=== PATIENT | male | born 1945 | race Caucasian/White ===

== ENCOUNTER 2016-06-11 06:17 | Day surgery (SDC) | payer OTHER ==
[2016-06-11 07:52] LABS: MCH 35.2 pg (25.7-33.7); MCHC 33.8 g/dl (32.0-35.9); MEAN CELL VOLUME 104.1 fl (80-96); MEAN PLT VOLUME 8.7 fl (7.5-11.1); PLATELET COUNT 116 K/MM3 (134-434); RDW 16.1 % (11.9-15.9); WHITE BLOOD COUNT 7.5 K/mm3 (4.0-10.0)
[2016-06-11] MEDS ORDERED: BORTEZOMIB (VELCADE) 2.5 MG/ML SUB-Q INJECTION SQ ONE (08:00)
[2016-06-11] MEDS ORDERED: ZOLEDRONIC ACID 4 MG in SODIUM CHLORIDE 100 ML IVPB ONE (08:00)
[2016-06-11 09:34] LABS: METAMYELOCYTE 1 % (0-2); TEAR DROP CELLS 1+
[2016-06-11 11:27] VITALS: BP 134/73; PULSE 102; BMI 30.8
[2016-06-11 12:03] VITALS: TEMP 97.4
== END 2016-06-11 12:00 | disposition home or self-care (01) ==
LOC: JONCCHEMO 06:17 → J7W 08:58 → JONCCHEMO 12:00
PROVIDERS: ATTEND Internal Medicine Hematology & Oncology
DX: Z51.11 Encounter for antineoplastic chemotherapy (principal); C90.01 Multiple myeloma in remission
CPT/HCPCS: 36415; 85025; 96401; 96413; J3489

== ENCOUNTER 2016-06-25 07:01 | Day surgery (SDC) | payer OTHER ==
[2016-06-25] MEDS ORDERED: BORTEZOMIB (VELCADE) 2.5 MG/ML SUB-Q INJECTION SQ ONE (08:00)
[2016-06-25 08:45] LABS: WHITE BLOOD COUNT 6.1 K/mm3 (4.0-10.0)
[2016-06-25 08:46] LABS: MCH 34.8 pg (25.7-33.7); MCHC 33.7 g/dl (32.0-35.9); MEAN CELL VOLUME 103.3 fl (80-96); MEAN PLT VOLUME 8.7 fl (7.5-11.1); PLATELET COUNT 125 K/MM3 (134-434); RDW 16.1 % (11.9-15.9)
[2016-06-25 12:28] VITALS: BP 129/72; PULSE 84; TEMP 98
== END 2016-06-25 14:38 | disposition home or self-care (01) ==
LOC: JONCCHEMO 07:01 → J7W 09:12 → JONCCHEMO 14:38
PROVIDERS: ATTEND Internal Medicine Hematology & Oncology
DX: Z51.11 Encounter for antineoplastic chemotherapy (principal); C90.02 Multiple myeloma in relapse
CPT/HCPCS: 96401; J9041; 36415; 85025

== ENCOUNTER 2016-07-08 07:02 | Day surgery (SDC) | payer OTHER ==
[2016-07-08] MEDS ORDERED: ACETAMINOPHEN 325 MG TABLET (FP) PO ONE (08:00)
[2016-07-08] MEDS ORDERED: DIPHENHYDRAMINE 25 MG in SODIUM CHLORIDE 50 ML IVPB ONE (08:00)
[2016-07-08] MEDS ORDERED: SODIUM CHLORIDE 250 ML IV ONE ×2 (08:00→12:00)
[2016-07-08 08:25] LABS: MCH 34.8 pg (25.7-33.7); MCHC 33.8 g/dl (32.0-35.9); MEAN PLT VOLUME 8.8 fl (7.5-11.1); PLATELET COUNT 116 K/MM3 (134-434); RDW 16.2 % (11.9-15.9)
[2016-07-08] MEDS ORDERED: IMMUNE GLOB GAM CAPRYLATE IVPB ONE (08:30)
[2016-07-08] MEDS ORDERED: IMMUNE GLOBULIN IVPB ONE (08:30)
[2016-07-08 09:47] VITALS: TEMP 98.1
[2016-07-08 10:36] LABS: CALCIUM 8.5 mg/dL (8.5-10.1); CREATININE 1.2 mg/dL (0.7-1.3)
[2016-07-08 10:40] LABS: ALBUMIN 3.5 g/dl (3.4-5.0); BILIRUBIN,DIRECT 0.1 mg/dL (0.0-0.2); BILIRUBIN,TOTAL 0.5 mg/dL (0.2-1.0); TOT PROT 5.8 g/dl (6.4-8.2); URIC ACID 3.4 mg/dL (2.6-7.2)
[2016-07-08 12:15] LABS: MAGNESIUM 2.3 mg/dL (1.8-2.4)
[2016-07-08 12:19] LABS: METAMYELOCYTE 2 % (0-2)
[2016-07-08 12:20] LABS: POLYCHROMASIA 1+
[2016-07-08 12:38] LABS: C-REACTIVE PROTEIN 0.7 MG/DL (0.00-0.3)
[2016-07-08 15:38] VITALS: BP 107/71; PULSE 68
[2016-07-10 00:09] LABS: A/G RATIO 1.4 (0.7-1.7); ALBUMIN 3.3 g/dL (2.9-4.4); BETA-2-MICROGLOBULIN 2.5 mg/L (0.6-2.4); GLOBULIN, TOTAL 2.4 g/dL (2.2-3.9); IGG IMMUNOGLOBULIN 339 mg/dL (700-1600); TOTAL PROTEIN 5.7 g/dL (6.0-8.5)
[2016-07-10 10:13] LABS: FREE KAP CHN UR 15.5 mg/L (1.35-24.19); FREE LAMB CHN UR 1.81 mg/L (0.24-6.66); KAPPA LAMBDA RATIO URIN 8.56 (2.04-10.37)
== END 2016-07-08 15:00 | disposition home or self-care (01) ==
LOC: JONCCHEMO 07:02 → J7W 09:04 → JONCCHEMO 15:00
PROVIDERS: ATTEND Internal Medicine Hematology & Oncology
PROC: 3E033GC Introduction of Other Therapeutic Substance into Peripheral Vein, Percutaneous Approach (ICD-10-PCS; principal; 2016-07-08)
DX: C90.00 Multiple myeloma not having achieved remission (principal)
CPT/HCPCS: 96365; 96366; J1561; 36415; 80048; 80076; 82232; 82306; 82784; 83615; 83735; 83883; 84155; 84165; 84550; 85025; 85651; 86140; J1459

== ENCOUNTER 2016-07-09 06:58 | Day surgery (SDC) | payer OTHER ==
[2016-07-09] MEDS ORDERED: ACETAMINOPHEN 325 MG TABLET (FP) PO ONE ×2 (08:00→09:30)
[2016-07-09] MEDS ORDERED: DIPHENHYDRAMINE 25 MG in SODIUM CHLORIDE 50 ML IVPB ONE (08:00)
[2016-07-09] MEDS ORDERED: BORTEZOMIB (VELCADE) 2.5 MG/ML SUB-Q INJECTION SQ ONE (08:00)
[2016-07-09] MEDS ORDERED: SODIUM CHLORIDE 250 ML IV ONE ×2 (08:00→12:00)
[2016-07-09] MEDS ORDERED: IMMUNE GLOB GAM CAPRYLATE IVPB ONE ×2 (08:30→10:00)
[2016-07-09] MEDS ORDERED: IMMUNE GLOBULIN IVPB ONE ×2 (08:30→10:00)
[2016-07-09] MEDS ORDERED: [UNRECOGNIZED DRUG - OTHER] IVPB ONE (08:30)
[2016-07-09] MEDS: ZOLEDRONIC ACID 4 MG in SODIUM CHLORIDE 100 ML IVPB ONE ×2 (09:28→15:22)
[2016-07-09 12:39] VITALS: TEMP 97.4
[2016-07-09 15:24] VITALS: BP 132/77; PULSE 86
== END 2016-07-09 15:26 | disposition home or self-care (01) ==
LOC: JONCCHEMO 06:58 → J7W 09:03 → JONCCHEMO 15:26
PROVIDERS: ATTEND Internal Medicine Hematology & Oncology
PROC: 3E01305 Introduction of Other Antineoplastic into Subcutaneous Tissue, Percutaneous Approach (ICD-10-PCS; principal; 2016-07-09)
PROC: 3E033GC Introduction of Other Therapeutic Substance into Peripheral Vein, Percutaneous Approach (ICD-10-PCS; 2016-07-09)
DX: Z51.11 Encounter for antineoplastic chemotherapy (principal); C90.00 Multiple myeloma not having achieved remission
CPT/HCPCS: 96365; 96366; 96367; 96401; J1459; J1561; J3489; J9041

== ENCOUNTER 2016-07-23 06:53 | Day surgery (SDC) | payer OTHER ==
[2016-07-23] MEDS ORDERED: BORTEZOMIB (VELCADE) 2.5 MG/ML SUB-Q INJECTION SQ ONE (08:00)
[2016-07-23 08:54] LABS: BASOPHIL 0.5 % (0-2.0); EOSINOPHIL 0.2 % (0-4.5); MCH 34.8 pg (25.7-33.7); MCHC 34.4 g/dl (32.0-35.9); MEAN PLT VOLUME 8.8 fl (7.5-11.1); PLATELET COUNT 113 K/MM3 (134-434); RDW 15.7 % (11.9-15.9); WHITE BLOOD COUNT 9.5 K/mm3 (4.0-10.0)
[2016-07-23 09:23] VITALS: BP 145/89; PULSE 65; TEMP 98.4
== END 2016-07-23 09:39 | disposition home or self-care (01) ==
LOC: JONCCHEMO 06:53 → J7W 09:05 → JONCCHEMO 09:39
PROVIDERS: ATTEND Internal Medicine Hematology & Oncology
DX: Z51.11 Encounter for antineoplastic chemotherapy (principal); C90.00 Multiple myeloma not having achieved remission
CPT/HCPCS: 96401; J9041; 36415; 85025

== ENCOUNTER 2016-08-06 07:08 | Day surgery (SDC) | payer OTHER ==
[2016-08-06] MEDS ORDERED: BORTEZOMIB (VELCADE) 2.5 MG/ML SUB-Q INJECTION SQ ONE (08:00)
[2016-08-06] MEDS ORDERED: ZOLEDRONIC ACID 4 MG in SODIUM CHLORIDE 100 ML IVPB ONE (08:00)
[2016-08-06 08:15] LABS: BASOPHIL 0.7 % (0-2.0); EOSINOPHIL 0.1 % (0-4.5); MCH 34.6 pg (25.7-33.7); MCHC 33.9 g/dl (32.0-35.9); MEAN CELL VOLUME 101.9 fl (80-96); MEAN PLT VOLUME 9.4 fl (7.5-11.1); PLATELET COUNT 105 K/MM3 (134-434); RDW 15.7 % (11.9-15.9); WHITE BLOOD COUNT 4.9 K/mm3 (4.0-10.0)
[2016-08-06 09:03] VITALS: BP 122/78; PULSE 86; TEMP 97.9
[2016-08-06 10:50] LABS: CALCIUM 8.4 mg/dL (8.5-10.1); CREATININE 1.5 mg/dL (0.7-1.3); URIC ACID 2.8 mg/dL (2.6-7.2)
[2016-08-06 11:11] LABS: ALBUMIN 3.3 g/dl (3.4-5.0); BILIRUBIN,DIRECT 0.1 mg/dL (0.0-0.2); BILIRUBIN,TOTAL 0.4 mg/dL (0.2-1.0); TOT PROT 6.9 g/dl (6.4-8.2)
== END 2016-08-06 18:59 | disposition home or self-care (01) ==
LOC: JONCCHEMO 07:08 → J7W 08:56 → JONCCHEMO 18:59
PROVIDERS: ATTEND Internal Medicine Hematology & Oncology
DX: Z51.11 Encounter for antineoplastic chemotherapy (principal); C90.01 Multiple myeloma in remission
CPT/HCPCS: 96401; J9041; 36415; 80048; 80076; 84550; 85025

== ENCOUNTER 2016-08-20 07:30 | Day surgery (SDC) | payer OTHER ==
[2016-08-20] MEDS ORDERED: BORTEZOMIB (VELCADE) 2.5 MG/ML SUB-Q INJECTION SQ ONE (08:00)
[2016-08-20 08:27] LABS: BASOPHIL 0.3 % (0-2.0); EOSINOPHIL 0.4 % (0-4.5); MCH 34.8 pg (25.7-33.7); MEAN CELL VOLUME 102.4 fl (80-96); MEAN PLT VOLUME 9.1 fl (7.5-11.1); PLATELET COUNT 122 K/MM3 (134-434); RDW 16.2 % (11.9-15.9); WHITE BLOOD COUNT 6.7 K/mm3 (4.0-10.0)
[2016-08-20 09:08] VITALS: BP 123/77; PULSE 77; TEMP 98.1
== END 2016-08-20 09:40 | disposition home or self-care (01) ==
LOC: JONCCHEMO 07:30 → J7W 09:02 → JONCCHEMO 09:40
PROVIDERS: ATTEND Internal Medicine Hematology & Oncology
DX: Z51.11 Encounter for antineoplastic chemotherapy (principal); C90.01 Multiple myeloma in remission
CPT/HCPCS: 96401; J9041; 36415; 85025

== ENCOUNTER 2016-09-03 07:35 | Day surgery (SDC) | payer OTHER ==
[2016-09-03] MEDS ORDERED: BORTEZOMIB (VELCADE) 2.5 MG/ML SUB-Q INJECTION SQ ONE (08:00)
[2016-09-03 08:39] LABS: EOSINOPHIL 0.4 % (0-4.5); MCH 34.4 pg (25.7-33.7); MCHC 33.1 g/dl (32.0-35.9); MEAN CELL VOLUME 103.9 fl (80-96); MEAN PLT VOLUME 9.2 fl (7.5-11.1); NEUTROPHILS 88.9 % (42.8-82.8); PLATELET COUNT 123 K/MM3 (134-434); RDW 16.9 % (11.9-15.9); WHITE BLOOD COUNT 4.8 K/mm3 (4.0-10.0)
[2016-09-03 09:23] VITALS: BP 121/73; PULSE 60; TEMP 98.2
[2016-09-03 10:52] LABS: ALBUMIN 3.6 g/dl (3.4-5.0); BILIRUBIN,DIRECT 0.1 mg/dL (0.0-0.2); BILIRUBIN,TOTAL 0.5 mg/dL (0.2-1.0); MAGNESIUM 2.4 mg/dL (1.8-2.4); TOT PROT 6.5 g/dl (6.4-8.2)
[2016-09-05 06:06] LABS: FREE LAMB CHN UR 5.67 mg/L (0.24-6.66); KAPPA LAMBDA RATIO URIN 18.34 (2.04-10.37)
== END 2016-09-03 09:48 | disposition home or self-care (01) ==
LOC: JONCCHEMO 07:35 → J7W 09:18 → JONCCHEMO 09:48
PROVIDERS: ATTEND Internal Medicine Hematology & Oncology
DX: Z51.11 Encounter for antineoplastic chemotherapy (principal); C90.00 Multiple myeloma not having achieved remission; E85.8 Other amyloidosis
CPT/HCPCS: 36415; 80076; 82784; 83615; 83735; 83883; 85025; 96401; J9041

== ENCOUNTER 2016-09-24 07:21 | Day surgery (SDC) | payer OTHER ==
[2016-09-24 08:51] LABS: BASOPHIL 0.5 % (0-2.0); EOSINOPHIL 0.1 % (0-4.5); MCH 34.4 pg (25.7-33.7); MCHC 33.4 g/dl (32.0-35.9); MEAN CELL VOLUME 102.8 fl (80-96); MEAN PLT VOLUME 8.1 fl (7.5-11.1); NEUTROPHILS 87.6 % (42.8-82.8); PLATELET COUNT 145 K/MM3 (134-434); RDW 16.4 % (11.9-15.9); WHITE BLOOD COUNT 5.9 K/mm3 (4.0-10.0)
[2016-09-24 09:15] LABS: ALBUMIN 3.8 g/dl (3.4-5.0); BILIRUBIN,DIRECT 0.2 mg/dL (0.0-0.2); BILIRUBIN,TOTAL 0.8 mg/dL (0.2-1.0); CALCIUM 9.5 mg/dL (8.5-10.1); CREATININE 1.6 mg/dL (0.7-1.3); TOT PROT 6.9 g/dl (6.4-8.2)
[2016-09-24] MEDS ORDERED: BORTEZOMIB (VELCADE) 2.5 MG/ML SUB-Q INJECTION SQ ONE (10:00)
[2016-09-24 11:13] VITALS: BP 108/79; PULSE 87; TEMP 97.8
== END 2016-09-24 11:14 | disposition home or self-care (01) ==
LOC: JONCCHEMO 07:21 → J7W 10:06 → JONCCHEMO 11:14
PROVIDERS: ATTEND Internal Medicine Hematology & Oncology
DX: Z51.11 Encounter for antineoplastic chemotherapy (principal); C90.01 Multiple myeloma in remission
CPT/HCPCS: 36415; 80053; 80076; 85025; 96401; J9041

== ENCOUNTER 2016-10-04 12:14 | Emergency (ER) | payer OTHER ==
[2016-10-04 12:18] VITALS: BP 160/76; PULSE 55; TEMP 98.2; BMI 29.8
[2016-10-04] MEDS ORDERED: OXYCODONE/APAP 5/325MG COMBO TABLET PO ONE (13:31)
[2016-10-04] MEDS ORDERED: OXYCODONE/APAP 5/325MG COMBO TABLET ONE (13:35)
--- NOTE | 2016-10-04 13:36 | PDOC ---
History of Present Illness - General Chief Complaint: Eye Problem Stated Complaint: EYE PROBLEM Time Seen by Provider: 10/04/16 12:33 History Source: Patient Exam Limitations: No Limitations - History of Present Illness Initial Comments: 10/04/16 13:54 came for evaluation of severe left eye pain that was onset 2 days ago. States has become more red, more painful, and had some whitish discharge this morning. Denies fever, states vision has become more cloudy, and has concerns as that was the postoperative eye a few years ago status post glaucoma window for acute glaucoma treatment. Patient denies any recent trauma, denies any recent illness , but states pain is exquisite and OxyContin at home did not help resolved. 10/04/16 17:53 Timing/Duration: other (2 days) Severity: moderate Associated Symptoms: reports: denies symptoms Past History - Travel Traveled outside of the country in the last 30 days: No Close contact w/someone who was outside of country & ill: No - Past Medical History Allergies/Adverse Reactions: Allergies Allergy/AdvReac Type Severity Reaction Status Date / Time No Known Allergies Allergy Unverified 10/04/16 12:18 Home Medications: Ambulatory Orders Allopurinol 300 mg PO ASDIR 10/04/16 Aspirin [ASA -] 81 mg PO DAILY 10/04/16 Aspirin/Dipyridamole [Aggrenox -] 1 combo PO BID 10/04/16 Atorvastatin Ca [Lipitor] 40 mg PO HS 10/04/16 Bortezomib [Velcade] 0.1 mg IV ASDIR 10/04/16 Dexamethasone [Decadron -] 4 mg PO Q6H 10/04/16 Gabapentin 400 mg PO ASDIR 10/04/16 Oxycodone Sr [Oxycontin] 10 mg PO BID 10/04/16 Pantoprazole Sodium [Protonix -] 40 mg PO DAILY 10/04/16 Prednisone 10 mg PO ASDIR 10/04/16 Zoledronic Acid [Zometa -] 4 mg IVPB ASDIR 10/04/16 Zoledronic Acid [Zometa] 4 mg IVPB ONCE 10/04/16 Cancer: Yes (MULTIPLE MYELOMA) Hypercholesterolemia: Yes Other medical history: GLAUCOMA - Psycho/Social/Smoking Cessation Hx Anxiety: No Suicidal Ideation: No Smoking History: Never smoked Hx Alcohol Use: No Drug/Substance Use Hx: No Substance Use Type: None Hx Substance Use Treatment: No Review of Systems - Review of Systems Able to Perform ROS?: Yes Is the patient limited Luxembourgish proficient: Yes Constitutional: Yes: Symptoms Reported, See HPI, Malaise. No: Fever HEENTM: Yes: Symptoms Reported, See HPI, Eye Pain, Other (glaucoma surgery 2 years ago in left eye). No: Recent change in vision Respiratory: Yes: See HPI All Other Systems: Reviewed and Negative *Physical Exam - Vital Signs Last Vital Signs Temp Pulse Resp BP Pulse Ox 98.2 F 55 L 20 160/76 96 10/04/16 12:15 10/04/16 12:15 10/04/16 12:15 10/04/16 12:15 10/04/16 12:15 - Physical Exam General Appearance: Yes: Nourished, Appropriately Dressed, Apparent Distress, Moderate Distress HEENT: positive: Normal ENT Inspection, TMs Normal, Pharynx Normal, Other ( injected conjunctiva and lids borders, with whitish drainage. Has some cloudiness to his cornea.). negative: REGINALD, Rhinorrhea, Sinus Tenderness Neck: positive: Tender, Supple. 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 We will add tobramycin drops to cover possible conjunctivitis. Patient understands plan, will use his OxyContin for pain relief as needed at home, and will follow-up tomorrow 10/04/16 17:56 *DC/Admit/Observation/Transfer Diagnosis at time of Disposition: Acute bacterial conjunctivitis of left eye - Discharge Dispostion Disposition: HOME Condition at time of disposition: Stable Admit: No - Referrals Referrals: Avtar Melchor MD [Primary Care Provider] - - Patient Instructions Printed Discharge Instructions: DI for Red Eye Additional Instructions: Rest, avoid rubbing eyes Wash hands frequently as this is very contagious Wash hands, use eye drops as directed, wash hands after use Do not share eyedrops with other person to may become infected as this will infect them Avoid contact with others until redness and discharge is gone from eyes. Pred forte 1% 1 drop to affected eye 4 times a day Followup with ophthalmology tomorrow for thorough exam
[2016-10-04] MEDS ORDERED: ONDANSETRON *ODT* 4 MG TABLET ONE (13:41)
[2016-10-04] MEDS ORDERED: ONDANSETRON *ODT* 4 MG TABLET SL ONE (13:52)
[2016-10-04] MEDS ORDERED: KETOROLAC TROMETHAMINE 60 MG/2 ML VIAL IM ONE (13:52)
[2016-10-04] MEDS ORDERED: KETOROLAC TROMETHAMINE 60 MG/2 ML VIAL ONE (13:53)
[2016-10-04] MEDS ORDERED: prednisoLONE ACETATE 1% OPHTH SUSP 5 ML BOTTLE OS STA (14:14)
[2016-10-04] MEDS ORDERED: TOBRAMYCIN 0.3% OPHTH SOLN 5 ML BOTTLE OD ONE (14:16)
[2016-10-04] MEDS ORDERED: TOBRAMYCIN 0.3% OPHTH SOLN 5 ML BOTTLE ONE (14:23)
== END 2016-10-04 14:34 | disposition home or self-care (01) ==
LOC: JERFT 12:14
PROC: 3E0233Z Introduction of Anti-inflammatory into Muscle, Percutaneous Approach (ICD-10-PCS; principal; 2016-10-04)
DX: H10.32 Unspecified acute conjunctivitis, left eye (principal); B96.89 Other specified bacterial agents as the cause of diseases classified elsewhere
CPT/HCPCS: 96372; 99281-25

== ENCOUNTER 2016-10-07 07:07 | Day surgery (SDC) | payer OTHER ==
[2016-10-07 09:11] LABS: BASOPHIL 0.9 % (0-2.0); MCH 34.2 pg (25.7-33.7); MCHC 33.1 g/dl (32.0-35.9); MEAN CELL VOLUME 103.4 fl (80-96); MEAN PLT VOLUME 8.3 fl (7.5-11.1); NEUTROPHILS 80.6 % (42.8-82.8); PLATELET COUNT 133 K/MM3 (134-434); RDW 17.2 % (11.9-15.9); WHITE BLOOD COUNT 8.8 K/mm3 (4.0-10.0)
[2016-10-07 09:36] LABS: ALBUMIN 3.7 g/dl (3.4-5.0); ALK PHOS 72 U/L (45-117); ANION GAP 6 (8-16); BILIRUBIN,TOTAL 0.7 mg/dL (0.2-1.0); CO2 28 mmol/L (21-32); CREATININE 1.2 mg/dL (0.7-1.3); GLUCOSE,RANDOM 113 mg/dL (74-106); MAGNESIUM 2.3 mg/dL (1.8-2.4); SGOT/AST 14 U/L (15-37); SGPT/ALT 20 U/L (12-78); TOT PROT 6.4 g/dl (6.4-8.2)
[2016-10-07] MEDS ORDERED: DIPHENHYDRAMINE 25 MG in SODIUM CHLORIDE 50 ML IVPB ONE (10:00)
[2016-10-07] MEDS ORDERED: ACETAMINOPHEN 325 MG TABLET (FP) PO ONE (10:00)
[2016-10-07] MEDS ORDERED: SODIUM CHLORIDE 250 ML IV ONE ×2 (10:00→14:45)
[2016-10-07 10:18] VITALS: TEMP 98.1
[2016-10-07] MEDS ORDERED: IMMUNE GLOBULIN IVPB SCH (10:30)
[2016-10-07 15:09] VITALS: PULSE 69
[2016-10-07 15:12] VITALS: BP 111/51
== END 2016-10-07 15:18 | disposition home or self-care (01) ==
LOC: JONCCHEMO 07:07 → J7W 10:08 → JONCCHEMO 15:18
PROVIDERS: ATTEND Internal Medicine Hematology & Oncology
PROC: 3E033GC Introduction of Other Therapeutic Substance into Peripheral Vein, Percutaneous Approach (ICD-10-PCS; principal; 2016-10-07)
PROC: 3E033GC Introduction of Other Therapeutic Substance into Peripheral Vein, Percutaneous Approach (ICD-10-PCS; 2016-10-07)
PROC: 3E033GC Introduction of Other Therapeutic Substance into Peripheral Vein, Percutaneous Approach (ICD-10-PCS; 2016-10-07)
DX: C90.00 Multiple myeloma not having achieved remission (principal)
CPT/HCPCS: 96365; 96366; 96375; J1561; 36415; 80053; 83735; 85025; J1459

== ENCOUNTER 2016-10-08 07:42 | Day surgery (SDC) | payer OTHER ==
[2016-10-08] MEDS ORDERED: BORTEZOMIB (VELCADE) 2.5 MG/ML SUB-Q INJECTION SQ ONE (10:00)
[2016-10-08] MEDS ORDERED: DIPHENHYDRAMINE 25 MG in SODIUM CHLORIDE 50 ML IVPB ONE (10:00)
[2016-10-08] MEDS ORDERED: SODIUM CHLORIDE 250 ML IV ONE ×3 (10:00→16:00)
[2016-10-08] MEDS ORDERED: ACETAMINOPHEN 325 MG TABLET (FP) PO ONE (10:00)
[2016-10-08] MEDS ORDERED: IMMUNE GLOBULIN IVPB SCH (10:30)
[2016-10-08 13:42] VITALS: BP 127/68; PULSE 60; TEMP 98.1
== END 2016-10-08 14:11 | disposition home or self-care (01) ==
LOC: JONCCHEMO 07:42 → J7W 08:49 → JONCCHEMO 14:11
PROVIDERS: ATTEND Internal Medicine Hematology & Oncology
PROC: 3E01305 Introduction of Other Antineoplastic into Subcutaneous Tissue, Percutaneous Approach (ICD-10-PCS; principal; 2016-10-08)
PROC: 3E033GC Introduction of Other Therapeutic Substance into Peripheral Vein, Percutaneous Approach (ICD-10-PCS; 2016-10-08)
DX: Z51.11 Encounter for antineoplastic chemotherapy (principal); C90.00 Multiple myeloma not having achieved remission
CPT/HCPCS: 96365; 96366; 96375; 96401; J1561; J9041; J1459

== ENCOUNTER 2016-10-22 07:33 | Day surgery (SDC) | payer OTHER ==
[2016-10-22 08:40] LABS: BASOPHIL 0.4 % (0-2.0); EOSINOPHIL 0.7 % (0-4.5); MCH 34.2 pg (25.7-33.7); MEAN CELL VOLUME 100.7 fl (80-96); MEAN PLT VOLUME 9.8 fl (7.5-11.1); NEUTROPHILS 89.4 % (42.8-82.8); PLATELET COUNT 114 K/MM3 (134-434); WHITE BLOOD COUNT 6.9 K/mm3 (4.0-10.0)
[2016-10-22 09:04] LABS: ALBUMIN 3.3 g/dl (3.4-5.0); ANION GAP 9 (8-16); BILIRUBIN,TOTAL 0.5 mg/dL (0.2-1.0); CALCIUM 8.9 mg/dL (8.5-10.1); CO2 23 mmol/L (21-32); CREATININE 1.4 mg/dL (0.7-1.3); GLUCOSE,RANDOM 192 mg/dL (74-106); MAGNESIUM 2.2 mg/dL (1.8-2.4); SGOT/AST 24 U/L (15-37); SGPT/ALT 19 U/L (12-78); TOT PROT 7.6 g/dl (6.4-8.2)
[2016-10-22 09:07] LABS: ALK PHOS 68 U/L (45-117)
[2016-10-22 09:47] VITALS: BP 110/71; PULSE 52; TEMP 97.9
[2016-10-22] MEDS ORDERED: BORTEZOMIB (VELCADE) 2.5 MG/ML SUB-Q INJECTION SQ ONE (10:00)
== END 2016-10-22 09:58 | disposition home or self-care (01) ==
LOC: JONCCHEMO 07:33 → J7W 09:39 → JONCCHEMO 09:58
PROVIDERS: ATTEND Internal Medicine Hematology & Oncology
DX: Z51.11 Encounter for antineoplastic chemotherapy (principal); C90.00 Multiple myeloma not having achieved remission; I10 Essential (primary) hypertension; E78.00 Pure hypercholesterolemia, unspecified; H40.9 Unspecified glaucoma; G62.9 Polyneuropathy, unspecified; Z86.73 Personal history of transient ischemic attack (TIA), and cerebral infarction without residual deficits; M51.36 Other intervertebral disc degeneration, lumbar region
CPT/HCPCS: 36415; 80053; 83735; 85025; 96401; J9041

== ENCOUNTER 2016-11-05 07:47 | Day surgery (SDC) | payer OTHER ==
[2016-11-05] MEDS ORDERED: BORTEZOMIB (VELCADE) 2.5 MG/ML SUB-Q INJECTION SQ ONE (08:00)
[2016-11-05 08:32] LABS: BASOPHIL 0.6 % (0-2.0); MCH 33.7 pg (25.7-33.7); MCHC 33.6 g/dl (32.0-35.9); MEAN CELL VOLUME 100.4 fl (80-96); MEAN PLT VOLUME 8.9 fl (7.5-11.1); NEUTROPHILS 91.2 % (42.8-82.8); PLATELET COUNT 101 K/MM3 (134-434); RDW 16.6 % (11.9-15.9); WHITE BLOOD COUNT 8.3 K/mm3 (4.0-10.0)
[2016-11-05 09:02] LABS: ALBUMIN 3.3 g/dl (3.4-5.0); ALK PHOS 71 U/L (45-117); ANION GAP 9 (8-16); BILIRUBIN,DIRECT 0.1 mg/dL (0.0-0.2); BILIRUBIN,TOTAL 0.4 mg/dL (0.2-1.0); CALCIUM 9.1 mg/dL (8.5-10.1); CO2 24 mmol/L (21-32); CREATININE 1.2 mg/dL (0.7-1.3); GLUCOSE,RANDOM 175 mg/dL (74-106); MAGNESIUM 2.4 mg/dL (1.8-2.4); SGOT/AST 17 U/L (15-37); SGPT/ALT 19 U/L (12-78); TOT PROT 6.9 g/dl (6.4-8.2)
[2016-11-05 09:21] VITALS: TEMP 98.2
[2016-11-05 09:33] VITALS: BP 115/76; PULSE 52
== END 2016-11-05 09:42 | disposition home or self-care (01) ==
LOC: JONCCHEMO 07:47 → J7W 09:14 → JONCCHEMO 09:42
PROVIDERS: ATTEND Internal Medicine Hematology & Oncology
DX: Z51.11 Encounter for antineoplastic chemotherapy (principal); C90.00 Multiple myeloma not having achieved remission
CPT/HCPCS: 96401; J9041; 36415; 80053; 80076; 83735; 85025

== ENCOUNTER 2016-11-19 07:29 | Day surgery (SDC) | payer OTHER ==
[2016-11-19] MEDS ORDERED: BORTEZOMIB (VELCADE) 2.5 MG/ML SUB-Q INJECTION SQ ONE (08:00)
[2016-11-19 09:00] LABS: BASOPHIL 0.3 % (0-2.0); EOSINOPHIL 0.1 % (0-4.5); MCHC 33.1 g/dl (32.0-35.9); MEAN CELL VOLUME 102.7 fl (80-96); MEAN PLT VOLUME 8.7 fl (7.5-11.1); NEUTROPHILS 92.1 % (42.8-82.8); PLATELET COUNT 109 K/MM3 (134-434); RDW 16.6 % (11.9-15.9); WHITE BLOOD COUNT 9.1 K/mm3 (4.0-10.0)
[2016-11-19 09:25] LABS: ALBUMIN 3.4 g/dl (3.4-5.0); ANION GAP 6 (8-16); BILIRUBIN,DIRECT 0.2 mg/dL (0.0-0.2); BILIRUBIN,TOTAL 0.5 mg/dL (0.2-1.0); CALCIUM 9.2 mg/dL (8.5-10.1); CO2 28 mmol/L (21-32); CREATININE 1.2 mg/dL (0.7-1.3); GLUCOSE,RANDOM 175 mg/dL (74-106); MAGNESIUM 2.5 mg/dL (1.8-2.4); SGOT/AST 21 U/L (15-37); SGPT/ALT 30 U/L (12-78); TOT PROT 6.8 g/dl (6.4-8.2)
[2016-11-19 09:26] LABS: ALK PHOS 74 U/L (45-117)
[2016-11-19 14:23] VITALS: BP 127/74; PULSE 58; TEMP 98.5
== END 2016-11-19 10:30 | disposition home or self-care (01) ==
LOC: JONCCHEMO 07:29 → J7W 09:32 → JONCCHEMO 10:30
PROVIDERS: ATTEND Internal Medicine Hematology & Oncology
DX: Z51.11 Encounter for antineoplastic chemotherapy (principal); C90.00 Multiple myeloma not having achieved remission
CPT/HCPCS: 36415; 80053; 80076; 83735; 85025; 96401; J9041

== ENCOUNTER 2016-12-03 08:00 | Day surgery (SDC) | payer OTHER ==
[2016-12-03 08:41] LABS: MCH 34.8 pg (25.7-33.7); MCHC 34.1 g/dl (32.0-35.9); MEAN CELL VOLUME 102.2 fl (80-96); MEAN PLT VOLUME 8.9 fl (7.5-11.1); PLATELET COUNT 137 K/MM3 (134-434); RDW 17.3 % (11.9-15.9); WHITE BLOOD COUNT 8.4 K/mm3 (4.0-10.0)
[2016-12-03 09:08] LABS: ALBUMIN 3.5 g/dl (3.4-5.0); ANION GAP 10 (8-16); BILIRUBIN,DIRECT 0.2 mg/dL (0.0-0.2); BILIRUBIN,TOTAL 0.8 mg/dL (0.2-1.0); CALCIUM 9.5 mg/dL (8.5-10.1); CO2 25 mmol/L (21-32); CREATININE 1.2 mg/dL (0.7-1.3); GLUCOSE,RANDOM 176 mg/dL (74-106); MAGNESIUM 2.3 mg/dL (1.8-2.4); SGOT/AST 12 U/L (15-37); SGPT/ALT 24 U/L (12-78); TOT PROT 6.5 g/dl (6.4-8.2)
[2016-12-03 09:09] LABS: ALK PHOS 79 U/L (45-117)
[2016-12-03 09:36] VITALS: BP 115/68; PULSE 65; TEMP 97.7
[2016-12-03] MEDS ORDERED: BORTEZOMIB (VELCADE) 2.5 MG/ML SUB-Q INJECTION SQ ONE (10:00)
[2016-12-03 12:46] LABS: METAMYELOCYTE 2 % (0-2); MYELOCYTE 1 % (0-2)
== END 2016-12-03 10:30 | disposition home or self-care (01) ==
LOC: JONCCHEMO 08:00 → J7W 09:08 → JONCCHEMO 10:30
PROVIDERS: ATTEND Internal Medicine Hematology & Oncology
DX: Z51.11 Encounter for antineoplastic chemotherapy (principal); C90.02 Multiple myeloma in relapse; I10 Essential (primary) hypertension; E78.00 Pure hypercholesterolemia, unspecified; H40.9 Unspecified glaucoma; G62.9 Polyneuropathy, unspecified; Z86.73 Personal history of transient ischemic attack (TIA), and cerebral infarction without residual deficits; M51.36 Other intervertebral disc degeneration, lumbar region
CPT/HCPCS: 36415; 80053; 80076; 83735; 85025; 96401; J9041

== ENCOUNTER 2016-12-17 07:46 | Day surgery (SDC) | payer OTHER ==
[2016-12-17 08:33] LABS: BASOPHIL 0.6 % (0-2.0); MCH 34.5 pg (25.7-33.7); MCHC 33.3 g/dl (32.0-35.9); MEAN CELL VOLUME 103.7 fl (80-96); MEAN PLT VOLUME 8.9 fl (7.5-11.1); NEUTROPHILS 91.7 % (42.8-82.8); PLATELET COUNT 119 K/MM3 (134-434); RDW 17.8 % (11.9-15.9); WHITE BLOOD COUNT 9.8 K/mm3 (4.0-10.0)
[2016-12-17 09:05] LABS: ALBUMIN 3.6 g/dl (3.4-5.0); ALK PHOS 75 U/L (45-117); ANION GAP 4 (8-16); BILIRUBIN,DIRECT 0.2 mg/dL (0.0-0.2); BILIRUBIN,TOTAL 0.8 mg/dL (0.2-1.0); CALCIUM 8.9 mg/dL (8.5-10.1); CO2 26 mmol/L (21-32); CREATININE 1.1 mg/dL (0.7-1.3); GLUCOSE,RANDOM 181 mg/dL (74-106); MAGNESIUM 2.4 mg/dL (1.8-2.4); SGOT/AST 12 U/L (15-37); SGPT/ALT 22 U/L (12-78); TOT PROT 6.5 g/dl (6.4-8.2)
[2016-12-17 09:19] VITALS: TEMP 97.6
[2016-12-17 09:21] VITALS: BP 124/79; PULSE 61
[2016-12-17] MEDS ORDERED: BORTEZOMIB (VELCADE) 2.5 MG/ML SUB-Q INJECTION SQ ONE (10:00)
== END 2016-12-17 09:27 | disposition home or self-care (01) ==
LOC: JONCCHEMO 07:46 → J7W 09:02 → JONCCHEMO 09:27
PROVIDERS: ATTEND Internal Medicine Hematology & Oncology
DX: Z51.11 Encounter for antineoplastic chemotherapy (principal); C90.00 Multiple myeloma not having achieved remission
CPT/HCPCS: 36415; 80053; 80076; 83735; 85025; 96401; J9041

== ENCOUNTER 2016-12-30 07:34 | Day surgery (SDC) | payer OTHER ==
[2016-12-30] MEDS ORDERED: SODIUM CHLORIDE 250 ML IV ONE ×2 (08:00→12:00)
[2016-12-30] MEDS ORDERED: ACETAMINOPHEN 325 MG TABLET (FP) PO ONE (08:00)
[2016-12-30] MEDS ORDERED: DIPHENHYDRAMINE 25 MG in SODIUM CHLORIDE 50 ML IVPB ONE (08:00)
[2016-12-30] MEDS ORDERED: IMMUNE GLOBULIN IVPB ONE (08:30)
[2016-12-30] MEDS ORDERED: IMMUNE GLOB GAM CAPRYLATE IVPB ONE (08:30)
[2016-12-30 08:54] LABS: MCH 34.4 pg (25.7-33.7); MCHC 33.4 g/dl (32.0-35.9); MEAN CELL VOLUME 103.2 fl (80-96); MEAN PLT VOLUME 8.5 fl (7.5-11.1); PLATELET COUNT 122 K/MM3 (134-434); RDW 17.8 % (11.9-15.9); WHITE BLOOD COUNT 9.9 K/mm3 (4.0-10.0)
[2016-12-30 09:20] LABS: ALBUMIN 3.4 g/dl (3.4-5.0); ANION GAP 9 (8-16); BILIRUBIN,DIRECT 0.1 mg/dL (0.0-0.2); BILIRUBIN,TOTAL 0.7 mg/dL (0.2-1.0); CALCIUM 8.7 mg/dL (8.5-10.1); CO2 27 mmol/L (21-32); GLUCOSE,RANDOM 127 mg/dL (74-106); MAGNESIUM 2.5 mg/dL (1.8-2.4); SGOT/AST 16 U/L (15-37); SGPT/ALT 30 U/L (12-78); TOT PROT 6.1 g/dl (6.4-8.2)
[2016-12-30 09:21] LABS: ALK PHOS 81 U/L (45-117)
[2016-12-30 10:17] VITALS: TEMP 97.7
[2016-12-30 11:56] LABS: MYELOCYTE 1 % (0-2); TOTAL CELLS COUNTED 100
[2016-12-30 17:24] VITALS: BP 128/64; PULSE 59
== END 2016-12-30 14:40 | disposition home or self-care (01) ==
LOC: JONCCHEMO 07:34 → J7W 09:43 → JONCCHEMO 14:40
PROVIDERS: ATTEND Internal Medicine Hematology & Oncology
PROC: 3E033WK Introduction of Immunostimulator into Peripheral Vein, Percutaneous (ICD-10-PCS; principal; 2016-12-30)
PROC: 3E033GC Introduction of Other Therapeutic Substance into Peripheral Vein, Percutaneous Approach (ICD-10-PCS; 2016-12-30)
PROC: 3E0337Z Introduction of Electrolytic and Water Balance Substance into Peripheral Vein, Percutaneous Approach (ICD-10-PCS; 2016-12-30)
DX: C90.00 Multiple myeloma not having achieved remission (principal)
CPT/HCPCS: 36415; 80053; 80076; 83735; 85025; 96361; 96365; 96366; 96367; 96375; 96415; 96417; J1459; J1561

== ENCOUNTER 2016-12-31 07:25 | Day surgery (SDC) | payer OTHER ==
[2016-12-31] MEDS ORDERED: BORTEZOMIB (VELCADE) 2.5 MG/ML SUB-Q INJECTION SQ ONE (08:00)
[2016-12-31] MEDS ORDERED: SODIUM CHLORIDE 250 ML IV ONE ×2 (08:30→14:00)
[2016-12-31] MEDS ORDERED: DIPHENHYDRAMINE 25 MG in SODIUM CHLORIDE 50 ML IVPB ONE (08:30)
[2016-12-31] MEDS ORDERED: ACETAMINOPHEN 325 MG TABLET (FP) PO ONE (08:30)
[2016-12-31] MEDS ORDERED: IMMUNE GLOB GAM CAPRYLATE IVPB ONE (09:00)
[2016-12-31] MEDS ORDERED: IMMUNE GLOBULIN IVPB ONE (09:00)
[2016-12-31 12:40] VITALS: TEMP 98.1
[2016-12-31 18:09] VITALS: BP 128/74; PULSE 55
== END 2016-12-31 14:40 | disposition home or self-care (01) ==
LOC: JONCCHEMO 07:25 → J7W 08:35 → JONCCHEMO 14:40
PROVIDERS: ATTEND Internal Medicine Hematology & Oncology
PROC: 3E01305 Introduction of Other Antineoplastic into Subcutaneous Tissue, Percutaneous Approach (ICD-10-PCS; principal; 2016-12-31)
PROC: 3E033WK Introduction of Immunostimulator into Peripheral Vein, Percutaneous (ICD-10-PCS; 2016-12-31)
PROC: 3E0337Z Introduction of Electrolytic and Water Balance Substance into Peripheral Vein, Percutaneous Approach (ICD-10-PCS; 2016-12-31)
DX: Z51.11 Encounter for antineoplastic chemotherapy (principal); C90.00 Multiple myeloma not having achieved remission
CPT/HCPCS: 96361; 96365; 96366; 96375; 96401; 96415; 96417; J1459; J1561; J9041

== ENCOUNTER 2017-01-13 08:01 | Day surgery (SDC) | payer OTHER ==
[2017-01-13 09:15] LABS: BASOPHIL 0.7 % (0-2.0); MCH 34.2 pg (25.7-33.7); MCHC 33.1 g/dl (32.0-35.9); MEAN CELL VOLUME 103.2 fl (80-96); MEAN PLT VOLUME 9.2 fl (7.5-11.1); NEUTROPHILS 88.5 % (42.8-82.8); PLATELET COUNT 100 K/MM3 (134-434); RDW 17.3 % (11.9-15.9); WHITE BLOOD COUNT 6.7 K/mm3 (4.0-10.0)
[2017-01-13 10:14] VITALS: BP 122/72
[2017-01-13 10:30] LABS: ALBUMIN 3.1 g/dl (3.4-5.0); ANION GAP 11 (8-16); BILIRUBIN,DIRECT 0.2 mg/dL (0.0-0.2); CALCIUM 8.8 mg/dL (8.5-10.1); CO2 24 mmol/L (21-32); CREATININE 1.2 mg/dL (0.7-1.3); GLUCOSE,RANDOM 241 mg/dL (74-106); MAGNESIUM 2.1 mg/dL (1.8-2.4); SGOT/AST 21 U/L (15-37); SGPT/ALT 28 U/L (12-78)
[2017-01-13 10:31] LABS: ALK PHOS 80 U/L (45-117); BILIRUBIN,TOTAL 0.6 mg/dL (0.2-1.0); TOT PROT 7.2 g/dl (6.4-8.2)
[2017-01-13] MEDS ORDERED: BORTEZOMIB (VELCADE) 2.5 MG/ML SUB-Q INJECTION SQ ONE (11:00)
[2017-01-13 13:56] VITALS: PULSE 59; TEMP 97.7
== END 2017-01-13 11:15 | disposition home or self-care (01) ==
LOC: JONCCHEMO 08:01 → J7W 09:59 → JONCCHEMO 11:15
PROVIDERS: ATTEND Internal Medicine Hematology & Oncology
DX: Z51.11 Encounter for antineoplastic chemotherapy (principal); C90.00 Multiple myeloma not having achieved remission
CPT/HCPCS: 36415; 80053; 80076; 83735; 85025; 96401; J9041

== ENCOUNTER 2017-01-28 07:18 | Day surgery (SDC) | payer OTHER ==
[2017-01-28 08:39] LABS: BASOPHIL 0.6 % (0-2.0); EOSINOPHIL 0.1 % (0-4.5); MCH 34.6 pg (25.7-33.7); MCHC 33.4 g/dl (32.0-35.9); MEAN CELL VOLUME 103.5 fl (80-96); MEAN PLT VOLUME 8.4 fl (7.5-11.1); PLATELET COUNT 96 K/MM3 (134-434); RDW 17.4 % (11.9-15.9); WHITE BLOOD COUNT 6.7 K/mm3 (4.0-10.0)
[2017-01-28 09:04] LABS: ALBUMIN 3.2 g/dl (3.4-5.0); ALK PHOS 91 U/L (45-117); ANION GAP 8 (8-16); BILIRUBIN,DIRECT 0.1 mg/dL (0.0-0.2); BILIRUBIN,TOTAL 0.5 mg/dL (0.2-1.0); CALCIUM 8.6 mg/dL (8.5-10.1); CO2 26 mmol/L (21-32); CREATININE 1.2 mg/dL (0.7-1.3); GLUCOSE,RANDOM 221 mg/dL (74-106); MAGNESIUM 2.3 mg/dL (1.8-2.4); SGOT/AST 24 U/L (15-37); SGPT/ALT 42 U/L (12-78); TOT PROT 6.6 g/dl (6.4-8.2)
[2017-01-28] MEDS ORDERED: BORTEZOMIB (VELCADE) 2.5 MG/ML SUB-Q INJECTION SQ ONE (10:00)
[2017-01-28 18:20] VITALS: TEMP 98.3
[2017-01-28 18:22] VITALS: BP 132/84; PULSE 55
[2017-01-30 00:06] LABS: PARIETAL CELL AB SCREEN 12.7 Units (0.0-20.0)
== END 2017-01-28 09:35 | disposition home or self-care (01) ==
LOC: JONCCHEMO 07:18 → J7W 09:20 → JONCCHEMO 09:35
PROVIDERS: ATTEND Internal Medicine Hematology & Oncology
DX: Z51.11 Encounter for antineoplastic chemotherapy (principal); C90.00 Multiple myeloma not having achieved remission
CPT/HCPCS: 36415; 80053; 80076; 83516; 83735; 85025; 86340; 96401; J9041

== ENCOUNTER 2017-03-08 07:13 | Day surgery (SDC) | payer OTHER ==
[2017-03-08 09:00] LABS: MCH 34.2 pg (25.7-33.7); MCHC 32.7 g/dl (32.0-35.9); MEAN CELL VOLUME 104.6 fl (80-96); PLATELET COUNT 92 K/MM3 (134-434); RDW 17.4 % (11.9-15.9); WHITE BLOOD COUNT 8.7 K/mm3 (4.0-10.0)
[2017-03-08 09:20] LABS: ALBUMIN 3.4 g/dl (3.4-5.0); ALK PHOS 105 U/L (45-117); ANION GAP 10 (8-16); BILIRUBIN,DIRECT 0.2 mg/dL (0.0-0.2); BILIRUBIN,TOTAL 0.6 mg/dL (0.2-1.0); CALCIUM 8.1 mg/dL (8.5-10.1); CO2 25 mmol/L (21-32); CREATININE 1.3 mg/dL (0.7-1.3); MAGNESIUM 2.4 mg/dL (1.8-2.4); SGOT/AST 65 U/L (15-37); SGPT/ALT 108 U/L (12-78); TOT PROT 6.3 g/dl (6.4-8.2)
[2017-03-08 09:31] LABS: GLUCOSE,RANDOM 369 mg/dL (74-106)
[2017-03-08] MEDS ORDERED: BORTEZOMIB (VELCADE) 2.5 MG/ML SUB-Q INJECTION SQ ONE (10:00)
[2017-03-08 10:24] LABS: INR 0.83 (0.82-1.09); PROTHROMBIN TIME (PATIENT) 9.4 SEC (9.98-11.88)
[2017-03-08 11:55] LABS: METAMYELOCYTE 2 % (0-2)
[2017-03-08 11:56] LABS: MYELOCYTE 3 % (0-2); PLATELET COMMENTS NO CLUMPING NOTED; PLATELET ESTIMATE DECREASED
[2017-03-08] MEDS ORDERED: INSULIN (NOVOLOG) ASPART 100 UNITS/ML 10ML VIAL SQ ONE (13:00)
[2017-03-08 13:33] VITALS: BP 151/87; PULSE 70; TEMP 97.9
== END 2017-03-08 10:30 | disposition home or self-care (01) ==
LOC: JONCCHEMO 07:13 → J7W 09:37 → JONCCHEMO 10:30
PROVIDERS: ATTEND Internal Medicine Hematology & Oncology
DX: Z51.11 Encounter for antineoplastic chemotherapy (principal); C90.01 Multiple myeloma in remission
CPT/HCPCS: 36415; 80053; 80076; 83735; 85025; 85610; 85730; 96401; J9041

== ENCOUNTER 2017-03-22 14:04 | Inpatient (IN) | payer OTHER ==
[2017-03-22 14:21] VITALS: BMI 29.6
--- NOTE | 2017-03-22 14:22 | PDOC ---
History of Present Illness - General Chief Complaint: Shortness of Breath Stated Complaint: SOB Time Seen by Provider: 03/22/17 14:21 Past History - Past Medical History Allergies/Adverse Reactions: Allergies Allergy/AdvReac Type Severity Reaction Status Date / Time No Known Allergies Allergy Unverified 03/22/17 14:21 Home Medications: Ambulatory Orders Allopurinol 300 mg PO ASDIR 10/04/16 Aspirin [ASA -] 81 mg PO DAILY 10/04/16 Aspirin/Dipyridamole [Aggrenox -] 1 combo PO BID 10/04/16 Atorvastatin Ca [Lipitor] 40 mg PO HS 10/04/16 Bortezomib [Velcade] 0.1 mg IV ASDIR 10/04/16 Dexamethasone [Decadron -] 4 mg PO Q6H 10/04/16 Gabapentin 400 mg PO ASDIR 10/04/16 Oxycodone Sr [Oxycontin] 10 mg PO BID 10/04/16 Pantoprazole Sodium [Protonix -] 40 mg PO DAILY 10/04/16 Prednisone 10 mg PO ASDIR 10/04/16 Zoledronic Acid [Zometa -] 4 mg IVPB ASDIR 10/04/16 Dorzolamide HCl [Trusopt 2%] 1 drop OD DAILY 02/11/17 Travoprost [Travatan Z] 5 ml OP DAILY 02/11/17 Cancer: Yes (MULTIPLE MYELOMA) COPD: Yes (tia) HTN: Yes Hypercholesterolemia: Yes Other medical history: glaucoma - Suicide/Smoking/Psychosocial Hx Smoking History: Unknown if ever smoked Have you smoked in the past 12 months: No Information on smoking cessation initiated: No Hx Alcohol Use: No Drug/Substance Use Hx: No Substance Use Type: None Hx Substance Use Treatment: No *Physical Exam - Vital Signs Last Vital Signs Temp Pulse Resp BP Pulse Ox 98.7 F 59 L 18 114/83 95 03/22/17 14:09 03/22/17 14:09 03/22/17 14:09 03/22/17 14:09 03/22/17 14:09 *DC/Admit/Observation/Transfer - Referrals Referrals: Avtar Melchor MD [Primary Care Provider] - - Patient Instructions - Post Discharge Activity - Attestations Physician Attestion: 03/22/17 14:22 I, Dr. Nicolas Lares, attest that this document has been prepared under my direction and personally reviewed by me in its entirety. I further attest, that it accurately reflects all work, treatment, procedures and medical decision -making performed by me.
--- NOTE | 2017-03-22 14:59 | PDOC ---
Attending Attestation - Resident Resident Name: Jamaica Montano - ED Attending Attestation I have performed the following: I have examined & evaluated the patient, The case was reviewed & discussed with the resident, I agree w/resident's findings & plan, Exceptions are as noted - Medical Decision Making 03/22/17 14:59 I, Dr. Nicolas Lares, attest that this document has been prepared under my direction and personally reviewed by me in its entirety. I further attest, that it accurately reflects all work, treatment, procedures and medical decision -making performed by me. <Nicolas Lares - Last Filed: 03/22/17 14:59> - HPI HPI: 03/22/17 15:01 The patient is a 71 year old male, with a significant past medical history of multiple myeloma(on Velcade and Dex therapy), hypertension, hyperlipidemia, TIA and glaucoma, who presents to the emergency department BIB with shortness of breath for several days. Per EMS, patient was found to be tachycardic in the 180s at home, given 20 Cardizem IV push for new onset AFib. The patient reports he has been experiencing shortness of breath and a chest pressure for several days. He reports his SOB is exacerbated with exertion. He reports increased fatigue, back pain, and lower extremity edema(for which Dr. Gomez placed him on Lasix for. Patient reports his last Chemotherapy session was 5 days ago. The patient denies any fever, chills, cough, headache, or dizziness. He denies any abdominal pain, nausea, vomiting, diarrhea, constipation, or changes in urination. Allergies: NKDA Past Surgical History: No Social History: Former smoker. No ETOH or recreational drug use. PCP: Dr. Melchor Oncologist: Dr. Gomez - Physicial Exam PE: 03/22/17 15:01 GENERAL: Awake, alert, and fully oriented, in no acute distress HEAD: No signs of trauma EYES: PERRLA, EOMI, sclera anicteric, conjunctiva clear ENT: Auricles normal inspection, hearing grossly normal, nares patent, oropharynx clear without exudates. Moist mucosa NECK: Mild JVD. Normal ROM, supple, no lymphadenopathy, or masses LUNGS: Diffuse crackles. No wheezes. HEART: Tachycardic, irregularly irregular, normal S1 and S2, no murmurs, rubs or gallops ABDOMEN: Soft, nontender, normoactive bowel sounds. No guarding, no rebound. No masses EXTREMITIES: Normal range of motion, no edema. No clubbing or cyanosis. No cords, erythema, or tenderness NEUROLOGICAL: Cranial nerves II through XII grossly intact. Normal speech, normal gait SKIN: Warm, Dry, normal turgor, no rashes or lesions noted. - Medical Decision Making Documentation prepared by Gareth Perkins, acting as medical sonographer for Nicolas Lares DO. <Gareth Perkins - Last Filed: 03/22/17 15:02> Heart Score/ECG Review - ECG Intrepretation Comment:: 03/22/17 15:01 Vent Rate: 117 bpm IMPRESSION: Atrial fibrillation with rapid ventricular response. Minimal voltage criteria for LVH. may be normal variant. Abnormal QRS-T angle, consider promart T wave abnormality. <Gareth Perkins - Last Filed: 03/22/17 15:02>
[2017-03-22] MEDS ORDERED: dilTIAZem HCL 60 MG TABLET (FP) PO ONE (15:06)
[2017-03-22 15:17] LABS: BASOPHIL 0.9 % (0-2.0); MCH 35.2 pg (25.7-33.7); MCHC 34.2 g/dl (32.0-35.9); MEAN CELL VOLUME 102.8 fl (80-96); MEAN PLT VOLUME 10.3 fl (7.5-11.1); NEUTROPHILS 87.9 % (42.8-82.8); PLATELET COUNT 91 K/MM3 (134-434); RDW 16.4 % (11.9-15.9); WHITE BLOOD COUNT 8.5 K/mm3 (4.0-10.0)
[2017-03-22] MEDS ORDERED: dilTIAZem HCL 60 MG TABLET (FP) ONE (15:26)
[2017-03-22 15:48] LABS: SGOT/AST 69 U/L (15-37); SGPT/ALT 169 U/L (12-78)
[2017-03-22] MEDS ORDERED: dilTIAZem HCL 50 MG/10 ML - 10 ML VIAL IVPUSH ONE (15:56)
--- NOTE | 2017-03-22 15:59 | PDOC ---
History of Present Illness - General Chief Complaint: Shortness of Breath Stated Complaint: SOB Time Seen by Provider: 03/22/17 14:21 - History of Present Illness Initial Comments: 03/25/17 06:47 Patient is a 71 y.o. male with a PMH of Multiple Myeloma (s/p chemotherapy) HTN , DLD presents to the ED today c/o palpatations. Patient notes he has had increased dyspnea on exertion which is relieved by rest that he noticed around the time of his most recent (and final) chemotherapy treatment five days previous. Patient denies fevers, chills, abdominal pain, nausea/vomiting and diarrhea constipation. En route to the ED, patient was found to be in AFib and given 20 Cardizem IV NKDA Surgical: Denies Social: (-) nicotine (previous smoker, quit > 10 years previous), denies alcohol , denies recreational drugs PMD: Dr. Melchor Oncologist: Dr. Gomez Past History - Past Medical History Allergies/Adverse Reactions: Allergies Allergy/AdvReac Type Severity Reaction Status Date / Time No Known Allergies Allergy Unverified 03/22/17 14:21 Home Medications: Ambulatory Orders Allopurinol 300 mg PO ASDIR 10/04/16 Aspirin [ASA -] 81 mg PO DAILY 10/04/16 Aspirin/Dipyridamole [Aggrenox -] 1 combo PO BID 10/04/16 Atorvastatin Ca [Lipitor] 40 mg PO HS 10/04/16 Bortezomib [Velcade] 0.1 mg IV ASDIR 10/04/16 Dexamethasone [Decadron -] 4 mg PO Q6H 10/04/16 Gabapentin 400 mg PO ASDIR 10/04/16 Oxycodone Sr [Oxycontin] 10 mg PO BID 10/04/16 Pantoprazole Sodium [Protonix -] 40 mg PO DAILY 10/04/16 Prednisone 10 mg PO ASDIR 10/04/16 Zoledronic Acid [Zometa -] 4 mg IVPB ASDIR 10/04/16 Dorzolamide HCl [Trusopt 2%] 1 drop OD DAILY 02/11/17 Travoprost [Travatan Z] 5 ml OP DAILY 02/11/17 Furosemide [Lasix] 20 mg PO DAILY 03/22/17 Cancer: Yes (MULTIPLE MYELOMA) COPD: Yes (tia) HTN: Yes Hypercholesterolemia: Yes Other medical history: glaucoma - Suicide/Smoking/Psychosocial Hx Smoking History: Unknown if ever smoked Have you smoked in the past 12 months: No Information on smoking cessation initiated: No Hx Alcohol Use: No Drug/Substance Use Hx: No Substance Use Type: None Hx Substance Use Treatment: No Review of Systems - Review of Systems Constitutional: No: Chills, Fever Respiratory: Yes: SOB with Exertion Cardiac (ROS): Yes: Lightheadedness, Palpitations ABD/GI: No: Constipated, Diarrhea, Nausea, Vomiting *Physical Exam - Vital Signs Last Vital Signs Temp Pulse Resp BP Pulse Ox 98.7 F 124 H 18 114/83 98 03/22/17 14:09 03/22/17 15:00 03/22/17 14:09 03/22/17 14:09 03/22/17 15:00 - Physical Exam General Appearance: Yes: Nourished, Appropriately Dressed Neck: positive: Trachea midline, Supple Respiratory/Chest: positive: Lungs Clear Cardiovascular: positive: S1, S2 Gastrointestinal/Abdominal: positive: Normal Bowel Sounds, Soft Extremity: positive: Normal Capillary Refill, Normal Inspection Integumentary: positive: Normal Color, Dry, Warm Neurologic: positive: patient liaison II-XII NML intact, Fully Oriented, Alert ED Treatment Course - LABORATORY CBC & Chemistry Diagram: 03/25/17 05:35 03/25/17 05:35 - ADDITIONAL ORDERS Additional order review: 03/22/17 14:39 RBC 3.99 L MCV 102.8 H MCHC 34.2 RDW 16.4 H MPV 10.3 D Neutrophils % 87.9 H Lymphocytes % 5.4 L Monocytes % 5.8 D Eosinophils % 0.0 Basophils % 0.9 - Medications Given in the ED: ED Medications Discontinued Medications Generic Name Dose Route Start Last Admin Trade Name Freq PRN Reason Stop Dose Admin Diltiazem HCl 60 mg 03/22/17 15:06 03/22/17 15:29 Cardizem - PO 03/22/17 15:07 60 mg ONCE ONE Administration Medical Decision Making - Medical Decision Making 03/25/17 13:41 Patient is a 71 y.o. male who presents with new onset AFib with RVR. Patient given IV Cardizem en route to ED and PO + IV Cardizem in ED with intermittent resolution of RVR. Patient to be admitted to inpatient telemetry for further evaluation. *DC/Admit/Observation/Transfer Diagnosis at time of Disposition: Atrial fibrillation - Discharge Dispostion Condition at time of disposition: Good Admit: Yes - Referrals - Patient Instructions - Post Discharge Activity
--- NOTE | 2017-03-22 16:08 | EKG ---
Test Reason : Blood Pressure : / mmHG Vent. Rate : 117 BPM Atrial Rate : 227 BPM P-R Int : 000 ms QRS Dur : 102 ms QT Int : 330 ms P-R-T Axes : 000 -05 093 degrees QTc Int : 460 ms ATRIAL FIBRILLATION WITH RAPID VENTRICULAR RESPONSE MINIMAL VOLTAGE CRITERIA FOR LVH, MAY BE NORMAL VARIANT ABNORMAL QRS-T ANGLE, CONSIDER PRIMARY T WAVE ABNORMALITY ABNORMAL ECG NO PREVIOUS ECGS AVAILABLE Confirmed by LAMAR MARINELLI MD ([id number]) on 03/22/2017 4:07:53 PM Referred By: Confirmed By:LAMAR MARINELLI MD
[2017-03-22] MEDS ORDERED: dilTIAZem HCL 125 MG/25 ML - 25 ML VIAL ONE (16:15)
[2017-03-22 16:32] LABS: ALBUMIN 3.4 g/dl (3.4-5.0); ALK PHOS 138 U/L (45-117); ANION GAP 15 (8-16); BILIRUBIN,TOTAL 1.4 mg/dL (0.2-1.0); CO2 26 mmol/L (21-32); CREATININE 1.5 mg/dL (0.7-1.3); TOT PROT 6.3 g/dl (6.4-8.2); TROPONIN I 0.05 ng/ml (0.00-0.05)
[2017-03-22 18:53] LABS: GLUCOSE,RANDOM 426 mg/dL (74-106)
[2017-03-22] MEDS ORDERED: DEXAMETHASONE 4 MG TABLET (FP) PO SCH (19:30)
[2017-03-22] MEDS ORDERED: METOPROLOL SUCCINATE 50 MG TAB.SR.24H (FP) PO SCH (20:00)
[2017-03-22] MEDS: dilTIAZem HCL 50 MG/10 ML - 10 ML VIAL IVPUSH PRN (20:28)
[2017-03-22 22:34] LABS: TROPONIN I 0.05 ng/ml (0.00-0.05)
[2017-03-22] MEDS: ASPIRIN/DIPYRIDAMOLE 25 MG/200 MG CAPSULE (FP) PO SCH (22:52)
[2017-03-22] MEDS: LEVOFLOXACIN 500 MG IVPB 500 MG/100 ML BAG IVPB SCH (22:52)
[2017-03-22] MEDS: INSULIN SLIDING SCALE (NOVOLOG) 1 VIAL SQ SCH (22:53)
[2017-03-22] MEDS: LATANOPROST 0.005% OPHTH SOLN 2.5ML BOTTLE OS SCH (22:53)
[2017-03-22] MEDS: SODIUM CHLORIDE 0.45% 1,000 ML IV SCH (22:55)
--- NOTE | 2017-03-22 22:58 | CONSULT ---
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 Cardiovascular: Yes: HTN Heme/Onc: Yes: Other (mulitiple myeloma- s/p stem cell transplant) - Past Surgical History Additional Past Surgical History: glaucoma - Smoking History Smoking history: Unknown if ever smoked Home Medications - Allergies Allergies/Adverse Reactions: Allergies Allergy/AdvReac Type Severity Reaction Status Date / Time No Known Allergies Allergy Unverified 03/22/17 14:21 - Home Medications Home Medications: Ambulatory Orders Allopurinol 300 mg PO ASDIR 10/04/16 Aspirin [ASA -] 81 mg PO DAILY 10/04/16 Aspirin/Dipyridamole [Aggrenox -] 1 combo PO BID 10/04/16 Atorvastatin Ca [Lipitor] 40 mg PO HS 10/04/16 Bortezomib [Velcade] 0.1 mg IV ASDIR 10/04/16 Dexamethasone [Decadron -] 4 mg PO Q6H 10/04/16 Gabapentin 400 mg PO ASDIR 10/04/16 Oxycodone Sr [Oxycontin] 10 mg PO BID 10/04/16 Pantoprazole Sodium [Protonix -] 40 mg PO DAILY 10/04/16 Prednisone 10 mg PO ASDIR 10/04/16 Zoledronic Acid [Zometa -] 4 mg IVPB ASDIR 10/04/16 Dorzolamide HCl [Trusopt 2%] 1 drop OD DAILY 02/11/17 Travoprost [Travatan Z] 5 ml OP DAILY 02/11/17 Furosemide [Lasix] 20 mg PO DAILY 03/22/17 Physical Examination Vital Signs: Vital Signs Temperature 98 F 03/23/17 09:20 Pulse Rate 122 H 03/23/17 09:20 Respiratory Rate 20 03/23/17 09:20 Blood Pressure 120/58 03/23/17 09:20 O2 Sat by Pulse Oximetry (%) 96 03/23/17 09:00 Constitutional: Yes: No Distress, Calm Cardiovascular: Yes: Pulse Irregular. No: Tachycardia Respiratory: Yes: CTA Bilaterally Gastrointestinal: Yes: Normal Bowel Sounds, Soft, Abdomen, Obese. Psychiatric: Yes: Alert, Oriented Abnormal Lab Results 03/22/17 03/23/17 03/23/17 21:00 00:15 07:20 RBC 3.64 L MCV 101.5 H MCH 34.5 H RDW 16.6 H Plt Count 68 L D Neutrophils % 86.8 H Potassium Chloride BUN Random Glucose Hemoglobin A1c % Calcium Total Bilirubin AST ALT Creatine Kinase 313 H Total Protein Albumin TSH Urine Protein 1+ H Urine Glucose (UA) 3+ H Urine Ketones Trace H Urine Blood 1+ H 03/23/17 03/23/17 07:20 07:20 RBC MCV MCH RDW Plt Count Neutrophils % Potassium 2.9 L* Chloride 95 L BUN 35 H Random Glucose 168 H D Hemoglobin A1c % 8.8 H Calcium 7.4 L Total Bilirubin 1.4 H AST 39 H D ALT 119 H D Creatine Kinase Total Protein 5.3 L Albumin 2.8 L TSH 0.30 L Urine Protein Urine Glucose (UA) Urine Ketones Urine Blood Active Medications Diltiazem HCl (Cardizem Injection -) 10 mg IVPUSH Q4H PRN PRN Reason: TACHYCARDIA Last Admin: 03/23/17 00:47 Dose: 10 mg Enoxaparin Sodium (Lovenox -) 90 mg SQ BID [facility] Last Admin: 03/23/17 10:16 Dose: 90 mg Gabapentin (Neurontin -) 300 mg PO BID [facility] Last Admin: 03/23/17 10:14 Dose: 300 mg Levofloxacin (Levaquin 500 Mg Premixed Ivpb -) 500 mg in 100 mls @ 100 mls/hr IVPB DAILY [facility] Last Admin: 03/23/17 10:36 Dose: 100 mls/hr Potassium Chloride 10 meq/ (Sodium Chloride) 1,005 mls @ 80 mls/hr IV Q12H [facility] Last Admin: 03/23/17 18:11 Dose: 80 mls/hr Insulin Aspart (Novolog Vial Sliding Scale -) 1 vial SQ TIDAC [facility] PRN Reason: Protocol Last Admin: 03/23/17 18:08 Dose: 2 units Insulin Detemir (Levemir Vial) 8 units SQ BID [facility] Latanoprost (Xalatan 0.005% Eye Drops -) 1 drop OS HS [facility] Last Admin: 03/22/17 22:53 Dose: 1 drop Metoprolol Tartrate (Lopressor -) 50 mg PO TID [facility] Last Admin: 03/23/17 14:26 Dose: 50 mg Non-Formulary Med ( Dorzolamide 2% Opthalmic Solution) 1 each OD DAILY [facility] Oxycodone HCl (Oxycontin -) 10 mg PO BID PRN PRN Reason: PAIN Last Admin: 03/23/17 14:26 Dose: 10 mg Pantoprazole Sodium (Protonix -) 40 mg PO DAILY [facility] Last Admin: 03/23/17 10:16 Dose: 40 mg Polyethylene Glycol (Miralax (For Daily Use) -) 17 gm PO DAILY [facility] Last Admin: 03/23/17 10:17 Dose: 17 gm A/P 71 y/opatient with multiple myeloma, admitted with shortness of breath, afib On telemetry Also with glaucoma thrombocytopenia will check cultures/ CXR start levaquin for cough/SOB start miralax for constipation hold dexamethasone/velcade this week will follow
[2017-03-23 00:44] LABS: URINE APPEARANCE CLEAR; URINE BILIRUBIN NEGATIVE (NEGATIVE); URINE BLOOD 1+ (NEGATIVE); URINE COLOR YELLOW; URINE GLUCOSE (UA) 3+ (NEGATIVE); URINE KETONE TRACE (NEGATIVE); URINE NITRITE NEGATIVE (NEGATIVE)
[2017-03-23] MEDS: dilTIAZem HCL 50 MG/10 ML - 10 ML VIAL IVPUSH PRN (00:47)
[2017-03-23 00:51] LABS: URINE PROTEIN 1+ (NEGATIVE)
[2017-03-23 00:55] LABS: URINE MUCUS RARE; URINE RBC 5 /hpf (0-3); URINE WBC 1 /hpf (3-5)
[2017-03-23] MEDS ORDERED: INSULIN (NOVOLOG) ASPART 100 UNITS/ML 10ML VIAL ONE (06:18)
[2017-03-23] MEDS: INSULIN SLIDING SCALE (NOVOLOG) 1 VIAL SQ SCH ×3 (06:35→18:08)
--- NOTE | 2017-03-23 07:47 | PN ---
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 (short form) - Note 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: Patient seen and examined 71 year old s/p Stem cell transplant for multiple myeloma in April 2013. In complete remission and on maintenance velcade and decadron q 2 weeks. In office yesterday with chest pain, SOB, difficulty breathing. 911 called and patient found to be in rapid atrial fib with ventricular rate of 170-180. Given cardizem push and sent to ER for admission. PMH - Neuropathy on Gamma Globulin q 3 months Essential hypertension Glaucoma- multiple surgical procedures. Scheduled for additional left eye surgery, but delayed secondary to thrombocytopenia Chronic Back pain syndrome with compression Myeloma- s/p stem cell transplant Hyperglycemia Impression: Current Medications Generic Name Dose Route Start Last Admin Trade Name Freq PRN Reason Stop Dose Admin Diltiazem HCl 10 mg 03/22/17 19:35 03/23/17 00:47 Cardizem Injection - IVPUSH 10 mg Q4H PRN Administration TACHYCARDIA Dipyridamole/Aspirin 1 combo 03/22/17 22:00 03/22/17 22:52 Aggrenox - PO 1 combo BID JAMIE Administration Sodium Chloride 1,000 mls @ 100 mls/hr 03/22/17 19:45 03/22/17 22:55 1/2 Normal Saline IV 100 mls/hr ASDIR JAMIE Administration Levofloxacin 500 mg in 100 mls @ 100 mls/hr 03/22/17 20:45 03/22/17 22:52 Levaquin 500 Mg Premixed Ivpb - IVPB 100 mls/hr DAILY JAMIE Administration Insulin Aspart 1 vial 03/22/17 19:45 03/23/17 06:35 Novolog Vial Sliding Scale - SQ 2 units TIDAC JAMIE Administration Protocol Latanoprost 1 drop 03/22/17 22:00 03/22/17 22:53 Xalatan 0.005% Eye Drops - OS 1 drop HS JAMIE Administration Metoprolol Succinate 50 mg 03/22/17 20:00 03/22/17 22:52 Toprol Xl - PO 50 mg BID JAMIE Administration Non-Formulary Med ( 1 each 03/23/17 10:00 Dorzolamide 2% OD Opthalmic Solution) DAILY JAMIE Oxycodone HCl 10 mg 03/22/17 19:30 Oxycontin - PO BID PRN PAIN Pantoprazole Sodium 40 mg 03/23/17 10:00 Protonix - PO DAILY JAMIE Polyethylene Glycol 17 gm 03/23/17 10:00 Miralax (For Daily Use) - PO DAILY JAMIE ROS- chest pain on exertion, SOB, WALTERS, decrease vision left eye> right eye; no dysphagia, no nausea, emesis, no dysuria, hematuria, chronic back pain, LE eneuropathy NKDA Last Vital Signs Temp Pulse Resp BP Pulse Ox 98.0 F 106 H 20 109/66 96 03/23/17 06:00 03/23/17 06:00 03/23/17 06:00 03/23/17 06:00 03/22/17 21:00 HEENT: anisocoria, s/p cataract left eye Oropharynx: No thrush, No mucositis Neck: Supple Nodes: Without adenopathy Cor: atrial fib Lungs: Clear to P&A Abd: Soft, Normal bowel sounds, No organomegaly, distended ExtAnkle edema edema Skin: No rashes, Integument intact CBC, BMP 03/22/17 14:39 03/22/17 14:39 Impression New onset atrial fib Myeloma - s/p transplant - in remission on maintenance chemotherapy with velcade and decadron Neuropathy Hyperglycemia Essential Hypertension Glaucoma Thrombocytopenia Hypokalemia Plan Cardiology A/C Replete K+ Insulin prn Hold chemotherpay Delay glaucoma surgery- but this is imperative in an attempt to save left eye Plan: Cardiology
[2017-03-23] MEDS ORDERED: POTASSIUM CHLORIDE TABS 20 MEQ TABLET.ER (FP) PO ONE (08:06)
[2017-03-23 08:31] LABS: BASOPHIL 0.6 % (0-2.0); MCH 34.5 pg (25.7-33.7); MEAN CELL VOLUME 101.5 fl (80-96); MEAN PLT VOLUME 9.4 fl (7.5-11.1); NEUTROPHILS 86.8 % (42.8-82.8); PLATELET COUNT 68 K/MM3 (134-434); RDW 16.6 % (11.9-15.9); WHITE BLOOD COUNT 5.3 K/mm3 (4.0-10.0)
[2017-03-23 08:59] LABS: ALBUMIN 2.8 g/dl (3.4-5.0); ANION GAP 9 (8-16); CALCIUM 7.4 mg/dL (8.5-10.1); CO2 32 mmol/L (21-32); GLUCOSE,RANDOM 168 mg/dL (74-106); MAGNESIUM 2.4 mg/dL (1.8-2.4)
[2017-03-23 09:02] LABS: TROPONIN I 0.05 ng/ml (0.00-0.05)
[2017-03-23 09:11] LABS: ALK PHOS 103 U/L (45-117); BILIRUBIN,TOTAL 1.4 mg/dL (0.2-1.0); CREATININE 1.1 mg/dL (0.7-1.3); FREE T4 0.96 ng/dl (0.76-1.16); SGOT/AST 39 U/L (15-37); SGPT/ALT 119 U/L (12-78); TOT PROT 5.3 g/dl (6.4-8.2)
[2017-03-23] MEDS ORDERED: DORZOLAMIDE 2% HCL OPHTHALMIC SOLUTION 10 ML BOTTLE OD SCH (10:00)
[2017-03-23] MEDS ORDERED: ASPIRIN 81 MG CHEWABLE TABLETS PO SCH (10:00)
--- NOTE | 2017-03-23 10:12 | HP ---
Admitting History and Physical - Primary Care Physician PCP: Avtar Melchor - Admission Chief Complaint: chest pain , sob History of Present Illness: 71 yrs old male with H/O Multiple Myel[facility] [facility] [place] and [place]- found to be in rapid Afib-- received Cardizem IV push Currently in Afib- rate better controlled- pt examined by me in Telemetry Last chemo was 2 weeks ago per pt Denies chest pain ,fever, diarrhea, cough, SOB ,dizziness, palpitations, fever History Source: Patient Limitations to Obtaining History: No Limitations - Past Medical History [employer]: Yes: Peripheral Neuropathy Cardiovascular: Yes: HTN Heme/Onc: Yes: Other (mulitiple myeloma- s/p stem cell transplant) - Past Surgical History Additional Past Surgical History: glaucoma - Smoking History Smoking history: Unknown if ever smoked Have you smoked in the past 12 months: No - Alcohol/Substance Use Hx Alcohol Use: No Home Medications - Allergies Allergies/Adverse Reactions: Allergies Allergy/AdvReac Type Severity Reaction Status Date / Time No Known Allergies Allergy Unverified 03/22/17 14:21 - Home Medications Home Medications: Ambulatory Orders Allopurinol 300 mg PO ASDIR 10/04/16 Aspirin [ASA -] 81 mg PO DAILY 10/04/16 Aspirin/Dipyridamole [Aggrenox -] 1 combo PO BID 10/04/16 Atorvastatin Ca [Lipitor] 40 mg PO HS 10/04/16 Bortezomib [Velcade] 0.1 mg IV ASDIR 10/04/16 Dexamethasone [Decadron -] 4 mg PO Q6H 10/04/16 Gabapentin 400 mg PO ASDIR 10/04/16 Oxycodone Sr [Oxycontin] 10 mg PO BID 10/04/16 Pantoprazole Sodium [Protonix -] 40 mg PO DAILY 10/04/16 Prednisone 10 mg PO ASDIR 10/04/16 Zoledronic Acid [Zometa -] 4 mg IVPB ASDIR 10/04/16 Dorzolamide HCl [Trusopt 2%] 1 drop OD DAILY 02/11/17 Travoprost [Travatan Z] 5 ml OP DAILY 02/11/17 Furosemide [Lasix] 20 mg PO DAILY 03/22/17 Review of Systems - Review of Systems Constitutional: denies: Chills, Fever, Weakness Cardiovascular: denies: Chest Pain, Edema, Palpitations, Shortness of Breath Genitourinary: denies: Burning, Discharge, Dysuria, Flank Pain Physical Examination Vital Signs: Vital Signs Temperature 98 F 03/23/17 09:20 Pulse Rate 122 H 03/23/17 09:20 Respiratory Rate 20 03/23/17 09:20 Blood Pressure 120/58 03/23/17 09:20 O2 Sat by Pulse Oximetry (%) 96 03/23/17 09:00 Constitutional: Yes: No Distress, Calm Cardiovascular: Yes: Pulse Irregular. No: Tachycardia Respiratory: Yes: CTA Bilaterally Gastrointestinal: Yes: Normal Bowel Sounds, Soft, Abdomen, Obese. No: Distention, Tenderness Edema: No Psychiatric: Yes: Alert, Oriented Labs: CBC, BMP 03/23/17 07:20 03/23/17 07:20 Imaging - Results Chest X-ray: Image Reviewed (clear) EKG: Image Reviewed (Afib with RVR) Problem List - Problems (1) Rapid atrial fibrillation Assessment/Plan: Rate control by Lopressor Cardiology evaluated pt this morning- changed Toprol to Lopressor Cardizim IV pushes PRB for rate control TSH, Free T 4 noted replace potassium On Lovenox will need to start Coumadin check Echo Cardiac enzymes negative Code(s): I48.91 - UNSPECIFIED ATRIAL FIBRILLATION (2) Hypokalemia Assessment/Plan: replace potassium change iv fluids Code(s): E87.6 - HYPOKALEMIA (3) Multiple myeloma in remission Assessment/Plan: hold off chemo per Hematology Code(s): C90.01 - MULTIPLE MYELOMA IN REMISSION (4) Thrombocytopenia Assessment/Plan: monitor platelets since pt is on Lovenox Also on empiric antibiotics, R/O infectious etiology -- cultures pending Code(s): D69.6 - THROMBOCYTOPENIA, UNSPECIFIED (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
[2017-03-23] MEDS: GABAPENTIN 300 MG CAPSULE (FP) PO SCH ×3 (10:14→21:28)
[2017-03-23] MEDS ORDERED: KCL 10 MEQ IVPB 10 MEQ/100 ML INFUS.BAG IVPB SCH ×2 (10:15→10:30)
[2017-03-23] MEDS: ENOXAPARIN NA (PORCINE) 100 MG/1 ML DISP.SYRIN SQ SCH ×2 (10:16→21:32)
[2017-03-23] MEDS: ASPIRIN/DIPYRIDAMOLE 25 MG/200 MG CAPSULE (FP) PO SCH (10:16)
[2017-03-23] MEDS: PANTOPRAZOLE 40 MG TABLET (FP) PO SCH (10:16)
[2017-03-23] MEDS: POLYETHYLENE GLYCOL 3350 119 GM BTL PO SCH (10:17)
[2017-03-23] MEDS: LEVOFLOXACIN 500 MG IVPB 500 MG/100 ML BAG IVPB SCH (10:36)
[2017-03-23] MEDS: SODIUM CHLORIDE 0.45% 1,000 ML IV SCH (10:37)
[2017-03-23] MEDS: METOPROLOL TARTRATE 50 MG TABLET (FP) PO SCH ×3 (10:37→21:29)
[2017-03-23] MEDS ORDERED: POTASSIUM CHLORIDE 20 MEQ in SODIUM CHLORIDE 250 ML IVPB ONE (10:45)
[2017-03-23] MEDS ORDERED: POTASSIUM CHLORIDE 30 MEQ in SODIUM CHLORIDE 300 ML IVPB ONE (11:00)
[2017-03-23 11:46] LABS: INR 1.03 (0.82-1.09); PROTHROMBIN TIME (PATIENT) 11.6 SEC (9.98-11.88)
[2017-03-23 12:52] LABS: URINE LEUK ESTERASE Negative (NEGATIVE)
[2017-03-23] MEDS ORDERED: SODIUM CHLORIDE 0.45% 1,000 ML with POTASSIUM CHLORIDE 10 MEQ IVPB SCH (13:34)
[2017-03-23] MEDS ORDERED: METOPROLOL TARTRATE 50 MG TABLET (FP) PO SCH (14:00)
[2017-03-23] MEDS: oxyCODONE HCL 10 MG SUSTAINED ACTING TABLET PO PRN ×2 (14:26→21:29)
--- NOTE | 2017-03-23 14:36 | PN ---
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 (short form) - Note 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: Chief Complaint: Events noted, notes reviewed, denies any further chest pain, but reports dyspnea with physical exertion History of Present Illness: Seen and examined on telemetry. Full consult dictated - Current Medication List Current Medications Diltiazem HCl (Cardizem Injection -) 10 mg IVPUSH Q4H PRN PRN Reason: TACHYCARDIA Last Admin: 03/23/17 00:47 Dose: 10 mg Enoxaparin Sodium (Lovenox -) 90 mg SQ BID [facility] Last Admin: 03/23/17 10:16 Dose: 90 mg Gabapentin (Neurontin -) 300 mg PO BID [facility] Last Admin: 03/23/17 10:14 Dose: 300 mg Levofloxacin (Levaquin 500 Mg Premixed Ivpb -) 500 mg in 100 mls @ 100 mls/hr IVPB DAILY [facility] Last Admin: 03/23/17 10:36 Dose: 100 mls/hr Potassium Chloride 10 meq/ (Sodium Chloride) 1,005 mls @ 80 mls/hr IV Q12H [facility] Insulin Aspart (Novolog Vial Sliding Scale -) 1 vial SQ TIDAC [facility] PRN Reason: Protocol Last Admin: 03/23/17 12:17 Dose: 6 units Insulin Detemir (Levemir Vial) 8 units SQ BID [facility] Latanoprost (Xalatan 0.005% Eye Drops -) 1 drop OS HS [facility] Last Admin: 03/22/17 22:53 Dose: 1 drop Metoprolol Tartrate (Lopressor -) 50 mg PO TID [facility] Last Admin: 03/23/17 10:37 Dose: 50 mg Non-Formulary Med ( Dorzolamide 2% Opthalmic Solution) 1 each OD DAILY [facility] Oxycodone HCl (Oxycontin -) 10 mg PO BID PRN PRN Reason: PAIN Pantoprazole Sodium (Protonix -) 40 mg PO DAILY [facility] Last Admin: 03/23/17 10:16 Dose: 40 mg Polyethylene Glycol (Miralax (For Daily Use) -) 17 gm PO DAILY [facility] Last Admin: 03/23/17 10:17 Dose: 17 gm - Review of Systems Cardiovascular: As noted above Respiratory: As noted above Gastrointestinal: denies: Nausea, Vomiting, Diarrhea, Constipation or Abdominal Pain Musculoskeletal: No symptoms reported Neurological: No symptoms reported - Objective Vital Signs: Last Vital Signs Temp Pulse Resp BP Pulse Ox 98 F 122 H 20 120/58 95 03/23/17 09:20 03/23/17 09:20 03/23/17 09:20 03/23/17 09:20 03/23/17 09:00 Intake & Output 03/20/17 03/21/17 03/22/17 03/23/17 23:59 23:59 23:59 23:59 Intake Total 100 1520 Output Total 200 Balance -100 1520 Weight 200 lb 9.93 oz Neck: Supple Negative JVD Cardiovascular: S1 S2 Irregularly Irregular Respiratory: Clear to A&P Bilaterally Gastrointestinal: Soft Benign Normal Bowel Sounds Ext: Negative Edema Labs: CBC, BMP 03/23/17 07:20 03/23/17 07:20 Troponin, BNP 03/22/17 03/22/17 03/23/17 14:39 21:00 07:20 Troponin I 0.05 0.05 0.05 B-Natriuretic Peptide 2894.68 H Hepatic Panel Total Bilirubin 1.4 mg/dL (0.2-1.0) H 03/23/17 07:20 AST 39 U/L (15-37) H D 03/23/17 07:20 ALT 119 U/L (12-78) H D 03/23/17 07:20 Alkaline Phosphatase 103 U/L (45-117) D 03/23/17 07:20 Albumin 2.8 g/dl (3.4-5.0) L 03/23/17 07:20 INR, PTT INR 1.03 (0.82-1.09) 03/23/17 11:13 Assessment/Plan ASSESSMENT: 1. Chest pain syndrome and progressive exertional dyspnea referable to 2. Coronary artery disease angina pectoris and 3. Diastolic LV dysfunction with class 0-I NYHA classification LV failure exacerbated by 4. New onset paroxysmal atrial fibrillation with periods of rapid ventricular response [id number] score of 3, currently on Lovenox therapy 5. Hypertension 6. Hyperglycemia 7. Hypercholesterolemia 8. Anemia 9. Thrombocytopenia 10. Chronic kidney disease 11. Hypokalemia 12. History of multiple myeloma post stem cell transplant currently receiving chemotherapy 13. History of peripheral neuropathy PLAN: 1. Continue anticoagulation with Lovenox with caution considering the above- noted thrombocytopenia and long-term anticoagulation is recommended with NOAC's unless it is absolutely contraindicated 2. Lopressor initiated in substitution for Toprol-XL to assist with rate control 3. Recommend the addition of ACEI or ARBS hemodynamics permitting and not contraindicated 4. Echocardiography for evaluation of left ventricular size and function and valvular function 5. Correction of hypokalemia Tank Munoz MD
[2017-03-23] MEDS: SODIUM CHLORIDE 0.45% 1,000 ML with POTASSIUM CHLORIDE 10 MEQ IV SCH (18:11)
--- NOTE | 2017-03-23 19:13 | CONS ---
DATE OF CONSULTATION: 03/23/2017 REQUESTING PHYSICIAN: Emma Brand MD; Kristal Cannon MD CHIEF COMPLAINT: Evaluation of chest discomfort, exertional dyspnea, and new-onset atrial fibrillation. HISTORY OF PRESENT ILLNESS: A 71-year-old, obese male with known history of hypertensive cardiovascular disease; hypercholesterolemia; multiple myeloma, post autologous stem cell transplant; degenerative lumbosacral disk disease with chronic low back pain syndrome; peripheral neuropathy, who was evaluated in his oncologist's office, Dr. Alen Gomez. At which point, he had reported chest discomfort and progressive exertional dyspnea. Upon evaluation, patient was noted to have evidence of tachycardia. Electrocardiogram subsequently revealed atrial fibrillation with rapid ventricular response. Patient has been reporting chest discomfort which is described as heaviness noted at rest and with physical activity, and, in addition, progressive exertional dyspnea. Patient denied any orthopnea or paroxysmal nocturnal dyspnea. Patient denied any peripheral edema. Patient denied any palpitations, dizziness, lightheadedness, or syncope. Patient reported progressive fatigue and tiredness. As noted above, patient was noted to be in atrial fibrillation with rapid ventricular response requiring IV Cardizem therapy administration intermittently. PAST MEDICAL HISTORY: Hypertensive cardiovascular disease; hypercholesterolemia; multiple myeloma post stem cell transplant, currently receiving chemotherapy; degenerative lumbosacral disk disease with chronic low back syndrome; and peripheral neuropathy. SOCIAL HISTORY: Remote history of tobacco abuse. FAMILY HISTORY: No family history of coronary artery disease. ALLERGIES: None reported. MEDICAL THERAPY: Currently includes Cardizem injection IV 10 mg every 4 hours as needed, Lovenox 90 mg twice a day, Neurontin 300 mg twice a day, Levaquin 500 mg once a day, potassium chloride supplementation, insulin coverage, Xalatan eye drops as prescribed, Toprol-XL 50 mg twice a day, Dorzolamide ophthalmic solution, OxyContin 10 mg twice a day as needed, Protonix 40 mg once a day, MiraLAX 17 g once a day. REVIEW OF SYSTEMS: Head and Neck: Denies headache, photophobia, blurring of vision. Respiratory: No cough or sputum production. Cardiovascular: As noted above. Gastrointestinal: No nausea, vomiting, diarrhea, abdominal discomfort. Genitourinary: No symptoms reported. Musculoskeletal: Degenerative lumbosacral disk disease with chronic low back pain syndrome and peripheral neuropathy. PHYSICAL EXAMINATION: Vital Signs: Blood pressure 120/58 mmHg. Pulse rate is 122 beats per minute, irregular. Temperature 98 degrees Fahrenheit. Head and Neck: Pupils equal and reactive to light and accommodation. Extraocular muscles are intact. Anicteric sclerae. Negative JVD. No bruit appreciated. Chest: Clear to auscultation and percussion. Cardiovascular: S1 and S2 irregularly irregular. No murmurs appreciated. Abdomen: Soft, benign. Normoactive bowel sounds. Extremities: Negative edema. Intact distal pulses. No calf tenderness. Electrocardiogram reveals atrial fibrillation with nonspecific T-wave abnormality. CBC revealed a white cell count of 5.3, hemoglobin 12.5, platelet count 68. Basic metabolic profile with a sodium 136, potassium 2.9, BUN of 35, creatinine 1.1, glucose 168. B-type natriuretic peptide was 2894. Troponin-I levels were noted. AST 39, ALT 119. ASSESSMENT: 1. Chest pain syndrome and progressive exertional dyspnea referable to number 2. 2. Coronary artery disease, angina pectoris. 3. Diastolic left ventricular dysfunction with class 0-1 [place] [employer] classification left ventricular failure exacerbated by number 4. 4. New-onset paroxysmal atrial fibrillation with periods of rapid ventricular response. CHADS-VASc score of 3. Currently on Lovenox therapy. 5. Hypertensive cardiovascular disease. 6. Hyperglycemia. 7. Hypercholesterolemia. 8. Anemia. 9. Thrombocytopenia. 10. History of multiple myeloma post stem cell transplant, currently receiving chemotherapy. 11. History of degenerative lumbosacral disk disease with chronic low back pain syndrome. 12. History of peripheral neuropathy. 13. Chronic kidney disease. 14. Hypokalemia. RECOMMENDATION: 1. Continuation of anticoagulation therapy with Lovenox with caution considering the above-noted thrombocytopenia, and long-term anticoagulation is recommended with new oral anticoagulant therapy unless it is absolutely contraindicated. 2. Lopressor initiated in substitution for Toprol-XL to assist with rate control. 3. Recommend the addition of TRAY inhibitor or angiotensin receptor blockers with caution, hemodynamic permitting and they are not contraindicated. 4. Echocardiography for evaluation of left ventricular size and function and valvular function. Further recommendation will depend upon response to above therapy adjustments and results of above echocardiography. Thank you for the kind referral. JV MCGOVERN M.D. [id number]
[2017-03-23] MEDS ORDERED: PT OWN MED DRAWER 7, Y5N ONE (21:25)
[2017-03-23] MEDS: LATANOPROST 0.005% OPHTH SOLN 2.5ML BOTTLE OS SCH (21:30)
[2017-03-23] MEDS: INSULIN DETEMIR 100 UNITS/ML MDV SQ SCH (21:31)
[2017-03-24] MEDS: oxyCODONE HCL 10 MG SUSTAINED ACTING TABLET PO PRN ×2 (06:14→19:39)
[2017-03-24] MEDS: METOPROLOL TARTRATE 50 MG TABLET (FP) PO SCH ×3 (06:14→21:05)
[2017-03-24] MEDS: INSULIN SLIDING SCALE (NOVOLOG) 1 VIAL SQ SCH ×3 (06:15→17:19)
[2017-03-24 07:27] LABS: BASOPHIL 0.3 % (0-2.0); EOSINOPHIL 0.4 % (0-4.5); MCH 34.5 pg (25.7-33.7); MCHC 33.8 g/dl (32.0-35.9); MEAN CELL VOLUME 101.9 fl (80-96); MEAN PLT VOLUME 9.1 fl (7.5-11.1); NEUTROPHILS 85.1 % (42.8-82.8); PLATELET COUNT 58 K/MM3 (134-434); RDW 16.8 % (11.9-15.9); WHITE BLOOD COUNT 4.2 K/mm3 (4.0-10.0)
[2017-03-24 07:45] LABS: ALBUMIN 2.6 g/dl (3.4-5.0); ANION GAP 7 (8-16); CALCIUM 7.4 mg/dL (8.5-10.1); CO2 29 mmol/L (21-32); GLUCOSE,RANDOM 117 mg/dL (74-106)
[2017-03-24 07:49] LABS: ALK PHOS 97 U/L (45-117); BILIRUBIN,TOTAL 1.5 mg/dL (0.2-1.0); CREATININE 0.9 mg/dL (0.7-1.3); SGOT/AST 42 U/L (15-37); SGPT/ALT 99 U/L (12-78)
[2017-03-24] MEDS: SODIUM CHLORIDE 0.45% 1,000 ML with POTASSIUM CHLORIDE 10 MEQ IV SCH ×2 (08:02→08:10)
[2017-03-24] MEDS: ENOXAPARIN NA (PORCINE) 100 MG/1 ML DISP.SYRIN SQ SCH ×2 (10:00→21:05)
[2017-03-24] MEDS: LEVOFLOXACIN 500 MG IVPB 500 MG/100 ML BAG IVPB SCH (10:00)
[2017-03-24] MEDS: GABAPENTIN 300 MG CAPSULE (FP) PO SCH ×2 (10:01→21:05)
[2017-03-24] MEDS: INSULIN DETEMIR 100 UNITS/ML MDV SQ SCH ×2 (10:01→21:11)
[2017-03-24] MEDS: POLYETHYLENE GLYCOL 3350 119 GM BTL PO SCH (10:01)
[2017-03-24] MEDS: PANTOPRAZOLE 40 MG TABLET (FP) PO SCH (10:02)
--- NOTE | 2017-03-24 10:31 | PN ---
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, Physician History of Present Illness: Remains in rapid afib with palpitations, denies chest pain, dyspnea, near syncope. - Current Medication List Current Medications: Active Medications Diltiazem HCl (Cardizem Injection -) 10 mg IVPUSH Q4H PRN PRN Reason: TACHYCARDIA Last Admin: 03/23/17 00:47 Dose: 10 mg Enoxaparin Sodium (Lovenox -) 90 mg SQ BID [facility] Last Admin: 03/24/17 10:00 Dose: 90 mg Gabapentin (Neurontin -) 300 mg PO BID [facility] Last Admin: 03/24/17 10:01 Dose: 300 mg Levofloxacin (Levaquin 500 Mg Premixed Ivpb -) 500 mg in 100 mls @ 100 mls/hr IVPB DAILY [facility] Last Admin: 03/24/17 10:00 Dose: 100 mls/hr Potassium Chloride 10 meq/ (Sodium Chloride) 1,005 mls @ 80 mls/hr IV Q12H [facility] Last Admin: 03/24/17 08:10 Dose: Not Given Insulin Aspart (Novolog Vial Sliding Scale -) 1 vial SQ TIDAC [facility] PRN Reason: Protocol Last Admin: 03/24/17 06:15 Dose: Not Given Insulin Detemir (Levemir Vial) 8 units SQ BID [facility] Last Admin: 03/24/17 10:01 Dose: 8 units Latanoprost (Xalatan 0.005% Eye Drops -) 1 drop OS HS [facility] Last Admin: 03/23/17 21:30 Dose: 1 drop Metoprolol Tartrate (Lopressor -) 50 mg PO TID [facility] Last Admin: 03/24/17 06:14 Dose: 50 mg Non-Formulary Med ( Dorzolamide 2% Opthalmic Solution) 1 each OD DAILY [facility] Oxycodone HCl (Oxycontin -) 10 mg PO BID PRN PRN Reason: PAIN Last Admin: 03/24/17 06:14 Dose: 10 mg Pantoprazole Sodium (Protonix -) 40 mg PO DAILY [facility] Last Admin: 03/24/17 10:02 Dose: 40 mg Polyethylene Glycol (Miralax (For Daily Use) -) 17 gm PO DAILY [facility] Last Admin: 03/24/17 10:01 Dose: 17 gm - Objective Vital Signs: Vital Signs Temperature 98 F 03/24/17 08:18 Pulse Rate 99 H 03/24/17 08:18 Respiratory Rate 20 03/24/17 08:38 Blood Pressure 90/50 03/24/17 08:18 O2 Sat by Pulse Oximetry (%) 95 03/24/17 08:38 Constitutional: Yes: No Distress, Calm Neck: Yes: Supple Cardiovascular: Yes: Tachycardia, Pulse Irregular Respiratory: Yes: Regular, Diminished, On Nasal O2 Gastrointestinal: Yes: Normal Bowel Sounds, Soft, Abdomen, Obese Edema: No Labs: CBC, BMP 03/24/17 05:48 03/24/17 05:48 INR, PTT INR 1.03 (0.82-1.09) 03/23/17 11:13 - ....Imaging Ultrasound: Report Reviewed (Diffuse fatty infiltration of liver) Problem List - Problems (1) Diastolic dysfunction Code(s): I51.9 - HEART DISEASE, UNSPECIFIED (2) Hypokalemia Code(s): E87.6 - HYPOKALEMIA (3) Multiple myeloma in remission Code(s): C90.01 - MULTIPLE MYELOMA IN REMISSION (4) Rapid atrial fibrillation Code(s): I48.91 - UNSPECIFIED ATRIAL FIBRILLATION (5) Thrombocytopenia Code(s): D69.6 - THROMBOCYTOPENIA, UNSPECIFIED Assessment/Plan 1. Chest pain syndrome and progressive exertional dyspnea referable to 2. Coronary artery disease angina pectoris and 3. Diastolic LV dysfunction with class 0-I NYHA classification LV failure exacerbated by 4. New onset paroxysmal atrial fibrillation with periods of rapid ventricular response [id number] score of 3, currently on Lovenox therapy 5. Hypertension 6. Hyperglycemia 7. Hypercholesterolemia 8. Anemia 9. Thrombocytopenia 10. Hypokalemia 11. History of multiple myeloma post stem cell transplant currently receiving chemotherapy 12. History of peripheral neuropathy PLAN: 1. Continue anticoagulation with Lovenox with caution considering the above- noted thrombocytopenia and long-term anticoagulation is recommended with NOAC's unless it is absolutely contraindicated 2. Increased Lopressor 50 tid with IV Cardizem as needed for rate control 3. Recommend the addition of ACEI or ARBS hemodynamics permitting and not contraindicated 4. F/u Echocardiography for evaluation of left ventricular size and function and valvular function 5. Correction of hypokalemia 6. D/c abx and PPI
--- NOTE | 2017-03-24 10:34 | PN ---
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 (short form) - Note 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: Patient seen and examined chart reviewed Consults noted Labs reviewed Denies cough, no longer has chest pain, no palpitations. O/E: Oropharynx: No thrush, No mucositis Neck: Supple Nodes: Without adenopathy Cor: atrial fib Lungs: Clear to P&A Abd: Soft, Normal bowel sounds, No organomegaly, distended ExtAnkle edema edema Skin: No rashes, Integument intact Last Vital Signs Temp Pulse Resp BP Pulse Ox 98 F 99 H 20 90/50 95 03/24/17 08:18 03/24/17 08:18 03/24/17 08:38 03/24/17 08:18 03/24/17 08:38 CBC, BMP 03/24/17 05:48 03/24/17 05:48 Current Medications Generic Name Dose Route Start Last Admin Trade Name Freq PRN Reason Stop Dose Admin Diltiazem HCl 10 mg 03/22/17 19:35 03/23/17 00:47 Cardizem Injection - IVPUSH 10 mg Q4H PRN Administration TACHYCARDIA Enoxaparin Sodium 90 mg 03/23/17 10:00 03/24/17 10:00 Lovenox - SQ 90 mg BID [facility] Administration Gabapentin 300 mg 03/23/17 08:15 03/24/17 10:01 Neurontin - PO 300 mg BID [facility] Administration Levofloxacin 500 mg in 100 mls @ 100 mls/hr 03/22/17 20:45 03/24/17 10:00 Levaquin 500 Mg Premixed Ivpb - IVPB 100 mls/hr DAILY [facility] Administration Potassium Chloride 10 meq/ 1,005 mls @ 80 mls/hr 03/23/17 13:45 03/24/17 08: 10 Sodium Chloride IV Not Given Q12H [facility] Insulin Aspart 1 vial 03/22/17 19:45 03/24/17 06:15 Novolog Vial Sliding Scale - SQ Not Given [facility] Protocol Insulin Detemir 8 units 03/23/17 22:00 03/24/17 10:01 Levemir Vial SQ 8 units BID [facility] Administration Latanoprost 1 drop 03/22/17 22:00 03/23/17 21:30 Xalatan 0.005% Eye Drops - OS 1 drop HS [facility] Administration Metoprolol Tartrate 50 mg 03/23/17 10:30 03/24/17 06:14 Lopressor - PO 50 mg TID [facility] Administration Non-Formulary Med ( 1 each 03/23/17 10:00 Dorzolamide 2% OD Opthalmic Solution) DAILY [facility] Oxycodone HCl 10 mg 03/22/17 19:30 03/24/17 06:14 Oxycontin - PO 10 mg BID PRN Administration PAIN Pantoprazole Sodium 40 mg 03/23/17 10:00 03/24/17 10:02 Protonix - PO 40 mg DAILY [facility] Administration Polyethylene Glycol 17 gm 03/23/17 10:00 03/24/17 10:01 Miralax (For Daily Use) - PO 17 gm DAILY [facility] Administration Assessment/Plan: New Onset A fib: On AC with lovenox bid appreciate cards input Thrombocytopenia ?etiology ( could be meds/fatty liver/chemo) Today's platelet are 58K Repeat CBC in the pm prior to next dose of lovenox repeat routine thrombocytopenia labs repeat myeloma markers stop levaquin ( CXR negative, cough resolved, no fevers) hold PPI if stable, may consider to change to NOACs MM: s/p SCT in 04/2013 on miantainence veldex last dose on 03/08 for myeloma markers HypoK: replete d/w KASSANDRA
[2017-03-24] MEDS: dilTIAZem HCL 50 MG/10 ML - 10 ML VIAL IVPUSH PRN (11:28)
[2017-03-24] MEDS ORDERED: POTASSIUM CHLORIDE 20 MEQ in SODIUM CHLORIDE 250 ML IVPB ONE (11:45)
[2017-03-24] MEDS ORDERED: KCL 10 MEQ IVPB 10 MEQ/100 ML INFUS.BAG IVPB SCH (11:45)
--- NOTE | 2017-03-24 17:32 | PN ---
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 (short form) - Note 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: pt seen/ examined. chart reviewed comfortable no complains at bedside. all f/u noted hr better now Vital Signs Temp 98 F 03/24/17 08:18 Pulse 140 H 03/24/17 13:33 Resp 20 03/24/17 13:33 BP 113/59 03/24/17 13:33 Pulse Ox 95 03/24/17 08:38 Intake & Output 03/23/17 03/24/17 03/24/17 23:59 11:59 23:59 Intake Total 1660 1455 400 Output Total 200 Balance 1660 1255 400 Intake: IV 380 960 1/2 Normal Saline 1,000 300 ml @ 100 mls/hr IV ASDIR [facility] Rx#:[id number] 1/2 Normal Saline 1,000 80 960 ml @ 80 mls/hr IVPB Q12H [facility] with KCl - 10 Meq Rx# :[id number] IVPB 300 Oral 980 495 400 Output: Urine 200 Void 200 Other: Voiding Method Toilet Urinal # Unmeasured Voids Void 2 2 Bowel Movement No No # Bowel Movements 1 Active Medications Diltiazem HCl (Cardizem Injection -) 10 mg IVPUSH Q4H PRN PRN Reason: TACHYCARDIA Last Admin: 03/24/17 11:28 Dose: 10 mg Enoxaparin Sodium (Lovenox -) 90 mg SQ BID [facility] Last Admin: 03/24/17 10:00 Dose: 90 mg Gabapentin (Neurontin -) 300 mg PO BID [facility] Last Admin: 03/24/17 10:01 Dose: 300 mg Potassium Chloride 10 meq/ (Sodium Chloride) 1,005 mls @ 80 mls/hr IV Q12H [facility] Last Admin: 03/24/17 08:10 Dose: Not Given Insulin Aspart (Novolog Vial Sliding Scale -) 1 vial SQ TIDAC [facility] PRN Reason: Protocol Last Admin: 03/24/17 17:19 Dose: Not Given Insulin Detemir (Levemir Vial) 8 units SQ BID [facility] Last Admin: 03/24/17 10:01 Dose: 8 units Latanoprost (Xalatan 0.005% Eye Drops -) 1 drop OS HS [facility] Last Admin: 03/23/17 21:30 Dose: 1 drop Metoprolol Tartrate (Lopressor -) 50 mg PO TID [facility] Last Admin: 03/24/17 13:32 Dose: 50 mg Non-Formulary Med ( Dorzolamide 2% Opthalmic Solution) 1 each OD DAILY [facility] Oxycodone HCl (Oxycontin -) 10 mg PO BID PRN PRN Reason: PAIN Last Admin: 03/24/17 06:14 Dose: 10 mg Pantoprazole Sodium (Protonix -) 40 mg PO DAILY [facility] Last Admin: 03/24/17 10:02 Dose: 40 mg Polyethylene Glycol (Miralax (For Daily Use) -) 17 gm PO DAILY [facility] Last Admin: 03/24/17 10:01 Dose: 17 gm CBC, BMP 03/24/17 05:48 03/24/17 05:48 INR, PTT INR 1.03 (0.82-1.09) 03/23/17 11:13 Physical Examination Constitutional: Yes: No Distress, Calm/ comfortable Cardiovascular: Yes: Pulse Irregular. still tachy - Respiratory: Yes: CTA Bilaterally Gastrointestinal: Yes: Normal Bowel Sounds, Soft, Abdomen, Obese. No: Distention, Tenderness Edema: No Psychiatric: Yes: Alert, Oriented Imaging - Results Chest X-ray: Image Reviewed (clear) EKG: Image Reviewed (Afib with RVR) A/p clinically better continue present care on lovenox metoprolol increased monitor bgm monitor platlets will follow pt also requests to give nystatin -- says some throat irritation . Problem List - Problems (1) Elevated LFTs Code(s): R79.89 - OTHER SPECIFIED ABNORMAL FINDINGS OF BLOOD CHEMISTRY (2) Multiple myeloma in remission Code(s): C90.01 - MULTIPLE MYELOMA IN REMISSION (3) Rapid atrial fibrillation Code(s): I48.91 - UNSPECIFIED ATRIAL FIBRILLATION (4) Thrombocytopenia Code(s): D69.6 - THROMBOCYTOPENIA, UNSPECIFIED
[2017-03-24 17:54] LABS: BASOPHIL 0.5 % (0-2.0); EOSINOPHIL 0.4 % (0-4.5); MCH 35.5 pg (25.7-33.7); MCHC 34.5 g/dl (32.0-35.9); MEAN PLT VOLUME 8.5 fl (7.5-11.1); NEUTROPHILS 89.1 % (42.8-82.8); PLATELET COUNT 55 K/MM3 (134-434); RDW 16.4 % (11.9-15.9); WHITE BLOOD COUNT 4.5 K/mm3 (4.0-10.0)
[2017-03-24] MEDS: NYSTATIN 500,000 UNITS/5 ML SUSPENSION PO SCH (18:54)
[2017-03-24] MEDS ORDERED: PT OWN MED DRAWER 7, Y5N ONE ×2 (21:00→21:52)
[2017-03-24] MEDS: LATANOPROST 0.005% OPHTH SOLN 2.5ML BOTTLE OS SCH (21:06)
[2017-03-25] MEDS: NYSTATIN 500,000 UNITS/5 ML SUSPENSION PO SCH ×4 (00:42→17:23)
[2017-03-25] MEDS: SODIUM CHLORIDE 0.45% 1,000 ML with POTASSIUM CHLORIDE 10 MEQ IV SCH ×2 (05:20→14:39)
[2017-03-25] MEDS: METOPROLOL TARTRATE 50 MG TABLET (FP) PO SCH ×4 (05:21→21:29)
[2017-03-25] MEDS: INSULIN SLIDING SCALE (NOVOLOG) 1 VIAL SQ SCH ×3 (06:01→17:24)
[2017-03-25 07:42] LABS: MCH 34.8 pg (25.7-33.7); MEAN CELL VOLUME 102.2 fl (80-96); MEAN PLT VOLUME 8.3 fl (7.5-11.1); PLATELET COUNT 50 K/MM3 (134-434); RDW 16.5 % (11.9-15.9); WHITE BLOOD COUNT 3.9 K/mm3 (4.0-10.0)
[2017-03-25 08:21] LABS: ALBUMIN 2.2 g/dl (3.4-5.0); ALK PHOS 86 U/L (45-117); ANION GAP 10 (8-16); BILIRUBIN,TOTAL 1.4 mg/dL (0.2-1.0); CALCIUM 7.2 mg/dL (8.5-10.1); CO2 26 mmol/L (21-32); CREATININE 0.9 mg/dL (0.7-1.3); GLUCOSE,RANDOM 89 mg/dL (74-106); SGOT/AST 32 U/L (15-37); SGPT/ALT 77 U/L (12-78); THYROID STIMULATING HORMONE 0.75 uIU/ml (0.358-3.74); TOT PROT 4.6 g/dl (6.4-8.2)
--- NOTE | 2017-03-25 09:06 | PN ---
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 (short form) - Note 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: patient seen and examined. Feels better. Eating well. Still remains tachycardic. Denies chest pain Denies shortness of breath Patient reports throat is much better with nystatin Afebrile Vital Signs Temp 98.5 F 03/25/17 06:46 Pulse 121 H 03/25/17 06:46 Resp 20 03/25/17 06:46 BP 105/71 03/25/17 06:46 Pulse Ox 93 L 03/24/17 20:39 Intake & Output 03/24/17 03/24/17 03/25/17 11:59 23:59 11:59 Intake Total 1455 1650 560 Output Total 200 100 100 Balance 1255 1550 460 Intake: IV 960 400 1/2 Normal Saline 1,000 960 400 ml @ 80 mls/hr IVPB Q12H JAMIE with KCl - 10 Meq Rx# :[id number] IVPB 350 560 Oral 495 900 Output: Urine 200 100 100 Void 200 100 100 Other: Voiding Method Urinal Urinal # Unmeasured Voids Void 2 Bowel Movement No No CBC, BMP 03/25/17 05:35 03/25/17 05:35 Active Medications Diltiazem HCl (Cardizem Injection -) 10 mg IVPUSH Q4H PRN PRN Reason: TACHYCARDIA Last Admin: 03/24/17 11:28 Dose: 10 mg Enoxaparin Sodium (Lovenox -) 90 mg SQ BID [facility] Last Admin: 03/24/17 21:05 Dose: 90 mg Gabapentin (Neurontin -) 300 mg PO BID [facility] Last Admin: 03/24/17 21:05 Dose: 300 mg Insulin Aspart (Novolog Vial Sliding Scale -) 1 vial SQ TIDAC [facility] PRN Reason: Protocol Last Admin: 03/25/17 06:01 Dose: Not Given Insulin Detemir (Levemir Vial) 8 units SQ BID [facility] Last Admin: 03/24/17 21:11 Dose: 8 units Latanoprost (Xalatan 0.005% Eye Drops -) 1 drop OS HS [facility] Last Admin: 03/24/17 21:06 Dose: 1 drop Metoprolol Tartrate (Lopressor -) 50 mg PO TID [facility] Last Admin: 03/25/17 05:21 Dose: 50 mg Non-Formulary Med ( Dorzolamide 2% Opthalmic Solution) 1 each OD DAILY [facility] Nystatin (Nystatin Oral Suspension -) 500,000 units PO Q6HPO [facility] Last Admin: 03/25/17 05:21 Dose: 500,000 units Oxycodone HCl (Oxycontin -) 10 mg PO BID PRN PRN Reason: PAIN Last Admin: 03/24/17 19:39 Dose: 10 mg Pantoprazole Sodium (Protonix -) 40 mg PO DAILY [facility] Last Admin: 03/24/17 10:02 Dose: 40 mg Polyethylene Glycol (Miralax (For Daily Use) -) 17 gm PO DAILY [facility] Last Admin: 03/24/17 10:01 Dose: 17 gm Potassium Chloride (K-Dur -) 40 meq PO ONCE ONE Stop: 03/25/17 09:05 Physical Examination Constitutional: Yes: No Distress, Calm/ comfortable. throat--- no thrush Cardiovascular: Yes: Pulse Irregular. Respiratory: Yes: clear to auscultation Gastrointestinal: Yes: Normal Bowel Sounds, Soft, Abdomen, Obese. No: Distention, Tenderness Edema: No Psychiatric: Yes: Alert, Oriented. Imaging - Results Chest X-ray: Image Reviewed (clear) EKG: Image Reviewed (Afib with RVR) A/p clinically better/stable. continue present care on lovenox long-term anticoagulation/Coumadin ?. Cardiology to follow. monitor bgm- monitor platlets. discontinue fluids. Supplement potassium. Daily out of bed to chair. Monitor on telemetry. will follow . Problem List - Problems (1) Elevated LFTs Code(s): R79.89 - OTHER SPECIFIED ABNORMAL FINDINGS OF BLOOD CHEMISTRY (2) Multiple myeloma in remission Code(s): C90.01 - MULTIPLE MYELOMA IN REMISSION (3) Rapid atrial fibrillation Code(s): I48.91 - UNSPECIFIED ATRIAL FIBRILLATION (4) Thrombocytopenia Code(s): D69.6 - THROMBOCYTOPENIA, UNSPECIFIED
[2017-03-25] MEDS: INSULIN DETEMIR 100 UNITS/ML MDV SQ SCH ×2 (09:24→21:29)
[2017-03-25] MEDS: dilTIAZem HCL 50 MG/10 ML - 10 ML VIAL IVPUSH PRN ×2 (09:25→12:14)
[2017-03-25] MEDS: oxyCODONE HCL 10 MG SUSTAINED ACTING TABLET PO PRN ×2 (09:27→19:21)
[2017-03-25] MEDS: ENOXAPARIN NA (PORCINE) 100 MG/1 ML DISP.SYRIN SQ SCH ×2 (09:28→21:28)
[2017-03-25] MEDS: GABAPENTIN 300 MG CAPSULE (FP) PO SCH ×2 (09:28→21:29)
[2017-03-25] MEDS ORDERED: POTASSIUM CHLORIDE TABS 20 MEQ TABLET.ER (FP) PO ONE (09:30)
--- NOTE | 2017-03-25 10:40 | PN ---
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, Physician History of Present Illness: Remains in rapid afib with palpitations, denies chest pain, dyspnea, near syncope. - Current Medication List Current Medications: Active Medications Diltiazem HCl (Cardizem Injection -) 10 mg IVPUSH Q4H PRN PRN Reason: TACHYCARDIA Last Admin: 03/25/17 09:25 Dose: 10 mg Enoxaparin Sodium (Lovenox -) 90 mg SQ BID [facility] Last Admin: 03/25/17 09:28 Dose: 90 mg Gabapentin (Neurontin -) 300 mg PO BID [facility] Last Admin: 03/25/17 09:28 Dose: 300 mg Insulin Aspart (Novolog Vial Sliding Scale -) 1 vial SQ TIDAC [facility] PRN Reason: Protocol Last Admin: 03/25/17 06:01 Dose: Not Given Insulin Detemir (Levemir Vial) 8 units SQ BID [facility] Last Admin: 03/25/17 09:24 Dose: 8 units Latanoprost (Xalatan 0.005% Eye Drops -) 1 drop OS HS [facility] Last Admin: 03/24/17 21:06 Dose: 1 drop Metoprolol Tartrate (Lopressor -) 50 mg PO TID [facility] Last Admin: 03/25/17 05:21 Dose: 50 mg Non-Formulary Med ( Dorzolamide 2% Opthalmic Solution) 1 each OD DAILY [facility] Nystatin (Nystatin Oral Suspension -) 500,000 units PO Q6HPO [facility] Last Admin: 03/25/17 05:21 Dose: 500,000 units Oxycodone HCl (Oxycontin -) 10 mg PO BID PRN PRN Reason: PAIN Last Admin: 03/25/17 09:27 Dose: 10 mg Pantoprazole Sodium (Protonix -) 40 mg PO DAILY [facility] Last Admin: 03/24/17 10:02 Dose: 40 mg Polyethylene Glycol (Miralax (For Daily Use) -) 17 gm PO DAILY [facility] Last Admin: 03/24/17 10:01 Dose: 17 gm - Objective Vital Signs: Vital Signs Temperature 98.5 F 03/25/17 06:46 Pulse Rate 121 H 03/25/17 06:46 Respiratory Rate 20 03/25/17 06:46 Blood Pressure 105/71 03/25/17 06:46 O2 Sat by Pulse Oximetry (%) 93 L 03/24/17 20:39 Constitutional: Yes: No Distress, Calm Neck: Yes: Supple Cardiovascular: Yes: Tachycardia, Pulse Irregular Respiratory: Yes: Regular, Diminished Gastrointestinal: Yes: Normal Bowel Sounds, Soft, Abdomen, Obese Edema: No Labs: CBC, BMP 03/25/17 05:35 03/25/17 05:35 INR, PTT INR 1.03 (0.82-1.09) 03/23/17 11:13 Problem List - Problems (1) Diastolic dysfunction Code(s): I51.9 - HEART DISEASE, UNSPECIFIED (2) Hypokalemia Code(s): E87.6 - HYPOKALEMIA (3) Multiple myeloma in remission Code(s): C90.01 - MULTIPLE MYELOMA IN REMISSION (4) Rapid atrial fibrillation Code(s): I48.91 - UNSPECIFIED ATRIAL FIBRILLATION (5) Thrombocytopenia Code(s): D69.6 - THROMBOCYTOPENIA, UNSPECIFIED Assessment/Plan 1. Chest pain syndrome and progressive exertional dyspnea referable to 2. Coronary artery disease angina pectoris and 3. Diastolic LV dysfunction with class 0-I NYHA classification LV failure exacerbated by 4. New onset paroxysmal atrial fibrillation with periods of rapid ventricular response [id number] score of 3, currently on Lovenox therapy 5. Hypertension 6. Hyperglycemia 7. Hypercholesterolemia 8. Anemia 9. Thrombocytopenia 10. Hypokalemia 11. History of multiple myeloma post stem cell transplant currently receiving chemotherapy 12. History of peripheral neuropathy PLAN: 1. Continue anticoagulation with Lovenox with caution considering the above- noted thrombocytopenia and long-term anticoagulation is recommended with NOAC's unless it is absolutely contraindicated 2. Continue Lopressor 50 tid and add Cardizem 30 q6 with IV Cardizem as needed for rate control 3. Recommend the addition of ACEI or ARBS hemodynamics permitting and not contraindicated 4. F/u Echocardiography for evaluation of left ventricular size and function and valvular function 5. Correction of hypokalemia
[2017-03-25 11:14] LABS: MYELOCYTE 2 % (0-2); PLATELET ESTIMATE DECREASED; TOTAL CELLS COUNTED 100
[2017-03-25] MEDS: dilTIAZem HCL 30 MG TABLET (FP) PO SCH ×4 (12:54→21:29)
[2017-03-25] MEDS: POLYETHYLENE GLYCOL 3350 119 GM BTL PO SCH (13:55)
[2017-03-25] MEDS ORDERED: dilTIAZem HCL 30 MG TABLET (FP) PO SCH (14:00)
[2017-03-25] MEDS ORDERED: INSULIN (NOVOLOG) ASPART 100 UNITS/ML 10ML VIAL ONE (17:26)
[2017-03-25] MEDS: DORZOLAMIDE 2% OS SCH (21:30)
[2017-03-25] MEDS: OPTHALMIC OS SCH (21:30)
[2017-03-25] MEDS: BRIMONIDINE OS SCH (21:34)
[2017-03-25] MEDS: TIMOLOL OS SCH (21:34)
[2017-03-25] MEDS: LATANOPROST 0.005% OPHTH SOLN 2.5ML BOTTLE OS SCH (21:34)
[2017-03-25] MEDS ORDERED: PT OWN MED DRAWER 7, Y5N ONE (21:41)
--- NOTE | 2017-03-25 22:20 | PN ---
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 (short form) - Note 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: Patient seen and examined Denies any complaints Last Vital Signs Temp Pulse Resp BP Pulse Ox 98.6 F 92 H 20 106/65 95 03/25/17 21:00 03/25/17 21:00 03/25/17 21:00 03/25/17 21:00 03/25/17 21:00 Cor: RSR, No murmurs, No gallops Lungs: Clear to P&A Abd: Soft, Normal bowel sounds, No organomegaly Ext:No significant edema Skin: No rashes, Integument intact Abnormal Lab Results 03/25/17 03/25/17 05:35 05:35 WBC 3.9 L RBC 3.16 L Hgb 11.0 L Hct 32.3 L MCV 102.2 H MCH 34.8 H RDW 16.5 H Plt Count 50 L Neutrophils % (Manual) 86.0 H Lymphocytes % (Manual) 1.0 L D Potassium 3.3 L Calcium 7.2 L Total Bilirubin 1.4 H Total Protein 4.6 L Albumin 2.2 L Serum Folate 20 H Home Medication List Medication Instructions Recorded Confirmed Type Allopurinol 300 mg PO ASDIR 10/04/16 03/22/17 History Aspirin [ASA -] 81 mg PO DAILY 10/04/16 03/22/17 History Aspirin/Dipyridamole [Aggrenox -] 1 combo PO BID 10/04/16 03/22/17 History Atorvastatin Ca [Lipitor] 40 mg PO HS 10/04/16 03/22/17 History Bortezomib [Velcade] 0.1 mg IV ASDIR 10/04/16 03/22/17 History Dexamethasone [Decadron -] 4 mg PO Q6H 10/04/16 03/22/17 History Gabapentin 400 mg PO ASDIR 10/04/16 03/22/17 History Oxycodone Sr [Oxycontin] 10 mg PO BID 10/04/16 03/22/17 History Pantoprazole Sodium [Protonix -] 40 mg PO DAILY 10/04/16 03/22/17 History Prednisone 10 mg PO ASDIR 10/04/16 03/22/17 History Zoledronic Acid [Zometa -] 4 mg IVPB ASDIR 10/04/16 03/22/17 History Dorzolamide HCl [Trusopt 2%] 1 drop OD DAILY 02/11/17 03/22/17 History Travoprost [Travatan Z] 5 ml OP DAILY 02/11/17 03/22/17 History Furosemide [Lasix] 20 mg PO DAILY 03/22/17 03/22/17 History Active Medications Generic Name Dose Route Start Last Admin Trade Name Freq PRN Reason Stop Dose Admin Diltiazem HCl 10 mg 03/22/17 19:35 03/25/17 12:14 Cardizem Injection - IVPUSH 10 mg Q4H PRN Administration TACHYCARDIA Diltiazem HCl 30 mg 03/25/17 14:00 03/25/17 21:29 Cardizem - PO 30 mg QID JAMIE Administration Enoxaparin Sodium 90 mg 03/23/17 10:00 03/25/17 21:28 Lovenox - SQ 90 mg BID JAMIE Administration Gabapentin 300 mg 03/23/17 08:15 03/25/17 21:29 Neurontin - PO 300 mg BID [facility]AMIE Administration Insulin Aspart 1 vial 03/22/17 19:45 03/25/17 17:24 Novolog Vial Sliding Scale - SQ 2 units TIDAC JAMIE Administration Protocol Insulin Detemir 8 units 03/23/17 22:00 03/25/17 21:29 Levemir Vial SQ 8 units BID [facility]IE Administration Latanoprost 1 drop 03/22/17 22:00 03/25/17 21:34 Xalatan 0.005% Eye Drops - OS 1 drop HS [facility]AMIE Administration Metoprolol Tartrate 50 mg 03/23/17 10:30 03/25/17 21:29 Lopressor - PO 50 mg TID [facility]IE Administration (Dorzolamide 2% 1 each 03/25/17 22:00 03/25/17 21:30 Opthalmic Solution) OS 1 each Non-Formulary Med BID [facility]IE Administration Ptt's Own Medication 1 each 03/25/17 22:00 03/25/17 21:34 (Combigan) OS 1 each BID [facility] Administration Non-Formulary Medication 1 each 03/25/17 22:00 03/25/17 21:34 Patient's Own Med OU 1 each BID [facility] Administration Nystatin 500,000 units 03/24/17 18:00 03/25/17 17:23 Nystatin Oral Suspension - PO 500,000 units Q6HPO [facility]AMIE Administration Oxycodone HCl 10 mg 03/25/17 20:03 Roxicodone - PO BID PRN SEVERE PAIN Pantoprazole Sodium 40 mg 03/23/17 10:00 03/24/17 10:02 Protonix - PO 40 mg DAILY JAMIE Administration Polyethylene Glycol 17 gm 03/23/17 10:00 03/25/17 13:55 Miralax (For Daily Use) - PO 17 gm DAILY [facility]AMIE Administration A/P New Onset A fib: On AC with lovenox bid Thrombocytopenia ?etiology ( could be meds/fatty liver/chemo/> viral) Today's platelet are 50K repeat myeloma markers MM: s/p SCT in 04/2013 on miantainence veldex last dose on 03/08 for myeloma markers discussed with patients family
[2017-03-26] MEDS: NYSTATIN 500,000 UNITS/5 ML SUSPENSION PO SCH ×5 (00:52→23:33)
[2017-03-26] MEDS: METOPROLOL TARTRATE 50 MG TABLET (FP) PO SCH ×2 (05:32→20:59)
[2017-03-26] MEDS: INSULIN SLIDING SCALE (NOVOLOG) 1 VIAL SQ SCH ×3 (06:21→17:28)
[2017-03-26] MEDS: dilTIAZem HCL 30 MG TABLET (FP) PO SCH (09:02)
[2017-03-26] MEDS: GABAPENTIN 300 MG CAPSULE (FP) PO SCH ×2 (09:03→20:59)
[2017-03-26] MEDS: INSULIN DETEMIR 100 UNITS/ML MDV SQ SCH ×2 (09:03→20:59)
[2017-03-26] MEDS: POLYETHYLENE GLYCOL 3350 119 GM BTL PO SCH (09:05)
[2017-03-26] MEDS: OPTHALMIC OS SCH ×2 (09:06→21:00)
[2017-03-26] MEDS: DORZOLAMIDE 2% OS SCH ×2 (09:06→21:00)
[2017-03-26] MEDS: TIMOLOL OS SCH ×2 (09:08→21:00)
[2017-03-26] MEDS: BRIMONIDINE OS SCH ×2 (09:08→21:00)
--- NOTE | 2017-03-26 10:02 | PN ---
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, Physician History of Present Illness: Converted to SR with rate-control, denies chest pain, dyspnea, near syncope or palpitations. - Current Medication List Current Medications: Active Medications Diltiazem HCl (Cardizem Injection -) 10 mg IVPUSH Q4H PRN PRN Reason: TACHYCARDIA Last Admin: 03/25/17 12:14 Dose: 10 mg Diltiazem HCl (Cardizem -) 30 mg PO QID [facility] Last Admin: 03/26/17 09:02 Dose: 30 mg Enoxaparin Sodium (Lovenox -) 90 mg SQ BID [facility] Last Admin: 03/25/17 21:28 Dose: 90 mg Gabapentin (Neurontin -) 300 mg PO BID [facility] Last Admin: 03/26/17 09:03 Dose: 300 mg Insulin Aspart (Novolog Vial Sliding Scale -) 1 vial SQ TIDAC [facility] PRN Reason: Protocol Last Admin: 03/26/17 06:21 Dose: Not Given Insulin Detemir (Levemir Vial) 8 units SQ BID [facility] Last Admin: 03/26/17 09:03 Dose: 8 units Latanoprost (Xalatan 0.005% Eye Drops -) 1 drop OS HS [facility] Last Admin: 03/25/17 21:34 Dose: 1 drop Metoprolol Tartrate (Lopressor -) 50 mg PO TID [facility] Last Admin: 03/26/17 05:32 Dose: 50 mg (Dorzolamide 2% Opthalmic Solution) Non-Formulary Med 1 each OS BID [facility] Last Admin: 03/26/17 09:06 Dose: 1 each Ptt's Own Medication ((Combigan)) 1 each OS BID [facility] Last Admin: 03/26/17 09:08 Dose: 1 each Non-Formulary Medication (Patient's Own Med) 1 each OU BID [facility] Last Admin: 03/26/17 09:08 Dose: 1 each Nystatin (Nystatin Oral Suspension -) 500,000 units PO Q6HPO [facility] Last Admin: 03/26/17 05:32 Dose: 500,000 units Oxycodone HCl (Roxicodone -) 10 mg PO BID PRN PRN Reason: SEVERE PAIN Pantoprazole Sodium (Protonix -) 40 mg PO DAILY [facility] Last Admin: 03/24/17 10:02 Dose: 40 mg Polyethylene Glycol (Miralax (For Daily Use) -) 17 gm PO DAILY [facility] Last Admin: 03/26/17 09:05 Dose: Not Given - Objective Vital Signs: Vital Signs Temperature 98.8 F 03/26/17 06:45 Pulse Rate 84 03/26/17 06:45 Respiratory Rate 20 03/26/17 06:45 Blood Pressure 100/63 03/26/17 06:45 O2 Sat by Pulse Oximetry (%) 95 03/25/17 21:00 Constitutional: Yes: No Distress, Calm Neck: Yes: Supple Cardiovascular: Yes: Regular Rate and Rhythm Respiratory: Yes: Regular, Diminished, On Nasal O2 Gastrointestinal: Yes: Normal Bowel Sounds, Soft, Abdomen, Obese Edema: No Labs: CBC, BMP 03/25/17 05:35 03/25/17 05:35 INR, PTT INR 1.03 (0.82-1.09) 03/23/17 11:13 - ....Imaging EKG: Report Reviewed (Tele: PAF->SR) Problem List - Problems (1) Diastolic dysfunction Code(s): I51.9 - HEART DISEASE, UNSPECIFIED (2) Hypokalemia Code(s): E87.6 - HYPOKALEMIA (3) Multiple myeloma in remission Code(s): C90.01 - MULTIPLE MYELOMA IN REMISSION (4) Rapid atrial fibrillation Code(s): I48.91 - UNSPECIFIED ATRIAL FIBRILLATION (5) Thrombocytopenia Code(s): D69.6 - THROMBOCYTOPENIA, UNSPECIFIED Assessment/Plan 1. Chest pain syndrome and progressive exertional dyspnea referable to 2. Coronary artery disease angina pectoris and 3. Diastolic LV dysfunction with class 0-I NYHA classification LV failure exacerbated by 4. Paroxysmal atrial fibrillation with periods of rapid ventricular response now in sinus rhythm [id number] score of 3, currently on Lovenox therapy 5. Hypertension 6. Hyperglycemia 7. Hypercholesterolemia 8. Anemia 9. Thrombocytopenia may be referable meds/fatty liver/chemo/> viral 10. Hypokalemia 11. History of multiple myeloma post stem cell transplant currently receiving chemotherapy 12. History of peripheral neuropathy PLAN: 1. Change Lovenox to Eliquis 5 bid with caution considering the above-noted thrombocytopenia 2. Decrease Lopressor 50 bid and change Cardizem CD 120 qd with IV Cardizem as needed for rate control 3. Recommend the addition of ACEI or ARBS hemodynamics permitting and not contraindicated 4. F/u Echocardiography for evaluation of left ventricular size and function and valvular function 5. Correction of hypokalemia 6. Encourage ambulation
[2017-03-26] MEDS: ENOXAPARIN NA (PORCINE) 100 MG/1 ML DISP.SYRIN SQ SCH (10:28)
[2017-03-26] MEDS ORDERED: APIXABAN 5 MG TABLET PO SCH ×2 (10:42→22:00)
[2017-03-26] MEDS: oxyCODONE HCL 5 MG TABLET PO PRN ×2 (11:21→20:53)
[2017-03-26] MEDS: APIXABAN 5 MG TABLET PO SCH ×2 (11:22→20:59)
[2017-03-26 11:36] LABS: BASOPHIL 0.3 % (0-2.0); MCH 34.5 pg (25.7-33.7); MCHC 33.3 g/dl (32.0-35.9); MEAN CELL VOLUME 103.6 fl (80-96); MEAN PLT VOLUME 9.6 fl (7.5-11.1); PLATELET COUNT 63 K/MM3 (134-434); RDW 16.8 % (11.9-15.9); WHITE BLOOD COUNT 4.9 K/mm3 (4.0-10.0)
[2017-03-26 12:00] LABS: ALBUMIN 2.5 g/dl (3.4-5.0); ALK PHOS 103 U/L (45-117); ANION GAP 8 (8-16); BILIRUBIN,TOTAL 1.3 mg/dL (0.2-1.0); CALCIUM 7.4 mg/dL (8.5-10.1); CO2 27 mmol/L (21-32); CREATININE 0.8 mg/dL (0.7-1.3); GLUCOSE,RANDOM 116 mg/dL (74-106); SGOT/AST 53 U/L (15-37); SGPT/ALT 88 U/L (12-78); TOT PROT 5.2 g/dl (6.4-8.2)
--- NOTE | 2017-03-26 16:32 | EKG ---
Test Reason : Blood Pressure : / mmHG Vent. Rate : 079 BPM Atrial Rate : 079 BPM P-R Int : 152 ms QRS Dur : 098 ms QT Int : 374 ms P-R-T Axes : 038 -05 046 degrees QTc Int : 428 ms NORMAL SINUS RHYTHM NORMAL ECG WHEN COMPARED WITH ECG OF 22-MAR-2017 14:24, SINUS RHYTHM HAS REPLACED ATRIAL FIBRILLATION NONSPECIFIC T WAVE ABNORMALITY HAS REPLACED INVERTED T WAVES IN LATERAL LEADS Confirmed by MD ANABEL, SEAN ([id number]) on 03/26/2017 4:32:05 PM Referred By: CLINT DAVID Confirmed By:SEAN LITTLE MD
--- NOTE | 2017-03-26 16:58 | PN ---
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 (short form) - Note 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: Pt seen/ examined all f/u noted no complains. at bedside. pt reports walks with cane - due to right knee pain. Vital Signs Temp 98.3 F 03/26/17 14:29 Pulse 86 03/26/17 14:29 Resp 20 03/26/17 14:29 BP 94/60 03/26/17 14:29 Pulse Ox 95 03/26/17 10:00 Intake & Output 03/25/17 03/26/17 03/26/17 23:59 11:59 23:59 Intake Total 1645 120 Output Total 750 200 Balance 895 120 -200 Intake: IVPB 320 Oral 1325 120 Output: Urine 750 200 Void 750 200 Other: Voiding Method Urinal Urinal # Unmeasured Voids Void 1 Bowel Movement Yes Yes # Bowel Movements 1 Active Medications Apixaban (Eliquis -) 5 mg PO BID [facility] Last Admin: 03/26/17 11:22 Dose: 5 mg Diltiazem HCl (Cardizem Injection -) 10 mg IVPUSH Q4H PRN PRN Reason: TACHYCARDIA Last Admin: 03/25/17 12:14 Dose: 10 mg Diltiazem HCl (Cardizem Cd -) 120 mg PO DAILY [facility] Last Admin: 03/26/17 11:22 Dose: 120 mg Gabapentin (Neurontin -) 300 mg PO BID [facility] Last Admin: 03/26/17 09:03 Dose: 300 mg Insulin Aspart (Novolog Vial Sliding Scale -) 1 vial SQ TIDAC [facility] PRN Reason: Protocol Last Admin: 03/26/17 11:48 Dose: Not Given Insulin Detemir (Levemir Vial) 8 units SQ BID [facility] Last Admin: 03/26/17 09:03 Dose: 8 units Latanoprost (Xalatan 0.005% Eye Drops -) 1 drop OS HS [facility] Last Admin: 03/25/17 21:34 Dose: 1 drop Metoprolol Tartrate (Lopressor -) 50 mg PO BID [facility] (Dorzolamide 2% Opthalmic Solution) Non-Formulary Med 1 each OS BID [facility] Last Admin: 03/26/17 09:06 Dose: 1 each Ptt's Own Medication ((Combigan)) 1 each OS BID [facility] Last Admin: 03/26/17 09:08 Dose: 1 each Non-Formulary Medication (Patient's Own Med) 1 each OU BID [facility] Last Admin: 03/26/17 09:08 Dose: 1 each Nystatin (Nystatin Oral Suspension -) 500,000 units PO Q6HPO [facility] Last Admin: 03/26/17 13:23 Dose: 500,000 units Oxycodone HCl (Roxicodone -) 10 mg PO BID PRN PRN Reason: SEVERE PAIN Last Admin: 03/26/17 11:21 Dose: 10 mg Pantoprazole Sodium (Protonix -) 40 mg PO DAILY [facility] Last Admin: 03/24/17 10:02 Dose: 40 mg Polyethylene Glycol (Miralax (For Daily Use) -) 17 gm PO DAILY [facility] Last Admin: 03/26/17 09:05 Dose: Not Given CBC, BMP 03/26/17 11:00 03/26/17 11:00 echo-- noted. Physical Examination Constitutional: Yes: No Distress, Calm/ comfortable. throat--- no thrush Cardiovascular: Yes: s1, s2 RRR Respiratory: Yes: clear to auscultation. Gastrointestinal: Yes: Normal Bowel Sounds, Soft, Abdomen, Obese. No: Distention, Tenderness Edema: No Psychiatric: Yes: Alert, Oriented. Imaging - Results Chest X-ray: Image Reviewed (clear) EKG: Image Reviewed (Afib with RVR) A/p clinically better/stable. continue present care started on Eliquis. monitor platlets. physical therapy. Daily out of bed to chair. discharge planning. fall precautions discussed with pt/ - Problem List - Problems (1) Elevated LFTs Code(s): R79.89 - OTHER SPECIFIED ABNORMAL FINDINGS OF BLOOD CHEMISTRY (2) Multiple myeloma in remission Code(s): C90.01 - MULTIPLE MYELOMA IN REMISSION (3) Rapid atrial fibrillation Code(s): I48.91 - UNSPECIFIED ATRIAL FIBRILLATION (4) Thrombocytopenia Code(s): D69.6 - THROMBOCYTOPENIA, UNSPECIFIED
[2017-03-26] MEDS: LATANOPROST 0.005% OPHTH SOLN 2.5ML BOTTLE OS SCH (21:00)
--- NOTE | 2017-03-26 21:35 | PN ---
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 (short form) - Note 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: Patient seen and examined Denies any complaints AFVSS Cor: RSR, No murmurs, No gallops Lungs: Clear to P&A Abd: Soft, Normal bowel sounds, No organomegaly Ext:No significant edema Labs/meds reviewed A/P New Onset A fib: on eliquis Thrombocytopenia ?etiology ( could be meds/fatty liver/chemo/> viral) Today's platelet are improving--24250 MM: s/p SCT in 04/2013 on miantainence veldex last dose on 03/08 for myeloma markers discussed with patients family needs close f/u as outpatient
[2017-03-27 00:07] LABS: A/G RATIO 1.1 (0.7-1.7); ALBUMIN 2.3 g/dL (2.9-4.4); ALPHA-1-GLOBULIN 0.2 g/dL (0.0-0.4); BETA GLOBULIN 0.7 g/dL (0.7-1.3); GAMMA GLOBULIN 0.3 g/dL (0.4-1.8); GLOBULIN, TOTAL 2.2 g/dL (2.2-3.9); M-SPIKE Not Observed g/dL (Not Observed); TOTAL PROTEIN 4.5 g/dL (6.0-8.5)
[2017-03-27] MEDS: NYSTATIN 500,000 UNITS/5 ML SUSPENSION PO SCH ×3 (05:52→17:10)
[2017-03-27] MEDS: INSULIN SLIDING SCALE (NOVOLOG) 1 VIAL SQ SCH ×3 (06:06→17:14)
[2017-03-27 07:33] LABS: MCH 35.3 pg (25.7-33.7); MCHC 34.6 g/dl (32.0-35.9); MEAN PLT VOLUME 8.5 fl (7.5-11.1); PLATELET COUNT 53 K/MM3 (134-434); RDW 16.5 % (11.9-15.9)
[2017-03-27 08:16] LABS: ALBUMIN 2.3 g/dl (3.4-5.0); ANION GAP 8 (8-16); BILIRUBIN,TOTAL 1.3 mg/dL (0.2-1.0); CALCIUM 7.6 mg/dL (8.5-10.1); CO2 27 mmol/L (21-32); CREATININE 0.8 mg/dL (0.7-1.3); GLUCOSE,RANDOM 102 mg/dL (74-106); SGOT/AST 47 U/L (15-37); TOT PROT 4.9 g/dl (6.4-8.2)
[2017-03-27 08:21] LABS: ALK PHOS 95 U/L (45-117); SGPT/ALT 84 U/L (12-78)
[2017-03-27] MEDS: APIXABAN 5 MG TABLET PO SCH ×2 (09:35→21:22)
[2017-03-27] MEDS: INSULIN DETEMIR 100 UNITS/ML MDV SQ SCH ×2 (09:35→21:23)
[2017-03-27] MEDS: BRIMONIDINE OS SCH ×2 (09:35→21:23)
[2017-03-27] MEDS: GABAPENTIN 300 MG CAPSULE (FP) PO SCH ×2 (09:35→21:22)
[2017-03-27] MEDS: METOPROLOL TARTRATE 50 MG TABLET (FP) PO SCH ×2 (09:35→21:22)
[2017-03-27] MEDS: TIMOLOL OS SCH ×2 (09:35→21:23)
--- NOTE | 2017-03-27 09:35 | PN ---
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, Physician History of Present Illness: Remains in NSR, denies chest pain, dyspnea, near syncope or palpitations. - Current Medication List Current Medications: Active Medications Apixaban (Eliquis -) 5 mg PO BID [facility] Last Admin: 03/26/17 20:59 Dose: 5 mg Diltiazem HCl (Cardizem Injection -) 10 mg IVPUSH Q4H PRN PRN Reason: TACHYCARDIA Last Admin: 03/25/17 12:14 Dose: 10 mg Diltiazem HCl (Cardizem Cd -) 120 mg PO DAILY [facility] Last Admin: 03/26/17 11:22 Dose: 120 mg Gabapentin (Neurontin -) 300 mg PO BID [facility] Last Admin: 03/26/17 20:59 Dose: 300 mg Insulin Aspart (Novolog Vial Sliding Scale -) 1 vial SQ TIDAC [facility] PRN Reason: Protocol Last Admin: 03/27/17 06:06 Dose: Not Given Insulin Detemir (Levemir Vial) 8 units SQ BID [facility] Last Admin: 03/26/17 20:59 Dose: 8 units Latanoprost (Xalatan 0.005% Eye Drops -) 1 drop OS HS [facility] Last Admin: 03/26/17 21:00 Dose: 1 drop Metoprolol Tartrate (Lopressor -) 50 mg PO BID [facility] Last Admin: 03/26/17 20:59 Dose: 50 mg (Dorzolamide 2% Opthalmic Solution) Non-Formulary Med 1 each OS BID [facility] Last Admin: 03/26/17 21:00 Dose: 1 each Ptt's Own Medication ((Combigan)) 1 each OS BID [facility] Last Admin: 03/26/17 21:00 Dose: 1 each Non-Formulary Medication (Patient's Own Med) 1 each OU BID [facility] Last Admin: 03/26/17 20:59 Dose: 1 each Nystatin (Nystatin Oral Suspension -) 500,000 units PO Q6HPO [facility] Last Admin: 03/27/17 05:52 Dose: 500,000 units Oxycodone HCl (Roxicodone -) 10 mg PO BID PRN PRN Reason: SEVERE PAIN Last Admin: 03/26/17 20:53 Dose: 10 mg Pantoprazole Sodium (Protonix -) 40 mg PO DAILY [facility] Last Admin: 03/24/17 10:02 Dose: 40 mg Polyethylene Glycol (Miralax (For Daily Use) -) 17 gm PO DAILY [facility] Last Admin: 03/26/17 09:05 Dose: Not Given - Objective Vital Signs: Vital Signs Temperature 98.2 F 03/27/17 06:17 Pulse Rate 83 03/27/17 06:17 Respiratory Rate 18 03/27/17 08:42 Blood Pressure 103/60 03/27/17 06:17 O2 Sat by Pulse Oximetry (%) 93 L 03/27/17 08:42 Constitutional: Yes: No Distress, Calm Neck: Yes: Supple Cardiovascular: Yes: Regular Rate and Rhythm Respiratory: Yes: Regular, CTA Bilaterally, On Nasal O2 Gastrointestinal: Yes: Normal Bowel Sounds, Soft Edema: No Labs: CBC, BMP 03/27/17 06:00 03/27/17 06:00 INR, PTT INR 1.03 (0.82-1.09) 03/23/17 11:13 - ....Imaging EKG: Report Reviewed (NSR@79) Problem List - Problems (1) Diastolic dysfunction Code(s): I51.9 - HEART DISEASE, UNSPECIFIED (2) Hypokalemia Code(s): E87.6 - HYPOKALEMIA (3) Multiple myeloma in remission Code(s): C90.01 - MULTIPLE MYELOMA IN REMISSION (4) Rapid atrial fibrillation Code(s): I48.91 - UNSPECIFIED ATRIAL FIBRILLATION (5) Thrombocytopenia Code(s): D69.6 - THROMBOCYTOPENIA, UNSPECIFIED Assessment/Plan Echo: 03/27/2017 Normal biventricular size and fxn, normal biatrial sizes, no sig valve abnl 1. Chest pain syndrome and progressive exertional dyspnea referable to 2. Coronary artery disease angina pectoris and 3. Diastolic LV dysfunction with class 0-I NYHA classification LV failure exacerbated by 4. Paroxysmal atrial fibrillation with periods of rapid ventricular response now in sinus rhythm [id number] score of 3, currently on Lovenox therapy 5. Hypertension 6. Hyperglycemia 7. Hypercholesterolemia 8. Anemia 9. Thrombocytopenia may be referable meds/fatty liver/chemo/> viral 10. History of multiple myeloma post stem cell transplant currently receiving chemotherapy 11. History of peripheral neuropathy PLAN: 1. Continue Eliquis 5 bid with caution considering the above-noted thrombocytopenia 2. Continue Lopressor 50 bid and Cardizem CD 120 qd with IV Cardizem as needed for rate control 3. Recommend the addition of ACEI or ARBS hemodynamics permitting and not contraindicated 4. Encourage ambulation, d/c planning with f/u in office [phone]
[2017-03-27] MEDS: OPTHALMIC OS SCH ×2 (09:36→21:28)
[2017-03-27] MEDS: DORZOLAMIDE 2% OS SCH ×2 (09:36→21:28)
[2017-03-27] MEDS: POLYETHYLENE GLYCOL 3350 119 GM BTL PO SCH (09:41)
--- NOTE | 2017-03-27 10:50 | CON.NEURO ---
Consult - History of Present Illness History of Present Illness: 71 Year old male history of multiple myeloma (s/0 stem cell transplant), htn , Neuropathy . He admitted to hospital for New onset atrial fibrillation and has been started on eliquis. Patient has no focal neurological symptoms. He was told that there was a cholestrol particulate caused him to have loss of vision. For that he was on aggrenox. He is seeing Dr Monaco . He saw Dr Monaco one month and advised to continue aggrenox. 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: Peripheral Neuropathy Cardio/Vascular: Yes: HTN - Alcohol/Substance Use Hx Alcohol Use: No - Smoking History Smoking history: Unknown if ever smoked Have you smoked in the past 12 months: No Home Medications - Allergies Allergies/Adverse Reactions: Allergies Allergy/AdvReac Type Severity Reaction Status Date / Time No Known Allergies Allergy Unverified 03/22/17 14:21 - Home Medications Home Medications: Ambulatory Orders Allopurinol 300 mg PO ASDIR 10/04/16 Aspirin [ASA -] 81 mg PO DAILY 10/04/16 Aspirin/Dipyridamole [Aggrenox -] 1 combo PO BID 10/04/16 Atorvastatin Ca [Lipitor] 40 mg PO HS 10/04/16 Bortezomib [Velcade] 0.1 mg IV ASDIR 10/04/16 Dexamethasone [Decadron -] 4 mg PO Q6H 10/04/16 Gabapentin 400 mg PO ASDIR 10/04/16 Oxycodone Sr [Oxycontin] 10 mg PO BID 10/04/16 Pantoprazole Sodium [Protonix -] 40 mg PO DAILY 10/04/16 Prednisone 10 mg PO ASDIR 10/04/16 Zoledronic Acid [Zometa -] 4 mg IVPB ASDIR 10/04/16 Dorzolamide HCl [Trusopt 2%] 1 drop OD DAILY 02/11/17 Travoprost [Travatan Z] 5 ml OP DAILY 02/11/17 Furosemide [Lasix] 20 mg PO DAILY 03/22/17 Physical Exam-Neuro Vital Signs: Vital Signs Temperature 98.2 F 03/27/17 06:17 Pulse Rate 83 03/27/17 06:17 Respiratory Rate 18 03/27/17 08:42 Blood Pressure 103/60 03/27/17 06:17 O2 Sat by Pulse Oximetry (%) 93 L 03/27/17 08:42 Labs: CBC, BMP 03/27/17 06:00 03/27/17 06:00 INR, PTT INR 1.03 (0.82-1.09) 03/23/17 11:13 Assessment/Plan CC history of amouris fugax 11 year ago 71 Year old male history of multiple myeloma (s/0 stem cell transplant), htn , Neuropathy . He admitted to hospital for New onset atrial fibrillation and has been started on eliquis. Patient has no focal neurological symptoms. He was told that there was a cholestrol particulate caused him to have loss of vision. For that he was on aggrenox. He is seeing Dr Monaco . He saw Dr Monaco one month and advised to continue aggrenox. Medical History as above SH,FH,ROS reviewed in chart NKDA Home Medication Allopurinol 300 mg PO ASDIR 10/04/16 Aspirin [ASA -] 81 mg PO DAILY 10/04/16 Aspirin/Dipyridamole [Aggrenox -] 1 combo PO BID 10/04/16 Atorvastatin Ca [Lipitor] 40 mg PO HS 10/04/16 Bortezomib [Velcade] 0.1 mg IV ASDIR 10/04/16 Dexamethasone [Decadron -] 4 mg PO Q6H 10/04/16 Gabapentin 400 mg PO ASDIR 10/04/16 Oxycodone Sr [Oxycontin] 10 mg PO BID 10/04/16 Pantoprazole Sodium [Protonix -] 40 mg PO DAILY 10/04/16 Prednisone 10 mg PO ASDIR 10/04/16 Zoledronic Acid [Zometa -] 4 mg IVPB ASDIR 10/04/16 Dorzolamide HCl [Trusopt 2%] 1 drop OD DAILY 02/11/17 Travoprost [Travatan Z] 5 ml OP DAILY 02/11/17 Furosemide [Lasix] 20 mg PO DAILY 03/22/17 Neurological Examination Alert oriented x 3 , speech is normal EOMI, no face asymmetry there is bilateral foot drop, more so on left side, otherwise strength is normal sensation is normal reflex are generalized diminished A/P 1. Peripheral neuropahty ( chronic problem) stable and continue gabapentin 2. 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 He was explained high risk of bleed with dual therapy( anticoagulation and antiplatelet ) He need to follow up with Dr Monaco regarding starting baby aspirin , would hold for now. Also spoke to Dr JAMES sweeney this. Thanking yanna Wesley MD
--- NOTE | 2017-03-27 11:58 | PN ---
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 (short form) - Note 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: Pt seen/ examined. feels weak today dry cough. neurology consult noted/ appreciated. denies cp. no sob. Vital Signs Temp 98.2 F 03/27/17 06:17 Pulse 83 03/27/17 06:17 Resp 18 03/27/17 08:42 BP 103/60 03/27/17 06:17 Pulse Ox 93 L 03/27/17 08:42 Intake & Output 03/26/17 03/26/17 03/27/17 11:59 23:59 11:59 Intake Total 120 20 640 Output Total 200 Balance 120 -180 640 Intake: IV 10 rfa 10 Oral 120 10 640 Output: Urine 200 Void 200 Other: Voiding Method Urinal Urinal Urinal # Unmeasured Voids Void 1 1 Bowel Movement Yes Yes # Bowel Movements 1 Active Medications Apixaban (Eliquis -) 5 mg PO BID [facility] Last Admin: 03/27/17 09:35 Dose: 5 mg Diltiazem HCl (Cardizem Injection -) 10 mg IVPUSH Q4H PRN PRN Reason: TACHYCARDIA Last Admin: 03/25/17 12:14 Dose: 10 mg Diltiazem HCl (Cardizem Cd -) 120 mg PO DAILY [facility] Last Admin: 03/27/17 09:35 Dose: 120 mg Gabapentin (Neurontin -) 300 mg PO BID [facility] Last Admin: 03/27/17 09:35 Dose: 300 mg Insulin Aspart (Novolog Vial Sliding Scale -) 1 vial SQ TIDAC [facility] PRN Reason: Protocol Last Admin: 03/27/17 06:06 Dose: Not Given Insulin Detemir (Levemir Vial) 8 units SQ BID [facility] Last Admin: 03/27/17 09:35 Dose: 8 units Latanoprost (Xalatan 0.005% Eye Drops -) 1 drop OS HS [facility] Last Admin: 03/26/17 21:00 Dose: 1 drop Metoprolol Tartrate (Lopressor -) 50 mg PO BID [facility] Last Admin: 03/27/17 09:35 Dose: 50 mg (Dorzolamide 2% Opthalmic Solution) Non-Formulary Med 1 each OS BID [facility] Last Admin: 03/27/17 09:36 Dose: 1 each Ptt's Own Medication ((Combigan)) 1 each OS BID [facility] Last Admin: 03/27/17 09:35 Dose: 1 each Non-Formulary Medication (Patient's Own Med) 1 each OU BID [facility] Last Admin: 03/27/17 09:40 Dose: 1 each Nystatin (Nystatin Oral Suspension -) 500,000 units PO Q6HPO [facility] Last Admin: 03/27/17 05:52 Dose: 500,000 units Oxycodone HCl (Roxicodone -) 10 mg PO BID PRN PRN Reason: SEVERE PAIN Last Admin: 03/26/17 20:53 Dose: 10 mg Pantoprazole Sodium (Protonix -) 40 mg PO DAILY JAMIE Last Admin: 03/24/17 10:02 Dose: 40 mg Polyethylene Glycol (Miralax (For Daily Use) -) 17 gm PO DAILY [facility] Last Admin: 03/27/17 09:41 Dose: Not Given CBC, BMP 03/27/17 06:00 03/27/17 06:00 Physical Examination Constitutional: Yes: No Distress, comfortable. Cardiovascular: Yes: s1, s2 RRR. Respiratory: Yes: clear to auscultation. Gastrointestinal: Yes: Normal Bowel Sounds, Soft, Abdomen, Obese. No: Distention, Tenderness Edema: No Psychiatric: Yes: Alert, Oriented. Imaging - Results Chest X-ray: Image Reviewed (clear) EKG: Image Reviewed (Afib with RVR) A/p clinically stable weak today bp on low side monitor today continue present care monitor platlets. physical therapy. Daily out of bed to chair. discharge planning.-- likely tomorrow dont want top go home due to weakness and weather . will follow. Problem List - Problems (1) Elevated LFTs Code(s): R79.89 - OTHER SPECIFIED ABNORMAL FINDINGS OF BLOOD CHEMISTRY (2) Multiple myeloma in remission Code(s): C90.01 - MULTIPLE MYELOMA IN REMISSION (3) Rapid atrial fibrillation Code(s): I48.91 - UNSPECIFIED ATRIAL FIBRILLATION (4) Thrombocytopenia Code(s): D69.6 - THROMBOCYTOPENIA, UNSPECIFIED
[2017-03-27] MEDS: oxyCODONE HCL 5 MG TABLET PO PRN (21:22)
[2017-03-27] MEDS: LATANOPROST 0.005% OPHTH SOLN 2.5ML BOTTLE OS SCH (21:28)
--- NOTE | 2017-03-27 22:10 | PN ---
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 (short form) - Note 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: Patient seen and examined Denies any complaints Last Vital Signs Temp Pulse Resp BP Pulse Ox 98.1 F 85 18 109/67 93 L 03/27/17 18:00 03/27/17 18:00 03/27/17 18:00 03/27/17 18:00 03/27/17 08:42 Cor: RSR, No murmurs, No gallops Lungs: Clear to P&A Abd: Soft, Normal bowel sounds, No organomegaly Ext:No significant edema Labs/meds reviewed A/P New Onset A fib: on eliquis Thrombocytopenia ?etiology ( could be meds/fatty liver/chemo/> viral) Today's platelet [id number] will need close f/u in the offoce MM: s/p SCT in 04/2013 on miantainence veldex last dose on 03/08 for myeloma markers close f/u as outpatient
[2017-03-28] MEDS: NYSTATIN 500,000 UNITS/5 ML SUSPENSION PO SCH ×4 (01:30→17:01)
[2017-03-28 07:21] LABS: MCH 35.3 pg (25.7-33.7); MCHC 34.7 g/dl (32.0-35.9); MEAN CELL VOLUME 101.7 fl (80-96); MEAN PLT VOLUME 7.6 fl (7.5-11.1); PLATELET COUNT 47 K/MM3 (134-434); RDW 16.5 % (11.9-15.9); WHITE BLOOD COUNT 3.6 K/mm3 (4.0-10.0)
[2017-03-28 07:52] LABS: ALBUMIN 2.1 g/dl (3.4-5.0); ANION GAP 8 (8-16); CO2 26 mmol/L (21-32); GLUCOSE,RANDOM 84 mg/dL (74-106)
[2017-03-28 07:57] LABS: ALK PHOS 98 U/L (45-117); BILIRUBIN,TOTAL 1.3 mg/dL (0.2-1.0); CALCIUM 7.2 mg/dL (8.5-10.1); CREATININE 0.8 mg/dL (0.7-1.3); SGOT/AST 46 U/L (15-37); SGPT/ALT 81 U/L (12-78); TOT PROT 4.7 g/dl (6.4-8.2)
[2017-03-28] MEDS: INSULIN SLIDING SCALE (NOVOLOG) 1 VIAL SQ SCH ×3 (08:18→16:45)
[2017-03-28] MEDS: INSULIN DETEMIR 100 UNITS/ML MDV SQ SCH ×2 (09:06→21:12)
[2017-03-28] MEDS: APIXABAN 5 MG TABLET PO SCH ×2 (09:06→21:07)
[2017-03-28] MEDS: METOPROLOL TARTRATE 50 MG TABLET (FP) PO SCH ×2 (09:06→21:07)
[2017-03-28] MEDS: POLYETHYLENE GLYCOL 3350 119 GM BTL PO SCH (09:06)
[2017-03-28] MEDS: TIMOLOL OS SCH ×2 (09:06→21:08)
[2017-03-28] MEDS: BRIMONIDINE OS SCH ×2 (09:06→21:08)
[2017-03-28] MEDS: GABAPENTIN 300 MG CAPSULE (FP) PO SCH ×2 (09:06→21:07)
[2017-03-28] MEDS: OPTHALMIC OS SCH ×2 (09:07→21:08)
[2017-03-28] MEDS: DORZOLAMIDE 2% OS SCH ×2 (09:07→21:08)
[2017-03-28 09:34] LABS: TOTAL CELLS COUNTED 100
[2017-03-28 09:35] LABS: MYELOCYTE 2 % (0-2); PLATELET ESTIMATE DECREASED
--- NOTE | 2017-03-28 11:05 | PN ---
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 (short form) - Note 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: 71 Year old male history of multiple myeloma (s/0 stem cell transplant), htn , Neuropathy . He admitted to hospital for New onset atrial fibrillation and has been started on eliquis. Patient has no focal neurological symptoms. He was told that there was a cholestrol particulate caused him to have loss of vision. For that he was on aggrenox. He is seeing Dr Monaco . He saw Dr Monaco one month and advised to continue aggrenox. Neurological Examination Alert oriented x 3 , speech is normal EOMI, no face asymmetry there is bilateral foot drop, more so on left side, otherwise strength is normal sensation is normal reflex are generalized diminished (EXAM UNCHANGED ) A/P 1. Peripheral neuropahty ( chronic problem) stable and continue gabapentin 2. History of Stroke/tia on aggrenox , Given he has been diagnosed with Atrial Fibrillation he is on Eliquis, and now his platelet is 50s. Suggest to Hold Antiplatelet or Aggrenox for now. As Risk of bleed would be high with Dual Therapy. He need to follow up with Dr Monaco regarding starting baby aspirin , would hold for now. Thanking yanna Wesley MD
--- NOTE | 2017-03-28 12:33 | DS ---
Physical Examination Vital Signs: Vital Signs Temperature 98.5 F 03/28/17 06:00 Pulse Rate 84 03/28/17 06:00 Respiratory Rate 20 03/28/17 06:00 Blood Pressure 113/61 03/28/17 06:00 O2 Sat by Pulse Oximetry (%) 94 L 03/27/17 21:00 Labs: CBC, BMP 03/28/17 06:00 03/28/17 06:00 Discharge Summary Reason For Visit: ATRIAL FIB WITH RAPID VENTRICULAR RESPONSE Current Active Problems Atrial fibrillation (Acute) Diastolic dysfunction (Acute) Elevated LFTs (Acute) Hypokalemia (Acute) Multiple myeloma in remission (Acute) Rapid atrial fibrillation (Acute) Steroid-induced diabetes (Acute) Thrombocytopenia (Acute) Condition: Good - Instructions Referrals: Avtar Melchor MD [Primary Care Provider] - - Home Medications Comprehensive Discharge Medication List: Ambulatory Orders Allopurinol 300 mg PO ASDIR 10/04/16 Atorvastatin Ca [Lipitor] 40 mg PO HS 10/04/16 Bortezomib [Velcade -] 0.1 mg IV ASDIR 10/04/16 Dexamethasone [Decadron -] 4 mg PO Q6H 10/04/16 Gabapentin 400 mg PO ASDIR 10/04/16 Oxycodone Sr [Oxycontin] 10 mg PO BID 10/04/16 Pantoprazole Sodium [Protonix -] 40 mg PO DAILY 10/04/16 Zoledronic Acid [Zometa -] 4 mg IVPB ASDIR 10/04/16 Dorzolamide HCl [Trusopt 2% -] 1 drop OD DAILY 02/11/17 Travoprost [Travatan Z] 5 ml OP DAILY 02/11/17 Furosemide [Lasix] 20 mg PO DAILY 03/22/17 Apixaban [Eliquis -] 5 mg PO BID 30 Days #60 tablet 03/27/17 Diltiazem Cd [Cardizem Cd -] 120 mg PO DAILY #30 cap.cd.24h 03/27/17 Insulin (Levemir) [Levemir Vial] 8 units SQ BID ml 03/27/17 Metoprolol Tartrate [Lopressor -] 50 mg PO BID #90 tablet 03/27/17 Oxycodone HCl [Roxicodone -] 10 mg PO BID PRN #30 tablet MDD 2 03/27/17 Patient's Own Medication [Patient's Own Med (Nf) -] 1 each OS BID med 03/27/17 Patient's Own Medication [Patient's Own Med (Nf) -] 1 each OU BID med 03/27/17 Polyethylene Glycol 3350 [Miralax 119 gm Btl -] 17 gm PO DAILY bottle 03/27/17
--- NOTE | 2017-03-28 12:45 | PN ---
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 (short form) - Note 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: Pt seen/ examined. feels well. no complains Vital Signs Temp 98.5 F 03/28/17 06:00 Pulse 84 03/28/17 06:00 Resp 20 03/28/17 06:00 BP 113/61 03/28/17 06:00 Pulse Ox 94 L 03/27/17 21:00 Intake & Output 03/27/17 03/28/17 03/28/17 23:59 11:59 23:59 Intake Total 490 350 Output Total 400 250 Balance 90 100 Intake: Oral 490 350 Output: Urine 400 250 Void 400 250 Other: Voiding Method Urinal Urinal Bowel Movement No # Bowel Movements 1 Active Medications Apixaban (Eliquis -) 5 mg PO BID [facility] Last Admin: 03/28/17 09:06 Dose: 5 mg Diltiazem HCl (Cardizem Injection -) 10 mg IVPUSH Q4H PRN PRN Reason: TACHYCARDIA Last Admin: 03/25/17 12:14 Dose: 10 mg Diltiazem HCl (Cardizem Cd -) 120 mg PO DAILY [facility] Last Admin: 03/28/17 09:06 Dose: 120 mg Gabapentin (Neurontin -) 300 mg PO BID [facility] Last Admin: 03/28/17 09:06 Dose: 300 mg Insulin Aspart (Novolog Vial Sliding Scale -) 1 vial SQ TIDAC [facility] PRN Reason: Protocol Last Admin: 03/28/17 11:35 Dose: Not Given Insulin Detemir (Levemir Vial) 8 units SQ BID [facility] Last Admin: 03/28/17 09:06 Dose: 8 units Latanoprost (Xalatan 0.005% Eye Drops -) 1 drop OS HS [facility] Last Admin: 03/27/17 21:28 Dose: 1 drop Metoprolol Tartrate (Lopressor -) 50 mg PO BID [facility] Last Admin: 03/28/17 09:06 Dose: 50 mg (Dorzolamide 2% Opthalmic Solution) Non-Formulary Med 1 each OS BID [facility] Last Admin: 03/28/17 09:07 Dose: 1 each Ptt's Own Medication ((Combigan)) 1 each OS BID [facility] Last Admin: 03/28/17 09:06 Dose: 1 each Non-Formulary Medication (Patient's Own Med) 1 each OU BID [facility] Last Admin: 03/28/17 09:07 Dose: 1 each Nystatin (Nystatin Oral Suspension -) 500,000 units PO Q6HPO [facility] Last Admin: 03/28/17 11:33 Dose: 500,000 units Oxycodone HCl (Roxicodone -) 10 mg PO BID PRN PRN Reason: SEVERE PAIN Last Admin: 03/27/17 21:22 Dose: 10 mg Pantoprazole Sodium (Protonix -) 40 mg PO DAILY [facility] Last Admin: 03/24/17 10:02 Dose: 40 mg Polyethylene Glycol (Miralax (For Daily Use) -) 17 gm PO DAILY [facility] Last Admin: 03/28/17 09:06 Dose: Not Given Potassium Chloride (Potassium Chloride Oral Liquid) 40 meq PO ONCE ONE Stop: 03/28/17 12:28 CBC, BMP 03/28/17 06:00 03/28/17 06:00 Physical Examination Constitutional: Yes: No Distress, comfortable. Cardiovascular: Yes: s1, s2 RRR. Respiratory: Yes: clear to auscultation. Gastrointestinal: Yes: Normal Bowel Sounds, Soft, Abdomen, Obese. No: Distention, Tenderness Edema: No Psychiatric: Yes: Alert, Oriented. Imaging - Results Chest X-ray: Image Reviewed (clear) EKG: Image Reviewed (Afib with RVR) A/p clinically stable continue present care monitor platlets. physical therapy. Daily out of bed to chair. discharge planning.-- likely tomorrow. discussed with Dr. Sim-- she will see him today and she would like to transfuse platlets today discussed with pt/ who at bedside as well as nursing staff. will follow. Problem List - Problems (1) Elevated LFTs Code(s): R79.89 - OTHER SPECIFIED ABNORMAL FINDINGS OF BLOOD CHEMISTRY (2) Multiple myeloma in remission Code(s): C90.01 - MULTIPLE MYELOMA IN REMISSION (3) Rapid atrial fibrillation Code(s): I48.91 - UNSPECIFIED ATRIAL FIBRILLATION (4) Thrombocytopenia Code(s): D69.6 - THROMBOCYTOPENIA, UNSPECIFIED
[2017-03-28] MEDS ORDERED: POTASSIUM CHLORIDE ORAL LIQUID 20 MEQ/15 ML PO ONE (13:00)
[2017-03-28] MEDS: oxyCODONE HCL 5 MG TABLET PO PRN (13:58)
--- NOTE | 2017-03-28 18:22 | PN ---
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 (short form) - Note 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: Patient seen and examined Denies any complaints Last Vital Signs Temp Pulse Resp BP Pulse Ox 98.2 F 88 18 93/63 97 03/28/17 14:18 03/28/17 14:18 03/28/17 14:18 03/28/17 14:18 03/28/17 10:00 Cor: RSR, No murmurs, No gallops Lungs: Clear to P&A Abd: Soft, Normal bowel sounds, No organomegaly Ext:No significant edema Lab Results WBC 3.6 K/mm3 (4.0-10.0) L 03/28/17 06:00 RBC 2.72 M/mm3 (4.00-5.60) L 03/28/17 06:00 Hgb 9.6 GM/dL (11.7-16.9) L 03/28/17 06:00 Hct 27.7 % (35.4-49) L 03/28/17 06:00 MCV 101.7 fl (80-96) H 03/28/17 06:00 MCHC 34.7 g/dl (32.0-35.9) 03/28/17 06:00 RDW 16.5 % (11.9-15.9) H 03/28/17 06:00 Plt Count 47 K/MM3 (134-434) L 03/28/17 06:00 Sodium 138 mmol/L (136-145) 03/28/17 06:00 Potassium 3.2 mmol/L (3.5-5.1) L 03/28/17 06:00 Chloride 104 mmol/L (98-107) 03/28/17 06:00 Carbon Dioxide 26 mmol/L (21-32) 03/28/17 06:00 Anion Gap 8 (8-16) 03/28/17 06:00 BUN 12 mg/dL (7-18) 03/28/17 06:00 Creatinine 0.8 mg/dL (0.7-1.3) 03/28/17 06:00 Random Glucose 84 mg/dL (74-106) 03/28/17 06:00 Calcium 7.2 mg/dL (8.5-10.1) L 03/28/17 06:00 INR 1.03 (0.82-1.09) 03/23/17 11:13 Home Medication List Medication Instructions Recorded Confirmed Type Allopurinol 300 mg PO ASDIR 10/04/16 03/22/17 History Atorvastatin Ca [Lipitor] 40 mg PO HS 10/04/16 03/22/17 History Bortezomib [Velcade -] 0.1 mg IV ASDIR 10/04/16 03/22/17 History Gabapentin 400 mg PO ASDIR 10/04/16 03/22/17 History Oxycodone Sr [Oxycontin] 10 mg PO BID 10/04/16 03/22/17 History Pantoprazole Sodium [Protonix -] 40 mg PO DAILY 10/04/16 03/22/17 History Zoledronic Acid [Zometa -] 4 mg IVPB ASDIR 10/04/16 03/22/17 History Dorzolamide HCl [Trusopt 2% -] 1 drop OD DAILY 02/11/17 03/22/17 History Travoprost [Travatan Z] 5 ml OP DAILY 02/11/17 03/22/17 History Furosemide [Lasix] 20 mg PO DAILY 03/22/17 03/22/17 History Active Medications Generic Name Dose Route Start Last Admin Trade Name Freq PRN Reason Stop Dose Admin Apixaban 5 mg 03/26/17 11:00 03/28/17 09:06 Eliquis - PO 5 mg BID JAMIE Administration Diltiazem HCl 10 mg 03/22/17 19:35 03/25/17 12:14 Cardizem Injection - IVPUSH 10 mg Q4H PRN Administration TACHYCARDIA Diltiazem HCl 120 mg 03/26/17 10:15 03/28/17 09:06 Cardizem Cd - PO 120 mg DAILY JAMIE Administration Gabapentin 300 mg 03/23/17 08:15 03/28/17 09:06 Neurontin - PO 300 mg BID JAMIE Administration Insulin Aspart 1 vial 03/22/17 19:45 03/28/17 16:45 Novolog Vial Sliding Scale - SQ Not Given TIDAC [facility] Protocol Insulin Detemir 8 units 03/23/17 22:00 03/28/17 09:06 Levemir Vial SQ 8 units BID JAMIE Administration Latanoprost 1 drop 03/22/17 22:00 03/27/17 21:28 Xalatan 0.005% Eye Drops - OS 1 drop HS JAMIE Administration Metoprolol Tartrate 50 mg 03/26/17 22:00 03/28/17 09:06 Lopressor - PO 50 mg BID JAMIE Administration (Dorzolamide 2% 1 each 03/25/17 22:00 03/28/17 09:07 Opthalmic Solution) OS 1 each Non-Formulary Med BID JAMIE Administration Ptt's Own Medication 1 each 03/25/17 22:00 03/28/17 09:06 (Combigan) OS 1 each BID JAMIE Administration Non-Formulary Medication 1 each 03/25/17 22:00 03/28/17 09:07 Patient's Own Med OU 1 each BID JAMIE Administration Nystatin 500,000 units 03/24/17 18:00 03/28/17 17:01 Nystatin Oral Suspension - PO 500,000 units Q6HPO JAMIE Administration Oxycodone HCl 10 mg 03/25/17 20:03 03/28/17 13:58 Roxicodone - PO 10 mg BID PRN Administration SEVERE PAIN Pantoprazole Sodium 40 mg 03/23/17 10:00 03/24/17 10:02 Protonix - PO 40 mg DAILY JAMIE Administration Polyethylene Glycol 17 gm 03/23/17 10:00 03/28/17 09:06 Miralax (For Daily Use) - PO Not Given DAILY JAMIE A/P New Onset A fib: on eliquis Thrombocytopenia ?etiology ( could be meds? velcade/fatty liver/chemo/> viral) Today's platelet [id number] will need close f/u in the offoce as patient is on a/c guido MM: s/p SCT in 04/2013 on miantainence dick-dex last dose on 03/08 SIFE is negative close f/u as outpatient
[2017-03-28] MEDS ORDERED: oxyCODONE HCL 5 MG TABLET PO PRN (20:36)
[2017-03-28] MEDS: LATANOPROST 0.005% OPHTH SOLN 2.5ML BOTTLE OS SCH (21:13)
[2017-03-29] MEDS: NYSTATIN 500,000 UNITS/5 ML SUSPENSION PO SCH ×4 (01:05→17:37)
[2017-03-29] MEDS: INSULIN SLIDING SCALE (NOVOLOG) 1 VIAL SQ SCH ×3 (06:36→16:16)
[2017-03-29] MEDS: APIXABAN 5 MG TABLET PO SCH (09:14)
[2017-03-29] MEDS: METOPROLOL TARTRATE 50 MG TABLET (FP) PO SCH (09:14)
[2017-03-29] MEDS: GABAPENTIN 300 MG CAPSULE (FP) PO SCH (09:14)
[2017-03-29] MEDS: INSULIN DETEMIR 100 UNITS/ML MDV SQ SCH (09:15)
[2017-03-29] MEDS: POLYETHYLENE GLYCOL 3350 119 GM BTL PO SCH (09:16)
[2017-03-29] MEDS: DORZOLAMIDE 2% OS SCH (09:17)
[2017-03-29] MEDS: OPTHALMIC OS SCH (09:17)
[2017-03-29] MEDS: BRIMONIDINE OS SCH (09:18)
[2017-03-29] MEDS: TIMOLOL OS SCH (09:18)
--- NOTE | 2017-03-29 09:37 | PN ---
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 (short form) - Note 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: Pt seen/ examined. feels well. no complains. oncology f/u noted-- not transfused platlets yesterday. Vital Signs Temp 98.5 F 03/29/17 06:00 Pulse 89 03/29/17 06:00 Resp 18 03/29/17 09:00 BP 106/64 03/29/17 06:00 Pulse Ox 93 L 03/29/17 09:00 Intake & Output 03/28/17 03/28/17 03/29/17 11:59 23:59 11:59 Intake Total 350 700 Output Total 250 100 Balance 100 700 -100 Intake: Oral 350 700 Output: Urine 250 100 Void 250 100 Other: Voiding Method Urinal Urinal Urinal # Unmeasured Voids Void 1 Bowel Movement No Active Medications Apixaban (Eliquis -) 5 mg PO BID [facility] Last Admin: 03/29/17 09:14 Dose: 5 mg Diltiazem HCl (Cardizem Injection -) 10 mg IVPUSH Q4H PRN PRN Reason: TACHYCARDIA Last Admin: 03/25/17 12:14 Dose: 10 mg Diltiazem HCl (Cardizem Cd -) 120 mg PO DAILY [facility] Last Admin: 03/29/17 09:14 Dose: 120 mg Gabapentin (Neurontin -) 300 mg PO BID [facility] Last Admin: 03/29/17 09:14 Dose: 300 mg Insulin Aspart (Novolog Vial Sliding Scale -) 1 vial SQ TIDAC [facility] PRN Reason: Protocol Last Admin: 03/29/17 06:36 Dose: Not Given Insulin Detemir (Levemir Vial) 8 units SQ BID [facility] Last Admin: 03/29/17 09:15 Dose: 8 units Latanoprost (Xalatan 0.005% Eye Drops -) 1 drop OS HS [facility] Last Admin: 03/28/17 21:13 Dose: 1 drop Metoprolol Tartrate (Lopressor -) 50 mg PO BID [facility] Last Admin: 03/29/17 09:14 Dose: 50 mg (Dorzolamide 2% Opthalmic Solution) Non-Formulary Med 1 each OS BID [facility] Last Admin: 03/29/17 09:17 Dose: 1 each Ptt's Own Medication ((Combigan)) 1 each OS BID [facility] Last Admin: 03/29/17 09:18 Dose: 1 each Non-Formulary Medication (Patient's Own Med) 1 each OU BID [facility] Last Admin: 03/29/17 09:23 Dose: 1 each Nystatin (Nystatin Oral Suspension -) 500,000 units PO Q6HPO [facility] Last Admin: 03/29/17 06:36 Dose: 500,000 units Oxycodone HCl (Roxicodone -) 10 mg PO BID PRN PRN Reason: PAIN Last Admin: 03/28/17 21:07 Dose: 10 mg Pantoprazole Sodium (Protonix -) 40 mg PO DAILY [facility] Last Admin: 03/24/17 10:02 Dose: 40 mg Polyethylene Glycol (Miralax (For Daily Use) -) 17 gm PO DAILY [facility] Last Admin: 03/29/17 09:16 Dose: Not Given Physical Examination Constitutional: Yes: No Distress, comfortable. Cardiovascular: Yes: s1, s2 RRR. Respiratory: Yes: clear to auscultation. Gastrointestinal: Yes: Normal Bowel Sounds, Soft, Abdomen, Obese. No: Distention, Tenderness Edema: No Psychiatric: Yes: Alert, Oriented x 3. Imaging - Results Chest X-ray: Image Reviewed (clear) EKG: Image Reviewed (Afib with RVR) A/p clinically stable continue present care monitor platlets. physical therapy. Daily out of bed to chair. discharge planning.-- likely today. check labs today before discharge pt will also requirs pre- authorization for Eliquis . cardiology to follow discussed with telehealth case manager also. will discuss with Dr. Sim-- Problem List - Problems (1) Elevated LFTs Code(s): R79.89 - OTHER SPECIFIED ABNORMAL FINDINGS OF BLOOD CHEMISTRY (2) Multiple myeloma in remission Code(s): C90.01 - MULTIPLE MYELOMA IN REMISSION (3) Rapid atrial fibrillation Code(s): I48.91 - UNSPECIFIED ATRIAL FIBRILLATION (4) Thrombocytopenia Code(s): D69.6 - THROMBOCYTOPENIA, UNSPECIFIED
--- NOTE | 2017-03-29 10:49 | PN ---
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, Physician History of Present Illness: Remains in NSR, denies chest pain, dyspnea, near syncope or palpitations. - Current Medication List Current Medications: Active Medications Apixaban (Eliquis -) 5 mg PO BID ON LICENSE OF [facility] Last Admin: 03/29/17 09:14 Dose: 5 mg Diltiazem HCl (Cardizem Injection -) 10 mg IVPUSH Q4H PRN PRN Reason: TACHYCARDIA Last Admin: 03/25/17 12:14 Dose: 10 mg Diltiazem HCl (Cardizem Cd -) 120 mg PO DAILY ON LICENSE OF [facility] Last Admin: 03/29/17 09:14 Dose: 120 mg Gabapentin (Neurontin -) 300 mg PO BID ON LICENSE OF [facility] Last Admin: 03/29/17 09:14 Dose: 300 mg Insulin Aspart (Novolog Vial Sliding Scale -) 1 vial SQ TIDAC ON LICENSE OF [facility] PRN Reason: Protocol Last Admin: 03/29/17 06:36 Dose: Not Given Insulin Detemir (Levemir Vial) 8 units SQ BID ON LICENSE OF [facility] Last Admin: 03/29/17 09:15 Dose: 8 units Latanoprost (Xalatan 0.005% Eye Drops -) 1 drop OS HS ON LICENSE OF [facility] Last Admin: 03/28/17 21:13 Dose: 1 drop Metoprolol Tartrate (Lopressor -) 50 mg PO BID ON LICENSE OF [facility] Last Admin: 03/29/17 09:14 Dose: 50 mg (Dorzolamide 2% Opthalmic Solution) Non-Formulary Med 1 each OS BID ON LICENSE OF [facility] Last Admin: 03/29/17 09:17 Dose: 1 each Ptt's Own Medication ((Combigan)) 1 each OS BID ON LICENSE OF [facility] Last Admin: 03/29/17 09:18 Dose: 1 each Non-Formulary Medication (Patient's Own Med) 1 each OU BID ON LICENSE OF [facility] Last Admin: 03/29/17 09:23 Dose: 1 each Nystatin (Nystatin Oral Suspension -) 500,000 units PO Q6HPO ON LICENSE OF [facility] Last Admin: 03/29/17 06:36 Dose: 500,000 units Oxycodone HCl (Roxicodone -) 10 mg PO BID PRN PRN Reason: PAIN Last Admin: 03/28/17 21:07 Dose: 10 mg Pantoprazole Sodium (Protonix -) 40 mg PO DAILY ON LICENSE OF [facility] Last Admin: 03/24/17 10:02 Dose: 40 mg Polyethylene Glycol (Miralax (For Daily Use) -) 17 gm PO DAILY JAMIE Last Admin: 03/29/17 09:16 Dose: Not Given - Objective Vital Signs: Vital Signs Temperature 98.5 F 03/29/17 06:00 Pulse Rate 89 03/29/17 06:00 Respiratory Rate 18 03/29/17 09:00 Blood Pressure 106/64 03/29/17 06:00 O2 Sat by Pulse Oximetry (%) 93 L 03/29/17 09:00 Constitutional: Yes: No Distress, Calm Neck: Yes: Supple Cardiovascular: Yes: Regular Rate and Rhythm Respiratory: Yes: Regular, CTA Bilaterally, On Nasal O2 Gastrointestinal: Yes: Normal Bowel Sounds, Soft, Abdomen, Obese Edema: No Labs: CBC, BMP 03/28/17 06:00 03/28/17 06:00 INR, PTT INR 1.03 (0.82-1.09) 03/23/17 11:13 - ....Imaging EKG: Report Reviewed (Tele: NSR) Problem List - Problems (1) Diastolic dysfunction Code(s): I51.9 - HEART DISEASE, UNSPECIFIED (2) Hypokalemia Code(s): E87.6 - HYPOKALEMIA (3) Multiple myeloma in remission Code(s): C90.01 - MULTIPLE MYELOMA IN REMISSION (4) Rapid atrial fibrillation Code(s): I48.91 - UNSPECIFIED ATRIAL FIBRILLATION (5) Thrombocytopenia Code(s): D69.6 - THROMBOCYTOPENIA, UNSPECIFIED Assessment/Plan Echo: 03/27/2017 Normal biventricular size and fxn, normal biatrial sizes, no sig valve abnl 1. Chest pain syndrome and progressive exertional dyspnea referable to 2. Coronary artery disease angina pectoris and 3. Diastolic LV dysfunction with class 0-I NYHA classification LV failure exacerbated by 4. Paroxysmal atrial fibrillation with periods of rapid ventricular response now in sinus rhythm [id number] score of 3, currently on Eliquis 5. Hypertension 6. Hyperglycemia 7. Hypercholesterolemia 8. Anemia 9. Thrombocytopenia may be referable meds/fatty liver/chemo/> viral 10. History of multiple myeloma post stem cell transplant currently receiving chemotherapy 11. History of peripheral neuropathy PLAN: 1. Continue Eliquis 5 bid with caution considering the above-noted thrombocytopenia 2. Continue Lopressor 50 bid and Cardizem CD 120 qd with IV Cardizem as needed for rate control 3. Recommend the addition of ACEI or ARBS hemodynamics permitting, potassium repleted 4. Encourage ambulation, d/c planning with f/u in office [phone]
[2017-03-29 11:00] LABS: MCH 34.5 pg (25.7-33.7); MCHC 33.6 g/dl (32.0-35.9); MEAN CELL VOLUME 102.8 fl (80-96); MEAN PLT VOLUME 9.3 fl (7.5-11.1); PLATELET COUNT 59 K/MM3 (134-434); RDW 16.7 % (11.9-15.9); WHITE BLOOD COUNT 4.4 K/mm3 (4.0-10.0)
[2017-03-29 11:24] LABS: ALBUMIN 2.3 g/dl (3.4-5.0); CALCIUM 7.2 mg/dL (8.5-10.1)
[2017-03-29 11:31] LABS: ALK PHOS 112 U/L (45-117); ANION GAP 8 (8-16); BILIRUBIN,TOTAL 1.3 mg/dL (0.2-1.0); CO2 24 mmol/L (21-32); CREATININE 0.9 mg/dL (0.7-1.3); GLUCOSE,RANDOM 121 mg/dL (74-106); SGOT/AST 44 U/L (15-37); SGPT/ALT 74 U/L (12-78); TOT PROT 5.1 g/dl (6.4-8.2)
--- NOTE | 2017-03-29 13:06 | PN ---
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 (short form) - Note 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: Patient seen and examined has exertional dyspnea Last Vital Signs Temp Pulse Resp BP Pulse Ox 97.8 F 100 H 19 102/55 93 L 03/29/17 10:00 03/29/17 10:00 03/29/17 10:00 03/29/17 10:00 03/29/17 09:00 Cor: RSR, No murmurs, No gallops Lungs: Clear to P&A Abd: Soft, Normal bowel sounds, No organomegaly Ext:No significant edema Abnormal Lab Results 03/29/17 03/29/17 10:26 10:26 RBC 2.92 L Hgb 10.1 L Hct 30.0 L MCV 102.8 H MCH 34.5 H RDW 16.7 H Plt Count 59 L D Random Glucose 121 H D Calcium 7.2 L Total Bilirubin 1.3 H AST 44 H Total Protein 5.1 L Albumin 2.3 L Home Medication List Medication Instructions Recorded Confirmed Type Allopurinol 300 mg PO ASDIR 10/04/16 03/22/17 History Atorvastatin Ca [Lipitor] 40 mg PO HS 10/04/16 03/22/17 History Bortezomib [Velcade -] 0.1 mg IV ASDIR 10/04/16 03/22/17 History Gabapentin 400 mg PO ASDIR 10/04/16 03/22/17 History Oxycodone Sr [Oxycontin] 10 mg PO BID 10/04/16 03/22/17 History Pantoprazole Sodium [Protonix -] 40 mg PO DAILY 10/04/16 03/22/17 History Zoledronic Acid [Zometa -] 4 mg IVPB ASDIR 10/04/16 03/22/17 History Dorzolamide HCl [Trusopt 2% -] 1 drop OD DAILY 02/11/17 03/22/17 History Travoprost [Travatan Z] 5 ml OP DAILY 02/11/17 03/22/17 History Furosemide [Lasix] 20 mg PO DAILY 03/22/17 03/22/17 History Active Medications Generic Name Dose Route Start Last Admin Trade Name Freq PRN Reason Stop Dose Admin Apixaban 5 mg 03/26/17 11:00 03/29/17 09:14 Eliquis - PO 5 mg BID JAMIE Administration Diltiazem HCl 10 mg 03/22/17 19:35 03/25/17 12:14 Cardizem Injection - IVPUSH 10 mg Q4H PRN Administration TACHYCARDIA Diltiazem HCl 120 mg 03/26/17 10:15 03/29/17 09:14 Cardizem Cd - PO 120 mg DAILY JAMIE Administration Gabapentin 300 mg 03/23/17 08:15 03/29/17 09:14 Neurontin - PO 300 mg BID JAMIE Administration Insulin Aspart 1 vial 03/22/17 19:45 03/29/17 11:32 Novolog Vial Sliding Scale - SQ Not Given TIDAC [facility] Protocol Insulin Detemir 8 units 03/23/17 22:00 03/29/17 09:15 Levemir Vial SQ 8 units BID JAMIE Administration Latanoprost 1 drop 03/22/17 22:00 03/28/17 21:13 Xalatan 0.005% Eye Drops - OS 1 drop HS JAMIE Administration Metoprolol Tartrate 50 mg 03/26/17 22:00 03/29/17 09:14 Lopressor - PO 50 mg BID JAMIE Administration (Dorzolamide 2% 1 each 03/25/17 22:00 03/29/17 09:17 Opthalmic Solution) OS 1 each Non-Formulary Med BID JAMIE Administration Ptt's Own Medication 1 each 03/25/17 22:00 03/29/17 09:18 (Apoorvaigan) OS 1 each BID JAMIE Administration Non-Formulary Medication 1 each 03/25/17 22:00 03/29/17 09:23 Patient's Own Med OU 1 each BID JAMIE Administration Nystatin 500,000 units 03/24/17 18:00 03/29/17 11:35 Nystatin Oral Suspension - PO 500,000 units Q6HPO JAMIE Administration Oxycodone HCl 10 mg 03/28/17 20:36 03/28/17 21:07 Roxicodone - PO 10 mg BID PRN Administration PAIN Pantoprazole Sodium 40 mg 03/23/17 10:00 03/24/17 10:02 Protonix - PO 40 mg DAILY JAMIE Administration Polyethylene Glycol 17 gm 03/23/17 10:00 03/29/17 09:16 Miralax (For Daily Use) - PO Not Given DAILY JAMIE A/P New Onset A fib: on eliquis/cardizem Thrombocytopenia etiology ( could be meds? velcade/fatty liver/> viral) Today's platelet [id number] will need close f/u in the office as patient is on a/c aswell---appointment given on Wed for 1:45 pm MM: s/p SCT in 04/2013 on miantainence dick-dex last dose on 03/08 SIFE is negative Exertional dyspnea--check home O2 eval check pulmonary consult CXR on admission was clear close f/u as outpatient d/c planning
[2017-03-29 13:56] LABS: ANISOCYTOSIS 0; BAND % 3.4 %; BASOPHIL %. 4.6 % (0-2.0); BURR CELLS 0; CABBOT RINGS 0; HELMET CELLS 0; HOWELL-JOLLY BODIES 0; HYPOCHROMIA 0; MACROCYTOSIS 0; METAMYELOCYTE 1 % (0-2); MICROCYTOSIS 0; MYELOCYTE 2 % (0-2); OVALOCYTE 0; POIKILOCYTOSIS 0; POLYCHROMASIA 0; REACTIVE LYMPHOCYTES 1 % (0-80); SCHISTOCYTES 0; SPHEROCYTE 0; STOMATOCYTE 0; TARGET CELLS 0; TEAR DROP CELLS 0; TOXIC GRANULATION 0
[2017-03-29 14:26] LABS: PLATELET ESTIMATE DECREASED
[2017-03-29 14:34] VITALS: BP 108/68; TEMP 98.8
--- NOTE | 2017-03-29 15:15 | PN ---
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 (short form) - Note 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: PULMONARY CONSULTATION DICTATED 03/29/17 IMP DYSPNEA DIASTOLIC HF ASHD AFIB MM ? COPD R/O ILD THROMBOCYTOPENIA R/O OSAS PLAN PFTS OUTPATIENT CHEST CT OUTPATIENT AC CARDIAC MEDS PER CARDIOLOGY SLEEP STUDIES OUTPATIENT DR SERRANO Problem List - Problems (1) Dyspnea Code(s): R06.00 - DYSPNEA, UNSPECIFIED (2) Atrial fibrillation Code(s): I48.91 - UNSPECIFIED ATRIAL FIBRILLATION (3) Diastolic dysfunction Code(s): I51.9 - HEART DISEASE, UNSPECIFIED (4) Multiple myeloma in remission Code(s): C90.01 - MULTIPLE MYELOMA IN REMISSION (5) Rapid atrial fibrillation Code(s): I48.91 - UNSPECIFIED ATRIAL FIBRILLATION (7) Thrombocytopenia Code(s): D69.6 - THROMBOCYTOPENIA, UNSPECIFIED
[2017-03-29 16:01] VITALS: PULSE 89
--- NOTE | 2017-03-29 16:21 | DS ---
Physical Examination Vital Signs: Vital Signs Temperature 98.8 F 03/29/17 14:33 Pulse Rate 89 03/29/17 16:00 Respiratory Rate 18 03/29/17 14:33 Blood Pressure 108/68 03/29/17 14:33 O2 Sat by Pulse Oximetry (%) 94 L 03/29/17 16:00 Findings/Remarks: see today's progress note Labs: CBC, BMP 03/29/17 10:26 03/29/17 10:26 Discharge Summary Reason For Visit: ATRIAL FIB WITH RAPID VENTRICULAR RESPONSE Current Active Problems Atrial fibrillation (Acute) Diastolic dysfunction (Acute) Dyspnea (Acute) Elevated LFTs (Acute) Hypokalemia (Acute) Multiple myeloma in remission (Acute) Rapid atrial fibrillation (Acute) Steroid-induced diabetes (Acute) Thrombocytopenia (Acute) Hospital Course: 71 yrs old male with H/O Multiple Myeloma sent from Dr Gomez- Oncology- office for chest pain and SOB- found to be in rapid Afib patient monitor on telemetry Treated appropriately for A. fib Echocardiogram also done and cardiology followed Started on Eliquis. The patient followed by cardiology Oncology also followed for low platelets. patient also seen by pulmonary today--Cleared for discharge Now stable for discharge. patient at home walks with walker--- due to arthritis of the knees Discussed with patient in detail. Patient's medication Eliquis also needs preauthorization--- I discussed with fast food services manager Dr. arnold today--- he will take care and provide samples. 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 Start on metformin. patient counseled about diabetes. Patient to follow with his PMD in 1 week. Also followed with oncologist in 1 week as well as applications administrator. medications prescribed as needed. fall precautions also discussed in detail with patient Condition: Good - Instructions Referrals: Avtar Melchor MD [Primary Care Provider] - Chiquis Riggs MD [Staff Physician] - Matthew Tellez MD [Staff Physician] - Disposition: HOME - Home Medications Comprehensive Discharge Medication List: Ambulatory Orders Allopurinol 300 mg PO ASDIR 10/04/16 Atorvastatin Ca [Lipitor] 40 mg PO HS 10/04/16 Bortezomib [Velcade -] 0.1 mg IV ASDIR 10/04/16 Gabapentin 400 mg PO ASDIR 10/04/16 Oxycodone Sr [Oxycontin] 10 mg PO BID 10/04/16 Pantoprazole Sodium [Protonix -] 40 mg PO DAILY 10/04/16 Zoledronic Acid [Zometa -] 4 mg IVPB ASDIR 10/04/16 Dorzolamide HCl [Trusopt 2% -] 1 drop OD DAILY 02/11/17 Travoprost [Travatan Z] 5 ml OP DAILY 02/11/17 Furosemide [Lasix] 20 mg PO DAILY 03/22/17 Apixaban [Eliquis -] 5 mg PO BID 30 Days #60 tablet 03/27/17 Diltiazem Cd [Cardizem Cd -] 120 mg PO DAILY #30 cap.cd.24h 03/27/17 Metoprolol Tartrate [Lopressor -] 50 mg PO BID #90 tablet 03/27/17 Patient's Own Medication [Patient's Own Med (Nf) -] 1 each OS BID med 03/27/17 Patient's Own Medication [Patient's Own Med (Nf) -] 1 each OU BID med 03/27/17 Polyethylene Glycol 3350 [Miralax 119 gm Btl -] 17 gm PO DAILY bottle 03/27/17 Metformin HCl [Glucophage -] 500 mg PO DAILY #30 tablet 03/28/17
--- NOTE | 2017-03-29 17:43 | CONS ---
DATE OF CONSULTATION: 03/29/2017 REFERRING PHYSICIAN: Dr. Sim HISTORY: The patient is a 71-year-old white male with past medical history of hypertensive cardiovascular disease, hypercholesterolemia, multiple myeloma on steroids, post autologous stem cell transplant, degenerative lumbar sacral disk disease, chronic low back pain, peripheral neuropathy as well as steroid-induced diabetes admitted to [facility] on March 23 secondary to chest discomfort and progressive exertional dyspnea and lower extremity edema. On admission of note is the patient to be in rapid atrial fibrillation. He was admitted to the telemetry unit for the above. He was started on anticoagulation with IV Cardizem with good clinical response. He was evaluated by Cardiology for the above. The patient underwent an echocardiogram, which revealed no definitive evidence of left ventricle systolic dysfunction. The patient has a history of smoking. He quit many years ago. He denies any history of occupational exposure to chemicals or fumes. The patient states for the past 6 months he has had progressive increasing shortness of breath and dyspnea on exertion when walking inclines above level ground, which he attributes to being in poor condition. He denies any chest pain, nausea, vomiting, or diaphoresis. He does have an occasional cough, which is nonproductive. He denies hemoptysis. He states he has been exposed to fumes at the [employer] on December 28 and has been followed at [place]. He states he had done a couple of years ago, which were within normal. He denies any history of DVT or PE. There is no history of recent travel. PAST MEDICAL HISTORY: Again, includes hypertensive cardiovascular disease, atrial fibrillation, multiple myeloma status post autologous stem cell transplant, steroid-induced diabetes, hyperlipidemia, degenerative lumbar sacral disk disease, chronic low back pain, peripheral neuropathy. REVIEW OF SYSTEMS: Positive for orthopnea. Positive for dyspnea on exertion. No chest pain. No palpitations. No nausea, no vomiting, no abdominal pain. Positive lower extremity edema. MEDICATIONS: Include Eliquis, Neurontin, Lopressor, Cardizem, MiraLAX, NovoLog, Levemir, Roxicodone, nystatin, Xalatan, Protonix. PHYSICAL EXAMINATION: General: The patient is an obese male wide awake, alert in no acute distress. Vital Signs: He is currently afebrile. Blood pressure 108/68, respiratory rate 18, O2 saturation 93% on room air. HEENT: Normocephalic and atraumatic. Neck: Supple. Heart: Irregularly irregular with normal S1, S2. Chest: Bilateral crackles 1/3 up. Abdomen: Soft. Bowel sounds positive. Extremities: No cyanosis or edema. LABORATORIES: WBC 4.4, hemoglobin 10.1, hematocrit 30, platelet count 59,000, INR 1.03, BUN 13, creatinine 0.9. Chest x-ray shows no infiltrates and no effusions. IMPRESSION: 1. Dyspnea most likely secondary to arteriosclerotic heart disease. 2. Diastolic left ventricular dysfunction. 3. Underlying interstitial lung disease. 4. Underlying chronic obstructive pulmonary disease. 5. History of tobacco use. 6. Hypertension. 7. Hyperglycemia. 8. Thrombocytopenia. 9. Myeloma. PLAN: Continue inhaled bronchodilators p.r.n. PFTs as an outpatient. CT scan of the chest. Continue current medications as per Cardiology. PAM SERRANO M.D. [id number]
== END 2017-03-29 19:57 | disposition home or self-care (01) | DRG 309 ==
LOC: JER 14:04 → JERBED 16:34 → J4S 18:40 → OBSVTOIN 03-23 18:10
PROVIDERS: ADMIT Internal Medicine; ATTEND Internal Medicine
DX: I48.0 Paroxysmal atrial fibrillation (principal); C90.01 Multiple myeloma in remission; I13.0 Hypertensive heart and chronic kidney disease with heart failure and stage 1 through stage 4 chronic kidney disease, or unspecified chronic kidney disease; I50.30 Unspecified diastolic (congestive) heart failure; I25.10 Atherosclerotic heart disease of native coronary artery without angina pectoris; E09.40 Drug or chemical induced diabetes mellitus with neurological complications with diabetic neuropathy, unspecified; N18.9 Chronic kidney disease, unspecified; R79.89 Other specified abnormal findings of blood chemistry; E78.5 Hyperlipidemia, unspecified; R00.0 Tachycardia, unspecified; R00.2 Palpitations; J44.9 Chronic obstructive pulmonary disease, unspecified; H40.89 Other specified glaucoma; G62.89 Other specified polyneuropathies; D64.9 Anemia, unspecified; T38.0X5A Adverse effect of glucocorticoids and synthetic analogues, initial encounter; E87.6 Hypokalemia; D69.6 Thrombocytopenia, unspecified; Z87.891 Personal history of nicotine dependence; Z86.73 Personal history of transient ischemic attack (TIA), and cerebral infarction without residual deficits
CPT/HCPCS: 36415; 71010-TC; 76705-TC; 80053; 81003; 81015; 82550; 82553; 82607; 82746; 82784; 83036; 83735; 83880; 83883; 84155; 84165; 84439; 84443; 84484; 85025; 85027; 85610; 86022; 86334; 87040; 87086; 93005; 93010; 93306-TC; 94761; 97116-GP; 97161-GP; 99284-25; G0378

== ENCOUNTER 2017-04-08 11:01 | Inpatient (IN) | payer OTHER ==
--- NOTE | 2017-04-08 12:42 | EKG ---
Test Reason : Blood Pressure : / mmHG Vent. Rate : 103 BPM Atrial Rate : 103 BPM P-R Int : 154 ms QRS Dur : 092 ms QT Int : 332 ms P-R-T Axes : 038 000 024 degrees QTc Int : 434 ms SINUS TACHYCARDIA OTHERWISE NORMAL ECG WHEN COMPARED WITH ECG OF 26-MAR-2017 11:45, NO SIGNIFICANT CHANGE WAS FOUND Confirmed by EFRAIN SHAVER MD ([id number]) on 04/08/2017 12:42:33 PM Referred By: Confirmed By:EFRAIN SHAVER MD
[2017-04-08 13:31] LABS: BASO % 0.8 % (0-2.0); EOS % 1.6 % (0-4.5); HEMATOCRIT 30.3 % (35.4-49); HEMOGLOBIN 9.9 GM/dL (11.7-16.9); LYMPH % 13.5 % (8-40); MCH 33.4 pg (25.7-33.7); MCHC 32.7 g/dl (32.0-35.9); MEAN CELL VOLUME 102.1 fl (80-96); MEAN PLT VOLUME 9.2 fl (7.5-11.1); MONO % 17.1 % (3.8-10.2); NEUTROPHILS # 3.4 % (42.8-82.8); PLATELET COUNT 105 K/MM3 (134-434); RBC 2.97 M/mm3 (4.00-5.60); RDW 17.4 % (11.9-15.9)
[2017-04-08 13:36] LABS: INR 1.73 (0.82-1.09); PROTHROMBIN TIME (PATIENT) 19.6 SEC (9.98-11.88)
[2017-04-08 13:38] LABS: ACTIVATED PTT 31.3 SECONDS (26.9-34.4)
[2017-04-08 13:44] LABS: ALBUMIN 2.4 g/dl (3.4-5.0); ANION GAP 10 (8-16); BILIRUBIN,TOTAL 1.3 mg/dL (0.2-1.0); BLOOD UREA NITROGEN 14 mg/dL (7-18); CALCIUM 7.8 mg/dL (8.5-10.1); CHLORIDE 106 mmol/L (98-107); CO2 22 mmol/L (21-32); GLUCOSE,RANDOM 113 mg/dL (74-106); SGPT/ALT 36 U/L (12-78); SODIUM 138 mmol/L (136-145)
[2017-04-08 13:46] LABS: ALK PHOS 78 U/L (45-117); N-TERMINAL BNP 161.18 pg/ml (5-125)
[2017-04-08 13:48] LABS: SGOT/AST 73 U/L (15-37)
[2017-04-08 13:50] LABS: POTASSIUM 5.4 mmol/L (3.5-5.1)
--- NOTE | 2017-04-08 15:28 | PDOC ---
History of Present Illness - General Chief Complaint: Shortness of Breath Stated Complaint: SOB Time Seen by Provider: 04/08/17 11:28 - History of Present Illness Initial Comments: 04/08/17 15:22 "The patient is a 71 year old male, with a significant past medical history of afib (on coumadin), diabetes, multiple myeloma, HTN, DL who presents to ER with worsening SOB. The patient has also complaints of progressively worsening generalized weakness. This has been progressing over the past week. Denies CP. Patient notes being weak and being physically exhausted while taking off his clothes. He denies any recent fevers, chills, headache or dizziness. He denies any recent nausea, vomit, diarrhea or constipation. He denies any recent chest pain. He denies any recent dysuria, frequency, urgency or hematuria. Denies new leg swelling, no recent travel. Pt was sent in by Dr. Gomez out of concern that pt may be anemic. Allergies: NKA Past surgical history: None reported. Social History: Fromer smoker (40 years ago). Denies EtOH use and recreational drug use. Primary Care Physician: " Past History - Past Medical History Allergies/Adverse Reactions: Allergies Allergy/AdvReac Type Severity Reaction Status Date / Time No Known Allergies Allergy Verified 04/08/17 11:08 Home Medications: Ambulatory Orders Atorvastatin Ca [Lipitor] 40 mg PO HS 10/04/16 Gabapentin 400 mg PO BID 10/04/16 Oxycodone Sr [Oxycontin] 10 mg PO Q6H PRN 10/04/16 Apixaban [Eliquis -] 5 mg PO BID 30 Days #60 tablet 03/27/17 Diltiazem Cd [Cardizem Cd -] 120 mg PO DAILY #30 cap.cd.24h 03/27/17 Metoprolol Tartrate [Lopressor -] 50 mg PO BID #90 tablet 03/27/17 Metformin HCl [Glucophage -] 500 mg PO DAILY #30 tablet 03/28/17 Cancer: Yes (MULTIPLE MYELOMA) CVA: Yes (tia) COPD: Yes (tia) HTN: Yes Hypercholesterolemia: Yes - Immunization History Immunization Up to Date: Yes - Suicide/Smoking/Psychosocial Hx Smoking History: Unknown if ever smoked Have you smoked in the past 12 months: No If you are a former smoker, when did you quit?: 40yrs Information on smoking cessation initiated: No Hx Alcohol Use: No Drug/Substance Use Hx: No Substance Use Type: None Hx Substance Use Treatment: No Review of Systems - Review of Systems Comments:: 04/08/17 15:24 "GENERAL/CONSTITUTIONAL: No fever or chills. +weakness. HEAD, EYES, EARS, NOSE AND THROAT: No change in vision. No ear pain or discharge. No sore throat. CARDIOVASCULAR: No chest pain +shortness of breath. RESPIRATORY: No cough, wheezing, or hemoptysis. GASTROINTESTINAL: No nausea, vomiting, diarrhea or constipation. GENITOURINARY: No dysuria, frequency, or change in urination. MUSCULOSKELETAL: No joint or muscle swelling or pain. No neck or back pain. SKIN: No rash NEUROLOGIC: No headache, vertigo, loss of consciousness, or change in strength/ sensation. ENDOCRINE: No increased thirst. No abnormal weight change. HEMATOLOGIC/LYMPHATIC: No anemia, easy bleeding, or history of blood clots. ALLERGIC/IMMUNOLOGIC: No hives or skin allergy. " *Physical Exam - Vital Signs Last Vital Signs Temp Pulse Resp BP Pulse Ox 98.2 F 106 H 20 114/77 95 04/08/17 14:00 04/08/17 14:00 04/08/17 14:00 04/08/17 14:00 04/08/17 14:00 - Physical Exam Comments: 04/08/17 15:24 "GENERAL: Awake, alert, and fully oriented, in no acute distress HEAD: No signs of trauma EYES: PERRLA, EOMI, sclera anicteric, conjunctiva clear ENT: Auricles normal inspection, hearing grossly normal, nares patent, oropharynx clear without exudates. Moist mucosa NECK: Nontender, no stepoffs, Normal ROM, supple, no lymphadenopathy, JVD, or masses LUNGS: Breath sounds equal, clear to auscultation bilaterally. No wheezes, and no crackles HEART: Regular rate and rhythm, normal S1 and S2, no murmurs, rubs or gallops ABDOMEN: Soft, nontender, normoactive bowel sounds. No guarding, no rebound. No masses RECTAL: brown stool, no melena or hematochezia EXTREMITIES: Normal range of motion, no edema. No clubbing or cyanosis. No cords, erythema, or tenderness NEUROLOGICAL: Cranial nerves II through XII intact. 5/5 strength and sensation in all extremities, Normal speech, normal gait SKIN: Warm, Dry, normal turgor, no rashes or lesions noted. " Heart Score/ECG Review - ECG Impressions Comment:: 04/08/17 15:27 Sinus tachycardia, no LEE/STDs, no TWIs, axis wnl, intervals wnl, rate 103 ED Treatment Course - LABORATORY CBC & Chemistry Diagram: 04/10/17 06:30 04/10/17 06:30 - ADDITIONAL ORDERS Additional order review: Laboratory Results 04/08/17 04/08/17 04/08/17 14:16 13:10 13:10 PT with INR INR PTT (Actin FS) Sodium Potassium Chloride Carbon Dioxide Anion Gap BUN Creatinine Creat Clearance w eGFR Random Glucose Lactic Acid 2.0 Calcium Total Bilirubin AST ALT Alkaline Phosphatase Creatine Kinase Troponin I B-Natriuretic Peptide Total Protein Albumin Stool Occult Blood Negative Blood Type O POSITIVE Antibody Screen Negative 04/08/17 04/08/17 13:10 13:10 PT with INR 19.60 H INR 1.73 H D PTT (Actin FS) 31.3 D Sodium 138 Potassium 5.4 H D Chloride 106 Carbon Dioxide 22 Anion Gap 10 BUN 14 Creatinine 1.0 Creat Clearance w eGFR > 60 Random Glucose 113 H Lactic Acid Calcium 7.8 L Total Bilirubin 1.3 H AST 73 H D ALT 36 D Alkaline Phosphatase 78 D Creatine Kinase 182 Troponin I 0.09 H D B-Natriuretic Peptide 161.18 H Total Protein 6.0 L Albumin 2.4 L Stool Occult Blood Blood Type Antibody Screen 04/08/17 13:10 RBC 2.97 L MCV 102.1 H MCHC 32.7 RDW 17.4 H MPV 9.2 Neutrophils % 67.0 D Lymphocytes % 13.5 D Monocytes % 17.1 H D Eosinophils % 1.6 Basophils % 0.8 - RADIOLOGY Radiology Studies Ordered: Category Date Time Status CHEST CT WITH CONTRAST [CT] Stat CT Scan 04/08/17 14:28 Ordered CHEST PA & LAT [RAD] Stat Radiology 04/08/17 11:55 Completed Medical Decision Making - Medical Decision Making 04/08/17 15:29 71 M with worsening SOB x 1 week. Vitals notable for O2 sat 93, tachycardia, borderline hypotension. Possible new heart failure. Also concerning for acute PE. Pt may also have symptomatic anemia, but this would not explain pt's new hypoxia. Pt with normal lung exam. Nonischemic EKG. - Labs, trop, BNP - CTA chest - Admit tele 04/08/17 15:54 CBC,CMP WBC 5.0 K/mm3 (4.0-10.0) 04/08/17 13:10 RBC 2.97 M/mm3 (4.00-5.60) L 04/08/17 13:10 Hgb 9.9 GM/dL (11.7-16.9) L 04/08/17 13:10 Hct 30.3 % (35.4-49) L 04/08/17 13:10 MCV 102.1 fl (80-96) H 04/08/17 13:10 MCH 33.4 pg (25.7-33.7) 04/08/17 13:10 MCHC 32.7 g/dl (32.0-35.9) 04/08/17 13:10 RDW 17.4 % (11.9-15.9) H 04/08/17 13:10 Plt Count 105 K/MM3 (134-434) L D 04/08/17 13:10 MPV 9.2 fl (7.5-11.1) 04/08/17 13:10 Band Neut # 3.4 % (42.8-82.8) L 04/08/17 13:10 Neutrophils % 67.0 % (42.8-82.8) D 04/08/17 13:10 Lymphocytes % 13.5 % (8-40) D 04/08/17 13:10 Monocytes % 17.1 % (3.8-10.2) H D 04/08/17 13:10 Eosinophils % 1.6 % (0-4.5) 04/08/17 13:10 Basophils % 0.8 % (0-2.0) 04/08/17 13:10 Sodium 138 mmol/L (136-145) 04/08/17 13:10 Potassium 5.4 mmol/L (3.5-5.1) H D 04/08/17 13:10 Chloride 106 mmol/L (98-107) 04/08/17 13:10 Carbon Dioxide 22 mmol/L (21-32) 04/08/17 13:10 Anion Gap 10 (8-16) 04/08/17 13:10 BUN 14 mg/dL (7-18) 04/08/17 13:10 Creatinine 1.0 mg/dL (0.7-1.3) 04/08/17 13:10 Creat Clearance w eGFR > 60 (>60) 04/08/17 13:10 Random Glucose 113 mg/dL (74-106) H 04/08/17 13:10 Lactic Acid 2.0 mmol/L (0.4-2.0) 04/08/17 13:10 Calcium 7.8 mg/dL (8.5-10.1) L 04/08/17 13:10 Total Bilirubin 1.3 mg/dL (0.2-1.0) H 04/08/17 13:10 AST 73 U/L (15-37) H D 04/08/17 13:10 ALT 36 U/L (12-78) D 04/08/17 13:10 Alkaline Phosphatase 78 U/L (45-117) D 04/08/17 13:10 Creatine Kinase 182 IU/L (39-308) 04/08/17 13:10 Troponin I 0.09 ng/ml (0.00-0.05) H D 04/08/17 13:10 B-Natriuretic Peptide 161.18 pg/ml (5-125) H 04/08/17 13:10 Total Protein 6.0 g/dl (6.4-8.2) L 04/08/17 13:10 Albumin 2.4 g/dl (3.4-5.0) L 04/08/17 13:10 Trop mildly positive. CXR clear. CT chest pending to r/o PE. Will admit pt to hospital for trending of troponins, as well as potential treatment for PE. Spoke with Dr. Cannon, who has accepted pt for admission to [facility]. 04/08/17 16:20 Pt unable to get IV contrast due to history of multiple myeloma. Recommend V/Q scan as inpatient. Will empirically anticoagulate with lovenox at this time. (Pt on coumadin but with subtherapeutic INR) Case discussed in detail with admitting physician including history, physical exam and ancillary studies. Admitting physician has assumed care for the patient and will follow all pending diagnostics and complete the evaluation and treatment. *DC/Admit/Observation/Transfer Diagnosis at time of Disposition: SOB (shortness of breath) - Discharge Dispostion Admit: Yes - Referrals - Patient Instructions - Post Discharge Activity - Attestations Physician Attestion: 04/08/17 16:02 I, Dr. Aakash Jones MD, attest that this document has been prepared under my direction and personally reviewed by me in its entirety. I further attest, that it accurately reflects all work, treatment, procedures and medical decision -making performed by me.
[2017-04-08] MEDS ORDERED: ENOXAPARIN NA (PORCINE) 100 MG/1 ML DISP.SYRIN SQ ONE ×2 (16:21→17:37)
[2017-04-08 16:29] LABS: LYMPHOCYTE # 0.7 % (8-40)
[2017-04-08 18:57] LABS: URINE APPEARANCE SLCLOUDY; URINE BILIRUBIN NEGATIVE (NEGATIVE); URINE BLOOD NEGATIVE (NEGATIVE); URINE COLOR AMBER; URINE GLUCOSE (UA) 1+ (NEGATIVE); URINE KETONE 1+ (NEGATIVE); URINE LEUK ESTERASE NEGATIVE (NEGATIVE); URINE NITRITE NEGATIVE (NEGATIVE); URINE UROBILINOGEN 4.0 E.U/dl mg/dL (0.2-1.0)
[2017-04-08 19:05] LABS: URINE PROTEIN 1+ (NEGATIVE)
[2017-04-08 19:08] LABS: EPI CELLS RARE /HPF (FEW)
[2017-04-08] MEDS ORDERED: oxyCODONE HCL 10 MG SUSTAINED ACTING TABLET PO PRN (19:08)
[2017-04-08 19:09] LABS: GRANULAR CASTS 1 /lpf; URINE BACTERIA RARE /hpf (NONE SEEN); URINE HYALINE CAST 12 /lpf; URINE MUCUS MANY
--- NOTE | 2017-04-08 19:18 | HP ---
Admitting History and Physical - Primary Care Physician PCP: Kristal Cannon - Admission History of Present Illness: "The patient is a 71 year old male, with a significant past medical history of afib (on coumadin), diabetes, multiple myeloma, HTN, DL and osteoarthritis of knees who presents to ER with worsening SOB. The patient has also complaints of progressively worsening generalized weakness. This has been progressing over the past week. Denies CP. Patient notes being weak and being physically exhausted while taking off his clothes. He denies any recent fevers, chills, headache or dizziness. He denies any recent nausea, vomit, diarrhea or constipation. He denies any recent chest pain. He denies any recent dysuria, frequency, urgency or hematuria. Denies new leg swelling, no recent travel. Pt was sent in by Dr. Gomez out of concern that pt may be anemic. Patient well known to me from recent hospitalization Discussed with emergency room physician--- workup also reviewed and discussed In the emergency room Emergency room doctor concerned about PE Patient seen by me in the emergency room at bedside Patient reports gradual weakness Denies any blood in the stools Feels weak and tired Getting more short of breath Denies chest pain. Denies fever or chills. 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 Cardiovascular: Yes: HTN Heme/Onc: Yes: Anemia, Other (mulitiple myeloma- s/p stem cell transplant) Musculoskeletal: Yes: Osteoarthritis - Smoking History Smoking history: Unknown if ever smoked Have you smoked in the past 12 months: No If you are a former smoker, when did you quit?: 40yrs - Alcohol/Substance Use Hx Alcohol Use: No Home Medications - Allergies Allergies/Adverse Reactions: Allergies Allergy/AdvReac Type Severity Reaction Status Date / Time No Known Allergies Allergy Verified 04/08/17 11:08 - Home Medications Home Medications: Ambulatory Orders Atorvastatin Ca [Lipitor] 40 mg PO HS 10/04/16 Gabapentin 400 mg PO BID 10/04/16 Oxycodone Sr [Oxycontin] 10 mg PO Q6H PRN 10/04/16 Apixaban [Eliquis -] 5 mg PO BID 30 Days #60 tablet 03/27/17 Diltiazem Cd [Cardizem Cd -] 120 mg PO DAILY #30 cap.cd.24h 03/27/17 Metoprolol Tartrate [Lopressor -] 50 mg PO BID #90 tablet 03/27/17 Metformin HCl [Glucophage -] 500 mg PO DAILY #30 tablet 03/28/17 Review of Systems Findings/Remarks: see [facility] Physical Examination Vital Signs: Vital Signs Temperature 98.0 F 04/08/17 17:52 Pulse Rate 96 H 04/08/17 17:52 Respiratory Rate 20 04/08/17 17:52 Blood Pressure 95/56 04/08/17 17:52 O2 Sat by Pulse Oximetry (%) 96 04/08/17 17:52 Constitutional: Yes: No Distress, Anxious Eyes: Yes: Conjunctiva Clear Neck: Yes: Supple Cardiovascular: Yes: Regular Rate and Rhythm Respiratory: Yes: CTA Bilaterally Gastrointestinal: Yes: Soft Edema: No Neurological: Yes: Alert Labs: CBC, BMP 04/08/17 13:10 04/08/17 13:10 Imaging - Results Chest X-ray: Report Reviewed EKG: Report Reviewed Problem List - Problems (1) Anemia Code(s): D64.9 - ANEMIA, UNSPECIFIED Qualifiers: Bone marrow failure anemia type: pancytopenia, antineoplastic chemotherapy- induced (2) SOB (shortness of breath) Code(s): R06.02 - SHORTNESS OF BREATH (3) Atrial fibrillation Code(s): I48.91 - UNSPECIFIED ATRIAL FIBRILLATION Qualifiers: Atrial fibrillation type: paroxysmal Qualified Code(s): I48.0 - Paroxysmal atrial fibrillation (4) Multiple myeloma in remission Code(s): C90.01 - MULTIPLE MYELOMA IN REMISSION Assessment/Plan admit to telemetry Cardiology and pulmonary evaluation as well as oncology to follow Follow-up lites Follow-up CBC last admission and workup noted--- including echo--which was essentially okay Monitor blood sugar I doubt pulmonary embolism--pulmonary to follow Will check ultrasound of lower extremities-- Continue other medications. Will follow Discussed in detail with patient and patient's .
[2017-04-08] MEDS: GABAPENTIN 400 MG CAPSULE (FP) PO SCH (22:34)
[2017-04-08] MEDS: ATORVASTATIN CA 40 MG TABLET (FP) PO SCH (22:34)
[2017-04-08] MEDS: DOCUSATE SODIUM 100 MG CAPSULE (FP) PO SCH (22:34)
[2017-04-08] MEDS: APIXABAN 5 MG TABLET PO SCH (22:34)
[2017-04-08] MEDS: METOPROLOL TARTRATE 50 MG TABLET (FP) PO SCH (22:35)
[2017-04-08 23:12] VITALS: BMI 28.9
[2017-04-09] MEDS: INSULIN SLIDING SCALE (NOVOLOG) 1 VIAL SQ SCH ×3 (06:20→17:47)
[2017-04-09] MEDS: metFORMIN HCL 500 MG TABLET (FP) PO SCH (06:26)
[2017-04-09 07:53] LABS: HEMATOCRIT 24.8 % (35.4-49); HEMOGLOBIN 8.2 GM/dL (11.7-16.9); MCH 33.7 pg (25.7-33.7); MEAN CELL VOLUME 102.2 fl (80-96); MEAN PLT VOLUME 9.2 fl (7.5-11.1); PLATELET COUNT 82 K/MM3 (134-434); RBC 2.43 M/mm3 (4.00-5.60); RDW 17.1 % (11.9-15.9); WHITE BLOOD COUNT 3.7 K/mm3 (4.0-10.0)
[2017-04-09 08:34] LABS: CHLORIDE 108 mmol/L (98-107); POTASSIUM 3.4 mmol/L (3.5-5.1); SODIUM 142 mmol/L (136-145)
[2017-04-09 08:45] LABS: ALBUMIN 2.1 g/dl (3.4-5.0); ALK PHOS 68 U/L (45-117); ANION GAP 10 (8-16); BLOOD UREA NITROGEN 13 mg/dL (7-18); CALCIUM 7.2 mg/dL (8.5-10.1); CHOLESTEROL 107 mg/dL (50-200); CO2 24 mmol/L (21-32); CREATININE 0.8 mg/dL (0.7-1.3); GLUCOSE,RANDOM 87 mg/dL (74-106); HDL CHOLESTEROL 28 mg/dL (40-60); LDL CHOLESTEROL (ONLY SJRH) 63 mg/dL (5-100); SGOT/AST 23 U/L (15-37); SGPT/ALT 27 U/L (12-78); TOT PROT 4.7 g/dl (6.4-8.2); TRIGLYCERIDES 143 mg/dL (35-160)
--- NOTE | 2017-04-09 09:38 | CON.CARD ---
Consult Consult Specialty:: Cardiology Referred by:: Kristal Cannon MD Reason for Consultation:: Dyspnea - History of Present Illness Chief Complaint: Dyspnea History of Present Illness: "The patient is a 71 year old male, with a significant past medical history of paroxysmal afib (on coumadin), diabetes, multiple myeloma, HTN, ASHD, diastolic dysfunction, hyperlipidemia, anemia, thrombocytopenia, MM s/p SCT on chemo who presents to ER with worsening SOB, generalized weakness and decreased exercise capacity over the past week. He denies chest pain, near or true syncope, orthopnea, PND or LE edema. Allergies: NKA Past surgical history: None reported. Social History: Fromer smoker (40 years ago). Denies EtOH use and recreational drug use. 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 Cardio/Vascular: Yes: HTN - Alcohol/Substance Use Hx Alcohol Use: No - Smoking History Smoking history: Unknown if ever smoked Have you smoked in the past 12 months: No If you are a former smoker, when did you quit?: 40yrs Home Medications - Allergies Allergies/Adverse Reactions: Allergies Allergy/AdvReac Type Severity Reaction Status Date / Time No Known Allergies Allergy Verified 04/08/17 11:08 - Home Medications Home Medications: Ambulatory Orders Atorvastatin Ca [Lipitor] 40 mg PO HS 10/04/16 Gabapentin 400 mg PO BID 10/04/16 Oxycodone Sr [Oxycontin] 10 mg PO Q6H PRN 10/04/16 Apixaban [Eliquis -] 5 mg PO BID 30 Days #60 tablet 03/27/17 Diltiazem Cd [Cardizem Cd -] 120 mg PO DAILY #30 cap.cd.24h 03/27/17 Metoprolol Tartrate [Lopressor -] 50 mg PO BID #90 tablet 03/27/17 Metformin HCl [Glucophage -] 500 mg PO DAILY #30 tablet 03/28/17 Review of Systems - Review of Systems Constitutional: reports: Lethargy, Weakness Respiratory: reports: SOB Vital Signs: Vital Signs Temperature 98.4 F 04/09/17 05:18 Pulse Rate 86 04/09/17 05:18 Respiratory Rate 20 04/09/17 05:18 Blood Pressure 97/57 04/09/17 05:18 O2 Sat by Pulse Oximetry (%) 96 04/08/17 22:20 Constitutional: Yes: No Distress, Calm Neck: Yes: Supple Respiratory: Yes: Regular, CTA Bilaterally, On Nasal O2 Gastrointestinal: Yes: Normal Bowel Sounds, Soft, Abdomen, Obese Cardiovascular: Yes: Regular Rate and Rhythm JVD: No Carotid Bruit: No Heart Sounds: Yes: S1, S2 Murmur: Yes: Systolic Murmur, Grade 1 Edema: No - Other Data Labs, Other Data: CBC, BMP 04/09/17 05:05 04/09/17 05:05 INR, PTT INR 1.73 (0.82-1.09) H D 04/08/17 13:10 Troponin, BNP 04/08/17 04/09/17 13:10 05:05 Troponin I 0.09 H D 0.06 H D B-Natriuretic Peptide 161.18 H Troponin, BNP 04/08/17 04/09/17 13:10 05:05 Troponin I 0.09 H D 0.06 H D B-Natriuretic Peptide 161.[address] H [address] @ 103 Ejection Fraction %: LVEF > or = 40 % Imaging - Results Chest X-ray: Report Reviewed (NAD) Problem List - Problems (1) SOB (shortness of breath) Code(s): R06.02 - SHORTNESS OF BREATH (2) Atrial fibrillation Code(s): I48.91 - UNSPECIFIED ATRIAL FIBRILLATION Qualifiers: Atrial fibrillation type: paroxysmal Qualified Code(s): I48.0 - Paroxysmal atrial fibrillation (3) Diastolic dysfunction Code(s): I51.9 - HEART DISEASE, UNSPECIFIED (4) Hypokalemia Code(s): E87.6 - HYPOKALEMIA (5) Multiple myeloma in remission Code(s): C90.01 - MULTIPLE MYELOMA IN REMISSION (6) Thrombocytopenia Code(s): D69.6 - THROMBOCYTOPENIA, UNSPECIFIED (7) Anemia Code(s): D64.9 - ANEMIA, UNSPECIFIED Qualifiers: Bone marrow failure anemia type: pancytopenia, antineoplastic chemotherapy- induced Assessment/Plan Echo: 03/27/2017 Normal biventricular size and fxn, normal biatrial sizes, no sig valve abnl 1. Progressive exertional dyspnea and fatigue referable to 2. Symptomatic anemia 3. Possible recurrence of paroxysmal atrial fibrillation with periods of rapid ventricular response now in sinus rhythm [id number] score of 3, currently on Eliquis 4. Coronary artery disease angina pectoris 5. LV diastolic dysfunction, euvolemic 6. Hypertension 7. Type 2 DM 8. Hypercholesterolemia 9. Thrombocytopenia may be referable meds/fatty liver/chemo/> viral 10. History of multiple myeloma post stem cell transplant currently receiving chemotherapy 11. History of peripheral neuropathy 12. Hypokalemia PLAN: 1. Continue Eliquis 5 bid with caution considering the above-noted thrombocytopenia 2. D/c Lopressor 50 bid (possible med side-effects) and resume Cardizem CD 120 qd as tolerated and Lipitor 40 qd, financial risk manager to assess PAF recurrence 3. Recommend the addition of ACEI or ARBS hemodynamics permitting, potassium repleted 4. PT, encourage ambulation 5. Thank you for consultative opportunity
--- NOTE | 2017-04-09 09:44 | PN ---
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 (short form) - Note 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: patient seen and examined this am complaints of sob on exertion as per patient this is a chronic issue for him also complaints of poor appetite Vital Signs Temp 98.4 F 04/09/17 05:18 Pulse 86 04/09/17 05:18 Resp 20 04/09/17 05:18 BP 97/57 04/09/17 05:18 Pulse Ox 96 04/08/17 22:20 Intake & Output 04/08/17 04/08/17 04/09/17 11:59 23:59 11:59 Intake Total 180 120 Output Total 200 Balance 180 -80 Weight 200 lb 196 lb Intake: Oral 180 120 Output: Urine 200 Void 200 Other: Voiding Method Urinal Urinal Urinal Height 5 ft 9 in 5 ft 9 in Body Mass Index (BMI) 29.5 28.9 Weight Measurement Method Standing Scale Weight Measurement Method Est/Stated by Patient Active Medications Acetaminophen (Tylenol -) 650 mg PO Q6H PRN PRN Reason: FEVER OR PAIN Apixaban (Eliquis -) 5 mg PO BID [facility] Last Admin: 04/08/17 22:34 Dose: 5 mg Atorvastatin Calcium (Lipitor -) 40 mg PO [facility] Last Admin: 04/08/17 22:34 Dose: 40 mg Diltiazem HCl (Cardizem Cd -) 120 mg PO DAILY [facility] Docusate Sodium (Colace -) 100 mg PO BID [facility] Last Admin: 04/08/17 22:34 Dose: 100 mg Gabapentin (Neurontin -) 400 mg PO BID [facility] Last Admin: 04/08/17 22:34 Dose: 400 mg Insulin Aspart (Novolog Vial Sliding Scale -) 1 vial SQ TIDAC [facility] PRN Reason: Protocol Last Admin: 04/09/17 06:20 Dose: Not Given Metformin HCl (Glucophage -) 500 mg PO DAILY@0700 [facility] Last Admin: 04/09/17 06:26 Dose: 500 mg Metoprolol Tartrate (Lopressor -) 50 mg PO BID [facility] Last Admin: 04/08/17 22:35 Dose: 50 mg Oxycodone HCl (Oxycontin -) 10 mg PO Q6H PRN PRN Reason: PAIN Pantoprazole Sodium (Protonix -) 20 mg PO DAILY [facility] Polyethylene Glycol (Miralax (For Daily Use) -) 17 gm PO DAILY [facility] Abnormal Lab Results 04/08/17 04/08/17 04/08/17 12:03 13:10 13:10 WBC RBC 2.97 L Hgb 9.9 L Hct 30.3 L MCV 102.1 H RDW 17.4 H Plt Count 105 L D Band Neut # 3.4 L Lymph # (Auto) 0.[address] [place] # (Auto) 0.9 L Absolute Neuts (auto) Absolute Lymphs (auto) Absolute Monos (auto) Absolute Basos (auto) Monocytes % 17.1 H D PT with INR INR Potassium 5.4 H D Chloride Random Glucose 113 H Hemoglobin A1c % Calcium 7.8 L Total Bilirubin 1.3 H AST 73 H D Troponin I 0.09 H D B-Natriuretic Peptide 161.18 H Total Protein 6.0 L Albumin 2.4 L HDL Cholesterol Urine Protein 1+ H Urine Glucose (UA) 1+ H Urine Ketones 1+ H 04/08/17 04/09/17 04/09/17 13:10 05:05 05:05 WBC 3.7 L RBC 2.43 L Hgb 8.2 L D Hct 24.8 L D MCV 102.2 H RDW 17.1 H Plt Count 82 L D Band Neut # Lymph # (Auto) [place] # (Auto) Absolute Neuts (auto) 2.3 L Absolute Lymphs (auto) 0.7 L Absolute Monos (auto) 0.7 L Absolute Basos (auto) 0.0 L Monocytes % PT with INR 19.60 H INR 1.73 H D Potassium 3.4 L D Chloride 108 H Random Glucose Hemoglobin A1c % Calcium 7.2 L Total Bilirubin AST Troponin I 0.06 H D B-Natriuretic Peptide Total Protein 4.7 L D Albumin 2.1 L HDL Cholesterol 28 L Urine Protein Urine Glucose (UA) Urine Ketones 04/09/17 05:05 WBC RBC Hgb Hct MCV RDW Plt Count Band Neut # Lymph # (Auto) [place] # (Auto) Absolute Neuts (auto) Absolute Lymphs (auto) Absolute Monos (auto) Absolute Basos (auto) Monocytes % PT with INR INR Potassium Chloride Random Glucose Hemoglobin A1c % 8.4 H D Calcium Total Bilirubin AST Troponin I B-Natriuretic Peptide Total Protein Albumin HDL Cholesterol Urine Protein Urine Glucose (UA) Urine Ketones N- alert, oriented [id number] lungs- clear, diminished ABD- Soft, obese, nt LE- no edema A/P Shortness of breath anemia- symptomatic Multiple myeloma AFIB- SR now CAD DIASTOLIC dysfunction elevated troponin thrombocytopenia - cardiac eval noted -pulmonary evaluation noted -continue eliquis with caution -physical therapy - consider transfusion- one unit PRBC ordered , lasix post transfusion -hematology evaluation pending
[2017-04-09] MEDS: GABAPENTIN 400 MG CAPSULE (FP) PO SCH ×2 (10:01→21:43)
[2017-04-09] MEDS: DOCUSATE SODIUM 100 MG CAPSULE (FP) PO SCH ×2 (10:01→21:42)
[2017-04-09] MEDS: PANTOPRAZOLE 20 MG TABLET (FP) PO SCH (10:02)
[2017-04-09] MEDS: APIXABAN 5 MG TABLET PO SCH ×2 (10:02→21:43)
[2017-04-09] MEDS: METOPROLOL TARTRATE 50 MG TABLET (FP) PO SCH (10:03)
[2017-04-09] MEDS: POLYETHYLENE GLYCOL 3350 119 GM BTL PO SCH (10:05)
[2017-04-09] MEDS ORDERED: POTASSIUM CHLORIDE TABS 20 MEQ TABLET.ER (FP) PO ONE (10:39)
[2017-04-09 10:45] LABS: ANISOCYTOSIS 0; MACROCYTOSIS 0; PLATELET ESTIMATE DECREASED; TEAR DROP CELLS 1+
--- NOTE | 2017-04-09 12:29 | PN ---
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 (short form) - Note 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: PULMONARY CONSULTATION DICTATED 04/09/17 IMP DYSPNEA SYMPTOMATIC ANEMIA LV DIASTOLIC DYSFUNCTION ASHD PAF MM ANEMIA/THROMBOCYOPENIA HTN NIIDM PERIPHERAL NEUROPATHY PLAN O2 CONSIDER TRANSFUSION ELIQUIS MONITOR H+H TRAY/ARB RATE CONTROL DR SERRANO Problem List - Problems (1) Anemia Code(s): D64.9 - ANEMIA, UNSPECIFIED Qualifiers: Bone marrow failure anemia type: pancytopenia, antineoplastic chemotherapy- induced (2) SOB (shortness of breath) Code(s): R06.02 - SHORTNESS OF BREATH (3) Diastolic dysfunction Code(s): I51.9 - HEART DISEASE, UNSPECIFIED (4) Dyspnea Code(s): R06.00 - DYSPNEA, UNSPECIFIED (6) Thrombocytopenia Code(s): D69.6 - THROMBOCYTOPENIA, UNSPECIFIED (7) Atrial fibrillation Code(s): I48.91 - UNSPECIFIED ATRIAL FIBRILLATION Qualifiers: Atrial fibrillation type: paroxysmal Qualified Code(s): I48.0 - Paroxysmal atrial fibrillation
[2017-04-09] MEDS ORDERED: FUROSEMIDE 40 MG/4 ML INJECTABLE VIAL IVPUSH ONE ×2 (13:38→19:45)
--- NOTE | 2017-04-09 14:22 | CONSULT ---
Consult Consult Specialty:: Oncology Referred by:: Dr. Cannon Reason for Consultation:: Myeloma. Anemia. SOB - History of Present Illness Chief Complaint: SOB ,dyspnea History of Present Illness: Myeloma - s/p stem cell transplant in 2013 - In good clinical remission on maintenance of velcade and decadron. Recently hospitilized for rapid atrial fib, treated medically. Recently over past 3 weeks -- fall in hct from 39% to 24%. 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 Cardio/Vascular: Yes: HTN Heme/Onc: Yes: Other (Myeloma-- s/p stem cell transplant in 2013) Musculoskeletal: Yes: Chronic low back pain Additional Medical History: glaucoma with decreased vision and need for surgeryleft eye - Alcohol/Substance Use Hx Alcohol Use: No - Smoking History Smoking history: Former smoker Have you smoked in the past 12 months: No If you are a former smoker, when did you quit?: 40yrs - Social History Usual Living Arrangement: With Spouse Home Medications - Allergies Allergies/Adverse Reactions: Allergies Allergy/AdvReac Type Severity Reaction Status Date / Time No Known Allergies Allergy Verified 04/08/17 11:08 - Home Medications Home Medications: Ambulatory Orders Atorvastatin Ca [Lipitor] 40 mg PO HS 10/04/16 Gabapentin 400 mg PO BID 10/04/16 Oxycodone Sr [Oxycontin] 10 mg PO Q6H PRN 10/04/16 Apixaban [Eliquis -] 5 mg PO BID 30 Days #60 tablet 03/27/17 Diltiazem Cd [Cardizem Cd -] 120 mg PO DAILY #30 cap.cd.24h 03/27/17 Metoprolol Tartrate [Lopressor -] 50 mg PO BID #90 tablet 03/27/17 Metformin HCl [Glucophage -] 500 mg PO DAILY #30 tablet 03/28/17 Review of Systems - Review of Systems Constitutional: reports: Malaise, Weakness. denies: Fever, Night Sweats Eyes: reports: Other (glaucoma with decrease vision both eyes and need for surgery in left eye) HENT: denies: Epistaxis, Throat Pain Neck: denies: Swollen Glands Cardiovascular: reports: Shortness of Breath. denies: Chest Pain Respiratory: reports: Exercise Intolerance, SOB, SOB on Exertion Gastrointestinal: denies: Abdominal Pain, Bloating, Constipation, Diarrhea Genitourinary: denies: Dysuria, Hematuria Musculoskeletal: reports: Back Pain Neurological: reports: Numbness, Other (LE neuropathy) Hematology/Lymphatic: denies: Excessive Bleeding, Swollen Glands Psychiatric: reports: No Symptoms Pain Intensity: 7 (back) Physical Exam Vital Signs: Vital Signs Temperature 98.2 F 04/09/17 08:15 Pulse Rate 114 H 04/09/17 12:00 Respiratory Rate 22 04/09/17 12:00 Blood Pressure 120/74 04/09/17 12:00 O2 Sat by Pulse Oximetry (%) 96 04/09/17 09:00 Constitutional: Yes: Mild Distress Eyes: Yes: Other (glaucoma left eye > right eye -- need for surgery l eye) HENT: No: Nasal Congestion, Thrush, Tonsillar Exudate Neck: No: Lymphadenopathy, Tenderness, Thyromegaly Cardiovascular: Yes: Regular Rate and Rhythm, Murmur Respiratory: Yes: CTA Bilaterally Gastrointestinal: Yes: Normal Bowel Sounds, Soft. No: Hepatomegaly, Splenomegaly, Tenderness Musculoskeletal: Yes: Back Pain Extremities: No: Cold, Cyanosis Edema: No Peripheral Pulses WNL: No Integumentary: No: Bruising, Jaundice Neurological: Yes: Other (peripheral neuropathy) ...Motor Strength: LLE, RLE Psychiatric: Yes: WNL Labs: CBC, BMP 04/09/17 05:05 04/09/17 05:05 Problem List - Problems (1) Anemia Assessment/Plan: Patient has had fall in Hb/Hct from (39%---->32%----> 29%---24% over past 3 weeks. He has not had chemotherapy for > 3 weeks. It is not clear that he has chemotherapy induced anemia The fall in Hb/Hct over past 3 weeks raises concern for possible GI bleeding or hemolysis. Will need GI assessment and will screen for hemolysis. , Code(s): D64.9 - ANEMIA, UNSPECIFIED Qualifiers: Bone marrow failure anemia type: pancytopenia, antineoplastic chemotherapy- induced (2) Atrial fibrillation Assessment/Plan: Previous rapid A.F. - now in RSR. Code(s): I48.91 - UNSPECIFIED ATRIAL FIBRILLATION Qualifiers: Atrial fibrillation type: paroxysmal Qualified Code(s): I48.0 - Paroxysmal atrial fibrillation (3) SOB (shortness of breath) Assessment/Plan: Currently with significant anemia - Hct -24% However, patient symptomatic even when Hct was adequate. For cardiac and pulmonary follow up. Code(s): R06.02 - SHORTNESS OF BREATH (4) Acute bacterial conjunctivitis of left eye Assessment/Plan: Patient closely followed by opthomology. Had increased pressure and was scheduled for surgery which was cancelled because of thrombocytopenia. If the patient is to have a prolonged hospital stay, Dr. Bryant is one of his opthomologists. Code(s): H10.32 - UNSPECIFIED ACUTE CONJUNCTIVITIS, LEFT EYE (5) Hypokalemia Code(s): E87.6 - HYPOKALEMIA (6) Multiple myeloma in remission Assessment/Plan: Patient had stem cell transplant in 2013. He has had a clinical remission. Recent light chains and proteins suggest that patient continues in remission. In view of cytopenias, chemotherapy has been held now for > 3 weeks. Code(s): C90.01 - MULTIPLE MYELOMA IN REMISSION (7) Thrombocytopenia Assessment/Plan: Unclear etiology. Part is drug(chemotherapy related) as it has been a chronic problem. Acute fall is unexplained however. If persistent, may require marrow in future. Code(s): D69.6 - THROMBOCYTOPENIA, UNSPECIFIED
--- NOTE | 2017-04-09 15:33 | CON.GI ---
Consult Consult Specialty:: GI Reason for Consultation:: Anemia - History of Present Illness History of Present Illness: Covering Dr. Fuller Chart reviewed. Events notes. A 71 yom with myeloma in remission, with decrease in Hgb from 11 to 8 g/dl over the last 3 weeks (11 g/dl on 03/25/12; 8 g/dl today). Macrocytic, normochromic anemia and thrombocytopenia. Last dose of chemotherapy >3 weeks ago, per hematology consult. On Eliquis for a. fib with rvr. Hemocult negative stools as tested 2 days ago. No melena, hematochezia, hematemesis, jaundice reported by the patient, or hospital records. History of occasional dyspepsia and GERD-like symptoms, that respond well to OTC PPI. No history of gastrointestinal bleeding , or chronic gastrointestinal issues. Never had EGD, or colonoscopy. 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: Peripheral Neuropathy Cardio/Vascular: Yes: HTN Heme/Onc: Yes: Anemia, Other (myeloma) Musculoskeletal: Yes: Chronic low back pain Additional Medical History: glaucoma with decreased vision and need for surgeryleft eye - Alcohol/Substance Use Hx Alcohol Use: No - Smoking History Smoking history: Former smoker Have you smoked in the past 12 months: No If you are a former smoker, when did you quit?: 40yrs - Social History Usual Living Arrangement: With Spouse Home Medications - Allergies Allergies/Adverse Reactions: Allergies Allergy/AdvReac Type Severity Reaction Status Date / Time No Known Allergies Allergy Verified 04/08/17 11:08 - Home Medications Home Medications: Ambulatory Orders Atorvastatin Ca [Lipitor] 40 mg PO HS 10/04/16 Gabapentin 400 mg PO BID 10/04/16 Oxycodone Sr [Oxycontin] 10 mg PO Q6H PRN 10/04/16 Apixaban [Eliquis -] 5 mg PO BID 30 Days #60 tablet 03/27/17 Diltiazem Cd [Cardizem Cd -] 120 mg PO DAILY #30 cap.cd.24h 03/27/17 Metoprolol Tartrate [Lopressor -] 50 mg PO BID #90 tablet 03/27/17 Metformin HCl [Glucophage -] 500 mg PO DAILY #30 tablet 03/28/17 Family Disease History - Family Disease History Family History: Unremarkable (non-contributory) Review of Systems Findings/Remarks: please refer to H&P, HPI Physical Exam-GI Vital Signs: Vital Signs Temperature 99.3 F 04/09/17 14:00 Pulse Rate 107 H 04/09/17 14:00 Respiratory Rate 20 04/09/17 14:00 Blood Pressure 96/59 04/09/17 14:00 O2 Sat by Pulse Oximetry (%) 96 04/09/17 09:00 Constitutional: Yes: Well Nourished, No Distress, Calm, Obese, Pallor Eyes: Yes: Conjunctiva Clear HENT: Yes: Atraumatic, Other (dry mucous [place]) Neck: Yes: Supple Cardiovascular: Yes: Pulse Irregular Respiratory: Yes: Regular, On Nasal O2 Gastrointestinal Inspection: No: Distention ...Auscultate: Yes: Normoactive Bowel Sounds ...Palpate: Yes: Soft. No: Firm/Rigid, Guarding, Tenderness, Tenderness, Epigastium, Tenderness, Rebound ...Rectal Exam: Yes: Other (recent hemoccult negative) Neurological: Yes: Alert, Oriented Psychiatric: Yes: Alert Labs: CBC, BMP 04/09/17 05:05 04/09/17 05:05 INR, PTT INR 1.73 (0.82-1.09) H D 04/08/17 13:10 Abnormal Lab Results 04/08/17 04/08/17 04/08/17 12:03 13:10 13:10 WBC RBC Hgb Hct MCV RDW Plt Count Lymph # (Auto) 0.7 L [place] # (Auto) 0.9 L Absolute Neuts (auto) Absolute Lymphs (auto) Absolute Monos (auto) Absolute Basos (auto) Monocytes % (Manual) Potassium Chloride Hemoglobin A1c % Calcium Troponin I Total Protein Albumin HDL Cholesterol Urine Protein 1+ H Urine Glucose (UA) 1+ H Urine Ketones 1+ H Crossmatch See Detail 04/08/17 04/09/17 04/09/17 15:46 05:05 05:05 WBC 3.7 L RBC 2.43 L Hgb 8.2 L D Hct 24.8 L D MCV 102.2 H RDW 17.1 H Plt Count 82 L D Lymph # (Auto) [place] # (Auto) Absolute Neuts (auto) 2.3 L Absolute Lymphs (auto) 0.7 L Absolute Monos (auto) 0.7 L Absolute Basos (auto) 0.0 L Monocytes % (Manual) 17 H* D Potassium 3.4 L D Chloride 108 H Hemoglobin A1c % Calcium 7.2 L Troponin I 0.06 H D Total Protein 4.7 L D Albumin 2.1 L HDL Cholesterol 28 L Urine Protein Urine Glucose (UA) Urine Ketones Crossmatch See Detail 04/09/17 05:05 WBC RBC Hgb Hct MCV RDW Plt Count Lymph # (Auto) [place] # (Auto) Absolute Neuts (auto) Absolute Lymphs (auto) Absolute Monos (auto) Absolute Basos (auto) Monocytes % (Manual) Potassium Chloride Hemoglobin A1c % 8.4 H D Calcium Troponin I Total Protein Albumin HDL Cholesterol Urine Protein Urine Glucose (UA) Urine Ketones Crossmatch Problem List - Problems (1) Anemia Code(s): D64.9 - ANEMIA, UNSPECIFIED Qualifiers: Bone marrow failure anemia type: pancytopenia, antineoplastic chemotherapy- induced (2) SOB (shortness of breath) Code(s): R06.02 - SHORTNESS OF BREATH (3) Atrial fibrillation Code(s): I48.91 - UNSPECIFIED ATRIAL FIBRILLATION Qualifiers: Atrial fibrillation type: paroxysmal Qualified Code(s): I48.0 - Paroxysmal atrial fibrillation (4) Multiple myeloma in remission Code(s): C90.01 - MULTIPLE MYELOMA IN REMISSION Assessment/Plan Covering for Dr. Fuller 71 yom with myeloma in remission, with decrease in Hgb from 11 to 8 g/dl over the last 3 weeks (11 g/dl on 03/25/12; 8 g/dl today). Macrocytic, normochromic anemia and thrombocytopenia. Last dose of chemotherapy > 3 weeks ago, per hematology consult. On Eliquis for a. fib with rvr. Hemocult negative stools as tested 2 days ago. No melena, hematochezia, hematemesis, jaundice reported by the patient, or hospital records. History of occasional dyspepsia and GERD-like symptoms, that respond well to OTC PPI. No history of gastrointestinal bleeding , or chronic gastrointestinal issues. Never had EGD, or colonoscopy. No overt signs of GI blood loss LDH, haptoglobin and retic count as per hematology Close monitoring for melena, CBC daily EGD and colonocopy was discussed with the patient and he agrees to proceed. Need to be off Eliquis for 48 hrs prior to exams. We will follow the patient over the weekend.
--- NOTE | 2017-04-09 16:25 | PN ---
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 (short form) - Note 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: patient seen and examined with ADULT PROBATION OFFICER Megan this morning. case was discussed. I did review the documentation. I agree with physical exam I also discussed case with Dr. Gomez. GI consultation requested. Transfuse today. We will follow Vital Signs Period Temp Pulse Resp BP Sys/Max Pulse Ox Last 24 Hr 98.0 F-99.3 F 78-114 18-22 89-134/52-74 96-96 Active Medications Acetaminophen (Tylenol -) 650 mg PO Q6H PRN PRN Reason: FEVER OR PAIN Apixaban (Eliquis -) 5 mg PO BID [facility] Last Admin: 04/09/17 10:02 Dose: 5 mg Atorvastatin Calcium (Lipitor -) 40 mg PO HS [facility] Last Admin: 04/08/17 22:34 Dose: 40 mg Diltiazem HCl (Cardizem Cd -) 120 mg PO DAILY [facility] Last Admin: 04/09/17 11:55 Dose: 120 mg Docusate Sodium (Colace -) 100 mg PO BID [facility] Last Admin: 04/09/17 10:01 Dose: 100 mg Gabapentin (Neurontin -) 400 mg PO BID [facility] Last Admin: 04/09/17 10:01 Dose: 400 mg Insulin Aspart (Novolog Vial Sliding Scale -) 1 vial SQ TIDAC [facility] PRN Reason: Protocol Last Admin: 04/09/17 12:16 Dose: Not Given Metformin HCl (Glucophage -) 500 mg PO DAILY@0700 [facility] Last Admin: 04/09/17 06:26 Dose: 500 mg Nystatin (Nystatin Oral Suspension -) 500,000 units PO Q6HPO [facility] Oxycodone HCl (Oxycontin -) 10 mg PO Q6H PRN PRN Reason: PAIN Pantoprazole Sodium (Protonix -) 20 mg PO DAILY [facility] Last Admin: 04/09/17 10:02 Dose: 20 mg Polyethylene Glycol (Miralax (For Daily Use) -) 17 gm PO DAILY [facility] Last Admin: 04/09/17 10:05 Dose: Not Given CBC, BMP 04/09/17 05:05 04/09/17 05:05 PHYSICAL EXAM alert, oriented cvs-[id number] lungs- clear, diminished ABD- Soft, obese, nt LE- no edema A/P Shortness of breath anemia- symptomatic Multiple myeloma AFIB- SR now CAD DIASTOLIC dysfunction elevated troponin--likely stress related Cardiology on the case. thrombocytopenia - Problem List - Problems (1) Anemia Code(s): D64.9 - ANEMIA, UNSPECIFIED Qualifiers: Bone marrow failure anemia type: pancytopenia, antineoplastic chemotherapy- induced (2) SOB (shortness of breath) Code(s): R06.02 - SHORTNESS OF BREATH (3) Atrial fibrillation Code(s): I48.91 - UNSPECIFIED ATRIAL FIBRILLATION Qualifiers: Atrial fibrillation type: paroxysmal Qualified Code(s): I48.0 - Paroxysmal atrial fibrillation (4) Multiple myeloma in remission Code(s): C90.01 - MULTIPLE MYELOMA IN REMISSION
[2017-04-09] MEDS: NYSTATIN 500,000 UNITS/5 ML SUSPENSION PO SCH ×2 (17:41→23:46)
--- NOTE | 2017-04-09 18:54 | PN ---
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 (short form) - Note 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: Cardiology clearance prior to holding Eliquis and schedueling EGD and colonoscopy Problem List - Problems (1) Anemia Code(s): D64.9 - ANEMIA, UNSPECIFIED Qualifiers: Bone marrow failure anemia type: pancytopenia, antineoplastic chemotherapy- induced (2) SOB (shortness of breath) Code(s): R06.02 - SHORTNESS OF BREATH (3) Atrial fibrillation Code(s): I48.91 - UNSPECIFIED ATRIAL FIBRILLATION Qualifiers: Atrial fibrillation type: paroxysmal Qualified Code(s): I48.0 - Paroxysmal atrial fibrillation (4) Multiple myeloma in remission Code(s): C90.01 - MULTIPLE MYELOMA IN REMISSION
--- NOTE | 2017-04-09 20:00 | CONS ---
DATE OF CONSULTATION: 04/09/2017 PULMONARY CONSULTATION REFERRING PHYSICIAN: Kristal Cannon MD HISTORY OF PRESENT ILLNESS: The patient is a 71-year-old white male known to me from previous hospitalization. He has a past medical history of hypertensive cardiovascular disease, diastolic dysfunction, hypercholesterolemia, multiple myeloma on steroids, status post autologous stem cell transplants, status post chemotherapy, degenerative lumbosacral disk disease, chronic back pain, peripheral neuropathy, steroid-induced diabetes and a history of tobacco use more than 40 years ago. He was recently hospitalized at [facility] secondary to shortness of breath. He was readmitted on April 08, 2017 with a complaint of increasing shortness of breath, generalized weakness and decreased exercise capacity over the past week. The patient denies complaints of chest pain, nausea, vomiting or diaphoresis. He denies chronic cough or hemoptysis. He presented to the emergency room with the above. On admission, he was noted to be anemic. He was seen by for cardiologic consultation. The patient states that he walks a few steps and becomes markedly dyspneic. He denies orthopnea or PND. He denies hemoptysis. As stated above, he has a history of tobacco use greater than 40 years ago. He states that he was exposed to fumes secondary to the fall of the [employer] and attributes his multiple myeloma to inhalation of the fumes. He has no history of recent travel. There is no history of DVT or PE in the past. PAST MEDICAL HISTORY: Again, this includes multiple myeloma status autologous stem cell transplants, status post chemotherapy, paroxysmal atrial fibrillation maintained on anticoagulation, steroid-induced diabetes, hypertension, ASHD, diastolic dysfunction, hyperlipidemia, anemia, thrombocytopenia. REVIEW OF SYSTEMS: No orthopnea, PND, chest pain or palpitations. Positive for dyspnea on exertion and weakness. No fevers or chills. No weight loss or night sweats. SOCIAL HISTORY: History of smoking tobacco more than 40 years ago. 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 He had exposure to fumes following the fall of the [employer]. CURRENT MEDICATIONS: Eliquis 5 mg b.i.d., Neurontin, Glucophage, Cardizem CD, Colace, MiraLAX, Lipitor, OxyContin and Protonix. PHYSICAL EXAMINATION: General: The patient is an obese male, awake and alert, in no acute distress. Vital Signs: He is afebrile. Blood pressure is 120/74, respiratory rate 22, O2 saturation is 95% on 2 liters of oxygen. HEENT: Head is normocephalic, atraumatic. Neck: Supple. Heart: Irregular. S1, S2. Chest: Bibasilar crackles. Abdomen: Soft. Bowel sounds are positive. Extremities: No cyanosis or edema. LABORATORY: WBC is 3.7, hemoglobin 8.2, hematocrit 24.8, platelet count of 82,000. INR is 1.73. Potassium is 3.4, BUN 13, creatinine 0.8. A duplex of the lower extremities shows no evidence of a DVT. There is a cystic lesion in the popliteal fossa on the left that looks like a Morrison cyst. A chest x-ray shows no infiltrates or effusions. IMPRESSION: 1. Dyspnea, most likely secondary to symptomatic anemia. 2. Left ventricular diastolic dysfunction. 3. Arterial sclerotic heart disease. 4. Paroxysmal atrial fibrillation. 5. Multiple myeloma. 6. Anemia/thrombocytopenia. 7. Steroid-induced diabetes. 8. Peripheral neuropathy. PLAN: 1. Instead of transfusion, suggest supplemental O2. 2. Diuretics as per Cardiology. 3. Continue TRAY and ARBs. 4. Rate control as per Cardiology. 5. Continue anticoagulation. PAM SERRANO M.D. CRISTIAN/[id number]
[2017-04-09 21:32] LABS: BASO % 1.3 % (0-2.0); EOS % 1.9 % (0-4.5); HEMATOCRIT 29.7 % (35.4-49); HEMOGLOBIN 9.8 GM/dL (11.7-16.9); LYMPH % 19.6 % (8-40); MCH 32.9 pg (25.7-33.7); MEAN CELL VOLUME 99.6 fl (80-96); MEAN PLT VOLUME 9.1 fl (7.5-11.1); MONO % 16.9 % (3.8-10.2); NEUT % 60.3 % (42.8-82.8); PLATELET COUNT 99 K/MM3 (134-434); RBC 2.98 M/mm3 (4.00-5.60); RDW 18.7 % (11.9-15.9)
[2017-04-09] MEDS: ATORVASTATIN CA 40 MG TABLET (FP) PO SCH (21:43)
[2017-04-10] MEDS ORDERED: APIXABAN 5 MG TABLET PO SCH (06:00)
[2017-04-10] MEDS: INSULIN SLIDING SCALE (NOVOLOG) 1 VIAL SQ SCH ×3 (06:18→17:02)
[2017-04-10] MEDS: metFORMIN HCL 500 MG TABLET (FP) PO SCH (06:19)
[2017-04-10] MEDS: NYSTATIN 500,000 UNITS/5 ML SUSPENSION PO SCH ×4 (06:19→23:24)
[2017-04-10 08:08] LABS: HEMATOCRIT 29.8 % (35.4-49); HEMOGLOBIN 9.9 GM/dL (11.7-16.9); MCH 32.8 pg (25.7-33.7); MCHC 33.2 g/dl (32.0-35.9); MEAN CELL VOLUME 98.8 fl (80-96); MEAN PLT VOLUME 9.3 fl (7.5-11.1); PLATELET COUNT 91 K/MM3 (134-434); RBC 3.01 M/mm3 (4.00-5.60); RETICULOCYTES 3.33 % (0.5-1.5); WHITE BLOOD COUNT 4.4 K/mm3 (4.0-10.0)
[2017-04-10 08:31] LABS: ALBUMIN 2.3 g/dl (3.4-5.0); ANION GAP 11 (8-16); BLOOD UREA NITROGEN 13 mg/dL (7-18); CALCIUM 7.1 mg/dL (8.5-10.1); CHLORIDE 108 mmol/L (98-107); CO2 23 mmol/L (21-32); GLUCOSE,RANDOM 92 mg/dL (74-106); POTASSIUM 3.4 mmol/L (3.5-5.1); SODIUM 142 mmol/L (136-145)
[2017-04-10 08:36] LABS: ALK PHOS 72 U/L (45-117); BILIRUBIN,TOTAL 0.9 mg/dL (0.2-1.0); CREATININE 0.8 mg/dL (0.7-1.3); LDH 399 U/L (87-241); SGOT/AST 22 U/L (15-37); SGPT/ALT 26 U/L (12-78); TOT PROT 4.9 g/dl (6.4-8.2); URIC ACID 5.8 mg/dL (2.6-7.2)
--- NOTE | 2017-04-10 09:56 | PN ---
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, Physician History of Present Illness: pulmonary alert,nad,-cp,-sob at rest, +roldan - Current Medication List Current Medications: Active Medications Acetaminophen (Tylenol -) 650 mg PO Q6H PRN PRN Reason: FEVER OR PAIN Apixaban (Eliquis -) 5 mg PO BID [facility] Last Admin: 04/09/17 21:43 Dose: 5 mg Atorvastatin Calcium (Lipitor -) 40 mg PO HS [facility] Last Admin: 04/09/17 21:43 Dose: 40 mg Diltiazem HCl (Cardizem Cd -) 120 mg PO DAILY [facility] Last Admin: 04/09/17 11:55 Dose: 120 mg Docusate Sodium (Colace -) 100 mg PO BID [facility] Last Admin: 04/09/17 21:42 Dose: Not Given Gabapentin (Neurontin -) 400 mg PO BID [facility] Last Admin: 04/09/17 21:43 Dose: 400 mg Insulin Aspart (Novolog Vial Sliding Scale -) 1 vial SQ TIDAC [facility] PRN Reason: Protocol Last Admin: 04/10/17 06:18 Dose: Not Given Metformin HCl (Glucophage -) 500 mg PO DAILY@0700 [facility] Last Admin: 04/10/17 06:19 Dose: 500 mg Nystatin (Nystatin Oral Suspension -) 500,000 units PO Q6HPO [facility] Last Admin: 04/10/17 06:19 Dose: 500,000 units Oxycodone HCl (Oxycontin -) 10 mg PO Q6H PRN PRN Reason: PAIN Pantoprazole Sodium (Protonix -) 20 mg PO DAILY [facility] Last Admin: 04/09/17 10:02 Dose: 20 mg Polyethylene Glycol (Miralax (For Daily Use) -) 17 gm PO DAILY [facility] Last Admin: 04/09/17 10:05 Dose: Not Given - Objective Vital Signs: Vital Signs Temperature 99.0 F 04/10/17 02:24 Pulse Rate 98 H 04/10/17 06:57 Respiratory Rate 20 04/10/17 06:57 Blood Pressure 100/61 04/10/17 06:57 O2 Sat by Pulse Oximetry (%) 95 04/09/17 20:35 Constitutional: Yes: Well Nourished, Calm Eyes: Yes: WNL HENT: Yes: WNL Neck: Yes: WNL Cardiovascular: Yes: Pulse Irregular, S1, S2 Respiratory: Yes: Diminished Gastrointestinal: Yes: Normal Bowel Sounds, Soft Extremities: Yes: WNL Edema: No Labs: CBC, BMP 04/10/17 06:30 04/10/17 06:30 INR, PTT INR 1.73 (0.82-1.09) H D 04/08/17 13:10 Problem List - Problems (1) Anemia Code(s): D64.9 - ANEMIA, UNSPECIFIED Qualifiers: Bone marrow failure anemia type: pancytopenia, antineoplastic chemotherapy- induced (2) SOB (shortness of breath) Code(s): R06.02 - SHORTNESS OF BREATH (3) Diastolic dysfunction Code(s): I51.9 - HEART DISEASE, UNSPECIFIED (4) Dyspnea Code(s): R06.00 - DYSPNEA, UNSPECIFIED (6) Thrombocytopenia Code(s): D69.6 - THROMBOCYTOPENIA, UNSPECIFIED (7) Atrial fibrillation Code(s): I48.91 - UNSPECIFIED ATRIAL FIBRILLATION Qualifiers: Atrial fibrillation type: paroxysmal Qualified Code(s): I48.0 - Paroxysmal atrial fibrillation Assessment/Plan IMP DYSPNEA SYMPTOMATIC ANEMIA LV DIASTOLIC DYSFUNCTION ASHD PAF MM ANEMIA/THROMBOCYOPENIA HTN NIIDM PERIPHERAL NEUROPATHY PLAN O2 TRANSFUSION NEEDED ELIQUIS MONITOR H+H TRAY/ARB RATE CONTROL GI W/U DR SERRANO Problem List - Problems (1) Anemia Code(s): D64.9 - ANEMIA, UNSPECIFIED Qualifiers: Bone marrow failure anemia type: pancytopenia, antineoplastic chemotherapy- induced (2) SOB (shortness of breath) Code(s): R06.02 - SHORTNESS OF BREATH (3) Diastolic dysfunction Code(s): I51.9 - HEART DISEASE, UNSPECIFIED (4) Dyspnea Code(s): R06.00 - DYSPNEA, UNSPECIFIED (6) Thrombocytopenia Code(s): D69.6 - THROMBOCYTOPENIA, UNSPECIFIED (7) Atrial fibrillation Code(s): I48.91 - UNSPECIFIED ATRIAL FIBRILLATION Qualifiers: Atrial fibrillation type: paroxysmal Qualified Code(s): I48.0 - Paroxysmal atrial fibrillation
[2017-04-10] MEDS: DOCUSATE SODIUM 100 MG CAPSULE (FP) PO SCH ×2 (11:01→22:04)
[2017-04-10] MEDS: APIXABAN 5 MG TABLET PO SCH ×2 (11:01→22:05)
[2017-04-10] MEDS: PANTOPRAZOLE 20 MG TABLET (FP) PO SCH (11:02)
[2017-04-10] MEDS: GABAPENTIN 400 MG CAPSULE (FP) PO SCH ×2 (11:02→22:06)
[2017-04-10] MEDS: POLYETHYLENE GLYCOL 3350 119 GM BTL PO SCH (11:02)
--- NOTE | 2017-04-10 11:31 | PN ---
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, Physician History of Present Illness: Reports anorexia, dysphagia for solid foods. - Current Medication List Current Medications: Active Medications Acetaminophen (Tylenol -) 650 mg PO Q6H PRN PRN Reason: FEVER OR PAIN Apixaban (Eliquis -) 5 mg PO BID [facility] Last Admin: 04/10/17 11:01 Dose: 5 mg Atorvastatin Calcium (Lipitor -) 40 mg PO HS [facility] Last Admin: 04/09/17 21:43 Dose: 40 mg Diltiazem HCl (Cardizem Cd -) 120 mg PO DAILY [facility] Last Admin: 04/10/17 11:01 Dose: 120 mg Docusate Sodium (Colace -) 100 mg PO BID [facility] Last Admin: 04/10/17 11:01 Dose: 100 mg Gabapentin (Neurontin -) 400 mg PO BID [facility] Last Admin: 04/10/17 11:02 Dose: 400 mg Insulin Aspart (Novolog Vial Sliding Scale -) 1 vial SQ TIDAC [facility] PRN Reason: Protocol Last Admin: 04/10/17 11:06 Dose: Not Given Metformin HCl (Glucophage -) 500 mg PO DAILY@0700 [facility] Last Admin: 04/10/17 06:19 Dose: 500 mg Nystatin (Nystatin Oral Suspension -) 500,000 units PO Q6HPO [facility] Last Admin: 04/10/17 11:06 Dose: 500,000 units Oxycodone HCl (Oxycontin -) 10 mg PO Q6H PRN PRN Reason: PAIN Pantoprazole Sodium (Protonix -) 20 mg PO DAILY [facility] Last Admin: 04/10/17 11:02 Dose: 20 mg Polyethylene Glycol (Miralax (For Daily Use) -) 17 gm PO DAILY [facility] Last Admin: 04/10/17 11:02 Dose: Not Given - Objective Vital Signs: Vital Signs Temperature 99.0 F 04/10/17 02:24 Pulse Rate 98 H 04/10/17 06:57 Respiratory Rate 20 04/10/17 06:57 Blood Pressure 100/61 04/10/17 06:57 O2 Sat by Pulse Oximetry (%) 95 04/09/17 20:35 Constitutional: Yes: No Distress, Calm Neck: Yes: Supple Cardiovascular: Yes: Regular Rate and Rhythm Respiratory: Yes: Regular, Diminished Gastrointestinal: Yes: Soft, Hypoactive Bowel Sounds Edema: No Labs: CBC, BMP 04/10/17 06:30 04/10/17 06:30 INR, PTT INR 1.73 (0.82-1.09) H D 04/08/17 13:10 - ....Imaging EKG: Report Reviewed (Tele: ST, no recurrence of PAF) Problem List - Problems (1) SOB (shortness of breath) Code(s): R06.02 - SHORTNESS OF BREATH (2) Atrial fibrillation Code(s): I48.91 - UNSPECIFIED ATRIAL FIBRILLATION Qualifiers: Atrial fibrillation type: paroxysmal Qualified Code(s): I48.0 - Paroxysmal atrial fibrillation (3) Diastolic dysfunction Code(s): I51.9 - HEART DISEASE, UNSPECIFIED (4) Hypokalemia Code(s): E87.6 - HYPOKALEMIA (5) Multiple myeloma in remission Code(s): C90.01 - MULTIPLE MYELOMA IN REMISSION (6) Thrombocytopenia Code(s): D69.6 - THROMBOCYTOPENIA, UNSPECIFIED (7) Anemia Code(s): D64.9 - ANEMIA, UNSPECIFIED Qualifiers: Bone marrow failure anemia type: pancytopenia, antineoplastic chemotherapy- induced (8) Dysphagia Code(s): R13.10 - DYSPHAGIA, UNSPECIFIED Qualifiers: Dysphagia type: other dysphagia Qualified Code(s): R13.19 - Other dysphagia Assessment/Plan Echo: 03/27/2017 Normal biventricular size and fxn, normal biatrial sizes, no sig valve abnl 1. Progressive exertional dyspnea and fatigue referable to 2. Symptomatic anemia post transfusion 3. Possible recurrence of paroxysmal atrial fibrillation with periods of rapid ventricular response now in sinus rhythm [id number] score of 3, currently on Eliquis 4. Coronary artery disease angina pectoris 5. LV diastolic dysfunction, euvolemic 6. Hypertension 7. Type 2 DM 8. Hypercholesterolemia 9. Thrombocytopenia may be referable meds/fatty liver/chemo/> viral 10. History of multiple myeloma post stem cell transplant currently receiving chemotherapy 11. History of peripheral neuropathy 12. Hypokalemia 13. Dysphagia, anorexia PLAN: 1. Continue Eliquis 5 bid with caution considering the above-noted thrombocytopenia 2. Continue Cardizem CD 120 qd as tolerated and Lipitor 40 qd, roll handler to assess PAF recurrence 3. Recommend the addition of ACEI or ARBS hemodynamics permitting, potassium repleted 4. May undergo EGD/colonscopy from CV standpoint, would hold Eliquis 24 hours prior to planned low-bleeding risk procedures 5. PT, encourage ambulation
[2017-04-10] MEDS ORDERED: POTASSIUM CHLORIDE TABS 20 MEQ TABLET.ER (FP) PO ONE (12:00)
[2017-04-10 13:14] LABS: PLATELET ESTIMATE DECREASED
--- NOTE | 2017-04-10 13:25 | PN ---
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 (short form) - Note 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: Seen in follow up. Reports some abdominal discomfort, otherwise no new complaints Meds reviewed. Current Medications Generic Name Dose Route Start Last Admin Trade Name Freq PRN Reason Stop Dose Admin Acetaminophen 650 mg 04/08/17 19:09 Tylenol - PO Q6H PRN FEVER OR PAIN Apixaban 5 mg 04/08/17 20:00 04/10/17 11:01 Eliquis - PO 5 mg BID JAMIE Administration Atorvastatin Calcium 40 mg 04/08/17 22:00 04/09/17 21:43 Lipitor - PO 40 mg HS JAMIE Administration Diltiazem HCl 120 mg 04/09/17 10:00 04/10/17 11:01 Cardizem Cd - PO 120 mg DAILY JAMIE Administration Docusate Sodium 100 mg 04/08/17 22:00 04/10/17 11:01 Colace - PO 100 mg BID JAMIE Administration Gabapentin 400 mg 04/08/17 22:00 04/10/17 11:02 Neurontin - PO 400 mg BID JAMIE Administration Insulin Aspart 1 vial 04/09/17 07:00 04/10/17 11:06 Novolog Vial Sliding Scale - SQ Not Given TIDAC [facility] Protocol Metformin HCl 500 mg 04/09/17 07:00 04/10/17 06:19 Glucophage - PO 500 mg DAILY@0700 JAMIE Administration Nystatin 500,000 units 04/09/17 18:00 04/10/17 11:06 Nystatin Oral Suspension - PO 500,000 units Q6HPO JAMIE Administration Oxycodone HCl 10 mg 04/08/17 19:08 Oxycontin - PO Q6H PRN PAIN Pantoprazole Sodium 20 mg 04/09/17 10:00 04/10/17 11:02 Protonix - PO 20 mg DAILY JAMIE Administration Polyethylene Glycol 17 gm 04/09/17 10:00 04/10/17 11:02 Miralax (For Daily Use) - PO Not Given DAILY JAMIE On exam: Last Vital Signs Temp Pulse Resp BP Pulse Ox 99.0 F 98 H 20 100/61 95 04/10/17 02:24 04/10/17 06:57 04/10/17 06:57 04/10/17 06:57 04/09/17 20:35 General: Looks well, supine in bed. CVS: s1, S2, no gallop or murmur. Extremities: No pallor, no icterus. Chest: Breathing comfortably, clear. Abdomen: Not distended, non-tender, normal bowel sounds. Neuro: Alert, oriented, non-focal. CBC, BMP 04/10/17 06:30 04/10/17 06:30 Assessment. Multiple myeloma, thought to be in remission, presently on maintenance Velvcade/ DEX (last administered > 2 weeks ago),here with dyspnea, and concern about new unexplained anemia. Anemia macrocytic, also noted to be mildly thrombocytopenic , with relative monocytosis. Endoscopy pending - low index of suspicion for GI hemorrhage (hemeoccult negative 04/08) Will require bone marrow biopsy after weekend. Supportive care in interim.
--- NOTE | 2017-04-10 15:20 | PN ---
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 (short form) - Note 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: lying in bed . family at bed side remains sob. denies pain c/c- difficulty swallowing egd / colonoscopy planned eliquis to be held 2 days before procedure. Vital Signs Temp 98.6 F 04/10/17 10:00 Pulse 102 H 04/10/17 10:00 Resp 20 04/10/17 10:00 BP 101/65 04/10/17 10:00 Pulse Ox 96 04/10/17 10:00 Intake & Output 04/09/17 04/10/17 04/10/17 23:59 11:59 23:59 Intake Total 410 60 Output Total 575 Balance -165 60 Intake: IV 10 saline lock 10 Oral 60 50 Packed Cells 350 Output: Urine 575 Void 575 Other: Voiding Method Urinal Urinal Urinal # Unmeasured Voids Void 2 1 Bowel Movement Yes Yes # Bowel Movements 1 2 Active Medications Acetaminophen (Tylenol -) 650 mg PO Q6H PRN PRN Reason: FEVER OR PAIN Apixaban (Eliquis -) 5 mg PO BID [facility] Last Admin: 04/10/17 11:01 Dose: 5 mg Atorvastatin Calcium (Lipitor -) 40 mg PO HS [facility] Last Admin: 04/09/17 21:43 Dose: 40 mg Diltiazem HCl (Cardizem Cd -) 120 mg PO DAILY [facility] Last Admin: 04/10/17 11:01 Dose: 120 mg Docusate Sodium (Colace -) 100 mg PO BID [facility] Last Admin: 04/10/17 11:01 Dose: 100 mg Gabapentin (Neurontin -) 400 mg PO BID [facility] Last Admin: 04/10/17 11:02 Dose: 400 mg Insulin Aspart (Novolog Vial Sliding Scale -) 1 vial SQ TIDAC [facility] PRN Reason: Protocol Last Admin: 04/10/17 11:06 Dose: Not Given Nystatin (Nystatin Oral Suspension -) 500,000 units PO Q6HPO [facility] Last Admin: 04/10/17 11:06 Dose: 500,000 units Oxycodone HCl (Oxycontin -) 10 mg PO Q6H PRN PRN Reason: PAIN Pantoprazole Sodium (Protonix -) 20 mg PO DAILY [facility] Last Admin: 04/10/17 11:02 Dose: 20 mg Polyethylene Glycol (Miralax (For Daily Use) -) 17 gm PO DAILY [facility] Last Admin: 04/10/17 11:02 Dose: Not Given Potassium Chloride (Potassium Chloride Oral Liquid) 40 meq PO ONCE ONE Stop: 04/10/17 15:20 CBC, BMP 04/10/17 06:30 04/10/17 06:30 Microbiology 04/08/17 13:10 Blood Culture - Preliminary Blood - Peripheral Venous NO GROWTH OBTAINED AFTER 48 HOURS, INCUBATION TO CONTINUE FOR 3 DAYS. 04/08/17 13:10 Blood Culture - Preliminary Blood - Peripheral Venous NO GROWTH OBTAINED AFTER 48 HOURS, INCUBATION TO CONTINUE FOR 3 DAYS. PHYSICAL EXAM alert, oriented cvs-s1s2 lungs- clear, diminished at bases ABD- Soft, obese, nt LE- no edema A/P Shortness of breath anemia- symptomatic Multiple myeloma AFIB- SR now CAD DIASTOLIC dysfunction elevated troponin--likely stress related Cardiology on the case. anemia work up in progress doubt gi bleed -- guiac -ve sob - likely due to chemo. continue present care will follow discussed with family. - Problem List - Problems (1) Anemia Code(s): D64.9 - ANEMIA, UNSPECIFIED Qualifiers: Bone marrow failure anemia type: pancytopenia, antineoplastic chemotherapy- induced (2) SOB (shortness of breath) Code(s): R06.02 - SHORTNESS OF BREATH (3) Atrial fibrillation Code(s): I48.91 - UNSPECIFIED ATRIAL FIBRILLATION Qualifiers: Atrial fibrillation type: paroxysmal Qualified Code(s): I48.0 - Paroxysmal atrial fibrillation (4) Multiple myeloma in remission Code(s): C90.01 - MULTIPLE MYELOMA IN REMISSION
[2017-04-10] MEDS ORDERED: POTASSIUM CHLORIDE ORAL LIQUID 20 MEQ/15 ML PO ONE (16:00)
[2017-04-10] MEDS: ATORVASTATIN CA 40 MG TABLET (FP) PO SCH (22:06)
[2017-04-11] MEDS: NYSTATIN 500,000 UNITS/5 ML SUSPENSION PO SCH ×3 (06:25→17:50)
[2017-04-11] MEDS: INSULIN SLIDING SCALE (NOVOLOG) 1 VIAL SQ SCH ×3 (06:25→16:38)
[2017-04-11 07:57] LABS: BASO % 2.2 % (0-2.0); EOS % 1.7 % (0-4.5); HEMATOCRIT 29.7 % (35.4-49); HEMOGLOBIN 9.6 GM/dL (11.7-16.9); LYMPH % 17.7 % (8-40); MCH 32.4 pg (25.7-33.7); MCHC 32.5 g/dl (32.0-35.9); MEAN CELL VOLUME 99.7 fl (80-96); MEAN PLT VOLUME 8.8 fl (7.5-11.1); NEUT % 61.4 % (42.8-82.8); PLATELET COUNT 101 K/MM3 (134-434); RBC 2.98 M/mm3 (4.00-5.60); RDW 19.1 % (11.9-15.9); RETICULOCYTES 3.07 % (0.5-1.5); WHITE BLOOD COUNT 4.6 K/mm3 (4.0-10.0)
[2017-04-11 08:39] LABS: ANION GAP 12 (8-16); BLOOD UREA NITROGEN 11 mg/dL (7-18); CALCIUM 7.5 mg/dL (8.5-10.1); CHLORIDE 108 mmol/L (98-107); CO2 22 mmol/L (21-32); GLUCOSE,RANDOM 113 mg/dL (74-106); POTASSIUM 3.3 mmol/L (3.5-5.1); SODIUM 142 mmol/L (136-145)
[2017-04-11 08:42] LABS: CREATININE 0.8 mg/dL (0.7-1.3)
--- NOTE | 2017-04-11 09:37 | PN ---
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, Physician History of Present Illness: pulmonary alert,no distress,-cp,-sob - Current Medication List Current Medications: Active Medications Acetaminophen (Tylenol -) 650 mg PO Q6H PRN PRN Reason: FEVER OR PAIN Apixaban (Eliquis -) 5 mg PO BID [facility] Last Admin: 04/10/17 22:05 Dose: 5 mg Atorvastatin Calcium (Lipitor -) 40 mg PO HS [facility] Last Admin: 04/10/17 22:06 Dose: 40 mg Diltiazem HCl (Cardizem Cd -) 120 mg PO DAILY [facility] Last Admin: 04/10/17 11:01 Dose: 120 mg Docusate Sodium (Colace -) 100 mg PO BID [facility] Last Admin: 04/10/17 22:04 Dose: Not Given Gabapentin (Neurontin -) 400 mg PO BID [facility] Last Admin: 04/10/17 22:06 Dose: 400 mg Insulin Aspart (Novolog Vial Sliding Scale -) 1 vial SQ TIDAC [facility] PRN Reason: Protocol Last Admin: 04/11/17 06:25 Dose: Not Given Nystatin (Nystatin Oral Suspension -) 500,000 units PO Q6HPO [facility] Last Admin: 04/11/17 06:25 Dose: 500,000 units Oxycodone HCl (Oxycontin -) 10 mg PO Q6H PRN PRN Reason: PAIN Pantoprazole Sodium (Protonix -) 20 mg PO DAILY [facility] Last Admin: 04/10/17 11:02 Dose: 20 mg Polyethylene Glycol (Miralax (For Daily Use) -) 17 gm PO DAILY [facility] Last Admin: 04/10/17 11:02 Dose: Not Given - Objective Vital Signs: Vital Signs Temperature 99.2 F 04/11/17 06:00 Pulse Rate 100 H 04/11/17 06:00 Respiratory Rate 18 04/11/17 06:00 Blood Pressure 102/62 04/11/17 06:00 O2 Sat by Pulse Oximetry (%) 95 04/10/17 21:00 Constitutional: Yes: Well Nourished, Calm Eyes: Yes: WNL HENT: Yes: WNL Neck: Yes: WNL Cardiovascular: Yes: Pulse Irregular, S1, S2 Respiratory: Yes: CTA Bilaterally Gastrointestinal: Yes: Normal Bowel Sounds, Soft Extremities: Yes: WNL Edema: No Labs: CBC, BMP 04/11/17 06:38 04/11/17 06:38 INR, PTT INR 1.73 (0.82-1.09) H D 04/08/17 13:10 Problem List - Problems (1) Anemia Code(s): D64.9 - ANEMIA, UNSPECIFIED Qualifiers: Bone marrow failure anemia type: pancytopenia, antineoplastic chemotherapy- induced (2) SOB (shortness of breath) Code(s): R06.02 - SHORTNESS OF BREATH (3) Diastolic dysfunction Code(s): I51.9 - HEART DISEASE, UNSPECIFIED (4) Dyspnea Code(s): R06.00 - DYSPNEA, UNSPECIFIED (6) Thrombocytopenia Code(s): D69.6 - THROMBOCYTOPENIA, UNSPECIFIED (7) Atrial fibrillation Code(s): I48.91 - UNSPECIFIED ATRIAL FIBRILLATION Qualifiers: Atrial fibrillation type: paroxysmal Qualified Code(s): I48.0 - Paroxysmal atrial fibrillation Assessment/Plan IMP DYSPNEA IMPROVED SYMPTOMATIC ANEMIA LV DIASTOLIC DYSFUNCTION ASHD PAF MM ANEMIA/THROMBOCYOPENIA HTN NIIDM PERIPHERAL NEUROPATHY PLAN O2 TRANSFUSION NEEDED ELIQUIS MONITOR H+H TRAY/ARB RATE CONTROL GI W/U IN PROGRESS DR SERRANO Problem List - Problems (1) Anemia Code(s): D64.9 - ANEMIA, UNSPECIFIED Qualifiers: Bone marrow failure anemia type: pancytopenia, antineoplastic chemotherapy- induced (2) SOB (shortness of breath) Code(s): R06.02 - SHORTNESS OF BREATH (3) Diastolic dysfunction Code(s): I51.9 - HEART DISEASE, UNSPECIFIED (4) Dyspnea Code(s): R06.00 - DYSPNEA, UNSPECIFIED (6) Thrombocytopenia Code(s): D69.6 - THROMBOCYTOPENIA, UNSPECIFIED (7) Atrial fibrillation Code(s): I48.91 - UNSPECIFIED ATRIAL FIBRILLATION Qualifiers: Atrial fibrillation type: paroxysmal Qualified Code(s): I48.0 - Paroxysmal atrial fibrillation
[2017-04-11] MEDS: POLYETHYLENE GLYCOL 3350 119 GM BTL PO SCH (09:39)
[2017-04-11] MEDS: DOCUSATE SODIUM 100 MG CAPSULE (FP) PO SCH ×2 (09:39→21:50)
[2017-04-11] MEDS: APIXABAN 5 MG TABLET PO SCH (09:39)
[2017-04-11] MEDS: PANTOPRAZOLE 20 MG TABLET (FP) PO SCH (09:39)
[2017-04-11] MEDS: GABAPENTIN 400 MG CAPSULE (FP) PO SCH ×2 (09:39→21:51)
--- NOTE | 2017-04-11 11:18 | PN ---
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, Physician History of Present Illness: Lying in bed, still weak. - Current Medication List Current Medications: Active Medications Acetaminophen (Tylenol -) 650 mg PO Q6H PRN PRN Reason: FEVER OR PAIN Apixaban (Eliquis -) 5 mg PO BID [facility] Last Admin: 04/11/17 09:39 Dose: Not Given Atorvastatin Calcium (Lipitor -) 40 mg PO HS [facility] Last Admin: 04/10/17 22:06 Dose: 40 mg Diltiazem HCl (Cardizem Cd -) 120 mg PO DAILY [facility] Last Admin: 04/11/17 09:39 Dose: 120 mg Docusate Sodium (Colace -) 100 mg PO BID [facility] Last Admin: 04/11/17 09:39 Dose: 100 mg Gabapentin (Neurontin -) 400 mg PO BID [facility] Last Admin: 04/11/17 09:39 Dose: 400 mg Insulin Aspart (Novolog Vial Sliding Scale -) 1 vial SQ TIDAC [facility] PRN Reason: Protocol Last Admin: 04/11/17 06:25 Dose: Not Given Nystatin (Nystatin Oral Suspension -) 500,000 units PO Q6HPO [facility] Last Admin: 04/11/17 06:25 Dose: 500,000 units Oxycodone HCl (Oxycontin -) 10 mg PO Q6H PRN PRN Reason: PAIN Pantoprazole Sodium (Protonix -) 20 mg PO DAILY [facility] Last Admin: 04/11/17 09:39 Dose: 20 mg Polyethylene Glycol (Miralax (For Daily Use) -) 17 gm PO DAILY [facility] Last Admin: 04/11/17 09:39 Dose: Not Given - Objective Vital Signs: Vital Signs Temperature 99.2 F 04/11/17 06:00 Pulse Rate 100 H 04/11/17 06:00 Respiratory Rate 18 04/11/17 06:00 Blood Pressure 102/62 04/11/17 06:00 O2 Sat by Pulse Oximetry (%) 95 04/10/17 21:00 Constitutional: Yes: No Distress, Calm Neck: Yes: Supple Cardiovascular: Yes: Regular Rate and Rhythm Respiratory: Yes: Regular, Diminished, On Nasal O2 Gastrointestinal: Yes: Normal Bowel Sounds, Soft, Abdomen, Obese Edema: No Labs: CBC, BMP 04/11/17 06:38 04/11/17 06:38 INR, PTT INR 1.73 (0.82-1.09) H D 04/08/17 13:10 - ....Imaging EKG: Report Reviewed (Tele: No PAF) Problem List - Problems (1) SOB (shortness of breath) Code(s): R06.02 - SHORTNESS OF BREATH (2) Atrial fibrillation Code(s): I48.91 - UNSPECIFIED ATRIAL FIBRILLATION Qualifiers: Atrial fibrillation type: paroxysmal Qualified Code(s): I48.0 - Paroxysmal atrial fibrillation (3) Diastolic dysfunction Code(s): I51.9 - HEART DISEASE, UNSPECIFIED (4) Hypokalemia Code(s): E87.6 - HYPOKALEMIA (5) Multiple myeloma in remission Code(s): C90.01 - MULTIPLE MYELOMA IN REMISSION (6) Thrombocytopenia Code(s): D69.6 - THROMBOCYTOPENIA, UNSPECIFIED (7) Anemia Code(s): D64.9 - ANEMIA, UNSPECIFIED Qualifiers: Bone marrow failure anemia type: pancytopenia, antineoplastic chemotherapy- induced (8) Dysphagia Code(s): R13.10 - DYSPHAGIA, UNSPECIFIED Qualifiers: Dysphagia type: other dysphagia Qualified Code(s): R13.19 - Other dysphagia Assessment/Plan Echo: 03/27/2017 Normal biventricular size and fxn, normal biatrial sizes, no sig valve abnl 1. Progressive exertional dyspnea and fatigue referable to 2. Symptomatic anemia post transfusion 3. Possible recurrence of paroxysmal atrial fibrillation with periods of rapid ventricular response now in sinus rhythm [id number] score of 3, currently on Eliquis 4. Coronary artery disease angina pectoris 5. LV diastolic dysfunction, euvolemic 6. Hypertension 7. Type 2 DM 8. Hypercholesterolemia 9. Thrombocytopenia may be referable meds/fatty liver/chemo/> viral 10. History of multiple myeloma post stem cell transplant currently receiving chemotherapy 11. History of peripheral neuropathy 12. Hypokalemia 13. Dysphagia, anorexia PLAN: 1. Continue Eliquis 5 bid with caution considering the above-noted thrombocytopenia 2. Continue Cardizem CD 120 qd as tolerated and Lipitor 40 qd, principal security architect to assess PAF recurrence 3. Recommend the addition of ACEI or ARBS hemodynamics permitting, potassium repleted 4. May undergo EGD/colonscopy from CV standpoint, holding Eliquis prior to planned procedure, resume once post-procedure hemostasis achieved 5. PT, encourage ambulation, bone marrow biopsy in future
--- NOTE | 2017-04-11 12:53 | PN ---
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 (short form) - Note 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: Seen in follow up. Reports abdominal discomfort yesterday improved, otherwise no new complaints. Still complaining of difficult eating food - dry mouth, No problem with fluids. Still reports getting winded when ambulating. Meds reviewed. Current Medications Generic Name Dose Route Start Last Admin Trade Name Freq PRN Reason Stop Dose Admin Acetaminophen 650 mg 04/08/17 19:09 Tylenol - PO Q6H PRN FEVER OR PAIN Apixaban 5 mg 04/08/17 20:00 04/11/17 09:39 Eliquis - PO Not Given BID JAMIE Atorvastatin Calcium 40 mg 04/08/17 22:00 04/10/17 22:06 Lipitor - PO 40 mg HS JAMIE Administration Diltiazem HCl 120 mg 04/09/17 10:00 04/11/17 09:39 Cardizem Cd - PO 120 mg DAILY JAMIE Administration Docusate Sodium 100 mg 04/08/17 22:00 04/11/17 09:39 Colace - PO 100 mg BID JAMIE Administration Gabapentin 400 mg 04/08/17 22:00 04/11/17 09:39 Neurontin - PO 400 mg BID JAMIE Administration Insulin Aspart 1 vial 04/09/17 07:00 04/11/17 12:27 Novolog Vial Sliding Scale - SQ Not Given TIDAC [facility] Protocol Nystatin 500,000 units 04/09/17 18:00 04/11/17 06:25 Nystatin Oral Suspension - PO 500,000 units Q6HPO JAMIE Administration Oxycodone HCl 10 mg 04/08/17 19:08 Oxycontin - PO Q6H PRN PAIN Pantoprazole Sodium 20 mg 04/09/17 10:00 04/11/17 09:39 Protonix - PO 20 mg DAILY JAMIE Administration Polyethylene Glycol 17 gm 04/09/17 10:00 04/11/17 09:39 Miralax (For Daily Use) - PO Not Given DAILY JAMIE On exam: Last Vital Signs Temp Pulse Resp BP Pulse Ox 98.7 F 98 H 18 97/57 96 04/11/17 11:51 04/11/17 11:51 04/11/17 11:51 04/11/17 11:51 04/11/17 09:00 General: Looks well, supine in bed. CVS: s1, S2, no gallop or murmur. Extremities: No pallor, no icterus. Chest: Breathing comfortably, clear. Abdomen: Not distended, non-tender, normal bowel sounds. Neuro: Alert, oriented, non-focal. CBC, BMP 04/11/17 06:38 04/11/17 06:38 Assessment. Multiple myeloma, thought to be in remission, presently on maintenance Velvcade/ DEX (last administered > 2 weeks ago),here with dyspnea, and concern about new unexplained anemia. Anemia macrocytic, also noted to be mildly thrombocytopenic , with relative monocytosis. Endoscopy pending - low index of suspicion for GI hemorrhage (hemeoccult negative 04/08) Hb stable sinve transfusion 2 days ago. Unclear why he is still experiencing dyspnea with moderate exertion - low index of suspicion that this is attributable to his mild anemia. Cardiav/pulmonary etiology. Will require bone marrow biopsy after weekend. Supportive care/ observation in interim.
--- NOTE | 2017-04-11 13:10 | PN ---
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, Physician History of Present Illness: comfortable denies cp. no sob today c/c- difficulty swallowing eliquis held as egd/ colonoscopy planned for [facility] oncology f//u also noted- bm biopsy being considered denies pain - Current Medication List Current Medications: Active Medications Acetaminophen (Tylenol -) 650 mg PO Q6H PRN PRN Reason: FEVER OR PAIN Apixaban (Eliquis -) 5 mg PO BID [facility] Last Admin: 04/11/17 09:39 Dose: Not Given Atorvastatin Calcium (Lipitor -) 40 mg PO HS [facility] Last Admin: 04/10/17 22:06 Dose: 40 mg Diltiazem HCl (Cardizem Cd -) 120 mg PO DAILY [facility] Last Admin: 04/11/17 09:39 Dose: 120 mg Docusate Sodium (Colace -) 100 mg PO BID [facility] Last Admin: 04/11/17 09:39 Dose: 100 mg Gabapentin (Neurontin -) 400 mg PO BID [facility] Last Admin: 04/11/17 09:39 Dose: 400 mg Insulin Aspart (Novolog Vial Sliding Scale -) 1 vial SQ TIDAC [facility] PRN Reason: Protocol Last Admin: 04/11/17 12:27 Dose: Not Given Nystatin (Nystatin Oral Suspension -) 500,000 units PO Q6HPO [facility] Last Admin: 04/11/17 12:59 Dose: 500,000 units Oxycodone HCl (Oxycontin -) 10 mg PO Q6H PRN PRN Reason: PAIN Pantoprazole Sodium (Protonix -) 20 mg PO DAILY [facility] Last Admin: 04/11/17 09:39 Dose: 20 mg Polyethylene Glycol (Miralax (For Daily Use) -) 17 gm PO DAILY [facility] Last Admin: 04/11/17 09:39 Dose: Not Given - Objective Vital Signs: Vital Signs Temperature 98.7 F 04/11/17 11:51 Pulse Rate 98 H 04/11/17 11:51 Respiratory Rate 18 04/11/17 11:51 Blood Pressure 97/57 04/11/17 11:51 O2 Sat by Pulse Oximetry (%) 96 04/11/17 09:00 Constitutional: Yes: No Distress, Calm Eyes: Yes: Conjunctiva Clear HENT: Yes: Other (throat - clear - no thrush) Neck: Yes: Supple Cardiovascular: Yes: Pulse Irregular. No: Regular Rate and Rhythm Respiratory: Yes: Diminished (at bases) Gastrointestinal: Yes: Normal Bowel Sounds, Soft Edema: No Neurological: Yes: Alert Psychiatric: Yes: Alert Labs: CBC, BMP 04/11/17 06:38 04/11/17 06:38 INR, PTT INR 1.73 (0.82-1.09) H D 04/08/17 13:10 Problem List - Problems (1) Anemia Code(s): D64.9 - ANEMIA, UNSPECIFIED Qualifiers: Bone marrow failure anemia type: pancytopenia, antineoplastic chemotherapy- induced (2) SOB (shortness of breath) Code(s): R06.02 - SHORTNESS OF BREATH (3) Atrial fibrillation Code(s): I48.91 - UNSPECIFIED ATRIAL FIBRILLATION Qualifiers: Atrial fibrillation type: paroxysmal Qualified Code(s): I48.0 - Paroxysmal atrial fibrillation (4) Multiple myeloma in remission Code(s): C90.01 - MULTIPLE MYELOMA IN REMISSION Assessment/Plan overall stable work up for anemia/ dysphagia in progress RN reports he has good breakfast though. Continue present care d/c tele if ok with cardiology. will follow
--- NOTE | 2017-04-11 15:38 | PN ---
GI 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 Subjective: GI FOR DR ZAFAR GOODRICH: NO GI C/O NO DARK STOOLS NO RECTAL BLEEDING SOME DRY MOUTH AND THROAT NO N/V/F/C/S NO DIARRHEA - Objective Vital Signs: Vital Signs Temperature 98.6 F 04/11/17 14:15 Pulse Rate 101 H 04/11/17 14:15 Respiratory Rate 18 04/11/17 14:15 Blood Pressure 110/68 04/11/17 14:15 O2 Sat by Pulse Oximetry (%) 96 04/11/17 09:00 Constitutional: Well Nourished, No Distress, Calm, Pallor Gastrointestinal Inspection: Yes: WNL Labs: CBC, BMP 04/11/17 06:38 04/11/17 06:38 INR, PTT INR 1.73 (0.82-1.09) H D 04/08/17 13:10 Assessment/Plan 71M WITH HX OF CARDIAC DISEASE/MM FOUND TO HAVE A NEW MACROCYTIC ANEMIA AND GUAIAC NEG STOOL AND NO GI C/O AT THIS TIME AGREE WITH HEME EVAL. AND BM BX NO EVIDENCE OF IRON DEF. PT WITH UNEXPLAINED DYSPNEA AND NO EVIDENCE OF ANY ACTIVE GI BLEEDING ON TELEMETRY, WILL DEFER A GI W/U AT THIS TIME TO A ROUTINE OUTPATIENT SETTING MD SHEA
[2017-04-11] MEDS: ATORVASTATIN CA 40 MG TABLET (FP) PO SCH (21:50)
[2017-04-12] MEDS: INSULIN SLIDING SCALE (NOVOLOG) 1 VIAL SQ SCH ×3 (06:50→17:22)
[2017-04-12] MEDS: NYSTATIN 500,000 UNITS/5 ML SUSPENSION PO SCH ×4 (06:51→17:22)
--- NOTE | 2017-04-12 09:55 | PN ---
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, Physician History of Present Illness: pulmonary alert,no distress,-cp,+roldan - Current Medication List Current Medications: Active Medications Acetaminophen (Tylenol -) 650 mg PO Q6H PRN PRN Reason: FEVER OR PAIN Apixaban (Eliquis -) 5 mg PO BID [facility] [place] Last Admin: 04/11/17 09:39 Dose: Not Given Atorvastatin Calcium (Lipitor -) 40 mg PO HS [facility] [place] Last Admin: 04/11/17 21:50 Dose: 40 mg Diltiazem HCl (Cardizem Cd -) 120 mg PO DAILY [facility] [place] Last Admin: 04/11/17 09:39 Dose: 120 mg Docusate Sodium (Colace -) 100 mg PO BID [facility] [place] Last Admin: 04/11/17 21:50 Dose: 100 mg Gabapentin (Neurontin -) 400 mg PO BID [facility] [place] Last Admin: 04/11/17 21:51 Dose: 400 mg Insulin Aspart (Novolog Vial Sliding Scale -) 1 vial SQ TIDAC [facility] [place] PRN Reason: Protocol Last Admin: 04/12/17 06:50 Dose: Not Given Nystatin (Nystatin Oral Suspension -) 500,000 units PO Q6HPO [facility] [place] Last Admin: 04/12/17 06:51 Dose: 500,000 units Pantoprazole Sodium (Protonix -) 20 mg PO DAILY [facility] [place] Last Admin: 04/11/17 09:39 Dose: 20 mg Polyethylene Glycol (Miralax (For Daily Use) -) 17 gm PO DAILY [facility] [place] Last Admin: 04/11/17 09:39 Dose: Not Given - Objective Vital Signs: Vital Signs Temperature 99.1 F 04/12/17 05:00 Pulse Rate 111 H 04/12/17 05:00 Respiratory Rate 18 04/12/17 05:00 Blood Pressure 95/59 04/12/17 05:00 O2 Sat by Pulse Oximetry (%) 96 04/11/17 21:00 Constitutional: Yes: Well Nourished, Calm Eyes: Yes: WNL HENT: Yes: WNL Neck: Yes: WNL Cardiovascular: Yes: Regular Rate and Rhythm, S1, S2 Respiratory: Yes: Rales (bilateral crackles 1/3 up) Gastrointestinal: Yes: Normal Bowel Sounds, Soft Extremities: Yes: WNL Edema: No Labs: I Problem List - Problems (1) Anemia Code(s): D64.9 - ANEMIA, UNSPECIFIED Qualifiers: Bone marrow failure anemia type: pancytopenia, antineoplastic chemotherapy- induced (2) SOB (shortness of breath) Code(s): R06.02 - SHORTNESS OF BREATH (3) Diastolic dysfunction Code(s): I51.9 - HEART DISEASE, UNSPECIFIED (4) Dyspnea Code(s): R06.00 - DYSPNEA, UNSPECIFIED (6) Thrombocytopenia Code(s): D69.6 - THROMBOCYTOPENIA, UNSPECIFIED (7) Atrial fibrillation Code(s): I48.91 - UNSPECIFIED ATRIAL FIBRILLATION Qualifiers: Atrial fibrillation type: paroxysmal Qualified Code(s): I48.0 - Paroxysmal atrial fibrillation Assessment/Plan IMP DYSPNEA IMPROVED SYMPTOMATIC ANEMIA LV DIASTOLIC DYSFUNCTION ASHD PAF MM ANEMIA/THROMBOCYOPENIA HTN NIIDM PERIPHERAL NEUROPATHY PLAN O2 TRANSFUSION NEEDED ELIQUIS MONITOR H+H RATE CONTROL GI W/U IN PROGRESS,ENDOSCOPY AM DR SERRANO Problem List - Problems (1) Anemia Code(s): D64.9 - ANEMIA, UNSPECIFIED Qualifiers: Bone marrow failure anemia type: pancytopenia, antineoplastic chemotherapy- induced (2) SOB (shortness of breath) Code(s): R06.02 - SHORTNESS OF BREATH (3) Diastolic dysfunction Code(s): I51.9 - HEART DISEASE, UNSPECIFIED (4) Dyspnea Code(s): R06.00 - DYSPNEA, UNSPECIFIED (6) Thrombocytopenia Code(s): D69.6 - THROMBOCYTOPENIA, UNSPECIFIED (7) Atrial fibrillation Code(s): I48.91 - UNSPECIFIED ATRIAL FIBRILLATION Qualifiers: Atrial fibrillation type: paroxysmal Qualified Code(s): I48.0 - Paroxysmal atrial fibrillation
[2017-04-12] MEDS: GABAPENTIN 400 MG CAPSULE (FP) PO SCH ×2 (10:06→21:42)
[2017-04-12] MEDS: PANTOPRAZOLE 20 MG TABLET (FP) PO SCH (10:06)
[2017-04-12] MEDS: DOCUSATE SODIUM 100 MG CAPSULE (FP) PO SCH ×2 (10:06→21:42)
[2017-04-12] MEDS: POLYETHYLENE GLYCOL 3350 119 GM BTL PO SCH (10:06)
--- NOTE | 2017-04-12 12:26 | PN ---
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 (short form) - Note 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: comfortable still complains of difficulty swallowing gi f/u noted -- egd/ colonoscopy cancelled remains roldan + denies pain Vital Signs Temp 97.9 F 04/12/17 09:00 Pulse 118 H 04/12/17 09:00 Resp 20 04/12/17 09:00 BP 90/50 04/12/17 09:00 Pulse Ox 96 04/12/17 09:00 Intake & Output 04/11/17 04/12/17 04/12/17 23:59 11:59 23:59 Intake Total 440 340 Output Total 300 200 Balance 140 140 Intake: IV 10 saline lock 10 Oral 430 340 Output: Urine 300 200 Void 300 200 Other: Voiding Method Urinal Urinal # Unmeasured Voids Void 1 Active Medications Acetaminophen (Tylenol -) 650 mg PO Q6H PRN PRN Reason: FEVER OR PAIN Apixaban (Eliquis -) 5 mg PO BID [facility] Last Admin: 04/11/17 09:39 Dose: Not Given Atorvastatin Calcium (Lipitor -) 40 mg PO HS [facility] Last Admin: 04/11/17 21:50 Dose: 40 mg Diltiazem HCl (Cardizem Cd -) 120 mg PO DAILY [facility] Last Admin: 04/12/17 10:06 Dose: 120 mg Docusate Sodium (Colace -) 100 mg PO BID [facility] Last Admin: 04/12/17 10:06 Dose: Not Given Gabapentin (Neurontin -) 400 mg PO BID [facility] Last Admin: 04/12/17 10:06 Dose: 400 mg Insulin Aspart (Novolog Vial Sliding Scale -) 1 vial SQ TIDAC [facility] PRN Reason: Protocol Last Admin: 04/12/17 11:46 Dose: Not Given Nystatin (Nystatin Oral Suspension -) 500,000 units PO Q6HPO [facility] Last Admin: 04/12/17 11:48 Dose: 500,000 units Pantoprazole Sodium (Protonix -) 20 mg PO DAILY [facility] Last Admin: 04/12/17 10:06 Dose: 20 mg Polyethylene Glycol (Miralax (For Daily Use) -) 17 gm PO DAILY [facility] Last Admin: 04/12/17 10:06 Dose: Not Given CBC, BMP 04/11/17 06:38 04/11/17 06:38 Microbiology 04/09/17 21:15 Blood Culture - Preliminary Blood - Peripheral Venous NO GROWTH OBTAINED AFTER 48 HOURS, INCUBATION TO CONTINUE FOR 3 DAYS. 04/09/17 21:15 Blood Culture - Preliminary Blood - Peripheral Venous NO GROWTH OBTAINED AFTER 48 HOURS, INCUBATION TO CONTINUE FOR 3 DAYS. 04/08/17 13:10 Blood Culture - Preliminary Blood - Peripheral Venous NO GROWTH OBTAINED AFTER 72 HOURS, INCUBATION TO CONTINUE FOR 2 DAYS. 04/08/17 13:10 Blood Culture - Preliminary Blood - Peripheral Venous NO GROWTH OBTAINED AFTER 72 HOURS, INCUBATION TO CONTINUE FOR 2 DAYS. PHYSICAL EXAM alert, oriented. comfortable [id number] lungs- diminished at bases ABD- Soft, obese, nt LE- no edema A/P Shortness of breath anemia- symptomatic Multiple myeloma AFIB- SR now CAD DIASTOLIC dysfunction elevated troponin--likely stress related Cardiology on the case. anemia work up in progress doubt gi bleed -- guiac -ve sob - likely due to chemo. agree with cancelling colonoscopy egd ? pt has dysphagia will discuss with gi if egd - not planned - will consider upper gi series will follow discussed with family also as well as nursing staff f/u cxr hematology to follow restart on eliquis if no procedure planned . will follow. - Problem List - Problems (1) Anemia Code(s): D64.9 - ANEMIA, UNSPECIFIED Qualifiers: Bone marrow failure anemia type: pancytopenia, antineoplastic chemotherapy- induced (2) SOB (shortness of breath) Code(s): R06.02 - SHORTNESS OF BREATH (3) Atrial fibrillation Code(s): I48.91 - UNSPECIFIED ATRIAL FIBRILLATION Qualifiers: Atrial fibrillation type: paroxysmal Qualified Code(s): I48.0 - Paroxysmal atrial fibrillation (4) Multiple myeloma in remission Code(s): C90.01 - MULTIPLE MYELOMA IN REMISSION
--- NOTE | 2017-04-12 13:15 | PN ---
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, Physician History of Present Illness: Lying in bed, still weak. - Current Medication List Current Medications: Active Medications Acetaminophen (Tylenol -) 650 mg PO Q6H PRN PRN Reason: FEVER OR PAIN Apixaban (Eliquis -) 5 mg PO BID [facility] Last Admin: 04/11/17 09:39 Dose: Not Given Atorvastatin Calcium (Lipitor -) 40 mg PO HS [facility] Last Admin: 04/11/17 21:50 Dose: 40 mg Diltiazem HCl (Cardizem Cd -) 120 mg PO DAILY [facility] Last Admin: 04/12/17 10:06 Dose: 120 mg Docusate Sodium (Colace -) 100 mg PO BID [facility] Last Admin: 04/12/17 10:06 Dose: Not Given Gabapentin (Neurontin -) 400 mg PO BID [facility] Last Admin: 04/12/17 10:06 Dose: 400 mg Insulin Aspart (Novolog Vial Sliding Scale -) 1 vial SQ TIDAC [facility] PRN Reason: Protocol Last Admin: 04/12/17 11:46 Dose: Not Given Nystatin (Nystatin Oral Suspension -) 500,000 units PO Q6HPO [facility] Last Admin: 04/12/17 11:48 Dose: 500,000 units Pantoprazole Sodium (Protonix -) 20 mg PO DAILY [facility] Last Admin: 04/12/17 10:06 Dose: 20 mg Polyethylene Glycol (Miralax (For Daily Use) -) 17 gm PO DAILY [facility] Last Admin: 04/12/17 10:06 Dose: Not Given - Objective Vital Signs: Vital Signs Temperature 97.9 F 04/12/17 09:00 Pulse Rate 118 H 04/12/17 09:00 Respiratory Rate 20 04/12/17 09:00 Blood Pressure 90/50 04/12/17 09:00 O2 Sat by Pulse Oximetry (%) 96 04/12/17 09:00 Constitutional: Yes: No Distress, Calm Neck: Yes: Supple Cardiovascular: Yes: Regular Rate and Rhythm, Tachycardia Respiratory: Yes: Regular, Diminished, On Nasal O2 Gastrointestinal: Yes: Normal Bowel Sounds, Soft, Abdomen, Obese Edema: Yes Edema: LLE: Trace, RLE: Trace Labs: CBC, BMP 04/11/17 06:38 04/11/17 06:38 INR, PTT INR 1.73 (0.82-1.09) H D 04/08/17 13:10 - ....Imaging Cat Scan: Pending EKG: Report Reviewed (Tele: ST 120s) Problem List - Problems (1) SOB (shortness of breath) Code(s): R06.02 - SHORTNESS OF BREATH (2) Atrial fibrillation Code(s): I48.91 - UNSPECIFIED ATRIAL FIBRILLATION Qualifiers: Atrial fibrillation type: paroxysmal Qualified Code(s): I48.0 - Paroxysmal atrial fibrillation (3) Diastolic dysfunction Code(s): I51.9 - HEART DISEASE, UNSPECIFIED (4) Hypokalemia Code(s): E87.6 - HYPOKALEMIA (5) Multiple myeloma in remission Code(s): C90.01 - MULTIPLE MYELOMA IN REMISSION (6) Thrombocytopenia Code(s): D69.6 - THROMBOCYTOPENIA, UNSPECIFIED (7) Anemia Code(s): D64.9 - ANEMIA, UNSPECIFIED Qualifiers: Bone marrow failure anemia type: pancytopenia, antineoplastic chemotherapy- induced (8) Dysphagia Code(s): R13.10 - DYSPHAGIA, UNSPECIFIED Qualifiers: Dysphagia type: other dysphagia Qualified Code(s): R13.19 - Other dysphagia Assessment/Plan Echo: 03/27/2017 Normal biventricular size and fxn, normal biatrial sizes, no sig valve abnl 1. Progressive exertional dyspnea and fatigue referable to 2. Symptomatic anemia post transfusion 3. Possible recurrence of paroxysmal atrial fibrillation with periods of rapid ventricular response now in sinus rhythm [id number] score of 3, currently off Eliquis pre-procedure 4. Coronary artery disease angina pectoris 5. LV diastolic dysfunction, euvolemic 6. Hypertension 7. Type 2 DM 8. Hypercholesterolemia 9. Thrombocytopenia may be referable meds/fatty liver/chemo/> viral 10. History of multiple myeloma post stem cell transplant currently receiving chemotherapy 11. History of peripheral neuropathy 12. Hypokalemia 13. Dysphagia, anorexia PLAN: 1. He was on Eliquis 5 bid with caution considering the above-noted thrombocytopenia 2. Increase Cardizem CD 180 qd as tolerated and Lipitor 40 qd, perl software engineer to assess PAF recurrence 3. Recommend the addition of ACEI or ARBS hemodynamics permitting, potassium repleted 4. May undergo EGD/colonscopy from CV standpoint, holding Eliquis prior to planned procedure, resume once post-procedure hemostasis achieved 5. PT, encourage ambulation, bone marrow biopsy in future, f/u chest CT
--- NOTE | 2017-04-12 14:13 | PN ---
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 (short form) - Note 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: Patient seen and examined appears week at bedside O/E: Constitutional: in NAD Eyes: Yes: Other (glaucoma left eye > right eye -- need for surgery l eye) HENT: No: Nasal Congestion, Thrush, Tonsillar Exudate Neck: No: Lymphadenopathy, Tenderness, Thyromegaly Cardiovascular: Yes: Regular Rate and Rhythm, Murmur Respiratory: Yes: CTA Bilaterally Gastrointestinal: Yes: Normal Bowel Sounds, Soft. No: Hepatomegaly, Splenomegaly, Tenderness Musculoskeletal: Yes: Back Pain Extremities: No: Cold, Cyanosis Edema: No Peripheral Pulses WNL: No Integumentary: No: Bruising, Jaundice Neurological: Yes: Other (peripheral neuropathy) ...Motor Strength: LLE, RLE Psychiatric: Yes: WNL Last Vital Signs Temp Pulse Resp BP Pulse Ox 97.9 F 118 H 20 90/50 96 04/12/17 09:00 04/12/17 09:00 04/12/17 09:00 04/12/17 09:00 04/12/17 09:00 CBC, BMP 04/11/17 06:38 04/11/17 06:38 Current Medications Generic Name Dose Route Start Last Admin Trade Name Freq PRN Reason Stop Dose Admin Acetaminophen 650 mg 04/08/17 19:09 Tylenol - PO Q6H PRN FEVER OR PAIN Apixaban 5 mg 04/08/17 20:00 04/11/17 09:39 Eliquis - PO Not Given BID [facility] Atorvastatin Calcium 40 mg 04/08/17 22:00 04/11/17 21:50 Lipitor - PO 40 mg HS [facility] Administration Diltiazem HCl 180 mg 04/12/17 13:19 Cardizem Cd - PO DAILY [facility] Docusate Sodium 100 mg 04/08/17 22:00 04/12/17 10:06 Colace - PO Not Given BID [facility] Gabapentin 400 mg 04/08/17 22:00 04/12/17 10:06 Neurontin - PO 400 mg BID [facility] Administration Insulin Aspart 1 vial 04/09/17 07:00 04/12/17 11:46 Novolog Vial Sliding Scale - SQ Not Given TIDAC [facility] Protocol Nystatin 500,000 units 04/09/17 18:00 04/12/17 11:48 Nystatin Oral Suspension - PO 500,000 units Q6HPO [facility] Administration Pantoprazole Sodium 20 mg 04/09/17 10:00 04/12/17 10:06 Protonix - PO 20 mg DAILY [facility] Administration Polyethylene Glycol 17 gm 04/09/17 10:00 04/12/17 10:06 Miralax (For Daily Use) - PO Not Given DAILY [facility] Anemia stool occult negative Noted GI note spoke to RN, EGD for tomorrow, who spoke to GI colonoscopy as an OP. Afib Cardiology consult noted rate control , meds adjusted. off of eliquis for procedure SOB ?etiology MM is in Remission ( last myeloma labs from office ) Patient had stem cell transplant in 2013. He has had a clinical remission. In view of cytopenias, chemotherapy has been held now for > 3 weeks. Thrombocytopenia Unclear etiology. Part is drug(chemotherapy related) as it has been a chronic problem. Platelets stable at this time. ?delayed marrow recovery Overall, his cytopenias would need work up, a non-emergent BMB to be planned, and in the interim will need to r/o any dysplastic changes in the peripheral blood, tomorrow will send FISH for MDS and a peripheral blood flow. fuad RN /
--- NOTE | 2017-04-12 21:39 | HOSP ---
Physical Examination Vital Signs: Vital Signs Temperature 99.4 F 04/12/17 18:00 Pulse Rate 109 H 04/12/17 18:00 Respiratory Rate 18 04/12/17 20:15 Blood Pressure 93/57 04/12/17 18:00 O2 Sat by Pulse Oximetry (%) 96 04/12/17 20:15 Labs: CBC, BMP 04/11/17 06:38 04/11/17 06:38 Hospitalist Encounter Assessment: Received TC K 3.3 yesterday am, was not given any potassium since 04/10. Will give 40mg now, then repeat BMP in am.
[2017-04-12] MEDS: ATORVASTATIN CA 40 MG TABLET (FP) PO SCH (21:42)
[2017-04-12] MEDS ORDERED: POTASSIUM CHLORIDE TABS 20 MEQ TABLET.ER (FP) PO ONE (21:45)
[2017-04-12 23:40] LABS: URINE APPEARANCE SLCLOUDY; URINE BILIRUBIN NEGATIVE (NEGATIVE); URINE BLOOD NEGATIVE (NEGATIVE); URINE COLOR AMBER; URINE GLUCOSE (UA) 1+ (NEGATIVE); URINE KETONE TRACE (NEGATIVE); URINE LEUK ESTERASE NEGATIVE (NEGATIVE); URINE NITRITE NEGATIVE (NEGATIVE)
[2017-04-12 23:41] LABS: URINE PROTEIN 1+ (NEGATIVE)
[2017-04-12 23:44] LABS: EPI CELLS RARE /HPF (FEW); GRANULAR CASTS 1 /lpf; URINE HYALINE CAST 1 /lpf; URINE MUCUS FEW
[2017-04-13] MEDS: NYSTATIN 500,000 UNITS/5 ML SUSPENSION PO SCH ×5 (06:05→23:57)
[2017-04-13] MEDS: INSULIN SLIDING SCALE (NOVOLOG) 1 VIAL SQ SCH ×3 (06:06→17:23)
[2017-04-13 07:49] LABS: HEMATOCRIT 30.4 % (35.4-49); HEMOGLOBIN 10.1 GM/dL (11.7-16.9); MCH 33.6 pg (25.7-33.7); MCHC 33.3 g/dl (32.0-35.9); MEAN CELL VOLUME 100.7 fl (80-96); MEAN PLT VOLUME 9.3 fl (7.5-11.1); PLATELET COUNT 133 K/MM3 (134-434); RBC 3.02 M/mm3 (4.00-5.60); RDW 18.5 % (11.9-15.9); WHITE BLOOD COUNT 4.1 K/mm3 (4.0-10.0)
[2017-04-13 07:51] LABS: ANION GAP 9 (8-16); BLOOD UREA NITROGEN 10 mg/dL (7-18); CALCIUM 7.6 mg/dL (8.5-10.1); CHLORIDE 109 mmol/L (98-107); CO2 25 mmol/L (21-32); CREATININE 0.9 mg/dL (0.7-1.3); GLUCOSE,RANDOM 114 mg/dL (74-106); POTASSIUM 3.5 mmol/L (3.5-5.1); SODIUM 143 mmol/L (136-145)
--- NOTE | 2017-04-13 08:11 | PN ---
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 (short form) - Note 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: Chief Complaint: Events noted, notes reviewed, denies any chest pain reports dyspnea wit mild to moderate exertion although severity has decreased History of Present Illness: Seen and examined on telemetry. Events noted, notes reviewed, denies any chest pain reports dyspnea wit mild to moderate exertion although severity has decreased Echocardiography dated 03/26/17 revealed normal LV size and function - Current Medication List Current Medications Acetaminophen (Tylenol -) 650 mg PO Q6H PRN PRN Reason: FEVER OR PAIN Apixaban (Eliquis -) 5 mg PO BID [facility] Last Admin: 04/11/17 09:39 Dose: Not Given Atorvastatin Calcium (Lipitor -) 40 mg PO HS [facility] Last Admin: 04/12/17 21:42 Dose: 40 mg Diltiazem HCl (Cardizem Cd -) 180 mg PO DAILY [facility] Docusate Sodium (Colace -) 100 mg PO BID [facility] Last Admin: 04/12/17 21:42 Dose: 100 mg Gabapentin (Neurontin -) 400 mg PO BID [facility] Last Admin: 04/12/17 21:42 Dose: 400 mg Insulin Aspart (Novolog Vial Sliding Scale -) 1 vial SQ TIDAC [facility] PRN Reason: Protocol Last Admin: 04/13/17 06:06 Dose: Not Given Nystatin (Nystatin Oral Suspension -) 500,000 units PO Q6HPO [facility] Last Admin: 04/13/17 06:05 Dose: Not Given Pantoprazole Sodium (Protonix -) 20 mg PO DAILY [facility] Last Admin: 04/12/17 10:06 Dose: 20 mg Polyethylene Glycol (Miralax (For Daily Use) -) 17 gm PO DAILY [facility] Last Admin: 04/12/17 10:06 Dose: Not Given Review of Systems Constitutional: Denies: Chills or Fever Cardiovascular: As noted above Respiratory: denies: Cough or Sputum Gastrointestinal: Denies: Nausea, Vomiting, Diarrhea, Constipation but reporting Abdominal Pain Genitourinary: No Symptoms Reported Neurology: No seizures or syncope - Objective Vital Signs: Last Vital Signs Temp Pulse Resp BP Pulse Ox 98.5 F 99 H 18 97/62 96 04/13/17 05:19 04/13/17 06:41 04/13/17 06:41 04/13/17 06:41 04/12/17 20:15 Intake & Output 12/04/11/17 04/12/17 04/13/17 23:59 23:59 23:59 23:59 Intake Total 310 740 450 Output Total 300 200 Balance 310 440 250 Constitutional: No Distress, Calm Neck: Supple Negative JVD No bruit Cardiovascular: S1 S2 Regular Rate Rhythm Respiratory: Diminished Breath Sounds at the Bases Gastrointestinal: Soft Benign Normal Bowel Sounds Ext: No Edema Labs: CBC, BMP 04/13/17 06:40 04/13/17 06:40 Assessment/Plan ASSESSMENT: 1. Progressive exertional dyspnea (resolving) and fatigue referable to 2. Symptomatic anemia post transfusion 3. Paroxysmal atrial fibrillation with periods of rapid ventricular response currently in sinus rhythm [id number] score of 3, currently off Eliquis pre- procedure, for EGD 4. Coronary artery disease angina pectoris 5. LV diastolic dysfunction with chronic class 0-I NYHA classification LV failure, compensated/euvolemic 6. Hypertension 7. DM 8. Hypercholesterolemia 9. Thrombocytopenia 10. History of multiple myeloma post stem cell transplant currently receiving chemotherapy 11. History of peripheral neuropathy 12. Dysphagia, etiology to be determined PLAN: 1. Continue to hold Eliquis pending completion of evaluation/procedure 2. Recommend changing Cardizem CD to Lopressor 25 mg twice daily 3. Continue Lipitor 4. Recommend the addition of ACEI or ARBS hemodynamics permitting unless it is absolutely contraindicated 5. There are no absolute contraindications in proceeding with planned GI procedure considering that there is no evidence of ACS and/or de-compensated CHF and/or malignant ventricular arrhythmia, resume post-procedure, provided hemostasis is achieved Tank Munoz M.D.
[2017-04-13] MEDS ORDERED: LIDOCAINE HCL 2% (20ML MULTI-DOSE VIAL) NR ONE (09:13)
[2017-04-13] MEDS ORDERED: PROPOFOL 20 ML ONE (09:14)
--- NOTE | 2017-04-13 09:42 | PROC ---
Endoscopy Procedure Endoscopy procedure completed. Please see scanned procedure report. Mild gastritis in the antrum and the body, otherwise normal EGD. Biopsies taken from proximal small bowel and the stomach. Resume previous diet, medications Follow biopsy results
[2017-04-13] MEDS: METOPROLOL TARTRATE 25 MG TABLET (FP) PO SCH ×2 (09:50→21:57)
[2017-04-13] MEDS: POLYETHYLENE GLYCOL 3350 119 GM BTL PO SCH (09:50)
[2017-04-13] MEDS: DOCUSATE SODIUM 100 MG CAPSULE (FP) PO SCH ×2 (09:50→21:56)
[2017-04-13] MEDS: PANTOPRAZOLE 20 MG TABLET (FP) PO SCH (09:50)
[2017-04-13] MEDS: GABAPENTIN 400 MG CAPSULE (FP) PO SCH ×2 (09:50→21:56)
--- NOTE | 2017-04-13 10:53 | PN ---
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, Physician History of Present Illness: pulmonary alert,nad,s/p egd tolerated procedure well w/o complications,+ mild gastritis - Current Medication List Current Medications: Active Medications Acetaminophen (Tylenol -) 650 mg PO Q6H PRN PRN Reason: FEVER OR PAIN Apixaban (Eliquis -) 5 mg PO BID [facility] Last Admin: 04/11/17 09:39 Dose: Not Given Atorvastatin Calcium (Lipitor -) 40 mg PO HS [facility] Last Admin: 04/12/17 21:42 Dose: 40 mg Docusate Sodium (Colace -) 100 mg PO BID [facility] Last Admin: 04/13/17 09:50 Dose: Not Given Gabapentin (Neurontin -) 400 mg PO BID [facility] Last Admin: 04/13/17 09:50 Dose: Not Given Insulin Aspart (Novolog Vial Sliding Scale -) 1 vial SQ TIDAC [facility] PRN Reason: Protocol Last Admin: 04/13/17 06:06 Dose: Not Given Metoprolol Tartrate (Lopressor -) 25 mg PO BID [facility] Last Admin: 04/13/17 09:50 Dose: Not Given Nystatin (Nystatin Oral Suspension -) 500,000 units PO Q6HPO [facility] Last Admin: 04/13/17 06:05 Dose: Not Given Pantoprazole Sodium (Protonix -) 20 mg PO DAILY [facility] Last Admin: 04/13/17 09:50 Dose: Not Given Polyethylene Glycol (Miralax (For Daily Use) -) 17 gm PO DAILY [facility] Last Admin: 04/13/17 09:50 Dose: Not Given - Objective Vital Signs: Vital Signs Temperature 97.5 F L 04/13/17 09:37 Pulse Rate 104 H 04/13/17 10:18 Respiratory Rate 18 04/13/17 10:18 Blood Pressure 109/72 04/13/17 10:18 O2 Sat by Pulse Oximetry (%) 98 04/13/17 10:18 Constitutional: Yes: Well Nourished, Calm Eyes: Yes: WNL HENT: Yes: WNL Neck: Yes: WNL Cardiovascular: Yes: Regular Rate and Rhythm, S1, S2 Respiratory: Yes: CTA Bilaterally Extremities: Yes: WNL Edema: No Labs: CBC, BMP 04/13/17 06:40 04/13/17 06:40 INR, PTT INR 1.73 (0.82-1.09) H D 04/08/17 13:10 Problem List - Problems (1) Anemia Code(s): D64.9 - ANEMIA, UNSPECIFIED Qualifiers: Bone marrow failure anemia type: pancytopenia, antineoplastic chemotherapy- induced (2) SOB (shortness of breath) Code(s): R06.02 - SHORTNESS OF BREATH (3) Diastolic dysfunction Code(s): I51.9 - HEART DISEASE, UNSPECIFIED (4) Dyspnea Code(s): R06.00 - DYSPNEA, UNSPECIFIED (6) Thrombocytopenia Code(s): D69.6 - THROMBOCYTOPENIA, UNSPECIFIED (7) Atrial fibrillation Code(s): I48.91 - UNSPECIFIED ATRIAL FIBRILLATION Qualifiers: Atrial fibrillation type: paroxysmal Qualified Code(s): I48.0 - Paroxysmal atrial fibrillation Assessment/Plan IMP DYSPNEA IMPROVED SYMPTOMATIC ANEMIA LV DIASTOLIC DYSFUNCTION ASHD PAF MM ANEMIA/THROMBOCYOPENIA HTN NIIDM PERIPHERAL NEUROPATHY PLAN O2 TRANSFUSION NEEDED 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 H+H RATE CONTROL CHEST CT DR SERRANO Problem List - Problems (1) Anemia Code(s): D64.9 - ANEMIA, UNSPECIFIED Qualifiers: Bone marrow failure anemia type: pancytopenia, antineoplastic chemotherapy- induced (2) SOB (shortness of breath) Code(s): R06.02 - SHORTNESS OF BREATH (3) Diastolic dysfunction Code(s): I51.9 - HEART DISEASE, UNSPECIFIED (4) Dyspnea Code(s): R06.00 - DYSPNEA, UNSPECIFIED (6) Thrombocytopenia Code(s): D69.6 - THROMBOCYTOPENIA, UNSPECIFIED (7) Atrial fibrillation Code(s): I48.91 - UNSPECIFIED ATRIAL FIBRILLATION Qualifiers: Atrial fibrillation type: paroxysmal Qualified Code(s): I48.0 - Paroxysmal atrial fibrillation
--- NOTE | 2017-04-13 11:07 | PN ---
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 (short form) - Note 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: status post EGD today Findings noted--- mild gastritis--otherwise okay Patient going for CT scan of the chest Patient continued to feel weak Saturating well but still feels short of breath No distress Vital Signs Temp 97.5 F L 04/13/17 09:37 Pulse 104 H 04/13/17 10:18 Resp 18 04/13/17 10:18 BP 109/72 04/13/17 10:18 Pulse Ox 98 04/13/17 10:18 Intake & Output 04/12/17 04/12/17 04/13/17 11:59 23:59 11:59 Intake Total 340 110 100 Output Total 200 Balance 140 110 100 Intake: IV 10 100 saline lock 10 Oral 340 100 Output: Urine 200 Void 200 Other: Voiding Method Urinal Urinal Urinal # Unmeasured Voids Void 1 1 Active Medications Acetaminophen (Tylenol -) 650 mg PO Q6H PRN PRN Reason: FEVER OR PAIN Apixaban (Eliquis -) 5 mg PO BID [facility] Last Admin: 04/11/17 09:39 Dose: Not Given Atorvastatin Calcium (Lipitor -) 40 mg PO HS [facility] Last Admin: 04/12/17 21:42 Dose: 40 mg Docusate Sodium (Colace -) 100 mg PO BID [facility] Last Admin: 04/13/17 09:50 Dose: Not Given Gabapentin (Neurontin -) 400 mg PO BID [facility] Last Admin: 04/13/17 09:50 Dose: Not Given Insulin Aspart (Novolog Vial Sliding Scale -) 1 vial SQ TIDAC [facility] PRN Reason: Protocol Last Admin: 04/13/17 06:06 Dose: Not Given Metoprolol Tartrate (Lopressor -) 25 mg PO BID [facility] Last Admin: 04/13/17 09:50 Dose: Not Given Nystatin (Nystatin Oral Suspension -) 500,000 units PO Q6HPO [facility] Last Admin: 04/13/17 06:05 Dose: Not Given Pantoprazole Sodium (Protonix -) 20 mg PO DAILY [facility] Last Admin: 04/13/17 09:50 Dose: Not Given Polyethylene Glycol (Miralax (For Daily Use) -) 17 gm PO DAILY [facility] Last Admin: 04/13/17 09:50 Dose: Not Given CBC, BMP 04/13/17 06:40 04/13/17 06:40 PHYSICAL EXAM alert, oriented. comfortable cvs-s1s2 lungs- diminished at bases ABD- Soft, obese, nt LE- no edema A/P Shortness of breath anemia- symptomatic Multiple myeloma AFIB- SR now CAD DIASTOLIC dysfunction CT chest EGD--- mild gastritis Continue present care and restart her eliquis Discussed with pulmonary also May need rehabilitation. Discussed with nursing staff also Will follow Problem List - Problems (1) Anemia Code(s): D64.9 - ANEMIA, UNSPECIFIED Qualifiers: Bone marrow failure anemia type: pancytopenia, antineoplastic chemotherapy- induced (2) SOB (shortness of breath) Code(s): R06.02 - SHORTNESS OF BREATH (3) Atrial fibrillation Code(s): I48.91 - UNSPECIFIED ATRIAL FIBRILLATION Qualifiers: Atrial fibrillation type: paroxysmal Qualified Code(s): I48.0 - Paroxysmal atrial fibrillation (4) Multiple myeloma in remission Code(s): C90.01 - MULTIPLE MYELOMA IN REMISSION
[2017-04-13 11:57] LABS: ANISOCYTOSIS 2+; MACROCYTOSIS 1+; PLATELET ESTIMATE DECREASED; TEAR DROP CELLS 1+
--- NOTE | 2017-04-13 15:55 | PN ---
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 (short form) - Note 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: Last Vital Signs Temp Pulse Resp BP Pulse Ox 98.4 F 108 H 18 96/66 98 04/13/17 14:25 04/13/17 14:25 04/13/17 14:25 04/13/17 14:25 04/13/17 10:18 CBC, BMP 04/13/17 06:40 04/13/17 06:40 Current Medications Generic Name Dose Route Start Last Admin Trade Name Freq PRN Reason Stop Dose Admin Acetaminophen 650 mg 04/08/17 19:09 Tylenol - PO Q6H PRN FEVER OR PAIN Apixaban 5 mg 04/08/17 20:00 04/11/17 09:39 Eliquis - PO Not Given BID [facility] Atorvastatin Calcium 40 mg 04/08/17 22:00 04/12/17 21:42 Lipitor - PO 40 mg HS JAMIE Administration Docusate Sodium 100 mg 04/08/17 22:00 04/13/17 09:50 Colace - PO Not Given BID [facility] Gabapentin 400 mg 04/08/17 22:00 04/13/17 09:50 Neurontin - PO Not Given BID [facility] Insulin Aspart 1 vial 04/09/17 07:00 04/13/17 12:23 Novolog Vial Sliding Scale - SQ Not Given TIDAC [facility] Protocol Metoprolol Tartrate 25 mg 04/13/17 10:00 04/13/17 09:50 Lopressor - PO Not Given BID [facility] Nystatin 500,000 units 04/09/17 18:00 04/13/17 12:00 Nystatin Oral Suspension - PO Not Given Q6HPO [facility] Pantoprazole Sodium 20 mg 04/09/17 10:00 04/13/17 09:50 Protonix - PO Not Given DAILY [facility] Polyethylene Glycol 17 gm 04/09/17 10:00 04/13/17 09:50 Miralax (For Daily Use) - PO Not Given DAILY [facility] ct chest: acute pna id consult Anemia stool occult negative Noted GI note spoke to RN, EGD for tomorrow, who spoke to GI colonoscopy as an OP. Afib Cardiology consult noted rate control , meds adjusted. off of eliquis for procedure SOB ?etiology MM is in Remission ( last myeloma labs from office ) Patient had stem cell transplant in 2013. He has had a clinical remission. In view of cytopenias, chemotherapy has been held now for > 3 weeks. Thrombocytopenia Unclear etiology. Part is drug(chemotherapy related) as it has been a chronic problem. Platelets stable at this time. ?delayed marrow recovery Overall, his cytopenias would need work up, a non-emergent BMB to be planned, and in the interim will need to r/o any dysplastic changes in the peripheral blood
[2017-04-13] MEDS ORDERED: VANCOMYCIN 1,000 MG VIAL (RESTRICTED TO ID ONLY) IVPB ONE (17:01)
[2017-04-13] MEDS ORDERED: PIPERACILLIN/TAZOB 3.375 GM/50 ML PRE-DOCKED IVPB SCH (17:15)
[2017-04-13] MEDS ORDERED: PT OWN MED DRAWER 7, Y5N ONE (17:26)
[2017-04-13] MEDS ORDERED: VANCOMYCIN 1,250 MG in DEXTROSE 5%-WATER - 250 ML IVPB ONE (17:30)
[2017-04-13] MEDS: PIPERACILLIN/TAZOB 3.375 GM 3.375 GM in DEXTROSE 5%-WATER - 100 ML IVPB SCH ×2 (17:46→21:10)
[2017-04-13] MEDS ORDERED: ONDANSETRON 4 MG/2 ML VIAL IVPUSH PRN (18:12)
[2017-04-13] MEDS: ATORVASTATIN CA 40 MG TABLET (FP) PO SCH (21:56)
[2017-04-13] MEDS: APIXABAN 5 MG TABLET PO SCH (22:07)
--- NOTE | 2017-04-13 22:07 | HOSP ---
Subjective - Review of Symptoms Events since last encounter: Hospitalist Encounter Notified by the primary nurse, for a patient of Dr. Kristal Cannon who needs to have an Eliquis order resumed Patient is s/p EGD today. Reviewed Dr. Kristal Cannon's note. Order placed for Eliquis to be restarted tonight. Physical Examination Vital Signs: Vital Signs Temperature 98.6 F 04/13/17 18:00 Pulse Rate 103 H 04/13/17 18:00 Respiratory Rate 19 04/13/17 18:00 Blood Pressure 92/61 04/13/17 18:00 O2 Sat by Pulse Oximetry (%) 98 04/13/17 10:18 Labs: CBC, BMP 04/13/17 06:40 04/13/17 06:40
[2017-04-14] MEDS ORDERED: PIPERACILLIN/TAZOB 3.375 GM 3.375 GM in DEXTROSE 5%-WATER - 50 ML IVPB SCH (02:30)
[2017-04-14] MEDS: INSULIN SLIDING SCALE (NOVOLOG) 1 VIAL SQ SCH ×3 (06:22→17:46)
[2017-04-14] MEDS: NYSTATIN 500,000 UNITS/5 ML SUSPENSION PO SCH ×3 (06:22→18:35)
--- NOTE | 2017-04-14 09:01 | PN ---
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, Physician Chief Complaint: ID Full note dictated Asked to see for new LLL infiltrate. Dyspneic but no fever couph sputum chills History of Stem cell transplant [id number] Gomez - Current Medication List Current Medications: Active Medications Acetaminophen (Tylenol -) 650 mg PO Q6H PRN PRN Reason: FEVER OR PAIN Apixaban (Eliquis -) 5 mg PO BID [facility] Last Admin: 04/13/17 22:07 Dose: 5 mg Atorvastatin Calcium (Lipitor -) 40 mg PO HS [facility] Last Admin: 04/13/17 21:56 Dose: 40 mg Docusate Sodium (Colace -) 100 mg PO BID [facility] Last Admin: 04/13/17 21:56 Dose: 100 mg Gabapentin (Neurontin -) 400 mg PO BID [facility] Last Admin: 04/13/17 21:56 Dose: 400 mg Piperacillin Sod/Tazobactam (Sod 3.375 gm/ Dextrose) 50 mls @ 200 mls/hr IVPB Q6H-IV [facility] Last Admin: 04/14/17 03:02 Dose: 200 mls/hr Insulin Aspart (Novolog Vial Sliding Scale -) 1 vial SQ TIDAC [facility] PRN Reason: Protocol Last Admin: 04/14/17 06:22 Dose: Not Given Metoprolol Tartrate (Lopressor -) 25 mg PO BID [facility] Last Admin: 04/13/17 21:57 Dose: 25 mg Nystatin (Nystatin Oral Suspension -) 500,000 units PO Q6HPO [facility] Last Admin: 04/14/17 06:22 Dose: 500,000 units Ondansetron HCl (Zofran Injection) 4 mg IVPUSH Q6H PRN PRN Reason: NAUSEA AND/OR VOMITING Last Admin: 04/13/17 19:19 Dose: 4 mg Pantoprazole Sodium (Protonix -) 20 mg PO DAILY [facility] Last Admin: 04/13/17 09:50 Dose: Not Given Polyethylene Glycol (Miralax (For Daily Use) -) 17 gm PO DAILY [facility] Last Admin: 04/13/17 09:50 Dose: Not Given - Objective Vital Signs: Vital Signs Temperature 98.1 F 04/14/17 02:00 Pulse Rate 89 04/14/17 02:00 Respiratory Rate 18 04/14/17 02:00 Blood Pressure 90/58 04/14/17 02:00 O2 Sat by Pulse Oximetry (%) 98 04/13/17 21:00 Constitutional: Yes: Mild Distress Cardiovascular: Yes: Regular Rate and Rhythm, S1, S2. No: Murmur Respiratory: Yes: WNL, Regular, CTA Bilaterally, Other (Bibasilar rales) Gastrointestinal: Yes: Soft. 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 (2) Dysphagia Code(s): R13.10 - DYSPHAGIA, UNSPECIFIED Qualifiers: Dysphagia type: other dysphagia Qualified Code(s): R13.19 - Other dysphagia (3) Atrial fibrillation Code(s): I48.91 - UNSPECIFIED ATRIAL FIBRILLATION Qualifiers: Atrial fibrillation type: paroxysmal Qualified Code(s): I48.0 - Paroxysmal atrial fibrillation (4) Pneumonia Code(s): J18.9 - PNEUMONIA, UNSPECIFIED ORGANISM Assessment/Plan Microbiology 04/08/17 13:10 Blood - Peripheral Venous Blood Culture - Final NO GROWTH AFTER 5 DAYS INCUBATION 04/08/17 13:10 Blood - Peripheral Venous Blood Culture - Final NO GROWTH AFTER 5 DAYS INCUBATION 04/09/17 21:15 Blood - Peripheral Venous Blood Culture - Preliminary NO GROWTH OBTAINED AFTER 96 HOURS, INCUBATION TO CONTINUE FOR 1 DAYS. 04/09/17 21:15 Blood - Peripheral Venous Blood Culture - Preliminary NO GROWTH OBTAINED AFTER 96 HOURS, INCUBATION TO CONTINUE FOR 1 DAYS. Laboratory Tests 04/10/17 04/12/17 04/13/17 06:30 23:00 06:40 WBC 4.1 Hgb 10.1 L Hct 30.4 L Plt Count 133 L D Neutrophils % (Manual) 61.5 D Lymphocytes % (Manual) 9.4 D BUN Creatinine Total Bilirubin 0.9 AST 22 Alkaline Phosphatase 72 Urine WBC (Auto) 2 Urine RBC (Auto) 1 04/13/17 06:40 WBC Hgb Hct Plt Count Neutrophils % (Manual) Lymphocytes % (Manual) BUN 10 Creatinine 0.9 Total Bilirubin AST Alkaline Phosphatase Urine WBC (Auto) Urine RBC (Auto) Assessment Stem cell transplant patient history of Multple myeloma 2014 Complains of dysphagia Raiseing the question of aspiration ( in hospital) Certainly not acutely ill Plan Cultures Strep pneumo Ag Continue Zosyn as ordered
--- NOTE | 2017-04-14 09:34 | CONS ---
DATE OF CONSULTATION: DATE OF DICTATION: 04/14/2017 HISTORY OF PRESENT ILLNESS: This is a 71-year-old male with a past history of atrial fibrillation, diabetes, and stem cell transplant for multiple myeloma in 2013, whom I am asked to see for shortness of breath and new acute infiltrate seen on a CT scan of the chest. He was initially admitted with worsening generalized weakness in the absence of any fever, chills, or headaches. He underwent a stem cell transplant in 2013 at [facility] and since that time has been followed by Dr. Gomez who apparently had admitted him because of concerns about anemia. The patient has been complaining of dysphagia while in the hospital. He has been seen by Dr. Winslow for this complaint, and performed an endoscopy yesterday. No complications arose, mild gastritis and a gastric antrum and gastric body were seen with multiple biopsies taken. The esophagus appeared normal. A CT scan of the chest was also ordered yesterday, which was read as showing some atelectasis in the right lower lobe, perhaps chronic, but a patchy infiltrate in the left lower lobe suspicious for pneumonia. The patient has no fevers, chills, or sputum production. He has no history of recent travel. He lives at home with his , has no pets, no unusual hobbies. PAST MEDICAL HISTORY: As noted above. MEDICATIONS AT HOME: Atorvastatin, gabapentin, oxycodone, Eliquis for atrial fibrillation, diltiazem, metoprolol, metformin. ALLERGIES: None known. SOCIAL HISTORY: A former smoker, he gave this up many years ago. No history of alcohol abuse. FAMILY HISTORY: Reviewed and noncontributory. REVIEW OF SYSTEMS: Respiratory: Shortness of breath. No cough, hemoptysis, or sputum production. Cardiac: No chest pain, palpitations. History of atrial fibrillation. Gastrointestinal: Positive dysphagia. No abdominal pain, diarrhea, or vomiting. Genitourinary: No dysuria, hematuria, or urinary frequency. PHYSICAL EXAMINATION: General: He is an alert male in perhaps mild respiratory distress. Vital signs: The temperature was 98, pulse 89, blood pressure 90/58, respirations 18, O2 saturation 98%. Neck: Supple. Lungs: With bibasilar rales. Heart: S1, S2, irregular rhythm, without audible murmur. Abdomen: Soft, nontender, without hepatosplenomegaly. Extremities: Without clubbing, cyanosis, or edema. The white count 4.1, hemoglobin 10.1, platelets 133. BUN 13, creatinine 0.8. Liver enzymes within normal limits. Urinalysis with 2 WBCs, 1 RBC. Two sets of blood cultures pending. Urine culture pending. ASSESSMENT: A 71-year-old male with multiple comorbidities including diabetes, status post stem cell transplant for multiple myeloma 2013, who presents now with a chief complaint of generalized weakness and shortness of breath, also complaint of dysphagia, and the possibility of an aspiration pneumonia is considered as well as a hospital-associated pneumonitis. He has been empirically placed on Zosyn, which I will continue. He does not look toxic at the current time. Hematology is following him from the standpoint of his anemia and stem-cell transplant history, and he is being seen by Cardiology for his history of atrial fibrillation and left ventricular diastolic dysfunction. NATANAEL MIKE M.D. [id number]
--- NOTE | 2017-04-14 11:13 | PN ---
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, Physician History of Present Illness: pulmonary alert,c/o roldan,difficultly holding food down. chest ct bibasilar infiltrates - Current Medication List Current Medications: Active Medications Acetaminophen (Tylenol -) 650 mg PO Q6H PRN PRN Reason: FEVER OR PAIN Apixaban (Eliquis -) [address] [facility] Last Admin: 04/13/17 22:07 Dose: 5 mg Atorvastatin Calcium (Lipitor -) [address] [facility] Last Admin: 04/13/17 21:56 Dose: 40 mg Docusate Sodium (Colace -) [address] [facility] Last Admin: 04/13/17 21:56 Dose: 100 mg Gabapentin (Neurontin -) [address] [facility] Last Admin: 04/13/17 21:56 Dose: 400 mg Piperacillin Sod/Tazobactam (Sod 4.5 gm/ Dextrose) 100 mls @ 200 mls/hr IVPB Q8H-IV [facility] PRN Reason: Protocol Insulin Aspart (Novolog Vial Sliding Scale -) [address] [facility] PRN Reason: Protocol Last Admin: 04/14/17 06:22 Dose: Not Given Metoprolol Tartrate (Lopressor -) [address] [facility] Last Admin: 04/13/17 21:57 Dose: 25 mg Nystatin (Nystatin Oral Suspension -) 500,[address] [facility] Last Admin: 04/14/17 06:22 Dose: 500,000 units Ondansetron HCl (Zofran Injection) 4 mg IVPUSH Q6H PRN PRN Reason: NAUSEA AND/OR VOMITING Last Admin: 04/13/17 19:19 Dose: 4 mg Pantoprazole Sodium (Protonix -) [address] [facility] Last Admin: 04/13/17 09:50 Dose: Not Given Polyethylene Glycol (Miralax (For Daily Use) -) [address] [facility] Last Admin: 04/13/17 09:50 Dose: Not Given - Objective Vital Signs: Vital Signs Temperature 98.1 F 04/14/17 02:00 Pulse Rate 89 04/14/17 02:00 Respiratory Rate 18 04/14/17 02:00 Blood Pressure 90/58 04/14/17 02:00 O2 Sat by Pulse Oximetry (%) 98 04/13/17 21:00 Constitutional: Yes: Well Nourished, Calm Eyes: Yes: WNL HENT: Yes: WNL Neck: Yes: WNL Cardiovascular: Yes: Pulse Irregular, S1, S2 Respiratory: Yes: Rales (few bibasilar crackles) Gastrointestinal: Yes: Normal Bowel Sounds, Soft Extremities: Yes: WNL Edema: No Labs: CBC, BMP 04/13/17 06:40 04/13/17 06:40 INR, PTT INR 1.73 (0.82-1.09) H D 04/08/17 13:10 Problem List - Problems (1) Anemia Code(s): D64.9 - ANEMIA, UNSPECIFIED Qualifiers: Bone marrow failure anemia type: pancytopenia, antineoplastic chemotherapy- induced (2) SOB (shortness of breath) Code(s): R06.02 - SHORTNESS OF BREATH (3) Diastolic dysfunction Code(s): I51.9 - HEART DISEASE, UNSPECIFIED (4) Dyspnea Code(s): R06.00 - DYSPNEA, UNSPECIFIED (6) Thrombocytopenia Code(s): D69.6 - THROMBOCYTOPENIA, UNSPECIFIED (7) Atrial fibrillation Code(s): I48.91 - UNSPECIFIED ATRIAL FIBRILLATION Qualifiers: Atrial fibrillation type: paroxysmal Qualified Code(s): I48.0 - Paroxysmal atrial fibrillation Assessment/Plan IMP DYSPNEA IMPROVING PNEUMONIA SYMPTOMATIC ANEMIA LV DIASTOLIC DYSFUNCTION ASHD PAF MM ANEMIA/THROMBOCYOPENIA HTN NIIDM PERIPHERAL NEUROPATHY PLAN O2 TRANSFUSION NEEDED 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 MONITOR H+H RATE CONTROL ANTIBIOTICS PER SILVANA SERRANO Problem List - Problems (1) Anemia Code(s): D64.9 - ANEMIA, UNSPECIFIED Qualifiers: Bone marrow failure anemia type: pancytopenia, antineoplastic chemotherapy- induced (2) SOB (shortness of breath) Code(s): R06.02 - SHORTNESS OF BREATH (3) Diastolic dysfunction Code(s): I51.9 - HEART DISEASE, UNSPECIFIED (4) Dyspnea Code(s): R06.00 - DYSPNEA, UNSPECIFIED (6) Thrombocytopenia Code(s): D69.6 - THROMBOCYTOPENIA, UNSPECIFIED (7) Atrial fibrillation Code(s): I48.91 - UNSPECIFIED ATRIAL FIBRILLATION Qualifiers: Atrial fibrillation type: paroxysmal Qualified Code(s): I48.0 - Paroxysmal atrial fibrillation
--- NOTE | 2017-04-14 11:21 | PN ---
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 (short form) - Note 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: pt seen/ examined denies cp. breathing ok still complains of difficulty swallowing Vital Signs Temp 98.1 F 04/14/17 02:00 Pulse 89 04/14/17 02:00 Resp 18 04/14/17 02:00 BP 90/58 04/14/17 02:00 Pulse Ox 98 04/13/17 21:00 Intake & Output 04/13/17 04/13/17 04/14/17 11:59 23:59 11:59 Intake Total 100 530 300 Balance 100 530 300 Intake: IV 100 20 saline lock 20 IVPB 450 100 Oral 60 200 Other: Voiding Method Urinal Urinal Urinal # Unmeasured Voids Void 1 Bowel Movement No Yes Active Medications Acetaminophen (Tylenol -) 650 mg PO Q6H PRN PRN Reason: FEVER OR PAIN Apixaban (Eliquis -) 5 mg PO BID [facility] Last Admin: 04/13/17 22:07 Dose: 5 mg Atorvastatin Calcium (Lipitor -) 40 mg PO HS [facility] Last Admin: 04/13/17 21:56 Dose: 40 mg Docusate Sodium (Colace -) 100 mg PO BID [facility] Last Admin: 04/13/17 21:56 Dose: 100 mg Gabapentin (Neurontin -) 400 mg PO BID [facility] Last Admin: 04/13/17 21:56 Dose: 400 mg Piperacillin Sod/Tazobactam (Sod 4.5 gm/ Dextrose) 100 mls @ 200 mls/hr IVPB Q8H-IV [facility] PRN Reason: Protocol Insulin Aspart (Novolog Vial Sliding Scale -) 1 vial SQ TIDAC [facility] PRN Reason: Protocol Last Admin: 04/14/17 06:22 Dose: Not Given Metoprolol Tartrate (Lopressor -) 25 mg PO BID [facility] Last Admin: 04/13/17 21:57 Dose: 25 mg Nystatin (Nystatin Oral Suspension -) 500,000 units PO Q6HPO [facility] Last Admin: 04/14/17 06:22 Dose: 500,000 units Ondansetron HCl (Zofran Injection) 4 mg IVPUSH Q6H PRN PRN Reason: NAUSEA AND/OR VOMITING Last Admin: 04/13/17 19:19 Dose: 4 mg Pantoprazole Sodium (Protonix -) 20 mg PO DAILY [facility] Last Admin: 04/13/17 09:50 Dose: Not Given Polyethylene Glycol (Miralax (For Daily Use) -) 17 gm PO DAILY [facility] Last Admin: 04/13/17 09:50 Dose: Not Given CBC, BMP 04/13/17 06:40 04/13/17 06:40 ct chest - noted- acute left side pneumonia PHYSICAL EXAM alert, oriented. comfortable cvs-s1s2 lungs- diminished at bases ABD- Soft, obese, nt LE- no edema A/P Shortness of breath hospital acquired pneumonia anemia- Multiple myeloma AFIB- SR now CAD DIASTOLIC dysfunction continue abx s/p egd discussed with Dr. Lee also gi to follow will follow Problem List - Problems (1) Anemia Code(s): D64.9 - ANEMIA, UNSPECIFIED Qualifiers: Bone marrow failure anemia type: pancytopenia, antineoplastic chemotherapy- induced (2) SOB (shortness of breath) Code(s): R06.02 - SHORTNESS OF BREATH (3) Atrial fibrillation Code(s): I48.91 - UNSPECIFIED ATRIAL FIBRILLATION Qualifiers: Atrial fibrillation type: paroxysmal Qualified Code(s): I48.0 - Paroxysmal atrial fibrillation (4) Multiple myeloma in remission Code(s): C90.01 - MULTIPLE MYELOMA IN REMISSION
[2017-04-14] MEDS ORDERED: PT OWN MED DRAWER 7, Y5N ONE (11:34)
[2017-04-14] MEDS: APIXABAN 5 MG TABLET PO SCH ×2 (11:39→21:13)
[2017-04-14] MEDS: GABAPENTIN 400 MG CAPSULE (FP) PO SCH ×2 (11:39→21:12)
[2017-04-14] MEDS: DOCUSATE SODIUM 100 MG CAPSULE (FP) PO SCH ×2 (11:39→21:13)
[2017-04-14] MEDS: PANTOPRAZOLE 20 MG TABLET (FP) PO SCH (11:39)
[2017-04-14] MEDS: POLYETHYLENE GLYCOL 3350 119 GM BTL PO SCH (11:39)
[2017-04-14] MEDS: METOPROLOL TARTRATE 25 MG TABLET (FP) PO SCH ×2 (11:39→21:06)
--- NOTE | 2017-04-14 11:43 | PN ---
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, Physician History of Present Illness: Covering Dr. Fuller s/p EGD - gastritis. normal esophagus and small bowel C/o oropharyngeal dysphagia, dry mouth and throat - Current Medication List Current Medications: Active Medications Acetaminophen (Tylenol -) 650 mg PO Q6H PRN PRN Reason: FEVER OR PAIN Apixaban (Eliquis -) 5 mg PO BID [facility] Last Admin: 04/13/17 22:07 Dose: 5 mg Atorvastatin Calcium (Lipitor -) 40 mg PO HS [facility] Last Admin: 04/13/17 21:56 Dose: 40 mg Docusate Sodium (Colace -) 100 mg PO BID [facility] Last Admin: 04/13/17 21:56 Dose: 100 mg Gabapentin (Neurontin -) 400 mg PO BID [facility] Last Admin: 04/13/17 21:56 Dose: 400 mg Piperacillin Sod/Tazobactam (Sod 4.5 gm/ Dextrose) 100 mls @ 200 mls/hr IVPB Q8H-IV [facility] PRN Reason: Protocol Insulin Aspart (Novolog Vial Sliding Scale -) 1 vial SQ TIDAC [facility] PRN Reason: Protocol Last Admin: 04/14/17 06:22 Dose: Not Given Metoprolol Tartrate (Lopressor -) 25 mg PO BID [facility] Last Admin: 04/13/17 21:57 Dose: 25 mg Nystatin (Nystatin Oral Suspension -) 500,000 units PO Q6HPO [facility] Last Admin: 04/14/17 06:22 Dose: 500,000 units Ondansetron HCl (Zofran Injection) 4 mg IVPUSH Q6H PRN PRN Reason: NAUSEA AND/OR VOMITING Last Admin: 04/13/17 19:19 Dose: 4 mg Pantoprazole Sodium (Protonix -) 20 mg PO DAILY [facility] Last Admin: 04/13/17 09:50 Dose: Not Given Polyethylene Glycol (Miralax (For Daily Use) -) 17 gm PO DAILY [facility] Last Admin: 04/13/17 09:50 Dose: Not Given - Objective Vital Signs: Vital Signs Temperature 98.1 F 04/14/17 02:00 Pulse Rate 89 04/14/17 02:00 Respiratory Rate 18 04/14/17 02:00 Blood Pressure 90/58 04/14/17 02:00 O2 Sat by Pulse Oximetry (%) 98 04/13/17 21:00 Constitutional: Yes: No Distress, Calm HENT: Yes: Other (dry) Gastrointestinal: Yes: Normal Bowel Sounds, Soft. No: Melena, Rectal Bleeding, Tenderness, Tenderness, Epigastrium, Tenderness, Rebound, Vomiting Neurological: Yes: Alert, Oriented Labs: CBC, BMP 04/13/17 06:40 04/13/17 06:40 INR, PTT INR 1.73 (0.82-1.09) H D 04/08/17 13:10 Abnormal Lab Results 04/13/17 06:40 Monocytes % (Manual) 20 H* Myelocytes % (Man) 3 H D Problem List - Problems (1) Anemia Code(s): D64.9 - ANEMIA, UNSPECIFIED Qualifiers: Bone marrow failure anemia type: pancytopenia, antineoplastic chemotherapy- induced (2) SOB (shortness of breath) Code(s): R06.02 - SHORTNESS OF BREATH (3) Atrial fibrillation Code(s): I48.91 - UNSPECIFIED ATRIAL FIBRILLATION Qualifiers: Atrial fibrillation type: paroxysmal Qualified Code(s): I48.0 - Paroxysmal atrial fibrillation (4) Multiple myeloma in remission Code(s): C90.01 - MULTIPLE MYELOMA IN REMISSION (5) Dysphagia Code(s): R13.10 - DYSPHAGIA, UNSPECIFIED Assessment/Plan Anemia Gastritis oropharyngeal dysphagia dry mucous membranes Await pathology report soft diet, adequate fluid intake with meals speech and swallow evaluation (Katy Chanel)
[2017-04-14] MEDS: PIPERACILLIN/TAZOB 4.5 GM 4.5 GM in DEXTROSE 5%-WATER - 100 ML IVPB SCH ×2 (11:44→18:36)
--- NOTE | 2017-04-14 12:00 | PATH ---
Surgical Pathology Report Patient Name: CHANTELL CULP [facility]. Rec. #: [id number] /Age/Gender: 1945 (Age: 71) / M Account: [id number] Location: [facility] MED/SURG Taken: 04/13/2017 Received: 04/13/2017 Reported: 04/14/2017 Physicians: Kristal Cannon M.D. Specimen(s) Received A: BX DUODENUM B: BX ANTRUM Clinical History Preoperative diagnosis: Anemia Postoperative diagnosis: Gastritis Final Diagnosis A. DUODENUM, SECOND PORTION, BIOPSY: DUODENAL MUCOSA WITHOUT SIGNIFICANT PATHOLOGIC FINDINGS. B. STOMACH, ANTRUM, BIOPSY: GASTRIC ANTRAL MUCOSA WITH MINIMAL CHRONIC INFLAMMATION. IMMUNOHISTOCHEMICAL STAIN FOR H. PYLORI IS NEGATIVE. Electronically Signed Holly Ortega M.D. Addendum Reported: 04/22/2017 Addendum Diagnosis Part B, Special stain for Congo red performed and interpreted at [place], [place] ([id number]) is negative for amyloid. Test was performed at the request of Dr. Grajeda. Holly Orteag M.D. Gross Description A. Received in formalin, labeled "biopsy second portion of duodenum" are 2 contreras, irregular portions of soft tissue measuring 0.3 and 0.7 cm. in greatest dimension. The specimens are submitted in toto in one cassette. B. Received in formalin, labeled "biopsy antrum" are 2 contreras, irregular portions of soft tissue measuring 0.3 and 0.4 cm. in greatest dimension. The specimens are submitted in toto in one cassette. 04/13/201704/13/2017
--- NOTE | 2017-04-14 13:10 | EKG ---
Test Reason : Blood Pressure : / mmHG Vent. Rate : 104 BPM Atrial Rate : 104 BPM P-R Int : 148 ms QRS Dur : 092 ms QT Int : 340 ms P-R-T Axes : 039 -06 020 degrees QTc Int : 447 ms SINUS TACHYCARDIA INFERIOR INFARCT , AGE UNDETERMINED ABNORMAL ECG WHEN COMPARED WITH ECG OF 08-APR-2017 11:55, NO SIGNIFICANT CHANGE WAS FOUND Confirmed by JUAN AGUIAR MD ([id number]) on 04/14/2017 1:10:25 PM Referred By: Rosa M GRISSOM Confirmed By:JUAN AGUIAR MD
[2017-04-14] MEDS: ATORVASTATIN CA 40 MG TABLET (FP) PO SCH (21:13)
[2017-04-15] MEDS: PIPERACILLIN/TAZOB 4.5 GM 4.5 GM in DEXTROSE 5%-WATER - 100 ML IVPB SCH ×3 (03:15→18:54)
[2017-04-15] MEDS: INSULIN SLIDING SCALE (NOVOLOG) 1 VIAL SQ SCH ×3 (06:05→18:08)
[2017-04-15] MEDS: NYSTATIN 500,000 UNITS/5 ML SUSPENSION PO SCH ×5 (06:08→23:13)
[2017-04-15 07:21] LABS: BASO % 0.4 % (0-2.0); EOS % 1.7 % (0-4.5); HEMATOCRIT 31.1 % (35.4-49); MCH 32.6 pg (25.7-33.7); MCHC 32.3 g/dl (32.0-35.9); NEUT % 64.9 % (42.8-82.8); PLATELET COUNT 136 K/MM3 (134-434); RBC 3.08 M/mm3 (4.00-5.60); RDW 19.2 % (11.9-15.9); WHITE BLOOD COUNT 4.8 K/mm3 (4.0-10.0)
[2017-04-15 07:25] LABS: ALBUMIN 2.1 g/dl (3.4-5.0); ANION GAP 9 (8-16); BILIRUBIN,TOTAL 0.7 mg/dL (0.2-1.0); BLOOD UREA NITROGEN 10 mg/dL (7-18); CALCIUM 7.5 mg/dL (8.5-10.1); CHLORIDE 108 mmol/L (98-107); CO2 26 mmol/L (21-32); CREATININE 1.1 mg/dL (0.7-1.3); GLUCOSE,RANDOM 109 mg/dL (74-106); POTASSIUM 3.3 mmol/L (3.5-5.1); SGOT/AST 34 U/L (15-37); SGPT/ALT 30 U/L (12-78); SODIUM 143 mmol/L (136-145); TOT PROT 4.7 g/dl (6.4-8.2)
[2017-04-15 07:26] LABS: ALK PHOS 91 U/L (45-117)
[2017-04-15] MEDS: DOCUSATE SODIUM 100 MG CAPSULE (FP) PO SCH ×2 (10:26→21:29)
[2017-04-15] MEDS: METOPROLOL TARTRATE 25 MG TABLET (FP) PO SCH ×2 (10:26→21:27)
[2017-04-15] MEDS: POLYETHYLENE GLYCOL 3350 119 GM BTL PO SCH (10:26)
[2017-04-15] MEDS: APIXABAN 5 MG TABLET PO SCH ×2 (10:26→21:28)
[2017-04-15] MEDS: GABAPENTIN 400 MG CAPSULE (FP) PO SCH ×2 (10:26→21:27)
[2017-04-15] MEDS: PANTOPRAZOLE 20 MG TABLET (FP) PO SCH (10:26)
--- NOTE | 2017-04-15 11:00 | PN ---
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 (short form) - Note 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: overall condition same. mils sob -ve cp + difficulty swallowing Vital Signs Temp 97.5 F L 04/15/17 05:43 Pulse 110 H 04/15/17 05:43 Resp 18 04/15/17 05:43 BP 99/61 04/15/17 05:43 Pulse Ox 94 L 04/14/17 21:00 Intake & Output 04/14/17 04/14/17 04/15/17 11:59 23:59 11:59 Intake Total 300 740 200 Balance 300 740 200 Intake: IVPB 100 300 100 Oral 200 440 100 Other: Voiding Method Toilet Toilet # Unmeasured Voids Void 1 Bowel Movement Yes Active Medications Acetaminophen (Tylenol -) 650 mg PO Q6H PRN PRN Reason: FEVER OR PAIN Apixaban (Eliquis -) 5 mg PO BID [facility] Last Admin: 04/15/17 10:26 Dose: 5 mg Atorvastatin Calcium (Lipitor -) 40 mg PO HS [facility] Last Admin: 04/14/17 21:13 Dose: 40 mg Docusate Sodium (Colace -) 100 mg PO BID [facility] Last Admin: 04/15/17 10:26 Dose: Not Given Gabapentin (Neurontin -) 400 mg PO BID [facility] Last Admin: 04/15/17 10:26 Dose: 400 mg Piperacillin Sod/Tazobactam (Sod 4.5 gm/ Dextrose) 100 mls @ 200 mls/hr IVPB Q8H-IV JAMIE PRN Reason: Protocol Last Admin: 04/15/17 10:26 Dose: 200 mls/hr Insulin Aspart (Novolog Vial Sliding Scale -) 1 vial SQ TIDAC [facility] PRN Reason: Protocol Last Admin: 04/15/17 06:05 Dose: Not Given Metoprolol Tartrate (Lopressor -) 25 mg PO BID [facility] Last Admin: 04/15/17 10:26 Dose: 25 mg Nystatin (Nystatin Oral Suspension -) 500,000 units PO Q6HPO [facility] Last Admin: 04/15/17 06:08 Dose: 500,000 units Ondansetron HCl (Zofran Injection) 4 mg IVPUSH Q6H PRN PRN Reason: NAUSEA AND/OR VOMITING Last Admin: 04/13/17 19:19 Dose: 4 mg Pantoprazole Sodium (Protonix -) 20 mg PO DAILY [facility] Last Admin: 04/15/17 10:26 Dose: 20 mg Polyethylene Glycol (Miralax (For Daily Use) -) 17 gm PO DAILY JAMIE Last Admin: 04/15/17 10:26 Dose: Not Given CBC, BMP 04/15/17 05:05 04/15/17 05:05 PHYSICAL EXAM alert, oriented. anxious no distress comfortable cvs-s1s2 lungs- diminished at bases ABD- Soft, obese, nt LE- no edema A/P Shortness of breath hospital acquired pneumonia anemia- Multiple myeloma AFIB- SR now CAD DIASTOLIC dysfunction continue abx s/p egd orophyrangeal dysphagia swallowing eval discussed with nursing staff will follow Problem List - Problems (1) Anemia Code(s): D64.9 - ANEMIA, UNSPECIFIED Qualifiers: Bone marrow failure anemia type: pancytopenia, antineoplastic chemotherapy- induced (2) SOB (shortness of breath) Code(s): R06.02 - SHORTNESS OF BREATH (3) Atrial fibrillation Code(s): I48.91 - UNSPECIFIED ATRIAL FIBRILLATION Qualifiers: Atrial fibrillation type: paroxysmal Qualified Code(s): I48.0 - Paroxysmal atrial fibrillation (4) Multiple myeloma in remission Code(s): C90.01 - MULTIPLE MYELOMA IN REMISSION
--- NOTE | 2017-04-15 11:38 | CONSULT ---
Admitting History and Physical - Primary Care Physician PCP: Kristal Cannon - Admission History of Present Illness: Per EMR: The patient is a 71 year old male, with a significant past medical history of paroxysmal afib (on coumadin), diabetes, multiple myeloma, HTN, ASHD, diastolic dysfunction, hyperlipidemia, anemia, thrombocytopenia, MM s/p SCT on chemo who presents to ER with worsening SOB, generalized weakness and decreased exercise capacity over the past week. s/p EGD - gastritis. normal esophagus and small bowel C/o oropharyngeal dysphagia, dry mouth and throat Selected Entries 04/13/17 04/13/17 04/14/17 12:54 20:09 02:00 Breakfast NPO Lunch 50% Supper 75% Temperature 98.1 F 04/14/17 04/14/17 04/14/17 10:00 12:08 14:00 Breakfast 75% Lunch Supper Temperature 98.1 F 98.2 F 04/14/17 04/14/17 04/14/17 17:00 19:57 21:00 Breakfast Lunch Supper 0 Temperature 98.0 F 98.6 F 04/14/17 04/15/17 04/15/17 22:00 02:00 05:43 Breakfast Lunch Supper Temperature 98.6 F 97.2 F L 97.5 F L Laboratory Tests 04/15/17 05:05 WBC 4.8 Pt c/o food and liquid coming back up/coughing. He reports that this started a month ago. 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 CONSULTANT: Yes: Peripheral Neuropathy Cardiovascular: Yes: HTN Heme/Onc: Yes: Anemia, Other (mulitiple myeloma- s/p stem cell transplant) Musculoskeletal: Yes: Osteoarthritis - Smoking History Smoking history: Unknown if ever smoked Have you smoked in the past 12 months: No If you are a former smoker, when did you quit?: 40yrs - Alcohol/Substance Use Hx Alcohol Use: No History - Admission Reason For Visit: SOB - Diagnostics X-ray: Report Reviewed - General Mental Status: Alert and Oriented, Awake and Alert, Able to Follow Commands Attention: Intact Ability to Follow Directions: Excellent Head/Neck Control: WFL - Hearing Hearing: Normal Speech Evaluation - Communication Primary Language: PAK[place]ANI Communication: Yes: Within Normal Limits - Speech Production Able to Make Needs Known: Yes: WNL Intelligibility: Yes: WNL - Speech Characteristics Voice Loudness: Normal Voice Pitch: Yes: Normal Voice Phonatory-based Quality: Yes: Normal Speech Pattern: Normal Speech Clarity: < 100% Nasal Resonance: Normal Articulation: Yes: Precise - Language/Auditory Comprehension Follows: Yes: 2 Stage Simple Commands - Language/Verbal Expression Able to Respond to Simple Queries: Yes: WNL Able to Communicate Wants and Needs: Yes: WNL Functional Communication Status: Yes: WNL - Swallow Evaluation/Bedside Assessment Current Nutritional Intake: Regular, Thin Liquids, Other (glucerna) Dentition: Yes: Adequate Facial Symmetry at Rest: Symmetrical Lingual Movement: Normal, Symmetric Velopharyngeal Movement: Normal Laryngeal Movement: Reduced Excursion, Labored,delay initiation Bolus Size: Small Labial Seal: WFL Chewing: WFL Oral Prep Time: WFL A-P Transit: WFL Pocketing: None Timing of Swallow: Delayed Coughing/Throat Clear: Yes (Pt c/o food and liquid coming back up/coughing ) Recommendations - Speech Evaluation, Impression/Plan Impression: r/o impaired laryngeal swallow function, impaired laryngeal excursion/relaxation of UES, esophageal? aspiration? Recommendations: MBS w Esophagus
--- NOTE | 2017-04-15 12:06 | PN ---
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 (short form) - Note 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: ID Continues on Zosyn Subjectively better Selected Entries 04/15/17 10:00 Temperature 98 F Pulse Rate 100 H Respiratory 18 Rate Blood Pressure 94/60 Lung Rales at bases Cor S1 S2 RR Abd Soft Ext No edema Microbiology 04/09/17 21:15 Blood - Peripheral Venous Blood Culture - Final NO GROWTH AFTER 5 DAYS INCUBATION 04/09/17 21:15 Blood - Peripheral Venous Blood Culture - Final NO GROWTH AFTER 5 DAYS INCUBATION 04/08/17 13:10 Blood - Peripheral Venous Blood Culture - Final NO GROWTH AFTER 5 DAYS INCUBATION 04/08/17 13:10 Blood - Peripheral Venous Blood Culture - Final NO GROWTH AFTER 5 DAYS INCUBATION 04/13/17 18:00 Blood - Peripheral Venous Blood Culture - Preliminary NO GROWTH OBTAINED AFTER 24 HOURS, INCUBATION TO CONTINUE FOR 4 DAYS. 04/13/17 18:00 Blood - Peripheral Venous Blood Culture - Preliminary NO GROWTH OBTAINED AFTER 24 HOURS, INCUBATION TO CONTINUE FOR 4 DAYS. 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
--- NOTE | 2017-04-15 12:23 | PN ---
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, Physician History of Present Illness: pulmonary alert,sitting up in bed,nad.pt c/o difficulty holding food down - Current Medication List Current Medications: Active Medications Acetaminophen (Tylenol -) 650 mg PO Q6H PRN PRN Reason: FEVER OR PAIN Apixaban (Eliquis -) 5 mg PO BID [facility] Last Admin: 04/15/17 10:26 Dose: 5 mg Atorvastatin Calcium (Lipitor -) 40 mg PO HS [facility] Last Admin: 04/14/17 21:13 Dose: 40 mg Docusate Sodium (Colace -) 100 mg PO BID [facility] Last Admin: 04/15/17 10:26 Dose: Not Given Gabapentin (Neurontin -) 400 mg PO BID [facility] Last Admin: 04/15/17 10:26 Dose: 400 mg Piperacillin Sod/Tazobactam (Sod 4.5 gm/ Dextrose) 100 mls @ 200 mls/hr IVPB Q8H-IV JAMIE PRN Reason: Protocol Last Admin: 04/15/17 10:26 Dose: 200 mls/hr Insulin Aspart (Novolog Vial Sliding Scale -) 1 vial SQ TIDAC JAMIE PRN Reason: Protocol Last Admin: 04/15/17 06:05 Dose: Not Given Metoprolol Tartrate (Lopressor -) 25 mg PO BID [facility] Last Admin: 04/15/17 10:26 Dose: 25 mg Nystatin (Nystatin Oral Suspension -) 500,000 units PO Q6HPO [facility] Last Admin: 04/15/17 06:08 Dose: 500,000 units Ondansetron HCl (Zofran Injection) 4 mg IVPUSH Q6H PRN PRN Reason: NAUSEA AND/OR VOMITING Last Admin: 04/13/17 19:19 Dose: 4 mg Pantoprazole Sodium (Protonix -) 20 mg PO DAILY [facility] Last Admin: 04/15/17 10:26 Dose: 20 mg Polyethylene Glycol (Miralax (For Daily Use) -) 17 gm PO DAILY [facility] Last Admin: 04/15/17 10:26 Dose: Not Given - Objective Vital Signs: Vital Signs Temperature 98 F 04/15/17 10:00 Pulse Rate 100 H 04/15/17 10:00 Respiratory Rate 18 04/15/17 10:00 Blood Pressure 94/60 04/15/17 10:00 O2 Sat by Pulse Oximetry (%) 94 L 04/15/17 09:00 Constitutional: Yes: Well Nourished, Calm Eyes: Yes: WNL HENT: Yes: WNL Neck: Yes: WNL Cardiovascular: Yes: Pulse Irregular, S1, S2 Respiratory: Yes: Rales (helen crackles) Gastrointestinal: Yes: Normal Bowel Sounds, Soft Extremities: Yes: WNL Edema: Yes Labs: CBC, BMP 04/15/17 05:05 04/15/17 05:05 INR, PTT INR 1.73 (0.82-1.09) H D 04/08/17 13:10 Problem List - Problems (1) Anemia Code(s): D64.9 - ANEMIA, UNSPECIFIED Qualifiers: Bone marrow failure anemia type: pancytopenia, antineoplastic chemotherapy- induced (2) SOB (shortness of breath) Code(s): R06.02 - SHORTNESS OF BREATH (3) Diastolic dysfunction Code(s): I51.9 - HEART DISEASE, UNSPECIFIED (4) Dyspnea Code(s): R06.00 - DYSPNEA, UNSPECIFIED (6) Thrombocytopenia Code(s): D69.6 - THROMBOCYTOPENIA, UNSPECIFIED (7) Atrial fibrillation Code(s): I48.91 - UNSPECIFIED ATRIAL FIBRILLATION Qualifiers: Atrial fibrillation type: paroxysmal Qualified Code(s): I48.0 - Paroxysmal atrial fibrillation Assessment/Plan IMP DYSPNEA IMPROVING PNEUMONIA SYMPTOMATIC ANEMIA LV DIASTOLIC DYSFUNCTION ASHD PAF MM ANEMIA/THROMBOCYOPENIA HTN NIIDM PERIPHERAL NEUROPATHY PLAN O2 TRANSFUSION NEEDED KEYSHAWN SARAVIA MONITOR H+H RATE CONTROL ANTIBIOTICS PER SILVANA SERRANO Problem List - Problems (1) Anemia Code(s): D64.9 - ANEMIA, UNSPECIFIED Qualifiers: Bone marrow failure anemia type: pancytopenia, antineoplastic chemotherapy- induced (2) SOB (shortness of breath) Code(s): R06.02 - SHORTNESS OF BREATH (3) Diastolic dysfunction Code(s): I51.9 - HEART DISEASE, UNSPECIFIED (4) Dyspnea Code(s): R06.00 - DYSPNEA, UNSPECIFIED (6) Thrombocytopenia Code(s): D69.6 - THROMBOCYTOPENIA, UNSPECIFIED (7) Atrial fibrillation Code(s): I48.91 - UNSPECIFIED ATRIAL FIBRILLATION Qualifiers: Atrial fibrillation type: paroxysmal Qualified Code(s): I48.0 - Paroxysmal atrial fibrillation
[2017-04-15] MEDS ORDERED: PT OWN MED DRAWER 7, Y5N ONE ×2 (12:24→21:06)
[2017-04-15] MEDS ORDERED: POTASSIUM CHLORIDE TABS 20 MEQ TABLET.ER (FP) PO ONE (12:45)
--- NOTE | 2017-04-15 18:05 | PN ---
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 (short form) - Note 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: Patient seen and examined All consults are noted. Labs reviewed, improving numbers. O/E: Constitutional: in NAD HENT: No: Nasal Congestion, Thrush, Tonsillar Exudate Neck: No: Lymphadenopathy, Tenderness, Thyromegaly Cardiovascular: Yes: Regular Rate and Rhythm, Murmur Respiratory: Yes: CTA Bilaterally Gastrointestinal: Yes: Normal Bowel Sounds, Soft. No: Hepatomegaly, Splenomegaly, Tenderness Musculoskeletal: Yes: Back Pain Extremities: No: Cold, Cyanosis Edema: No Peripheral Pulses WNL: No Last Vital Signs Temp Pulse Resp BP Pulse Ox 98 F 100 H 18 94/60 94 L 04/15/17 10:00 04/15/17 10:00 04/15/17 10:00 04/15/17 10:00 04/15/17 09:00 CBC, BMP 04/15/17 05:05 04/15/17 05:05 Current Medications Generic Name Dose Route Start Last Admin Trade Name Freq PRN Reason Stop Dose Admin Acetaminophen 650 mg 04/08/17 19:09 Tylenol - PO Q6H PRN FEVER OR PAIN Apixaban 5 mg 04/08/17 20:00 04/15/17 10:26 Eliquis - PO 5 mg BID JAMIE Administration Atorvastatin Calcium 40 mg 04/08/17 22:00 04/14/17 21:13 Lipitor - PO 40 mg HS JAMIE Administration Docusate Sodium 100 mg 04/08/17 22:00 04/15/17 10:26 Colace - PO Not Given BID JAMIE Gabapentin 400 mg 04/08/17 22:00 04/15/17 10:26 Neurontin - PO 400 mg BID JAMIE Administration Piperacillin Sod/Tazobactam 100 mls @ 200 mls/hr 04/14/17 10:00 04/15/17 10: 26 Sod 4.5 gm/ Dextrose IVPB 200 mls/hr Q8H-IV JAMIE Administration Protocol Insulin Aspart 1 vial 04/09/17 07:00 04/15/17 12:23 Novolog Vial Sliding Scale - SQ Not Given TIDAC JAMIE Protocol Metoclopramide HCl 10 mg 04/16/17 10:00 Reglan Injection - IVPUSH Q8H-IV JAMIE Metoprolol Tartrate 25 mg 04/13/17 10:00 04/15/17 10:26 Lopressor - PO 25 mg BID JAMIE Administration Nystatin 500,000 units 04/09/17 18:00 04/15/17 12:21 Nystatin Oral Suspension - PO 500,000 units Q6HPO JAMIE Administration Ondansetron HCl 8 mg 04/15/17 18:15 Zofran Injection IVPB BID JAMIE Pantoprazole Sodium 20 mg 04/09/17 10:00 04/15/17 10:26 Protonix - PO 20 mg DAILY JAMIE Administration Polyethylene Glycol 17 gm 04/09/17 10:00 04/15/17 10:26 Miralax (For Daily Use) - PO Not Given DAILY JAMIE Inability to eat / gagging /heaving: GI eval noted Speech Pathology eval noted inability to complete MBSS will f/u on EGD biopsy ??viral eg CMV ( post auto SCT) for now, I have ordered reglan IV pre meal and also zofran q12h standing. encouraged him to eat HpoK Already repleted Anemia improving Afib On eliquis PNA: On zosyn appreciate ID MM is in Remission ( last myeloma labs from office ) Patient had stem cell transplant in 2013. He has had a clinical remission. chemotherapy has been held now for > 3 weeks. Thrombocytopenia most likely from chemo effect, now completely recovered
[2017-04-15] MEDS: ONDANSETRON 4 MG/2 ML VIAL IVPB SCH (18:38)
[2017-04-15] MEDS ORDERED: POTASSIUM CHLORIDE ORAL LIQUID 20 MEQ/15 ML PO ONE (18:44)
[2017-04-15] MEDS: ATORVASTATIN CA 40 MG TABLET (FP) PO SCH (21:28)
[2017-04-16] MEDS: PIPERACILLIN/TAZOB 4.5 GM 4.5 GM in DEXTROSE 5%-WATER - 100 ML IVPB SCH ×3 (02:02→17:59)
[2017-04-16] MEDS: NYSTATIN 500,000 UNITS/5 ML SUSPENSION PO SCH ×3 (06:15→18:01)
[2017-04-16] MEDS: INSULIN SLIDING SCALE (NOVOLOG) 1 VIAL SQ SCH ×3 (06:15→18:01)
[2017-04-16] MEDS ORDERED: METOCLOPRAMIDE HCL INJECTION 10 MG/2 ML VIAL IVPUSH SCH (10:00)
--- NOTE | 2017-04-16 11:37 | PN ---
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 (short form) - Note 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: Patient seen and examined All consults are noted. Labs reviewed, improving numbers. O/E: Constitutional: in NAD HENT: No: Nasal Congestion, Thrush, Tonsillar Exudate Neck: No: Lymphadenopathy, Tenderness, Thyromegaly Cardiovascular: Yes: Regular Rate and Rhythm, Murmur Respiratory: Yes: CTA Bilaterally Gastrointestinal: Yes: Normal Bowel Sounds, Soft. No: Hepatomegaly, Splenomegaly, Tenderness Musculoskeletal: Yes: Back Pain Extremities: No: Cold, Cyanosis Edema: No Peripheral Pulses WNL: No Last Vital Signs Temp Pulse Resp BP Pulse Ox 98.1 F 102 H 20 90/62 98 04/16/17 06:00 04/16/17 06:00 04/16/17 06:00 04/16/17 06:00 04/15/17 21:00 CBC, BMP 04/15/17 05:05 04/15/17 05:05 Current Medications Generic Name Dose Route Start Last Admin Trade Name Freq PRN Reason Stop Dose Admin Acetaminophen 650 mg 04/08/17 19:09 Tylenol - PO Q6H PRN FEVER OR PAIN Apixaban 5 mg 04/08/17 20:00 04/15/17 21:28 Eliquis - PO 5 mg BID JAMIE Administration Atorvastatin Calcium 40 mg 04/08/17 22:00 04/15/17 21:28 Lipitor - PO 40 mg HS JAMIE Administration Docusate Sodium 100 mg 04/08/17 22:00 04/15/17 21:29 Colace - PO Not Given BID JAMIE Gabapentin 400 mg 04/08/17 22:00 04/15/17 21:27 Neurontin - PO 400 mg BID JAMIE Administration Piperacillin Sod/Tazobactam 100 mls @ 200 mls/hr 04/14/17 10:00 04/16/17 02: 02 Sod 4.5 gm/ Dextrose IVPB 200 mls/hr Q8H-IV JAMIE Administration Protocol Insulin Aspart 1 vial 04/09/17 07:00 04/16/17 06:15 Novolog Vial Sliding Scale - SQ Not Given TIDAC [facility] Protocol Metoprolol Tartrate 25 mg 04/13/17 10:00 04/15/17 21:27 Lopressor - PO Not Given BID JAMIE Nystatin 500,000 units 04/09/17 18:00 12/29/17 06:15 Nystatin Oral Suspension - PO Not Given Q6HPO JAMIE Ondansetron HCl 8 mg 04/15/17 18:15 04/15/17 18:38 Zofran Injection IVPB 8 mg BID JAMIE Administration Pantoprazole Sodium 20 mg 04/09/17 10:00 04/15/17 10:26 Protonix - PO 20 mg DAILY JAMIE Administration Polyethylene Glycol 17 gm 04/09/17 10:00 04/15/17 10:26 Miralax (For Daily Use) - PO Not Given DAILY JAMIE Inability to eat / gagging /heaving: able to eat a tad little today zofran IV q12h standing, will change to oral once he has much more pO intake to r/o any other etiology and complete w/u will order CTa/p PNA: On zosyn appreciate ID his SOB did improve MM is in Remission ( last myeloma labs from office ) Patient had stem cell transplant in 2013. He has had a clinical remission. chemotherapy has been held now for > 3 weeks. anemia/Thrombocytopenia much better, platelets normalized likely delayed recovery of marrow Participated in PT today d/w Staff d/w Son labs for am
[2017-04-16] MEDS: DOCUSATE SODIUM 100 MG CAPSULE (FP) PO SCH ×2 (12:12→23:27)
[2017-04-16] MEDS: APIXABAN 5 MG TABLET PO SCH ×2 (12:13→23:27)
[2017-04-16] MEDS: ONDANSETRON 4 MG/2 ML VIAL IVPB SCH ×2 (12:13→23:28)
[2017-04-16] MEDS: PANTOPRAZOLE 20 MG TABLET (FP) PO SCH (12:19)
[2017-04-16] MEDS: METOPROLOL TARTRATE 25 MG TABLET (FP) PO SCH ×2 (12:19→23:28)
[2017-04-16] MEDS: GABAPENTIN 400 MG CAPSULE (FP) PO SCH ×2 (12:20→23:28)
[2017-04-16] MEDS: POLYETHYLENE GLYCOL 3350 119 GM BTL PO SCH (12:20)
--- NOTE | 2017-04-16 13:14 | PN ---
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
--- NOTE | 2017-04-16 13:49 | PN ---
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, Physician History of Present Illness: Covering for Dr. Fuller c/o intermittent gaging and vomiting, which is unrelated to any specific food groups, or consistencies. C/o dry mouth. Path - mild gastritis - Current Medication List Current Medications: Active Medications Acetaminophen (Tylenol -) 650 mg PO Q6H PRN PRN Reason: FEVER OR PAIN Apixaban (Eliquis -) 5 mg PO BID [facility] Last Admin: 04/16/17 12:13 Dose: 5 mg Atorvastatin Calcium (Lipitor -) 40 mg PO HS [facility] Last Admin: 04/15/17 21:28 Dose: 40 mg Docusate Sodium (Colace -) 100 mg PO BID [facility] Last Admin: 04/16/17 12:12 Dose: Not Given Gabapentin (Neurontin -) 400 mg PO BID [facility] Last Admin: 04/16/17 12:20 Dose: 400 mg Piperacillin Sod/Tazobactam (Sod 4.5 gm/ Dextrose) 100 mls @ 200 mls/hr IVPB Q8H-IV JAMIE PRN Reason: Protocol Last Admin: 04/16/17 12:21 Dose: 200 mls/hr Insulin Aspart (Novolog Vial Sliding Scale -) 1 vial SQ TIDAC JAMIE PRN Reason: Protocol Last Admin: 04/16/17 12:25 Dose: Not Given Metoprolol Tartrate (Lopressor -) 25 mg PO BID [facility] Last Admin: 04/16/17 12:19 Dose: 25 mg Nystatin (Nystatin Oral Suspension -) 500,000 units PO Q6HPO [facility] Last Admin: 04/16/17 12:27 Dose: Not Given Ondansetron HCl (Zofran Injection) 8 mg IVPB BID [facility] Last Admin: 04/16/17 12:13 Dose: 8 mg Pantoprazole Sodium (Protonix -) 20 mg PO DAILY [facility] Last Admin: 04/16/17 12:19 Dose: 20 mg Polyethylene Glycol (Miralax (For Daily Use) -) 17 gm PO DAILY [facility] Last Admin: 04/16/17 12:20 Dose: Not Given - Objective Vital Signs: Vital Signs Temperature 98.1 F 04/16/17 06:00 Pulse Rate 102 H 04/16/17 06:00 Respiratory Rate 20 04/16/17 06:00 Blood Pressure 90/62 04/16/17 06:00 O2 Sat by Pulse Oximetry (%) 98 04/15/17 21:00 Constitutional: Yes: No Distress, Calm Eyes: Yes: Conjunctiva Clear HENT: Yes: Atraumatic Neck: Yes: Supple Cardiovascular: Yes: Regular Rate and Rhythm Respiratory: Yes: Regular Gastrointestinal: Yes: Soft. No: Tenderness Neurological: Yes: Alert, Oriented Labs: CBC, BMP 04/15/17 05:05 04/15/17 05:05 INR, PTT INR 1.73 (0.82-1.09) H D 04/08/17 13:10 Laboratory Results - last 24 hr 04/15/17 04/15/17 04/16/17 18:07 21:25 06:14 POC Glucometer 109 179 112 04/16/17 11:53 POC Glucometer 129 - ....Imaging Other: Report Reviewed (speech and swallow noted) Problem List - Problems (1) Anemia Code(s): D64.9 - ANEMIA, UNSPECIFIED Qualifiers: Bone marrow failure anemia type: pancytopenia, antineoplastic chemotherapy- induced (2) SOB (shortness of breath) Code(s): R06.02 - SHORTNESS OF BREATH (3) Atrial fibrillation Code(s): I48.91 - UNSPECIFIED ATRIAL FIBRILLATION Qualifiers: Atrial fibrillation type: paroxysmal Qualified Code(s): I48.0 - Paroxysmal atrial fibrillation (4) Multiple myeloma in remission Code(s): C90.01 - MULTIPLE MYELOMA IN REMISSION (5) Dysphagia Code(s): R13.10 - DYSPHAGIA, UNSPECIFIED Assessment/Plan Unclear etiology of intermittent gaging and vomiting. No gross, or microscopic findings on EGD to explain this. Remote possibility of esophageal dysmotility exists and can be evaluated with esophageal manometry on OP bases. This was discussed with the patient. Dry mouth, oropharynx, can contribute to the above symptoms. Path results reviewed. Mild gastritis. Soft diet, adequate fluid intake with meals. Antiemetics PRN Esophageal motility studies as OP
--- NOTE | 2017-04-16 14:54 | PN ---
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, Physician Chief Complaint: ID Looks very comfortable no couph Chiquita - Current Medication List Current Medications: Active Medications Acetaminophen (Tylenol -) 650 mg PO Q6H PRN PRN Reason: FEVER OR PAIN Apixaban (Eliquis -) 5 mg PO BID [facility] Last Admin: 04/16/17 12:13 Dose: 5 mg Atorvastatin Calcium (Lipitor -) 40 mg PO HS [facility] Last Admin: 04/15/17 21:28 Dose: 40 mg Docusate Sodium (Colace -) 100 mg PO BID [facility] Last Admin: 04/16/17 12:12 Dose: Not Given Gabapentin (Neurontin -) 400 mg PO BID [facility] Last Admin: 04/16/17 12:20 Dose: 400 mg Piperacillin Sod/Tazobactam (Sod 4.5 gm/ Dextrose) 100 mls @ 200 mls/hr IVPB Q8H-IV [facility] PRN Reason: Protocol Last Admin: 04/16/17 12:21 Dose: 200 mls/hr Insulin Aspart (Novolog Vial Sliding Scale -) 1 vial SQ TIDAC [facility] PRN Reason: Protocol Last Admin: 04/16/17 12:25 Dose: Not Given Metoprolol Tartrate (Lopressor -) 25 mg PO BID [facility] Last Admin: 04/16/17 12:19 Dose: 25 mg Nystatin (Nystatin Oral Suspension -) 500,000 units PO Q6HPO [facility] Last Admin: 04/16/17 12:27 Dose: Not Given Ondansetron HCl (Zofran Injection) 8 mg IVPB BID [facility] Last Admin: 04/16/17 12:13 Dose: 8 mg Pantoprazole Sodium (Protonix -) 20 mg PO DAILY [facility] Last Admin: 04/16/17 12:19 Dose: 20 mg Polyethylene Glycol (Miralax (For Daily Use) -) 17 gm PO DAILY [facility] Last Admin: 04/16/17 12:20 Dose: Not Given - Objective Vital Signs: Vital Signs Temperature 97.6 F 04/16/17 14:00 Pulse Rate 87 04/16/17 14:00 Respiratory Rate 20 04/16/17 14:00 Blood Pressure 94/62 04/16/17 14:00 O2 Sat by Pulse Oximetry (%) 98 04/15/17 21:00 Constitutional: Yes: Well Nourished, No Distress Neck: Yes: WNL, Supple Cardiovascular: Yes: S1, S2 Respiratory: Yes: WNL, Regular, CTA Bilaterally, Rales Gastrointestinal: Yes: WNL, Normal Bowel Sounds. 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 (2) Dysphagia Code(s): R13.10 - DYSPHAGIA, UNSPECIFIED Qualifiers: Dysphagia type: other dysphagia Qualified Code(s): R13.19 - Other dysphagia (3) Atrial fibrillation Code(s): I48.91 - UNSPECIFIED ATRIAL FIBRILLATION Qualifiers: Atrial fibrillation type: paroxysmal Qualified Code(s): I48.0 - Paroxysmal atrial fibrillation (4) Pneumonia Code(s): J18.9 - PNEUMONIA, UNSPECIFIED ORGANISM Assessment/Plan Microbiology 04/11/17 23:00 Urine - Urine Clean Catch Urine Culture - Final Enterococcus Faecalis 04/09/17 21:15 Blood - Peripheral Venous Blood Culture - Final NO GROWTH AFTER 5 DAYS INCUBATION 04/09/17 21:15 Blood - Peripheral Venous Blood Culture - Final NO GROWTH AFTER 5 DAYS INCUBATION 04/08/17 13:10 Blood - Peripheral Venous Blood Culture - Final NO GROWTH AFTER 5 DAYS INCUBATION 04/08/17 13:10 Blood - Peripheral Venous Blood Culture - Final NO GROWTH AFTER 5 DAYS INCUBATION 04/13/17 18:00 Blood - Peripheral Venous Blood Culture - Preliminary NO GROWTH OBTAINED AFTER 48 HOURS, INCUBATION TO CONTINUE FOR 3 DAYS. 04/13/17 18:00 Blood - Peripheral Venous Blood Culture - Preliminary NO GROWTH OBTAINED AFTER 48 HOURS, INCUBATION TO CONTINUE FOR 3 DAYS. Laboratory Tests 04/15/17 04/15/17 05:05 05:05 WBC 4.8 Hgb 10.0 L Hct 31.1 L Plt Count 136 BUN 10 Creatinine 1.1 D Assessment Treatment for " acute pneumonia" but currently not acutely ill Stem cell transplant in past Plan Consider switch to po antibiotic in next 24 hours Jacki Lassiter MD
[2017-04-16] MEDS ORDERED: PT OWN MED DRAWER 7, Y5N ONE (17:36)
--- NOTE | 2017-04-16 17:49 | PN ---
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 (short form) - Note 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: looks better today ate little better all f/u noted ct abd/ pelvis ordered by Dr. Jc afebrile Vital Signs Temp 97.6 F 04/16/17 14:00 Pulse 87 04/16/17 14:00 Resp 20 04/16/17 14:00 BP 94/62 04/16/17 14:00 Pulse Ox 98 04/15/17 21:00 Intake & Output 04/15/17 04/16/17 04/16/17 23:59 11:59 23:59 Intake Total 100 Balance 100 Intake: IVPB 100 Other: Voiding Method Toilet Urinal # Unmeasured Voids Void 2 1 Bowel Movement Yes No Yes: 2 Active Medications Acetaminophen (Tylenol -) 650 mg PO Q6H PRN PRN Reason: FEVER OR PAIN Apixaban (Eliquis -) 5 mg PO BID [facility] Last Admin: 04/16/17 12:13 Dose: 5 mg Atorvastatin Calcium (Lipitor -) 40 mg PO HS [facility] Last Admin: 04/15/17 21:28 Dose: 40 mg Docusate Sodium (Colace -) 100 mg PO BID [facility] Last Admin: 04/16/17 12:12 Dose: Not Given Gabapentin (Neurontin -) 400 mg PO BID [facility] Last Admin: 04/16/17 12:20 Dose: 400 mg Piperacillin Sod/Tazobactam (Sod 4.5 gm/ Dextrose) 100 mls @ 200 mls/hr IVPB Q8H-IV [facility] PRN Reason: Protocol Last Admin: 04/16/17 12:21 Dose: 200 mls/hr Insulin Aspart (Novolog Vial Sliding Scale -) 1 vial SQ TIDAC [facility] PRN Reason: Protocol Last Admin: 04/16/17 12:25 Dose: Not Given Metoprolol Tartrate (Lopressor -) 25 mg PO BID [facility] Last Admin: 04/16/17 12:19 Dose: 25 mg Nystatin (Nystatin Oral Suspension -) 500,000 units PO Q6HPO [facility] Last Admin: 04/16/17 12:27 Dose: Not Given Ondansetron HCl (Zofran Injection) 8 mg IVPB BID [facility] Last Admin: 04/16/17 12:13 Dose: 8 mg Pantoprazole Sodium (Protonix -) 20 mg PO DAILY [facility] Last Admin: 04/16/17 12:19 Dose: 20 mg Polyethylene Glycol (Miralax (For Daily Use) -) 17 gm PO DAILY [facility] Last Admin: 04/16/17 12:20 Dose: Not Given CBC, BMP 04/15/17 05:05 04/15/17 05:05 PHYSICAL EXAM alert, oriented. better no distress comfortable cvs-s1s2 lungs- diminished at bases ABD- Soft, obese, nt LE- no edema A/P Shortness of breath hospital acquired pneumonia anemia- Multiple myeloma AFIB- SR now CAD DIASTOLIC dysfunction continue abx-- may switch to po in am s/p egd orophyrangeal dysphagia swallowing eval- noted discussed with nursing staff ct scan f/u labs discharge planning. Problem List - Problems (1) Anemia Code(s): D64.9 - ANEMIA, UNSPECIFIED Qualifiers: Bone marrow failure anemia type: pancytopenia, antineoplastic chemotherapy- induced (2) SOB (shortness of breath) Code(s): R06.02 - SHORTNESS OF BREATH (3) Atrial fibrillation Code(s): I48.91 - UNSPECIFIED ATRIAL FIBRILLATION Qualifiers: Atrial fibrillation type: paroxysmal Qualified Code(s): I48.0 - Paroxysmal atrial fibrillation (4) Multiple myeloma in remission Code(s): C90.01 - MULTIPLE MYELOMA IN REMISSION
[2017-04-16] MEDS: ATORVASTATIN CA 40 MG TABLET (FP) PO SCH (23:28)
[2017-04-17] MEDS: PIPERACILLIN/TAZOB 4.5 GM 4.5 GM in DEXTROSE 5%-WATER - 100 ML IVPB SCH ×3 (01:13→17:07)
[2017-04-17] MEDS: NYSTATIN 500,000 UNITS/5 ML SUSPENSION PO SCH ×5 (01:13→23:08)
[2017-04-17] MEDS: INSULIN SLIDING SCALE (NOVOLOG) 1 VIAL SQ SCH ×3 (06:20→16:38)
[2017-04-17 07:56] LABS: HEMATOCRIT 30.6 % (35.4-49); HEMOGLOBIN 9.8 GM/dL (11.7-16.9); MCH 32.5 pg (25.7-33.7); MCHC 32.2 g/dl (32.0-35.9); MEAN PLT VOLUME 8.6 fl (7.5-11.1); PLATELET COUNT 150 K/MM3 (134-434); RBC 3.02 M/mm3 (4.00-5.60); RDW 18.9 % (11.9-15.9); WHITE BLOOD COUNT 4.3 K/mm3 (4.0-10.0)
[2017-04-17 08:13] LABS: ALBUMIN 2.1 g/dl (3.4-5.0); ANION GAP 11 (8-16); BLOOD UREA NITROGEN 9 mg/dL (7-18); CALCIUM 7.8 mg/dL (8.5-10.1); CHLORIDE 108 mmol/L (98-107); CO2 26 mmol/L (21-32); GLUCOSE,RANDOM 90 mg/dL (74-106); POTASSIUM 3.6 mmol/L (3.5-5.1); SGOT/AST 26 U/L (15-37); SGPT/ALT 24 U/L (12-78); SODIUM 145 mmol/L (136-145)
[2017-04-17 08:15] LABS: ALK PHOS 89 U/L (45-117); BILIRUBIN,TOTAL 0.7 mg/dL (0.2-1.0); TOT PROT 4.8 g/dl (6.4-8.2)
[2017-04-17] MEDS ORDERED: INSULIN (NOVOLOG) ASPART 100 UNITS/ML 10ML VIAL ONE (09:02)
[2017-04-17] MEDS ORDERED: PT OWN MED DRAWER 7, Y5N ONE ×2 (09:03→20:27)
[2017-04-17] MEDS: GABAPENTIN 400 MG CAPSULE (FP) PO SCH ×2 (09:05→21:26)
[2017-04-17] MEDS: PANTOPRAZOLE 20 MG TABLET (FP) PO SCH (09:05)
[2017-04-17] MEDS: APIXABAN 5 MG TABLET PO SCH ×2 (09:05→21:26)
[2017-04-17] MEDS: POLYETHYLENE GLYCOL 3350 119 GM BTL PO SCH (09:06)
[2017-04-17] MEDS: DOCUSATE SODIUM 100 MG CAPSULE (FP) PO SCH ×2 (09:06→21:26)
[2017-04-17] MEDS: METOPROLOL TARTRATE 25 MG TABLET (FP) PO SCH ×2 (09:06→21:24)
--- NOTE | 2017-04-17 09:52 | PN ---
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 (short form) - Note 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: PULMONARY VSS/AFEBRILE AWAKE/ALERT CHART REVIEWED APPEARS STABLE LABS/MEDS/NOTES/IMAGES REVIEWED MBS NOTED NO ASPIRATION IMP PNEUMONIA/UTI MM S/P STEM CELL TRANSPLANT ANEMIA LV DIASTOLIC DYSFUNCTION ASHD PAF ON ELIQUIS HTN NIIDM PERIPHERAL NEUROPATHY PLAN ANTIBIOTICS PER ID TO BE CHANGED TO ORAL ROUTE Bonnie OJEDA MD
[2017-04-17] MEDS: ONDANSETRON 4 MG/2 ML VIAL IVPB SCH ×2 (11:26→21:27)
--- NOTE | 2017-04-17 12:41 | PN ---
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 (short form) - Note 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: Patient seen and examined Ate breakfast O/E: Constitutional: in NAD HENT: No: Nasal Congestion, Thrush, Tonsillar Exudate Neck: No: Lymphadenopathy, Tenderness, Thyromegaly Cardiovascular: Yes: Regular Rate and Rhythm, Murmur Respiratory: Yes: CTA Bilaterally Gastrointestinal: Yes: Normal Bowel Sounds, Soft. No: Hepatomegaly, Splenomegaly, Tenderness Musculoskeletal: Yes: Back Pain Extremities: No: Cold, Cyanosis Edema: No Peripheral Pulses WNL: No Last Vital Signs Temp Pulse Resp BP Pulse Ox 97.9 F 99 H 20 97/56 95 04/17/17 09:00 04/17/17 09:00 04/17/17 09:00 04/17/17 09:00 04/17/17 09:00 CBC, BMP 04/17/17 06:00 04/17/17 06:00 Current Medications Generic Name Dose Route Start Last Admin Trade Name Freq PRN Reason Stop Dose Admin Acetaminophen 650 mg 04/08/17 19:09 Tylenol - PO Q6H PRN FEVER OR PAIN Apixaban 5 mg 04/08/17 20:00 04/17/17 09:05 Eliquis - PO 5 mg BID [facility] Administration Atorvastatin Calcium 40 mg 04/08/17 22:00 04/16/17 23:28 Lipitor - PO 40 mg HS [facility] Administration Docusate Sodium 100 mg 04/08/17 22:00 04/17/17 09:06 Colace - PO Not Given BID [facility] Gabapentin 400 mg 04/08/17 22:00 04/17/17 09:05 Neurontin - PO 400 mg BID [facility] Administration Piperacillin Sod/Tazobactam 100 mls @ 200 mls/hr 04/14/17 10:00 04/17/17 09: 05 Sod 4.5 gm/ Dextrose IVPB 200 mls/hr Q8H-IV [facility] Administration Protocol Insulin Aspart 1 vial 04/09/17 07:00 04/17/17 11:10 Novolog Vial Sliding Scale - SQ Not Given TIDAC [facility] Protocol Metoprolol Tartrate 25 mg 04/13/17 10:00 04/17/17 09:06 Lopressor - PO Not Given BID [facility] Nystatin 500,000 units 04/09/17 18:00 04/17/17 11:25 Nystatin Oral Suspension - PO Not Given Q6HPO [facility] Ondansetron HCl 8 mg 04/15/17 18:15 04/17/17 11:26 Zofran Injection IVPB 8 mg BID [facility] Administration Pantoprazole Sodium 20 mg 04/09/17 10:00 04/17/17 09:05 Protonix - PO 20 mg DAILY [facility] Administration Polyethylene Glycol 17 gm 04/09/17 10:00 04/17/17 09:06 Miralax (For Daily Use) - PO Not Given DAILY [facility] Inability to eat / gagging /heaving: extensive w/u GI/EGD/MBSS/CT a/p was done , no etiology found GI note reviewed, OP Esophageal manometry CT a/p benign zofran 8mg PO q12H ( likely may benefit in the OP too) PNA: on PO abx from today MM is in Remission ( last myeloma labs from office ) Patient had stem cell transplant in 2013. He has had a clinical remission. chemotherapy has been held now for > 3 weeks. anemia/Thrombocytopenia much better, platelets normalized likely delayed recovery of marrow Dispo. Home with services noted. f/u in office.
--- NOTE | 2017-04-17 13:10 | PN ---
GI 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 Subjective: GI NOte: Dr. Winslow's coverage is appreciated. Michael's proximal dysphagia persists. He has no problems with liquids. MBS and EGD findings are noted. He does note problems with mastication and describes sicca syndrome. This may be playing a role. He also reports having a headache - Objective Vital Signs: Vital Signs Temperature 97.9 F 04/17/17 09:00 Pulse Rate 99 H 04/17/17 09:00 Respiratory Rate 20 04/17/17 09:00 Blood Pressure 97/56 04/17/17 09:00 O2 Sat by Pulse Oximetry (%) 95 04/17/17 09:00 CBC,CMP WBC 4.3 K/mm3 (4.0-10.0) 04/17/17 06:00 RBC 3.02 M/mm3 (4.00-5.60) L 04/17/17 06:00 Hgb 9.8 GM/dL (11.7-16.9) L 04/17/17 06:00 Hct 30.6 % (35.4-49) L 04/17/17 06:00 MCV 101.0 fl (80-96) H 04/17/17 06:00 MCH 32.5 pg (25.7-33.7) 04/17/17 06:00 MCHC 32.2 g/dl (32.0-35.9) 04/17/17 06:00 RDW 18.9 % (11.9-15.9) H 04/17/17 06:00 Plt Count 150 K/MM3 (134-434) 04/17/17 06:00 MPV 8.6 fl (7.5-11.1) 04/17/17 06:00 Band Neut # 3.4 % (42.8-82.8) L 04/08/17 13:10 Lymph # (Auto) 0.7 % (8-40) L 04/08/17 13:10 [place] # (Auto) 0.9 % (3.8-10.2) L 04/08/17 13:10 Eos # (Auto) 0.1 % (0-4.5) 04/08/17 13:10 Absolute Neuts (auto) 2.3 # (42.8-82.8) L 04/09/17 05:05 Absolute Lymphs (auto) 0.7 (8-40) L 04/09/17 05:05 Absolute Monos (auto) 0.7 # (3.8-10.2) L 04/09/17 05:05 Absolute Eos (auto) 0.1 # (0-4.5) 04/09/17 05:05 Absolute Basos (auto) 0.0 # (0.1-1) L 04/09/17 05:05 Total Counted 100 04/10/17 06:30 Neutrophils % No Result Required. 04/17/17 06:00 Neutrophils % (Manual) 61.5 % (42.8-82.8) D 04/13/17 06:40 Band Neutrophils % 1.0 % 04/13/17 06:40 Lymphocytes % No Result Required. 04/17/17 06:00 Lymphocytes % (Manual) 9.4 % (8-40) D 04/13/17 06:40 Monocytes % 14.0 % (3.8-10.2) H 04/15/17 05:05 Monocytes % (Manual) 20 % (3.8-10.2) H* 04/13/17 06:40 Eosinophils % 1.7 % (0-4.5) 04/15/17 05:05 Eosinophils % (Manual) 0.0 % (0-4.5) D 04/13/17 06:40 Basophils % 0.4 % (0-2.0) 04/15/17 05:05 Basophils % (Manual) 0.0 % (0-2.0) 04/13/17 06:40 Myelocytes % (Man) 3 % (0-2) H D 04/13/17 06:40 Metamyelocytes 2 % (0-2) 04/13/17 06:40 Hypochromia 0 04/09/17 05:05 Platelet Estimate Decreased 04/13/17 06:40 Polychromasia 1+ 04/09/17 05:05 Poikilocytosis 2+ 04/09/17 05:05 Anisocytosis 2+ 04/13/17 06:40 Microcytosis 1+ 04/13/17 06:40 Macrocytosis 1+ 04/13/17 06:40 Tear Drop Cells 1+ 04/13/17 06:40 Fragmented RBCs 1+ 04/13/17 06:40 Retic Count 3.07 % (0.5-1.5) H 04/11/17 06:38 Haptoglobin 255 mg/dL (34-200) H 04/10/17 06:30 Sodium 145 mmol/L (136-145) 04/17/17 06:00 Potassium 3.6 mmol/L (3.5-5.1) 04/17/17 06:00 Chloride 108 mmol/L (98-107) H 04/17/17 06:00 Carbon Dioxide 26 mmol/L (21-32) 04/17/17 06:00 Anion Gap 11 (8-16) 04/17/17 06:00 BUN 9 mg/dL (7-18) 04/17/17 06:00 Creatinine 1.0 mg/dL (0.7-1.3) 04/17/17 06:00 Creat Clearance w eGFR > 60 (>60) 04/17/17 06:00 POC Glucometer 148 UNITS (80-120) 04/17/17 11:08 Random Glucose 90 mg/dL (74-106) 04/17/17 06:00 Hemoglobin A1c % 8.4 % (4.8-6.0) H D 04/09/17 05:05 Lactic Acid 2.0 mmol/L (0.4-2.0) 04/08/17 13:10 Uric Acid 5.8 mg/dL (2.6-7.2) D 04/10/17 06:30 Calcium 7.8 mg/dL (8.5-10.1) L 04/17/17 06:00 Total Bilirubin 0.7 mg/dL (0.2-1.0) 04/17/17 06:00 AST 26 U/L (15-37) D 04/17/17 06:00 ALT 24 U/L (12-78) 04/17/17 06:00 Alkaline Phosphatase 89 U/L (45-117) 04/17/17 06:00 LD Total 399 U/L (87-241) H D 04/10/17 06:30 Creatine Kinase 70 IU/L (39-308) 04/09/17 05:05 Troponin I 0.06 ng/ml (0.00-0.05) H D 04/09/17 05:05 B-Natriuretic Peptide 161.18 pg/ml (5-125) H 04/08/17 13:10 Total Protein 4.8 g/dl (6.4-8.2) L 04/17/17 06:00 Albumin 2.1 g/dl (3.4-5.0) L 04/17/17 06:00 Triglycerides 143 mg/dL (35-160) 04/09/17 05:05 Cholesterol 107 mg/dL (50-200) 04/09/17 05:05 Total LDL Cholesterol 63 mg/dL (5-100) 04/09/17 05:05 HDL Cholesterol 28 mg/dL (40-60) L 04/09/17 05:05 Current Medications Generic Name Dose Route Start Last Admin Trade Name Freq PRN Reason Stop Dose Admin Acetaminophen 650 mg 04/08/17 19:09 Tylenol - PO Q6H PRN FEVER OR PAIN Apixaban 5 mg 04/08/17 20:00 04/17/17 09:05 Eliquis - PO 5 mg BID [facility] Administration Atorvastatin Calcium 40 mg 04/08/17 22:00 04/16/17 23:28 Lipitor - PO 40 mg HS [facility] Administration Docusate Sodium 100 mg 04/08/17 22:00 04/17/17 09:06 Colace - PO Not Given BID [facility] Gabapentin 400 mg 04/08/17 22:00 04/17/17 09:05 Neurontin - PO 400 mg BID [facility] Administration Piperacillin Sod/Tazobactam 100 mls @ 200 mls/hr 04/14/17 10:00 04/17/17 09: 05 Sod 4.5 gm/ Dextrose IVPB 200 mls/hr Q8H-IV [facility] Administration Protocol Insulin Aspart 1 vial 04/09/17 07:00 04/17/17 11:10 Novolog Vial Sliding Scale - SQ Not Given TIDAC [facility] Protocol Metoprolol Tartrate 25 mg 04/13/17 10:00 04/17/17 09:06 Lopressor - PO Not Given BID [facility] Nystatin 500,000 units 04/09/17 18:00 04/17/17 11:25 Nystatin Oral Suspension - PO Not Given Q6HPO [facility] Ondansetron HCl 8 mg 04/15/17 18:15 04/17/17 11:26 Zofran Injection IVPB 8 mg BID [facility] Administration Pantoprazole Sodium 20 mg 04/09/17 10:00 04/17/17 09:05 Protonix - PO 20 mg DAILY [facility] Administration Polyethylene Glycol 17 gm 04/09/17 10:00 04/17/17 09:06 Miralax (For Daily Use) - PO Not Given DAILY [facility] Constitutional: No Distress ...Auscultate: Yes: Normoactive Bowel Sounds ...Palpate: Yes: Soft, Other (nontender) Labs: CBC, BMP 04/17/17 06:00 04/17/17 06:00 INR, PTT INR 1.73 (0.82-1.09) H D 04/08/17 13:10 Assessment/Plan CT of the head and neck Esophagram ENT consult Colonoscopy as outpatient Problem List - Problems (1) Dysphagia Assessment/Plan: The etiology is not clear and he senses aspiration which was not evident on the MBS. I will therefore order a brain and neck CT to look for a neurological or local process. I have also advised Dr Cannon to obtain a ENT consultation. Will get a distal esophagram as well to exclude achalasia Code(s): R13.10 - DYSPHAGIA, UNSPECIFIED Qualifiers: Dysphagia type: other dysphagia Qualified Code(s): R13.19 - Other dysphagia (2) Anemia Assessment/Plan: I discussed the case with Dr. Jc who informs me that Michael's myeloma is in remission and that his chemotherapy was being held to allow his bone marrow to recover. The MM does not readily account for such a rapid Hb drop so I have advised Michael followup as an outpatient to arrange a colonoscopy. Code(s): D64.9 - ANEMIA, UNSPECIFIED Qualifiers: Bone marrow failure anemia type: pancytopenia, antineoplastic chemotherapy- induced
--- NOTE | 2017-04-17 13:14 | PN ---
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 (short form) - Note 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: pt seen/ examined c/c - still difficulty swallowing swallowing to liquids is ok Vital Signs Temp 97.9 F 04/17/17 09:00 Pulse 99 H 04/17/17 09:00 Resp 20 04/17/17 09:00 BP 97/56 04/17/17 09:00 Pulse Ox 95 04/17/17 09:00 Intake & Output 04/16/17 04/17/17 04/17/17 23:59 11:59 23:59 Intake Total 50 200 Balance 50 200 Intake: IVPB 200 Oral 50 Other: Voiding Method Urinal Urinal Bowel Movement Yes: 2 Active Medications Acetaminophen (Tylenol -) 650 mg PO Q6H PRN PRN Reason: FEVER OR PAIN Apixaban (Eliquis -) 5 mg PO BID [facility] Last Admin: 04/17/17 09:05 Dose: 5 mg Atorvastatin Calcium (Lipitor -) 40 mg PO HS [facility] Last Admin: 04/16/17 23:28 Dose: 40 mg Docusate Sodium (Colace -) 100 mg PO BID [facility] Last Admin: 04/17/17 09:06 Dose: Not Given Gabapentin (Neurontin -) 400 mg PO BID [facility] Last Admin: 04/17/17 09:05 Dose: 400 mg Piperacillin Sod/Tazobactam (Sod 4.5 gm/ Dextrose) 100 mls @ 200 mls/hr IVPB Q8H-IV [facility] PRN Reason: Protocol Last Admin: 04/17/17 09:05 Dose: 200 mls/hr Insulin Aspart (Novolog Vial Sliding Scale -) 1 vial SQ TIDAC [facility] PRN Reason: Protocol Last Admin: 04/17/17 11:10 Dose: Not Given Metoprolol Tartrate (Lopressor -) 25 mg PO BID [facility] Last Admin: 04/17/17 09:06 Dose: Not Given Nystatin (Nystatin Oral Suspension -) 500,000 units PO Q6HPO [facility] Last Admin: 04/17/17 11:25 Dose: Not Given Ondansetron HCl (Zofran Injection) 8 mg IVPB BID [facility] Last Admin: 04/17/17 11:26 Dose: 8 mg Pantoprazole Sodium (Protonix -) 20 mg PO DAILY [facility] Last Admin: 04/17/17 09:05 Dose: 20 mg Polyethylene Glycol (Miralax (For Daily Use) -) 17 gm PO DAILY [facility] Last Admin: 04/17/17 09:06 Dose: Not Given CBC, BMP 04/17/17 06:00 04/17/17 06:00 abd - ct scan- noted PHYSICAL EXAM alert, oriented. no distress comfortable cvs-s1s2 lungs- diminished at bases ABD- Soft, obese, nt LE- no edema A/P dysphagia-- orophyrangeal s/p egd discussed with Dr. Fuller today as well as Dr. Grajeda will consult ent ct neck otherwise stable await above before discharge will follow. Problem List - Problems (1) Anemia Code(s): D64.9 - ANEMIA, UNSPECIFIED Qualifiers: Qualified Code(s): D61.810 - Antineoplastic chemotherapy induced pancytopenia ; T45.1X5A - Adverse effect of antineoplastic and immunosuppressive drugs, initial encounter; T45.1X5A - Adverse effect of antineoplastic and immunosuppressive drugs, initial encounter (2) SOB (shortness of breath) Code(s): R06.02 - SHORTNESS OF BREATH (3) Atrial fibrillation Code(s): I48.91 - UNSPECIFIED ATRIAL FIBRILLATION Qualifiers: Qualified Code(s): I48.0 - Paroxysmal atrial fibrillation (4) Multiple myeloma in remission Code(s): C90.01 - MULTIPLE MYELOMA IN REMISSION
[2017-04-17 15:00] LABS: PLATELET ESTIMATE ADEQUATE
[2017-04-17 15:01] LABS: ANISOCYTOSIS 1+; MACROCYTOSIS 1+; SMUDGE CELLS FEW; TEAR DROP CELLS 1+
[2017-04-17] MEDS: ATORVASTATIN CA 40 MG TABLET (FP) PO SCH (21:26)
[2017-04-18] MEDS ORDERED: PT OWN MED DRAWER 7, Y5N ONE ×2 (01:35→22:58)
[2017-04-18] MEDS: PIPERACILLIN/TAZOB 4.5 GM 4.5 GM in DEXTROSE 5%-WATER - 100 ML IVPB SCH ×3 (01:53→17:11)
[2017-04-18] MEDS: NYSTATIN 500,000 UNITS/5 ML SUSPENSION PO SCH ×4 (05:19→23:08)
[2017-04-18] MEDS: INSULIN SLIDING SCALE (NOVOLOG) 1 VIAL SQ SCH ×3 (06:30→16:33)
[2017-04-18] MEDS: PANTOPRAZOLE 20 MG TABLET (FP) PO SCH (09:14)
[2017-04-18] MEDS: ONDANSETRON 4 MG/2 ML VIAL IVPB SCH (09:14)
[2017-04-18] MEDS: DOCUSATE SODIUM 100 MG CAPSULE (FP) PO SCH ×2 (09:14→23:08)
[2017-04-18] MEDS: APIXABAN 5 MG TABLET PO SCH ×2 (09:14→23:07)
[2017-04-18] MEDS: GABAPENTIN 400 MG CAPSULE (FP) PO SCH ×2 (09:14→23:07)
[2017-04-18] MEDS: METOPROLOL TARTRATE 25 MG TABLET (FP) PO SCH ×2 (09:14→23:07)
[2017-04-18] MEDS: POLYETHYLENE GLYCOL 3350 119 GM BTL PO SCH (09:15)
--- NOTE | 2017-04-18 10:10 | PN ---
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 (short form) - Note 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: Chief Complaint: Events noted, notes reviewed, denies any chest pain but continues to report dyspnea with mild to moderate exertion although severity has decreased, complaining of nausea History of Present Illness: Seen and examined. Events noted, notes reviewed, denies any chest pain but continues to report dyspnea with mild to moderate exertion although severity has decreased, complaining of nausea Echocardiography dated 03/26/17 revealed normal LV size and function - Current Medication List Current Medications Acetaminophen (Tylenol -) 650 mg PO Q6H PRN PRN Reason: FEVER OR PAIN Apixaban (Eliquis -) 5 mg PO BID [facility] Last Admin: 04/18/17 09:14 Dose: 5 mg Atorvastatin Calcium (Lipitor -) 40 mg PO HS [facility] Last Admin: 04/17/17 21:26 Dose: 40 mg Docusate Sodium (Colace -) 100 mg PO BID [facility] Last Admin: 04/18/17 09:14 Dose: Not Given Gabapentin (Neurontin -) 400 mg PO BID [facility] Last Admin: 04/18/17 09:14 Dose: 400 mg Piperacillin Sod/Tazobactam (Sod 4.5 gm/ Dextrose) 100 mls @ 200 mls/hr IVPB Q8H-IV [facility] PRN Reason: Protocol Last Admin: 04/18/17 09:14 Dose: 200 mls/hr Insulin Aspart (Novolog Vial Sliding Scale -) 1 vial SQ TIDAC [facility] PRN Reason: Protocol Last Admin: 04/18/17 06:30 Dose: Not Given Metoprolol Tartrate (Lopressor -) 25 mg PO BID [facility] Last Admin: 04/18/17 09:14 Dose: Not Given Nystatin (Nystatin Oral Suspension -) 500,000 units PO Q6HPO [facility] Last Admin: 04/18/17 05:19 Dose: Not Given Ondansetron HCl (Zofran Injection) 8 mg IVPB BID [facility] Last Admin: 04/18/17 09:14 Dose: 8 mg Pantoprazole Sodium (Protonix -) 20 mg PO DAILY [facility] Last Admin: 04/18/17 09:14 Dose: 20 mg Polyethylene Glycol (Miralax (For Daily Use) -) 17 gm PO DAILY [facility] Last Admin: 04/18/17 09:15 Dose: Not Given Review of Systems Constitutional: Denies: Chills or Fever Cardiovascular: As noted above Respiratory: denies: Cough or Sputum Gastrointestinal: Denies: Vomiting, Diarrhea, Constipation or Abdominal Pain but reports Nausea Genitourinary: No Symptoms Reported Neurology: No seizures or syncope - Objective Vital Signs: Last Vital Signs Temp Pulse Resp BP Pulse Ox 99.1 F 107 H 20 92/60 97 04/18/17 05:57 04/18/17 05:57 04/18/17 05:57 04/18/17 05:57 04/17/17 21:22 Intake & Output 04/15/17 04/16/17 04/17/17 04/18/17 23:59 23:59 23:59 23:59 Intake Total 976 122 4978 150 Balance 333 045 8439 150 Constitutional: No Distress, Calm Neck: Supple Negative JVD No bruit Cardiovascular: S1 S2 Regular Rate Rhythm Respiratory: Diminished Breath Sounds at the Bases Gastrointestinal: Soft Benign Normal Bowel Sounds Ext: No Edema Labs: CBC, BMP 04/17/17 06:00 04/17/17 06:00 Assessment/Plan ASSESSMENT: 1. Progressive exertional dyspnea (resolving) and fatigue referable to 2. Symptomatic anemia post transfusion 3. Paroxysmal atrial fibrillation with periods of rapid ventricular response currently in sinus rhythm [id number] score of 3, on A/C with NOAC's/Eliquis 4. Coronary artery disease angina pectoris 5. LV diastolic dysfunction with chronic class 0-I NYHA classification LV failure, compensated/euvolemic 6. Hypertension 7. DM 8. Hypercholesterolemia 9. Thrombocytopenia, resolved 10. History of multiple myeloma post stem cell transplant 11. History of peripheral neuropathy 12. Dysphagia, etiology to be determined evaluation in progress PLAN: 1. Continue Eliquis with caution and close monitoring of CBC 2. Continue Lopressor hemodynamics permitting 3. Continue Lipitor 4. Recommend the addition of ACEI or ARBS hemodynamics permitting unless it is absolutely contraindicated 5. Dysphagia evaluation as planned Tank Munoz M.D.
--- NOTE | 2017-04-18 11:11 | PN ---
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 (short form) - Note 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: PULMONARY VSS/AFEBRILE AWAKE/ALERT CHART REVIEWED APPEARS STABLE NONPRODUCTIVE COUGH PALE/ANICTERIC DIMINISHED B/L BREATH SOUNDS S1S2 OBESE NO EDEMA LABS/MEDS/NOTES/IMAGES REVIEWED MBS NOTED NO ASPIRATION IMP PNEUMONIA/UTI MM S/P STEM CELL TRANSPLANT ANEMIA DYSPHAGIA LV DIASTOLIC DYSFUNCTION ASHD PAF ON ELIQUIS HTN NIIDM PERIPHERAL NEUROPATHY PLAN ANTIBIOTICS PER ID TO BE CHANGED TO ORAL ROUTE GI WORKUP FOR DYSPHAGIA UNDERWAY Bonnie OJEDA MD
--- NOTE | 2017-04-18 12:44 | CON.ENT ---
Consult Consult Specialty:: ENT Referred by:: Dr Cannon Reason for Consultation:: Dysphagia - History of Present Illness Chief Complaint: Trouble swallowing History of Present Illness: 71 yo male with 1 month hx of trouble swallowing, nausea, feels food wont go down and doesn' t want to eat. He denies any throat pain, hoarseness, globus sensation, throat mucus or clearing. 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: Peripheral Neuropathy Cardio/Vascular: Yes: HTN Musculoskeletal: Yes: Osteoarthritis Additional Medical History: glaucoma with decreased vision and need for surgeryleft eye - Alcohol/Substance Use Hx Alcohol Use: No - Smoking History Smoking history: Unknown if ever smoked Have you smoked in the past 12 months: No If you are a former smoker, when did you quit?: 40yrs - Social History Usual Living Arrangement: With Spouse Home Medications - Allergies Allergies/Adverse Reactions: Allergies Allergy/AdvReac Type Severity Reaction Status Date / Time No Known Allergies Allergy Verified 04/08/17 11:08 - Home Medications Home Medications: Ambulatory Orders Atorvastatin Ca [Lipitor] 40 mg PO HS 10/04/16 Gabapentin 400 mg PO BID 10/04/16 Oxycodone Sr [Oxycontin] 10 mg PO Q6H PRN 10/04/16 Apixaban [Eliquis -] 5 mg PO BID 30 Days #60 tablet 03/27/17 Diltiazem Cd [Cardizem Cd -] 120 mg PO DAILY #30 cap.cd.24h 03/27/17 Metoprolol Tartrate [Lopressor -] 50 mg PO BID #90 tablet 03/27/17 Metformin HCl [Glucophage -] 500 mg PO DAILY #30 tablet 03/28/17 Review of Systems - Review of Systems Constitutional: reports: Loss of Appetite HENT: reports: Difficult Swallowing Gastrointestinal: reports: Nausea Physical Exam-ENT Vital Signs: Vital Signs Temperature 98.6 F 04/18/17 09:00 Pulse Rate 106 H 04/18/17 09:00 Respiratory Rate 20 04/18/17 09:00 Blood Pressure 101/58 04/18/17 09:00 O2 Sat by Pulse Oximetry (%) 95 04/18/17 09:00 Constitutional: Yes: No Distress Head: Yes: WNL Face: Yes: Normal Salivary Glands Eyes: Yes: WNL Nose: Yes: WNL Nasal Passage: Yes: Other (dry, crusted due to nasal O2) Oral/Pharynx: Yes: Other (dry mucosa) Ear Canal: Yes: WNL Tympanic Membrane: Yes: WNL Neck: Yes: WNL, Supple Neurological: Yes: Cran Nerves II-XII Intact Imaging - Results Cat Scan: Report Reviewed, Image Reviewed Problem List - Problems (1) Dysphagia Assessment/Plan: PT with 1 month hx of dyshpagia and nausea- no pathology noted on fiberoptic laryngoscopy. Pt also with normal swallowing study. Code(s): R13.10 - DYSPHAGIA, UNSPECIFIED Qualifiers: Dysphagia type: other dysphagia Qualified Code(s): R13.19 - Other dysphagia Procedure Note Procedure: Fiberoptic Laryngoscopy- after obtaiting informed consent, topical anestetic/ decongestant was sprayed. Scope was passed thru the left nostril. No evidence of sinusitis. Nasopharynx clear. Normal oropharynx, hypopharnx and larynx. No lesions, edema or erythema noted. Normal VC mobility.
--- NOTE | 2017-04-18 13:54 | DS ---
Physical Examination Vital Signs: Vital Signs Temperature 99.7 F H 04/18/17 13:33 Pulse Rate 111 H 04/18/17 13:33 Respiratory Rate 20 04/18/17 13:33 Blood Pressure 111/59 04/18/17 13:33 O2 Sat by Pulse Oximetry (%) 95 04/18/17 09:00 Findings/Remarks: looks ok still complains of difficulty swallowing all work up -ve ct neck - pending report ent consult noted / appreciated--exam ok Constitutional: Yes: No Distress, Calm Eyes: Yes: Conjunctiva Clear HENT: Yes: Other (thrat - clear) Neck: Yes: Supple Respiratory: Yes: CTA Bilaterally Gastrointestinal: Yes: Normal Bowel Sounds, Soft Edema: No Neurological: Yes: Alert Labs: CBC, BMP 04/17/17 06:00 04/17/17 06:00 Discharge Summary Reason For Visit: SOB Current Active Problems Anemia (Acute) Dysphagia (Acute) Dysphagia (Acute) Limbal stem cell transplant failure (Acute) Pneumonia (Acute) SOB (shortness of breath) (Acute) Hospital Course: "The patient is a 71 year old male, with a significant past medical history of afib (on coumadin), diabetes, multiple myeloma, HTN, DL and osteoarthritis of knees who presents to ER with worsening SOB. The patient has also complaints of progressively worsening generalized weakness. This has been progressing over the past week. Denies CP. Patient notes being weak and being physically exhausted while taking off his clothes. He denies any recent fevers, chills, headache or dizziness. He denies any recent nausea, vomit, diarrhea or constipation. He denies any recent chest pain. He denies any recent dysuria, frequency, urgency or hematuria. Denies new leg swelling, no recent travel. Pt was sent in by Dr. Gomez out of concern that pt may be anemic. pt admitted to hospital pt not actively bleeding pt seen by gi egd done for dysphagia- mild gastritis swallowing eval also done- ok seen by ent - exam ok ct head -ve ct neck - pending pt also treated for pneumonia with abx pt followed by hematology/ i/d , gi as well as cardiology ct abd was also done found to have myeloma in remission pt cleared for discharge by all discussed with pt / in detail agree with plan but requests ambulette to go home due to arthritis knees - has steps will ask telephonic nurse case manager to follow pt also need to follow with his pmd/ specialists as advised gi advised to have colonoscopy as out pt if arrangements are made - then he will be discharge today - otherwise tomorrow d/c time 35 min in examining/ documenting and coordating care. Condition: Stable - Instructions Referrals: Avtar Melchor MD [Primary Care Provider] - Disposition: VNS/HOME HEALTH CARE - Home Medications Comprehensive Discharge Medication List: Ambulatory Orders Atorvastatin Ca [Lipitor] 40 mg PO HS 10/04/16 Gabapentin 400 mg PO BID 10/04/16 Oxycodone Sr [Oxycontin] 10 mg PO Q6H PRN 10/04/16 Apixaban [Eliquis -] 5 mg PO BID 30 Days #60 tablet 03/27/17 Diltiazem Cd [Cardizem Cd -] 120 mg PO DAILY #30 cap.cd.24h 03/27/17 Metoprolol Tartrate [Lopressor -] 50 mg PO BID #90 tablet 03/27/17 Metformin HCl [Glucophage -] 500 mg PO DAILY #30 tablet 03/28/17 Acetaminophen [Tylenol .Regular Strength -] 650 mg PO Q6H PRN tablet 04/18/17 Amoxicillin/Potassium Clav [Augmentin 875-125 Tablet] 1 each PO BID #10 tablet MDD 2 04/18/17 Docusate Sodium [Colace -] 100 mg PO BID capsule 04/18/17 Pantoprazole Sodium [Protonix -] 20 mg PO DAILY tablet.ec 04/18/17 Polyethylene Glycol 3350 [Miralax 119 gm Btl -] 17 gm PO DAILY bottle 04/18/17
--- NOTE | 2017-04-18 14:06 | PN ---
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 (short form) - Note 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: discussed with Dr. Fuller will give trial of reglan will hold discharge today discussed with nursing staff/ pt / Problem List - Problems (1) Anemia Code(s): D64.9 - ANEMIA, UNSPECIFIED Qualifiers: Bone marrow failure anemia type: pancytopenia, antineoplastic chemotherapy- induced (2) SOB (shortness of breath) Code(s): R06.02 - SHORTNESS OF BREATH (3) Atrial fibrillation Code(s): I48.91 - UNSPECIFIED ATRIAL FIBRILLATION Qualifiers: Atrial fibrillation type: paroxysmal Qualified Code(s): I48.0 - Paroxysmal atrial fibrillation (4) Multiple myeloma in remission Code(s): C90.01 - MULTIPLE MYELOMA IN REMISSION
--- NOTE | 2017-04-18 14:41 | PN ---
GI 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 Subjective: GI NOte: Today the nausea and dysphagia are keeping Michael form eating. ENT evaluation discussed with Dr Wells. NO findings. No brain tumor on CT. Await neck CT reading. Had procedure to grind down molars for capping earlier this year as he could not have tooth extractions. He was swallowing well following that procedure and does not feel it is related to current problems. - Objective Vital Signs: Vital Signs Temperature 99.7 F H 04/18/17 13:33 Pulse Rate 111 H 04/18/17 13:33 Respiratory Rate 20 04/18/17 13:33 Blood Pressure 111/59 04/18/17 13:33 O2 Sat by Pulse Oximetry (%) 95 04/18/17 09:00 Constitutional: Anxious ...Auscultate: Yes: Normoactive Bowel Sounds ...Palpate: Yes: Soft, Other (nontender) Labs: CBC, BMP 04/17/17 06:00 04/17/17 06:00 INR, PTT INR 1.73 (0.82-1.09) H D 04/08/17 13:10 Assessment/Plan Trial of Reglan - discussed with Dr Cannon Colonoscopy as outpatient Problem List - Problems (1) Dysphagia Assessment/Plan: The etiology is not clear. Await distal esophagram as well to exclude achalasia. Will start empiric trial of Reglan Code(s): R13.10 - DYSPHAGIA, UNSPECIFIED Qualifiers: Dysphagia type: other dysphagia Qualified Code(s): R13.19 - Other dysphagia (2) Anemia Code(s): D64.9 - ANEMIA, UNSPECIFIED Qualifiers: Bone marrow failure anemia type: pancytopenia, antineoplastic chemotherapy- induced
[2017-04-18] MEDS ORDERED: METOCLOPRAMIDE HCL INJECTION 10 MG/2 ML VIAL IVPUSH SCH (14:45)
[2017-04-18] MEDS: METOCLOPRAMIDE HCL INJECTION 10 MG/2 ML VIAL IVPUSH SCH (15:14)
[2017-04-18] MEDS: ACETAMINOPHEN 325 MG TABLET (FP) PO PRN (17:11)
[2017-04-18] MEDS ORDERED: VANCOMYCIN 1,000 MG in DEXTROSE 5%-WATER - 250 ML IVPB ONE (18:45)
[2017-04-18] MEDS ORDERED: VANCOMYCIN 1,250 MG in DEXTROSE 5%-WATER - 250 ML IVPB ONE (21:30)
[2017-04-18] MEDS ORDERED: SODIUM CHLORIDE 1,000 ML IV SCH (21:45)
[2017-04-18 22:18] LABS: URINE APPEARANCE CLEAR; URINE BILIRUBIN NEGATIVE (NEGATIVE); URINE BLOOD NEGATIVE (NEGATIVE); URINE COLOR YELLOW; URINE GLUCOSE (UA) NEGATIVE (NEGATIVE); URINE KETONE TRACE (NEGATIVE); URINE LEUK ESTERASE NEGATIVE (NEGATIVE); URINE NITRITE NEGATIVE (NEGATIVE); URINE UROBILINOGEN NEGATIVE mg/dL (0.2-1.0)
[2017-04-18 22:29] LABS: URINE PROTEIN 1+ (NEGATIVE)
[2017-04-18 22:31] LABS: EPI CELLS RARE /HPF (FEW); URINE BACTERIA RARE /hpf (NONE SEEN); URINE MUCUS RARE
[2017-04-18] MEDS: ATORVASTATIN CA 40 MG TABLET (FP) PO SCH (23:07)
[2017-04-19] MEDS: METOCLOPRAMIDE HCL INJECTION 10 MG/2 ML VIAL IVPUSH SCH ×5 (00:19→20:28)
[2017-04-19] MEDS: ONDANSETRON 4 MG/2 ML VIAL IVPB SCH ×3 (01:02→22:28)
[2017-04-19] MEDS: CEFEPIME 2 GM/100 ML BAG PRE-DOCKED IVPB SCH ×4 (02:08→20:07)
[2017-04-19] MEDS: NYSTATIN 500,000 UNITS/5 ML SUSPENSION PO SCH ×4 (05:12→23:22)
[2017-04-19] MEDS: ACETAMINOPHEN 325 MG TABLET (FP) PO PRN ×2 (05:15→20:27)
[2017-04-19] MEDS: INSULIN SLIDING SCALE (NOVOLOG) 1 VIAL SQ SCH ×3 (06:27→16:31)
[2017-04-19] MEDS: VANCOMYCIN 1,000 MG in DEXTROSE 5%-WATER - 250 ML IVPB SCH ×2 (09:10→20:47)
[2017-04-19] MEDS ORDERED: PT OWN MED DRAWER 7, Y5N ONE (09:16)
[2017-04-19] MEDS: APIXABAN 5 MG TABLET PO SCH ×2 (09:24→22:27)
[2017-04-19] MEDS: DOCUSATE SODIUM 100 MG CAPSULE (FP) PO SCH ×2 (09:28→22:07)
[2017-04-19] MEDS: GABAPENTIN 400 MG CAPSULE (FP) PO SCH ×2 (09:29→22:27)
[2017-04-19] MEDS: METOPROLOL TARTRATE 25 MG TABLET (FP) PO SCH ×2 (09:29→22:32)
[2017-04-19] MEDS: PANTOPRAZOLE 20 MG TABLET (FP) PO SCH (09:29)
[2017-04-19] MEDS: POLYETHYLENE GLYCOL 3350 119 GM BTL PO SCH (09:29)
--- NOTE | 2017-04-19 10:37 | PN ---
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 (short form) - Note 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: PULMONARY VSS/AFEBRILE AWAKE/ALERT CHART REVIEWED APPEARS STABLE NONPRODUCTIVE COUGH PALE/ANICTERIC DIMINISHED B/L BREATH SOUNDS S1S2 OBESE NO EDEMA LABS/MEDS/NOTES/IMAGES/MICRO REVIEWED MBS NOTED NO ASPIRATION IMP PNEUMONIA/UTI MM S/P STEM CELL TRANSPLANT ANEMIA DYSPHAGIA LV DIASTOLIC DYSFUNCTION ASHD PAF ON ELIQUIS HTN NIIDM PERIPHERAL NEUROPATHY PLAN ANTIBIOTICS PER ID TO BE CHANGED TO ORAL ROUTE GI WORKUP FOR DYSPHAGIA UNDERWAY/TRIAL OF REGLAN KAIDEN OJEDA MD
[2017-04-19] MEDS ORDERED: INSULIN (NOVOLOG) ASPART 100 UNITS/ML 10ML VIAL ONE (11:03)
--- NOTE | 2017-04-19 11:10 | PN ---
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, Physician History of Present Illness: Awake and alert Offers no complaints Episode of fever and hypotension last night Cultures obtained, Vancomycin/ cefepime started - Current Medication List Current Medications: Active Medications Acetaminophen (Tylenol -) 650 mg PO Q6H PRN PRN Reason: FEVER OR PAIN Last Admin: 04/19/17 05:15 Dose: 650 mg Apixaban (Eliquis -) 5 mg PO BID [facility] Last Admin: 04/19/17 09:24 Dose: 5 mg Atorvastatin Calcium (Lipitor -) 40 mg PO HS [facility] Last Admin: 04/18/17 23:07 Dose: 40 mg Cefepime HCl (Maxipime 2gm Ivpb (Pre-Docked)) 2 gm IVPB Q8H-IV [facility] Last Admin: 04/19/17 09:29 Dose: 2 gm Docusate Sodium (Colace -) 100 mg PO BID [facility] Last Admin: 04/19/17 09:28 Dose: Not Given Gabapentin (Neurontin -) 400 mg PO BID [facility] Last Admin: 04/19/17 09:29 Dose: 400 mg Vancomycin HCl 1,000 mg/ (Dextrose) 250 mls @ 166.667 mls/hr IVPB Q12H [facility] Sodium Chloride (Normal Saline -) 1,000 mls @ 100 mls/hr IV ASDIR [facility] Last Admin: 04/18/17 23:01 Dose: 100 mls/hr Insulin Aspart (Novolog Vial Sliding Scale -) 1 vial SQ TIDAC [facility] PRN Reason: Protocol Last Admin: 04/19/17 06:27 Dose: Not Given Metoclopramide HCl (Reglan Injection -) 10 mg IVPUSH Q6H-IV [facility] Last Admin: 04/19/17 08:50 Dose: 10 mg Metoprolol Tartrate (Lopressor -) 25 mg PO BID [facility] Last Admin: 04/19/17 09:29 Dose: Not Given Nystatin (Nystatin Oral Suspension -) 500,000 units PO Q6HPO [facility] Last Admin: 04/19/17 05:12 Dose: Not Given Ondansetron HCl (Zofran Injection) 8 mg IVPB BID [facility] Last Admin: 04/19/17 09:30 Dose: 8 mg Pantoprazole Sodium (Protonix -) 20 mg PO DAILY [facility] Last Admin: 04/19/17 09:29 Dose: 20 mg Polyethylene Glycol (Miralax (For Daily Use) -) 17 gm PO DAILY [facility] Last Admin: 04/19/17 09:29 Dose: Not Given - Objective Vital Signs: Vital Signs Temperature 98.3 F 04/19/17 06:52 Pulse Rate 117 H 04/19/17 05:00 Respiratory Rate 20 04/19/17 05:00 Blood Pressure 107/62 04/19/17 05:00 O2 Sat by Pulse Oximetry (%) 95 04/18/17 21:00 Constitutional: Yes: No Distress, Obese Cardiovascular: Yes: Regular Rate and Rhythm, S1, S2 Respiratory: Yes: Diminished Gastrointestinal: Yes: Normal Bowel Sounds, Soft. No: Tenderness Edema: No Labs: CBC, BMP 04/17/17 06:00 04/17/17 06:00 INR, PTT INR 1.73 (0.82-1.09) H D 04/08/17 13:10 Assessment/Plan LLL pneumonia Myeloma s/p stem cell transplant 2013 Diabetes mellitus Await cultures Continue Vancomycin/ cefepime
--- NOTE | 2017-04-19 12:07 | PN ---
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 (short form) - Note 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: Pt seen/ examined. events noted low grade temp last night- restarted on abx by i/d on i/v fluids bp noted - always run on lower side pt seen today comfortable no distress at bedside c/c-dry cough reports eating better Vital Signs Temp 98.3 F 04/19/17 06:52 Pulse 117 H 04/19/17 05:00 Resp 20 04/19/17 05:00 BP 107/62 04/19/17 05:00 Pulse Ox 95 04/18/17 21:00 Intake & Output 04/18/17 04/19/17 04/19/17 23:59 11:59 23:59 Intake Total 1050 500 Balance 1050 500 Intake: IV 200 500 Normal Saline - 1,000 ml 200 500 @ 100 mls/hr IV ASDIR [facility] Rx#:[id number] IVPB 550 Oral 300 Other: Voiding Method Urinal Urinal # Unmeasured Voids Void 2 2 Bowel Movement Yes Yes: 1 # Bowel Movements 1 Active Medications Acetaminophen (Tylenol -) 650 mg PO Q6H PRN PRN Reason: FEVER OR PAIN Last Admin: 04/19/17 05:15 Dose: 650 mg Apixaban (Eliquis -) 5 mg PO BID [facility] Last Admin: 04/19/17 09:24 Dose: 5 mg Atorvastatin Calcium (Lipitor -) 40 mg PO HS [facility] Last Admin: 04/18/17 23:07 Dose: 40 mg Cefepime HCl (Maxipime 2gm Ivpb (Pre-Docked)) 2 gm IVPB Q8H-IV [facility] Last Admin: 04/19/17 09:29 Dose: 2 gm Docusate Sodium (Colace -) 100 mg PO BID [facility] Last Admin: 04/19/17 09:28 Dose: Not Given Gabapentin (Neurontin -) 400 mg PO BID [facility] Last Admin: 04/19/17 09:29 Dose: 400 mg Vancomycin HCl 1,000 mg/ (Dextrose) 250 mls @ 166.667 mls/hr IVPB Q12H [facility] Sodium Chloride (Normal Saline -) 1,000 mls @ 100 mls/hr IV ASDIR [facility] Last Admin: 04/18/17 23:01 Dose: 100 mls/hr Insulin Aspart (Novolog Vial Sliding Scale -) 1 vial SQ TIDAC [facility] PRN Reason: Protocol Last Admin: 04/19/17 06:27 Dose: Not Given Metoclopramide HCl (Reglan Injection -) 10 mg IVPUSH Q6H-IV [facility] Last Admin: 04/19/17 08:50 Dose: 10 mg Metoprolol Tartrate (Lopressor -) 25 mg PO BID [facility] Last Admin: 04/19/17 09:29 Dose: Not Given Nystatin (Nystatin Oral Suspension -) 500,000 units PO Q6HPO [facility] Last Admin: 04/19/17 05:12 Dose: Not Given Ondansetron HCl (Zofran Injection) 8 mg IVPB BID [facility] Last Admin: 04/19/17 09:30 Dose: 8 mg Pantoprazole Sodium (Protonix -) 20 mg PO DAILY [facility] Last Admin: 04/19/17 09:29 Dose: 20 mg Polyethylene Glycol (Miralax (For Daily Use) -) 17 gm PO DAILY [facility] Last Admin: 04/19/17 09:29 Dose: Not Given CBC, BMP 04/19/17 12:40 04/19/17 12:40 Microbiology 04/19/17 00:40 Influenza Types A,B Antigen (RAVINDRA) - Final Nasopharyngeal Swab - Final 04/13/17 18:00 Blood Culture - Final Blood - Peripheral Venous NO GROWTH AFTER 5 DAYS INCUBATION 04/13/17 18:00 Blood Culture - Final Blood - Peripheral Venous NO GROWTH AFTER 5 DAYS INCUBATION PHYSICAL EXAM awake/ comfortable no distress comfortable cvs-s1s2 lungs- diminished at bases ABD- Soft, obese, nt LE- no edema neuro- alert/ awake A/P dysphagia-- orophyrangeal- better with reglan fever continue abx per i/d cultures pending ct neck - pending report supplement k will follow discussed with pt/ Problem List - Problems (1) Anemia Code(s): D64.9 - ANEMIA, UNSPECIFIED Qualifiers: Bone marrow failure anemia type: pancytopenia, antineoplastic chemotherapy- induced (2) SOB (shortness of breath) Code(s): R06.02 - SHORTNESS OF BREATH (3) Atrial fibrillation Code(s): I48.91 - UNSPECIFIED ATRIAL FIBRILLATION Qualifiers: Atrial fibrillation type: paroxysmal Qualified Code(s): I48.0 - Paroxysmal atrial fibrillation (4) Multiple myeloma in remission Code(s): C90.01 - MULTIPLE MYELOMA IN REMISSION
--- NOTE | 2017-04-19 12:20 | PN ---
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 (short form) - Note 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: Patient seen and examined was called yesterday for a noted temp spike. re-started abx and requested ID f/u Today, his main complain was the cough non-productive no other focal sx noted O/E: Constitutional: in NAD HENT: No: Nasal Congestion, Thrush, Tonsillar Exudate Neck: No: Lymphadenopathy, Tenderness, Thyromegaly Cardiovascular: Yes: Regular Rate and Rhythm, Murmur Respiratory: Yes: some LLL rales Gastrointestinal: Yes: Normal Bowel Sounds, Soft. No: Hepatomegaly, Splenomegaly, Tenderness Musculoskeletal: Yes: Back Pain Extremities: No: Cold, Cyanosis Edema: No Peripheral Pulses WNL: No Last Vital Signs Temp Pulse Resp BP Pulse Ox 98.3 F 117 H 20 107/62 95 04/19/17 06:52 04/19/17 05:00 04/19/17 05:00 04/19/17 05:00 04/18/17 21:00 CBC, BMP 04/17/17 06:00 04/17/17 06:00 Current Medications Generic Name Dose Route Start Last Admin Trade Name Freq PRN Reason Stop Dose Admin Acetaminophen 650 mg 04/08/17 19:09 04/19/17 05:15 Tylenol - PO 650 mg Q6H PRN Administration FEVER OR PAIN Apixaban 5 mg 04/08/17 20:00 04/19/17 09:24 Eliquis - PO 5 mg BID [facility]AMIE Administration Atorvastatin Calcium 40 mg 04/08/17 22:00 04/18/17 23:07 Lipitor - PO 40 mg HS [facility]IE Administration Cefepime HCl 2 gm 04/18/17 21:30 04/19/17 09:29 Maxipime 2gm Ivpb (Pre-Docked) IVPB 2 gm Q8H-IV [facility] Administration Docusate Sodium 100 mg 04/08/17 22:00 04/19/17 09:28 Colace - PO Not Given BID [facility] Gabapentin 400 mg 04/08/17 22:00 04/19/17 09:29 Neurontin - PO 400 mg BID [facility] Administration Vancomycin HCl 1,000 mg/ 250 mls @ 166.667 mls/hr 04/19/17 09:00 Dextrose IVPB Q12H [facility] Sodium Chloride 1,000 mls @ 100 mls/hr 04/18/17 21:45 04/18/17 23:01 Normal Saline - IV 100 mls/hr ASDIR [facility] Administration Insulin Aspart 1 vial 04/09/17 07:00 04/19/17 06:27 Novolog Vial Sliding Scale - SQ Not Given TIDAC [facility] Protocol Metoclopramide HCl 10 mg 04/18/17 14:57 04/19/17 08:50 Reglan Injection - IVPUSH 10 mg Q6H-IV [facility] Administration Metoprolol Tartrate 25 mg 04/13/17 10:00 04/19/17 09:29 Lopressor - PO Not Given BID [facility] Nystatin 500,000 units 04/09/17 18:00 04/19/17 05:12 Nystatin Oral Suspension - PO Not Given Q6HPO [facility] Ondansetron HCl 8 mg 04/15/17 18:15 04/19/17 09:30 Zofran Injection IVPB 8 mg BID [facility] Administration Pantoprazole Sodium 20 mg 04/09/17 10:00 04/19/17 09:29 Protonix - PO 20 mg DAILY [facility] Administration Polyethylene Glycol 17 gm 04/09/17 10:00 04/19/17 09:29 Miralax (For Daily Use) - PO Not Given DAILY [facility] New fever:likely PNA ?aspiration ?source re-cultured/seen by ID on vac.cefepime now bolus of IVFnow, HR still up. Inability to eat / gagging /heaving: extensive w/u GI/EGD/MBSS/CT a/p was done , seen by ENT, no etiology found GI note reviewed, OP Esophageal manometry CT a/p benign , CTH negative zofran 8mg PO q12H on reglan MM is in Remission ( last myeloma labs from office ) In CR f/u CBC, platelets recovered will follow. d/w KASSANDRA
--- NOTE | 2017-04-19 12:50 | PN ---
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 (short form) - Note 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: Chief Complaint: Events noted, notes reviewed, denies any chest pain but continues to report dyspnea with mild to moderate exertion, complaining of cough non productive of sputum History of Present Illness: Seen and examined. Events noted, notes reviewed, denies any chest pain but continues to report dyspnea with mild to moderate exertion, complaining of cough non productive of sputum Fever with evidence of pneumonia, antibiotics resumed Echocardiography dated 03/26/17 revealed normal LV size and function - Current Medication List Current Medications Acetaminophen (Tylenol -) 650 mg PO Q6H PRN PRN Reason: FEVER OR PAIN Last Admin: 04/19/17 05:15 Dose: 650 mg Apixaban (Eliquis -) 5 mg PO BID [facility] Last Admin: 04/19/17 09:24 Dose: 5 mg Atorvastatin Calcium (Lipitor -) 40 mg PO HS [facility] Last Admin: 04/18/17 23:07 Dose: 40 mg Cefepime HCl (Maxipime 2gm Ivpb (Pre-Docked)) 2 gm IVPB Q8H-IV [facility] Last Admin: 04/19/17 09:29 Dose: 2 gm Docusate Sodium (Colace -) 100 mg PO BID [facility] Last Admin: 04/19/17 09:28 Dose: Not Given Gabapentin (Neurontin -) 400 mg PO BID [facility] Last Admin: 04/19/17 09:29 Dose: 400 mg Vancomycin HCl 1,000 mg/ (Dextrose) 250 mls @ 166.667 mls/hr IVPB Q12H [facility] Sodium Chloride (Normal Saline -) 1,000 mls @ 100 mls/hr IV ASDIR [facility] Last Admin: 04/18/17 23:01 Dose: 100 mls/hr Insulin Aspart (Novolog Vial Sliding Scale -) 1 vial SQ TIDAC [facility] PRN Reason: Protocol Last Admin: 04/19/17 06:27 Dose: Not Given Metoclopramide HCl (Reglan Injection -) 10 mg IVPUSH Q6H-IV [facility] Last Admin: 04/19/17 08:50 Dose: 10 mg Metoprolol Tartrate (Lopressor -) 25 mg PO BID [facility] Last Admin: 04/19/17 09:29 Dose: Not Given Nystatin (Nystatin Oral Suspension -) 500,000 units PO Q6HPO [facility] Last Admin: 04/19/17 05:12 Dose: Not Given Ondansetron HCl (Zofran Injection) 8 mg IVPB BID [facility] Last Admin: 04/19/17 09:30 Dose: 8 mg Pantoprazole Sodium (Protonix -) 20 mg PO DAILY [facility] Last Admin: 04/19/17 09:29 Dose: 20 mg Polyethylene Glycol (Miralax (For Daily Use) -) 17 gm PO DAILY [facility] Last Admin: 04/19/17 09:29 Dose: Not Given Review of Systems Constitutional: Denies: Chills or Fever Cardiovascular: As noted above Respiratory: denies: Cough or Sputum Gastrointestinal: Denies: Vomiting, Diarrhea, Constipation or Abdominal Pain but reports Nausea Genitourinary: No Symptoms Reported Neurology: No seizures or syncope - Objective Vital Signs: Last Vital Signs Temp Pulse Resp BP Pulse Ox 98.3 F 117 H 20 107/62 95 04/19/17 06:52 04/19/17 05:00 04/19/17 05:00 04/19/17 05:00 04/18/17 21:00 Intake & Output 04/16/17 04/17/17 04/18/17 04/19/17 23:59 23:59 23:59 23:59 Intake Total 150 1050 1200 500 Balance 150 1050 1200 500 Constitutional: No Distress, Calm Neck: Supple Negative JVD No bruit Cardiovascular: S1 S2 Regular Rate Rhythm Respiratory: Diminished Breath Sounds at the Bases Gastrointestinal: Soft Benign Normal Bowel Sounds Ext: No Edema Labs: CBC, BMP 04/17/17 06:00 04/17/17 06:00 Assessment/Plan ASSESSMENT: 1. Progressive exertional dyspnea (resolving) and fatigue referable to 2. Symptomatic anemia post transfusion 3. Paroxysmal atrial fibrillation with periods of rapid ventricular response currently in sinus rhythm [id number] score of 3, on A/C with NOAC's/Eliquis 4. Coronary artery disease angina pectoris 5. LV diastolic dysfunction with chronic class 0-I NYHA classification LV failure, compensated/euvolemic 6. Hypertension 7. DM 8. Hypercholesterolemia 9. Thrombocytopenia, resolved 10. History of multiple myeloma post stem cell transplant 11. History of peripheral neuropathy 12. Dysphagia, etiology to be determined evaluation in progress 13. Recurrent fever, pneumonia PLAN: 1. Continue Eliquis with caution and close monitoring of CBC 2. Continue Lopressor hemodynamics permitting 3. Continue Lipitor 4. Recommend the addition of ACEI or ARBS hemodynamics permitting unless it is absolutely contraindicated, hemodynamics permitting 5. Antibiotics as per the ID/primary team 6. Dysphagia evaluation as planned Tank Munoz M.D.
[2017-04-19 12:58] LABS: BASO % 0.2 % (0-2.0); EOS % 1.1 % (0-4.5); HEMATOCRIT 32.5 % (35.4-49); HEMOGLOBIN 10.5 GM/dL (11.7-16.9); LYMPH % 18.9 % (8-40); MCH 32.6 pg (25.7-33.7); MCHC 32.4 g/dl (32.0-35.9); MEAN CELL VOLUME 100.8 fl (80-96); MEAN PLT VOLUME 7.4 fl (7.5-11.1); MONO % 16.1 % (3.8-10.2); NEUT % 63.7 % (42.8-82.8); PLATELET COUNT 170 K/MM3 (134-434); RBC 3.23 M/mm3 (4.00-5.60); RDW 18.4 % (11.9-15.9); WHITE BLOOD COUNT 4.1 K/mm3 (4.0-10.0)
[2017-04-19 13:22] LABS: ALBUMIN 2.4 g/dl (3.4-5.0); ALK PHOS 80 U/L (45-117); ANION GAP 10 (8-16); BILIRUBIN,TOTAL 0.4 mg/dL (0.2-1.0); BLOOD UREA NITROGEN 7 mg/dL (7-18); CALCIUM 7.5 mg/dL (8.5-10.1); CHLORIDE 107 mmol/L (98-107); CO2 25 mmol/L (21-32); GLUCOSE,RANDOM 123 mg/dL (74-106); POTASSIUM 3.1 mmol/L (3.5-5.1); SGOT/AST 57 U/L (15-37); SGPT/ALT 32 U/L (12-78); SODIUM 142 mmol/L (136-145); TOT PROT 5.2 g/dl (6.4-8.2)
[2017-04-19] MEDS: SODIUM CHLORIDE 0.9%/KCL 20 MEQ/1,000 ML INFUS.BAG IV SCH (14:30)
[2017-04-19] MEDS ORDERED: POTASSIUM CHLORIDE ORAL LIQUID 20 MEQ/15 ML PO ONE (14:30)
--- NOTE | 2017-04-19 20:47 | PN ---
GI 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 Subjective: GI NOte: Still having swallowing difficulties. No response to Reglan. - Objective Vital Signs: Vital Signs Temperature 98.8 F 04/19/17 18:00 Pulse Rate 111 H 04/19/17 18:00 Respiratory Rate 20 04/19/17 18:00 Blood Pressure 119/68 04/19/17 18:00 O2 Sat by Pulse Oximetry (%) 96 04/19/17 09:00 Constitutional: Calm ...Auscultate: Yes: Normoactive Bowel Sounds ...Palpate: Yes: Soft, Other (nontender) Labs: CBC, BMP 04/19/17 12:40 04/19/17 12:40 INR, PTT INR 1.73 (0.82-1.09) H D 04/08/17 13:10 Problem List - Problems (1) Dysphagia Assessment/Plan: The etiology is not clear. For distal esophagram as well to exclude achalasia. Continue empiric trial of Reglan Code(s): R13.10 - DYSPHAGIA, UNSPECIFIED Qualifiers: Dysphagia type: other dysphagia Qualified Code(s): R13.19 - Other dysphagia (2) Anemia Code(s): D64.9 - ANEMIA, UNSPECIFIED Qualifiers: Bone marrow failure anemia type: pancytopenia, antineoplastic chemotherapy- induced
[2017-04-19] MEDS: ATORVASTATIN CA 40 MG TABLET (FP) PO SCH (22:27)
[2017-04-20] MEDS ORDERED: PT OWN MED DRAWER 7, Y5N ONE ×4 (01:42→21:17)
[2017-04-20] MEDS: METOCLOPRAMIDE HCL INJECTION 10 MG/2 ML VIAL IVPUSH SCH ×4 (02:04→21:48)
[2017-04-20] MEDS: CEFEPIME 2 GM/100 ML BAG PRE-DOCKED IVPB SCH (02:07)
[2017-04-20] MEDS: NYSTATIN 500,000 UNITS/5 ML SUSPENSION PO SCH ×4 (06:00→23:41)
[2017-04-20] MEDS: SODIUM CHLORIDE 0.9%/KCL 20 MEQ/1,000 ML INFUS.BAG IV SCH (06:02)
[2017-04-20] MEDS: INSULIN SLIDING SCALE (NOVOLOG) 1 VIAL SQ SCH ×3 (06:10→19:07)
[2017-04-20 07:05] LABS: HEMATOCRIT 29.4 % (35.4-49); HEMOGLOBIN 9.4 GM/dL (11.7-16.9); MCH 32.3 pg (25.7-33.7); MCHC 31.8 g/dl (32.0-35.9); MEAN CELL VOLUME 101.4 fl (80-96); MEAN PLT VOLUME 8.1 fl (7.5-11.1); PLATELET COUNT 134 K/MM3 (134-434); RDW 18.7 % (11.9-15.9); WHITE BLOOD COUNT 2.4 K/mm3 (4.0-10.0)
[2017-04-20 07:38] LABS: ALBUMIN 1.9 g/dl (3.4-5.0); ANION GAP 6 (8-16); BILIRUBIN,TOTAL 0.5 mg/dL (0.2-1.0); BLOOD UREA NITROGEN 6 mg/dL (7-18); CHLORIDE 115 mmol/L (98-107); CO2 26 mmol/L (21-32); CREATININE 0.9 mg/dL (0.7-1.3); GLUCOSE,RANDOM 87 mg/dL (74-106); POTASSIUM 3.3 mmol/L (3.5-5.1); SGOT/AST 43 U/L (15-37); SGPT/ALT 26 U/L (12-78); SODIUM 147 mmol/L (136-145); TOT PROT 4.5 g/dl (6.4-8.2)
[2017-04-20 07:39] LABS: ALK PHOS 69 U/L (45-117)
[2017-04-20 08:51] LABS: CALCIUM 6.9 mg/dL (8.5-10.1)
[2017-04-20 09:19] LABS: ANISOCYTOSIS 2+; MACROCYTOSIS 1+; PLATELET ESTIMATE DECREASED; TEAR DROP CELLS 1+
--- NOTE | 2017-04-20 09:32 | PN ---
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, Physician Chief Complaint: Not in distress this am back from Radiology after GI series History of Present Illness: Patient was seen and examined. Awake and alert. Chart was reviewed Denies chest pain, SOB or palpitations - Current Medication List Current Medications: Active Medications Acetaminophen (Tylenol -) 650 mg PO Q6H PRN PRN Reason: FEVER OR PAIN Last Admin: 04/19/17 20:27 Dose: 650 mg Apixaban (Eliquis -) 5 mg PO BID [facility] Last Admin: 04/19/17 22:27 Dose: 5 mg Atorvastatin Calcium (Lipitor -) 40 mg PO HS [facility] Last Admin: 04/19/17 22:27 Dose: 40 mg Docusate Sodium (Colace -) 100 mg PO BID [facility] Last Admin: 04/19/17 22:07 Dose: Not Given Gabapentin (Neurontin -) 400 mg PO BID [facility] Last Admin: 04/19/17 22:27 Dose: 400 mg Vancomycin HCl 1,000 mg/ (Dextrose) 250 mls @ 166.667 mls/hr IVPB Q12H [facility] Last Admin: 04/19/17 20:47 Dose: 166.667 mls/hr Potassium Chloride/Sodium Chloride (Ns+20 Meq Kcl -) 20 meq in 1,000 mls @ 100 mls/hr IV ASDIR [facility] Last Admin: 04/20/17 06:02 Dose: 100 mls/hr Cefepime HCl 2 gm/ Dextrose 100 mls @ 200 mls/hr IVPB Q8H-IV [facility] Insulin Aspart (Novolog Vial Sliding Scale -) 1 vial SQ TIDAC [facility] PRN Reason: Protocol Last Admin: 04/20/17 06:10 Dose: Not Given Metoclopramide HCl (Reglan Injection -) 10 mg IVPUSH Q6H-IV [facility] Last Admin: 04/20/17 02:04 Dose: 10 mg Metoprolol Tartrate (Lopressor -) 12.5 mg PO BID [facility] Last Admin: 04/19/17 22:32 Dose: 12.5 mg Nystatin (Nystatin Oral Suspension -) 500,000 units PO Q6HPO [facility] Last Admin: 04/20/17 06:00 Dose: Not Given Ondansetron HCl (Zofran Injection) 8 mg IVPB BID [facility] Last Admin: 04/19/17 22:28 Dose: 8 mg Pantoprazole Sodium (Protonix -) 20 mg PO DAILY [facility] Last Admin: 04/19/17 09:29 Dose: 20 mg Polyethylene Glycol (Miralax (For Daily Use) -) 17 gm PO DAILY [facility] Last Admin: 04/19/17 09:29 Dose: Not Given - Objective Vital Signs: Vital Signs Temperature 98.5 F 04/20/17 06:00 Pulse Rate 91 H 04/20/17 06:00 Respiratory Rate 20 04/20/17 06:00 Blood Pressure 105/64 04/20/17 06:00 O2 Sat by Pulse Oximetry (%) 95 04/19/17 21:00 Eyes: Yes: PERRL HENT: Yes: Atraumatic Neck: Yes: Supple Cardiovascular: Yes: Regular Rate and Rhythm, S1, S2 Respiratory: Yes: Diminished Gastrointestinal: Yes: Normal Bowel Sounds, Soft. No: Tenderness Edema: No Additional Findings/Remarks: Review of Systems Constitutional: Denies: Chills or Fever Cardiovascular: Denies: chest pain, shortness of breath, palpitation Respiratory: denies: Cough or Sputum Gastrointestinal: Denies: Vomiting, Diarrhea, Constipation or Abdominal Pain but reports Nausea Genitourinary: No Symptoms Reported Neurology: No seizures or syncope Labs: CBC, BMP 04/20/17 05:35 04/20/17 05:35 Problem List - Problems (1) CAD (coronary artery disease) Code(s): I25.10 - ATHSCL HEART DISEASE OF [place] CORONARY ARTERY W/O ANG PCTRS Qualifiers: Coronary Disease-Associated Artery/Lesion type: [place] artery [place] vs. transplanted heart: [place] heart Associated angina: without angina Qualified Code(s): I25.10 - Atherosclerotic heart disease of [place] coronary artery without angina pectoris (2) HTN (hypertension) Code(s): I10 - ESSENTIAL (PRIMARY) HYPERTENSION Qualifiers: Hypertension type: essential hypertension Qualified Code(s): I10 - Essential (primary) hypertension (3) Hypercholesterolemia Code(s): E78.00 - PURE HYPERCHOLESTEROLEMIA, UNSPECIFIED (4) Diabetes mellitus Code(s): E11.9 - TYPE 2 DIABETES MELLITUS WITHOUT COMPLICATIONS Qualifiers: Diabetes mellitus type: type 2 (5) Anemia Code(s): D64.9 - ANEMIA, UNSPECIFIED Qualifiers: Bone marrow failure anemia type: pancytopenia, antineoplastic chemotherapy- induced (6) Dysphagia Code(s): R13.10 - DYSPHAGIA, UNSPECIFIED Qualifiers: Dysphagia type: other dysphagia Qualified Code(s): R13.19 - Other dysphagia (7) SOB (shortness of breath) Code(s): R06.02 - SHORTNESS OF BREATH (8) Atrial fibrillation Code(s): I48.91 - UNSPECIFIED ATRIAL FIBRILLATION Qualifiers: Atrial fibrillation type: paroxysmal Qualified Code(s): I48.0 - Paroxysmal atrial fibrillation (9) Diastolic dysfunction Code(s): I51.9 - HEART DISEASE, UNSPECIFIED (10) Multiple myeloma in remission Code(s): C90.01 - MULTIPLE MYELOMA IN REMISSION (11) Thrombocytopenia Code(s): D69.6 - THROMBOCYTOPENIA, UNSPECIFIED Assessment/Plan 1. Progressive dyspnea on exertion and fatigue 2. Symptomatic anemia post transfusion 3. Paroxysmal atrial fibrillation with periods of rapid ventricular response currently in sinus rhythm [id number] score of 3 - on A/C with NOAC (Eliquis) 4. Coronary artery disease, angina pectoris 5. LV diastolic dysfunction with chronic class 0-I NYHA classification LV failure, compensated/euvolemic 6. Hypertension 7. DM 8. Hypercholesterolemia 9. Thrombocytopenia, resolved 10. History of multiple myeloma post stem cell transplant 11. History of peripheral neuropathy 12. Dysphagia, etiology to be determined evaluation in progress 13. Recurrent fever - pneumonia PLAN: 1. Continue Eliquis with caution and close monitoring of CBC 2. Continue Lopressor as tolerated 3. Continue Lipitor 4. Recommend addition of ACEI or ARB as hemodynamics permit unless it is absolutely contraindicated 5. Antibiotics as per the ID 6. Dysphagia evaluation including GI series this am Further plans are to follow Dmitri Ngo MD
--- NOTE | 2017-04-20 09:49 | PN ---
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 (short form) - Note 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: pt seen/ examined not eating today vomiting got call from radiologist-- incoomplete study- eosophagram vomitted and also aspirated in radiology pt also having diarrhea since yesterday not eating . Vital Signs Temp 98.5 F 04/20/17 06:00 Pulse 91 H 04/20/17 06:00 Resp 20 04/20/17 06:00 BP 105/64 04/20/17 06:00 Pulse Ox 95 04/19/17 21:00 Intake & Output 04/19/17 04/19/17 04/20/17 11:59 23:59 11:59 Intake Total 500 1720 900 Output Total 200 800 Balance 500 1520 100 Intake: IV 500 1000 800 NS+20 MEQ KCL - 20 meq In 400 800 1,000 ml @ 100 mls/hr IV ASDIR [facility] Rx#: [id number] Normal Saline - 1,000 ml 500 @ 100 mls/hr IV ASDIR JAMIE Rx#:[id number] saline lock 600 IVPB 720 100 Output: Urine 200 800 Void 200 800 Other: Voiding Method Urinal Toilet # Unmeasured Voids Void 2 1 Bowel Movement Yes: 1 Yes No # Bowel Movements 3 Active Medications Acetaminophen (Tylenol -) 650 mg PO Q6H PRN PRN Reason: FEVER OR PAIN Last Admin: 04/19/17 20:27 Dose: 650 mg Apixaban (Eliquis -) 5 mg PO BID [facility] Last Admin: 04/19/17 22:27 Dose: 5 mg Atorvastatin Calcium (Lipitor -) 40 mg PO [facility] Last Admin: 04/19/17 22:27 Dose: 40 mg Docusate Sodium (Colace -) 100 mg PO BID [facility] Last Admin: 04/19/17 22:07 Dose: Not Given Gabapentin (Neurontin -) 400 mg PO BID [facility] Last Admin: 04/19/17 22:27 Dose: 400 mg Vancomycin HCl 1,000 mg/ (Dextrose) 250 mls @ 166.667 mls/hr IVPB Q12H [facility] Last Admin: 04/19/17 20:47 Dose: 166.667 mls/hr Cefepime HCl 2 gm/ Dextrose 100 mls @ 200 mls/hr IVPB Q8H-IV [facility] Potassium Chloride (Potassium Chloride 10 Meq Premix Ivpb -) 10 meq in 100 mls @ 100 mls/hr IVPB Q60M [facility] Stop: 04/20/17 12:44 Potassium Chloride/Dextrose/Sod Cl (D5-1/2ns+20 Meq Kcl -) 20 meq in 1,000 mls @ 100 mls/hr IV ASDIR [facility] Insulin Aspart (Novolog Vial Sliding Scale -) 1 vial SQ TIDAC [facility] PRN Reason: Protocol Last Admin: 04/20/17 06:10 Dose: Not Given Metoclopramide HCl (Reglan Injection -) 10 mg IVPUSH Q6H-IV [facility] Last Admin: 04/20/17 02:04 Dose: 10 mg Metoprolol Tartrate (Lopressor -) 12.5 mg PO BID [facility] Last Admin: 04/19/17 22:32 Dose: 12.5 mg Metronidazole (Flagyl -) 500 mg PO TID [facility] Nystatin (Nystatin Oral Suspension -) 500,000 units PO Q6HPO [facility] Last Admin: 04/20/17 06:00 Dose: Not Given Ondansetron HCl (Zofran Injection) 8 mg IVPB BID [facility] Last Admin: 04/19/17 22:28 Dose: 8 mg Pantoprazole Sodium (Protonix -) 20 mg PO DAILY [facility] Last Admin: 04/19/17 09:29 Dose: 20 mg Polyethylene Glycol (Miralax (For Daily Use) -) 17 gm PO DAILY [facility] Last Admin: 04/19/17 09:29 Dose: Not Given CBC, BMP 04/20/17 05:35 04/20/17 05:35 PHYSICAL EXAM awake/looks weak but not in distress cvs-s1s2 lungs- diminished at bases ABD- Soft, obese, nt LE- no edema neuro- alert/ awake A/P dysphagia-- orophyrangeal- all workup negative Including EGD/ CT chest and head as well as swelling evaluation GI to follow Discussed with the radiologist aspiration pneumonia continue abx per i/d cultures pending supplement k will follow continue hydration Start him empirically on Flagyl--- as patient having diarrhea and low-grade temperature Stool for C. difficile Discussed with nursing staff ID to follow Problem List - Problems (1) Anemia Code(s): D64.9 - ANEMIA, UNSPECIFIED Qualifiers: Bone marrow failure anemia type: pancytopenia, antineoplastic chemotherapy- induced (2) SOB (shortness of breath) Code(s): R06.02 - SHORTNESS OF BREATH (3) Atrial fibrillation Code(s): I48.91 - UNSPECIFIED ATRIAL FIBRILLATION Qualifiers: Atrial fibrillation type: paroxysmal Qualified Code(s): I48.0 - Paroxysmal atrial fibrillation (4) Multiple myeloma in remission Code(s): C90.01 - MULTIPLE MYELOMA IN REMISSION
[2017-04-20] MEDS: VANCOMYCIN 1,000 MG in DEXTROSE 5%-WATER - 250 ML IVPB SCH ×2 (10:02→21:58)
[2017-04-20] MEDS: DOCUSATE SODIUM 100 MG CAPSULE (FP) PO SCH ×2 (10:02→21:58)
[2017-04-20] MEDS: POLYETHYLENE GLYCOL 3350 119 GM BTL PO SCH (10:03)
[2017-04-20] MEDS: METOPROLOL TARTRATE 25 MG TABLET (FP) PO SCH ×2 (10:03→21:50)
[2017-04-20] MEDS: CEFEPIME 2 GM in DEXTROSE 5%-WATER - 100 ML IVPB SCH ×2 (10:03→19:07)
[2017-04-20] MEDS: PANTOPRAZOLE 20 MG TABLET (FP) PO SCH (10:03)
[2017-04-20] MEDS: GABAPENTIN 400 MG CAPSULE (FP) PO SCH ×2 (10:03→21:50)
[2017-04-20] MEDS: ONDANSETRON 4 MG/2 ML VIAL IVPB SCH ×2 (10:04→23:39)
[2017-04-20] MEDS: APIXABAN 5 MG TABLET PO SCH ×2 (10:11→21:49)
[2017-04-20] MEDS ORDERED: POTASSIUM CHLORIDE 30 MEQ in SODIUM CHLORIDE 300 ML IVPB ONE (11:00)
[2017-04-20] MEDS: D5-1/2NS+20 MEQ KCL - 20 MEQ/1,000 ML INFUS.BAG IV SCH (12:13)
[2017-04-20] MEDS: KCL 10 MEQ IVPB 10 MEQ/100 ML INFUS.BAG IVPB SCH (12:16)
--- NOTE | 2017-04-20 12:37 | PN ---
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 (short form) - Note 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: Apparently having diarrhea and vomiting. Breathing is non-labored. No CP or SOB. Intake & Output 04/17/17 04/18/17 04/19/17 04/20/17 23:59 23:59 23:59 23:59 Intake Total 1050 1200 2220 900 Output Total 200 800 Balance 1050 1200 2020 100 Last Vital Signs Temp Pulse Resp BP Pulse Ox 98.5 F 91 H 20 105/64 95 04/20/17 06:00 04/20/17 06:00 04/20/17 06:00 04/20/17 06:00 04/19/17 21:00 Active Medications Acetaminophen (Tylenol -) 650 mg PO Q6H PRN PRN Reason: FEVER OR PAIN Last Admin: 04/19/17 20:27 Dose: 650 mg Apixaban (Eliquis -) 5 mg PO BID [facility] Last Admin: 04/20/17 10:11 Dose: 5 mg Atorvastatin Calcium (Lipitor -) 40 mg PO HS [facility] Last Admin: 04/19/17 22:27 Dose: 40 mg Docusate Sodium (Colace -) 100 mg PO BID [facility] Last Admin: 04/20/17 10:02 Dose: Not Given Gabapentin (Neurontin -) 400 mg PO BID [facility] Last Admin: 04/20/17 10:03 Dose: 400 mg Vancomycin HCl 1,000 mg/ (Dextrose) 250 mls @ 166.667 mls/hr IVPB Q12H [facility] Last Admin: 04/20/17 10:02 Dose: 166.667 mls/hr Cefepime HCl 2 gm/ Dextrose 100 mls @ 200 mls/hr IVPB Q8H-IV [facility] Last Admin: 04/20/17 10:03 Dose: 200 mls/hr Potassium Chloride/Dextrose/Sod Cl (D5-1/2ns+20 Meq Kcl -) 20 meq in 1,000 mls @ 100 mls/hr IV ASDIR [facility] Last Admin: 04/20/17 12:13 Dose: 100 mls/hr Potassium Chloride 30 meq/ (Sodium Chloride) 315 mls @ 105 mls/hr IVPB ONCE ONE Stop: 04/20/17 13:59 Last Admin: 04/20/17 12:13 Dose: 105 mls/hr Insulin Aspart (Novolog Vial Sliding Scale -) 1 vial SQ TIDAC [facility] PRN Reason: Protocol Last Admin: 04/20/17 12:13 Dose: Not Given Metoclopramide HCl (Reglan Injection -) 10 mg IVPUSH Q6H-IV [facility] Last Admin: 04/20/17 10:02 Dose: 10 mg Metoprolol Tartrate (Lopressor -) 12.5 mg PO BID [facility] Last Admin: 04/20/17 10:03 Dose: 12.5 mg Metronidazole (Flagyl -) 500 mg PO TID [facility] Nystatin (Nystatin Oral Suspension -) 500,000 units PO Q6HPO [facility] Last Admin: 04/20/17 12:19 Dose: Not Given Ondansetron HCl (Zofran Injection) 8 mg IVPB BID [facility] Last Admin: 04/20/17 10:04 Dose: 8 mg Pantoprazole Sodium (Protonix -) 20 mg PO DAILY [facility] Last Admin: 04/20/17 10:03 Dose: 20 mg Polyethylene Glycol (Miralax (For Daily Use) -) 17 gm PO DAILY [facility] Last Admin: 04/20/17 10:03 Dose: Not Given Constitutional: Yes: NAD Eyes: Yes: WNL HENT: Yes: WNL Neck: Yes: WNL Cardiovascular: Yes: Pulse Irregular, S1, S2 Respiratory: Yes: Bibasilar Rales/rhonchi Gastrointestinal: Yes: Normal Bowel Sounds, Soft Extremities: Yes: WNL Edema: Yes Labs: Laboratory Results - last 24 hr 04/19/17 04/19/17 04/19/17 12:40 12:40 16:58 WBC 4.1 RBC 3.23 L Hgb 10.5 L Hct 32.5 L MCV 100.8 H MCH 32.6 MCHC 32.4 RDW 18.4 H Plt Count 170 MPV 7.4 L D Neutrophils % 63.7 Neutrophils % (Manual) Band Neutrophils % Lymphocytes % 18.9 Lymphocytes % (Manual) Monocytes % 16.1 H Monocytes % (Manual) Eosinophils % 1.1 Eosinophils % (Manual) Basophils % 0.2 Basophils % (Manual) Myelocytes % (Man) Metamyelocytes Platelet Estimate Polychromasia Anisocytosis Microcytosis Macrocytosis Tear Drop Cells Sodium 142 Potassium 3.1 L Chloride 107 Carbon Dioxide 25 Anion Gap 10 BUN 7 D Creatinine 1.0 Creat Clearance w eGFR > 60 POC Glucometer 106 Random Glucose 123 H D Calcium 7.5 L Total Bilirubin 0.4 D AST 57 H D ALT 32 D Alkaline Phosphatase 80 Total Protein 5.2 L Albumin 2.4 L 04/20/17 04/20/17 04/20/17 05:35 05:35 06:04 WBC 2.4 L D RBC 2.90 L Hgb 9.4 L D Hct 29.4 L MCV 101.4 H MCH 32.3 MCHC 31.8 L RDW 18.7 H Plt Count 134 D MPV 8.1 Neutrophils % No Result Required. Neutrophils % (Manual) 54.7 Band Neutrophils % 1.0 Lymphocytes % No Result Required. Lymphocytes % (Manual) 17.5 D Monocytes % Monocytes % (Manual) 16 H* D Eosinophils % Eosinophils % (Manual) 1.1 Basophils % Basophils % (Manual) 1.0 D Myelocytes % (Man) 1 D Metamyelocytes 1 Platelet Estimate Decreased Polychromasia 1+ Anisocytosis 2+ Microcytosis 1+ Macrocytosis 1+ Tear Drop Cells 1+ Sodium 147 H Potassium 3.3 L Chloride 115 H Carbon Dioxide 26 Anion Gap 6 L BUN 6 L Creatinine 0.9 Creat Clearance w eGFR > 60 POC Glucometer 88 Random Glucose 87 D Calcium 6.9 L* Total Bilirubin 0.5 D AST 43 H D ALT 26 Alkaline Phosphatase 69 Total Protein 4.5 L Albumin 1.9 L D Problem List - Problems (1) Anemia Code(s): D64.9 - ANEMIA, UNSPECIFIED Qualifiers: Bone marrow failure anemia type: pancytopenia, antineoplastic chemotherapy- induced (2) SOB (shortness of breath) Code(s): R06.02 - SHORTNESS OF BREATH (3) Diastolic dysfunction Code(s): I51.9 - HEART DISEASE, UNSPECIFIED (4) Dyspnea Code(s): R06.00 - DYSPNEA, UNSPECIFIED (6) Thrombocytopenia Code(s): D69.6 - THROMBOCYTOPENIA, UNSPECIFIED (7) Atrial fibrillation Code(s): I48.91 - UNSPECIFIED ATRIAL FIBRILLATION Qualifiers: Atrial fibrillation type: paroxysmal Qualified Code(s): I48.0 - Paroxysmal atrial fibrillation Assessment/Plan IMP DYSPNEA IMPROVING PNEUMONIA SYMPTOMATIC ANEMIA LV DIASTOLIC DYSFUNCTION ASHD PAF MM ANEMIA/THROMBOCYOPENIA HTN NIIDM PERIPHERAL NEUROPATHY PLAN O2 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
--- NOTE | 2017-04-20 15:55 | PN ---
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, Physician History of Present Illness: appears lethargic. Complains of generalized weakness Episode of fever late yesterday Cultures prelim no growth, remains on Vancomycin/ cefepime - Current Medication List Current Medications: Active Medications Acetaminophen (Tylenol -) 650 mg PO Q6H PRN PRN Reason: FEVER OR PAIN Last Admin: 04/19/17 20:27 Dose: 650 mg Apixaban (Eliquis -) 5 mg PO BID [facility] Last Admin: 04/20/17 10:11 Dose: 5 mg Atorvastatin Calcium (Lipitor -) 40 mg PO HS [facility] Last Admin: 04/19/17 22:27 Dose: 40 mg Docusate Sodium (Colace -) 100 mg PO BID [facility] Last Admin: 04/20/17 10:02 Dose: Not Given Gabapentin (Neurontin -) 400 mg PO BID [facility] Last Admin: 04/20/17 10:03 Dose: 400 mg Vancomycin HCl 1,000 mg/ (Dextrose) 250 mls @ 166.667 mls/hr IVPB Q12H [facility] Last Admin: 04/20/17 10:02 Dose: 166.667 mls/hr Cefepime HCl 2 gm/ Dextrose 100 mls @ 200 mls/hr IVPB Q8H-IV [facility] Last Admin: 04/20/17 10:03 Dose: 200 mls/hr Potassium Chloride/Dextrose/Sod Cl (D5-1/2ns+20 Meq Kcl -) 20 meq in 1,000 mls @ 100 mls/hr IV ASDIR [facility] Last Admin: 04/20/17 12:13 Dose: 100 mls/hr Insulin Aspart (Novolog Vial Sliding Scale -) 1 vial SQ TIDAC [facility] PRN Reason: Protocol Last Admin: 04/20/17 12:13 Dose: Not Given Metoclopramide HCl (Reglan Injection -) 10 mg IVPUSH Q6H-IV [facility] Last Admin: 04/20/17 10:02 Dose: 10 mg Metoprolol Tartrate (Lopressor -) 12.5 mg PO BID [facility] Last Admin: 04/20/17 10:03 Dose: 12.5 mg Metronidazole (Flagyl -) 500 mg PO TID [facility] Nystatin (Nystatin Oral Suspension -) 500,000 units PO Q6HPO [facility] Last Admin: 04/20/17 12:19 Dose: Not Given Ondansetron HCl (Zofran Injection) 8 mg IVPB BID [facility] Last Admin: 04/20/17 10:04 Dose: 8 mg Pantoprazole Sodium (Protonix -) 20 mg PO DAILY [facility] Last Admin: 04/20/17 10:03 Dose: 20 mg Polyethylene Glycol (Miralax (For Daily Use) -) 17 gm PO DAILY [facility] Last Admin: 04/20/17 10:03 Dose: Not Given - Objective Vital Signs: Vital Signs Temperature 98.8 F 04/20/17 15:01 Pulse Rate 90 04/20/17 15:01 Respiratory Rate 20 04/20/17 15:01 Blood Pressure 93/55 04/20/17 15:01 O2 Sat by Pulse Oximetry (%) 95 04/19/17 21:00 Constitutional: Yes: No Distress Cardiovascular: Yes: Regular Rate and Rhythm, S1, S2 Respiratory: Yes: Rhonchi Gastrointestinal: Yes: Normal Bowel Sounds, Soft. No: Tenderness Edema: Yes Labs: CBC, BMP 04/20/17 05:35 04/20/17 05:35 INR, PTT INR 1.73 (0.82-1.09) H D 04/08/17 13:10 Assessment/Plan LLL pneumonia Myeloma s/p stem cell transplant 2013 Diabetes mellitus Await cultures Continue Vancomycin/ cefepime
[2017-04-20] MEDS: metroNIDAZOLE 250 MG TABLET PO SCH ×2 (16:48→21:49)
[2017-04-20] MEDS: ATORVASTATIN CA 40 MG TABLET (FP) PO SCH (21:49)
[2017-04-21] MEDS ORDERED: PT OWN MED DRAWER 7, Y5N ONE ×3 (01:59→18:49)
[2017-04-21] MEDS: CEFEPIME 2 GM in DEXTROSE 5%-WATER - 100 ML IVPB SCH ×3 (02:02→19:02)
[2017-04-21] MEDS: METOCLOPRAMIDE HCL INJECTION 10 MG/2 ML VIAL IVPUSH SCH ×4 (02:29→21:45)
[2017-04-21] MEDS: metroNIDAZOLE 250 MG TABLET PO SCH ×4 (06:34→22:02)
[2017-04-21] MEDS: D5-1/2NS+20 MEQ KCL - 20 MEQ/1,000 ML INFUS.BAG IV SCH ×3 (06:34→22:01)
[2017-04-21] MEDS: NYSTATIN 500,000 UNITS/5 ML SUSPENSION PO SCH ×5 (06:37→23:30)
[2017-04-21] MEDS: INSULIN SLIDING SCALE (NOVOLOG) 1 VIAL SQ SCH ×3 (06:38→19:10)
[2017-04-21 08:06] LABS: BASO % 0.8 % (0-2.0); EOS % 2.3 % (0-4.5); HEMATOCRIT 30.8 % (35.4-49); HEMOGLOBIN 9.9 GM/dL (11.7-16.9); LYMPH % 26.7 % (8-40); MCH 32.4 pg (25.7-33.7); MCHC 32.1 g/dl (32.0-35.9); MEAN PLT VOLUME 8.2 fl (7.5-11.1); MONO % 18.4 % (3.8-10.2); NEUT % 51.8 % (42.8-82.8); PLATELET COUNT 135 K/MM3 (134-434); RBC 3.05 M/mm3 (4.00-5.60); RDW 18.6 % (11.9-15.9); WHITE BLOOD COUNT 2.7 K/mm3 (4.0-10.0)
--- NOTE | 2017-04-21 08:14 | PN ---
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 (short form) - Note 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: Pt seen/ examined. comfortable unable to eat still having diarrhea no distress afebrile denies pain. Vital Signs Temp 98.5 F 04/21/17 06:15 Pulse 87 04/21/17 06:15 Resp 20 04/21/17 06:15 BP 91/58 04/21/17 06:15 Pulse Ox 95 04/20/17 21:00 Intake & Output 04/20/17 04/20/17 04/21/17 11:59 23:59 11:59 Intake Total 900 410 Output Total 800 Balance 100 410 Intake: IV 800 NS+20 MEQ KCL - 20 meq In 800 1,000 ml @ 100 mls/hr IV ASDIR [facility]AMIE Rx#: [id number] IVPB 100 270 Oral 140 Output: Urine 800 Void 800 Other: Voiding Method Toilet Toilet Toilet # Unmeasured Voids Void 2 Bowel Movement No Yes Active Medications Acetaminophen (Tylenol -) 650 mg PO Q6H PRN PRN Reason: FEVER OR PAIN Apixaban (Eliquis -) 5 mg PO BID [facility] Atorvastatin Calcium (Lipitor -) 40 mg PO HS [facility] Docusate Sodium (Colace -) 100 mg PO BID [facility] Gabapentin (Neurontin -) 400 mg PO BID [facility] Vancomycin HCl 1,000 mg/ (Dextrose) 250 mls @ 166.667 mls/hr IVPB Q12H [facility] Last Admin: 04/20/17 21:58 Dose: 166.667 mls/hr Cefepime HCl 2 gm/ Dextrose 100 mls @ 200 mls/hr IVPB Q8H-IV [facility] Last Admin: 04/21/17 02:02 Dose: 200 mls/hr Potassium Chloride/Dextrose/Sod Cl (D5-1/2ns+20 Meq Kcl -) 20 meq in 1,000 mls @ 100 mls/hr IV ASDIR [facility] Last Admin: 04/21/17 06:34 Dose: 100 mls/hr Insulin Aspart (Novolog Vial Sliding Scale -) 1 vial SQ TIDAC [facility] PRN Reason: Protocol Metoclopramide HCl (Reglan Injection -) 10 mg IVPUSH Q6H-IV [facility] Last Admin: 04/21/17 02:29 Dose: 10 mg Metoprolol Tartrate (Lopressor -) 12.5 mg PO BID [facility] Last Admin: 04/20/17 21:50 Dose: 12.5 mg Metronidazole (Flagyl -) 500 mg PO TID [facility] Last Admin: 04/21/17 06:34 Dose: 500 mg Nystatin (Nystatin Oral Suspension -) 500,000 units PO Q6HPO [facility] Ondansetron HCl (Zofran Injection) 8 mg IVPB BID [facility] Last Admin: 04/20/17 23:39 Dose: 8 mg Pantoprazole Sodium (Protonix -) 20 mg PO DAILY [facility] Polyethylene Glycol (Miralax (For Daily Use) -) 17 gm PO DAILY [facility] Today Labs - pending. Microbiology 04/18/17 18:50 Blood Culture - Preliminary Blood - Arterial NO GROWTH OBTAINED AFTER 48 HOURS, INCUBATION TO CONTINUE FOR 3 DAYS. 04/18/17 18:45 Blood Culture - Preliminary Blood - Arterial NO GROWTH OBTAINED AFTER 48 HOURS, INCUBATION TO CONTINUE FOR 3 DAYS. 04/18/17 21:53 Urine Culture - Final Urine - Urine Clean Catch NO GROWTH OBTAINED PHYSICAL EXAM awake/comfortable cvs-s1s2 lungs- diminished at bases ABD- Soft, obese, nt LE- no edema neuro- alert/ awake A/P dysphagia-- orophyrangeal- all work up negative so far. Including EGD/ CT chest and head as well as swelling evaluation GI to follow motility studies ? aspiration pneumonia continue abx per i/d cultures pending f/u labs c diff pending will follow continue hydration Discussed with nursing staff will follow Problem List - Problems (1) Anemia Code(s): D64.9 - ANEMIA, UNSPECIFIED Qualifiers: Bone marrow failure anemia type: pancytopenia, antineoplastic chemotherapy- induced (2) SOB (shortness of breath) Code(s): R06.02 - SHORTNESS OF BREATH (3) Atrial fibrillation Code(s): I48.91 - UNSPECIFIED ATRIAL FIBRILLATION Qualifiers: Atrial fibrillation type: paroxysmal Qualified Code(s): I48.0 - Paroxysmal atrial fibrillation (4) Multiple myeloma in remission Code(s): C90.01 - MULTIPLE MYELOMA IN REMISSION
[2017-04-21 08:22] LABS: ALBUMIN 1.9 g/dl (3.4-5.0); ANION GAP 8 (8-16); BILIRUBIN,TOTAL 0.5 mg/dL (0.2-1.0); BLOOD UREA NITROGEN 5 mg/dL (7-18); CHLORIDE 115 mmol/L (98-107); CO2 23 mmol/L (21-32); GLUCOSE,RANDOM 106 mg/dL (74-106); MAGNESIUM 1.9 mg/dL (1.8-2.4); POTASSIUM 3.2 mmol/L (3.5-5.1); SGOT/AST 48 U/L (15-37); SGPT/ALT 28 U/L (12-78); SODIUM 146 mmol/L (136-145); TOT PROT 4.6 g/dl (6.4-8.2)
[2017-04-21 08:23] LABS: ALK PHOS 63 U/L (45-117)
[2017-04-21] MEDS: DOCUSATE SODIUM 100 MG CAPSULE (FP) PO SCH ×2 (10:34→22:02)
[2017-04-21] MEDS: POLYETHYLENE GLYCOL 3350 119 GM BTL PO SCH (10:35)
[2017-04-21] MEDS: ONDANSETRON 4 MG/2 ML VIAL IVPB SCH ×2 (10:36→22:55)
[2017-04-21] MEDS: METOPROLOL TARTRATE 25 MG TABLET (FP) PO SCH ×2 (10:44→22:02)
[2017-04-21] MEDS: GABAPENTIN 400 MG CAPSULE (FP) PO SCH ×2 (10:44→22:02)
[2017-04-21] MEDS: PANTOPRAZOLE 20 MG TABLET (FP) PO SCH (10:45)
[2017-04-21] MEDS: VANCOMYCIN 1,000 MG in DEXTROSE 5%-WATER - 250 ML IVPB SCH ×2 (11:37→11:49)
--- NOTE | 2017-04-21 12:46 | PN ---
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, Physician History of Present Illness: More awake. Complains of inability to swallow Complains of generalized weakness Temps down Afebrile Leukopenic Cultures prelim no growth, remains on Vancomycin/ cefepime Less diarrhea C diff (-) - Current Medication List Current Medications: Active Medications Acetaminophen (Tylenol -) 650 mg PO Q6H PRN PRN Reason: FEVER OR PAIN Apixaban (Eliquis -) 5 mg PO BID [facility] Atorvastatin Calcium (Lipitor -) 40 mg PO HS [facility] Docusate Sodium (Colace -) 100 mg PO BID [facility] Last Admin: 04/21/17 10:34 Dose: Not Given Gabapentin (Neurontin -) 400 mg PO BID [facility] Last Admin: 04/21/17 10:44 Dose: Not Given Vancomycin HCl 1,000 mg/ (Dextrose) 250 mls @ 166.667 mls/hr IVPB Q12H [facility] Last Admin: 04/21/17 11:49 Dose: Not Given Cefepime HCl 2 gm/ Dextrose 100 mls @ 200 mls/hr IVPB Q8H-IV [facility] Last Admin: 04/21/17 10:35 Dose: 200 mls/hr Potassium Chloride/Dextrose/Sod Cl (D5-1/2ns+20 Meq Kcl -) 20 meq in 1,000 mls @ 100 mls/hr IV ASDIR [facility] Last Admin: 04/21/17 11:37 Dose: Not Given Insulin Aspart (Novolog Vial Sliding Scale -) 1 vial SQ TIDAC [facility] PRN Reason: Protocol Metoclopramide HCl (Reglan Injection -) 10 mg IVPUSH Q6H-IV [facility] Last Admin: 04/21/17 10:35 Dose: Not Given Metoprolol Tartrate (Lopressor -) 12.5 mg PO BID [facility] Last Admin: 04/21/17 10:44 Dose: Not Given Metronidazole (Flagyl -) 500 mg PO TID [facility] Last Admin: 04/21/17 06:34 Dose: 500 mg Nystatin (Nystatin Oral Suspension -) 500,000 units PO Q6HPO [facility] Ondansetron HCl (Zofran Injection) 8 mg IVPB BID [facility] Last Admin: 04/21/17 10:36 Dose: 8 mg Pantoprazole Sodium (Protonix -) 20 mg PO DAILY [facility] Last Admin: 04/21/17 10:45 Dose: Not Given Polyethylene Glycol (Miralax (For Daily Use) -) 17 gm PO DAILY [facility] Last Admin: 04/21/17 10:35 Dose: Not Given - Objective Vital Signs: Vital Signs Temperature 98 F 04/21/17 11:02 Pulse Rate 90 04/21/17 11:02 Respiratory Rate 18 04/21/17 11:02 Blood Pressure 99/60 04/21/17 11:02 O2 Sat by Pulse Oximetry (%) 95 04/20/17 21:00 Constitutional: Yes: No Distress Eyes: Yes: Conjunctiva Clear HENT: Yes: Other (tongue coated) Cardiovascular: Yes: Regular Rate and Rhythm, S1, S2 Respiratory: Yes: Diminished Gastrointestinal: Yes: Normal Bowel Sounds, Soft Edema: No Labs: CBC, BMP 04/21/17 06:30 04/21/17 06:30 INR, PTT INR 1.73 (0.82-1.09) H D 04/08/17 13:10 Assessment/Plan LLL pneumonia Myeloma s/p stem cell transplant 2014 Leukopenia ? Vancomycin Diabetes mellitus cultures no growth Continue cefepime D/C Vancomycin
[2017-04-21] MEDS: APIXABAN 5 MG TABLET PO SCH ×2 (12:51→22:02)
--- NOTE | 2017-04-21 13:48 | PN ---
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 (short form) - Note 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: PULMONARY VSS/AFEBRILE AWAKE/ALERT ASPIRATION OF BARIUM TO LEFT MAIN STEM CHART REVIEWED NONPRODUCTIVE COUGH PALE/ANICTERIC DIMINISHED B/L BREATH SOUNDS S1S2 OBESE NO EDEMA LABS/MEDS/NOTES/IMAGES/MICRO REVIEWED IMP PNEUMONIA/UTI/ASPIRATION MM S/P STEM CELL TRANSPLANT ANEMIA DYSPHAGIA LV DIASTOLIC DYSFUNCTION ASHD PAF ON ELIQUIS HTN NIIDM PERIPHERAL NEUROPATHY PLAN WOULD SUGGEST NPO FOR NOW IV FLUIDS/GLYCEMIC CONTROL/O2 SUPPLEMENTATION HAVE REQUESTED JOVANI MITCHELL TO RE-TRELL OJEDA MD
--- NOTE | 2017-04-21 15:37 | PN ---
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, Physician History of Present Illness: Continued dysphagia despite standing IV Reglan and Zofran and loose stools, c diff negative. - Current Medication List Current Medications: Active Medications Acetaminophen (Tylenol -) 650 mg PO Q6H PRN PRN Reason: FEVER OR PAIN Apixaban (Eliquis -) 5 mg PO BID [facility] Last Admin: 04/21/17 12:51 Dose: Not Given Atorvastatin Calcium (Lipitor -) 40 mg PO HS [facility] Docusate Sodium (Colace -) 100 mg PO BID [facility] Last Admin: 04/21/17 10:34 Dose: Not Given Gabapentin (Neurontin -) 400 mg PO BID [facility] Last Admin: 04/21/17 10:44 Dose: Not Given Cefepime HCl 2 gm/ Dextrose 100 mls @ 200 mls/hr IVPB Q8H-IV [facility] Last Admin: 04/21/17 10:35 Dose: 200 mls/hr Potassium Chloride/Dextrose/Sod Cl (D5-1/2ns+20 Meq Kcl -) 20 meq in 1,000 mls @ 100 mls/hr IV ASDIR [facility] Last Admin: 04/21/17 11:37 Dose: Not Given Insulin Aspart (Novolog Vial Sliding Scale -) 1 vial SQ TIDAC [facility] PRN Reason: Protocol Last Admin: 04/21/17 13:33 Dose: Not Given Metoclopramide HCl (Reglan Injection -) 10 mg IVPUSH Q6H-IV [facility] Last Admin: 04/21/17 15:26 Dose: 10 mg Metoprolol Tartrate (Lopressor -) 12.5 mg PO BID [facility] Last Admin: 04/21/17 10:44 Dose: Not Given Metronidazole (Flagyl -) 500 mg PO TID [facility] Last Admin: 04/21/17 15:33 Dose: Not Given Nystatin (Nystatin Oral Suspension -) 500,000 units PO Q6HPO [facility] Last Admin: 04/21/17 15:32 Dose: Not Given Ondansetron HCl (Zofran Injection) 8 mg IVPB BID [facility] Last Admin: 04/21/17 10:36 Dose: 8 mg Pantoprazole Sodium (Protonix -) 20 mg PO DAILY [facility] Last Admin: 04/21/17 10:45 Dose: Not Given Polyethylene Glycol (Miralax (For Daily Use) -) 17 gm PO DAILY [facility] Last Admin: 04/21/17 10:35 Dose: Not Given - Objective Vital Signs: Vital Signs Temperature 98.3 F 04/21/17 15:26 Pulse Rate 95 H 04/21/17 15:26 Respiratory Rate 18 04/21/17 15:26 Blood Pressure 95/55 04/21/17 15:26 O2 Sat by Pulse Oximetry (%) 95 04/20/17 21:00 Constitutional: Yes: No Distress, Calm Neck: Yes: Supple Cardiovascular: Yes: Regular Rate and Rhythm Respiratory: Yes: Regular, Diminished Gastrointestinal: Yes: Soft, Hypoactive Bowel Sounds Edema: No Labs: CBC, BMP 04/21/17 06:30 04/21/17 06:30 INR, PTT INR 1.73 (0.82-1.09) H D 04/08/17 13:10 Problem List - Problems (1) SOB (shortness of breath) Code(s): R06.02 - SHORTNESS OF BREATH (2) Atrial fibrillation Code(s): I48.91 - UNSPECIFIED ATRIAL FIBRILLATION Qualifiers: Atrial fibrillation type: paroxysmal Qualified Code(s): I48.0 - Paroxysmal atrial fibrillation (3) Diastolic dysfunction Code(s): I51.9 - HEART DISEASE, UNSPECIFIED (4) Hypokalemia Code(s): E87.6 - HYPOKALEMIA (5) Multiple myeloma in remission Code(s): C90.01 - MULTIPLE MYELOMA IN REMISSION (6) Thrombocytopenia Code(s): D69.6 - THROMBOCYTOPENIA, UNSPECIFIED (7) Anemia Code(s): D64.9 - ANEMIA, UNSPECIFIED Qualifiers: Bone marrow failure anemia type: pancytopenia, antineoplastic chemotherapy- induced (8) Dysphagia Code(s): R13.10 - DYSPHAGIA, UNSPECIFIED Qualifiers: Dysphagia type: other dysphagia Qualified Code(s): R13.19 - Other dysphagia Assessment/Plan 1. Progressive dyspnea on exertion and fatigue 2. Symptomatic anemia post transfusion 3. Paroxysmal atrial fibrillation with periods of rapid ventricular response currently in sinus rhythm [id number] score of 3 - on A/C with NOAC (Eliquis) 4. Coronary artery disease, angina pectoris 5. LV diastolic dysfunction with chronic class 0-I NYHA classification LV failure, compensated/euvolemic 6. Hypertension 7. DM 8. Hypercholesterolemia 9. Thrombocytopenia, resolved 10. History of multiple myeloma post stem cell transplant 11. History of peripheral neuropathy 12. Dysphagia with delayed esophageal emptying 13. Recurrent fever - LLL asp pneumonia PLAN: 1. Continued dysphagia and NPO despite standing IV Reglan and Zofran, consider IV erythromycin as prokinetic agent 2. Antibiotics as per the ID, replete K 3. OP Esophageal manometry
--- NOTE | 2017-04-21 16:14 | PN ---
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, SUCTION ROLLER - Note 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: 71 year old male, with a significant past medical history of paroxysmal afib ( on coumadin), diabetes, multiple myeloma, HTN, ASHD, diastolic dysfunction, hyperlipidemia, anemia, thrombocytopenia with worsening SOB, generalized weakness. Pt seen at bedside for follow up to swallow eval and MBS on . Pt is currently unable to swallow. Possible PNA? Pt given trials of ice chips via spoon with assistance revealed good acceptance , adequate bolus control and transfer. Pharyngeal swallow appears timely with positive s/s of aspiration. Coughing increased respiration and wet voicing after the swallow. Pt refused all other po trials. Recommendations: Continue NPO status at this time. Consider ENT consultation to rule out laryngeal abnormalities. Consider alternate method for providing medication and hydration. Results given verbally to clinic specialist Pat and to pcp via chart. SUCTION ROLLER will follow up to attempt po trials.
--- NOTE | 2017-04-21 17:04 | PN ---
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 (short form) - Note 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: Patient seen and examined chart reviewed. continues to have sx. Esophagogram reviewed O/E: Constitutional: in NAD HENT: No: Nasal Congestion, Neck: No: Lymphadenopathy, Tenderness, Thyromegaly Cardiovascular: Yes: Regular Rate and Rhythm, Murmur Respiratory: Yes: some LLL rales Gastrointestinal: Yes: Normal Bowel Sounds, Soft. No: Hepatomegaly, Splenomegaly, Tenderness Musculoskeletal: Yes: Back Pain Extremities: No: Cold, Cyanosis Edema: No Peripheral Pulses WNL: No Last Vital Signs Temp Pulse Resp BP Pulse Ox 98.3 F 95 H 18 95/55 95 04/21/17 15:26 04/21/17 15:26 04/21/17 15:26 04/21/17 15:26 04/20/17 21:00 CBC, BMP 04/21/17 06:30 04/21/17 06:30 Current Medications Generic Name Dose Route Start Last Admin Trade Name Freq PRN Reason Stop Dose Admin Acetaminophen 650 mg 04/21/17 07:47 Tylenol - PO Q6H PRN FEVER OR PAIN Apixaban 5 mg 04/21/17 10:00 04/21/17 12:51 Eliquis - PO Not Given BID [facility] Atorvastatin Calcium 40 mg 04/21/17 22:00 Lipitor - PO HS [facility] Docusate Sodium 100 mg 04/21/17 10:00 04/21/17 10:34 Colace - PO Not Given BID [facility] Gabapentin 400 mg 04/21/17 10:00 04/21/17 10:44 Neurontin - PO Not Given BID [facility] Cefepime HCl 2 gm/ Dextrose 100 mls @ 200 mls/hr 04/20/17 10:00 04/21/17 10: 35 IVPB 200 mls/hr Q8H-IV [facility] Administration Potassium Chloride/Dextrose/Sod Cl 20 meq in 1,000 mls @ 100 mls/hr 04/20/17 10:00 04/21/17 11:37 D5-1/2ns+20 Meq Kcl - IV Not Given ASDIR [facility] Insulin Aspart 1 vial 04/21/17 11:00 04/21/17 13:33 Novolog Vial Sliding Scale - SQ Not Given TIDAC [facility] Protocol Metoclopramide HCl 10 mg 04/18/17 14:57 04/21/17 15:26 Reglan Injection - IVPUSH 10 mg Q6H-IV [facility] Administration Metoprolol Tartrate 12.5 mg 04/19/17 13:31 04/21/17 10:44 Lopressor - PO Not Given BID [facility] Metronidazole 500 mg 04/20/17 14:00 04/21/17 15:33 Flagyl - PO Not Given TID [facility] Nystatin 500,000 units 04/21/17 12:00 04/21/17 15:32 Nystatin Oral Suspension - PO Not Given Q6HPO [facility] Ondansetron HCl 8 mg 04/15/17 18:15 04/21/17 10:36 Zofran Injection IVPB 8 mg BID [facility] Administration Pantoprazole Sodium 20 mg 04/21/17 10:00 04/21/17 10:45 Protonix - PO Not Given DAILY [facility] Polyethylene Glycol 17 gm 04/21/17 10:00 04/21/17 10:35 Miralax (For Daily Use) - PO Not Given DAILY [facility] abx per ID likely aspiration GI f/u, cardiology note reviewed ?IV erythro MM is in Remission ( last myeloma labs from office ) In CR f/u CBC, platelets recovered will follow. d/w KASSANDRA
[2017-04-21] MEDS: ATORVASTATIN CA 40 MG TABLET (FP) PO SCH (22:02)
[2017-04-22] MEDS ORDERED: PT OWN MED DRAWER 7, Y5N ONE ×4 (01:53→17:39)
[2017-04-22] MEDS: CEFEPIME 2 GM in DEXTROSE 5%-WATER - 100 ML IVPB SCH ×3 (01:56→17:40)
[2017-04-22] MEDS: METOCLOPRAMIDE HCL INJECTION 10 MG/2 ML VIAL IVPUSH SCH ×3 (02:03→22:35)
[2017-04-22] MEDS: metroNIDAZOLE 250 MG TABLET PO SCH (06:05)
[2017-04-22] MEDS: NYSTATIN 500,000 UNITS/5 ML SUSPENSION PO SCH (06:05)
[2017-04-22] MEDS: INSULIN SLIDING SCALE (NOVOLOG) 1 VIAL SQ SCH ×3 (06:33→16:53)
[2017-04-22 08:00] LABS: HEMATOCRIT 35.3 % (35.4-49); HEMOGLOBIN 11.1 GM/dL (11.7-16.9); MCH 32.1 pg (25.7-33.7); MCHC 31.3 g/dl (32.0-35.9); MEAN CELL VOLUME 102.6 fl (80-96); MEAN PLT VOLUME 8.5 fl (7.5-11.1); PLATELET COUNT 171 K/MM3 (134-434); RBC 3.44 M/mm3 (4.00-5.60); RDW 18.8 % (11.9-15.9); WHITE BLOOD COUNT 6.2 K/mm3 (4.0-10.0)
[2017-04-22 09:02] LABS: ALBUMIN 2.4 g/dl (3.4-5.0); ANION GAP 15 (8-16); BLOOD UREA NITROGEN 6 mg/dL (7-18); CALCIUM 7.5 mg/dL (8.5-10.1); CHLORIDE 113 mmol/L (98-107); CO2 17 mmol/L (21-32); CREATININE 1.2 mg/dL (0.7-1.3); GLUCOSE,RANDOM 115 mg/dL (74-106); MAGNESIUM 1.9 mg/dL (1.8-2.4); POTASSIUM 3.1 mmol/L (3.5-5.1); SGOT/AST 58 U/L (15-37); SGPT/ALT 35 U/L (12-78); SODIUM 145 mmol/L (136-145)
[2017-04-22 09:04] LABS: ALK PHOS 77 U/L (45-117); BILIRUBIN,TOTAL 0.5 mg/dL (0.2-1.0); TOT PROT 5.7 g/dl (6.4-8.2)
--- NOTE | 2017-04-22 09:52 | PN ---
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, Physician History of Present Illness: Still with complaints of inability to swallow + cough noted Breathing non-labored Temps down Afebrile WBC improved off vancomycin Cultures no growth, remains on cefepime Less diarrhea C diff (-) - Current Medication List Current Medications: Active Medications Acetaminophen (Tylenol -) 650 mg PO Q6H PRN PRN Reason: FEVER OR PAIN Apixaban (Eliquis -) 5 mg PO BID [facility] Last Admin: 04/21/17 22:02 Dose: Not Given Atorvastatin Calcium (Lipitor -) 40 mg PO HS [facility] Last Admin: 04/21/17 22:02 Dose: Not Given Docusate Sodium (Colace -) 100 mg PO BID [facility] Last Admin: 04/21/17 22:02 Dose: Not Given Gabapentin (Neurontin -) 400 mg PO BID [facility] Last Admin: 04/21/17 22:02 Dose: Not Given Cefepime HCl 2 gm/ Dextrose 100 mls @ 200 mls/hr IVPB Q8H-IV [facility] Last Admin: 04/22/17 01:56 Dose: 200 mls/hr Potassium Chloride/Dextrose/Sod Cl (D5-1/2ns+20 Meq Kcl -) 20 meq in 1,000 mls @ 100 mls/hr IV ASDIR [facility] Last Admin: 04/21/17 22:01 Dose: 100 mls/hr Insulin Aspart (Novolog Vial Sliding Scale -) 1 vial SQ TIDAC [facility] PRN Reason: Protocol Last Admin: 04/22/17 06:33 Dose: Not Given Metoclopramide HCl (Reglan Injection -) 10 mg IVPUSH Q6H-IV [facility] Last Admin: 04/22/17 02:03 Dose: 10 mg Metoprolol Tartrate (Lopressor -) 12.5 mg PO BID [facility] Last Admin: 04/21/17 22:02 Dose: Not Given Metronidazole (Flagyl -) 500 mg PO TID [facility] Last Admin: 04/22/17 06:05 Dose: Not Given Nystatin (Nystatin Oral Suspension -) 500,000 units PO Q6HPO [facility] Last Admin: 04/22/17 06:05 Dose: Not Given Ondansetron HCl (Zofran Injection) 8 mg IVPB BID [facility] Last Admin: 04/21/17 22:55 Dose: 8 mg Pantoprazole Sodium (Protonix -) 20 mg PO DAILY [facility] Last Admin: 04/21/17 10:45 Dose: Not Given Polyethylene Glycol (Miralax (For Daily Use) -) 17 gm PO DAILY [facility] Last Admin: 04/21/17 10:35 Dose: Not Given - Objective Vital Signs: Vital Signs Temperature 98.7 F 04/22/17 05:00 Pulse Rate 101 H 04/22/17 05:00 Respiratory Rate 22 04/22/17 05:00 Blood Pressure 105/66 04/22/17 05:00 O2 Sat by Pulse Oximetry (%) 96 04/21/17 21:00 Constitutional: Yes: No Distress Cardiovascular: Yes: Regular Rate and Rhythm, S1, S2 Respiratory: Yes: Rhonchi, Other (+ wheeze L upper lung field) Gastrointestinal: Yes: Normal Bowel Sounds, Soft. No: Tenderness Edema: Yes Edema: LLE: 1+, RLE: 1+ Labs: CBC, BMP 04/22/17 06:00 04/22/17 06:00 INR, PTT INR 1.73 (0.82-1.09) H D 04/08/17 13:10 Assessment/Plan LLL pneumonia Myeloma s/p stem cell transplant 201 Leukopenia ? Vancomycin WBC improved off vancomycin Diabetes mellitus cultures no growth Continue cefepime
[2017-04-22] MEDS ORDERED: LOPERAMIDE HCL 2 MG CAPSULE PO ONE ×2 (11:18→15:00)
--- NOTE | 2017-04-22 11:27 | PN ---
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 (short form) - Note 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: pt seen/ examined. comfortable all f/u noted not eating denies pain - dont want to eat- swallowing eval/ f/u noted + diarrhea c diff -ve denies abd pain off vanco on cefepine and flagyl Vital Signs Temp 98 F 04/22/17 10:41 Pulse 100 H 04/22/17 10:41 Resp 18 04/22/17 10:41 BP 126/43 04/22/17 10:41 Pulse Ox 97 04/22/17 10:06 Intake & Output 04/21/17 04/21/17 04/22/17 11:59 23:59 11:59 Intake Total 410 1200 Balance 410 1200 Intake: IV 1100 D5-1/2NS+20 MEQ KCL - 20 1100 meq In 1,000 ml @ 100 mls /hr IV ASDIR [facility] Rx#: [id number] IVPB 270 100 Oral 140 Other: Voiding Method Toilet Toilet # Unmeasured Voids Void 3 Bowel Movement Yes Yes: 7 # Bowel Movements 4 7 Active Medications Acetaminophen (Tylenol -) 650 mg PO Q6H PRN PRN Reason: FEVER OR PAIN Apixaban (Eliquis -) 5 mg PO BID [facility] Last Admin: 04/21/17 22:02 Dose: Not Given Atorvastatin Calcium (Lipitor -) 40 mg PO HS [facility] Last Admin: 04/21/17 22:02 Dose: Not Given Gabapentin (Neurontin -) 400 mg PO BID [facility] Last Admin: 04/21/17 22:02 Dose: Not Given Cefepime HCl 2 gm/ Dextrose 100 mls @ 200 mls/hr IVPB Q8H-IV [facility] Last Admin: 04/22/17 10:40 Dose: 200 mls/hr Potassium Chloride/Dextrose/Sod Cl (D5-1/2ns+20 Meq Kcl -) 20 meq in 1,000 mls @ 100 mls/hr IV ASDIR [facility] Last Admin: 04/21/17 22:01 Dose: 100 mls/hr Erythromycin Lactobionate 500 (mg/ Sodium Chloride) 150 mls @ 150 mls/hr IVPB Q6H-IV [facility] Insulin Aspart (Novolog Vial Sliding Scale -) 1 vial SQ TIDAC [facility] PRN Reason: Protocol Last Admin: 04/22/17 06:33 Dose: Not Given Loperamide HCl (Imodium -) 4 mg PO ONCE ONE Stop: 04/22/17 11:19 Metoprolol Tartrate (Lopressor -) 12.5 mg PO BID [facility] Last Admin: 04/21/17 22:02 Dose: Not Given Pantoprazole Sodium (Protonix -) 20 mg PO DAILY [facility] Last Admin: 04/21/17 10:45 Dose: Not Given CBC, BMP 04/22/17 06:00 04/22/17 06:00 PHYSICAL EXAM awake/comfortable cvs-s1s2 lungs- diminished at bases ABD- Soft, obese, nt. bs + LE- no edema neuro- alert/ awake. A/P dysphagia-- orophyrangeal- all work up negative so far. Including EGD/ CT chest and head as well as swelling evaluation GI to follow motility studies ? aspiration pneumonia continue abx per i/d cultures -ve so far c diff -ve d/c falgyl d/c laxatives immodium x 1 dose today continue hydration for now may need peg if unable to eat d/c reglan- no improvement trial of reglan will follow Discussed with nursing staff as well as Dr. Velazquez today Problem List - Problems (1) Anemia Code(s): D64.9 - ANEMIA, UNSPECIFIED Qualifiers: Bone marrow failure anemia type: pancytopenia, antineoplastic chemotherapy- induced (2) SOB (shortness of breath) Code(s): R06.02 - SHORTNESS OF BREATH (3) Atrial fibrillation Code(s): I48.91 - UNSPECIFIED ATRIAL FIBRILLATION Qualifiers: Atrial fibrillation type: paroxysmal Qualified Code(s): I48.0 - Paroxysmal atrial fibrillation (4) Multiple myeloma in remission Code(s): C90.01 - MULTIPLE MYELOMA IN REMISSION
[2017-04-22] MEDS ORDERED: KCL 10 MEQ IVPB 10 MEQ/100 ML INFUS.BAG IVPB SCH (11:30)
[2017-04-22] MEDS ORDERED: POTASSIUM CHLORIDE 30 MEQ in SODIUM CHLORIDE 300 ML IVPB ONE (11:45)
--- NOTE | 2017-04-22 12:18 | PN ---
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 (short form) - Note 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: PULMONARY VSS/AFEBRILE AWAKE/ALERT ASPIRATION OF BARIUM TO LEFT MAIN STEM CHART REVIEWED NONPRODUCTIVE COUGH WAS REFUSING MEDS/DIET ABLE TO DRINK WATER WITHOUT COUGHING OR SIGNS OF ASPIRATION PALE/ANICTERIC DIMINISHED B/L BREATH SOUNDS S1S2 OBESE NO EDEMA LABS/MEDS/NOTES/IMAGES/MICRO REVIEWED IMP PNEUMONIA/UTI/ASPIRATION MM S/P STEM CELL TRANSPLANT ANEMIA DYSPHAGIA LV DIASTOLIC DYSFUNCTION ASHD PAF ON ELIQUIS HTN NIIDM PERIPHERAL NEUROPATHY PLAN IV FLUIDS/GLYCEMIC CONTROL/O2 SUPPLEMENTATION WOULD ENCOURAGE COMPLIANCE WITH MEDS CONSIDER CHOPPED DIET WITH THICKENED LIQUIDS Bonnie OJEDA MD
--- NOTE | 2017-04-22 13:11 | PN ---
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, Physician History of Present Illness: Await oral challenge now on IV erythromycin, undergoing PT. - Current Medication List Current Medications: Active Medications Acetaminophen (Tylenol -) 650 mg PO Q6H PRN PRN Reason: FEVER OR PAIN Apixaban (Eliquis -) 5 mg PO BID [facility] Last Admin: 04/21/17 22:02 Dose: Not Given Atorvastatin Calcium (Lipitor -) 40 mg PO HS [facility] Last Admin: 04/21/17 22:02 Dose: Not Given Gabapentin (Neurontin -) 400 mg PO BID [facility] Last Admin: 04/21/17 22:02 Dose: Not Given Cefepime HCl 2 gm/ Dextrose 100 mls @ 200 mls/hr IVPB Q8H-IV [facility] Last Admin: 04/22/17 10:40 Dose: 200 mls/hr Potassium Chloride/Dextrose/Sod Cl (D5-1/2ns+20 Meq Kcl -) 20 meq in 1,000 mls @ 100 mls/hr IV ASDIR [facility] Last Admin: 04/21/17 22:01 Dose: 100 mls/hr Erythromycin Lactobionate 500 (mg/ Sodium Chloride) 150 mls @ 150 mls/hr IVPB Q6H-IV [facility] Potassium Chloride 30 meq/ (Sodium Chloride) 315 mls @ 88.333 mls/hr IVPB ONCE ONE Stop: 04/22/17 15:18 Insulin Aspart (Novolog Vial Sliding Scale -) 1 vial SQ TIDAC [facility] PRN Reason: Protocol Last Admin: 04/22/17 06:33 Dose: Not Given Metoprolol Tartrate (Lopressor -) 12.5 mg PO BID [facility] Last Admin: 04/21/17 22:02 Dose: Not Given Pantoprazole Sodium (Protonix -) 20 mg PO DAILY [facility] Last Admin: 04/21/17 10:45 Dose: Not Given - Objective Vital Signs: Vital Signs Temperature 98 F 04/22/17 10:41 Pulse Rate 100 H 04/22/17 10:41 Respiratory Rate 18 04/22/17 10:41 Blood Pressure 126/43 04/22/17 10:41 O2 Sat by Pulse Oximetry (%) 97 04/22/17 10:06 Constitutional: Yes: No Distress, Calm Neck: Yes: Supple Cardiovascular: Yes: Regular Rate and Rhythm Respiratory: Yes: Regular, Diminished Gastrointestinal: Yes: Normal Bowel Sounds, Soft, Abdomen, Obese Edema: No Labs: CBC, BMP 04/22/17 06:00 04/22/17 06:00 INR, PTT INR 1.73 (0.82-1.09) H D 04/08/17 13:10 Problem List - Problems (1) SOB (shortness of breath) Code(s): R06.02 - SHORTNESS OF BREATH (2) Atrial fibrillation Code(s): I48.91 - UNSPECIFIED ATRIAL FIBRILLATION Qualifiers: Atrial fibrillation type: paroxysmal Qualified Code(s): I48.0 - Paroxysmal atrial fibrillation (3) Diastolic dysfunction Code(s): I51.9 - HEART DISEASE, UNSPECIFIED (4) Hypokalemia Code(s): E87.6 - HYPOKALEMIA (5) Multiple myeloma in remission Code(s): C90.01 - MULTIPLE MYELOMA IN REMISSION (6) Anemia Code(s): D64.9 - ANEMIA, UNSPECIFIED Qualifiers: Bone marrow failure anemia type: pancytopenia, antineoplastic chemotherapy- induced (7) Dysphagia Code(s): R13.10 - DYSPHAGIA, UNSPECIFIED Qualifiers: Dysphagia type: other dysphagia Qualified Code(s): R13.19 - Other dysphagia Assessment/Plan 1. Progressive dyspnea on exertion and fatigue 2. Symptomatic anemia post transfusion 3. Paroxysmal atrial fibrillation with periods of rapid ventricular response currently in sinus rhythm [id number] score of 3 - on A/C with NOAC (Eliquis) 4. Coronary artery disease, angina pectoris 5. LV diastolic dysfunction with chronic class 0-I NYHA classification LV failure, compensated/euvolemic 6. Hypertension 7. DM 8. Hypercholesterolemia 9. Thrombocytopenia, resolved 10. History of multiple myeloma post stem cell transplant 11. History of peripheral neuropathy 12. Dysphagia with delayed esophageal emptying 13. Recurrent fever - LLL asp pneumonia PLAN: 1. Placed on IV erythromycin as prokinetic agent, oral challenge with water and ice chips with diet advancement as tolerated 2. Antibiotics as per the ID, replete K 3. OP Esophageal manometry
[2017-04-22] MEDS: D5-1/2NS+20 MEQ KCL - 20 MEQ/1,000 ML INFUS.BAG IV SCH (13:57)
[2017-04-22] MEDS: GABAPENTIN 400 MG CAPSULE (FP) PO SCH ×2 (14:15→22:16)
[2017-04-22] MEDS: PANTOPRAZOLE 20 MG TABLET (FP) PO SCH (14:15)
[2017-04-22] MEDS: METOPROLOL TARTRATE 25 MG TABLET (FP) PO SCH ×2 (14:15→22:15)
[2017-04-22] MEDS: ERYTHROMYCIN IVPB SCH ×3 (14:16→15:54)
[2017-04-22] MEDS: SODIUM CHLORIDE IVPB SCH ×3 (14:16→15:54)
[2017-04-22] MEDS: APIXABAN 5 MG TABLET PO SCH ×2 (14:16→22:15)
[2017-04-22] MEDS: ONDANSETRON 4 MG/2 ML VIAL IVPB SCH (14:27)
[2017-04-22] MEDS: POLYETHYLENE GLYCOL 3350 119 GM BTL PO SCH (14:28)
[2017-04-22] MEDS: DOCUSATE SODIUM 100 MG CAPSULE (FP) PO SCH (14:29)
[2017-04-22] MEDS ORDERED: CASPOFUNGIN ACETATE 70 MG in SODIUM CHLORIDE 250 ML IVPB ONE (19:00)
[2017-04-22] MEDS ORDERED: METOCLOPRAMIDE HCL INJECTION 10 MG/2 ML VIAL IVPUSH SCH (20:00)
[2017-04-22] MEDS: ATORVASTATIN CA 40 MG TABLET (FP) PO SCH (22:15)
--- NOTE | 2017-04-22 23:27 | PN ---
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 (short form) - Note 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: Patient seen and examined Lethargic Nursing staff reports cough Tmax 99.7, VSS thrush+ Cor: RSR, No murmurs, No gallops Lungs: decreased at bases Abd: Soft, Normal bowel sounds, No organomegaly Ext:edema Abnormal Lab Results 04/22/17 04/22/17 06:00 06:00 RBC 3.44 L Hgb 11.1 L D Hct 35.3 L MCV 102.6 H MCHC 31.3 L RDW 18.8 H Potassium 3.1 L Chloride 113 H Carbon Dioxide 17 L D BUN 6 L Random Glucose 115 H Calcium 7.5 L AST 58 H D Total Protein 5.7 L D Albumin 2.4 L D Home Medication List Medication Instructions Recorded Confirmed Type Atorvastatin Ca [Lipitor] 40 mg PO HS 10/04/16 04/08/17 History Gabapentin 400 mg PO BID 10/04/16 04/08/17 History Oxycodone Sr [Oxycontin] 10 mg PO Q6H PRN 10/04/16 04/08/17 History Active Medications Generic Name Dose Route Start Last Admin Trade Name Freq PRN Reason Stop Dose Admin Acetaminophen 650 mg 04/21/17 07:47 Tylenol - PO Q6H PRN FEVER OR PAIN Apixaban 5 mg 04/21/17 10:00 04/22/17 22:15 Eliquis - PO Not Given BID [facility] Atorvastatin Calcium 40 mg 04/21/17 22:00 04/22/17 22:15 Lipitor - PO Not Given HS [facility] Gabapentin 400 mg 04/21/17 10:00 04/22/17 22:16 Neurontin - PO Not Given BID [facility] Cefepime HCl 2 gm/ Dextrose 100 mls @ 200 mls/hr 04/20/17 10:00 04/23/17 02: 07 IVPB 200 mls/hr Q8H-IV [facility] Administration Potassium Chloride/Dextrose/Sod Cl 20 meq in 1,000 mls @ 100 mls/hr 04/20/17 10:00 04/23/17 00:31 D5-1/2ns+20 Meq Kcl - IV 100 mls/hr ASDIR [facility] Administration Insulin Aspart 1 vial 04/21/17 11:00 04/23/17 06:28 Novolog Vial Sliding Scale - SQ Not Given TIDAC [facility] Protocol Metoclopramide HCl 10 mg 04/22/17 22:00 04/22/17 22:35 Reglan Injection - IVPUSH 10 mg QID [facility] Administration Metoprolol Tartrate 12.5 mg 04/19/17 13:31 04/22/17 22:15 Lopressor - PO Not Given BID [facility] Pantoprazole Sodium 20 mg 04/21/17 10:00 04/22/17 14:15 Protonix - PO Not Given DAILY [facility] A/P 71 y/o patient with myeloma, on maintenance dick/dex, now with low grade fevers, aspiration , / lethargy NPO On cefepime will add caspofungin for thrush neuro consult will discuss with teams involved
[2017-04-23] MEDS: D5-1/2NS+20 MEQ KCL - 20 MEQ/1,000 ML INFUS.BAG IV SCH ×4 (00:31→22:32)
[2017-04-23] MEDS ORDERED: WATER IVPB SCH (02:00)
[2017-04-23] MEDS ORDERED: ACYCLOVIR IVPB SCH (02:00)
[2017-04-23] MEDS ORDERED: DEXTROSE 5% IVPB SCH (02:00)
[2017-04-23] MEDS ORDERED: PT OWN MED DRAWER 7, Y5N ONE ×3 (02:05→21:04)
[2017-04-23] MEDS: CEFEPIME 2 GM in DEXTROSE 5%-WATER - 100 ML IVPB SCH ×2 (02:07→10:06)
[2017-04-23] MEDS: INSULIN SLIDING SCALE (NOVOLOG) 1 VIAL SQ SCH ×3 (06:28→18:39)
[2017-04-23 07:48] LABS: BASO % 0.9 % (0-2.0); EOS % 1.1 % (0-4.5); HEMATOCRIT 30.2 % (35.4-49); HEMOGLOBIN 9.8 GM/dL (11.7-16.9); LYMPH % 21.3 % (8-40); MCH 32.5 pg (25.7-33.7); MCHC 32.7 g/dl (32.0-35.9); MEAN CELL VOLUME 99.4 fl (80-96); MEAN PLT VOLUME 8.1 fl (7.5-11.1); MONO % 15.6 % (3.8-10.2); NEUT % 61.1 % (42.8-82.8); PLATELET COUNT 124 K/MM3 (134-434); RBC 3.03 M/mm3 (4.00-5.60); RDW 18.6 % (11.9-15.9); WHITE BLOOD COUNT 3.5 K/mm3 (4.0-10.0)
[2017-04-23 08:15] LABS: ALBUMIN 2.1 g/dl (3.4-5.0); ANION GAP 13 (8-16); BLOOD UREA NITROGEN 5 mg/dL (7-18); CALCIUM 7.4 mg/dL (8.5-10.1); CHLORIDE 116 mmol/L (98-107); CO2 17 mmol/L (21-32); GLUCOSE,RANDOM 117 mg/dL (74-106); MAGNESIUM 1.9 mg/dL (1.8-2.4); SODIUM 146 mmol/L (136-145)
[2017-04-23 08:20] LABS: ALK PHOS 64 U/L (45-117); BILIRUBIN,TOTAL 0.5 mg/dL (0.2-1.0); CREATININE 0.9 mg/dL (0.7-1.3); SGOT/AST 45 U/L (15-37); SGPT/ALT 27 U/L (12-78)
[2017-04-23 08:45] LABS: POTASSIUM 2.9 mmol/L (3.5-5.1)
[2017-04-23] MEDS: METOPROLOL TARTRATE 25 MG TABLET (FP) PO SCH ×2 (09:59→22:33)
[2017-04-23] MEDS: GABAPENTIN 400 MG CAPSULE (FP) PO SCH ×2 (09:59→22:34)
[2017-04-23] MEDS: PANTOPRAZOLE 20 MG TABLET (FP) PO SCH (09:59)
[2017-04-23] MEDS: APIXABAN 5 MG TABLET PO SCH ×2 (10:01→22:33)
[2017-04-23] MEDS: METOCLOPRAMIDE HCL INJECTION 10 MG/2 ML VIAL IVPUSH SCH ×4 (10:02→22:34)
--- NOTE | 2017-04-23 10:07 | PN ---
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 (short form) - Note 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: patient seen and examined overall condition same Not eating--- afraid to eat Denies pain on further questioning also tells me--- feels depressed Vital Signs Temp 98.2 F 04/23/17 05:00 Pulse 100 H 04/23/17 05:00 Resp 18 04/23/17 05:00 BP 110/68 04/23/17 05:00 Pulse Ox 94 L 04/22/17 21:00 Intake & Output 04/22/17 04/22/17 04/23/17 11:59 23:59 11:59 Intake Total 1200 950 Balance 1200 950 Intake: IV 1100 600 D5-1/2NS+20 MEQ KCL - 20 1100 600 meq In 1,000 ml @ 100 mls /hr IV ASDIR [facility] Rx#: [id number] IVPB 100 350 Other: Voiding Method Toilet Urinal Bowel Movement Yes: 7 Yes No # Bowel Movements 7 Active Medications Acetaminophen (Tylenol -) 650 mg PO Q6H PRN PRN Reason: FEVER OR PAIN Apixaban (Eliquis -) 5 mg PO BID [facility] Last Admin: 04/22/17 22:15 Dose: Not Given Atorvastatin Calcium (Lipitor -) 40 mg PO HS [facility] Last Admin: 04/22/17 22:15 Dose: Not Given Gabapentin (Neurontin -) 400 mg PO BID [facility] Last Admin: 04/22/17 22:16 Dose: Not Given Cefepime HCl 2 gm/ Dextrose 100 mls @ 200 mls/hr IVPB Q8H-IV [facility] Last Admin: 04/23/17 02:07 Dose: 200 mls/hr Potassium Chloride/Dextrose/Sod Cl (D5-1/2ns+20 Meq Kcl -) 20 meq in 1,000 mls @ 100 mls/hr IV ASDIR [facility] Last Admin: 04/23/17 00:31 Dose: 100 mls/hr Insulin Aspart (Novolog Vial Sliding Scale -) 1 vial SQ TIDAC [facility] PRN Reason: Protocol Last Admin: 04/23/17 06:28 Dose: Not Given Metoclopramide HCl (Reglan Injection -) 10 mg IVPUSH QID [facility] Last Admin: 04/22/17 22:35 Dose: 10 mg Metoprolol Tartrate (Lopressor -) 12.5 mg PO BID [facility] Last Admin: 04/22/17 22:15 Dose: Not Given Mirtazapine (Remeron -) 15 mg PO HS [facility] Pantoprazole Sodium (Protonix -) 20 mg PO DAILY [facility] Last Admin: 04/22/17 14:15 Dose: Not Given CBC, BMP 04/23/17 06:00 04/23/17 06:00 PHYSICAL EXAM awake/comfortable cvs-s1s2 lungs- diminished at bases ABD- Soft, obese, nt. bs + LE- no edema neuro- alert/ awake. A/P dysphagia-- orophyrangeal- all work up negative so far. Including EGD/ CT chest and head as well as swelling evaluation GI to follow motility studies ? aspiration pneumonia continue abx per i/d cultures -ve so far c diff -ve diarrhea improved continue hydration for now may need peg if unable to eat Will request GI to follow--for possible PEG Will follow discussed with nursing staff also Fix electrolytes Problem List - Problems (1) Anemia Code(s): D64.9 - ANEMIA, UNSPECIFIED Qualifiers: Bone marrow failure anemia type: pancytopenia, antineoplastic chemotherapy- induced (2) SOB (shortness of breath) Code(s): R06.02 - SHORTNESS OF BREATH (3) Atrial fibrillation Code(s): I48.91 - UNSPECIFIED ATRIAL FIBRILLATION Qualifiers: Atrial fibrillation type: paroxysmal Qualified Code(s): I48.0 - Paroxysmal atrial fibrillation (4) Multiple myeloma in remission Code(s): C90.01 - MULTIPLE MYELOMA IN REMISSION
[2017-04-23] MEDS ORDERED: KCL 10 MEQ IVPB 10 MEQ/100 ML INFUS.BAG IVPB SCH (10:15)
--- NOTE | 2017-04-23 10:42 | PN ---
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, Physician History of Present Illness: Tolerated oral challenge with water and meds post IV erythromycin trial, resting comfortably. - Current Medication List Current Medications: Active Medications Acetaminophen (Tylenol -) 650 mg PO Q6H PRN PRN Reason: FEVER OR PAIN Apixaban (Eliquis -) 5 mg PO BID [facility] Last Admin: 04/23/17 10:01 Dose: 5 mg Atorvastatin Calcium (Lipitor -) 40 mg PO HS [facility] Last Admin: 04/22/17 22:15 Dose: Not Given Gabapentin (Neurontin -) 400 mg PO BID [facility] Last Admin: 04/23/17 09:59 Dose: 400 mg Cefepime HCl 2 gm/ Dextrose 100 mls @ 200 mls/hr IVPB Q8H-IV [facility] Last Admin: 04/23/17 10:06 Dose: 200 mls/hr Potassium Chloride/Dextrose/Sod Cl (D5-1/2ns+20 Meq Kcl -) 20 meq in 1,000 mls @ 100 mls/hr IV ASDIR [facility] Last Admin: 04/23/17 10:07 Dose: Not Given Potassium Chloride 30 meq/ (Sodium Chloride) 315 mls @ 105 mls/hr IVPB ONCE ONE Stop: 04/23/17 13:44 Insulin Aspart (Novolog Vial Sliding Scale -) 1 vial SQ TIDAC [facility] PRN Reason: Protocol Last Admin: 04/23/17 06:28 Dose: Not Given Metoclopramide HCl (Reglan Injection -) 10 mg IVPUSH QID [facility] Last Admin: 04/23/17 10:02 Dose: 10 mg Metoprolol Tartrate (Lopressor -) 12.5 mg PO BID [facility] Last Admin: 04/23/17 09:59 Dose: 12.5 mg Mirtazapine (Remeron -) 15 mg PO [facility] Pantoprazole Sodium (Protonix -) 20 mg PO DAILY [facility] Last Admin: 04/23/17 09:59 Dose: 20 mg - Objective Vital Signs: Vital Signs Temperature 98.2 F 04/23/17 05:00 Pulse Rate 100 H 04/23/17 05:00 Respiratory Rate 18 04/23/17 05:00 Blood Pressure 110/68 04/23/17 05:00 O2 Sat by Pulse Oximetry (%) 94 L 04/22/17 21:00 Constitutional: Yes: No Distress, Calm Neck: Yes: Supple Cardiovascular: Yes: Regular Rate and Rhythm Respiratory: Yes: Regular, Diminished Gastrointestinal: Yes: Soft, Hypoactive Bowel Sounds Labs: CBC, BMP 04/23/17 06:00 04/23/17 06:00 INR, PTT INR 1.73 (0.82-1.09) H D 04/08/17 13:10 Problem List - Problems (1) SOB (shortness of breath) Code(s): R06.02 - SHORTNESS OF BREATH (2) Atrial fibrillation Code(s): I48.91 - UNSPECIFIED ATRIAL FIBRILLATION Qualifiers: Atrial fibrillation type: paroxysmal Qualified Code(s): I48.0 - Paroxysmal atrial fibrillation (3) Diastolic dysfunction Code(s): I51.9 - HEART DISEASE, UNSPECIFIED (4) Hypokalemia Code(s): E87.6 - HYPOKALEMIA (5) Multiple myeloma in remission Code(s): C90.01 - MULTIPLE MYELOMA IN REMISSION (6) Anemia Code(s): D64.9 - ANEMIA, UNSPECIFIED Qualifiers: Bone marrow failure anemia type: pancytopenia, antineoplastic chemotherapy- induced (7) Dysphagia Code(s): R13.10 - DYSPHAGIA, UNSPECIFIED Qualifiers: Dysphagia type: other dysphagia Qualified Code(s): R13.19 - Other dysphagia Assessment/Plan 1. Progressive dyspnea on exertion and fatigue 2. Symptomatic anemia post transfusion 3. Paroxysmal atrial fibrillation with periods of rapid ventricular response currently in sinus rhythm [id number] score of 3 - on A/C with NOAC (Eliquis) 4. Coronary artery disease, angina pectoris 5. LV diastolic dysfunction with chronic class 0-I NYHA classification LV failure, compensated/euvolemic 6. Hypertension 7. DM 8. Hypercholesterolemia 9. Thrombocytopenia, resolved 10. History of multiple myeloma post stem cell transplant 11. History of peripheral neuropathy 12. Dysphagia with delayed esophageal emptying 13. Recurrent fever - LLL asp pneumonia PLAN: 1. Previously on IV erythromycin as prokinetic agent and tolerated oral challenge with water and meds with diet advancement as tolerated, now on standing Reglan 2. Antibiotics as per the ID, replete K 3. Continue Eliquis 5 bid, Lopressor 12.5 bid, Lipitor 40 qhs 4. OP Esophageal manometry
--- NOTE | 2017-04-23 10:43 | PN ---
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, Physician History of Present Illness: Breathing non-labored. No cough noted No c/o chest pain/ dyspnea Low grade temp Swallowing better Leukopenic, thrombocytopenic Cultures no growth - Current Medication List Current Medications: Active Medications Acetaminophen (Tylenol -) 650 mg PO Q6H PRN PRN Reason: FEVER OR PAIN Apixaban (Eliquis -) 5 mg PO BID [facility] Last Admin: 04/23/17 10:01 Dose: 5 mg Atorvastatin Calcium (Lipitor -) 40 mg PO HS [facility] Last Admin: 04/22/17 22:15 Dose: Not Given Gabapentin (Neurontin -) 400 mg PO BID [facility] Last Admin: 04/23/17 09:59 Dose: 400 mg Cefepime HCl 2 gm/ Dextrose 100 mls @ 200 mls/hr IVPB Q8H-IV [facility] Last Admin: 04/23/17 10:06 Dose: 200 mls/hr Potassium Chloride/Dextrose/Sod Cl (D5-1/2ns+20 Meq Kcl -) 20 meq in 1,000 mls @ 100 mls/hr IV ASDIR [facility] Last Admin: 04/23/17 10:07 Dose: Not Given Potassium Chloride 30 meq/ (Sodium Chloride) 315 mls @ 105 mls/hr IVPB ONCE ONE Stop: 04/23/17 13:44 Insulin Aspart (Novolog Vial Sliding Scale -) 1 vial SQ TIDAC [facility] PRN Reason: Protocol Last Admin: 04/23/17 06:28 Dose: Not Given Metoclopramide HCl (Reglan Injection -) 10 mg IVPUSH QID [facility] Last Admin: 04/23/17 10:02 Dose: 10 mg Metoprolol Tartrate (Lopressor -) 12.5 mg PO BID [facility] Last Admin: 04/23/17 09:59 Dose: 12.5 mg Mirtazapine (Remeron -) 15 mg PO [facility] Pantoprazole Sodium (Protonix -) 20 mg PO DAILY [facility] Last Admin: 04/23/17 09:59 Dose: 20 mg - Objective Vital Signs: Vital Signs Temperature 98.2 F 04/23/17 05:00 Pulse Rate 100 H 04/23/17 05:00 Respiratory Rate 18 04/23/17 05:00 Blood Pressure 110/68 04/23/17 05:00 O2 Sat by Pulse Oximetry (%) 94 L 04/22/17 21:00 Constitutional: Yes: No Distress Cardiovascular: Yes: Regular Rate and Rhythm, S1, S2 Respiratory: Yes: Other (+ crepitations at bases bilaterally) Gastrointestinal: Yes: Normal Bowel Sounds, Soft. No: Tenderness Labs: CBC, BMP 04/23/17 06:00 04/23/17 06:00 INR, PTT INR 1.73 (0.82-1.09) H D 04/08/17 13:10 Assessment/Plan LLL pneumonia Myeloma s/p stem cell transplant 201 Leukopenia/ Thrombocytopenia Diabetes mellitus Day #6 cefepime Substitute po Augmentin x 3d
[2017-04-23] MEDS ORDERED: POTASSIUM CHLORIDE 30 MEQ in SODIUM CHLORIDE 300 ML IVPB ONE (10:45)
--- NOTE | 2017-04-23 13:09 | PN ---
GI 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 Subjective: GI NOte: Afraid to eat as he is choking and/or regurgitating anything he ingests. The esophagram reveals no obstruction but esophageal dysmotility is noted Aspiration of barium however is also noted. I will ask Katy Chanel to reconsult. I discussed the potential need for a PEG to provide enteral nutrition safely. I informed him of the risks and shortcomings of the procedure. He wishes to consider it further before consenting - Objective Vital Signs: Vital Signs Temperature 98.2 F 04/23/17 05:00 Pulse Rate 100 H 04/23/17 05:00 Respiratory Rate 18 04/23/17 05:00 Blood Pressure 110/68 04/23/17 05:00 O2 Sat by Pulse Oximetry (%) 94 L 04/22/17 21:00 Laboratory Tests 04/23/17 06:00 Albumin 2.1 L Constitutional: Other (appears depressed) ...Auscultate: Yes: Normoactive Bowel Sounds ...Palpate: Yes: Soft, Other (nontender) Labs: CBC, BMP 04/23/17 06:00 04/23/17 06:00 INR, PTT INR 1.73 (0.82-1.09) H D 04/08/17 13:10 Problem List - Problems (1) Dysphagia Assessment/Plan: The esophagram reveals esophageal motility but no obstruction or achalasia dilatation. Aspiration was noted. Will reconsult Katy Chanel to see whether there are maneuvers that can get Michael eating again. Michael has been offered PEG as an option if not. Can alternatively feed with soft NG tube in the interim if he permits. Code(s): R13.10 - DYSPHAGIA, UNSPECIFIED Qualifiers: Dysphagia type: other dysphagia Qualified Code(s): R13.19 - Other dysphagia (2) Anemia Code(s): D64.9 - ANEMIA, UNSPECIFIED Qualifiers: Bone marrow failure anemia type: pancytopenia, antineoplastic chemotherapy- induced
--- NOTE | 2017-04-23 15:22 | PN ---
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, Physician Chief Complaint: PULMOARY ALERT,NAD,WEAK. History of Present Illness: PULMONARY - Current Medication List Current Medications: Active Medications Acetaminophen (Tylenol -) 650 mg PO Q6H PRN PRN Reason: FEVER OR PAIN Amoxicillin/Clavulanate Potassium (Augmentin - 875mg Tablet) 1 tab PO BID@0800, 1730 [facility] Apixaban (Eliquis -) 5 mg PO BID [facility] Last Admin: 04/23/17 10:01 Dose: 5 mg Atorvastatin Calcium (Lipitor -) 40 mg PO HS [facility] Last Admin: 04/22/17 22:15 Dose: Not Given Gabapentin (Neurontin -) 400 mg PO BID [facility] Last Admin: 04/23/17 09:59 Dose: 400 mg Potassium Chloride/Dextrose/Sod Cl (D5-1/2ns+20 Meq Kcl -) 20 meq in 1,000 mls @ 100 mls/hr IV ASDIR [facility] Last Admin: 04/23/17 12:23 Dose: 100 mls/hr Insulin Aspart (Novolog Vial Sliding Scale -) 1 vial SQ TIDAC [facility] PRN Reason: Protocol Last Admin: 04/23/17 12:27 Dose: Not Given Metoclopramide HCl (Reglan Injection -) 10 mg IVPUSH QID [facility] Last Admin: 04/23/17 10:02 Dose: 10 mg Metoprolol Tartrate (Lopressor -) 12.5 mg PO BID [facility] Last Admin: 04/23/17 09:59 Dose: 12.5 mg Mirtazapine (Remeron -) 15 mg PO [facility] Pantoprazole Sodium (Protonix -) 20 mg PO DAILY [facility] Last Admin: 04/23/17 09:59 Dose: 20 mg - Objective Vital Signs: Vital Signs Temperature 98.2 F 04/23/17 05:00 Pulse Rate 100 H 04/23/17 05:00 Respiratory Rate 18 04/23/17 05:00 Blood Pressure 110/68 04/23/17 05:00 O2 Sat by Pulse Oximetry (%) 94 L 04/22/17 21:00 Constitutional: Yes: No Distress, Calm, Obese Eyes: Yes: WNL HENT: Yes: WNL Neck: Yes: WNL Cardiovascular: Yes: Regular Rate and Rhythm, S1, S2 Respiratory: Yes: Diminished, Rales (FEW BIBASILAR CRACKLES) Gastrointestinal: Yes: Normal Bowel Sounds, Soft Extremities: Yes: WNL Edema: No Labs: CBC, BMP 04/23/17 06:00 04/23/17 06:00 INR, PTT INR 1.73 (0.82-1.09) H D 04/08/17 13:10 Problem List - Problems (1) Anemia Code(s): D64.9 - ANEMIA, UNSPECIFIED Qualifiers: Bone marrow failure anemia type: pancytopenia, antineoplastic chemotherapy- induced (2) SOB (shortness of breath) Code(s): R06.02 - SHORTNESS OF BREATH (3) Diastolic dysfunction Code(s): I51.9 - HEART DISEASE, UNSPECIFIED (4) Dyspnea Code(s): R06.00 - DYSPNEA, UNSPECIFIED (6) Thrombocytopenia Code(s): D69.6 - THROMBOCYTOPENIA, UNSPECIFIED (7) Atrial fibrillation Code(s): I48.91 - UNSPECIFIED ATRIAL FIBRILLATION Qualifiers: Atrial fibrillation type: paroxysmal Qualified Code(s): I48.0 - Paroxysmal atrial fibrillation Assessment/Plan IMP DYSPNEA IMPROVING PNEUMONIA SYMPTOMATIC ANEMIA LV DIASTOLIC DYSFUNCTION ASHD PAF MM ANEMIA/THROMBOCYOPENIA HTN NIIDM PERIPHERAL NEUROPATHY PLAN O2 TRANSFUSION NEEDED KEYSHAWN ALDANAPRESSOR MONITOR H+H RATE CONTROL ANTIBIOTICS PER SILVANA SERRANO Problem List - Problems (1) Anemia Code(s): D64.9 - ANEMIA, UNSPECIFIED Qualifiers: Bone marrow failure anemia type: pancytopenia, antineoplastic chemotherapy- induced (2) SOB (shortness of breath) Code(s): R06.02 - SHORTNESS OF BREATH (3) Diastolic dysfunction Code(s): I51.9 - HEART DISEASE, UNSPECIFIED (4) Dyspnea Code(s): R06.00 - DYSPNEA, UNSPECIFIED (6) Thrombocytopenia Code(s): D69.6 - THROMBOCYTOPENIA, UNSPECIFIED (7) Atrial fibrillation Code(s): I48.91 - UNSPECIFIED ATRIAL FIBRILLATION Qualifiers: Atrial fibrillation type: paroxysmal Qualified Code(s): I48.0 - Paroxysmal atrial fibrillation
--- NOTE | 2017-04-23 16:03 | PN ---
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, REAM CUTTER - Note 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: 71 year old male seen at bedside for follow up to swallow eval (04/21/17). Pt intake remains very poor per chart review and charge accounts audit clerk report. Pt given po trials of puree via spoon with full assistance revealed poor acceptance, adequate bolus control and transport. Pharyngeal swallow appears timely. Positive s/s of aspiration (coughing, increased respirations and wet voice) with second bolus trial. Pt refused all other solid and liquid trials. REAM CUTTER counseled pt that continued poor nutrition may result in alternative intervention (PEG). Pt understood and maintained refusal of dysphagia evaluation. Pt presents with severe noreen-pharyngeal dysphagia for solids and liquids at this time. Recommendations: continue NPO status at this time. Consider alternative methods of providing nutrition, hydration and medications. Results given to charge accounts audit clerk Monica and to pcp via chart.
[2017-04-23 16:27] LABS: ANION GAP 8 (8-16); BLOOD UREA NITROGEN 5 mg/dL (7-18); CALCIUM 7.3 mg/dL (8.5-10.1); CHLORIDE 117 mmol/L (98-107); CO2 21 mmol/L (21-32); CREATININE 0.9 mg/dL (0.7-1.3); GLUCOSE,RANDOM 131 mg/dL (74-106); POTASSIUM 3.2 mmol/L (3.5-5.1); SODIUM 146 mmol/L (136-145)
--- NOTE | 2017-04-23 17:41 | CON.PSY ---
Psychiatry Consult Chief Complaint: 71 year old male with extensivehistory of medical conditions including Multiple Myeloma. Patient seen for Depression. [place] on REmeron 15mg po hs. Symptoms: reports: Anhedonia, Appetite Disturbance - Previous Psychiatric Treatment Outpatient: None Inpatient: None - Previous Substance Abuse Treatment Outpatient: None Inpatient: None - Current Medications Current Medications: Active Medications Acetaminophen (Tylenol -) 650 mg PO Q6H PRN PRN Reason: FEVER OR PAIN Amoxicillin/Clavulanate Potassium (Augmentin - 875mg Tablet) 1 tab PO BID@0800, 1730 [facility] Apixaban (Eliquis -) 5 mg PO BID [facility] Last Admin: 04/23/17 10:01 Dose: 5 mg Atorvastatin Calcium (Lipitor -) 40 mg PO HS [facility] Last Admin: 04/22/17 22:15 Dose: Not Given Gabapentin (Neurontin -) 400 mg PO BID [facility] Last Admin: 04/23/17 09:59 Dose: 400 mg Potassium Chloride/Dextrose/Sod Cl (D5-1/2ns+20 Meq Kcl -) 20 meq in 1,000 mls @ 100 mls/hr IV ASDIR [facility] Last Admin: 04/23/17 12:23 Dose: 100 mls/hr Insulin Aspart (Novolog Vial Sliding Scale -) 1 vial SQ TIDAC [facility] PRN Reason: Protocol Last Admin: 04/23/17 12:27 Dose: Not Given Metoclopramide HCl (Reglan Injection -) 10 mg IVPUSH QID [facility] Last Admin: 04/23/17 15:52 Dose: Not Given Metoprolol Tartrate (Lopressor -) 12.5 mg PO BID [facility] Last Admin: 04/23/17 09:59 Dose: 12.5 mg Mirtazapine (Remeron -) 15 mg PO [facility] Pantoprazole Sodium (Protonix -) 20 mg PO DAILY [facility] Last Admin: 04/23/17 09:59 Dose: 20 mg - Allergies Allergies: Allergies Allergy/AdvReac Type Severity Reaction Status Date / Time No Known Allergies Allergy Verified 04/08/17 11:08 - Current Living Status Usual Living Arrangement: With Spouse - Current Mental Status Evaluation Appearance: Disheveled Attitude: Cooperative - Affect Affect: Constrictive Appropriateness: Appropriate to Content - Mood Mood: Anxious - Speech/Language Expressive: Coherent - Psychomotor Activity Psychomotor Activity: Slowed - Thought Process Thought Process: Intact - Thought Content Hallucinations: Absent Delusions: Absent - Self Perception Self Perception: No Impairment - Cognition Attention: Alert Orientation: Time Memory, Immediate Recall: Intact Memory, Short Term: 2/3 Memory, Remote with Promptin/3 - Concentration Serial Sevens Intact: No Simple Calculations Intact: No - Abstraction Proverb Interpretation: Intact Judgement: Intact - Insight Insight: Intact - Impulse Control Impulse Control: Good Control - Suicidal Ideation Suicidal Ideation: No - Homicidal Ideation Homicidal Ideation: No Assessment/Plan 1) Continue with REmeron 15mg po hs. 2) May add Marinol to increase appetite.
--- NOTE | 2017-04-23 18:30 | CONSULT ---
Consult - text type - Consultation Consultation Note: NEUROLOGY CONSULTATION is greatly appreciated: Events reviewed. Patient examined. Full report to follow. 71 yo man well known to me with peripheral neuropathy and MUGUS leading to Dx of Multiple Myeloma, now in remission, off Chemo. Admitted 3 weks ago with SOB and generalized weakness associated with dysphagia. EXAM: Dysarthric. Bilateral ptosis. Tongue weak in all directions. Decreased gag Ankle dorsiflexion 4-/5 Areflexic Decreased vibration to the knees. 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 Now ptosis, bulbar weakness suggesting possible Myasthenia gravis. SUGGEST: MRI of brain (C-) Antiacetylcholine receptor antibodies. B12, TSH, CK Will follow with you. Thank you very much, Shahriar Monaco MD
[2017-04-23] MEDS: AMOX TR/POT CLAV 875MG/125MG TABLETS (FP) PO SCH (18:39)
[2017-04-23] MEDS: ATORVASTATIN CA 40 MG TABLET (FP) PO SCH (22:33)
[2017-04-23] MEDS: MIRTAZAPINE 15 MG TABLET (FP) PO SCH (22:34)
--- NOTE | 2017-04-24 01:51 | PN ---
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 (short form) - Note 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: Patient seen and examined Lethargic Nursing staff reports cough AFVSS thrush+ Cor: RSR, No murmurs, No gallops Lungs: decreased at bases Abd: Soft, Normal bowel sounds, No organomegaly Ext:edema Abnormal Lab Results 04/23/17 04/23/17 04/23/17 06:00 06:00 15:15 WBC 3.5 L D RBC 3.03 L Hgb 9.8 L D Hct 30.2 L MCV 99.4 H RDW 18.6 H Plt Count 124 L D Monocytes % 15.6 H Sodium 146 H 146 H Potassium 2.9 L* 3.2 L Chloride 116 H 117 H Carbon Dioxide 17 L BUN 5 L 5 L Random Glucose 117 H 131 H Calcium 7.4 L 7.3 L AST 45 H D Total Protein 5.0 L Albumin 2.1 L Home Medication List Medication Instructions Recorded Confirmed Type Atorvastatin Ca [Lipitor] 40 mg PO HS 10/04/16 04/08/17 History Gabapentin 400 mg PO BID 10/04/16 04/08/17 History Oxycodone Sr [Oxycontin] 10 mg PO Q6H PRN 10/04/16 04/08/17 History Active Medications Generic Name Dose Route Start Last Admin Trade Name Freq PRN Reason Stop Dose Admin Acetaminophen 650 mg 04/21/17 07:47 Tylenol - PO Q6H PRN FEVER OR PAIN Amoxicillin/Clavulanate Potassium 1 tab 04/23/17 17:30 04/23/17 18:39 Augmentin - 875mg Tablet PO 1 tab BID@0800,1730 [facility] Administration Apixaban 5 mg 04/21/17 10:00 04/23/17 22:33 Eliquis - PO Not Given BID [facility] Atorvastatin Calcium 40 mg 04/21/17 22:00 04/23/17 22:33 Lipitor - PO Not Given HS [facility] Gabapentin 400 mg 04/21/17 10:00 04/23/17 22:34 Neurontin - PO Not Given BID [facility] Potassium Chloride/Dextrose/Sod Cl 20 meq in 1,000 mls @ 100 mls/hr 04/20/17 10:00 04/23/17 22:32 D5-1/2ns+20 Meq Kcl - IV 100 mls/hr ASDIR [facility] Administration Insulin Aspart 1 vial 04/21/17 11:00 04/24/17 06:01 Novolog Vial Sliding Scale - SQ Not Given TIDAC [facility] Protocol Metoclopramide HCl 10 mg 04/22/17 22:00 04/23/17 22:34 Reglan Injection - IVPUSH 10 mg QID [facility] Administration Metoprolol Tartrate 12.5 mg 04/19/17 13:31 04/23/17 22:33 Lopressor - PO Not Given BID [facility] Mirtazapine 15 mg 04/23/17 22:00 04/23/17 22:34 Remeron - PO 15 mg HS [facility] Administration Pantoprazole Sodium 20 mg 04/21/17 10:00 04/23/17 09:59 Protonix - PO 20 mg DAILY [facility] Administration A/P 71 y/o patient with myeloma, on maintenance dick/dex, now with low grade fevers, aspiration , / lethargy myeloma protein stdies show remission switched to PO antibiotics discussed with ID--will add nystatin for thrush neuro consult appreciated -- 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
[2017-04-24] MEDS: INSULIN SLIDING SCALE (NOVOLOG) 1 VIAL SQ SCH ×3 (06:01→16:44)
[2017-04-24 08:01] LABS: BASO % 0.9 % (0-2.0); EOS % 1.4 % (0-4.5); HEMATOCRIT 29.7 % (35.4-49); HEMOGLOBIN 9.7 GM/dL (11.7-16.9); LYMPH % 22.5 % (8-40); MCH 32.4 pg (25.7-33.7); MCHC 32.6 g/dl (32.0-35.9); MEAN CELL VOLUME 99.3 fl (80-96); MEAN PLT VOLUME 8.2 fl (7.5-11.1); MONO % 15.7 % (3.8-10.2); NEUT % 59.5 % (42.8-82.8); PLATELET COUNT 104 K/MM3 (134-434); RDW 18.9 % (11.9-15.9); WHITE BLOOD COUNT 3.5 K/mm3 (4.0-10.0)
[2017-04-24 08:52] LABS: ALBUMIN 1.9 g/dl (3.4-5.0); ANION GAP 9 (8-16); BILIRUBIN,TOTAL 0.4 mg/dL (0.2-1.0); BLOOD UREA NITROGEN 4 mg/dL (7-18); CHLORIDE 119 mmol/L (98-107); CO2 19 mmol/L (21-32); CREATININE 0.8 mg/dL (0.7-1.3); GLUCOSE,RANDOM 114 mg/dL (74-106); SGOT/AST 48 U/L (15-37); SGPT/ALT 28 U/L (12-78); SODIUM 147 mmol/L (136-145); TOT PROT 4.5 g/dl (6.4-8.2)
[2017-04-24 08:53] LABS: ALK PHOS 62 U/L (45-117)
[2017-04-24 09:24] LABS: CALCIUM 6.9 mg/dL (8.5-10.1); POTASSIUM 2.9 mmol/L (3.5-5.1)
[2017-04-24] MEDS ORDERED: PT OWN MED DRAWER 7, Y5N ONE ×2 (12:03→23:04)
[2017-04-24] MEDS: GABAPENTIN 400 MG CAPSULE (FP) PO SCH ×2 (12:28→23:07)
[2017-04-24] MEDS: AMOX TR/POT CLAV 875MG/125MG TABLETS (FP) PO SCH ×2 (12:28→17:07)
[2017-04-24] MEDS: METOPROLOL TARTRATE 25 MG TABLET (FP) PO SCH ×2 (12:28→23:07)
[2017-04-24] MEDS: PANTOPRAZOLE 20 MG TABLET (FP) PO SCH (12:28)
[2017-04-24] MEDS: METOCLOPRAMIDE HCL INJECTION 10 MG/2 ML VIAL IVPUSH SCH ×4 (12:28→23:07)
[2017-04-24] MEDS: APIXABAN 5 MG TABLET PO SCH ×2 (12:28→23:06)
[2017-04-24] MEDS ORDERED: SODIUM CHLORIDE IVPB ONE (12:30)
[2017-04-24] MEDS ORDERED: POTASSIUM CHLORIDE IVPB ONE (12:30)
[2017-04-24] MEDS ORDERED: LOPERAMIDE HCL 2 MG CAPSULE PO ONE (13:04)
--- NOTE | 2017-04-24 13:11 | PN ---
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 (short form) - Note 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: Pt seen/ examined All f/u noted. Neuro/ psych consult appreciated. pt sitting in chair looks weak no distress afebrile denies cp/sob/ abd pain, +ve diarrhea skin raw in back. Vital Signs Temp 98.5 F 04/24/17 05:00 Pulse 98 H 04/24/17 05:00 Resp 20 04/24/17 05:00 BP 137/74 04/24/17 05:00 Pulse Ox 97 04/23/17 21:00 Intake & Output 04/23/17 04/24/17 04/24/17 23:59 11:59 23:59 Intake Total 0 1200 Balance 0 1200 Intake: IV 1200 D5-1/2NS+20 MEQ KCL - 20 1200 meq In 1,000 ml @ 100 mls /hr IV ASDIR [facility] Rx#: [id number] Oral 0 Other: Voiding Method Urinal Incontinent # Unmeasured Voids Void 2 3 Bowel Movement Yes Yes: 3 # Bowel Movements 3 Active Medications Acetaminophen (Tylenol -) 650 mg PO Q6H PRN PRN Reason: FEVER OR PAIN Amoxicillin/Clavulanate Potassium (Augmentin - 875mg Tablet) 1 tab PO BID@0800, 1730 [facility] Last Admin: 04/24/17 12:28 Dose: Not Given Apixaban (Eliquis -) 5 mg PO BID [facility] Last Admin: 04/24/17 12:28 Dose: Not Given Atorvastatin Calcium (Lipitor -) 40 mg PO HS [facility] Last Admin: 04/23/17 22:33 Dose: Not Given Gabapentin (Neurontin -) 400 mg PO BID [facility] Last Admin: 04/24/17 12:28 Dose: Not Given Potassium Chloride/Dextrose/Sod Cl (D5-1/2ns+20 Meq Kcl -) 20 meq in 1,000 mls @ 100 mls/hr IV ASDIR [facility] Last Admin: 04/23/17 22:32 Dose: 100 mls/hr Potassium Chloride 50 meq/ (Sodium Chloride) 525 mls @ 100 mls/hr IVPB ONCE ONE Stop: 04/24/17 17:44 Insulin Aspart (Novolog Vial Sliding Scale -) 1 vial SQ TIDAC [facility] PRN Reason: Protocol Last Admin: 04/24/17 06:01 Dose: Not Given Loperamide HCl (Imodium -) 4 mg PO ONCE ONE Stop: 04/24/17 13:05 Metoclopramide HCl (Reglan Injection -) 10 mg IVPUSH QID [facility] Last Admin: 04/24/17 12:28 Dose: Not Given Metoprolol Tartrate (Lopressor -) 12.5 mg PO BID [facility] Last Admin: 04/24/17 12:28 Dose: Not Given Mirtazapine (Remeron -) 15 mg PO HS [facility] Last Admin: 04/23/17 22:34 Dose: 15 mg Pantoprazole Sodium (Protonix -) 20 mg PO DAILY [facility] Last Admin: 04/24/17 12:28 Dose: Not Given CBC, BMP 04/24/17 06:20 04/24/17 06:20 PHYSICAL EXAM awake/comfortable but weak Thrush + cvs-s1s2 irregular lungs- diminished at bases ABD- Soft, obese, nt. bs + LE- no edema neuro- alert/ awake. A/P dysphagia-- aspiration pneumonia multiple myloma- in remission parosysmal Afib diarrhea Inflammatory Neuropathy M. Gravis ? Electrolyte Imbalance Depression Anemia Thrush Continue present care skin care- discussed with nursing staff c diff -ve immodium x 1 dose today gi to follow-- will need peg will order mri brain- not ordered f/u labs will follow discussed with nursing staff. had discussed with Dr. Sim also yesterday Problem List - Problems (1) Anemia Code(s): D64.9 - ANEMIA, UNSPECIFIED Qualifiers: Bone marrow failure anemia type: pancytopenia, antineoplastic chemotherapy- induced (2) SOB (shortness of breath) Code(s): R06.02 - SHORTNESS OF BREATH (3) Atrial fibrillation Code(s): I48.91 - UNSPECIFIED ATRIAL FIBRILLATION Qualifiers: Atrial fibrillation type: paroxysmal Qualified Code(s): I48.0 - Paroxysmal atrial fibrillation (4) Multiple myeloma in remission Code(s): C90.01 - MULTIPLE MYELOMA IN REMISSION
--- NOTE | 2017-04-24 13:22 | EKG ---
Test Reason : Blood Pressure : / mmHG Vent. Rate : 113 BPM Atrial Rate : 113 BPM P-R Int : 136 ms QRS Dur : 092 ms QT Int : 348 ms P-R-T Axes : 028 -07 047 degrees QTc Int : 477 ms SINUS TACHYCARDIA OTHERWISE NORMAL ECG WHEN COMPARED WITH ECG OF 14-APR-2017 09:19, NO SIGNIFICANT CHANGE WAS FOUND Confirmed by VENKAT ARANDA MD ([id number]) on 04/24/2017 1:22:04 PM Referred By: Rosa M GRISSOM Confirmed By:VENKAT ARANDA MD
[2017-04-24] MEDS: D5-1/2NS+20 MEQ KCL - 20 MEQ/1,000 ML INFUS.BAG IV SCH ×2 (13:29→23:05)
--- NOTE | 2017-04-24 13:53 | PN ---
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, Physician Chief Complaint: PULMONARY ALERT,NAD,WEAK. History of Present Illness: PULMONARY AWAKE,WEAK,-SOB, - Current Medication List Current Medications: Active Medications Acetaminophen (Tylenol -) 650 mg PO Q6H PRN PRN Reason: FEVER OR PAIN Amoxicillin/Clavulanate Potassium (Augmentin - 875mg Tablet) 1 tab PO BID@0800, 1730 [facility] Last Admin: 04/24/17 12:28 Dose: Not Given Apixaban (Eliquis -) 5 mg PO BID [facility] Last Admin: 04/24/17 12:28 Dose: Not Given Atorvastatin Calcium (Lipitor -) 40 mg PO HS [facility] Last Admin: 04/23/17 22:33 Dose: Not Given Gabapentin (Neurontin -) 400 mg PO BID [facility] Last Admin: 04/24/17 12:28 Dose: Not Given Potassium Chloride/Dextrose/Sod Cl (D5-1/2ns+20 Meq Kcl -) 20 meq in 1,000 mls @ 100 mls/hr IV ASDIR [facility] Last Admin: 04/24/17 13:29 Dose: 100 mls/hr Potassium Chloride 50 meq/ (Sodium Chloride) 525 mls @ 100 mls/hr IVPB ONCE ONE Stop: 04/24/17 17:44 Insulin Aspart (Novolog Vial Sliding Scale -) 1 vial SQ TIDAC [facility] PRN Reason: Protocol Last Admin: 04/24/17 06:01 Dose: Not Given Loperamide HCl (Imodium -) 4 mg PO ONCE ONE Stop: 04/24/17 13:05 Metoclopramide HCl (Reglan Injection -) 10 mg IVPUSH QID [facility] Last Admin: 04/24/17 12:28 Dose: Not Given Metoprolol Tartrate (Lopressor -) 12.5 mg PO BID [facility] Last Admin: 04/24/17 12:28 Dose: Not Given Mirtazapine (Remeron -) 15 mg PO HS [facility] Last Admin: 04/23/17 22:34 Dose: 15 mg Pantoprazole Sodium (Protonix -) 20 mg PO DAILY [facility] Last Admin: 04/24/17 12:28 Dose: Not Given - Objective Vital Signs: Vital Signs Temperature 98.5 F 04/24/17 05:00 Pulse Rate 98 H 04/24/17 05:00 Respiratory Rate 20 04/24/17 05:00 Blood Pressure 137/74 04/24/17 05:00 O2 Sat by Pulse Oximetry (%) 97 04/23/17 21:00 Constitutional: Yes: Well Nourished, Calm Eyes: Yes: WNL HENT: Yes: WNL Neck: Yes: WNL Cardiovascular: Yes: Pulse Irregular, S1, S2 Respiratory: Yes: Diminished Gastrointestinal: Yes: Normal Bowel Sounds, Soft Extremities: Yes: WNL Edema: Yes Labs: CBC, BMP 04/24/17 06:20 04/24/17 06:20 INR, PTT INR 1.73 (0.82-1.09) H D 04/08/17 13:10 Problem List - Problems (1) Anemia Code(s): D64.9 - ANEMIA, UNSPECIFIED Qualifiers: Bone marrow failure anemia type: pancytopenia, antineoplastic chemotherapy- induced (2) SOB (shortness of breath) Code(s): R06.02 - SHORTNESS OF BREATH (3) Diastolic dysfunction Code(s): I51.9 - HEART DISEASE, UNSPECIFIED (4) Dyspnea Code(s): R06.00 - DYSPNEA, UNSPECIFIED (6) Thrombocytopenia Code(s): D69.6 - THROMBOCYTOPENIA, UNSPECIFIED (7) Atrial fibrillation Code(s): I48.91 - UNSPECIFIED ATRIAL FIBRILLATION Qualifiers: Atrial fibrillation type: paroxysmal Qualified Code(s): I48.0 - Paroxysmal atrial fibrillation Assessment/Plan IMP DYSPNEA IMPROVING S/P SYMPTOMATIC ANEMIA LV DIASTOLIC DYSFUNCTION ASHD PAF MM ANEMIA/THROMBOCYOPENIA HTN NIIDM PERIPHERAL NEUROPATHY WEAKNESS ? MYASTHENIA PLAN O2 TRANSFUSION NEEDED ELIQUIS MONITOR H+H RATE CONTROL ANTIBIOTICS PER ID REPLETE K NEURO W/U DR SERRANO Problem List - Problems (1) Anemia Code(s): D64.9 - ANEMIA, UNSPECIFIED Qualifiers: Bone marrow failure anemia type: pancytopenia, antineoplastic chemotherapy- induced (2) SOB (shortness of breath) Code(s): R06.02 - SHORTNESS OF BREATH (3) Diastolic dysfunction Code(s): I51.9 - HEART DISEASE, UNSPECIFIED (4) Dyspnea Code(s): R06.00 - DYSPNEA, UNSPECIFIED (6) Thrombocytopenia Code(s): D69.6 - THROMBOCYTOPENIA, UNSPECIFIED (7) Atrial fibrillation Code(s): I48.91 - UNSPECIFIED ATRIAL FIBRILLATION Qualifiers: Atrial fibrillation type: paroxysmal Qualified Code(s): I48.0 - Paroxysmal atrial fibrillation
[2017-04-24] MEDS: KCL 10 MEQ IVPB 10 MEQ/100 ML INFUS.BAG IVPB SCH (14:20)
--- NOTE | 2017-04-24 15:47 | PN ---
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, Physician Chief Complaint: Periods of tachycardia History of Present Illness: Patient was seen and examined. Arousable. Chart was reviewed Generalized weakness Not able to swallow - not able to give medication - Current Medication List Current Medications: Active Medications Acetaminophen (Tylenol -) 650 mg PO Q6H PRN PRN Reason: FEVER OR PAIN Amoxicillin/Clavulanate Potassium (Augmentin - 875mg Tablet) 1 tab PO BID@0800, 1730 [facility] Last Admin: 04/24/17 12:28 Dose: Not Given Apixaban (Eliquis -) 5 mg PO BID [facility] Last Admin: 04/24/17 12:28 Dose: Not Given Atorvastatin Calcium (Lipitor -) 40 mg PO HS [facility] Last Admin: 04/23/17 22:33 Dose: Not Given Gabapentin (Neurontin -) 400 mg PO BID [facility] Last Admin: 04/24/17 12:28 Dose: Not Given Potassium Chloride/Dextrose/Sod Cl (D5-1/2ns+20 Meq Kcl -) 20 meq in 1,000 mls @ 100 mls/hr IV ASDIR [facility] Last Admin: 04/24/17 13:29 Dose: 100 mls/hr Potassium Chloride 50 meq/ (Sodium Chloride) 525 mls @ 100 mls/hr IVPB ONCE ONE Stop: 04/24/17 17:44 Last Admin: 04/24/17 14:12 Dose: 100 mls/hr Insulin Aspart (Novolog Vial Sliding Scale -) 1 vial SQ TIDAC [facility] PRN Reason: Protocol Last Admin: 04/24/17 14:19 Dose: Not Given Metoclopramide HCl (Reglan Injection -) 10 mg IVPUSH QID [facility] Last Admin: 04/24/17 12:28 Dose: Not Given Metoprolol Tartrate (Lopressor -) 12.5 mg PO BID [facility] Last Admin: 04/24/17 12:28 Dose: Not Given Mirtazapine (Remeron -) 15 mg PO HS [facility] Last Admin: 04/23/17 22:34 Dose: 15 mg Pantoprazole Sodium (Protonix -) 20 mg PO DAILY [facility] Last Admin: 04/24/17 12:28 Dose: Not Given - Objective Vital Signs: Vital Signs Temperature 97.4 F L 04/24/17 15:03 Pulse Rate 111 H 04/24/17 15:03 Respiratory Rate 20 04/24/17 15:03 Blood Pressure 112/80 04/24/17 15:03 O2 Sat by Pulse Oximetry (%) 97 04/23/17 21:00 Neck: Yes: Supple Cardiovascular: Yes: Regular Rate and Rhythm, Tachycardia, S1, S2 Respiratory: Yes: Diminished Gastrointestinal: Yes: Normal Bowel Sounds, Soft. No: Tenderness Edema: No Labs: CBC, BMP 04/24/17 06:20 04/24/17 06:20 Problem List - Problems (1) CAD (coronary artery disease) Code(s): I25.10 - ATHSCL HEART DISEASE OF [place] CORONARY ARTERY W/O ANG PCTRS Qualifiers: Coronary Disease-Associated Artery/Lesion type: [place] artery [place] vs. transplanted heart: [place] heart Associated angina: without angina Qualified Code(s): I25.10 - Atherosclerotic heart disease of [place] coronary artery without angina pectoris (2) HTN (hypertension) Code(s): I10 - ESSENTIAL (PRIMARY) HYPERTENSION Qualifiers: Hypertension type: essential hypertension Qualified Code(s): I10 - Essential (primary) hypertension (3) Hypercholesterolemia Code(s): E78.00 - PURE HYPERCHOLESTEROLEMIA, UNSPECIFIED (4) Diabetes mellitus Code(s): E11.9 - TYPE 2 DIABETES MELLITUS WITHOUT COMPLICATIONS Qualifiers: Diabetes mellitus type: type 2 (5) Anemia Code(s): D64.9 - ANEMIA, UNSPECIFIED Qualifiers: Bone marrow failure anemia type: pancytopenia, antineoplastic chemotherapy- induced (6) Dysphagia Code(s): R13.10 - DYSPHAGIA, UNSPECIFIED Qualifiers: Dysphagia type: other dysphagia Qualified Code(s): R13.19 - Other dysphagia (7) SOB (shortness of breath) Code(s): R06.02 - SHORTNESS OF BREATH (8) Atrial fibrillation Code(s): I48.91 - UNSPECIFIED ATRIAL FIBRILLATION Qualifiers: Atrial fibrillation type: paroxysmal Qualified Code(s): I48.0 - Paroxysmal atrial fibrillation (9) Diastolic dysfunction Code(s): I51.9 - HEART DISEASE, UNSPECIFIED (10) Multiple myeloma in remission Code(s): C90.01 - MULTIPLE MYELOMA IN REMISSION (11) Thrombocytopenia Code(s): D69.6 - THROMBOCYTOPENIA, UNSPECIFIED Assessment/Plan 1. Progressive dyspnea on exertion and fatigue 2. Symptomatic anemia post transfusion 3. Paroxysmal atrial fibrillation with periods of rapid ventricular response currently in sinus rhythm [id number] score of 3 - on A/C with NOAC (Eliquis) 4. Coronary artery disease, angina pectoris 5. LV diastolic dysfunction with chronic class 0-I NYHA classification LV failure, compensated/euvolemic 6. Hypertension 7. DM 8. Hypercholesterolemia 9. Thrombocytopenia, resolved 10. History of multiple myeloma post stem cell transplant 11. History of peripheral neuropathy 12. Dysphagia, etiology to be determined evaluation in progress 13. Aspiration pneumonia PLAN: 1. Medication needs to be continued including Eliquis, Metoprolol and Lipitor 2. Antibiotics as per the ID 3. Further evaluation and plans to follow regarding PO intake Further plans are to follow Dmitri Ngo MD
--- NOTE | 2017-04-24 16:08 | PN ---
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 (short form) - Note 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: Patient seen and examined chart reviewed. feels about the same. O/E: Constitutional: in NAD HENT: No: Nasal Congestion, Neck: No: Lymphadenopathy, Tenderness, Thyromegaly Cardiovascular: Yes: Regular Rate and Rhythm, Murmur Respiratory: Yes: some LLL rales Gastrointestinal: Yes: Normal Bowel Sounds, Soft. No: Hepatomegaly, Splenomegaly, Tenderness Musculoskeletal: Yes: Back Pain Extremities: No: Cold, Cyanosis Edema: No Peripheral Pulses WNL: No Last Vital Signs Temp Pulse Resp BP Pulse Ox 97.4 F L 111 H 20 112/80 97 04/24/17 15:03 04/24/17 15:03 04/24/17 15:03 04/24/17 15:03 04/23/17 21:00 CBC, BMP 04/24/17 06:20 04/24/17 06:20 Current Medications Generic Name Dose Route Start Last Admin Trade Name Freq PRN Reason Stop Dose Admin Acetaminophen 650 mg 04/21/17 07:47 Tylenol - PO Q6H PRN FEVER OR PAIN Amoxicillin/Clavulanate Potassium 1 tab 04/23/17 17:30 04/24/17 12:28 Augmentin - 875mg Tablet PO Not Given BID@0800,1730 JAMIE Apixaban 5 mg 04/21/17 10:00 04/24/17 12:28 Eliquis - PO Not Given BID JAMIE Atorvastatin Calcium 40 mg 04/21/17 22:00 04/23/17 22:33 Lipitor - PO Not Given HS JAMIE Gabapentin 400 mg 04/21/17 10:00 04/24/17 12:28 Neurontin - PO Not Given BID JAMIE Potassium Chloride/Dextrose/Sod Cl 20 meq in 1,000 mls @ 100 mls/hr 04/20/17 10:00 04/24/17 13:29 D5-1/2ns+20 Meq Kcl - IV 100 mls/hr ASDIR JAMIE Administration Potassium Chloride 50 meq/ 525 mls @ 100 mls/hr 04/24/17 12:30 04/24/17 14:12 Sodium Chloride IVPB 04/24/17 17:44 100 mls/hr ONCE ONE Administration Insulin Aspart 1 vial 04/21/17 11:00 04/24/17 14:19 Novolog Vial Sliding Scale - SQ Not Given TIDAC [facility] Protocol Metoclopramide HCl 10 mg 04/22/17 22:00 04/24/17 12:28 Reglan Injection - IVPUSH Not Given QID [facility] Metoprolol Tartrate 12.5 mg 04/19/17 13:31 04/24/17 12:28 Lopressor - PO Not Given BID [facility] Mirtazapine 15 mg 04/23/17 22:00 04/23/17 22:34 Remeron - PO 15 mg HS [facility] Administration Pantoprazole Sodium 20 mg 04/21/17 10:00 04/24/17 12:28 Protonix - PO Not Given DAILY [facility] 71 y/o patient with myeloma, on maintenance dick/dex, now with low grade fevers, aspiration , / lethargy,NPO. myeloma protein studies show remission. switched to PO antibiotics on nystatin neuro consult much appreciated await w.u TachYcardia: cards f/u CBC noted: platelets with down trend. likely in the setting of acute illness, will continue to monitor. for caogs severe hypoK/HyperNa/HyperCl: on d5 1/2NS w/KCL. will continue to monitor for now, renal consult will likely be nl once if/when Pareneteral nutrition is ensured awaiting PE decision
[2017-04-24 18:32] LABS: ANION GAP 10 (8-16); BLOOD UREA NITROGEN 4 mg/dL (7-18); CALCIUM 7.3 mg/dL (8.5-10.1); CHLORIDE 117 mmol/L (98-107); CO2 21 mmol/L (21-32); CREATININE 0.7 mg/dL (0.7-1.3); GLUCOSE,RANDOM 101 mg/dL (74-106); POTASSIUM 3.2 mmol/L (3.5-5.1); SODIUM 148 mmol/L (136-145)
[2017-04-24] MEDS: ATORVASTATIN CA 40 MG TABLET (FP) PO SCH (23:06)
[2017-04-24] MEDS: MIRTAZAPINE 15 MG TABLET (FP) PO SCH (23:07)
[2017-04-24] MEDS: ZINC OXIDE 20% TOPICAL OINTMENT 30 GM TUBE TP SCH (23:07)
[2017-04-25] MEDS: INSULIN SLIDING SCALE (NOVOLOG) 1 VIAL SQ SCH ×3 (06:47→19:00)
[2017-04-25] MEDS ORDERED: INSULIN (NOVOLOG) ASPART 100 UNITS/ML 10ML VIAL ONE ×2 (07:14→18:13)
[2017-04-25 08:09] LABS: HEMATOCRIT 31.8 % (35.4-49); HEMOGLOBIN 10.4 GM/dL (11.7-16.9); MCH 32.3 pg (25.7-33.7); MCHC 32.6 g/dl (32.0-35.9); MEAN CELL VOLUME 99.3 fl (80-96); MEAN PLT VOLUME 8.9 fl (7.5-11.1); PLATELET COUNT 113 K/MM3 (134-434); RBC 3.21 M/mm3 (4.00-5.60); WHITE BLOOD COUNT 4.1 K/mm3 (4.0-10.0)
[2017-04-25 08:21] LABS: INR 1.21 (0.82-1.09); PROTHROMBIN TIME (PATIENT) 13.7 SEC (9.98-11.88)
[2017-04-25 08:40] LABS: ANION GAP 9 (8-16); BILIRUBIN,TOTAL 0.4 mg/dL (0.2-1.0); BLOOD UREA NITROGEN 3 mg/dL (7-18); CHLORIDE 120 mmol/L (98-107); CO2 20 mmol/L (21-32); CREATININE 0.8 mg/dL (0.7-1.3); GLUCOSE,RANDOM 128 mg/dL (74-106); POTASSIUM 3.2 mmol/L (3.5-5.1); SGOT/AST 67 U/L (15-37); SGPT/ALT 34 U/L (12-78); SODIUM 149 mmol/L (136-145); TOT PROT 4.7 g/dl (6.4-8.2)
[2017-04-25 08:41] LABS: ALK PHOS 71 U/L (45-117)
[2017-04-25] MEDS: AMOX TR/POT CLAV 875MG/125MG TABLETS (FP) PO SCH ×2 (09:02→18:57)
[2017-04-25 09:10] LABS: CALCIUM 6.8 mg/dL (8.5-10.1)
--- NOTE | 2017-04-25 10:21 | PN ---
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, Physician History of Present Illness: pt awake and comfortable looks weak denies pain. afebrile +ve diarrhea-- watery / not foul smelling Nurse reports not taking meds-- spits out. not eating npo - Current Medication List Current Medications: Active Medications Acetaminophen (Tylenol -) 650 mg PO Q6H PRN PRN Reason: FEVER OR PAIN Amoxicillin/Clavulanate Potassium (Augmentin - 875mg Tablet) 1 tab PO BID@0800, 1730 [facility] Last Admin: 04/25/17 09:02 Dose: Not Given Apixaban (Eliquis -) 5 mg PO BID [facility] Last Admin: 04/24/17 23:06 Dose: Not Given Atorvastatin Calcium (Lipitor -) 40 mg PO [facility] Last Admin: 04/24/17 23:06 Dose: Not Given Gabapentin (Neurontin -) 400 mg PO BID [facility] Last Admin: 04/24/17 23:07 Dose: Not Given Potassium Chloride/Dextrose/Sod Cl (D5-1/2ns+20 Meq Kcl -) 20 meq in 1,000 mls @ 100 mls/hr IV ASDIR [facility] Last Admin: 04/24/17 23:05 Dose: 100 mls/hr Insulin Aspart (Novolog Vial Sliding Scale -) 1 vial SQ TIDAC [facility] PRN Reason: Protocol Last Admin: 04/25/17 06:47 Dose: Not Given Metoclopramide HCl (Reglan Injection -) 10 mg IVPUSH QID [facility] Last Admin: 04/24/17 23:07 Dose: Not Given Metoprolol Tartrate (Lopressor -) 12.5 mg PO BID [facility] Last Admin: 04/24/17 23:07 Dose: Not Given Mirtazapine (Remeron -) 15 mg PO HS [facility] Last Admin: 04/24/17 23:07 Dose: Not Given Multi-Ingredient Ointment (Zinc Oxide) 1 applic TP DAILY [facility] Last Admin: 04/24/17 23:07 Dose: 1 applic Nystatin (Nystop Powder -) 1 applic TP DAILY [facility] Pantoprazole Sodium (Protonix -) 20 mg PO DAILY [facility] Last Admin: 04/24/17 12:28 Dose: Not Given - Objective Vital Signs: Vital Signs Temperature 99.4 F 04/25/17 05:46 Pulse Rate 110 H 04/25/17 05:46 Respiratory Rate 18 04/25/17 05:46 Blood Pressure 119/79 04/25/17 05:46 O2 Sat by Pulse Oximetry (%) 94 L 04/24/17 21:00 Constitutional: Yes: No Distress, Other (weak) Eyes: Yes: Conjunctiva Clear Neck: Yes: Supple Cardiovascular: Yes: Pulse Irregular Respiratory: Yes: CTA Bilaterally Gastrointestinal: Yes: Normal Bowel Sounds, Soft Edema: No Neurological: Yes: Alert Labs: CBC, BMP 04/25/17 06:30 04/25/17 06:30 INR, PTT INR 1.21 (0.82-1.09) H D 04/25/17 06:30 Problem List - Problems (1) Anemia Code(s): D64.9 - ANEMIA, UNSPECIFIED Qualifiers: Bone marrow failure anemia type: pancytopenia, antineoplastic chemotherapy- induced (2) SOB (shortness of breath) Code(s): R06.02 - SHORTNESS OF BREATH (3) Atrial fibrillation Code(s): I48.91 - UNSPECIFIED ATRIAL FIBRILLATION Qualifiers: Atrial fibrillation type: paroxysmal Qualified Code(s): I48.0 - Paroxysmal atrial fibrillation (4) Multiple myeloma in remission Code(s): C90.01 - MULTIPLE MYELOMA IN REMISSION Assessment/Plan pt not taking meds will insert ngt - feeding and meds per ngt continue fluids gi to follow peg to be considered pt not agreeing for peg/ ngt -- discussed in detail says he will talk to his in person who is on her way here and will decide after that will follow discussed with nursing staff also. will follow will discuss with also
--- NOTE | 2017-04-25 10:24 | PN ---
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, Physician Chief Complaint: Generalized weakness Unable to swallow PO meds History of Present Illness: Patient was seen and examined. Chart was reviewed Generalized weakness Sinus tachycardia - Current Medication List Current Medications: Active Medications Acetaminophen (Tylenol -) 650 mg PO Q6H PRN PRN Reason: FEVER OR PAIN Amoxicillin/Clavulanate Potassium (Augmentin - 875mg Tablet) 1 tab PO BID@0800, 1730 [facility] Last Admin: 04/25/17 09:02 Dose: Not Given Apixaban (Eliquis -) 5 mg PO BID [facility] Last Admin: 04/24/17 23:06 Dose: Not Given Atorvastatin Calcium (Lipitor -) 40 mg PO HS [facility] Last Admin: 04/24/17 23:06 Dose: Not Given Gabapentin (Neurontin -) 400 mg PO BID [facility] Last Admin: 04/24/17 23:07 Dose: Not Given Potassium Chloride/Dextrose/Sod Cl (D5-1/2ns+20 Meq Kcl -) 20 meq in 1,000 mls @ 100 mls/hr IV ASDIR [facility] Last Admin: 04/24/17 23:05 Dose: 100 mls/hr Insulin Aspart (Novolog Vial Sliding Scale -) 1 vial SQ TIDAC [facility] PRN Reason: Protocol Last Admin: 04/25/17 06:47 Dose: Not Given Metoclopramide HCl (Reglan Injection -) 10 mg IVPUSH QID [facility] Last Admin: 04/24/17 23:07 Dose: Not Given Metoprolol Tartrate (Lopressor -) 12.5 mg PO BID [facility] Last Admin: 04/24/17 23:07 Dose: Not Given Mirtazapine (Remeron -) 15 mg PO [facility] Last Admin: 04/24/17 23:07 Dose: Not Given Multi-Ingredient Ointment (Zinc Oxide) 1 applic TP DAILY [facility] Last Admin: 04/24/17 23:07 Dose: 1 applic Nystatin (Nystop Powder -) 1 applic TP DAILY [facility] Pantoprazole Sodium (Protonix -) 20 mg PO DAILY [facility] Last Admin: 04/24/17 12:28 Dose: Not Given - Objective Vital Signs: Vital Signs Temperature 99.4 F 04/25/17 05:46 Pulse Rate 110 H 04/25/17 05:46 Respiratory Rate 18 04/25/17 05:46 Blood Pressure 119/79 04/25/17 05:46 O2 Sat by Pulse Oximetry (%) 94 L 04/24/17 21:00 Neck: Yes: Supple Cardiovascular: Yes: Regular Rate and Rhythm, Tachycardia, S1, S2 Respiratory: Yes: Diminished Gastrointestinal: Yes: Normal Bowel Sounds, Soft. No: Tenderness Edema: No Labs: CBC, BMP 04/25/17 06:30 04/25/17 06:30 INR, PTT INR 1.21 (0.82-1.09) H D 04/25/17 06:30 Problem List - Problems (1) CAD (coronary artery disease) Code(s): I25.10 - ATHSCL HEART DISEASE OF [place] CORONARY ARTERY W/O ANG PCTRS Qualifiers: Coronary Disease-Associated Artery/Lesion type: [place] artery [place] vs. transplanted heart: [place] heart Associated angina: without angina Qualified Code(s): I25.10 - Atherosclerotic heart disease of [place] coronary artery without angina pectoris (2) HTN (hypertension) Code(s): I10 - ESSENTIAL (PRIMARY) HYPERTENSION Qualifiers: Hypertension type: essential hypertension Qualified Code(s): I10 - Essential (primary) hypertension (3) Hypercholesterolemia Code(s): E78.00 - PURE HYPERCHOLESTEROLEMIA, UNSPECIFIED (4) Diabetes mellitus Code(s): E11.9 - TYPE 2 DIABETES MELLITUS WITHOUT COMPLICATIONS Qualifiers: Diabetes mellitus type: type 2 (5) Anemia Code(s): D64.9 - ANEMIA, UNSPECIFIED Qualifiers: Bone marrow failure anemia type: pancytopenia, antineoplastic chemotherapy- induced (6) Dysphagia Code(s): R13.10 - DYSPHAGIA, UNSPECIFIED Qualifiers: Dysphagia type: other dysphagia Qualified Code(s): R13.19 - Other dysphagia (7) SOB (shortness of breath) Code(s): R06.02 - SHORTNESS OF BREATH (8) Atrial fibrillation Code(s): I48.91 - UNSPECIFIED ATRIAL FIBRILLATION Qualifiers: Atrial fibrillation type: paroxysmal Qualified Code(s): I48.0 - Paroxysmal atrial fibrillation (9) Diastolic dysfunction Code(s): I51.9 - HEART DISEASE, UNSPECIFIED (10) Multiple myeloma in remission Code(s): C90.01 - MULTIPLE MYELOMA IN REMISSION (11) Thrombocytopenia Code(s): D69.6 - THROMBOCYTOPENIA, UNSPECIFIED Assessment/Plan 1. Progressive dyspnea on exertion and fatigue 2. Symptomatic anemia post transfusion 3. Paroxysmal atrial fibrillation with periods of rapid ventricular response currently in sinus rhythm [id number] score of 3 - on A/C with NOAC (Eliquis) 4. Coronary artery disease, angina pectoris 5. LV diastolic dysfunction with chronic class 0-I NYHA classification LV failure, compensated/euvolemic 6. Hypertension 7. DM 8. Hypercholesterolemia 9. Thrombocytopenia, resolved 10. History of multiple myeloma post stem cell transplant 11. History of peripheral neuropathy 12. Dysphagia, etiology to be determined evaluation in progress 13. Aspiration pneumonia PLAN: 1. Medication needs to be continued including Eliquis, Metoprolol and Lipitor 2. Antibiotics as per the ID 3. NGT or PEG to be considered 4. GI input to follow Further plans are to follow Dmitri Ngo MD
[2017-04-25] MEDS: D5-1/2NS+20 MEQ KCL - 20 MEQ/1,000 ML INFUS.BAG IV SCH ×2 (10:34→21:15)
--- NOTE | 2017-04-25 11:10 | CONSULT ---
Consult Consult Specialty:: Nephrology ( [facility]/ [facility]) Referred by:: Dr. Cannon Reason for Consultation:: Many thanks for this consult. This ia a 71 y/o male, with a significant past medical history of Paroxysmal Atrial fibrillation ,DM2, Multiple myeloma ( in remission), HTN, osteoarthritis of knees who presented to the ER on 04/08/17 with worsening SOB. The patient has also complaints of progressively worsening generalized weakness. This has been progressing weak prior to this. No chest pains. No denies any recent fevers, chills, headache or dizziness. The patient was profoundly anemic. Also noted was the patient's inability to swallow. GI, Neurology w/u in progress. The etiology of the dysphagia remains obscure. The patient had swallowing evaluations. Lately he is having diarrhea. He is also reporting "heart parra". - History of Present Illness Chief Complaint: Now his main complaint is weakness, and inability to swallow. 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 Medical History [employer]: Yes: Peripheral Neuropathy Cardio/Vascular: Yes: HTN Heme/Onc: Yes: Cancer (Multiple myeloma), Current Chemotherapy Psych: Yes: Depression Musculoskeletal: Yes: Osteoarthritis Additional Medical History: glaucoma with decreased vision and need for surgeryleft eye - Alcohol/Substance Use Hx Alcohol Use: No - Smoking History Smoking history: Unknown if ever smoked Have you smoked in the past 12 months: No If you are a former smoker, when did you quit?: 40yrs - Social History Usual Living Arrangement: With Spouse Home Medications - Allergies Allergies/Adverse Reactions: Allergies Allergy/AdvReac Type Severity Reaction Status Date / Time No Known Allergies Allergy Verified 04/08/17 11:08 - Home Medications Home Medications: Ambulatory Orders Atorvastatin Ca [Lipitor] 40 mg PO HS 10/04/16 Gabapentin 400 mg PO BID 10/04/16 Oxycodone Sr [Oxycontin] 10 mg PO Q6H PRN 10/04/16 Apixaban [Eliquis -] 5 mg PO BID 30 Days #60 tablet 03/27/17 Diltiazem Cd [Cardizem Cd -] 120 mg PO DAILY #30 cap.cd.24h 03/27/17 Metoprolol Tartrate [Lopressor -] 50 mg PO BID #90 tablet 03/27/17 Metformin HCl [Glucophage -] 500 mg PO DAILY #30 tablet 03/28/17 Acetaminophen [Tylenol .Regular Strength -] 650 mg PO Q6H PRN tablet 04/18/17 Amoxicillin/Potassium Clav [Augmentin 875-125 Tablet] 1 each PO BID #10 tablet MDD 2 04/18/17 Docusate Sodium [Colace -] 100 mg PO BID capsule 04/18/17 Pantoprazole Sodium [Protonix -] 20 mg PO DAILY tablet.ec 04/18/17 Polyethylene Glycol 3350 [Miralax 119 gm Btl -] 17 gm PO DAILY bottle 04/18/17 Review of Systems - Review of Systems Constitutional: reports: Loss of Appetite, Weakness HENT: reports: Difficult Swallowing Neck: reports: Pain on Movement Gastrointestinal: reports: Diarrhea Musculoskeletal: reports: Back Pain Neurological: reports: Dizziness, Numbness Psychiatric: reports: Depression Physical Exam Vital Signs: Vital Signs Temperature 99.4 F 04/25/17 05:46 Pulse Rate 110 H 04/25/17 05:46 Respiratory Rate 18 04/25/17 05:46 Blood Pressure 119/79 04/25/17 05:46 O2 Sat by Pulse Oximetry (%) 94 L 04/24/17 21:00 Constitutional: Yes: Anxious, Pallor HENT: Yes: Atraumatic, Normocephalic Neck: Yes: Trachea Midline Cardiovascular: Yes: Pulse Irregular, S1, S2 Respiratory: Yes: CTA Bilaterally, Diminished Gastrointestinal: Yes: Normal Bowel Sounds, Soft. No: Distention, Palpable Mass , Tenderness Renal/: No: Bladder Distention, CVA Tenderness - Left, CVA Tenderness - Right , Hematuria Musculoskeletal: Yes: Back Pain Extremities: No: Calf Tenderness Neurological: Yes: Alert, Oriented Psychiatric: Yes: Alert, Oriented Labs: CBC, BMP 04/25/17 06:30 04/25/17 06:30 Problem List - Problems (1) Acute hypernatremia Code(s): E87.0 - HYPEROSMOLALITY AND HYPERNATREMIA (2) Anemia Code(s): D64.9 - ANEMIA, UNSPECIFIED Qualifiers: Bone marrow failure anemia type: pancytopenia, antineoplastic chemotherapy- induced (3) CAD (coronary artery disease) Code(s): I25.10 - ATHSCL HEART DISEASE OF [place] CORONARY ARTERY W/O ANG PCTRS Qualifiers: Coronary Disease-Associated Artery/Lesion type: [place] artery [place] vs. transplanted heart: [place] heart Associated angina: without angina Qualified Code(s): I25.10 - Atherosclerotic heart disease of [place] coronary artery without angina pectoris (4) Diabetes mellitus Code(s): E11.9 - TYPE 2 DIABETES MELLITUS WITHOUT COMPLICATIONS Qualifiers: Diabetes mellitus type: type 2 (5) Dysphagia Code(s): R13.10 - DYSPHAGIA, UNSPECIFIED Qualifiers: Dysphagia type: other dysphagia Qualified Code(s): R13.19 - Other dysphagia (6) HTN (hypertension) Code(s): I10 - ESSENTIAL (PRIMARY) HYPERTENSION Qualifiers: Hypertension type: essential hypertension Qualified Code(s): I10 - Essential (primary) hypertension (7) Atrial fibrillation Code(s): I48.91 - UNSPECIFIED ATRIAL FIBRILLATION Qualifiers: Atrial fibrillation type: paroxysmal Qualified Code(s): I48.0 - Paroxysmal atrial fibrillation (8) Hypokalemia Code(s): E87.6 - HYPOKALEMIA (9) Multiple myeloma in remission Code(s): C90.01 - MULTIPLE MYELOMA IN REMISSION Assessment/Plan The patient is a 71 year old male, with a significant past medical history of: * Multiple myeloma in remission * Type 2 Diabetes mellitus * Severe anemia * Hypertension * Paroxysmal Atrial fibrillation. The patient has severe dysphagea, and the etiology of the same remains unclear. The patient is not taking anything by mouth, neither food nor medications. He has acute diarrhea now. Unlikely to be osmotic. C. diff negative. ? Secretory diarrhea. Noted GI on board. The Acute Hypernatremia could be attributable to free water loss from diarrhea. The Hypokalemia also may be explained on the same basis. Suggest: Need to elucidate the etiology of the dysphagea. In the interim ?NG tube/ ? PEG. IV fluids as ordered with KCl supplements. Will check Serum Mg levels. Will monitor Renal functions with you. Thanks again. Will follow with you. Brooklyn Grey MD
[2017-04-25 11:33] LABS: ANISOCYTOSIS 2+; MACROCYTOSIS 0; OVALOCYTE 1+; PLATELET ESTIMATE DECREASED; TEAR DROP CELLS 1+
--- NOTE | 2017-04-25 12:38 | PN ---
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, Physician History of Present Illness: Covering for Dr. Fuller, who will resume care on Wednesday. No events. Not in distress. Dyspahgia to solids and liquids. - Current Medication List Current Medications: Active Medications Acetaminophen (Tylenol -) 650 mg PO Q6H PRN PRN Reason: FEVER OR PAIN Amoxicillin/Clavulanate Potassium (Augmentin - 875mg Tablet) 1 tab PO BID@0800, 1730 [facility] Last Admin: 04/25/17 09:02 Dose: Not Given Apixaban (Eliquis -) 5 mg PO BID [facility] Last Admin: 04/24/17 23:06 Dose: Not Given Atorvastatin Calcium (Lipitor -) 40 mg PO HS [facility] Last Admin: 04/24/17 23:06 Dose: Not Given Gabapentin (Neurontin -) 400 mg PO BID [facility] Last Admin: 04/24/17 23:07 Dose: Not Given Potassium Chloride/Dextrose/Sod Cl (D5-1/2ns+20 Meq Kcl -) 20 meq in 1,000 mls @ 100 mls/hr IV ASDIR [facility] Last Admin: 04/25/17 10:34 Dose: 100 mls/hr Insulin Aspart (Novolog Vial Sliding Scale -) 1 vial SQ TIDAC [facility] PRN Reason: Protocol Last Admin: 04/25/17 06:47 Dose: Not Given Metoclopramide HCl (Reglan Injection -) 10 mg IVPUSH QID [facility] Last Admin: 04/24/17 23:07 Dose: Not Given Metoprolol Tartrate (Lopressor -) 12.5 mg PO BID [facility] Last Admin: 04/24/17 23:07 Dose: Not Given Mirtazapine (Remeron -) 15 mg PO HS [facility] Last Admin: 04/24/17 23:07 Dose: Not Given Multi-Ingredient Ointment (Zinc Oxide) 1 applic TP DAILY [facility] Last Admin: 04/24/17 23:07 Dose: 1 applic Nystatin (Nystop Powder -) 1 applic TP DAILY [facility] Pantoprazole Sodium (Protonix -) 20 mg PO DAILY [facility] Last Admin: 04/24/17 12:28 Dose: Not Given - Objective Vital Signs: Vital Signs Temperature 98.2 F 04/25/17 10:45 Pulse Rate 102 H 04/25/17 10:45 Respiratory Rate 18 04/25/17 10:45 Blood Pressure 112/72 04/25/17 10:45 O2 Sat by Pulse Oximetry (%) 94 L 04/24/17 21:00 Constitutional: Yes: No Distress, Calm Eyes: Yes: Conjunctiva Clear Gastrointestinal: Yes: Normal Bowel Sounds, Soft. No: Tenderness Neurological: Yes: Alert, Oriented Labs: CBC, BMP 04/25/17 06:30 04/25/17 06:30 INR, PTT INR 1.21 (0.82-1.09) H D 04/25/17 06:30 Abnormal Lab Results 04/24/17 04/25/17 04/25/17 17:45 06:30 06:30 RBC 3.21 L Hgb 10.4 L Hct 31.8 L MCV 99.3 H RDW 19.0 H Plt Count 113 L PT with INR 13.70 H INR 1.21 H D Sodium 148 H Potassium 3.2 L Chloride 117 H Carbon Dioxide BUN 4 L Random Glucose Calcium 7.3 L AST Total Protein Albumin 04/25/17 06:30 RBC Hgb Hct MCV RDW Plt Count PT with INR INR Sodium 149 H Potassium 3.2 L Chloride 120 H Carbon Dioxide 20 L BUN 3 L D Random Glucose 128 H D Calcium 6.8 L* AST 67 H D Total Protein 4.7 L Albumin 2.0 L Problem List - Problems (1) Anemia Code(s): D64.9 - ANEMIA, UNSPECIFIED Qualifiers: Bone marrow failure anemia type: pancytopenia, antineoplastic chemotherapy- induced (2) SOB (shortness of breath) Code(s): R06.02 - SHORTNESS OF BREATH (3) Atrial fibrillation Code(s): I48.91 - UNSPECIFIED ATRIAL FIBRILLATION Qualifiers: Atrial fibrillation type: paroxysmal Qualified Code(s): I48.0 - Paroxysmal atrial fibrillation (4) Multiple myeloma in remission Code(s): C90.01 - MULTIPLE MYELOMA IN REMISSION (5) Dysphagia Code(s): R13.10 - DYSPHAGIA, UNSPECIFIED Assessment/Plan Inadequate PO intake and not improving x 2 weeks. Discussed PEG placement with PCP this am. The patient agreed to PEG, his and son at bedside. Off anticoagulation (unable to take medications orally). Plan PEG next week. NGT was inserted for nutrition, hydration and medications. CXR prior to using NGT. Hold A/C.
--- NOTE | 2017-04-25 14:16 | PN ---
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, Physician History of Present Illness: PULMONARY ALERT,NGT INSERTED SECONDARY TO DYSPHAGIA - Current Medication List Current Medications: Active Medications Acetaminophen (Tylenol -) 650 mg PO Q6H PRN PRN Reason: FEVER OR PAIN Amoxicillin/Clavulanate Potassium (Augmentin - 875mg Tablet) 1 tab PO BID@0800, 1730 [facility] Last Admin: 04/25/17 09:02 Dose: Not Given Apixaban (Eliquis -) 5 mg PO BID [facility] Last Admin: 04/24/17 23:06 Dose: Not Given Atorvastatin Calcium (Lipitor -) 40 mg PO HS [facility] Last Admin: 04/24/17 23:06 Dose: Not Given Gabapentin (Neurontin -) 400 mg PO BID [facility] Last Admin: 04/24/17 23:07 Dose: Not Given Potassium Chloride/Dextrose/Sod Cl (D5-1/2ns+20 Meq Kcl -) 20 meq in 1,000 mls @ 100 mls/hr IV ASDIR [facility] Last Admin: 04/25/17 10:34 Dose: 100 mls/hr Insulin Aspart (Novolog Vial Sliding Scale -) 1 vial SQ TIDAC [facility] PRN Reason: Protocol Last Admin: 04/25/17 06:47 Dose: Not Given Metoclopramide HCl (Reglan Injection -) 10 mg IVPUSH QID [facility] Last Admin: 04/24/17 23:07 Dose: Not Given Metoprolol Tartrate (Lopressor -) 12.5 mg PO BID [facility] Last Admin: 04/24/17 23:07 Dose: Not Given Mirtazapine (Remeron -) 15 mg PO [facility] Last Admin: 04/24/17 23:07 Dose: Not Given Multi-Ingredient Ointment (Zinc Oxide) 1 applic TP DAILY [facility] Last Admin: 04/24/17 23:07 Dose: 1 applic Nystatin (Nystop Powder -) 1 applic TP DAILY [facility] Pantoprazole Sodium (Protonix -) 20 mg PO DAILY [facility] Last Admin: 04/24/17 12:28 Dose: Not Given - Objective Vital Signs: Vital Signs Temperature 98.2 F 04/25/17 10:45 Pulse Rate 102 H 04/25/17 10:45 Respiratory Rate 18 04/25/17 10:45 Blood Pressure 112/72 04/25/17 10:45 O2 Sat by Pulse Oximetry (%) 94 L 04/24/17 21:00 Constitutional: Yes: Well Nourished, Calm Eyes: Yes: WNL HENT: Yes: WNL Neck: Yes: WNL Cardiovascular: Yes: Pulse Irregular, S1, S2 Respiratory: Yes: Diminished Gastrointestinal: Yes: Normal Bowel Sounds, Soft Extremities: Yes: WNL Edema: No Labs: CBC, BMP 04/25/17 06:30 04/25/17 06:30 INR, PTT INR 1.21 (0.82-1.09) H D 04/25/17 06:30 Problem List - Problems (1) Anemia Code(s): D64.9 - ANEMIA, UNSPECIFIED Qualifiers: Bone marrow failure anemia type: pancytopenia, antineoplastic chemotherapy- induced (2) SOB (shortness of breath) Code(s): R06.02 - SHORTNESS OF BREATH (3) Diastolic dysfunction Code(s): I51.9 - HEART DISEASE, UNSPECIFIED (4) Dyspnea Code(s): R06.00 - DYSPNEA, UNSPECIFIED (6) Thrombocytopenia Code(s): D69.6 - THROMBOCYTOPENIA, UNSPECIFIED (7) Atrial fibrillation Code(s): I48.91 - UNSPECIFIED ATRIAL FIBRILLATION Qualifiers: Atrial fibrillation type: paroxysmal Qualified Code(s): I48.0 - Paroxysmal atrial fibrillation Assessment/Plan IMP DYSPNEA IMPROVING S/P SYMPTOMATIC ANEMIA LV DIASTOLIC DYSFUNCTION ASHD PAF MM ANEMIA/THROMBOCYOPENIA HTN NIIDM PERIPHERAL NEUROPATHY WEAKNESS ? MYASTHENIA DYSPHAGIA PLAN O2 TRANSFUSION NEEDED ELIQUIS MONITOR H+H RATE CONTROL ANTIBIOTICS PER ID REPLETE K NEURO W/U PEG DR SERRANO Problem List - Problems (1) Anemia Code(s): D64.9 - ANEMIA, UNSPECIFIED Qualifiers: Bone marrow failure anemia type: pancytopenia, antineoplastic chemotherapy- induced (2) SOB (shortness of breath) Code(s): R06.02 - SHORTNESS OF BREATH (3) Diastolic dysfunction Code(s): I51.9 - HEART DISEASE, UNSPECIFIED (4) Dyspnea Code(s): R06.00 - DYSPNEA, UNSPECIFIED (6) Thrombocytopenia Code(s): D69.6 - THROMBOCYTOPENIA, UNSPECIFIED (7) Atrial fibrillation Code(s): I48.91 - UNSPECIFIED ATRIAL FIBRILLATION Qualifiers: Atrial fibrillation type: paroxysmal Qualified Code(s): I48.0 - Paroxysmal atrial fibrillation
--- NOTE | 2017-04-25 14:43 | PN ---
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 (short form) - Note 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: NGT position confirmed with CXR. May Use NGT as intended for hydration, medications, nutrition. Increase PPI to bid Continue to hold A/c for possible PEG tomorrow Problem List - Problems (1) Anemia Code(s): D64.9 - ANEMIA, UNSPECIFIED Qualifiers: Bone marrow failure anemia type: pancytopenia, antineoplastic chemotherapy- induced (2) SOB (shortness of breath) Code(s): R06.02 - SHORTNESS OF BREATH (3) Atrial fibrillation Code(s): I48.91 - UNSPECIFIED ATRIAL FIBRILLATION Qualifiers: Atrial fibrillation type: paroxysmal Qualified Code(s): I48.0 - Paroxysmal atrial fibrillation (4) Multiple myeloma in remission Code(s): C90.01 - MULTIPLE MYELOMA IN REMISSION (5) Dysphagia Code(s): R13.10 - DYSPHAGIA, UNSPECIFIED
[2017-04-25] MEDS ORDERED: LOPERAMIDE HCL 1 MG/5 ML UNIT DOSE CUP NGT PRN (14:45)
--- NOTE | 2017-04-25 14:49 | PN ---
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 (short form) - Note 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: Nutrition consultation requested Imodium via NGT 2 gms BID PRN diarrhea Problem List - Problems (1) Anemia Code(s): D64.9 - ANEMIA, UNSPECIFIED Qualifiers: Bone marrow failure anemia type: pancytopenia, antineoplastic chemotherapy- induced (2) SOB (shortness of breath) Code(s): R06.02 - SHORTNESS OF BREATH (3) Atrial fibrillation Code(s): I48.91 - UNSPECIFIED ATRIAL FIBRILLATION Qualifiers: Atrial fibrillation type: paroxysmal Qualified Code(s): I48.0 - Paroxysmal atrial fibrillation (4) Multiple myeloma in remission Code(s): C90.01 - MULTIPLE MYELOMA IN REMISSION (5) Dysphagia Code(s): R13.10 - DYSPHAGIA, UNSPECIFIED
[2017-04-25] MEDS: APIXABAN 5 MG TABLET PO SCH (15:10)
[2017-04-25] MEDS: METOCLOPRAMIDE HCL INJECTION 10 MG/2 ML VIAL IVPUSH SCH ×4 (15:11→22:49)
[2017-04-25] MEDS: GABAPENTIN 400 MG CAPSULE (FP) PO SCH ×2 (15:11→22:45)
[2017-04-25] MEDS: METOPROLOL TARTRATE 25 MG TABLET (FP) PO SCH ×2 (15:11→22:45)
[2017-04-25] MEDS: PANTOPRAZOLE 20 MG TABLET (FP) PO SCH (15:20)
[2017-04-25] MEDS ORDERED: PANTOPRAZOLE SOD 40 MG SUSPENSION PACKET NGT ONE (18:30)
[2017-04-25] MEDS: ZINC OXIDE 20% TOPICAL OINTMENT 30 GM TUBE TP SCH (18:56)
[2017-04-25] MEDS: NYSTATIN POWDER 100,000 UNITS/GM - 15 GM TOPICAL POWDER TP SCH (22:45)
[2017-04-25] MEDS: ATORVASTATIN CA 40 MG TABLET (FP) PO SCH (22:45)
[2017-04-25] MEDS: MIRTAZAPINE 15 MG TABLET (FP) PO SCH (22:45)
[2017-04-25] MEDS: PANTOPRAZOLE SOD 40 MG SUSPENSION PACKET NGT SCH (22:49)
[2017-04-26] MEDS: INSULIN SLIDING SCALE (NOVOLOG) 1 VIAL SQ SCH ×3 (06:13→17:21)
[2017-04-26] MEDS: D5-1/2NS+20 MEQ KCL - 20 MEQ/1,000 ML INFUS.BAG IV SCH (07:49)
[2017-04-26 08:42] LABS: INR 1.17 (0.82-1.09); PROTHROMBIN TIME (PATIENT) 13.2 SEC (9.98-11.88)
[2017-04-26] MEDS: AMOX TR/POT CLAV 875MG/125MG TABLETS (FP) PO SCH (09:08)
[2017-04-26] MEDS: METOPROLOL TARTRATE 25 MG TABLET (FP) PO SCH ×2 (09:10→21:53)
[2017-04-26 09:17] LABS: ACTIVATED PTT 16.6 SECONDS (26.9-34.4)
[2017-04-26 09:21] LABS: ALBUMIN 1.9 g/dl (3.4-5.0); ANION GAP 11 (8-16); BILIRUBIN,TOTAL 0.4 mg/dL (0.2-1.0); BLOOD UREA NITROGEN 3 mg/dL (7-18); CHLORIDE 119 mmol/L (98-107); CO2 18 mmol/L (21-32); CREATININE 0.6 mg/dL (0.7-1.3); GLUCOSE,RANDOM 121 mg/dL (74-106); MAGNESIUM 1.8 mg/dL (1.8-2.4); POTASSIUM 3.2 mmol/L (3.5-5.1); SGOT/AST 69 U/L (15-37); SGPT/ALT 35 U/L (12-78); SODIUM 148 mmol/L (136-145); TOT PROT 4.6 g/dl (6.4-8.2); URIC ACID 3.2 mg/dL (2.6-7.2)
[2017-04-26] MEDS: GABAPENTIN 400 MG CAPSULE (FP) PO SCH ×2 (09:21→21:53)
--- NOTE | 2017-04-26 09:22 | PN ---
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 (short form) - Note 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: events noted scheduled for peg today-- pt again changed his mind not to get feeding tube I spoke to him/his on phone After prolong discussion- with both of them - pt agrees no complains comfortable ngt was placed last night. Vital Signs Temp 97.9 F 04/26/17 06:10 Pulse 77 04/26/17 06:10 Resp 18 04/26/17 06:10 BP 143/77 04/26/17 06:10 Pulse Ox 96 04/25/17 21:00 Intake & Output 04/25/17 04/25/17 04/26/17 11:59 23:59 11:59 Intake Total 700 1200 1100 Balance 700 1200 1100 Intake: IV 700 1200 1100 D5-1/2NS+20 MEQ KCL - 20 700 1200 1100 meq In 1,000 ml @ 100 mls /hr IV ASDIR [facility] Rx#: [id number] Other: Voiding Method Incontinent Incontinent Diaper Bowel Movement Yes: 2 Yes: 1 Yes # Bowel Movements 4 1 Active Medications Acetaminophen (Tylenol -) 650 mg PO Q6H PRN PRN Reason: FEVER OR PAIN Amoxicillin/Clavulanate Potassium (Augmentin - 875mg Tablet) 1 tab PO BID@0800, 1730 [facility] Last Admin: 04/26/17 09:08 Dose: Not Given Apixaban (Eliquis -) 5 mg PO BID [facility] Last Admin: 04/25/17 15:10 Dose: Not Given Atorvastatin Calcium (Lipitor -) 40 mg PO HS [facility] Last Admin: 04/25/17 22:45 Dose: Not Given Gabapentin (Neurontin -) 400 mg PO BID [facility] Last Admin: 04/25/17 22:45 Dose: Not Given Potassium Chloride/Dextrose/Sod Cl (D5-1/2ns+20 Meq Kcl -) 20 meq in 1,000 mls @ 100 mls/hr IV ASDIR [facility] Last Admin: 04/25/17 21:15 Dose: 100 mls/hr Insulin Aspart (Novolog Vial Sliding Scale -) 1 vial SQ TIDAC [facility] PRN Reason: Protocol Last Admin: 04/26/17 06:13 Dose: Not Given Loperamide HCl (Imodium Liquid -) 2 mg NGT BID PRN PRN Reason: DIARRHEA Metoclopramide HCl (Reglan Injection -) 10 mg IVPUSH QID [facility] Last Admin: 04/25/17 22:49 Dose: 10 mg Metoprolol Tartrate (Lopressor -) 12.5 mg PO BID [facility] Last Admin: 04/25/17 22:45 Dose: Not Given Mirtazapine (Remeron -) 15 mg PO HS [facility] Last Admin: 04/25/17 22:45 Dose: Not Given Multi-Ingredient Ointment (Zinc Oxide) 1 applic TP DAILY [facility] Last Admin: 04/25/17 18:56 Dose: 1 applic Nystatin (Nystop Powder -) 1 applic TP DAILY [facility] Last Admin: 04/25/17 22:45 Dose: 1 applic Pantoprazole Sodium (Protonix Packets For Oral Suspension -) 40 mg NGT BID [facility] Last Admin: 04/25/17 22:49 Dose: 40 mg todays- labs - pending. Physical Exam. awake/ comfortable. no distress. ngt + lungs- Diminished at bases cvs- s1, s2 rrr abd - soft/ non tender ext- no edema neuro- ao x3 ASSESSMENT/PLAN: GI Bleed pneumonia Acute renal failure- better--back to baseline hypernatremia--- poor appetite depression Plan feeding tube today ngt to be taken out after peg start working discussed with Dr. Fuller also discussed with nursing staff also. will follow. Problem List - Problems (1) Anemia Code(s): D64.9 - ANEMIA, UNSPECIFIED Qualifiers: Bone marrow failure anemia type: pancytopenia, antineoplastic chemotherapy- induced (2) SOB (shortness of breath) Code(s): R06.02 - SHORTNESS OF BREATH (3) Atrial fibrillation Code(s): I48.91 - UNSPECIFIED ATRIAL FIBRILLATION Qualifiers: Atrial fibrillation type: paroxysmal Qualified Code(s): I48.0 - Paroxysmal atrial fibrillation (4) Multiple myeloma in remission Code(s): C90.01 - MULTIPLE MYELOMA IN REMISSION
[2017-04-26 09:26] LABS: ALK PHOS 71 U/L (45-117)
[2017-04-26 09:40] LABS: CALCIUM 6.7 mg/dL (8.5-10.1); PHOSPHOROUS 0.7 mg/dL (2.5-4.9)
[2017-04-26] MEDS ORDERED: PROPOFOL 20 ML ONE (09:42)
[2017-04-26] MEDS ORDERED: ceFAZolin SODIUM 1 GM VIAL ONE (09:51)
[2017-04-26] MEDS ORDERED: CEFAZOLIN 1 GM/D5W 1 GM/50 ML BAG IVPB STA (09:57)
[2017-04-26] MEDS ORDERED: CEFAZOLIN 1 GM PUSH 1 GM/10 ML DISP.SYRIN IVPUSH STA (10:01)
[2017-04-26] MEDS ORDERED: ceFAZolin SODIUM 1 GM VIAL IVPB ONE (10:05)
--- NOTE | 2017-04-26 10:25 | PN ---
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 (short form) - Note 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: GI Procedure Note: Please see scanned EGD-PEG report. Will start feedings. Avoid Eliquis and other anticoagulation for 5 days. Problem List - Problems (1) Dysphagia Code(s): R13.10 - DYSPHAGIA, UNSPECIFIED Qualifiers: Dysphagia type: other dysphagia Qualified Code(s): R13.19 - Other dysphagia (2) Anemia Code(s): D64.9 - ANEMIA, UNSPECIFIED Qualifiers: Bone marrow failure anemia type: pancytopenia, antineoplastic chemotherapy- induced
[2017-04-26] MEDS ORDERED: POTASSIUM PHOSPHATE 30 MM in DEXTROSE 5%-WATER - 500 ML IVPB ONE (11:19)
[2017-04-26] MEDS: PANTOPRAZOLE SOD 40 MG SUSPENSION PACKET NGT SCH ×2 (11:29→21:54)
[2017-04-26] MEDS: METOCLOPRAMIDE HCL INJECTION 10 MG/2 ML VIAL IVPUSH SCH ×4 (11:45→21:54)
--- NOTE | 2017-04-26 12:01 | PN ---
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 (short form) - Note 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: PULMONARY s/p PEG placement. Denies shortness of breath or chest pain. No cough or wheezing. Last Vital Signs Temp Pulse Resp BP Pulse Ox 97.7 F 101 H 18 128/84 98 04/26/17 11:00 04/26/17 11:00 04/26/17 11:00 04/26/17 11:00 04/26/17 11:00 Gen: NAD at rest Heart: RRR Lung: decreased breath sounds at the bases Abd: soft, nontender, +PEG Ext: no edema CBC, BMP 04/26/17 07:00 04/26/17 09:00 Active Medications Acetaminophen (Tylenol -) 650 mg PO Q6H PRN PRN Reason: FEVER OR PAIN Amoxicillin/Clavulanate Potassium (Augmentin - 875mg Tablet) 1 tab PO BID@0800, 1730 [facility] Last Admin: 04/26/17 09:08 Dose: Not Given Apixaban (Eliquis -) 5 mg PO BID [facility] Last Admin: 04/25/17 15:10 Dose: Not Given Atorvastatin Calcium (Lipitor -) 40 mg PO HS [facility] Last Admin: 04/25/17 22:45 Dose: Not Given Bacitracin (Bacitracin -) 1 applic TP BID [facility] Gabapentin (Neurontin -) 400 mg PO BID [facility] Last Admin: 04/25/17 22:45 Dose: Not Given Potassium Chloride/Dextrose/Sod Cl (D5-1/2ns+20 Meq Kcl -) 20 meq in 1,000 mls @ 100 mls/hr IV ASDIR [facility] Last Admin: 04/26/17 07:49 Dose: 100 mls/hr Cefazolin Sodium (Ancef -) 1 gm in 10 mls @ 120 mls/hr IVPUSH Q8H-IV JAMIE Potassium Phosphate 30 mm/ (Dextrose) 510 mls @ 63.75 mls/hr IVPB ONCE ONE Stop: 04/26/17 19:18 Insulin Aspart (Novolog Vial Sliding Scale -) 1 vial SQ TIDAC [facility] PRN Reason: Protocol Last Admin: 04/26/17 06:13 Dose: Not Given Loperamide HCl (Imodium Liquid -) 2 mg NGT BID PRN PRN Reason: DIARRHEA Metoclopramide HCl (Reglan Injection -) 10 mg IVPUSH QID [facility] Last Admin: 04/26/17 11:45 Dose: 10 mg Metoprolol Tartrate (Lopressor -) 12.5 mg PO BID [facility] Last Admin: 04/25/17 22:45 Dose: Not Given Mirtazapine (Remeron -) 15 mg PO HS [facility] Last Admin: 04/25/17 22:45 Dose: Not Given Multi-Ingredient Ointment (Zinc Oxide) 1 applic TP DAILY [facility] Last Admin: 04/25/17 18:56 Dose: 1 applic Nystatin (Nystop Powder -) 1 applic TP DAILY [facility] Last Admin: 04/25/17 22:45 Dose: 1 applic Pantoprazole Sodium (Protonix Packets For Oral Suspension -) 40 mg NGT BID [facility] Last Admin: 04/26/17 11:29 Dose: 40 mg A/P Dysphagia s/p PEG placement Aspiration Pneumonia CAD LV Diastolic Dysfunction Paroxysmal Atrial Fibrillation Multiple Myeloma HTN DM Anemia - complete antibiotics - enteral feeds - aspiration precautions - rate controlled - resume anticoagulation - monitor H/H
--- NOTE | 2017-04-26 12:59 | PN ---
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, Physician History of Present Illness: Posr PEG placement for continued dysphagia for liquids and solids. - Current Medication List Current Medications: Active Medications Acetaminophen (Tylenol -) 650 mg PO Q6H PRN PRN Reason: FEVER OR PAIN Amoxicillin/Clavulanate Potassium (Augmentin - 875mg Tablet) 1 tab PO BID@0800, 1730 [facility] Last Admin: 04/26/17 09:08 Dose: Not Given Apixaban (Eliquis -) 5 mg PO BID [facility] Last Admin: 04/25/17 15:10 Dose: Not Given Atorvastatin Calcium (Lipitor -) 40 mg PO HS [facility] Last Admin: 04/25/17 22:45 Dose: Not Given Bacitracin (Bacitracin -) 1 applic TP BID [facility] Gabapentin (Neurontin -) 400 mg PO BID [facility] Last Admin: 04/26/17 09:21 Dose: Not Given Potassium Chloride/Dextrose/Sod Cl (D5-1/2ns+20 Meq Kcl -) 20 meq in 1,000 mls @ 100 mls/hr IV ASDIR [facility] Last Admin: 04/26/17 07:49 Dose: 100 mls/hr Cefazolin Sodium (Ancef -) 1 gm in 10 mls @ 120 mls/hr IVPUSH Q8H-IV JAMIE Potassium Phosphate 30 mm/ (Dextrose) 510 mls @ 63.75 mls/hr IVPB ONCE ONE Stop: 04/26/17 19:18 Insulin Aspart (Novolog Vial Sliding Scale -) 1 vial SQ TIDAC [facility] PRN Reason: Protocol Last Admin: 04/26/17 12:15 Dose: Not Given Loperamide HCl (Imodium Liquid -) 2 mg NGT BID PRN PRN Reason: DIARRHEA Metoclopramide HCl (Reglan Injection -) 10 mg IVPUSH QID [facility] Last Admin: 04/26/17 11:45 Dose: 10 mg Metoprolol Tartrate (Lopressor -) 12.5 mg PO BID [facility] Last Admin: 04/25/17 22:45 Dose: Not Given Mirtazapine (Remeron -) 15 mg PO [facility] Last Admin: 04/25/17 22:45 Dose: Not Given Multi-Ingredient Ointment (Zinc Oxide) 1 applic TP DAILY [facility] Last Admin: 04/25/17 18:56 Dose: 1 applic Nystatin (Nystop Powder -) 1 applic TP DAILY [facility] Last Admin: 04/25/17 22:45 Dose: 1 applic Pantoprazole Sodium (Protonix Packets For Oral Suspension -) 40 mg NGT BID [facility] Last Admin: 04/26/17 11:29 Dose: 40 mg - Objective Vital Signs: Vital Signs Temperature 97.7 F 04/26/17 11:00 Pulse Rate 101 H 04/26/17 11:00 Respiratory Rate 18 04/26/17 11:00 Blood Pressure 128/84 04/26/17 11:00 O2 Sat by Pulse Oximetry (%) 98 04/26/17 11:00 Constitutional: Yes: No Distress, Calm Neck: Yes: Supple Cardiovascular: Yes: Regular Rate and Rhythm Respiratory: Yes: Regular, Diminished Gastrointestinal: Yes: Soft, Hypoactive Bowel Sounds, Other (PEG tube in place) Edema: No Labs: CBC, BMP 04/26/17 07:00 04/26/17 09:00 INR, PTT INR 1.17 (0.82-1.09) H 04/26/17 07:00 Problem List - Problems (1) SOB (shortness of breath) Code(s): R06.02 - SHORTNESS OF BREATH (2) Atrial fibrillation Code(s): I48.91 - UNSPECIFIED ATRIAL FIBRILLATION Qualifiers: Atrial fibrillation type: paroxysmal Qualified Code(s): I48.0 - Paroxysmal atrial fibrillation (3) Diastolic dysfunction Code(s): I51.9 - HEART DISEASE, UNSPECIFIED (4) Hypokalemia Code(s): E87.6 - HYPOKALEMIA (5) Multiple myeloma in remission Code(s): C90.01 - MULTIPLE MYELOMA IN REMISSION (6) Anemia Code(s): D64.9 - ANEMIA, UNSPECIFIED Qualifiers: Bone marrow failure anemia type: pancytopenia, antineoplastic chemotherapy- induced (7) Dysphagia Code(s): R13.10 - DYSPHAGIA, UNSPECIFIED Qualifiers: Dysphagia type: other dysphagia Qualified Code(s): R13.19 - Other dysphagia (8) Status post insertion of percutaneous endoscopic gastrostomy (PEG) tube Code(s): Z93.1 - GASTROSTOMY STATUS (9) Dysphagia Code(s): R13.10 - DYSPHAGIA, UNSPECIFIED Qualifiers: Dysphagia type: esophageal phase Qualified Code(s): R13.10 - Dysphagia, unspecified Assessment/Plan 1. Dysphagia s/p PEG placement 2. Symptomatic anemia post transfusion 3. Paroxysmal atrial fibrillation with periods of rapid ventricular response currently in sinus rhythm [id number] score of 3 - off A/C with NOAC (Eliquis) 4. Coronary artery disease, angina pectoris 5. LV diastolic dysfunction with chronic class 0-I NYHA classification LV failure, compensated/euvolemic 6. Hypertension 7. DM 8. Hypercholesterolemia 9. Thrombocytopenia, resolved 10. History of multiple myeloma post stem cell transplant 11. History of peripheral neuropathy 12. Dysphagia with delayed esophageal emptying 13. Recurrent fever - LLL asp pneumonia PLAN: 1. Complete antibiotic course as per ID, replete K 2. Resume Eliquis 5 bid 5 days post PEG per GI, resume Lopressor 12.5 bid, Lipitor 40 qhs, enteral feeds with free water flushes 3. Aspiration precautions, Protonix bid
[2017-04-26] MEDS ORDERED: POTASSIUM CHLORIDE ORAL LIQUID 20 MEQ/15 ML PEG ONE ×2 (13:45→16:30)
--- NOTE | 2017-04-26 14:15 | PN ---
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, MINE MANAGER - Note 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: Medical events noted. MBS- swallow normal but with gagging/vomiting. UGI-vomited/aspirated. PEG inserted as pt was unable to keep food/liquid down without vomiting. Duodenitis/Esophagitis. Etiology of vomiting? Attempt to desensitize with small amount of PO trials? To discuss with GI.
[2017-04-26 14:20] LABS: BASO % 0.6 % (0-2.0); EOS % 0.7 % (0-4.5); HEMOGLOBIN 10.5 GM/dL (11.7-16.9); LYMPH % 14.1 % (8-40); MCH 31.8 pg (25.7-33.7); MCHC 31.9 g/dl (32.0-35.9); MEAN CELL VOLUME 99.7 fl (80-96); MONO % 11.4 % (3.8-10.2); NEUT % 73.2 % (42.8-82.8); PLATELET COUNT 107 K/MM3 (134-434); RBC 3.31 M/mm3 (4.00-5.60); RDW 19.5 % (11.9-15.9); WHITE BLOOD COUNT 6.1 K/mm3 (4.0-10.0)
[2017-04-26] MEDS: ZINC OXIDE 20% TOPICAL OINTMENT 30 GM TUBE TP SCH (15:25)
[2017-04-26] MEDS: NYSTATIN POWDER 100,000 UNITS/GM - 15 GM TOPICAL POWDER TP SCH (15:25)
[2017-04-26] MEDS ORDERED: LORazepam 2 MG/ML SDV VIAL IVPUSH PRN (15:59)
--- NOTE | 2017-04-26 16:41 | PN ---
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 (short form) - Note 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: Renal follow up for Hypernatremia/Hypokalemia Pt seen and examined at the bedside awake and alert no acute complaints will start using G-tube today no sob, chest pain, abd pain Vital Signs Temperature 98.3 F 04/26/17 14:38 Pulse Rate 118 H 04/26/17 14:38 Respiratory Rate 20 04/26/17 14:38 Blood Pressure 116/63 04/26/17 14:38 O2 Sat by Pulse Oximetry (%) 98 04/26/17 11:00 Intake & Output 04/23/17 04/24/17 04/25/17 04/26/17 23:59 23:59 23:59 23:59 Intake Total 950 1400 1900 1400 Balance 950 1400 1900 1400 NAD RRR soft Obese, NT/ND No Le edema CBC, BMP 04/26/17 13:40 04/26/17 09:00 Current Medications Acetaminophen (Tylenol -) 650 mg PO Q6H PRN PRN Reason: FEVER OR PAIN Amoxicillin/Clavulanate Potassium (Augmentin - 875mg Tablet) 1 tab PO BID@0800, 1730 [facility] Last Admin: 04/26/17 09:08 Dose: Not Given Apixaban (Eliquis -) 5 mg PO BID [facility] Last Admin: 04/25/17 15:10 Dose: Not Given Atorvastatin Calcium (Lipitor -) 40 mg PO HS [facility] Last Admin: 04/25/17 22:45 Dose: Not Given Bacitracin (Bacitracin -) 1 applic TP BID [facility] Gabapentin (Neurontin -) 400 mg PO BID [facility] Last Admin: 04/26/17 09:21 Dose: Not Given Potassium Chloride/Dextrose/Sod Cl (D5-1/2ns+20 Meq Kcl -) 20 meq in 1,000 mls @ 100 mls/hr IV ASDIR [facility] Last Admin: 04/26/17 07:49 Dose: 100 mls/hr Cefazolin Sodium (Ancef -) 1 gm in 10 mls @ 120 mls/hr IVPUSH Q8H-IV JAMIE Potassium Phosphate 30 mm/ (Dextrose) 510 mls @ 63.75 mls/hr IVPB ONCE ONE Stop: 04/26/17 19:18 Last Admin: 04/26/17 15:08 Dose: 63.75 mls/hr Insulin Aspart (Novolog Vial Sliding Scale -) 1 vial SQ TIDAC JAMIE PRN Reason: Protocol Last Admin: 04/26/17 12:15 Dose: Not Given Loperamide HCl (Imodium Liquid -) 2 mg NGT BID PRN PRN Reason: DIARRHEA Lorazepam (Ativan Injection -) 2 mg IVPUSH Q6H PRN Metoclopramide HCl (Reglan Injection -) 10 mg IVPUSH QID [facility] Last Admin: 04/26/17 14:45 Dose: 10 mg Metoprolol Tartrate (Lopressor -) 12.5 mg PO BID [facility] Last Admin: 04/26/17 09:10 Dose: Not Given Mirtazapine (Remeron -) 15 mg PO HS [facility] Last Admin: 04/25/17 22:45 Dose: Not Given Multi-Ingredient Ointment (Zinc Oxide) 1 applic TP DAILY [facility] Last Admin: 04/25/17 18:56 Dose: 1 applic Nystatin (Nystop Powder -) 1 applic TP DAILY [facility] Last Admin: 04/25/17 22:45 Dose: 1 applic Pantoprazole Sodium (Protonix Packets For Oral Suspension -) 40 mg NGT BID [facility] Last Admin: 04/26/17 11:29 Dose: 40 mg 71 year old gentleman with PMhx of Atrial fibrillation ,DM2, Multiple myeloma ( in remission), HTN, osteoarthritis of knees who presented to the ER on with worsening SOB and found to have hypernatremia, hypokalemia and hypophosphatemia. #Hypernatremia Free water via G-tube as tolerated trend Na daily continue hypotonic saline #Hypokalemia getting KCL with IVF to get K-phos IV as well Mg at goal trend daily #Hypophosphatemia give K-phos 30mmol x 1 Check Repat labs this evening tube feeds to start today check Vit D levels Thank you Jem Quezada DO
[2017-04-26] MEDS: ACETAMINOPHEN 325 MG TABLET (FP) PO PRN (17:51)
[2017-04-26] MEDS: CEFAZOLIN 1 GM PUSH 1 GM/10 ML DISP.SYRIN IVPUSH SCH (17:52)
[2017-04-26] MEDS ORDERED: PT OWN MED DRAWER 7, Y5N ONE ×2 (18:53→21:47)
[2017-04-26 19:04] LABS: POTASSIUM 3.7 mmol/L (3.5-5.1)
[2017-04-26 19:13] LABS: PHOSPHOROUS 0.8 mg/dL (2.5-4.9)
[2017-04-26] MEDS: ATORVASTATIN CA 40 MG TABLET (FP) PO SCH (21:53)
[2017-04-26] MEDS: MIRTAZAPINE 15 MG TABLET (FP) PO SCH (21:53)
[2017-04-26] MEDS: BACITRACIN 15 GM TUBE TOPICAL OINTMENT TP SCH (22:00)
[2017-04-26] MEDS ORDERED: POTASSIUM PHOSPHATE 45 MM in SODIUM CHLORIDE 500 ML IVPB ONE (23:15)
--- NOTE | 2017-04-26 23:36 | PN ---
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 (short form) - Note 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: Patient seen and examined clinically improved Last Vital Signs Temp Pulse Resp BP Pulse Ox 98.4 F 107 H 20 100/62 98 04/26/17 21:50 04/26/17 21:50 04/26/17 21:50 04/26/17 21:50 04/26/17 21:00 Cor: RSR, No murmurs, No gallops Lungs: decreased at bases Abd: Soft, Normal bowel sounds, No organomegaly Ext:edema Abnormal Lab Results 04/26/17 04/26/17 04/26/17 07:00 09:00 13:40 RBC 3.31 L Hgb 10.5 L Hct 33.0 L MCV 99.7 H MCHC 31.9 L RDW 19.5 H Plt Count 107 L Monocytes % 11.4 H PT with INR 13.20 H INR 1.17 H PTT (Actin FS) 16.6 L D Sodium 148 H Potassium 3.2 L Chloride 119 H Carbon Dioxide 18 L BUN 3 L Creatinine 0.6 L D Random Glucose 121 H Calcium 6.7 L* Phosphorus 0.7 L* AST 69 H Total Protein 4.6 L Albumin 1.9 L 04/26/17 17:30 RBC Hgb Hct MCV MCHC RDW Plt Count Monocytes % PT with INR INR PTT (Actin FS) Sodium Potassium Chloride Carbon Dioxide BUN Creatinine Random Glucose Calcium Phosphorus 0.8 L* AST Total Protein Albumin Home Medication List Medication Instructions Recorded Confirmed Type Atorvastatin Ca [Lipitor] 40 mg PO HS 10/04/16 04/08/17 History Gabapentin 400 mg PO BID 10/04/16 04/08/17 History Oxycodone Sr [Oxycontin] 10 mg PO Q6H PRN 10/04/16 04/08/17 History Active Medications Generic Name Dose Route Start Last Admin Trade Name Freq PRN Reason Stop Dose Admin Acetaminophen 650 mg 04/21/17 07:47 04/26/17 17:51 Tylenol - PO 650 mg Q6H PRN Administration FEVER OR PAIN Apixaban 5 mg 04/21/17 10:00 04/25/17 15:10 Eliquis - PO Not Given BID JAMIE Atorvastatin Calcium 40 mg 04/21/17 22:00 04/26/17 21:53 Lipitor - PO 40 mg HS JAMIE Administration Bacitracin 1 applic 04/26/17 22:00 Bacitracin - TP BID JAMIE Gabapentin 400 mg 04/21/17 10:00 04/26/17 21:53 Neurontin - PO 400 mg BID JAMIE Administration Potassium Chloride/Dextrose/Sod Cl 20 meq in 1,000 mls @ 100 mls/hr 04/20/17 10:00 04/26/17 07:49 D5-1/2ns+20 Meq Kcl - IV 100 mls/hr ASDIR JAMIE Administration Cefazolin Sodium 1 gm in 10 mls @ 120 mls/hr 04/26/17 18:00 04/26/17 17:52 Ancef - IVPUSH 120 mls/hr Q8H-IV JAMIE Administration Potassium Phosphate 45 mm/ 515 mls @ 64.375 mls/hr 04/26/17 23:15 Sodium Chloride IVPB 04/27/17 07:14 ONCE ONE Insulin Aspart 1 vial 04/21/17 11:00 04/26/17 17:21 Novolog Vial Sliding Scale - SQ Not Given TIDAC [facility] Protocol Loperamide HCl 2 mg 04/25/17 14:45 Imodium Liquid - NGT BID PRN DIARRHEA Lorazepam 2 mg 04/26/17 15:59 Ativan Injection - IVPUSH Q6H PRN Metoclopramide HCl 10 mg 04/22/17 22:00 04/26/17 21:54 Reglan Injection - IVPUSH 10 mg QID JAMIE Administration Metoprolol Tartrate 12.5 mg 04/19/17 13:31 04/26/17 21:53 Lopressor - PO 12.5 mg BID JAMIE Administration Mirtazapine 15 mg 04/23/17 22:00 04/26/17 21:53 Remeron - PO 15 mg HS JAMIE Administration Multi-Ingredient Ointment 1 applic 04/24/17 22:00 04/26/17 15:25 Zinc Oxide TP 1 applic DAILY JAMIE Administration Nystatin 1 applic 04/25/17 22:00 04/26/17 15:25 Nystop Powder - TP 1 applic DAILY JAMIE Administration Pantoprazole Sodium 40 mg 04/25/17 22:00 04/26/17 21:54 Protonix Packets For Oral Suspension - NGT 40 mg BID JAMIE Administration A/P 71 y/o patient with myeloma, on maintenance dick/dex, now with low grade fevers, aspiration myeloma protein stdies show remission neuro consult appreciated -- 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
[2017-04-27] MEDS: CEFAZOLIN 1 GM PUSH 1 GM/10 ML DISP.SYRIN IVPUSH SCH ×3 (01:39→18:10)
[2017-04-27] MEDS: INSULIN SLIDING SCALE (NOVOLOG) 1 VIAL SQ SCH ×3 (06:17→18:14)
[2017-04-27] MEDS ORDERED: MAG HYDROX/AL HYDROX/SIMETH 355 ML ORAL.SUSP PO PRN (07:41)
[2017-04-27 08:09] LABS: ANION GAP 12 (8-16); BLOOD UREA NITROGEN 3 mg/dL (7-18); CHLORIDE 117 mmol/L (98-107); CO2 20 mmol/L (21-32); CREATININE 0.7 mg/dL (0.7-1.3); GLUCOSE,RANDOM 91 mg/dL (74-106); MAGNESIUM 1.7 mg/dL (1.8-2.4); PHOSPHOROUS 3.4 mg/dL (2.5-4.9); POTASSIUM 3.9 mmol/L (3.5-5.1); SODIUM 149 mmol/L (136-145)
--- NOTE | 2017-04-27 08:22 | PN ---
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 (short form) - Note 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: patient seen and examined today Status post PEG yesterday NG tube taken out Nursing staff told me--- that patient refusing to start on feeding Patient denies any pain Comfortable Vital Signs Temp 98.1 F 04/27/17 06:05 Pulse 95 H 04/27/17 06:05 Resp 20 04/27/17 06:05 BP 110/68 04/27/17 06:05 Pulse Ox 98 04/26/17 21:00 Intake & Output 04/26/17 04/26/17 04/27/17 11:59 23:59 11:59 Intake Total 1400 1500 600 Balance 1400 1500 600 Intake: IV 1400 900 D5-1/2NS+20 MEQ KCL - 20 1100 900 meq In 1,000 ml @ 100 mls /hr IV ASDIR [facility] Rx#: [id number] IVPB 500 Tube Feeding 60 360 Tube Irrigant 40 240 Other: Voiding Method Incontinent Incontinent Incontinent # Unmeasured Voids Void 1 Bowel Movement Yes Yes: 2 Yes # Bowel Movements 1 2 1 Active Medications Acetaminophen (Tylenol -) 650 mg PO Q6H PRN PRN Reason: FEVER OR PAIN Last Admin: 04/26/17 17:51 Dose: 650 mg Al Hydroxide/Mg Hydroxide (Mylanta Suspension -) 30 ml PO Q6HPO PRN PRN Reason: INDIGESTION Apixaban (Eliquis -) 5 mg PO BID [facility] Last Admin: 04/25/17 15:10 Dose: Not Given Atorvastatin Calcium (Lipitor -) 40 mg PO [facility] Last Admin: 04/26/17 21:53 Dose: 40 mg Bacitracin (Bacitracin -) 1 applic TP BID [facility] Last Admin: 04/26/17 22:00 Dose: Not Given Gabapentin (Neurontin -) 400 mg PO BID [facility] Last Admin: 04/26/17 21:53 Dose: 400 mg Potassium Chloride/Dextrose/Sod Cl (D5-1/2ns+20 Meq Kcl -) 20 meq in 1,000 mls @ 100 mls/hr IV ASDIR [facility] Last Admin: 04/26/17 07:49 Dose: 100 mls/hr Cefazolin Sodium (Ancef -) 1 gm in 10 mls @ 120 mls/hr IVPUSH Q8H-IV [facility] Last Admin: 04/27/17 01:39 Dose: 120 mls/hr Insulin Aspart (Novolog Vial Sliding Scale -) 1 vial SQ TIDAC JAMIE PRN Reason: Protocol Last Admin: 04/27/17 06:17 Dose: Not Given Loperamide HCl (Imodium Liquid -) 2 mg NGT BID PRN PRN Reason: DIARRHEA Lorazepam (Ativan Injection -) 2 mg IVPUSH Q6H PRN Magnesium Sulfate (Magnesium Sulfate) 2 gm IVPB ONCE ONE Stop: 04/27/17 08:15 Metoclopramide HCl (Reglan Injection -) 10 mg IVPUSH QID [facility] Last Admin: 04/26/17 21:54 Dose: 10 mg Metoprolol Tartrate (Lopressor -) 12.5 mg PO BID [facility] Last Admin: 04/26/17 21:53 Dose: 12.5 mg Mirtazapine (Remeron -) 15 mg PO HS [facility] Last Admin: 04/26/17 21:53 Dose: 15 mg Multi-Ingredient Ointment (Zinc Oxide) 1 applic TP DAILY [facility] Last Admin: 04/26/17 15:25 Dose: 1 applic Nystatin (Nystop Powder -) 1 applic TP DAILY [facility] Last Admin: 04/26/17 15:25 Dose: 1 applic Pantoprazole Sodium (Protonix Packets For Oral Suspension -) 40 mg NGT BID [facility] Last Admin: 04/26/17 21:54 Dose: 40 mg CBC, BMP 04/26/17 13:40 04/27/17 06:00 Physical Exam. awake/ comfortable. no distress. lungs- Diminished at bases cvs- s1, s2 rrr abd - soft/ non tender Status post PEG ext- no edema neuro- ao x3 ASSESSMENT/PLAN: GI Bleed pneumonia Acute renal failure- better--back to baseline hypernatremia--- poor appetite depression status post PEG Inflammatory neuropathy Plan feeding tube Place yesterday discussed with patient in detail after prolonged discussion--- Willing to start feeding Discussed with nursing staff also Continue other medications Will follow Problem List - Problems (1) Anemia Code(s): D64.9 - ANEMIA, UNSPECIFIED Qualifiers: Bone marrow failure anemia type: pancytopenia, antineoplastic chemotherapy- induced (2) SOB (shortness of breath) Code(s): R06.02 - SHORTNESS OF BREATH (3) Atrial fibrillation Code(s): I48.91 - UNSPECIFIED ATRIAL FIBRILLATION Qualifiers: Atrial fibrillation type: paroxysmal Qualified Code(s): I48.0 - Paroxysmal atrial fibrillation (4) Multiple myeloma in remission Code(s): C90.01 - MULTIPLE MYELOMA IN REMISSION
[2017-04-27] MEDS ORDERED: MAG HYDROX/AL HYDROX/SIMETH 30 ML UNIT-DOSE CUP PO PRN (09:46)
[2017-04-27] MEDS: METOPROLOL TARTRATE 25 MG TABLET (FP) PO SCH ×2 (09:59→23:36)
[2017-04-27] MEDS: PANTOPRAZOLE SOD 40 MG SUSPENSION PACKET NGT SCH ×2 (09:59→23:39)
[2017-04-27] MEDS: GABAPENTIN 400 MG CAPSULE (FP) PO SCH (09:59)
[2017-04-27] MEDS: METOCLOPRAMIDE HCL INJECTION 10 MG/2 ML VIAL IVPUSH SCH ×3 (09:59→18:13)
[2017-04-27] MEDS: MAGNESIUM 1GM/D5W 100ML - 100 ML IVPB IVPB SCH ×2 (10:16→15:16)
[2017-04-27] MEDS: ZINC OXIDE 20% TOPICAL OINTMENT 30 GM TUBE TP SCH (10:18)
[2017-04-27] MEDS: D5-1/2NS+20 MEQ KCL - 20 MEQ/1,000 ML INFUS.BAG IV SCH ×2 (10:18→18:10)
[2017-04-27] MEDS: NYSTATIN POWDER 100,000 UNITS/GM - 15 GM TOPICAL POWDER TP SCH (10:18)
[2017-04-27] MEDS: BACITRACIN 15 GM TUBE TOPICAL OINTMENT TP SCH ×2 (10:19→23:36)
--- NOTE | 2017-04-27 11:54 | PN ---
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, Physician Chief Complaint: S/P PEG More awake today and feels better History of Present Illness: Patient was seen and examined. Chart was reviewed Generalized weakness - Current Medication List Current Medications: Active Medications Acetaminophen (Tylenol -) 650 mg PO Q6H PRN PRN Reason: FEVER OR PAIN Last Admin: 04/26/17 17:51 Dose: 650 mg Al Hydroxide/Mg Hydroxide (Mylanta Oral Suspension -) 30 ml PO Q6HPO PRN PRN Reason: INDIGESTION Last Admin: 04/27/17 09:59 Dose: 30 ml Apixaban (Eliquis -) 5 mg PO BID [facility] Last Admin: 04/25/17 15:10 Dose: Not Given Atorvastatin Calcium (Lipitor -) 40 mg PO [facility] Last Admin: 04/26/17 21:53 Dose: 40 mg Bacitracin (Bacitracin -) 1 applic TP BID [facility] Last Admin: 04/27/17 10:19 Dose: 1 applic Gabapentin (Neurontin Oral Liquid -) 400 mg PO BID [facility] Potassium Chloride/Dextrose/Sod Cl (D5-1/2ns+20 Meq Kcl -) 20 meq in 1,000 mls @ 100 mls/hr IV ASDIR [facility] Last Admin: 04/27/17 10:18 Dose: Not Given Cefazolin Sodium (Ancef -) 1 gm in 10 mls @ 120 mls/hr IVPUSH Q8H-IV [facility] Last Admin: 04/27/17 10:17 Dose: 120 mls/hr Insulin Aspart (Novolog Vial Sliding Scale -) 1 vial SQ TIDAC [facility] PRN Reason: Protocol Last Admin: 04/27/17 06:17 Dose: Not Given Loperamide HCl (Imodium Liquid -) 2 mg NGT BID PRN PRN Reason: DIARRHEA Lorazepam (Ativan Injection -) 2 mg IVPUSH Q6H PRN Metoclopramide HCl (Reglan Injection -) 10 mg IVPUSH QID [facility] Last Admin: 04/27/17 09:59 Dose: 10 mg Metoprolol Tartrate (Lopressor -) 12.5 mg PO BID [facility] Last Admin: 04/27/17 09:59 Dose: 12.5 mg Mirtazapine (Remeron -) 15 mg PO [facility] Last Admin: 04/26/17 21:53 Dose: 15 mg Multi-Ingredient Ointment (Zinc Oxide) 1 applic TP DAILY [facility] Last Admin: 04/27/17 10:18 Dose: 1 applic Nystatin (Nystop Powder -) 1 applic TP DAILY [facility] Last Admin: 04/27/17 10:18 Dose: 1 applic Pantoprazole Sodium (Protonix Packets For Oral Suspension -) 40 mg NGT BID [facility] Last Admin: 04/27/17 09:59 Dose: 40 mg - Objective Vital Signs: Vital Signs Temperature 98 F 04/27/17 10:19 Pulse Rate 99 H 04/27/17 10:19 Respiratory Rate 18 04/27/17 10:19 Blood Pressure 102/63 04/27/17 10:19 O2 Sat by Pulse Oximetry (%) 98 04/26/17 21:00 Eyes: Yes: PERRL HENT: Yes: Atraumatic Neck: Yes: Supple Cardiovascular: Yes: Regular Rate and Rhythm, S1, S2 Respiratory: Yes: Diminished Gastrointestinal: Yes: Normal Bowel Sounds, Soft, Other (PEG). No: Tenderness Edema: No Labs: CBC, BMP 04/26/17 13:40 04/27/17 06:00 INR, PTT INR 1.17 (0.82-1.09) H 04/26/17 07:00 Problem List - Problems (1) CAD (coronary artery disease) Code(s): I25.10 - ATHSCL HEART DISEASE OF [place] CORONARY ARTERY W/O ANG PCTRS Qualifiers: Coronary Disease-Associated Artery/Lesion type: [place] artery [place] vs. transplanted heart: [place] heart Associated angina: without angina Qualified Code(s): I25.10 - Atherosclerotic heart disease of [place] coronary artery without angina pectoris (2) HTN (hypertension) Code(s): I10 - ESSENTIAL (PRIMARY) HYPERTENSION Qualifiers: Hypertension type: essential hypertension Qualified Code(s): I10 - Essential (primary) hypertension (3) Hypercholesterolemia Code(s): E78.00 - PURE HYPERCHOLESTEROLEMIA, UNSPECIFIED (4) Diabetes mellitus Code(s): E11.9 - TYPE 2 DIABETES MELLITUS WITHOUT COMPLICATIONS Qualifiers: Diabetes mellitus type: type 2 (5) Anemia Code(s): D64.9 - ANEMIA, UNSPECIFIED Qualifiers: Bone marrow failure anemia type: pancytopenia, antineoplastic chemotherapy- induced (6) Dysphagia Code(s): R13.10 - DYSPHAGIA, UNSPECIFIED Qualifiers: Dysphagia type: other dysphagia Qualified Code(s): R13.19 - Other dysphagia (7) SOB (shortness of breath) Code(s): R06.02 - SHORTNESS OF BREATH (8) Atrial fibrillation Code(s): I48.91 - UNSPECIFIED ATRIAL FIBRILLATION Qualifiers: Atrial fibrillation type: paroxysmal Qualified Code(s): I48.0 - Paroxysmal atrial fibrillation (9) Diastolic dysfunction Code(s): I51.9 - HEART DISEASE, UNSPECIFIED (10) Multiple myeloma in remission Code(s): C90.01 - MULTIPLE MYELOMA IN REMISSION (11) Thrombocytopenia Code(s): D69.6 - THROMBOCYTOPENIA, UNSPECIFIED Assessment/Plan 1. Progressive dyspnea on exertion and fatigue 2. Symptomatic anemia post transfusion 3. Paroxysmal atrial fibrillation with periods of rapid ventricular response currently in sinus rhythm [id number] score of 3 - on A/C with NOAC (Eliquis) 4. Coronary artery disease, angina pectoris 5. LV diastolic dysfunction with chronic class 0-I NYHA classification LV failure, compensated/euvolemic 6. Hypertension 7. DM 8. Hypercholesterolemia 9. Thrombocytopenia, resolved 10. History of multiple myeloma post stem cell transplant 11. History of peripheral neuropathy 12. Dysphagia 13. Aspiration pneumonia PLAN 1. Continue Eliquis, Metoprolol and Lipitor as tolerated via PEG 2. Antibiotics as per the ID 3. GI input to follow. Further plans are to follow Dmitri Ngo MD
--- NOTE | 2017-04-27 12:48 | PN ---
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 Tolerating feedings. Pt still coughing, spitting up secretions every 1/2 hour, per nursing, every 5 min per pt. Pt denies any pain c/w esoph spasm. Case discussed at length with Dr. Fuller. Etiology of vomiting unclear. Gastritis/Duodenitis on EGD. On protonix. No stricture identified. As discussed with GI, pt may benefit from Manometry, r/o early achalasia? r/o Scleroderma? Benefit from LES dilatation? Selected Entries 04/27/17 04/27/17 04/27/17 02:00 06:05 10:08 Breakfast NPO Temperature 98.5 F 98.1 F 04/27/17 10:19 Breakfast Temperature 98 F Laboratory Tests 04/25/17 06:30 WBC 4.1 Pt will benefit from PEG feedings in meantime. Maintain HOB elevation.
--- NOTE | 2017-04-27 14:38 | PN ---
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 (short form) - Note 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: Renal follow up for Hypernatremia/Hypokalemia Pt seen and examined at the bedside awake and alert no acute complaints tolerated G-tube feeds Vital Signs Temperature 98 F 04/27/17 10:19 Pulse Rate 99 H 04/27/17 10:19 Respiratory Rate 18 04/27/17 10:19 Blood Pressure 102/63 04/27/17 10:19 O2 Sat by Pulse Oximetry (%) 98 04/26/17 21:00 Intake & Output 04/24/17 04/25/17 04/26/17 04/27/17 23:59 23:59 23:59 23:59 Intake Total 1400 1900 2900 600 Balance 1400 1900 2900 600 NAD RRR soft Obese, NT/ND No Le edema CBC, BMP 04/26/17 13:40 04/27/17 06:00 Current Medications Acetaminophen (Tylenol -) 650 mg PO Q6H PRN PRN Reason: FEVER OR PAIN Last Admin: 04/26/17 17:51 Dose: 650 mg Al Hydroxide/Mg Hydroxide (Mylanta Oral Suspension -) 30 ml PO Q6HPO PRN PRN Reason: INDIGESTION Last Admin: 04/27/17 09:59 Dose: 30 ml Apixaban (Eliquis -) 5 mg PO BID [facility] Last Admin: 04/25/17 15:10 Dose: Not Given Atorvastatin Calcium (Lipitor -) 40 mg PO HS [facility] Last Admin: 04/26/17 21:53 Dose: 40 mg Bacitracin (Bacitracin -) 1 applic TP BID JAMIE Last Admin: 04/27/17 10:19 Dose: 1 applic Gabapentin (Neurontin Oral Liquid -) 400 mg PO BID [facility] Potassium Chloride/Dextrose/Sod Cl (D5-1/2ns+20 Meq Kcl -) 20 meq in 1,000 mls @ 100 mls/hr IV ASDIR JAMIE Last Admin: 04/27/17 10:18 Dose: Not Given Cefazolin Sodium (Ancef -) 1 gm in 10 mls @ 120 mls/hr IVPUSH Q8H-IV JAMIE Last Admin: 04/27/17 10:17 Dose: 120 mls/hr Insulin Aspart (Novolog Vial Sliding Scale -) 1 vial SQ TIDAC JAMIE PRN Reason: Protocol Last Admin: 01/09/18 14:17 Dose: Not Given Loperamide HCl (Imodium Liquid -) 2 mg NGT BID PRN PRN Reason: DIARRHEA Lorazepam (Ativan Injection -) 2 mg IVPUSH Q6H PRN Metoclopramide HCl (Reglan Injection -) 10 mg IVPUSH QID [facility] Last Admin: 04/27/17 09:59 Dose: 10 mg Metoprolol Tartrate (Lopressor -) 12.5 mg PO BID [facility] Last Admin: 04/27/17 09:59 Dose: 12.5 mg Mirtazapine (Remeron -) 15 mg PO HS [facility] Last Admin: 04/26/17 21:53 Dose: 15 mg Multi-Ingredient Ointment (Zinc Oxide) 1 applic TP DAILY [facility] Last Admin: 04/27/17 10:18 Dose: 1 applic Nystatin (Nystop Powder -) 1 applic TP DAILY [facility] Last Admin: 04/27/17 10:18 Dose: 1 applic Pantoprazole Sodium (Protonix Packets For Oral Suspension -) 40 mg NGT BID [facility] Last Admin: 04/27/17 09:59 Dose: 40 mg 71 year old gentleman with PMhx of Atrial fibrillation ,DM2, Multiple myeloma ( in remission), HTN, osteoarthritis of knees who presented to the ER on with worsening SOB and found to have hypernatremia, hypokalemia and hypophosphatemia. #Hypernatremia water deficit persists continue tube fees, incrased free water #Hypokalemia/Hypomagnsemia continue tube feeds trend daily will correct hypomagnsemia with IV Mag Sulfate #Hypophosphatemia improved s/p additional IV K-phos last night start Neutra Phos TID for now Thank you Jem Quezada DO
--- NOTE | 2017-04-27 16:04 | PN ---
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 (short form) - Note 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: Patient seen and examined chart reviewed. s/p PEG O/E: Constitutional: in NAD HENT: No: Nasal Congestion, Neck: No: Lymphadenopathy, Tenderness, Thyromegaly Cardiovascular: Yes: Regular Rate and Rhythm, Murmur Respiratory: Yes: some LLL rales Gastrointestinal: Yes: Normal Bowel Sounds, Soft. No: Hepatomegaly, Splenomegaly, Tenderness Musculoskeletal: Yes: Back Pain Extremities: No: Cold, Cyanosis Edema: No Peripheral Pulses WNL: No Last Vital Signs Temp Pulse Resp BP Pulse Ox 99 F 104 H 20 103/67 98 04/27/17 14:58 04/27/17 14:58 04/27/17 14:58 04/27/17 14:58 04/26/17 21:00 CBC, BMP 04/26/17 13:40 04/27/17 06:00 Current Medications Generic Name Dose Route Start Last Admin Trade Name Freq PRN Reason Stop Dose Admin Acetaminophen 650 mg 04/21/17 07:47 04/26/17 17:51 Tylenol - PO 650 mg Q6H PRN Administration FEVER OR PAIN Al Hydroxide/Mg Hydroxide 30 ml 04/27/17 09:46 04/27/17 09:59 Mylanta Oral Suspension - PO 30 ml Q6HPO PRN Administration INDIGESTION Apixaban 5 mg 04/21/17 10:00 04/25/17 15:10 Eliquis - PO Not Given BID JAMIE Atorvastatin Calcium 40 mg 04/21/17 22:00 04/26/17 21:53 Lipitor - PO 40 mg HS JAMIE Administration Bacitracin 1 applic 04/26/17 22:00 04/27/17 10:19 Bacitracin - TP 1 applic BID JAMIE Administration Gabapentin 400 mg 04/27/17 11:27 Neurontin Oral Liquid - PO BID JAMIE Potassium Chloride/Dextrose/Sod Cl 20 meq in 1,000 mls @ 100 mls/hr 04/20/17 10:00 04/27/17 10:18 D5-1/2ns+20 Meq Kcl - IV Not Given ASDIR JAMIE Cefazolin Sodium 1 gm in 10 mls @ 120 mls/hr 04/26/17 18:00 04/27/17 10:17 Ancef - IVPUSH 120 mls/hr Q8H-IV JAMIE Administration Insulin Aspart 1 vial 04/21/17 11:00 04/27/17 14:17 Novolog Vial Sliding Scale - SQ Not Given TIDAC [facility] Protocol Loperamide HCl 2 mg 04/25/17 14:45 Imodium Liquid - NGT BID PRN DIARRHEA Lorazepam 2 mg 04/26/17 15:59 Ativan Injection - IVPUSH Q6H PRN Metoclopramide HCl 10 mg 04/22/17 22:00 04/27/17 15:16 Reglan Injection - IVPUSH Not Given QID JAMIE Metoprolol Tartrate 12.5 mg 04/19/17 13:31 04/27/17 09:59 Lopressor - PO 12.5 mg BID JAMIE Administration Mirtazapine 15 mg 04/23/17 22:00 04/26/17 21:53 Remeron - PO 15 mg HS JAMIE Administration Multi-Ingredient Ointment 1 applic 04/24/17 22:00 04/27/17 10:18 Zinc Oxide TP 1 applic DAILY JAMIE Administration Nystatin 1 applic 04/25/17 22:00 04/27/17 10:18 Nystop Powder - TP 1 applic DAILY JAMIE Administration Pantoprazole Sodium 40 mg 04/25/17 22:00 04/27/17 09:59 Protonix Packets For Oral Suspension - NGT 40 mg BID JAMIE Administration 71 y/o patient with myeloma, on maintenance dick/dex, now with low grade fevers, aspiration myeloma protein stdies show remission neuro consult appreciated -- 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
[2017-04-27] MEDS ORDERED: PT OWN MED DRAWER 7, Y5N ONE ×2 (18:09→22:26)
--- NOTE | 2017-04-27 20:11 | PN ---
GI 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 Subjective: GI NOte: PEG site discomfort is minimal for Michael. I informed him of the possibility that his vomiting may reflect a distal esophageal stricture and that his may be amenable tor endoscopic dilation. I explained that significant risk for esophageal perforation associated with dilation. He wants to think about it further. He does feel a bit better since the feedings have begun. Will increase the rate and stop IV fluids. - Objective Vital Signs: Vital Signs Temperature 99.2 F 04/27/17 17:46 Pulse Rate 112 H 04/27/17 17:46 Respiratory Rate 18 04/27/17 17:46 Blood Pressure 115/71 04/27/17 17:46 O2 Sat by Pulse Oximetry (%) 98 04/26/17 21:00 Laboratory Tests 04/26/17 04/27/17 13:40 06:00 WBC 6.1 D Hgb 10.5 L Hct 33.0 L Plt Count 107 L BUN 3 L Creatinine 0.7 Constitutional: Calm Gastrointestinal Inspection: Yes: Other (PEG site is clean. It was cleansed with Betadine and dressing was changed.) ...Auscultate: Yes: Normoactive Bowel Sounds ...Palpate: Yes: Soft, Other (nontender) Labs: CBC, BMP 04/26/17 13:40 04/27/17 06:00 INR, PTT INR 1.17 (0.82-1.09) H 04/26/17 07:00 Problem List - Problems (1) Dysphagia Assessment/Plan: I await Michael's decision as to whether or not to schedule for EGD and dilation. I did discuss the case with Katy Chanel yesterday. Glassblower's recommendations are appreciated. Code(s): R13.10 - DYSPHAGIA, UNSPECIFIED Qualifiers: Dysphagia type: other dysphagia Qualified Code(s): R13.19 - Other dysphagia (2) Anemia Code(s): D64.9 - ANEMIA, UNSPECIFIED Qualifiers: Bone marrow failure anemia type: pancytopenia, antineoplastic chemotherapy- induced
[2017-04-27] MEDS: ATORVASTATIN CA 40 MG TABLET (FP) PO SCH (23:36)
[2017-04-27] MEDS: GABAPENTIN 250 MG/5 ML ORAL SOLUTION, 470 ML BOTTLE PO SCH (23:38)
[2017-04-27] MEDS: MIRTAZAPINE 15 MG TABLET (FP) PO SCH (23:40)
[2017-04-28] MEDS ORDERED: PT OWN MED DRAWER 7, Y5N ONE ×2 (02:03→20:42)
[2017-04-28] MEDS: CEFAZOLIN 1 GM PUSH 1 GM/10 ML DISP.SYRIN IVPUSH SCH ×3 (02:51→18:15)
[2017-04-28] MEDS ORDERED: INSULIN (NOVOLOG) ASPART 100 UNITS/ML 10ML VIAL ONE (06:09)
[2017-04-28] MEDS: INSULIN SLIDING SCALE (NOVOLOG) 1 VIAL SQ SCH ×3 (06:24→17:39)
[2017-04-28 08:06] LABS: BASO % 1.1 % (0-2.0); EOS % 1.2 % (0-4.5); HEMATOCRIT 29.6 % (35.4-49); HEMOGLOBIN 9.4 GM/dL (11.7-16.9); LYMPH % 18.4 % (8-40); MCH 32.1 pg (25.7-33.7); MCHC 31.9 g/dl (32.0-35.9); MEAN CELL VOLUME 100.7 fl (80-96); MEAN PLT VOLUME 9.2 fl (7.5-11.1); MONO % 13.4 % (3.8-10.2); NEUT % 65.9 % (42.8-82.8); PLATELET COUNT 87 K/MM3 (134-434); RBC 2.94 M/mm3 (4.00-5.60); RDW 19.4 % (11.9-15.9); WHITE BLOOD COUNT 4.8 K/mm3 (4.0-10.0)
[2017-04-28 09:13] LABS: CHLORIDE 116 mmol/L (98-107); POTASSIUM 3.6 mmol/L (3.5-5.1); SODIUM 146 mmol/L (136-145)
--- NOTE | 2017-04-28 09:15 | PN ---
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 (short form) - Note 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: patient seen and examined tolerating feeding Feels better No complaints Vital Signs Temp 98.3 F 04/28/17 08:44 Pulse 106 H 04/28/17 08:44 Resp 20 04/28/17 08:44 BP 111/67 04/28/17 08:44 Pulse Ox 94 L 04/27/17 22:26 Intake & Output 04/27/17 04/27/17 04/28/17 11:59 23:59 11:59 Intake Total 600 200 170 Balance 600 200 170 Intake: IV 20 SL 20 Tube Feeding 360 200 150 Tube Irrigant 240 Other: Voiding Method Incontinent Incontinent # Unmeasured Voids Void 2 Bowel Movement Yes Yes # Bowel Movements 1 1 Active Medications Acetaminophen (Tylenol -) 650 mg PO Q6H PRN PRN Reason: FEVER OR PAIN Last Admin: 04/26/17 17:51 Dose: 650 mg Apixaban (Eliquis -) 5 mg PO BID [facility] Last Admin: 04/25/17 15:10 Dose: Not Given Atorvastatin Calcium (Lipitor -) 40 mg PO [facility] Last Admin: 04/27/17 23:36 Dose: 40 mg Bacitracin (Bacitracin -) 1 applic TP BID [facility] Last Admin: 04/27/17 23:36 Dose: 1 applic Gabapentin (Neurontin Oral Liquid -) 400 mg PO BID [facility] Last Admin: 04/27/17 23:38 Dose: 400 mg Cefazolin Sodium (Ancef -) 1 gm in 10 mls @ 120 mls/hr IVPUSH Q8H-IV [facility] Last Admin: 04/28/17 02:51 Dose: 120 mls/hr Insulin Aspart (Novolog Vial Sliding Scale -) 1 vial SQ TIDAC [facility] PRN Reason: Protocol Last Admin: 04/28/17 06:24 Dose: Not Given Loperamide HCl (Imodium Liquid -) 2 mg NGT BID PRN PRN Reason: DIARRHEA Lorazepam (Ativan Injection -) 2 mg IVPUSH Q6H PRN Metoprolol Tartrate (Lopressor -) 12.5 mg PO BID [facility] Last Admin: 04/27/17 23:36 Dose: 12.5 mg Mirtazapine (Remeron -) 15 mg PO [facility] Last Admin: 04/27/17 23:40 Dose: 15 mg Multi-Ingredient Ointment (Zinc Oxide) 1 applic TP DAILY [facility] Last Admin: 04/27/17 10:18 Dose: 1 applic Nystatin (Nystop Powder -) 1 applic TP DAILY [facility] Last Admin: 04/27/17 10:18 Dose: 1 applic Pantoprazole Sodium (Protonix Packets For Oral Suspension -) 40 mg NGT BID [facility] Last Admin: 04/27/17 23:39 Dose: 40 mg CBC, BMP 04/28/17 06:00 CMP-Pending. physical exam awake and comfortable Lungs--diminished at bases cvs- s1, s2 rrr abd - soft/ non tender Status post PEG ext- no edema neuro- ao x3 ASSESSMENT/PLAN: GI Bleed pneumonia Acute renal failure- better--back to baseline hypernatremia--- poor appetite depression status post PEG Inflammatory neuropathy Plan s/p --feeding tube overall looks better Continue present care GA follow-up noted--esophageal dilatation recommended--- patient thinking about it Follow-up labs and electrolytes Will follow daily out of bed to chair Physical therapy Problem List - Problems (1) Anemia Code(s): D64.9 - ANEMIA, UNSPECIFIED Qualifiers: Bone marrow failure anemia type: pancytopenia, antineoplastic chemotherapy- induced (2) SOB (shortness of breath) Code(s): R06.02 - SHORTNESS OF BREATH (3) Atrial fibrillation Code(s): I48.91 - UNSPECIFIED ATRIAL FIBRILLATION Qualifiers: Atrial fibrillation type: paroxysmal Qualified Code(s): I48.0 - Paroxysmal atrial fibrillation (4) Multiple myeloma in remission Code(s): C90.01 - MULTIPLE MYELOMA IN REMISSION
[2017-04-28 09:32] LABS: ALBUMIN 1.7 g/dl (3.4-5.0); ALK PHOS 90 U/L (45-117); ANION GAP 8 (8-16); BILIRUBIN,TOTAL 0.5 mg/dL (0.2-1.0); BLOOD UREA NITROGEN 7 mg/dL (7-18); CO2 22 mmol/L (21-32); CREATININE 0.6 mg/dL (0.7-1.3); GLUCOSE,RANDOM 111 mg/dL (74-106); SGOT/AST 30 U/L (15-37); SGPT/ALT 21 U/L (12-78); TOT PROT 4.4 g/dl (6.4-8.2)
[2017-04-28] MEDS: GABAPENTIN 250 MG/5 ML ORAL SOLUTION, 470 ML BOTTLE PO SCH ×2 (10:07→22:00)
[2017-04-28] MEDS: PANTOPRAZOLE SOD 40 MG SUSPENSION PACKET NGT SCH ×2 (10:08→21:56)
[2017-04-28] MEDS: METOPROLOL TARTRATE 25 MG TABLET (FP) PO SCH ×2 (10:08→22:00)
[2017-04-28] MEDS: ZINC OXIDE 20% TOPICAL OINTMENT 30 GM TUBE TP SCH (10:09)
[2017-04-28] MEDS: BACITRACIN 15 GM TUBE TOPICAL OINTMENT TP SCH ×2 (10:10→22:01)
[2017-04-28] MEDS: NYSTATIN POWDER 100,000 UNITS/GM - 15 GM TOPICAL POWDER TP SCH (10:10)
[2017-04-28 10:13] LABS: CALCIUM 6.9 mg/dL (8.5-10.1)
--- NOTE | 2017-04-28 11:40 | PN ---
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 (short form) - Note 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: GI NOte: Michael's nurse reports that he refuses to have the EGD and possible dilation that I proposed. Continue PEG feedings. Problem List - Problems (1) Dysphagia Code(s): R13.10 - DYSPHAGIA, UNSPECIFIED Qualifiers: Dysphagia type: other dysphagia Qualified Code(s): R13.19 - Other dysphagia (2) Anemia Code(s): D64.9 - ANEMIA, UNSPECIFIED Qualifiers: Bone marrow failure anemia type: pancytopenia, antineoplastic chemotherapy- induced
[2017-04-28 12:19] LABS: MAGNESIUM 2.3 mg/dL (1.8-2.4); PHOSPHOROUS 1.3 mg/dL (2.5-4.9)
--- NOTE | 2017-04-28 13:14 | PN ---
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 Pt is no longer expectorating secretions. Pt refusing dilatation. Continue PEG feedings for now. Consider trial of Swallowing tx at [place], with single sips occas for desensitization with possible increase in po tolerance with time, with goal to wean from PEG.
--- NOTE | 2017-04-28 14:13 | PN ---
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 (short form) - Note 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: PULMONARY VSS/AFEBRILE REFUSED EGD CHART REVIEWED NONPRODUCTIVE COUGH PALE/ANICTERIC DIMINISHED B/L BREATH SOUNDS S1S2 OBESE/PEG NO EDEMA LABS/MEDS/NOTES/IMAGES/MICRO REVIEWED IMP PNEUMONIA/UTI/ASPIRATION MM S/P STEM CELL TRANSPLANT ANEMIA PEG LV DIASTOLIC DYSFUNCTION ASHD PAF ON ELIQUIS HTN NIIDM PERIPHERAL NEUROPATHY PLAN IV FLUIDS/GLYCEMIC CONTROL/O2 SUPPLEMENTATION WOULD ENCOURAGE COMPLIANCE WITH MEDS ENTERAL FEEDS Bonnie OJEDA MD
--- NOTE | 2017-04-28 15:40 | PN ---
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 (short form) - Note 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: Renal follow up for Hypernatremia/Hypokalemia Pt seen and examined at the bedside awake and alert no acute complaints Vital Signs Temperature 98.1 F 04/28/17 13:52 Pulse Rate 102 H 04/28/17 13:52 Respiratory Rate 20 04/28/17 13:52 Blood Pressure 115/70 04/28/17 13:52 O2 Sat by Pulse Oximetry (%) 94 L 04/27/17 22:26 Intake & Output 04/25/17 04/26/17 04/27/17 04/28/17 23:59 23:59 23:59 23:59 Intake Total 1900 2900 800 170 Balance 1900 2900 800 170 NAD RRR soft Obese, NT/ND No Le edema CBC, BMP 04/28/17 06:00 04/28/17 06:00 Current Medications Acetaminophen (Tylenol -) 650 mg PO Q6H PRN PRN Reason: FEVER OR PAIN Last Admin: 04/26/17 17:51 Dose: 650 mg Apixaban (Eliquis -) 5 mg PO BID [facility] Last Admin: 04/25/17 15:10 Dose: Not Given Atorvastatin Calcium (Lipitor -) 40 mg PO HS [facility] Last Admin: 04/27/17 23:36 Dose: 40 mg Bacitracin (Bacitracin -) 1 applic TP BID [facility] Last Admin: 04/28/17 10:10 Dose: 1 applic Gabapentin (Neurontin Oral Liquid -) 400 mg PO BID [facility] Last Admin: 04/28/17 10:07 Dose: 400 mg Cefazolin Sodium (Ancef -) 1 gm in 10 mls @ 120 mls/hr IVPUSH Q8H-IV [facility] Last Admin: 04/28/17 10:07 Dose: 120 mls/hr Potassium Phosphate 30 mm/ (Dextrose) 260 mls @ 62.5 mls/hr IVPB ONCE ONE Stop: 04/28/17 19:46 Insulin Aspart (Novolog Vial Sliding Scale -) 1 vial SQ TIDAC JAMIE PRN Reason: Protocol Last Admin: 04/28/17 11:23 Dose: Not Given Loperamide HCl (Imodium Liquid -) 2 mg NGT BID PRN PRN Reason: DIARRHEA Lorazepam (Ativan Injection -) 2 mg IVPUSH Q6H PRN Metoprolol Tartrate (Lopressor -) 12.5 mg PO BID [facility] Last Admin: 04/28/17 10:08 Dose: 12.5 mg Mirtazapine (Remeron -) 15 mg PO HS [facility] Last Admin: 04/27/17 23:40 Dose: 15 mg Multi-Ingredient Ointment (Zinc Oxide) 1 applic TP DAILY [facility] Last Admin: 04/28/17 10:09 Dose: 1 applic Nystatin (Nystop Powder -) 1 applic TP DAILY [facility] Last Admin: 04/28/17 10:10 Dose: 1 applic Pantoprazole Sodium (Protonix Packets For Oral Suspension -) 40 mg NGT BID [facility] Last Admin: 04/28/17 10:08 Dose: 40 mg Potassium Phos/Sodium Phos (Phos-Nak Packet -) 1 packet GT TID [facility] 71 year old gentleman with PMhx of Atrial fibrillation ,DM2, Multiple myeloma ( in remission), HTN, osteoarthritis of knees who presented to the ER on with worsening SOB and found to have hypernatremia, hypokalemia and hypophosphatemia. #Hypernatremia continue free water via GT #Hypophosphatemia additional K-Phos IV today start Neutra Phos TID for now will need to check Vit D levels trend Daily Thank you Jem Quezada DO
--- NOTE | 2017-04-28 15:51 | PN ---
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, Physician History of Present Illness: Tolerating enteral feeds post PEG placement for continued dysphagia for liquids and solids. He declines EGD and potential dilatation of suspected esophageal stricture. - Current Medication List Current Medications: Active Medications Acetaminophen (Tylenol -) 650 mg PO Q6H PRN PRN Reason: FEVER OR PAIN Last Admin: 04/26/17 17:51 Dose: 650 mg Apixaban (Eliquis -) 5 mg PO BID [facility] Last Admin: 04/25/17 15:10 Dose: Not Given Atorvastatin Calcium (Lipitor -) 40 mg PO HS [facility] Last Admin: 04/27/17 23:36 Dose: 40 mg Bacitracin (Bacitracin -) 1 applic TP BID [facility] Last Admin: 04/28/17 10:10 Dose: 1 applic Gabapentin (Neurontin Oral Liquid -) 400 mg PO BID [facility] Last Admin: 04/28/17 10:07 Dose: 400 mg Cefazolin Sodium (Ancef -) 1 gm in 10 mls @ 120 mls/hr IVPUSH Q8H-IV [facility] Last Admin: 04/28/17 10:07 Dose: 120 mls/hr Potassium Phosphate 30 mm/ (Dextrose) 260 mls @ 62.5 mls/hr IVPB ONCE ONE Stop: 04/28/17 19:46 Insulin Aspart (Novolog Vial Sliding Scale -) 1 vial SQ TIDAC [facility] PRN Reason: Protocol Last Admin: 04/28/17 11:23 Dose: Not Given Loperamide HCl (Imodium Liquid -) 2 mg NGT BID PRN PRN Reason: DIARRHEA Lorazepam (Ativan Injection -) 2 mg IVPUSH Q6H PRN Metoprolol Tartrate (Lopressor -) 12.5 mg PO BID [facility] Last Admin: 04/28/17 10:08 Dose: 12.5 mg Mirtazapine (Remeron -) 15 mg PO HS [facility] Last Admin: 04/27/17 23:40 Dose: 15 mg Multi-Ingredient Ointment (Zinc Oxide) 1 applic TP DAILY [facility] Last Admin: 04/28/17 10:09 Dose: 1 applic Nystatin (Nystop Powder -) 1 applic TP DAILY [facility] Last Admin: 04/28/17 10:10 Dose: 1 applic Pantoprazole Sodium (Protonix Packets For Oral Suspension -) 40 mg NGT BID [facility] Last Admin: 04/28/17 10:08 Dose: 40 mg Potassium Phos/Sodium Phos (Phos-Nak Packet -) 1 packet GT TID JAMIE - Objective Vital Signs: Vital Signs Temperature 98.1 F 04/28/17 13:52 Pulse Rate 102 H 04/28/17 13:52 Respiratory Rate 20 04/28/17 13:52 Blood Pressure 115/70 04/28/17 13:52 O2 Sat by Pulse Oximetry (%) 94 L 04/27/17 22:26 Constitutional: Yes: No Distress, Calm Neck: Yes: Supple Cardiovascular: Yes: Regular Rate and Rhythm Respiratory: Yes: Regular, Diminished Gastrointestinal: Yes: Normal Bowel Sounds, Soft, Abdomen, Obese Edema: No Labs: CBC, BMP 04/28/17 06:00 04/28/17 06:00 INR, PTT INR 1.17 (0.82-1.09) H 04/26/17 07:00 Problem List - Problems (1) SOB (shortness of breath) Code(s): R06.02 - SHORTNESS OF BREATH (2) Atrial fibrillation Code(s): I48.91 - UNSPECIFIED ATRIAL FIBRILLATION Qualifiers: Atrial fibrillation type: paroxysmal Qualified Code(s): I48.0 - Paroxysmal atrial fibrillation (3) Diastolic dysfunction Code(s): I51.9 - HEART DISEASE, UNSPECIFIED (4) Multiple myeloma in remission Code(s): C90.01 - MULTIPLE MYELOMA IN REMISSION (5) Anemia Code(s): D64.9 - ANEMIA, UNSPECIFIED Qualifiers: Bone marrow failure anemia type: pancytopenia, antineoplastic chemotherapy- induced (6) Dysphagia Code(s): R13.10 - DYSPHAGIA, UNSPECIFIED Qualifiers: Dysphagia type: other dysphagia Qualified Code(s): R13.19 - Other dysphagia (7) Status post insertion of percutaneous endoscopic gastrostomy (PEG) tube Code(s): Z93.1 - GASTROSTOMY STATUS (8) Dysphagia Code(s): R13.10 - DYSPHAGIA, UNSPECIFIED Qualifiers: Dysphagia type: esophageal phase Qualified Code(s): R13.10 - Dysphagia, unspecified Assessment/Plan 1. Dysphagia s/p PEG placement 2. Symptomatic anemia post transfusion 3. Paroxysmal atrial fibrillation with periods of rapid ventricular response currently in sinus rhythm [id number] score of 3 - off A/C with NOAC (Eliquis) 4. Coronary artery disease, angina pectoris 5. LV diastolic dysfunction with chronic class 0-I NYHA classification LV failure, compensated/euvolemic 6. Hypertension 7. DM 8. Hypercholesterolemia 9. Thrombocytopenia, resolved 10. History of multiple myeloma post stem cell transplant 11. History of peripheral neuropathy 12. Dysphagia with delayed esophageal emptying 13. Recurrent fever - LLL asp pneumonia PLAN: 1. Complete antibiotic course as per ID, replete K 2. Continue Eliquis 5 bid, Lopressor 12.5 bid, Lipitor 40 qhs, enteral feeds with free water flushes 3. Aspiration precautions, Protonix 40 bid, complete abx course
[2017-04-28] MEDS ORDERED: POTASSIUM PHOSPHATE 30 MM in DEXTROSE 5%-WATER - 250 ML IVPB ONE (16:00)
[2017-04-28] MEDS: NAPH,MB-DB/K PH,MBDB POWDER PACKET GT SCH ×2 (17:50→21:56)
[2017-04-28] MEDS: ACETAMINOPHEN 325 MG TABLET (FP) PO PRN (21:58)
[2017-04-28] MEDS: MIRTAZAPINE 15 MG TABLET (FP) PO SCH (21:59)
[2017-04-28] MEDS: ATORVASTATIN CA 40 MG TABLET (FP) PO SCH (21:59)
[2017-04-29] MEDS ORDERED: PT OWN MED DRAWER 7, Y5N ONE ×2 (02:01→21:00)
[2017-04-29] MEDS: CEFAZOLIN 1 GM PUSH 1 GM/10 ML DISP.SYRIN IVPUSH SCH ×3 (02:28→17:20)
[2017-04-29] MEDS: NAPH,MB-DB/K PH,MBDB POWDER PACKET GT SCH ×3 (05:57→22:21)
[2017-04-29] MEDS: INSULIN SLIDING SCALE (NOVOLOG) 1 VIAL SQ SCH ×3 (06:03→17:20)
--- NOTE | 2017-04-29 09:16 | PN ---
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 (short form) - Note 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: awake and comfortable Mood is better and denies any complaints Patient reports he is willing to undergo esophageal dilatation-- Denies chest pain or shortness breath tolerating feeding Denies any abdominal pain Vital Signs Temp 97.3 F L 04/29/17 05:58 Pulse 81 04/29/17 09:01 Resp 18 04/29/17 05:58 BP 103/63 04/29/17 05:58 Pulse Ox 97 04/29/17 09:01 Intake & Output 04/28/17 04/28/17 04/29/17 11:59 23:59 11:59 Intake Total 170 1515 Balance 170 1515 Intake: IV 20 SL 20 IVPB 250 Tube Feeding 150 715 Tube Irrigant 550 Other: Voiding Method Incontinent Incontinent # Unmeasured Voids Void 1 Bowel Movement Yes # Bowel Movements 2 Active Medications Acetaminophen (Tylenol -) 650 mg PO Q6H PRN PRN Reason: FEVER OR PAIN Last Admin: 04/28/17 21:58 Dose: 650 mg Apixaban (Eliquis -) 5 mg PO BID [facility] Last Admin: 04/25/17 15:10 Dose: Not Given Atorvastatin Calcium (Lipitor -) 40 mg PO [facility] Last Admin: 04/28/17 21:59 Dose: 40 mg Bacitracin (Bacitracin -) 1 applic TP BID [facility] Last Admin: 04/28/17 22:01 Dose: 1 applic Gabapentin (Neurontin Oral Liquid -) 400 mg PO BID [facility] Last Admin: 04/28/17 22:00 Dose: 400 mg Cefazolin Sodium (Ancef -) 1 gm in 10 mls @ 120 mls/hr IVPUSH Q8H-IV [facility] Last Admin: 04/29/17 02:28 Dose: 120 mls/hr Insulin Aspart (Novolog Vial Sliding Scale -) 1 vial SQ TIDAC [facility] PRN Reason: Protocol Last Admin: 04/29/17 06:03 Dose: Not Given Loperamide HCl (Imodium Liquid -) 2 mg NGT BID PRN PRN Reason: DIARRHEA Lorazepam (Ativan Injection -) 2 mg IVPUSH Q6H PRN Metoprolol Tartrate (Lopressor -) 12.5 mg PO BID [facility] Last Admin: 04/28/17 22:00 Dose: 12.5 mg Mirtazapine (Remeron -) 15 mg PO [facility] Last Admin: 04/28/17 21:59 Dose: 15 mg Multi-Ingredient Ointment (Zinc Oxide) 1 applic TP DAILY [facility] Last Admin: 04/28/17 10:09 Dose: 1 applic Nystatin (Nystop Powder -) 1 applic TP DAILY [facility] Last Admin: 04/28/17 10:10 Dose: 1 applic Pantoprazole Sodium (Protonix Packets For Oral Suspension -) 40 mg NGT BID [facility] Last Admin: 04/28/17 21:56 Dose: 40 mg Potassium Phos/Sodium Phos (Phos-Nak Packet -) 1 packet GT TID [facility] Last Admin: 04/29/17 05:57 Dose: 1 packet CBC, BMP 04/28/17 06:00 04/28/17 06:00 physical exam awake and comfortable Lungs--diminished at bases cvs- s1, s2 rrr abd - soft/ non tender Status post PEG ext- no edema neuro- ao x3 ASSESSMENT/PLAN: GI Bleed pneumonia Acute renal failure- better--back to baseline hypernatremia--- poor appetite depression status post PEG Inflammatory neuropathy Plan s/p --feeding tube overall looks better And stable Continue present care GI follow-up noted--esophageal dilatation recommended--- patient consents Will follow daily out of bed to chair Physical therapy GI to follow Problem List - Problems (1) Anemia Code(s): D64.9 - ANEMIA, UNSPECIFIED Qualifiers: Bone marrow failure anemia type: pancytopenia, antineoplastic chemotherapy- induced (2) SOB (shortness of breath) Code(s): R06.02 - SHORTNESS OF BREATH (3) Atrial fibrillation Code(s): I48.91 - UNSPECIFIED ATRIAL FIBRILLATION Qualifiers: Atrial fibrillation type: paroxysmal Qualified Code(s): I48.0 - Paroxysmal atrial fibrillation (4) Multiple myeloma in remission Code(s): C90.01 - MULTIPLE MYELOMA IN REMISSION
[2017-04-29] MEDS: BACITRACIN 15 GM TUBE TOPICAL OINTMENT TP SCH ×2 (10:32→22:19)
[2017-04-29] MEDS: PANTOPRAZOLE SOD 40 MG SUSPENSION PACKET NGT SCH ×2 (10:33→22:20)
[2017-04-29] MEDS: METOPROLOL TARTRATE 25 MG TABLET (FP) PO SCH ×2 (10:33→22:19)
[2017-04-29 10:42] LABS: ANION GAP 6 (8-16); BLOOD UREA NITROGEN 13 mg/dL (7-18); CHLORIDE 112 mmol/L (98-107); CO2 24 mmol/L (21-32); CREATININE 0.5 mg/dL (0.7-1.3); GLUCOSE,RANDOM 128 mg/dL (74-106); MAGNESIUM 2.2 mg/dL (1.8-2.4); PHOSPHOROUS 1.5 mg/dL (2.5-4.9); POTASSIUM 4.1 mmol/L (3.5-5.1); SODIUM 142 mmol/L (136-145)
[2017-04-29] MEDS: NYSTATIN POWDER 100,000 UNITS/GM - 15 GM TOPICAL POWDER TP SCH (10:43)
[2017-04-29] MEDS: ZINC OXIDE 20% TOPICAL OINTMENT 30 GM TUBE TP SCH (10:44)
[2017-04-29 10:45] LABS: CALCIUM 6.5 mg/dL (8.5-10.1)
[2017-04-29] MEDS: GABAPENTIN 250 MG/5 ML ORAL SOLUTION, 470 ML BOTTLE PO SCH ×2 (10:53→22:21)
--- NOTE | 2017-04-29 11:36 | PN ---
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, Physician History of Present Illness: Tolerating enteral feeds post PEG placement for continued dysphagia for liquids and solids. He now agrees to EGD and potential dilatation of suspected esophageal stricture. - Current Medication List Current Medications: Active Medications Acetaminophen (Tylenol -) 650 mg PO Q6H PRN PRN Reason: FEVER OR PAIN Last Admin: 04/28/17 21:58 Dose: 650 mg Apixaban (Eliquis -) 5 mg PO BID [facility] Last Admin: 04/25/17 15:10 Dose: Not Given Atorvastatin Calcium (Lipitor -) 40 mg PO HS [facility] Last Admin: 04/28/17 21:59 Dose: 40 mg Bacitracin (Bacitracin -) 1 applic TP BID [facility] Last Admin: 04/29/17 10:32 Dose: 1 applic Gabapentin (Neurontin Oral Liquid -) 400 mg PO BID [facility] Last Admin: 04/29/17 10:53 Dose: 400 mg Cefazolin Sodium (Ancef -) 1 gm in 10 mls @ 120 mls/hr IVPUSH Q8H-IV [facility] Last Admin: 04/29/17 10:53 Dose: 120 mls/hr Magnesium Sulfate/Dextrose (Magnesium 1gm/D5w -) 1 gm in 100 mls @ 100 mls/hr IVPB Q1H [facility] Stop: 04/29/17 13:44 Insulin Aspart (Novolog Vial Sliding Scale -) 1 vial SQ TIDAC [facility] PRN Reason: Protocol Last Admin: 04/29/17 06:03 Dose: Not Given Loperamide HCl (Imodium Liquid -) 2 mg NGT BID PRN PRN Reason: DIARRHEA Lorazepam (Ativan Injection -) 2 mg IVPUSH Q6H PRN Metoprolol Tartrate (Lopressor -) 12.5 mg PO BID [facility] Last Admin: 04/29/17 10:33 Dose: 12.5 mg Mirtazapine (Remeron -) 15 mg PO HS [facility] Last Admin: 04/28/17 21:59 Dose: 15 mg Multi-Ingredient Ointment (Zinc Oxide) 1 applic TP DAILY [facility] Last Admin: 04/29/17 10:44 Dose: 1 applic Nystatin (Nystop Powder -) 1 applic TP DAILY [facility] Last Admin: 04/29/17 10:43 Dose: 1 applic Pantoprazole Sodium (Protonix Packets For Oral Suspension -) 40 mg NGT BID [facility] Last Admin: 04/29/17 10:33 Dose: 40 mg Potassium Phos/Sodium Phos (Phos-Nak Packet -) 1 packet GT TID [facility] Last Admin: 04/29/17 05:57 Dose: 1 packet - Objective Vital Signs: Vital Signs Temperature 97.3 F L 04/29/17 05:58 Pulse Rate 81 04/29/17 09:01 Respiratory Rate 18 04/29/17 05:58 Blood Pressure 103/63 04/29/17 05:58 O2 Sat by Pulse Oximetry (%) 97 04/29/17 09:01 Constitutional: Yes: No Distress, Calm Neck: Yes: Supple Cardiovascular: Yes: Regular Rate and Rhythm Respiratory: Yes: Regular, Diminished Gastrointestinal: Yes: Normal Bowel Sounds, Soft, Abdomen, Obese Edema: No Labs: CBC, BMP 04/28/17 06:00 04/29/17 10:00 INR, PTT INR 1.17 (0.82-1.09) H 04/26/17 07:00 Problem List - Problems (1) SOB (shortness of breath) Code(s): R06.02 - SHORTNESS OF BREATH (2) Atrial fibrillation Code(s): I48.91 - UNSPECIFIED ATRIAL FIBRILLATION Qualifiers: Atrial fibrillation type: paroxysmal Qualified Code(s): I48.0 - Paroxysmal atrial fibrillation (3) Diastolic dysfunction Code(s): I51.9 - HEART DISEASE, UNSPECIFIED (4) Multiple myeloma in remission Code(s): C90.01 - MULTIPLE MYELOMA IN REMISSION (5) Anemia Code(s): D64.9 - ANEMIA, UNSPECIFIED Qualifiers: Bone marrow failure anemia type: pancytopenia, antineoplastic chemotherapy- induced (6) Dysphagia Code(s): R13.10 - DYSPHAGIA, UNSPECIFIED Qualifiers: Dysphagia type: other dysphagia Qualified Code(s): R13.19 - Other dysphagia (7) Status post insertion of percutaneous endoscopic gastrostomy (PEG) tube Code(s): Z93.1 - GASTROSTOMY STATUS (8) Dysphagia Code(s): R13.10 - DYSPHAGIA, UNSPECIFIED Qualifiers: Dysphagia type: esophageal phase Qualified Code(s): R13.10 - Dysphagia, unspecified Assessment/Plan 1. Dysphagia s/p PEG placement 2. Symptomatic anemia post transfusion 3. Paroxysmal atrial fibrillation with periods of rapid ventricular response currently in sinus rhythm [id number] score of 3 - off A/C with NOAC (Eliquis) 4. Coronary artery disease, angina pectoris 5. LV diastolic dysfunction with chronic class 0-I NYHA classification LV failure, compensated/euvolemic 6. Hypertension 7. DM 8. Hypercholesterolemia 9. Thrombocytopenia, resolved 10. History of multiple myeloma post stem cell transplant 11. History of peripheral neuropathy 12. Dysphagia with delayed esophageal emptying 13. Recurrent fever - LLL asp pneumonia PLAN: 1. Complete antibiotic course as per ID 2. Lopressor 12.5 bid, Lipitor 40 qhs, enteral feeds with free water flushes 3. Aspiration precautions, Protonix 40 bid 4. Patient agrees to EGD and possible distal esophageal dilatation, Eliquis held for 2 days prior and to resume once post-procedure hemostasis achieved
[2017-04-29] MEDS: MAGNESIUM 1GM/D5W - 1 GM/100 ML IVPB IVPB SCH ×2 (12:20→13:39)
--- NOTE | 2017-04-29 12:20 | PN ---
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 (short form) - Note Progress Note: GI NOte: Nursing reports that Michael has signed an informed consent for EGD and possible dilation. Will proceed with procedure tomorrow. Problem List - Problems (1) Dysphagia Code(s): R13.10 - DYSPHAGIA, UNSPECIFIED Qualifiers: Dysphagia type: other dysphagia Qualified Code(s): R13.19 - Other dysphagia (2) Anemia Code(s): D64.9 - ANEMIA, UNSPECIFIED Qualifiers: Bone marrow failure anemia type: pancytopenia, antineoplastic chemotherapy- induced
--- NOTE | 2017-04-29 13:50 | PN ---
Progress Note (short form) - Note Progress Note: Patient seen and examined chart reviewed. improving agreed for esophageal dilatation. O/E: Constitutional: in NAD HENT: No: Nasal Congestion, Neck: No: Lymphadenopathy, Tenderness, Thyromegaly Cardiovascular: Yes: Regular Rate and Rhythm, Murmur Respiratory: Yes: some LLL rales Gastrointestinal: Yes: Normal Bowel Sounds, Soft. No: Hepatomegaly, Splenomegaly, Tenderness Musculoskeletal: Yes: Back Pain Extremities: No: Cold, Cyanosis Edema: No Peripheral Pulses WNL: No INR, PTT INR 1.17 (0.82-1.09) H 04/26/17 07:00 Last Vital Signs Temp Pulse Resp BP Pulse Ox 97.3 F L 81 18 103/63 97 04/29/17 05:58 04/29/17 09:01 04/29/17 05:58 04/29/17 05:58 04/29/17 09:01 CBC, BMP 04/28/17 06:00 04/29/17 10:00 Current Medications Generic Name Dose Route Start Last Admin Trade Name Freq PRN Reason Stop Dose Admin Acetaminophen 650 mg 04/21/17 07:47 04/28/17 21:58 Tylenol - PO 650 mg Q6H PRN Administration FEVER OR PAIN Atorvastatin Calcium 40 mg 04/21/17 22:00 04/28/17 21:59 Lipitor - PO 40 mg HS JAMIE Administration Bacitracin 1 applic 04/26/17 22:00 04/29/17 10:32 Bacitracin - TP 1 applic BID JAMIE Administration Gabapentin 400 mg 04/27/17 11:27 04/29/17 10:53 Neurontin Oral Liquid - PO 400 mg BID JAMIE Administration Cefazolin Sodium 1 gm in 10 mls @ 120 mls/hr 04/26/17 18:00 04/29/17 10:53 Ancef - IVPUSH 120 mls/hr Q8H-IV JAMIE Administration Insulin Aspart 1 vial 04/21/17 11:00 04/29/17 11:43 Novolog Vial Sliding Scale - SQ Not Given TIDAC JAMIE Protocol Loperamide HCl 2 mg 04/25/17 14:45 Imodium Liquid - NGT BID PRN DIARRHEA Lorazepam 2 mg 04/26/17 15:59 Ativan Injection - IVPUSH Q6H PRN Metoprolol Tartrate 12.5 mg 04/19/17 13:31 04/29/17 10:33 Lopressor - PO 12.5 mg BID JAMIE Administration Mirtazapine 15 mg 04/23/17 22:00 04/28/17 21:59 Remeron - PO 15 mg HS JAMIE Administration Multi-Ingredient Ointment 1 applic 04/24/17 22:00 04/29/17 10:44 Zinc Oxide TP 1 applic DAILY [facility]IE Administration Nystatin 1 applic 04/25/17 22:00 04/29/17 10:43 Nystop Powder - TP 1 applic DAILY [facility] Administration Pantoprazole Sodium 40 mg 04/25/17 22:00 04/29/17 10:33 Protonix Packets For Oral Suspension - NGT 40 mg BID [facility]IE Administration Potassium Phos/Sodium Phos 1 packet 04/28/17 15:45 04/29/17 13:39 Phos-Nak Packet - GT 1 packet TID JAMIE Administration Assessment/Plan: MM in remission on maintenance dick/dex. (last chemo in 02/2017) Aspiration PNA CIDP? Bulbar palsy Inability to tolerated PO , leading to PEG Afib on Eliquis Extensive w/u for inability PO : CTH,CTNeck, extensive GI w/u, MBSS, ENT consult , Neuro consult s/p PEG placement Pt had intermittent thrombocytopenia, which completely recovered but now again noted, ?etiology Anemia: stable around 10s
--- NOTE | 2017-04-29 16:14 | PN ---
Progress Note (short form) - Note Progress Note: Renal follow up for Hypernatremia/Hypokalemia Pt seen and examined at the bedside no acute complaints on tube feeds Vital Signs Temperature 97.7 F 04/29/17 14:33 Pulse Rate 96 H 04/29/17 14:33 Respiratory Rate 20 04/29/17 14:33 Blood Pressure 115/62 04/29/17 14:33 O2 Sat by Pulse Oximetry (%) 97 04/29/17 09:01 Intake & Output 04/26/17 04/27/17 04/28/17 04/29/17 23:59 23:59 23:59 23:59 Intake Total 2900 817 041 1364 Balance 2900 029 687 6157 NAD RRR soft Obese, NT/ND No Le edema CBC, BMP 04/28/17 06:00 04/29/17 10:00 Current Medications Acetaminophen (Tylenol -) 650 mg PO Q6H PRN PRN Reason: FEVER OR PAIN Last Admin: 04/28/17 21:58 Dose: 650 mg Atorvastatin Calcium (Lipitor -) 40 mg PO HS [facility] Last Admin: 04/28/17 21:59 Dose: 40 mg Bacitracin (Bacitracin -) 1 applic TP BID [facility] Last Admin: 04/29/17 10:32 Dose: 1 applic Gabapentin (Neurontin Oral Liquid -) 400 mg PO BID [facility] Last Admin: 04/29/17 10:53 Dose: 400 mg Cefazolin Sodium (Ancef -) 1 gm in 10 mls @ 120 mls/hr IVPUSH Q8H-IV [facility] Last Admin: 04/29/17 10:53 Dose: 120 mls/hr Insulin Aspart (Novolog Vial Sliding Scale -) 1 vial SQ TIDAC [facility] PRN Reason: Protocol Last Admin: 04/29/17 11:43 Dose: Not Given Loperamide HCl (Imodium Liquid -) 2 mg NGT BID PRN PRN Reason: DIARRHEA Metoprolol Tartrate (Lopressor -) 12.5 mg PO BID [facility] Last Admin: 04/29/17 10:33 Dose: 12.5 mg Mirtazapine (Remeron -) 15 mg PO HS [facility] Last Admin: 04/28/17 21:59 Dose: 15 mg Multi-Ingredient Ointment (Zinc Oxide) 1 applic TP DAILY [facility] Last Admin: 04/29/17 10:44 Dose: 1 applic Nystatin (Nystop Powder -) 1 applic TP DAILY [facility] Last Admin: 04/29/17 10:43 Dose: 1 applic Pantoprazole Sodium (Protonix Packets For Oral Suspension -) 40 mg NGT BID [facility] Last Admin: 04/29/17 10:33 Dose: 40 mg Potassium Phos/Sodium Phos (Phos-Nak Packet -) 1 packet GT TID [facility] Last Admin: 04/29/17 13:39 Dose: 1 packet 71 year old gentleman with PMhx of Atrial fibrillation ,DM2, Multiple myeloma ( in remission), HTN, osteoarthritis of knees who presented to the ER on with worsening SOB and found to have hypernatremia, hypokalemia and hypophosphatemia. #Hypernatremia improved with free water via G-tube continue for now trend Na daily #Hypophosphatemia improved s/p K-phos continue Neutraphos via G-tube trend phos daily #Hypomagnesemia Give Mg sulfate 2g IV pt on PPI that can cause hypomagnesemia Thank you Jem Quezada DO
[2017-04-29] MEDS ORDERED: INSULIN (NOVOLOG) ASPART 100 UNITS/ML 10ML VIAL ONE (18:49)
[2017-04-29] MEDS: MIRTAZAPINE 15 MG TABLET (FP) PO SCH (22:20)
[2017-04-29] MEDS: ATORVASTATIN CA 40 MG TABLET (FP) PO SCH (22:21)
[2017-04-30] MEDS: CEFAZOLIN 1 GM PUSH 1 GM/10 ML DISP.SYRIN IVPUSH SCH ×3 (02:10→18:51)
[2017-04-30] MEDS: NAPH,MB-DB/K PH,MBDB POWDER PACKET GT SCH ×3 (05:27→22:40)
[2017-04-30] MEDS: INSULIN SLIDING SCALE (NOVOLOG) 1 VIAL SQ SCH ×3 (06:29→18:51)
[2017-04-30 08:26] LABS: HEMATOCRIT 30.9 % (35.4-49); HEMOGLOBIN 9.9 GM/dL (11.7-16.9); MCH 32.4 pg (25.7-33.7); MCHC 31.9 g/dl (32.0-35.9); MEAN CELL VOLUME 101.5 fl (80-96); MEAN PLT VOLUME 9.8 fl (7.5-11.1); PLATELET COUNT 89 K/MM3 (134-434); RBC 3.04 M/mm3 (4.00-5.60); RDW 19.1 % (11.9-15.9); WHITE BLOOD COUNT 5.7 K/mm3 (4.0-10.0)
[2017-04-30 08:31] LABS: ALBUMIN 1.7 g/dl (3.4-5.0); ANION GAP 9 (8-16); BLOOD UREA NITROGEN 11 mg/dL (7-18); CHLORIDE 109 mmol/L (98-107); CO2 22 mmol/L (21-32); GLUCOSE,RANDOM 81 mg/dL (74-106); PHOSPHOROUS 1.8 mg/dL (2.5-4.9); POTASSIUM 4.1 mmol/L (3.5-5.1); SGPT/ALT 21 U/L (12-78); SODIUM 140 mmol/L (136-145)
[2017-04-30 08:43] LABS: ALK PHOS 106 U/L (45-117); BILIRUBIN,TOTAL 0.7 mg/dL (0.2-1.0); CREATININE 0.4 mg/dL (0.7-1.3); MAGNESIUM 2.3 mg/dL (1.8-2.4); SGOT/AST 54 U/L (15-37); TOT PROT 4.7 g/dl (6.4-8.2)
--- NOTE | 2017-04-30 09:47 | PN ---
Progress Note (short form) - Note Progress Note: comfortable no complains feels ok scheduled for egd/ dilatation today pt in agreement Vital Signs Temp 98.3 F 04/30/17 06:00 Pulse 79 04/30/17 06:00 Resp 20 04/30/17 06:00 BP 104/62 04/30/17 06:00 Pulse Ox 97 04/29/17 21:00 Intake & Output 04/29/17 04/29/17 04/30/17 11:59 23:59 11:59 Intake Total 1515 1510 525 Balance 1515 1510 525 Intake: IVPB 250 250 Oral 0 Tube Feeding 715 780 325 Tube Irrigant 550 480 200 Other: Voiding Method Incontinent Incontinent Diaper # Unmeasured Voids Void 3 2 Bowel Movement Yes No # Bowel Movements 3 Active Medications Acetaminophen (Tylenol -) 650 mg PO Q6H PRN PRN Reason: FEVER OR PAIN Last Admin: 04/28/17 21:58 Dose: 650 mg Atorvastatin Calcium (Lipitor -) 40 mg PO [facility] Last Admin: 04/29/17 22:21 Dose: 40 mg Bacitracin (Bacitracin -) 1 applic TP BID [facility] Last Admin: 04/29/17 22:19 Dose: 1 applic Gabapentin (Neurontin Oral Liquid -) 400 mg PO BID [facility] Last Admin: 04/29/17 22:21 Dose: 400 mg Cefazolin Sodium (Ancef -) 1 gm in 10 mls @ 120 mls/hr IVPUSH Q8H-IV [facility] Last Admin: 04/30/17 02:10 Dose: 120 mls/hr Insulin Aspart (Novolog Vial Sliding Scale -) 1 vial SQ TIDAC [facility] PRN Reason: Protocol Last Admin: 04/30/17 06:29 Dose: Not Given Loperamide HCl (Imodium Liquid -) 2 mg NGT BID PRN PRN Reason: DIARRHEA Metoprolol Tartrate (Lopressor -) 12.5 mg PO BID [facility] Last Admin: 04/29/17 22:19 Dose: 12.5 mg Mirtazapine (Remeron -) 15 mg PO HS [facility] Last Admin: 04/29/17 22:20 Dose: 15 mg Multi-Ingredient Ointment (Zinc Oxide) 1 applic TP DAILY [facility] Last Admin: 04/29/17 10:44 Dose: 1 applic Nystatin (Nystop Powder -) 1 applic TP DAILY [facility] Last Admin: 04/29/17 10:43 Dose: 1 applic Pantoprazole Sodium (Protonix Packets For Oral Suspension -) 40 mg NGT BID [facility] Last Admin: 04/29/17 22:20 Dose: 40 mg Potassium Phos/Sodium Phos (Phos-Nak Packet -) 1 packet GT TID [facility] Last Admin: 04/30/17 05:27 Dose: Not Given CBC, BMP 04/30/17 06:35 04/30/17 06:35 physical exam awake and comfortable Lungs--diminished at bases cvs- s1, s2 rrr abd - soft/ non tender Status post PEG ext- no edema neuro- ao x3 ASSESSMENT/PLAN: GI Bleed pneumonia Acute renal failure- better--back to baseline hypernatremia--- poor appetite depression status post PEG Inflammatory neuropathy Plan s/p --feeding tube tolerating feed GI follow-up noted--esophageal dilatation scheduled for today Will follow daily out of bed to chair Physical therapy Problem List - Problems (1) Anemia Code(s): D64.9 - ANEMIA, UNSPECIFIED Qualifiers: Bone marrow failure anemia type: pancytopenia, antineoplastic chemotherapy- induced (2) SOB (shortness of breath) Code(s): R06.02 - SHORTNESS OF BREATH (3) Atrial fibrillation Code(s): I48.91 - UNSPECIFIED ATRIAL FIBRILLATION Qualifiers: Atrial fibrillation type: paroxysmal Qualified Code(s): I48.0 - Paroxysmal atrial fibrillation (4) Multiple myeloma in remission Code(s): C90.01 - MULTIPLE MYELOMA IN REMISSION
[2017-04-30 10:26] LABS: ANISOCYTOSIS 1+; MACROCYTOSIS 1+; PLATELET ESTIMATE DECREASED; TEAR DROP CELLS 1+
[2017-04-30] MEDS ORDERED: PROPOFOL 20 ML ONE ×2 (10:49)
[2017-04-30] MEDS ORDERED: LIDOCAINE HCL 2% (20ML MULTI-DOSE VIAL) NR ONE (10:49)
[2017-04-30] MEDS ORDERED: ESMOLOL HCL 100,000 MCG/10 ML VIAL ONE (11:30)
--- NOTE | 2017-04-30 12:17 | PN ---
Progress Note (short form) - Note Progress Note: GI Procedure NOte: Pleae see scanned EGD report. A Schatzki ring was found which was disrupted with biopsies and dilation to 20mm with a balloon. A duodenal polyp was also sampled. Will try clear liquids. Problem List - Problems (1) Dysphagia Code(s): R13.10 - DYSPHAGIA, UNSPECIFIED Qualifiers: Dysphagia type: other dysphagia Qualified Code(s): R13.19 - Other dysphagia (2) Anemia Code(s): D64.9 - ANEMIA, UNSPECIFIED Qualifiers: Bone marrow failure anemia type: pancytopenia, antineoplastic chemotherapy- induced
--- NOTE | 2017-04-30 12:25 | PN ---
Progress Note, Physician History of Present Illness: s/p EGD showing Schatzki ring which was dilated and planned for trial of clear liquid diet. - Current Medication List Current Medications: Active Medications Acetaminophen (Tylenol -) 650 mg PO Q6H PRN PRN Reason: FEVER OR PAIN Last Admin: 04/28/17 21:58 Dose: 650 mg Atorvastatin Calcium (Lipitor -) 40 mg PO HS [facility] Last Admin: 04/29/17 22:21 Dose: 40 mg Bacitracin (Bacitracin -) 1 applic TP BID [facility] Last Admin: 04/29/17 22:19 Dose: 1 applic Gabapentin (Neurontin Oral Liquid -) 400 mg PO BID [facility] Last Admin: 04/29/17 22:21 Dose: 400 mg Cefazolin Sodium (Ancef -) 1 gm in 10 mls @ 120 mls/hr IVPUSH Q8H-IV [facility] Last Admin: 04/30/17 02:10 Dose: 120 mls/hr Potassium Phosphate 15 mm/ (Dextrose) 255 mls @ 63.75 mls/hr IVPB ONCE ONE PRN Reason: 15 MM/4 HR Stop: 04/30/17 16:59 Insulin Aspart (Novolog Vial Sliding Scale -) 1 vial SQ TIDAC [facility] PRN Reason: Protocol Last Admin: 04/30/17 06:29 Dose: Not Given Loperamide HCl (Imodium Liquid -) 2 mg NGT BID PRN PRN Reason: DIARRHEA Metoprolol Tartrate (Lopressor -) 12.5 mg PO BID [facility] Last Admin: 04/29/17 22:19 Dose: 12.5 mg Mirtazapine (Remeron -) 15 mg PO [facility] Last Admin: 04/29/17 22:20 Dose: 15 mg Multi-Ingredient Ointment (Zinc Oxide) 1 applic TP DAILY [facility] Last Admin: 04/29/17 10:44 Dose: 1 applic Nystatin (Nystop Powder -) 1 applic TP DAILY [facility] Last Admin: 04/29/17 10:43 Dose: 1 applic Pantoprazole Sodium (Protonix Packets For Oral Suspension -) 40 mg NGT BID [facility] Last Admin: 04/29/17 22:20 Dose: 40 mg Potassium Phos/Sodium Phos (Phos-Nak Packet -) 1 packet GT TID [facility] Last Admin: 04/30/17 05:27 Dose: Not Given - Objective Vital Signs: Vital Signs Temperature 98.7 F 04/30/17 11:54 Pulse Rate 118 H 04/30/17 12:10 Respiratory Rate 20 04/30/17 12:10 Blood Pressure 110/70 04/30/17 12:10 O2 Sat by Pulse Oximetry (%) 95 04/30/17 12:10 Constitutional: Yes: No Distress, Calm Neck: Yes: Supple Cardiovascular: Yes: Regular Rate and Rhythm Respiratory: Yes: Regular, Diminished Gastrointestinal: Yes: Soft, Hypoactive Bowel Sounds Edema: No Labs: CBC, BMP 04/30/17 06:35 04/30/17 06:35 INR, PTT INR 1.17 (0.82-1.09) H 04/26/17 07:00 Problem List - Problems (1) SOB (shortness of breath) Code(s): R06.02 - SHORTNESS OF BREATH (2) Atrial fibrillation Code(s): I48.91 - UNSPECIFIED ATRIAL FIBRILLATION Qualifiers: Atrial fibrillation type: paroxysmal Qualified Code(s): I48.0 - Paroxysmal atrial fibrillation (3) Diastolic dysfunction Code(s): I51.9 - HEART DISEASE, UNSPECIFIED (4) Multiple myeloma in remission Code(s): C90.01 - MULTIPLE MYELOMA IN REMISSION (5) Anemia Code(s): D64.9 - ANEMIA, UNSPECIFIED Qualifiers: Bone marrow failure anemia type: pancytopenia, antineoplastic chemotherapy- induced (6) Dysphagia Code(s): R13.10 - DYSPHAGIA, UNSPECIFIED Qualifiers: Dysphagia type: other dysphagia Qualified Code(s): R13.19 - Other dysphagia (7) Status post insertion of percutaneous endoscopic gastrostomy (PEG) tube Code(s): Z93.1 - GASTROSTOMY STATUS (8) Dysphagia Code(s): R13.10 - DYSPHAGIA, UNSPECIFIED Qualifiers: Dysphagia type: esophageal phase Qualified Code(s): R13.10 - Dysphagia, unspecified (9) Schatzki's ring of distal esophagus Code(s): K22.2 - ESOPHAGEAL OBSTRUCTION Assessment/Plan 1. Dysphagia s/p PEG placement and Schatzki ring dilatation 2. Symptomatic anemia post transfusion 3. Paroxysmal atrial fibrillation with periods of rapid ventricular response currently in sinus rhythm [id number] score of 3 - off A/C with NOAC (Eliquis) 4. Coronary artery disease, angina pectoris 5. LV diastolic dysfunction with chronic class 0-I NYHA classification LV failure, compensated/euvolemic 6. Hypertension 7. DM 8. Hypercholesterolemia 9. Thrombocytopenia, resolved 10. History of multiple myeloma post stem cell transplant 11. History of peripheral neuropathy 12. Dysphagia referable to Schatzki ring post dilatation 13. Recurrent fever - LLL asp pneumonia PLAN: 1. Complete antibiotic course as per ID 2. Lopressor 12.5 bid, Lipitor 40 qhs, enteral feeds with free water flushes 3. Aspiration precautions, Protonix 40 bid 4. Clear liquid diet with advancement as tolerated, resume Eliquis once post- procedure hemostasis achieved, f/u pathology
[2017-04-30] MEDS ORDERED: PT OWN MED DRAWER 7, Y5N ONE ×2 (12:44→21:44)
[2017-04-30] MEDS ORDERED: POTASSIUM PHOSPHATE 15 MM in DEXTROSE 5%-WATER - 250 ML IVPB ONE (13:00)
--- NOTE | 2017-04-30 13:06 | PN ---
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 A duodenal polyp was also sampled.Trial of clear liquids ordered. Sleepy. Expectorating a little phlegm/blood. Nursing will hold PO trials until stable. Suggest starting slowly, maybe just a few sips to see if it stays down. Maintain HOB elevated.
[2017-04-30] MEDS: BACITRACIN 15 GM TUBE TOPICAL OINTMENT TP SCH ×2 (14:40→22:38)
--- NOTE | 2017-04-30 14:40 | PN ---
Progress Note (short form) - Note Progress Note: Patient seen and examined S/P endoscopy with disruption of Schatzki ring and esophageal dilatation Last Vital Signs Temp Pulse Resp BP Pulse Ox 100.5 F H 120 H 18 110/82 93 L 04/30/17 13:20 04/30/17 13:20 04/30/17 13:20 04/30/17 13:20 04/30/17 13:07 HEENT: anisocoria; left eye with decrease in vision and ptosis Oropharynx: , mildly coated tongue, No mucositis Neck: Supple Nodes: Without adenopathy Cor: RSR, No murmurs, No gallops Lungs: poor inspiratory effort Abd: Soft, Normal bowel sounds, No organomegaly Ext:No significant edema Skin: No rashes, Integument intact CBC, BMP 04/30/17 06:35 04/30/17 06:35 Current Medications Generic Name Dose Route Start Last Admin Trade Name Freq PRN Reason Stop Dose Admin Acetaminophen 650 mg 04/21/17 07:47 04/28/17 21:58 Tylenol - PO 650 mg Q6H PRN Administration FEVER OR PAIN Atorvastatin Calcium 40 mg 04/21/17 22:00 04/29/17 22:21 Lipitor - PO 40 mg HS JAMIE Administration Bacitracin 1 applic 04/26/17 22:00 04/29/17 22:19 Bacitracin - TP 1 applic BID JAMIE Administration Gabapentin 400 mg 04/27/17 11:27 04/29/17 22:21 Neurontin Oral Liquid - PO 400 mg BID JAMIE Administration Cefazolin Sodium 1 gm in 10 mls @ 120 mls/hr 04/26/17 18:00 04/30/17 02:10 Ancef - IVPUSH 120 mls/hr Q8H-IV JAMIE Administration Potassium Phosphate 15 mm/ 255 mls @ 63.75 mls/hr 04/30/17 13:00 Dextrose IVPB 04/30/17 16:59 ONCE ONE 15 MM/4 HR Insulin Aspart 1 vial 04/21/17 11:00 04/30/17 06:29 Novolog Vial Sliding Scale - SQ Not Given TIDAC JAMIE Protocol Loperamide HCl 2 mg 04/25/17 14:45 Imodium Liquid - NGT BID PRN DIARRHEA Metoprolol Tartrate 12.5 mg 04/19/17 13:31 04/29/17 22:19 Lopressor - PO 12.5 mg BID JAMIE Administration Mirtazapine 15 mg 04/23/17 22:00 04/29/17 22:20 Remeron - PO 15 mg HS JAMIE Administration Multi-Ingredient Ointment 1 applic 04/24/17 22:00 04/29/17 10:44 Zinc Oxide TP 1 applic DAILY JAMIE Administration Nystatin 1 applic 04/25/17 22:00 04/29/17 10:43 Nystop Powder - TP 1 applic DAILY JAMIE Administration Pantoprazole Sodium 40 mg 04/25/17 22:00 04/29/17 22:20 Protonix Packets For Oral Suspension - NGT 40 mg BID JAMIE Administration Potassium Phos/Sodium Phos 1 packet 04/28/17 15:45 04/30/17 05:27 Phos-Nak Packet - GT Not Given TID JAMIE Impression: Multiple myeloma in remission Failure to thrive Inability to swallow and aspiration --Schatzki ring disruption and esophageal dilatation Aspiration Febrile--on Ancef Thrombocytopenia --?? sepsis/ ?? other Decreased vision left eye- when stable-- surgery Plan: Monitor CBC ?? need to adjust antibiotics Trial of liquids per GI Blood cultures. Problem List - Problems (1) Anemia Code(s): D64.9 - ANEMIA, UNSPECIFIED Qualifiers: Bone marrow failure anemia type: pancytopenia, antineoplastic chemotherapy- induced (2) Atrial fibrillation Code(s): I48.91 - UNSPECIFIED ATRIAL FIBRILLATION Qualifiers: Atrial fibrillation type: paroxysmal Qualified Code(s): I48.0 - Paroxysmal atrial fibrillation (3) SOB (shortness of breath) Code(s): R06.02 - SHORTNESS OF BREATH (4) Acute bacterial conjunctivitis of left eye Code(s): H10.32 - UNSPECIFIED ACUTE CONJUNCTIVITIS, LEFT EYE (5) Hypokalemia Code(s): E87.6 - HYPOKALEMIA (6) Multiple myeloma in remission Code(s): C90.01 - MULTIPLE MYELOMA IN REMISSION (7) Thrombocytopenia Code(s): D69.6 - THROMBOCYTOPENIA, UNSPECIFIED
[2017-04-30] MEDS: METOPROLOL TARTRATE 25 MG TABLET (FP) PO SCH ×2 (14:44→22:39)
[2017-04-30] MEDS: PANTOPRAZOLE SOD 40 MG SUSPENSION PACKET NGT SCH ×2 (14:45→22:40)
[2017-04-30] MEDS: ZINC OXIDE 20% TOPICAL OINTMENT 30 GM TUBE TP SCH (14:45)
[2017-04-30] MEDS: NYSTATIN POWDER 100,000 UNITS/GM - 15 GM TOPICAL POWDER TP SCH (14:45)
[2017-04-30] MEDS: GABAPENTIN 250 MG/5 ML ORAL SOLUTION, 470 ML BOTTLE PO SCH ×2 (14:46→22:40)
[2017-04-30] MEDS: ATORVASTATIN CA 40 MG TABLET (FP) PO SCH (22:38)
[2017-04-30] MEDS: MIRTAZAPINE 15 MG TABLET (FP) PO SCH (22:41)
[2017-05-01] MEDS: CEFAZOLIN 1 GM PUSH 1 GM/10 ML DISP.SYRIN IVPUSH SCH ×3 (02:16→17:59)
[2017-05-01] MEDS: INSULIN SLIDING SCALE (NOVOLOG) 1 VIAL SQ SCH ×3 (06:02→17:43)
[2017-05-01] MEDS: NAPH,MB-DB/K PH,MBDB POWDER PACKET GT SCH ×3 (06:16→23:52)
[2017-05-01] MEDS: METOPROLOL TARTRATE 25 MG TABLET (FP) PO SCH ×2 (10:28→23:52)
[2017-05-01] MEDS: PANTOPRAZOLE SOD 40 MG SUSPENSION PACKET NGT SCH ×2 (10:28→23:51)
[2017-05-01] MEDS: GABAPENTIN 250 MG/5 ML ORAL SOLUTION, 470 ML BOTTLE PO SCH ×2 (10:29→23:54)
[2017-05-01] MEDS: NYSTATIN POWDER 100,000 UNITS/GM - 15 GM TOPICAL POWDER TP SCH (10:31)
[2017-05-01] MEDS: ZINC OXIDE 20% TOPICAL OINTMENT 30 GM TUBE TP SCH (10:31)
[2017-05-01] MEDS: BACITRACIN 15 GM TUBE TOPICAL OINTMENT TP SCH ×2 (10:31→23:52)
[2017-05-01 10:51] LABS: ANION GAP 8 (8-16); BLOOD UREA NITROGEN 12 mg/dL (7-18); CALCIUM 7.2 mg/dL (8.5-10.1); CHLORIDE 107 mmol/L (98-107); CO2 24 mmol/L (21-32); CREATININE 0.5 mg/dL (0.7-1.3); GLUCOSE,RANDOM 108 mg/dL (74-106); PHOSPHOROUS 2.2 mg/dL (2.5-4.9); SODIUM 139 mmol/L (136-145)
--- NOTE | 2017-05-01 12:26 | PN ---
Progress Note (short form) - Note Progress Note: Chief Complaint: Events noted, notes reviewed, denies any chest pain or dyspnea History of Present Illness: Seen and examined. Events noted, notes reviewed, denies any chest pain or dyspnea Echocardiography dated 03/26/17 revealed normal LV size and function - Current Medication List Current Medications Acetaminophen (Tylenol -) 650 mg PO Q6H PRN PRN Reason: FEVER OR PAIN Last Admin: 04/28/17 21:58 Dose: 650 mg Atorvastatin Calcium (Lipitor -) 40 mg PO HS [facility] Last Admin: 04/30/17 22:38 Dose: 40 mg Bacitracin (Bacitracin -) 1 applic TP BID [facility] Last Admin: 05/01/17 10:31 Dose: 1 applic Gabapentin (Neurontin Oral Liquid -) 400 mg PO BID [facility] Last Admin: 05/01/17 10:29 Dose: 400 mg Cefazolin Sodium (Ancef -) 1 gm in 10 mls @ 120 mls/hr IVPUSH Q8H-IV [facility] Last Admin: 05/01/17 10:28 Dose: 120 mls/hr Insulin Aspart (Novolog Vial Sliding Scale -) 1 vial SQ TIDAC [facility] PRN Reason: Protocol Last Admin: 05/01/17 06:02 Dose: Not Given Loperamide HCl (Imodium Liquid -) 2 mg NGT BID PRN PRN Reason: DIARRHEA Metoprolol Tartrate (Lopressor -) 12.5 mg PO BID [facility] Last Admin: 05/01/17 10:28 Dose: 12.5 mg Mirtazapine (Remeron -) 15 mg PO [facility] Last Admin: 04/30/17 22:41 Dose: 15 mg Multi-Ingredient Ointment (Zinc Oxide) 1 applic TP DAILY [facility] Last Admin: 05/01/17 10:31 Dose: 1 applic Nystatin (Nystop Powder -) 1 applic TP DAILY [facility] Last Admin: 05/01/17 10:31 Dose: 1 applic Pantoprazole Sodium (Protonix Packets For Oral Suspension -) 40 mg NGT BID [facility] Last Admin: 05/01/17 10:28 Dose: 40 mg Potassium Phos/Sodium Phos (Phos-Nak Packet -) 1 packet GT TID [facility] Last Admin: 05/01/17 06:16 Dose: 1 packet - Objective Vital Signs: Last Vital Signs Temp Pulse Resp BP Pulse Ox 98.5 F 105 H 18 110/68 93 L 05/01/17 10:00 05/01/17 10:00 05/01/17 10:00 05/01/17 10:00 04/30/17 21:00 Intake & Output 04/28/17 04/29/17 04/30/17 05/01/17 23:59 23:59 23:59 23:59 Intake Total 170 3025 1725 880 Balance 170 3025 1725 880 Constitutional: No Distress, Calm Neck: Supple Negative JVD No bruit Cardiovascular: S1 S2 Regular Rate Rhythm Respiratory: Diminished Breath Sounds at the Bases Gastrointestinal: Soft Benign Normal Bowel Sounds Ext: No Edema Labs: CBC, BMP 04/30/17 06:35 05/01/17 09:50 Assessment/Plan ASSESSMENT: 1. Dysphagia post PEG placement and Schatzki's ring dilatation 2. Symptomatic anemia post transfusion 3. Paroxysmal atrial fibrillation with periods of rapid ventricular response currently in sinus rhythm [id number] score of 3, currently off of A/C NOAC's/ Eliquis 4. Coronary artery disease angina pectoris 5. LV diastolic dysfunction with chronic class 0-I NYHA classification LV failure, compensated/euvolemic 6. Hypertension 7. DM 8. Hypercholesterolemia 9. Thrombocytopenia 10. History of multiple myeloma post stem cell transplant 11. History of peripheral neuropathy PLAN: 1. Resume Eliquis once hemostasis is achieved 2. Continue Lopressor hemodynamics permitting 3. Continue Lipitor 4. Recommend the addition of ACEI or ARBS hemodynamics permitting unless it is absolutely contraindicated, hemodynamics permitting 5. Antibiotics as per the ID/primary team Tank Munoz M.D.
--- NOTE | 2017-05-01 12:34 | PN ---
Progress Note (short form) - Note Progress Note: Renal follow up for Hypernatremia/Hypokalemia Pt seen and examined at the bedside awake and alert EGD showed a Schatzki ring that was dilated pt is tolerated liquids no N/V, cough making urine getting feeds via G-tube Vital Signs Temperature 98.5 F 05/01/17 10:00 Pulse Rate 105 H 05/01/17 10:00 Respiratory Rate 18 05/01/17 10:00 Blood Pressure 110/68 05/01/17 10:00 O2 Sat by Pulse Oximetry (%) 93 L 04/30/17 21:00 Intake & Output 04/28/17 04/29/17 04/30/17 05/01/17 23:59 23:59 23:59 23:59 Intake Total 170 3025 1725 880 Balance 170 3025 1725 880 NAD RRR soft Obese, NT/ND No Le edema CBC, BMP 04/30/17 06:35 05/01/17 09:50 Current Medications Acetaminophen (Tylenol -) 650 mg PO Q6H PRN PRN Reason: FEVER OR PAIN Last Admin: 04/28/17 21:58 Dose: 650 mg Atorvastatin Calcium (Lipitor -) 40 mg PO [facility] Last Admin: 04/30/17 22:38 Dose: 40 mg Bacitracin (Bacitracin -) 1 applic TP BID [facility] Last Admin: 05/01/17 10:31 Dose: 1 applic Gabapentin (Neurontin Oral Liquid -) 400 mg PO BID [facility] Last Admin: 05/01/17 10:29 Dose: 400 mg Cefazolin Sodium (Ancef -) 1 gm in 10 mls @ 120 mls/hr IVPUSH Q8H-IV [facility] Last Admin: 05/01/17 10:28 Dose: 120 mls/hr Insulin Aspart (Novolog Vial Sliding Scale -) 1 vial SQ TIDAC [facility] PRN Reason: Protocol Last Admin: 05/01/17 06:02 Dose: Not Given Loperamide HCl (Imodium Liquid -) 2 mg NGT BID PRN PRN Reason: DIARRHEA Metoprolol Tartrate (Lopressor -) 12.5 mg PO BID [facility] Last Admin: 05/01/17 10:28 Dose: 12.5 mg Mirtazapine (Remeron -) 15 mg PO [facility] Last Admin: 04/30/17 22:41 Dose: 15 mg Multi-Ingredient Ointment (Zinc Oxide) 1 applic TP DAILY [facility] Last Admin: 05/01/17 10:31 Dose: 1 applic Nystatin (Nystop Powder -) 1 applic TP DAILY [facility] Last Admin: 05/01/17 10:31 Dose: 1 applic Pantoprazole Sodium (Protonix Packets For Oral Suspension -) 40 mg NGT BID [facility] Last Admin: 05/01/17 10:28 Dose: 40 mg Potassium Phos/Sodium Phos (Phos-Nak Packet -) 1 packet GT TID [facility] Last Admin: 05/01/17 06:16 Dose: 1 packet 71 year old gentleman with PMhx of Atrial fibrillation ,DM2, Multiple myeloma ( in remission), HTN, osteoarthritis of knees who presented to the ER on with worsening SOB and found to have hypernatremia, hypokalemia and hypophosphatemia. #Electrolyte abnormalities (Hypernatremia, Hypokalemia, Hypophosphatemia) overall improved continue Neutraphos as phos still low continue tube feeds check electrolytes daily #Dysphagia s/p EGD with dilation of Schatzi ring tolerating fluids GI following Thank you Jem Quezada DO
--- NOTE | 2017-05-01 13:49 | PN ---
Progress Note (short form) - Note Progress Note: Pt seen/ examined comfortable all f/u noted afebrile denies pain. looks better tolerating feeding Vital Signs Temp 98.5 F 05/01/17 10:00 Pulse 105 H 05/01/17 10:00 Resp 18 05/01/17 10:00 BP 110/68 05/01/17 10:00 Pulse Ox 93 L 04/30/17 21:00 Intake & Output 04/30/17 05/01/17 05/01/17 23:59 11:59 23:59 Intake Total 880 Balance 880 Intake: Tube Feeding 600 Tube Irrigant 280 Other: Voiding Method Diaper Incontinent # Unmeasured Voids Void 3 3 Bowel Movement Yes No # Bowel Movements 3 Active Medications Acetaminophen (Tylenol -) 650 mg PO Q6H PRN PRN Reason: FEVER OR PAIN Last Admin: 04/28/17 21:58 Dose: 650 mg Atorvastatin Calcium (Lipitor -) 40 mg PO [facility] Last Admin: 04/30/17 22:38 Dose: 40 mg Bacitracin (Bacitracin -) 1 applic TP BID [facility] Last Admin: 05/01/17 10:31 Dose: 1 applic Gabapentin (Neurontin Oral Liquid -) 400 mg PO BID [facility] Last Admin: 05/01/17 10:29 Dose: 400 mg Cefazolin Sodium (Ancef -) 1 gm in 10 mls @ 120 mls/hr IVPUSH Q8H-IV [facility] Last Admin: 05/01/17 10:28 Dose: 120 mls/hr Insulin Aspart (Novolog Vial Sliding Scale -) 1 vial SQ TIDAC [facility] PRN Reason: Protocol Last Admin: 05/01/17 12:50 Dose: 2 units Loperamide HCl (Imodium Liquid -) 2 mg NGT BID PRN PRN Reason: DIARRHEA Metoprolol Tartrate (Lopressor -) 12.5 mg PO BID [facility] Last Admin: 05/01/17 10:28 Dose: 12.5 mg Mirtazapine (Remeron -) 15 mg PO [facility] Last Admin: 04/30/17 22:41 Dose: 15 mg Multi-Ingredient Ointment (Zinc Oxide) 1 applic TP DAILY [facility] Last Admin: 05/01/17 10:31 Dose: 1 applic Nystatin (Nystop Powder -) 1 applic TP DAILY [facility] Last Admin: 05/01/17 10:31 Dose: 1 applic Pantoprazole Sodium (Protonix Packets For Oral Suspension -) 40 mg NGT BID [facility] Last Admin: 05/01/17 10:28 Dose: 40 mg Potassium Phos/Sodium Phos (Phos-Nak Packet -) 1 packet GT TID [facility] Last Admin: 05/01/17 06:16 Dose: 1 packet CBC, BMP 04/30/17 06:35 05/01/17 09:50 physical exam awake and comfortable Lungs--diminished at bases cvs- s1, s2 rrr abd - soft/ non tender Status post PEG ext- no edema neuro- ao x3 ASSESSMENT/PLAN: GI Bleed pneumonia Acute renal failure- better--back to baseline hypernatremia--- poor appetite depression status post PEG Inflammatory neuropathy Plan s/p --feeding tube tolerating feed GI follow-up noted--s/p esophageal dilatation trial of liquid diet Will follow daily out of bed to chair Physical therapy d/c abx ? will discuss with GI Problem List - Problems (1) Anemia Code(s): D64.9 - ANEMIA, UNSPECIFIED Qualifiers: Bone marrow failure anemia type: pancytopenia, antineoplastic chemotherapy- induced (2) SOB (shortness of breath) Code(s): R06.02 - SHORTNESS OF BREATH (3) Atrial fibrillation Code(s): I48.91 - UNSPECIFIED ATRIAL FIBRILLATION Qualifiers: Atrial fibrillation type: paroxysmal Qualified Code(s): I48.0 - Paroxysmal atrial fibrillation (4) Multiple myeloma in remission Code(s): C90.01 - MULTIPLE MYELOMA IN REMISSION
[2017-05-01 14:42] LABS: URINE CREATININE 48.9 mg/dL (20-370)
[2017-05-01] MEDS ORDERED: PT OWN MED DRAWER 7, Y5N ONE (20:58)
[2017-05-01] MEDS: APIXABAN 5 MG TABLET PO SCH (23:51)
[2017-05-01] MEDS: MIRTAZAPINE 15 MG TABLET (FP) PO SCH (23:51)
[2017-05-01] MEDS: ATORVASTATIN CA 40 MG TABLET (FP) PO SCH (23:51)
[2017-05-02] MEDS ORDERED: PT OWN MED DRAWER 7, Y5N ONE ×2 (01:48→20:54)
[2017-05-02] MEDS: CEFAZOLIN 1 GM PUSH 1 GM/10 ML DISP.SYRIN IVPUSH SCH ×2 (02:56→10:44)
[2017-05-02] MEDS: NAPH,MB-DB/K PH,MBDB POWDER PACKET GT SCH ×3 (05:44→22:15)
[2017-05-02] MEDS: ACETAMINOPHEN 325 MG TABLET (FP) PO PRN (05:44)
[2017-05-02] MEDS: INSULIN SLIDING SCALE (NOVOLOG) 1 VIAL SQ SCH ×3 (06:01→17:54)
[2017-05-02 08:26] LABS: ANION GAP 9 (8-16); BLOOD UREA NITROGEN 10 mg/dL (7-18); CHLORIDE 107 mmol/L (98-107); CO2 25 mmol/L (21-32); CREATININE 0.6 mg/dL (0.7-1.3); GLUCOSE,RANDOM 120 mg/dL (74-106); MAGNESIUM 1.8 mg/dL (1.8-2.4); PHOSPHOROUS 2.8 mg/dL (2.5-4.9); POTASSIUM 4.1 mmol/L (3.5-5.1); SODIUM 141 mmol/L (136-145)
[2017-05-02] MEDS: PANTOPRAZOLE SOD 40 MG SUSPENSION PACKET NGT SCH ×2 (10:43→22:13)
[2017-05-02] MEDS: METOPROLOL TARTRATE 25 MG TABLET (FP) PO SCH ×2 (10:43→22:14)
[2017-05-02] MEDS: APIXABAN 5 MG TABLET PO SCH ×2 (10:44→22:13)
[2017-05-02] MEDS: GABAPENTIN 250 MG/5 ML ORAL SOLUTION, 470 ML BOTTLE PO SCH ×2 (10:44→22:15)
[2017-05-02] MEDS: ZINC OXIDE 20% TOPICAL OINTMENT 30 GM TUBE TP SCH (10:46)
[2017-05-02] MEDS: NYSTATIN POWDER 100,000 UNITS/GM - 15 GM TOPICAL POWDER TP SCH (10:46)
[2017-05-02] MEDS: BACITRACIN 15 GM TUBE TOPICAL OINTMENT TP SCH ×2 (10:46→22:14)
--- NOTE | 2017-05-02 11:47 | PN ---
Progress Note (short form) - Note Progress Note: pt seen/ examined comfortable family at bedside-- / daughter. denies pain. low grade temp last night taking orally liquids - without any difficulty. Vital Signs Temp 98.4 F 05/02/17 07:08 Pulse 112 H 05/02/17 05:43 Resp 20 05/02/17 05:43 BP 116/75 05/02/17 05:43 Pulse Ox 95 05/01/17 21:00 Intake & Output 05/01/17 05/01/17 05/02/17 11:59 23:59 11:59 Intake Total 108 164 7518 Output Total 600 Balance 880 -70 1200 Intake: IVPB 10 Tube Feeding 600 520 720 Tube Irrigant 280 480 Output: Urine 600 Void 600 Other: Voiding Method Incontinent Incontinent Incontinent # Unmeasured Voids Void 3 2 Bowel Movement No Yes # Bowel Movements 2 Active Medications Acetaminophen (Tylenol -) 650 mg PO Q6H PRN PRN Reason: FEVER OR PAIN Last Admin: 05/02/17 05:44 Dose: 650 mg Apixaban (Eliquis -) 5 mg PO BID [facility] Last Admin: 05/02/17 10:44 Dose: 5 mg Atorvastatin Calcium (Lipitor -) 40 mg PO HS [facility] Last Admin: 05/01/17 23:51 Dose: 40 mg Bacitracin (Bacitracin -) 1 applic TP BID [facility] Last Admin: 05/02/17 10:46 Dose: 1 applic Gabapentin (Neurontin Oral Liquid -) 400 mg PO BID [facility] Last Admin: 05/02/17 10:44 Dose: 400 mg Cefazolin Sodium (Ancef -) 1 gm in 10 mls @ 120 mls/hr IVPUSH Q8H-IV [facility] Last Admin: 05/02/17 10:44 Dose: 120 mls/hr Insulin Aspart (Novolog Vial Sliding Scale -) 1 vial SQ TIDAC [facility] PRN Reason: Protocol Last Admin: 05/02/17 06:01 Dose: Not Given Loperamide HCl (Imodium Liquid -) 2 mg NGT BID PRN PRN Reason: DIARRHEA Last Admin: 05/02/17 10:43 Dose: 2 mg Metoprolol Tartrate (Lopressor -) 12.5 mg PO BID [facility] Last Admin: 05/02/17 10:43 Dose: 12.5 mg Mirtazapine (Remeron -) 15 mg PO HS [facility] Last Admin: 05/01/17 23:51 Dose: 15 mg Multi-Ingredient Ointment (Zinc Oxide) 1 applic TP DAILY [facility] Last Admin: 05/02/17 10:46 Dose: 1 applic Nystatin (Nystop Powder -) 1 applic TP DAILY [facility] Last Admin: 05/02/17 10:46 Dose: 1 applic Pantoprazole Sodium (Protonix Packets For Oral Suspension -) 40 mg NGT BID [facility] Last Admin: 05/02/17 10:43 Dose: 40 mg Potassium Phos/Sodium Phos (Phos-Nak Packet -) 1 packet GT TID [facility] Last Admin: 05/02/17 05:44 Dose: 1 packet CBC, BMP 04/30/17 06:35 05/02/17 06:00 Physical exam awake and comfortable Lungs--clear cvs- s1, s2 rrr abd - soft/ non tender Status post PEG ext- no edema neuro- ao x3 ASSESSMENT/PLAN: GI Bleed pneumonia Acute renal failure- better--back to baseline hypernatremia--- poor appetite depression status post PEG Inflammatory neuropathy Plan s/p --feeding tube tolerating feed GI follow-up noted--s/p esophageal dilatation trial of liquid diet- tolerating advance diet -gi to follow daily out of bed to chair Physical therapy d/c abx f/u labs tomorrow. discharge planning -- str- discussed with pt/ / -- in agreement. Problem List - Problems (1) Anemia Code(s): D64.9 - ANEMIA, UNSPECIFIED Qualifiers: Bone marrow failure anemia type: pancytopenia, antineoplastic chemotherapy- induced (2) SOB (shortness of breath) Code(s): R06.02 - SHORTNESS OF BREATH (3) Atrial fibrillation Code(s): I48.91 - UNSPECIFIED ATRIAL FIBRILLATION Qualifiers: Atrial fibrillation type: paroxysmal Qualified Code(s): I48.0 - Paroxysmal atrial fibrillation (4) Multiple myeloma in remission Code(s): C90.01 - MULTIPLE MYELOMA IN REMISSION
--- NOTE | 2017-05-02 13:19 | PN ---
Progress Note (short form) - Note Progress Note: Chief Complaint: Events noted, notes reviewed, denies any chest pain or dyspnea History of Present Illness: Seen and examined. Events noted, notes reviewed, denies any chest pain or dyspnea Echocardiography dated 03/26/17 revealed normal LV size and function - Current Medication List Current Medications Acetaminophen (Tylenol -) 650 mg PO Q6H PRN PRN Reason: FEVER OR PAIN Last Admin: 05/02/17 05:44 Dose: 650 mg Apixaban (Eliquis -) 5 mg PO BID [facility] Last Admin: 05/02/17 10:44 Dose: 5 mg Atorvastatin Calcium (Lipitor -) 40 mg PO HS [facility] Last Admin: 05/01/17 23:51 Dose: 40 mg Bacitracin (Bacitracin -) 1 applic TP BID [facility] Last Admin: 05/02/17 10:46 Dose: 1 applic Gabapentin (Neurontin Oral Liquid -) 400 mg PO BID [facility] Last Admin: 05/02/17 10:44 Dose: 400 mg Insulin Aspart (Novolog Vial Sliding Scale -) 1 vial SQ TIDAC [facility] PRN Reason: Protocol Last Admin: 05/02/17 12:13 Dose: Not Given Loperamide HCl (Imodium Liquid -) 2 mg NGT BID PRN PRN Reason: DIARRHEA Last Admin: 05/02/17 10:43 Dose: 2 mg Metoprolol Tartrate (Lopressor -) 12.5 mg PO BID [facility] Last Admin: 05/02/17 10:43 Dose: 12.5 mg Mirtazapine (Remeron -) 15 mg PO [facility] Last Admin: 05/01/17 23:51 Dose: 15 mg Multi-Ingredient Ointment (Zinc Oxide) 1 applic TP DAILY [facility] Last Admin: 05/02/17 10:46 Dose: 1 applic Nystatin (Nystop Powder -) 1 applic TP DAILY [facility] Last Admin: 05/02/17 10:46 Dose: 1 applic Pantoprazole Sodium (Protonix Packets For Oral Suspension -) 40 mg NGT BID [facility] Last Admin: 05/02/17 10:43 Dose: 40 mg Potassium Phos/Sodium Phos (Phos-Nak Packet -) 1 packet GT TID [facility] Last Admin: 05/02/17 05:44 Dose: 1 packet - Objective Vital Signs: Last Vital Signs Temp Pulse Resp BP Pulse Ox 98.4 F 112 H 20 116/75 95 05/02/17 07:08 05/02/17 05:43 05/02/17 05:43 05/02/17 05:43 05/01/17 21:00 Intake & Output 04/29/17 04/30/17 05/01/17 05/02/17 23:59 23:59 23:59 23:59 Intake Total 3025 1725 1410 1200 Output Total 600 Balance 3025 7797 674 3853 Constitutional: No Distress, Calm Neck: Supple Negative JVD No bruit Cardiovascular: S1 S2 Regular Rate Rhythm Respiratory: Diminished Breath Sounds at the Bases Gastrointestinal: Soft Benign Normal Bowel Sounds Ext: No Edema Labs: CBC, BMP 04/30/17 06:35 05/02/17 06:00 Assessment/Plan ASSESSMENT: 1. Dysphagia post PEG placement and Schatzki's ring dilatation 2. Symptomatic anemia post transfusion 3. Paroxysmal atrial fibrillation with periods of rapid ventricular response currently in sinus rhythm [id number] score of 3, on A/C therapy with NOAC's/ Eliquis 4. Coronary artery disease angina pectoris 5. LV diastolic dysfunction with chronic class 0-I NYHA classification LV failure, compensated/euvolemic 6. Hypertension 7. DM 8. Hypercholesterolemia 9. Thrombocytopenia 10. History of multiple myeloma post stem cell transplant 11. History of peripheral neuropathy PLAN: 1. Continue Eliquis with caution and close monitoring of CBC maintaining Hg equal or > 8.0 2. Continue Lopressor hemodynamics permitting 3. Continue Lipitor 4. Recommend the addition of ACEI or ARBS hemodynamics permitting unless it is absolutely contraindicated 5. Initiate PT Tank Munoz M.D.
[2017-05-02] MEDS: MIRTAZAPINE 15 MG TABLET (FP) PO SCH (22:13)
[2017-05-02] MEDS: ATORVASTATIN CA 40 MG TABLET (FP) PO SCH (22:13)
[2017-05-03] MEDS: NAPH,MB-DB/K PH,MBDB POWDER PACKET GT SCH ×3 (06:59→22:00)
[2017-05-03] MEDS: INSULIN SLIDING SCALE (NOVOLOG) 1 VIAL SQ SCH ×3 (06:59→16:25)
[2017-05-03 08:05] LABS: HEMATOCRIT 30.6 % (35.4-49); HEMOGLOBIN 9.9 GM/dL (11.7-16.9); MCH 32.7 pg (25.7-33.7); MCHC 32.3 g/dl (32.0-35.9); MEAN CELL VOLUME 101.3 fl (80-96); MEAN PLT VOLUME 9.8 fl (7.5-11.1); PLATELET COUNT 103 K/MM3 (134-434); RBC 3.02 M/mm3 (4.00-5.60); RDW 19.1 % (11.9-15.9)
[2017-05-03 08:23] LABS: CHLORIDE 105 mmol/L (98-107); POTASSIUM 3.8 mmol/L (3.5-5.1); SODIUM 141 mmol/L (136-145)
[2017-05-03 08:30] LABS: ALBUMIN 1.8 g/dl (3.4-5.0); ALK PHOS 145 U/L (45-117); ANION GAP 11 (8-16); BILIRUBIN,TOTAL 0.5 mg/dL (0.2-1.0); BLOOD UREA NITROGEN 9 mg/dL (7-18); CALCIUM 7.6 mg/dL (8.5-10.1); CO2 25 mmol/L (21-32); CREATININE 0.6 mg/dL (0.7-1.3); GLUCOSE,RANDOM 91 mg/dL (74-106); SGOT/AST 68 U/L (15-37); SGPT/ALT 29 U/L (12-78); TOT PROT 5.1 g/dl (6.4-8.2)
[2017-05-03] MEDS: BACITRACIN 15 GM TUBE TOPICAL OINTMENT TP SCH ×2 (09:34→21:57)
[2017-05-03] MEDS: NYSTATIN POWDER 100,000 UNITS/GM - 15 GM TOPICAL POWDER TP SCH (09:37)
--- NOTE | 2017-05-03 09:40 | PN ---
Progress Note, Physician History of Present Illness: Reports dysphagia on full liquids. - Current Medication List Current Medications: Active Medications Acetaminophen (Tylenol -) 650 mg PO Q6H PRN PRN Reason: FEVER OR PAIN Last Admin: 05/02/17 05:44 Dose: 650 mg Apixaban (Eliquis -) 5 mg PO BID [facility] Last Admin: 05/02/17 22:13 Dose: 5 mg Atorvastatin Calcium (Lipitor -) 40 mg PO HS [facility] Last Admin: 05/02/17 22:13 Dose: 40 mg Bacitracin (Bacitracin -) 1 applic TP BID [facility] Last Admin: 05/02/17 22:14 Dose: 1 applic Gabapentin (Neurontin Oral Liquid -) 400 mg PO BID [facility] Last Admin: 05/02/17 22:15 Dose: 400 mg Insulin Aspart (Novolog Vial Sliding Scale -) 1 vial SQ TIDAC [facility] PRN Reason: Protocol Last Admin: 05/03/17 06:59 Dose: Not Given Loperamide HCl (Imodium Liquid -) 2 mg NGT BID PRN PRN Reason: DIARRHEA Last Admin: 05/02/17 10:43 Dose: 2 mg Metoprolol Tartrate (Lopressor -) 12.5 mg PO BID [facility] Last Admin: 05/02/17 22:14 Dose: 12.5 mg Mirtazapine (Remeron -) 15 mg PO [facility] Last Admin: 05/02/17 22:13 Dose: 15 mg Multi-Ingredient Ointment (Zinc Oxide) 1 applic TP DAILY [facility] Last Admin: 05/02/17 10:46 Dose: 1 applic Nystatin (Nystop Powder -) 1 applic TP DAILY [facility] Last Admin: 05/02/17 10:46 Dose: 1 applic Pantoprazole Sodium (Protonix Packets For Oral Suspension -) 40 mg NGT BID [facility] Last Admin: 05/02/17 22:13 Dose: 40 mg Potassium Phos/Sodium Phos (Phos-Nak Packet -) 1 packet GT TID [facility] Last Admin: 05/03/17 06:59 Dose: 1 packet - Objective Vital Signs: Vital Signs Temperature 98 F 05/03/17 06:00 Pulse Rate 115 H 05/03/17 06:00 Respiratory Rate 20 05/03/17 06:00 Blood Pressure 119/71 05/03/17 06:00 O2 Sat by Pulse Oximetry (%) 96 05/02/17 21:00 Constitutional: Yes: No Distress, Calm Neck: Yes: Supple Cardiovascular: Yes: Regular Rate and Rhythm Respiratory: Yes: Regular, Diminished Gastrointestinal: Yes: Soft, Hypoactive Bowel Sounds Edema: No Labs: CBC, BMP 05/03/17 06:00 05/03/17 06:00 INR, PTT INR 1.17 (0.82-1.09) H 04/26/17 07:00 Problem List - Problems (1) SOB (shortness of breath) Code(s): R06.02 - SHORTNESS OF BREATH (2) Atrial fibrillation Code(s): I48.91 - UNSPECIFIED ATRIAL FIBRILLATION Qualifiers: Atrial fibrillation type: paroxysmal Qualified Code(s): I48.0 - Paroxysmal atrial fibrillation (3) Diastolic dysfunction Code(s): I51.9 - HEART DISEASE, UNSPECIFIED (4) Multiple myeloma in remission Code(s): C90.01 - MULTIPLE MYELOMA IN REMISSION (5) Anemia Code(s): D64.9 - ANEMIA, UNSPECIFIED Qualifiers: Bone marrow failure anemia type: pancytopenia, antineoplastic chemotherapy- induced (6) Status post insertion of percutaneous endoscopic gastrostomy (PEG) tube Code(s): Z93.1 - GASTROSTOMY STATUS (7) Dysphagia Code(s): R13.10 - DYSPHAGIA, UNSPECIFIED Qualifiers: Dysphagia type: esophageal phase Qualified Code(s): R13.10 - Dysphagia, unspecified (8) Schatzki's ring of distal esophagus Code(s): K22.2 - ESOPHAGEAL OBSTRUCTION Assessment/Plan 1. Dysphagia s/p PEG placement and Schatzki ring dilatation 2. Symptomatic anemia post transfusion 3. Paroxysmal atrial fibrillation with periods of rapid ventricular response currently in sinus rhythm [id number] score of 3 - off A/C with NOAC (Eliquis) 4. Coronary artery disease, angina pectoris 5. LV diastolic dysfunction with chronic class 0-I NYHA classification LV failure, compensated/euvolemic 6. Hypertension 7. DM 8. Hypercholesterolemia 9. Thrombocytopenia, resolved 10. History of multiple myeloma post stem cell transplant 11. History of peripheral neuropathy 12. Dysphagia referable to Schatzki ring post dilatation 13. Recurrent fever - LLL asp pneumonia PLAN: 1. Completed antibiotic course as per ID 2. Lopressor 12.5 bid, Lipitor 40 qhs, enteral feeds with free water flushes 3. Aspiration precautions, Protonix 40 bid 4. Full liquid diet with advancement as tolerated, resumed Eliquis 5 bid, f/u pathology
[2017-05-03] MEDS: GABAPENTIN 250 MG/5 ML ORAL SOLUTION, 470 ML BOTTLE PO SCH ×2 (10:12→22:02)
[2017-05-03] MEDS: PANTOPRAZOLE SOD 40 MG SUSPENSION PACKET NGT SCH ×2 (10:12→21:58)
[2017-05-03] MEDS: METOPROLOL TARTRATE 25 MG TABLET (FP) PO SCH ×2 (10:15→21:58)
[2017-05-03] MEDS: ZINC OXIDE 20% TOPICAL OINTMENT 30 GM TUBE TP SCH (10:15)
--- NOTE | 2017-05-03 10:31 | PN ---
Progress Note (short form) - Note Progress Note: pt devolved difficulty swallowing today. was swallowing liquids ok yesterday n other issues denies pain. Vital Signs Temp 98 F 05/03/17 06:00 pulse 115 H 05/03/17 06:00 Resp 20 05/03/17 06:00 BP 119/71 05/03/17 06:00 Pulse Ox 96 05/02/17 21:00 Intake & Output 05/02/17 05/02/17 05/03/17 11:59 23:59 11:59 Intake Total 1200 1600 300 Balance 1200 1600 300 Intake: Oral 300 Tube Feeding 720 720 Tube Irrigant 480 880 Other: Voiding Method Incontinent Urinal Incontinent # Unmeasured Voids Void 1 3 Bowel Movement Yes Yes # Bowel Movements 2 2 Active Medications Acetaminophen (Tylenol -) 650 mg PO Q6H PRN PRN Reason: FEVER OR PAIN Last Admin: 05/02/17 05:44 Dose: 650 mg Apixaban (Eliquis -) 5 mg PO BID [facility] Last Admin: 05/02/17 22:13 Dose: 5 mg Atorvastatin Calcium (Lipitor -) 40 mg PO [facility] Last Admin: 05/02/17 22:13 Dose: 40 mg Bacitracin (Bacitracin -) 1 applic TP BID [facility] Last Admin: 05/03/17 09:34 Dose: 1 applic Gabapentin (Neurontin Oral Liquid -) 400 mg PO BID [facility] Last Admin: 05/02/17 22:15 Dose: 400 mg Insulin Aspart (Novolog Vial Sliding Scale -) 1 vial SQ TIDAC [facility] PRN Reason: Protocol Last Admin: 05/03/17 06:59 Dose: Not Given Loperamide HCl (Imodium Liquid -) 2 mg NGT BID PRN PRN Reason: DIARRHEA Last Admin: 05/02/17 10:43 Dose: 2 mg Metoprolol Tartrate (Lopressor -) 12.5 mg PO BID [facility] Last Admin: 05/02/17 22:14 Dose: 12.5 mg Mirtazapine (Remeron -) 15 mg PO [facility] Last Admin: 05/02/17 22:13 Dose: 15 mg Multi-Ingredient Ointment (Zinc Oxide) 1 applic TP DAILY [facility] Last Admin: 05/02/17 10:46 Dose: 1 applic Nystatin (Nystop Powder -) 1 applic TP DAILY [facility] Last Admin: 05/03/17 09:37 Dose: 1 applic Pantoprazole Sodium (Protonix Packets For Oral Suspension -) 40 mg NGT BID [facility] Last Admin: 05/02/17 22:13 Dose: 40 mg Potassium Phos/Sodium Phos (Phos-Nak Packet -) 1 packet GT TID [facility] Last Admin: 05/03/17 06:59 Dose: 1 packet CBC, BMP 05/03/17 06:00 05/03/17 06:00 Physical exam awake and comfortable. Lungs--clear cvs- s1, s2 rrr abd - soft/ non tender Status post PEG ext- no edema neuro- ao x3 ASSESSMENT/PLAN: Dysphagia GI Bleed pneumonia Acute renal failure- better--back to baseline hypernatremia--- poor appetite depression status post PEG Inflammatory neuropathy Discussed with Dr. Gomez will not discharge today. will discuss with Dr. Fuller . Problem List - Problems (1) Anemia Code(s): D64.9 - ANEMIA, UNSPECIFIED Qualifiers: Bone marrow failure anemia type: pancytopenia, antineoplastic chemotherapy- induced (2) SOB (shortness of breath) Code(s): R06.02 - SHORTNESS OF BREATH (3) Atrial fibrillation Code(s): I48.91 - UNSPECIFIED ATRIAL FIBRILLATION Qualifiers: Atrial fibrillation type: paroxysmal Qualified Code(s): I48.0 - Paroxysmal atrial fibrillation (4) Multiple myeloma in remission Code(s): C90.01 - MULTIPLE MYELOMA IN REMISSION
[2017-05-03 10:47] LABS: ANISOCYTOSIS 1+; MACROCYTOSIS 0; PLATELET ESTIMATE DECREASED
--- NOTE | 2017-05-03 11:04 | PN ---
Progress Note (short form) - Note Progress Note: Patient seen and examined . Seen with GI- Dr. Fuller. Had farina and had emesis . Unable to tolerate this A.M. Coughing --? aspirating . Last Vital Signs Temp Pulse Resp BP Pulse Ox 98 F 115 H 20 119/71 96 05/03/17 06:00 05/03/17 06:00 05/03/17 06:00 05/03/17 06:00 05/02/17 21:00 Last Vital Signs HEENT- anisocoria, decreased vision bilateral , erythema eyes Coated tongue Cor: RSR, No murmurs, No gallops Lungs: poor inspiratory effort ; diminished breath sounds Abd: Soft, Normal bowel sounds, No organomegaly; feeding tube Ext:No significant edema Skin: No rashes, Integument intact CBC, BMP 05/03/17 06:00 05/03/17 06:00 Current Medications Generic Name Dose Route Start Last Admin Trade Name Freq PRN Reason Stop Dose Admin Acetaminophen 650 mg 04/21/17 07:47 05/02/17 05:44 Tylenol - PO 650 mg Q6H PRN Administration FEVER OR PAIN Apixaban 5 mg 05/01/17 22:00 05/02/17 22:13 Eliquis - PO 5 mg BID JAMIE Administration Atorvastatin Calcium 40 mg 04/21/17 22:00 05/02/17 22:13 Lipitor - PO 40 mg HS JAMIE Administration Bacitracin 1 applic 04/26/17 22:00 05/03/17 09:34 Bacitracin - TP 1 applic BID [facility] Administration Gabapentin 400 mg 04/27/17 11:27 05/02/17 22:15 Neurontin Oral Liquid - PO 400 mg BID [facility] Administration Insulin Aspart 1 vial 04/21/17 11:00 05/03/17 06:59 Novolog Vial Sliding Scale - SQ Not Given TIDAC [facility] Protocol Loperamide HCl 2 mg 04/25/17 14:45 05/02/17 10:43 Imodium Liquid - NGT 2 mg BID PRN Administration DIARRHEA Metoprolol Tartrate 12.5 mg 04/19/17 13:31 05/02/17 22:14 Lopressor - PO 12.5 mg BID JAMIE Administration Mirtazapine 15 mg 04/23/17 22:00 05/02/17 22:13 Remeron - PO 15 mg HS [facility] Administration Multi-Ingredient Ointment 1 applic 04/24/17 22:00 05/02/17 10:46 Zinc Oxide TP 1 applic DAILY [facility] Administration Nystatin 1 applic 04/25/17 22:00 05/03/17 09:37 Nystop Powder - TP 1 applic DAILY [facility] Administration Pantoprazole Sodium 40 mg 04/25/17 22:00 05/02/17 22:13 Protonix Packets For Oral Suspension - NGT 40 mg BID [facility] Administration Potassium Phos/Sodium Phos 1 packet 04/28/17 15:45 05/03/17 06:59 Phos-Nak Packet - GT 1 packet TID [facility]IE Administration Impression: Myeloma- not in remission Dysphagia S/P Schatzki ring disruption and esophageal dilatation Anemia Thrombocytopenia S/P PEG Coated tongue --?? thrush Neuropathy Glaucoma Plan: Per GI - barium swallow clear liquids mycelex monitor labs, cbc Problem List - Problems (1) Anemia Code(s): D64.9 - ANEMIA, UNSPECIFIED Qualifiers: Bone marrow failure anemia type: pancytopenia, antineoplastic chemotherapy- induced (2) Atrial fibrillation Code(s): I48.91 - UNSPECIFIED ATRIAL FIBRILLATION Qualifiers: Atrial fibrillation type: paroxysmal Qualified Code(s): I48.0 - Paroxysmal atrial fibrillation (3) SOB (shortness of breath) Code(s): R06.02 - SHORTNESS OF BREATH (4) Acute bacterial conjunctivitis of left eye Code(s): H10.32 - UNSPECIFIED ACUTE CONJUNCTIVITIS, LEFT EYE (5) Hypokalemia Code(s): E87.6 - HYPOKALEMIA (6) Multiple myeloma in remission Code(s): C90.01 - MULTIPLE MYELOMA IN REMISSION (7) Thrombocytopenia Code(s): D69.6 - THROMBOCYTOPENIA, UNSPECIFIED
--- NOTE | 2017-05-03 11:06 | PN ---
GI Progress Note Subjective: GI Note: Was tolerating clear liquids but this morning developed choking after trying farina. He describes trouble at the level of the pharynx/upper esophagus. Esophageal biopsies are still pending. The etiology for his swallowing difficulties remains unclear. His difficulties do predate this hospitalization. - Objective Vital Signs: Vital Signs Temperature 98 F 05/03/17 06:00 Pulse Rate 115 H 05/03/17 06:00 Respiratory Rate 20 05/03/17 06:00 Blood Pressure 119/71 05/03/17 06:00 O2 Sat by Pulse Oximetry (%) 96 05/02/17 21:00 Constitutional: Calm ...Auscultate: Yes: Normoactive Bowel Sounds ...Palpate: Yes: Soft, Other (nontender) Labs: CBC, BMP 05/03/17 06:00 05/03/17 06:00 INR, PTT INR 1.17 (0.82-1.09) H 04/26/17 07:00 Problem List - Problems (1) Dysphagia Assessment/Plan: Michael's dysphagia etiology remains a mystery as he has not responded to dilation. Await biopsies to exclude eosinophilic esophagitis however this is generally a disease of younger men. I have ordered an esophagram hoping that after the dilation that he may be able to do a more complete study to exclude achalasia vs persistent Schatzki ring or stricture or hypertensive LES vs esophageal dysmotility. Discussed the case with Dr Gomez. Code(s): R13.10 - DYSPHAGIA, UNSPECIFIED Qualifiers: Qualified Code(s): R13.19 - Other dysphagia (2) Anemia Code(s): D64.9 - ANEMIA, UNSPECIFIED Qualifiers: Qualified Code(s): D61.810 - Antineoplastic chemotherapy induced pancytopenia ; T45.1X5A - Adverse effect of antineoplastic and immunosuppressive drugs, initial encounter; T45.1X5A - Adverse effect of antineoplastic and immunosuppressive drugs, initial encounter
[2017-05-03] MEDS: APIXABAN 5 MG TABLET PO SCH ×2 (11:15→21:58)
--- NOTE | 2017-05-03 12:28 | PN ---
Progress Note (short form) - Note Progress Note: Noted that he had a choking episode while trying to eat farina this AM. Denies shortness of breath or chest pain. Some dry cough but no wheezing reported after the event. Intake & Output 04/30/17 05/01/17 05/02/17 05/03/17 23:59 23:59 23:59 23:59 Intake Total 1725 1410 2800 300 Output Total 600 Balance 2127 750 9591 300 Last Vital Signs Temp Pulse Resp BP Pulse Ox 98 F 115 H 20 119/71 96 05/03/17 06:00 05/03/17 06:00 05/03/17 06:00 05/03/17 06:00 05/02/17 21:00 Active Medications Acetaminophen (Tylenol -) 650 mg PO Q6H PRN PRN Reason: FEVER OR PAIN Last Admin: 05/02/17 05:44 Dose: 650 mg Apixaban (Eliquis -) 5 mg PO BID [facility] Last Admin: 05/02/17 22:13 Dose: 5 mg Atorvastatin Calcium (Lipitor -) 40 mg PO HS [facility] Last Admin: 05/02/17 22:13 Dose: 40 mg Bacitracin (Bacitracin -) 1 applic TP BID [facility] Last Admin: 05/03/17 09:34 Dose: 1 applic Clotrimazole (Mycelex Mary's -) 10 mg PO 5XD [facility] Stop: 05/09/17 23:59 Gabapentin (Neurontin Oral Liquid -) 400 mg PO BID [facility] Last Admin: 05/02/17 22:15 Dose: 400 mg Insulin Aspart (Novolog Vial Sliding Scale -) 1 vial SQ TIDAC [facility] PRN Reason: Protocol Last Admin: 05/03/17 11:42 Dose: Not Given Loperamide HCl (Imodium Liquid -) 2 mg NGT BID PRN PRN Reason: DIARRHEA Last Admin: 05/02/17 10:43 Dose: 2 mg Metoprolol Tartrate (Lopressor -) 12.5 mg PO BID [facility] Last Admin: 05/02/17 22:14 Dose: 12.5 mg Mirtazapine (Remeron -) 15 mg PO HS [facility] Last Admin: 05/02/17 22:13 Dose: 15 mg Multi-Ingredient Ointment (Zinc Oxide) 1 applic TP DAILY [facility] Last Admin: 05/02/17 10:46 Dose: 1 applic Nystatin (Nystop Powder -) 1 applic TP DAILY [facility] Last Admin: 05/03/17 09:37 Dose: 1 applic Pantoprazole Sodium (Protonix Packets For Oral Suspension -) 40 mg NGT BID [facility] Last Admin: 05/02/17 22:13 Dose: 40 mg Potassium Phos/Sodium Phos (Phos-Nak Packet -) 1 packet GT TID [facility] Last Admin: 05/03/17 06:59 Dose: 1 packet Gen: NAD at rest Heart: RRR Lung: decreased breath sounds at the bases Abd: soft, nontender, (+) BS Ext: no edema Laboratory Results - last 24 hr 05/02/17 05/02/17 05/03/17 12:11 16:55 06:00 WBC 7.0 RBC 3.02 L Hgb 9.9 L Hct 30.6 L MCV 101.3 H MCH 32.7 MCHC 32.3 RDW 19.1 H Plt Count 103 L MPV 9.8 Neutrophils % No Result Required. Neutrophils % (Manual) 64.7 Band Neutrophils % 4.0 Lymphocytes % No Result Required. Lymphocytes % (Manual) 14.1 D Monocytes % (Manual) 8 Eosinophils % (Manual) 2.0 D Basophils % (Manual) 0.0 Myelocytes % (Man) 1 D Metamyelocytes 0 D Hypochromia 0 Platelet Estimate Decreased Polychromasia 0 Poikilocytosis 1+ Anisocytosis 1+ Microcytosis 1+ Macrocytosis 0 Sodium Potassium Chloride Carbon Dioxide Anion Gap BUN Creatinine Creat Clearance w eGFR POC Glucometer 150 133 Random Glucose Calcium Total Bilirubin AST ALT Alkaline Phosphatase Total Protein Albumin 05/03/17 05/03/17 05/03/17 06:00 06:58 11:40 WBC RBC Hgb Hct MCV MCH MCHC RDW Plt Count MPV Neutrophils % Neutrophils % (Manual) Band Neutrophils % Lymphocytes % Lymphocytes % (Manual) Monocytes % (Manual) Eosinophils % (Manual) Basophils % (Manual) Myelocytes % (Man) Metamyelocytes Hypochromia Platelet Estimate Polychromasia Poikilocytosis Anisocytosis Microcytosis Macrocytosis Sodium 141 Potassium 3.8 Chloride 105 Carbon Dioxide 25 Anion Gap 11 BUN 9 Creatinine 0.6 L Creat Clearance w eGFR > 60 POC Glucometer 114 137 Random Glucose 91 D Calcium 7.6 L Total Bilirubin 0.5 D AST 68 H D ALT 29 D Alkaline Phosphatase 145 H D Total Protein 5.1 L Albumin 1.8 L A/P Dysphagia Aspiration Pneumonia CAD LV Diastolic Dysfunction Paroxysmal Atrial Fibrillation Multiple Myeloma HTN DM Anemia - Noted esophagram ordered - Complete antibiotics - Aspiration precautions - rate controlled - Eliquis - monitor H/H Dr Patterson
[2017-05-03] MEDS: CLOTRIMAZOLE 10 MG TROCHE (FP) PO SCH ×3 (14:09→23:54)
--- NOTE | 2017-05-03 15:13 | PATH ---
Surgical Pathology Report Patient Name: CHANTELL CULP [facility]. Rec. #: [id number] /Age/Gender: 1945 (Age: 71) / M Account: [id number] Location: [facility] MED/SURG Taken: 04/30/2017 Received: 04/30/2017 Reported: 05/03/2017 Physicians: Eloy Mckeon M.D. Specimen(s) Received A: BX SECOND PORTION DUODENUM B: POLYP DUODENUM C: BX ANTRUM D: BX SCHATZKIS RING E: BX MID ESOPHAGUS Clinical History Preoperative diagnosis: Dysphagia Postoperative diagnosis: Schatzki's ring, duodenal polyps, hiatal hernia, esophageal stricture Final Diagnosis A. DUODENUM, SECOND PORTION, BIOPSY: DUODENAL MUCOSA WITHOUT SIGNIFICANT PATHOLOGIC FINDINGS. B. DUODENUM, POLYP, BIOPSY: MATURE FIBROADIPOSE TISSUE AND OVERLYING SMALL BOWEL MUCOSA SUGGESTIVE OF SUBMUCOSAL LIPOMA. C. STOMACH, ANTRUM, BIOPSY: GASTRIC ANTRAL MUCOSA WITH MILD CHRONIC GASTRITIS. IMMUNOHISTOCHEMICAL STAIN FOR H. PYLORI IS NEGATIVE. D. ESOPHAGUS, SCHATZI'S RING, BIOPSY: ESOPHAGEAL SQUAMOUS MUCOSA WITH CHANGES OF MILD TO MODERATE REFLUX ESOPHAGITIS. MUSCULARIS PROPRIA PRESENT. NO COLUMNAR COMPONENT, INTESTINAL METAPLASIA OR DYSPLASIA IDENTIFIED. E. MID ESOPHAGUS, BIOPSY: SQUAMOUS MUCOSA WITH VASCULAR CONGESTION AND CHANGES OF MILD REFLUX TYPE ESOPHAGITIS. NO EVIDENCE OF EOSINOPHILIC ESOPHAGITIS IDENTIFIED. MUSCULARIS PROPIA PRESENT. Comment: Findings discussed with Dr. Fuller. Electronically Signed Holly Ortega M.D. Gross Description A. Received in formalin, labeled "biopsy second portion of duodenum" are 3 contreras, irregular portions of soft tissue ranging from 0.2-0.3 cm. in greatest dimension. The specimens are submitted in toto in one cassette. B. Received in formalin, labeled "biopsy duodenal polyp" are 2 contreras, irregular portions of soft tissue measuring 0.3 and 0.5 cm. in greatest dimension. The specimens are submitted in toto in one cassette. C. Received in formalin, labeled "biopsy antrum" are 2 contreras, irregular portions of soft tissue measuring 0.2 and 0.9 cm. in greatest dimension. The specimens are submitted in toto in one cassette. D. Received in formalin, labeled "biopsy Schatzki's ring" are 6 contreras, irregular portions of soft tissue ranging from 0.3-0.7 cm. in greatest dimension. The specimens are submitted in toto in one cassette. E. Received in formalin, labeled "biopsy midesophagus" are 2 contreras, irregular portions of soft tissue averaging 0.3 cm. in greatest dimension. The specimens are submitted in toto in one cassette. 04/30/2017 [facility]04/30/2017
--- NOTE | 2017-05-03 15:36 | PN ---
Progress Note, [facility] [employer] - Note Progress Note: Medical events noted.Still with dysphagia/etiology unlear. Regurgitated [place]. Tolerates Liquids by mouth at times. PEG feedings onhold? HOB at 30% sleeping. Selected Entries 05/01/17 05/01/17 05/02/17 10:49 14:58 00:04 Breakfast NPO Lunch NPO Temperature 99 F 05/02/17 05/02/17 05/02/17 05:43 07:08 09:15 Breakfast Lunch Temperature 100.9 F H 98.4 F 98.4 F 05/02/17 05/02/17 05/02/17 09:49 14:54 18:44 Breakfast 0 Lunch 0 Temperature 98.7 F 98.8 F 05/02/17 05/03/17 05/03/17 22:11 02:00 06:00 Breakfast Lunch Temperature 98.3 F 98.6 F 98 F 05/03/17 05/03/17 05/03/17 09:55 10:00 15:06 Breakfast 0 Lunch 25% Temperature 98 F 98.1 F Coated mouth, r/o thrush? Trial of Mycelex Nocturnal PEG feedings to supplement PO? Elevate HOB after meals x 1 hour. OOB for meals. Small amounts throughout the day. Alternate puree with sips of liquid.
[2017-05-03] MEDS ORDERED: PT OWN MED DRAWER 7, Y5N ONE (21:50)
[2017-05-03] MEDS: ATORVASTATIN CA 40 MG TABLET (FP) PO SCH (21:58)
[2017-05-03] MEDS: MIRTAZAPINE 15 MG TABLET (FP) PO SCH (21:59)
[2017-05-04] MEDS: CLOTRIMAZOLE 10 MG TROCHE (FP) PO SCH ×5 (06:19→21:44)
[2017-05-04] MEDS: NAPH,MB-DB/K PH,MBDB POWDER PACKET GT SCH ×3 (06:20→21:46)
[2017-05-04] MEDS: INSULIN SLIDING SCALE (NOVOLOG) 1 VIAL SQ SCH ×3 (06:20→16:23)
[2017-05-04 07:54] LABS: HEMATOCRIT 30.9 % (35.4-49); MCH 32.5 pg (25.7-33.7); MCHC 32.3 g/dl (32.0-35.9); MEAN CELL VOLUME 100.9 fl (80-96); MEAN PLT VOLUME 9.4 fl (7.5-11.1); PLATELET COUNT 115 K/MM3 (134-434); RBC 3.07 M/mm3 (4.00-5.60); WHITE BLOOD COUNT 7.3 K/mm3 (4.0-10.0)
[2017-05-04 08:03] LABS: ALBUMIN 1.9 g/dl (3.4-5.0); ANION GAP 8 (8-16); BLOOD UREA NITROGEN 10 mg/dL (7-18); CALCIUM 7.5 mg/dL (8.5-10.1); CHLORIDE 108 mmol/L (98-107); CO2 26 mmol/L (21-32); CREATININE 0.5 mg/dL (0.7-1.3); GLUCOSE,RANDOM 95 mg/dL (74-106); MAGNESIUM 1.9 mg/dL (1.8-2.4); SGOT/AST 63 U/L (15-37); SGPT/ALT 32 U/L (12-78); SODIUM 142 mmol/L (136-145)
[2017-05-04 08:04] LABS: ALK PHOS 139 U/L (45-117); BILIRUBIN,TOTAL 0.6 mg/dL (0.2-1.0); TOT PROT 5.1 g/dl (6.4-8.2)
--- NOTE | 2017-05-04 08:43 | PN ---
Progress Note (short form) - Note Progress Note: comfortable gi f/u noted/ appreciated for eosophagogram today feeding on hold denies pain Vital Signs Temp 98.8 F 05/04/17 05:57 Pulse 113 H 05/04/17 05:57 Resp 20 05/04/17 05:57 BP 102/61 05/04/17 05:57 Pulse Ox 94 L 05/03/17 21:00 Intake & Output 05/03/17 05/03/17 05/04/17 11:59 23:59 11:59 Intake Total 300 Output Total 200 200 Balance 300 -200 -200 Intake: Oral 300 Output: Urine 200 200 Void 200 200 Other: Voiding Method Incontinent Incontinent # Unmeasured Voids Void 3 1 Bowel Movement Yes Yes: 1 No # Bowel Movements 2 Active Medications Acetaminophen (Tylenol -) 650 mg PO Q6H PRN PRN Reason: FEVER OR PAIN Last Admin: 05/02/17 05:44 Dose: 650 mg Apixaban (Eliquis -) 5 mg PO BID [facility] Last Admin: 05/03/17 21:58 Dose: 5 mg Atorvastatin Calcium (Lipitor -) 40 mg PO [facility] Last Admin: 05/03/17 21:58 Dose: 40 mg Bacitracin (Bacitracin -) 1 applic TP BID [facility] Last Admin: 05/03/17 21:57 Dose: 1 applic Clotrimazole (Mycelex Mary's -) 10 mg PO 5XD [facility] Stop: 05/09/17 23:59 Last Admin: 05/04/17 06:19 Dose: 10 mg Gabapentin (Neurontin Oral Liquid -) 400 mg PO BID [facility] Last Admin: 05/03/17 22:02 Dose: 400 mg Insulin Aspart (Novolog Vial Sliding Scale -) 1 vial SQ TIDAC [facility] PRN Reason: Protocol Last Admin: 05/04/17 06:20 Dose: Not Given Loperamide HCl (Imodium Liquid -) 2 mg NGT BID PRN PRN Reason: DIARRHEA Last Admin: 05/02/17 10:43 Dose: 2 mg Metoprolol Tartrate (Lopressor -) 12.5 mg PO BID [facility] Last Admin: 05/03/17 21:58 Dose: 12.5 mg Mirtazapine (Remeron -) 15 mg PO [facility] Last Admin: 05/03/17 21:59 Dose: 15 mg Multi-Ingredient Ointment (Zinc Oxide) 1 applic TP DAILY [facility] Last Admin: 05/03/17 10:15 Dose: 1 applic Nystatin (Nystop Powder -) 1 applic TP DAILY [facility] Last Admin: 05/03/17 09:37 Dose: 1 applic Pantoprazole Sodium (Protonix Packets For Oral Suspension -) 40 mg NGT BID [facility] Last Admin: 05/03/17 21:58 Dose: 40 mg Potassium Phos/Sodium Phos (Phos-Nak Packet -) 1 packet GT TID [facility] Last Admin: 05/04/17 06:20 Dose: Not Given CBC, BMP 05/04/17 06:00 Physical exam awake and comfortable. Lungs--clear cvs- s1, s2 rrr abd - soft/ non tender Status post PEG ext- no edema neuro- ao x3 ASSESSMENT/PLAN: Dysphagia GI Bleed pneumonia Acute renal failure- better--back to baseline hypernatremia--- poor appetite depression status post PEG Inflammatory neuropathy plan as above continue present care restart feeding if ok with gi will follow discussed with nursing staff also. Problem List - Problems (1) Anemia Code(s): D64.9 - ANEMIA, UNSPECIFIED Qualifiers: Bone marrow failure anemia type: pancytopenia, antineoplastic chemotherapy- induced (2) SOB (shortness of breath) Code(s): R06.02 - SHORTNESS OF BREATH (3) Atrial fibrillation Code(s): I48.91 - UNSPECIFIED ATRIAL FIBRILLATION Qualifiers: Atrial fibrillation type: paroxysmal Qualified Code(s): I48.0 - Paroxysmal atrial fibrillation (4) Multiple myeloma in remission Code(s): C90.01 - MULTIPLE MYELOMA IN REMISSION
--- NOTE | 2017-05-04 09:56 | PN ---
Progress Note (short form) - Note Progress Note: Chief Complaint: Events noted, notes reviewed, denies any chest pain or dyspnea History of Present Illness: Seen and examined. Events noted, notes reviewed, denies any chest pain or dyspnea Echocardiography dated 03/26/17 revealed normal LV size and function - Current Medication List Current Medications Acetaminophen (Tylenol -) 650 mg PO Q6H PRN PRN Reason: FEVER OR PAIN Last Admin: 05/02/17 05:44 Dose: 650 mg Apixaban (Eliquis -) 5 mg PO BID [facility] Last Admin: 05/03/17 21:58 Dose: 5 mg Atorvastatin Calcium (Lipitor -) 40 mg PO HS [facility] Last Admin: 05/03/17 21:58 Dose: 40 mg Bacitracin (Bacitracin -) 1 applic TP BID [facility] Last Admin: 05/03/17 21:57 Dose: 1 applic Clotrimazole (Mycelex Mary's -) 10 mg PO 5XD [facility] Stop: 05/09/17 23:59 Last Admin: 05/04/17 06:19 Dose: 10 mg Gabapentin (Neurontin Oral Liquid -) 400 mg PO BID [facility] Last Admin: 05/03/17 22:02 Dose: 400 mg Insulin Aspart (Novolog Vial Sliding Scale -) 1 vial SQ TIDAC [facility] PRN Reason: Protocol Last Admin: 05/04/17 06:20 Dose: Not Given Loperamide HCl (Imodium Liquid -) 2 mg NGT BID PRN PRN Reason: DIARRHEA Last Admin: 05/02/17 10:43 Dose: 2 mg Metoprolol Tartrate (Lopressor -) 12.5 mg PO BID [facility] Last Admin: 05/03/17 21:58 Dose: 12.5 mg Mirtazapine (Remeron -) 15 mg PO HS [facility] Last Admin: 05/03/17 21:59 Dose: 15 mg Multi-Ingredient Ointment (Zinc Oxide) 1 applic TP DAILY [facility] Last Admin: 05/03/17 10:15 Dose: 1 applic Nystatin (Nystop Powder -) 1 applic TP DAILY [facility] Last Admin: 05/03/17 09:37 Dose: 1 applic Pantoprazole Sodium (Protonix Packets For Oral Suspension -) 40 mg NGT BID [facility] Last Admin: 05/03/17 21:58 Dose: 40 mg Potassium Phos/Sodium Phos (Phos-Nak Packet -) 1 packet GT TID [facility] Last Admin: 05/04/17 06:20 Dose: Not Given - Objective Vital Signs: Last Vital Signs Temp Pulse Resp BP Pulse Ox 98.8 F 113 H 20 102/61 94 L 05/04/17 05:57 05/04/17 05:57 05/04/17 05:57 05/04/17 05:57 05/03/17 21:00 Intake & Output 05/01/17 05/02/17 05/03/17 05/04/17 23:59 23:59 23:59 23:59 Intake Total 1410 2800 300 Output Total 600 200 200 Balance 810 2800 100 -200 Constitutional: No Distress, Calm Neck: Supple Negative JVD No bruit Cardiovascular: S1 S2 Regular Rate Rhythm Respiratory: Diminished Breath Sounds at the Bases Gastrointestinal: Soft Benign Normal Bowel Sounds Ext: No Edema Labs: CBC, BMP 05/04/17 06:00 05/04/17 06:00 Hepatic Panel Total Bilirubin 0.6 mg/dL (0.2-1.0) 05/04/17 06:00 AST 63 U/L (15-37) H 05/04/17 06:00 ALT 32 U/L (12-78) 05/04/17 06:00 Alkaline Phosphatase 139 U/L (45-117) H 05/04/17 06:00 Albumin 1.9 g/dl (3.4-5.0) L 05/04/17 06:00 INR, PTT INR 1.17 (0.82-1.09) H 04/26/17 07:00 Assessment/Plan ASSESSMENT: 1. Dysphagia post PEG placement and Schatzki's ring dilatation 2. Symptomatic anemia post transfusion 3. Paroxysmal atrial fibrillation with periods of rapid ventricular response currently in sinus rhythm [id number] score of 3, on A/C therapy with NOAC's/ Eliquis 4. Coronary artery disease angina pectoris 5. LV diastolic dysfunction with chronic class 0-I NYHA classification LV failure, compensated/euvolemic 6. Hypertension 7. DM 8. Hypercholesterolemia 9. Thrombocytopenia 10. History of multiple myeloma post stem cell transplant 11. History of peripheral neuropathy PLAN: 1. Continue Eliquis with caution and close monitoring of CBC maintaining Hg equal or > 8.0 2. Continue Lopressor hemodynamics permitting 3. Continue Lipitor 4. Recommend the addition of ACEI or ARBS hemodynamics permitting unless it is absolutely contraindicated 5. Initiate PT Tank Munoz M.D.
[2017-05-04] MEDS ORDERED: PT OWN MED DRAWER 7, Y5N ONE (10:54)
[2017-05-04 11:30] LABS: PLATELET ESTIMATE DECREASED; TEAR DROP CELLS 1+
[2017-05-04] MEDS: PANTOPRAZOLE SOD 40 MG SUSPENSION PACKET NGT SCH ×2 (11:30→21:46)
[2017-05-04] MEDS: NYSTATIN POWDER 100,000 UNITS/GM - 15 GM TOPICAL POWDER TP SCH (11:32)
[2017-05-04] MEDS: BACITRACIN 15 GM TUBE TOPICAL OINTMENT TP SCH (11:32)
[2017-05-04] MEDS: ZINC OXIDE 20% TOPICAL OINTMENT 30 GM TUBE TP SCH (11:33)
[2017-05-04] MEDS: METOPROLOL TARTRATE 25 MG TABLET (FP) PO SCH ×2 (11:33→21:44)
[2017-05-04] MEDS: APIXABAN 5 MG TABLET PO SCH ×2 (11:34→21:44)
[2017-05-04] MEDS: GABAPENTIN 250 MG/5 ML ORAL SOLUTION, 470 ML BOTTLE PO SCH ×2 (11:34→21:45)
--- NOTE | 2017-05-04 15:18 | PN ---
Progress Note, [employer] - Note Progress Note: UGI noted. Tolerating small amounts of PO, mainly liquids eg soup and 1 tsp of pudding. Reports not liking the food and requesting a grilled cheese sandwich. Pt is not accepting sufficient nutrition by mouth. PEG feedings are on hold. Selected Entries 05/03/17 05/03/17 05/04/17 15:06 18:00 14:52 Lunch 25% 25% Supper 25% Suggest: Trial grilled cheese sandwich, 1 bite, followed by a sip of soup or a drink, and waiting to observe tolerance. Continue slowly, as tolerated. OOB for meals and 1-2 hours after meals. If PO continues to be limited, may benefit from nocturnal PEG feedings. Follow up by GI.
--- NOTE | 2017-05-04 16:19 | PN ---
Progress Note (short form) - Note Progress Note: PULMONARY VSS/AFEBRILE UPPER GI IMAGING REVIEWED CHART REVIEWED NONPRODUCTIVE COUGH PALE/ANICTERIC DIMINISHED B/L BREATH SOUNDS S1S2 OBESE/PEG NO EDEMA LABS/MEDS/NOTES/IMAGES/MICRO REVIEWED IMP PNEUMONIA/UTI/ASPIRATION MM S/P STEM CELL TRANSPLANT ANEMIA PEG LV DIASTOLIC DYSFUNCTION ASHD PAF ON ELIQUIS HTN NIIDM PERIPHERAL NEUROPATHY PLAN ENTERAL FEEDS VIA PEG UNTIL ADEQUATE CALORIC ORAL INTAKE CAN BE ACHIEVED Bonnie OJEDA MD
--- NOTE | 2017-05-04 18:29 | PN ---
Progress Note (short form) - Note Progress Note: NEUROLOGY FOLLOW-UP: Events reviewed, MRI reviewed. Patient examined. Patient believes his last IVIg may have been 4 or more months ago. Anti-acetylcholine receptor antibody studies still pending MRI of the brain unremarkable with mild atrophy and scattered microvascular changes. Now s/p PEG due to persistent dysphagia. EXAM: Mod dysarthria. Left Ptosis. Full EOM's Mild facial diplegia. Tongue weak in all directions. Decreased gag. Finger extensors and intrinsic hand muscle 4-/5. Ankle Dorsiflexion 4-/ 5 Areflexic Decreased vibration in the feet to mid-calf. 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 Rachel is displaying progressive weakness in the hands and feet since my last exam. SUGGEST: Await or resend Myasthenia studies. Update EMG/NCS Check when IVIg last administered and, if > 3 mos, administer IVIg now (70 gm/day x 2 days). Thank you very much, Shahriar Monaco MD
--- NOTE | 2017-05-04 19:39 | PN ---
Progress Note (short form) - Note Progress Note: GI NOte: Esophagram reveals no achalasia or fixed obstruction but there is distal esophageal spasm. Biopsies do not reveal eosinophilic esophagitis or malignancy. The barium tablet did pass. Izzy, his nurse informs me that he expressed desire for a grilled cheese sandwich today. I will resume G tube feeding tonight and try a soft diet in AM. Problem List - Problems (1) Dysphagia Code(s): R13.10 - DYSPHAGIA, UNSPECIFIED Qualifiers: Dysphagia type: other dysphagia Qualified Code(s): R13.19 - Other dysphagia (2) Anemia Code(s): D64.9 - ANEMIA, UNSPECIFIED Qualifiers: Bone marrow failure anemia type: pancytopenia, antineoplastic chemotherapy- induced
[2017-05-04] MEDS: MIRTAZAPINE 15 MG TABLET (FP) PO SCH (21:44)
[2017-05-04] MEDS: ATORVASTATIN CA 40 MG TABLET (FP) PO SCH (21:44)
[2017-05-05] MEDS: NAPH,MB-DB/K PH,MBDB POWDER PACKET GT SCH ×3 (06:38→22:15)
[2017-05-05] MEDS: INSULIN SLIDING SCALE (NOVOLOG) 1 VIAL SQ SCH ×3 (06:38→17:51)
[2017-05-05] MEDS: CLOTRIMAZOLE 10 MG TROCHE (FP) PO SCH ×5 (06:39→22:13)
--- NOTE | 2017-05-05 09:34 | PN ---
Progress Note (short form) - Note Progress Note: pt able to ate little today feeding held per staff due to diarrhea denies pain. Vital Signs Temp 98.3 F 05/05/17 05:45 Pulse 105 H 05/05/17 05:45 Resp 20 05/05/17 05:45 BP 104/66 05/05/17 05:45 Pulse Ox 96 05/04/17 21:00 Intake & Output 05/04/17 05/04/17 05/05/17 11:59 23:59 11:59 Intake Total 150 1650 Output Total 200 1200 Balance -200 150 450 Intake: Oral 150 900 Tube Feeding 500 Tube Irrigant 250 Output: Urine 200 1200 Void 200 1200 Other: Voiding Method Incontinent Incontinent # Unmeasured Voids Void 1 2 Bowel Movement No Yes Yes: loose # Bowel Movements 1 Active Medications Acetaminophen (Tylenol -) 650 mg PO Q6H PRN PRN Reason: FEVER OR PAIN Last Admin: 05/02/17 05:44 Dose: 650 mg Apixaban (Eliquis -) 5 mg PO BID [facility] Last Admin: 05/04/17 21:44 Dose: 5 mg Atorvastatin Calcium (Lipitor -) 40 mg PO [facility] Last Admin: 05/04/17 21:44 Dose: 40 mg Bacitracin (Bacitracin -) 1 applic TP BID [facility] Last Admin: 05/05/17 00:00 Dose: 1 applic Clotrimazole (Mycelex Mary's -) 10 mg PO 5XD [facility] Stop: 05/09/17 23:59 Last Admin: 05/05/17 06:39 Dose: 10 mg Gabapentin (Neurontin Oral Liquid -) 400 mg PO BID [facility] Last Admin: 05/04/17 21:45 Dose: 400 mg Insulin Aspart (Novolog Vial Sliding Scale -) 1 vial SQ TIDAC [facility] PRN Reason: Protocol Last Admin: 05/05/17 06:38 Dose: Not Given Loperamide HCl (Imodium Liquid -) 2 mg NGT BID PRN PRN Reason: DIARRHEA Last Admin: 05/02/17 10:43 Dose: 2 mg Metoprolol Tartrate (Lopressor -) 12.5 mg PO BID [facility] Last Admin: 05/04/17 21:44 Dose: 12.5 mg Mirtazapine (Remeron -) 15 mg PO [facility] Last Admin: 05/04/17 21:44 Dose: 15 mg Multi-Ingredient Ointment (Zinc Oxide) 1 applic TP DAILY [facility] Last Admin: 05/04/17 11:33 Dose: 1 applic Nystatin (Nystop Powder -) 1 applic TP DAILY [facility] Last Admin: 05/04/17 11:32 Dose: 1 applic Pantoprazole Sodium (Protonix Packets For Oral Suspension -) 40 mg NGT BID [facility] Last Admin: 05/04/17 21:46 Dose: 40 mg Potassium Phos/Sodium Phos (Phos-Nak Packet -) 1 packet GT TID [facility] Last Admin: 05/05/17 06:38 Dose: 1 packet CBC, BMP 05/04/17 06:00 05/04/17 06:00 Physical exam awake and comfortable. Lungs--clear cvs- s1, s2 rrr abd - soft/ non tender. bs + Status post PEG ext- no edema neuro- ao x3 ASSESSMENT/PLAN: Dysphagia GI Bleed pneumonia Acute renal failure- better--back to baseline hypernatremia--- poor appetite depression status post PEG Inflammatory neuropathy discussed need feeding restart at lower dose gi to follow neurology f/u noted will ask hematology to address issues will follow discussed with nursing staff also. Problem List - Problems (1) Anemia Code(s): D64.9 - ANEMIA, UNSPECIFIED Qualifiers: Bone marrow failure anemia type: pancytopenia, antineoplastic chemotherapy- induced (2) SOB (shortness of breath) Code(s): R06.02 - SHORTNESS OF BREATH (3) Atrial fibrillation Code(s): I48.91 - UNSPECIFIED ATRIAL FIBRILLATION Qualifiers: Atrial fibrillation type: paroxysmal Qualified Code(s): I48.0 - Paroxysmal atrial fibrillation (4) Multiple myeloma in remission Code(s): C90.01 - MULTIPLE MYELOMA IN REMISSION
[2017-05-05] MEDS ORDERED: PT OWN MED DRAWER 7, Y5N ONE ×3 (09:50→17:52)
[2017-05-05] MEDS: METOPROLOL TARTRATE 25 MG TABLET (FP) PO SCH ×2 (09:51→22:14)
[2017-05-05] MEDS: PANTOPRAZOLE SOD 40 MG SUSPENSION PACKET NGT SCH ×2 (09:52→22:15)
[2017-05-05] MEDS: GABAPENTIN 250 MG/5 ML ORAL SOLUTION, 470 ML BOTTLE PO SCH ×2 (09:56→22:14)
[2017-05-05] MEDS: APIXABAN 5 MG TABLET PO SCH ×2 (09:57→22:17)
[2017-05-05] MEDS: NYSTATIN POWDER 100,000 UNITS/GM - 15 GM TOPICAL POWDER TP SCH (10:08)
--- NOTE | 2017-05-05 10:36 | PN ---
Progress Note (short form) - Note Progress Note: Seen and examined ate some breakfast. wanted to go home. Events/consult notes noted O/E General: Lying flat in NAD Cor: RSR, No murmurs, No gallops Lungs: poor inspiratory effort ; diminished breath sounds Abd: Soft, Normal bowel sounds, No organomegaly; feeding tube Ext:No significant edema Skin: No rashes, Integument intact Last Vital Signs Temp Pulse Resp BP Pulse Ox 98.3 F 105 H 20 104/66 96 05/05/17 05:45 05/05/17 05:45 05/05/17 05:45 05/05/17 05:45 05/04/17 21:00 CBC, BMP 05/04/17 06:00 05/04/17 06:00 Current Medications Generic Name Dose Route Start Last Admin Trade Name Freq PRN Reason Stop Dose Admin Acetaminophen 650 mg 04/21/17 07:47 05/02/17 05:44 Tylenol - PO 650 mg Q6H PRN Administration FEVER OR PAIN Apixaban 5 mg 05/01/17 22:00 05/05/17 09:57 Eliquis - PO 5 mg BID JAMIE Administration Atorvastatin Calcium 40 mg 04/21/17 22:00 05/04/17 21:44 Lipitor - PO 40 mg HS JAMIE Administration Bacitracin 1 applic 04/26/17 22:00 05/05/17 00:00 Bacitracin - TP 1 applic BID JAMIE Administration Clotrimazole 10 mg 05/03/17 14:00 05/05/17 09:57 Mycelex Mary's - PO 05/09/17 23:59 10 mg 5XD JAMIE Administration Gabapentin 400 mg 04/27/17 11:27 05/05/17 09:56 Neurontin Oral Liquid - PO 400 mg BID JAMIE Administration Insulin Aspart 1 vial 04/21/17 11:00 05/05/17 06:38 Novolog Vial Sliding Scale - SQ Not Given TIDAC [facility] Protocol Loperamide HCl 2 mg 04/25/17 14:45 05/02/17 10:43 Imodium Liquid - NGT 2 mg BID PRN Administration DIARRHEA Metoprolol Tartrate 12.5 mg 04/19/17 13:31 05/05/17 09:51 Lopressor - PO 12.5 mg BID JAMIE Administration Mirtazapine 15 mg 04/23/17 22:00 05/04/17 21:44 Remeron - PO 15 mg HS JAMIE Administration Multi-Ingredient Ointment 1 applic 04/24/17 22:00 05/04/17 11:33 Zinc Oxide TP 1 applic DAILY JAMIE Administration Nystatin 1 applic 04/25/17 22:00 05/05/17 10:08 Nystop Powder - TP 1 applic DAILY JAMIE Administration Pantoprazole Sodium 40 mg 04/25/17 22:00 05/05/17 09:52 Protonix Packets For Oral Suspension - NGT 40 mg BID JAMIE Administration Potassium Phos/Sodium Phos 1 packet 04/28/17 15:45 05/05/17 06:38 Phos-Nak Packet - GT 1 packet TID JAMIE Administration Impression: Myeloma- not in remission Dysphagia S/P Schatzki ring disruption and esophageal dilatation Anemia Thrombocytopenia S/P PEG Neuropathy Glaucoma Plan: GI f/u noted Neuro f/u noted CBC improving, will continue to monitor ordered IVIG 70g/day x2 days ( last dose was 12/2016 ). Pt agreed . D1 today
--- NOTE | 2017-05-05 10:59 | PN ---
GI Progress Note Subjective: GI Note: Today Michael was able to eat farina. I explained that he has an esophageal A ring that can cause transient delays. A rings contain all 3 components of the esophageal wall and therefore do not respond to biopsies and dilations. I told him that he must chew well, select only soft, well moistened foods and to follow all swallows with liquids. I will switch to a chopped diet. I have told him that if he can prove that he can eat adequate amounts to sustain himself in the future that we can then consider removing the G tube. His albumin is down to 1.5. He is having diarrhea. Will screen for C diff. No barium was seen in the stool raising the possibility of paradoxical diarrhea. - Objective Vital Signs: Vital Signs Temperature 98.3 F 05/05/17 05:45 Pulse Rate 105 H 05/05/17 05:45 Respiratory Rate 20 05/05/17 05:45 Blood Pressure 104/66 05/05/17 05:45 O2 Sat by Pulse Oximetry (%) 96 05/04/17 21:00 Laboratory Tests 05/04/17 05/04/17 06:00 06:00 Hgb 10.0 L Albumin 1.9 L Constitutional: Calm ...Auscultate: Yes: Hypoactive Bowel Sounds ...Palpate: Yes: Soft, Other (nontender) Labs: CBC, BMP 05/04/17 06:00 05/04/17 06:00 INR, PTT INR 1.17 (0.82-1.09) H 04/26/17 07:00 Assessment/Plan Stool for WBCs, C diff and culture FUA to exclude barium impaction causing paradoxical diarrhea Problem List - Problems (1) Dysphagia Code(s): R13.10 - DYSPHAGIA, UNSPECIFIED Qualifiers: Dysphagia type: other dysphagia Qualified Code(s): R13.19 - Other dysphagia (2) Anemia Code(s): D64.9 - ANEMIA, UNSPECIFIED Qualifiers: Bone marrow failure anemia type: pancytopenia, antineoplastic chemotherapy- induced (3) Diarrhea Assessment/Plan: Will screen for infectious diarrhea but given h/o poor intake need to consider paradoxical diarrhea. Will get FUA to look for retained barium Code(s): R19.7 - DIARRHEA, UNSPECIFIED
--- NOTE | 2017-05-05 12:24 | PN ---
Progress Note, Physician History of Present Illness: Tried on chopped diet, tolerated cream of wheat, reports diarrhea, stool studies sent out. Afebrile. - Current Medication List Current Medications: Active Medications Acetaminophen (Tylenol -) 650 mg PO Q6H PRN PRN Reason: FEVER OR PAIN Last Admin: 05/02/17 05:44 Dose: 650 mg Apixaban (Eliquis -) 5 mg PO BID [facility] Last Admin: 05/05/17 09:57 Dose: 5 mg Atorvastatin Calcium (Lipitor -) 40 mg PO HS [facility] Last Admin: 05/04/17 21:44 Dose: 40 mg Bacitracin (Bacitracin -) 1 applic TP BID [facility] Last Admin: 05/05/17 00:00 Dose: 1 applic Clotrimazole (Mycelex Mary's -) 10 mg PO 5XD [facility] Stop: 05/09/17 23:59 Last Admin: 05/05/17 09:57 Dose: 10 mg Gabapentin (Neurontin Oral Liquid -) 400 mg PO BID [facility] Last Admin: 05/05/17 09:56 Dose: 400 mg Insulin Aspart (Novolog Vial Sliding Scale -) 1 vial SQ TIDAC [facility] PRN Reason: Protocol Last Admin: 05/05/17 06:38 Dose: Not Given Loperamide HCl (Imodium Liquid -) 2 mg NGT BID PRN PRN Reason: DIARRHEA Last Admin: 05/02/17 10:43 Dose: 2 mg Metoprolol Tartrate (Lopressor -) 12.5 mg PO BID [facility] Last Admin: 05/05/17 09:51 Dose: 12.5 mg Mirtazapine (Remeron -) 15 mg PO HS [facility] Last Admin: 05/04/17 21:44 Dose: 15 mg Multi-Ingredient Ointment (Zinc Oxide) 1 applic TP DAILY [facility] Last Admin: 05/04/17 11:33 Dose: 1 applic Nystatin (Nystop Powder -) 1 applic TP DAILY [facility] Last Admin: 05/05/17 10:08 Dose: 1 applic Pantoprazole Sodium (Protonix Packets For Oral Suspension -) 40 mg NGT BID [facility] Last Admin: 05/05/17 09:52 Dose: 40 mg Potassium Phos/Sodium Phos (Phos-Nak Packet -) 1 packet GT TID [facility] Last Admin: 05/05/17 06:38 Dose: 1 packet - Objective Vital Signs: Vital Signs Temperature 98.3 F 05/05/17 05:45 Pulse Rate 105 H 05/05/17 05:45 Respiratory Rate 20 05/05/17 05:45 Blood Pressure 104/66 05/05/17 05:45 O2 Sat by Pulse Oximetry (%) 96 05/04/17 21:00 Constitutional: Yes: No Distress, Calm Neck: Yes: Supple Cardiovascular: Yes: Regular Rate and Rhythm Respiratory: Yes: Regular, Diminished, On Nasal O2 Gastrointestinal: Yes: Normal Bowel Sounds, Soft Edema: No Labs: CBC, BMP 05/04/17 06:00 05/04/17 06:00 INR, PTT INR 1.17 (0.82-1.09) H 04/26/17 07:00 Problem List - Problems (1) Atrial fibrillation Code(s): I48.91 - UNSPECIFIED ATRIAL FIBRILLATION Qualifiers: Atrial fibrillation type: paroxysmal Qualified Code(s): I48.0 - Paroxysmal atrial fibrillation (2) Diastolic dysfunction Code(s): I51.9 - HEART DISEASE, UNSPECIFIED (3) Multiple myeloma in remission Code(s): C90.01 - MULTIPLE MYELOMA IN REMISSION (4) Anemia Code(s): D64.9 - ANEMIA, UNSPECIFIED Qualifiers: Bone marrow failure anemia type: pancytopenia, antineoplastic chemotherapy- induced (5) Status post insertion of percutaneous endoscopic gastrostomy (PEG) tube Code(s): Z93.1 - GASTROSTOMY STATUS (6) Dysphagia Code(s): R13.10 - DYSPHAGIA, UNSPECIFIED Qualifiers: Dysphagia type: esophageal phase Qualified Code(s): R13.10 - Dysphagia, unspecified (7) Schatzki's ring of distal esophagus Code(s): K22.2 - ESOPHAGEAL OBSTRUCTION Assessment/Plan Echocardiography dated 03/26/17 revealed normal LV size and function 1. Dysphagia post PEG placement and Schatzki's ring dilatation 2. Symptomatic anemia post transfusion 3. Paroxysmal atrial fibrillation with periods of rapid ventricular response currently in sinus rhythm [id number] score of 3, on A/C therapy with NOAC's/ Eliquis 4. Coronary artery disease angina pectoris 5. LV diastolic dysfunction with chronic class 0-I NYHA classification LV failure, compensated/euvolemic 6. Hypertension 7. DM 8. Hypercholesterolemia 9. Thrombocytopenia 10. History of multiple myeloma post stem cell transplant 11. History of peripheral neuropathy 12. Diarrhea r/o c. diff PLAN: 1. Continue Eliquis 5 bid with caution and close monitoring of CBC maintaining Hg equal or > 8.0 2. Continue Lopressor 12.5 bid hemodynamics permitting 3. Continue Lipitor 40 qhs 4. Start Diovan 40 qd hemodynamics permitting 5. Initiate PT, chopped diet, f/u stool studies
[2017-05-05] MEDS: BACITRACIN 15 GM TUBE TOPICAL OINTMENT TP SCH ×3 (12:53→23:46)
[2017-05-05] MEDS: ZINC OXIDE 20% TOPICAL OINTMENT 30 GM TUBE TP SCH (12:53)
--- NOTE | 2017-05-05 12:57 | PN ---
Progress Note (short form) - Note Progress Note: PULMONARY VSS/AFEBRILE UPPER GI IMAGING NOTED/GI NOTE REVIEWED LYING FLAT NOT SOB NONPRODUCTIVE COUGH CONTINUES PALE/ANICTERIC DIMINISHED B/L BREATH SOUNDS S1S2 OBESE/PEG NO EDEMA LABS/MEDS/NOTES/IMAGES/MICRO REVIEWED IMP PNEUMONIA/UTI/ASPIRATION RESOLVED MM S/P STEM CELL TRANSPLANT ANEMIA PEG LV DIASTOLIC DYSFUNCTION ASHD PAF ON ELIQUIS HTN NIIDM PERIPHERAL NEUROPATHY PLAN PULMONARY STATUS IS STABLE PLEASE CALL TOLU OJEDA MD
--- NOTE | 2017-05-05 13:24 | PN ---
Progress Note, [employer] - Note Progress Note: Selected Entries 05/04/17 05/04/17 05/04/17 02:00 05:57 09:00 Lunch Temperature 98.9 F 98.8 F 97.9 F 05/04/17 05/04/17 05/04/17 14:52 18:21 22:00 Lunch 25% Temperature 97.7 F 97.9 F 98.8 F 05/05/17 05:45 Lunch Temperature 98.3 F Laboratory Tests 05/04/17 06:00 WBC 7.3 Appreciate GI input. He is recommending chopped, moist foods. Pt tolerated hot cereal without regurgitation. Still with limited PO intake. Hopefully this will improve. Suggest: Dys Chopped, thin liquid, PO supplements Consider nocturnal PEG feeding to supplement. HOB elevated
[2017-05-05 14:14] LABS: ACETYLCHOL RECEP BIND < 0.03 nmol/L (0.00-0.24)
[2017-05-05] MEDS ORDERED: IMMUNE GLOBULIN (IgG) 10 GM VIAL IVPB SCH (16:00)
[2017-05-05] MEDS ORDERED: IMMUNE GLOB GAM CAPRYLATE IVPB SCH (16:30)
[2017-05-05] MEDS ORDERED: IMMUNE GLOBULIN IVPB SCH (16:30)
[2017-05-05] MEDS ORDERED: ACETAMINOPHEN 325 MG TABLET (FP) PO ONE (20:15)
[2017-05-05] MEDS ORDERED: diphenhydrAMINE HCL 25 MG CAPSULE (FP) PO ONE (21:30)
[2017-05-05] MEDS: ATORVASTATIN CA 40 MG TABLET (FP) PO SCH (22:15)
[2017-05-05] MEDS: MIRTAZAPINE 15 MG TABLET (FP) PO SCH (22:16)
[2017-05-05] MEDS: IMMUNE GLOBULIN IVPB SCH (23:00)
[2017-05-05] MEDS: IMMUNE GLOB GAM CAPRYLATE IVPB SCH (23:00)
[2017-05-06] MEDS: NAPH,MB-DB/K PH,MBDB POWDER PACKET GT SCH ×3 (06:19→22:18)
[2017-05-06] MEDS: CLOTRIMAZOLE 10 MG TROCHE (FP) PO SCH ×5 (06:20→22:18)
[2017-05-06] MEDS: INSULIN SLIDING SCALE (NOVOLOG) 1 VIAL SQ SCH ×3 (06:23→17:21)
--- NOTE | 2017-05-06 09:27 | PN ---
Progress Note (short form) - Note Progress Note: pt seen/ examined mood better eating better . tolerating feeding on lower dose no diarrhea has solid bm denies pain. Vital Signs Temp 98.6 F 05/06/17 06:23 Pulse 105 H 05/06/17 06:23 Resp 20 05/06/17 06:23 BP 103/73 05/06/17 06:23 Pulse Ox 96 05/05/17 20:39 Intake & Output 05/05/17 05/05/17 05/06/17 11:59 23:59 11:59 Intake Total 1650 1360 Output Total 1200 200 350 Balance 450 -200 1010 Intake: IVPB 700 Oral 900 Tube Feeding 500 360 Tube Irrigant 250 300 Output: Urine 1200 200 350 Void 1200 200 350 Other: Voiding Method Incontinent Incontinent Incontinent # Unmeasured Voids Void 2 Bowel Movement Yes: loose Yes # Bowel Movements 1 Active Medications Acetaminophen (Tylenol -) 650 mg PO Q6H PRN PRN Reason: FEVER OR PAIN Last Admin: 05/02/17 05:44 Dose: 650 mg Apixaban (Eliquis -) 5 mg PO BID [facility] Last Admin: 05/05/17 22:17 Dose: 5 mg Atorvastatin Calcium (Lipitor -) 40 mg PO HS [facility] Last Admin: 05/05/17 22:15 Dose: 40 mg Bacitracin (Bacitracin -) 1 applic TP BID [facility] Last Admin: 05/05/17 23:46 Dose: Not Given Clotrimazole (Mycelex Mary's -) 10 mg PO 5XD [facility] Stop: 05/09/17 23:59 Last Admin: 05/06/17 06:20 Dose: Not Given Gabapentin (Neurontin Oral Liquid -) 400 mg PO BID [facility] Last Admin: 05/05/17 22:14 Dose: 400 mg Immune Globulin/ Immune (Globulin) 700 mls @ 100 mls/hr IVPB Q24H [facility] Stop: 05/07/17 01:59 Last Admin: 05/05/17 23:00 Dose: 100 mls/hr Insulin Aspart (Novolog Vial Sliding Scale -) 1 vial SQ TIDAC JAMIE PRN Reason: Protocol Last Admin: 05/06/17 06:23 Dose: Not Given Loperamide HCl (Imodium Liquid -) 2 mg NGT BID PRN PRN Reason: DIARRHEA Last Admin: 05/02/17 10:43 Dose: 2 mg Metoprolol Tartrate (Lopressor -) 12.5 mg PO BID [facility] Last Admin: 05/05/17 22:14 Dose: 12.5 mg Mirtazapine (Remeron -) 15 mg PO HS [facility] Last Admin: 05/05/17 22:16 Dose: Not Given Multi-Ingredient Ointment (Zinc Oxide) 1 applic TP DAILY [facility] Last Admin: 05/05/17 12:53 Dose: 1 applic Nystatin (Nystop Powder -) 1 applic TP DAILY [facility] Last Admin: 05/05/17 10:08 Dose: 1 applic Pantoprazole Sodium (Protonix Packets For Oral Suspension -) 40 mg NGT BID [facility] Last Admin: 05/05/17 22:15 Dose: 40 mg Potassium Phos/Sodium Phos (Phos-Nak Packet -) 1 packet GT TID [facility] Last Admin: 05/06/17 06:19 Dose: 1 packet CBC, BMP 05/04/17 06:00 05/04/17 06:00 Physical exam awake and comfortable. Lungs--clear cvs- s1, s2 rrr abd - soft/ non tender. bs + Status post PEG ext- no edema neuro- ao x3 ASSESSMENT/PLAN: Dysphagia GI Bleed pneumonia Acute renal failure- better--back to baseline hypernatremia--- poor appetite depression status post PEG Inflammatory neuropathy better. continue present care. advance diet as tolerated day #2 of ivig discussed with Dr. Jc also today discussed with nursing staff also. Problem List - Problems (1) Anemia Code(s): D64.9 - ANEMIA, UNSPECIFIED Qualifiers: Bone marrow failure anemia type: pancytopenia, antineoplastic chemotherapy- induced (2) SOB (shortness of breath) Code(s): R06.02 - SHORTNESS OF BREATH (3) Atrial fibrillation Code(s): I48.91 - UNSPECIFIED ATRIAL FIBRILLATION Qualifiers: Atrial fibrillation type: paroxysmal Qualified Code(s): I48.0 - Paroxysmal atrial fibrillation (4) Multiple myeloma in remission Code(s): C90.01 - MULTIPLE MYELOMA IN REMISSION
--- NOTE | 2017-05-06 10:06 | PN ---
Progress Note (short form) - Note Progress Note: enies shortness of breath or chest pain. Some dry cough. No acute events overnight. Intake & Output 05/03/17 05/04/17 05/05/17 05/06/17 23:59 23:59 23:59 23:59 Intake Total 908 770 3231 1360 Output Total 273 588 7372 350 Balance 100 -50 250 1010 Last Vital Signs Temp Pulse Resp BP Pulse Ox 98.6 F 105 H 20 103/73 96 05/06/17 06:23 05/06/17 06:23 05/06/17 06:23 05/06/17 06:23 05/05/17 20:39 Active Medications Acetaminophen (Tylenol -) 650 mg PO Q6H PRN PRN Reason: FEVER OR PAIN Last Admin: 05/02/17 05:44 Dose: 650 mg Apixaban (Eliquis -) 5 mg PO BID [facility] Last Admin: 05/05/17 22:17 Dose: 5 mg Atorvastatin Calcium (Lipitor -) 40 mg PO HS [facility] Last Admin: 05/05/17 22:15 Dose: 40 mg Bacitracin (Bacitracin -) 1 applic TP BID [facility] Last Admin: 05/05/17 23:46 Dose: Not Given Clotrimazole (Mycelex Mary's -) 10 mg PO 5XD [facility] Stop: 05/09/17 23:59 Last Admin: 05/06/17 06:20 Dose: Not Given Gabapentin (Neurontin Oral Liquid -) 400 mg PO BID [facility] Last Admin: 05/05/17 22:14 Dose: 400 mg Immune Globulin/ Immune (Globulin) 700 mls @ 100 mls/hr IVPB Q24H [facility] Stop: 05/07/17 01:59 Last Admin: 05/05/17 23:00 Dose: 100 mls/hr Insulin Aspart (Novolog Vial Sliding Scale -) 1 vial SQ TIDAC [facility] PRN Reason: Protocol Last Admin: 05/06/17 06:23 Dose: Not Given Loperamide HCl (Imodium Liquid -) 2 mg NGT BID PRN PRN Reason: DIARRHEA Last Admin: 05/02/17 10:43 Dose: 2 mg Metoprolol Tartrate (Lopressor -) 12.5 mg PO BID [facility] Last Admin: 05/05/17 22:14 Dose: 12.5 mg Mirtazapine (Remeron -) 15 mg PO HS [facility] Last Admin: 05/05/17 22:16 Dose: Not Given Multi-Ingredient Ointment (Zinc Oxide) 1 applic TP DAILY [facility] Last Admin: 05/05/17 12:53 Dose: 1 applic Nystatin (Nystop Powder -) 1 applic TP DAILY [facility] Last Admin: 05/05/17 10:08 Dose: 1 applic Pantoprazole Sodium (Protonix Packets For Oral Suspension -) 40 mg NGT BID [facility] Last Admin: 05/05/17 22:15 Dose: 40 mg Potassium Phos/Sodium Phos (Phos-Nak Packet -) 1 packet GT TID [facility] Last Admin: 05/06/17 06:19 Dose: 1 packet Gen: NAD at rest Heart: RRR Lung: decreased breath sounds at the bases Abd: soft, nontender, (+) BS Ext: no edema Laboratory Results - last 24 hr 04/24/17 05/05/17 05/05/17 06:20 11:51 16:25 POC Glucometer 143 127 Acetylchol Rcpt Bind Ab < 0.03 05/05/17 05/06/17 22:08 06:21 POC Glucometer 115 114 Acetylchol Rcpt Bind Ab A/P Dysphagia Aspiration Pneumonia CAD LV Diastolic Dysfunction Paroxysmal Atrial Fibrillation Multiple Myeloma HTN DM Anemia - Noted IVIG being given x 2 days - Completed antibiotics - Aspiration precautions - rate controlled - Eliquis - monitor H/H - D/C planning Dr Patterson
--- NOTE | 2017-05-06 10:40 | PN ---
Progress Note, Physician History of Present Illness: Tolerating chopped diet, non-productive cough. Afebrile, diarrhea improved. - Current Medication List Current Medications: Active Medications Acetaminophen (Tylenol -) 650 mg PO Q6H PRN PRN Reason: FEVER OR PAIN Last Admin: 05/02/17 05:44 Dose: 650 mg Apixaban (Eliquis -) 5 mg PO BID [facility] Last Admin: 05/05/17 22:17 Dose: 5 mg Atorvastatin Calcium (Lipitor -) 40 mg PO HS [facility] Last Admin: 05/05/17 22:15 Dose: 40 mg Bacitracin (Bacitracin -) 1 applic TP BID [facility] Last Admin: 05/05/17 23:46 Dose: Not Given Clotrimazole (Mycelex Mary's -) 10 mg PO 5XD [facility] Stop: 05/09/17 23:59 Last Admin: 05/06/17 06:20 Dose: Not Given Gabapentin (Neurontin Oral Liquid -) 400 mg PO BID [facility] Last Admin: 05/05/17 22:14 Dose: 400 mg Immune Globulin/ Immune (Globulin) 700 mls @ 100 mls/hr IVPB Q24H [facility] Stop: 05/07/17 01:59 Last Admin: 05/05/17 23:00 Dose: 100 mls/hr Insulin Aspart (Novolog Vial Sliding Scale -) 1 vial SQ TIDAC [facility] PRN Reason: Protocol Last Admin: 05/06/17 06:23 Dose: Not Given Loperamide HCl (Imodium Liquid -) 2 mg NGT BID PRN PRN Reason: DIARRHEA Last Admin: 05/02/17 10:43 Dose: 2 mg Metoprolol Tartrate (Lopressor -) 12.5 mg PO BID [facility] Last Admin: 05/05/17 22:14 Dose: 12.5 mg Mirtazapine (Remeron -) 15 mg PO HS [facility] Last Admin: 05/05/17 22:16 Dose: Not Given Multi-Ingredient Ointment (Zinc Oxide) 1 applic TP DAILY [facility] Last Admin: 05/05/17 12:53 Dose: 1 applic Nystatin (Nystop Powder -) 1 applic TP DAILY [facility] Last Admin: 05/05/17 10:08 Dose: 1 applic Pantoprazole Sodium (Protonix Packets For Oral Suspension -) 40 mg NGT BID [facility] Last Admin: 05/05/17 22:15 Dose: 40 mg Potassium Phos/Sodium Phos (Phos-Nak Packet -) 1 packet GT TID JAMIE Last Admin: 05/06/17 06:19 Dose: 1 packet - Objective Vital Signs: Vital Signs Temperature 98.6 F 05/06/17 06:23 Pulse Rate 105 H 05/06/17 06:23 Respiratory Rate 20 05/06/17 06:23 Blood Pressure 103/73 05/06/17 06:23 O2 Sat by Pulse Oximetry (%) 96 05/05/17 20:39 Constitutional: Yes: No Distress, Calm Neck: Yes: Supple Cardiovascular: Yes: Regular Rate and Rhythm Respiratory: Yes: Regular, Diminished, On Nasal O2 Gastrointestinal: Yes: Normal Bowel Sounds, Soft, Other (Peg in place) Edema: No Labs: CBC, BMP 05/04/17 06:00 05/04/17 06:00 INR, PTT INR 1.17 (0.82-1.09) H 04/26/17 07:00 Problem List - Problems (1) Atrial fibrillation Code(s): I48.91 - UNSPECIFIED ATRIAL FIBRILLATION Qualifiers: Atrial fibrillation type: paroxysmal Qualified Code(s): I48.0 - Paroxysmal atrial fibrillation (2) Diastolic dysfunction Code(s): I51.9 - HEART DISEASE, UNSPECIFIED (3) Anemia Code(s): D64.9 - ANEMIA, UNSPECIFIED Qualifiers: Bone marrow failure anemia type: pancytopenia, antineoplastic chemotherapy- induced (4) Status post insertion of percutaneous endoscopic gastrostomy (PEG) tube Code(s): Z93.1 - GASTROSTOMY STATUS (5) Dysphagia Code(s): R13.10 - DYSPHAGIA, UNSPECIFIED Qualifiers: Dysphagia type: esophageal phase Qualified Code(s): R13.10 - Dysphagia, unspecified (6) Schatzki's ring of distal esophagus Code(s): K22.2 - ESOPHAGEAL OBSTRUCTION (7) Multiple myeloma Code(s): C90.00 - MULTIPLE MYELOMA NOT HAVING ACHIEVED REMISSION Qualifiers: Multiple myeloma remission status: not in remission Qualified Code(s): C90.00 - Multiple myeloma not having achieved remission Assessment/Plan Echocardiography dated 03/26/17 revealed normal LV size and function 1. Dysphagia post PEG placement and Schatzki's ring dilatation 2. Symptomatic anemia post transfusion 3. Paroxysmal atrial fibrillation with periods of rapid ventricular response currently in sinus rhythm [id number] score of 3, on A/C therapy with NOAC's/ Eliquis 4. Coronary artery disease angina pectoris 5. LV diastolic dysfunction with chronic class 0-I NYHA classification LV failure, compensated/euvolemic 6. Hypertension 7. DM 8. Hypercholesterolemia 9. Thrombocytopenia 10. 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 History of peripheral neuropathy 12. Diarrhea r/o c. diff PLAN: 1. Continue Eliquis 5 bid with caution and close monitoring of CBC maintaining Hg equal or > 8.0 2. Continue Lopressor 12.5 bid hemodynamics permitting 3. Continue Lipitor 40 qhs 4. Start Diovan 40 qd hemodynamics permitting, placed on IVIG for 2 days per heme-onc 5. Initiate PT, chopped diet, f/u stool studies
[2017-05-06] MEDS ORDERED: PT OWN MED DRAWER 7, Y5N ONE (11:32)
[2017-05-06] MEDS: METOPROLOL TARTRATE 25 MG TABLET (FP) PO SCH ×2 (12:13→22:17)
[2017-05-06] MEDS: PANTOPRAZOLE SOD 40 MG SUSPENSION PACKET NGT SCH ×2 (12:14→22:18)
[2017-05-06] MEDS: APIXABAN 5 MG TABLET PO SCH ×2 (12:14→22:16)
[2017-05-06] MEDS: GABAPENTIN 250 MG/5 ML ORAL SOLUTION, 470 ML BOTTLE PO SCH ×2 (12:15→22:18)
[2017-05-06] MEDS: NYSTATIN POWDER 100,000 UNITS/GM - 15 GM TOPICAL POWDER TP SCH (12:17)
[2017-05-06] MEDS: BACITRACIN 15 GM TUBE TOPICAL OINTMENT TP SCH ×2 (12:18→22:16)
[2017-05-06] MEDS: ZINC OXIDE 20% TOPICAL OINTMENT 30 GM TUBE TP SCH (12:18)
--- NOTE | 2017-05-06 14:42 | PN ---
Progress Note, STERILIZATION SPECIALIST - Note Progress Note: Selected Entries 05/05/17 05/05/17 05/06/17 15:08 19:46 00:15 Breakfast 25% Lunch 25% Supper 25% Temperature 99 F 05/06/17 05/06/17 06:23 12:28 Breakfast Lunch Supper Temperature 98.6 F 98 F Laboratory Tests 05/04/17 06:00 WBC 7.3 Pt receiving gt feedings and chopped moist foods/ thin liquids. Not eating a lot by mouth but tolerating it. RD f/u at [place] regarding coordination of PO and GT feedings.
--- NOTE | 2017-05-06 15:15 | PN ---
Progress Note, Physician Chief Complaint: ID Called as a repeat C diff shows antigen positive toxin negative - Current Medication List Current Medications: Active Medications Acetaminophen (Tylenol -) 650 mg PO Q6H PRN PRN Reason: FEVER OR PAIN Last Admin: 05/02/17 05:44 Dose: 650 mg Apixaban (Eliquis -) 5 mg PO BID [facility] Last Admin: 05/06/17 12:14 Dose: 5 mg Atorvastatin Calcium (Lipitor -) 40 mg PO HS [facility] Last Admin: 05/05/17 22:15 Dose: 40 mg Bacitracin (Bacitracin -) 1 applic TP BID [facility] Last Admin: 05/06/17 12:18 Dose: Not Given Clotrimazole (Mycelex Mary's -) 10 mg PO 5XD [facility] Stop: 05/09/17 23:59 Last Admin: 05/06/17 12:16 Dose: Not Given Gabapentin (Neurontin Oral Liquid -) 400 mg PO BID [facility] Last Admin: 05/06/17 12:15 Dose: 400 mg Immune Globulin/ Immune (Globulin) 700 mls @ 100 mls/hr IVPB Q24H [facility] Stop: 05/07/17 01:59 Last Admin: 05/05/17 23:00 Dose: 100 mls/hr Insulin Aspart (Novolog Vial Sliding Scale -) 1 vial SQ TIDAC [facility] PRN Reason: Protocol Last Admin: 05/06/17 12:15 Dose: Not Given Loperamide HCl (Imodium Liquid -) 2 mg NGT BID PRN PRN Reason: DIARRHEA Last Admin: 05/02/17 10:43 Dose: 2 mg Metoprolol Tartrate (Lopressor -) 12.5 mg PO BID [facility] Last Admin: 05/06/17 12:13 Dose: 12.5 mg Mirtazapine (Remeron -) 15 mg PO HS [facility] Last Admin: 05/05/17 22:16 Dose: Not Given Multi-Ingredient Ointment (Zinc Oxide) 1 applic TP DAILY [facility] Last Admin: 05/06/17 12:18 Dose: Not Given Nystatin (Nystop Powder -) 1 applic TP DAILY [facility] Last Admin: 05/06/17 12:17 Dose: 1 applic Pantoprazole Sodium (Protonix Packets For Oral Suspension -) 40 mg NGT BID [facility] Last Admin: 05/06/17 12:14 Dose: 40 mg Potassium Phos/Sodium Phos (Phos-Nak Packet -) 1 packet GT TID JAMIE Last Admin: 05/06/17 06:19 Dose: 1 packet - Objective Vital Signs: Vital Signs Temperature 98 F 05/06/17 12:28 Pulse Rate 115 H 05/06/17 12:28 Respiratory Rate 18 05/06/17 12:28 Blood Pressure 109/72 05/06/17 12:28 O2 Sat by Pulse Oximetry (%) 94 L 05/06/17 10:59 Constitutional: Yes: Well Nourished, No Distress Gastrointestinal: Yes: WNL, Normal Bowel Sounds, Soft, Distention. 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 - CORNEAL TRANSPLANT FAILURE (2) Dysphagia Code(s): R13.10 - DYSPHAGIA, UNSPECIFIED Qualifiers: Dysphagia type: other dysphagia Qualified Code(s): R13.19 - Other dysphagia (3) Atrial fibrillation Code(s): I48.91 - UNSPECIFIED ATRIAL FIBRILLATION Qualifiers: Atrial fibrillation type: paroxysmal Qualified Code(s): I48.0 - Paroxysmal atrial fibrillation (4) Pneumonia Code(s): J18.9 - PNEUMONIA, UNSPECIFIED ORGANISM Qualifiers: Pneumonia type: due to unspecified organism Assessment/Plan Laboratory Tests 05/04/17 05/04/17 06:00 06:00 WBC 7.3 RBC 3.07 L Hct 30.9 L Plt Count 115 L BUN 10 Creatinine 0.5 L Microbiology 05/05/17 09:33 Stool Clostridium difficile Antigen (RAVINDRA) - Final 05/05/17 09:33 Stool Clostridium difficile Toxin Assay - Final 05/01/17 09:20 Stool Gram Stain - Final Assessment Colonization with C difficile Doubt diarrhea secondary to this Plan Isolate for C diff No treatment for C diff ? Cholestyramine tessa Lassiter MD
[2017-05-06] MEDS ORDERED: DEXAMETHASONE SOD PHOSPHATE 20 MG/5 ML VIAL IVPB ONE ×2 (20:15→21:30)
[2017-05-06] MEDS ORDERED: ACETAMINOPHEN 650 MG/20.3 ML ORAL SOLUTION (CUPS) PO ONE (20:15)
[2017-05-06] MEDS ORDERED: DEXAMETHASONE SOD PHOSPHATE 10 MG/1 ML VIAL IVPB ONE (22:15)
[2017-05-06] MEDS ORDERED: DEXAMETHASONE SOD PHOSPHATE 4 MG/1 ML VIAL IVPB ONE (22:15)
[2017-05-06] MEDS: ATORVASTATIN CA 40 MG TABLET (FP) PO SCH (22:17)
[2017-05-06] MEDS: MIRTAZAPINE 15 MG TABLET (FP) PO SCH (22:19)
[2017-05-06] MEDS: IMMUNE GLOB GAM CAPRYLATE IVPB SCH (22:30)
[2017-05-06] MEDS: IMMUNE GLOBULIN IVPB SCH (22:30)
[2017-05-07] MEDS: INSULIN SLIDING SCALE (NOVOLOG) 1 VIAL SQ SCH ×3 (06:09→18:29)
[2017-05-07] MEDS: NAPH,MB-DB/K PH,MBDB POWDER PACKET GT SCH ×3 (06:09→22:09)
[2017-05-07] MEDS: CLOTRIMAZOLE 10 MG TROCHE (FP) PO SCH ×5 (06:09→22:10)
--- NOTE | 2017-05-07 09:21 | PN ---
Progress Note (short form) - Note Progress Note: patient awake and comfortable tolerating diet Nursing staff reports having diarrhea today Patient denies pain Vital Signs Temp 98.7 F 05/07/17 04:12 Pulse 91 H 05/07/17 04:12 Resp 20 05/07/17 04:12 BP 93/62 05/07/17 04:12 Pulse Ox 94 L 05/06/17 20:34 Intake & Output 05/06/17 05/06/17 05/07/17 11:59 23:59 11:59 Intake Total 1360 1750 Output Total 350 600 Balance 1010 1150 Intake: IV 700 SL 700 IVPB 700 100 Tube Feeding 360 600 Tube Irrigant 300 350 Output: Urine 350 600 Void 350 600 Other: Voiding Method Incontinent Incontinent # Unmeasured Voids Void 2 2 Bowel Movement Yes Yes # Bowel Movements 1 Active Medications Acetaminophen (Tylenol -) 650 mg PO Q6H PRN PRN Reason: FEVER OR PAIN Last Admin: 05/02/17 05:44 Dose: 650 mg Apixaban (Eliquis -) 5 mg PO BID [facility] Last Admin: 05/06/17 22:16 Dose: 5 mg Atorvastatin Calcium (Lipitor -) 40 mg PO [facility] Last Admin: 05/06/17 22:17 Dose: 40 mg Bacitracin (Bacitracin -) 1 applic TP BID [facility] Last Admin: 05/06/17 22:16 Dose: Not Given Clotrimazole (Mycelex Mary's -) 10 mg PO 5XD [facility] Stop: 05/09/17 23:59 Last Admin: 05/07/17 06:09 Dose: 10 mg Gabapentin (Neurontin Oral Liquid -) 400 mg PO BID [facility] Last Admin: 05/06/17 22:18 Dose: 400 mg Insulin Aspart (Novolog Vial Sliding Scale -) 1 vial SQ TIDAC [facility] PRN Reason: Protocol Last Admin: 05/07/17 06:09 Dose: 4 units Loperamide HCl (Imodium Liquid -) 2 mg NGT BID PRN PRN Reason: DIARRHEA Last Admin: 05/02/17 10:43 Dose: 2 mg Metoprolol Tartrate (Lopressor -) 12.5 mg PO BID [facility] Last Admin: 05/06/17 22:17 Dose: 12.5 mg Mirtazapine (Remeron -) 15 mg PO [facility] Last Admin: 05/06/17 22:19 Dose: Not Given Multi-Ingredient Ointment (Zinc Oxide) 1 applic TP DAILY [facility] Last Admin: 05/06/17 12:18 Dose: Not Given Nystatin (Nystop Powder -) 1 applic TP DAILY [facility] Last Admin: 05/06/17 12:17 Dose: 1 applic Pantoprazole Sodium (Protonix Packets For Oral Suspension -) 40 mg NGT BID [facility] Last Admin: 05/06/17 22:18 Dose: 40 mg Potassium Phos/Sodium Phos (Phos-Nak Packet -) 1 packet GT TID [facility] Last Admin: 05/07/17 06:09 Dose: 1 packet CBC, BMP 05/04/17 06:00 05/04/17 06:00 Microbiology 05/05/17 09:33 Clostridium difficile Antigen (RAVINDRA) - Final Stool Clostridium difficile Toxin Assay - Final Physical exam awake and comfortable. Lungs--clear cvs- s1, s2 rrr abd - soft/ non tender. bs + Status post PEG ext- no edema neuro- ao x3 ASSESSMENT/PLAN: Clinically stable Positive C. difficile antigen ID consult noted Abdomen is soft Diarrhea--due to feeding? GI to follow Follow-up labs today--ordered and will follow Discussed with nursing staff Problem List - Problems (1) Anemia Code(s): D64.9 - ANEMIA, UNSPECIFIED Qualifiers: Bone marrow failure anemia type: pancytopenia, antineoplastic chemotherapy- induced (2) SOB (shortness of breath) Code(s): R06.02 - SHORTNESS OF BREATH (3) Atrial fibrillation Code(s): I48.91 - UNSPECIFIED ATRIAL FIBRILLATION Qualifiers: Atrial fibrillation type: paroxysmal Qualified Code(s): I48.0 - Paroxysmal atrial fibrillation (4) Multiple myeloma in remission Code(s): C90.01 - MULTIPLE MYELOMA IN REMISSION
[2017-05-07 10:47] LABS: HEMATOCRIT 26.2 % (35.4-49); HEMOGLOBIN 8.3 GM/dL (11.7-16.9); MCH 32.7 pg (25.7-33.7); MCHC 31.8 g/dl (32.0-35.9); MEAN CELL VOLUME 102.7 fl (80-96); MEAN PLT VOLUME 9.4 fl (7.5-11.1); PLATELET COUNT 119 K/MM3 (134-434); RBC 2.55 M/mm3 (4.00-5.60); RDW 18.7 % (11.9-15.9); WHITE BLOOD COUNT 3.1 K/mm3 (4.0-10.0)
[2017-05-07 10:57] LABS: ALBUMIN 1.7 g/dl (3.4-5.0); ANION GAP 8 (8-16); BILIRUBIN,TOTAL 0.2 mg/dL (0.2-1.0); BLOOD UREA NITROGEN 17 mg/dL (7-18); CALCIUM 7.5 mg/dL (8.5-10.1); CHLORIDE 109 mmol/L (98-107); CO2 23 mmol/L (21-32); CREATININE 0.7 mg/dL (0.7-1.3); GLUCOSE,RANDOM 241 mg/dL (74-106); SGPT/ALT 53 U/L (12-78); SODIUM 140 mmol/L (136-145); TOT PROT 7.8 g/dl (6.4-8.2)
[2017-05-07 10:58] LABS: ALK PHOS 126 U/L (45-117)
[2017-05-07 11:00] LABS: POTASSIUM 4.6 mmol/L (3.5-5.1); SGOT/AST 134 U/L (15-37)
[2017-05-07] MEDS: METOPROLOL TARTRATE 25 MG TABLET (FP) PO SCH ×2 (11:00→22:22)
[2017-05-07] MEDS: APIXABAN 5 MG TABLET PO SCH ×2 (11:00→22:10)
[2017-05-07] MEDS: PANTOPRAZOLE SOD 40 MG SUSPENSION PACKET NGT SCH ×2 (11:00→22:09)
[2017-05-07] MEDS: GABAPENTIN 250 MG/5 ML ORAL SOLUTION, 470 ML BOTTLE PO SCH ×2 (11:00→22:13)
[2017-05-07] MEDS: ZINC OXIDE 20% TOPICAL OINTMENT 30 GM TUBE TP SCH (11:00)
[2017-05-07] MEDS: BACITRACIN 15 GM TUBE TOPICAL OINTMENT TP SCH ×2 (11:00→22:11)
[2017-05-07] MEDS ORDERED: PT OWN MED DRAWER 7, Y5N ONE ×3 (11:14→21:44)
--- NOTE | 2017-05-07 11:47 | PN ---
Progress Note (short form) - Note Progress Note: PULMONARY VSS/AFEBRILE LYING FLAT NOT SOB NONPRODUCTIVE COUGH CONTINUES PALE/ANICTERIC DIMINISHED B/L BREATH SOUNDS S1S2 OBESE/PEG NO EDEMA LABS/MEDS/NOTES/IMAGES/MICRO REVIEWED IMP C. DIFF ANTIGEN POSITIVE PNEUMONIA/UTI/ASPIRATION RESOLVED MM S/P STEM CELL TRANSPLANT ANEMIA PEG LV DIASTOLIC DYSFUNCTION ASHD PAF ON ELIQUIS HTN NIIDM PERIPHERAL NEUROPATHY PLAN PULMONARY STATUS IS STABLE PLEASE CALL TOLU OJEDA MD
--- NOTE | 2017-05-07 11:59 | PN ---
Progress Note, Physician History of Present Illness: Tolerating chopped diet, non-productive cough. Afebrile, diarrhea improved. - Current Medication List Current Medications: Active Medications Acetaminophen (Tylenol -) 650 mg PO Q6H PRN PRN Reason: FEVER OR PAIN Last Admin: 05/02/17 05:44 Dose: 650 mg Apixaban (Eliquis -) 5 mg PO BID [facility] Last Admin: 05/06/17 22:16 Dose: 5 mg Atorvastatin Calcium (Lipitor -) 40 mg PO HS [facility] Last Admin: 05/06/17 22:17 Dose: 40 mg Bacitracin (Bacitracin -) 1 applic TP BID [facility] Last Admin: 05/06/17 22:16 Dose: Not Given Clotrimazole (Mycelex Mary's -) 10 mg PO 5XD [facility] Stop: 05/09/17 23:59 Last Admin: 05/07/17 06:09 Dose: 10 mg Gabapentin (Neurontin Oral Liquid -) 400 mg PO BID [facility] Last Admin: 05/06/17 22:18 Dose: 400 mg Insulin Aspart (Novolog Vial Sliding Scale -) 1 vial SQ TIDAC [facility] PRN Reason: Protocol Last Admin: 05/07/17 06:09 Dose: 4 units Loperamide HCl (Imodium Liquid -) 2 mg NGT BID PRN PRN Reason: DIARRHEA Last Admin: 05/02/17 10:43 Dose: 2 mg Metoprolol Tartrate (Lopressor -) 12.5 mg PO BID [facility] Last Admin: 05/06/17 22:17 Dose: 12.5 mg Mirtazapine (Remeron -) 15 mg PO HS [facility] Last Admin: 05/06/17 22:19 Dose: Not Given Multi-Ingredient Ointment (Zinc Oxide) 1 applic TP DAILY [facility] Last Admin: 05/06/17 12:18 Dose: Not Given Nystatin (Nystop Powder -) 1 applic TP DAILY [facility] Last Admin: 05/06/17 12:17 Dose: 1 applic Pantoprazole Sodium (Protonix Packets For Oral Suspension -) 40 mg NGT BID [facility] Last Admin: 05/06/17 22:18 Dose: 40 mg Potassium Phos/Sodium Phos (Phos-Nak Packet -) 1 packet GT TID [facility] Last Admin: 05/07/17 06:09 Dose: 1 packet - Objective Vital Signs: Vital Signs Temperature 98.1 F 05/07/17 08:00 Pulse Rate 98 H 05/07/17 08:00 Respiratory Rate 18 05/07/17 08:00 Blood Pressure 113/58 05/07/17 08:00 O2 Sat by Pulse Oximetry (%) 94 L 05/07/17 09:00 Constitutional: Yes: No Distress, Calm Neck: Yes: Supple Cardiovascular: Yes: Regular Rate and Rhythm Respiratory: Yes: Regular, Diminished, On Nasal O2 Gastrointestinal: Yes: Normal Bowel Sounds, Soft, Other (PEG tube in place) Edema: No Labs: CBC, BMP 05/07/17 10:25 05/07/17 10:25 INR, PTT INR 1.17 (0.82-1.09) H 04/26/17 07:00 Problem List - Problems (1) Atrial fibrillation Code(s): I48.91 - UNSPECIFIED ATRIAL FIBRILLATION Qualifiers: Atrial fibrillation type: paroxysmal Qualified Code(s): I48.0 - Paroxysmal atrial fibrillation (2) Diastolic dysfunction Code(s): I51.9 - HEART DISEASE, UNSPECIFIED (3) Anemia Code(s): D64.9 - ANEMIA, UNSPECIFIED Qualifiers: Bone marrow failure anemia type: pancytopenia, antineoplastic chemotherapy- induced (4) Status post insertion of percutaneous endoscopic gastrostomy (PEG) tube Code(s): Z93.1 - GASTROSTOMY STATUS (5) Dysphagia Code(s): R13.10 - DYSPHAGIA, UNSPECIFIED Qualifiers: Dysphagia type: esophageal phase Qualified Code(s): R13.10 - Dysphagia, unspecified (6) Schatzki's ring of distal esophagus Code(s): K22.2 - ESOPHAGEAL OBSTRUCTION (7) Multiple myeloma Code(s): C90.00 - MULTIPLE MYELOMA NOT HAVING ACHIEVED REMISSION Qualifiers: Multiple myeloma remission status: not in remission Qualified Code(s): C90.00 - Multiple myeloma not having achieved remission Assessment/Plan Echocardiography dated 03/26/17 revealed normal LV size and function 1. Dysphagia post PEG placement and Schatzki's ring dilatation 2. Symptomatic anemia post transfusion 3. Paroxysmal atrial fibrillation with periods of rapid ventricular response currently in sinus rhythm [id number] score of 3, on A/C therapy with NOAC's/ Eliquis 4. Coronary artery disease angina pectoris 5. LV diastolic dysfunction with chronic class 0-I NYHA classification LV failure, compensated/euvolemic 6. Hypertension 7. DM 8. Hypercholesterolemia 9. Thrombocytopenia 10. 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 History of peripheral neuropathy 12. Diarrhea with + c. diff Ag PLAN: 1. Continue Eliquis 5 bid with caution and close monitoring of CBC maintaining Hg equal or > 8.0 2. Continue Lopressor 12.5 bid hemodynamics permitting 3. Continue Lipitor 40 qhs 4. Start Diovan 40 qd hemodynamics permitting, post 2 days IVIG per heme-onc 5. Initiate PT->SNF, chopped diet
[2017-05-07] MEDS: NYSTATIN POWDER 100,000 UNITS/GM - 15 GM TOPICAL POWDER TP SCH (12:26)
[2017-05-07 12:49] LABS: ANISOCYTOSIS 1+; MACROCYTOSIS 1+; PLATELET ESTIMATE DECREASED
--- NOTE | 2017-05-07 15:10 | PN ---
Progress Note, ADMITTING CLERK - Note Progress Note: Selected Entries 05/06/17 05/06/17 05/06/17 00:15 06:23 12:28 Breakfast Temperature 99 F 98.6 F 98 F 05/06/17 05/06/17 05/06/17 15:58 19:12 22:00 Breakfast Temperature 99.6 F 99.3 F 100 F H 05/07/17 05/07/17 05/07/17 02:00 04:12 08:00 Breakfast Temperature 99 F 98.7 F 98.1 F 05/07/17 11:17 Breakfast 50% Temperature Laboratory Tests 05/07/17 10:25 WBC 3.1 L D Tolerated soup and yogurt. Receiving PEG feedings. PO intake is increasing slowly. No longer vomiting. Case reviewed with GI, for possible appetite stimulant?
--- NOTE | 2017-05-07 16:30 | PN ---
GI Progress Note Subjective: GI NOte: No longer vomiting but not eating vigorously. When questioned he responds that he is not depressed and that he will eat if he got " good food". His will bring in some favorites. - Objective Vital Signs: Vital Signs Temperature 98.2 F 05/07/17 15:40 Pulse Rate 60 05/07/17 15:40 Respiratory Rate 20 05/07/17 15:40 Blood Pressure 99/60 05/07/17 15:40 O2 Sat by Pulse Oximetry (%) 94 L 05/07/17 09:00 Constitutional: No Distress ...Auscultate: Yes: Normoactive Bowel Sounds ...Palpate: Yes: Soft, Other (nontender) Labs: CBC, BMP 05/07/17 10:25 05/07/17 10:25 INR, PTT INR 1.17 (0.82-1.09) H 04/26/17 07:00 Problem List - Problems (1) Dysphagia Assessment/Plan: Kristian is able to swallow if he eats carefully. Encouraged to try more. Does not want antidepressant or marinol. Not eating enough to consider curtailing GT feedings. Code(s): R13.10 - DYSPHAGIA, UNSPECIFIED Qualifiers: Dysphagia type: other dysphagia Qualified Code(s): R13.19 - Other dysphagia (2) Anemia Code(s): D64.9 - ANEMIA, UNSPECIFIED Qualifiers: Bone marrow failure anemia type: pancytopenia, antineoplastic chemotherapy- induced (3) Diarrhea Code(s): R19.7 - DIARRHEA, UNSPECIFIED
--- NOTE | 2017-05-07 18:34 | PN ---
Progress Note (short form) - Note Progress Note: NEUROLOGY FOLLOW-UP: Events reviewed, Patient examined . Discussed with and son at the bedside. Now s/p IVIg 70 gm yesterday and today. Patient and family note improvement in speech and swallowing. Pt is tolerating pureed PO without difficulty today. Exam: Hand strength and ankle dorsiflexion are moderately improved (4/5 on the left, 4+/5 on the right). 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 Improving now after IVIg. PlaN: For in patient rehab. Neuro F/u as out patient. Follow progress after IVIg. Will need regular treatment (140 gm) every three months if not more frequently depending on the length of his clinical response. Thank you very much, Shahriar Monaco MD
[2017-05-07] MEDS: ATORVASTATIN CA 40 MG TABLET (FP) PO SCH (22:10)
--- NOTE | 2017-05-07 22:10 | PN ---
Progress Note (short form) - Note Progress Note: Patient seen and examined clinically improved Last Vital Signs Temp Pulse Resp BP Pulse Ox 97.5 F L 82 18 109/66 96 05/08/17 05:37 05/08/17 05:37 05/08/17 05:37 05/08/17 05:37 05/07/17 21:00 Cor: RSR, No murmurs, No gallops Lungs: decreased at bases Abd: Soft, Normal bowel sounds, No organomegaly Ext:edema Abnormal Lab Results 05/07/17 05/07/17 05/07/17 10:25 10:25 10:25 WBC 3.1 L D RBC 2.55 L Hgb 8.3 L D Hct 26.2 L D MCV 102.7 H MCHC 31.8 L RDW 18.7 H Plt Count 119 L Monocytes % (Manual) 3 L ESR 115 H Chloride 109 H Random Glucose 241 H D Calcium 7.5 L AST 134 H D Alkaline Phosphatase 126 H Albumin 1.7 L 05/08/17 06:10 WBC RBC 2.53 L Hgb 8.3 L Hct 25.8 L MCV 101.9 H MCHC RDW 18.5 H Plt Count 103 L Monocytes % (Manual) ESR Chloride Random Glucose Calcium AST Alkaline Phosphatase Albumin Active Medications Generic Name Dose Route Start Last Admin Trade Name Freq PRN Reason Stop Dose Admin Acetaminophen 650 mg 04/21/17 07:47 05/02/17 05:44 Tylenol - PO 650 mg Q6H PRN Administration FEVER OR PAIN Apixaban 5 mg 05/01/17 22:00 05/07/17 22:10 Eliquis - PO 5 mg BID JAMIE Administration Atorvastatin Calcium 40 mg 04/21/17 22:00 05/07/17 22:10 Lipitor - PO 40 mg HS JAMIE Administration Bacitracin 1 applic 04/26/17 22:00 05/07/17 22:11 Bacitracin - TP Not Given BID JAMIE Clotrimazole 10 mg 05/03/17 14:00 05/08/17 06:46 Mycelex Mary's - PO 05/09/17 23:59 10 mg 5XD JAMIE Administration Gabapentin 400 mg 04/27/17 11:27 05/07/17 22:13 Neurontin Oral Liquid - PO 400 mg BID JAMIE Administration Insulin Aspart 1 vial 04/21/17 11:00 05/08/17 06:46 Novolog Vial Sliding Scale - SQ 4 units TIDAC JAMIE Administration Protocol Loperamide HCl 2 mg 04/25/17 14:45 05/02/17 10:43 Imodium Liquid - NGT 2 mg BID PRN Administration DIARRHEA Metoprolol Tartrate 12.5 mg 04/19/17 13:31 05/07/17 22:22 Lopressor - PO 12.5 mg BID JAMIE Administration Mirtazapine 15 mg 04/23/17 22:00 05/07/17 22:11 Remeron - PO 15 mg HS [facility]IE Administration Multi-Ingredient Ointment 1 applic 04/24/17 22:00 05/07/17 11:00 Zinc Oxide TP 1 applic DAILY [facility] Administration Nystatin 1 applic 04/25/17 22:00 05/07/17 12:26 Nystop Powder - TP Not Given DAILY [facility] Pantoprazole Sodium 40 mg 04/25/17 22:00 05/07/17 22:09 Protonix Packets For Oral Suspension - NGT 40 mg BID [facility] Administration Potassium Phos/Sodium Phos 1 packet 04/28/17 15:45 05/08/17 06:46 Phos-Nak Packet - GT 1 packet TID J[facility] Administration A/P 71 y/o patient with myeloma, on maintenance dick/dex, now with low grade fevers, aspiration myeloma protein stdies show remission neuro consult appreciated -- 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 s/p IVIG. To get IVIG Q 3months or more frequently depending on clinical status
[2017-05-07] MEDS: MIRTAZAPINE 15 MG TABLET (FP) PO SCH (22:11)
[2017-05-08] MEDS: NAPH,MB-DB/K PH,MBDB POWDER PACKET GT SCH ×3 (06:46→22:30)
[2017-05-08] MEDS: INSULIN SLIDING SCALE (NOVOLOG) 1 VIAL SQ SCH ×3 (06:46→17:06)
[2017-05-08] MEDS: CLOTRIMAZOLE 10 MG TROCHE (FP) PO SCH ×5 (06:46→22:28)
[2017-05-08 07:29] LABS: BASO % 0.4 % (0-2.0); HEMATOCRIT 25.8 % (35.4-49); HEMOGLOBIN 8.3 GM/dL (11.7-16.9); LYMPH % 10.2 % (8-40); MCH 32.7 pg (25.7-33.7); MCHC 32.1 g/dl (32.0-35.9); MEAN CELL VOLUME 101.9 fl (80-96); MEAN PLT VOLUME 9.2 fl (7.5-11.1); MONO % 9.6 % (3.8-10.2); NEUT % 79.8 % (42.8-82.8); PLATELET COUNT 103 K/MM3 (134-434); RBC 2.53 M/mm3 (4.00-5.60); RDW 18.5 % (11.9-15.9); WHITE BLOOD COUNT 5.9 K/mm3 (4.0-10.0)
[2017-05-08 08:28] LABS: CALCIUM 7.3 mg/dL (8.5-10.1); CHLORIDE 111 mmol/L (98-107); SODIUM 143 mmol/L (136-145)
[2017-05-08 08:34] LABS: ALBUMIN 1.8 g/dl (3.4-5.0); ALK PHOS 109 U/L (45-117); ANION GAP 6 (8-16); BILIRUBIN,TOTAL 0.2 mg/dL (0.2-1.0); BLOOD UREA NITROGEN 17 mg/dL (7-18); CO2 26 mmol/L (21-32); CREATININE 0.7 mg/dL (0.7-1.3); GLUCOSE,RANDOM 199 mg/dL (74-106); SGOT/AST 69 U/L (15-37); SGPT/ALT 45 U/L (12-78); TOT PROT 6.9 g/dl (6.4-8.2)
--- NOTE | 2017-05-08 10:26 | PN ---
Progress Note (short form) - Note Progress Note: comfortable feels better afebrile tolerating diet better having soft stools but no diarrhea pe nursing staff Vital Signs Temp 97.5 F L 05/08/17 05:37 Pulse 82 05/08/17 05:37 Resp 18 05/08/17 05:37 BP 109/66 05/08/17 05:37 Pulse Ox 96 05/07/17 21:00 Intake & Output 05/07/17 05/07/17 05/08/17 11:59 23:59 11:59 Intake Total 1870 150 Output Total 600 Balance 1270 150 Intake: IV 700 SL 700 IVPB 100 Oral 120 150 Tube Feeding 600 Tube Irrigant 350 Output: Urine 600 Void 600 Other: Voiding Method Diaper Diaper Incontinent # Unmeasured Voids Void 2 3 Bowel Movement Yes: 1 Yes: 1 Yes: 1 # Bowel Movements 1 Active Medications Acetaminophen (Tylenol -) 650 mg PO Q6H PRN PRN Reason: FEVER OR PAIN Last Admin: 05/02/17 05:44 Dose: 650 mg Apixaban (Eliquis -) 5 mg PO BID [facility] Last Admin: 05/07/17 22:10 Dose: 5 mg Atorvastatin Calcium (Lipitor -) 40 mg PO [facility] Last Admin: 05/07/17 22:10 Dose: 40 mg Bacitracin (Bacitracin -) 1 applic TP BID [facility] Last Admin: 05/07/17 22:11 Dose: Not Given Clotrimazole (Mycelex Mary's -) 10 mg PO 5XD [facility] Stop: 05/09/17 23:59 Last Admin: 05/08/17 06:46 Dose: 10 mg Gabapentin (Neurontin Oral Liquid -) 400 mg PO BID [facility] Last Admin: 05/07/17 22:13 Dose: 400 mg Insulin Aspart (Novolog Vial Sliding Scale -) 1 vial SQ TIDAC [facility] PRN Reason: Protocol Last Admin: 05/08/17 06:46 Dose: 4 units Loperamide HCl (Imodium Liquid -) 2 mg NGT BID PRN PRN Reason: DIARRHEA Last Admin: 05/02/17 10:43 Dose: 2 mg Metoprolol Tartrate (Lopressor -) 12.5 mg PO BID [facility] Last Admin: 05/07/17 22:22 Dose: 12.5 mg Mirtazapine (Remeron -) 15 mg PO [facility] Last Admin: 05/07/17 22:11 Dose: 15 mg Multi-Ingredient Ointment (Zinc Oxide) 1 applic TP DAILY [facility] Last Admin: 05/07/17 11:00 Dose: 1 applic Nystatin (Nystop Powder -) 1 applic TP DAILY [facility] Last Admin: 05/07/17 12:26 Dose: Not Given Pantoprazole Sodium (Protonix Packets For Oral Suspension -) 40 mg NGT BID [facility] Last Admin: 05/07/17 22:09 Dose: 40 mg Potassium Phos/Sodium Phos (Phos-Nak Packet -) 1 packet GT TID [facility] Last Admin: 05/08/17 06:46 Dose: 1 packet CBC, BMP 05/08/17 06:10 05/08/17 06:10 Physical exam awake and comfortable. Lungs--clear cvs- s1, s2 rrr abd - soft/ non tender. bs + Status post PEG ext- no edema neuro- ao x3 ASSESSMENT/PLAN: Clinically stable better off abx advance diet as tolerated daily oob - chair monitor today f/u cbc transfuse prn d/c planning Problem List - Problems (1) Anemia Code(s): D64.9 - ANEMIA, UNSPECIFIED Qualifiers: Bone marrow failure anemia type: pancytopenia, antineoplastic chemotherapy- induced (2) SOB (shortness of breath) Code(s): R06.02 - SHORTNESS OF BREATH (3) Atrial fibrillation Code(s): I48.91 - UNSPECIFIED ATRIAL FIBRILLATION Qualifiers: Atrial fibrillation type: paroxysmal Qualified Code(s): I48.0 - Paroxysmal atrial fibrillation (4) Multiple myeloma in remission Code(s): C90.01 - MULTIPLE MYELOMA IN REMISSION
--- NOTE | 2017-05-08 11:39 | PN ---
Progress Note (short form) - Note Progress Note: Denies shortness of breath or chest pain. Some dry cough. No acute events overnight. Intake & Output 05/05/17 05/06/17 05/07/17 05/08/17 23:59 23:59 23:59 23:59 Intake Total 1650 1360 2020 Output Total 1400 350 600 Balance 250 1010 1420 Last Vital Signs Temp Pulse Resp BP Pulse Ox 97.5 F L 82 18 109/66 96 05/08/17 05:37 05/08/17 05:37 05/08/17 05:37 05/08/17 05:37 05/07/17 21:00 Active Medications Acetaminophen (Tylenol -) 650 mg PO Q6H PRN PRN Reason: FEVER OR PAIN Last Admin: 05/02/17 05:44 Dose: 650 mg Apixaban (Eliquis -) 5 mg PO BID [facility] Last Admin: 05/07/17 22:10 Dose: 5 mg Atorvastatin Calcium (Lipitor -) 40 mg PO HS [facility] Last Admin: 05/07/17 22:10 Dose: 40 mg Bacitracin (Bacitracin -) 1 applic TP BID [facility] Last Admin: 05/07/17 22:11 Dose: Not Given Clotrimazole (Mycelex Mary's -) 10 mg PO 5XD [facility] Stop: 05/09/17 23:59 Last Admin: 05/08/17 06:46 Dose: 10 mg Gabapentin (Neurontin Oral Liquid -) 400 mg PO BID [facility] Last Admin: 05/07/17 22:13 Dose: 400 mg Insulin Aspart (Novolog Vial Sliding Scale -) 1 vial SQ TIDAC [facility] PRN Reason: Protocol Last Admin: 05/08/17 06:46 Dose: 4 units Loperamide HCl (Imodium Liquid -) 2 mg NGT BID PRN PRN Reason: DIARRHEA Last Admin: 05/02/17 10:43 Dose: 2 mg Metoprolol Tartrate (Lopressor -) 12.5 mg PO BID [facility] Last Admin: 05/07/17 22:22 Dose: 12.5 mg Mirtazapine (Remeron -) 15 mg PO HS [facility] Last Admin: 05/07/17 22:11 Dose: 15 mg Multi-Ingredient Ointment (Zinc Oxide) 1 applic TP DAILY [facility] Last Admin: 05/07/17 11:00 Dose: 1 applic Nystatin (Nystop Powder -) 1 applic TP DAILY [facility] Last Admin: 05/07/17 12:26 Dose: Not Given Pantoprazole Sodium (Protonix Packets For Oral Suspension -) 40 mg NGT BID [facility] Last Admin: 05/07/17 22:09 Dose: 40 mg Potassium Phos/Sodium Phos (Phos-Nak Packet -) 1 packet GT TID [facility] Last Admin: 05/08/17 06:46 Dose: 1 packet Gen: NAD at rest Heart: RRR Lung: decreased breath sounds at the bases Abd: soft, nontender, (+) BS Ext: no edema Laboratory Results - last 24 hr 05/07/17 05/07/17 05/07/17 10:25 10:25 12:22 WBC RBC Hgb Hct MCV MCH MCHC RDW Plt Count MPV Neutrophils % Neutrophils % (Manual) 80.8 Band Neutrophils % 1.0 Lymphocytes % Lymphocytes % (Manual) 11.1 Monocytes % Monocytes % (Manual) 3 L Eosinophils % Eosinophils % (Manual) 0.0 D Basophils % Basophils % (Manual) 0.0 Myelocytes % (Man) 1 Metamyelocytes 1 D Hypochromia 0 Platelet Estimate Decreased Polychromasia 0 Poikilocytosis 2+ Anisocytosis 1+ Microcytosis 0 Macrocytosis 1+ ESR 115 H Sodium Potassium Chloride Carbon Dioxide Anion Gap BUN Creatinine Creat Clearance w eGFR POC Glucometer 213 Random Glucose Calcium Total Bilirubin AST ALT Alkaline Phosphatase Total Protein Albumin 05/07/17 05/08/17 05/08/17 18:27 06:10 06:10 WBC 5.9 D RBC 2.53 L Hgb 8.3 L Hct 25.8 L MCV 101.9 H MCH 32.7 MCHC 32.1 RDW 18.5 H Plt Count 103 L MPV 9.2 Neutrophils % 79.8 D Neutrophils % (Manual) Band Neutrophils % Lymphocytes % 10.2 D Lymphocytes % (Manual) Monocytes % 9.6 Monocytes % (Manual) Eosinophils % 0.0 D Eosinophils % (Manual) Basophils % 0.4 Basophils % (Manual) Myelocytes % (Man) Metamyelocytes Hypochromia Platelet Estimate Polychromasia Poikilocytosis Anisocytosis Microcytosis Macrocytosis ESR Sodium 143 Potassium 4.0 Chloride 111 H Carbon Dioxide 26 Anion Gap 6 L BUN 17 Creatinine 0.7 Creat Clearance w eGFR > 60 POC Glucometer 223 Random Glucose 199 H Calcium 7.3 L Total Bilirubin 0.2 AST 69 H D ALT 45 Alkaline Phosphatase 109 Total Protein 6.9 Albumin 1.8 L 05/08/17 06:31 WBC RBC Hgb Hct MCV MCH MCHC RDW Plt Count MPV Neutrophils % Neutrophils % (Manual) Band Neutrophils % Lymphocytes % Lymphocytes % (Manual) Monocytes % Monocytes % (Manual) Eosinophils % Eosinophils % (Manual) Basophils % Basophils % (Manual) Myelocytes % (Man) Metamyelocytes Hypochromia Platelet Estimate Polychromasia Poikilocytosis Anisocytosis Microcytosis Macrocytosis ESR Sodium Potassium Chloride Carbon Dioxide Anion Gap BUN Creatinine Creat Clearance w eGFR POC Glucometer 222 Random Glucose Calcium Total Bilirubin AST ALT Alkaline Phosphatase Total Protein Albumin A/P Dysphagia Aspiration Pneumonia CAD LV Diastolic Dysfunction Paroxysmal Atrial Fibrillation Multiple Myeloma HTN DM Anemia - Completed antibiotics - Aspiration precautions - rate controlled - Eliquis - monitor H/H - D/C planning Dr Patterson
[2017-05-08] MEDS ORDERED: PT OWN MED DRAWER 7, Y5N ONE (11:45)
[2017-05-08] MEDS: METOPROLOL TARTRATE 25 MG TABLET (FP) PO SCH ×2 (11:50→22:28)
[2017-05-08] MEDS: APIXABAN 5 MG TABLET PO SCH ×2 (11:50→22:29)
[2017-05-08] MEDS: BACITRACIN 15 GM TUBE TOPICAL OINTMENT TP SCH ×2 (11:51→22:29)
[2017-05-08] MEDS: GABAPENTIN 250 MG/5 ML ORAL SOLUTION, 470 ML BOTTLE PO SCH ×2 (11:51→22:28)
[2017-05-08] MEDS: PANTOPRAZOLE SOD 40 MG SUSPENSION PACKET NGT SCH ×2 (11:52→22:29)
[2017-05-08] MEDS: NYSTATIN POWDER 100,000 UNITS/GM - 15 GM TOPICAL POWDER TP SCH (11:52)
[2017-05-08] MEDS: ZINC OXIDE 20% TOPICAL OINTMENT 30 GM TUBE TP SCH (11:53)
--- NOTE | 2017-05-08 13:47 | PN ---
Progress Note (short form) - Note Progress Note: Patient seen and examined clinically improved Last Vital Signs Temp Pulse Resp BP Pulse Ox 98 F 90 18 109/66 96 05/08/17 12:16 05/08/17 12:16 05/08/17 12:16 05/08/17 12:16 05/07/17 21:00 Cor: RSR, No murmurs, No gallops Lungs: decreased at bases Abd: Soft, Normal bowel sounds, No organomegaly Ext:no edema Abnormal Lab Results 05/08/17 05/08/17 06:10 06:10 RBC 2.53 L Hgb 8.3 L Hct 25.8 L MCV 101.9 H RDW 18.5 H Plt Count 103 L Chloride 111 H Anion Gap 6 L Random Glucose 199 H Calcium 7.3 L AST 69 H D Albumin 1.8 L Active Medications Generic Name Dose Route Start Last Admin Trade Name Freq PRN Reason Stop Dose Admin Acetaminophen 650 mg 04/21/17 07:47 05/02/17 05:44 Tylenol - PO 650 mg Q6H PRN Administration FEVER OR PAIN Apixaban 5 mg 05/01/17 22:00 05/08/17 11:50 Eliquis - PO 5 mg BID [facility] Administration Atorvastatin Calcium 40 mg 04/21/17 22:00 05/07/17 22:10 Lipitor - PO 40 mg HS [facility] Administration Bacitracin 1 applic 04/26/17 22:00 05/08/17 11:51 Bacitracin - TP Not Given BID [facility] Clotrimazole 10 mg 05/03/17 14:00 05/08/17 13:32 Mycelex Mary's - PO 05/09/17 23:59 Not Given 5XD [facility] Gabapentin 400 mg 04/27/17 11:27 05/08/17 11:51 Neurontin Oral Liquid - PO Not Given BID [facility] Insulin Aspart 1 vial 04/21/17 11:00 05/08/17 06:46 Novolog Vial Sliding Scale - SQ 4 units TIDAC [facility] Administration Protocol Loperamide HCl 2 mg 04/25/17 14:45 05/02/17 10:43 Imodium Liquid - NGT 2 mg BID PRN Administration DIARRHEA Metoprolol Tartrate 12.5 mg 04/19/17 13:31 05/08/17 11:50 Lopressor - PO 12.5 mg BID [facility] Administration Mirtazapine 15 mg 04/23/17 22:00 05/07/17 22:11 Remeron - PO 15 mg HS [facility] Administration Multi-Ingredient Ointment 1 applic 04/24/17 22:00 05/08/17 11:53 Zinc Oxide TP 1 applic DAILY [facility] Administration Nystatin 1 applic 04/25/17 22:00 05/08/17 11:52 Nystop Powder - TP 1 applic DAILY [facility] Administration Pantoprazole Sodium 40 mg 04/25/17 22:00 05/08/17 11:52 Protonix Packets For Oral Suspension - NGT 40 mg BID [facility] Administration Potassium Phos/Sodium Phos 1 packet 04/28/17 15:45 05/08/17 06:46 Phos-Nak Packet - GT 1 packet TID [facility] Administration A/P 71 y/o patient with myeloma, on maintenance dick/dex, now with low grade fevers, aspiration myeloma protein stdies show remission neuro consult appreciated -- 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 s/p IVIG. To get IVIG Q 3months or more frequently depending on clinical status monitor cbc. possible transfusion prior to discharge
--- NOTE | 2017-05-08 20:54 | PN ---
Progress Note, Physician History of Present Illness: Tolerating chopped diet, non-productive cough. Afebrile, swallowing improving. - Current Medication List Current Medications: Active Medications Acetaminophen (Tylenol -) 650 mg PO Q6H PRN PRN Reason: FEVER OR PAIN Last Admin: 05/02/17 05:44 Dose: 650 mg Apixaban (Eliquis -) 5 mg PO BID [facility] Last Admin: 05/08/17 11:50 Dose: 5 mg Atorvastatin Calcium (Lipitor -) 40 mg PO HS [facility] Last Admin: 05/07/17 22:10 Dose: 40 mg Bacitracin (Bacitracin -) 1 applic TP BID [facility] Last Admin: 05/08/17 11:51 Dose: Not Given Clotrimazole (Mycelex Mary's -) 10 mg PO 5XD [facility] Stop: 05/09/17 23:59 Last Admin: 05/08/17 18:14 Dose: 10 mg Gabapentin (Neurontin Oral Liquid -) 400 mg PO BID [facility] Last Admin: 05/08/17 11:51 Dose: Not Given Insulin Aspart (Novolog Vial Sliding Scale -) 1 vial SQ TIDAC [facility] PRN Reason: Protocol Last Admin: 05/08/17 17:06 Dose: Not Given Loperamide HCl (Imodium Liquid -) 2 mg NGT BID PRN PRN Reason: DIARRHEA Last Admin: 05/02/17 10:43 Dose: 2 mg Metoprolol Tartrate (Lopressor -) 12.5 mg PO BID [facility] Last Admin: 05/08/17 11:50 Dose: 12.5 mg Mirtazapine (Remeron -) 15 mg PO HS [facility] Last Admin: 05/07/17 22:11 Dose: 15 mg Multi-Ingredient Ointment (Zinc Oxide) 1 applic TP DAILY [facility] Last Admin: 05/08/17 11:53 Dose: 1 applic Nystatin (Nystop Powder -) 1 applic TP DAILY [facility] Last Admin: 05/08/17 11:52 Dose: 1 applic Pantoprazole Sodium (Protonix Packets For Oral Suspension -) 40 mg NGT BID [facility] Last Admin: 05/08/17 11:52 Dose: 40 mg Potassium Phos/Sodium Phos (Phos-Nak Packet -) 1 packet GT TID [facility] Last Admin: 05/08/17 14:24 Dose: 1 packet - Objective Vital Signs: Vital Signs Temperature 98.8 F 05/08/17 18:00 Pulse Rate 91 H 05/08/17 18:00 Respiratory Rate 18 05/08/17 18:00 Blood Pressure 118/61 05/08/17 18:00 O2 Sat by Pulse Oximetry (%) 96 05/07/17 21:00 Constitutional: Yes: No Distress, Calm Neck: Yes: Supple Cardiovascular: Yes: Regular Rate and Rhythm Respiratory: Yes: Regular, Diminished Gastrointestinal: Yes: Normal Bowel Sounds, Soft, Other (PEG in place) Edema: No Labs: CBC, BMP 05/08/17 06:10 05/08/17 06:10 INR, PTT INR 1.17 (0.82-1.09) H 04/26/17 07:00 Problem List - Problems (1) Atrial fibrillation Code(s): I48.91 - UNSPECIFIED ATRIAL FIBRILLATION Qualifiers: Atrial fibrillation type: paroxysmal Qualified Code(s): I48.0 - Paroxysmal atrial fibrillation (2) Diastolic dysfunction Code(s): I51.9 - HEART DISEASE, UNSPECIFIED (3) Anemia Code(s): D64.9 - ANEMIA, UNSPECIFIED Qualifiers: Bone marrow failure anemia type: pancytopenia, antineoplastic chemotherapy- induced (4) Status post insertion of percutaneous endoscopic gastrostomy (PEG) tube Code(s): Z93.1 - GASTROSTOMY STATUS (5) Dysphagia Code(s): R13.10 - DYSPHAGIA, UNSPECIFIED Qualifiers: Dysphagia type: esophageal phase Qualified Code(s): R13.10 - Dysphagia, unspecified (6) Schatzki's ring of distal esophagus Code(s): K22.2 - ESOPHAGEAL OBSTRUCTION (7) Multiple myeloma Code(s): C90.00 - MULTIPLE MYELOMA NOT HAVING ACHIEVED REMISSION Qualifiers: Multiple myeloma remission status: not in remission Qualified Code(s): C90.00 - Multiple myeloma not having achieved remission (8) CIDP (chronic inflammatory demyelinating polyneuropathy) Code(s): G61.81 - CHRONIC INFLAMMATORY DEMYELINATING POLYNEURITIS Assessment/Plan Echocardiography dated 03/26/17 revealed normal LV size and function 1. 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 Symptomatic anemia post transfusion 3. Paroxysmal atrial fibrillation with periods of rapid ventricular response currently in sinus rhythm [id number] score of 3, on A/C therapy with NOAC's/ Eliquis 4. Coronary artery disease angina pectoris 5. LV diastolic dysfunction with chronic class 0-I NYHA classification LV failure, compensated/euvolemic 6. Hypertension 7. DM 8. Hypercholesterolemia 9. Thrombocytopenia 10. 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 History of peripheral neuropathy 12. Diarrhea with + c. diff Ag PLAN: 1. Continue Eliquis 5 bid with caution and close monitoring of CBC maintaining Hg equal or > 8.0 2. Continue Lopressor 12.5 bid hemodynamics permitting 3. Continue Lipitor 40 qhs 4. Start Diovan 40 qd hemodynamics permitting, post 2 days IVIG for CIDP, plan for q3 month as needed for flare 5. Initiate PT->SNF, chopped diet
[2017-05-08] MEDS: ATORVASTATIN CA 40 MG TABLET (FP) PO SCH (22:28)
[2017-05-08] MEDS: MIRTAZAPINE 15 MG TABLET (FP) PO SCH (22:29)
[2017-05-08] MEDS: ACETAMINOPHEN 325 MG TABLET (FP) PO PRN (23:28)
[2017-05-09] MEDS: CLOTRIMAZOLE 10 MG TROCHE (FP) PO SCH ×5 (06:42→22:49)
[2017-05-09] MEDS: INSULIN SLIDING SCALE (NOVOLOG) 1 VIAL SQ SCH ×3 (06:43→18:51)
[2017-05-09] MEDS: NAPH,MB-DB/K PH,MBDB POWDER PACKET GT SCH ×3 (06:43→22:49)
[2017-05-09 07:13] LABS: ALBUMIN 1.9 g/dl (3.4-5.0); ANION GAP 7 (8-16); BLOOD UREA NITROGEN 18 mg/dL (7-18); CALCIUM 7.2 mg/dL (8.5-10.1); CHLORIDE 112 mmol/L (98-107); CO2 27 mmol/L (21-32); CREATININE 0.6 mg/dL (0.7-1.3); GLUCOSE,RANDOM 90 mg/dL (74-106); POTASSIUM 3.6 mmol/L (3.5-5.1); SGOT/AST 184 U/L (15-37); SGPT/ALT 93 U/L (12-78); SODIUM 146 mmol/L (136-145)
[2017-05-09 07:15] LABS: ALK PHOS 123 U/L (45-117); BILIRUBIN,TOTAL 0.4 mg/dL (0.2-1.0); TOT PROT 6.7 g/dl (6.4-8.2)
[2017-05-09 07:32] LABS: HEMATOCRIT 26.2 % (35.4-49); HEMOGLOBIN 8.3 GM/dL (11.7-16.9); MCH 32.7 pg (25.7-33.7); MCHC 31.7 g/dl (32.0-35.9); MEAN CELL VOLUME 102.9 fl (80-96); MEAN PLT VOLUME 8.5 fl (7.5-11.1); PLATELET COUNT 98 K/MM3 (134-434); RBC 2.55 M/mm3 (4.00-5.60); WHITE BLOOD COUNT 4.7 K/mm3 (4.0-10.0)
--- NOTE | 2017-05-09 11:17 | PN ---
Progress Note (short form) - Note Progress Note: Denies shortness of breath or chest pain. Appears clinically better. Some dry cough. No acute events overnight. Intake & Output 05/06/17 05/07/17 05/08/17 05/09/17 23:59 23:59 23:59 23:59 Intake Total 1360 2020 0 600 Output Total 350 600 200 500 Balance 1010 1420 -200 100 Last Vital Signs Temp Pulse Resp BP Pulse Ox 98.6 F 102 H 20 99/73 94 L 05/09/17 09:32 05/09/17 09:32 05/09/17 09:32 05/09/17 09:32 05/08/17 20:49 Active Medications Acetaminophen (Tylenol -) 650 mg PO Q6H PRN PRN Reason: FEVER OR PAIN Last Admin: 05/08/17 23:28 Dose: 650 mg Apixaban (Eliquis -) 5 mg PO BID [facility] Last Admin: 05/08/17 22:29 Dose: 5 mg Atorvastatin Calcium (Lipitor -) 40 mg PO [facility] Last Admin: 05/08/17 22:28 Dose: 40 mg Bacitracin (Bacitracin -) 1 applic TP BID [facility] Last Admin: 05/08/17 22:29 Dose: Not Given Clotrimazole (Mycelex Mary's -) 10 mg PO 5XD [facility] Stop: 05/09/17 23:59 Last Admin: 05/09/17 06:42 Dose: Not Given Gabapentin (Neurontin Oral Liquid -) 400 mg PO BID [facility] Last Admin: 05/08/17 22:28 Dose: 400 mg Insulin Aspart (Novolog Vial Sliding Scale -) 1 vial SQ TIDAC [facility] PRN Reason: Protocol Last Admin: 05/09/17 06:43 Dose: Not Given Loperamide HCl (Imodium Liquid -) 2 mg NGT BID PRN PRN Reason: DIARRHEA Last Admin: 05/02/17 10:43 Dose: 2 mg Metoprolol Tartrate (Lopressor -) 12.5 mg PO BID [facility] Last Admin: 05/08/17 22:28 Dose: 12.5 mg Mirtazapine (Remeron -) 15 mg PO HS [facility] Last Admin: 05/08/17 22:29 Dose: 15 mg Multi-Ingredient Ointment (Zinc Oxide) 1 applic TP DAILY [facility] Last Admin: 05/08/17 11:53 Dose: 1 applic Nystatin (Nystop Powder -) 1 applic TP DAILY [facility] Last Admin: 05/08/17 11:52 Dose: 1 applic Pantoprazole Sodium (Protonix Packets For Oral Suspension -) 40 mg NGT BID [facility] Last Admin: 05/08/17 22:29 Dose: 40 mg Potassium Phos/Sodium Phos (Phos-Nak Packet -) 1 packet GT TID [facility] Last Admin: 05/09/17 06:43 Dose: 1 packet Valsartan (Diovan -) 40 mg PO DAILY [facility] Gen: NAD at rest Heart: RRR Lung: decreased breath sounds at the bases Abd: soft, nontender, (+) BS Ext: no edema Laboratory Results - last 24 hr 05/08/17 05/08/17 05/09/17 14:27 17:01 05:30 WBC 4.7 RBC 2.55 L Hgb 8.3 L Hct 26.2 L MCV 102.9 H MCH 32.7 MCHC 31.7 L RDW 19.0 H Plt Count 98 L MPV 8.5 Neutrophils % No Result Required. Lymphocytes % No Result Required. Sodium Potassium Chloride Carbon Dioxide Anion Gap BUN Creatinine Creat Clearance w eGFR POC Glucometer 151 106 Random Glucose Calcium Total Bilirubin AST ALT Alkaline Phosphatase Total Protein Albumin 05/09/17 05/09/17 05:30 06:42 WBC RBC Hgb Hct MCV MCH MCHC RDW Plt Count MPV Neutrophils % Lymphocytes % Sodium 146 H Potassium 3.6 Chloride 112 H Carbon Dioxide 27 Anion Gap 7 L BUN 18 Creatinine 0.6 L Creat Clearance w eGFR > 60 POC Glucometer 109 Random Glucose 90 D Calcium 7.2 L Total Bilirubin 0.4 D AST 184 H D ALT 93 H D Alkaline Phosphatase 123 H Total Protein 6.7 Albumin 1.9 L A/P Dysphagia Aspiration Pneumonia CAD LV Diastolic Dysfunction Paroxysmal Atrial Fibrillation Multiple Myeloma HTN DM Anemia - Completed antibiotics - Aspiration precautions - rate controlled - Eliquis - monitor H/H - D/C planning Dr Patterson
[2017-05-09 12:05] LABS: PLATELET ESTIMATE DECREASED
[2017-05-09] MEDS ORDERED: PT OWN MED DRAWER 7, Y5N ONE (12:20)
[2017-05-09] MEDS: VALSARTAN 40 MG TABLET (FP) PO SCH (12:49)
[2017-05-09] MEDS: METOPROLOL TARTRATE 25 MG TABLET (FP) PO SCH ×2 (12:49→22:48)
[2017-05-09] MEDS: PANTOPRAZOLE SOD 40 MG SUSPENSION PACKET NGT SCH ×2 (12:50→22:49)
[2017-05-09] MEDS: APIXABAN 5 MG TABLET PO SCH ×2 (12:51→22:47)
[2017-05-09] MEDS: GABAPENTIN 250 MG/5 ML ORAL SOLUTION, 470 ML BOTTLE PO SCH ×2 (12:55→22:48)
[2017-05-09] MEDS: BACITRACIN 15 GM TUBE TOPICAL OINTMENT TP SCH ×2 (12:55→22:47)
[2017-05-09] MEDS: NYSTATIN POWDER 100,000 UNITS/GM - 15 GM TOPICAL POWDER TP SCH (13:01)
[2017-05-09] MEDS: ZINC OXIDE 20% TOPICAL OINTMENT 30 GM TUBE TP SCH (13:01)
--- NOTE | 2017-05-09 13:12 | PN ---
Progress Note (short form) - Note Progress Note: awake/ comfortable feels good staff reports ate almost all of his food yesterday and today wants solid food - not chopped staff also reports ate burger without any difficulty no diarrhea afevrile denies pain. Vital Signs Temp 98.6 F 05/09/17 09:32 Pulse 102 H 05/09/17 09:32 Resp 20 05/09/17 09:32 BP 99/73 05/09/17 09:32 Pulse Ox 94 L 05/08/17 20:49 Intake & Output 05/08/17 05/09/17 05/09/17 23:59 11:59 23:59 Intake Total 0 600 Output Total 200 500 Balance -200 100 Intake: IV 0 SL 0 Tube Feeding 400 Tube Irrigant 200 Output: Urine 200 500 Void 200 500 Other: Voiding Method Urinal Urinal # Unmeasured Voids Void 1 2 Bowel Movement Yes: dark, soft Yes: 1 # Bowel Movements 1 Active Medications Acetaminophen (Tylenol -) 650 mg PO Q6H PRN PRN Reason: FEVER OR PAIN Last Admin: 05/08/17 23:28 Dose: 650 mg Apixaban (Eliquis -) 5 mg PO BID [facility] Last Admin: 05/09/17 12:51 Dose: 5 mg Atorvastatin Calcium (Lipitor -) 40 mg PO HS [facility] Last Admin: 05/08/17 22:28 Dose: 40 mg Bacitracin (Bacitracin -) 1 applic TP BID [facility] Last Admin: 05/09/17 12:55 Dose: Not Given Clotrimazole (Mycelex Mary's -) 10 mg PO 5XD [facility] Stop: 05/09/17 23:59 Last Admin: 05/09/17 12:51 Dose: 10 mg Gabapentin (Neurontin Oral Liquid -) 400 mg PO BID [facility] Last Admin: 05/09/17 12:55 Dose: 400 mg Insulin Aspart (Novolog Vial Sliding Scale -) 1 vial SQ TIDAC [facility] PRN Reason: Protocol Last Admin: 05/09/17 12:46 Dose: Not Given Loperamide HCl (Imodium Liquid -) 2 mg NGT BID PRN PRN Reason: DIARRHEA Last Admin: 05/02/17 10:43 Dose: 2 mg Metoprolol Tartrate (Lopressor -) 12.5 mg PO BID [facility] Last Admin: 05/09/17 12:49 Dose: Not Given Mirtazapine (Remeron -) 15 mg PO HS [facility] Last Admin: 05/08/17 22:29 Dose: 15 mg Multi-Ingredient Ointment (Zinc Oxide) 1 applic TP DAILY [facility] Last Admin: 05/09/17 13:01 Dose: 1 applic Nystatin (Nystop Powder -) 1 applic TP DAILY [facility] Last Admin: 05/09/17 13:01 Dose: 1 applic Pantoprazole Sodium (Protonix Packets For Oral Suspension -) 40 mg NGT BID [facility] Last Admin: 05/09/17 12:50 Dose: 40 mg Potassium Phos/Sodium Phos (Phos-Nak Packet -) 1 packet GT TID [facility] Last Admin: 05/09/17 06:43 Dose: 1 packet Valsartan (Diovan -) 40 mg PO DAILY [facility] Last Admin: 05/09/17 12:49 Dose: Not Given CBC, BMP 05/09/17 05:30 05/09/17 05:30 Physical exam awake and comfortable. Lungs--clear cvs- s1, s2 rrr abd - soft/ non tender. bs + Status post PEG ext- no edema neuro- ao x3 ASSESSMENT/PLAN: Clinically stable Much better off abx advance diet as tolerated-- will give regular dist-- advised to eat slowly and chew properly will hold off feedings then observe today daily oob - chair f/u cbc transfuse prn d/c planning - anticipate d/c tomorrow Problem List - Problems (1) Anemia Code(s): D64.9 - ANEMIA, UNSPECIFIED Qualifiers: Bone marrow failure anemia type: pancytopenia, antineoplastic chemotherapy- induced (2) SOB (shortness of breath) Code(s): R06.02 - SHORTNESS OF BREATH (3) Atrial fibrillation Code(s): I48.91 - UNSPECIFIED ATRIAL FIBRILLATION Qualifiers: Atrial fibrillation type: paroxysmal Qualified Code(s): I48.0 - Paroxysmal atrial fibrillation (4) Multiple myeloma in remission Code(s): C90.01 - MULTIPLE MYELOMA IN REMISSION
--- NOTE | 2017-05-09 16:11 | PN ---
Progress Note (short form) - Note Progress Note: Patient seen and examined Feels well. Denies any complaints Last Vital Signs Temp Pulse Resp BP Pulse Ox 98.7 F 108 H 20 103/61 94 L 05/09/17 14:40 05/09/17 14:40 05/09/17 14:40 05/09/17 14:40 05/08/17 20:49 Cor: RSR, No murmurs, No gallops Lungs: decreased at bases Abd: Soft, Normal bowel sounds, No organomegaly Ext:no edema Abnormal Lab Results 05/09/17 05/09/17 05:30 05:30 RBC 2.55 L Hgb 8.3 L Hct 26.2 L MCV 102.9 H MCHC 31.7 L RDW 19.0 H Plt Count 98 L Sodium 146 H Chloride 112 H Anion Gap 7 L Creatinine 0.6 L Calcium 7.2 L AST 184 H D ALT 93 H D Alkaline Phosphatase 123 H Albumin 1.9 L Active Medications Acetaminophen (Tylenol -) 650 mg PO Q6H PRN PRN Reason: FEVER OR PAIN Last Admin: 05/08/17 23:28 Dose: 650 mg Apixaban (Eliquis -) 5 mg PO BID [facility] Last Admin: 05/09/17 12:51 Dose: 5 mg Bacitracin (Bacitracin -) 1 applic TP BID [facility] Last Admin: 05/09/17 12:55 Dose: Not Given Clotrimazole (Mycelex Mary's -) 10 mg PO 5XD [facility] Stop: 05/09/17 23:59 Last Admin: 05/09/17 16:09 Dose: Not Given Gabapentin (Neurontin Oral Liquid -) 400 mg PO BID [facility] Last Admin: 05/09/17 12:55 Dose: 400 mg Insulin Aspart (Novolog Vial Sliding Scale -) 1 vial SQ TIDAC [facility] PRN Reason: Protocol Last Admin: 05/09/17 12:46 Dose: Not Given Loperamide HCl (Imodium Liquid -) 2 mg NGT BID PRN PRN Reason: DIARRHEA Last Admin: 05/02/17 10:43 Dose: 2 mg Metoprolol Tartrate (Lopressor -) 12.5 mg PO BID [facility] Last Admin: 05/09/17 12:49 Dose: Not Given Mirtazapine (Remeron -) 15 mg PO HS [facility] Last Admin: 05/08/17 22:29 Dose: 15 mg Multi-Ingredient Ointment (Zinc Oxide) 1 applic TP DAILY [facility] Last Admin: 05/09/17 13:01 Dose: 1 applic Nystatin (Nystop Powder -) 1 applic TP DAILY [facility] Last Admin: 05/09/17 13:01 Dose: 1 applic Pantoprazole Sodium (Protonix Packets For Oral Suspension -) 40 mg NGT BID [facility] Last Admin: 05/09/17 12:50 Dose: 40 mg Potassium Phos/Sodium Phos (Phos-Nak Packet -) 1 packet GT TID [facility] Last Admin: 05/09/17 06:43 Dose: 1 packet Valsartan (Diovan -) 40 mg PO DAILY [facility] Last Admin: 05/09/17 12:49 Dose: Not Given A/P 71 y/o patient with myeloma, on maintenance dick/dex, now with low grade fevers, aspiration myeloma protein studies show remission neuro consult appreciated -- 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 s/p IVIG. To get IVIG Q 3months or more frequently depending on clinical status abnormal LFTs d/c atorvastatin will request gi f/u will get u/s mild thrombocytopenia--check ciltures/ r/o occult infection monitor cbc. MAy need PRBCs
--- NOTE | 2017-05-09 17:42 | PN ---
Progress Note, Physician History of Present Illness: Tolerating chopped diet, non-productive cough. Afebrile, swallowing improving. - Current Medication List Current Medications: Active Medications Acetaminophen (Tylenol -) 650 mg PO Q6H PRN PRN Reason: FEVER OR PAIN Last Admin: 05/08/17 23:28 Dose: 650 mg Apixaban (Eliquis -) 5 mg PO BID [facility] Last Admin: 05/09/17 12:51 Dose: 5 mg Bacitracin (Bacitracin -) 1 applic TP BID [facility] Last Admin: 05/09/17 12:55 Dose: Not Given Clotrimazole (Mycelex Mary's -) 10 mg PO 5XD [facility] Stop: 05/09/17 23:59 Last Admin: 05/09/17 16:09 Dose: Not Given Gabapentin (Neurontin Oral Liquid -) 400 mg PO BID [facility] Last Admin: 05/09/17 12:55 Dose: 400 mg Insulin Aspart (Novolog Vial Sliding Scale -) 1 vial SQ TIDAC [facility] PRN Reason: Protocol Last Admin: 05/09/17 12:46 Dose: Not Given Loperamide HCl (Imodium Liquid -) 2 mg NGT BID PRN PRN Reason: DIARRHEA Last Admin: 05/02/17 10:43 Dose: 2 mg Metoprolol Tartrate (Lopressor -) 12.5 mg PO BID [facility] Last Admin: 05/09/17 12:49 Dose: Not Given Mirtazapine (Remeron -) 15 mg PO HS [facility] Last Admin: 05/08/17 22:29 Dose: 15 mg Multi-Ingredient Ointment (Zinc Oxide) 1 applic TP DAILY [facility] Last Admin: 05/09/17 13:01 Dose: 1 applic Nystatin (Nystop Powder -) 1 applic TP DAILY [facility] Last Admin: 05/09/17 13:01 Dose: 1 applic Pantoprazole Sodium (Protonix Packets For Oral Suspension -) 40 mg NGT BID [facility] Last Admin: 05/09/17 12:50 Dose: 40 mg Potassium Phos/Sodium Phos (Phos-Nak Packet -) 1 packet GT TID [facility] Last Admin: 05/09/17 17:13 Dose: Not Given Valsartan (Diovan -) 40 mg PO DAILY [facility] Last Admin: 05/09/17 12:49 Dose: Not Given - Objective Vital Signs: Vital Signs Temperature 98.7 F 05/09/17 14:40 Pulse Rate 108 H 05/09/17 14:40 Respiratory Rate 20 05/09/17 14:40 Blood Pressure 103/61 05/09/17 14:40 O2 Sat by Pulse Oximetry (%) 94 L 05/08/17 20:49 Constitutional: Yes: No Distress, Calm Neck: Yes: Supple Cardiovascular: Yes: Regular Rate and Rhythm Respiratory: Yes: Regular, CTA Bilaterally Gastrointestinal: Yes: Normal Bowel Sounds, Soft Edema: No Labs: CBC, BMP 05/09/17 05:30 05/09/17 05:30 INR, PTT INR 1.17 (0.82-1.09) H 04/26/17 07:00 Problem List - Problems (1) Atrial fibrillation Code(s): I48.91 - UNSPECIFIED ATRIAL FIBRILLATION Qualifiers: Atrial fibrillation type: paroxysmal Qualified Code(s): I48.0 - Paroxysmal atrial fibrillation (2) Diastolic dysfunction Code(s): I51.9 - HEART DISEASE, UNSPECIFIED (3) Anemia Code(s): D64.9 - ANEMIA, UNSPECIFIED Qualifiers: Bone marrow failure anemia type: pancytopenia, antineoplastic chemotherapy- induced (4) Status post insertion of percutaneous endoscopic gastrostomy (PEG) tube Code(s): Z93.1 - GASTROSTOMY STATUS (5) Dysphagia Code(s): R13.10 - DYSPHAGIA, UNSPECIFIED Qualifiers: Dysphagia type: esophageal phase Qualified Code(s): R13.10 - Dysphagia, unspecified (6) Schatzki's ring of distal esophagus Code(s): K22.2 - ESOPHAGEAL OBSTRUCTION (7) Multiple myeloma Code(s): C90.00 - MULTIPLE MYELOMA NOT HAVING ACHIEVED REMISSION Qualifiers: Multiple myeloma remission status: not in remission Qualified Code(s): C90.00 - Multiple myeloma not having achieved remission (8) CIDP (chronic inflammatory demyelinating polyneuropathy) Code(s): G61.81 - CHRONIC INFLAMMATORY DEMYELINATING POLYNEURITIS Assessment/Plan Echocardiography dated 03/26/17 revealed normal LV size and function 1. 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 Symptomatic anemia post transfusion 3. Paroxysmal atrial fibrillation with periods of rapid ventricular response currently in sinus rhythm [id number] score of 3, on A/C therapy with NOAC's/ Eliquis 4. Coronary artery disease angina pectoris 5. LV diastolic dysfunction with chronic class 0-I NYHA classification LV failure, compensated/euvolemic 6. Hypertension 7. DM 8. Hypercholesterolemia 9. Thrombocytopenia 10. 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 History of peripheral neuropathy 12. Diarrhea with + c. diff Ag PLAN: 1. Continue Eliquis 5 bid with caution and close monitoring of CBC maintaining Hg equal or > 8.0 2. Continue Lopressor 12.5 bid hemodynamics permitting 3. D/aleksandr Lipitor 40 qhs 4. Continue Diovan 40 qd hemodynamics permitting, post 2 days IVIG for CIDP, plan for q3 month as needed for flare 5. Initiate PT->SNF, chopped diet
[2017-05-09] MEDS: MIRTAZAPINE 15 MG TABLET (FP) PO SCH (22:47)
[2017-05-09] MEDS: ACETAMINOPHEN 325 MG TABLET (FP) PO PRN (22:50)
[2017-05-10] MEDS: NAPH,MB-DB/K PH,MBDB POWDER PACKET GT SCH ×3 (05:18→21:21)
[2017-05-10] MEDS: INSULIN SLIDING SCALE (NOVOLOG) 1 VIAL SQ SCH ×3 (06:20→17:07)
[2017-05-10 07:05] LABS: BASO % 0.8 % (0-2.0); EOS % 1.5 % (0-4.5); HEMATOCRIT 29.6 % (35.4-49); HEMOGLOBIN 9.4 GM/dL (11.7-16.9); LYMPH % 19.7 % (8-40); MCH 32.7 pg (25.7-33.7); MCHC 31.8 g/dl (32.0-35.9); MEAN CELL VOLUME 102.9 fl (80-96); MEAN PLT VOLUME 9.2 fl (7.5-11.1); MONO % 12.1 % (3.8-10.2); NEUT % 65.9 % (42.8-82.8); PLATELET COUNT 101 K/MM3 (134-434); RBC 2.88 M/mm3 (4.00-5.60); RDW 19.2 % (11.9-15.9); WHITE BLOOD COUNT 3.9 K/mm3 (4.0-10.0)
[2017-05-10 07:43] LABS: CHLORIDE 111 mmol/L (98-107); POTASSIUM 3.7 mmol/L (3.5-5.1); SODIUM 143 mmol/L (136-145)
[2017-05-10 07:50] LABS: ALBUMIN 2.2 g/dl (3.4-5.0); ALK PHOS 117 U/L (45-117); ANION GAP 8 (8-16); BILIRUBIN,TOTAL 0.4 mg/dL (0.2-1.0); BLOOD UREA NITROGEN 15 mg/dL (7-18); CALCIUM 7.6 mg/dL (8.5-10.1); CO2 24 mmol/L (21-32); CREATININE 0.6 mg/dL (0.7-1.3); GLUCOSE,RANDOM 105 mg/dL (74-106); SGOT/AST 218 U/L (15-37); SGPT/ALT 129 U/L (12-78); TOT PROT 6.7 g/dl (6.4-8.2)
--- NOTE | 2017-05-10 09:20 | PN ---
Progress Note (short form) - Note Progress Note: patient seen and examined comfortable Eating much better G-tube feedings held--- as he is eating much better No diarrhea Denies abdominal pain Hematology follow-up noted Ultrasound of the liver ordered due to elevated LFTs Lipitor also discontinued Also concerning for occult infection due to thrombocytopenia--- repeat cultures sent Off antibiotics Afebrile Vital Signs Temp 97.3 F L 05/10/17 05:40 Pulse 90 05/10/17 05:40 Resp 20 05/10/17 05:40 BP 119/75 05/10/17 05:40 Pulse Ox 97 05/09/17 21:00 Intake & Output 05/09/17 05/09/17 05/10/17 11:59 23:59 11:59 Intake Total 600 120 200 Output Total 500 500 Balance 100 120 -300 Intake: Oral 120 Tube Feeding 400 Tube Irrigant 200 200 Output: Urine 500 500 Void 500 500 Other: Voiding Method Urinal Urinal Urinal # Unmeasured Voids Void 2 Bowel Movement Yes: 1 Yes # Bowel Movements 1 Active Medications Acetaminophen (Tylenol -) 650 mg PO Q6H PRN PRN Reason: FEVER OR PAIN Last Admin: 05/09/17 22:50 Dose: 650 mg Apixaban (Eliquis -) 5 mg PO BID [facility] Last Admin: 05/09/17 22:47 Dose: 5 mg Bacitracin (Bacitracin -) 1 applic TP BID [facility] Last Admin: 05/09/17 22:47 Dose: Not Given Gabapentin (Neurontin Oral Liquid -) 400 mg PO BID [facility] Last Admin: 05/09/17 22:48 Dose: 400 mg Insulin Aspart (Novolog Vial Sliding Scale -) 1 vial SQ TIDAC [facility] PRN Reason: Protocol Last Admin: 05/10/17 06:20 Dose: Not Given Loperamide HCl (Imodium Liquid -) 2 mg NGT BID PRN PRN Reason: DIARRHEA Last Admin: 05/02/17 10:43 Dose: 2 mg Metoprolol Tartrate (Lopressor -) 12.5 mg PO BID [facility] Last Admin: 05/09/17 22:48 Dose: 12.5 mg Mirtazapine (Remeron -) 15 mg PO HS [facility] Last Admin: 05/09/17 22:47 Dose: 15 mg Multi-Ingredient Ointment (Zinc Oxide) 1 applic TP DAILY [facility] Last Admin: 05/09/17 13:01 Dose: 1 applic Nystatin (Nystop Powder -) 1 applic TP DAILY [facility] Last Admin: 05/09/17 13:01 Dose: 1 applic Pantoprazole Sodium (Protonix Packets For Oral Suspension -) 40 mg NGT BID [facility] Last Admin: 05/09/17 22:49 Dose: 40 mg Potassium Phos/Sodium Phos (Phos-Nak Packet -) 1 packet GT TID [facility] Last Admin: 05/10/17 05:18 Dose: 1 packet Valsartan (Diovan -) 40 mg PO DAILY [facility] Last Admin: 05/09/17 12:49 Dose: Not Given CBC,CMP WBC 3.9 K/mm3 (4.0-10.0) L 05/10/17 06:08 Corrected WBC (auto) Cancelled 04/26/17 07:00 RBC 2.88 M/mm3 (4.00-5.60) L 05/10/17 06:08 Hgb 9.4 GM/dL (11.7-16.9) L D 05/10/17 06:08 Hct 29.6 % (35.4-49) L 05/10/17 06:08 MCV 102.9 fl (80-96) H 05/10/17 06:08 MCH 32.7 pg (25.7-33.7) 05/10/17 06:08 MCHC 31.8 g/dl (32.0-35.9) L 05/10/17 06:08 RDW 19.2 % (11.9-15.9) H 05/10/17 06:08 Plt Count 101 K/MM3 (134-434) L 05/10/17 06:08 MPV 9.2 fl (7.5-11.1) 05/10/17 06:08 Band Neut # 3.4 % (42.8-82.8) L 04/08/17 13:10 Lymph # (Auto) 0.7 % (8-40) L 04/08/17 13:10 [place] # (Auto) 0.9 % (3.8-10.2) L 04/08/17 13:10 Eos # (Auto) 0.1 % (0-4.5) 04/08/17 13:10 Absolute Neuts (auto) 2.3 # (42.8-82.8) L 04/09/17 05:05 Absolute Lymphs (auto) 0.7 (8-40) L 04/09/17 05:05 Absolute Monos (auto) 0.7 # (3.8-10.2) L 04/09/17 05:05 Absolute Eos (auto) 0.1 # (0-4.5) 04/09/17 05:05 Absolute Basos (auto) 0.0 # (0.1-1) L 04/09/17 05:05 Total Counted 100 04/10/17 06:30 Neutrophils % 65.9 % (42.8-82.8) 05/10/17 06:08 Neutrophils % (Manual) 73.4 % (42.8-82.8) 05/09/17 05:30 Band Neutrophils % 1.1 % 05/09/17 05:30 Lymphocytes % 19.7 % (8-40) D 05/10/17 06:08 Lymphocytes % (Manual) 13.8 % (8-40) D 05/09/17 05:30 Monocytes % 12.1 % (3.8-10.2) H 05/10/17 06:08 Monocytes % (Manual) 9 % (3.8-10.2) D 05/09/17 05:30 Eosinophils % 1.5 % (0-4.5) D 05/10/17 06:08 Eosinophils % (Manual) 0.0 % (0-4.5) 05/09/17 05:30 Basophils % 0.8 % (0-2.0) 05/10/17 06:08 Basophils % (Manual) 0.0 % (0-2.0) 05/09/17 05:30 Myelocytes % (Man) 1 % (0-2) 05/09/17 05:30 Nucleated RBC % Cancelled 04/26/17 07:00 Metamyelocytes 2 % (0-2) D 05/09/17 05:30 Smudge Cells Few 04/17/17 06:00 Hypochromia 0 05/07/17 10:25 Platelet Estimate Decreased 05/09/17 05:30 Platelet Comment No clotting detected 04/17/17 06:00 Polychromasia 0 05/07/17 10:25 Poikilocytosis 2+ 05/07/17 10:25 Anisocytosis 1+ 05/07/17 10:25 Microcytosis 0 05/07/17 10:25 Macrocytosis 1+ 05/07/17 10:25 Tear Drop Cells 1+ 05/04/17 06:00 Ovalocytes 1+ 04/25/17 06:30 [place] Pool Cells 1+ 04/17/17 06:00 Fragmented RBCs 1+ 04/17/17 06:00 ESR 115 mm/hr (0-20) H 05/07/17 10:25 Retic Count 3.07 % (0.5-1.5) H 04/11/17 06:38 Haptoglobin 255 mg/dL (34-200) H 04/10/17 06:30 Sodium 143 mmol/L (136-145) 05/10/17 06:08 Potassium 3.7 mmol/L (3.5-5.1) 05/10/17 06:08 Chloride 111 mmol/L (98-107) H 05/10/17 06:08 Carbon Dioxide 24 mmol/L (21-32) 05/10/17 06:08 Anion Gap 8 (8-16) 05/10/17 06:08 BUN 15 mg/dL (7-18) 05/10/17 06:08 Creatinine 0.6 mg/dL (0.7-1.3) L 05/10/17 06:08 Creat Clearance w eGFR > 60 (>60) 05/10/17 06:08 POC Glucometer 97 UNITS (80-120) 05/10/17 05:51 Random Glucose 105 mg/dL (74-106) 05/10/17 06:08 Hemoglobin A1c % 8.4 % (4.8-6.0) H D 04/09/17 05:05 Lactic Acid 2.0 mmol/L (0.4-2.0) 04/08/17 13:10 Uric Acid 3.2 mg/dL (2.6-7.2) D 04/26/17 09:00 Calcium 7.6 mg/dL (8.5-10.1) L 05/10/17 06:08 Phosphorus 2.8 mg/dL (2.5-4.9) D 05/02/17 06:00 Magnesium 1.9 mg/dL (1.8-2.4) 05/04/17 06:00 Total Bilirubin 0.4 mg/dL (0.2-1.0) 05/10/17 06:08 AST 218 U/L (15-37) H 05/10/17 06:08 ALT 129 U/L (12-78) H D 05/10/17 06:08 Alkaline Phosphatase 117 U/L (45-117) 05/10/17 06:08 LD Total 399 U/L (87-241) H D 04/10/17 06:30 Creatine Kinase 70 IU/L (39-308) 04/09/17 05:05 Troponin I 0.06 ng/ml (0.00-0.05) H D 04/09/17 05:05 B-Natriuretic Peptide 161.18 pg/ml (5-125) H 04/08/17 13:10 Total Protein 6.7 g/dl (6.4-8.2) 05/10/17 06:08 Albumin 2.2 g/dl (3.4-5.0) L 05/10/17 06:08 Triglycerides 143 mg/dL (35-160) 04/09/17 05:05 Cholesterol 107 mg/dL (50-200) 04/09/17 05:05 Total LDL Cholesterol 63 mg/dL (5-100) 04/09/17 05:05 HDL Cholesterol 28 mg/dL (40-60) L 04/09/17 05:05 PTH Intact 28 pg/mL (15-65) 04/26/17 13:40 Physical exam awake and comfortable. Lungs--clear cvs- s1, s2 rrr abd - soft/ non tender. bs + Status post PEG ext- no edema neuro- ao x3 ASSESSMENT/PLAN: Clinically stable Much better off abx follow-up cultures Follow-up ultrasound Follow-up labs Will discuss with hematology Discharge planning--- has to postpone till tomorrow--- due to above issues Problem List - Problems (1) Anemia Code(s): D64.9 - ANEMIA, UNSPECIFIED Qualifiers: Bone marrow failure anemia type: pancytopenia, antineoplastic chemotherapy- induced (2) SOB (shortness of breath) Code(s): R06.02 - SHORTNESS OF BREATH (3) Atrial fibrillation Code(s): I48.91 - UNSPECIFIED ATRIAL FIBRILLATION Qualifiers: Atrial fibrillation type: paroxysmal Qualified Code(s): I48.0 - Paroxysmal atrial fibrillation (4) Multiple myeloma in remission Code(s): C90.01 - MULTIPLE MYELOMA IN REMISSION
[2017-05-10] MEDS ORDERED: PT OWN MED DRAWER 7, Y5N ONE ×3 (10:03→20:14)
[2017-05-10] MEDS: METOPROLOL TARTRATE 25 MG TABLET (FP) PO SCH ×2 (12:20→21:20)
[2017-05-10] MEDS: PANTOPRAZOLE SOD 40 MG SUSPENSION PACKET NGT SCH ×2 (12:20→23:10)
[2017-05-10] MEDS: VALSARTAN 40 MG TABLET (FP) PO SCH (12:20)
[2017-05-10] MEDS: APIXABAN 5 MG TABLET PO SCH ×2 (12:21→21:21)
[2017-05-10] MEDS: NYSTATIN POWDER 100,000 UNITS/GM - 15 GM TOPICAL POWDER TP SCH (12:23)
[2017-05-10] MEDS: BACITRACIN 15 GM TUBE TOPICAL OINTMENT TP SCH ×2 (12:24→21:21)
[2017-05-10] MEDS: ZINC OXIDE 20% TOPICAL OINTMENT 30 GM TUBE TP SCH (12:24)
[2017-05-10] MEDS: GABAPENTIN 250 MG/5 ML ORAL SOLUTION, 470 ML BOTTLE PO SCH ×2 (12:37→21:20)
--- NOTE | 2017-05-10 12:41 | PN ---
Progress Note, Physician History of Present Illness: Tolerating chopped diet, non-productive cough. Afebrile, swallowing improving. - Current Medication List Current Medications: Active Medications Acetaminophen (Tylenol -) 650 mg PO Q6H PRN PRN Reason: FEVER OR PAIN Last Admin: 05/09/17 22:50 Dose: 650 mg Apixaban (Eliquis -) 5 mg PO BID [facility] Last Admin: 05/10/17 12:21 Dose: 5 mg Bacitracin (Bacitracin -) 1 applic TP BID [facility] Last Admin: 05/10/17 12:24 Dose: 1 applic Gabapentin (Neurontin Oral Liquid -) 400 mg PO BID [facility] Last Admin: 05/10/17 12:37 Dose: 400 mg Insulin Aspart (Novolog Vial Sliding Scale -) 1 vial SQ TIDAC [facility] PRN Reason: Protocol Last Admin: 05/10/17 12:24 Dose: Not Given Loperamide HCl (Imodium Liquid -) 2 mg NGT BID PRN PRN Reason: DIARRHEA Last Admin: 05/02/17 10:43 Dose: 2 mg Metoprolol Tartrate (Lopressor -) 12.5 mg PO BID [facility] Last Admin: 05/10/17 12:20 Dose: 12.5 mg Mirtazapine (Remeron -) 15 mg PO HS [facility] Last Admin: 05/09/17 22:47 Dose: 15 mg Multi-Ingredient Ointment (Zinc Oxide) 1 applic TP DAILY [facility] Last Admin: 05/10/17 12:24 Dose: 1 applic Nystatin (Nystop Powder -) 1 applic TP DAILY [facility] Last Admin: 05/10/17 12:23 Dose: 1 applic Pantoprazole Sodium (Protonix Packets For Oral Suspension -) 40 mg NGT BID [facility] Last Admin: 05/10/17 12:20 Dose: 40 mg Potassium Phos/Sodium Phos (Phos-Nak Packet -) 1 packet GT TID [facility] Last Admin: 05/10/17 05:18 Dose: 1 packet Valsartan (Diovan -) 40 mg PO DAILY [facility] Last Admin: 05/10/17 12:20 Dose: 40 mg - Objective Vital Signs: Vital Signs Temperature 97.5 F L 05/10/17 10:00 Pulse Rate 99 H 05/10/17 10:00 Respiratory Rate 20 05/10/17 10:00 Blood Pressure 120/66 05/10/17 10:00 O2 Sat by Pulse Oximetry (%) 97 05/09/17 21:00 Constitutional: Yes: No Distress, Calm Neck: Yes: Supple Cardiovascular: Yes: Regular Rate and Rhythm Respiratory: Yes: Regular, Diminished Gastrointestinal: Yes: Normal Bowel Sounds, Soft Edema: No Labs: CBC, BMP 05/10/17 06:08 05/10/17 06:08 INR, PTT INR 1.17 (0.82-1.09) H 04/26/17 07:00 Problem List - Problems (1) Atrial fibrillation Code(s): I48.91 - UNSPECIFIED ATRIAL FIBRILLATION Qualifiers: Atrial fibrillation type: paroxysmal Qualified Code(s): I48.0 - Paroxysmal atrial fibrillation (2) Diastolic dysfunction Code(s): I51.9 - HEART DISEASE, UNSPECIFIED (3) Anemia Code(s): D64.9 - ANEMIA, UNSPECIFIED Qualifiers: Bone marrow failure anemia type: pancytopenia, antineoplastic chemotherapy- induced (4) Status post insertion of percutaneous endoscopic gastrostomy (PEG) tube Code(s): Z93.1 - GASTROSTOMY STATUS (5) Dysphagia Code(s): R13.10 - DYSPHAGIA, UNSPECIFIED Qualifiers: Dysphagia type: esophageal phase Qualified Code(s): R13.10 - Dysphagia, unspecified (6) Schatzki's ring of distal esophagus Code(s): K22.2 - ESOPHAGEAL OBSTRUCTION (7) Multiple myeloma Code(s): C90.00 - MULTIPLE MYELOMA NOT HAVING ACHIEVED REMISSION Qualifiers: Multiple myeloma remission status: not in remission Qualified Code(s): C90.00 - Multiple myeloma not having achieved remission (8) CIDP (chronic inflammatory demyelinating polyneuropathy) Code(s): G61.81 - CHRONIC INFLAMMATORY DEMYELINATING POLYNEURITIS Assessment/Plan Echocardiography dated 03/26/17 revealed normal LV size and function 1. 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 Symptomatic anemia post transfusion 3. Paroxysmal atrial fibrillation with periods of rapid ventricular response currently in sinus rhythm [id number] score of 3, on A/C therapy with NOAC's/ Eliquis 4. Coronary artery disease angina pectoris 5. LV diastolic dysfunction with chronic class 0-I NYHA classification LV failure, compensated/euvolemic 6. Hypertension 7. DM 8. Hypercholesterolemia 9. Thrombocytopenia 10. 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 History of peripheral neuropathy 12. Diarrhea with + c. diff Ag PLAN: 1. Continue Eliquis 5 bid with caution and close monitoring of CBC maintaining Hg equal or > 8.0 2. Continue Lopressor 12.5 bid hemodynamics permitting 3. D/aleksandr Lipitor 40 qhs 4. Continue Diovan 40 qd hemodynamics permitting, post 2 days IVIG for CIDP, plan for q3 month as needed for flare 5. Initiate PT->SNF, chopped diet
--- NOTE | 2017-05-10 15:44 | PN ---
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 He is tolerating all without regurgitation. PEG feedings on hold, and staff flushing PEG to keep functioning. Appetite is limited. Suggest f/u by RD at [place] and calorie count. Encourage PO supplements.
--- NOTE | 2017-05-10 20:11 | PN ---
Progress Note (short form) - Note Progress Note: Patient seen and examined Feels well. Denies any complaints Last Vital Signs Temp Pulse Resp BP Pulse Ox 98.7 F 108 H 20 103/61 94 L 05/09/17 14:40 05/09/17 14:40 05/09/17 14:40 05/09/17 14:40 05/08/17 20:49 Cor: RSR, No murmurs, No gallops Lungs: decreased at bases Abd: Soft, Normal bowel sounds, No organomegaly Ext:no edema Abnormal Lab Results 05/09/17 05/09/17 05:30 05:30 RBC 2.55 L Hgb 8.3 L Hct 26.2 L MCV 102.9 H MCHC 31.7 L RDW 19.0 H Plt Count 98 L Sodium 146 H Chloride 112 H Anion Gap 7 L Creatinine 0.6 L Calcium 7.2 L AST 184 H D ALT 93 H D Alkaline Phosphatase 123 H Albumin 1.9 L Active Medications Acetaminophen (Tylenol -) 650 mg PO Q6H PRN PRN Reason: FEVER OR PAIN Last Admin: 05/08/17 23:28 Dose: 650 mg Apixaban (Eliquis -) 5 mg PO BID [facility] Last Admin: 05/09/17 12:51 Dose: 5 mg Bacitracin (Bacitracin -) 1 applic TP BID [facility] Last Admin: 05/09/17 12:55 Dose: Not Given Clotrimazole (Mycelex Mary's -) 10 mg PO 5XD [facility] Stop: 05/09/17 23:59 Last Admin: 05/09/17 16:09 Dose: Not Given Gabapentin (Neurontin Oral Liquid -) 400 mg PO BID [facility] Last Admin: 05/09/17 12:55 Dose: 400 mg Insulin Aspart (Novolog Vial Sliding Scale -) 1 vial SQ TIDAC [facility] PRN Reason: Protocol Last Admin: 05/09/17 12:46 Dose: Not Given Loperamide HCl (Imodium Liquid -) 2 mg NGT BID PRN PRN Reason: DIARRHEA Last Admin: 05/02/17 10:43 Dose: 2 mg Metoprolol Tartrate (Lopressor -) 12.5 mg PO BID [facility] Last Admin: 05/09/17 12:49 Dose: Not Given Mirtazapine (Remeron -) 15 mg PO HS [facility] Last Admin: 05/08/17 22:29 Dose: 15 mg Multi-Ingredient Ointment (Zinc Oxide) 1 applic TP DAILY [facility] Last Admin: 05/09/17 13:01 Dose: 1 applic Nystatin (Nystop Powder -) 1 applic TP DAILY [facility] Last Admin: 05/09/17 13:01 Dose: 1 applic Pantoprazole Sodium (Protonix Packets For Oral Suspension -) 40 mg NGT BID [facility] Last Admin: 05/09/17 12:50 Dose: 40 mg Potassium Phos/Sodium Phos (Phos-Nak Packet -) 1 packet GT TID [facility] Last Admin: 05/09/17 06:43 Dose: 1 packet Valsartan (Diovan -) 40 mg PO DAILY [facility] Last Admin: 05/09/17 12:49 Dose: Not Given A/P 71 y/o patient with myeloma, on maintenance dick/dex, now with low grade fevers, aspiration myeloma protein studies show remission neuro consult appreciated -- 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 s/p IVIG. To get IVIG Q 3months or more frequently depending on clinical status abnormal LFTs d/c atorvastatin u/s -- fatty liver needs f/u monitoring closely mild thrombocytopenia--blood cx neg.
[2017-05-10] MEDS: MIRTAZAPINE 15 MG TABLET (FP) PO SCH (21:21)
[2017-05-11] MEDS: NAPH,MB-DB/K PH,MBDB POWDER PACKET GT SCH ×3 (06:22→21:47)
[2017-05-11] MEDS: INSULIN SLIDING SCALE (NOVOLOG) 1 VIAL SQ SCH ×3 (06:22→17:05)
--- NOTE | 2017-05-11 09:10 | DS ---
Physical Examination Vital Signs: Vital Signs Temperature 98 F 05/11/17 06:00 Pulse Rate 101 H 05/11/17 06:00 Respiratory Rate 20 05/11/17 06:00 Blood Pressure 95/63 05/11/17 06:00 O2 Sat by Pulse Oximetry (%) 94 L 05/10/17 21:00 Findings/Remarks: feels well no complaints Alert and awake tolerating diet No diarrhea Afebrile Constitutional: Yes: No Distress Eyes: Yes: Conjunctiva Clear Neck: Yes: Supple Cardiovascular: Yes: Regular Rate and Rhythm Respiratory: Yes: CTA Bilaterally Gastrointestinal: Yes: Soft, Other (G-tube in place) Edema: No Neurological: Yes: Alert Psychiatric: Yes: Alert Labs: CBC, BMP 05/10/17 06:08 05/10/17 06:08 Discharge Summary Reason For Visit: SOB Current Active Problems Acute hypernatremia (Acute) Anemia (Acute) CAD (coronary artery disease) (Acute) CIDP (chronic inflammatory demyelinating polyneuropathy) (Acute) Diabetes mellitus (Acute) Diarrhea (Acute) Dysphagia (Acute) Dysphagia (Acute) HTN (hypertension) (Acute) Hypercholesterolemia (Acute) Limbal stem cell transplant failure (Acute) Multiple myeloma (Acute) Pneumonia (Acute) SOB (shortness of breath) (Acute) Schatzki's ring of distal esophagus (Acute) Status post insertion of percutaneous endoscopic gastrostomy (PEG) tube (Acute) Hospital Course: "The patient is a 71 year old male, with a significant past medical history of afib (on coumadin), diabetes, multiple myeloma, HTN, DL and osteoarthritis of knees who presents to ER with worsening SOB. The patient has also complaints of progressively worsening generalized weakness. This has been progressing over the past week. Denies CP. Patient notes being weak and being physically exhausted while taking off his clothes. He denies any recent fevers, chills, headache or dizziness. He denies any recent nausea, vomit, diarrhea or constipation. He denies any recent chest pain. He denies any recent dysuria, frequency, urgency or hematuria. Denies new leg swelling, no recent travel. Pt was sent in by Dr. Gomez out of concern that pt may be anemic. pt admitted to hospital pt not actively bleeding pt seen by gi egd done for dysphagia- mild gastritis swallowing eval also done- ok seen by ent - exam ok ct head -ve ct neck -no acute pathology pt also treated for pneumonia with abx pt followed by hematology/ i/d , gi as well as cardiology ct abd was also done found to have myeloma in remission patient's hospital course complicated by--difficulty swallowing Underwent EGD also as well as dilation for the stricture Not much improvement patient seen by a neurologist--suggested inflammatory neuropathy also contributing Given course of immunoglobulin Patient significantly improved after that Now stable for discharge Recently slight elevation of LFTs--- patient has no abdominal pain Ultrasound abdomen--- done yesterday--- no acute issues Will monitor in the fci Stable for discharge Medications reconciled Discharge time-40 minutes in documenting examination as well as coordinating care Discussed with nursing staff as well as caseworker protective services Condition: Improved - Instructions Referrals: Avtar Melchor MD [Primary Care Provider] - Disposition: [facility] - Home Medications Comprehensive Discharge Medication List: Ambulatory Orders Atorvastatin Ca [Lipitor] 40 mg PO HS 10/04/16 Gabapentin 400 mg PO BID 10/04/16 Oxycodone Sr [Oxycontin] 10 mg PO Q6H PRN 10/04/16 Apixaban [Eliquis -] 5 mg PO BID 30 Days #60 tablet 03/27/17 Diltiazem Cd [Cardizem Cd -] 120 mg PO DAILY #30 cap.cd.24h 03/27/17 Metformin HCl [Glucophage -] 500 mg PO DAILY #30 tablet 03/28/17 Acetaminophen [Tylenol .Regular Strength -] 650 mg PO Q6H PRN tablet 04/18/17 Amoxicillin/Potassium Clav [Augmentin 875-125 Tablet] 1 each PO BID #10 tablet MDD 2 04/18/17 Docusate Sodium [Colace -] 100 mg PO BID capsule 04/18/17 Pantoprazole Sodium [Protonix -] 20 mg PO DAILY tablet.ec 04/18/17 Polyethylene Glycol 3350 [Miralax 119 gm Btl -] 17 gm PO DAILY bottle 04/18/17 Apixaban [Eliquis -] 5 mg PO BID tablet 05/03/17 Bacitracin - [Bacitracin Topical Ointment -] 1 applic TP BID tube 05/03/17 Insulin Sliding Scale [Novolog Vial Sliding Scale -] 1 vial SQ TIDAC units Metoprolol Tartrate [Lopressor -] 25 mg PO BID #60 tablet 05/03/17 Mirtazapine [Remeron -] 15 mg PO HS tablet 05/03/17 Naph,Mb-Db/K pH,Mbdb [PHOS-NaK PACKET -] 1 packet GT TID pow 05/03/17 Nystatin Powder [Nystop Powder -] 1 applic TP DAILY applic 05/03/17 Pantoprazole Suspension [Protonix Packets For Oral Suspension -] 40 mg NGT BID packet 05/03/17 Zinc Oxide 1 applic TP DAILY tube 05/03/17 Clotrimazole [Mycelex -] 10 mg PO 5XD #1 maxim 05/11/17 Valsartan [Diovan] 40 mg PO DAILY tablet 05/11/17 ivig q 3 months
[2017-05-11] MEDS: ZINC OXIDE 20% TOPICAL OINTMENT 30 GM TUBE TP SCH (09:41)
[2017-05-11] MEDS: METOPROLOL TARTRATE 25 MG TABLET (FP) PO SCH ×2 (09:42→21:46)
[2017-05-11] MEDS: APIXABAN 5 MG TABLET PO SCH ×2 (09:42→21:46)
[2017-05-11] MEDS: VALSARTAN 40 MG TABLET (FP) PO SCH (09:43)
[2017-05-11] MEDS: BACITRACIN 15 GM TUBE TOPICAL OINTMENT TP SCH ×2 (09:43→21:47)
[2017-05-11] MEDS: PANTOPRAZOLE SOD 40 MG SUSPENSION PACKET NGT SCH ×2 (09:43→23:01)
[2017-05-11] MEDS: NYSTATIN POWDER 100,000 UNITS/GM - 15 GM TOPICAL POWDER TP SCH (09:46)
[2017-05-11] MEDS: GABAPENTIN 250 MG/5 ML ORAL SOLUTION, 470 ML BOTTLE PO SCH ×2 (10:30→21:46)
[2017-05-11 10:58] LABS: BASO % 1.3 % (0-2.0); EOS % 1.4 % (0-4.5); HEMATOCRIT 31.2 % (35.4-49); HEMOGLOBIN 9.9 GM/dL (11.7-16.9); LYMPH % 18.5 % (8-40); MCH 32.5 pg (25.7-33.7); MCHC 31.8 g/dl (32.0-35.9); MEAN PLT VOLUME 8.7 fl (7.5-11.1); MONO % 11.8 % (3.8-10.2); PLATELET COUNT 103 K/MM3 (134-434); RBC 3.05 M/mm3 (4.00-5.60); RDW 18.7 % (11.9-15.9); WHITE BLOOD COUNT 5.1 K/mm3 (4.0-10.0)
--- NOTE | 2017-05-11 11:04 | PN ---
Progress Note (short form) - Note Progress Note: PULMONARY Agustina shortness of breath, cough or wheezing. No abdominal pain or diarrhea. Last Vital Signs Temp Pulse Resp BP Pulse Ox 98 F 107 H 20 95/63 96 05/11/17 09:00 05/11/17 09:00 05/11/17 09:00 05/11/17 09:00 05/11/17 09:00 Gen: NAD at rest Heart: RRR Lung: decreased breath sounds at the bases Abd: soft, nontender, + PEG Ext: no edema Active Medications Acetaminophen (Tylenol -) 650 mg PO Q6H PRN PRN Reason: FEVER OR PAIN Last Admin: 05/09/17 22:50 Dose: 650 mg Apixaban (Eliquis -) 5 mg PO BID [facility] Last Admin: 05/11/17 09:42 Dose: 5 mg Bacitracin (Bacitracin -) 1 applic TP BID [facility] Last Admin: 05/11/17 09:43 Dose: 1 applic Gabapentin (Neurontin Oral Liquid -) 400 mg PO BID [facility] Last Admin: 05/10/17 21:20 Dose: 400 mg Insulin Aspart (Novolog Vial Sliding Scale -) 1 vial SQ TIDAC [facility] PRN Reason: Protocol Last Admin: 05/11/17 06:22 Dose: Not Given Loperamide HCl (Imodium Liquid -) 2 mg NGT BID PRN PRN Reason: DIARRHEA Last Admin: 05/02/17 10:43 Dose: 2 mg Metoprolol Tartrate (Lopressor -) 12.5 mg PO BID [facility] Last Admin: 05/11/17 09:42 Dose: 12.5 mg Mirtazapine (Remeron -) 15 mg PO HS [facility] Last Admin: 05/10/17 21:21 Dose: 15 mg Multi-Ingredient Ointment (Zinc Oxide) 1 applic TP DAILY [facility] Last Admin: 05/11/17 09:41 Dose: 1 applic Nystatin (Nystop Powder -) 1 applic TP DAILY [facility] Last Admin: 05/11/17 09:46 Dose: 1 applic Pantoprazole Sodium (Protonix Packets For Oral Suspension -) 40 mg NGT BID [facility] Last Admin: 05/11/17 09:43 Dose: 40 mg Potassium Phos/Sodium Phos (Phos-Nak Packet -) 1 packet GT TID [facility] Last Admin: 05/11/17 06:22 Dose: 1 packet Valsartan (Diovan -) 40 mg PO DAILY [facility] Last Admin: 05/11/17 09:43 Dose: 40 mg A/P CIDP Dysphagia s/p PEG placement Paroxysmal Atrial Fibrillation CAD LV Diastolic Dysfunction HTN DM Hypercholesterolemia - PO as tolerated - aspiration precautions - rate controlled - continue anticoagulation - d/c planning to SNF
[2017-05-11 11:13] LABS: ALBUMIN 2.2 g/dl (3.4-5.0); ANION GAP 9 (8-16); BLOOD UREA NITROGEN 15 mg/dL (7-18); CHLORIDE 107 mmol/L (98-107); CO2 24 mmol/L (21-32); GLUCOSE,RANDOM 127 mg/dL (74-106); POTASSIUM 3.6 mmol/L (3.5-5.1); SODIUM 140 mmol/L (136-145)
[2017-05-11 11:16] LABS: ALK PHOS 113 U/L (45-117); BILIRUBIN,TOTAL 0.5 mg/dL (0.2-1.0); CREATININE 0.7 mg/dL (0.7-1.3); SGOT/AST 164 U/L (15-37); SGPT/ALT 128 U/L (12-78); TOT PROT 6.8 g/dl (6.4-8.2)
--- NOTE | 2017-05-11 11:45 | PN ---
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 Progress Note: Selected Entries 05/08/17 05/08/17 05/08/17 09:56 14:46 18:00 Breakfast 75% Lunch 75% Supper 75% 05/09/17 05/09/17 05/09/17 09:48 14:40 18:00 Breakfast 50% Lunch 75% Supper 25% 05/10/17 13:23 Breakfast Lunch 25% Supper Selected Entries 05/10/17 05/10/17 05/10/17 05:40 10:00 13:23 Breakfast Temperature 97.3 F L 97.5 F L 97 F L 05/10/17 05/10/17 05/11/17 18:05 22:00 02:00 Breakfast Temperature 97.8 F 98 F 97.6 F 05/11/17 05/11/17 05/11/17 06:00 09:00 09:37 Breakfast 50% Temperature 98 F 98 F Laboratory Tests 05/11/17 10:40 WBC 5.1 D Now on reg diet, (chopped per RD notes?) thin liquids, meds by mouth. He is tolerating all without regurgitation. PEG feedings on hold, and staff flushing PEG to keep functioning. Appetite is improving. Suggest f/u by RD at [place] and calorie count. PO as tolerated aspiration precautions Encourage PO supplements.
--- NOTE | 2017-05-11 12:48 | PN ---
Progress Note, Physician Chief Complaint: Able to swallow solid food History of Present Illness: Patient was seen and examined. Chart was reviewed Not in distress. Awake and alert. Denies chest pain, SOB or palpitations - Current Medication List Current Medications: Active Medications Acetaminophen (Tylenol -) 650 mg PO Q6H PRN PRN Reason: FEVER OR PAIN Last Admin: 05/09/17 22:50 Dose: 650 mg Apixaban (Eliquis -) 5 mg PO BID [facility] Last Admin: 05/11/17 09:42 Dose: 5 mg Bacitracin (Bacitracin -) 1 applic TP BID [facility] Last Admin: 05/11/17 09:43 Dose: 1 applic Gabapentin (Neurontin Oral Liquid -) 400 mg PO BID [facility] Last Admin: 05/11/17 10:30 Dose: 400 mg Insulin Aspart (Novolog Vial Sliding Scale -) 1 vial SQ TIDAC [facility] PRN Reason: Protocol Last Admin: 05/11/17 11:16 Dose: Not Given Loperamide HCl (Imodium Liquid -) 2 mg NGT BID PRN PRN Reason: DIARRHEA Last Admin: 05/02/17 10:43 Dose: 2 mg Metoprolol Tartrate (Lopressor -) 12.5 mg PO BID [facility] Last Admin: 05/11/17 09:42 Dose: 12.5 mg Mirtazapine (Remeron -) 15 mg PO HS [facility] Last Admin: 05/10/17 21:21 Dose: 15 mg Multi-Ingredient Ointment (Zinc Oxide) 1 applic TP DAILY [facility] Last Admin: 05/11/17 09:41 Dose: 1 applic Nystatin (Nystop Powder -) 1 applic TP DAILY [facility] Last Admin: 05/11/17 09:46 Dose: 1 applic Pantoprazole Sodium (Protonix Packets For Oral Suspension -) 40 mg NGT BID [facility] Last Admin: 05/11/17 09:43 Dose: 40 mg Potassium Phos/Sodium Phos (Phos-Nak Packet -) 1 packet GT TID [facility] Last Admin: 05/11/17 06:22 Dose: 1 packet Valsartan (Diovan -) 40 mg PO DAILY [facility] Last Admin: 05/11/17 09:43 Dose: 40 mg - Objective Vital Signs: Vital Signs Temperature 98 F 05/11/17 09:00 Pulse Rate 107 H 05/11/17 09:00 Respiratory Rate 20 05/11/17 09:00 Blood Pressure 95/63 05/11/17 09:00 O2 Sat by Pulse Oximetry (%) 96 05/11/17 09:00 Eyes: Yes: PERRL HENT: Yes: Atraumatic Neck: Yes: Supple Cardiovascular: Yes: Regular Rate and Rhythm, S1, S2 Respiratory: Yes: CTA Bilaterally Gastrointestinal: Yes: Normal Bowel Sounds, Soft. No: Tenderness Edema: No Labs: CBC, BMP 05/11/17 10:40 05/11/17 10:40 Problem List - Problems (1) CAD (coronary artery disease) Code(s): I25.10 - ATHSCL HEART DISEASE OF [place] CORONARY ARTERY W/O ANG PCTRS Qualifiers: Coronary Disease-Associated Artery/Lesion type: [place] artery [place] vs. transplanted heart: [place] heart Associated angina: without angina Qualified Code(s): I25.10 - Atherosclerotic heart disease of [place] coronary artery without angina pectoris (2) HTN (hypertension) Code(s): I10 - ESSENTIAL (PRIMARY) HYPERTENSION Qualifiers: Hypertension type: essential hypertension Qualified Code(s): I10 - Essential (primary) hypertension (3) Hypercholesterolemia Code(s): E78.00 - PURE HYPERCHOLESTEROLEMIA, UNSPECIFIED (4) Diabetes mellitus Code(s): E11.9 - TYPE 2 DIABETES MELLITUS WITHOUT COMPLICATIONS Qualifiers: Diabetes mellitus type: type 2 (5) Anemia Code(s): D64.9 - ANEMIA, UNSPECIFIED Qualifiers: Bone marrow failure anemia type: pancytopenia, antineoplastic chemotherapy- induced (6) Dysphagia Code(s): R13.10 - DYSPHAGIA, UNSPECIFIED Qualifiers: Dysphagia type: other dysphagia Qualified Code(s): R13.19 - Other dysphagia (7) SOB (shortness of breath) Code(s): R06.02 - SHORTNESS OF BREATH (8) Atrial fibrillation Code(s): I48.91 - UNSPECIFIED ATRIAL FIBRILLATION Qualifiers: Atrial fibrillation type: paroxysmal Qualified Code(s): I48.0 - Paroxysmal atrial fibrillation (9) Diastolic dysfunction Code(s): I51.9 - HEART DISEASE, UNSPECIFIED (10) Multiple myeloma in remission Code(s): C90.01 - MULTIPLE MYELOMA IN REMISSION (11) Thrombocytopenia Code(s): D69.6 - THROMBOCYTOPENIA, UNSPECIFIED Assessment/Plan 1. 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 Symptomatic anemia post transfusion 3. Paroxysmal atrial fibrillation with periods of rapid ventricular response currently in sinus rhythm [id number] score of 3, on A/C therapy with NOAC ( Eliquis) 4. Coronary artery disease angina pectoris 5. LV diastolic dysfunction with chronic class 0-I NYHA classification LV failure, compensated/euvolemic 6. Hypertension 7. DM 8. Hypercholesterolemia 9. Thrombocytopenia 10. History of multiple myeloma post stem cell transplant 11. History of peripheral neuropathy 12. Diarrhea with (+) c. diff antigen PLAN: 1. Continue Eliquis 5 bid with caution and close monitoring of CBC maintaining Hgb equal or > 8.0 2. Continue Lopressor 12.5 bid - hemodynamics permitting 3. Continue Diovan 40 qd hemodynamics permitting 4. Present therapy for multiple myeloma 5. Eventual SNF placement Further plans are to follow Dmitri Ngo MD
[2017-05-11] MEDS ORDERED: SODIUM CHLORIDE 250 ML IV ONE (14:45)
[2017-05-11] MEDS ORDERED: SODIUM CHLORIDE 1,000 ML IV ONE (15:45)
--- NOTE | 2017-05-11 17:24 | PN ---
Progress Note (short form) - Note Progress Note: Patient seen and examined Tolerating p.o. Frustrated about LOS Hypotensive today Abnormalities of LFT's - mildly improved today Last Vital Signs Temp Pulse Resp BP Pulse Ox 98.5 F 93 H 16 90/66 96 05/11/17 14:09 05/11/17 16:18 05/11/17 16:18 05/11/17 16:18 05/11/17 09:00 HEENT: anisocoria, mild conjunctival erythema Oropharynx: No thrush, No mucositis Neck: Supple Nodes: Without adenopathy Cor: RSR, No murmurs, No gallops Lungs: diminished breath sounds bilaterally Abd: Soft, Normal bowel sounds, No organomegaly, PEG site clean Ext:No significant edema Skin: No rashes, Integument intact CBC, BMP 05/11/17 10:40 05/11/17 10:40 Abnormal Lab Results 05/11/17 05/11/17 10:40 10:40 RBC 3.05 L Hgb 9.9 L Hct 31.2 L MCV 102.0 H MCHC 31.8 L RDW 18.7 H Plt Count 103 L Monocytes % 11.8 H Random Glucose 127 H D Calcium 8.0 L AST 164 H D ALT 128 H Albumin 2.2 L Impression: Myeloma in remission CIDP Glaucoma S/P feeding tube Abnormal LFT's Hyptension Plan: Monitor BP and LFT's Problem List - Problems (1) Anemia Code(s): D64.9 - ANEMIA, UNSPECIFIED Qualifiers: Bone marrow failure anemia type: pancytopenia, antineoplastic chemotherapy- induced (2) Atrial fibrillation Code(s): I48.91 - UNSPECIFIED ATRIAL FIBRILLATION Qualifiers: Atrial fibrillation type: paroxysmal Qualified Code(s): I48.0 - Paroxysmal atrial fibrillation (3) SOB (shortness of breath) Code(s): R06.02 - SHORTNESS OF BREATH (4) Acute bacterial conjunctivitis of left eye Code(s): H10.32 - UNSPECIFIED ACUTE CONJUNCTIVITIS, LEFT EYE (5) Hypokalemia Code(s): E87.6 - HYPOKALEMIA (6) Multiple myeloma in remission Code(s): C90.01 - MULTIPLE MYELOMA IN REMISSION (7) Thrombocytopenia Code(s): D69.6 - THROMBOCYTOPENIA, UNSPECIFIED
[2017-05-11] MEDS ORDERED: PT OWN MED DRAWER 7, Y5N ONE (21:04)
[2017-05-11] MEDS: MIRTAZAPINE 15 MG TABLET (FP) PO SCH (21:47)
[2017-05-12] MEDS: INSULIN SLIDING SCALE (NOVOLOG) 1 VIAL SQ SCH ×2 (06:32→11:19)
[2017-05-12] MEDS: NAPH,MB-DB/K PH,MBDB POWDER PACKET GT SCH (06:32)
[2017-05-12] MEDS ORDERED: PT OWN MED DRAWER 7, Y5N ONE (09:37)
[2017-05-12] MEDS: NYSTATIN POWDER 100,000 UNITS/GM - 15 GM TOPICAL POWDER TP SCH (09:40)
[2017-05-12] MEDS: METOPROLOL TARTRATE 25 MG TABLET (FP) PO SCH (09:40)
[2017-05-12] MEDS: APIXABAN 5 MG TABLET PO SCH (09:40)
[2017-05-12] MEDS: GABAPENTIN 250 MG/5 ML ORAL SOLUTION, 470 ML BOTTLE PO SCH (09:40)
[2017-05-12] MEDS: VALSARTAN 40 MG TABLET (FP) PO SCH (09:40)
[2017-05-12] MEDS: PANTOPRAZOLE SOD 40 MG SUSPENSION PACKET NGT SCH (09:40)
[2017-05-12] MEDS: BACITRACIN 15 GM TUBE TOPICAL OINTMENT TP SCH (09:41)
[2017-05-12] MEDS: ZINC OXIDE 20% TOPICAL OINTMENT 30 GM TUBE TP SCH (09:41)
--- NOTE | 2017-05-12 10:03 | PN ---
Progress Note, Physician History of Present Illness: comfortable d/c held yesterday due to bp issues pt feels fine . no complains wants to go to rehab eating well. no diarrhea denies abd pain. lfts trending down. - Current Medication List Current Medications: Active Medications Acetaminophen (Tylenol -) 650 mg PO Q6H PRN PRN Reason: FEVER OR PAIN Last Admin: 05/09/17 22:50 Dose: 650 mg Apixaban (Eliquis -) 5 mg PO BID [facility] Last Admin: 05/12/17 09:40 Dose: 5 mg Bacitracin (Bacitracin -) 1 applic TP BID [facility] Last Admin: 05/12/17 09:41 Dose: 1 applic Gabapentin (Neurontin Oral Liquid -) 400 mg PO BID [facility] Last Admin: 05/12/17 09:40 Dose: 400 mg Insulin Aspart (Novolog Vial Sliding Scale -) 1 vial SQ TIDAC [facility] PRN Reason: Protocol Last Admin: 05/12/17 06:32 Dose: Not Given Loperamide HCl (Imodium Liquid -) 2 mg NGT BID PRN PRN Reason: DIARRHEA Last Admin: 05/02/17 10:43 Dose: 2 mg Metoprolol Tartrate (Lopressor -) 12.5 mg PO BID [facility] Last Admin: 05/12/17 09:40 Dose: Not Given Mirtazapine (Remeron -) 15 mg PO HS [facility] Last Admin: 05/11/17 21:47 Dose: 15 mg Multi-Ingredient Ointment (Zinc Oxide) 1 applic TP DAILY [facility] Last Admin: 05/12/17 09:41 Dose: 1 applic Nystatin (Nystop Powder -) 1 applic TP DAILY [facility] Last Admin: 05/12/17 09:40 Dose: 1 applic Pantoprazole Sodium (Protonix Packets For Oral Suspension -) 40 mg NGT BID [facility] Last Admin: 05/12/17 09:40 Dose: 40 mg Potassium Phos/Sodium Phos (Phos-Nak Packet -) 1 packet GT TID [facility] Last Admin: 05/12/17 06:32 Dose: 1 packet Valsartan (Diovan -) 40 mg PO DAILY [facility] Last Admin: 05/12/17 09:40 Dose: 40 mg - Objective Vital Signs: Vital Signs Temperature 97.8 F 05/12/17 06:00 Pulse Rate 91 H 05/12/17 06:00 Respiratory Rate 20 05/12/17 06:00 Blood Pressure 104/69 05/12/17 06:00 O2 Sat by Pulse Oximetry (%) 96 05/11/17 21:00 Constitutional: Yes: No Distress, Calm Neck: Yes: Supple Cardiovascular: Yes: Regular Rate and Rhythm Respiratory: Yes: CTA Bilaterally Gastrointestinal: Yes: Soft Edema: No Labs: CBC, BMP 05/11/17 10:40 05/11/17 10:40 INR, PTT INR 1.17 (0.82-1.09) H 04/26/17 07:00 Problem List - Problems (1) Anemia Code(s): D64.9 - ANEMIA, UNSPECIFIED Qualifiers: Bone marrow failure anemia type: pancytopenia, antineoplastic chemotherapy- induced (2) SOB (shortness of breath) Code(s): R06.02 - SHORTNESS OF BREATH (3) Atrial fibrillation Code(s): I48.91 - UNSPECIFIED ATRIAL FIBRILLATION Qualifiers: Atrial fibrillation type: paroxysmal Qualified Code(s): I48.0 - Paroxysmal atrial fibrillation (4) Multiple myeloma in remission Code(s): C90.01 - MULTIPLE MYELOMA IN REMISSION Assessment/Plan stable will d/c today hold bp meds if bp less than 100. contact precautions discussed with nursing staff also today as well as Mani Izquierdo See d/c summary as of 05/11/17.
[2017-05-12 10:37] VITALS: BP 103/65; PULSE 100; TEMP 97.4
== END 2017-05-12 13:34 | DRG 193 ==
LOC: JER 11:01 → JERBED 16:02 → OBSVTOIN 19:10 → J4W 22:02 → J7W 04-15 14:14
PROVIDERS: ADMIT Internal Medicine; ATTEND Internal Medicine
PROC: 30233H1 Transfusion of Nonautologous Whole Blood into Peripheral Vein, Percutaneous Approach (ICD-10-PCS; 2017-04-09)
PROC: 0DD88ZX Extraction of Small Intestine, Via Natural or Artificial Opening Endoscopic, Diagnostic (ICD-10-PCS; 2017-04-13)
PROC: 0DD68ZX Extraction of Stomach, Via Natural or Artificial Opening Endoscopic, Diagnostic (ICD-10-PCS; principal; 2017-04-13 09:30)
PROC: 0CJS8ZZ Inspection of Larynx, Via Natural or Artificial Opening Endoscopic (ICD-10-PCS; 2017-04-18)
PROC: 0DH63UZ Insertion of Feeding Device into Stomach, Percutaneous Approach (ICD-10-PCS; 2017-04-26)
PROC: 0D758ZZ Dilation of Esophagus, Via Natural or Artificial Opening Endoscopic (ICD-10-PCS; 2017-04-30)
DX: J18.9 Pneumonia, unspecified organism (principal); D61.810 Antineoplastic chemotherapy induced pancytopenia; C90.01 Multiple myeloma in remission; N39.0 Urinary tract infection, site not specified; E87.0 Hyperosmolality and hypernatremia; Z43.1 Encounter for attention to gastrostomy; Z94.84 Stem cells transplant status; N17.9 Acute kidney failure, unspecified; K22.2 Esophageal obstruction; I48.0 Paroxysmal atrial fibrillation; Z79.01 Long term (current) use of anticoagulants; E11.9 Type 2 diabetes mellitus without complications; I10 Essential (primary) hypertension; E78.5 Hyperlipidemia, unspecified; Z87.891 Personal history of nicotine dependence; Z79.84 Long term (current) use of oral hypoglycemic drugs; T45.1X5S Adverse effect of antineoplastic and immunosuppressive drugs, sequela; I25.10 Atherosclerotic heart disease of native coronary artery without angina pectoris; G62.9 Polyneuropathy, unspecified; E87.6 Hypokalemia; I25.119 Atherosclerotic heart disease of native coronary artery with unspecified angina pectoris; D53.9 Nutritional anemia, unspecified; R63.0 Anorexia; Z68.28 Body mass index [BMI] 28.0-28.9, adult; K29.70 Gastritis, unspecified, without bleeding; D69.59 Other secondary thrombocytopenia; B95.3 Streptococcus pneumoniae as the cause of diseases classified elsewhere; R13.12 Dysphagia, oropharyngeal phase; B95.2 Enterococcus as the cause of diseases classified elsewhere; R19.7 Diarrhea, unspecified; B37.9 Candidiasis, unspecified; E83.39 Other disorders of phosphorus metabolism; K76.0 Fatty (change of) liver, not elsewhere classified; K44.9 Diaphragmatic hernia without obstruction or gangrene; D17.5 Benign lipomatous neoplasm of intra-abdominal organs; K21.0 Gastro-esophageal reflux disease with esophagitis; K29.80 Duodenitis without bleeding; D72.829 Elevated white blood cell count, unspecified
CPT/HCPCS: 36415; 36430; 36511; 70450-TC; 70490-TC; 70551-TC; 71010-TC; 71020-TC; 71045-TC; 71250-TC; 74019-TC; 74178-TC; 74220-TC; 74230-TC; 74240-TC; 76705-TC; 80048; 80053; 80061; 81003; 81015; 82272; 82550; 82570; 82962; 83010; 83036; 83519; 83605; 83615; 83721; 83735; 83880; 83970; 84100; 84132; 84156; 84484; 84550; 85025; 85027; 85044; 85610; 85651; 85730; 86850; 86900; 86901; 86922; 87040; 87045; 87046; 87086; 87186; 87205; 87324; 87449; 87804; 87899; 88305-TC; 92611-GN; 93005; 93010; 93970-TC; 97116-GP; 97161-GP; 99285-25; G0378; G0480; J1100; J1561; P9038; P9058

== ENCOUNTER 2017-06-24 12:28 | Inpatient (IN) | payer OTHER ==
--- NOTE | 2017-06-24 13:49 | PDOC ---
History of Present Illness - General Chief Complaint: Vomiting/Diarrhea Stated Complaint: EVALUATION Time Seen by Provider: 06/24/17 13:25 History Source: Patient Exam Limitations: No Limitations - History of Present Illness Initial Comments: 06/24/17 15:04 71 y/o M [facility] resident with PMH afib (on coumadin), DM, MM - in remission, HTN, osteoarthritis of knees, recent admission [facility] for dysphagia- end of Apr 2017 (found to have esophageal ring, possible inflamm neuropathy. Had PEG tube placement), who presents with nausea and diarrhea over the past five weeks, since hospital d/c. As per patient, while he was at [facility], he started having difficulty with PO intake. Though pt had PEG tube placed, he still has attempted PO intake and has had multiple episodes of NBNB emesis, and 3-4 loose BM's intermittently each week. Pt also endorses mild tenderness in RLQ that is constant. He denies MCDOWELL, fever, chills, SOB, or changes in urinary function. PMH: as above PsxH: PEG tube placement meds: as in chart allergies: NKDA FH: non-contributory SH: denies cigarette, alcohol or recreational drug use Past History - Past Medical History Allergies/Adverse Reactions: Allergies Allergy/AdvReac Type Severity Reaction Status Date / Time No Known Allergies Allergy Verified 04/08/17 11:08 Home Medications: Ambulatory Orders Gabapentin 300 mg PO BID 10/04/16 Acetaminophen [Tylenol .Regular Strength -] 650 mg PO Q6H PRN tablet 04/18/17 Apixaban [Eliquis -] 5 mg PO BID tablet 05/03/17 Metoprolol Tartrate [Lopressor -] 25 mg PO BID #60 tablet 05/03/17 Mirtazapine [Remeron -] 15 mg PO HS tablet 05/03/17 Naph,Mb-Db/K pH,Mbdb [PHOS-NaK PACKET -] 1 packet GT TID pow 05/03/17 Nystatin Powder [Nystop Powder -] 1 applic TP DAILY applic 05/03/17 Zinc Oxide 1 applic TP DAILY tube 05/03/17 Valsartan [Diovan] 40 mg PO DAILY tablet 05/11/17 Insulin Sliding Scale [Novolog Vial Sliding Scale -] 1 vial SQ ASDIR 06/24/17 Latanoprost 0.005% Eye Drops [Xalatan 0.005% Eye Drops -] 1 drop HS 06/24/17 Omeprazole 40 mg PO BID 06/24/17 Saliva Stimulant Comb. No.3 [Biotene Moisturizing Mouth] 44.3 ml MM DAILY Vancomycin HCl 125 mg PO QID 06/24/17 Cancer: Yes (MULTIPLE MYELOMA) CVA: Yes (tia) COPD: Yes (tia) Diabetes: Yes HTN: Yes Hypercholesterolemia: Yes - Immunization History Immunization Up to Date: Yes - Suicide/Smoking/Psychosocial Hx Smoking History: Unknown if ever smoked Have you smoked in the past 12 months: No If you are a former smoker, when did you quit?: 40yrs Information on smoking cessation initiated: No Hx Alcohol Use: No Drug/Substance Use Hx: No Substance Use Type: None Hx Substance Use Treatment: No Review of Systems - Review of Systems Able to Perform ROS?: Yes Is the patient limited Divehi proficient: No ABD/GI: Yes: Diarrhea, Nausea, Poor Appetite, Poor Fluid Intake, Vomiting All Other Systems: Reviewed and Negative *Physical Exam - Vital Signs Last Vital Signs Temp Pulse Resp BP Pulse Ox 97.8 F 98 H 18 108/75 95 06/24/17 12:46 06/24/17 12:46 06/24/17 12:46 06/24/17 12:46 06/24/17 12:46 - Physical Exam General Appearance: Yes: Other (Pale) HEENT: positive: EOMI, REGINALD Neck: positive: Supple Respiratory/Chest: positive: Lungs Clear, Normal Breath Sounds Cardiovascular: positive: Regular Rhythm, Regular Rate, S1, S2 Vascular Pulses: Dorsalis-Pedis (R): 2+, Doralis-Pedis (L): 2+ Gastrointestinal/Abdominal: positive: Normal Bowel Sounds, Soft, Tenderness ( RLQ TTP), Other (PEG site intact, no discharge ) Integumentary: positive: Pale Neurologic: positive: design analyst II-XII NML intact ED Treatment Course - LABORATORY CBC & Chemistry Diagram: 06/24/17 15:33 06/24/17 15:37 Medical Decision Making - Medical Decision Making 06/24/17 16:19 71 y/o M [place] resident with PMH afib (on coumadin), DM, MM - in remission, HTN, osteoarthritis of knees, recent admission [facility] for dysphagia- end of Apr 2017 (found to have esophageal ring, possible inflamm neuropathy. Had PEG tube placement), who presents with nausea and diarrhea over the past five weeks, since hospital d/c. Current differentials include gastroenteritis, C diff infection, r/o appendicitis as pt with significant RLQ pain. Will get general labs - cbc, cmp. INR level as pt on coumadin, c.diff toxin and ag, CT w/IV contrast to r/o appendicitis. 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 Andrade *DC/Admit/Observation/Transfer Diagnosis at time of Disposition: Dysphagia, Nausea & vomiting, Colon wall thickening, CIDP (chronic inflammatory demyelinating polyneuropathy) - Discharge Dispostion Condition at time of disposition: Guarded Admit: Yes - Referrals Referrals: Kisha Fuller MD [Staff Physician] - Kristal Cannon MD [Primary Care Provider] - - Patient Instructions Printed Discharge Instructions: DI for Nausea -- Adult Additional Instructions: Please call the doctor chiropractic and schedule and appointment for further eval of colonic thickening found on your CT - Post Discharge Activity
[2017-06-24 16:16] LABS: BASO % 0.6 % (0-2.0); EOS % 2.3 % (0-4.5); HEMATOCRIT 36.7 % (35.4-49); HEMOGLOBIN 12.3 GM/dL (11.7-16.9); LYMPH % 18.2 % (8-40); MCH 34.9 pg (25.7-33.7); MCHC 33.6 g/dl (32.0-35.9); MEAN CELL VOLUME 103.8 fl (80-96); MONO % 10.2 % (3.8-10.2); NEUT % 68.7 % (42.8-82.8); PLATELET COUNT 167 K/MM3 (134-434); RBC 3.54 M/mm3 (4.00-5.60); WHITE BLOOD COUNT 5.9 K/mm3 (4.0-10.0)
[2017-06-24 16:29] LABS: INR 1.21 (0.82-1.09); PROTHROMBIN TIME (PATIENT) 13.7 SEC (9.98-11.88)
[2017-06-24 18:12] LABS: ALBUMIN 2.9 g/dl (3.4-5.0); ANION GAP 11 (8-16); BLOOD UREA NITROGEN 17 mg/dL (7-18); CALCIUM 8.6 mg/dL (8.5-10.1); CHLORIDE 106 mmol/L (98-107); CO2 26 mmol/L (21-32); CREATININE 0.7 mg/dL (0.7-1.3); GLUCOSE,RANDOM 111 mg/dL (74-106); POTASSIUM 3.9 mmol/L (3.5-5.1); SGOT/AST 31 U/L (15-37); SODIUM 143 mmol/L (136-145)
[2017-06-24 18:14] LABS: ALK PHOS 78 U/L (45-117); BILIRUBIN,TOTAL 0.7 mg/dL (0.2-1.0); SGPT/ALT 34 U/L (12-78); TOT PROT 6.3 g/dl (6.4-8.2)
--- NOTE | 2017-06-24 19:07 | PDOC ---
Attending Attestation - HPI HPI: 06/27/17 11:19 The patient is a 71 year old male with a significant PMH of AFib (on Coumadin), multiple myeloma in remission, diabetes, HTN and recent PEG tube placement 2/2 dysphagia from an esophageal ring who presents to the emergency department from [facility] with a 5 week history of vomiting and diarrhea s/p PEG tube placement. The patient reports getting his PEG tube placed about 5 weeks ago and since then has attempted to intermittently eat orally, but has vomited every time he tries. He also notes about 3-4 episodes of diarrhea daily. Pt also reports intermittent RLQ pain for 4 days. As per [facility] staff, the patient was sent over for evaluation of decreased tolerance to food. Denies CP, SOB, fevers, chills, headache, focal weakness/numbness. Allergies: NKA PCP: Dr. Kristal Cannon - Physicial Exam PE: 06/27/17 11:19 GENERAL: Awake, alert, and fully oriented, in no acute distress HEAD: No signs of trauma EYES: PERRLA, EOMI, sclera anicteric, conjunctiva clear ENT: Auricles normal inspection, hearing grossly normal, nares patent, oropharynx clear without exudates. Moist mucosa NECK: Normal ROM, supple, no lymphadenopathy, JVD, or masses LUNGS: Breath sounds equal, clear to auscultation bilaterally. No wheezes, and no crackles HEART: Regular rate and rhythm, normal S1 and S2, no murmurs, rubs or gallops ABDOMEN: Soft, +RLQ ttp. No distention, rebound/guarding. 20F PEG tube in place in LUQ with no surrounding erythema or tenderness. : No diarrhea in diaper EXTREMITIES: Normal range of motion, no edema. No clubbing or cyanosis. No cords, erythema, or tenderness BACK: No midline spinal tenderness in cervical/thoracic/lumbar region NEUROLOGICAL: Normal speech, cranial nerves intact, negative pronator drift, 5/ 5 strength in all 4 extremities, normal sensation to light touch in all 4 extremities, normal cerebellar exam, normal reflexes and tone SKIN: Warm, Dry, normal turgor, no rashes or lesions noted. <Vahid Faria - Last Filed: 06/27/17 11:19> - Resident Resident Name: Samantha Carranza - ED Attending Attestation I have performed the following: I have examined & evaluated the patient, The case was reviewed & discussed with the resident, I agree w/resident's findings & plan, Exceptions are as noted - Medical Decision Making 06/24/17 19:01 71yo M w MMP including MM in remission, PEG tube 2/2 dysphagia p/w vomiting, diarrhea, and RLQ pain. Pt sent in by NH since he has been vomiting when he attempts to eat PO (although he is not supposed to) but also for diarrhea. VItals wnl, exam with RLQ ttp. Unclear etiology of diarrhea, but possible colitis. Given RLQ ttp, will obtain CTAP to r/o appy. Pt likely should not be taking anything PO, reiterated this with patient. 06/24/17 17:00 Pt signed out to evening attending for further mgmt and dispo. Labs and CTAP pending. <Dudley Roman - Last Filed: 06/29/17 08:18>
--- NOTE | 2017-06-24 20:32 | PDOC ---
*Physical Exam - Vital Signs Last Vital Signs Temp Pulse Resp BP Pulse Ox 98.1 F 75 16 102/64 96 06/24/17 18:10 06/24/17 18:10 06/24/17 18:10 06/24/17 18:10 06/24/17 18:10 - Physical Exam Comments: 06/24/17 20:24 Gen: aaox3, nad heart: +s1s2 reg lungs: cta b/l abd: soft, mild RLQ ttp, no rebound or guarding, peg in place without surrounding erythema or drainage ext: no c/c/e ED Treatment Course - LABORATORY CBC & Chemistry Diagram: 06/24/17 15:33 06/24/17 15:37 - ADDITIONAL ORDERS Additional order review: Laboratory Results 06/24/17 06/24/17 06/24/17 15:37 15:33 15:33 PT with INR 13.70 H INR 1.21 H Sodium 143 Cancelled Potassium 3.9 Cancelled Chloride 106 Cancelled Carbon Dioxide 26 Cancelled Anion Gap 11 Cancelled BUN 17 Cancelled Creatinine 0.7 Cancelled Creat Clearance w eGFR > 60 Cancelled Random Glucose 111 H Cancelled Calcium 8.6 Cancelled Total Bilirubin 0.7 D Cancelled AST 31 D Cancelled ALT 34 D Cancelled Alkaline Phosphatase 78 D Cancelled Total Protein 6.3 L Cancelled Albumin 2.9 L D Cancelled 06/24/17 15:33 RBC 3.54 L MCV 103.8 H MCHC 33.6 RDW 17.0 H MPV 9.0 Neutrophils % 68.7 Lymphocytes % 18.2 Monocytes % 10.2 Eosinophils % 2.3 Basophils % 0.6 Medical Decision Making - Medical Decision Making 06/24/17 20:25 pt signed out pending labs and ct 06/24/17 20:25 re-eval: ct shows concentric thickening in transverse colon concerning for poss neoplasm. labs reviewed. pt states he tries to eat from above even though they have told him not to eat PO and just to use the peg. States he has vomiting and nausea after trying to eat from above. pt denies abd pain at this time. no nausea at this time. discussed that the patient should not eat from above and use the peg. Also discussed that the patient needs to see GI - dr. fuller and schedule a colonoscopy for further eval of thickening in transverse colon. Pt verbalizes understanding of all instructions. Pt states he wants to go back to the rehab facility. answered all questions. 06/24/17 20:[address] Cannon - who recommends admission to [facility] and they will take over tomorrow for IVIG therapy for CIDP and consult to Dr. Fuller. 06/24/17 21:07 pt updated on plan to stay for IVIG therapy case discussed with Dr. Villalba who accepts pt to service for obs. *DC/Admit/Observation/Transfer Diagnosis at time of Disposition: Dysphagia, Nausea & vomiting, Colon wall thickening, CIDP (chronic inflammatory demyelinating polyneuropathy) - Discharge Dispostion Condition at time of disposition: Stable Admit: Yes - Referrals Referrals: Kristal Cannon MD [Primary Care Provider] - Kisha Fuller MD [Staff Physician] - - Patient Instructions Printed Discharge Instructions: DI for Nausea -- Adult Additional Instructions: Please call the [facility] and schedule and appointment for further eval of colonic thickening found on your CT - Post Discharge Activity
[2017-06-24] MEDS ORDERED: SODIUM CHLORIDE 0.9% 1000 ML INFUS.BAG IV ONE (20:35)
[2017-06-25 00:25] VITALS: BMI 24.7
--- NOTE | 2017-06-25 01:08 | HP ---
Admitting History and Physical - Primary Care Physician PCP: Kristal Cannon - Admission Chief Complaint: vomiting and diarrhea History of Present Illness: This is a 71 y/o man from [facility] Who presents to the ED with vomiting and diarrhea x 5 weeks. Patient was admitted for Dysphagia 04/2017, found to have an esophageal ring possible inflammatory neuropathy- s/p PEG Tube Placement. Patient reports every time he tries to eat he has episodes of vomiting. Patient reports having R- sided abdominal pain, diarrhea- which he attributes to the tube feedings. Patient denies fever, chills, cough, dizziness, SOB, CP, constipation, dysuria. Oncology: Dr Gomez History Source: Patient Limitations to Obtaining History: No Limitations - Past Medical History [employer]: Yes: Peripheral Neuropathy Cardiovascular: Yes: AFIB (on Eliquis), HTN Heme/Onc: Yes: Cancer (Multiple myeloma (WTC exposure)), Current Chemotherapy ( 12 weeks ago) Psych: Yes: Depression Musculoskeletal: Yes: Osteoarthritis Endocrine: Yes: Diabetes Mellitus - Past Surgical History Additional Past Surgical History: PEG placement - Advance Directives Advance Directives: Yes: DNR - Smoking History Smoking history: Former smoker Have you smoked in the past 12 months: No If you are a former smoker, when did you quit?: 40yrs - Alcohol/Substance Use Hx Alcohol Use: No History of Substance Use: reports: None - Social History Usual Living Arrangement: Yes: Shelter ADL: Support Services History of Recent Travel: No Home Medications - Allergies Allergies/Adverse Reactions: Allergies Allergy/AdvReac Type Severity Reaction Status Date / Time No Known Allergies Allergy Verified 04/08/17 11:08 - Home Medications Home Medications: Ambulatory Orders Gabapentin 300 mg PO BID 10/04/16 Acetaminophen [Tylenol .Regular Strength -] 650 mg PO Q6H PRN tablet 04/18/17 Apixaban [Eliquis -] 5 mg PO BID tablet 05/03/17 Mirtazapine [Remeron -] 15 mg PO HS tablet 05/03/17 Naph,Mb-Db/K pH,Mbdb [PHOS-NaK PACKET -] 1 packet GT TID pow 05/03/17 Nystatin Powder [Nystop Powder -] 1 applic TP DAILY applic 05/03/17 Zinc Oxide 1 applic TP DAILY tube 05/03/17 Valsartan [Diovan] 40 mg PO DAILY tablet 05/11/17 Insulin Sliding Scale [Novolog Vial Sliding Scale -] 1 vial SQ ASDIR 06/24/17 Latanoprost 0.005% Eye Drops [Xalatan 0.005% Eye Drops -] 1 drop OS HS 06/24/17 Omeprazole 40 mg PO BID 06/24/17 Saliva Stimulant Comb. No.3 [Biotene Moisturizing Mouth] 44.3 ml MM DAILY Vancomycin HCl 125 mg PO QID 06/24/17 Metoprolol Tartrate [Lopressor -] 12.5 mg PO BID 06/25/17 Review of Systems - Review of Systems Constitutional: reports: Loss of Appetite Eyes: reports: No Symptoms HENT: reports: No Symptoms Neck: reports: No Symptoms Cardiovascular: reports: No Symptoms Respiratory: reports: No Symptoms Gastrointestinal: reports: Diarrhea, Nausea, Vomiting Genitourinary: reports: No Symptoms Breasts: reports: No Symptoms Reported Musculoskeletal: reports: No Symptoms Integumentary: reports: No Symptoms Neurological: reports: No Symptoms Endocrine: reports: No Symptoms Hematology/Lymphatic: reports: No Symptoms Psychiatric: reports: No Symptoms Physical Examination Vital Signs: Vital Signs Temperature 97.9 F 06/24/17 23:54 Pulse Rate 100 H 06/24/17 23:54 Respiratory Rate 20 06/24/17 23:54 Blood Pressure 104/70 06/24/17 23:54 O2 Sat by Pulse Oximetry (%) 95 06/24/17 23:45 Constitutional: Yes: No Distress, Calm Eyes: Yes: WNL, Conjunctiva Clear, EOM Intact, PERRL HENT: Yes: WNL, Atraumatic, Normocephalic Neck: Yes: WNL, Supple, Trachea Midline Cardiovascular: Yes: Pulse Irregular, Murmur, S1, S2 Respiratory: Yes: WNL, Regular, CTA Bilaterally Gastrointestinal: Yes: Hypoactive Bowel Sounds, Tenderness (RMQ, RLQ), Other ( PEG) ...Rectal Exam: Yes: Deferred Renal/: Yes: WNL Breast(s): Yes: WNL Musculoskeletal: Yes: WNL Extremities: Yes: WNL Edema: No Peripheral Pulses WNL: Yes Integumentary: Yes: WNL Neurological: Yes: WNL, Alert, Oriented, Cran Nerves II-XII Intact ...Motor Strength: WNL Psychiatric: Yes: WNL, Alert, Oriented Labs: CBC, BMP 06/24/17 15:33 06/24/17 15:37 Laboratory Results - last 24 hr 06/24/17 06/24/17 06/24/17 15:33 15:33 15:33 WBC 5.9 RBC 3.54 L Hgb 12.3 D Hct 36.7 D MCV 103.8 H MCH 34.9 H MCHC 33.6 RDW 17.0 H Plt Count 167 D MPV 9.0 Neutrophils % 68.7 Lymphocytes % 18.2 Monocytes % 10.2 Eosinophils % 2.3 Basophils % 0.6 PT with INR 13.70 H INR 1.21 H Sodium Cancelled Potassium Cancelled Chloride Cancelled Carbon Dioxide Cancelled Anion Gap Cancelled BUN Cancelled Creatinine Cancelled Creat Clearance w eGFR Cancelled Random Glucose Cancelled Calcium Cancelled Total Bilirubin Cancelled AST Cancelled ALT Cancelled Alkaline Phosphatase Cancelled Total Protein Cancelled Albumin Cancelled 06/24/17 15:37 WBC RBC Hgb Hct MCV MCH MCHC RDW Plt Count MPV Neutrophils % Lymphocytes % Monocytes % Eosinophils % Basophils % PT with INR INR Sodium 143 Potassium 3.9 Chloride 106 Carbon Dioxide 26 Anion Gap 11 BUN 17 Creatinine 0.7 Creat Clearance w eGFR > 60 Random Glucose 111 H Calcium 8.6 Total Bilirubin 0.7 D AST 31 D ALT 34 D Alkaline Phosphatase 78 D Total Protein 6.3 L Albumin 2.9 L D Intake & Output 06/22/17 06/23/17 06/24/17 06/25/17 23:59 23:59 23:59 23:59 Output Total 700 Balance -700 Weight 76.204 kg Current Medications Generic Name Dose Route Start Last Admin Trade Name Freq PRN Reason Stop Dose Admin Apixaban 5 mg 06/25/17 10:00 Eliquis - PO BID JAMIE Gabapentin 300 mg 06/25/17 10:00 Neurontin - PEG BID JAMIE Dextrose/Sodium Chloride 1,000 mls @ 42 mls/hr 06/25/17 01:15 D5-1/2ns - IV ASDIR JAMIE Latanoprost 1 drop 06/25/17 22:00 Xalatan 0.005% Eye Drops - OS HS JAMIE Metoprolol Tartrate 12.5 mg 06/25/17 10:00 Lopressor - PEG BID JAMIE Mirtazapine 15 mg 06/25/17 22:00 Remeron - PEG HS JAMIE Valsartan 40 mg 06/25/17 10:00 Diovan - PEG DAILY JAMIE Imaging - Results Chest X-ray: Image Reviewed Cat Scan: Report Reviewed, Image Reviewed EKG: Pending Problem List - Problems (1) Nausea & vomiting Code(s): R11.2 - NAUSEA WITH VOMITING, UNSPECIFIED (2) Diarrhea Code(s): R19.7 - DIARRHEA, UNSPECIFIED (3) Colon wall thickening Code(s): K63.9 - DISEASE OF INTESTINE, UNSPECIFIED (4) CIDP (chronic inflammatory demyelinating polyneuropathy) Code(s): G61.81 - CHRONIC INFLAMMATORY DEMYELINATING POLYNEURITIS (5) Atrial fibrillation Code(s): I48.91 - UNSPECIFIED ATRIAL FIBRILLATION Qualifiers: Atrial fibrillation type: paroxysmal Qualified Code(s): I48.0 - Paroxysmal atrial fibrillation (6) CAD (coronary artery disease) Code(s): I25.10 - ATHSCL HEART DISEASE OF [place] CORONARY ARTERY W/O ANG PCTRS Qualifiers: Coronary Disease-Associated Artery/Lesion type: [place] artery [place] vs. transplanted heart: [place] heart Associated angina: without angina Qualified Code(s): I25.10 - Atherosclerotic heart disease of [place] coronary artery without angina pectoris (7) Diabetes mellitus Code(s): E11.9 - TYPE 2 DIABETES MELLITUS WITHOUT COMPLICATIONS Qualifiers: Diabetes mellitus type: type 2 (8) HTN (hypertension) Code(s): I10 - ESSENTIAL (PRIMARY) HYPERTENSION Qualifiers: Hypertension type: essential hypertension Qualified Code(s): I10 - Essential (primary) hypertension (9) Hypercholesterolemia Code(s): E78.00 - PURE HYPERCHOLESTEROLEMIA, UNSPECIFIED (10) Multiple myeloma in remission Code(s): C90.01 - MULTIPLE MYELOMA IN REMISSION (11) Schatzki's ring of distal esophagus Code(s): K22.2 - ESOPHAGEAL OBSTRUCTION (12) Status post insertion of percutaneous endoscopic gastrostomy (PEG) tube Code(s): Z93.1 - GASTROSTOMY STATUS (13) DVT prophylaxis Code(s): [id number] - Assessment/Plan This is a 71 y/o man with a PMHx of: Afib(on Eliquis), DM, Multiple Myeloma ( last chemo 12 weeks ago,in remission), HTN, OA. Placed in Observation for Intractable Vomiting, Diarrhea, Dysphagia Plan: 1. Intractable vomiting- NPO, continue IVF, monitor lytes. 2. Abdominal Pain- CTAP-no evidence of bowel obstruction or diverticulitis, well positioned percutaneous gastrostomy. Focal eccentric wall thickening in the proximal transverse colon is concerning for neoplasia. Please correlate with colonoscopy. Hepatic steatosis, enlarged prostate, numerous lucencies within the pelvic bones, possibly lesions of multiple myeloma continue IVF, Appreciate GI consult, monitor CBC, BMP 3. Diarrhea- possibly infectious, will order C-diff, stool culture, replete lytes prn, continue IVF 4. Dysphagia- Swallow eval, NPO 5. Afib- stable, EKG- afib, [id number] 3, continue Eliquis, FU with Cardiology in outpatient as needed 6. HTN- stable, continue home meds with parameters, monitor renal function 7. Diabetes Mellitus- stable, BGMs, will hold meds 2/2 NPO status, will have day team reassess in am 8. Multiple Myeloma- s/p Chemo (12 weeks ago) in remission, FU with Oncology outpatient as needed 9. FEN- D51/2nS@42ml/hr, Replete lytes prn, NPO 10. DVT ppx- SCDs, Continue Eliquis Code Status: DNR Dispo: Observation Visit type - Emergency Visit Emergency Visit: Yes ED Registration Date: 06/24/17 Care time: The patient presented to the Emergency Department on the above date and was hospitalized for further evaluation of their emergent condition. - New Patient This patient is new to me today: Yes Date on this admission: 06/25/17 - Critical Care Critical Care patient: No Hospitalist Screening - Colonoscopy Questionnaire Colonoscopy Questionnaire: Colonoscopy Questionnaire - Patient: 50 - 75 years old and never had a screening colonoscopy: No History of colon or rectal polyps, or CA: No History of IBD, Crohn's disease or UC: No History of abdominal radiation therapy as a child: No - Relative: 1 with colon or rectal CA, or polyps at age 60 or younger: No Colon or rectal CA diagnosed at age 45 or younger: No Multiple relatives with colon or rectal CA: No - Outcome: Screening Result: Negative Screen
[2017-06-25] MEDS ORDERED: PT OWN MED DRAWER 7, Y5N ONE ×3 (09:57→17:51)
--- NOTE | 2017-06-25 09:59 | PN ---
Progress Note, Physician History of Present Illness: Pt well known to me send from [facility] yesterday due to persistent diarrhea/ weakness/ not eating. Chart reviewed sitting in bed. no distress. - Current Medication List Current Medications: Active Medications Apixaban (Eliquis -) 5 mg PO BID JAMIE Gabapentin (Neurontin -) 300 mg PEG BID JAMIE Dextrose/Sodium Chloride (D5-1/2ns -) 1,000 mls @ 42 mls/hr IV ASDIR JAMIE Latanoprost (Xalatan 0.005% Eye Drops -) 1 drop OS HS JAMIE Metoprolol Tartrate (Lopressor -) 12.5 mg PEG BID JAMIE Mirtazapine (Remeron -) 15 mg PEG HS JAMIE Valsartan (Diovan -) 40 mg PEG DAILY JAMIE Vancomycin HCl (Vancomycin Oral Solution) 125 mg PEG Q6HPO JAMIE - Objective Vital Signs: Vital Signs Temperature 98.4 F 06/25/17 05:09 Pulse Rate 95 H 06/25/17 05:09 Respiratory Rate 20 06/25/17 05:09 Blood Pressure 95/64 06/25/17 05:09 O2 Sat by Pulse Oximetry (%) 95 06/24/17 23:45 Constitutional: Yes: No Distress Eyes: Yes: Conjunctiva Clear Neck: Yes: Supple Cardiovascular: Yes: Regular Rate and Rhythm Respiratory: Yes: CTA Bilaterally Gastrointestinal: Yes: Soft, Other (s/p g tube) Edema: No Neurological: Yes: Alert Psychiatric: Yes: Alert Labs: CBC, BMP 06/24/17 15:33 06/24/17 15:37 INR, PTT INR 1.21 (0.82-1.09) H 06/24/17 15:33 Problem List - Problems (1) C. difficile diarrhea Code(s): A04.72 - ENTEROCOLITIS D/T CLOSTRIDIUM DIFFICILE, NOT SPCF RECUR (2) CIDP (chronic inflammatory demyelinating polyneuropathy) Code(s): G61.81 - CHRONIC INFLAMMATORY DEMYELINATING POLYNEURITIS (3) Colon wall thickening Code(s): K63.9 - DISEASE OF INTESTINE, UNSPECIFIED (4) Dysphagia Code(s): R13.10 - DYSPHAGIA, UNSPECIFIED Qualifiers: (5) Atrial fibrillation Code(s): I48.91 - UNSPECIFIED ATRIAL FIBRILLATION Qualifiers: Atrial fibrillation type: paroxysmal Qualified Code(s): I48.0 - Paroxysmal atrial fibrillation (6) CAD (coronary artery disease) Code(s): I25.10 - ATHSCL HEART DISEASE OF [place] CORONARY ARTERY W/O ANG PCTRS Qualifiers: Coronary Disease-Associated Artery/Lesion type: [place] artery [place] vs. transplanted heart: [place] heart Associated angina: without angina Qualified Code(s): I25.10 - Atherosclerotic heart disease of [place] coronary artery without angina pectoris (7) Diabetes mellitus Code(s): E11.9 - TYPE 2 DIABETES MELLITUS WITHOUT COMPLICATIONS Qualifiers: Diabetes mellitus type: type 2 (8) Diarrhea Code(s): R19.7 - DIARRHEA, UNSPECIFIED (9) Multiple myeloma Code(s): C90.00 - MULTIPLE MYELOMA NOT HAVING ACHIEVED REMISSION Qualifiers: Multiple myeloma remission status: not in remission Qualified Code(s): C90.00 - Multiple myeloma not having achieved remission (10) Status post insertion of percutaneous endoscopic gastrostomy (PEG) tube Code(s): Z93.1 - GASTROSTOMY STATUS (11) Thrombocytopenia Code(s): D69.6 - THROMBOCYTOPENIA, UNSPECIFIED Assessment/Plan Fluids Meds reviewed po vanco. i/d /gi , neurology and oncology consults will follow Had discussed with pts yesterday.
[2017-06-25] MEDS: APIXABAN 5 MG TABLET PO SCH ×2 (10:04→22:00)
[2017-06-25] MEDS: VALSARTAN 40 MG TABLET (FP) PEG SCH (10:04)
[2017-06-25] MEDS: METOPROLOL TARTRATE 25 MG TABLET (FP) PEG SCH ×2 (10:05→21:58)
[2017-06-25] MEDS: GABAPENTIN 300 MG CAPSULE (FP) PEG SCH ×2 (10:05→21:59)
--- NOTE | 2017-06-25 11:08 | CON.GI ---
Consult Consult Specialty:: GI: Dr. Eagle covering for Dr. Fuller Referred by:: Dr. Cornell Cannon Reason for Consultation:: Diarrhea - History of Present Illness Chief Complaint: Diarrhea History of Present Illness: 71 M admitted from [facility] for evaluation of diarrhea. Patient states that he has been having loose BM's for 6 weeks and did have diarrhea since admitted. He denies rectal bleeding. He thinks that he may have been given antibiotics recently (? amoxicillin) while at [facility] recently and has had some right sided abdominal pain. A CT scan was performed without PO contrast that reveals a collapsed non distended colon and the radiologist described thickening of the wall of the proximal transverse colon. He was seen by Dr. Winslow in 04/04 for anemia. Guaiac study was negative 04/08/17. He performed EGD 04/03/17 that was unrevealing and biopsies of the antrum and duodenum were unrevealing. Of note CT scan of the abdomen and pelvis with PO and IV contrast revealed fatty liver, left lower lobe infiltrate, scattered colon diverticula but did not reveal the transverse colon wall thickening described on current study. Guaiac study from 04/21/17 was positive. He has been evaluated by Dr. Fuller 05/06 recently for dysphagia. He performed EGD x 2. The first EGD 04/26/17 he dilated a schatzki's ring and when dysphagia persisted, the 2nd EGD insluded PEG placement 05/03/17. A S/S note from 06/04/17 reflects that Mr. Rachel had persistent retching when attempting trial of PO. Becca Chanel questioned oropharyngeal candidiasis and her note alludes to Mr. Rachel being diagnosed with C. Diff at that time as well. There are no stool studies in [employer] to confirm this so this was likely sent to an outside lab from [facility]. Of note C. diff toxin and antigen were negative , C. Diff antigen positive toxin negative on 05/05/17 (seen by ID and did not think Rx necessary at that time) and C. Diff antigen positive / toxin geative on admission currently 06/24/17. Reviewing the discharge summary of that admission he was discharged on Augmentin the end of 05/06. Stool described as watery and copious. He has never had a colonoscopy. His brother of colon cancer at age 65. 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 Cardio/Vascular: Yes: AFIB (on Eliquis), HTN Heme/Onc: Yes: Other (Multiple Myeloma in remission from heme notes 05/06) Psych: Yes: Depression Musculoskeletal: Yes: Osteoarthritis Endocrine: Yes: Diabetes Mellitus Additional Medical History: glaucoma with decreased vision and need for surgeryleft eye - Past Surgical History Additional Surgical History: PEG 05/03/17 - Alcohol/Substance Use Hx Alcohol Use: No History of Substance Use: reports: None - Smoking History Smoking history: Former smoker Have you smoked in the past 12 months: No If you are a former smoker, when did you quit?: 40yrs - Social History Usual Living Arrangement: Alf (Currently residing in [facility]) ADL: Support Services Place of : [facility] History of Recent Travel: No Home Medications - Allergies Allergies/Adverse Reactions: Allergies Allergy/AdvReac Type Severity Reaction Status Date / Time No Known Allergies Allergy Verified 04/08/17 11:08 - Home Medications Home Medications: Ambulatory Orders Gabapentin 300 mg PO BID 10/04/16 Acetaminophen [Tylenol .Regular Strength -] 650 mg PO Q6H PRN tablet 04/18/17 Apixaban [Eliquis -] 5 mg PO BID tablet 05/03/17 Mirtazapine [Remeron -] 15 mg PO HS tablet 05/03/17 Naph,Mb-Db/K pH,Mbdb [PHOS-NaK PACKET -] 1 packet GT TID pow 05/03/17 Nystatin Powder [Nystop Powder -] 1 applic TP DAILY applic 05/03/17 Zinc Oxide 1 applic TP DAILY tube 05/03/17 Valsartan [Diovan] 40 mg PO DAILY tablet 05/11/17 Insulin Sliding Scale [Novolog Vial Sliding Scale -] 1 vial SQ ASDIR 06/24/17 Latanoprost 0.005% Eye Drops [Xalatan 0.005% Eye Drops -] 1 drop OS HS 06/24/17 Omeprazole 40 mg PO BID 06/24/17 Saliva Stimulant Comb. No.3 [Biotene Moisturizing Mouth] 44.3 ml MM DAILY Vancomycin HCl 125 mg PO QID 06/24/17 Metoprolol Tartrate [Lopressor -] 12.5 mg PO BID 06/25/17 Family Disease History - Family Disease History Family Disease History: Other: Father (: 68: lung Ca), Mother (: 60's: "bone cancer"), Brother (1, : 65: colon cancer), Son (1, healthy), Daughter (1 with SLE) Review of Systems - Review of Systems Constitutional: denies: Chills Cardiovascular: denies: Chest Pain, Palpitations Gastrointestinal: reports: Abdominal Pain, Diarrhea, Dysphagia, Vomiting (when he tries PO intake). denies: Bloating, Constipation, Melena, Rectal Bleeding Physical Exam-GI Vital Signs: Vital Signs Temperature 98.1 F 06/25/17 11:00 Pulse Rate 124 H 06/25/17 11:00 Respiratory Rate 20 06/25/17 11:00 Blood Pressure 99/63 06/25/17 11:00 O2 Sat by Pulse Oximetry (%) 94% on RA 06/24/17 11:00 Constitutional: Yes: Calm Eyes: No: Sclera Icterus Cardiovascular: Yes: Tachycardia (regular rhythm) Respiratory: Yes: CTA Bilaterally Gastrointestinal Inspection: Yes: Other (PEG in place in upper abdomen. site C/ D/I. No erythema, fluctuance, tenderness). No: Distention ...Auscultate: Yes: Normoactive Bowel Sounds ...Palpate: Yes: Soft, Tenderness (Mild TTP right abdomen). No: Guarding, Tenderness, Rebound ...Percussion: No: Tympanitic ...Rectal Exam: Yes: Other (light brown liquid stool guaiac positive) Edema: No (No LE edema) Neurological: Yes: Alert, Oriented Labs: CBC, BMP 06/24/17 15:33 06/24/17 15:37 INR, PTT INR 1.21 (0.82-1.09) H 06/24/17 15:33 Microbiology 06/24/17 18:16 Stool Clostridium difficile Antigen (RAVINDRA) - positive 06/24/17 18:16 Stool Clostridium difficile Toxin Assay - negative Imaging - Results Cat Scan: Report Reviewed, Image Reviewed Problem List - Problems (1) Diarrhea Assessment/Plan: Given C. Diff antigen being positive along with diarrheal symptomatology, agree with Rx with PO navco 125mg PO Q6 hrs for now and ordered C. Diff gene toxin gloria. Proximal transverse colon wall thickening was described however there was no PO contrast utilized limiting evaluation of the colon. This was not seen on previous contrast CT scan in 04/04. Ordered stool culture / O&P Resume feeds through PEG if not further vomiting Monitor lytes IV hydration When acute issues are resolved, will need follow-up colonoscopy given family history of colon cancer and recent CT scan findings. Mr. Rachel tells me that he was already advised to follow-up with Dr. Fuller. Code(s): R19.7 - DIARRHEA, UNSPECIFIED Qualifiers: Diarrhea type: unspecified type Qualified Code(s): R19.7 - Diarrhea, unspecified
[2017-06-25] MEDS: VANCOMYCIN 250 MG/5 ML ORAL SOLUTION PEG SCH ×2 (12:12→17:57)
--- NOTE | 2017-06-25 12:34 | CONSULT ---
Consult Consult Specialty:: Oncology-hematology Referred by:: Dr. Cannon Reason for Consultation:: History of multiple myeloma - s/p transplant and maintenance therapy. - History of Present Illness Chief Complaint: Presents with 4-5 weeks of diarrhea with 4-5 stools per day, mainly liquid.m. C. diff antigen positive, toxin- negative. 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 Cardio/Vascular: Yes: AFIB (on Eliquis), HTN Gastrointestinal: Yes: Other (dysphagia; dilatation of Schatzki ring ; PEG ) Heme/Onc: Yes: Cancer (Multiple myeloma, s/p transplant) Psych: Yes: Depression Musculoskeletal: Yes: Chronic low back pain, Osteoarthritis Endocrine: Yes: Diabetes Mellitus Additional Medical History: glaucoma with decreased vision and need for surgeryleft eye - Past Surgical History Additional Surgical History: PEG 05/03/17 - Alcohol/Substance Use Hx Alcohol Use: No History of Substance Use: reports: None - Smoking History Smoking history: Former smoker Have you smoked in the past 12 months: No If you are a former smoker, when did you quit?: 40yrs - Social History Usual Living Arrangement: [facility] (Currently residing in [facility]) ADL: Support Services History of Recent Travel: No Home Medications - Allergies Allergies/Adverse Reactions: Allergies Allergy/AdvReac Type Severity Reaction Status Date / Time No Known Allergies Allergy Verified 04/08/17 11:08 - Home Medications Home Medications: Ambulatory Orders Gabapentin 300 mg PO BID 10/04/16 Acetaminophen [Tylenol .Regular Strength -] 650 mg PO Q6H PRN tablet 04/18/17 Apixaban [Eliquis -] 5 mg PO BID tablet 05/03/17 Mirtazapine [Remeron -] 15 mg PO HS tablet 05/03/17 Naph,Mb-Db/K pH,Mbdb [PHOS-NaK PACKET -] 1 packet GT TID pow 05/03/17 Nystatin Powder [Nystop Powder -] 1 applic TP DAILY applic 05/03/17 Zinc Oxide 1 applic TP DAILY tube 05/03/17 Valsartan [Diovan] 40 mg PO DAILY tablet 05/11/17 Insulin Sliding Scale [Novolog Vial Sliding Scale -] 1 vial SQ ASDIR 06/24/17 Latanoprost 0.005% Eye Drops [Xalatan 0.005% Eye Drops -] 1 drop OS HS 06/24/17 Omeprazole 40 mg PO BID 06/24/17 Saliva Stimulant Comb. No.3 [Biotene Moisturizing Mouth] 44.3 ml MM DAILY Vancomycin HCl 125 mg PO QID 06/24/17 Metoprolol Tartrate [Lopressor -] 12.5 mg PO BID 06/25/17 Family Disease History - Family Disease History Family Disease History: Other: Father (: 68: lung Ca), Mother (: 60's: "bone cancer"), Brother (1, : 65: colon cancer), Son (1, healthy), Daughter (1 with SLE) Review of Systems - Review of Systems Constitutional: reports: Unintentional Wgt. Loss, Weakness Eyes: reports: Other (glaucoma ; decrease vision left > right eye) HENT: reports: Difficult Swallowing, Other (PEG insertion; Prior dilitation of Schatzki ring) Neck: denies: Stiffness, Swollen Glands, Tenderness Cardiovascular: denies: Chest Pain, Palpitations, Shortness of Breath Respiratory: denies: Cough, Orthopnea, PND, Wheezing Gastrointestinal: reports: Abdominal Pain, Diarrhea, Dysphagia, Nausea, Vomiting. denies: Indigestion, Melena, Vomiting Blood Genitourinary: denies: Dysuria, Flank Pain, Frequency Musculoskeletal: reports: Back Pain Integumentary: denies: Bruising, Eczema, Erythema Neurological: reports: Numbness, Pre-Existing Deficit, Unsteady Gait, Weakness, Other (difficulty with ambulation) Hematology/Lymphatic: denies: Easily Bruised, Excessive Bleeding, Swollen Glands Psychiatric: reports: No Symptoms Pain Intensity: 5 (upon ambulation) Physical Exam Vital Signs: Vital Signs Temperature 98.4 F 06/25/17 05:09 Pulse Rate 95 H 06/25/17 05:09 Respiratory Rate 20 06/25/17 05:09 Blood Pressure 95/64 06/25/17 05:09 O2 Sat by Pulse Oximetry (%) 95 06/24/17 23:45 Constitutional: Yes: Mild Distress Eyes: Yes: Other (Bilateral decrease vision , erythema anisocoria) Neck: Yes: Supple. No: Lymphadenopathy, Thyromegaly Cardiovascular: Yes: Pulse Irregular Respiratory: Yes: CTA Bilaterally Gastrointestinal: Yes: Normal Bowel Sounds, Soft, Other (mild RLQ tenderness). No: Distention, Hepatomegaly, Pulsatile Mass, Vomiting Renal/: No: CVA Tenderness - Left, CVA Tenderness - Right Musculoskeletal: Yes: Back Pain, Joint Stiffness, Muscle Pain, Muscle Weakness Extremities: No: Calf Tenderness, Cold, Cyanosis, Erythema Edema: No Neurological: Yes: Alert Psychiatric: Yes: WNL Labs: CBC, BMP 06/24/17 15:33 06/24/17 15:37 Imaging - Results Chest X-ray: Report Reviewed Cat Scan: Report Reviewed Problem List - Problems (1) C. difficile diarrhea Assessment/Plan: Antigen positive ; toxin -negative- under therapy per GI. Code(s): A04.72 - ENTEROCOLITIS D/T CLOSTRIDIUM DIFFICILE, NOT SPCF RECUR (2) CIDP (chronic inflammatory demyelinating polyneuropathy) Assessment/Plan: Followed by Dr. Monaco. Received in past gamma globulin q 3 months. Code(s): G61.81 - CHRONIC INFLAMMATORY DEMYELINATING POLYNEURITIS (3) Colon wall thickening Assessment/Plan: No distension of colon on Ct scanning. Not previously noted on prior CT. Has heme positive stool and positve family history of colon ca. Will need colonoscopy in future. Code(s): K63.9 - DISEASE OF INTESTINE, UNSPECIFIED (4) DVT prophylaxis Assessment/Plan: Bedridden , history of malignancy, THROMBOGENIC RISK. On eliquis for a.f. Has heme positive stool so need to monitor Hct and stool guaics. Code(s): MOT6093 - (5) Dysphagia Assessment/Plan: Not tolerating , p.o. . ON tube feedings. Code(s): R13.10 - DYSPHAGIA, UNSPECIFIED Qualifiers: (6) Multiple myeloma in remission Assessment/Plan: S/P TRANSPLANT AND WAS ON MAINTENANCE THERAPY WITH VELCADE AND DECADRON. THIS HAS BEEN HELD SINCE HOSPITILIZATION FOR INABILITY TO AMBULTE, DYSPHAGIA REQUIRING PEG, and NH discharge. To continue to hold on maintenance therapy. Code(s): C90.01 - MULTIPLE MYELOMA IN REMISSION (7) Anemia Assessment/Plan: Chronic disease. Check Fe++ studies. Code(s): D64.9 - ANEMIA, UNSPECIFIED Qualifiers: Qualified Code(s): D61.810 - Antineoplastic chemotherapy induced pancytopenia ; T45.1X5A - Adverse effect of antineoplastic and immunosuppressive drugs, initial encounter; T45.1X5A - Adverse effect of antineoplastic and immunosuppressive drugs, initial encounter
--- NOTE | 2017-06-25 12:40 | CON.CARD ---
Consult Consult Specialty:: Cardiology Referred by:: Kristal Cannon MD Reason for Consultation:: Diarrhea - History of Present Illness Chief Complaint: Diarrhea History of Present Illness: 71 M admitted from [facility] for evaluation of nonbloody, watery diarrhea and abd pain for several weeks, previous abx exposure, nausea and emesis, CT scan was performed without PO contrast that reveals a collapsed non distended colon and the radiologist described thickening of the wall of the proximal transverse colon, c. diff antigen positive. He denies fevers, chills, chest pain, dyspnea, near or true syncope, palpitations, orthopnea, PND or LE edema. 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 Cardio/Vascular: Yes: AFIB (on Eliquis), HTN Gastrointestinal: Yes: Other (dysphagia; dilatation of Schatzki ring ; PEG ) Psych: Yes: Depression Musculoskeletal: Yes: Chronic low back pain, Osteoarthritis Endocrine: Yes: Diabetes Mellitus Additional Medical History: glaucoma with decreased vision and need for surgeryleft eye - Past Surgical History Additional Surgical History: PEG 05/03/17 - Alcohol/Substance Use Hx Alcohol Use: No History of Substance Use: reports: None - Smoking History Smoking history: Former smoker Have you smoked in the past 12 months: No If you are a former smoker, when did you quit?: 40yrs - Social History Usual Living Arrangement: [facility] (Currently residing in [facility]) ADL: Support Services History of Recent Travel: No Home Medications - Allergies Allergies/Adverse Reactions: Allergies Allergy/AdvReac Type Severity Reaction Status Date / Time No Known Allergies Allergy Verified 04/08/17 11:08 - Home Medications Home Medications: Ambulatory Orders Gabapentin 300 mg PO BID 10/04/16 Acetaminophen [Tylenol .Regular Strength -] 650 mg PO Q6H PRN tablet 04/18/17 Apixaban [Eliquis -] 5 mg PO BID tablet 05/03/17 Mirtazapine [Remeron -] 15 mg PO HS tablet 05/03/17 Naph,Mb-Db/K pH,Mbdb [PHOS-NaK PACKET -] 1 packet GT TID pow 05/03/17 Nystatin Powder [Nystop Powder -] 1 applic TP DAILY applic 05/03/17 Zinc Oxide 1 applic TP DAILY tube 05/03/17 Valsartan [Diovan] 40 mg PO DAILY tablet 05/11/17 Insulin Sliding Scale [Novolog Vial Sliding Scale -] 1 vial SQ ASDIR 06/24/17 Latanoprost 0.005% Eye Drops [Xalatan 0.005% Eye Drops -] 1 drop OS HS 06/24/17 Omeprazole 40 mg PO BID 06/24/17 Saliva Stimulant Comb. No.3 [Biotene Moisturizing Mouth] 44.3 ml MM DAILY Vancomycin HCl 125 mg PO QID 06/24/17 Metoprolol Tartrate [Lopressor -] 12.5 mg PO BID 06/25/17 Family Disease History - Family Disease History Family Disease History: Other: Father (: 68: lung Ca), Mother (: 60's: "bone cancer"), Brother (1, : 65: colon cancer), Son (1, healthy), Daughter (1 with SLE) Review of Systems - Review of Systems Gastrointestinal: reports: Diarrhea Vital Signs: Vital Signs Temperature 98.4 F 06/25/17 05:09 Pulse Rate 95 H 06/25/17 05:09 Respiratory Rate 20 06/25/17 05:09 Blood Pressure 95/64 06/25/17 05:09 O2 Sat by Pulse Oximetry (%) 95 06/24/17 23:45 Constitutional: Yes: No Distress, Calm Neck: Yes: Supple Respiratory: Yes: Regular Gastrointestinal: Yes: Soft, Hypoactive Bowel Sounds, Vomiting Cardiovascular: Yes: Regular Rate and Rhythm Heart Sounds: Yes: S1, S2 Murmur: Yes: Systolic Murmur, Grade 1 Edema: No - Other Data Labs, Other Data: CBC, BMP 06/24/17 15:33 06/24/17 15:37 INR, PTT INR 1.21 (0.82-1.09) H 06/24/17 15:33 04/24/17 sinus tachycardia Ejection Fraction %: LVEF > or = 40 % Imaging - Results Chest X-ray: Report Reviewed (NAD) Cat Scan: Report Reviewed (Transverse colonic thickening r/o neoplasia) Problem List - Problems (1) C. difficile diarrhea Code(s): A04.72 - ENTEROCOLITIS D/T CLOSTRIDIUM DIFFICILE, NOT SPCF RECUR (2) CIDP (chronic inflammatory demyelinating polyneuropathy) Code(s): G61.81 - CHRONIC INFLAMMATORY DEMYELINATING POLYNEURITIS (3) Colon wall thickening Code(s): K63.9 - DISEASE OF INTESTINE, UNSPECIFIED (4) Dysphagia Code(s): R13.10 - DYSPHAGIA, UNSPECIFIED Qualifiers: Dysphagia type: oropharyngeal phase Qualified Code(s): R13.12 - Dysphagia, oropharyngeal phase (5) Nausea & vomiting Code(s): R11.2 - NAUSEA WITH VOMITING, UNSPECIFIED Qualifiers: Vomiting type: unspecified (6) Anemia Code(s): D64.9 - ANEMIA, UNSPECIFIED Qualifiers: Bone marrow failure anemia type: pancytopenia, antineoplastic chemotherapy- induced (7) Atrial fibrillation Code(s): I48.91 - UNSPECIFIED ATRIAL FIBRILLATION Qualifiers: Atrial fibrillation type: paroxysmal Qualified Code(s): I48.0 - Paroxysmal atrial fibrillation (8) CAD (coronary artery disease) Code(s): I25.10 - ATHSCL HEART DISEASE OF [place] CORONARY ARTERY W/O ANG PCTRS Qualifiers: Coronary Disease-Associated Artery/Lesion type: [place] artery [place] vs. transplanted heart: kaw heart Associated angina: without angina Qualified Code(s): I25.10 - Atherosclerotic heart disease of [place] coronary artery without angina pectoris (9) Diabetes mellitus Code(s): E11.9 - TYPE 2 DIABETES MELLITUS WITHOUT COMPLICATIONS Qualifiers: Diabetes mellitus type: type 2 (10) Diastolic dysfunction Code(s): I51.9 - HEART DISEASE, UNSPECIFIED (11) HTN (hypertension) Code(s): I10 - ESSENTIAL (PRIMARY) HYPERTENSION Qualifiers: Hypertension type: essential hypertension Qualified Code(s): I10 - Essential (primary) hypertension (12) Hypercholesterolemia Code(s): E78.00 - PURE HYPERCHOLESTEROLEMIA, UNSPECIFIED (13) Multiple myeloma in remission Code(s): C90.01 - MULTIPLE MYELOMA IN REMISSION (14) Status post insertion of percutaneous endoscopic gastrostomy (PEG) tube Code(s): Z93.1 - GASTROSTOMY STATUS Assessment/Plan 1. Diarrhea with + c. diff antigen 2. Dysphagia post PEG placement and Schatzki's ring dilatation - CIDP with bulbar involvement related to myeloma paraprotein 3. Symptomatic anemia post transfusion 4. Paroxysmal atrial fibrillation with periods of rapid ventricular response currently in sinus rhythm [id number] score of 3, on A/C therapy with NOAC ( Eliquis) 5. Coronary artery disease angina pectoris 6. LV diastolic dysfunction with chronic class 0-I NYHA classification LV failure, compensated/euvolemic 7. Hypertension 8. DM 9. Hypercholesterolemia 10. Thrombocytopenia 11. History of multiple myeloma post stem cell transplant 12. History of peripheral neuropathy PLAN: 1. Continue course of oral Vancomycin, f/u stool studies, eventual colonoscopy once clinically stable 2. Continue Eliquis 5 bid with caution and close monitoring of CBC maintaining Hgb equal or > 8.0 3. Continue Lopressor 12.5 bid - hemodynamics permitting 4. Continue Diovan 40 qd hemodynamics permitting 5. Enteral feeds, IVF, monitor electrolytes, thank you for consultative opportunity
--- NOTE | 2017-06-25 14:04 | EKG ---
Test Reason : Blood Pressure : / mmHG Vent. Rate : 115 BPM Atrial Rate : 115 BPM P-R Int : 150 ms QRS Dur : 090 ms QT Int : 344 ms P-R-T Axes : 048 002 042 degrees QTc Int : 475 ms SINUS TACHYCARDIA WITH PREMATURE ATRIAL COMPLEXES WITH ABERRANT CONDUCTION CANNOT RULE OUT INFERIOR INFARCT , AGE UNDETERMINED ABNORMAL ECG WHEN COMPARED WITH ECG OF 24-JUN-2017 15:33, NO SIGNIFICANT CHANGE WAS FOUND Confirmed by JUAN AGUIAR MD ([id number]) on 06/25/2017 2:04:19 PM Referred By: Confirmed By:JUAN AGUIAR MD
--- NOTE | 2017-06-25 14:05 | EKG ---
Test Reason : Blood Pressure : / mmHG Vent. Rate : 097 BPM Atrial Rate : 097 BPM P-R Int : 138 ms QRS Dur : 092 ms QT Int : 378 ms P-R-T Axes : 045 014 051 degrees QTc Int : 480 ms SINUS RHYTHM WITH PREMATURE ATRIAL COMPLEXES PROLONGED QT ABNORMAL ECG WHEN COMPARED WITH ECG OF 24-APR-2017 12:29, PREMATURE ATRIAL COMPLEXES ARE NOW PRESENT Confirmed by STEFANIA BILLS, JUAN ([id number]) on 06/25/2017 2:04:36 PM Referred By: Confirmed By:JUAN AGUIAR MD
--- NOTE | 2017-06-25 14:24 | PN ---
Progress Note (short form) - Note Progress Note: ID Full note dictated Selected Entries 06/25/17 08:15 Temperature 97.4 F L Pulse Rate 95 H Respiratory 18 Rate Blood Pressure 101/70 Laboratory Tests 06/24/17 06/24/17 15:33 15:37 WBC 5.9 Hgb 12.3 D Plt Count 167 D BUN 17 Creatinine 0.7 Creat Clearance w eGFR > 60 Assessment C diff Ag pos toxin neg. Plan Agree with GI should be treted for recurent C diff infection with long treatment oral vancomycin tapering after first 14 days Sravani BILLS
--- NOTE | 2017-06-25 17:53 | CONSULT ---
Consult - text type - Consultation Consultation Note: NEUROLOGY CONSULTATION is greatly appreciated: This 71 yo RH man 1ith H/O HTN, DM, GERD, and AFib-on apixaban, metoprolol, valsartan, insulin, omeprazole, gabapentin and vancomycin is well known to me over many years with CIDP leading to the diagnosis of Paraproteinemia and Multiple Myeloma. In "remission" after bone marrow transplantation but still requires IVIg for CIDP. In Mar-Apr had prolonged hospitalization for weakness and dysphagia. Had dilatation of Esophageal ring and ultimately PEG placement. However, after IVIg treatment his dysphagia, dysarthria and weakness improved. In [facility] he has been walking with a walker. After D/C from [facility] he had no difficulty eating any and all solid foods brought in by his family until about 2 -3 weeks ago when the food began to "get caught" high in his chest and he had to gag to get it out. No PO x 2 weeks. Beginning in the second week at [facility], he developed diarrhea with multiple soft or liquid stools which has persisted. Over the last 2 weeks he has had recurrence of numbness in both hands and slurred speech. This week his walking began to deteriorate. MCV= 103.8 MIO: Thinner. Neck supple. S/P PEG. In Diaper. NEURO: Awake, alert, Dysarthric speech CN II-XII: Slightly reduced tongue JAE's. Gag OK Motor: Intrinsic hand muscles 4/5. Ankle DF 4/5 on R 4-/5 on left. Areflexic in legs. No FTN dystaxia Vibration reduced to the ankles. IMP: 1. Exacerbation of CIDP with dysarthria and increased weakness and Paresthesiae (2 1/2 months after IVIg). 2. Diarrhea due to PEG feeding. R/O C. diff. 3. Dysphagia probably mechanical in nature with high esophageal stenosis. SUGGEST: Check B12 Give IVIg 50 gm/ day x 3 days Hold/ change PEG feeds repeat Upper GI endoscopy. Mobilize OO bed to chair and ambulate daily with PT and walker. Thank you very much, Shahriar Monaco MD
--- NOTE | 2017-06-25 19:24 | CONS ---
DATE OF CONSULTATION: DATE OF DICTATION: 06/25/2017 INFECTIOUS DISEASE CONSULTATION HISTORY OF PRESENT ILLNESS: This is a 71-year-old male from a long-term admitted with chief complaint of diarrhea with loose bowel movements for approximately 6 weeks. He had no blood in the stool and noted only mild abdominal discomfort without fever or chills. According to the notes, he may have been given an antibiotic recently while at [facility]. A CAT scan was performed with p.o. contrast that revealed a collapsed, nondistended colon, and the radiologist described thickening of the wall of the proximal transverse colon. Guaiac studies were negative at that time as was an EGD performed March 24, 2017. A contrast CT study of the abdomen did not show thickening of the transverse colon. He has apparently had positive C. difficile toxin, negative antigen positive results in April. This was repeated again now with essentially the same results. He was apparently discharged on Augmentin on May 06 from the hospital. The stools are described as frequent and watery. PAST MEDICAL HISTORY: Includes multiple myeloma in remission, atrial fibrillation, peripheral neuropathy, osteoarthritis, diabetes mellitus. SOCIAL HISTORY: Former smoker gave this up many years ago. Resident of a long-term, [facility]. No alcohol use. FAMILY HISTORY: Noncontributory. MEDICATIONS: Include gabapentin, Eliquis, Remeron, Diovan, omeprazole, metoprolol. ALLERGIES: None known. REVIEW OF SYSTEMS: All systems reviewed and noncontributory. PHYSICAL EXAMINATION: Vital Signs: The temperature was 97.4, pulse 95, blood pressure 100/70, respirations 18. Neck: Supple without adenopathy. Lungs: Clear to P and A. Heart: S1, S2. Regular rhythm without audible murmur. Abdomen: Soft. Mild right-sided tenderness. No guarding or rebound. Extremities: No clubbing, cyanosis, or edema. LABORATORY DATA: The white count 5.9, hemoglobin 12.3, platelets 167. INR 1.21. BUN 17, creatinine 0.7. ASSESSMENT/RECOMMENDATIONS: A 71-year-old male status post recent hospitalization and treatment with oral antibiotics presents now with recurrent non-watery, copious diarrhea with a positive Clostridium difficile antigen positive. Though the possibility of colonization of the colon with Clostridium difficile is considered in view of his recurrent diarrhea, I would agree with Dr. Davis of gastroenterology that the patient should be treated for Clostridium difficile infection perhaps with a longer tapering course of treatment after the initial 2 weeks. He should be treated now with 125 mg q.i.d. of oral vancomycin, maintained on contact isolation, and stools sent for C. difficile nucleic acid probe. Patient has been seen by Dr. Gomez of hematology for his history of multiple myeloma status post stem cell transplant with maintenance therapy. NATANAEL MIKE M.D. [id number]
[2017-06-25] MEDS: MIRTAZAPINE 15 MG TABLET (FP) PEG SCH (21:58)
[2017-06-25] MEDS: DEXTROSE 5%-0.45% SALINE 1,000 ML IV SCH (22:00)
[2017-06-25] MEDS: LATANOPROST 0.005% OPHTH SOLN 2.5ML BOTTLE OS SCH (22:00)
[2017-06-26] MEDS: VANCOMYCIN 250 MG/5 ML ORAL SOLUTION PEG SCH ×4 (00:04→17:42)
[2017-06-26] MEDS: DEXTROSE 5%-0.45% SALINE 1,000 ML IV SCH (02:00)
[2017-06-26 08:40] LABS: BASO % 0.9 % (0-2.0); EOS % 2.9 % (0-4.5); HEMATOCRIT 32.3 % (35.4-49); LYMPH % 21.8 % (8-40); MCH 35.4 pg (25.7-33.7); MEAN CELL VOLUME 104.2 fl (80-96); MEAN PLT VOLUME 8.8 fl (7.5-11.1); MONO % 11.8 % (3.8-10.2); NEUT % 62.6 % (42.8-82.8); PLATELET COUNT 149 K/MM3 (134-434); RDW 17.1 % (11.9-15.9); WHITE BLOOD COUNT 4.6 K/mm3 (4.0-10.0)
[2017-06-26 08:50] LABS: ALBUMIN 2.6 g/dl (3.4-5.0); ALK PHOS 66 U/L (45-117); BILIRUBIN,TOTAL 0.6 mg/dL (0.2-1.0); SGOT/AST 31 U/L (15-37); SGPT/ALT 25 U/L (12-78); TOT PROT 5.8 g/dl (6.4-8.2)
[2017-06-26] MEDS ORDERED: IMMUNE GLOBULIN IVPB SCH (10:00)
[2017-06-26] MEDS ORDERED: IMMUNE GLOBULIN (IgG) 10 GM VIAL IVPB SCH (10:00)
[2017-06-26] MEDS: VALSARTAN 40 MG TABLET (FP) PEG SCH (11:15)
[2017-06-26] MEDS: METOPROLOL TARTRATE 25 MG TABLET (FP) PEG SCH ×2 (11:15→21:59)
[2017-06-26] MEDS: GABAPENTIN 300 MG CAPSULE (FP) PEG SCH ×2 (11:16→21:59)
[2017-06-26] MEDS: APIXABAN 5 MG TABLET PO SCH ×2 (11:17→21:58)
[2017-06-26] MEDS: IMMUNE GLOB,GAM CAPRYLATE(IGG) 40 GM, IMMUNE GLOBULIN (IgG) 10 GM IVPB SCH (11:25)
--- NOTE | 2017-06-26 11:46 | PN ---
Progress Note, Physician Chief Complaint: Events noted Complains of diarrhea - improving History of Present Illness: Patient was seen and examined. Awake and alert. Chart was reviewed Denies chest pain, SOB or palpitations - Current Medication List Current Medications: Active Medications Apixaban (Eliquis -) 5 mg PO BID [facility] Last Admin: 06/26/17 11:17 Dose: 5 mg Gabapentin (Neurontin -) 300 mg PEG BID [facility] Last Admin: 06/26/17 11:16 Dose: 300 mg Dextrose/Sodium Chloride (D5-1/2ns -) 1,000 mls @ 42 mls/hr IV ASDIR [facility] Last Admin: 06/26/17 02:00 Dose: 42 mls/hr Immune Globulin/ Immune (Globulin) 500 mls @ 100 mls/hr IVPB DAILY [facility] Stop: 06/28/17 14:59 Last Admin: 06/26/17 11:25 Dose: 100 mls/hr Latanoprost (Xalatan 0.005% Eye Drops -) 1 drop OS HS [facility] Last Admin: 06/25/17 22:00 Dose: 1 drop Metoprolol Tartrate (Lopressor -) 12.5 mg PEG BID [facility] Last Admin: 06/26/17 11:15 Dose: Not Given Mirtazapine (Remeron -) 15 mg PEG HS [facility] Last Admin: 06/25/17 21:58 Dose: 15 mg Valsartan (Diovan -) 40 mg PEG DAILY [facility] Last Admin: 06/26/17 11:15 Dose: Not Given Vancomycin HCl (Vancomycin Oral Solution) 125 mg PEG Q6HPO [facility] Last Admin: 06/26/17 11:28 Dose: 125 mg - Objective Vital Signs: Vital Signs Temperature 97.5 F L 06/26/17 06:21 Pulse Rate 96 H 06/26/17 06:21 Respiratory Rate 20 06/26/17 06:21 Blood Pressure 97/58 06/26/17 06:21 O2 Sat by Pulse Oximetry (%) 98 06/25/17 22:00 Eyes: Yes: PERRL HENT: Yes: Atraumatic Neck: Yes: Supple Cardiovascular: Yes: Regular Rate and Rhythm, S1, S2 Respiratory: Yes: CTA Bilaterally Gastrointestinal: Yes: Normal Bowel Sounds, Soft. No: Tenderness Edema: No Labs: CBC, BMP 06/26/17 06:00 INR, PTT INR 1.21 (0.82-1.09) H 06/24/17 15:33 Problem List - Problems (1) C. difficile diarrhea Code(s): A04.72 - ENTEROCOLITIS D/T CLOSTRIDIUM DIFFICILE, NOT SPCF RECUR (2) CIDP (chronic inflammatory demyelinating polyneuropathy) Code(s): G61.81 - CHRONIC INFLAMMATORY DEMYELINATING POLYNEURITIS (3) Dysphagia Code(s): R13.10 - DYSPHAGIA, UNSPECIFIED Qualifiers: Dysphagia type: oropharyngeal phase Qualified Code(s): R13.12 - Dysphagia, oropharyngeal phase (4) Anemia Code(s): D64.9 - ANEMIA, UNSPECIFIED Qualifiers: Bone marrow failure anemia type: pancytopenia, antineoplastic chemotherapy- induced (5) Atrial fibrillation Code(s): I48.91 - UNSPECIFIED ATRIAL FIBRILLATION Qualifiers: Atrial fibrillation type: paroxysmal Qualified Code(s): I48.0 - Paroxysmal atrial fibrillation (6) CAD (coronary artery disease) Code(s): I25.10 - ATHSCL HEART DISEASE OF [place] CORONARY ARTERY W/O ANG PCTRS Qualifiers: Coronary Disease-Associated Artery/Lesion type: [place] artery [place] vs. transplanted heart: [place] heart Associated angina: without angina Qualified Code(s): I25.10 - Atherosclerotic heart disease of [place] coronary artery without angina pectoris (7) Diabetes mellitus Code(s): E11.9 - TYPE 2 DIABETES MELLITUS WITHOUT COMPLICATIONS Qualifiers: Diabetes mellitus type: type 2 (8) Diastolic dysfunction Code(s): I51.9 - HEART DISEASE, UNSPECIFIED (9) HTN (hypertension) Code(s): I10 - ESSENTIAL (PRIMARY) HYPERTENSION Qualifiers: Hypertension type: essential hypertension Qualified Code(s): I10 - Essential (primary) hypertension (10) Hypercholesterolemia Code(s): E78.00 - PURE HYPERCHOLESTEROLEMIA, UNSPECIFIED (11) Multiple myeloma Code(s): C90.00 - MULTIPLE MYELOMA NOT HAVING ACHIEVED REMISSION Qualifiers: Multiple myeloma remission status: not in remission Qualified Code(s): C90.00 - Multiple myeloma not having achieved remission (12) Schatzki's ring of distal esophagus Code(s): K22.2 - ESOPHAGEAL OBSTRUCTION (13) Status post insertion of percutaneous endoscopic gastrostomy (PEG) tube Code(s): Z93.1 - GASTROSTOMY STATUS Assessment/Plan 1. Diarrhea with positive C. Diff antigen 2. Dysphagia post PEG placement and Schatzki's ring dilatation - CIDP with bulbar involvement related to myeloma paraprotein 3. Symptomatic anemia post transfusion 4. Paroxysmal atrial fibrillation with periods of rapid ventricular response currently in sinus rhythm [id number] score of 3, on A/C therapy with NOAC ( Eliquis) 5. Coronary artery disease angina pectoris 6. LV diastolic dysfunction with chronic class 0-I NYHA classification LV failure, compensated/euvolemic 7. Hypertension 8. DM 9. Hypercholesterolemia 10. Thrombocytopenia 11. History of multiple myeloma post stem cell transplant 12. History of peripheral neuropathy PLAN: 1. Continue course of antibiotics - eventual colonoscopy once clinically stable 2. Continue Eliquis 5 bid with caution and close monitoring of CBC maintaining Hgb equal or > 8.0 3. Continue Lopressor 12.5 BID - hemodynamics permitting 4. Continue Diovan 40 QD hemodynamics permitting Further plans are to follow Dmitri Ngo MD
--- NOTE | 2017-06-26 11:52 | PN ---
Progress Note, Physician Chief Complaint: diarrhea better receiving ivIG no complaints - Current Medication List Current Medications: Active Medications Apixaban (Eliquis -) 5 mg PO BID [facility] Last Admin: 06/26/17 11:17 Dose: 5 mg Gabapentin (Neurontin -) 300 mg PEG BID [facility] Last Admin: 06/26/17 11:16 Dose: 300 mg Dextrose/Sodium Chloride (D5-1/2ns -) 1,000 mls @ 42 mls/hr IV ASDIR [facility] Last Admin: 06/26/17 02:00 Dose: 42 mls/hr Immune Globulin/ Immune (Globulin) 500 mls @ 100 mls/hr IVPB DAILY [facility] Stop: 06/28/17 14:59 Last Admin: 06/26/17 11:25 Dose: 100 mls/hr Latanoprost (Xalatan 0.005% Eye Drops -) 1 drop OS HS [facility] Last Admin: 06/25/17 22:00 Dose: 1 drop Metoprolol Tartrate (Lopressor -) 12.5 mg PEG BID [facility] Last Admin: 06/26/17 11:15 Dose: Not Given Mirtazapine (Remeron -) 15 mg PEG HS [facility] Last Admin: 06/25/17 21:58 Dose: 15 mg Valsartan (Diovan -) 40 mg PEG DAILY [facility] Last Admin: 06/26/17 11:15 Dose: Not Given Vancomycin HCl (Vancomycin Oral Solution) 125 mg PEG Q6HPO [facility] Last Admin: 06/26/17 11:28 Dose: 125 mg - Objective Vital Signs: Vital Signs Temperature 97.5 F L 06/26/17 06:21 Pulse Rate 96 H 06/26/17 06:21 Respiratory Rate 20 06/26/17 06:21 Blood Pressure 97/58 06/26/17 06:21 O2 Sat by Pulse Oximetry (%) 98 06/25/17 22:00 Constitutional: Yes: No Distress Cardiovascular: Yes: Pulse Irregular Respiratory: Yes: CTA Bilaterally Gastrointestinal: Yes: Normal Bowel Sounds, Soft, Other (GT). No: Tenderness Edema: No Labs: CBC, BMP 06/26/17 06:00 INR, PTT INR 1.21 (0.82-1.09) H 06/24/17 15:33 Problem List - Problems (1) C. difficile diarrhea Assessment/Plan: GT Vanco Cdiff antigen positive Code(s): A04.72 - ENTEROCOLITIS D/T CLOSTRIDIUM DIFFICILE, NOT SPCF RECUR (2) CIDP (chronic inflammatory demyelinating polyneuropathy) Assessment/Plan: on iv IG Neuro eval appreciated Code(s): G61.81 - CHRONIC INFLAMMATORY DEMYELINATING POLYNEURITIS (3) Diarrhea Assessment/Plan: Positive Cdiff Code(s): R19.7 - DIARRHEA, UNSPECIFIED Qualifiers: Diarrhea type: unspecified type Qualified Code(s): R19.7 - Diarrhea, unspecified (4) Anemia Assessment/Plan: h/o MM in remission Velcade on hold per Oncology Code(s): D64.9 - ANEMIA, UNSPECIFIED Qualifiers: Bone marrow failure anemia type: pancytopenia, antineoplastic chemotherapy- induced (5) Atrial fibrillation Assessment/Plan: on Eliquis rate controlled Code(s): I48.91 - UNSPECIFIED ATRIAL FIBRILLATION Qualifiers: Atrial fibrillation type: paroxysmal Qualified Code(s): I48.0 - Paroxysmal atrial fibrillation
--- NOTE | 2017-06-26 12:49 | PN ---
Progress Note (short form) - Note Progress Note: Progress Note: Patient seen and examined doing ok bulbar speech AFVSS Vital Signs Period Temp Pulse Resp BP Sys/Max Pulse Ox Last 24 Hr 97.4 F-98.0 F 96-100 18-20 73-97/45-58 98 HEENT: SAY, EOM Intact Cor: RSR, No murmurs, No gallops Lungs: Clear to P&A.scattered rhonchi Abd: Soft, Normal bowel sounds, No organomegaly Skin: No rashes, Integument intact Labs: reviewed CBC, BMP 06/26/17 06:00 Active Medications Generic Name Dose Route Start Last Admin Trade Name Freq PRN Reason Stop Dose Admin Apixaban 5 mg 06/25/17 10:00 06/26/17 11:17 Eliquis - PO 5 mg BID JAMIE Administration Gabapentin 300 mg 06/25/17 10:00 06/26/17 11:16 Neurontin - PEG 300 mg BID J[facility]IE Administration Dextrose/Sodium Chloride 1,000 mls @ 42 mls/hr 06/25/17 01:15 06/26/17 02:00 D5-1/2ns - IV 42 mls/hr ASDIR JAMIE Administration Immune Globulin/ Immune 500 mls @ 100 mls/hr 06/26/17 10:00 06/26/17 11:25 Globulin IVPB 06/28/17 14:59 100 mls/hr DAILY [facility]IE Administration Insulin Aspart 0 units 06/26/17 16:30 Novolog Vial SQ ACHS JAMIE Protocol Latanoprost 1 drop 06/25/17 22:00 06/25/17 22:00 Xalatan 0.005% Eye Drops - OS 1 drop HS [facility]IE Administration Metoprolol Tartrate 12.5 mg 06/25/17 10:00 06/26/17 11:15 Lopressor - PEG Not Given BID J[facility] Mirtazapine 15 mg 06/25/17 22:00 06/25/17 21:58 Remeron - PEG 15 mg HS [facility]IE Administration Vancomycin HCl 125 mg 06/25/17 12:00 06/26/17 11:28 Vancomycin Oral Solution PEG 125 mg Q6HPO J[facility]IE Administration A/P- Problems (1) C. difficile diarrhea Assessment/Plan: Antigen positive ; toxin -negative- under therapy per GI. Code(s): A04.72 - ENTEROCOLITIS D/T CLOSTRIDIUM DIFFICILE, NOT SPCF RECUR (2) CIDP (chronic inflammatory demyelinating polyneuropathy) Assessment/Plan: Followed by Dr. Monaco. Received in past gamma globulin q 3 months. Started on IVIG todaya dn tomorrow Code(s): G61.81 - CHRONIC INFLAMMATORY DEMYELINATING POLYNEURITIS (3) Colon wall thickening Assessment/Plan: No distension of colon on Ct scanning. Not previously noted on prior CT. Has heme positive stool and positve family history of colon ca. Will need colonoscopy in future. Code(s): K63.9 - DISEASE OF INTESTINE, UNSPECIFIED (4) DVT prophylaxis Assessment/Plan: Bedridden , history of malignancy, THROMBOGENIC RISK. On eliquis for a.f. Has heme positive stool so need to monitor Hct and stool guaics. Code(s): [id number] - (5) Dysphagia Assessment/Plan: Not tolerating , p.o. . ON tube feedings. Code(s): R13.10 - DYSPHAGIA, UNSPECIFIED Qualifiers: (6) Multiple myeloma in remission Assessment/Plan: S/P TRANSPLANT AND WAS ON MAINTENANCE THERAPY WITH VELCADE AND DECADRON. THIS HAS BEEN HELD SINCE HOSPITILIZATION FOR INABILITY TO AMBULTE, DYSPHAGIA REQUIRING PEG, and NH discharge. To continue to hold on maintenance therapy. Code(s): C90.01 - MULTIPLE MYELOMA IN REMISSION (7) Anemia Assessment/Plan: Chronic disease. Check Fe++ studies. Code(s): D64.9 - ANEMIA, UNSPECIFIED Qualifiers: Qualified Code(s): D61.810 - Antineoplastic chemotherapy induced pancytopenia ; T45.1X5A - Adverse effect of antineoplastic and immunosuppressive drugs, initial encounter; T45.1X5A - Adverse effect of antineoplastic and immunosuppressive drugs, initial encounter
[2017-06-26 13:44] LABS: ANION GAP 16 (8-16); BLOOD UREA NITROGEN 14 mg/dl (7-18); CALCIUM 8.7 mg/dl (8.4-10.2); CHLORIDE 111 mmol/L (98-107); CO2 19 mmol/L (22-28); CREATININE 0.8 mg/dl (0.6-1.3); GLUCOSE,RANDOM 84 mg/dl (74-106); POTASSIUM 3.8 mmol/L (3.5-5.1); SODIUM 146 mmol/L (136-145)
[2017-06-26 13:45] LABS: MAGNESIUM 2.3 mg/dL (1.8-2.4); PHOSPHOROUS 4.7 mg/dl (2.5-4.6)
[2017-06-26] MEDS: INSULIN SLIDING SCALE (NOVOLOG) 1 VIAL SQ SCH ×2 (17:40→21:57)
--- NOTE | 2017-06-26 17:53 | PN ---
Progress Note (short form) - Note Progress Note: NEUROLOGY FOLLOW-UP: Events reviewed and discussed with family at bedside. S/P 50 gm of IVIg today. Tolerated well. Has not tried PO, but, diarrhea has completely resolved off PEG feedings. EXAM: Dysarthria is improved. Intrinsic finger strength now normal. Ankle dorsiflexion improved, now 4+/5 on the right and 4/5 on the left. IMP: C.I.D.P. improving on IVIg. Diarrhea, resolved at this time. Etiology of dysphagia remains to be determined. SUGGEST: Complete IVIg 50 gm Sun and Mon Hold PEG feeds for now then try different feed Could try PO swallow after IVIg but suspect UGI endoscopy will be necessary. Thank you very much, Shahriar Monaco MD
[2017-06-26] MEDS: LATANOPROST 0.005% OPHTH SOLN 2.5ML BOTTLE OS SCH (21:58)
[2017-06-26] MEDS: MIRTAZAPINE 15 MG TABLET (FP) PEG SCH (21:59)
[2017-06-27] MEDS: INSULIN SLIDING SCALE (NOVOLOG) 1 VIAL SQ SCH ×4 (06:31→21:56)
[2017-06-27] MEDS: VANCOMYCIN 250 MG/5 ML ORAL SOLUTION PEG SCH ×4 (06:32→18:19)
[2017-06-27] MEDS: DEXTROSE 5%-0.45% SALINE 1,000 ML IV SCH (06:34)
[2017-06-27 06:36] LABS: IGA IMMUNOGLOBULIN 91 mg/dL (61-437); IGG IMMUNOGLOBULIN 800 mg/dL (700-1600); IGM IMMUNOGLOBULIN 23 mg/dL (15-143)
[2017-06-27] MEDS: APIXABAN 5 MG TABLET PO SCH ×2 (11:04→21:55)
[2017-06-27] MEDS: GABAPENTIN 300 MG CAPSULE (FP) PEG SCH ×2 (11:05→21:56)
[2017-06-27] MEDS: METOPROLOL TARTRATE 25 MG TABLET (FP) PEG SCH ×2 (11:05→22:00)
[2017-06-27] MEDS: IMMUNE GLOB,GAM CAPRYLATE(IGG) 40 GM, IMMUNE GLOBULIN (IgG) 10 GM IVPB SCH (11:56)
--- NOTE | 2017-06-27 12:05 | PN ---
Progress Note, Physician Chief Complaint: no complaints no diarrhea so far - Current Medication List Current Medications: Active Medications Apixaban (Eliquis -) 5 mg PO BID [facility] Last Admin: 06/27/17 11:04 Dose: 5 mg Gabapentin (Neurontin -) 300 mg PEG BID [facility] Last Admin: 06/27/17 11:05 Dose: 300 mg Dextrose/Sodium Chloride (D5-1/2ns -) 1,000 mls @ 42 mls/hr IV ASDIR [facility] Last Admin: 06/27/17 06:34 Dose: 42 mls/hr Immune Globulin/ Immune (Globulin) 500 mls @ 100 mls/hr IVPB DAILY [facility] Stop: 06/28/17 14:59 Last Admin: 06/27/17 11:56 Dose: 100 mls/hr Insulin Aspart (Novolog Vial Sliding Scale -) 1 vial SQ ACHS [facility] PRN Reason: Protocol Last Admin: 06/27/17 11:14 Dose: Not Given Latanoprost (Xalatan 0.005% Eye Drops -) 1 drop OS HS [facility] Last Admin: 06/26/17 21:58 Dose: 1 drop Metoprolol Tartrate (Lopressor -) 12.5 mg PEG BID [facility] Last Admin: 06/27/17 11:05 Dose: 12.5 mg Mirtazapine (Remeron -) 15 mg PEG HS [facility] Last Admin: 06/26/17 21:59 Dose: 15 mg Vancomycin HCl (Vancomycin Oral Solution) 125 mg PEG Q6HPO [facility] Last Admin: 06/27/17 06:32 Dose: 125 mg - Objective Vital Signs: Vital Signs Temperature 98.4 F 06/27/17 06:42 Pulse Rate 99 H 06/27/17 06:42 Respiratory Rate 20 06/27/17 06:42 Blood Pressure 102/64 06/27/17 06:42 O2 Sat by Pulse Oximetry (%) 98 06/26/17 22:00 Constitutional: Yes: No Distress Cardiovascular: Yes: Regular Rate and Rhythm Respiratory: Yes: CTA Bilaterally Gastrointestinal: Yes: Normal Bowel Sounds, Soft, Abdomen, Obese, Other (GT). No: Tenderness Edema: No Labs: CBC, BMP 06/26/17 06:00 06/26/17 06:00 INR, PTT INR 1.21 (0.82-1.09) H 06/24/17 15:33 Problem List - Problems (1) C. difficile diarrhea Assessment/Plan: GT Vanco Cdiff antigen positive Code(s): A04.72 - ENTEROCOLITIS D/T CLOSTRIDIUM DIFFICILE, NOT SPCF RECUR (2) CIDP (chronic inflammatory demyelinating polyneuropathy) Assessment/Plan: on iv IG--DAY 2 Neuro eval appreciated swallow eval and MBS tomorrow -- trial of PO if possible Code(s): G61.81 - CHRONIC INFLAMMATORY DEMYELINATING POLYNEURITIS (3) Diarrhea Assessment/Plan: Positive Cdiff Code(s): R19.7 - DIARRHEA, UNSPECIFIED Qualifiers: Diarrhea type: unspecified type Qualified Code(s): R19.7 - Diarrhea, unspecified (4) Anemia Assessment/Plan: h/o MM in remission Velcade on hold per Oncology Code(s): D64.9 - ANEMIA, UNSPECIFIED Qualifiers: Bone marrow failure anemia type: pancytopenia, antineoplastic chemotherapy- induced (5) Atrial fibrillation Assessment/Plan: on Eliquis rate controlled Code(s): I48.91 - UNSPECIFIED ATRIAL FIBRILLATION Qualifiers: Atrial fibrillation type: paroxysmal Qualified Code(s): I48.0 - Paroxysmal atrial fibrillation
[2017-06-27 14:08] LABS: SERUM IRON SATURATION 32 % (15-55); TOTAL IRON BINDING CAPACITY 231 ug/dL (250-450); UIBC 157 ug/dL (111-343)
[2017-06-27] MEDS ORDERED: PT OWN MED DRAWER 7, Y5N ONE (18:03)
--- NOTE | 2017-06-27 20:58 | PN ---
Progress Note, Physician Chief Complaint: Not in distress History of Present Illness: Patient was seen and examined. Awake and alert. Chart was reviewed Denies chest pain, SOB or palpitations - Current Medication List Current Medications: Active Medications Apixaban (Eliquis -) 5 mg PO BID [facility] Last Admin: 06/27/17 11:04 Dose: 5 mg Gabapentin (Neurontin -) 300 mg PEG BID [facility] Last Admin: 06/27/17 11:05 Dose: 300 mg Immune Globulin/ Immune (Globulin) 500 mls @ 100 mls/hr IVPB DAILY [facility] Stop: 06/28/17 14:59 Last Admin: 06/27/17 11:56 Dose: 100 mls/hr Insulin Aspart (Novolog Vial Sliding Scale -) 1 vial SQ ACHS [facility] PRN Reason: Protocol Last Admin: 06/27/17 18:06 Dose: Not Given Latanoprost (Xalatan 0.005% Eye Drops -) 1 drop OS HS [facility] Last Admin: 06/26/17 21:58 Dose: 1 drop Metoprolol Tartrate (Lopressor -) 12.5 mg PEG BID [facility] Last Admin: 06/27/17 11:05 Dose: 12.5 mg Mirtazapine (Remeron -) 15 mg PEG HS [facility] Last Admin: 06/26/17 21:59 Dose: 15 mg Vancomycin HCl (Vancomycin Oral Solution) 125 mg PEG Q6HPO [facility] Last Admin: 06/27/17 18:19 Dose: 125 mg - Objective Vital Signs: Vital Signs Temperature 97.7 F 06/27/17 16:30 Pulse Rate 83 06/27/17 16:30 Respiratory Rate 20 06/27/17 16:30 Blood Pressure 96/58 06/27/17 16:30 O2 Sat by Pulse Oximetry (%) 98 06/26/17 22:00 Constitutional: Yes: No Distress Eyes: Yes: PERRL HENT: Yes: Atraumatic Neck: Yes: Supple Cardiovascular: Yes: Regular Rate and Rhythm, S1, S2 Respiratory: Yes: CTA Bilaterally Gastrointestinal: Yes: Normal Bowel Sounds, Soft. No: Tenderness Edema: No Problem List - Problems (1) C. difficile diarrhea Code(s): A04.72 - ENTEROCOLITIS D/T CLOSTRIDIUM DIFFICILE, NOT SPCF RECUR (2) CIDP (chronic inflammatory demyelinating polyneuropathy) Code(s): G61.81 - CHRONIC INFLAMMATORY DEMYELINATING POLYNEURITIS (3) Dysphagia Code(s): R13.10 - DYSPHAGIA, UNSPECIFIED Qualifiers: Dysphagia type: oropharyngeal phase Qualified Code(s): R13.12 - Dysphagia, oropharyngeal phase (4) Anemia Code(s): D64.9 - ANEMIA, UNSPECIFIED Qualifiers: Bone marrow failure anemia type: pancytopenia, antineoplastic chemotherapy- induced (5) Atrial fibrillation Code(s): I48.91 - UNSPECIFIED ATRIAL FIBRILLATION Qualifiers: Atrial fibrillation type: paroxysmal Qualified Code(s): I48.0 - Paroxysmal atrial fibrillation (6) CAD (coronary artery disease) Code(s): I25.10 - ATHSCL HEART DISEASE OF [place] CORONARY ARTERY W/O ANG PCTRS Qualifiers: Coronary Disease-Associated Artery/Lesion type: [place] artery [place] vs. 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: without intermediate use Diabetes mellitus complication status: without complication Qualified Code(s): E11.9 - Type 2 diabetes mellitus without complications (8) Diastolic dysfunction Code(s): I51.9 - HEART DISEASE, UNSPECIFIED (9) HTN (hypertension) Code(s): I10 - ESSENTIAL (PRIMARY) HYPERTENSION Qualifiers: Hypertension type: essential hypertension Qualified Code(s): I10 - Essential (primary) hypertension (10) Hypercholesterolemia Code(s): E78.00 - PURE HYPERCHOLESTEROLEMIA, UNSPECIFIED (11) Multiple myeloma Code(s): C90.00 - MULTIPLE MYELOMA NOT HAVING ACHIEVED REMISSION Qualifiers: Multiple myeloma remission status: not in remission Qualified Code(s): C90.00 - Multiple myeloma not having achieved remission (12) Schatzki's ring of distal esophagus Code(s): K22.2 - ESOPHAGEAL OBSTRUCTION (13) Status post insertion of percutaneous endoscopic gastrostomy (PEG) tube Code(s): Z93.1 - GASTROSTOMY STATUS Assessment/Plan 1. Diarrhea with positive C. Diff antigen 2. Dysphagia post PEG placement and Schatzki's ring dilatation - CIDP with bulbar involvement related to myeloma paraprotein 3. Symptomatic anemia post transfusion 4. Paroxysmal atrial fibrillation with periods of rapid ventricular response currently in sinus rhythm [id number] score of 3, on A/C therapy with NOAC ( Eliquis) 5. Coronary artery disease angina pectoris 6. LV diastolic dysfunction with chronic class 0-I NYHA classification LV failure, compensated/euvolemic 7. Hypertension 8. DM 9. Hypercholesterolemia 10. Thrombocytopenia 11. History of multiple myeloma post stem cell transplant 12. History of peripheral neuropathy PLAN: 1. Continue course of antibiotics - eventual colonoscopy once clinically stable 2. Continue Eliquis 5 bid with caution and close monitoring of CBC maintaining Hgb equal or > 8.0 3. Continue Lopressor and Diovan as tolerated Further plans are to follow Dmitri Ngo MD
[2017-06-27] MEDS: LATANOPROST 0.005% OPHTH SOLN 2.5ML BOTTLE OS SCH (21:55)
[2017-06-27] MEDS: MIRTAZAPINE 15 MG TABLET (FP) PEG SCH (21:56)
[2017-06-28] MEDS: VANCOMYCIN 250 MG/5 ML ORAL SOLUTION PEG SCH ×4 (05:50→18:06)
[2017-06-28] MEDS ORDERED: PT OWN MED DRAWER 7, Y5N ONE ×2 (06:28→10:18)
[2017-06-28] MEDS: INSULIN SLIDING SCALE (NOVOLOG) 1 VIAL SQ SCH ×4 (07:01→21:02)
--- NOTE | 2017-06-28 10:02 | PN ---
Progress Note, Physician History of Present Illness: Patient seen and examined. Chart reviewed. Events noted. All consults noted and appreciated. On IVIG. Patient reports diarrhea improved. Still not eating. - Current Medication List Current Medications: Active Medications Apixaban (Eliquis -) 5 mg PO BID [facility] Last Admin: 06/27/17 21:55 Dose: 5 mg Gabapentin (Neurontin -) 300 mg PEG BID [facility] Last Admin: 06/27/17 21:56 Dose: 300 mg Immune Globulin/ Immune (Globulin) 500 mls @ 100 mls/hr IVPB DAILY [facility] Stop: 06/28/17 14:59 Last Admin: 06/27/17 11:56 Dose: 100 mls/hr Insulin Aspart (Novolog Vial Sliding Scale -) 1 vial SQ ACHS [facility] PRN Reason: Protocol Last Admin: 06/28/17 07:01 Dose: Not Given Latanoprost (Xalatan 0.005% Eye Drops -) 1 drop OS HS [facility] Last Admin: 06/27/17 21:55 Dose: 1 drop Metoprolol Tartrate (Lopressor -) 12.5 mg PEG BID [facility] Last Admin: 06/27/17 22:00 Dose: Not Given Mirtazapine (Remeron -) 15 mg PEG HS [facility] Last Admin: 06/27/17 21:56 Dose: 15 mg Vancomycin HCl (Vancomycin Oral Solution) 125 mg PEG Q6HPO [facility] Last Admin: 06/28/17 05:50 Dose: 125 mg - Objective Vital Signs: Vital Signs Temperature 97.6 F 06/28/17 06:59 Pulse Rate 94 H 06/28/17 06:59 Respiratory Rate 24 06/28/17 06:59 Blood Pressure 96/68 06/28/17 06:59 O2 Sat by Pulse Oximetry (%) 98 06/26/17 22:00 Constitutional: Yes: No Distress, Calm Neck: Yes: Supple Cardiovascular: Yes: Regular Rate and Rhythm Respiratory: Yes: CTA Bilaterally Gastrointestinal: Yes: Soft, Other (status post G-tube) Edema: No Neurological: Yes: Alert Psychiatric: Yes: Alert Labs: CBC, BMP 06/26/17 06:00 06/26/17 06:00 INR, PTT INR 1.21 (0.82-1.09) H 06/24/17 15:33 Problem List - Problems (1) C. difficile diarrhea Code(s): A04.72 - ENTEROCOLITIS D/T CLOSTRIDIUM DIFFICILE, NOT SPCF RECUR (2) CIDP (chronic inflammatory demyelinating polyneuropathy) Code(s): G61.81 - CHRONIC INFLAMMATORY DEMYELINATING POLYNEURITIS (3) Colon wall thickening Code(s): K63.9 - DISEASE OF INTESTINE, UNSPECIFIED (4) Dysphagia Code(s): R13.10 - DYSPHAGIA, UNSPECIFIED Qualifiers: Dysphagia type: oropharyngeal phase Qualified Code(s): R13.12 - Dysphagia, oropharyngeal phase (5) Atrial fibrillation Code(s): I48.91 - UNSPECIFIED ATRIAL FIBRILLATION Qualifiers: Atrial fibrillation type: paroxysmal Qualified Code(s): I48.0 - Paroxysmal atrial fibrillation (6) CAD (coronary artery disease) Code(s): I25.10 - ATHSCL HEART DISEASE OF [place] CORONARY ARTERY W/O ANG PCTRS Qualifiers: Coronary Disease-Associated Artery/Lesion type: [place] artery [place] vs. transplanted heart: [place] heart Associated angina: without angina Qualified Code(s): I25.10 - Atherosclerotic heart disease of [place] coronary artery without angina pectoris (7) Diabetes mellitus Code(s): E11.9 - TYPE 2 DIABETES MELLITUS WITHOUT COMPLICATIONS Qualifiers: Diabetes mellitus type: type 2 Diabetes mellitus alf insulin use: without terminal worker use Diabetes mellitus complication status: without complication Qualified Code(s): E11.9 - Type 2 diabetes mellitus without complications (8) Diarrhea Code(s): R19.7 - DIARRHEA, UNSPECIFIED (9) Multiple myeloma Code(s): C90.00 - MULTIPLE MYELOMA NOT HAVING ACHIEVED REMISSION Qualifiers: Multiple myeloma remission status: not in remission Qualified Code(s): C90.00 - Multiple myeloma not having achieved remission (10) Status post insertion of percutaneous endoscopic gastrostomy (PEG) tube Code(s): Z93.1 - GASTROSTOMY STATUS (11) Thrombocytopenia Code(s): D69.6 - THROMBOCYTOPENIA, UNSPECIFIED Assessment/Plan discussed with patient. Continue present care IVIG Swallowing evaluation Continue vancomycin for C. difficile C. difficile precautions in place Colonoscopy to be done--- when diarrhea resolves. Monitor lites. Will follow. I discussed with the nursing staff also.
[2017-06-28] MEDS: METOPROLOL TARTRATE 25 MG TABLET (FP) PEG SCH ×2 (10:30→21:00)
[2017-06-28] MEDS: GABAPENTIN 300 MG CAPSULE (FP) PEG SCH ×2 (10:31→21:00)
[2017-06-28] MEDS: APIXABAN 5 MG TABLET PO SCH ×2 (10:31→20:59)
[2017-06-28] MEDS: IMMUNE GLOB,GAM CAPRYLATE(IGG) 40 GM, IMMUNE GLOBULIN (IgG) 10 GM IVPB SCH (11:42)
--- NOTE | 2017-06-28 11:47 | CONSULT ---
Admitting History and Physical - Primary Care Physician PCP: Kristal Cannon - Admission History of Present Illness: Pt well known to me from recent admission with symtoms of responsive gagging/ heaving following PO intake. Pt was scoped twice by GI,during last EGD, Schatzki ring was found and disrupted with biopsies and dilation to 20mm with a balloon. PEG was inserted due to inability to accept sufficient food/liquid without heaving. Cynthia/pharyngeal dysphagia was not identified. Per Neurology, "after IVIg treatment his dysphagia, dysarthria and weakness improved." Pt was able to eat fairly well at [facility], until a few weeks ago when heaving resumed. He was sent back to me for an out pt MBS on 06/04/17. Oral/pharyngeal/esophageal swallow was WNL, although, study was limited with pt beginning to cough then heave, after second trial sip of Barium. Upon my evaluation of the oral cavity on that day, there was a thick white coating on pt 's tongue and buccal cavity patches c/w candidiasis. Pt was treated for Jenifer at [facility]. He has not attempted PO trials since. He has had diarrhea ddx relayted to PEG feedings, C Diff. W/u in progress. He has not vomited in the past but HEAVES immediately after po intake. 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 Cardiovascular: Yes: AFIB (on Eliquis), HTN Gastrointestinal: Yes: Other (dysphagia; dilatation of Schatzki ring ; PEG ) Heme/Onc: Yes: Cancer (Multiple myeloma, s/p transplant) Psych: Yes: Depression Musculoskeletal: Yes: Chronic low back pain, Osteoarthritis Endocrine: Yes: Diabetes Mellitus - Past Surgical History Additional Past Surgical History: PEG placement - Advance Directives Advance Directives: Yes: DNR - Smoking History Smoking history: Former smoker Have you smoked in the past 12 months: No If you are a former smoker, when did you quit?: 40yrs - Alcohol/Substance Use Hx Alcohol Use: No History of Substance Use: reports: None - Social History ADL: Support Services History of Recent Travel: No History - Admission Reason For Visit: CHRONIC INFLAMATORY DEMYELINATING POLYNEUROPATHY - General Mental Status: Alert and Oriented, Awake and Alert, Able to Follow Commands Attention: Intact - Hearing Hearing: Normal Speech Evaluation - Communication Primary Language: CHINESE Communication: Yes: Within Normal Limits Oral Expression Ability: Yes: No Impairment - Speech Characteristics Articulation: Yes: Precise - Swallow Evaluation/Bedside Assessment Current Nutritional Intake: NPO Oral Secretions: Yes: WFL Dentition: Yes: Adequate Facial Symmetry at Rest: Symmetrical Facial Symmetry on Retraction: Symmetrical Sensation: Normal Against Resistance Opening: Normal Against Resistance Closing: Normal Pucker Lips: Normal Smile: Normal Lingual Movement: Normal, Symmetric Lingual Speed of Movement: Normal Lingual Movement Strgth Against Opposition: Normal Lingual Movement Characteristics: Normal Velopharyngeal Movement: Normal Laryngeal Elevation: WFL Laryngeal Movement: Able to Palpate Labial Seal: WFL Oral Prep Time: WFL A-P Transit: WFL Timing of Swallow: WFL Coughing/Throat Clear: Yes (cough/heave with 1 sip of water, seated in upright) Recommendations - Speech Evaluation, Impression/Plan Impression: Upon assessment, still immediate cough/heave following sip of water. . No history of true vomiting but heaving. Strongly doubt motor, structural,mechanical etiology. Tongue somewhat coated- mouth care needed/ unlikely recurrent jenifer? Per Neurology, "after IVIg treatment his dysphagia , dysarthria and weakness improved," during last admission, with pt eating well for a while until symptoms returned. With CIDP, I wonder if possible impaired sensory function could result in heaving? Will pt again benefit from IVIg tx? - Dysphagia Impressions/Plan Dysphagia Impressions: Ongoing Evaluation *Silent aspiration: cannot be R/O at bedside Recommendations: Modified Barium Swallow (Ordered but not indicated at this time ), Other (mouth care/r/o jenifer esophageal motility study as out pt.) - Recommendations Diet Consistency: Other (continue PEG feedings. Periodic trial of sip of liquid/ bite of puree.)
--- NOTE | 2017-06-28 11:54 | PN ---
GI Progress Note Subjective: Mr. Rachel states that diarrhea improved in terms of consistency and frequency Abdominal pain improved - Objective Vital Signs: Vital Signs Temperature 97.6 F 06/28/17 06:59 Pulse Rate 94 H 06/28/17 06:59 Respiratory Rate 24 06/28/17 06:59 Blood Pressure 96/68 06/28/17 06:59 O2 Sat by Pulse Oximetry (%) 98 06/26/17 22:00 Constitutional: Calm Eyes: No: Sclera Icterus Cardiovascular: Yes: Regular Rate and Rhythm Respiratory: Yes: CTA Bilaterally Gastrointestinal Inspection: No: Distention ...Auscultate: Yes: Normoactive Bowel Sounds ...Palpate: No: Tenderness ...Percussion: No: Tympanitic Edema: No (No LE edema) Neurological: Yes: Alert, Oriented Labs: CBC, BMP 06/26/17 06:00 06/26/17 06:00 INR, PTT INR 1.21 (0.82-1.09) H 06/24/17 15:33 Problem List - Problems (1) Diarrhea Assessment/Plan: Being treated for presumed C. Diff On PO Vanco 125mg PO q 6 hrs Colonoscopy for follow-up after treatment of C. Diff when diarrhea improved for f/u of CT scan finding and guaiac positive stool Code(s): R19.7 - DIARRHEA, UNSPECIFIED Qualifiers: Diarrhea type: unspecified type Qualified Code(s): R19.7 - Diarrhea, unspecified
--- NOTE | 2017-06-28 12:42 | PN ---
Progress Note, Physician History of Present Illness: Abd pain and diarrhea improving on therapy. Receiving IVIG, but dysphagia persists, weakness improved. - Current Medication List Current Medications: Active Medications Apixaban (Eliquis -) 5 mg PO BID [facility] Last Admin: 06/28/17 10:31 Dose: 5 mg Gabapentin (Neurontin -) 300 mg PEG BID [facility] Last Admin: 06/28/17 10:31 Dose: 300 mg Immune Globulin/ Immune (Globulin) 500 mls @ 100 mls/hr IVPB DAILY [facility] Stop: 06/28/17 14:59 Last Admin: 06/28/17 11:42 Dose: 100 mls/hr Insulin Aspart (Novolog Vial Sliding Scale -) 1 vial SQ ACHS [facility] PRN Reason: Protocol Last Admin: 06/28/17 12:24 Dose: Not Given Latanoprost (Xalatan 0.005% Eye Drops -) 1 drop OS HS [facility] Last Admin: 06/27/17 21:55 Dose: 1 drop Metoprolol Tartrate (Lopressor -) 12.5 mg PEG BID [facility] Last Admin: 06/28/17 10:30 Dose: Not Given Mirtazapine (Remeron -) 15 mg PEG HS [facility] Last Admin: 06/27/17 21:56 Dose: 15 mg Vancomycin HCl (Vancomycin Oral Solution) 125 mg PEG Q6HPO [facility] Last Admin: 06/28/17 12:21 Dose: 125 mg - Objective Vital Signs: Vital Signs Temperature 97.6 F 06/28/17 06:59 Pulse Rate 94 H 06/28/17 06:59 Respiratory Rate 24 06/28/17 06:59 Blood Pressure 96/68 06/28/17 06:59 O2 Sat by Pulse Oximetry (%) 98 06/26/17 22:00 Constitutional: Yes: No Distress, Calm Neck: Yes: Supple Cardiovascular: Yes: Regular Rate and Rhythm Respiratory: Yes: Regular, Diminished Gastrointestinal: Yes: Normal Bowel Sounds, Soft, Abdomen, Obese Edema: No Labs: CBC, BMP 06/26/17 06:00 06/26/17 06:00 INR, PTT INR 1.21 (0.82-1.09) H 06/24/17 15:33 Problem List - Problems (1) C. difficile diarrhea Code(s): A04.72 - ENTEROCOLITIS D/T CLOSTRIDIUM DIFFICILE, NOT SPCF RECUR (2) CIDP (chronic inflammatory demyelinating polyneuropathy) Code(s): G61.81 - CHRONIC INFLAMMATORY DEMYELINATING POLYNEURITIS (3) Colon wall thickening Code(s): K63.9 - DISEASE OF INTESTINE, UNSPECIFIED (4) Dysphagia Code(s): R13.10 - DYSPHAGIA, UNSPECIFIED Qualifiers: Dysphagia type: oropharyngeal phase Qualified Code(s): R13.12 - Dysphagia, oropharyngeal phase (5) Nausea & vomiting Code(s): R11.2 - NAUSEA WITH VOMITING, UNSPECIFIED Qualifiers: Vomiting type: unspecified (6) Anemia Code(s): D64.9 - ANEMIA, UNSPECIFIED Qualifiers: Bone marrow failure anemia type: pancytopenia, antineoplastic chemotherapy- induced (7) Atrial fibrillation Code(s): I48.91 - UNSPECIFIED ATRIAL FIBRILLATION Qualifiers: Atrial fibrillation type: paroxysmal Qualified Code(s): I48.0 - Paroxysmal atrial fibrillation (8) CAD (coronary artery disease) Code(s): I25.10 - ATHSCL HEART DISEASE OF [place] CORONARY ARTERY W/O ANG PCTRS Qualifiers: Coronary Disease-Associated Artery/Lesion type: [place] artery [place] vs. transplanted heart: [place] heart Associated angina: without angina Qualified Code(s): I25.10 - Atherosclerotic heart disease of [place] coronary artery without angina pectoris (9) Diabetes mellitus Code(s): E11.9 - TYPE 2 DIABETES MELLITUS WITHOUT COMPLICATIONS Qualifiers: Diabetes mellitus type: type 2 Diabetes mellitus assisted insulin use: without terminal computer operator use Diabetes mellitus complication status: without complication Qualified Code(s): E11.9 - Type 2 diabetes mellitus without complications (10) Diastolic dysfunction Code(s): I51.9 - HEART DISEASE, UNSPECIFIED (11) HTN (hypertension) Code(s): I10 - ESSENTIAL (PRIMARY) HYPERTENSION Qualifiers: Hypertension type: essential hypertension Qualified Code(s): I10 - Essential (primary) hypertension (12) Hypercholesterolemia Code(s): E78.00 - PURE HYPERCHOLESTEROLEMIA, UNSPECIFIED (13) Multiple myeloma in remission Code(s): C90.01 - MULTIPLE MYELOMA IN REMISSION (14) Status post insertion of percutaneous endoscopic gastrostomy (PEG) tube Code(s): Z93.1 - GASTROSTOMY STATUS Assessment/Plan 1. Diarrhea with positive C. Diff antigen 2. Dysphagia post PEG placement and Schatzki's ring dilatation - CIDP with bulbar involvement related to myeloma paraprotein 3. Symptomatic anemia post transfusion 4. Paroxysmal atrial fibrillation with periods of rapid ventricular response currently in sinus rhythm [id number] score of 3, on A/C therapy with NOAC ( Eliquis) 5. Coronary artery disease angina pectoris 6. LV diastolic dysfunction with chronic class 0-I NYHA classification LV failure, compensated/euvolemic 7. Hypertension 8. DM 9. Hypercholesterolemia 10. Thrombocytopenia 11. History of multiple myeloma post stem cell transplant 12. History of peripheral neuropathy PLAN: 1. Continue course of oral vanco - eventual colonoscopy once clinically stable 2. Continue Eliquis 5 bid with caution and close monitoring of CBC maintaining Hgb equal or > 8.0 3. Continue Lopressor 12.5 bid as tolerated 4. Complete IVIG course
[2017-06-28] MEDS: LATANOPROST 0.005% OPHTH SOLN 2.5ML BOTTLE OS SCH (20:59)
[2017-06-28] MEDS: MIRTAZAPINE 15 MG TABLET (FP) PEG SCH (21:00)
--- NOTE | 2017-06-28 22:52 | PN ---
Progress Note (short form) - Note Progress Note: patient seen and examined c/o dysphagia Last Vital Signs Temp Pulse Resp BP Pulse Ox 99.1 F 94 H 20 106/48 97 06/28/17 17:11 06/28/17 17:11 06/28/17 21:00 06/28/17 17:11 06/28/17 21:00 Cor: RSR, No murmurs, No gallops Lungs: Clear to P&A Abd: Soft, Normal bowel sounds, No organomegaly Ext:No significant edema labs/meds reviewed a/p myeloma--in remission. maintenance velcade on hold C.I.D.P.on maintenance IVIg. Diarrhea, -- c.diff ag+, on PO vanco dysphagia--to discuss with gi team
[2017-06-29] MEDS: VANCOMYCIN 250 MG/5 ML ORAL SOLUTION PEG SCH ×3 (06:44→14:25)
[2017-06-29] MEDS: INSULIN SLIDING SCALE (NOVOLOG) 1 VIAL SQ SCH ×2 (06:46→14:03)
[2017-06-29] MEDS: APIXABAN 5 MG TABLET PO SCH (10:15)
[2017-06-29] MEDS: METOPROLOL TARTRATE 25 MG TABLET (FP) PEG SCH (10:15)
[2017-06-29] MEDS: GABAPENTIN 300 MG CAPSULE (FP) PEG SCH (10:15)
--- NOTE | 2017-06-29 10:30 | PN ---
Progress Note, Physician Chief Complaint: see dc summary - Current Medication List Current Medications: Active Medications Apixaban (Eliquis -) 5 mg PO BID [facility] Last Admin: 06/29/17 10:15 Dose: 5 mg Gabapentin (Neurontin -) 300 mg PEG BID [facility] Last Admin: 06/29/17 10:15 Dose: 300 mg Insulin Aspart (Novolog Vial Sliding Scale -) 1 vial SQ ACHS [facility] PRN Reason: Protocol Last Admin: 06/29/17 06:46 Dose: Not Given Latanoprost (Xalatan 0.005% Eye Drops -) 1 drop OS HS [facility] Last Admin: 06/28/17 20:59 Dose: 1 drop Metoprolol Tartrate (Lopressor -) 12.5 mg PEG BID [facility] Last Admin: 06/29/17 10:15 Dose: 12.5 mg Mirtazapine (Remeron -) 15 mg PEG HS [facility] Last Admin: 06/28/17 21:00 Dose: 15 mg Vancomycin HCl (Vancomycin Oral Solution) 125 mg PEG Q6HPO [facility] Last Admin: 06/29/17 06:44 Dose: 125 mg - Objective Vital Signs: Vital Signs Temperature 98.5 F 06/29/17 06:59 Pulse Rate 96 H 06/29/17 06:59 Respiratory Rate 20 06/29/17 06:59 Blood Pressure 107/60 06/29/17 06:59 O2 Sat by Pulse Oximetry (%) 97 06/28/17 21:00 Labs: CBC, BMP 06/26/17 06:00 06/26/17 06:00 INR, PTT INR 1.21 (0.82-1.09) H 06/24/17 15:33 Problem List - Problems (1) C. difficile diarrhea Code(s): A04.72 - ENTEROCOLITIS D/T CLOSTRIDIUM DIFFICILE, NOT SPCF RECUR (2) CIDP (chronic inflammatory demyelinating polyneuropathy) Code(s): G61.81 - CHRONIC INFLAMMATORY DEMYELINATING POLYNEURITIS (3) Diarrhea Code(s): R19.7 - DIARRHEA, UNSPECIFIED Qualifiers: Diarrhea type: unspecified type Qualified Code(s): R19.7 - Diarrhea, unspecified (4) Anemia Code(s): D64.9 - ANEMIA, UNSPECIFIED Qualifiers: Bone marrow failure anemia type: pancytopenia, antineoplastic chemotherapy- induced (5) Atrial fibrillation Code(s): I48.91 - UNSPECIFIED ATRIAL FIBRILLATION Qualifiers: Atrial fibrillation type: paroxysmal Qualified Code(s): I48.0 - Paroxysmal atrial fibrillation
--- NOTE | 2017-06-29 11:41 | DS ---
Physical Examination Vital Signs: Vital Signs Temperature 98.5 F 06/29/17 06:59 Pulse Rate 96 H 06/29/17 06:59 Respiratory Rate 20 06/29/17 06:59 Blood Pressure 107/60 06/29/17 06:59 O2 Sat by Pulse Oximetry (%) 97 06/28/17 21:00 Constitutional: Yes: No Distress, Calm Cardiovascular: Yes: Regular Rate and Rhythm Respiratory: Yes: CTA Bilaterally Gastrointestinal: Yes: Normal Bowel Sounds, Soft, Other (GT). No: Tenderness Edema: No Labs: CBC, BMP 06/26/17 06:00 06/26/17 06:00 Discharge Summary Reason For Visit: CHRONIC INFLAMATORY DEMYELINATING POLYNEUROPATHY Current Active Problems C. difficile diarrhea (Acute) CIDP (chronic inflammatory demyelinating polyneuropathy) (Acute) Colon wall thickening (Acute) DVT prophylaxis (Acute) Diarrhea (Acute) Dysphagia (Acute) Nausea & vomiting (Acute) Hospital Course: Admission Note - Primary Care Physician PCP: Kristal Cannon - Admission Chief Complaint: vomiting and diarrhea History of Present Illness: This is a 71 y/o man from [facility]. Who presents to the ED with vomiting and diarrhea x 5 weeks. Patient was admitted for Dysphagia 04/2017, found to have an esophageal ring possible inflammatory neuropathy- s/p PEG Tube Placement. Patient reports every time he tries to eat he has episodes of vomiting. Patient reports having R- sided abdominal pain, diarrhea- which he attributes to the tube feedings. Patient denies fever, chills, cough, dizziness, SOB, CP, constipation, dysuria. Oncology: Dr Gomez Hospitalization Course seen by Neurology, GI and Geotechnician Found to have acute exacerbation of CIDP-- received 3 doses of iv IG positive for cdiff-- on GT Vanco Diarrhea improving Not able to swallow PO -- on GT feeds -- assessed by swallow therapist -- not recommending barium swallow at this time since he had this recently Multiple Myeloma-- Valcade on hold Continue with meds Will need swallow evaluation and follow up at the [facility] . He will also need outpt followup with GI after course of GT Vanco Maintain GT feeds Condition: Improved - Instructions Diet, Activity, Other Instructions: Please call the restorer paper and prints and schedule and appointment for further eval of colonic thickening found on your CT Referrals: Kisha Fuller MD [Staff Physician] - Kristal Cannon MD [Primary Care Provider] - Disposition[facility] - Home Medications Comprehensive Discharge Medication List: Ambulatory Orders Gabapentin 300 mg PEG BID 10/04/16 Apixaban [Eliquis -] 5 mg PO BID tablet 05/03/17 Mirtazapine [Remeron -] 15 mg PO HS tablet 05/03/17 Naph,Mb-Db/K pH,Mbdb [PHOS-NaK PACKET -] 1 packet GT TID pow 05/03/17 Nystatin Powder [Nystop Powder -] 1 applic TP DAILY applic 05/03/17 Zinc Oxide 1 applic TP DAILY tube 05/03/17 Valsartan [Diovan] 40 mg PO DAILY tablet 05/11/17 Insulin Sliding Scale [Novolog Vial Sliding Scale -] 1 vial SQ ASDIR 06/24/17 Latanoprost 0.005% Eye Drops [Xalatan 0.005% Eye Drops -] 1 drop OS HS 06/24/17 Omeprazole 40 mg PEG BID 06/24/17 Saliva Stimulant Comb. No.3 [Biotene Moisturizing Mouth] 44.3 ml MM DAILY Vancomycin HCl 125 mg PEG QID 06/24/17 Metoprolol Tartrate [Lopressor -] 12.5 mg PO BID 06/25/17 Acetaminophen [Tylenol .Regular Strength -] 650 mg PEG Q6H PRN 06/28/17
--- NOTE | 2017-06-29 12:05 | PN ---
Progress Note (short form) - Note Progress Note: Seen and examined Not much change in the condition. Last Vital Signs Temp Pulse Resp BP Pulse Ox 97.7 F 96 H 20 102/68 97 06/29/17 10:00 06/29/17 10:00 06/29/17 10:00 06/29/17 10:00 06/29/17 09:00 CBC, BMP 06/26/17 06:00 06/26/17 06:00 Current Medications Generic Name Dose Route Start Last Admin Trade Name Faustino PRN Reason Stop Dose Admin Apixaban 5 mg 06/25/17 10:00 06/29/17 10:15 Eliquis - PO 5 mg BID JAMIE Administration Gabapentin 300 mg 06/25/17 10:00 06/29/17 10:15 Neurontin - PEG 300 mg BID JAMIE Administration Insulin Aspart 1 vial 06/26/17 16:30 06/29/17 06:46 Novolog Vial Sliding Scale - SQ Not Given ACHS JAMIE Protocol Latanoprost 1 drop 06/25/17 22:00 06/28/17 20:59 Xalatan 0.005% Eye Drops - OS 1 drop HS JAMIE Administration Metoprolol Tartrate 12.5 mg 06/25/17 10:00 06/29/17 10:15 Lopressor - PEG 12.5 mg BID JAMIE Administration Mirtazapine 15 mg 06/25/17 22:00 06/28/17 21:00 Remeron - PEG 15 mg HS JAMIE Administration Vancomycin HCl 125 mg 06/25/17 12:00 06/29/17 06:44 Vancomycin Oral Solution PEG 125 mg Q6HPO JAMIE Administration Cor: RSR, No murmurs, No gallops Lungs: Clear to P&A Abd: Soft, Normal bowel sounds, No organomegaly Ext:No significant edema labs/meds reviewed a/p myeloma--in remission. maintenance velcade on hold C.I.D.P. s/p IVIg. Diarrhea, -- c.diff ag+, on PO vanco dysphagia--had threeEGD in the recent past, to fu with GI for consideration of esophageal manometry as prior recs, PMD aware.
--- NOTE | 2017-06-29 13:59 | PN ---
Progress Note, ACCESS SPECIALIST - Note Progress Note: Suggest intermittent trial of sip of water, to assess tolerance. Heaving may improve intermittently, as it did previously. Case discussed with Dr. Fuller. Pt may benefit from consult with GI motility expert at [facility], Dr. Aliza Dwyer.
[2017-06-29 14:55] VITALS: BP 112/78; PULSE 87; TEMP 98.2
== END 2017-06-29 15:42 | DRG 372 ==
LOC: JER 12:28 → JERBED 21:08 → J8W 23:43 → OBSVTOIN 06-26 18:00
PROVIDERS: ADMIT Internal Medicine; ATTEND Internal Medicine
PROC: 3E0G76Z Introduction of Nutritional Substance into Upper GI, Via Natural or Artificial Opening (ICD-10-PCS; principal; 2017-06-26)
PROC: 30233S1 Transfusion of Nonautologous Globulin into Peripheral Vein, Percutaneous Approach (ICD-10-PCS; 2017-06-26)
DX: A04.72 Enterocolitis due to Clostridium difficile, not specified as recurrent (principal); G61.81 Chronic inflammatory demyelinating polyneuritis; C90.01 Multiple myeloma in remission; Z94.84 Stem cells transplant status; Z79.01 Long term (current) use of anticoagulants; I10 Essential (primary) hypertension; M17.0 Bilateral primary osteoarthritis of knee; Z93.1 Gastrostomy status; Z79.4 Long term (current) use of insulin; R13.10 Dysphagia, unspecified; Z92.21 Personal history of antineoplastic chemotherapy; K63.9 Disease of intestine, unspecified; I48.0 Paroxysmal atrial fibrillation; I25.10 Atherosclerotic heart disease of native coronary artery without angina pectoris; K22.2 Esophageal obstruction; E78.00 Pure hypercholesterolemia, unspecified; R19.7 Diarrhea, unspecified; D69.6 Thrombocytopenia, unspecified; E11.42 Type 2 diabetes mellitus with diabetic polyneuropathy; K21.9 Gastro-esophageal reflux disease without esophagitis; D63.8 Anemia in other chronic diseases classified elsewhere; R47.1 Dysarthria and anarthria
CPT/HCPCS: 36415; 71045-TC-FY; 74177-TC; 80048; 80053; 82272; 82607; 82728; 82746; 82784; 82962; 83540; 83550; 83735; 84100; 84155; 84165; 85025; 85610; 85651; 86334; 87045; 87046; 87177; 87186; 87209; 87324; 87449; 87493; 93005; 93010; 99285-25; C1887; G0378; J1561; J7030

== ENCOUNTER 2017-09-01 07:48 | Day surgery (SDC) | payer OTHER ==
[2017-09-01] MEDS ORDERED: DIPHENHYDRAMINE 25 MG in SODIUM CHLORIDE 50 ML IVPB ONE (08:00)
[2017-09-01] MEDS ORDERED: ACETAMINOPHEN 325 MG TABLET (FP) PO ONE (08:00)
[2017-09-01] MEDS ORDERED: SODIUM CHLORIDE 250 ML IV ONE ×2 (08:00→13:00)
[2017-09-01] MEDS ORDERED: IMMUNE GLOBULIN IVPB ONE (08:30)
[2017-09-01] MEDS ORDERED: IMMUNE GLOB GAM CAPRYLATE IVPB ONE (08:30)
[2017-09-01 10:25] LABS: BASO % 0.6 % (0-2.0); EOS % 1.3 % (0-4.5); HEMATOCRIT 29.9 % (35.4-49); HEMOGLOBIN 9.9 GM/dL (11.7-16.9); LYMPH % 21.9 % (8-40); MCH 33.6 pg (25.7-33.7); MCHC 32.9 g/dl (32.0-35.9); MONO % 10.6 % (3.8-10.2); NEUT % 65.6 % (42.8-82.8); PLATELET COUNT 125 K/MM3 (134-434); RBC 2.93 M/mm3 (4.00-5.60); RDW 16.7 % (11.9-15.9); WHITE BLOOD COUNT 4.9 K/mm3 (4.0-10.0)
[2017-09-01 10:51] LABS: ALBUMIN 3.1 g/dl (3.4-5.0); ALK PHOS 88 U/L (45-117); ANION GAP 10 (8-16); BILIRUBIN,TOTAL 0.4 mg/dL (0.2-1.0); BLOOD UREA NITROGEN 12 mg/dL (7-18); CALCIUM 8.3 mg/dL (8.5-10.1); CHLORIDE 111 mmol/L (98-107); CO2 21 mmol/L (21-32); CREATININE 1.2 mg/dL (0.7-1.3); GLUCOSE,RANDOM 132 mg/dL (74-106); POTASSIUM 3.5 mmol/L (3.5-5.1); SGOT/AST 26 U/L (15-37); SGPT/ALT 23 U/L (12-78); SODIUM 142 mmol/L (136-145); TOT PROT 6.4 g/dl (6.4-8.2)
[2017-09-01 11:07] LABS: ALBUMIN 3.1 g/dl (3.4-5.0); BILIRUBIN,DIRECT < 0.2 mg/dL (0.0-0.2); BILIRUBIN,TOTAL 0.4 mg/dL (0.2-1.0); MAGNESIUM 1.9 mg/dL (1.8-2.4); SGOT/AST 26 U/L (15-37); SGPT/ALT 22 U/L (12-78)
[2017-09-01 11:10] LABS: ALK PHOS 91 U/L (45-117); TOT PROT 6.4 g/dl (6.4-8.2)
[2017-09-01 11:51] VITALS: TEMP 98.1
[2017-09-01 15:41] VITALS: BP 117/72; PULSE 76
[2017-09-02 08:07] LABS: IGA IMMUNOGLOBULIN 91 mg/dL (61-437); IGG IMMUNOGLOBULIN 955 mg/dL (700-1600); IGM IMMUNOGLOBULIN 41 mg/dL (15-143)
[2017-09-03 08:06] LABS: KAPPA LAMBDA RATIO URIN 24.9 (2.04-10.37)
== END 2017-09-01 15:30 | disposition home or self-care (01) ==
LOC: JONCCHEMO 07:48 → J7W 10:38 → JONCCHEMO 15:30
PROVIDERS: ATTEND Internal Medicine Hematology & Oncology
PROC: 3E033GC Introduction of Other Therapeutic Substance into Peripheral Vein, Percutaneous Approach (ICD-10-PCS; principal; 2017-09-01)
PROC: 3E033GC Introduction of Other Therapeutic Substance into Peripheral Vein, Percutaneous Approach (ICD-10-PCS; 2017-09-01)
DX: C90.00 Multiple myeloma not having achieved remission (principal)
CPT/HCPCS: 96361; 96365; 96366; 96375; J1561; 36415; 80053; 80076; 82784; 83735; 83883; 85025; 85651; 96415; 96417

== ENCOUNTER 2017-09-02 07:35 | Day surgery (SDC) | payer OTHER ==
[2017-09-02] MEDS ORDERED: DIPHENHYDRAMINE 25 MG in SODIUM CHLORIDE 50 ML IVPB ONE (08:00)
[2017-09-02] MEDS ORDERED: SODIUM CHLORIDE 250 ML IV ONE ×2 (08:00→13:00)
[2017-09-02] MEDS ORDERED: ACETAMINOPHEN 325 MG TABLET (FP) PO ONE (08:00)
[2017-09-02] MEDS ORDERED: IMMUNE GLOB GAM CAPRYLATE IVPB ONE (08:30)
[2017-09-02] MEDS ORDERED: IMMUNE GLOBULIN IVPB ONE (08:30)
[2017-09-02] MEDS: BORTEZOMIB (VELCADE) 2.5 MG/ML SUB-Q INJECTION SQ ONE ×2 (09:57→10:27)
[2017-09-02 10:10] VITALS: TEMP 97.8
[2017-09-02] MEDS ORDERED: GRANISETRON HCL 1 MG TABLET PO ONE (11:00)
[2017-09-02 15:22] VITALS: BP 90/48; PULSE 66
== END 2017-09-02 14:20 | disposition home or self-care (01) ==
LOC: JONCCHEMO 07:35 → J7W 09:50 → JONCCHEMO 14:20
PROVIDERS: ATTEND Internal Medicine Hematology & Oncology
PROC: 3E033GC Introduction of Other Therapeutic Substance into Peripheral Vein, Percutaneous Approach (ICD-10-PCS; principal; 2017-09-02)
PROC: 3E033GC Introduction of Other Therapeutic Substance into Peripheral Vein, Percutaneous Approach (ICD-10-PCS; 2017-09-02)
PROC: 3E01305 Introduction of Other Antineoplastic into Subcutaneous Tissue, Percutaneous Approach (ICD-10-PCS; 2017-09-02)
DX: Z51.11 Encounter for antineoplastic chemotherapy (principal); C90.00 Multiple myeloma not having achieved remission
CPT/HCPCS: 96361; 96365; 96366; 96375; 96401; J1561; 96415; 96417; J9041

== ENCOUNTER 2017-09-15 07:36 | Day surgery (SDC) | payer OTHER ==
[2017-09-15] MEDS ORDERED: BORTEZOMIB (VELCADE) 2.5 MG/ML SUB-Q INJECTION SQ ONE (08:00)
[2017-09-15 09:03] LABS: BASO % 0.2 % (0-2.0); EOS % 0.2 % (0-4.5); HEMATOCRIT 23.8 % (35.4-49); HEMOGLOBIN 7.8 GM/dL (11.7-16.9); LYMPH % 6.3 % (8-40); MCH 32.9 pg (25.7-33.7); MCHC 32.9 g/dl (32.0-35.9); MEAN CELL VOLUME 99.8 fl (80-96); MEAN PLT VOLUME 9.1 fl (7.5-11.1); MONO % 3.1 % (3.8-10.2); NEUT % 90.2 % (42.8-82.8); PLATELET COUNT 98 K/MM3 (134-434); RBC 2.39 M/mm3 (4.00-5.60); RDW 16.9 % (11.9-15.9); WHITE BLOOD COUNT 8.9 K/mm3 (4.0-10.0)
[2017-09-15 09:35] LABS: CHLORIDE 110 mmol/L (98-107); SODIUM 142 mmol/L (136-145)
[2017-09-15 09:42] LABS: ALBUMIN 3.4 g/dl (3.4-5.0); ALK PHOS 110 U/L (45-117); ANION GAP 9 (8-16); BILIRUBIN,DIRECT < 0.2 mg/dL (0.0-0.2); BILIRUBIN,TOTAL 0.3 mg/dL (0.2-1.0); BLOOD UREA NITROGEN 19 mg/dL (7-18); CO2 23 mmol/L (21-32); CREATININE 1.2 mg/dL (0.7-1.3); GLUCOSE,RANDOM 144 mg/dL (74-106); MAGNESIUM 2.1 mg/dL (1.8-2.4); SGOT/AST 55 U/L (15-37); SGPT/ALT 78 U/L (12-78); TOT PROT 7.2 g/dl (6.4-8.2)
[2017-09-15 10:48] VITALS: BP 133/74; PULSE 75; TEMP 97.5
== END 2017-09-15 10:40 | disposition home or self-care (01) ==
LOC: JONCCHEMO 07:36 → J7W 10:20 → JONCCHEMO 10:40
PROVIDERS: ATTEND Internal Medicine Hematology & Oncology
DX: Z51.11 Encounter for antineoplastic chemotherapy (principal); C90.00 Multiple myeloma not having achieved remission
CPT/HCPCS: 36415; 80053; 80076; 83735; 85025; 96401; J9041

== ENCOUNTER 2017-09-17 07:34 | Day surgery (SDC) | payer OTHER ==
[2017-09-17 09:50] LABS: HEMATOCRIT 21.5 % (35.4-49); HEMOGLOBIN 7.2 GM/dL (11.7-16.9); MCHC 33.3 g/dl (32.0-35.9); MEAN CELL VOLUME 99.2 fl (80-96); MEAN PLT VOLUME 9.2 fl (7.5-11.1); PLATELET COUNT 75 K/MM3 (134-434); RBC 2.17 M/mm3 (4.00-5.60); RDW 17.2 % (11.9-15.9); WHITE BLOOD COUNT 6.1 K/mm3 (4.0-10.0)
[2017-09-17] MEDS ORDERED: FUROSEMIDE 40 MG/4 ML INJECTABLE VIAL IVPUSH ONE ×2 (11:00→14:15)
[2017-09-17 11:05] LABS: ALBUMIN 3.1 g/dl (3.4-5.0); ALK PHOS 76 U/L (45-117); ANION GAP 9 (8-16); BILIRUBIN,TOTAL 0.4 mg/dL (0.2-1.0); BLOOD UREA NITROGEN 18 mg/dL (7-18); CALCIUM 7.9 mg/dL (8.5-10.1); CHLORIDE 111 mmol/L (98-107); CO2 25 mmol/L (21-32); CREATININE 1.2 mg/dL (0.7-1.3); GLUCOSE,RANDOM 99 mg/dL (74-106); POTASSIUM 3.5 mmol/L (3.5-5.1); SGOT/AST 18 U/L (15-37); SGPT/ALT 49 U/L (12-78); SODIUM 145 mmol/L (136-145); TOT PROT 6.4 g/dl (6.4-8.2)
[2017-09-17 18:14] VITALS: BP 106/80; PULSE 81; TEMP 98.1
--- NOTE | 2017-09-17 18:42 | HP ---
Satellite [facility] - Chief Complaint Chief Complaint: PAtient here for elective blood transfusion. Denies fever/ chills/cough/SOB/abdominal pain/nausea/vomiting/diarrhea. No urinary symptoms - Past Medical History Allergies/Adverse Reactions: Allergies Allergy/AdvReac Type Severity Reaction Status Date / Time No Known Allergies Allergy Verified 04/08/17 11:08 CLINIC MGR: Yes: Peripheral Neuropathy Cardiovascular: Yes: AFIB (on Eliquis), HTN Gastrointestinal: Yes: Other (dysphagia; dilatation of Schatzki ring ; PEG ) Heme/Onc: Yes: Cancer (Multiple myeloma, s/p transplant) Musculoskeletal: Yes: Chronic low back pain, Osteoarthritis Endocrine: Yes: Diabetes Mellitus Additional Medical History: glaucoma with decreased vision and need for surgeryleft eye - Current Medications Current Medications: Home Medications Medication Instructions Recorded Gabapentin 300 mg PEG BID 10/04/16 Apixaban [Eliquis -] 5 mg PO BID tablet 05/03/17 Mirtazapine [Remeron -] 15 mg PO HS tablet 05/03/17 Naph,Mb-Db/K pH,Mbdb [PHOS-NaK 1 packet GT TID pow 05/03/17 PACKET -] Nystatin Powder [Nystop Powder -] 1 applic TP DAILY applic 05/03/17 Zinc Oxide 1 applic TP DAILY tube 05/03/17 Valsartan [Diovan] 40 mg PO DAILY tablet 05/11/17 Insulin Sliding Scale [Novolog 1 vial SQ ASDIR 06/24/17 Vial Sliding Scale -] Latanoprost 0.005% Eye Drops 1 drop OS HS 06/24/17 [Xalatan 0.005% Eye Drops -] Omeprazole 40 mg PEG BID 06/24/17 Saliva Stimulant Comb. No.3 44.3 ml MM DAILY 06/24/17 [Biotene Moisturizing Mouth] Metoprolol Tartrate [Lopressor -] 12.5 mg PO BID 06/25/17 Acetaminophen [Tylenol .Regular 650 mg PEG Q6H PRN 06/28/17 Strength -] Vancomycin Oral Solution 125 mg PEG Q6HPO #100 ml 06/29/17 Satellite Physical Exam - Physical Examination Vital Signs: Vital Signs Period Temp Pulse Resp BP Sys/Max Pulse Ox Last 24 Hr 97.5 F-98.1 F 76-81 20-20 106-121/62-80 General Appearance: Well Nourished, Alert & Oriented x3 Lung: Clear to auscultation, Normal air movement Heart: Regular rate & rhythm, Normal S1, Normal S2 Abdomen: Soft, No tenderness Extremities: No edema Neurological: Intact Satellite Impression/Plan - Impression/Plan Impression: 71 y/o patient with myeloma. For elective blood transfusion. Hgb 7.2. Platelets [id number]
== END 2017-09-17 18:38 | disposition home or self-care (01) ==
LOC: JONCBLOOD 07:34 → J7W 08:39 → JONCBLOOD 18:38
PROVIDERS: ATTEND Internal Medicine Hematology & Oncology
PROC: 30233N1 Transfusion of Nonautologous Red Blood Cells into Peripheral Vein, Percutaneous Approach (ICD-10-PCS; principal; 2017-09-17)
DX: C90.00 Multiple myeloma not having achieved remission (principal); I48.91 Unspecified atrial fibrillation; E11.9 Type 2 diabetes mellitus without complications; I10 Essential (primary) hypertension; Z79.01 Long term (current) use of anticoagulants; Z79.4 Long term (current) use of insulin
CPT/HCPCS: 36415; 36430; 80053; 85027; 86850; 86900; 86901; 86922; P9038; P9058

== ENCOUNTER 2017-09-29 07:21 | Day surgery (SDC) | payer OTHER ==
[2017-09-29] MEDS ORDERED: BORTEZOMIB (VELCADE) 2.5 MG/ML SUB-Q INJECTION SQ ONE (09:00)
[2017-09-29 09:06] LABS: BASO % 0.4 % (0-2.0); EOS % 0.1 % (0-4.5); HEMATOCRIT 27.3 % (35.4-49); HEMOGLOBIN 8.8 GM/dL (11.7-16.9); LYMPH % 7.9 % (8-40); MCH 30.8 pg (25.7-33.7); MCHC 32.3 g/dl (32.0-35.9); MEAN CELL VOLUME 95.3 fl (80-96); MEAN PLT VOLUME 8.9 fl (7.5-11.1); MONO % 0.8 % (3.8-10.2); NEUT % 90.8 % (42.8-82.8); PLATELET COUNT 132 K/MM3 (134-434); RBC 2.86 M/mm3 (4.00-5.60); RDW 17.9 % (11.9-15.9); WHITE BLOOD COUNT 6.8 K/mm3 (4.0-10.0)
[2017-09-29 09:28] LABS: ALBUMIN 3.2 g/dl (3.4-5.0); ANION GAP 13 (8-16); BLOOD UREA NITROGEN 17 mg/dL (7-18); CALCIUM 8.2 mg/dL (8.5-10.1); CHLORIDE 109 mmol/L (98-107); CO2 21 mmol/L (21-32); GLUCOSE,RANDOM 209 mg/dL (74-106); MAGNESIUM 2.2 mg/dL (1.8-2.4); POTASSIUM 4.3 mmol/L (3.5-5.1); SGPT/ALT 35 U/L (12-78); SODIUM 143 mmol/L (136-145)
[2017-09-29 09:31] LABS: ALK PHOS 71 U/L (45-117); BILIRUBIN,DIRECT 0.2 mg/dL (0.0-0.2); BILIRUBIN,TOTAL 0.6 mg/dL (0.2-1.0); CREATININE 1.5 mg/dL (0.7-1.3); SGOT/AST 16 U/L (15-37); TOT PROT 6.6 g/dl (6.4-8.2)
[2017-09-29 10:39] VITALS: BP 109/69; PULSE 69; TEMP 98
== END 2017-09-29 10:40 | disposition home or self-care (01) ==
LOC: JONCCHEMO 07:21 → J7W 10:24 → JONCCHEMO 10:40
PROVIDERS: ATTEND Internal Medicine Hematology & Oncology
DX: Z51.11 Encounter for antineoplastic chemotherapy (principal); C90.00 Multiple myeloma not having achieved remission; I48.91 Unspecified atrial fibrillation; E11.9 Type 2 diabetes mellitus without complications; I10 Essential (primary) hypertension; Z79.01 Long term (current) use of anticoagulants; Z79.4 Long term (current) use of insulin
CPT/HCPCS: 36415; 80048; 80076; 83735; 85025; 96401; J9041

== ENCOUNTER 2017-10-13 07:35 | Day surgery (SDC) | payer OTHER ==
[2017-10-13 09:44] LABS: BASO % 0.1 % (0-2.0); HEMATOCRIT 24.1 % (35.4-49); HEMOGLOBIN 7.5 GM/dL (11.7-16.9); LYMPH % 6.2 % (8-40); MCHC 31.2 g/dl (32.0-35.9); MEAN PLT VOLUME 8.7 fl (7.5-11.1); MONO % 0.8 % (3.8-10.2); NEUT % 92.9 % (42.8-82.8); PLATELET COUNT 99 K/MM3 (134-434); RBC 2.59 M/mm3 (4.00-5.60); RDW 17.9 % (11.9-15.9); WHITE BLOOD COUNT 5.7 K/mm3 (4.0-10.0)
[2017-10-13] MEDS ORDERED: BORTEZOMIB (VELCADE) 2.5 MG/ML SUB-Q INJECTION SQ ONE (10:00)
[2017-10-13 10:11] LABS: ALBUMIN 3.4 g/dl (3.4-5.0); ANION GAP 9 (8-16); BILIRUBIN,TOTAL 0.4 mg/dL (0.2-1.0); BLOOD UREA NITROGEN 18 mg/dL (7-18); CALCIUM 8.4 mg/dL (8.5-10.1); CHLORIDE 109 mmol/L (98-107); CO2 25 mmol/L (21-32); CREATININE 1.3 mg/dL (0.7-1.3); GLUCOSE,RANDOM 241 mg/dL (74-106); POTASSIUM 4.6 mmol/L (3.5-5.1); SGOT/AST 22 U/L (15-37); SGPT/ALT 68 U/L (12-78); SODIUM 143 mmol/L (136-145); TOT PROT 6.7 g/dl (6.4-8.2)
[2017-10-13 10:12] LABS: ALK PHOS 96 U/L (45-117)
[2017-10-13 12:09] LABS: ANISOCYTOSIS 1+; MACROCYTOSIS 0; PLATELET ESTIMATE DECREASED
[2017-10-13 14:34] VITALS: BP 127/76; PULSE 95; TEMP 98
== END 2017-10-13 10:35 | disposition home or self-care (01) ==
LOC: JONCCHEMO 07:35 → J7W 09:49 → JONCCHEMO 10:35
PROVIDERS: ATTEND Internal Medicine Hematology & Oncology
DX: Z51.11 Encounter for antineoplastic chemotherapy (principal); C90.00 Multiple myeloma not having achieved remission
CPT/HCPCS: 36415; 80053; 83735; 85025; 86708; 96401; J9041

== ENCOUNTER 2017-10-14 07:31 | Day surgery (SDC) | payer OTHER ==
[2017-10-14] MEDS ORDERED: FUROSEMIDE 40 MG/4 ML INJECTABLE VIAL IVPUSH SCH (09:15)
[2017-10-14] MEDS ORDERED: FUROSEMIDE 40 MG TABLET (FP) PO SCH (09:30)
[2017-10-14] MEDS ORDERED: POTASSIUM CHLORIDE TABS 20 MEQ TABLET.ER (FP) PO SCH (09:30)
[2017-10-14 09:33] LABS: HEMATOCRIT 21.5 % (35.4-49); MCH 28.9 pg (25.7-33.7); MCHC 31.5 g/dl (32.0-35.9); MEAN CELL VOLUME 91.8 fl (80-96); MEAN PLT VOLUME 8.8 fl (7.5-11.1); PLATELET COUNT 86 K/MM3 (134-434); RBC 2.34 M/mm3 (4.00-5.60); RDW 17.9 % (11.9-15.9); WHITE BLOOD COUNT 8.7 K/mm3 (4.0-10.0)
[2017-10-14 09:54] LABS: HEMOGLOBIN 6.8 GM/dL (11.7-16.9)
[2017-10-14 10:00] LABS: ALBUMIN 3.1 g/dl (3.4-5.0); ALK PHOS 79 U/L (45-117); ANION GAP 8 (8-16); BILIRUBIN,TOTAL 0.4 mg/dL (0.2-1.0); BLOOD UREA NITROGEN 24 mg/dL (7-18); CALCIUM 8.1 mg/dL (8.5-10.1); CHLORIDE 111 mmol/L (98-107); CO2 25 mmol/L (21-32); CREATININE 1.3 mg/dL (0.7-1.3); GLUCOSE,RANDOM 102 mg/dL (74-106); POTASSIUM 3.7 mmol/L (3.5-5.1); SGOT/AST 16 U/L (15-37); SGPT/ALT 51 U/L (12-78); SODIUM 144 mmol/L (136-145); TOT PROT 5.9 g/dl (6.4-8.2)
[2017-10-14 21:15] LABS: HEMATOCRIT 28.9 % (35.4-49); HEMOGLOBIN 9.4 GM/dL (11.7-16.9); MCH 29.1 pg (25.7-33.7); MCHC 32.6 g/dl (32.0-35.9); MEAN CELL VOLUME 89.2 fl (80-96); MEAN PLT VOLUME 8.3 fl (7.5-11.1); PLATELET COUNT 85 K/MM3 (134-434); RBC 3.24 M/mm3 (4.00-5.60); RDW 18.2 % (11.9-15.9); WHITE BLOOD COUNT 9.3 K/mm3 (4.0-10.0)
[2017-10-14 21:47] VITALS: BP 116/70; PULSE 70; TEMP 89.3
--- NOTE | 2017-10-14 22:34 | HP ---
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: Yes: Peripheral Neuropathy Cardiovascular: Yes: AFIB (on Eliquis), HTN Gastrointestinal: Yes: Other (dysphagia; dilatation of Schatzki ring ; PEG ) Heme/Onc: Yes: Cancer (Multiple myeloma, s/p transplant) Musculoskeletal: Yes: Chronic low back pain, Osteoarthritis Endocrine: Yes: Diabetes Mellitus Additional Medical History: glaucoma with decreased vision and need for surgeryleft eye - Current Medications Current Medications: Home Medications Medication Instructions Recorded Gabapentin 300 mg PEG BID 10/04/16 Apixaban [Eliquis -] 5 mg PO BID tablet 05/03/17 Mirtazapine [Remeron -] 15 mg PO HS tablet 05/03/17 Naph,Mb-Db/K pH,Mbdb [PHOS-NaK 1 packet GT TID pow 05/03/17 PACKET -] Nystatin Powder [Nystop Powder -] 1 applic TP DAILY applic 05/03/17 Zinc Oxide 1 applic TP DAILY tube 05/03/17 Valsartan [Diovan] 40 mg PO DAILY tablet 05/11/17 Insulin Sliding Scale [Novolog 1 vial SQ ASDIR 06/24/17 Vial Sliding Scale -] Latanoprost 0.005% Eye Drops 1 drop OS HS 06/24/17 [Xalatan 0.005% Eye Drops -] Omeprazole 40 mg PEG BID 06/24/17 Saliva Stimulant Comb. No.3 44.3 ml MM DAILY 06/24/17 [Biotene Moisturizing Mouth] Metoprolol Tartrate [Lopressor -] 12.5 mg PO BID 06/25/17 Acetaminophen [Tylenol .Regular 650 mg PEG Q6H PRN 06/28/17 Strength -] Vancomycin Oral Solution 125 mg PEG Q6HPO #100 ml 06/29/17 Satellite Physical Exam - Physical Examination Vital Signs: Vital Signs Period Temp Pulse Resp BP Sys/Max Pulse Ox Last 24 Hr 89.3 F-98.8 F 70-86 16-20 107-125/67-78 General Appearance: Alert & Oriented x3 Heart: Regular rate & rhythm, Normal S1, Normal S2 Abdomen: No tenderness Neurological: Alert, Oriented Satellite Impression/Plan - Impression/Plan Impression: for PRBCs. assess post tramsfisonCBC prior to DC. f/u in office
== END 2017-10-14 21:50 | disposition home or self-care (01) ==
LOC: JONCBLOOD 07:31 → J7W 08:53 → JONCBLOOD 21:50
PROVIDERS: ATTEND Internal Medicine Hematology & Oncology
PROC: 30233N1 Transfusion of Nonautologous Red Blood Cells into Peripheral Vein, Percutaneous Approach (ICD-10-PCS; principal; 2017-10-14)
DX: C90.00 Multiple myeloma not having achieved remission (principal)
CPT/HCPCS: 36415; 36430; 80053; 85027; 86850; 86900; 86901; 86922; P9038; P9058

== ENCOUNTER 2017-10-21 07:41 | Day surgery (SDC) | payer OTHER ==
[2017-10-21 09:43] LABS: BASO % 0.2 % (0-2.0); HEMATOCRIT 30.2 % (35.4-49); HEMOGLOBIN 9.8 GM/dL (11.7-16.9); MCH 29.1 pg (25.7-33.7); MCHC 32.3 g/dl (32.0-35.9); MEAN CELL VOLUME 90.2 fl (80-96); MEAN PLT VOLUME 9.7 fl (7.5-11.1); MONO % 1.5 % (3.8-10.2); NEUT % 90.3 % (42.8-82.8); PLATELET COUNT 69 K/MM3 (134-434); RBC 3.35 M/mm3 (4.00-5.60); RDW 17.9 % (11.9-15.9); WHITE BLOOD COUNT 6.9 K/mm3 (4.0-10.0)
[2017-10-21] MEDS ORDERED: oxyCODONE HCL 5 MG TABLET PO PRN (09:51)
[2017-10-21] MEDS ORDERED: CYANOCOBALAMIN (VITAMIN B-12) 1000 MCG/1 ML VIAL IM ONE (10:00)
[2017-10-21 10:09] LABS: ALBUMIN 3.3 g/dl (3.4-5.0); ALK PHOS 91 U/L (45-117); ANION GAP 10 (8-16); BILIRUBIN,DIRECT 0.2 mg/dL (0.0-0.2); BILIRUBIN,TOTAL 0.6 mg/dL (0.2-1.0); BLOOD UREA NITROGEN 22 mg/dL (7-18); CALCIUM 8.5 mg/dL (8.5-10.1); CHLORIDE 108 mmol/L (98-107); CO2 25 mmol/L (21-32); CREATININE 1.2 mg/dL (0.7-1.3); GLUCOSE,RANDOM 204 mg/dL (74-106); MAGNESIUM 2.3 mg/dL (1.8-2.4); POTASSIUM 4.2 mmol/L (3.5-5.1); SGOT/AST 18 U/L (15-37); SGPT/ALT 58 U/L (12-78); SODIUM 143 mmol/L (136-145); TOT PROT 6.3 g/dl (6.4-8.2); TOT PROT 6.4 g/dl (6.4-8.2)
[2017-10-21 11:22] VITALS: BMI 28.6
[2017-10-21] MEDS ORDERED: CYANOCOBALAMIN 1,000 MCG TABLET (FP) PO SCH (12:00)
[2017-10-21] MEDS ORDERED: ALLOPURINOL 300 MG TABLET (FP) PO SCH (12:00)
[2017-10-21] MEDS ORDERED: PANTOPRAZOLE 40 MG TABLET (FP) PO SCH (12:00)
[2017-10-21] MEDS: SUPREP BOWEL PREP KIT PO SCH ×2 (12:56→21:46)
[2017-10-21] MEDS: GABAPENTIN 400 MG CAPSULE (FP) PO SCH ×2 (13:48→21:46)
[2017-10-21] MEDS ORDERED: FUROSEMIDE 40 MG/4 ML INJECTABLE VIAL IVPUSH SCH (14:45)
--- NOTE | 2017-10-21 14:50 | CON.GI ---
Consult Consult Specialty:: Gastroenterology Reason for Consultation:: anemia; previous dysphagia - History of Present Illness Chief Complaint: unspecified anemia History of Present Illness: Mr. Rachel is a 72 y/o male, who is here for EGD and colonoscopy to determine the cause of unidentified anemia. Patient states that he has not noticed any blood in his stool and denies any rectal bleeding. He notes his last bowel movement was two days ago and it was normal, but that his bowel scheudle is sometimes irregular due to oxycodone use. He has had a history of dysphagia which required mutiple EGD's, in 04/04 and 05/06 which showed dilation of Schatzki ring in addition to PEG tube. He was given IVIG infusions which helped to resolve his dysphagia. He states his appetite is now back to normal and has no difficulty swallowing and does not need to use the PEG tube. He has never had a colonoscopy, though his brother from colorectal cancer. He denies any nausea, vomiting, diarrhea. Patient has started bowel prep in anticipation for colonoscopy. 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: Yes: Peripheral Neuropathy Cardio/Vascular: Yes: AFIB (on Eliquis), HTN, Hyperlipdemia Gastrointestinal: Yes: Diverticulosis, GERD, Other (dysphagia; dilatation of Schatzki ring ; PEG ) Heme/Onc: Yes: Anemia, B12 Deficiency, Bleeding Disorder (thrombocytopenia) Psych: Yes: Depression Musculoskeletal: Yes: Chronic low back pain, Osteoarthritis Rheumatology: Yes: Gout Endocrine: Yes: Diabetes Mellitus Additional Medical History: glaucoma with decreased vision and need for surgeryleft eye - Past Surgical History Past Surgical History: Yes: Arthrosocopy (Left knee and right shoudler ) - Alcohol/Substance Use Hx Alcohol Use: No (former drinker- last drink 1982) History of Substance Use: reports: None - Smoking History Smoking history: Former smoker Have you smoked in the past 12 months: No If you are a former smoker, when did you quit?: quit in 1946 - Social History Usual Living Arrangement: Snf (Currently residing in [facility]) ADL: Support Services 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 History of Recent Travel: No <Bridget Moses - Last Filed: 10/21/17 14:36> - Past Medical History NET SOFTWARE DEVELOPER: Yes: TIA Heme/Onc: Yes: Anemia (Multiple myeloma in remission), Thrombocytopenia Musculoskeletal: Yes: Chronic low back pain (lumbar degenerative disc disease) <Kisha Fuller - Last Filed: 10/21/17 21:35> Home Medications <Bridget Moses - Last Filed: 10/21/17 14:36> <Kisha Fuller - Last Filed: 10/21/17 21:35> - Allergies Allergies/Adverse Reactions: Allergies Allergy/AdvReac Type Severity Reaction Status Date / Time No Known Allergies Allergy Verified 04/08/17 11:08 - Home Medications Home Medications: Ambulatory Orders Gabapentin 300 mg PEG BID 10/04/16 Apixaban [Eliquis -] 5 mg PO BID tablet 05/03/17 Insulin Sliding Scale [Novolog Vial Sliding Scale -] 1 vial SQ ASDIR 06/24/17 Allopurinol 300 mg PO DAILY 10/21/17 Aspirin/Dipyridamole [Aggrenox -] 1 combo PO DAILY 10/21/17 Atorvastatin Ca [Lipitor] 40 mg PO HS 10/21/17 Bortezomib [Velcade] 3.5 mg IVPUSH ASDIR 10/21/17 Cyanocobalamin (Vitamin B-12) [Vitamin B12] 2,500 mcg PO DAILY 10/21/17 Dexamethasone 4 mg PO WEEKLY 10/21/17 Ivig 1 gm IV ASDIR 10/21/17 Oxycodone HCl [Oxycontin] 10 mg PO DAILY 10/21/17 Pantoprazole Sodium [Protonix] 40 mg PO DAILY 10/21/17 Family Disease History - Family Disease History Family Disease History: Other: Father (: 68: lung Ca), Mother (: 60's: leukemia ), Brother (1, : 65: colon cancer) <Bridget Moses - Last Filed: 10/21/17 14:36> Review of Systems - Review of Systems Constitutional: reports: No Symptoms Cardiovascular: denies: Chest Pain, Shortness of Breath Respiratory: denies: Cough Gastrointestinal: denies: Abdominal Pain, Diarrhea, Rectal Bleeding, Vomiting Neurological: reports: Numbness Hematology/Lymphatic: reports: Easily Bruised <Bridget Moses - Last Filed: 10/21/17 14:36> Physical Exam-GI Vital Signs: Vital Signs Temperature 97.6 F 10/21/17 14:28 Pulse Rate 88 10/21/17 14:28 Respiratory Rate 20 10/21/17 14:28 Blood Pressure 146/78 10/21/17 14:28 O2 Sat by Pulse Oximetry (%) 96 10/21/17 13:22 Constitutional: Yes: Well Nourished Eyes: No: Sclera Icterus Cardiovascular: Yes: Regular Rate and Rhythm. No: Murmur Respiratory: Yes: CTA Bilaterally Gastrointestinal Inspection: Yes: Other (midline NG tube; echymoses present) ...Auscultate: Yes: Normoactive Bowel Sounds ...Palpate: Yes: Soft. No: Tenderness ...Rectal Exam: Yes: Guaiac Negative, Other (2+ prostate; no external lesions noted; guaiac negative stool; no palpable hemorrhoids) Edema: No Psychiatric: Yes: Alert Labs: CBC, BMP 10/21/17 09:14 10/21/17 09:14 <Bridget Moses - Last Filed: 10/21/17 14:36> Vital Signs: Vital Signs Temperature 97.4 F L 10/21/17 17:00 Pulse Rate 72 10/21/17 17:00 Respiratory Rate 20 10/21/17 17:00 Blood Pressure 121/61 10/21/17 17:00 O2 Sat by Pulse Oximetry (%) 96 10/21/17 13:22 CBC,CMP WBC 6.9 K/mm3 (4.0-10.0) 10/21/17 09:14 RBC 3.35 M/mm3 (4.00-5.60) L 10/21/17 09:14 Hgb 9.8 GM/dL (11.7-16.9) L 10/21/17 09:14 Hct 30.2 % (35.4-49) L 10/21/17 09:14 MCV 90.2 fl (80-96) 10/21/17 09:14 MCH 29.1 pg (25.7-33.7) 10/21/17 09:14 MCHC 32.3 g/dl (32.0-35.9) 10/21/17 09:14 RDW 17.9 % (11.9-15.9) H 10/21/17 09:14 Plt Count 69 K/MM3 (134-434) L 10/21/17 09:14 MPV 9.7 fl (7.5-11.1) D 10/21/17 09:14 Absolute Neuts (auto) 6.2 # 10/21/17 09:14 Neutrophils % 90.3 % (42.8-82.8) H 10/21/17 09:14 Lymphocytes % 8.0 % (8-40) D 10/21/17 09:14 Monocytes % 1.5 % (3.8-10.2) L D 10/21/17 09:14 Eosinophils % 0.0 % (0-4.5) 10/21/17 09:14 Basophils % 0.2 % (0-2.0) 10/21/17 09:14 Nucleated RBC % 0 % (0-0) 10/21/17 09:14 Sodium 143 mmol/L (136-145) 10/21/17 09:14 Potassium 4.2 mmol/L (3.5-5.1) 10/21/17 09:14 Chloride 108 mmol/L (98-107) H 10/21/17 09:14 Carbon Dioxide 25 mmol/L (21-32) 10/21/17 09:14 Anion Gap 10 (8-16) 10/21/17 09:14 BUN 22 mg/dL (7-18) H 10/21/17 09:14 Creatinine 1.2 mg/dL (0.7-1.3) 10/21/17 09:14 Creat Clearance w eGFR 59.51 (>60) 10/21/17 09:14 Random Glucose 204 mg/dL (74-106) H D 10/21/17 09:14 Calcium 8.5 mg/dL (8.5-10.1) 10/21/17 09:14 Magnesium 2.3 mg/dL (1.8-2.4) 10/21/17 09:14 Total Bilirubin 0.6 mg/dL (0.2-1.0) 10/21/17 09:14 Direct Bilirubin 0.2 mg/dL (0.0-0.2) 10/21/17 09:14 AST 18 U/L (15-37) 10/21/17 09:14 ALT 58 U/L (12-78) 10/21/17 09:14 Alkaline Phosphatase 91 U/L (45-117) D 10/21/17 09:14 Total Protein 6.3 g/dl (6.4-8.2) L 10/21/17 09:14 Albumin 3.3 g/dl (3.4-5.0) L 10/21/17 09:14 Vitamin B12 330 pg/ml (180-914) D 10/21/17 09:14 Current Medications Generic Name Dose Route Start Last Admin Trade Name Faustino PRN Reason Stop Dose Admin Allopurinol 300 mg 10/21/17 12:00 10/21/17 12:07 Zyloprim - PO 300 mg DAILY JAMIE Administration Atorvastatin Calcium 40 mg 10/21/17 22:00 Lipitor - PO HS JAMIE Cyanocobalamin 1,000 mcg 10/21/17 12:00 10/21/17 12:08 Vitamin B12 - PO Not Given DAILY JAMIE Furosemide 20 mg 10/21/17 14:45 10/21/17 15:42 Lasix Injection - IVPUSH 10/21/17 23:59 20 mg ONCE JAMIE Administration Gabapentin 400 mg 10/21/17 14:00 10/21/17 13:48 Neurontin - PO 400 mg TID JAMIE Administration Suprep Bowel Prep 1 each 10/21/17 13:00 10/21/17 12:56 Kit PO 1 each 1300,2200 JAMIE Administration Oxycodone HCl 10 mg 10/21/17 09:51 Roxicodone - PO Q4H PRN -PAIN Pantoprazole Sodium 40 mg 10/21/17 12:00 10/21/17 12:08 Protonix - PO 40 mg DAILY JAMIE Administration Labs: CBC, BMP 10/21/17 09:14 10/21/17 09:14 <Kisha Fuller - Last Filed: 10/21/17 21:35> Problem List - Problems (1) Anemia Assessment/Plan: Given Mr. Rachel's ongoing anemia, colorectal cancer in first degree relative, and previous guaiac positive stool, Dr. Fuller advised Mr. Rachel to undergo colonoscopy to exclude any polyps or malignancies -Mr Rachel's dysphagia has since resolved since receiving the IVIG infusions, possible removal of Mr. Rachel's PEG tube might take place. -Mr Rachel has started his first bowel prep and will undergo the second at 10pm tonight in anticipation for tomorrow's colonoscopy, which Dr. Fuller will speak about the risks associated with both the EGD and colonoscopy. Code(s): D64.9 - ANEMIA, UNSPECIFIED Qualifiers: Anemia type: unspecified type Qualified Code(s): D64.9 - Anemia, unspecified <Bridget Moses - Last Filed: 10/21/17 14:36> - Problems (1) Family history of colon cancer Code(s): Z80.0 - FAMILY HISTORY OF MALIGNANT NEOPLASM OF DIGESTIVE ORGANS (2) Anemia Code(s): D64.9 - ANEMIA, UNSPECIFIED Qualifiers: Anemia type: unspecified type Qualified Code(s): D64.9 - Anemia, unspecified (3) Dysphagia Assessment/Plan: resolved with IVIG and dilated Schatzki ring Code(s): R13.10 - DYSPHAGIA, UNSPECIFIED Qualifiers: Dysphagia type: other dysphagia Qualified Code(s): R13.19 - Other dysphagia (4) Status post insertion of percutaneous endoscopic gastrostomy (PEG) tube Assessment/Plan: Intend to remove tomorrow as dysphagia has resolved Code(s): Z93.1 - GASTROSTOMY STATUS <Kisha Fuller - Last Filed: 10/21/17 21:35> Assessment/Plan Mr rachel will be undergoing both an EGD and colonoscopy to evaluate possible causes for his unspecified anemia. -Dr. Fuller will discuss the risks of both procedure with patient prior -patient will remain on clear liquid diet; and will take the second round of bowel prep at 10 pm tonight. <Bridget Moses - Last Filed: 10/21/17 14:36> ATTENDING PHYSICIAN STATEMENT I saw and evaluated the patient. I reviewed the resident's note and discussed the case with the resident. I agree with the resident's findings and plan as documented. SUBJECTIVE: 72M receiving PRBCs and monodonor platelets to prepare him to undergo a colonoscopy and extraction of his PEG tube. Informed consents were obtained in the office after informing Michael of the potential for such risks as perforation and hemorrhage. EGD deferred as he had them in 04/04 and 05/06. OBJECTIVE: Alert and oriented Lungs: clear Cor: RR, nl S1, S2 Abd: hyperactive ( undergoing bowel prep) nontender ASSESSMENT AND PLAN: Michael has received PRBCs and platelets in preparation for tomorrow's colonoscopy and PEG removal which are scheduled on an ambulatory basis. <Kisha Fuller - Last Filed: 10/21/17 21:35>
[2017-10-21 21:41] LABS: BASO % 0.8 % (0-2.0); HEMOGLOBIN 9.4 GM/dL (11.7-16.9); LYMPH % 10.5 % (8-40); MCH 29.3 pg (25.7-33.7); MCHC 32.6 g/dl (32.0-35.9); MEAN PLT VOLUME 8.4 fl (7.5-11.1); MONO % 5.5 % (3.8-10.2); NEUT % 83.2 % (42.8-82.8); PLATELET COUNT 129 K/MM3 (134-434); RBC 3.22 M/mm3 (4.00-5.60); RDW 16.8 % (11.9-15.9); WHITE BLOOD COUNT 8.1 K/mm3 (4.0-10.0)
[2017-10-21] MEDS ORDERED: ATORVASTATIN CA 40 MG TABLET (FP) PO SCH (22:00)
[2017-10-22] MEDS: GABAPENTIN 400 MG CAPSULE (FP) PO SCH (05:42)
[2017-10-22 06:33] VITALS: BP 114/71; PULSE 55; TEMP 97.7
--- NOTE | 2017-10-22 06:45 | HP ---
Satellite [facility] - Chief Complaint Chief Complaint: Here for elective blood and platelet transfusion prior to colonoscopy tomorrow. 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: TIA Cardiovascular: Yes: AFIB (on Eliquis), HTN, Hyperlipdemia Gastrointestinal: Yes: Diverticulosis, GERD, Other (dysphagia; dilatation of Schatzki ring ; PEG ) Heme/Onc: Yes: Anemia (Multiple myeloma in remission), Thrombocytopenia Musculoskeletal: Yes: Chronic low back pain (lumbar degenerative disc disease) Rheumatology: Yes: Gout Endocrine: Yes: Diabetes Mellitus Additional Medical History: glaucoma with decreased vision and need for surgeryleft eye - Current Medications Current Medications: Home Medications Medication Instructions Recorded Gabapentin 300 mg PEG BID 10/04/16 Apixaban [Eliquis -] 5 mg PO BID tablet 05/03/17 Insulin Sliding Scale [Novolog 1 vial SQ ASDIR 06/24/17 Vial Sliding Scale -] Allopurinol 300 mg PO DAILY 10/21/17 Aspirin/Dipyridamole [Aggrenox -] 1 combo PO DAILY 10/21/17 Atorvastatin Ca [Lipitor] 40 mg PO HS 10/21/17 Bortezomib [Velcade] 3.5 mg IVPUSH ASDIR 10/21/17 Cyanocobalamin (Vitamin B-12) 2,500 mcg PO DAILY 10/21/17 [Vitamin B12] Dexamethasone 4 mg PO WEEKLY 10/21/17 Ivig 1 gm IV ASDIR 10/21/17 Oxycodone HCl [Oxycontin] 10 mg PO DAILY 10/21/17 Pantoprazole Sodium [Protonix] 40 mg PO DAILY 10/21/17 Satellite Physical Exam - Physical Examination Vital Signs: Vital Signs Period Temp Pulse Resp BP Sys/Max Pulse Ox Last 24 Hr 97.3 F-97.9 F 65-100 18-20 114-149/61-92 96-98 General Appearance: No Distress Lung: Clear to auscultation Heart: Regular rate & rhythm, Normal S1, Normal S2 Abdomen: Soft, No tenderness Extremities: No edema Neurological: Intact Satellite Impression/Plan - Impression/Plan Impression: 72 y/o patient with myeloma, for elective transfusion, PRBCs and platelets. for colonoscopy in am
[2017-10-22 07:52] LABS: BASO % 0.5 % (0-2.0); HEMATOCRIT 28.3 % (35.4-49); HEMOGLOBIN 9.4 GM/dL (11.7-16.9); LYMPH % 14.2 % (8-40); MCH 29.9 pg (25.7-33.7); MCHC 33.4 g/dl (32.0-35.9); MEAN CELL VOLUME 89.3 fl (80-96); MEAN PLT VOLUME 8.7 fl (7.5-11.1); MONO % 6.9 % (3.8-10.2); NEUT % 78.4 % (42.8-82.8); PLATELET COUNT 118 K/MM3 (134-434); RBC 3.16 M/mm3 (4.00-5.60); RDW 16.9 % (11.9-15.9); WHITE BLOOD COUNT 7.9 K/mm3 (4.0-10.0)
[2017-10-22 08:16] LABS: INR 0.96 (0.82-1.09); PROTHROMBIN TIME (PATIENT) 10.9 SEC (9.7-13.0)
[2017-10-22 08:25] LABS: CHLORIDE 107 mmol/L (98-107); POTASSIUM 3.7 mmol/L (3.5-5.1); SODIUM 146 mmol/L (136-145)
[2017-10-22 08:31] LABS: ANION GAP 11 (8-16); BLOOD UREA NITROGEN 21 mg/dL (7-18); CALCIUM 8.4 mg/dL (8.5-10.1); CO2 28 mmol/L (21-32); GLUCOSE,RANDOM 118 mg/dL (74-106)
[2017-10-23 08:09] LABS: SERUM IRON SATURATION 12 % (15-55); TOTAL IRON BINDING CAPACITY 414 ug/dL (250-450); UIBC 365 ug/dL (111-343)
== END 2017-10-22 10:19 | disposition home or self-care (01) ==
LOC: JONCBLOOD 07:41 → J7W 08:47 → JONCBLOOD 10-22 10:19
PROVIDERS: ATTEND Internal Medicine Hematology & Oncology
PROC: 30233N1 Transfusion of Nonautologous Red Blood Cells into Peripheral Vein, Percutaneous Approach (ICD-10-PCS; principal; 2017-10-21)
DX: D64.9 Anemia, unspecified (principal)
CPT/HCPCS: 36415; 36430; 36511; 80048; 80053; 80076; 82607; 83516; 83540; 83550; 83735; 83921; 85025; 85610; 86340; 86922; P9034; P9038; P9058

== ENCOUNTER 2017-10-22 10:15 | Day surgery (SDC) | payer OTHER ==
[2017-10-21 13:51] VITALS: BMI 28.0
[~2017-10-22 10:15] MED LIST: SUPREP BOWEL PREP PO SCH
[2017-10-22] MEDS ORDERED: LIDOCAINE HCL/PF 2% SDV 5ML VIAL ONE (10:36)
[2017-10-22] MEDS ORDERED: PROPOFOL 20 ML ONE ×2 (10:36)
[2017-10-22] MEDS ORDERED: ePHEDrine SULFATE 50 MG/1 ML AMPULE ONE (10:36)
[2017-10-22 12:05] VITALS: TEMP 98.3
[2017-10-22 13:14] VITALS: BP 131/68; PULSE 60
--- NOTE | 2017-10-26 15:47 | PATH ---
Surgical Pathology Report Patient Name: CHANTELL CULP [facility]. Rec. #: [id number] /Age/Gender: 1945 (Age: 72) / M Account: [id number] Location: ASU-ENDOSCOPY Taken: 10/22/2017 Received: 10/22/2017 Reported: 10/26/2017 Physicians: Kisha Fuller M.D. Specimen(s) Received A: RECTAL POLYP B: BX TRANSVERSE COLON NEOPLASM Clinical History Screening Postop diagnosis: Colon polyps, colon cancer, diverticulosis Final Diagnosis A. RECTUM, POLYP, POLYPECTOMY: HYPERPLASTIC POLYP. B. TRANSVERSE COLON, NEOPLASM, BIOPSY: SUPERFICIAL FRAGMENTS OF ADENOCARCINOMA, WELL DIFFERENTIATED. (SEE NOTE) Note: Microsatellite Instability (MSI) testing by immunohistochemistry is being performed and the results will be reported separately in an addendum. Case discussed with Dr. Fuller on 10/26/17 . Electronically Signed By Lore Recinos M.D. Holly Ortega M.D. Gross Description A. Received in formalin, labeled "polyp from rectum" is a contreras, irregular portion of soft tissue measuring 0.3 cm. in greatest dimension. The specimen is submitted in toto in one cassette. B. Received in formalin, labeled "biopsy transverse colon neoplasm" are 6 contreras, irregular portions of soft tissue ranging from 0.2-0.6 cm. in greatest dimension. The specimens are submitted in toto in one cassette. /10/22/201710/22/2017
== END 2017-10-22 13:10 | disposition home or self-care (01) ==
LOC: JASU-ENDO 10:15
PROVIDERS: ATTEND Internal Medicine Gastroenterology
PROC: 0DBL8ZX Excision of Transverse Colon, Via Natural or Artificial Opening Endoscopic, Diagnostic (ICD-10-PCS; 2017-10-22)
PROC: 3E0H8GC Introduction of Other Therapeutic Substance into Lower GI, Via Natural or Artificial Opening Endoscopic (ICD-10-PCS; 2017-10-22)
PROC: 0DBP8ZX Excision of Rectum, Via Natural or Artificial Opening Endoscopic, Diagnostic (ICD-10-PCS; principal; 2017-10-22 10:00)
DX: Z12.11 Encounter for screening for malignant neoplasm of colon (principal); C18.4 Malignant neoplasm of transverse colon; Z80.0 Family history of malignant neoplasm of digestive organs; K62.1 Rectal polyp; K64.8 Other hemorrhoids; D12.5 Benign neoplasm of sigmoid colon; K57.30 Diverticulosis of large intestine without perforation or abscess without bleeding; E11.9 Type 2 diabetes mellitus without complications
CPT/HCPCS: 82962; 88305-TC

== ENCOUNTER 2017-11-03 07:46 | Day surgery (SDC) | payer OTHER ==
[2017-11-03] MEDS ORDERED: SODIUM CHLORIDE 250 ML IV ONE ×2 (08:00→13:00)
[2017-11-03] MEDS ORDERED: DIPHENHYDRAMINE 25 MG in SODIUM CHLORIDE 50 ML IVPB ONE (08:00)
[2017-11-03] MEDS ORDERED: ACETAMINOPHEN 325 MG TABLET (FP) PO ONE (08:00)
[2017-11-03] MEDS ORDERED: IMMUNE GLOBULIN IVPB ONE (08:30)
[2017-11-03] MEDS ORDERED: IMMUNE GLOB GAM CAPRYLATE IVPB ONE (08:30)
[2017-11-03 09:24] LABS: BASO % 0.6 % (0-2.0); HEMATOCRIT 33.9 % (35.4-49); LYMPH % 7.6 % (8-40); MCH 29.8 pg (25.7-33.7); MCHC 32.6 g/dl (32.0-35.9); MEAN CELL VOLUME 91.6 fl (80-96); MEAN PLT VOLUME 8.9 fl (7.5-11.1); MONO % 1.4 % (3.8-10.2); NEUT % 90.4 % (42.8-82.8); PLATELET COUNT 96 K/MM3 (134-434); RDW 18.5 % (11.9-15.9); WHITE BLOOD COUNT 5.7 K/mm3 (4.0-10.0)
[2017-11-03 09:45] LABS: ALBUMIN 3.4 g/dl (3.4-5.0); ANION GAP 10 (8-16); BILIRUBIN,TOTAL 0.5 mg/dL (0.2-1.0); BLOOD UREA NITROGEN 20 mg/dL (7-18); CALCIUM 8.4 mg/dL (8.5-10.1); CHLORIDE 106 mmol/L (98-107); CO2 26 mmol/L (21-32); CREATININE 1.3 mg/dL (0.7-1.3); POTASSIUM 4.4 mmol/L (3.5-5.1); SGOT/AST 44 U/L (15-37); SGPT/ALT 84 U/L (12-78); SODIUM 142 mmol/L (136-145); TOT PROT 6.4 g/dl (6.4-8.2)
[2017-11-03 09:46] LABS: ALK PHOS 114 U/L (45-117)
[2017-11-03 09:50] LABS: GLUCOSE,RANDOM 307 mg/dL (74-106)
[2017-11-03 09:53] LABS: ALBUMIN 3.4 g/dl (3.4-5.0); BILIRUBIN,DIRECT 0.2 mg/dL (0.0-0.2); BILIRUBIN,TOTAL 0.5 mg/dL (0.2-1.0); MAGNESIUM 2.2 mg/dL (1.8-2.4); TOT PROT 6.4 g/dl (6.4-8.2)
[2017-11-03] MEDS ORDERED: CYANOCOBALAMIN (VITAMIN B-12) 1000 MCG/1 ML VIAL IM ONE (10:00)
[2017-11-03] MEDS ORDERED: INSULIN (NOVOLOG) ASPART 100 UNITS/ML 10ML VIAL ONE (10:03)
[2017-11-03] MEDS ORDERED: INSULIN (NOVOLOG) ASPART 100 UNITS/ML 10ML VIAL SQ ONE (10:30)
[2017-11-03 11:50] LABS: ANISOCYTOSIS 2+; MACROCYTOSIS 0; PLATELET ESTIMATE DECREASED
[2017-11-03] MEDS ORDERED: INSULIN SLIDING SCALE (NOVOLOG) 1 VIAL SQ ONE (14:00)
[2017-11-03 16:58] VITALS: TEMP 97.7
[2017-11-03 17:03] VITALS: BP 128/80; PULSE 74
[2017-11-04 08:53] LABS: IGA IMMUNOGLOBULIN 72 mg/dL (61-437); IGG IMMUNOGLOBULIN 551 mg/dL (700-1600); IGM IMMUNOGLOBULIN 56 mg/dL (15-143)
== END 2017-11-03 14:25 | disposition home or self-care (01) ==
LOC: JONCCHEMO 07:46 → J7W 09:57 → JONCCHEMO 14:25
PROVIDERS: ATTEND Internal Medicine Hematology & Oncology
PROC: 3E033GC Introduction of Other Therapeutic Substance into Peripheral Vein, Percutaneous Approach (ICD-10-PCS; principal; 2017-11-03)
DX: D80.1 Nonfamilial hypogammaglobulinemia (principal); C90.00 Multiple myeloma not having achieved remission; C18.9 Malignant neoplasm of colon, unspecified; D69.6 Thrombocytopenia, unspecified
CPT/HCPCS: 96365; 96366; 96372; J1561; 36415; 80053; 80076; 82607; 82784; 83735; 85025; 85730

== ENCOUNTER 2017-11-04 08:32 | Day surgery (SDC) | payer OTHER ==
[~2017-11-04 08:32] MED LIST changes: +ACETAMINOPHEN 325 MG TABLET (FP) PO ONE; +DIPHENHYDRAMINE 25 MG in SODIUM CHLORIDE 50 ML IVPB ONE; +SODIUM CHLORIDE 250 ML IV ONE; -SUPREP BOWEL PREP PO SCH; +[UNRECOGNIZED DRUG - OTHER] IVPB ONE
[2017-11-04 09:22] VITALS: TEMP 97.7
[2017-11-04] MEDS ORDERED: SODIUM CHLORIDE 250 ML IV ONE (13:00)
[2017-11-04 13:48] VITALS: BP 120/70; PULSE 62
== END 2017-11-04 12:15 | disposition home or self-care (01) ==
LOC: JONCNONCHE 08:32 → J7W 08:33 → JONCNONCHE 12:15
PROVIDERS: ATTEND Internal Medicine Hematology & Oncology
PROC: 3E033GC Introduction of Other Therapeutic Substance into Peripheral Vein, Percutaneous Approach (ICD-10-PCS; principal; 2017-11-04)
PROC: 3E033GC Introduction of Other Therapeutic Substance into Peripheral Vein, Percutaneous Approach (ICD-10-PCS; 2017-11-04)
DX: D80.1 Nonfamilial hypogammaglobulinemia (principal); C90.00 Multiple myeloma not having achieved remission; C18.9 Malignant neoplasm of colon, unspecified; D69.6 Thrombocytopenia, unspecified
CPT/HCPCS: 96361; 96365; 96366; J1561; 96360

== ENCOUNTER 2017-12-05 08:01 | Inpatient (IN) | payer OTHER ==
--- NOTE | 2017-12-02 14:45 | HP ---
DATE OF ADMISSION: 12/06/2017 DATE OF DICTATION: 11/16/2017 REASON FOR ADMISSION: Colon cancer. BRIEF HISTORY: This is a 72-year-old gentleman whose history dates back to April of 2017, when he presented to the hospital with dysphagia and regurgitation of food. He was diagnosed with inflammatory neuropathy with bulbar palsy. He underwent an upper GI that demonstrated Schatzkis ring, and he underwent 3 upper endoscopies with dilatation and ultimately a PEG insertion. As the swelling problems resolved, he had his PEG removed (approximately 2 weeks ago). Patient was admitted to [facility] with C. difficile in June of 2017 that was managed with vancomycin without incident. Patient has a history of colon cancer in the family (brother had) and has undergone a recent colonoscopy by Dr. Fuller. The colonoscopy demonstrated two findings, one in the rectum, which is a polyp of hyperplastic nature, and the second was a mass in the transverse colon, and this consisted of an adenocarcinoma. The lesion was tattooed on the rectal side by Dr. Fuller at the time of colonoscopy. He has also undergone a recent CT scan in October 2017. The colonoscopy demonstrated an apple core lesion in the proximal transverse colon without evidence of obstruction. He has no evidence of metastatic disease to the liver or ascites. The CT was performed at [facility]. PAST MEDICAL HISTORY: Significant for multiple myeloma as mentioned above, insulin-dependent diabetes, steroid myopathy, hypertension, hyperlipidemia, gout, proximal atrial fibrillation, thrombocytopenia, fatty liver. PAST SURGICAL HISTORY: Bilateral cataracts, left knee arthroscopy, and PEG placement. SOCIAL HISTORY: Patient does not drink at this point. He is a recovering alcoholic since 1982. He denies tobacco use, as well. MEDICATIONS: Velcade, allopurinol, Lipitor, dexamethasone 4 mg weekly, Aggrenox 25 mg daily, gabapentin, oxycodone, Protonix, vitamins, and Eliquis. (Patient is stopping Eliquis and switching to Aggrenox due to patients insurance issues.) ALLERGIES: None. PHYSICAL EXAMINATION: Abdomen: Soft, nontender, nondistended. He has a PEG site removal that is healing nicely without evidence of infection. He has a small chronically incarcerated umbilical hernia. He has an upper midline diastasis. The remainder of the abdominal examination is unremarkable. Rectal: Examination deferred. IMPRESSION/PLAN: Colon cancer: This is a 72-year-old gentleman with biopsy-proven adenocarcinoma of the transverse colon. Based on the colonoscopy, it appears to be in mid colon. However, based on the CT, it appears to be in the proximal colon. In any event, the lesion is tattooed on the distal side. Patient requires a laparoscopic colectomy, at the time of laparoscopy, if this truly is closer to the right side, he can undergo an extended right miguel. However, if it is truly in the middle, the patient will require a transverse colectomy with either a colocolostomy or an ileocolostomy pending the actual location of the tumor. The patient has multiple medical comorbidities which need to be addressed prior to surgery. He currently receives chemotherapy for his multiple myeloma on an every other week basis and prior to this surgery, patient will need to stop his chemotherapy for a minimum of 2-3 weeks to allow a decreased risk of anastomotic leak at the time of surgery. Even stopping chemotherapy, the patients anastomotic risk is higher than the baseline due to his medical comorbidities. He has a history of thrombocytopenia and therefore, will follow up with his oncologist to determine his platelet count and whether or not he needs management for his platelets. Patient has a history of stroke in the past and therefore is currently anticoagulated. The anticoagulation will need to be held appropriately to allow safe surgery. Prior to surgery, due to the high surgical risk of this gentleman, he will undergo TEDS and SCDs as well as heparin or Lovenox prior to surgery. These 2 drugs can cause thrombocytopenia which is worsened, but the patient is at high risk, and therefore I think this would benefit him long-term. Patient should undergo a clear medical evaluation prior to any surgical intervention, as well. The patients physicians are all at [facility], and I would be happy to do the surgery at [facility]. At this point, the patient is scheduled at [facility]. However, his secondary insurance is [employer], [facility] does not participate, and the patient states very clearly that he does not want any [id number] expenses, and therefore if [facility] does not cover the [facility] portion, he will ultimately choose going elsewhere where his insurance is fully covered. The indications, alternatives, and risks of the surgery have been extensively discussed with his family and his . He understands and wants to proceed. DANIEL FLORES M.D. [id number] cc: Avtar Melchor MD, and Kisha Fuller MD
[2017-12-05] MEDS: oxyCODONE HCL 5 MG TABLET PO PRN ×2 (10:47→23:12)
[2017-12-05] MEDS: ALLOPURINOL 300 MG TABLET (FP) PO SCH (10:48)
[2017-12-05] MEDS: GABAPENTIN 400 MG CAPSULE (FP) PO SCH ×2 (10:48→21:30)
[2017-12-05] MEDS: METOPROLOL TARTRATE 25 MG TABLET (FP) PO SCH ×2 (10:48→21:30)
[2017-12-05] MEDS ORDERED: PEG 3350/NA SULF BICARB CL/KCL 4000 ML SOLN.RECON PO ONE (11:00)
[2017-12-05] MEDS ORDERED: ERTAPENEM SODIUM 1 GM in SODIUM CHLORIDE 50 ML IVPB ONE (11:00)
[2017-12-05] MEDS: TIMOLOL 0.5% OPHTHALMIC SOL 5 ML BOTTLE OS SCH ×2 (11:53→21:30)
[2017-12-05] MEDS: BRIMONIDINE TARTRATE 0.2% OPHTHALMIC 5 ML BOTTLE OS SCH ×2 (11:54→21:30)
[2017-12-05] MEDS: LACTATED RINGERS SOLUTION 1,000 ML IV SCH ×2 (11:54→21:31)
[2017-12-06] MEDS: LACTATED RINGERS SOLUTION 1,000 ML IV SCH ×2 (05:23→13:30)
[2017-12-06] MEDS ORDERED: ERTAPENEM SODIUM 1 GM in SODIUM CHLORIDE 50 ML IVPB ONE (07:00)
[2017-12-06] MEDS ORDERED: PT OWN MED DRAWER 7, Y5N ONE ×2 (09:09→21:40)
[2017-12-06] MEDS: BRIMONIDINE TARTRATE 0.2% OPHTHALMIC 5 ML BOTTLE OS SCH ×2 (09:15→22:46)
[2017-12-06] MEDS: METOPROLOL TARTRATE 25 MG TABLET (FP) PO SCH ×2 (09:15→21:42)
[2017-12-06] MEDS: GABAPENTIN 400 MG CAPSULE (FP) PO SCH ×2 (09:18→21:42)
[2017-12-06] MEDS: ALLOPURINOL 300 MG TABLET (FP) PO SCH (09:19)
[2017-12-06] MEDS: TIMOLOL 0.5% OPHTHALMIC SOL 5 ML BOTTLE OS SCH ×2 (09:19→22:46)
[2017-12-06] MEDS ORDERED: ETOMIDATE 20 MG/10 ML AMPUL IVPUSH ONE (09:43)
[2017-12-06] MEDS ORDERED: ROCURONIUM BROMIDE 50 MG/5 ML VIAL ONE ×3 (09:43→12:03)
[2017-12-06] MEDS ORDERED: MIDAZOLAM HCL 2 MG/2 ML SINGLE DOSE VIAL ONE (09:43)
[2017-12-06] MEDS ORDERED: fentaNYL CITRATE 250 MCG/5 ML VIAL ONE (09:43)
[2017-12-06] MEDS ORDERED: PROPOFOL 20 ML ONE (09:43)
[2017-12-06] MEDS ORDERED: ERTAPENEM SODIUM 1 GM/50 ML PRE-DOCKED IVPB ONE (10:28)
[2017-12-06] MEDS ORDERED: DEXAMETHASONE SOD PHOSPHATE 4 MG/1 ML VIAL ONE (10:35)
[2017-12-06] MEDS ORDERED: NEOSTIGMINE METHYLSULFATE 0.5 MG/ML - 10 ML MDV ONE (13:03)
[2017-12-06] MEDS ORDERED: GLYCOPYRROLATE 0.2 MG/1 ML VIAL ONE (13:03)
[2017-12-06] MEDS ORDERED: KETOROLAC TROMETHAMINE 30 MG/1 ML VIAL ONE (13:20)
--- NOTE | 2017-12-06 13:22 | OP ---
Operative Note - Note: Operative Date: 12/06/17 Pre-Operative Diagnosis: colon cancer Operation: laparoscopic extended right miguel-colectomy Findings: tumor located at proximal transverse colon, no signs of mets, significant adhesions Post-Operative Diagnosis: Same as Pre-op Surgeon: Monty Ribeiro Associate Product Manager: Talib Alicia Anesthesiologist/INSPECTOR SCREEN PRINTING: Jake Meredith Anesthesia: General Specimens Removed: extended right miguel-colectomy Estimated Blood Loss (mls): 50
[2017-12-06] MEDS ORDERED: oxyCODONE HCL 5 MG TABLET PO PRN (13:24)
[2017-12-06] MEDS ORDERED: ACETAMINOPHEN 325 MG TABLET (FP) PO PRN (13:24)
[2017-12-06] MEDS ORDERED: ONDANSETRON 4 MG/2 ML VIAL IVPUSH PRN (13:24)
[2017-12-06] MEDS ORDERED: HYDROmorphone *PCA* 10MG/50ML DISP.SYRIN PCA SCH (13:45)
--- NOTE | 2017-12-06 20:01 | OP ---
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 PROCEDURE: Laparoscopic extended right hemicolectomy with extensive lysis of adhesions, repair of incarcerated umbilical hernia. SURGEON: Monty Ribeiro MD WET PROCESS MILLER HEAD ASSISTANT: Talib Alicia DO ANESTHESIA: General by Jake Meredith MD ESTIMATED BLOOD LOSS: Minimal. SPECIMEN: Colon. INDICATIONS FOR PROCEDURE: This is a 72-year-old gentleman biopsy proven of a near-obstructing colon cancer. It was noted to be in the proximal transverse colon. The area was tattooed at the time of colonoscopy on the rectal side. Patient identified and appropriately positioned on the operating room table. After placement of general anesthesia, the abdomen prepped and draped in usual sterile fashion with ChloraPrep. A supraumbilical incision was made deep through the subcutaneous tissue. The fascia was divided. The peritoneum incised under direct vision. A Veress needle followed by a 10-mm port placed. The remaining ports all placed under direct vision (5 mm). Upon placement of a camera, there was a large amount of intraabdominal fat and it appeared the patient had some weird anatomic adhesions as well. The omentum was plastered to the right gutter. The stomach was also plastered to the anterior abdominal wall along with the transverse omentum. This was to be expected given the previous PEG placement. The plastered omentum in the right gutter and right pelvis was divided with the US Surgical LigaSure device. This freed the omentum, and due to the large amount of intraabdominal fat, it was difficult to navigate the abdomen. The mesentery was noted to be very thickened with fat. In any event, because of all this fat, a different approach was taken; the gastrocolic was with the LigaSure device. The transverse colon now freed and moved inferiorly. At this point, the transverse colon was examined for the tattooed area. The tattooed area was barely visualized. What was noted was the area of puckering on the outside of the colon and in palpating of the transverse colon, there was a large firm mass at the level of the area of puckering. Once this was identified, there was a very faint area of bluing noted in the transverse colon approximately 2 inches away. The transverse colon now lifted inferiorly and the mesentery identified to the transverse colon. The right branch of the middle colic identified and divided with the cautery. In this particular case, given the location of this tumor, the left branch had to be sacrificed as well, leaving the marginal artery of [place] intact. Next, the colon was then mobilized off the hepatic flexure with the cautery, and now going from mediolateral, the ileocolic pedicle identified. The peritoneal fat was incised, and the pedicle itself was taken with LigaSure device. Four wells were placed prior to complete division. The colon was now off the retroperitoneum with blunt dissection. This was taken toward the hepatic flexure. The 2 windows were subsequently connected. The right colon was now mobilized off the right gutter with the cautery again. Now , the ileum was plastered to the right gutter, where the omentum had previously been plastered. It did not appear this patient had any previous surgery, but he was noted to have a very redundant sigmoid colon and possibly could have had diverticulitis that caused the inflammatory changes in the right pelvic and gutter region. These adhesions were taken down sharply and the ileum mobilized. At this point, the umbilical port site was then lengthened. Due to the large tumor and large amount of fat, the incision had to be lengthened significantly to allow removal of the tumor and colon. A wound protector placed. The area was subsequently draped off. The right colon brought out through the wound protector as well as the ileum and now, the transverse colon was mobilized out as well. The proximal line of resection was chosen approximately 6-7 inches from the ileocecal valve, and the distal line of resection was chosen approximately 2-3 inches from the actual tumor. More was not removed because of the blood supply that was to the remaining transverse colon. The ileum was anastomosed to the remainder of the transverse colon in a functional side- side fashion with a HIRAL-80 3.8-mm stapler. The enterotomy closed with a TA-60 3.5-mm stapler, and the transverse staple line oversewn with interrupted 3-0 silk Lembert sutures. The anastomosis was returned to the abdominal cavity. Palpation of the lumen was easily 2 fingerbreadths. The operative field now irrigated and the irrigant retrieved. The ports were removed under direct vision. Port sites were hemostatic. At this point, the surgeon and first aid teacher changed gloves and gowns as well as the scrub. The abdomen was now irrigated with approximately 5 L of warm saline. The operative field noted to be hemostatic. The irrigant retrieved and noted to be clear. The midline fascia reapproximated with a running number 1 PDS suture. The subcutaneous space and tissue were irrigated and then packed with Iodoform packing, followed by 4 x 4 gauze. The wound was left open. The trocar wounds were then closed with lucian. The umbilical hernia was then reapproximated and closed within the primary closure of the midline. The suturing around the umbilical hernia was done in a 5-mm x 5-mm depth fashion to close the defect. At the conclusion of this case, sponge and instrument counts were correct. ATTESTATION: A brief operative note handwritten on the preprinted form and [facility] will be queried prior to giving any narcotics. Eloy HUFF [id number] cc: MD Kisha Miles MD MTDD
[2017-12-07] MEDS: LACTATED RINGERS SOLUTION 1,000 ML IV SCH ×2 (01:45→13:30)
[2017-12-07 07:27] LABS: HEMATOCRIT 24.6 % (35.4-49); HEMOGLOBIN 8.3 GM/dL (11.7-16.9); MCH 31.1 pg (25.7-33.7); MCHC 33.8 g/dl (32.0-35.9); MEAN CELL VOLUME 92.2 fl (80-96); MEAN PLT VOLUME 7.8 fl (7.5-11.1); PLATELET COUNT 103 K/MM3 (134-434); RBC 2.67 M/mm3 (4.00-5.60); RDW 20.1 % (11.9-15.9); WHITE BLOOD COUNT 6.8 K/mm3 (4.0-10.0)
[2017-12-07] MEDS ORDERED: ERTAPENEM SODIUM 1 GM in SODIUM CHLORIDE 50 ML IVPB ONE (08:00)
[2017-12-07 08:11] LABS: ANION GAP 8 (8-16); BLOOD UREA NITROGEN 12 mg/dL (7-18); CALCIUM 7.9 mg/dL (8.5-10.1); CHLORIDE 107 mmol/L (98-107); CO2 29 mmol/L (21-32); GLUCOSE,RANDOM 133 mg/dL (74-106); MAGNESIUM 1.7 mg/dL (1.8-2.4); PHOSPHOROUS 3.8 mg/dL (2.5-4.9); POTASSIUM 4.1 mmol/L (3.5-5.1); SODIUM 144 mmol/L (136-145)
--- NOTE | 2017-12-07 09:42 | PN ---
Progress Note (short form) - Note Progress Note: Anesthesia postop note 72 y/o M s/p GA for Laparoscopic hemicolectomy, dilaudid procurement analyst for postop pain management. POD#1, vss, aaox3, pain well controlled, no complaints. Continue procurement analyst for now. No anesthesia complications.
[2017-12-07] MEDS: ALLOPURINOL 300 MG TABLET (FP) PO SCH (10:07)
[2017-12-07] MEDS: PANTOPRAZOLE SODIUM 40 MG VIAL IVPUSH SCH (10:07)
[2017-12-07] MEDS: METOPROLOL TARTRATE 25 MG TABLET (FP) PO SCH ×2 (10:07→22:05)
[2017-12-07] MEDS: ENOXAPARIN NA (PORCINE) 40 MG/0.4 ML DISP.SYRIN SQ SCH (10:07)
[2017-12-07] MEDS: GABAPENTIN 400 MG CAPSULE (FP) PO SCH ×2 (10:07→22:05)
[2017-12-07] MEDS: TIMOLOL 0.5% OPHTHALMIC SOL 5 ML BOTTLE OS SCH ×3 (10:08→22:06)
[2017-12-07] MEDS: BRIMONIDINE TARTRATE 0.2% OPHTHALMIC 5 ML BOTTLE OS SCH ×3 (10:08→22:06)
[2017-12-07] MEDS ORDERED: MAGNESIUM SULF 50% (8.12 MEQ/2 ML-1 GM VIAL) IVPB ONE ×2 (11:53→15:00)
--- NOTE | 2017-12-07 11:55 | PN ---
Progress Note (short form) - Note Progress Note: surgery pt seen and examined. feels well. not oob yet afebrile abd- soft, mild distension, incisions clean, urine clear, 2500 Laboratory Tests 12/07/17 12/07/17 06:00 06:00 WBC 6.8 Hgb 8.3 L Plt Count 103 L Magnesium 1.7 L D A/P 1) Pod#1-cont npo, cont ivf, remove gonzáles 2) prophylaxis- lovenox, protonix, finish invanz 3) pain- stop publicity director. morphine and oxycodone 4) colon ca- follow path 5) thrombocytopenia- chronic and stable 6) hypomagnesemia- will replace 7) neuropathy- on home meds
[2017-12-07] MEDS ORDERED: MAGNESIUM SULFATE IN WATER 2 GM/50 ML IVPB IVPB ONE (13:00)
[2017-12-07] MEDS: oxyCODONE HCL 5 MG TABLET PO PRN (17:41)
--- NOTE | 2017-12-07 18:47 | CONSULT ---
Consult Consult Specialty:: Oncology Referred by:: Dr. Alicia Reason for Consultation:: Colon ca-s/p surgery. History of myeloma s/p transplant on maintenance chemotherpay. 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: Peripheral Neuropathy Cardio/Vascular: Yes: AFIB, HTN Gastrointestinal: Yes: Other (newly diagnosed colon ca) Psych: Yes: Depression Musculoskeletal: Yes: Chronic low back pain, Osteoarthritis Endocrine: Yes: Diabetes Mellitus Additional Medical History: glaucoma with decreased vision and need for surgeryleft eye - Alcohol/Substance Use Hx Alcohol Use: No History of Substance Use: reports: None - Smoking History Smoking history: Former smoker Have you smoked in the past 12 months: No If you are a former smoker, when did you quit?: 1975 - Social History Usual Living Arrangement: With Spouse (Currently residing in [facility]) ADL: Independent History of Recent Travel: No Home Medications - Allergies Allergies/Adverse Reactions: Allergies Allergy/AdvReac Type Severity Reaction Status Date / Time No Known Allergies Allergy Verified 04/08/17 11:08 - Home Medications Home Medications: Ambulatory Orders Gabapentin 300 mg PEG BID 10/04/16 Apixaban [Eliquis -] 5 mg PO BID tablet 05/03/17 Insulin Sliding Scale [Novolog Vial Sliding Scale -] 1 vial SQ ASDIR 06/24/17 Allopurinol 300 mg PO DAILY 10/21/17 Aspirin/Dipyridamole [Aggrenox -] 1 combo PO DAILY 10/21/17 Atorvastatin Ca [Lipitor] 40 mg PO HS 10/21/17 Bortezomib [Velcade -] 3.5 mg IVPUSH ASDIR 10/21/17 Cyanocobalamin (Vitamin B-12) [Vitamin B12] 2,500 mcg PO DAILY 10/21/17 Dexamethasone 4 mg PO WEEKLY 10/21/17 Ivig 1 gm IV ASDIR 10/21/17 Oxycodone HCl [Oxycontin] 10 mg PO DAILY 10/21/17 Pantoprazole Sodium [Protonix] 40 mg PO DAILY 10/21/17 Family Disease History - Family Disease History Family Disease History: Other: Father (: 68: lung Ca), Mother (: 60's: leukemia ), Brother (1, : 65: colon cancer), Son (1, healthy), Daughter (1 with SLE) Review of Systems - Review of Systems Constitutional: denies: Lethargy, Loss of Appetite, Night Sweats, Unintentional Wgt. Loss, Weakness Eyes: reports: Blurred Vision, Other (glaucoma -- decreased vision) HENT: denies: Difficult Swallowing, Epistaxis, Hearing Loss, Ringing in Ears Neck: denies: Stiffness, Swollen Glands, Tenderness Cardiovascular: reports: Shortness of Breath. denies: Chest Pain, Edema Respiratory: reports: SOB on Exertion. denies: Exercise Intolerance, PND Gastrointestinal: reports: Rectal Bleeding. denies: Abdominal Pain, Constipation, Diarrhea, Dysphagia Genitourinary: denies: Dysuria, Flank Pain, Frequency Musculoskeletal: reports: Back Pain Integumentary: denies: Eczema, Erythema Neurological: reports: Pre-Existing Deficit, Other (peripheral neuropathy) Hematology/Lymphatic: denies: Easily Bruised, Excessive Bleeding, Swollen Glands Psychiatric: reports: No Symptoms Physical Exam Vital Signs: Vital Signs Temperature 99.0 F 12/07/17 13:10 Pulse Rate 82 12/07/17 08:00 Respiratory Rate 20 12/07/17 08:00 Blood Pressure 98/62 12/07/17 13:10 O2 Sat by Pulse Oximetry (%) 100 12/07/17 08:00 Constitutional: Yes: Mild Distress Eyes: Yes: Other (erythema-conjunctivae). No: Cataracts, Ptosis, Sclera Icterus HENT: Yes: Normocephalic. No: Epistaxis, Thrush, Tonsillar Exudate Neck: Yes: Supple. No: Lymphadenopathy Cardiovascular: Yes: Regular Rate and Rhythm, Murmur Respiratory: Yes: Regular Gastrointestinal: Yes: Other (s/p surgery ; lucian in place) ...Rectal Exam: No: Other Renal/: No: CVA Tenderness - Right Extremities: No: Cyanosis, Deformity Wound/Incision: Yes: Lucian Intact Neurological: Yes: WNL, Alert, Oriented, Pre-Existing Deficit ...Motor Strength: WNL Psychiatric: Yes: WNL Labs: CBC, BMP 12/07/17 06:00 12/07/17 06:00 Problem List - Problems (1) CIDP (chronic inflammatory demyelinating polyneuropathy) Code(s): G61.81 - CHRONIC INFLAMMATORY DEMYELINATING POLYNEURITIS (2) DVT prophylaxis Code(s): [id number] - (3) Hypercholesterolemia Code(s): E78.00 - PURE HYPERCHOLESTEROLEMIA, UNSPECIFIED (4) Multiple myeloma Assessment/Plan: MM in remission S/P transplant on maintenance velcade decadron. To hold chemotherapy as discussed - minimal 3 weeks Code(s): C90.00 - MULTIPLE MYELOMA NOT HAVING ACHIEVED REMISSION Qualifiers: Multiple myeloma remission status: in remission Qualified Code(s): C90.01 - Multiple myeloma in remission (5) Thrombocytopenia Assessment/Plan: Platelets pre-op 91K Secondary to ongoing chemotherapy. Code(s): D69.6 - THROMBOCYTOPENIA, UNSPECIFIED Assessment/Plan Patient with history of myeloma in remission s/p transplant and therapy. Developed Fe++ deficiency and found to have adenoca of colon o colonoscopy. Underwent laparoscopic hemicolectomy. Path pending. Then management.
[2017-12-07] MEDS: CYANOCOBALAMIN (VITAMIN B-12) 1000 MCG/1 ML VIAL IM SCH (19:01)
[2017-12-08 01:13] VITALS: BMI 29.0
[2017-12-08] MEDS: LACTATED RINGERS SOLUTION 1,000 ML IV SCH ×2 (02:30→10:47)
[2017-12-08 08:34] LABS: BASO % 0.5 % (0-2.0); EOS % 0.5 % (0-4.5); HEMATOCRIT 23.1 % (35.4-49); HEMOGLOBIN 7.8 GM/dL (11.7-16.9); LYMPH % 17.1 % (8-40); MCH 31.1 pg (25.7-33.7); MCHC 33.6 g/dl (32.0-35.9); MEAN CELL VOLUME 92.4 fl (80-96); MEAN PLT VOLUME 7.8 fl (7.5-11.1); MONO % 10.8 % (3.8-10.2); NEUT % 71.1 % (42.8-82.8); PLATELET COUNT 97 K/MM3 (134-434); RDW 20.6 % (11.9-15.9)
[2017-12-08 08:52] LABS: ANION GAP 9 MMOL/L (8-16); BLOOD UREA NITROGEN 9 mg/dL (7-18); CALCIUM 7.9 mg/dL (8.5-10.1); CHLORIDE 108 mmol/L (98-107); CO2 28 mmol/L (21-32); CREATININE 0.8 mg/dL (0.7-1.3); GLUCOSE,RANDOM 100 mg/dL (74-106); MAGNESIUM 2.2 mg/dL (1.8-2.4); PHOSPHOROUS 2.3 mg/dL (2.5-4.9); POTASSIUM 3.6 mmol/L (3.5-5.1); SODIUM 145 mmol/L (136-145)
[2017-12-08] MEDS: morphine SULFATE 4 MG/ML VIAL IVPB PRN ×3 (09:04→20:14)
--- NOTE | 2017-12-08 09:06 | PN ---
Progress Note (short form) - Note Progress Note: ANESTHESIOLOGY POST-OP CHECK 72M s/p laparoscopic hemicolectomy under general anesthesia, POD #2. No acute complaints. Pain 6/10 and tolerable, denies N/V Vital Signs Temperature 99.9 F H 12/08/17 08:58 Pulse Rate 98 H 12/08/17 08:58 Respiratory Rate 20 12/08/17 08:58 Blood Pressure 125/55 12/08/17 08:58 O2 Sat by Pulse Oximetry (%) 100 12/07/17 08:00 Active Medications Acetaminophen (Tylenol -) 650 mg PO Q4H PRN PRN Reason: FEVER Allopurinol (Zyloprim -) 300 mg PO DAILY [facility] Last Admin: 12/07/17 10:07 Dose: 300 mg Brimonidine Tartrate (Alphagan 0.2% -) 1 drop OS BID [facility] Last Admin: 12/07/17 22:06 Dose: 1 drp Cyanocobalamin (Vitamin B12 Injection -) 1,000 mcg IM Q3D [facility] Last Admin: 12/07/17 19:01 Dose: 1,000 mcg Enoxaparin Sodium (Lovenox -) 40 mg SQ DAILY [facility] Last Admin: 12/07/17 10:07 Dose: 40 mg Gabapentin (Neurontin -) 400 mg PO BID [facility] Last Admin: 12/07/17 22:05 Dose: 400 mg Lactated Ringer's (Lactated Ringers Solution) 1,000 mls @ 100 mls/hr IV ASDIR [facility] Last Admin: 12/08/17 02:30 Dose: 100 mls/hr Metoprolol Tartrate (Lopressor -) 25 mg PO BID [facility] Last Admin: 12/07/17 22:05 Dose: 25 mg Morphine Sulfate (Morphine Sulfate) 4 mg IVPB Q3H PRN PRN Reason: PAIN LEVEL 7 - 10 Last Admin: 12/08/17 09:04 Dose: 4 mg Ondansetron HCl (Zofran Injection) 4 mg IVPUSH Q6H PRN PRN Reason: NAUSEA Oxycodone HCl (Roxicodone -) 10 mg PO Q4H PRN PRN Reason: PAIN SCALE 4-6 Last Admin: 12/07/17 17:41 Dose: 10 mg Pantoprazole Sodium (Protonix Iv) 40 mg IVPUSH DAILY [facility] Last Admin: 12/07/17 10:07 Dose: 40 mg Timolol Maleate (Timoptic 0.5%) 1 drop OS BID JAMIE Last Admin: 12/07/17 22:06 Dose: 1 drop Gen: Awake, alert No apparent anesthesia complications. Pain well controlled. 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 Continue management as per primary team.
[2017-12-08] MEDS ORDERED: PT OWN MED DRAWER 7, Y5N ONE ×2 (10:30→21:37)
[2017-12-08] MEDS: METOPROLOL TARTRATE 25 MG TABLET (FP) PO SCH ×2 (10:39→21:43)
[2017-12-08] MEDS: ENOXAPARIN NA (PORCINE) 40 MG/0.4 ML DISP.SYRIN SQ SCH (10:39)
[2017-12-08] MEDS: ALLOPURINOL 300 MG TABLET (FP) PO SCH (10:39)
[2017-12-08] MEDS: TIMOLOL 0.5% OPHTHALMIC SOL 5 ML BOTTLE OS SCH ×2 (10:39→21:43)
[2017-12-08] MEDS: GABAPENTIN 400 MG CAPSULE (FP) PO SCH ×2 (10:39→21:43)
[2017-12-08] MEDS: BRIMONIDINE TARTRATE 0.2% OPHTHALMIC 5 ML BOTTLE OS SCH ×2 (10:39→21:44)
[2017-12-08] MEDS: PANTOPRAZOLE SODIUM 40 MG VIAL IVPUSH SCH (10:40)
[2017-12-08 11:08] LABS: ANISOCYTOSIS 2+; MACROCYTOSIS 1+; TEAR DROP CELLS 1+
[2017-12-08 11:10] LABS: PLATELET ESTIMATE SLT DECREASE
[2017-12-08] MEDS ORDERED: POTASSIUM PHOSPHATE 27 MM in DEXTROSE 5%-WATER - 250 ML IVPB ONE (11:30)
[2017-12-08] MEDS ORDERED: POTASSIUM PHOSPHATE 27 MM in DEXTROSE 5%-WATER - 500 ML IVPB ONE (11:30)
--- NOTE | 2017-12-08 13:15 | PN ---
Progress Note (short form) - Note Progress Note: surgery pt seen and examined. still feels well. oob with PT, voiding afebrile abd- soft, mild distension, incisions clean, minimal right sided tenderness Laboratory Tests 12/08/17 12/08/17 08:15 08:15 WBC 5.0 Phosphorus 2.3 L D A/P 1) Pod#2-cont npo, cont ivf, 2) prophylaxis- lovenox, protonix, 3) pain- morphine and oxycodone 4) colon ca- follow path 5) thrombocytopenia- chronic and stable, per hematology. no need to stop lovenox or protonix. 6) hypomagnesemia- resolved 7) neuropathy- on home meds 8) hypophosphatemia- will replace 9) afib- can resume full anticoagulation tomorrow if blood work stable
--- NOTE | 2017-12-08 18:12 | PN ---
Progress Note (short form) - Note Progress Note: Patient seen and examined Low grade temp Complains of abdominal pains Last Vital Signs Temp Pulse Resp BP Pulse Ox 100.9 F H 90 20 133/73 100 12/08/17 15:33 12/08/17 15:33 12/08/17 08:58 12/08/17 15:33 12/07/17 08:00 HEENT: glaucoma , diminished vision bilateral Oropharynx: No thrush, No mucositis Cor: RSR, No murmurs, Lungs: crackles left base Abd: Soft, diminished bowel sounds Ext:No significant edema Skin: No rashes, Integument intact CBC, BMP 12/08/17 08:15 12/08/17 08:15 Current Medications Generic Name Dose Route Start Last Admin Trade Name Freq PRN Reason Stop Dose Admin Acetaminophen 650 mg 12/06/17 13:24 Tylenol - PO Q4H PRN FEVER Allopurinol 300 mg 12/07/17 10:00 12/08/17 10:39 Zyloprim - PO 300 mg DAILY JAMIE Administration Brimonidine Tartrate 1 drop 12/06/17 22:00 12/08/17 10:39 Alphagan 0.2% - OS 1 drp BID JAMIE Administration Cyanocobalamin 1,000 mcg 12/07/17 18:00 12/07/17 19:01 Vitamin B12 Injection - IM 1,000 mcg Q3D JAMIE Administration Enoxaparin Sodium 40 mg 12/07/17 10:00 12/08/17 10:39 Lovenox - SQ 40 mg DAILY JAMIE Administration Gabapentin 400 mg 12/06/17 22:00 12/08/17 10:39 Neurontin - PO 400 mg BID JAMIE Administration Lactated Ringer's 1,000 mls @ 100 mls/hr 12/06/17 13:49 12/08/17 10:47 Lactated Ringers Solution IV 100 mls/hr ASDIR JAMIE Administration Metoprolol Tartrate 25 mg 12/06/17 22:00 12/08/17 10:39 Lopressor - PO 25 mg BID JAMIE Administration Morphine Sulfate 4 mg 12/06/17 13:24 12/08/17 14:17 Morphine Sulfate IVPB 4 mg Q3H PRN Administration PAIN LEVEL 7 - 10 Ondansetron HCl 4 mg 12/06/17 13:24 Zofran Injection IVPUSH Q6H PRN NAUSEA Oxycodone HCl 10 mg 12/07/17 15:52 12/07/17 17:41 Roxicodone - PO 10 mg Q4H PRN Administration PAIN SCALE 4-6 Pantoprazole Sodium 40 mg 12/07/17 10:00 12/08/17 10:40 Protonix Iv IVPUSH 40 mg DAILY JAMIE Administration Timolol Maleate 1 drop 12/06/17 22:00 12/08/17 10:39 Timoptic 0.5% OS 1 drop BID JAMIE Administration Impression: Colon ca- s/p laparoscopic resection - path pending Low grade fever- likely atelectasis no therapy as yet - encouraged for incentive spirometry Anemia- being monitored - if further decline - transfusion Thrombocytopenia - chronic - stable Hx of myeloma - s/p transplant - in remission Plan : monitor fever curve Await bowel recovery Path. Transfuse prn fall in Hb/Hct Problem List - Problems (1) CIDP (chronic inflammatory demyelinating polyneuropathy) Code(s): G61.81 - CHRONIC INFLAMMATORY DEMYELINATING POLYNEURITIS (2) DVT prophylaxis Code(s): [id number] - (3) Hypercholesterolemia Code(s): E78.00 - PURE HYPERCHOLESTEROLEMIA, UNSPECIFIED (4) Multiple myeloma Code(s): C90.00 - MULTIPLE MYELOMA NOT HAVING ACHIEVED REMISSION Qualifiers: Multiple myeloma remission status: in remission Qualified Code(s): C90.01 - Multiple myeloma in remission (5) Thrombocytopenia Code(s): D69.6 - THROMBOCYTOPENIA, UNSPECIFIED
[2017-12-09] MEDS: morphine SULFATE 4 MG/ML VIAL IVPB PRN ×2 (04:07→09:00)
[2017-12-09] MEDS: LACTATED RINGERS SOLUTION 1,000 ML IV SCH ×3 (05:39→17:15)
[2017-12-09 08:01] LABS: BASO % 0.6 % (0-2.0); EOS % 0.8 % (0-4.5); HEMATOCRIT 24.5 % (35.4-49); LYMPH % 16.8 % (8-40); MCH 30.6 pg (25.7-33.7); MCHC 32.8 g/dl (32.0-35.9); MEAN CELL VOLUME 93.3 fl (80-96); MEAN PLT VOLUME 7.7 fl (7.5-11.1); NEUT % 69.8 % (42.8-82.8); PLATELET COUNT 93 K/MM3 (134-434); RBC 2.62 M/mm3 (4.00-5.60); RDW 19.8 % (11.9-15.9); WHITE BLOOD COUNT 4.8 K/mm3 (4.0-10.0)
[2017-12-09] MEDS ORDERED: PT OWN MED DRAWER 7, Y5N ONE ×2 (08:52→21:13)
[2017-12-09] MEDS: ENOXAPARIN NA (PORCINE) 40 MG/0.4 ML DISP.SYRIN SQ SCH (09:00)
[2017-12-09] MEDS: BRIMONIDINE TARTRATE 0.2% OPHTHALMIC 5 ML BOTTLE OS SCH ×2 (09:00→21:18)
[2017-12-09] MEDS: ALLOPURINOL 300 MG TABLET (FP) PO SCH (09:00)
[2017-12-09] MEDS: TIMOLOL 0.5% OPHTHALMIC SOL 5 ML BOTTLE OS SCH ×2 (09:01→21:18)
[2017-12-09] MEDS: GABAPENTIN 400 MG CAPSULE (FP) PO SCH ×2 (09:01→21:18)
[2017-12-09] MEDS: METOPROLOL TARTRATE 25 MG TABLET (FP) PO SCH ×2 (09:01→21:17)
[2017-12-09] MEDS: PANTOPRAZOLE SODIUM 40 MG VIAL IVPUSH SCH (09:01)
[2017-12-09 09:53] LABS: ANION GAP 9 MMOL/L (8-16); BLOOD UREA NITROGEN 8 mg/dL (7-18); CALCIUM 7.9 mg/dL (8.5-10.1); CHLORIDE 110 mmol/L (98-107); CO2 27 mmol/L (21-32); CREATININE 0.8 mg/dL (0.7-1.3); GLUCOSE,RANDOM 101 mg/dL (74-106); PHOSPHOROUS 3.6 mg/dL (2.5-4.9); POTASSIUM 4.5 mmol/L (3.5-5.1); SODIUM 146 mmol/L (136-145)
[2017-12-09 11:03] LABS: ANISOCYTOSIS 1+; MACROCYTOSIS 1+; PLATELET ESTIMATE SLT DECREASE
[2017-12-09] MEDS: oxyCODONE HCL 5 MG TABLET PO PRN ×2 (14:25→21:22)
--- NOTE | 2017-12-09 14:50 | PN ---
Progress Note (short form) - Note Progress Note: surgery pt seen and examined. still feels well. did not get out of bed. now low grade fever. abd- soft, still mild distension, incisions clean would some irritation from dermabond ? allergy, mild right sided tenderness Laboratory Tests 12/09/17 07:28 WBC 4.8 Hgb 8.0 L A/P 1) Pod#3-cont npo, cont ivf, 2) prophylaxis- protonix, 3) pain- morphine and oxycodone 4) colon ca- follow path 5) thrombocytopenia- chronic and stable, per hematology. 6) hypomagnesemia- resolved 7) neuropathy- on home meds 8) hypophosphatemia- resolved 9) afib- will resume full anticoagulation 10) low grade fever- likely atelectasis. pt is not participating in his care by not ambulating tid as I have advised.
[2017-12-09] MEDS: APIXABAN 5 MG TABLET PO SCH (21:17)
[2017-12-10] MEDS: oxyCODONE HCL 5 MG TABLET PO PRN ×2 (06:41→13:14)
[2017-12-10] MEDS: LACTATED RINGERS SOLUTION 1,000 ML IV SCH (06:41)
[2017-12-10 08:31] LABS: BASO % 0.6 % (0-2.0); EOS % 1.1 % (0-4.5); HEMATOCRIT 24.2 % (35.4-49); LYMPH % 14.8 % (8-40); MCH 31.1 pg (25.7-33.7); MCHC 33.3 g/dl (32.0-35.9); MEAN CELL VOLUME 93.5 fl (80-96); MONO % 8.9 % (3.8-10.2); NEUT % 74.6 % (42.8-82.8); PLATELET COUNT 109 K/MM3 (134-434); RBC 2.59 M/mm3 (4.00-5.60); RDW 19.7 % (11.9-15.9); WHITE BLOOD COUNT 6.1 K/mm3 (4.0-10.0)
--- NOTE | 2017-12-10 08:38 | PN ---
Progress Note (short form) - Note Progress Note: Patient stable and haslittle pain on Po pain medication.NETWORK INTERN was DC yesterday.no any anesthesia related problem.Patient Dc from the anesthesia care.
[2017-12-10 09:02] LABS: ANION GAP 8 MMOL/L (8-16); BLOOD UREA NITROGEN 10 mg/dL (7-18); CALCIUM 7.8 mg/dL (8.5-10.1); CHLORIDE 104 mmol/L (98-107); CO2 27 mmol/L (21-32); CREATININE 0.8 mg/dL (0.7-1.3); GLUCOSE,RANDOM 83 mg/dL (74-106); MAGNESIUM 1.9 mg/dL (1.8-2.4); PHOSPHOROUS 3.2 mg/dL (2.5-4.9); SODIUM 139 mmol/L (136-145)
[2017-12-10] MEDS ORDERED: PT OWN MED DRAWER 7, Y5N ONE ×2 (10:07→21:03)
[2017-12-10] MEDS: GABAPENTIN 400 MG CAPSULE (FP) PO SCH ×2 (10:09→21:19)
[2017-12-10] MEDS: TIMOLOL 0.5% OPHTHALMIC SOL 5 ML BOTTLE OS SCH ×2 (10:09→21:20)
[2017-12-10] MEDS: PANTOPRAZOLE SODIUM 40 MG VIAL IVPUSH SCH (10:09)
[2017-12-10] MEDS: METOPROLOL TARTRATE 25 MG TABLET (FP) PO SCH ×2 (10:09→21:20)
[2017-12-10] MEDS: ALLOPURINOL 300 MG TABLET (FP) PO SCH (10:09)
[2017-12-10] MEDS: APIXABAN 5 MG TABLET PO SCH ×2 (10:10→21:20)
[2017-12-10] MEDS: BRIMONIDINE TARTRATE 0.2% OPHTHALMIC 5 ML BOTTLE OS SCH ×2 (10:10→21:21)
[2017-12-10 10:55] LABS: ANISOCYTOSIS 1+; MACROCYTOSIS 1+; PLATELET ESTIMATE DECREASED; TEAR DROP CELLS 1+
--- NOTE | 2017-12-10 14:20 | PN ---
Progress Note (short form) - Note Progress Note: surgery pt seen and examined. still feels well. passing gas afebrile abd- soft, less distension, incisions clean allergic rash around staple sites. mild right sided tenderness Laboratory Tests Laboratory Tests 12/10/17 07:30 WBC 6.1 Hgb 8.0 L Plt Count 109 L A/P 1) Pod#4- full liquids, stop ivf, 2) prophylaxis- protonix, oob, spirometer 3) pain- morphine and oxycodone 4) colon ca- follow path 5) thrombocytopenia- improving 6) hypomagnesemia- resolved 7) neuropathy- on home meds 8) hypophosphatemia- resolved 9) afib-on full anticoagulation 10) low grade fever- likely atelectasis. improving 11) contact dermatitis- either from lucian or glue. if i remove them now will dehisce the skin. will apply benadryl cream. will apply vaseline to soften glue for removal. would like to keep lucian to wed
--- NOTE | 2017-12-10 16:34 | PATH ---
Surgical Pathology Report Patient Name: CHANTELL CULP [facility]. Rec. #: [id number] /Age/Gender: 1945 (Age: 72) / M Account: [id number] Location: [address] [place] [address]/[facility] Taken: 12/06/2017 Received: 12/07/2017 Reported: 12/10/2017 Physicians: Monty Ribeiro Specimen(s) Received RIGHT HEMICOLECTOMY Clinical History Colon cancer Final Diagnosis COLON, RIGHT, HEMICOLECTOMY: INVASIVE ADENOCARCINOMA, MODERATELY DIFFERENTIATED. Tumor measures 4.3 x 3.1 cm (gross measurement). TUMOR LOCATED AT right colon. Tumor invades into subserosal fat. No lymphovascular OR PERINEURAL invasion identified. Surgical margins are negative (PROXIMAl, DISTAL, RADIAL). APPENDIX WITH FIBROUS OBLITERATION. CECUM AND Terminal ileum without significant pathologic findings SEVENTEEN Benign lymph nodes (0/17). Pathologic stage: pT3 pN0. SEE Invasive summary below. Comments Colorectal Carcinoma :Surgical Pathology Cancer Case Summary (Based on AJCC TNM 8 th edition) Procedure _X_ Right hemicolectomy Tumor Site _X__ Right (ascending) colon Tumor Size Greatest dimension (centimeters): 4.3 x 3.1 cm Macroscopic Tumor Perforation _X_ Not identified Histologic Type _X_ Adenocarcinoma Histologic Grade _X_ G2: Moderately differentiated Tumor Extension _X__ Tumor invades through the muscularis propria into pericolorectal tissue Margins _X__ All margins are uninvolved by invasive carcinoma, high-grade dysplasia, intramucosal adenocarcinoma, and adenoma Margins examined: Proximal, distal, radial Treatment Effect _X__ No known presurgical therapy Lymphovascular Invasion _X__ Not identified Perineural Invasion _X__ Not identified Tumor Deposits _X_ Not identified Regional Lymph Nodes Lymph Node Examination Number of Lymph Nodes Involved: __0__ Number of Lymph Nodes Examined: _17___ Pathologic Stage Classification (pTNM, AJCC 8th Edition) Primary Tumor (pT) _X__ pT3: Tumor invades through the muscularis propria into pericolorectal tissues Regional Lymph Nodes (pN) _X_ pN0: No regional lymph node metastasis Electronically Signed Holly Ortega M.D. Gross Description Received in formalin labeled "right hemicolectomy," is a 14 cm in length portion of terminal ileum with an attached 18 cm in length portion of cecum and right colon. The specimen displays 2 open mucosal margins and abundant attached pericolonic adipose tissue. There is a 4.5 cm in length unremarkable vermiform appendix attached at the cecum. The serosa is contreras-islas and smooth. The mucosa displays a 4.3 x 3.1 cm contreras-pink, sessile polypoid mass. The mass is 2.8 cm from the distal mucosal margin of resection. The mass is 3 cm from the mesenteric margin of resection. The mass invades through the muscularis and possibly into the pericolonic adipose tissue. The remaining mucosa is contreras with normal folds. Sectioning of the pericolonic adipose tissue reveals multiple possible lymph nodes ranging from 0.1-0.6 cm in greatest dimension. [place] Straightener Stamper sections are submitted in 18 cassettes as follows: 1-terminal ileum margin of resection; 2-distal mucosal margin of resection; 3-shave of mesenteric margin of resection; 4-appendix; 5-8-mass; 9-mucosa distal to mass; 10-uninvolved proximal right colon and cecum; 11-ileum; 12-one bisected possible lymph node; 74-64-ddomlmxl whole possible lymph nodes each.Additional sections are submitted as follows: 19-20-one bisected possible lymph node each; 05-61-zwszevoa possible lymph nodes each; 09-72-ftebdkvgjn pericolonic adipose tissue. 12/07/2017 [facility]12/07/2017
[2017-12-10] MEDS: CYANOCOBALAMIN (VITAMIN B-12) 1000 MCG/1 ML VIAL IM SCH (16:59)
[2017-12-10] MEDS: morphine SULFATE 4 MG/ML VIAL IVPB PRN (21:17)
--- NOTE | 2017-12-10 23:54 | PN ---
Progress Note (short form) - Note Progress Note: Patient seen and examined s/p colon resection AFVSS Cor: RSR, No murmurs, No gallops Lungs: Clear to P&A Abd: Soft, Normal bowel sounds, healing incisions Ext:2+ edema Meds reviewed A/P 72 y/o patient with myeloma, recentlly diagnosed Colon cancer --- s/p laparoscopic hemicolectomy Anemia/thrombocytopenia stable MMR proficient stage II T3, N0, moderately differentiated, stage II, invasive adenocarcinoma, NO LVI/PNI, negative margins CEA level 5.6 preop. Unlikely to benefit from adjuvant chemotherapy but will discuss pros/cons once he recovers post op. and follows with Dr. Gomez
[2017-12-11] MEDS: morphine SULFATE 4 MG/ML VIAL IVPB PRN ×4 (01:27→13:47)
[2017-12-11 08:14] LABS: BASO % 0.6 % (0-2.0); EOS % 1.4 % (0-4.5); HEMATOCRIT 25.7 % (35.4-49); HEMOGLOBIN 8.5 GM/dL (11.7-16.9); LYMPH % 17.5 % (8-40); MCH 30.9 pg (25.7-33.7); MCHC 33.2 g/dl (32.0-35.9); MEAN CELL VOLUME 93.1 fl (80-96); MEAN PLT VOLUME 7.9 fl (7.5-11.1); MONO % 9.2 % (3.8-10.2); NEUT % 71.3 % (42.8-82.8); PLATELET COUNT 122 K/MM3 (134-434); RBC 2.76 M/mm3 (4.00-5.60); RDW 19.9 % (11.9-15.9); WHITE BLOOD COUNT 5.7 K/mm3 (4.0-10.0)
[2017-12-11] MEDS ORDERED: PT OWN MED DRAWER 7, Y5N ONE ×2 (08:43→14:59)
[2017-12-11] MEDS: ALLOPURINOL 300 MG TABLET (FP) PO SCH (09:12)
[2017-12-11] MEDS: METOPROLOL TARTRATE 25 MG TABLET (FP) PO SCH (09:12)
[2017-12-11] MEDS: GABAPENTIN 400 MG CAPSULE (FP) PO SCH (09:13)
[2017-12-11] MEDS: APIXABAN 5 MG TABLET PO SCH (09:13)
[2017-12-11] MEDS: PANTOPRAZOLE SODIUM 40 MG VIAL IVPUSH SCH (09:13)
[2017-12-11] MEDS: BRIMONIDINE TARTRATE 0.2% OPHTHALMIC 5 ML BOTTLE OS SCH (09:14)
[2017-12-11] MEDS: TIMOLOL 0.5% OPHTHALMIC SOL 5 ML BOTTLE OS SCH (09:14)
[2017-12-11 12:40] LABS: ANISOCYTOSIS 1+; MACROCYTOSIS 0; PLATELET ESTIMATE DECREASED
[2017-12-11 14:44] VITALS: BP 114/66; PULSE 97; TEMP 100
--- NOTE | 2017-12-11 15:23 | DS ---
DATE OF ADMISSION: DATE OF DISCHARGE: 12/11/2017 ADMITTING DIAGNOSIS: Colon cancer. DISCHARGE DIAGNOSIS: Colon cancer. BRIEF HISTORY: This is a 72-year-old male who was admitted to [facility] on December 05 for surgical management of colon cancer. He underwent IV hydration and bowel preparation. On December 06, he underwent a laparoscopic right extended hemicolectomy; please reference Dr. Monty Ribeiro's operative report for further details. His pathology came back, confirming cancer and it was node-negative. He is being discharged home today, December 11, tolerating liquid diet. He is passing gas, he is voiding, he is ambulating. At the time of his discharge, his abdomen is soft and nontender. He has a slight rash to either his lucian or his Dermabond. He is treating that with a Benadryl cream and he is applying Vaseline to the lucian to help dissolve the glue. He will follow with me on Wednesday to be evaluated for staple removal, as earlier staple removal would risk skin dehiscence. He will resume his usual home medications of eyedrops; blood thinner, Eliquis; Neurontin; allopurinol; metoprolol; vitamin B12. He is okay to shower. He will not lift anything more than 20 pounds. He will likely require 4 weeks off from work. He will need oncology followup with Dr. Gomez, but likely does not require further chemotherapy. DO SAYRA JAFFE/[id number]
== END 2017-12-11 15:12 | disposition home or self-care (01) | DRG 330 ==
LOC: J7W 08:01 → EDSTATUS 12-06 10:00 → J6S 12-06 17:55
PROVIDERS: ADMIT Surgery; ATTEND Surgery
PROC: 0DNU4ZZ Release Omentum, Percutaneous Endoscopic Approach (ICD-10-PCS; 2017-12-06)
PROC: 0WQF4ZZ Repair Abdominal Wall, Percutaneous Endoscopic Approach (ICD-10-PCS; 2017-12-06)
PROC: 30233R1 Transfusion of Nonautologous Platelets into Peripheral Vein, Percutaneous Approach (ICD-10-PCS; 2017-12-06)
PROC: 0DTF4ZZ Resection of Right Large Intestine, Percutaneous Endoscopic Approach (ICD-10-PCS; principal; 2017-12-06 10:00)
DX: C18.9 Malignant neoplasm of colon, unspecified (principal); C90.01 Multiple myeloma in remission; G61.81 Chronic inflammatory demyelinating polyneuritis; J98.11 Atelectasis; K42.0 Umbilical hernia with obstruction, without gangrene; K42.9 Umbilical hernia without obstruction or gangrene; D69.6 Thrombocytopenia, unspecified; L24.9 Irritant contact dermatitis, unspecified cause; I48.91 Unspecified atrial fibrillation; I10 Essential (primary) hypertension; F32.9 Major depressive disorder, single episode, unspecified; M54.5 Low back pain; M19.90 Unspecified osteoarthritis, unspecified site; E11.42 Type 2 diabetes mellitus with diabetic polyneuropathy; H40.9 Unspecified glaucoma; E78.00 Pure hypercholesterolemia, unspecified; E61.1 Iron deficiency; E83.42 Hypomagnesemia; E83.39 Other disorders of phosphorus metabolism; K66.0 Peritoneal adhesions (postprocedural) (postinfection); D64.9 Anemia, unspecified; R50.9 Fever, unspecified; Z87.891 Personal history of nicotine dependence
CPT/HCPCS: 36415; 36430; 80048; 83735; 84100; 85025; 85027; 86850; 86900; 86901; 86922; 88309-TC; 94760; 97116-GP; 97161-GP; P9034

== ENCOUNTER 2018-01-03 07:35 | Day surgery (SDC) | payer OTHER ==
[2018-01-03] MEDS ORDERED: DIPHENHYDRAMINE 25 MG in SODIUM CHLORIDE 50 ML IVPB ONE (08:00)
[2018-01-03] MEDS ORDERED: ACETAMINOPHEN 325 MG TABLET (FP) PO ONE (08:00)
[2018-01-03] MEDS ORDERED: SODIUM CHLORIDE 250 ML IV ONE ×2 (08:00→12:00)
[2018-01-03] MEDS ORDERED: IMMUNE GLOB GAM CAPRYLATE IVPB ONE (08:30)
--- NOTE | 2018-01-03 10:01 | EKG ---
Test Reason : Blood Pressure : / mmHG Vent. Rate : 073 BPM Atrial Rate : 073 BPM P-R Int : 156 ms QRS Dur : 092 ms QT Int : 402 ms P-R-T Axes : 029 -11 026 degrees QTc Int : 442 ms SINUS RHYTHM WITH PREMATURE ATRIAL COMPLEXES OTHERWISE NORMAL ECG WHEN COMPARED WITH ECG OF 25-JUN-2017 11:26, VENT. RATE HAS DECREASED BY 42 BPM Confirmed by LAMAR MARINELLI MD ([id number]) on 01/03/2018 10:01:01 AM Referred By: Confirmed By:LAMAR MARINELLI MD
[2018-01-03 10:50] LABS: BASO % 1.1 % (0-2.0); HEMATOCRIT 35.1 % (35.4-49); LYMPH % 19.2 % (8-40); MCH 30.7 pg (25.7-33.7); MCHC 31.3 g/dl (32.0-35.9); MEAN CELL VOLUME 98.2 fl (80-96); MEAN PLT VOLUME 8.4 fl (7.5-11.1); MONO % 9.4 % (3.8-10.2); NEUT % 69.3 % (42.8-82.8); PLATELET COUNT 189 K/MM3 (134-434); RBC 3.57 M/mm3 (4.00-5.60); RDW 20.4 % (11.9-15.9); WHITE BLOOD COUNT 6.9 K/mm3 (4.0-10.0)
[2018-01-03] MEDS ORDERED: SODIUM CHLORIDE 1,000 ML IV SCH (11:15)
[2018-01-03 11:20] LABS: CHLORIDE 109 mmol/L (98-107); POTASSIUM 3.8 mmol/L (3.5-5.1); SODIUM 145 mmol/L (136-145)
[2018-01-03 11:28] LABS: GLUCOSE,RANDOM 129 mg/dL (74-106)
[2018-01-03 11:29] LABS: ALBUMIN 3.5 g/dl (3.4-5.0); ALK PHOS 85 U/L (45-117); ANION GAP 15 MMOL/L (8-16); BLOOD UREA NITROGEN 16 mg/dL (7-18); CALCIUM 8.8 mg/dL (8.5-10.1); CO2 21 mmol/L (21-32); CREATININE 1.7 mg/dL (0.55-1.3); SGOT/AST 29 U/L (15-37); SGPT/ALT 20 U/L (13-61); TOT PROT 6.5 g/dl (6.4-8.2)
[2018-01-03 11:45] LABS: URIC ACID 5.3 mg/dL (2.6-7.2)
[2018-01-03 15:52] LABS: ALBUMIN 3.5 g/dl (3.4-5.0); BILIRUBIN,DIRECT 0.3 mg/dL (0.0-0.2); MAGNESIUM 1.9 mg/dL (1.8-2.4); TOT PROT 6.6 g/dl (6.4-8.2)
[2018-01-03 18:45] VITALS: TEMP 98.2
[2018-01-03 18:50] VITALS: BP 64/62; PULSE 66
[2018-01-04 08:07] LABS: IGA IMMUNOGLOBULIN 128 mg/dL (61-437); IGG IMMUNOGLOBULIN 594 mg/dL (700-1600)
[2018-01-04 14:17] LABS: IGM IMMUNOGLOBULIN 41 mg/dL (15-143)
[2018-01-05 08:07] LABS: KAPPA LAMBDA RATIO URIN 54.23 (2.04-10.37)
[2018-01-05 16:35] LABS: TOTAL PROTEIN, URINE 109.7 mg/dL (Not Estab.)
== END 2018-01-03 18:45 | disposition home or self-care (01) ==
LOC: JONCCHEMO 07:35 → J7W 09:35 → JONCCHEMO 18:45
PROVIDERS: ATTEND Internal Medicine Hematology & Oncology
PROC: 3E033GC Introduction of Other Therapeutic Substance into Peripheral Vein, Percutaneous Approach (ICD-10-PCS; principal; 2018-01-03)
PROC: 3E033GC Introduction of Other Therapeutic Substance into Peripheral Vein, Percutaneous Approach (ICD-10-PCS; 2018-01-03)
DX: D80.1 Nonfamilial hypogammaglobulinemia (principal); C90.00 Multiple myeloma not having achieved remission; C18.9 Malignant neoplasm of colon, unspecified; D69.6 Thrombocytopenia, unspecified
CPT/HCPCS: 36415; 80053; 80076; 82378; 82728; 82784; 82962; 83540; 83615; 83735; 83883; 84155; 84156; 84157; 84165; 84439; 84443; 84550; 85025; 85651; 93005; 93010; 96361; 96365; 96366; 96415; 96417; J1561; J7030

== ENCOUNTER 2018-01-04 07:34 | Day surgery (SDC) | payer OTHER ==
[2018-01-04] MEDS ORDERED: SODIUM CHLORIDE 250 ML IV ONE ×2 (09:00→12:31)
[2018-01-04] MEDS ORDERED: DIPHENHYDRAMINE 25 MG in SODIUM CHLORIDE 50 ML IVPB ONE (09:00)
[2018-01-04] MEDS ORDERED: ACETAMINOPHEN 325 MG TABLET (FP) PO ONE (09:00)
[2018-01-04] MEDS ORDERED: IMMUNE GLOB GAM CAPRYLATE IVPB ONE (09:30)
--- NOTE | 2018-01-04 13:10 | HP ---
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 Neuropathy Cardiovascular: Yes: AFIB, HTN Gastrointestinal: Yes: Other (newly diagnosed colon ca) Heme/Onc: Yes: Cancer Psych: Yes: Depression Musculoskeletal: Yes: Chronic low back pain, Osteoarthritis Endocrine: Yes: Diabetes Mellitus - Smoking History Smoking history: Former smoker Have you smoked in the past 12 months: No If you are a former smoker, when did you quit?: 1975 - Alcohol/Substance Use Hx Alcohol Use: No History of Substance Use: reports: None - Social History ADL: Independent History of Recent Travel: No Home Medications - Allergies Allergies/Adverse Reactions: Allergies Allergy/AdvReac Type Severity Reaction Status Date / Time No Known Allergies Allergy Verified 04/08/17 11:08 - Home Medications Home Medications: Ambulatory Orders Gabapentin 300 mg PEG BID 10/04/16 Apixaban [Eliquis -] 5 mg PO BID tablet 05/03/17 Insulin Sliding Scale [Novolog Vial Sliding Scale -] 1 vial SQ ASDIR 06/24/17 Allopurinol 300 mg PO DAILY 10/21/17 Aspirin/Dipyridamole [Aggrenox -] 1 combo PO DAILY 10/21/17 Atorvastatin Ca [Lipitor] 40 mg PO HS 10/21/17 Bortezomib [Velcade -] 3.5 mg IVPUSH ASDIR 10/21/17 Cyanocobalamin (Vitamin B-12) [Vitamin B12] 2,500 mcg PO DAILY 10/21/17 Dexamethasone 4 mg PO WEEKLY 10/21/17 Ivig 1 gm IV ASDIR 10/21/17 Oxycodone HCl [Oxycontin] 10 mg PO DAILY 10/21/17 Pantoprazole Sodium [Protonix] 40 mg PO DAILY 10/21/17 Family Disease History - Family Disease History Family Disease History: Other: Father (: 68: lung Ca), Mother (: 60's: leukemia ), Brother (1, : 65: colon cancer), Son (1, healthy), Daughter (1 with SLE) Review of Systems - Review of Systems Constitutional: denies: Fever, Loss of Appetite Eyes: reports: Blurred Vision, Eye Pain, Recent Change in Vision. denies: Blind Spots HENT: denies: Difficult Swallowing, Epistaxis Neck: denies: Stiffness Cardiovascular: denies: Chest Pain Respiratory: reports: SOB, SOB on Exertion Gastrointestinal: denies: Abdominal Pain Genitourinary: denies: Burning, Dysuria, Flank Pain Musculoskeletal: reports: Muscle Weakness. denies: Back Pain, Extremity Pain Neurological: reports: Weakness, Other (neuropathy) Endocrine: denies: Unexplained Weight Loss Hematology/Lymphatic: denies: Easily Bruised, Excessive Bleeding, Swollen Glands Psychiatric: reports: No Symptoms Physical Examination Constitutional: Yes: Mild Distress Eyes: Yes: Other (anisocoria) HENT: No: Hoarseness, Tonsillar Exudate Neck: No: Tenderness, Thyromegaly Cardiovascular: Yes: Regular Rate and Rhythm, Murmur Respiratory: Yes: Regular, CTA Bilaterally Gastrointestinal: Yes: Normal Bowel Sounds ...Motor Strength: WNL Psychiatric: Yes: WNL Problem List - Problems (1) Colon cancer Code(s): C18.9 - MALIGNANT NEOPLASM OF COLON, UNSPECIFIED (2) CIDP (chronic inflammatory demyelinating polyneuropathy) Assessment/Plan: Receiving gamma globulin day-2. Code(s): G61.81 - CHRONIC INFLAMMATORY DEMYELINATING POLYNEURITIS
[2018-01-04 16:19] VITALS: TEMP 97.6
[2018-01-04 16:23] VITALS: BP 99/63; PULSE 86
== END 2018-01-04 16:24 | disposition home or self-care (01) ==
LOC: JONCCHEMO 07:34 → J7W 08:29 → JONCCHEMO 16:24
PROVIDERS: ATTEND Internal Medicine Hematology & Oncology
PROC: 3E033GC Introduction of Other Therapeutic Substance into Peripheral Vein, Percutaneous Approach (ICD-10-PCS; principal; 2018-01-04)
PROC: 3E033GC Introduction of Other Therapeutic Substance into Peripheral Vein, Percutaneous Approach (ICD-10-PCS; 2018-01-04)
DX: D80.1 Nonfamilial hypogammaglobulinemia (principal); C90.00 Multiple myeloma not having achieved remission; C18.9 Malignant neoplasm of colon, unspecified; D69.6 Thrombocytopenia, unspecified
CPT/HCPCS: 96361; 96365; 96366; 96375; 96415; 96417; J1561

== ENCOUNTER 2018-01-17 07:27 | Day surgery (SDC) | payer OTHER ==
[2018-01-17 09:33] LABS: EOS % 1.1 % (0-4.5); HEMATOCRIT 37.2 % (35.4-49); HEMOGLOBIN 11.8 GM/dL (11.7-16.9); LYMPH % 31.2 % (8-40); MCH 30.5 pg (25.7-33.7); MCHC 31.6 g/dl (32.0-35.9); MEAN CELL VOLUME 96.5 fl (80-96); MEAN PLT VOLUME 8.5 fl (7.5-11.1); MONO % 10.6 % (3.8-10.2); NEUT % 56.1 % (42.8-82.8); PLATELET COUNT 137 K/MM3 (134-434); RBC 3.86 M/mm3 (4.00-5.60); RDW 19.5 % (11.9-15.9)
[2018-01-17 09:56] LABS: ALBUMIN 3.5 g/dl (3.4-5.0); BILIRUBIN,DIRECT 0.2 mg/dL (0.0-0.2); BILIRUBIN,TOTAL 0.6 mg/dL (0.2-1); TOT PROT 7.9 g/dl (6.4-8.2)
[2018-01-17 09:59] LABS: ALBUMIN 3.5 g/dl (3.4-5.0); ALK PHOS 78 U/L (45-117); ANION GAP 12 MMOL/L (8-16); BILIRUBIN,TOTAL 0.6 mg/dL (0.2-1); BLOOD UREA NITROGEN 11 mg/dL (7-18); CHLORIDE 104 mmol/L (98-107); CO2 24 mmol/L (21-32); CREATININE 1.6 mg/dL (0.55-1.3); GLUCOSE,RANDOM 124 mg/dL (74-106); POTASSIUM 3.4 mmol/L (3.5-5.1); SGOT/AST 38 U/L (15-37); SGPT/ALT 29 U/L (13-61); SODIUM 139 mmol/L (136-145); TOT PROT 7.8 g/dl (6.4-8.2)
[2018-01-17] MEDS ORDERED: BORTEZOMIB (VELCADE) 2.5 MG/ML SUB-Q INJECTION SQ ONE (10:00)
[2018-01-17] MEDS: SODIUM CHLORIDE 500 ML IV SCH ×2 (10:21→13:18)
[2018-01-17 12:04] VITALS: TEMP 97.5
[2018-01-17 13:18] VITALS: BP 104/64; PULSE 56
== END 2018-01-17 12:35 | disposition home or self-care (01) ==
LOC: JONCCHEMO 07:27 → J7W 10:00 → JONCCHEMO 12:35
PROVIDERS: ATTEND Internal Medicine Hematology & Oncology
DX: Z51.11 Encounter for antineoplastic chemotherapy (principal); D80.1 Nonfamilial hypogammaglobulinemia; C90.00 Multiple myeloma not having achieved remission; C18.9 Malignant neoplasm of colon, unspecified; D69.6 Thrombocytopenia, unspecified
CPT/HCPCS: 36415; 80053; 80076; 83036; 83735; 84439; 84443; 85025; 96360; 96361; 96401; J9041

== ENCOUNTER 2018-01-31 07:31 | Day surgery (SDC) | payer OTHER ==
[2018-01-31] MEDS ORDERED: BORTEZOMIB (VELCADE) 2.5 MG/ML SUB-Q INJECTION SQ ONE (09:00)
[2018-01-31 09:18] LABS: BASO % 0.6 % (0-2.0); EOS % 1.9 % (0-4.5); HEMATOCRIT 31.4 % (35.4-49); HEMOGLOBIN 10.2 GM/dL (11.7-16.9); LYMPH % 7.5 % (8-40); MCH 31.6 pg (25.7-33.7); MCHC 32.5 g/dl (32.0-35.9); MEAN CELL VOLUME 97.1 fl (80-96); MEAN PLT VOLUME 9.2 fl (7.5-11.1); MONO % 4.2 % (3.8-10.2); NEUT % 85.8 % (42.8-82.8); PLATELET COUNT 97 K/MM3 (134-434); RBC 3.24 M/mm3 (4.00-5.60); RDW 17.9 % (11.9-15.9); WHITE BLOOD COUNT 7.5 K/mm3 (4.0-10.0)
[2018-01-31 10:28] LABS: ALBUMIN 3.1 g/dl (3.4-5.0); ALK PHOS 85 U/L (45-117); ANION GAP 9 MMOL/L (8-16); BILIRUBIN,TOTAL 0.3 mg/dL (0.2-1); BLOOD UREA NITROGEN 18 mg/dL (7-18); CALCIUM 8.8 mg/dL (8.5-10.1); CHLORIDE 110 mmol/L (98-107); CO2 24 mmol/L (21-32); CREATININE 1.3 mg/dL (0.55-1.3); GLUCOSE,RANDOM 122 mg/dL (74-106); POTASSIUM 4.2 mmol/L (3.5-5.1); SGOT/AST 35 U/L (15-37); SGPT/ALT 25 U/L (13-61); SODIUM 143 mmol/L (136-145); TOT PROT 6.7 g/dl (6.4-8.2)
[2018-01-31 10:58] LABS: ALBUMIN 3.1 g/dl (3.4-5.0); BILIRUBIN,DIRECT 0.1 mg/dL (0.0-0.2); BILIRUBIN,TOTAL 0.3 mg/dL (0.2-1); MAGNESIUM 1.9 mg/dL (1.8-2.4); TOT PROT 6.6 g/dl (6.4-8.2)
[2018-01-31 12:08] VITALS: BP 135/56; PULSE 66; TEMP 98
== END 2018-01-31 10:45 | disposition home or self-care (01) ==
LOC: JONCCHEMO 07:31 → J7W 09:42 → JONCCHEMO 10:45
PROVIDERS: ATTEND Internal Medicine Hematology & Oncology
DX: Z51.11 Encounter for antineoplastic chemotherapy (principal); D80.1 Nonfamilial hypogammaglobulinemia; C90.00 Multiple myeloma not having achieved remission; C18.9 Malignant neoplasm of colon, unspecified; D69.6 Thrombocytopenia, unspecified
CPT/HCPCS: 36415; 80053; 80076; 83735; 85025; 96401; J9041

== ENCOUNTER 2018-02-14 07:28 | Day surgery (SDC) | payer OTHER ==
[2018-02-14] MEDS ORDERED: BORTEZOMIB (VELCADE) 2.5 MG/ML SUB-Q INJECTION SQ ONE (08:00)
[2018-02-14 09:34] LABS: BASO % 0.2 % (0-2.0); EOS % 1.1 % (0-4.5); LYMPH % 5.7 % (8-40); MCH 30.7 pg (25.7-33.7); MCHC 31.1 g/dl (32.0-35.9); MEAN CELL VOLUME 98.7 fl (80-96); MEAN PLT VOLUME 9.8 fl (7.5-11.1); MONO % 2.7 % (3.8-10.2); NEUT % 90.3 % (42.8-82.8); PLATELET COUNT 91 K/MM3 (134-434); RBC 2.94 M/mm3 (4.00-5.60); RDW 18.4 % (11.9-15.9); WHITE BLOOD COUNT 7.6 K/mm3 (4.0-10.0)
[2018-02-14 10:58] LABS: ALBUMIN 3.1 g/dl (3.4-5.0); ALK PHOS 117 U/L (45-117); ANION GAP 6 MMOL/L (8-16); BILIRUBIN,DIRECT 0.2 mg/dL (0.0-0.2); BILIRUBIN,TOTAL 0.4 mg/dL (0.2-1); BLOOD UREA NITROGEN 17 mg/dL (7-18); CALCIUM 8.4 mg/dL (8.5-10.1); CHLORIDE 111 mmol/L (98-107); CO2 25 mmol/L (21-32); CREATININE 1.1 mg/dL (0.55-1.3); GLUCOSE,RANDOM 158 mg/dL (74-106); MAGNESIUM 2.3 mg/dL (1.8-2.4); POTASSIUM 4.5 mmol/L (3.5-5.1); SGOT/AST 75 U/L (15-37); SGPT/ALT 64 U/L (13-61); SODIUM 142 mmol/L (136-145); TOT PROT 6.1 g/dl (6.4-8.2)
[2018-02-14 11:07] VITALS: BP 134/53; PULSE 71; TEMP 97.5
== END 2018-02-14 11:14 | disposition home or self-care (01) ==
LOC: JONCCHEMO 07:28 → J7W 10:13 → JONCCHEMO 11:14
PROVIDERS: ATTEND Internal Medicine Hematology & Oncology
PROC: 3E00X05 Introduction of Other Antineoplastic into Skin and Mucous Membranes, External Approach (ICD-10-PCS; principal; 2018-02-14)
DX: Z51.11 Encounter for antineoplastic chemotherapy (principal); C90.01 Multiple myeloma in remission; I10 Essential (primary) hypertension; E78.00 Pure hypercholesterolemia, unspecified; G62.9 Polyneuropathy, unspecified; Z86.73 Personal history of transient ischemic attack (TIA), and cerebral infarction without residual deficits
CPT/HCPCS: 36415; 80053; 80076; 83735; 85025; 96401; J9041

== ENCOUNTER 2018-02-28 07:29 | Day surgery (SDC) | payer OTHER ==
[2018-02-28] MEDS ORDERED: SODIUM CHLORIDE 250 ML IV ONE ×2 (08:00→13:00)
[2018-02-28] MEDS ORDERED: DIPHENHYDRAMINE 25 MG in SODIUM CHLORIDE 50 ML IVPB ONE (08:00)
[2018-02-28] MEDS ORDERED: BORTEZOMIB (VELCADE) 2.5 MG/ML SUB-Q INJECTION SQ ONE (08:00)
[2018-02-28] MEDS ORDERED: ACETAMINOPHEN 325 MG TABLET (FP) PO ONE (08:00)
[2018-02-28] MEDS ORDERED: [UNRECOGNIZED DRUG - OTHER] IVPB ONE (08:30)
[2018-02-28] MEDS ORDERED: IMMUNE GLOBULIN IVPB ONE (08:30)
[2018-02-28 09:10] VITALS: TEMP 97.6
[2018-02-28 10:07] LABS: BASO % 0.2 % (0-2.0); EOS % 0.3 % (0-4.5); LYMPH % 6.4 % (8-40); MCH 31.5 pg (25.7-33.7); MCHC 32.4 g/dl (32.0-35.9); MEAN CELL VOLUME 97.3 fl (80-96); MEAN PLT VOLUME 9.8 fl (7.5-11.1); NEUT % 90.1 % (42.8-82.8); PLATELET COUNT 122 K/MM3 (134-434); RBC 3.18 M/mm3 (4.00-5.60); RDW 18.3 % (11.9-15.9); WHITE BLOOD COUNT 8.4 K/mm3 (4.0-10.0)
[2018-02-28 10:29] LABS: INR 0.82 (0.83-1.09); PROTHROMBIN TIME (PATIENT) 9.6 SEC (9.7-13.0)
[2018-02-28 10:30] LABS: ALBUMIN 3.6 g/dl (3.4-5.0); ALK PHOS 109 U/L (45-117); ANION GAP 9 MMOL/L (8-16); BILIRUBIN,DIRECT 0.1 mg/dL (0.0-0.2); BILIRUBIN,TOTAL 0.5 mg/dL (0.2-1); BLOOD UREA NITROGEN 24 mg/dL (7-18); CALCIUM 8.2 mg/dL (8.5-10.1); CHLORIDE 108 mmol/L (98-107); CO2 23 mmol/L (21-32); CREATININE 1.1 mg/dL (0.55-1.3); GLUCOSE,RANDOM 184 mg/dL (74-106); MAGNESIUM 2.3 mg/dL (1.8-2.4); POTASSIUM 4.7 mmol/L (3.5-5.1); SGOT/AST 28 U/L (15-37); SGPT/ALT 41 U/L (13-61); SODIUM 140 mmol/L (136-145); TOT PROT 6.7 g/dl (6.4-8.2)
[2018-02-28 10:31] LABS: ACTIVATED PTT 25.8 SECONDS (25.2-36.5)
[2018-02-28 12:52] LABS: ANISOCYTOSIS 2+; MACROCYTOSIS 0; OVALOCYTE 2+; PLATELET ESTIMATE DECREASED; TEAR DROP CELLS 2+
[2018-02-28 15:27] VITALS: BP 101/56; PULSE 81
== END 2018-02-28 14:25 | disposition home or self-care (01) ==
LOC: JONCCHEMO 07:29 → J7W 09:47 → JONCCHEMO 14:25
PROVIDERS: ATTEND Internal Medicine Hematology & Oncology
PROC: 3E01305 Introduction of Other Antineoplastic into Subcutaneous Tissue, Percutaneous Approach (ICD-10-PCS; principal; 2018-02-28)
PROC: 3E033GC Introduction of Other Therapeutic Substance into Peripheral Vein, Percutaneous Approach (ICD-10-PCS; 2018-02-28)
PROC: 3E033GC Introduction of Other Therapeutic Substance into Peripheral Vein, Percutaneous Approach (ICD-10-PCS; 2018-02-28)
DX: Z51.11 Encounter for antineoplastic chemotherapy (principal); C90.00 Multiple myeloma not having achieved remission; C18.9 Malignant neoplasm of colon, unspecified; D80.1 Nonfamilial hypogammaglobulinemia
CPT/HCPCS: 36415; 80053; 80076; 83735; 85025; 85240; 85246; 85247; 85610; 85730; 96361; 96365; 96366; 96375; 96401; 96415; 96417; J1561; J9041

== ENCOUNTER 2018-03-01 07:36 | Day surgery (SDC) | payer OTHER ==
[2018-03-01] MEDS ORDERED: SODIUM CHLORIDE 250 ML IV ONE (09:00)
[2018-03-01] MEDS ORDERED: ACETAMINOPHEN 325 MG TABLET (FP) PO ONE (09:00)
[2018-03-01] MEDS ORDERED: DIPHENHYDRAMINE 25 MG in SODIUM CHLORIDE 50 ML IVPB ONE (09:00)
[2018-03-01] MEDS ORDERED: IMMUNE GLOBULIN IVPB ONE (09:30)
[2018-03-01] MEDS ORDERED: [UNRECOGNIZED DRUG - OTHER] IVPB ONE (09:30)
[2018-03-01 11:06] VITALS: TEMP 97.4
[2018-03-01] MEDS: SODIUM CHLORIDE 250 ML IV ONE ×2 (12:55→14:22)
[2018-03-01 15:03] VITALS: BP 111/71; PULSE 69
== END 2018-03-01 13:40 | disposition home or self-care (01) ==
LOC: JONCCHEMO 07:36 → J7W 08:46 → JONCCHEMO 13:40
PROVIDERS: ATTEND Internal Medicine Hematology & Oncology
PROC: 3E033GC Introduction of Other Therapeutic Substance into Peripheral Vein, Percutaneous Approach (ICD-10-PCS; principal; 2018-03-01)
PROC: 3E033GC Introduction of Other Therapeutic Substance into Peripheral Vein, Percutaneous Approach (ICD-10-PCS; 2018-03-01)
DX: C90.00 Multiple myeloma not having achieved remission (principal); D80.1 Nonfamilial hypogammaglobulinemia; C18.9 Malignant neoplasm of colon, unspecified
CPT/HCPCS: 96361; 96365; 96366; 96375; 96415; 96417; J1561

== ENCOUNTER 2018-03-14 07:27 | Day surgery (SDC) | payer OTHER ==
[2018-03-14] MEDS ORDERED: BORTEZOMIB (VELCADE) 2.5 MG/ML SUB-Q INJECTION SQ ONE (10:00)
[2018-03-14 10:07] LABS: BASO % 0.5 % (0-2.0); EOS % 0.2 % (0-4.5); HEMATOCRIT 30.2 % (35.4-49); HEMOGLOBIN 9.4 GM/dL (11.7-16.9); LYMPH % 8.8 % (8-40); MCH 29.7 pg (25.7-33.7); MCHC 31.1 g/dl (32.0-35.9); MEAN CELL VOLUME 95.7 fl (80-96); MEAN PLT VOLUME 8.3 fl (7.5-11.1); MONO % 2.2 % (3.8-10.2); NEUT % 88.3 % (42.8-82.8); PLATELET COUNT 83 K/MM3 (134-434); RBC 3.16 M/mm3 (4.00-5.60); WHITE BLOOD COUNT 7.4 K/mm3 (4.0-10.0)
[2018-03-14 10:55] LABS: ALBUMIN 3.2 g/dl (3.4-5.0); ALK PHOS 99 U/L (45-117); ANION GAP 12 MMOL/L (8-16); BILIRUBIN,DIRECT 0.1 mg/dL (0.0-0.2); BILIRUBIN,TOTAL 0.5 mg/dL (0.2-1); BLOOD UREA NITROGEN 19 mg/dL (7-18); CALCIUM 8.3 mg/dL (8.5-10.1); CHLORIDE 105 mmol/L (98-107); CO2 21 mmol/L (21-32); CREATININE 1.3 mg/dL (0.55-1.3); GLUCOSE,RANDOM 188 mg/dL (74-106); POTASSIUM 4.7 mmol/L (3.5-5.1); SGOT/AST 30 U/L (15-37); SGPT/ALT 46 U/L (13-61); SODIUM 137 mmol/L (136-145); TOT PROT 7.3 g/dl (6.4-8.2); URIC ACID 3.4 mg/dL (2.6-7.2)
[2018-03-14 17:21] VITALS: BP 111/60; PULSE 82; TEMP 98.5
[2018-03-15 06:06] LABS: IGA IMMUNOGLOBULIN 50 mg/dL (61-437); IGG IMMUNOGLOBULIN 1492 mg/dL (700-1600); IGM IMMUNOGLOBULIN 30 mg/dL (15-143)
== END 2018-03-14 11:10 | disposition home or self-care (01) ==
LOC: JONCCHEMO 07:27 → J7W 09:53 → JONCCHEMO 11:10
PROVIDERS: ATTEND Internal Medicine Hematology & Oncology
DX: Z51.11 Encounter for antineoplastic chemotherapy (principal); C90.00 Multiple myeloma not having achieved remission; C18.9 Malignant neoplasm of colon, unspecified; D80.1 Nonfamilial hypogammaglobulinemia
CPT/HCPCS: 36415; 80053; 80076; 82784; 83735; 84550; 85025; 96401; J9041

== ENCOUNTER 2018-03-28 07:25 | Day surgery (SDC) | payer OTHER ==
[2018-03-28 09:18] LABS: BASO % 0.3 % (0-2.0); EOS % 0.2 % (0-4.5); HEMATOCRIT 29.1 % (35.4-49); HEMOGLOBIN 9.7 GM/dL (11.7-16.9); LYMPH % 8.3 % (8-40); MCHC 33.4 g/dl (32.0-35.9); MEAN CELL VOLUME 95.7 fl (80-96); MEAN PLT VOLUME 8.6 fl (7.5-11.1); MONO % 1.7 % (3.8-10.2); NEUT % 89.5 % (42.8-82.8); PLATELET COUNT 94 K/MM3 (134-434); RBC 3.04 M/mm3 (4.00-5.60); WHITE BLOOD COUNT 7.5 K/mm3 (4.0-10.0)
[2018-03-28 09:49] LABS: ALBUMIN 3.2 g/dl (3.4-5.0); ALK PHOS 118 U/L (45-117); ANION GAP 9 MMOL/L (8-16); BILIRUBIN,TOTAL 0.6 mg/dL (0.2-1); BLOOD UREA NITROGEN 19 mg/dL (7-18); CALCIUM 8.2 mg/dL (8.5-10.1); CHLORIDE 108 mmol/L (98-107); CO2 22 mmol/L (21-32); CREATININE 1.3 mg/dL (0.55-1.3); GLUCOSE,RANDOM 219 mg/dL (74-106); POTASSIUM 4.8 mmol/L (3.5-5.1); SGOT/AST 62 U/L (15-37); SGPT/ALT 52 U/L (13-61); SODIUM 140 mmol/L (136-145); TOT PROT 6.8 g/dl (6.4-8.2)
[2018-03-28 09:55] LABS: ALBUMIN 3.1 g/dl (3.4-5.0); BILIRUBIN,DIRECT 0.2 mg/dL (0.0-0.2); BILIRUBIN,TOTAL 0.6 mg/dL (0.2-1); MAGNESIUM 2.1 mg/dL (1.8-2.4); TOT PROT 6.8 g/dl (6.4-8.2)
[2018-03-28] MEDS ORDERED: BORTEZOMIB (VELCADE) 2.5 MG/ML SUB-Q INJECTION SQ ONE (10:00)
[2018-03-28 16:03] VITALS: BP 103/60; PULSE 84; TEMP 98.3
== END 2018-03-28 10:35 | disposition home or self-care (01) ==
LOC: JONCCHEMO 07:25 → J7W 09:19 → JONCCHEMO 10:35
PROVIDERS: ATTEND Internal Medicine Hematology & Oncology
DX: Z51.11 Encounter for antineoplastic chemotherapy (principal); C90.00 Multiple myeloma not having achieved remission; C18.9 Malignant neoplasm of colon, unspecified; D80.1 Nonfamilial hypogammaglobulinemia
CPT/HCPCS: 36415; 80053; 80076; 83735; 85025; 96401; J9041

== ENCOUNTER 2018-04-04 07:01 | Day surgery (SDC) | payer OTHER ==
[2018-04-04] MEDS ORDERED: BORTEZOMIB (VELCADE) 2.5 MG/ML SUB-Q INJECTION SQ ONE (10:00)
[2018-04-04 10:46] LABS: BASO % 0.7 % (0-2.0); EOS % 0.6 % (0-4.5); HEMATOCRIT 30.6 % (35.4-49); HEMOGLOBIN 10.1 GM/dL (11.7-16.9); LYMPH % 7.6 % (8-40); MCH 31.9 pg (25.7-33.7); MCHC 32.9 g/dl (32.0-35.9); MEAN CELL VOLUME 96.9 fl (80-96); MEAN PLT VOLUME 9.9 fl (7.5-11.1); MONO % 0.9 % (3.8-10.2); NEUT % 90.2 % (42.8-82.8); PLATELET COUNT 98 K/MM3 (134-434); RBC 3.15 M/mm3 (4.00-5.60); RDW 19.3 % (11.9-15.9); WHITE BLOOD COUNT 6.9 K/mm3 (4.0-10.0)
[2018-04-04 11:11] LABS: ALBUMIN 3.2 g/dl (3.4-5.0); BILIRUBIN,DIRECT 0.1 mg/dL (0.0-0.2); BILIRUBIN,TOTAL 0.5 mg/dL (0.2-1); MAGNESIUM 2.1 mg/dL (1.8-2.4); TOT PROT 6.6 g/dl (6.4-8.2); URIC ACID 3.7 mg/dL (2.6-7.2)
[2018-04-04 11:12] LABS: ALBUMIN 3.3 g/dl (3.4-5.0); ALK PHOS 109 U/L (45-117); ANION GAP 10 MMOL/L (8-16); BILIRUBIN,TOTAL 0.6 mg/dL (0.2-1); BLOOD UREA NITROGEN 23 mg/dL (7-18); CALCIUM 8.4 mg/dL (8.5-10.1); CHLORIDE 107 mmol/L (98-107); CO2 21 mmol/L (21-32); CREATININE 1.5 mg/dL (0.55-1.3); POTASSIUM 5.2 mmol/L (3.5-5.1); SGOT/AST 43 U/L (15-37); SGPT/ALT 48 U/L (13-61); SODIUM 138 mmol/L (136-145); TOT PROT 6.7 g/dl (6.4-8.2)
[2018-04-04 11:14] LABS: GLUCOSE,RANDOM 308 mg/dL (74-106)
[2018-04-04] MEDS ORDERED: INSULIN (NOVOLOG) ASPART 100 UNITS/ML 10ML VIAL SQ ONE (11:35)
[2018-04-04 12:39] LABS: ANISOCYTOSIS 1+; MACROCYTOSIS 1+; PLATELET ESTIMATE DECREASED; TEAR DROP CELLS 1+
[2018-04-04 13:40] VITALS: BP 126/71; PULSE 88; TEMP 97.4
== END 2018-04-04 12:10 | disposition home or self-care (01) ==
LOC: JONCCHEMO 07:01 → J7W 10:48 → JONCCHEMO 12:10
PROVIDERS: ATTEND Internal Medicine Hematology & Oncology
PROC: 3E013GC Introduction of Other Therapeutic Substance into Subcutaneous Tissue, Percutaneous Approach (ICD-10-PCS; principal; 2018-04-04)
PROC: 3E013VG Introduction of Insulin into Subcutaneous Tissue, Percutaneous Approach (ICD-10-PCS; 2018-04-04)
DX: C90.01 Multiple myeloma in remission (principal); I10 Essential (primary) hypertension; E78.00 Pure hypercholesterolemia, unspecified
CPT/HCPCS: 36415; 80053; 80076; 83615; 83735; 84550; 85025; 96372; 96401; J9041

== ENCOUNTER 2018-04-25 06:16 | Day surgery (SDC) | payer OTHER ==
[2018-04-25] MEDS ORDERED: BORTEZOMIB (VELCADE) 2.5 MG/ML SUB-Q INJECTION SQ ONE (08:00)
[2018-04-25] MEDS ORDERED: SODIUM CHLORIDE 250 ML IV ONE ×2 (08:30→12:00)
[2018-04-25] MEDS ORDERED: DIPHENHYDRAMINE 25 MG in SODIUM CHLORIDE 50 ML IVPB ONE (08:30)
[2018-04-25] MEDS ORDERED: ACETAMINOPHEN 325 MG TABLET (FP) PO ONE (08:30)
[2018-04-25] MEDS ORDERED: [UNRECOGNIZED DRUG - OTHER] IVPB ONE (09:00)
[2018-04-25] MEDS ORDERED: IMMUNE GLOBULIN IVPB ONE (09:00)
[2018-04-25 09:28] LABS: BASO % 0.2 % (0-2.0); EOS % 0.1 % (0-4.5); HEMATOCRIT 28.8 % (35.4-49); HEMOGLOBIN 9.5 GM/dL (11.7-16.9); LYMPH % 6.4 % (8-40); MCH 31.9 pg (25.7-33.7); MCHC 32.9 g/dl (32.0-35.9); MEAN PLT VOLUME 8.4 fl (7.5-11.1); MONO % 0.6 % (3.8-10.2); NEUT % 92.7 % (42.8-82.8); PLATELET COUNT 118 K/MM3 (134-434); RBC 2.97 M/mm3 (4.00-5.60); RDW 19.2 % (11.9-15.9); WHITE BLOOD COUNT 8.5 K/mm3 (4.0-10.0)
[2018-04-25 09:47] LABS: ALBUMIN 3.4 g/dl (3.4-5.0); ALK PHOS 113 U/L (45-117); ANION GAP 10 MMOL/L (8-16); BILIRUBIN,DIRECT 0.2 mg/dL (0.0-0.2); BILIRUBIN,TOTAL 0.7 mg/dL (0.2-1); BLOOD UREA NITROGEN 27 mg/dL (7-18); CALCIUM 8.8 mg/dL (8.5-10.1); CHLORIDE 106 mmol/L (98-107); CO2 24 mmol/L (21-32); CREATININE 1.5 mg/dL (0.55-1.3); GLUCOSE,RANDOM 263 mg/dL (74-106); MAGNESIUM 2.2 mg/dL (1.8-2.4); POTASSIUM 4.8 mmol/L (3.5-5.1); SGOT/AST 50 U/L (15-37); SGPT/ALT 60 U/L (13-61); SODIUM 139 mmol/L (136-145); TOT PROT 6.6 g/dl (6.4-8.2); URIC ACID 4.9 mg/dL (2.6-7.2)
[2018-04-25 10:01] LABS: LDH 361 U/L (87-246)
[2018-04-25] MEDS ORDERED: Insulin (LOG) Aspart 100 UNITS/ML VIAL SQ ONE (11:50)
[2018-04-25 12:19] LABS: ANISOCYTOSIS 0; MACROCYTOSIS 0; OVALOCYTE 1+; PLATELET ESTIMATE DECREASED; TEAR DROP CELLS 1+
[2018-04-25 16:49] VITALS: BP 128/77; PULSE 87; TEMP 97.9
[2018-04-26 15:25] LABS: BETA-2-MICROGLOBULIN 2.6 mg/L (0.6-2.4)
== END 2018-04-25 16:00 | disposition home or self-care (01) ==
LOC: JONCCHEMO 06:16 → J7W 10:33 → JONCCHEMO 16:00
PROVIDERS: ATTEND Internal Medicine Hematology & Oncology
PROC: 3E033GC Introduction of Other Therapeutic Substance into Peripheral Vein, Percutaneous Approach (ICD-10-PCS; principal; 2018-04-25)
PROC: 3E033GC Introduction of Other Therapeutic Substance into Peripheral Vein, Percutaneous Approach (ICD-10-PCS; 2018-04-25)
DX: D80.1 Nonfamilial hypogammaglobulinemia (principal); C90.00 Multiple myeloma not having achieved remission; C18.9 Malignant neoplasm of colon, unspecified
CPT/HCPCS: 36415; 80048; 80076; 82232; 82784; 83615; 83735; 84550; 85025; 96365; 96366; 96367; 96375; 96415; 96417; J1561; J9041

== ENCOUNTER 2018-04-26 05:42 | Day surgery (SDC) | payer OTHER ==
[2018-04-26] MEDS ORDERED: ACETAMINOPHEN 325 MG TABLET (FP) PO ONE (08:00)
[2018-04-26] MEDS ORDERED: DIPHENHYDRAMINE 25 MG in SODIUM CHLORIDE 50 ML IVPB ONE (08:00)
[2018-04-26] MEDS ORDERED: SODIUM CHLORIDE 250 ML IV ONE (08:00)
[2018-04-26] MEDS ORDERED: IMMUNE GLOBULIN IVPB ONE (08:30)
[2018-04-26] MEDS ORDERED: [UNRECOGNIZED DRUG - OTHER] IVPB ONE (08:30)
[2018-04-26 15:39] VITALS: BP 127/72; PULSE 83; TEMP 97.9
== END 2018-04-26 14:30 | disposition home or self-care (01) ==
LOC: JONCCHEMO 05:42 → J7W 09:12 → JONCCHEMO 14:30
PROVIDERS: ATTEND Internal Medicine Hematology & Oncology
PROC: 3E033GC Introduction of Other Therapeutic Substance into Peripheral Vein, Percutaneous Approach (ICD-10-PCS; principal; 2018-04-26)
DX: D80.1 Nonfamilial hypogammaglobulinemia (principal); C90.00 Multiple myeloma not having achieved remission; C18.9 Malignant neoplasm of colon, unspecified
CPT/HCPCS: 96365; 96366; 96375; 96415; 96417; J1561

== ENCOUNTER 2018-05-02 06:55 | Day surgery (SDC) | payer OTHER ==
[2018-05-02] MEDS ORDERED: BORTEZOMIB (VELCADE) 2.5 MG/ML SUB-Q INJECTION SQ ONE (08:00)
[2018-05-02 08:53] LABS: BASO % 0.7 % (0-2.0); EOS % 0.6 % (0-4.5); HEMATOCRIT 26.7 % (35.4-49); HEMOGLOBIN 8.8 GM/dL (11.7-16.9); LYMPH % 16.8 % (8-40); MCH 31.8 pg (25.7-33.7); MCHC 32.9 g/dl (32.0-35.9); MEAN CELL VOLUME 96.8 fl (80-96); MEAN PLT VOLUME 9.2 fl (7.5-11.1); MONO % 12.7 % (3.8-10.2); NEUT % 69.2 % (42.8-82.8); PLATELET COUNT 96 K/MM3 (134-434); RBC 2.76 M/mm3 (4.00-5.60); RDW 18.9 % (11.9-15.9)
[2018-05-02 09:33] LABS: ALBUMIN 2.9 g/dl (3.4-5.0); ALK PHOS 85 U/L (45-117); ANION GAP 8 MMOL/L (8-16); BILIRUBIN,DIRECT 0.1 mg/dL (0.0-0.2); BILIRUBIN,TOTAL 0.4 mg/dL (0.2-1); BLOOD UREA NITROGEN 21 mg/dL (7-18); CALCIUM 8.4 mg/dL (8.5-10.1); CHLORIDE 110 mmol/L (98-107); CO2 24 mmol/L (21-32); CREATININE 1.3 mg/dL (0.55-1.3); GLUCOSE,RANDOM 123 mg/dL (74-106); LDH 270 U/L (87-246); POTASSIUM 4.3 mmol/L (3.5-5.1); SGOT/AST 29 U/L (15-37); SGPT/ALT 36 U/L (13-61); SODIUM 142 mmol/L (136-145); TOT PROT 7.2 g/dl (6.4-8.2); URIC ACID 4.1 mg/dL (2.6-7.2)
[2018-05-02 11:46] VITALS: BP 93/59; PULSE 86; TEMP 97.9
== END 2018-05-02 10:30 | disposition home or self-care (01) ==
LOC: JONCCHEMO 06:55 → J7W 09:18 → JONCCHEMO 10:30
PROVIDERS: ATTEND Internal Medicine Hematology & Oncology
DX: Z51.11 Encounter for antineoplastic chemotherapy (principal); C18.9 Malignant neoplasm of colon, unspecified; C90.00 Multiple myeloma not having achieved remission; D80.1 Nonfamilial hypogammaglobulinemia
CPT/HCPCS: 36415; 80048; 80076; 83615; 83735; 84550; 85025; 96401; J9041

== ENCOUNTER 2018-05-23 06:34 | Day surgery (SDC) | payer OTHER | END 2018-05-23 11:30 | disposition home or self-care (01) | LOC: JONCCHEMO 06:34 → J7W 09:21 → JONCCHEMO 11:30 ==

== ENCOUNTER 2018-05-30 07:04 | Day surgery (SDC) | payer OTHER ==
[2018-05-30] MEDS ORDERED: BORTEZOMIB (VELCADE) 2.5 MG/ML SUB-Q INJECTION SQ ONE (10:00)
[2018-05-30 10:16] LABS: BASO % 0.5 % (0-2.0); EOS % 0.1 % (0-4.5); HEMATOCRIT 28.2 % (35.4-49); LYMPH % 5.3 % (8-40); MCH 30.7 pg (25.7-33.7); MCHC 31.9 g/dl (32.0-35.9); MEAN CELL VOLUME 96.2 fl (80-96); MEAN PLT VOLUME 9.1 fl (7.5-11.1); MONO % 0.9 % (3.8-10.2); NEUT % 93.2 % (42.8-82.8); PLATELET COUNT 97 K/MM3 (134-434); RBC 2.93 M/mm3 (4.00-5.60); RDW 18.8 % (11.9-15.9); WHITE BLOOD COUNT 8.5 K/mm3 (4.0-10.0)
[2018-05-30 10:36] LABS: INR 1.22 (0.83-1.09); PROTHROMBIN TIME (PATIENT) 14.4 SEC (9.7-13.0)
[2018-05-30 10:39] LABS: ACTIVATED PTT 28.7 SECONDS (25.2-36.5)
[2018-05-30 10:46] LABS: ALBUMIN 3.3 g/dl (3.4-5.0); ALK PHOS 96 U/L (45-117); ANION GAP 9 MMOL/L (8-16); BILIRUBIN,TOTAL 0.6 mg/dL (0.2-1); BLOOD UREA NITROGEN 18 mg/dL (7-18); CALCIUM 8.7 mg/dL (8.5-10.1); CHLORIDE 108 mmol/L (98-107); CO2 21 mmol/L (21-32); CREATININE 1.4 mg/dL (0.55-1.3); POTASSIUM 4.4 mmol/L (3.5-5.1); SGOT/AST 30 U/L (15-37); SGPT/ALT 49 U/L (13-61); SODIUM 139 mmol/L (136-145); TOT PROT 6.4 g/dl (6.4-8.2)
[2018-05-30 10:54] LABS: ALBUMIN 3.3 g/dl (3.4-5.0); BILIRUBIN,DIRECT 0.2 mg/dL (0.0-0.2); BILIRUBIN,TOTAL 0.6 mg/dL (0.2-1); MAGNESIUM 2.2 mg/dL (1.8-2.4); TOT PROT 6.5 g/dl (6.4-8.2); URIC ACID 4.1 mg/dL (2.6-7.2)
[2018-05-30 11:40] LABS: GLUCOSE,RANDOM 328 mg/dL (74-106)
[2018-05-30 13:09] LABS: ANISOCYTOSIS 1+; MACROCYTOSIS 0; PLATELET ESTIMATE DECREASED; TEAR DROP CELLS 1+
[2018-05-30 16:23] VITALS: BP 107/63; PULSE 100; TEMP 97.5
[2018-05-31 19:13] LABS: FREE KAPPA,SERUM 5.9 mg/L (3.3-19.4)
== END 2018-05-30 11:30 | disposition home or self-care (01) ==
LOC: JONCCHEMO 07:04 → J7W 09:56 → JONCCHEMO 11:30
PROVIDERS: ATTEND Internal Medicine Hematology & Oncology
DX: Z51.11 Encounter for antineoplastic chemotherapy (principal); C18.9 Malignant neoplasm of colon, unspecified; C90.00 Multiple myeloma not having achieved remission; D80.1 Nonfamilial hypogammaglobulinemia
CPT/HCPCS: 36415; 80053; 80076; 82784; 83615; 83735; 83883; 84550; 85025; 85610; 85651; 85730; 96401; J9041

== ENCOUNTER 2018-06-21 07:27 | Day surgery (SDC) | payer OTHER ==
[~2018-06-21 07:27] MED LIST changes: -ACETAMINOPHEN 325 MG TABLET (FP) PO ONE; +BORTEZOMIB (VELCADE) 2.5 MG/ML SUB-Q INJECTION SQ ONE; -DIPHENHYDRAMINE 25 MG in SODIUM CHLORIDE 50 ML IVPB ONE; -SODIUM CHLORIDE 250 ML IV ONE; -[UNRECOGNIZED DRUG - OTHER] IVPB ONE
[2018-06-21 09:02] LABS: BASO % 0.5 % (0-2.0); HEMATOCRIT 27.3 % (35.4-49); HEMOGLOBIN 8.5 GM/dL (11.7-16.9); LYMPH % 8.7 % (8-40); MCH 28.8 pg (25.7-33.7); MCHC 31.3 g/dl (32.0-35.9); MEAN PLT VOLUME 9.2 fl (7.5-11.1); MONO % 7.9 % (3.8-10.2); NEUT % 82.9 % (42.8-82.8); PLATELET COUNT 131 K/MM3 (134-434); RBC 2.97 M/mm3 (4.00-5.60); RDW 18.2 % (11.9-15.9); WHITE BLOOD COUNT 10.9 K/mm3 (4.0-10.0)
[2018-06-21 09:41] LABS: ALBUMIN 3.2 g/dl (3.4-5.0); ALK PHOS 105 U/L (45-117); ANION GAP 11 MMOL/L (8-16); BILIRUBIN,TOTAL 0.8 mg/dL (0.2-1); BLOOD UREA NITROGEN 24 mg/dL (7-18); CALCIUM 8.8 mg/dL (8.5-10.1); CHLORIDE 106 mmol/L (98-107); CO2 25 mmol/L (21-32); CREATININE 1.5 mg/dL (0.55-1.3); GLUCOSE,RANDOM 273 mg/dL (74-106); POTASSIUM 4.9 mmol/L (3.5-5.1); SGOT/AST 40 U/L (15-37); SGPT/ALT 56 U/L (13-61); SODIUM 141 mmol/L (136-145); TOT PROT 6.3 g/dl (6.4-8.2)
[2018-06-21 09:43] LABS: ALBUMIN 3.3 g/dl (3.4-5.0); BILIRUBIN,DIRECT 0.2 mg/dL (0.0-0.2); BILIRUBIN,TOTAL 0.5 mg/dL (0.2-1); MAGNESIUM 2.2 mg/dL (1.8-2.4); TOT PROT 6.3 g/dl (6.4-8.2)
[2018-06-21 11:42] LABS: ANISOCYTOSIS 1+; MACROCYTOSIS 1+; OVALOCYTE 1+; PLATELET ESTIMATE DECREASED; TEAR DROP CELLS 1+
[2018-06-21 15:36] VITALS: BP 123/73; PULSE 79; TEMP 98.2
== END 2018-06-21 11:10 | disposition home or self-care (01) ==
LOC: JONCCHEMO 07:27 → J7W 10:29 → JONCCHEMO 11:10
PROVIDERS: ATTEND Internal Medicine Hematology & Oncology
DX: Z51.11 Encounter for antineoplastic chemotherapy (principal); C18.9 Malignant neoplasm of colon, unspecified; C90.00 Multiple myeloma not having achieved remission; D80.1 Nonfamilial hypogammaglobulinemia
CPT/HCPCS: 36415; 80053; 80076; 83735; 85025; 96401; J9041

== ENCOUNTER 2018-06-22 08:00 | Day surgery (SDC) | payer OTHER ==
[2018-06-21 15:57] VITALS: BMI 32.5
[2018-06-22 08:18] LABS: BASO % 0.9 % (0-2.0); EOS % 0.4 % (0-4.5); HEMATOCRIT 27.5 % (35.4-49); HEMOGLOBIN 8.5 GM/dL (11.7-16.9); LYMPH % 16.1 % (8-40); MCH 28.7 pg (25.7-33.7); MCHC 30.9 g/dl (32.0-35.9); MEAN CELL VOLUME 92.9 fl (80-96); MONO % 10.5 % (3.8-10.2); NEUT % 72.1 % (42.8-82.8); PLATELET COUNT 114 K/MM3 (134-434); RBC 2.96 M/mm3 (4.00-5.60); RDW 18.3 % (11.9-15.9); WHITE BLOOD COUNT 7.9 K/mm3 (4.0-10.0)
[2018-06-22 08:39] LABS: INR 0.95 (0.83-1.09); PROTHROMBIN TIME (PATIENT) 11.2 SEC (9.7-13.0)
[2018-06-22 11:18] LABS: ANISOCYTOSIS 1+; MACROCYTOSIS 1+; OVALOCYTE 1+; PLATELET ESTIMATE DECREASED; TEAR DROP CELLS 1+
[2018-06-22 13:18] VITALS: TEMP 98.2
[2018-06-22 15:10] VITALS: BP 121/69; PULSE 82
--- NOTE | 2018-06-23 16:40 | PATH ---
Surgical Pathology Report Patient Name: CHANTELL CULP [facility]. Rec. #: [id number] /Age/Gender: 1945 (Age: 72) / M Account: [id number] Location: RADIOLOGY INTER Taken: 06/22/2018 Received: 06/22/2018 Reported: 06/23/2018 Physicians: Alen Gomez M.D. Specimen(s) Received LIVER TISSUE Clinical History 72-year-old male with history of multiple myeloma and colon cancer now with right hepatic lobe mass Final Diagnosis LIVER TISSUE, ULTRASOUND GUIDED CORE BIOPSY: ADENOCARCINOMA, MODERATELY DIFFERENTIATED, CONSISTENT WITH METASTASIS FROM KNOWN COLON PRIMARY. SEE COMMENT. Comment: Immunohistochemical stains performed and interpreted at [facility] show the tumor is positive for AE1/3 and CK20; while negative for CK7. Prior material from the colon ([id number]) reviewed and appear morphologically similar. Overall histomorphology and immunophenotype is consistent with metastasis from patient's known colon primary. Findings discussed with Dr. Gomez. Electronically Signed Holly Ortega M.D. Gross Description Received in formalin labeled "liver tissue," are 4 contreras-yellow, cylindrical portions of soft tissue ranging from 0.4-1.3 cm in length and averaging 0.1 cm in diameter. The specimens are submitted in toto in one cassette. 06/22/201806/22/2018
== END 2018-06-22 15:10 | disposition home or self-care (01) ==
LOC: JRADIR 08:00
PROVIDERS: ATTEND Internal Medicine Hematology & Oncology
PROC: 0FB03ZX Excision of Liver, Percutaneous Approach, Diagnostic (ICD-10-PCS; principal; 2018-06-22)
DX: C78.7 Secondary malignant neoplasm of liver and intrahepatic bile duct (principal); C18.9 Malignant neoplasm of colon, unspecified; C90.00 Multiple myeloma not having achieved remission
CPT/HCPCS: 36415; 76942-TC; 85025; 85610; 87899; 88305-TC; 88341-TC; 88342-TC

== ENCOUNTER 2018-06-27 06:19 | Day surgery (SDC) | payer OTHER ==
[2018-06-27] MEDS ORDERED: DIPHENHYDRAMINE 25 MG in SODIUM CHLORIDE 50 ML IVPB ONE (08:00)
[2018-06-27] MEDS ORDERED: SODIUM CHLORIDE 250 ML IV ONE ×2 (08:00→14:00)
[2018-06-27] MEDS ORDERED: ACETAMINOPHEN 325 MG TABLET (FP) PO ONE (08:00)
[2018-06-27] MEDS ORDERED: IMMUNE GLOB GAM CAPRYLATE IVPB ONE (08:30)
[2018-06-27 08:52] LABS: BASO % 0.2 % (0-2.0); HEMATOCRIT 29.1 % (35.4-49); HEMOGLOBIN 9.2 GM/dL (11.7-16.9); LYMPH % 7.7 % (8-40); MCH 29.4 pg (25.7-33.7); MCHC 31.7 g/dl (32.0-35.9); MEAN CELL VOLUME 92.7 fl (80-96); MEAN PLT VOLUME 9.3 fl (7.5-11.1); MONO % 0.9 % (3.8-10.2); NEUT % 91.2 % (42.8-82.8); PLATELET COUNT 80 K/MM3 (134-434); RBC 3.14 M/mm3 (4.00-5.60); RDW 18.4 % (11.9-15.9); WHITE BLOOD COUNT 6.3 K/mm3 (4.0-10.0)
[2018-06-27] MEDS ORDERED: BORTEZOMIB (VELCADE) 2.5 MG/ML SUB-Q INJECTION SQ ONE (09:00)
[2018-06-27 09:30] LABS: ALBUMIN 3.2 g/dl (3.4-5.0); BILIRUBIN,DIRECT 0.3 mg/dL (0.0-0.2); BILIRUBIN,TOTAL 0.8 mg/dL (0.2-1); TOT PROT 6.3 g/dl (6.4-8.2); URIC ACID 4.5 mg/dL (2.6-7.2)
[2018-06-27 09:32] LABS: ALBUMIN 3.2 g/dl (3.4-5.0); ALK PHOS 114 U/L (45-117); ANION GAP 12 MMOL/L (8-16); BILIRUBIN,TOTAL 0.7 mg/dL (0.2-1); BLOOD UREA NITROGEN 17 mg/dL (7-18); CALCIUM 8.6 mg/dL (8.5-10.1); CHLORIDE 106 mmol/L (98-107); CO2 21 mmol/L (21-32); CREATININE 1.7 mg/dL (0.55-1.3); POTASSIUM 4.9 mmol/L (3.5-5.1); SGOT/AST 45 U/L (15-37); SGPT/ALT 62 U/L (13-61); SODIUM 139 mmol/L (136-145); TOT PROT 6.3 g/dl (6.4-8.2)
[2018-06-27 09:36] LABS: GLUCOSE,RANDOM 417 mg/dL (74-106)
[2018-06-27 10:08] LABS: ANISOCYTOSIS 0; MACROCYTOSIS 0; PLATELET ESTIMATE DECREASED; TARGET CELLS 1+; TEAR DROP CELLS 1+
[2018-06-27] MEDS ORDERED: INSULIN (NOVOLOG) ASPART 100 UNITS/ML 10ML VIAL SQ ONE (10:30)
[2018-06-27] MEDS ORDERED: INSULIN SLIDING SCALE (NOVOLOG) 1 VIAL SQ ONE (13:30)
[2018-06-27 16:38] VITALS: TEMP 97.9
[2018-06-27 16:39] VITALS: BP 127/65; PULSE 87
== END 2018-06-27 14:50 | disposition home or self-care (01) ==
LOC: JONCCHEMO 06:19 → J7W 10:06 → JONCCHEMO 14:50
PROVIDERS: ATTEND Internal Medicine Hematology & Oncology
PROC: 3E033GC Introduction of Other Therapeutic Substance into Peripheral Vein, Percutaneous Approach (ICD-10-PCS; principal; 2018-06-27)
DX: C18.9 Malignant neoplasm of colon, unspecified (principal); C90.00 Multiple myeloma not having achieved remission; D80.1 Nonfamilial hypogammaglobulinemia
CPT/HCPCS: 36415; 80053; 80076; 82962; 83615; 83735; 84550; 85025; 96365; 96366; 96415; 96417; J1561

== ENCOUNTER 2018-07-04 07:09 | Day surgery (SDC) | payer OTHER ==
[2018-07-04 08:51] LABS: BASO % 0.6 % (0-2.0); EOS % 0.2 % (0-4.5); HEMATOCRIT 30.5 % (35.4-49); HEMOGLOBIN 9.7 GM/dL (11.7-16.9); LYMPH % 9.4 % (8-40); MCH 29.2 pg (25.7-33.7); MEAN CELL VOLUME 91.2 fl (80-96); MEAN PLT VOLUME 9.2 fl (7.5-11.1); MONO % 1.8 % (3.8-10.2); PLATELET COUNT 114 K/MM3 (134-434); RBC 3.34 M/mm3 (4.00-5.60); RDW 18.1 % (11.9-15.9); WHITE BLOOD COUNT 7.3 K/mm3 (4.0-10.0)
[2018-07-04 09:22] LABS: ALBUMIN 3.3 g/dl (3.4-5.0); ALK PHOS 113 U/L (45-117); ANION GAP 10 MMOL/L (8-16); BILIRUBIN,DIRECT 0.3 mg/dL (0.0-0.2); BILIRUBIN,TOTAL 0.6 mg/dL (0.2-1); BLOOD UREA NITROGEN 18 mg/dL (7-18); CALCIUM 8.9 mg/dL (8.5-10.1); CHLORIDE 106 mmol/L (98-107); CO2 23 mmol/L (21-32); CREATININE 1.5 mg/dL (0.55-1.3); GLUCOSE,RANDOM 258 mg/dL (74-106); MAGNESIUM 1.9 mg/dL (1.8-2.4); POTASSIUM 4.6 mmol/L (3.5-5.1); SGOT/AST 57 U/L (15-37); SGPT/ALT 63 U/L (13-61); SODIUM 138 mmol/L (136-145); TOT PROT 7.3 g/dl (6.4-8.2)
[2018-07-04] MEDS ORDERED: BORTEZOMIB (VELCADE) 2.5 MG/ML SUB-Q INJECTION SQ ONE (10:00)
[2018-07-04] MEDS ORDERED: ACETAMINOPHEN 325 MG TABLET (FP) PO ONE (10:00)
[2018-07-04] MEDS ORDERED: IMMUNE GLOB,GAM CAPRYLATE(IGG) 60 GM/600 ML VIA IVPB ONE (10:00)
[2018-07-04] MEDS ORDERED: DIPHENHYDRAMINE 25 MG in SODIUM CHLORIDE 50 ML IVPB ONE (10:00)
[2018-07-04] MEDS ORDERED: IMMUNE GLOB GAM CAPRYLATE IVPB ONE (10:30)
[2018-07-04] MEDS ORDERED: INSULIN (NOVOLOG) ASPART 100 UNITS/ML 10ML VIAL ONE (10:32)
[2018-07-04] MEDS ORDERED: INSULIN (NOVOLOG) ASPART 100 UNITS/ML 10ML VIAL SQ ONE ×2 (10:45→14:15)
[2018-07-04 14:31] VITALS: BP 120/54; PULSE 76; TEMP 97.6
== END 2018-07-04 15:43 | disposition home or self-care (01) ==
LOC: JONCCHEMO 07:09 → J7W 09:27 → JONCCHEMO 15:43
PROVIDERS: ATTEND Internal Medicine Hematology & Oncology
PROC: 3E01305 Introduction of Other Antineoplastic into Subcutaneous Tissue, Percutaneous Approach (ICD-10-PCS; principal; 2018-07-04)
PROC: 3E033GC Introduction of Other Therapeutic Substance into Peripheral Vein, Percutaneous Approach (ICD-10-PCS; 2018-07-04)
DX: Z51.11 Encounter for antineoplastic chemotherapy (principal); C90.01 Multiple myeloma in remission
CPT/HCPCS: 36415; 80053; 80076; 82962; 83735; 85025; 96365; 96366; 96401; 96415; 96417; J1561; J9041

== ENCOUNTER 2018-07-18 07:16 | Day surgery (SDC) | payer OTHER ==
[2018-07-18 09:06] LABS: BASO % 0.3 % (0-2.0); EOS % 0.1 % (0-4.5); HEMATOCRIT 30.5 % (35.4-49); HEMOGLOBIN 9.2 GM/dL (11.7-16.9); LYMPH % 9.1 % (8-40); MCH 27.3 pg (25.7-33.7); MCHC 30.2 g/dl (32.0-35.9); MEAN CELL VOLUME 90.6 fl (80-96); MEAN PLT VOLUME 8.8 fl (7.5-11.1); MONO % 0.9 % (3.8-10.2); NEUT % 89.6 % (42.8-82.8); PLATELET COUNT 133 K/MM3 (134-434); RBC 3.37 M/mm3 (4.00-5.60); RDW 18.6 % (11.9-15.9); WHITE BLOOD COUNT 6.6 K/mm3 (4.0-10.0)
[2018-07-18 09:38] LABS: ALBUMIN 3.1 g/dl (3.4-5.0); BILIRUBIN,DIRECT 0.3 mg/dL (0.0-0.2); BILIRUBIN,TOTAL 0.8 mg/dL (0.2-1); TOT PROT 7.2 g/dl (6.4-8.2); URIC ACID 3.3 mg/dL (2.6-7.2)
[2018-07-18 09:44] LABS: ALK PHOS 113 U/L (45-117); ANION GAP 12 MMOL/L (8-16); BILIRUBIN,TOTAL 0.8 mg/dL (0.2-1); BLOOD UREA NITROGEN 18 mg/dL (7-18); CALCIUM 8.9 mg/dL (8.5-10.1); CHLORIDE 104 mmol/L (98-107); CO2 21 mmol/L (21-32); CREATININE 1.6 mg/dL (0.55-1.3); SGOT/AST 69 U/L (15-37); SGPT/ALT 79 U/L (13-61); SODIUM 137 mmol/L (136-145); TOT PROT 7.2 g/dl (6.4-8.2)
[2018-07-18] MEDS ORDERED: BORTEZOMIB (VELCADE) 2.5 MG/ML SUB-Q INJECTION SQ ONE (10:00)
[2018-07-18 10:10] LABS: GLUCOSE,RANDOM 396 mg/dL (74-106)
[2018-07-18 10:39] VITALS: BP 102/53; PULSE 89; TEMP 98
== END 2018-07-18 10:05 | disposition home or self-care (01) ==
LOC: JONCCHEMO 07:16 → J7W 09:42 → JONCCHEMO 10:05
PROVIDERS: ATTEND Internal Medicine Hematology & Oncology
DX: Z51.11 Encounter for antineoplastic chemotherapy (principal); C90.01 Multiple myeloma in remission
CPT/HCPCS: 36415; 80053; 80076; 83615; 83735; 84550; 85025; 96401; J9041

== ENCOUNTER 2018-08-01 07:06 | Day surgery (SDC) | payer OTHER ==
[2018-08-01] MEDS ORDERED: BORTEZOMIB (VELCADE) 2.5 MG/ML SUB-Q INJECTION SQ ONE (09:00)
[2018-08-01 10:04] LABS: HEMATOCRIT 28.5 % (35.4-49); HEMOGLOBIN 8.8 GM/dL (11.7-16.9); MCH 27.2 pg (25.7-33.7); MCHC 30.7 g/dl (32.0-35.9); MEAN CELL VOLUME 88.5 fl (80-96); PLATELET COUNT 121 K/MM3 (134-434); RBC 3.23 M/mm3 (4.00-5.60); RDW 19.1 % (11.9-15.9); WHITE BLOOD COUNT 8.1 K/mm3 (4.0-10.0)
[2018-08-01 10:07] LABS: ANION GAP 9 MMOL/L (8-16); BLOOD UREA NITROGEN 13 mg/dL (7-18); CALCIUM 8.6 mg/dL (8.5-10.1); CHLORIDE 108 mmol/L (98-107); CO2 24 mmol/L (21-32); CREATININE 1.4 mg/dL (0.55-1.3); GLUCOSE,RANDOM 204 mg/dL (74-106); LDH 376 U/L (87-246); MAGNESIUM 1.8 mg/dL (1.8-2.4); POTASSIUM 4.7 mmol/L (3.5-5.1); SODIUM 141 mmol/L (136-145); URIC ACID 4.3 mg/dL (2.6-7.2)
[2018-08-01] MEDS ORDERED: INSULIN (NOVOLOG) ASPART 100 UNITS/ML 10ML VIAL SQ ONE (11:00)
[2018-08-01 14:00] VITALS: BP 108/75; PULSE 83; TEMP 98.2
[2018-08-02 04:10] LABS: CARCINOEMBRYONIC ANTIGEN 601.6 ng/mL (0.0-4.7)
[2018-08-02 16:13] LABS: BETA-2-MICROGLOBULIN 2.7 mg/L (0.6-2.4)
== END 2018-08-01 10:45 | disposition home or self-care (01) ==
LOC: JONCCHEMO 07:06 → J7W 09:27 → JONCCHEMO 10:45
PROVIDERS: ATTEND Internal Medicine Hematology & Oncology
DX: Z51.11 Encounter for antineoplastic chemotherapy (principal); C90.00 Multiple myeloma not having achieved remission; C78.5 Secondary malignant neoplasm of large intestine and rectum
CPT/HCPCS: 36415; 80048; 82232; 82378; 82784; 83615; 83735; 84550; 85027; 96401; J9041

== ENCOUNTER 2018-08-15 07:11 | Day surgery (SDC) | payer OTHER ==
[2018-08-15 08:55] LABS: BASO % 0.7 % (0-2.0); EOS % 0.1 % (0-4.5); HEMATOCRIT 29.1 % (35.4-49); HEMOGLOBIN 8.9 GM/dL (11.7-16.9); LYMPH % 8.1 % (8-40); MCH 27.1 pg (25.7-33.7); MCHC 30.6 g/dl (32.0-35.9); MEAN CELL VOLUME 88.4 fl (80-96); NEUT % 90.1 % (42.8-82.8); PLATELET COUNT 122 K/MM3 (134-434); RBC 3.29 M/mm3 (4.00-5.60); RDW 19.6 % (11.9-15.9); WHITE BLOOD COUNT 6.7 K/mm3 (4.0-10.0)
[2018-08-15] MEDS ORDERED: BORTEZOMIB (VELCADE) 2.5 MG/ML SUB-Q INJECTION SQ ONE (09:00)
[2018-08-15 09:23] LABS: ALBUMIN 3.2 g/dl (3.4-5.0); ALK PHOS 112 U/L (45-117); ANION GAP 13 MMOL/L (8-16); BILIRUBIN,DIRECT 0.4 mg/dL (0.0-0.2); BILIRUBIN,TOTAL 1.1 mg/dL (0.2-1); BLOOD UREA NITROGEN 17 mg/dL (7-18); CHLORIDE 99 mmol/L (98-107); CO2 24 mmol/L (21-32); CREATININE 1.7 mg/dL (0.55-1.3); LDH 384 U/L (87-246); MAGNESIUM 1.7 mg/dL (1.8-2.4); POTASSIUM 4.5 mmol/L (3.5-5.1); SGOT/AST 56 U/L (15-37); SGPT/ALT 62 U/L (13-61); SODIUM 136 mmol/L (136-145); TOT PROT 6.6 g/dl (6.4-8.2); URIC ACID 4.4 mg/dL (2.6-7.2)
[2018-08-15 09:51] LABS: GLUCOSE,RANDOM 401 mg/dL (74-106)
[2018-08-15] MEDS ORDERED: INSULIN SLIDING SCALE (NOVOLOG) 1 VIAL SQ ONE (10:30)
[2018-08-15 11:13] LABS: INR 1.03 (0.83-1.09); PROTHROMBIN TIME (PATIENT) 12.2 SEC (9.7-13.0)
[2018-08-15 11:16] LABS: ACTIVATED PTT 29.5 SECONDS (25.2-36.5)
[2018-08-15 11:44] LABS: OVALOCYTE 1+; PLATELET ESTIMATE DECREASED; TEAR DROP CELLS 1+
[2018-08-15 15:21] VITALS: BP 121/60; PULSE 84; TEMP 98.5
== END 2018-08-15 11:00 | disposition home or self-care (01) ==
LOC: JONCCHEMO 07:11 → J7W 10:06 → JONCCHEMO 11:00
PROVIDERS: ATTEND Internal Medicine Hematology & Oncology
DX: Z51.11 Encounter for antineoplastic chemotherapy (principal); C90.00 Multiple myeloma not having achieved remission; C78.5 Secondary malignant neoplasm of large intestine and rectum
CPT/HCPCS: 36415; 80048; 80076; 82962; 83615; 83735; 84550; 85025; 85384; 85610; 85730; 96401; J9041

== ENCOUNTER 2018-08-29 07:13 | Day surgery (SDC) | payer OTHER ==
[2018-08-29 08:55] LABS: BASO % 0.3 % (0-2.0); EOS % 0.3 % (0-4.5); HEMATOCRIT 28.5 % (35.4-49); HEMOGLOBIN 8.7 GM/dL (11.7-16.9); LYMPH % 3.6 % (8-40); MCH 26.9 pg (25.7-33.7); MCHC 30.5 g/dl (32.0-35.9); MEAN CELL VOLUME 88.2 fl (80-96); MEAN PLT VOLUME 8.2 fl (7.5-11.1); NEUT % 92.8 % (42.8-82.8); PLATELET COUNT 96 K/MM3 (134-434); RBC 3.23 M/mm3 (4.00-5.60); RDW 19.1 % (11.9-15.9); WHITE BLOOD COUNT 7.4 K/mm3 (4.0-10.0)
[2018-08-29 09:48] LABS: ALBUMIN 2.9 g/dl (3.4-5.0); BILIRUBIN,TOTAL 0.9 mg/dL (0.2-1); CALCIUM 8.4 mg/dL (8.5-10.1); CREATININE 1.2 mg/dL (0.55-1.3); POTASSIUM 4.1 mmol/L (3.5-5.1); TOT PROT 5.6 g/dl (6.4-8.2)
[2018-08-29] MEDS ORDERED: ACETAMINOPHEN 325 MG TABLET (FP) PO ONE (10:00)
[2018-08-29] MEDS ORDERED: DIPHENHYDRAMINE 25 MG in SODIUM CHLORIDE 50 ML IVPB ONE (10:00)
[2018-08-29] MEDS ORDERED: INSULIN (NOVOLOG) ASPART 100 UNITS/ML 10ML VIAL SQ ONE (10:10)
[2018-08-29] MEDS ORDERED: IMMUN GLOB G(IGG)/PRO/IGA 0-50 600 ML, IMMUN GLOB G(IGG)/PRO/IGA 0-50 100 ML IVPB ONE (10:30)
[2018-08-29 10:40] LABS: URIC ACID 3.3 mg/dL (2.6-7.2)
[2018-08-29 12:44] LABS: ANISOCYTOSIS 0; MACROCYTOSIS 0; PLATELET ESTIMATE DECREASED; TEAR DROP CELLS 2+
[2018-08-29 16:35] VITALS: TEMP 97.7
[2018-08-29 16:37] VITALS: BP 125/69; PULSE 72
[2018-08-30 04:10] LABS: CARCINOEMBRYONIC ANTIGEN 175.9 ng/mL (0.0-4.7)
== END 2018-08-29 13:45 | disposition home or self-care (01) ==
LOC: JONCCHEMO 07:13 → J7W 09:38 → JONCCHEMO 13:45
PROVIDERS: ATTEND Internal Medicine Hematology & Oncology
PROC: 3E033GC Introduction of Other Therapeutic Substance into Peripheral Vein, Percutaneous Approach (ICD-10-PCS; principal; 2018-08-29)
DX: D80.1 Nonfamilial hypogammaglobulinemia (principal); C90.00 Multiple myeloma not having achieved remission; C78.5 Secondary malignant neoplasm of large intestine and rectum; C78.7 Secondary malignant neoplasm of liver and intrahepatic bile duct; E11.9 Type 2 diabetes mellitus without complications; I10 Essential (primary) hypertension
CPT/HCPCS: 36415; 80053; 82378; 82784; 83615; 83735; 83883; 84155; 84165; 84550; 85025; 86334; 96365; 96366; 96375; 96415; 96417; J1459

== ENCOUNTER 2018-08-30 07:15 | Day surgery (SDC) | payer OTHER ==
[2018-08-30] MEDS ORDERED: DIPHENHYDRAMINE 25 MG in SODIUM CHLORIDE 50 ML IVPB ONE (10:00)
[2018-08-30] MEDS ORDERED: ACETAMINOPHEN 325 MG TABLET (FP) PO ONE (10:00)
[2018-08-30] MEDS ORDERED: IMMUN GLOB G(IGG)/PRO/IGA 0-50 600 ML, IMMUN GLOB G(IGG)/PRO/IGA 0-50 100 ML IVPB ONE (10:30)
[2018-08-30 17:33] VITALS: BP 134/79; PULSE 74; TEMP 98.3
== END 2018-08-30 14:15 | disposition home or self-care (01) ==
LOC: JONCCHEMO 07:15 → J7W 08:45 → JONCCHEMO 14:15
PROVIDERS: ATTEND Internal Medicine Hematology & Oncology
PROC: 3E033GC Introduction of Other Therapeutic Substance into Peripheral Vein, Percutaneous Approach (ICD-10-PCS; principal; 2018-08-30)
PROC: 3E033GC Introduction of Other Therapeutic Substance into Peripheral Vein, Percutaneous Approach (ICD-10-PCS; 2018-08-30)
DX: D80.1 Nonfamilial hypogammaglobulinemia (principal); C90.00 Multiple myeloma not having achieved remission; C78.5 Secondary malignant neoplasm of large intestine and rectum; C78.7 Secondary malignant neoplasm of liver and intrahepatic bile duct; E11.9 Type 2 diabetes mellitus without complications; I10 Essential (primary) hypertension
CPT/HCPCS: 96365; 96366; 96367; 96375; 96415; 96417; J1459

== ENCOUNTER 2018-09-05 08:39 | Day surgery (SDC) | payer OTHER ==
[2018-09-02 13:31] VITALS: BMI 32.5
[2018-09-05 08:58] LABS: BASO % 1.3 % (0-2.0); EOS % 0.3 % (0-4.5); HEMATOCRIT 27.8 % (35.4-49); HEMOGLOBIN 8.5 GM/dL (11.7-16.9); LYMPH % 18.9 % (8-40); MCH 26.8 pg (25.7-33.7); MCHC 30.4 g/dl (32.0-35.9); MEAN PLT VOLUME 7.6 fl (7.5-11.1); MONO % 15.2 % (3.8-10.2); NEUT % 64.3 % (42.8-82.8); PLATELET COUNT 108 K/MM3 (134-434); RBC 3.16 M/mm3 (4.00-5.60); RDW 20.3 % (11.9-15.9); WHITE BLOOD COUNT 5.2 K/mm3 (4.0-10.0)
[2018-09-05 09:12] LABS: INR 1.02 (0.83-1.09)
[2018-09-05] MEDS ORDERED: MIDAZOLAM HCL 2 MG/2 ML SINGLE DOSE VIAL ONE (10:13)
[2018-09-05 13:34] VITALS: BP 126/78; PULSE 102; TEMP 98.8
== END 2018-09-05 13:25 | disposition home or self-care (01) ==
LOC: JRADIR 08:39
PROVIDERS: ATTEND Internal Medicine Hematology & Oncology
PROC: 02HV33Z Insertion of Infusion Device into Superior Vena Cava, Percutaneous Approach (ICD-10-PCS; principal; 2018-09-05)
PROC: B518ZZA Fluoroscopy of Superior Vena Cava, Guidance (ICD-10-PCS; 2018-09-05)
DX: C90.00 Multiple myeloma not having achieved remission (principal); C78.5 Secondary malignant neoplasm of large intestine and rectum; C78.7 Secondary malignant neoplasm of liver and intrahepatic bile duct; D80.1 Nonfamilial hypogammaglobulinemia
CPT/HCPCS: 36561; 77001; C1788; 36415; 85025; 85610

== ENCOUNTER 2018-09-06 07:20 | Day surgery (SDC) | payer OTHER ==
[2018-09-06 09:22] LABS: BASO % 0.6 % (0-2.0); EOS % 0.2 % (0-4.5); HEMATOCRIT 26.8 % (35.4-49); HEMOGLOBIN 8.1 GM/dL (11.7-16.9); LYMPH % 17.5 % (8-40); MCH 27.1 pg (25.7-33.7); MCHC 30.4 g/dl (32.0-35.9); MEAN CELL VOLUME 89.2 fl (80-96); MEAN PLT VOLUME 7.7 fl (7.5-11.1); MONO % 14.3 % (3.8-10.2); NEUT % 67.4 % (42.8-82.8); PLATELET COUNT 96 K/MM3 (134-434); WHITE BLOOD COUNT 5.2 K/mm3 (4.0-10.0)
[2018-09-06 09:47] LABS: ALBUMIN 2.7 g/dl (3.4-5.0); BILIRUBIN,DIRECT 0.4 mg/dL (0.0-0.2); BILIRUBIN,TOTAL 0.9 mg/dL (0.2-1); CREATININE 1.4 mg/dL (0.55-1.3); MAGNESIUM 1.8 mg/dL (1.8-2.4); POTASSIUM 4.2 mmol/L (3.5-5.1); TOT PROT 6.9 g/dl (6.4-8.2)
[2018-09-06] MEDS ORDERED: ATROPINE SO4 0.4 MG/1 ML VIAL NR ONE (10:00)
[2018-09-06] MEDS ORDERED: PALONOSETRON HCL 0.25 MG/5 ML VIAL IVPUSH ONE (10:00)
[2018-09-06] MEDS ORDERED: DEXAMETHASONE SODIUM PHOSPHATE 10 MG in SODIUM CHLORIDE 50 ML IVPB ONE (10:00)
[2018-09-06] MEDS ORDERED: LEUCOVORIN IVPB ONE (10:30)
[2018-09-06] MEDS ORDERED: DEXTROSE 5% IVPB ONE ×2 (10:30→11:00)
[2018-09-06] MEDS ORDERED: WATER IVPB ONE ×2 (10:30→11:00)
[2018-09-06] MEDS ORDERED: IRINOTECAN HCL IVPB ONE (11:00)
[2018-09-06] MEDS ORDERED: FLUOROURACIL 2,500 MG/50 ML VIAL IVPUSH ONE (12:30)
[2018-09-06] MEDS ORDERED: FLUOROURACIL CP ONE (12:45)
[2018-09-06] MEDS ORDERED: SODIUM CHLORIDE CP ONE (12:45)
[2018-09-06 17:04] VITALS: TEMP 99
[2018-09-06 17:16] VITALS: BP 114/62; PULSE 92
[2018-09-06] MEDS ORDERED: PORTA CATH FLUSH 10 ML IVPUSH ONE (17:16)
== END 2018-09-06 15:45 | disposition home or self-care (01) ==
LOC: JONCCHEMO 07:20 → J7W 11:51 → JONCCHEMO 15:45
PROVIDERS: ATTEND Internal Medicine Hematology & Oncology
PROC: 3E04305 Introduction of Other Antineoplastic into Central Vein, Percutaneous Approach (ICD-10-PCS; principal; 2018-09-06)
PROC: 3E04305 Introduction of Other Antineoplastic into Central Vein, Percutaneous Approach (ICD-10-PCS; 2018-09-06)
PROC: 3E043GC Introduction of Other Therapeutic Substance into Central Vein, Percutaneous Approach (ICD-10-PCS; 2018-09-06)
DX: Z51.11 Encounter for antineoplastic chemotherapy (principal); C18.9 Malignant neoplasm of colon, unspecified; C78.7 Secondary malignant neoplasm of liver and intrahepatic bile duct; C90.01 Multiple myeloma in remission; I10 Essential (primary) hypertension; I48.91 Unspecified atrial fibrillation; E11.9 Type 2 diabetes mellitus without complications; H40.9 Unspecified glaucoma; E78.00 Pure hypercholesterolemia, unspecified; G62.9 Polyneuropathy, unspecified; Z86.73 Personal history of transient ischemic attack (TIA), and cerebral infarction without residual deficits
CPT/HCPCS: 36415; 80048; 80076; 82140; 83735; 85025; 96367; 96375; 96413; 96415; 96417; G0498; J2469; J9206

== ENCOUNTER 2018-09-08 07:36 | Day surgery (SDC) | payer OTHER | END 2018-09-08 13:37 | disposition home or self-care (01) | LOC: JONCCHEMO 07:36 → J7W 13:06 → JONCCHEMO 13:37 ==

== ENCOUNTER 2018-09-12 07:45 | Inpatient (IN) | payer OTHER ==
--- NOTE | 2018-09-12 07:54 | PDOC ---
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 The patient thought he would feels better by today but continues to have generalized weakness/malaise. Additionally, since receiving his last treatments he reports burning epigastric abdominal pain that is non-radiating, intermittent, not exacerbated or alleviated by anything he can identify. He endorses associated vomiting for a couple of days after CTX but none today. He reports a cough since the time of his last treatment as well that is intermittently productive with whitish sputum. The pt states he also had a port placed on 09/07/18 but denies the surrounding area being tender or red that he has noticed. He reports usually having GI upset and malaise after treatments but he feels his symptoms more intensely today. Denies fevers at home, MCDOWELL, vision changes, chest pain, SOB, back pain, dysuria, hematuria, diarrhea, or blood in his stool. 09/12/18 08:11 Past History - Past Medical History Allergies/Adverse Reactions: Allergies Allergy/AdvReac Type Severity Reaction Status Date / Time No Known Allergies Allergy Verified 09/12/18 08:59 Home Medications: Ambulatory Orders Gabapentin 400 mg PO BID 10/04/16 Allopurinol 300 mg PO DAILY 10/21/17 Atorvastatin Ca [Lipitor] 40 mg PO HS 10/21/17 Cyanocobalamin (Vitamin B-12) [Vitamin B12] 2,500 mcg PO DAILY 10/21/17 Oxycodone HCl [Oxycontin] 10 mg PO PRN PRN 10/21/17 Pantoprazole Sodium [Protonix] 40 mg PO DAILY 10/21/17 Apixaban [Eliquis -] 5 mg PO BID #0 tablet 06/22/18 Furosemide 40 mg PO DAILY 06/22/18 Metoprolol Succinate 25 mg PO BID 06/22/18 Anemia: No Asthma: No Cancer: Yes (liver,colon,multiple myeloma) Cardiac Disorders: No CVA: Yes (TIA-left eye) COPD: No CHF: No Dementia: No Diabetes: Yes GI Disorders: Yes (acid reflux) Disorders: No HTN: Yes Hypercholesterolemia: No Liver Disease: Yes Seizures: No Thyroid Disease: No - Surgical History Abdominal Surgery: Yes (colectomy, liver surgery) Appendectomy: No Cardiac Surgery: No Cholecystectomy: No Lung Surgery: No Neurologic Surgery: No Orthopedic Surgery: Yes (LEFT KNEE ARTHROSCOPY) - Immunization History Immunization Up to Date: Yes - Suicide/Smoking/Psychosocial Hx Smoking History: Former smoker Have you smoked in the past 12 months: No If you are a former smoker, when did you quit?: 1975 Hx Alcohol Use: No Drug/Substance Use Hx: No Substance Use Type: None Hx Substance Use Treatment: (RECOVERING ALCOHOLIC 1982) Review of Systems - Review of Systems Able to Perform ROS?: Yes Comments:: GENERAL/CONSTITUTIONAL: Denies subjective fevers/chills HEAD, EYES, EARS, NOSE AND THROAT: No change in vision. No ear pain or discharge. No sore throat CARDIOVASCULAR: No chest pain or shortness of breath RESPIRATORY: Denies hemoptysis GASTROINTESTINAL: +N/V; Denies diarrhea or blood in stool GENITOURINARY: No dysuria, frequency, or change in urination MUSCULOSKELETAL: No joint or muscle swelling or pain. No neck or back pain SKIN: No rash NEUROLOGIC: Denies headache, vertigo, loss of consciousness, or change in strength/sensation ENDOCRINE: No increased thirst. No abnormal weight change HEMATOLOGIC/LYMPHATIC: +Eliquis; denies hx of dvt ALLERGIC/IMMUNOLOGIC: No hives or skin allergy 09/12/18 07:50 Is the patient limited Polish proficient: No *Physical Exam - Vital Signs Vital Signs Temp Pulse Resp BP Pulse Ox 104.2 F H 115 H 17 131/75 99 09/12/18 08:02 09/12/18 07:56 09/12/18 07:56 09/12/18 07:56 09/12/18 08:03 09/12/18 08:35 - Physical Exam Comments: GENERAL: Awake, alert, and oriented to person/place/time HEAD: No signs of trauma, normocephalic, atraumatic EYES: PERRLA, EOMI, sclera anicteric, conjunctiva clear ENT: Hearing grossly normal, nares patent, oropharynx clear without exudates. Dry mucosa LUNGS: No distress, diminished lung sounds but poor inspiratory effort HEART: Tachycardic rate with regular rhythm, normal S1 and S2, no murmurs appreciated, peripheral pulses normal and equal bilaterally CHEST: R port site w/o overlying erythema or TTP ABDOMEN: Soft, protuberant, non-distened, generalized TTP that is worse over epigastrium and RUQ w/o rebound or guarding; normoactive bowel sounds. Well healed periumbilical vertical surgical incision; ecchymosis over epigastrium and RUQ (pt reports 2/2 medication injections); EXTREMITIES: Normal inspection, Normal range of motion, no edema NEUROLOGICAL: Cranial nerves II through XII grossly intact. 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 Ddx includes sepsis 2/2 PNA, port site, less likely UTI and no observed cellulitis; neutropenic fever; GI symptoms possibly 2/2 CTX side effects; abd also possibly due to worsening mets vs gastritis; fall may be 2/2 mechanical or syncopal as patient is unreliably able to describe how he fell ED Course Sepsis labs sent ECG CXR CT head and c-spine to evaluate for injury s/p fall CT A&P to evaluate for intra-abdominal pathology including worsening of mets; bowel inflammation IVF Ofirmev for fever and pain Pepcid and Maalox for symptomatic relief Vancomycin and Cefepime for sepsis w/ most likely sources being PNA or new port ECG w/ sinus tachycardia; HR 110; QTc 462; no evidence of acute ischemic changes 09/12/18 07:53 Leukopenia to 1.9, ANC 1694 Chronic anemia, Hgb 8.7, at baseline 09/12/18 09:05 LFTs unremarkable Trop I neg Mild hypokalmeia Cr 1.5, near baseline 09/12/18 09:09 Dispo: Admit *DC/Admit/Observation/Transfer Diagnosis at time of Disposition: History of colon cancer Atrial fibrillation Qualifiers: Atrial fibrillation type: chronic Qualified Code(s): I48.2 - Chronic atrial fibrillation Multiple myeloma Qualifiers: Multiple myeloma remission status: unspecified Qualified Code(s): C90.00 - Multiple myeloma not having achieved remission Sepsis Qualifiers: Sepsis type: sepsis due to unspecified organism Qualified Code(s): A41.9 - Sepsis, unspecified organism Leukopenia Qualifiers: Leukopenia type: unspecified Qualified Code(s): D72.819 - Decreased white blood cell count, unspecified - Discharge Dispostion Condition at time of disposition: Guarded Decision to Admit order: Yes - Referrals - Patient Instructions - Post Discharge Activity
[2018-09-12] MEDS ORDERED: ACETAMINOPHEN 1000 MG/100 ML VIAL (NON FORMULARY) IVPB ONE (08:10)
[2018-09-12] MEDS ORDERED: SODIUM CHLORIDE 0.9% 500 ML INFUS.BAG IV ONE (08:10)
[2018-09-12] MEDS ORDERED: FAMOTIDINE 20 MG/50 ML IVPB 20 MG/50 ML MG IVPB ONE ×2 (08:17→08:32)
[2018-09-12] MEDS ORDERED: MAG HYDROX/AL HYDROX/SIMETH 30 ML UNIT-DOSE CUP PO ONE (08:17)
--- NOTE | 2018-09-12 08:23 | PDOC ---
Attending Attestation - Resident Resident Name: Michael Little - ED Attending Attestation I have performed the following: I have examined & evaluated the patient, The case was reviewed & discussed with the resident, I agree w/resident's findings & plan, Exceptions are as noted - HPI HPI: 09/12/18 08:19 72yo M MM, colon ca s/p resection on chemo (last 6 days ago) c/b possible liver mets, AF on eliquis, DM, HTN presents to the ED with fever and generalized weakness. reports the pt has not been doing well since his started a new chemo last Wednesday. Since then, pt has had malaise, cough, dry heaving, nausea, 1 episode of NBNB vomiting, and epigastric abd pain. Pt also fell last night, can not tell us how or if he had HS or LOC. This morning, pt was unable to get out of bed prompting to bring him to the ED. Pt denies headache, focal weakness/numbness, CP, SOB, LE edema. Pt is full code. - Physicial Exam PE: 09/12/18 09:38 GENERAL: Awake, pale, lethargic but arousable, in no acute distress. Feels very warm HEAD: No signs of trauma EYES: PERRLA, EOMI, sclera anicteric, conjunctiva clear ENT: Oropharynx clear without exudates. Moist mucosa NECK: Normal ROM, supple, no lymphadenopathy, JVD, or masses LUNGS: Breath sounds equal, clear to auscultation bilaterally. No wheezes, and no crackles HEART: Tachycardic but regular, normal S1 and S2, no murmurs, rubs or gallops ABDOMEN: Soft, mild epigsatric ttp, normoactive bowel sounds. No guarding, no rebound. No masses. EXTREMITIES: Normal range of motion, no edema. No cords, erythema, or tenderness NEUROLOGICAL: Normal speech, cranial nerves intact, equal strength and sensation b/l SKIN: Port to R side of the chest with no surrounding erythema or TTP. Midline abd scar noted, c/d/i - Medical Decision Making 09/12/18 09:49 72yo M hx MMP including MM, colon ca with liver mets on chemo presents to the ED with fever to 104, malaise, weakness, abd pain, vomiting Concern for neutropenic fever Pt covered empirically with cefepime and vanc (pt has port) Will do broad infectious w/u With regards to fall, plan for CTH/c-spine For epigastric abdominal pain, possible 2/2 mets but plan for CT for further evaluation. Anticipate admission Heart Score/ECG Review #1 09/12/18 09:53 Twelve-lead EKG was performed and reviewed by me. Sinus tachycardia, rate 110. Normal axis and intervals, no LEE
[2018-09-12] MEDS ORDERED: CEFEPIME HCL/D5W 2 GM/50 ML BAG IVPB ONE (08:26)
[2018-09-12] MEDS ORDERED: ACETAMINOPHEN INJECTION 100 ML IVPB ONE (08:31)
[2018-09-12] MEDS ORDERED: MAG HYDROX/AL HYDROX/SIMETH 30 ML UNIT-DOSE CUP ONE (08:31)
[2018-09-12] MEDS ORDERED: CEFEPIME 2 GM/100 ML BAG IVPB ONE (08:32)
[2018-09-12 08:35] LABS: VENOUS PC02 25.8 mmHg (41-51); VENOUS PH 7.5 (7.31-7.41); VENOUS PO2 32.5 mmHg (30-40)
[2018-09-12 08:42] LABS: BASO % 0.6 % (0-2.0); EOS % 0.1 % (0-4.5); HEMATOCRIT 27.4 % (35.4-49); HEMOGLOBIN 8.7 GM/dL (11.7-16.9); LYMPH % 8.8 % (8-40); MCH 27.2 pg (25.7-33.7); MCHC 31.6 g/dl (32.0-35.9); MEAN CELL VOLUME 86.1 fl (80-96); MEAN PLT VOLUME 8.6 fl (7.5-11.1); MONO % 1.3 % (3.8-10.2); NEUT % 89.2 % (42.8-82.8); PLATELET COUNT 54 K/MM3 (134-434); RBC 3.19 M/mm3 (4.00-5.60); RDW 19.3 % (11.9-15.9)
[2018-09-12] MEDS ORDERED: VANCOMYCIN 1,000 MG in DEXTROSE 5%-WATER - 250 ML IVPB ONE (08:46)
[2018-09-12 08:58] LABS: WHITE BLOOD COUNT 1.9 K/mm3 (4.0-10.0)
[2018-09-12 09:05] LABS: BILIRUBIN,TOTAL 0.8 mg/dL (0.2-1); CALCIUM 8.1 mg/dL (8.5-10.1); CREATININE 1.5 mg/dL (0.55-1.3); POTASSIUM 3.4 mmol/L (3.5-5.1); TOT PROT 7.2 g/dl (6.4-8.2)
[2018-09-12 09:40] LABS: INR 1.17 (0.83-1.09); PROTHROMBIN TIME (PATIENT) 13.8 SEC (9.7-13.0)
[2018-09-12 09:43] LABS: ACTIVATED PTT 27.5 SECONDS (25.2-36.5)
[2018-09-12] MEDS ORDERED: VANCOMYCIN 1 GRAM (PRE-DOCKED) 1,000 MG/250 ML BAG IVPB ONE (10:04)
[2018-09-12 10:57] LABS: ANISOCYTOSIS 1+; MACROCYTOSIS 1+; OVALOCYTE 1+; PLATELET ESTIMATE DECREASED; TEAR DROP CELLS 1+
[2018-09-12 13:19] LABS: EPI CELLS 1.2 /HPF (0-5/HPF); HYALINE CASTS 4 /lpf (0-8); URINE APPEARANCE CLOUDY; URINE BACTERIA 3788.4 /hpf (NEGATIVE); URINE BILIRUBIN NEGATIVE (NEGATIVE); URINE COLOR YELLOW; URINE GLUCOSE (UA) NEGATIVE (NEGATIVE); URINE KETONE 1+ (NEGATIVE); URINE LEUK ESTERASE NEGATIVE (NEGATIVE); URINE NITRITE POSITIVE (NEGATIVE); URINE PROTEIN 1+ (NEGATIVE); URINE RBC 2 /hpf (0-4); URINE WBC 5 /hpf (0-5)
[2018-09-12 13:51] LABS: YEAST NONE SEEN (NEGATIVE)
--- NOTE | 2018-09-12 15:04 | EKG ---
Test Reason : Blood Pressure : / mmHG Vent. Rate : 110 BPM Atrial Rate : 110 BPM P-R Int : 140 ms QRS Dur : 090 ms QT Int : 342 ms P-R-T Axes : 055 003 071 degrees QTc Int : 462 ms SINUS TACHYCARDIA NONSPECIFIC ST ABNORMALITY ABNORMAL ECG WHEN COMPARED WITH ECG OF 03-JAN-2018 09:39, PREMATURE ATRIAL COMPLEXES ARE NO LONGER PRESENT VENT. RATE HAS INCREASED BY 37 BPM Confirmed by ISIS BILLS, LAMAR ([id number]) on 09/12/2018 3:03:58 PM Referred By: Confirmed By:LAMAR MARINELLI MD
[2018-09-12] MEDS ORDERED: ACETAMINOPHEN 325 MG TABLET (FP) PO PRN (15:58)
[2018-09-12] MEDS ORDERED: SODIUM CHLORIDE 0.45% 1,000 ML IV SCH ×2 (16:00→16:44)
[2018-09-12] MEDS ORDERED: POTASSIUM CHLORIDE TABS 20 MEQ TABLET.ER (FP) PO ONE (16:00)
[2018-09-12] MEDS ORDERED: SODIUM CHLORIDE 1,000 ML IV SCH ×2 (16:45→23:19)
[2018-09-12] MEDS ORDERED: TBO-FILGRASTIM 480 MCG/0.8 ML DISP.SYRIN SQ SCH (16:45)
--- NOTE | 2018-09-12 16:46 | CONSULT ---
Consult - text type - Consultation Consultation Note: Patient is a 72M w/ a history of multiple myeloma, colon cancer s/p resection with rt. 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 He is lethargic and unable to provide detailed history. Per he has been coughing and feeling unwell for 3-4 days [facility] to [address] negative [address] a/p w/ contrast --no acute pathology. rt. hepatic dome mass Allergies/Adverse Reactions: Allergies Allergy/AdvReac Type Severity Reaction Status Date / Time No Known Allergies Allergy Verified 09/12/18 08:59 Home Medications: Ambulatory Orders Gabapentin 400 mg PO BID 10/04/16 Allopurinol 300 mg PO DAILY 10/21/17 Atorvastatin Ca [Lipitor] 40 mg PO HS 10/21/17 Cyanocobalamin (Vitamin B-12) [Vitamin B12] 2,500 mcg PO DAILY 10/21/17 Oxycodone HCl [Oxycontin] 10 mg PO PRN PRN 10/21/17 Pantoprazole Sodium [Protonix] 40 mg PO DAILY 10/21/17 Apixaban [Eliquis -] 5 mg PO BID #0 tablet 06/22/18 Furosemide 40 mg PO DAILY 06/22/18 Metoprolol Succinate 25 mg PO BID 06/22/18 PMH Cancer: Yes (liver metastais,colon,multiple myeloma) CVA: Yes Diabetes: Yes GI Disorders: Yes (acid reflux) HTN: Yes - Surgical History Abdominal Surgery: Yes (colectomy, liver surgeryy) Orthopedic Surgery: Yes (LEFT KNEE ARTHROSCOPY) - Immunization History Immunization Up to Date: Yes - Suicide/Smoking/Psychosocial Hx Smoking History: Former smoker Vital Signs Temp Pulse Resp BP Pulse Ox 104.2 F H 115 H 17 131/75 99 09/12/18 08:02 09/12/18 07:56 09/12/18 07:56 09/12/18 07:56 09/12/18 08:03 Cor: RSR, No murmurs, No gallops Lungs: Clear to P&A Abd: Soft, Normal bowel sounds, No organomegaly Ext:No significant edema Abnormal Lab Results 09/12/18 09/12/18 09/12/18 08:15 08:15 08:15 WBC 1.9 L* RBC 3.19 L Hgb 8.7 L Hct 27.4 L MCHC 31.6 L RDW 19.3 H Plt Count 54 L D Neutrophils % 89.2 H D Neutrophils % (Manual) 87.1 H Monocytes % 1.3 L D Monocytes % (Manual) 1 L PT with INR 13.80 H INR 1.17 H VBG pH 7.50 H POC VBG pCO2 25.8 L VBG HCO3 19.9 L VBG O2 Sat (Jordan) 62.2 L VBG Base Excess -2.2 L Potassium Creatinine Random Glucose Calcium Albumin Urine Protein Urine Ketones Urine Nitrite 09/12/18 09/12/18 08:15 13:00 WBC RBC Hgb Hct MCHC RDW Plt Count Neutrophils % Neutrophils % (Manual) Monocytes % Monocytes % (Manual) PT with INR INR VBG pH POC VBG pCO2 VBG HCO3 VBG O2 Sat (Jordan) VBG Base Excess Potassium 3.4 L Creatinine 1.5 H Random Glucose 158 H Calcium 8.1 L Albumin 3.0 L Urine Protein 1+ H Urine Ketones 1+ H Urine Nitrite Positive H Home Medication List Medication Instructions Recorded Confirmed Type Gabapentin 400 mg PO BID 10/04/16 09/12/18 History Allopurinol 300 mg PO DAILY 10/21/17 09/12/18 History Atorvastatin Ca [Lipitor] 40 mg PO HS 10/21/17 09/12/18 History Cyanocobalamin (Vitamin B-12) 2,500 mcg PO DAILY 10/21/17 09/12/18 History [Vitamin B12] Oxycodone HCl [Oxycontin] 10 mg PO PRN PRN 10/21/17 09/12/18 History Pantoprazole Sodium [Protonix] 40 mg PO DAILY 10/21/17 09/12/18 History Furosemide 40 mg PO DAILY 06/22/18 09/12/18 History Metoprolol Succinate 25 mg PO BID 06/22/18 09/12/18 History Active Medications Generic Name Dose Route Start Last Admin Trade Name Freq PRN Reason Stop Dose Admin Acetaminophen 1,000 mg 09/12/18 17:32 09/12/18 22:28 Ofirmev Injection - IVPB 1,000 mg Q6H PRN Administration FEVER Allopurinol 300 mg 09/13/18 10:00 Zyloprim - PO DAILY JAMIE Atorvastatin Calcium 40 mg 09/12/18 22:00 09/12/18 21:05 Lipitor - PO 40 mg HS JAMIE Administration Gabapentin 400 mg 09/12/18 22:00 09/12/18 21:05 Neurontin - PO 400 mg BID JAMIE Administration Cefepime HCl 2 gm in 50 mls @ 100 mls/hr 09/12/18 15:35 Maxipime 2gm Ivpb (Premix) IVPB Q8H-IV JAMIE Protocol Cefepime HCl 2 gm in 50 mls @ 100 mls/hr 09/12/18 15:45 09/12/18 18:09 Maxipime 2gm Ivpb (Premix) IVPB 09/13/18 15:44 Not Given Q8H-IV JAMIE Protocol Vancomycin HCl 1 gm in 200 mls @ 133.333 mls/hr 09/12/18 22:00 Vancomycin 1 Gm Premix - IVPB BID JAMIE Vancomycin HCl 1 gm in 200 mls @ 133.333 mls/hr 09/12/18 21:00 09/12/18 21:05 Vancomycin 1 Gm Premix - IVPB 09/13/18 10:29 133.333 mls/hr Q12H JAMIE Administration Metronidazole 500 mg in 100 mls @ 100 mls/hr 09/12/18 18:00 09/12/18 18:20 Flagyl 500mg Premixed Ivpb - IVPB 100 mls/hr Q8H-IV JAMIE Administration Sodium Chloride 1,000 mls @ 125 mls/hr 09/12/18 16:45 09/12/18 16:56 Normal Saline - IV 125 mls/hr ASDIR JAMIE Administration Metoprolol Succinate 25 mg 09/12/18 22:00 09/12/18 21:06 Toprol Xl - PO 25 mg BID JAMIE Administration Pantoprazole Sodium 40 mg 09/13/18 10:00 Protonix Iv IVPB DAILY JAMIE Tbo-Filgrastim 480 mcg 09/12/18 16:45 09/12/18 18:53 Granix - SQ 480 mcg DAILY JAMIE Administration a/p The pt is a 72M w/ a history of multiple myeloma, colon cancer s/p resection but suspected liver mets (C1 FOLFIRI 09/06/18), HTN, a-fib (eliquis), and 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 CT head negative Ct a/p w/ contrast --no acute pathology. rt. hepatic dome mass Febrile to 104 C1 D7 FOLFIRI ? pneumonia ? aspiration Sepsis Will check cultures/ stool studies Broad spectrum antibiotics --vancomycin/cefepime/flagyl neupogen prophylaxis IV fluids discussed with and nursing staff
[2018-09-12] MEDS ORDERED: PT OWN MED DRAWER 7, Y5N ONE ×2 (17:28→20:44)
[2018-09-12] MEDS: CEFEPIME HCL/D5W 2 GM/50 ML BAG IVPB SCH ×2 (17:32→18:09)
[2018-09-12] MEDS ORDERED: CEFEPIME HCL/D5W 2 GM/50 ML BAG IVPB SCH (18:00)
[2018-09-12] MEDS ORDERED: VANCOMYCIN 1 GM in D5W (PRE-DOCKED) 1,000 MG/250 ML IVPB SCH (21:00)
[2018-09-12] MEDS: VANCOMYCIN 1 GM PREMIX - 1 GM/200 ML BAG IVPB SCH (21:05)
[2018-09-12] MEDS: GABAPENTIN 400 MG CAPSULE (FP) PO SCH (21:05)
[2018-09-12] MEDS: ATORVASTATIN CA 40 MG TABLET (FP) PO SCH (21:05)
[2018-09-12] MEDS: metoPROLOL SUCCINATE 25 MG TAB.SR.24H (FP) PO SCH (21:06)
[2018-09-12] MEDS ORDERED: APIXABAN 5 MG TABLET PO SCH (22:00)
[2018-09-12] MEDS: ACETAMINOPHEN 1000 MG/100 ML VIAL (NON FORMULARY) IVPB PRN (22:28)
[2018-09-12] MEDS ORDERED: SODIUM CHLORIDE 1,000 ML IV STA (23:36)
[2018-09-13] MEDS ORDERED: SODIUM CHLORIDE 1,000 ML IV STA (00:27)
[2018-09-13] MEDS: SODIUM CHLORIDE 1,000 ML IV SCH ×2 (00:27→21:49)
[2018-09-13] MEDS: CEFEPIME HCL/D5W 2 GM/50 ML BAG IVPB SCH ×3 (01:29→10:58)
[2018-09-13] MEDS: ACETAMINOPHEN 1000 MG/100 ML VIAL (NON FORMULARY) IVPB PRN ×2 (06:23→17:30)
[2018-09-13 07:16] LABS: BASO % 0.3 % (0-2.0); EOS % 0.3 % (0-4.5); HEMATOCRIT 24.7 % (35.4-49); HEMOGLOBIN 7.6 GM/dL (11.7-16.9); LYMPH % 8.6 % (8-40); MCHC 30.9 g/dl (32.0-35.9); MEAN CELL VOLUME 87.5 fl (80-96); MEAN PLT VOLUME 8.8 fl (7.5-11.1); MONO % 1.6 % (3.8-10.2); NEUT % 89.2 % (42.8-82.8); RBC 2.83 M/mm3 (4.00-5.60); RDW 19.3 % (11.9-15.9); WHITE BLOOD COUNT 2.7 K/mm3 (4.0-10.0)
[2018-09-13 07:51] LABS: PLATELET COUNT 30 K/MM3 (134-434)
[2018-09-13 08:10] LABS: ALBUMIN 2.5 g/dl (3.4-5.0); BILIRUBIN,TOTAL 0.7 mg/dL (0.2-1); CALCIUM 7.5 mg/dL (8.5-10.1); CREATININE 1.3 mg/dL (0.55-1.3); POTASSIUM 3.9 mmol/L (3.5-5.1); TOT PROT 6.1 g/dl (6.4-8.2)
--- NOTE | 2018-09-13 09:13 | CONSULT ---
Consult Consult Specialty:: Pulm/CCM Referred by:: Dr. Sim Reason for Consultation:: suspected septic shock - History of Present Illness History of Present Illness: 72 M h/o multiple myeloma, colon cancer s/p resection with liver metastasis started chemotherapy on 09/06/18, HTN, a-fib on eliquis, and DM admitted to med- surg for suspected neutropenic fever. ICU is consulted for suspected septic shock in the setting of neutropenic fever. Patient stated that he started FOLFIRI on 09/06 and completed on 09/07. He started feeling unwell on 09/08 where he started having productive cough and watery diarrhea. After admission, he's found to have gram +ve bacteremia and started on vanco, cefepime and flagyl. CXR and CT a/p are unremarkable. Cdiff is pending. 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 Cardio/Vascular: Yes: AFIB, HTN Gastrointestinal: Yes: Other (newly diagnosed colon ca) Psych: Yes: Depression Musculoskeletal: Yes: Chronic low back pain, Osteoarthritis Endocrine: Yes: Diabetes Mellitus Additional Medical History: glaucoma with decreased vision and need for surgeryleft eye - Alcohol/Substance Use Hx Alcohol Use: No History of Substance Use: reports: None - Smoking History Smoking history: Former smoker Have you smoked in the past 12 months: No If you are a former smoker, when did you quit?: 1975 - Social History Usual Living Arrangement: With Spouse (Currently residing in [facility]) ADL: Independent History of Recent Travel: No Home Medications - Allergies Allergies/Adverse Reactions: Allergies Allergy/AdvReac Type Severity Reaction Status Date / Time No Known Allergies Allergy Verified 09/12/18 08:59 - Home Medications Home Medications: Ambulatory Orders Gabapentin 400 mg PO BID 10/04/16 Allopurinol 300 mg PO DAILY 10/21/17 Atorvastatin Ca [Lipitor] 40 mg PO HS 10/21/17 Cyanocobalamin (Vitamin B-12) [Vitamin B12] 2,500 mcg PO DAILY 10/21/17 Oxycodone HCl [Oxycontin] 10 mg PO PRN PRN 10/21/17 Pantoprazole Sodium [Protonix] 40 mg PO DAILY 10/21/17 Apixaban [Eliquis -] 5 mg PO BID #0 tablet 06/22/18 Furosemide 40 mg PO DAILY 06/22/18 Metoprolol Succinate 25 mg PO BID 06/22/18 Family Disease History - Family Disease History Family Disease History: Other: Father (: 68: lung Ca), Mother (: 60's: leukemia ), Brother (1, : 65: colon cancer), Son (1, healthy), Daughter (1 with SLE) Review of Systems - Review of Systems Constitutional: reports: Fever, Weakness Cardiovascular: denies: Chest Pain, Shortness of Breath Respiratory: reports: Cough Gastrointestinal: reports: No Symptoms Genitourinary: reports: No Symptoms Neurological: denies: Confusion Physical Exam Vital Signs: Vital Signs Temperature 100.2 F H 09/13/18 08:47 Pulse Rate 88 09/13/18 08:47 Respiratory Rate 22 H 09/13/18 08:47 Blood Pressure 115/60 09/13/18 08:47 O2 Sat by Pulse Oximetry (%) 97 09/12/18 21:00 Constitutional: Yes: Calm. No: Mild Distress Cardiovascular: Yes: Regular Rate and Rhythm, S1, S2. No: Murmur Respiratory: Yes: CTA Bilaterally Gastrointestinal: Yes: Normal Bowel Sounds, Soft Edema: No Neurological: Yes: Alert, Oriented Labs: CBC, BMP 09/13/18 06:00 09/13/18 06:00 Assessment/Plan 72 M h/o multiple myeloma, colon cancer s/p resection with liver metastasis started chemotherapy on 09/06/18, HTN, a-fib on eliquis, and DM admitted to med- surg for suspected neutropenic fever now being evaluated for suspected septic shock. A: frebile neutropenia sepsis 2/2 MRSA bacteremia colon CA s/p resection on chemo multiple myeloma a-fib on eliquis DM P: - would consider removing the chemo port as it could be the source of bacteremia0 - responded to fluid resusitation, bolus NS PRN - hold toprol XL - febrile with MRSA bacteremia, ID onboard and c/w vanco and cefepime Recommendation: consider removing the chemo port. would cont. with current empiric abx coverage and fluid resusitation as patient's BP responded appropriately to it. Pt doesn't need ICU level of care at the moment but we will cont to follow the patient closely. Maximilian Arora PGY3 ICU Resident [id number] Visit type - Emergency Visit Emergency Visit: No - New Patient This patient is new to me today: Yes Date on this admission: 09/13/18 - Critical Care Critical Care patient: No
[2018-09-13] MEDS: GABAPENTIN 400 MG CAPSULE (FP) PO SCH ×3 (09:46→21:48)
[2018-09-13] MEDS: metoPROLOL SUCCINATE 25 MG TAB.SR.24H (FP) PO SCH ×2 (09:46→21:48)
[2018-09-13] MEDS: ALLOPURINOL 300 MG TABLET (FP) PO SCH ×2 (09:46→19:33)
[2018-09-13] MEDS: PANTOPRAZOLE SODIUM 40 MG VIAL IVPB SCH (09:47)
[2018-09-13] MEDS ORDERED: PANTOPRAZOLE 40 MG TABLET (FP) PO SCH (10:00)
--- NOTE | 2018-09-13 10:46 | HP ---
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 The patient thought he would feels better by today but continues to have generalized weakness/malaise. Additionally, since receiving his last treatments he reports burning epigastric abdominal pain that is non-radiating, intermittent, not exacerbated or alleviated by anything he can identify. He endorses associated vomiting for a couple of days after CTX but none today. He reports a cough since the time of his last treatment as well that is intermittently productive with whitish sputum. The pt states he also had a port placed on 09/07/18 but denies the surrounding area being tender or red that he has noticed. He reports usually having GI upset and malaise after treatments but he feels his symptoms more intensely today. Denies fevers at home, [place]CD[place]LL, vision changes, chest pain, SOB, back pain, dysuria, hematuria, diarrhea, or blood in his stool. 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 Cardiovascular: Yes: AFIB, HTN Gastrointestinal: Yes: Other (newly diagnosed colon ca) Heme/Onc: Yes: Cancer Psych: Yes: Depression Musculoskeletal: Yes: Chronic low back pain, Osteoarthritis Endocrine: Yes: Diabetes Mellitus - Smoking History Smoking history: Former smoker Have you smoked in the past 12 months: No If you are a former smoker, when did you quit?: 1975 - Alcohol/Substance Use Hx Alcohol Use: No History of Substance Use: reports: None - Social History ADL: Independent History of Recent Travel: No Home Medications - Allergies Allergies/Adverse Reactions: Allergies Allergy/AdvReac Type Severity Reaction Status Date / Time No Known Allergies Allergy Verified 09/12/18 08:59 - Home Medications Home Medications: Ambulatory Orders Gabapentin 400 mg PO BID 10/04/16 Allopurinol 300 mg PO DAILY 10/21/17 Atorvastatin Ca [Lipitor] 40 mg PO HS 10/21/17 Cyanocobalamin (Vitamin B-12) [Vitamin B12] 2,500 mcg PO DAILY 10/21/17 Oxycodone HCl [Oxycontin] 10 mg PO PRN PRN 10/21/17 Pantoprazole Sodium [Protonix] 40 mg PO DAILY 10/21/17 Apixaban [Eliquis -] 5 mg PO BID #0 tablet 06/22/18 Furosemide 40 mg PO DAILY 06/22/18 Metoprolol Succinate 25 mg PO BID 06/22/18 Family Disease History - Family Disease History Family Disease History: Other: Father (: 68: lung Ca), Mother (: 60's: leukemia ), Brother (1, : 65: colon cancer), Son (1, healthy), Daughter (1 with SLE) Review of Systems - Review of Systems Constitutional: reports: Chills, Fever, Loss of Appetite, Weakness Cardiovascular: denies: Chest Pain, Palpitations, Shortness of Breath Respiratory: denies: Cough, SOB Gastrointestinal: reports: Abdominal Pain, Diarrhea, Nausea, Vomiting Genitourinary: denies: Burning, Discharge, Dysuria Physical Examination Vital Signs: Vital Signs Temperature 100.2 F H 09/13/18 08:47 Pulse Rate 88 09/13/18 08:47 Respiratory Rate 22 H 09/13/18 08:47 Blood Pressure 115/60 09/13/18 08:47 O2 Sat by Pulse Oximetry (%) 97 09/12/18 21:00 Constitutional: Yes: No Distress, Calm Cardiovascular: Yes: Regular Rate and Rhythm Respiratory: Yes: CTA Bilaterally Gastrointestinal: Yes: Normal Bowel Sounds, Soft, Tenderness Edema: No Neurological: Yes: Alert, Oriented Labs: CBC, BMP 09/13/18 06:00 09/13/18 06:00 Imaging - Results Cat Scan: Report Reviewed EKG: Image Reviewed Problem List - Problems (1) Neutropenic sepsis Code(s): A41.9 - SEPSIS, UNSPECIFIED ORGANISM; D70.9 - NEUTROPENIA, UNSPECIFIED (2) Atrial fibrillation Code(s): I48.91 - UNSPECIFIED ATRIAL FIBRILLATION Qualifiers: Atrial fibrillation type: chronic Qualified Code(s): I48.2 - Chronic atrial fibrillation (3) History of colon cancer Code(s): Z85.038 - PERSONAL HISTORY OF MALIGNANT NEOPLASM OF LARGE INTESTINE (4) Multiple myeloma Code(s): C90.00 - MULTIPLE MYELOMA NOT HAVING ACHIEVED REMISSION Qualifiers: Multiple myeloma remission status: unspecified Qualified Code(s): C90.00 - Multiple myeloma not having achieved remission (5) Sepsis Code(s): A41.9 - SEPSIS, UNSPECIFIED ORGANISM Qualifiers: Sepsis type: sepsis due to unspecified organism Qualified Code(s): A41.9 - Sepsis, unspecified organism (6) Anemia Code(s): D64.9 - ANEMIA, UNSPECIFIED Qualifiers: Anemia type: unspecified type Qualified Code(s): D64.9 - Anemia, unspecified Assessment/Plan PLAN Cultures all positive including from portacath ID eval noted urine cultures positive on broad spectrum antibiotics Vascular eval for removal of portacath-- need to coordinate about administering platelets hold Eliquis for now as platelets are low check stool studies-- cdiff, culture prognosis guarded iv fluids
--- NOTE | 2018-09-13 10:53 | PN ---
Progress Note (short form) - Note Progress Note: ID CONSULT DICTATED STAPH BACTEREMIA / SEPSIS ? INFECTED PORT FEVER/LEUKOPENIA METASTATIC COLON CA S/P CHEMO MYELOMA IN REMISSION AZOTEMIA PENDING C/S EMPIRIC VANCOMYCIN/ CEFEPIME VASC SURG EVAL ? PORT REMOVAL
[2018-09-13] MEDS: VANCOMYCIN 1 GM PREMIX - 1 GM/200 ML BAG IVPB SCH ×2 (10:55→10:59)
[2018-09-13] MEDS ORDERED: CEFEPIME 2 GM in DEXTROSE 5%-WATER 100 ML IVPB SCH (11:15)
--- NOTE | 2018-09-13 11:46 | CONS ---
DATE OF CONSULTATION: DATE OF DICTATION: 09/13/2018 INFECTIOUS DISEASE CONSULTATION HISTORY OF PRESENT ILLNESS: This is a 72-year-old male history of multiple myeloma in remission, history of colon cancer, status post right hemicolectomy, and chemotherapy with liver metastasis now evaluated for fever. The patient was admitted to the hospital on September 12, 2018, after a fall at home. According to the notes, he had not been feeling well since receiving chemotherapy on September 06, 2018. The patient had undergone a port placement on September 05, 2018. He received a cycle of chemotherapy the following day. Since then, he has complained of generalized weakness, malaise, dry cough, retching, nausea and vomiting x1, and epigastric pain. He was brought to the emergency room where he was noted to have fever 104.2 and a white blood cell count of 1.9. Cultures were obtained and are now positive for multiple bottles of gram-positive cocci in clusters. Patient complains of tenderness at the port site. He denies any erythema or purulent drainage. He denies any chest pain, shortness of breath. Denies dysuria or hematuria. No complaints of diarrhea. No infected skin lesions reported. 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 PAST SURGICAL HISTORY: Status post right hemicolectomy, port placement September 05, 2018, and right liver lobe resection. ALLERGIES: No known allergies. MEDICATIONS: Neurontin, allopurinol, Lipitor, Oxycontin, Protonix, Eliquis, Lasix, metoprolol. SOCIAL HISTORY: Resides at home in the community. Former smoker. SYSTEM REVIEW: Neurologic: No loss of consciousness, seizure activity, focal weakness. Cardiac: Negative chest pain or palpitations. Respiratory: Positive for dry cough. Gastrointestinal: Positive for vomiting. No diarrhea. Genitourinary: Negative for urinary tract infection. LABORATORY DATA: White count on admission 1.9, presently 2.7, and 89 neutrophils, 8 lymphocytes, 1 monocyte. Absolute neutrophil count 2.4. Hemoglobin 7.6, hematocrit 24.7, platelet count 30. BUN 14, creatinine 1.3. Total bilirubin 0.7, alkaline phosphatase 70, AST 42. Urinalysis: 5 white cells. Blood cultures: Gram-positive cocci clusters in multiple blood culture bottles. CHEST X-RAY: Negative. PHYSICAL EXAMINATION: General: He is awake. He is chronically ill-appearing, in no acute distress. Vital Signs: Temperature 100.2, T-max 104.2, blood pressure 115/60, pulse 88 regular, respirations 22 per minute. Eyes: Sclerae anicteric. Heart: Sounds S1, S2, irregular. Lungs: Clear bilaterally. Port site with no erythema or tenderness. Abdomen: Soft. No tenderness elicited. No mass, rebound, or rigidity. Extremities: Negative for edema. Negative Dutch sign. IMPRESSION: 1. Status post fall. 2. Staphylococcus bacteremia/sepsis. 3. Rule out infected port. 4. Fever, leukopenia. 5. Pancytopenia. 6. Metastatic colon cancer status post chemotherapy. 7. Azotemia. RECOMMENDATIONS: Await culture results. Continue vancomycin and cefepime. Vascular Surgery evaluation for probable port removal. Continue IV fluid hydration and supportive measures. Neutropenic precautions. Will follow. Thank you for the kind referral. VENKAT RENEE M.D. [id number]
--- NOTE | 2018-09-13 13:41 | CONSULT ---
Admitting History and Physical - Admission Chief Complaint: Pt. 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 Pt. with c/o vomitting and coughing with occasionhal whitish sputum, post his most recent CTX treatment. Pt. also reports an intemittent/burning epigastric abdominal pain. 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 Cardiovascular: Yes: AFIB, HTN Gastrointestinal: Yes: Other (newly diagnosed colon ca) Heme/Onc: Yes: Cancer Psych: Yes: Depression Musculoskeletal: Yes: Chronic low back pain, Osteoarthritis Endocrine: Yes: Diabetes Mellitus - Smoking History Smoking history: Former smoker Have you smoked in the past 12 months: No If you are a former smoker, when did you quit?: 1975 - Alcohol/Substance Use Hx Alcohol Use: No History of Substance Use: reports: None - Social History ADL: Independent History of Recent Travel: No History - Admission Reason For Visit: ATRIAL FIBRILLATION, SEPSIS, MULTIPLE MYELOMA - Hearing Hearing: Normal Speech Evaluation - Communication Primary Language: ALBANIAN - Speech Characteristics Articulation: Yes: Precise - Language/Auditory Comprehension Observation: Able to respond to yes/no queries: Yes, Yes/No Confusion: No, Comprehends Conversational Speech: Yes - Language/Verbal Expression Able to Respond to Simple Queries: Yes: WNL Able to Communicate Wants and Needs: Yes: WNL Functional Communication Status: Yes: WNL Aware of Errors: Yes Attention: Yes: Intact - Memory/Perception care home Memory: Yes: WNL Short Term Memory: Yes: WNL - Swallow Evaluation/Bedside Assessment Current Nutritional Intake: Soft, Thin Liquids Oral Secretions: Yes: WFL Tracheostomy Present: No Patient on Ventilator: No Dentition: Yes: Adequate Facial Symmetry at Rest: Facial Droop Left (Facial assymetry noted at rest. Good movement noted on phonation.) Facial Symmetry on Retraction: Facial Droop Left Facial Movement: Controlled Sensation: Reduced Left Jaw Position: Open at Rest Pucker Lips: Normal, Droops Left Smile: Droops Left Lingual Movement: Deviates Left, Reduced Tip Elevation Lingual Speed of Movement: Reduced Lingual Movement Strgth Against Opposition: Reduced Soft Palate Description: Normal Color Hard Palate Description: Normal Color Gag Reflex: Weak Velopharyngeal Movement: Normal Laryngeal Elevation: Impaired Laryngeal Movement: Unable to Palpate Needs Assistance: No Rate of Intake: WFL Bolus Size: Small Labial Seal: WFL Chewing: WFL Oral Prep Time: WFL A-P Transit: WFL Timing of Swallow: WFL Coughing/Throat Clear: Yes (Pt. with immediate cough on first trial of thin liquid.) Other Findings/Remarks: Pt. with low tolerance of PO intake due to immediate coughing, wretching and gagging. Pt. fearful of PO intake due to wretching, gagging, choking and coughing. Recommend that Pt. remains NPO until Modified Barium Swalllow is performed, in order to better assess swallow function to determine least restrictive means of alimentation, for adequate nutrition and hydration. Recommendations - Speech Evaluation, Impression/Plan Impression: Receptive and Expressive communiciation skills judged to be functional at this time. Recommended Therapies: Swallowing Short Term Goals: MBS for an objective study of swallow function and to determine least restrictive means of alimentation for adequate nutrition and hydration. Recommended Frequency for Therapy: Once a Week - Disposition Discharge to: To be Determined - Dysphagia Impressions/Plan Swallowing Skills: Impaired Dysphagia Impressions: Profound Impairment, Risk of Aspiration *Silent aspiration: cannot be R/O at bedside Dysphagia Treatment Plan: Other (TBD) Dysphagia Evaluation Summary: Pt. with low tolerance of PO intake due to immediate coughing, wretching and gagging. Pt. fearful of PO intake due to wretching, gagging, choking and coughing. Recommend Modified Barium Swalllow for objective assessment of swallow function, in order to determine least restrictive means of alimentation, for adequate nutrition and hydration. Recommend that Pt. remains NPO until MBS is performed. Recommendations: Modified Barium Swallow (For objective assessment of swallow function and to determinde least restrictive means of alimentation for [id number] nutrition and hydration.) - Recommendations Diet Consistency: NPO (Pt. to remain NPO pending results of MBS. Pt. at risk for aspiration. Minimal to no tolerance of PO intake due to immediate coughing , wretching and gagging.)
[2018-09-13] MEDS ORDERED: CEFEPIME HCL 2 GM VIAL (RESTRICTED TO ID) ONE ×2 (16:58→20:19)
[2018-09-13] MEDS ORDERED: DEXTROSE 5%-WATER 100 ML IVPB ONE ×2 (16:58→20:18)
[2018-09-13] MEDS: CEFEPIME 2 GM in DEXTROSE 5%-WATER 100 ML IVPB SCH (17:31)
--- NOTE | 2018-09-13 17:36 | PN ---
Physical Exam: SUBJECTIVE: Patient seen and examined Patient resting in bed, nad. fever 102.4 today, hemodynamically stable. states he feels very weak, cant tolerate po due to nausea. + cough and malaise. reports f/c. OBJECTIVE: Vital Signs Period Temp Pulse Resp BP Sys/Max Pulse Ox Last 24 Hr 98.4 F-102.4 F 86-106 20-22 100-152/51-74 97-97 GENERAL: The patient is awake, alert, and fully oriented, in no acute distress, pale, slightly lethargic. HEAD: Normal with no signs of trauma. EYES: PERRL, extraocular movements intact ENT:moist mucous membranes. NECK: supple no adenopathy LUNGS: Breath sounds equal, clear to auscultation bilaterally HEART: Regular rate and rhythm, S1, S2 ABDOMEN: Soft, nontender, nondistended, normoactive bowel sounds, NEUROLOGICAL: Cranial nerves II through XII grossly intact. Normal speech, gait not observed. PSYCH: Normal mood, normal affect. SKIN: Warm, dry Laboratory Results - last 24 hr 09/12/18 09/13/18 09/13/18 17:45 00:40 06:00 WBC 2.7 L RBC 2.83 L Hgb 7.6 L Hct 24.7 L MCV 87.5 MCH 27.0 MCHC 30.9 L RDW 19.3 H Plt Count 30 L* D MPV 8.8 Absolute Neuts (auto) 2.4 Neutrophils % 89.2 H Lymphocytes % 8.6 Monocytes % 1.6 L Eosinophils % 0.3 D Basophils % 0.3 Nucleated RBC % 0 Sodium Potassium Chloride Carbon Dioxide Anion Gap BUN Creatinine Est GFR (CKD-EPI)AfAm Est GFR (CKD-EPI)NonAf Random Glucose Lactic Acid 1.2 1.0 Calcium Total Bilirubin AST ALT Alkaline Phosphatase Total Protein Albumin 09/13/18 06:00 WBC RBC Hgb Hct MCV MCH MCHC RDW Plt Count MPV Absolute Neuts (auto) Neutrophils % Lymphocytes % Monocytes % Eosinophils % Basophils % Nucleated RBC % Sodium 139 Potassium 3.9 Chloride 112 H Carbon Dioxide 17 L Anion Gap 10 BUN 14 Creatinine 1.3 Est GFR (CKD-EPI)AfAm 63.18 Est GFR (CKD-EPI)NonAf 54.51 Random Glucose 134 H Lactic Acid Calcium 7.5 L Total Bilirubin 0.7 AST 42 H ALT 30 Alkaline Phosphatase 70 Total Protein 6.1 L Albumin 2.5 L Active Medications Generic Name Dose Route Start Last Admin Trade Name Freq PRN Reason Stop Dose Admin Acetaminophen 1,000 mg 09/12/18 17:32 09/13/18 17:30 Ofirmev Injection - IVPB 1,000 mg Q6H PRN Administration FEVER Allopurinol 300 mg 09/13/18 10:00 09/13/18 09:46 Zyloprim - PO 300 mg DAILY JAMIE Administration Atorvastatin Calcium 40 mg 09/12/18 22:00 09/12/18 21:05 Lipitor - PO 40 mg HS JAMIE Administration Gabapentin 400 mg 09/12/18 22:00 09/13/18 09:46 Neurontin - PO 400 mg BID JAMIE Administration Sodium Chloride 1,000 mls @ 125 mls/hr 09/12/18 23:36 09/13/18 00:27 Normal Saline - IV 125 mls/hr ASDIR JAMIE Administration Vancomycin HCl 1,000 mg in 250 mls @ 166.667 mls/hr 09/13/18 21:00 Vancomycin (Pre-Docked) IVPB Q12H JAMIE Protocol Cefepime HCl 2 gm/ Dextrose 100 mls @ 100 mls/hr 09/13/18 18:00 09/13/18 17: 31 IVPB 100 mls/hr Q8H-IV JAMIE Administration Protocol Metoprolol Succinate 25 mg 09/12/18 22:00 09/13/18 09:46 Toprol Xl - PO Not Given BID JAMIE Pantoprazole Sodium 40 mg 09/13/18 10:00 09/13/18 09:47 Protonix Iv IVPB 40 mg DAILY JAMIE Administration Ranitidine HCl 150 mg 09/13/18 22:00 Zantac - PO BID JAMIE ASSESSMENT/PLAN: This is a 72 yo M with PMH of MM, colon CA s/p resection w liver mets on FOLFIRI 09/06/18, HTN, AF on eliquis and DM, who presented due to cough, malaise , and fever, abdominal pain, and s/p fall, treated for bacteremia and UTI Ct a/p w cont: R hepatic dome mass sepsis urinary source bacteremia leukopenia due to infection vs folfiri -neupogen ppx -broad spectrum abx, IVF, f/u cultures -further recs per ID Visit type - Emergency Visit Emergency Visit: Yes ED Registration Date: 09/12/18 Care time: The patient presented to the Emergency Department on the above date and was hospitalized for further evaluation of their emergent condition. - New Patient This patient is new to me today: No - Critical Care Critical Care patient: No - Discharge Referral Referred to [facility] Med P.C[facility] No
--- NOTE | 2018-09-13 17:57 | PN ---
Teaching Attending Note Name of Resident: Leann Burrows ATTENDING PHYSICIAN STATEMENT I saw and evaluated the patient. I reviewed the resident's note and discussed the case with the resident. I agree with the resident's findings and plan as documented. SUBJECTIVE: Patient seen and examined Feels miserable Flushed Relatively immobile in bed Febrile with positive blood cultures and urine cultures suggesting MRSA Last Vital Signs Temp Pulse Resp BP Pulse Ox 102.4 F H 96 H 20 125/66 97 09/13/18 17:02 09/13/18 17:02 09/13/18 17:02 09/13/18 17:02 09/13/18 09:00 HEENT: SAY, EOM Intact Oropharynx: No thrush, No mucositis, missing dentures Cor: RSR, No murmurs, No gallops Lungs: Clear to P&A Abd: Soft, Normal bowel sounds, No organomegaly Ext:No significant edema Skin: No rashes, Integument intact CBC, BMP 09/13/18 06:00 09/13/18 06:00 Current Medications Generic Name Dose Route Start Last Admin Trade Name Freq PRN Reason Stop Dose Admin Acetaminophen 1,000 mg 09/12/18 17:32 09/13/18 17:30 Ofirmev Injection - IVPB 1,000 mg Q6H PRN Administration FEVER Allopurinol 300 mg 09/13/18 10:00 09/13/18 09:46 Zyloprim - PO 300 mg DAILY [facility] Administration Atorvastatin Calcium 40 mg 09/12/18 22:00 09/12/18 21:05 Lipitor - PO 40 mg HS [facility] Administration Gabapentin 400 mg 09/12/18 22:00 09/13/18 09:46 Neurontin - PO 400 mg BID [facility] Administration Sodium Chloride 1,000 mls @ 125 mls/hr 09/12/18 23:36 09/13/18 00:27 Normal Saline - IV 125 mls/hr ASDIR [facility] Administration Vancomycin HCl 1,000 mg in 250 mls @ 166.667 mls/hr 09/13/18 21:00 Vancomycin (Pre-Docked) IVPB Q12H [facility] Protocol Cefepime HCl 2 gm/ Dextrose 100 mls @ 100 mls/hr 09/13/18 18:00 09/13/18 17: 31 IVPB 100 mls/hr Q8H-IV [facility] Administration Protocol Metoprolol Succinate 25 mg 09/12/18 22:00 09/13/18 09:46 Toprol Xl - PO Not Given BID J[facility] Pantoprazole Sodium 40 mg 09/13/18 10:00 09/13/18 09:47 Protonix Iv IVPB 40 mg DAILY [facility] Administration Ranitidine HCl 150 mg 09/13/18 22:00 Zantac - PO BID [facility] Impression: Colon ca Chemotherapy Multiple myeloma - s/p transplant Pancytopenia Neuropathy Positive blood/urine cultures Continue antibiotics per ID may need transfusion therapy May need port removal OBJECTIVE: ASSESSMENT AND PLAN:
--- NOTE | 2018-09-13 18:57 | CONSULT ---
Consult - text type - Consultation Consultation Note: NEUROLOGY CONSULTATION is greatly appreciated: This 72yo RH m man with h/o is well-known to me for Rx of migraines, RLS, and CIDP. W/U revealed MUGUS and bone marrow biopsy showed Multiple myeloma. Now has second primary colonic CA, s/p resection but known liver mets. Recently had portal placed for Chemo with 5-FU and irinotecan given 09/04/18. Once home developed nausea, weakness, fell and couldn't get up. Recently given IVIg for CIDP. Also on: Gabapentin 400 mg PO BID; Allopurinol 300 ; Atorvastatin; Oxycodone; Pantoprazole; Apixaban; Furosemide; and Metoprolol. Chronic prednisone Rx. On admission Pt was confused with temps to 104F; WBC=1.9; Platelets down to 30 Patient c/o difficult and painful swallowing CT of head (reviewed): Moderate, diffuse atrophy. MIO: Cushingoid. flat pink skin rash (fungal vs. drug reaction). No evidence of external head trauma. Oropharynx clear. NEURO: Awake, alert, recognizes me. Ox [facility], 09/13/18. . Speech fluent CN II-XII: Normal Motor: No drift. Arms and proximal legs have normal strength. Ankle DF 4-/5 B/L. Areflexic. Plantars silent. Coord: No FTN dystaxia. Mild rhythmic sustention tremor Left. Min cogwheeling on left Sensory: Decreased vib, position to ankles IMP: Moderate, distal, sensorimotor peripheral neuropathy c/w CIDP (recently s/ p IVIg) Transient confusion due to Toxic-metabolic encephalopathy (Fever/ infection) Dysphagia- probably NOT on a neurological basis (this time). R/O Thrush esophagitis. Plan: Observe after IVIg for improved strength. Check B12, TSH, T4. Continue Rx for infection/neutropenia/thrombocytopenia R/O Thrush esophagitis or treat empirically Mobilize OO Bed to chair. PT. Feed patient only seated upright and observed. Thank you very much, Shahriar Monaco MD
[2018-09-13] MEDS: VANCOMYCIN 1 GRAM (PRE-DOCKED) 1,000 MG/250 ML BAG IVPB SCH (21:47)
[2018-09-13] MEDS: ATORVASTATIN CA 40 MG TABLET (FP) PO SCH (21:47)
[2018-09-13] MEDS: RANITIDINE HCL 150 MG TABLET (FP) PO SCH (21:48)
[2018-09-14] MEDS ORDERED: DEXTROSE 5%-WATER 100 ML IVPB ONE ×2 (01:16→01:36)
[2018-09-14] MEDS ORDERED: CEFEPIME HCL 2 GM VIAL (RESTRICTED TO ID) ONE ×2 (01:17→01:36)
[2018-09-14] MEDS: CEFEPIME 2 GM in DEXTROSE 5%-WATER 100 ML IVPB SCH ×3 (06:16→17:52)
[2018-09-14] MEDS: ACETAMINOPHEN 1000 MG/100 ML VIAL (NON FORMULARY) IVPB PRN ×3 (06:25→23:47)
[2018-09-14 07:26] LABS: BASO % 0.4 % (0-2.0); EOS % 2.7 % (0-4.5); HEMATOCRIT 22.2 % (35.4-49); HEMOGLOBIN 7.1 GM/dL (11.7-16.9); LYMPH % 13.7 % (8-40); MCH 27.3 pg (25.7-33.7); MEAN CELL VOLUME 85.1 fl (80-96); MONO % 1.6 % (3.8-10.2); NEUT % 81.6 % (42.8-82.8); RBC 2.61 M/mm3 (4.00-5.60); RDW 19.4 % (11.9-15.9)
[2018-09-14 08:24] LABS: ALBUMIN 2.2 g/dl (3.4-5.0); BILIRUBIN,TOTAL 0.7 mg/dL (0.2-1); CALCIUM 7.4 mg/dL (8.5-10.1); CREATININE 1.3 mg/dL (0.55-1.3); TOT PROT 5.6 g/dl (6.4-8.2)
[2018-09-14 08:58] LABS: PLATELET COUNT 17 K/MM3 (134-434); WHITE BLOOD COUNT 0.6 K/mm3 (4.0-10.0)
--- NOTE | 2018-09-14 09:58 | PN ---
Progress Note (short form) - Note Progress Note: transferred to ICU for persistent fever, thrombocytopenia, neutropenia, hypokalemia pt is awake at bedside Pt kept NPO as he was vomiting yesterday after eating Vital Signs - 24 hr 09/13/18 09/13/18 09/13/18 17:02 21:00 22:00 Temperature 102.4 F H 99.2 F Pulse Rate 96 H 89 Respiratory 20 20 20 Rate Blood Pressure 125/66 110/61 O2 Sat by Pulse 96 Oximetry (%) 09/14/18 09/14/18 09/14/18 02:00 06:00 06:15 Temperature 99.0 F 103.0 F H 102.2 F H Pulse Rate 85 118 H 112 H Respiratory 20 22 H 20 Rate Blood Pressure 123/72 123/60 105/56 L O2 Sat by Pulse Oximetry (%) 09/14/18 09/14/18 09/14/18 06:34 08:00 09:00 Temperature 101.2 F H 100.4 F H Pulse Rate 115 H 108 H Respiratory 20 22 H 22 H Rate Blood Pressure 116/56 L 115/49 L O2 Sat by Pulse 96 Oximetry (%) 09/14/18 09/14/18 09/14/18 10:00 12:16 12:33 Temperature 100.2 F H 100.2 F H Pulse Rate 102 H 96 H 96 H Respiratory 25 H 22 H 20 Rate Blood Pressure 96/60 96/60 100/60 O2 Sat by Pulse Oximetry (%) 09/14/18 13:45 Temperature 100.2 F H Pulse Rate 98 H Respiratory 20 Rate Blood Pressure 96/60 O2 Sat by Pulse Oximetry (%) Current Medications Generic Name Dose Route Start Last Admin Trade Name Freq PRN Reason Stop Dose Admin Acetaminophen 1,000 mg 09/14/18 11:20 09/14/18 11:42 Ofirmev Injection - IVPB 1,000 mg Q6H PRN Administration PAIN OR FEVER Atorvastatin Calcium 40 mg 09/12/18 22:00 09/13/18 21:47 Lipitor - PO Not Given HS JAMIE Gabapentin 400 mg 09/12/18 22:00 09/14/18 13:53 Neurontin - PO Not Given BID JAMIE Sodium Chloride 1,000 mls @ 125 mls/hr 09/12/18 23:36 09/14/18 11:51 Normal Saline - IV 125 mls/hr ASDIR [facility] Administration Cefepime HCl 2 gm/ Dextrose 100 mls @ 100 mls/hr 09/13/18 18:00 09/14/18 13: 22 IVPB 100 mls/hr Q8H-IV [facility] Administration Protocol Vancomycin HCl 1,250 mg/ 250 mls @ 125 mls/hr 09/14/18 11:00 09/14/18 10:57 Dextrose IVPB 125 mls/hr Q12H [facility] Administration Protocol Metoprolol Succinate 25 mg 09/12/18 22:00 09/14/18 10:55 Toprol Xl - PO 25 mg BID J[facility]IE Administration Pantoprazole Sodium 40 mg 09/13/18 10:00 09/14/18 11:34 Protonix Iv IVPB 40 mg DAILY J[facility] Administration Ranitidine HCl 150 mg 09/13/18 22:00 09/14/18 10:54 Zantac - PO 150 mg BID J[facility]IE Administration Vancomycin HCl 125 mg 09/14/18 12:00 09/14/18 13:53 Vancomycin Oral Solution PO Not Given Q6HPO [facility] Laboratory Results - last 24 hr 09/14/18 09/14/18 09/14/18 06:30 06:30 06:30 WBC 0.6 L* RBC 2.61 L Hgb 7.1 L Hct 22.2 L MCV 85.1 MCH 27.3 MCHC 32.0 RDW 19.4 H Plt Count 17 L* D MPV 10.0 D Absolute Neuts (auto) 0.5 L Neutrophils % 81.6 Neutrophils % (Manual) 53.6 D Band Neutrophils % 7.1 Lymphocytes % 13.7 D Lymphocytes % (Manual) 32.1 D Monocytes % 1.6 L Monocytes % (Manual) 4 D Eosinophils % 2.7 D Eosinophils % (Manual) 3.6 D Basophils % 0.4 Basophils % (Manual) 0.0 Myelocytes % (Man) 0 Promyelocytes % (Man) 0 Blast Cells % (Manual) 0 Nucleated RBC % 0 Metamyelocytes 0 Hypochromia 0 Platelet Estimate Decreased Polychromasia 0 Poikilocytosis 2+ Anisocytosis 1+ Microcytosis 1+ Macrocytosis 1+ Tear Drop Cells 1+ Ovalocytes 1+ Schistocytes 1+ PT with INR INR PTT (Actin FS) Fibrinogen D-Dimer Sodium 138 Potassium 2.9 L* Chloride 111 H Carbon Dioxide 15 L Anion Gap 12 BUN 12 Creatinine 1.3 Est GFR (CKD-EPI)AfAm 63.18 Est GFR (CKD-EPI)NonAf 54.51 Random Glucose 106 Calcium 7.4 L Total Bilirubin 0.7 AST 53 H ALT 30 Alkaline Phosphatase 74 Total Protein 5.6 L Albumin 2.2 L Vitamin B12 1533 H TSH 0.82 D Blood Type Antibody Screen 09/14/18 09/14/18 09/14/18 09:50 10:55 10:55 WBC RBC Hgb Hct MCV MCH MCHC RDW Plt Count MPV Absolute Neuts (auto) Neutrophils % Neutrophils % (Manual) Band Neutrophils % Lymphocytes % Lymphocytes % (Manual) Monocytes % Monocytes % (Manual) Eosinophils % Eosinophils % (Manual) Basophils % Basophils % (Manual) Myelocytes % (Man) Promyelocytes % (Man) Blast Cells % (Manual) Nucleated RBC % Metamyelocytes Hypochromia Platelet Estimate Polychromasia Poikilocytosis Anisocytosis Microcytosis Macrocytosis Tear Drop Cells Ovalocytes Schistocytes PT with INR 15.20 H INR 1.28 H PTT (Actin FS) 25.5 Fibrinogen 458.0 D-Dimer 63485 H Sodium Potassium Chloride Carbon Dioxide Anion Gap BUN Creatinine Est GFR (CKD-EPI)AfAm Est GFR (CKD-EPI)NonAf Random Glucose Calcium Total Bilirubin AST ALT Alkaline Phosphatase Total Protein Albumin Vitamin B12 TSH Blood Type O POSITIVE Antibody Screen Negative S1 S2 RRR Pale Lungs decreased breath sounds Abd- soft,NT no edema ICU monitoring IV antibiotics -- cultures all positive for MRSA needs portacath removed-- needs platelets to be transfused ?IvIG continue with meds IV fluids NPO eliquis on hold prognosis guarded Problem List - Problems (1) Neutropenic sepsis Code(s): A41.9 - SEPSIS, UNSPECIFIED ORGANISM; D70.9 - NEUTROPENIA, UNSPECIFIED (2) Atrial fibrillation Code(s): I48.91 - UNSPECIFIED ATRIAL FIBRILLATION Qualifiers: Atrial fibrillation type: chronic Qualified Code(s): I48.2 - Chronic atrial fibrillation (3) History of colon cancer Code(s): Z85.038 - PERSONAL HISTORY OF MALIGNANT NEOPLASM OF LARGE INTESTINE (4) Multiple myeloma Code(s): C90.00 - MULTIPLE MYELOMA NOT HAVING ACHIEVED REMISSION Qualifiers: Multiple myeloma remission status: unspecified Qualified Code(s): C90.00 - Multiple myeloma not having achieved remission (5) Sepsis Code(s): A41.9 - SEPSIS, UNSPECIFIED ORGANISM Qualifiers: Sepsis type: sepsis due to unspecified organism Qualified Code(s): A41.9 - Sepsis, unspecified organism (6) Anemia Code(s): D64.9 - ANEMIA, UNSPECIFIED Qualifiers: Anemia type: unspecified type Qualified Code(s): D64.9 - Anemia, unspecified
[2018-09-14] MEDS ORDERED: TBO-FILGRASTIM 480 MCG/0.8 ML DISP.SYRIN SQ ONE (10:00)
--- NOTE | 2018-09-14 10:14 | PN ---
Progress Note, Physician History of Present Illness: Seen and examined at bedside. Patient is feeling somewhat the same but a little frustrated as to what the plan is regarding chemo port. Still having fevers. No more diarrhea but still coughing. No urinary sx reported. - Current Medication List Current Medications: Active Medications Allopurinol (Zyloprim -) 300 mg PO DAILY [facility] Last Admin: 09/13/18 19:33 Dose: Not Given Atorvastatin Calcium (Lipitor -) 40 mg PO HS [facility] Last Admin: 09/13/18 21:47 Dose: Not Given Gabapentin (Neurontin -) 400 mg PO BID [facility] Last Admin: 09/13/18 21:48 Dose: Not Given Sodium Chloride (Normal Saline -) 1,000 mls @ 125 mls/hr IV ASDIR [facility] Last Admin: 09/13/18 21:49 Dose: 125 mls/hr Vancomycin HCl (Vancomycin (Pre-Docked)) 1,000 mg in 250 mls @ 166.667 mls/hr IVPB Q12H [facility]; Protocol Last Admin: 09/13/18 21:47 Dose: 166.667 mls/hr Cefepime HCl 2 gm/ Dextrose 100 mls @ 100 mls/hr IVPB Q8H-IV [facility]; Protocol Last Admin: 09/14/18 06:16 Dose: 100 mls/hr Potassium Chloride (Potassium Chloride 10 Meq Premix Ivpb -) 10 meq in 100 mls @ 100 mls/hr IVPB Q1H [facility] Stop: 09/14/18 13:29 Metoprolol Succinate (Toprol Xl -) 25 mg PO BID [facility] Last Admin: 09/13/18 21:48 Dose: Not Given Pantoprazole Sodium (Protonix Iv) 40 mg IVPB DAILY [facility] Last Admin: 09/13/18 09:47 Dose: 40 mg Ranitidine HCl (Zantac -) 150 mg PO BID [facility] Last Admin: 09/13/18 21:48 Dose: Not Given - Objective Vital Signs: Vital Signs Temperature 101.2 F H 09/14/18 06:34 Pulse Rate 115 H 09/14/18 06:34 Respiratory Rate 20 09/14/18 06:34 Blood Pressure 116/56 L 09/14/18 06:34 O2 Sat by Pulse Oximetry (%) 96 09/13/18 21:00 Constitutional: Yes: No Distress, Calm Cardiovascular: Yes: Regular Rate and Rhythm, S1, S2 Respiratory: Yes: CTA Bilaterally Gastrointestinal: Yes: Normal Bowel Sounds, Soft Edema: No Neurological: Yes: Alert, Oriented Labs: CBC, BMP 09/14/18 06:30 09/14/18 06:30 INR, PTT INR 1.17 (0.83-1.09) H 09/12/18 08:15 Impression/Plan Impression/Plan: 72 M h/o multiple myeloma, colon cancer s/p resection with liver metastasis started chemotherapy on 09/06/18, HTN, a-fib on eliquis, and DM admitted to med- surg for suspected neutropenic fever now admitted to ICU . A: severe frebile neutropenia severe pancytopenia sepsis 2/2 MRSA bacteremia +ve c diff ag colon CA s/p resection on chemo multiple myeloma a-fib on eliquis DM P: - IR consulted for port removal - transfuse 2 units of platelets - IV and oral vanco and cefepime, ID onboard - ?neupogen - get pt/ptt, fibrinogen, d-dimers to r/o DIC 2/2 sepsis - cont to hold toprol XL - ECHO Dispo: monitor in ICU for severe neutropenia and MRSA bacteremia Maximilian Arora PGY3 ICU Resident 4435/[id number] Visit type - Emergency Visit Emergency Visit: No - New Patient This patient is new to me today: No - Critical Care Critical Care patient: Yes Total Critical Care Time (in minutes): 35 Critical Care Statement: The care of this patient involved high complexity decision making to prevent further life threatening deterioration of the patient 's condition and/or to evaluate & treat vital organ system(s) failure or risk of failure.
--- NOTE | 2018-09-14 10:36 | PN ---
Progress Note, Physician History of Present Illness: TRANSFERRED TO ICU C/O PAIN AT PORT SITE REMAINS FEBRILE WBC 0.6 PLT 17 CR IMPROVED 1.3 BC PRESUMPTIVE MRSA - Current Medication List Current Medications: Active Medications Allopurinol (Zyloprim -) 300 mg PO DAILY [facility] Last Admin: 09/13/18 19:33 Dose: Not Given Atorvastatin Calcium (Lipitor -) 40 mg PO HS [facility] Last Admin: 09/13/18 21:47 Dose: Not Given Gabapentin (Neurontin -) 400 mg PO BID [facility] Last Admin: 09/13/18 21:48 Dose: Not Given Sodium Chloride (Normal Saline -) 1,000 mls @ 125 mls/hr IV ASDIR [facility] Last Admin: 09/13/18 21:49 Dose: 125 mls/hr Vancomycin HCl (Vancomycin (Pre-Docked)) 1,000 mg in 250 mls @ 166.667 mls/hr IVPB Q12H [facility]; Protocol Last Admin: 09/13/18 21:47 Dose: 166.667 mls/hr Cefepime HCl 2 gm/ Dextrose 100 mls @ 100 mls/hr IVPB Q8H-IV [facility]; Protocol Last Admin: 09/14/18 06:16 Dose: 100 mls/hr Potassium Chloride (Potassium Chloride 10 Meq Premix Ivpb -) 10 meq in 100 mls @ 100 mls/hr IVPB Q1H [facility] Stop: 09/14/18 13:29 Metoprolol Succinate (Toprol Xl -) 25 mg PO BID [facility] Last Admin: 09/13/18 21:48 Dose: Not Given Pantoprazole Sodium (Protonix Iv) 40 mg IVPB DAILY [facility] Last Admin: 09/13/18 09:47 Dose: 40 mg Ranitidine HCl (Zantac -) 150 mg PO BID [facility] Last Admin: 09/13/18 21:48 Dose: Not Given - Objective Vital Signs: Vital Signs Temperature 101.2 F H 09/14/18 06:34 Pulse Rate 115 H 09/14/18 06:34 Respiratory Rate 20 09/14/18 06:34 Blood Pressure 116/56 L 09/14/18 06:34 O2 Sat by Pulse Oximetry (%) 96 09/13/18 21:00 Constitutional: Yes: No Distress, Obese Cardiovascular: Yes: Regular Rate and Rhythm, S1, S2 Respiratory: Yes: Diminished Gastrointestinal: Yes: Normal Bowel Sounds, Soft. No: Tenderness Edema: No Integumentary: Yes: Other (PORT SITE WITH ECCHYMOSIS; NO ERYTHEMA/DRAINAGE) Labs: CBC, BMP 09/14/18 06:30 09/14/18 06:30 INR, PTT INR 1.17 (0.83-1.09) H 09/12/18 08:15 Assessment/Plan STAPHYLOCOCCAL BACTEREMIA/ SEPSIS PROBABLE INFECTED PORT NEUTROPENIA/PANCYTOPENIA THROMBOCYTOPENIA AZOTEMIA IMPROVED METASTATIC CA S/P CHEMO AWAIT FINAL BC FOR PORT REMOVAL CONTINUE VANCO/CEFEPIME NEUTROPENIC PRECAUTIONS PROGNOSIS GUARDED
[2018-09-14] MEDS: RANITIDINE HCL 150 MG TABLET (FP) PO SCH ×2 (10:54→23:03)
[2018-09-14] MEDS: KCL 10 MEQ IVPB 10 MEQ/100 ML INFUS.BAG IVPB SCH ×4 (10:54→14:27)
[2018-09-14] MEDS: metoPROLOL SUCCINATE 25 MG TAB.SR.24H (FP) PO SCH ×2 (10:55→23:03)
[2018-09-14] MEDS: GABAPENTIN 400 MG CAPSULE (FP) PO SCH ×3 (10:55→23:02)
[2018-09-14] MEDS: VANCOMYCIN HCL 1,250 MG in DEXTROSE 5%-WATER - 250 ML IVPB SCH ×2 (10:57→23:46)
--- NOTE | 2018-09-14 10:58 | CONSULT ---
- Consultation REQUESTING PROVIDER: CONSULT REQUEST: We have been asked to surgically evaluate this patient for fevers and portacath removal. PCP:Emma Brand HISTORY OF PRESENT ILLNESS: The patient came to the ER because on Wednesday he felt weakness. He denies feeling any fevers until he was admitted. He has had some nausea and emesis and difficulty swallowing. After his port placement he has had one episode of chemotherapy treatment. PMHx: multiple myeloma, h/o of colon cancer with resection now with liver mets PSHx: colon resection, bardport insertion 09/05/2018 Home Medications Medication Instructions Recorded Gabapentin 400 mg PO BID 10/04/16 Allopurinol 300 mg PO DAILY 10/21/17 Atorvastatin Ca [Lipitor] 40 mg PO HS 10/21/17 Cyanocobalamin (Vitamin B-12) 2,500 mcg PO DAILY 10/21/17 [Vitamin B12] Oxycodone HCl [Oxycontin] 10 mg PO PRN PRN 10/21/17 Pantoprazole Sodium [Protonix] 40 mg PO DAILY 10/21/17 Apixaban [Eliquis -] 5 mg PO BID #0 tablet 06/22/18 Furosemide 40 mg PO DAILY 06/22/18 Metoprolol Succinate 25 mg PO BID 06/22/18 Allergies Allergy/AdvReac Type Severity Reaction Status Date / Time No Known Allergies Allergy Verified 09/12/18 08:59 REVIEW OF SYSTEMS: CONSTITUTIONAL: Present: fevers RESPIRATORY: Absent: cough, shortness of breath GASTROINTESTINAL: Absent: abdominal pain, abdominal distension. PHYSICAL EXAM: GENERAL: Awake, alert, and fully oriented, in no acute distress. 21lm,./ NECK: Insertion site of R IJ and incision to chest with steri-strips. No ecchymosis or erythema. ABDOMEN: Soft, nontender, not distended. Hepatomegaly. LOWER EXTREMITIES: 2+ pulses, warm, well-perfused. No calf tenderness. No peripheral edema. NEUROLOGICAL: Normal speech PSYCH: Cooperative. Good eye contact. Appropriate mood and affect. Vital Signs Temperature 101.2 F H 09/14/18 06:34 Pulse Rate 115 H 09/14/18 06:34 Respiratory Rate 20 09/14/18 06:34 Blood Pressure 116/56 L 09/14/18 06:34 O2 Sat by Pulse Oximetry (%) 96 09/13/18 21:00 Lab Results WBC 0.6 K/mm3 (4.0-10.0) L* 09/14/18 06:30 RBC 2.61 M/mm3 (4.00-5.60) L 09/14/18 06:30 Hgb 7.1 GM/dL (11.7-16.9) L 09/14/18 06:30 Hct 22.2 % (35.4-49) L 09/14/18 06:30 MCV 85.1 fl (80-96) 09/14/18 06:30 MCHC 32.0 g/dl (32.0-35.9) 09/14/18 06:30 RDW 19.4 % (11.9-15.9) H 09/14/18 06:30 Plt Count 17 K/MM3 (134-434) L* D 09/14/18 06:30 Sodium 138 mmol/L (136-145) 09/14/18 06:30 Potassium 2.9 mmol/L (3.5-5.1) L* 09/14/18 06:30 Chloride 111 mmol/L (98-107) H 09/14/18 06:30 Carbon Dioxide 15 mmol/L (21-32) L 09/14/18 06:30 Anion Gap 12 MMOL/L (8-16) 09/14/18 06:30 BUN 12 mg/dL (7-18) 09/14/18 06:30 Creatinine 1.3 mg/dL (0.55-1.3) 09/14/18 06:30 Random Glucose 106 mg/dL (74-106) 09/14/18 06:30 Calcium 7.4 mg/dL (8.5-10.1) L 09/14/18 06:30 INR 1.17 (0.83-1.09) H 09/12/18 08:15 Microbiology 09/12/18 13:00 Urine - Urine Clean Catch Urine Culture - Final Mr S Aureus 09/12/18 16:50 Blood - Joshua Cath Blood Culture - Preliminary Presumptive Mrsa (Pbp2a Pos) 09/12/18 16:50 Blood - Joshua Cath Blood Culture - Preliminary Presumptive Mrsa (Pbp2a Pos) 09/12/18 08:15 Blood - Peripheral Venous Blood Culture - Preliminary Presumptive Mrsa (Pbp2a Pos) 09/12/18 08:10 Blood - Peripheral Venous Blood Culture - Preliminary Presumptive Mrsa (Pbp2a Pos) CXR -no acute pathology noted Problem List - Problems (1) Neutropenic sepsis Assessment/Plan: Pt admitted with neutropenic sepsis, called for portacath removal. He has had consistent fevers and worsening sepsis. The patient is currently being transferred to the ICU for further managment. D/w Dr. Bryan and Dr. Epstein. The portacath was placed on 09/05 by IR, please have them evaluate the patient for removal of the port. Please reconsult surgery if IR unavailable. The patient remains npo because of nausea/difficulty swallowing. He will need platelets at the time of port removal. ID consult for IV abx. Code(s): A41.9 - SEPSIS, UNSPECIFIED ORGANISM; D70.9 - NEUTROPENIA, UNSPECIFIED
--- NOTE | 2018-09-14 11:04 | PN ---
Teaching Attending Note Name of Resident: Maximilian Arora ATTENDING PHYSICIAN STATEMENT I saw and evaluated the patient. I reviewed the resident's note and discussed the case with the resident. I agree with the resident's findings and plan as documented. SUBJECTIVE: Pt seen and examined in the ICU. Briefly, 72yo male with h/o multiple myeloma, metastatic colon ca to liver on chemotherapy s/p recent port placement who was admitted with fevers, generalized weakness. Found to have presumptive MRSA bacteremia as well as neutropenia and thrombocytopenia. OBJECTIVE: Vital Signs Period Temp Pulse Resp BP Sys/Max Pulse Ox Last 24 Hr 99.0 F-103.0 F 85-118 20-22 105-137/49-74 96-96 Intake & Output 09/11/18 09/12/18 09/13/18 09/14/18 23:59 23:59 23:59 23:59 Intake Total 1300 2200 1100 Balance 1300 2200 1100 Weight 92.896 kg Gen: mildly tachypneic at rest Heart: RRR Lung: decreased breath sounds at the bases Abd: soft, nontender Ext: no edema CBC, BMP 09/14/18 06:30 09/14/18 06:30 Active Medications Allopurinol (Zyloprim -) 300 mg PO DAILY [facility] Last Admin: 09/13/18 19:33 Dose: Not Given Atorvastatin Calcium (Lipitor -) 40 mg PO HS [facility] Last Admin: 09/13/18 21:47 Dose: Not Given Gabapentin (Neurontin -) 400 mg PO BID [facility] Last Admin: 09/14/18 10:55 Dose: 400 mg Sodium Chloride (Normal Saline -) 1,000 mls @ 125 mls/hr IV ASDIR [facility] Last Admin: 09/13/18 21:49 Dose: 125 mls/hr Cefepime HCl 2 gm/ Dextrose 100 mls @ 100 mls/hr IVPB Q8H-IV [facility]; Protocol Last Admin: 09/14/18 06:16 Dose: 100 mls/hr Potassium Chloride (Potassium Chloride 10 Meq Premix Ivpb -) 10 meq in 100 mls @ 100 mls/hr IVPB Q1H [facility] Stop: 09/14/18 13:29 Last Admin: 09/14/18 10:54 Dose: 100 mls/hr Vancomycin HCl 1,250 mg/ (Dextrose) 250 mls @ 125 mls/hr IVPB Q12H [facility]; Protocol Last Admin: 09/14/18 10:57 Dose: 125 mls/hr Metoprolol Succinate (Toprol Xl -) 25 mg PO BID [facility] Last Admin: 09/14/18 10:55 Dose: 25 mg Pantoprazole Sodium (Protonix Iv) 40 mg IVPB DAILY [facility] Last Admin: 09/13/18 09:47 Dose: 40 mg Ranitidine HCl (Zantac -) 150 mg PO BID [facility] Last Admin: 09/14/18 10:54 Dose: 150 mg ASSESSMENT AND PLAN: MRSA Bacteremia r/o Port Infection Neutropenic Sepsis Thrombocytopenia Anemia Metastatic Colon Ca on chemotherapy Multiple Myeloma Atrial Fibrillation HTN DM - antibiotics per ID - f/u cultures - port removal - platelet transfusion prior to removal - monitor CBC, coags, fibrinogen level - transfuse as needed - echocardiogram - IVF - replete lytes - ICU monitoring for now
[2018-09-14 11:30] LABS: INR 1.28 (0.83-1.09); PROTHROMBIN TIME (PATIENT) 15.2 SEC (9.7-13.0)
[2018-09-14 11:32] LABS: ACTIVATED PTT 25.5 SECONDS (25.2-36.5)
[2018-09-14] MEDS: PANTOPRAZOLE SODIUM 40 MG VIAL IVPB SCH (11:34)
[2018-09-14] MEDS: SODIUM CHLORIDE 1,000 ML IV SCH ×2 (11:51→23:46)
--- NOTE | 2018-09-14 13:28 | PN ---
Progress Note, SHIFT BOSS - Note Progress Note: 72yo male with h/o multiple myeloma, metastatic colon ca to liver on chemotherapy s/p recent port placement who was admitted with fevers, generalized weakness. Transferred today to ICU,pending portacath removal. He has had consistent fevers and worsening sepsis. Selected Entries 09/13/18 09/13/18 09/13/18 01:32 06:00 08:47 Breakfast Lunch Temperature 99.3 F 100 F H 100.2 F H 09/13/18 09/13/18 09/13/18 09:54 11:00 13:52 Breakfast NPO Lunch 0 Temperature 98.4 F 99.5 F 09/13/18 09/13/18 09/14/18 17:02 22:00 02:00 Breakfast Lunch Temperature 102.4 F H 99.2 F 99.0 F 09/14/18 09/14/18 09/14/18 06:00 06:15 06:34 Breakfast Lunch Temperature 103.0 F H 102.2 F H 101.2 F H 09/14/18 09/14/18 09/14/18 08:00 12:16 12:33 Breakfast Lunch Temperature 100.4 F H 100.2 F H 100.2 F H 09/14/18 13:45 Breakfast Lunch Temperature 100.2 F H Laboratory Tests 09/12/18 09/13/18 09/14/18 08:15 06:00 06:30 WBC 1.9 L* 2.7 L 0.6 L* Pt known to me Pt well known to me from past admissions with symptoms of responsive gagging/heaving following PO intake. Seen in Apr 2017 admission at which time heaving was persistent, requiring PEG insertion. Pt was scoped twice by GI,during last EGD, Schatzki ring was found and disrupted with biopsies and dilation to 20mm with a balloon. PEG was inserted due to inability to accept sufficient food/liquid without heaving. Cynthia/pharyngeal dysphagia was not identified. Per Neurology, "after IVIg treatment his dysphagia, dysarthria and weakness improved." Pt was able to eat fairly well at [facility], until a few weeks later when heaving resumed. He was sent back to me for an out pt MBS on 06/04/17. Oral/pharyngeal/esophageal swallow was WNL, although, study was limited with pt beginning to cough then heave, after second trial sip of Barium. Upon my evaluation of the oral cavity on that day, there was a thick white coating on pt 's tongue and buccal cavity patches c/w candidiasis. Pt was treated for Jenifer at [facility]. Seen again June 2017 admissions. Peg was removed after d/c from [facility]. Upon this admission, Pt was noted to be coughing while drinking, made NPO. Upon reassessment,seated fully upright, swallowing sips of soda well. After a min or so, he has a dry cough, followed by heaving. Vocal quality is euphonic. No gross congestion. No Odynophagia. Pt refused trial of applesauce/pudding. Per pt and family, "the only thing that stops the heaving is IVIg." Recently s/p IVIg, beginning of August. Had Chemo afterwards. Suggest- trials of PO intake, periodically, as tolerated. f/u by Dr. Monaco If esophagitis is suspected, consider medical mgmt. No oral thrush noted.
[2018-09-14] MEDS: VANCOMYCIN 250 MG/5 ML ORAL SOLUTION PO SCH ×3 (13:53→23:04)
[2018-09-14 14:12] LABS: ANISOCYTOSIS 1+; MACROCYTOSIS 1+; OVALOCYTE 1+; PLATELET ESTIMATE DECREASED; TEAR DROP CELLS 1+
[2018-09-14 14:15] LABS: HEMATOCRIT 21.3 % (35.4-49); MCH 27.2 pg (25.7-33.7); MCHC 31.6 g/dl (32.0-35.9); MEAN CELL VOLUME 86.1 fl (80-96); MEAN PLT VOLUME 8.9 fl (7.5-11.1); RBC 2.47 M/mm3 (4.00-5.60); RDW 19.3 % (11.9-15.9)
[2018-09-14 14:54] LABS: HEMOGLOBIN 6.7 GM/dL (11.7-16.9); PLATELET COUNT 31 K/MM3 (134-434); WHITE BLOOD COUNT 1.1 K/mm3 (4.0-10.0)
[2018-09-14 15:44] LABS: POTASSIUM 2.9 mmol/L (3.5-5.1)
[2018-09-14] MEDS ORDERED: PT OWN MED DRAWER 7, Y5N ONE (17:32)
--- NOTE | 2018-09-14 17:59 | PN ---
Physical Exam: SUBJECTIVE: Patient seen and examined Patient resting in bed, nad. low grade fever, hemodynamically stable. does not feel better, feels weak, + cough and malaise. nausea improved. OBJECTIVE: Vital Signs Period Temp Pulse Resp BP Sys/Max Pulse Ox Last 24 Hr 99.0 F-103.0 F 85-118 20-25 96-123/48-72 96-96 GENERAL: The patient is awake, alert, and fully oriented, in no acute distress, pale, slightly lethargic. HEAD: Normal with no signs of trauma. EYES: PERRL, extraocular movements intact ENT:moist mucous membranes. NECK: supple no adenopathy LUNGS: Breath sounds equal, clear to auscultation bilaterally HEART: Regular rate and rhythm, S1, S2 ABDOMEN: Soft, nontender, nondistended, normoactive bowel sounds, NEUROLOGICAL: Cranial nerves II through XII grossly intact. Normal speech, gait not observed. PSYCH: Normal mood, normal affect. SKIN: Warm, dry Laboratory Results - last 24 hr 09/14/18 09/14/18 09/14/18 06:30 06:30 06:30 WBC 0.6 L* RBC 2.61 L Hgb 7.1 L Hct 22.2 L MCV 85.1 MCH 27.3 MCHC 32.0 RDW 19.4 H Plt Count 17 L* D MPV 10.0 D Absolute Neuts (auto) 0.5 L Neutrophils % 81.6 Neutrophils % (Manual) 53.6 D Band Neutrophils % 7.1 Lymphocytes % 13.7 D Lymphocytes % (Manual) 32.1 D Monocytes % 1.6 L Monocytes % (Manual) 4 D Eosinophils % 2.7 D Eosinophils % (Manual) 3.6 D Basophils % 0.4 Basophils % (Manual) 0.0 Myelocytes % (Man) 0 Promyelocytes % (Man) 0 Blast Cells % (Manual) 0 Nucleated RBC % 0 Metamyelocytes 0 Hypochromia 0 Platelet Estimate Decreased Polychromasia 0 Poikilocytosis 2+ Anisocytosis 1+ Microcytosis 1+ Macrocytosis 1+ Tear Drop Cells 1+ Ovalocytes 1+ Schistocytes 1+ PT with INR INR PTT (Actin FS) Fibrinogen D-Dimer Sodium 138 Potassium 2.9 L* Chloride 111 H Carbon Dioxide 15 L Anion Gap 12 BUN 12 Creatinine 1.3 Est GFR (CKD-EPI)AfAm 63.18 Est GFR (CKD-EPI)NonAf 54.51 Random Glucose 106 Calcium 7.4 L Total Bilirubin 0.7 AST 53 H ALT 30 Alkaline Phosphatase 74 Total Protein 5.6 L Albumin 2.2 L Vitamin B12 1533 H TSH 0.82 D Blood Type Antibody Screen Crossmatch 09/14/18 09/14/18 09/14/18 09:50 10:55 10:55 WBC RBC Hgb Hct MCV MCH MCHC RDW Plt Count MPV Absolute Neuts (auto) Neutrophils % Neutrophils % (Manual) Band Neutrophils % Lymphocytes % Lymphocytes % (Manual) Monocytes % Monocytes % (Manual) Eosinophils % Eosinophils % (Manual) Basophils % Basophils % (Manual) Myelocytes % (Man) Promyelocytes % (Man) Blast Cells % (Manual) Nucleated RBC % Metamyelocytes Hypochromia Platelet Estimate Polychromasia Poikilocytosis Anisocytosis Microcytosis Macrocytosis Tear Drop Cells Ovalocytes Schistocytes PT with INR 15.20 H INR 1.28 H PTT (Actin FS) 25.5 Fibrinogen 458.0 D-Dimer 28835 H Sodium Potassium Chloride Carbon Dioxide Anion Gap BUN Creatinine Est GFR (CKD-EPI)AfAm Est GFR (CKD-EPI)NonAf Random Glucose Calcium Total Bilirubin AST ALT Alkaline Phosphatase Total Protein Albumin Vitamin B12 TSH Blood Type O POSITIVE Antibody Screen Negative Crossmatch See Detail 09/14/18 13:52 WBC 1.1 L* RBC 2.47 L Hgb 6.7 L* Hct 21.3 L MCV 86.1 MCH 27.2 MCHC 31.6 L RDW 19.3 H Plt Count 31 L* D MPV 8.9 D Absolute Neuts (auto) Neutrophils % No Result Required. Neutrophils % (Manual) Band Neutrophils % Lymphocytes % No Result Required. Lymphocytes % (Manual) Monocytes % Monocytes % (Manual) Eosinophils % Eosinophils % (Manual) Basophils % Basophils % (Manual) Myelocytes % (Man) Promyelocytes % (Man) Blast Cells % (Manual) Nucleated RBC % 0 Metamyelocytes Hypochromia Platelet Estimate Polychromasia Poikilocytosis Anisocytosis Microcytosis Macrocytosis Tear Drop Cells Ovalocytes Schistocytes PT with INR INR PTT (Actin FS) Fibrinogen D-Dimer Sodium Potassium Chloride Carbon Dioxide Anion Gap BUN Creatinine Est GFR (CKD-EPI)AfAm Est GFR (CKD-EPI)NonAf Random Glucose Calcium Total Bilirubin AST ALT Alkaline Phosphatase Total Protein Albumin Vitamin B12 TSH Blood Type Antibody Screen Crossmatch Active Medications Generic Name Dose Route Start Last Admin Trade Name Freq PRN Reason Stop Dose Admin Acetaminophen 1,000 mg 09/14/18 11:20 09/14/18 11:42 Ofirmev Injection - IVPB 1,000 mg Q6H PRN Administration PAIN OR FEVER Atorvastatin Calcium 40 mg 09/12/18 22:00 09/13/18 21:47 Lipitor - PO Not Given HS JAMIE Gabapentin 400 mg 09/12/18 22:00 09/14/18 13:53 Neurontin - PO Not Given BID JAMIE Sodium Chloride 1,000 mls @ 125 mls/hr 09/12/18 23:36 09/14/18 11:51 Normal Saline - IV 125 mls/hr ASDIR JAMIE Administration Cefepime HCl 2 gm/ Dextrose 100 mls @ 100 mls/hr 09/13/18 18:00 09/14/18 17: 52 IVPB 100 mls/hr Q8H-IV JAMIE Administration Protocol Vancomycin HCl 1,250 mg/ 250 mls @ 125 mls/hr 09/14/18 11:00 09/14/18 10:57 Dextrose IVPB 125 mls/hr Q12H JAMIE Administration Protocol Metoprolol Succinate 25 mg 09/12/18 22:00 09/14/18 10:55 Toprol Xl - PO 25 mg BID JAMIE Administration Pantoprazole Sodium 40 mg 09/13/18 10:00 09/14/18 11:34 Protonix Iv IVPB 40 mg DAILY JAMIE Administration Ranitidine HCl 150 mg 09/13/18 22:00 09/14/18 10:54 Zantac - PO 150 mg BID JAMIE Administration Vancomycin HCl 125 mg 09/14/18 12:00 09/14/18 17:52 Vancomycin Oral Solution PO Not Given Q6HPO JAMIE ASSESSMENT/PLAN: This is a 72 yo M with PMH of MM, colon CA s/p resection w liver mets on FOLFIRI 09/06/18, HTN, AF on eliquis and DM, who presented due to cough, malaise , and fever, abdominal pain, and s/p fall, treated for bacteremia and UTI Ct a/p w cont: R hepatic dome mass sepsis MRSA bacteremia source urine vs R subclavicular port C diff colitis leukopenia due to sepsis and possibly folfiri thrombocytopenia due to sepsis anemia due to sepsis -neupogen ppx -platelet and rbc transfusions -remove port today -abx, IVF, f/u cultures -further recs per ID Visit type - Emergency Visit Emergency Visit: Yes ED Registration Date: 09/12/18 Care time: The patient presented to the Emergency Department on the above date and was hospitalized for further evaluation of their emergent condition. - New Patient This patient is new to me today: No - Critical Care Critical Care patient: Yes Total Critical Care Time (in minutes): 45 Critical Care Statement: The care of this patient involved high complexity decision making to prevent further life threatening deterioration of the patient 's condition and/or to evaluate & treat vital organ system(s) failure or risk of failure. - Discharge Referral Referred to [facility] No
--- NOTE | 2018-09-14 18:14 | PN ---
Progress Note (short form) - Note Progress Note: Notified by nurse that patient w/ oral temp of 101.1. Patient had just received 3 units of platelets. Pt. Hb 6.7 and due for 1u PRBC. On exam, patient A&O x3, heart RRR s1, s2 w/o murmurs, lungs CTA b/l and abdomen soft and nontender. No rashes or skin lesions noted. Patient denies chest pain or new SOB. It is likely that the patient's current fever is 2/2 to his bacteremia and unrelated to any administration of blood products. With a Hb of 6.7, the patient is at an increased risk of adverse outcomes if he remains anemic. For this reason, the benefits of blood transfusion outweigh the risks at this time and we will proceed with PRBC even though patient is febrile.
[2018-09-14 18:40] LABS: ANISOCYTOSIS 2+; OVALOCYTE 2+; TEAR DROP CELLS 2+
[2018-09-14 18:41] LABS: PLATELET ESTIMATE DECREASED
[2018-09-14] MEDS ORDERED: SODIUM CHLORIDE 1,000 ML IV STA ×2 (21:07→23:05)
[2018-09-14 21:45] LABS: HEMATOCRIT 22.5 % (35.4-49); MCH 27.1 pg (25.7-33.7); MCHC 31.2 g/dl (32.0-35.9); MEAN CELL VOLUME 86.9 fl (80-96); MEAN PLT VOLUME 7.6 fl (7.5-11.1); PLATELET COUNT 56 K/MM3 (134-434); RBC 2.59 M/mm3 (4.00-5.60); RDW 18.6 % (11.9-15.9)
[2018-09-14 21:52] LABS: CALCIUM 7.2 mg/dL (8.5-10.1); CREATININE 1.3 mg/dL (0.55-1.3); MAGNESIUM 1.8 mg/dL (1.8-2.4); PHOSPHOROUS 1.3 mg/dL (2.5-4.9); POTASSIUM 3.5 mmol/L (3.5-5.1)
[2018-09-14 21:57] LABS: WHITE BLOOD COUNT 1.2 K/mm3 (4.0-10.0)
[2018-09-14] MEDS: ATORVASTATIN CA 40 MG TABLET (FP) PO SCH (23:02)
[2018-09-15] MEDS: CEFEPIME 2 GM in DEXTROSE 5%-WATER 100 ML IVPB SCH ×3 (01:18→17:53)
[2018-09-15] MEDS: VANCOMYCIN 250 MG/5 ML ORAL SOLUTION PO SCH ×3 (06:17→17:54)
[2018-09-15 06:19] LABS: BASO % 1.4 % (0-2.0); EOS % 1.4 % (0-4.5); HEMATOCRIT 21.8 % (35.4-49); HEMOGLOBIN 7.1 GM/dL (11.7-16.9); LYMPH % 19.6 % (8-40); MCH 27.7 pg (25.7-33.7); MCHC 32.5 g/dl (32.0-35.9); MEAN CELL VOLUME 85.2 fl (80-96); MEAN PLT VOLUME 8.7 fl (7.5-11.1); MONO % 5.7 % (3.8-10.2); NEUT % 71.9 % (42.8-82.8); PLATELET COUNT 56 K/MM3 (134-434); RBC 2.56 M/mm3 (4.00-5.60); RDW 18.6 % (11.9-15.9)
--- NOTE | 2018-09-15 07:16 | ECHO ---
Name: CHANTELL CULP Exam:Adult Echocardiogram Study Date: 09/14/2018 12:00 PM Age: 72 yrs Reason For Study: MRSA bacreremia Height: 69 in Weight: 204 lb BSA: 2.1 m2 MMode/2D Measurements & Calculations IVSd: 0.93 cm Ao root diam: 4.2 cm LVIDd: 5.2 cm LA dimension: 3.1 cm LVIDs: 3.5 cm ACS: 1.4 cm LVPWd: 1.0 cm IVSs: 1.3 cm LVPWs: 1.2 cm EDV(Teich): 128.8 ml ESV(Teich): 50.3 ml Doppler Measurements & Calculations MV E max alberto: 41.2 cm/sec Ao V2 max: 99.1 cm/sec MV A max alberto: 72.8 cm/sec Ao max P.9 mmHg MV E/A: 0.57 Ao V2 mean: 67.7 cm/sec Ao mean P.3 mmHg Ao V2 VTI: 12.6 cm Med Peak E' Alberto: 6.3 cm/sec Med E/e': 6.6 Lat Peak E' Alberto: 8.0 cm/sec Lat E/e': 5.1 Procedure The study was technically difficult with many images being suboptimal in quality. Limited views of th e aortic, tricuspid, and pulmonic valves; cannot r/o vegetations on any of these valves. Correlate clinically; consider RANDY if necessary. Left Ventricle There is mild concentric left ventricular hypertrophy. The left ventricular ejection fraction is norm al. Ejection Fraction = 60%. The transmitral spectral Doppler flow pattern is suggestive of impaired LV relaxation. Mitral Valve There is mild mitral annular calcification. There is mild mitral valve thickening. There is no vegeta tion seen on the mitral valve. There is mild mitral regurgitation. Tricuspid Valve The tricuspid valve is not well visualized. Aortic Valve The aortic valve is not well visualized. There is mild aortic valve thickening. Pulmonic Valve The pulmonic valve is not well visualized. Great Vessels Mild aortic root dilatation. Pericardium/Pleura There is no pericardial effusion. Interpretation Summary There is mild concentric left ventricular hypertrophy. Ejection Fraction = 60%. The transmitral spectral Doppler flow pattern is suggestive of impaired LV relaxation. There is mild mitral regurgitation. There is mild mitral annular calcification. There is mild mitral valve thickening. There is no vegetation seen on the mitral valve. The aortic valve is not well visualized. There is mild aortic valve thickening. The pulmonic valve is not well visualized. The tricuspid valve is not well visualized. Mild aortic root dilatation. There is no pericardial effusion. Limited views of the aortic, tricuspid, and pulmonic valves; cannot r/o vegetations on any of these v bowers. Correlate clinically; consider RANDY if necessary. Maximilian Garcia MD 09/14/2018 05:09 PM
--- NOTE | 2018-09-15 07:47 | PN ---
Physical Exam: SUBJECTIVE: Patient seen and examined at bedside. Became hypotensive (80s/50s, MAP >65) overnight; given fluid bolus. Also febrile overnight. States he feels better than yesterday but feels nauseous. OBJECTIVE: Vital Signs Period Temp Pulse Resp BP Sys/Max Pulse Ox Last 24 Hr 68 F-102.0 F 68-108 17-26 86-127/48-70 96-97 GENERAL: The patient is awake, alert, and fully oriented, in no acute distress.. EYES: PERRL, extraocular movements intact, sclera anicteric, conjunctiva pale. No ptosis. LUNGS: Breath sounds equal, clear to auscultation bilaterally, no wheezes, no crackles, no accessory muscle use. HEART: Regular rate and rhythm, S1, S2 without murmur, rub or gallop. ABDOMEN: Soft, nontender, nondistended, normoactive bowel sounds, no guarding, no rebound, no hepatosplenomegaly, no masses. EXTREMITIES: 2+ pulses, warm, well-perfused, no edema. NEUROLOGICAL: Cranial nerves II through XII grossly intact. Normal speech, gait not observed. PSYCH: Normal mood, normal affect. SKIN: echymosis on chest at previous [facility] site. Laboratory Results - last 24 hr 09/14/18 09/14/18 09/14/18 06:30 06:30 06:30 WBC 0.6 L* RBC 2.61 L Hgb 7.1 L Hct 22.2 L MCV 85.1 MCH 27.3 MCHC 32.0 RDW 19.4 H Plt Count 17 L* D MPV 10.0 D Absolute Neuts (auto) 0.5 L Neutrophils % 81.6 Neutrophils % (Manual) 53.6 D Band Neutrophils % 7.1 Lymphocytes % 13.7 D Lymphocytes % (Manual) 32.1 D Monocytes % 1.6 L Monocytes % (Manual) 4 D Eosinophils % 2.7 D Eosinophils % (Manual) 3.6 D Basophils % 0.4 Basophils % (Manual) 0.0 Myelocytes % (Man) 0 Promyelocytes % (Man) 0 Blast Cells % (Manual) 0 Nucleated RBC % 0 Metamyelocytes 0 Hypochromia 0 Platelet Estimate Decreased Polychromasia 0 Poikilocytosis 2+ Anisocytosis 1+ Microcytosis 1+ Macrocytosis 1+ Tear Drop Cells 1+ Ovalocytes 1+ Schistocytes 1+ PT with INR INR PTT (Actin FS) Fibrinogen D-Dimer Sodium 138 Potassium 2.9 L* Chloride 111 H Carbon Dioxide 15 L Anion Gap 12 BUN 12 Creatinine 1.3 Est GFR (CKD-EPI)AfAm 63.18 Est GFR (CKD-EPI)NonAf 54.51 Random Glucose 106 Calcium 7.4 L Phosphorus Magnesium Total Bilirubin 0.7 AST 53 H ALT 30 Alkaline Phosphatase 74 Total Protein 5.6 L Albumin 2.2 L Vitamin B12 1533 H TSH 0.82 D Blood Type Antibody Screen Crossmatch 09/14/18 09/14/18 09/14/18 09:50 10:55 10:55 WBC RBC Hgb Hct MCV MCH MCHC RDW Plt Count MPV Absolute Neuts (auto) Neutrophils % Neutrophils % (Manual) Band Neutrophils % Lymphocytes % Lymphocytes % (Manual) Monocytes % Monocytes % (Manual) Eosinophils % Eosinophils % (Manual) Basophils % Basophils % (Manual) Myelocytes % (Man) Promyelocytes % (Man) Blast Cells % (Manual) Nucleated RBC % Metamyelocytes Hypochromia Platelet Estimate Polychromasia Poikilocytosis Anisocytosis Microcytosis Macrocytosis Tear Drop Cells Ovalocytes Schistocytes PT with INR 15.20 H INR 1.28 H PTT (Actin FS) 25.5 Fibrinogen 458.0 D-Dimer 16229 H Sodium Potassium Chloride Carbon Dioxide Anion Gap BUN Creatinine Est GFR (CKD-EPI)AfAm Est GFR (CKD-EPI)NonAf Random Glucose Calcium Phosphorus Magnesium Total Bilirubin AST ALT Alkaline Phosphatase Total Protein Albumin Vitamin B12 TSH Blood Type O POSITIVE Antibody Screen Negative Crossmatch See Detail 09/14/18 09/14/18 09/14/18 13:52 20:40 20:40 WBC 1.1 L* 1.2 L* RBC 2.47 L 2.59 L Hgb 6.7 L* 7.0 L Hct 21.3 L 22.5 L MCV 86.1 86.9 MCH 27.2 27.1 MCHC 31.6 L 31.2 L RDW 19.3 H 18.6 H Plt Count 31 L* D 56 L D MPV 8.9 D 7.6 D Absolute Neuts (auto) Neutrophils % No Result Required. Neutrophils % (Manual) 71.0 D Band Neutrophils % 9.0 Lymphocytes % No Result Required. Lymphocytes % (Manual) 14.0 D Monocytes % Monocytes % (Manual) 5 Eosinophils % Eosinophils % (Manual) Basophils % Basophils % (Manual) Myelocytes % (Man) Promyelocytes % (Man) Blast Cells % (Manual) Nucleated RBC % 0 Metamyelocytes 1 D Hypochromia 2+ Platelet Estimate Decreased Polychromasia Poikilocytosis Anisocytosis 2+ Microcytosis 2+ Macrocytosis Tear Drop Cells 2+ Ovalocytes 2+ Schistocytes PT with INR INR PTT (Actin FS) Fibrinogen D-Dimer Sodium 140 Potassium 3.5 Chloride 114 H Carbon Dioxide 19 L Anion Gap 8 BUN 14 Creatinine 1.3 Est GFR (CKD-EPI)AfAm 63.18 Est GFR (CKD-EPI)NonAf 54.51 Random Glucose 119 H Calcium 7.2 L Phosphorus 1.3 L Magnesium 1.8 Total Bilirubin AST ALT Alkaline Phosphatase Total Protein Albumin Vitamin B12 TSH Blood Type Antibody Screen Crossmatch 09/15/18 09/15/18 05:30 05:30 WBC 1.0 L* RBC 2.56 L Hgb 7.1 L Hct 21.8 L MCV 85.2 MCH 27.7 MCHC 32.5 RDW 18.6 H Plt Count 56 L MPV 8.7 D Absolute Neuts (auto) 0.7 L Neutrophils % 71.9 Neutrophils % (Manual) Band Neutrophils % Lymphocytes % 19.6 D Lymphocytes % (Manual) Monocytes % 5.7 D Monocytes % (Manual) Eosinophils % 1.4 Eosinophils % (Manual) Basophils % 1.4 D Basophils % (Manual) Myelocytes % (Man) Promyelocytes % (Man) Blast Cells % (Manual) Nucleated RBC % 0 Metamyelocytes Hypochromia Platelet Estimate Polychromasia Poikilocytosis Anisocytosis Microcytosis Macrocytosis Tear Drop Cells Ovalocytes Schistocytes PT with INR INR PTT (Actin FS) Fibrinogen D-Dimer Sodium Cancelled Potassium Cancelled Chloride Cancelled Carbon Dioxide Cancelled Anion Gap Cancelled BUN Cancelled Creatinine Cancelled Est GFR (CKD-EPI)AfAm Cancelled Est GFR (CKD-EPI)NonAf Cancelled Random Glucose Cancelled Calcium Cancelled Phosphorus Magnesium Cancelled Total Bilirubin AST ALT Alkaline Phosphatase Total Protein Albumin Vitamin B12 TSH Blood Type Antibody Screen Crossmatch Active Medications Generic Name Dose Route Start Last Admin Trade Name Freq PRN Reason Stop Dose Admin Acetaminophen 1,000 mg 09/14/18 11:20 09/14/18 23:47 Ofirmev Injection - IVPB 1,000 mg Q6H PRN Administration PAIN OR FEVER Atorvastatin Calcium 40 mg 09/12/18 22:00 09/14/18 23:02 Lipitor - PO Not Given HS JAMIE Gabapentin 400 mg 09/12/18 22:00 09/14/18 23:02 Neurontin - PO Not Given BID JAMIE Sodium Chloride 1,000 mls @ 125 mls/hr 09/12/18 23:36 09/14/18 23:46 Normal Saline - IV 125 mls/hr ASDIR JAMIE Administration Cefepime HCl 2 gm/ Dextrose 100 mls @ 100 mls/hr 09/13/18 18:00 09/15/18 01: 18 IVPB 100 mls/hr Q8H-IV JAMIE Administration Protocol Vancomycin HCl 1,250 mg/ 250 mls @ 125 mls/hr 09/14/18 11:00 09/14/18 23:46 Dextrose IVPB 125 mls/hr Q12H JAMIE Administration Protocol Metoprolol Succinate 25 mg 09/12/18 22:00 09/14/18 23:03 Toprol Xl - PO Not Given BID JAMIE Pantoprazole Sodium 40 mg 09/13/18 10:00 09/14/18 11:34 Protonix Iv IVPB 40 mg DAILY JAMIE Administration Ranitidine HCl 150 mg 09/13/18 22:00 09/14/18 23:03 Zantac - PO Not Given BID JAMIE Vancomycin HCl 125 mg 09/14/18 12:00 09/15/18 06:17 Vancomycin Oral Solution PO Not Given Q6HPO [facility] ASSESSMENT/PLAN: 72yo M with PMH of MM, Colon Ca s/p resection with liver metastasis started chemotherapy on 09/06/18, HTN, Afib (on Eliquis), DM admitted for suspected neutropenic fever. #ID -H/o MM, Chemotherapy 09/06/18 -WBC 1.9 on admission, 1.2 today -ANC 0.7 today -Neutropenic fever -Sepsis 2/2 MRSA bacteremia -Positive C.diff antigen -Port removed yesterday, gram stain and cultures of site pending, portacath and tip cultures pending -Tylenol for fevers -Vancomycin and Cefepime per ID, oral vancomycin -Contact precautions -ID consulting -Rpt BCx (>48h since starting abx) #HEME/ONC -H/o MM -Pancytopenia -Given 3u plt yesterday and 1u prbc -Hgb 7.0 today, plt 56 -Heme consulting -Transfuse to keep Hgb >7? -Fibrinogen wnl, D-dimer elevated #GI -H/o Colon Ca s/p resection -Denies melena/blood in stools -Positive C. diff antigen -Oral vancomycin -One time order for Zofran 4mg IVPB for nausea #CARDIO/VASC -H/o Afib (on Eliquis) -HR is controlled -Holding off Eliquis due to pancytopenia -Toprol XL 25mg BID -Echo: EF 60%, Impaired LV relaxation, No mitral vegetations seen, unable to r/o aortic, pulm and tricuspid valve vegetations due to limited views #FEN -NS @125ml/hr -Can resume normal diet? -Monitor and replace lytes prn -Repleting Ph today (1.3) will repeat bmp in 6h (morning chemistries hemolyzed, repeat ordered) #PPx -thrombocytopenic and anemic, holding off on AC -Protonix IV Dispo: Stable for transfer to floors. Visit type - Emergency Visit Emergency Visit: Yes ED Registration Date: 09/12/18 Care time: The patient presented to the Emergency Department on the above date and was hospitalized for further evaluation of their emergent condition. - New Patient This patient is new to me today: Yes Date on this admission: 09/15/18 - Critical Care Critical Care patient: Yes Total Critical Care Time (in minutes): 35 Critical Care Statement: The care of this patient involved high complexity decision making to prevent further life threatening deterioration of the patient 's condition and/or to evaluate & treat vital organ system(s) failure or risk of failure.
[2018-09-15] MEDS ORDERED: POTASSIUM PHOSPHATE 40 MM in DEXTROSE 5%-WATER - 500 ML IVPB ONE (08:30)
[2018-09-15] MEDS: GABAPENTIN 400 MG CAPSULE (FP) PO SCH ×3 (10:00→22:13)
[2018-09-15] MEDS ORDERED: PT OWN MED DRAWER 7, Y5N ONE ×2 (10:00→17:32)
[2018-09-15] MEDS: metoPROLOL SUCCINATE 25 MG TAB.SR.24H (FP) PO SCH ×3 (10:00→22:13)
--- NOTE | 2018-09-15 10:10 | PN ---
Progress Note (short form) - Note Progress Note: transferred to ICU for persistent fever, thrombocytopenia, neutropenia, hypokalemia pt is awake Pt kept NPO as he was vomiting yesterday after eating Vital Signs - 24 hr 09/14/18 09/14/18 09/14/18 13:45 16:00 17:57 Temperature 100.2 F H 100.8 F H 101.7 F H Pulse Rate 98 H 102 H 96 H Respiratory 20 22 H 22 H Rate Blood Pressure 96/60 116/60 100/48 L O2 Sat by Pulse Oximetry (%) 09/14/18 09/14/18 09/14/18 20:00 21:00 22:00 Temperature Pulse Rate 88 101 H 92 H Respiratory 18 17 18 Rate Blood Pressure 101/63 99/57 L 95/60 O2 Sat by Pulse 97 Oximetry (%) 09/14/18 09/15/18 09/15/18 23:00 00:00 02:00 Temperature 102.0 F H 98.7 F Pulse Rate 93 H 70 80 Respiratory 18 22 H 17 Rate Blood Pressure 101/55 L 89/58 L 86/55 L O2 Sat by Pulse Oximetry (%) 09/15/18 09/15/18 09/15/18 04:00 06:00 07:00 Temperature 68 F L 98.7 F Pulse Rate 68 87 79 Respiratory 18 26 H 20 Rate Blood Pressure 105/61 127/70 123/73 O2 Sat by Pulse Oximetry (%) 09/15/18 09/15/18 08:46 09:02 Temperature Pulse Rate 79 Respiratory 18 20 Rate Blood Pressure 138/57 L O2 Sat by Pulse 100 99 Oximetry (%) Current Medications Generic Name Dose Route Start Last Admin Trade Name Freq PRN Reason Stop Dose Admin Acetaminophen 1,000 mg 09/14/18 11:20 09/14/18 23:47 Ofirmev Injection - IVPB 1,000 mg Q6H PRN Administration PAIN OR FEVER Atorvastatin Calcium 40 mg 09/12/18 22:00 09/14/18 23:02 Lipitor - PO Not Given HS JAMIE Gabapentin 400 mg 09/12/18 22:00 09/15/18 10:24 Neurontin - PO 400 mg BID JAMIE Administration Cefepime HCl 2 gm/ Dextrose 100 mls @ 100 mls/hr 09/13/18 18:00 09/15/18 10: 25 IVPB 100 mls/hr Q8H-IV JAMIE Administration Protocol Vancomycin HCl 1,250 mg/ 250 mls @ 125 mls/hr 09/14/18 11:00 09/15/18 10:25 Dextrose IVPB 125 mls/hr Q12H JAMIE Administration Protocol Potassium Phosphate 40 mm/ 513.3333 mls @ 64.16 mls/hr 09/15/18 08:30 10:23 Dextrose IVPB 09/15/18 16:30 64.16 mls/hr ONCE ONE Administration 40 MM/8 HR Dextrose/Sodium Chloride 1,000 mls @ 125 mls/hr 09/15/18 11:30 09/15/18 12:24 D5-Ns - IV 125 mls/hr ASDIR JAMIE Administration Metoprolol Succinate 25 mg 09/12/18 22:00 09/15/18 10:24 Toprol Xl - PO 25 mg BID JAMIE Administration Pantoprazole Sodium 40 mg 09/13/18 10:00 09/15/18 11:21 Protonix Iv IVPB 40 mg DAILY JAMIE Administration Ranitidine HCl 150 mg 09/13/18 22:00 09/15/18 10:15 Zantac - PO Not Given BID JAMIE Vancomycin HCl 125 mg 09/14/18 12:00 09/15/18 11:24 Vancomycin Oral Solution PO 125 mg Q6HPO JAMIE Administration Laboratory Results - last 24 hr 09/14/18 09/14/18 09/14/18 06:30 06:30 09:50 WBC RBC Hgb Hct MCV MCH MCHC RDW Plt Count MPV Absolute Neuts (auto) Neutrophils % Neutrophils % (Manual) 53.6 D Band Neutrophils % 7.1 Lymphocytes % Lymphocytes % (Manual) 32.1 D Monocytes % Monocytes % (Manual) 4 D Eosinophils % Eosinophils % (Manual) 3.6 D Basophils % Basophils % (Manual) 0.0 Myelocytes % (Man) 0 Promyelocytes % (Man) 0 Blast Cells % (Manual) 0 Nucleated RBC % Metamyelocytes 0 Hypochromia 0 Platelet Estimate Decreased Polychromasia 0 Poikilocytosis 2+ Anisocytosis 1+ Microcytosis 1+ Macrocytosis 1+ Tear Drop Cells 1+ Ovalocytes 1+ Schistocytes 1+ Sodium Potassium 2.9 L* Chloride Carbon Dioxide Anion Gap BUN Creatinine Est GFR (CKD-EPI)AfAm Est GFR (CKD-EPI)NonAf Random Glucose Calcium Phosphorus Magnesium Blood Type O POSITIVE Antibody Screen Negative Crossmatch See Detail 09/14/18 09/14/18 09/14/18 13:52 20:40 20:40 WBC 1.1 L* 1.2 L* RBC 2.47 L 2.59 L Hgb 6.7 L* 7.0 L Hct 21.3 L 22.5 L MCV 86.1 86.9 MCH 27.2 27.1 MCHC 31.6 L 31.2 L RDW 19.3 H 18.6 H Plt Count 31 L* D 56 L D MPV 8.9 D 7.6 D Absolute Neuts (auto) Neutrophils % No Result Required. Neutrophils % (Manual) 71.0 D Band Neutrophils % 9.0 Lymphocytes % No Result Required. Lymphocytes % (Manual) 14.0 D Monocytes % Monocytes % (Manual) 5 Eosinophils % Eosinophils % (Manual) Basophils % Basophils % (Manual) Myelocytes % (Man) Promyelocytes % (Man) Blast Cells % (Manual) Nucleated RBC % 0 Metamyelocytes 1 D Hypochromia 2+ Platelet Estimate Decreased Polychromasia Poikilocytosis Anisocytosis 2+ Microcytosis 2+ Macrocytosis Tear Drop Cells 2+ Ovalocytes 2+ Schistocytes Sodium 140 Potassium 3.5 Chloride 114 H Carbon Dioxide 19 L Anion Gap 8 BUN 14 Creatinine 1.3 Est GFR (CKD-EPI)AfAm 63.18 Est GFR (CKD-EPI)NonAf 54.51 Random Glucose 119 H Calcium 7.2 L Phosphorus 1.3 L Magnesium 1.8 Blood Type Antibody Screen Crossmatch 09/15/18 09/15/18 09/15/18 05:30 05:30 10:45 WBC 1.0 L* RBC 2.56 L Hgb 7.1 L Hct 21.8 L MCV 85.2 MCH 27.7 MCHC 32.5 RDW 18.6 H Plt Count 56 L MPV 8.7 D Absolute Neuts (auto) 0.7 L Neutrophils % 71.9 Neutrophils % (Manual) 70.0 Band Neutrophils % 4.0 Lymphocytes % 19.6 D Lymphocytes % (Manual) 17.0 D Monocytes % 5.7 D Monocytes % (Manual) 5 Eosinophils % 1.4 Eosinophils % (Manual) 1.0 Basophils % 1.4 D Basophils % (Manual) 0.0 Myelocytes % (Man) 0 Promyelocytes % (Man) 0 Blast Cells % (Manual) 0 Nucleated RBC % 0 Metamyelocytes 1 Hypochromia 0 Platelet Estimate Decreased Polychromasia 0 Poikilocytosis 2+ Anisocytosis 1+ Microcytosis 1+ Macrocytosis 1+ Tear Drop Cells 1+ Ovalocytes 1+ Schistocytes 1+ Sodium Cancelled 142 Potassium Cancelled 3.1 L Chloride Cancelled 116 H Carbon Dioxide Cancelled 18 L Anion Gap Cancelled 8 BUN Cancelled 13 Creatinine Cancelled 1.0 Est GFR (CKD-EPI)AfAm Cancelled 86.76 Est GFR (CKD-EPI)NonAf Cancelled 74.86 Random Glucose Cancelled 97 Calcium Cancelled 7.3 L Phosphorus 1.0 L* Magnesium Cancelled 2.0 Blood Type Antibody Screen Crossmatch S1 S2 RRR Pale Lungs decreased breath sounds Abd- soft,NT no edema ICU monitoring IV antibiotics -- cultures all positive for MRSA needs portacath removed-- needs platelets to be transfused ?IvIG continue with meds IV fluids NPO eliquis on hold prognosis guarded replace lytes cdiff positive Problem List - Problems (1) Neutropenic sepsis Code(s): A41.9 - SEPSIS, UNSPECIFIED ORGANISM; D70.9 - NEUTROPENIA, UNSPECIFIED (2) Atrial fibrillation Code(s): I48.91 - UNSPECIFIED ATRIAL FIBRILLATION Qualifiers: Atrial fibrillation type: chronic Qualified Code(s): I48.2 - Chronic atrial fibrillation (3) History of colon cancer Code(s): Z85.038 - PERSONAL HISTORY OF MALIGNANT NEOPLASM OF LARGE INTESTINE (4) Multiple myeloma Code(s): C90.00 - MULTIPLE MYELOMA NOT HAVING ACHIEVED REMISSION Qualifiers: Multiple myeloma remission status: unspecified Qualified Code(s): C90.00 - Multiple myeloma not having achieved remission (5) Sepsis Code(s): A41.9 - SEPSIS, UNSPECIFIED ORGANISM Qualifiers: Sepsis type: sepsis due to unspecified organism Qualified Code(s): A41.9 - Sepsis, unspecified organism (6) Anemia Code(s): D64.9 - ANEMIA, UNSPECIFIED Qualifiers: Anemia type: unspecified type Qualified Code(s): D64.9 - Anemia, unspecified
[2018-09-15] MEDS: RANITIDINE HCL 150 MG TABLET (FP) PO SCH ×3 (10:15→22:13)
[2018-09-15] MEDS: ONDANSETRON 4 MG/2 ML VIAL IVPB ONE ×2 (10:24→11:20)
[2018-09-15] MEDS: PANTOPRAZOLE SODIUM 40 MG VIAL IVPB SCH ×2 (10:24→11:21)
[2018-09-15] MEDS: VANCOMYCIN HCL 1,250 MG in DEXTROSE 5%-WATER - 250 ML IVPB SCH (10:25)
--- NOTE | 2018-09-15 10:40 | PN ---
Teaching Attending Note Name of Resident: Sharon Burton ATTENDING PHYSICIAN STATEMENT I saw and evaluated the patient. I reviewed the resident's note and discussed the case with the resident. I agree with the resident's findings and plan as documented. SUBJECTIVE: Pt seen and examined in the ICU. Port removed. Fever curve trending down. Transfused 3 units platelets prior to port removal. Has been hemodynamically stable. OBJECTIVE: Vital Signs Period Temp Pulse Resp BP Sys/Max Pulse Ox Last 24 Hr 68 F-102.0 F 68-102 17-26 86-138/48-73 97-100 Intake & Output 09/12/18 09/13/18 09/14/18 09/15/18 23:59 23:59 23:59 23:59 Intake Total 1300 2200 4700 Output Total 300 Balance 1300 2200 4700 -300 Weight 92.896 kg 92.533 kg 85.684 kg Gen: NAD at rest Chest: 3-4cm area of ecchymosis Heart: RRR Lung: decreased breath sounds at the bases Abd: soft, nontender Ext: no edema CBC, BMP 09/15/18 05:30 09/15/18 05:30 Active Medications Acetaminophen (Ofirmev Injection -) 1,000 mg IVPB Q6H PRN PRN Reason: PAIN OR FEVER Last Admin: 09/14/18 23:47 Dose: 1,000 mg Atorvastatin Calcium (Lipitor -) 40 mg PO HS JAMIE Last Admin: 09/14/18 23:02 Dose: Not Given Gabapentin (Neurontin -) 400 mg PO BID JAMIE Last Admin: 09/15/18 10:24 Dose: 400 mg Sodium Chloride (Normal Saline -) 1,000 mls @ 125 mls/hr IV ASDIR JAMIE Last Admin: 09/14/18 23:46 Dose: 125 mls/hr Cefepime HCl 2 gm/ Dextrose 100 mls @ 100 mls/hr IVPB Q8H-IV JAMIE; Protocol Last Admin: 09/15/18 10:25 Dose: 100 mls/hr Vancomycin HCl 1,250 mg/ (Dextrose) 250 mls @ 125 mls/hr IVPB Q12H JAMIE; Protocol Last Admin: 09/15/18 10:25 Dose: 125 mls/hr Potassium Phosphate 40 mm/ (Dextrose) 513.3333 mls @ 64.16 mls/hr IVPB ONCE ONE Stop: 09/15/18 16:30 Last Admin: 09/15/18 10:23 Dose: 64.16 mls/hr Metoprolol Succinate (Toprol Xl -) 25 mg PO BID [facility] Last Admin: 09/15/18 10:24 Dose: 25 mg Pantoprazole Sodium (Protonix Iv) 40 mg IVPB DAILY [facility] Last Admin: 09/15/18 10:24 Dose: 40 mg Ranitidine HCl (Zantac -) 150 mg PO BID [facility] Last Admin: 09/15/18 10:24 Dose: 150 mg Vancomycin HCl (Vancomycin Oral Solution) 125 mg PO Q6HPO [facility] Last Admin: 09/15/18 06:17 Dose: Not Given ASSESSMENT AND PLAN: MRSA Bacteremia r/o Port Infection +C diff Ag Neutropenic Sepsis Thrombocytopenia Anemia Metastatic Colon Ca on chemotherapy Multiple Myeloma Atrial Fibrillation HTN DM - antibiotics per ID - f/u cultures - port removed - monitor CBC, coags, fibrinogen level - transfuse as needed - if persistently bacteremic, may need RANDY - IVF - can monitor on floor
[2018-09-15] MEDS ORDERED: ONDANSETRON 4 MG/2 ML VIAL ONE (10:57)
[2018-09-15 11:27] LABS: ANISOCYTOSIS 1+; MACROCYTOSIS 1+; OVALOCYTE 1+; PLATELET ESTIMATE DECREASED; TEAR DROP CELLS 1+
--- NOTE | 2018-09-15 11:49 | PN ---
Progress Note, MATERIAL ATTENDANT - Note Progress Note: Selected Entries 09/14/18 09/14/18 09/14/18 02:00 06:00 06:15 Temperature 99.0 F 103.0 F H 102.2 F H 09/14/18 09/14/18 09/14/18 06:34 08:00 12:16 Temperature 101.2 F H 100.4 F H 100.2 F H 09/14/18 09/14/18 09/14/18 12:33 13:45 16:00 Temperature 100.2 F H 100.2 F H 100.8 F H 09/14/18 09/14/18 09/15/18 17:57 23:00 02:00 Temperature 101.7 F H 102.0 F H 98.7 F 09/15/18 09/15/18 04:00 06:00 Temperature 68 F L 98.7 F Laboratory Tests 09/14/18 09/15/18 06:30 05:30 WBC 0.6 L* 1.0 L* Reviewed pt's medical h/o heaving/PEG insertion last year with Medical Team. Pt still heaving, unable to take more than occasional sips of soda. Pt. having greenish diarrhea,per nursing. Consider GI consult-seen by Dr. Fuller last year Neuro f/u Indication for empirical tx for possible Jenifer esophagitis? No pain. No oral thrush observed Consider Clinimix? RD re nutritional support
[2018-09-15 11:59] LABS: CALCIUM 7.3 mg/dL (8.5-10.1); POTASSIUM 3.1 mmol/L (3.5-5.1)
[2018-09-15] MEDS: DEXTROSE 5%-NORMAL SALINE 1,000 ML IV SCH (12:24)
[2018-09-15] MEDS: ACETAMINOPHEN 1000 MG/100 ML VIAL (NON FORMULARY) IVPB PRN (13:59)
--- NOTE | 2018-09-15 16:19 | PN ---
Progress Note (short form) - Note Progress Note: Patient seen and examined Remains weak and debilitated Port removed MRSA bacteremia C.diff Antigen Diarrhea Some SOB and dyspnea on minimal exertion in bed Last Vital Signs Temp Pulse Resp BP Pulse Ox 98.7 F 79 20 138/57 L 99 09/15/18 06:00 09/15/18 08:46 09/15/18 09:02 09/15/18 08:46 09/15/18 09:02 HEENT: SAY, EOM Intact, Oropharynx: No thrush, No mucositis ,petechiae upper pharynx Cor: RSR, No murmurs, No gallops Lungs:decreased breath sounds, poor inspiratory effort Abd: Soft, Normal bowel sounds, No organomegaly Ext:No significant edema Skin: No rashes, Integument intact CBC, BMP 09/15/18 05:30 INR, PTT INR 1.28 (0.83-1.09) H 09/14/18 10:55 Fibrinogen 458.0 mg/dL (238-498) 09/14/18 10:55 Abnormal Lab Results 09/14/18 09/14/18 09/14/18 09:50 20:40 20:40 WBC 1.2 L* RBC 2.59 L Hgb 7.0 L Hct 22.5 L MCHC 31.2 L RDW 18.6 H Plt Count 56 L D Absolute Neuts (auto) Potassium Chloride 114 H Carbon Dioxide 19 L Random Glucose 119 H Calcium 7.2 L Phosphorus 1.3 L Crossmatch See Detail 09/15/18 09/15/18 05:30 10:45 WBC 1.0 L* RBC 2.56 L Hgb 7.1 L Hct 21.8 L MCHC RDW 18.6 H Plt Count 56 L Absolute Neuts (auto) 0.7 L Potassium 3.1 L Chloride 116 H Carbon Dioxide 18 L Random Glucose Calcium 7.3 L Phosphorus 1.0 L* Crossmatch Current Medications Generic Name Dose Route Start Last Admin Trade Name Freq PRN Reason Stop Dose Admin Acetaminophen 1,000 mg 09/14/18 11:20 09/15/18 13:59 Ofirmev Injection - IVPB 1,000 mg Q6H PRN Administration PAIN OR FEVER Atorvastatin Calcium 40 mg 09/12/18 22:00 09/14/18 23:02 Lipitor - PO Not Given HS JAMIE Gabapentin 400 mg 09/12/18 22:00 09/15/18 10:24 Neurontin - PO 400 mg BID JAMIE Administration Cefepime HCl 2 gm/ Dextrose 100 mls @ 100 mls/hr 09/13/18 18:00 09/15/18 10: 25 IVPB 100 mls/hr Q8H-IV JAMIE Administration Protocol Vancomycin HCl 1,250 mg/ 250 mls @ 125 mls/hr 09/14/18 11:00 09/15/18 10:25 Dextrose IVPB 125 mls/hr Q12H JAMIE Administration Protocol Potassium Phosphate 40 mm/ 513.3333 mls @ 64.16 mls/hr 09/15/18 08:30 10:23 Dextrose IVPB 09/15/18 16:30 64.16 mls/hr ONCE ONE Administration 40 MM/8 HR Dextrose/Sodium Chloride 1,000 mls @ 125 mls/hr 09/15/18 11:30 09/15/18 12:24 D5-Ns - IV 125 mls/hr ASDIR JAMIE Administration Metoprolol Succinate 25 mg 09/12/18 22:00 09/15/18 10:24 Toprol Xl - PO 25 mg BID JAMIE Administration Pantoprazole Sodium 40 mg 09/13/18 10:00 09/15/18 11:21 Protonix Iv IVPB 40 mg DAILY JAMIE Administration Ranitidine HCl 150 mg 09/13/18 22:00 09/15/18 10:15 Zantac - PO Not Given BID JAMIE Vancomycin HCl 125 mg 09/14/18 12:00 09/15/18 11:24 Vancomycin Oral Solution PO 125 mg Q6HPO JAMIE Administration Impression: MRSA- bacteremia Port removed Pancytopenia C.difficile Ag ?Dysphagia Plan: transfuse packed cells Neupogen Neurology /GI - f/u for dysphagia Antibiotic treatment per ID.
[2018-09-15 16:26] LABS: CALCIUM 7.1 mg/dL (8.5-10.1)
--- NOTE | 2018-09-15 16:26 | PN ---
Progress Note, Physician History of Present Illness: PORT REMOVED YESTERDAY NO C/O PAIN AT PORT SITE C/O GENERALIZED WEAKNESS, LOOSE BMS X3 TODAY REMAINS FEBRILE 101 REPEAT BC OBTAINED - Current Medication List Current Medications: Active Medications Acetaminophen (Ofirmev Injection -) 1,000 mg IVPB Q6H PRN PRN Reason: PAIN OR FEVER Last Admin: 09/15/18 13:59 Dose: 1,000 mg Atorvastatin Calcium (Lipitor -) 40 mg PO HS JAMIE Last Admin: 09/14/18 23:02 Dose: Not Given Gabapentin (Neurontin -) 400 mg PO BID JAMIE Last Admin: 09/15/18 10:24 Dose: 400 mg Cefepime HCl 2 gm/ Dextrose 100 mls @ 100 mls/hr IVPB Q8H-IV JAMIE; Protocol Last Admin: 09/15/18 10:25 Dose: 100 mls/hr Vancomycin HCl 1,250 mg/ (Dextrose) 250 mls @ 125 mls/hr IVPB Q12H JAMIE; Protocol Last Admin: 09/15/18 10:25 Dose: 125 mls/hr Potassium Phosphate 40 mm/ (Dextrose) 513.3333 mls @ 64.16 mls/hr IVPB ONCE ONE Stop: 09/15/18 16:30 Last Admin: 09/15/18 10:23 Dose: 64.16 mls/hr Dextrose/Sodium Chloride (D5-Ns -) 1,000 mls @ 125 mls/hr IV ASDIR JAMIE Last Admin: 09/15/18 12:24 Dose: 125 mls/hr Metoprolol Succinate (Toprol Xl -) 25 mg PO BID [facility] Last Admin: 09/15/18 10:24 Dose: 25 mg Pantoprazole Sodium (Protonix Iv) 40 mg IVPB DAILY JAMIE Last Admin: 09/15/18 11:21 Dose: 40 mg Ranitidine HCl (Zantac -) 150 mg PO BID JAMIE Last Admin: 09/15/18 10:15 Dose: Not Given Vancomycin HCl (Vancomycin Oral Solution) 125 mg PO Q6HPO JAMIE Last Admin: 09/15/18 11:24 Dose: 125 mg - Objective Vital Signs: Vital Signs Temperature 98.7 F 09/15/18 06:00 Pulse Rate 79 09/15/18 08:46 Respiratory Rate 20 09/15/18 09:02 Blood Pressure 138/57 L 09/15/18 08:46 O2 Sat by Pulse Oximetry (%) 99 09/15/18 09:02 Constitutional: Yes: No Distress Cardiovascular: Yes: Regular Rate and Rhythm, S1, S2 Respiratory: Yes: Diminished Gastrointestinal: Yes: Normal Bowel Sounds, Soft, Abdomen, Obese. No: Tenderness Edema: No Labs: CBC, BMP 09/15/18 05:30 INR, PTT INR 1.28 (0.83-1.09) H 09/14/18 10:55 Fibrinogen 458.0 mg/dL (238-498) 09/14/18 10:55 Assessment/Plan MRSA BACTEREMIA/ SEPSIS PROBABLE INFECTED PORT S/P REMOVAL NEUTROPENIA/PANCYTOPENIA THROMBOCYTOPENIA + C DIFF AZOTEMIA IMPROVED METASTATIC CA S/P CHEMO CHECK REPEAT BC WILL SUBSTITUTE DAPTOMYCIN @ 8MG/KG CONTINUE CEFEPIME PO VANCO NEUTROPENIC PRECAUTIONS PROGNOSIS GUARDED
[2018-09-15] MEDS ORDERED: TBO-FILGRASTIM 480 MCG/0.8 ML DISP.SYRIN SQ STA (16:32)
[2018-09-15] MEDS: DAPTOMYCIN 700 MG in SODIUM CHLORIDE 50 ML IVPB SCH (19:29)
[2018-09-15] MEDS: ATORVASTATIN CA 40 MG TABLET (FP) PO SCH (22:12)
[2018-09-16] MEDS: VANCOMYCIN 250 MG/5 ML ORAL SOLUTION PO SCH ×4 (00:25→17:50)
[2018-09-16] MEDS: ACETAMINOPHEN 1000 MG/100 ML VIAL (NON FORMULARY) IVPB PRN ×3 (00:25→18:37)
[2018-09-16] MEDS ORDERED: PT OWN MED DRAWER 7, Y5N ONE ×5 (02:23→17:59)
[2018-09-16] MEDS: CEFEPIME 2 GM in DEXTROSE 5%-WATER 100 ML IVPB SCH ×3 (02:29→17:50)
[2018-09-16 06:41] LABS: BASO % 0.5 % (0-2.0); EOS % 2.5 % (0-4.5); HEMOGLOBIN 7.6 GM/dL (11.7-16.9); LYMPH % 25.1 % (8-40); MCH 27.7 pg (25.7-33.7); MCHC 32.9 g/dl (32.0-35.9); MEAN CELL VOLUME 84.1 fl (80-96); MEAN PLT VOLUME 9.1 fl (7.5-11.1); MONO % 10.1 % (3.8-10.2); NEUT % 61.8 % (42.8-82.8); PLATELET COUNT 37 K/MM3 (134-434); RBC 2.73 M/mm3 (4.00-5.60); RDW 17.4 % (11.9-15.9)
[2018-09-16 06:58] LABS: PHOSPHOROUS 1.8 mg/dL (2.5-4.9); TOT PROT 4.9 g/dl (6.4-8.2)
[2018-09-16 07:09] LABS: POTASSIUM 2.8 mmol/L (3.5-5.1)
--- NOTE | 2018-09-16 07:20 | PN ---
Physical Exam: SUBJECTIVE: Patient seen and examined at bedside. No acute events overnight. Spiking fevers up to 103. He states he is feeling better today but still weak. Endorses some abdominal discomfort due to coughs which is occasionally productive of white sputum. He states his swallowing is better, is tolerating sips of juice. OBJECTIVE: Vital Signs Period Temp Pulse Resp BP Sys/Max Pulse Ox Last 24 Hr 98.6 F-103.1 F 71-104 17-35 99-147/55-85 99-100 GENERAL: The patient is awake, alert, and fully oriented, in no acute distress. EYES: PERRL, extraocular movements intact, sclera anicteric, conjunctiva clear. No ptosis. LUNGS: Breath sounds equal, clear to auscultation bilaterally, no wheezes, no crackles, no accessory muscle use. HEART: Regular rate and rhythm, S1, S2 without murmur, rub or gallop. ABDOMEN: Soft, nontender, nondistended, normoactive bowel sounds, no guarding, no rebound, no hepatosplenomegaly, no masses. EXTREMITIES: 2+ pulses, warm, well-perfused, no edema. NEUROLOGICAL: Cranial nerves II through XII grossly intact. Normal speech, gait not observed. SKIN: Bruising at catheter site Laboratory Results - last 24 hr 09/14/18 09/15/18 09/15/18 09:50 05:30 10:45 WBC RBC Hgb Hct MCV MCH MCHC RDW Plt Count MPV Absolute Neuts (auto) Neutrophils % Neutrophils % (Manual) 70.0 Band Neutrophils % 4.0 Lymphocytes % Lymphocytes % (Manual) 17.0 D Monocytes % Monocytes % (Manual) 5 Eosinophils % Eosinophils % (Manual) 1.0 Basophils % Basophils % (Manual) 0.0 Myelocytes % (Man) 0 Promyelocytes % (Man) 0 Blast Cells % (Manual) 0 Nucleated RBC % Metamyelocytes 1 Hypochromia 0 Platelet Estimate Decreased Polychromasia 0 Poikilocytosis 2+ Anisocytosis 1+ Microcytosis 1+ Macrocytosis 1+ Tear Drop Cells 1+ Ovalocytes 1+ Schistocytes 1+ Fibrinogen Sodium 142 Potassium 3.1 L Chloride 116 H Carbon Dioxide 18 L Anion Gap 8 BUN 13 Creatinine 1.0 Est GFR (CKD-EPI)AfAm 86.76 Est GFR (CKD-EPI)NonAf 74.86 Random Glucose 97 Calcium 7.3 L Phosphorus 1.0 L* Magnesium 2.0 Total Bilirubin AST ALT Alkaline Phosphatase Total Protein Albumin Blood Type O POSITIVE Antibody Screen Negative Crossmatch See Detail 09/15/18 09/15/18 09/16/18 15:00 15:00 05:15 WBC 0.7 L* RBC 2.73 L Hgb 7.6 L Hct 23.0 L MCV 84.1 MCH 27.7 MCHC 32.9 RDW 17.4 H Plt Count 37 L D MPV 9.1 Absolute Neuts (auto) 0.4 L Neutrophils % 61.8 Neutrophils % (Manual) Band Neutrophils % Lymphocytes % 25.1 D Lymphocytes % (Manual) Monocytes % 10.1 Monocytes % (Manual) Eosinophils % 2.5 Eosinophils % (Manual) Basophils % 0.5 Basophils % (Manual) Myelocytes % (Man) Promyelocytes % (Man) Blast Cells % (Manual) Nucleated RBC % 0 Metamyelocytes Hypochromia Platelet Estimate Polychromasia Poikilocytosis Anisocytosis Microcytosis Macrocytosis Tear Drop Cells Ovalocytes Schistocytes Fibrinogen 442.0 Sodium 141 Potassium 3.0 L Chloride 115 H Carbon Dioxide 19 L Anion Gap 7 L BUN 12 Creatinine 1.0 Est GFR (CKD-EPI)AfAm 86.76 Est GFR (CKD-EPI)NonAf 74.86 Random Glucose 152 H Calcium 7.1 L Phosphorus Magnesium Total Bilirubin AST ALT Alkaline Phosphatase Total Protein Albumin Blood Type Antibody Screen Crossmatch 09/16/18 05:15 WBC RBC Hgb Hct MCV MCH MCHC RDW Plt Count MPV Absolute Neuts (auto) Neutrophils % Neutrophils % (Manual) Band Neutrophils % Lymphocytes % Lymphocytes % (Manual) Monocytes % Monocytes % (Manual) Eosinophils % Eosinophils % (Manual) Basophils % Basophils % (Manual) Myelocytes % (Man) Promyelocytes % (Man) Blast Cells % (Manual) Nucleated RBC % Metamyelocytes Hypochromia Platelet Estimate Polychromasia Poikilocytosis Anisocytosis Microcytosis Macrocytosis Tear Drop Cells Ovalocytes Schistocytes Fibrinogen Sodium 141 Potassium 2.8 L* Chloride 114 H Carbon Dioxide 18 L Anion Gap 9 BUN 9 Creatinine 1.0 Est GFR (CKD-EPI)AfAm 86.76 Est GFR (CKD-EPI)NonAf 74.86 Random Glucose 176 H Calcium 7.0 L Phosphorus 1.8 L Magnesium 2.0 Total Bilirubin 1.0 AST 62 H ALT 33 Alkaline Phosphatase 103 Total Protein 4.9 L Albumin 2.0 L Blood Type Antibody Screen Crossmatch Active Medications Generic Name Dose Route Start Last Admin Trade Name Faustino PRN Reason Stop Dose Admin Atorvastatin Calcium 40 mg 09/12/18 22:00 09/15/18 22:12 Lipitor - PO Not Given HS JAMIE Gabapentin 400 mg 09/12/18 22:00 09/15/18 22:13 Neurontin - PO Not Given BID JAMIE Cefepime HCl 2 gm/ Dextrose 100 mls @ 100 mls/hr 09/13/18 18:00 09/16/18 02: 29 IVPB 100 mls/hr Q8H-IV JAMIE Administration Protocol Dextrose/Sodium Chloride 1,000 mls @ 125 mls/hr 09/15/18 11:30 09/15/18 12:24 D5-Ns - IV 125 mls/hr ASDIR JAMIE Administration Daptomycin 700 mg/ Sodium 50 mls @ 100 mls/hr 09/15/18 16:30 09/15/18 19:29 Chloride IVPB 100 mls/hr DAILY JAMIE Administration Protocol Metoprolol Succinate 25 mg 09/12/18 22:00 09/15/18 22:13 Toprol Xl - PO Not Given BID JAMIE Pantoprazole Sodium 40 mg 09/13/18 10:00 09/15/18 11:21 Protonix Iv IVPB 40 mg DAILY JAMIE Administration Ranitidine HCl 150 mg 09/13/18 22:00 09/15/18 22:13 Zantac - PO Not Given BID JAMIE Tbo-Filgrastim 480 mcg 09/16/18 10:00 Granix - SQ DAILY JAMIE Vancomycin HCl 125 mg 09/14/18 12:00 09/16/18 00:25 Vancomycin Oral Solution PO 125 mg Q6HPO JAMIE Administration ASSESSMENT/PLAN: 72yo M with PMH of MM, Colon Ca s/p resection with liver metastasis started chemotherapy on 09/06/18, HTN, Afib (on Eliquis), DM admitted for suspected neutropenic fever. #ID -H/o MM, Chemotherapy 09/06/18 -WBC 1.9 on admission, 1.2 today -ANC 0.7 today -Neutropenic fever -Sepsis 2/2 MRSA bacteremia -Positive C.diff antigen -Port site and portacath gram stain: coagulase positive staph -Tylenol for fevers -Vancomycin, Daptomycin and Cefepime per ID, oral vancomycin -Contact precautions -ID consulting -Rpt BCx pending #HEME/ONC -H/o MM -Pancytopenia -Hgb 7.6 today, plt 37 -Heme consulting -Transfuse to keep Hgb >7 -WBC 0.7 today -Granix #GI -H/o Colon Ca s/p resection -Denies melena/blood in stools -Positive C. diff antigen -Oral vancomycin -Patient having difficulty with swallowing. Speech eval done, patient does not have issues with initial swallow; swallowing better today -Has had similar problem in the past which required PEG which was removed afterward with improved swallowing -Per Dr. Monaco, pt received IVIG in past which improved symptoms, given outpt -H/o of candidial esophagitis in past however no oral thrush on this admission -Consult GI (has seen Dr. Fuller in the past); appreciate recs -D5 NS @125ml/hr #CARDIO/VASC -H/o Afib (on Eliquis) -HR is controlled -Holding off Eliquis due to pancytopenia -Toprol XL 25mg BID -Echo: EF 60%, Impaired LV relaxation, No mitral vegetations seen, unable to r/o aortic, pulm and tricuspid valve vegetations due to limited views -Consider RANDY if blood cultures continue to be positive #FEN -D5NS@125ml/hr, advance diet as tolerated -Monitor and replace lytes prn -Repleting P and K, monitor and replete lytes as necessary #PPx -Thrombocytopenic and anemic, holding off on AC -Protonix IV Dispo: Stable for transfer to floors. Visit type - Emergency Visit Emergency Visit: Yes ED Registration Date: 09/12/18 Care time: The patient presented to the Emergency Department on the above date and was hospitalized for further evaluation of their emergent condition. - New Patient This patient is new to me today: No - Critical Care Critical Care patient: Yes Total Critical Care Time (in minutes): 35 Critical Care Statement: The care of this patient involved high complexity decision making to prevent further life threatening deterioration of the patient 's condition and/or to evaluate & treat vital organ system(s) failure or risk of failure.
[2018-09-16] MEDS: KCL 10 MEQ IVPB 10 MEQ/100 ML INFUS.BAG IVPB SCH ×2 (08:17→10:06)
[2018-09-16] MEDS: DEXTROSE 5%-NORMAL SALINE 1,000 ML IV SCH ×2 (08:17→18:21)
[2018-09-16] MEDS ORDERED: POTASSIUM PHOSPHATE 30 MM in SODIUM CHLORIDE 250 ML IVPB ONE (09:00)
[2018-09-16] MEDS: PANTOPRAZOLE SODIUM 40 MG VIAL IVPB SCH (10:05)
--- NOTE | 2018-09-16 10:31 | PN ---
Teaching Attending Note Name of Resident: Sharon Burton ATTENDING PHYSICIAN STATEMENT I saw and evaluated the patient. I reviewed the resident's note and discussed the case with the resident. I agree with the resident's findings and plan as documented. SUBJECTIVE: Patient seen and examined in the ICU. Awake and alert. Did not require pressors overnight as he responded to IVF resuscitation. No CP or SOB. Some dry cough. Intake & Output 09/13/18 09/14/18 09/15/18 09/16/18 23:59 23:59 23:59 23:59 Intake Total 2200 4700 1000 Output Total 1200 Balance 2200 4700 -200 Weight 204 lb 188 lb 14.4 oz 211 lb Last Vital Signs Temp Pulse Resp BP Pulse Ox 100.2 F H 87 26 H 127/71 99 09/16/18 03:00 09/16/18 07:00 09/16/18 07:00 09/16/18 07:00 09/15/18 21:00 Active Medications Acetaminophen (Ofirmev Injection -) 1,000 mg IVPB Q6H PRN PRN Reason: FEVER Atorvastatin Calcium (Lipitor -) 40 mg PO HS [facility] Last Admin: 09/15/18 22:12 Dose: Not Given Gabapentin (Neurontin -) 400 mg PO BID JAMIE Last Admin: 09/15/18 22:13 Dose: Not Given Cefepime HCl 2 gm/ Dextrose 100 mls @ 100 mls/hr IVPB Q8H-IV JAMIE; Protocol Last Admin: 09/16/18 10:05 Dose: 100 mls/hr Dextrose/Sodium Chloride (D5-Ns -) 1,000 mls @ 125 mls/hr IV ASDIR JAMIE Last Admin: 09/16/18 08:17 Dose: 125 mls/hr Daptomycin 700 mg/ Sodium (Chloride) 50 mls @ 100 mls/hr IVPB DAILY [facility]; Protocol Last Admin: 09/15/18 19:29 Dose: 100 mls/hr Potassium Phosphate 30 mm/ (Sodium Chloride) 260 mls @ 43.33 mls/hr IVPB ONCE ONE Stop: 09/16/18 15:00 Metoprolol Succinate (Toprol Xl -) 25 mg PO BID [facility] Last Admin: 09/15/18 22:13 Dose: Not Given Pantoprazole Sodium (Protonix Iv) 40 mg IVPB DAILY [facility] Last Admin: 09/16/18 10:05 Dose: 40 mg Ranitidine HCl (Zantac -) 150 mg PO BID [facility] Last Admin: 09/15/18 22:13 Dose: Not Given Tbo-Filgrastim (Granix -) 480 mcg SQ DAILY [facility] Vancomycin HCl (Vancomycin Oral Solution) 125 mg PO Q6HPO [facility] Last Admin: 09/16/18 06:55 Dose: 125 mg Gen: Awake and alert, NAD at rest Neck: (-) JVD Heart: RRR Lung: few scattered rhonchi, decreased breath sounds at the bases Abd: soft, nontender Ext: no edema Laboratory Results - last 24 hr 09/14/18 09/15/18 09/15/18 09:50 05:30 10:45 WBC RBC Hgb Hct MCV MCH MCHC RDW Plt Count MPV Absolute Neuts (auto) Neutrophils % Neutrophils % (Manual) 70.0 Band Neutrophils % 4.0 Lymphocytes % Lymphocytes % (Manual) 17.0 D Monocytes % Monocytes % (Manual) 5 Eosinophils % Eosinophils % (Manual) 1.0 Basophils % Basophils % (Manual) 0.0 Myelocytes % (Man) 0 Promyelocytes % (Man) 0 Blast Cells % (Manual) 0 Nucleated RBC % Metamyelocytes 1 Hypochromia 0 Platelet Estimate Decreased Polychromasia 0 Poikilocytosis 2+ Anisocytosis 1+ Microcytosis 1+ Macrocytosis 1+ Tear Drop Cells 1+ Ovalocytes 1+ Schistocytes 1+ Fibrinogen Sodium 142 Potassium 3.1 L Chloride 116 H Carbon Dioxide 18 L Anion Gap 8 BUN 13 Creatinine 1.0 Est GFR (CKD-EPI)AfAm 86.76 Est GFR (CKD-EPI)NonAf 74.86 Random Glucose 97 Calcium 7.3 L Phosphorus 1.0 L* Magnesium 2.0 Total Bilirubin AST ALT Alkaline Phosphatase Total Protein Albumin Blood Type O POSITIVE Antibody Screen Negative Crossmatch See Detail 09/15/18 09/15/18 09/16/18 15:00 15:00 05:15 WBC 0.7 L* RBC 2.73 L Hgb 7.6 L Hct 23.0 L MCV 84.1 MCH 27.7 MCHC 32.9 RDW 17.4 H Plt Count 37 L D MPV 9.1 Absolute Neuts (auto) 0.4 L Neutrophils % 61.8 Neutrophils % (Manual) Band Neutrophils % Lymphocytes % 25.1 D Lymphocytes % (Manual) Monocytes % 10.1 Monocytes % (Manual) Eosinophils % 2.5 Eosinophils % (Manual) Basophils % 0.5 Basophils % (Manual) Myelocytes % (Man) Promyelocytes % (Man) Blast Cells % (Manual) Nucleated RBC % 0 Metamyelocytes Hypochromia Platelet Estimate Polychromasia Poikilocytosis Anisocytosis Microcytosis Macrocytosis Tear Drop Cells Ovalocytes Schistocytes Fibrinogen 442.0 Sodium 141 Potassium 3.0 L Chloride 115 H Carbon Dioxide 19 L Anion Gap 7 L BUN 12 Creatinine 1.0 Est GFR (CKD-EPI)AfAm 86.76 Est GFR (CKD-EPI)NonAf 74.86 Random Glucose 152 H Calcium 7.1 L Phosphorus Magnesium Total Bilirubin AST ALT Alkaline Phosphatase Total Protein Albumin Blood Type Antibody Screen Crossmatch 09/16/18 05:15 WBC RBC Hgb Hct MCV MCH MCHC RDW Plt Count MPV Absolute Neuts (auto) Neutrophils % Neutrophils % (Manual) Band Neutrophils % Lymphocytes % Lymphocytes % (Manual) Monocytes % Monocytes % (Manual) Eosinophils % Eosinophils % (Manual) Basophils % Basophils % (Manual) Myelocytes % (Man) Promyelocytes % (Man) Blast Cells % (Manual) Nucleated RBC % Metamyelocytes Hypochromia Platelet Estimate Polychromasia Poikilocytosis Anisocytosis Microcytosis Macrocytosis Tear Drop Cells Ovalocytes Schistocytes Fibrinogen Sodium 141 Potassium 2.8 L* Chloride 114 H Carbon Dioxide 18 L Anion Gap 9 BUN 9 Creatinine 1.0 Est GFR (CKD-EPI)AfAm 86.76 Est GFR (CKD-EPI)NonAf 74.86 Random Glucose 176 H Calcium 7.0 L Phosphorus 1.8 L Magnesium 2.0 Total Bilirubin 1.0 AST 62 H ALT 33 Alkaline Phosphatase 103 Total Protein 4.9 L Albumin 2.0 L Blood Type Antibody Screen Crossmatch ASSESSMENT AND PLAN: MRSA Bacteremia Suspected Port Infection +C diff Ag Neutropenic Sepsis Thrombocytopenia Anemia Metastatic Colon Ca on chemotherapy Multiple Myeloma Atrial Fibrillation HTN DM - antibiotics per ID - f/u cultures - port was already removed - monitor CBC, coags, fibrinogen level - Normal transfusion thresholds - if persistently bacteremic, may need RANDY - IVF - Floor Dr Patterson
[2018-09-16] MEDS: DAPTOMYCIN 700 MG in SODIUM CHLORIDE 50 ML IVPB SCH (10:51)
[2018-09-16] MEDS: GABAPENTIN 400 MG CAPSULE (FP) PO SCH ×3 (11:02→22:12)
[2018-09-16] MEDS: RANITIDINE HCL 150 MG TABLET (FP) PO SCH (11:04)
[2018-09-16] MEDS: metoPROLOL SUCCINATE 25 MG TAB.SR.24H (FP) PO SCH ×3 (11:04→22:14)
[2018-09-16 11:20] LABS: MACROCYTOSIS 1+; OVALOCYTE 1+; PLATELET ESTIMATE DECREASED; TEAR DROP CELLS 1+; TOXIC GRANULATION 1+
--- NOTE | 2018-09-16 11:24 | PN ---
Progress Note, Physician History of Present Illness: AWAKE, ALERT SUPINE IN BED C/O GENERALIZED WEAKNESS, LOOSE BMS REMAINS FEBRILE, NEUTROPENIC REPEAT BC PENDING - Current Medication List Current Medications: Active Medications Acetaminophen (Ofirmev Injection -) 1,000 mg IVPB Q6H PRN PRN Reason: FEVER Last Admin: 09/16/18 10:52 Dose: 1,000 mg Atorvastatin Calcium (Lipitor -) 40 mg PO HS JAMIE Last Admin: 09/15/18 22:12 Dose: Not Given Gabapentin (Neurontin -) 400 mg PO BID JAMIE Last Admin: 09/16/18 11:02 Dose: 400 mg Cefepime HCl 2 gm/ Dextrose 100 mls @ 100 mls/hr IVPB Q8H-IV JAMIE; Protocol Last Admin: 09/16/18 10:05 Dose: 100 mls/hr Dextrose/Sodium Chloride (D5-Ns -) 1,000 mls @ 125 mls/hr IV ASDIR JAMIE Last Admin: 09/16/18 08:17 Dose: 125 mls/hr Daptomycin 700 mg/ Sodium (Chloride) 50 mls @ 100 mls/hr IVPB DAILY JAMIE; Protocol Last Admin: 09/16/18 10:51 Dose: 100 mls/hr Potassium Phosphate 30 mm/ (Sodium Chloride) 260 mls @ 43.33 mls/hr IVPB ONCE ONE Stop: 09/16/18 15:00 Last Admin: 09/16/18 11:00 Dose: 43.33 mls/hr Lidocaine/Aluminum/Magnesium/Simeth (Magic Mouthwash *Sjr Formula* -) 5 ml MM Q6HPO PRN PRN Reason: ORAL PAIN/MOUTH SORES Metoprolol Succinate (Toprol Xl -) 25 mg PO BID [facility] Last Admin: 09/16/18 11:04 Dose: Not Given Pantoprazole Sodium (Protonix Iv) 40 mg IVPB DAILY [facility] Last Admin: 09/16/18 10:05 Dose: 40 mg Ranitidine HCl (Zantac -) 150 mg PO BID JAMIE Last Admin: 09/16/18 11:04 Dose: Not Given Tbo-Filgrastim (Granix -) 480 mcg SQ DAILY [facility] Vancomycin HCl (Vancomycin Oral Solution) 125 mg PO Q6HPO [facility] Last Admin: 09/16/18 06:55 Dose: 125 mg - Objective Vital Signs: Vital Signs Temperature 100.2 F H 05/31/19 03:00 Pulse Rate 87 09/16/18 07:00 Respiratory Rate 26 H 09/16/18 07:00 Blood Pressure 127/71 09/16/18 07:00 O2 Sat by Pulse Oximetry (%) 99 09/15/18 21:00 Constitutional: Yes: No Distress Cardiovascular: Yes: Regular Rate and Rhythm, S1, S2 Respiratory: Yes: CTA Bilaterally Gastrointestinal: Yes: Normal Bowel Sounds, Soft. No: Tenderness Edema: Yes Labs: CBC, BMP 09/16/18 05:15 09/16/18 05:15 INR, PTT INR 1.28 (0.83-1.09) H 09/14/18 10:55 Fibrinogen 442.0 mg/dL (238-498) 09/15/18 15:00 Assessment/Plan MRSA BACTEREMIA/ SEPSIS PROBABLE INFECTED PORT S/P REMOVAL NEUTROPENIA/PANCYTOPENIA THROMBOCYTOPENIA + C DIFF AZOTEMIA IMPROVED METASTATIC CA S/P CHEMO CHECK REPEAT BC CONTINUE DAPTOMYCIN @ 8MG/KG CONTINUE CEFEPIME PO VANCO NEUTROPENIC PRECAUTIONS PROGNOSIS GUARDED
--- NOTE | 2018-09-16 11:29 | PN ---
Progress Note, [employer] - Note Progress Note: Notes Selected Entries 09/14/18 09/14/18 09/14/18 02:00 06:00 06:15 Lunch Temperature 99.0 F 103.0 F H 102.2 F H 09/14/18 09/14/18 09/14/18 06:34 08:00 12:16 Lunch Temperature 101.2 F H 100.4 F H 100.2 F H 09/14/18 09/14/18 09/14/18 12:33 13:45 16:00 Lunch Temperature 100.2 F H 100.2 F H 100.8 F H 09/14/18 09/14/18 09/15/18 17:57 23:00 02:00 Lunch Temperature 101.7 F H 102.0 F H 98.7 F 09/15/18 09/15/18 09/15/18 04:00 06:00 10:00 Lunch Temperature 68 F L 98.7 F 98.9 F 09/15/18 09/15/18 09/15/18 14:00 18:00 23:00 Lunch Temperature 101.1 F H 98.6 F 103.1 F H 09/16/18 09/16/18 03:00 08:30 Lunch NPO Temperature 100.2 F H Laboratory Tests 09/16/18 05:15 WBC 0.7 L* Pt continues to cough/heave with PO meds but gets them down without vomiting. He hasn't tried food /liquid. He is on IV NS. Reassessed with thin liquid and thick liquid, both with responsive dry cough/ heave. I doubt he is aspirating but can not r/o at bedside. h/o MBS with normal oral/pharyngeal function a year ago with same symptoms of heaving. Seems like a hyper-sensitivity, etiology unknown at this time. No oral thrush/ odynophagia. No nutritional intake since admission. Consider- If not medically contraindicated-Trial of Magic mouthwash to see if reducing sensation reduces hypersensitivity/gagging/heaving and allows pt to eat/drink. Trial of full fluid/nectar thick/Magic cup/ensure pudding Clinimix, if not medically contraindicated.
[2018-09-16] MEDS: TBO-FILGRASTIM 480 MCG/0.8 ML DISP.SYRIN SQ SCH (11:52)
[2018-09-16] MEDS: MAG HYDROX/ALH/SMC/DPHA/LIDO 240 ML MOUTHWASH MM PRN (12:20)
--- NOTE | 2018-09-16 12:44 | PN ---
Progress Note (short form) - Note Progress Note: feels weak Vital Signs - 24 hr 09/15/18 09/15/18 09/15/18 14:00 16:00 18:00 Temperature 101.1 F H 98.6 F Pulse Rate 75 76 71 Respiratory 27 H 22 H 19 Rate Blood Pressure 117/62 107/63 110/66 O2 Sat by Pulse Oximetry (%) 09/15/18 09/15/18 09/15/18 20:00 21:00 22:00 Temperature Pulse Rate 79 82 101 H Respiratory 29 H 28 H 22 H Rate Blood Pressure 133/76 131/73 134/75 O2 Sat by Pulse 99 Oximetry (%) 09/15/18 09/16/18 09/16/18 23:00 00:00 00:23 Temperature 103.1 F H Pulse Rate 94 H 103 H 98 H Respiratory 26 H 32 H 35 H Rate Blood Pressure 147/80 130/67 130/67 O2 Sat by Pulse Oximetry (%) 09/16/18 09/16/18 09/16/18 01:00 02:00 03:00 Temperature 100.2 F H Pulse Rate 104 H 94 H 91 H Respiratory 33 H 29 H 17 Rate Blood Pressure 118/59 L 99/55 L 102/85 O2 Sat by Pulse Oximetry (%) 09/16/18 09/16/18 09/16/18 04:00 05:00 06:00 Temperature Pulse Rate 85 81 77 Respiratory 22 H 29 H 23 H Rate Blood Pressure 89/59 L 105/62 113/69 O2 Sat by Pulse Oximetry (%) 09/16/18 09/16/18 09/16/18 07:00 08:00 09:00 Temperature 102.4 F H Pulse Rate 87 86 Respiratory 26 H 25 H 24 H Rate Blood Pressure 127/71 134/71 O2 Sat by Pulse 97 Oximetry (%) 09/16/18 09/16/18 10:00 12:00 Temperature 98 F Pulse Rate 96 H 94 H Respiratory 26 H 24 H Rate Blood Pressure 122/78 106/61 O2 Sat by Pulse Oximetry (%) Current Medications Generic Name Dose Route Start Last Admin Trade Name Freq PRN Reason Stop Dose Admin Acetaminophen 1,000 mg 09/16/18 10:10 09/16/18 10:52 Ofirmev Injection - IVPB 1,000 mg Q6H PRN Administration FEVER Atorvastatin Calcium 40 mg 09/12/18 22:00 09/15/18 22:12 Lipitor - PO Not Given HS JAMIE Gabapentin 400 mg 09/12/18 22:00 09/16/18 11:02 Neurontin - PO 400 mg BID JAMIE Administration Cefepime HCl 2 gm/ Dextrose 100 mls @ 100 mls/hr 09/13/18 18:00 09/16/18 10: 05 IVPB 100 mls/hr Q8H-IV JAMIE Administration Protocol Dextrose/Sodium Chloride 1,000 mls @ 125 mls/hr 09/15/18 11:30 09/16/18 08:17 D5-Ns - IV 125 mls/hr ASDIR JAMIE Administration Daptomycin 700 mg/ Sodium 50 mls @ 100 mls/hr 09/15/18 16:30 09/16/18 10:51 Chloride IVPB 100 mls/hr DAILY JAMIE Administration Protocol Potassium Phosphate 30 mm/ 260 mls @ 43.33 mls/hr 09/16/18 09:00 09/16/18 11: 00 Sodium Chloride IVPB 09/16/18 15:00 43.33 mls/hr ONCE ONE Administration 30 MM/6 HR Lidocaine/Aluminum/Magnesium/Simeth 5 ml 09/16/18 11:07 09/16/18 12:20 Magic Mouthwash *Sjr Formula* - MM 5 ml Q6HPO PRN Administration ORAL PAIN/MOUTH SORES Metoprolol Succinate 25 mg 09/12/18 22:00 09/16/18 11:04 Toprol Xl - PO Not Given BID JAMIE Pantoprazole Sodium 40 mg 09/13/18 10:00 09/16/18 10:05 Protonix Iv IVPB 40 mg DAILY JAMIE Administration Ranitidine HCl 150 mg 09/13/18 22:00 09/16/18 11:04 Zantac - PO Not Given BID JAMIE Tbo-Filgrastim 480 mcg 09/16/18 10:00 09/16/18 11:52 Granix - SQ 480 mcg DAILY JAMIE Administration Vancomycin HCl 125 mg 09/14/18 12:00 09/16/18 11:53 Vancomycin Oral Solution PO 125 mg Q6HPO JAMIE Administration Laboratory Results - last 24 hr 09/14/18 09/15/18 09/15/18 09:50 15:00 15:00 WBC RBC Hgb Hct MCV MCH MCHC RDW Plt Count MPV Absolute Neuts (auto) Neutrophils % Neutrophils % (Manual) Band Neutrophils % Lymphocytes % Lymphocytes % (Manual) Monocytes % Monocytes % (Manual) Eosinophils % Eosinophils % (Manual) Basophils % Basophils % (Manual) Myelocytes % (Man) Promyelocytes % (Man) Blast Cells % (Manual) Nucleated RBC % Metamyelocytes Hypochromia Toxic Granulation Platelet Estimate Polychromasia Poikilocytosis Microcytosis Macrocytosis Tear Drop Cells Ovalocytes Fibrinogen 442.0 Sodium 141 Potassium 3.0 L Chloride 115 H Carbon Dioxide 19 L Anion Gap 7 L BUN 12 Creatinine 1.0 Est GFR (CKD-EPI)AfAm 86.76 Est GFR (CKD-EPI)NonAf 74.86 Random Glucose 152 H Calcium 7.1 L Phosphorus Magnesium Total Bilirubin AST ALT Alkaline Phosphatase Total Protein Albumin Blood Type O POSITIVE Antibody Screen Negative Crossmatch See Detail 09/16/18 09/16/18 05:15 05:15 WBC 0.7 L* RBC 2.73 L Hgb 7.6 L Hct 23.0 L MCV 84.1 MCH 27.7 MCHC 32.9 RDW 17.4 H Plt Count 37 L D MPV 9.1 Absolute Neuts (auto) 0.4 L Neutrophils % 61.8 Neutrophils % (Manual) 71.1 Band Neutrophils % 1.0 Lymphocytes % 25.1 D Lymphocytes % (Manual) 15.5 Monocytes % 10.1 Monocytes % (Manual) 6 Eosinophils % 2.5 Eosinophils % (Manual) 3.1 D Basophils % 0.5 Basophils % (Manual) 1.0 D Myelocytes % (Man) 0 Promyelocytes % (Man) 0 Blast Cells % (Manual) 0 Nucleated RBC % 0 Metamyelocytes 0 D Hypochromia 0 Toxic Granulation 1+ Platelet Estimate Decreased Polychromasia 0 Poikilocytosis 2+ Microcytosis 1+ Macrocytosis 1+ Tear Drop Cells 1+ Ovalocytes 1+ Fibrinogen Sodium 141 Potassium 2.8 L* Chloride 114 H Carbon Dioxide 18 L Anion Gap 9 BUN 9 Creatinine 1.0 Est GFR (CKD-EPI)AfAm 86.76 Est GFR (CKD-EPI)NonAf 74.86 Random Glucose 176 H Calcium 7.0 L Phosphorus 1.8 L Magnesium 2.0 Total Bilirubin 1.0 AST 62 H ALT 33 Alkaline Phosphatase 103 Total Protein 4.9 L Albumin 2.0 L Blood Type Antibody Screen Crossmatch S1 S2 RRR Pale Lungs decreased breath sounds Abd- soft,NT no edema ICU monitoring IV antibiotics -- cultures all positive for MRSA portacath removed repeat cultures pending Echo noted ?RANDY continue with meds IV fluids eliquis on hold prognosis guarded replace lytes cdiff positive Problem List - Problems (1) Neutropenic sepsis Code(s): A41.9 - SEPSIS, UNSPECIFIED ORGANISM; D70.9 - NEUTROPENIA, UNSPECIFIED (2) Atrial fibrillation Code(s): I48.91 - UNSPECIFIED ATRIAL FIBRILLATION Qualifiers: Atrial fibrillation type: chronic Qualified Code(s): I48.2 - Chronic atrial fibrillation (3) History of colon cancer Code(s): Z85.038 - PERSONAL HISTORY OF MALIGNANT NEOPLASM OF LARGE INTESTINE (4) Multiple myeloma Code(s): C90.00 - MULTIPLE MYELOMA NOT HAVING ACHIEVED REMISSION Qualifiers: Multiple myeloma remission status: unspecified Qualified Code(s): C90.00 - Multiple myeloma not having achieved remission (5) Sepsis Code(s): A41.9 - SEPSIS, UNSPECIFIED ORGANISM Qualifiers: Sepsis type: sepsis due to unspecified organism Qualified Code(s): A41.9 - Sepsis, unspecified organism (6) Anemia Code(s): D64.9 - ANEMIA, UNSPECIFIED Qualifiers: Anemia type: unspecified type Qualified Code(s): D64.9 - Anemia, unspecified
--- NOTE | 2018-09-16 15:49 | CON.GI ---
Consult Consult Specialty:: Gastroenterology Referred by:: Dr Sharon Burton Reason for Consultation:: Dysphagia - History of Present Illness Chief Complaint: "I cough and choke when I swallow" History of Present Illness: 72M is admitted with MRSA CVP port sepsis and postchemotherapy neutropenia. He is also found to have diarrhea and C diff antigen but no toxin which is a chronic pattern. He is receiving Vancomycin for this. He reports that he has trouble swallowing liquids and solids equally with both resulting in choking and cough. Once these get past his throat he denies having lower esophageal dysphagia. He denies early satiety or vomiting of successfully swallowed items. He is not nauseated. As he has on many previous occasions He reports that his swallowing problems is remedied by IVIG infusions given by Dr. Monaco for his inflammatory neuropathy with bulbar palsy. He had been taking Velcade for his multiple myeloma. 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 He did have such significant postprandial retching and swallowing difficulties that he required insertion of a PEG tube on 05/03/17 following dilation of a distal Schatzki ring on 04/30/17 which had precluded PEG insertion. he has never been found to have gastric outlet obstruction. His swallowing difficulties improved so much with institution of q2 weekly IVIG infusions that he regained 30 lbs and was able to have his PEG removed. This was done during a colonoscopy on 10/22/17 when I discovered a mid-transverse colon cancer. He has been receiving IVIG q 2 months and last got a dose on 08/29/18. He had a laparoscopic extended right hemicolectomy and incarcerated umbilical hernia repair with Dr. Ribeiro and Dr. Alicia on 12/06/17 and has been undergoing chemotherapy with Dr Gomez since then. 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: Peripheral Neuropathy (inflammatory neuropathy and bulbar palsy - Dr Moanco treats with IVIG) Cardio/Vascular: Yes: AFIB (paroxysmal), HTN, Hyperlipdemia Gastrointestinal: Yes: Diverticulosis, GERD (with HH and Schatzki ring dilated ), Hiatal Hernia, Other (transverse colon cancer resected 12/06/17) Hepatobiliary: Yes: Other (fatty liver) Heme/Onc: Yes: Cancer (Multiple myeloma and colon cancer), Current Chemotherapy , Thrombocytopenia Psych: Yes: Depression Musculoskeletal: Yes: Chronic low back pain, Osteoarthritis Rheumatology: Yes: Gout Endocrine: Yes: Diabetes Mellitus Additional Medical History: glaucoma with decreased vision and need for surgery left eye. recovering alcoholic since 1982 - Past Surgical History Past Surgical History: Yes: Arthrosocopy (left knee), Cataract Removal ( bilateral ), Colonoscopy, Hernia Repair (umbilical hernia repair 12/06/17 with colon resection), Tonsillectomy, Upper Endoscopy Additional Surgical History: laparoscopic extended right hemicolectomy for colon cancer, MARY ANNE and umbilical hernia repair Dr Ribeiro. 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 Place of : [facility] History of Recent Travel: No Home Medications - Allergies Allergies/Adverse Reactions: Allergies Allergy/AdvReac Type Severity Reaction Status Date / Time No Known Allergies Allergy Verified 09/12/18 08:59 - Home Medications Home Medications: Ambulatory Orders Gabapentin 400 mg PO BID 10/04/16 Allopurinol 300 mg PO DAILY 10/21/17 Atorvastatin Ca [Lipitor] 40 mg PO HS 10/21/17 Cyanocobalamin (Vitamin B-12) [Vitamin B12] 2,500 mcg PO DAILY 10/21/17 Oxycodone HCl [Oxycontin] 10 mg PO PRN PRN 10/21/17 Pantoprazole Sodium [Protonix] 40 mg PO DAILY 10/21/17 Apixaban [Eliquis -] 5 mg PO BID #0 tablet 06/22/18 Furosemide 40 mg PO DAILY 06/22/18 Metoprolol Succinate 25 mg PO BID 06/22/18 Family Disease History - Family Disease History Family Disease History: Other: Father (: 68: lung Ca), Mother (: 60's: myeloid leukemia ), Brother (1, : 65: colon cancer), Son (1, healthy), Daughter (1 with SLE) Review of Systems - Review of Systems Constitutional: reports: Lethargy, Unintentional Wgt. Loss, Weakness Eyes: reports: Blurred Vision HENT: reports: Difficult Swallowing (with cough and choking) Neck: reports: No Symptoms Cardiovascular: reports: Palpitations Respiratory: reports: SOB on Exertion Gastrointestinal: reports: Diarrhea Physical Exam-GI Vital Signs: Vital Signs Temperature 98.2 F 09/16/18 14:00 Pulse Rate 85 09/16/18 14:00 Respiratory Rate 22 H 09/16/18 14:00 Blood Pressure 107/60 09/16/18 14:00 O2 Sat by Pulse Oximetry (%) 97 09/16/18 09:00 CBC,CMP WBC 0.7 K/mm3 (4.0-10.0) L* 09/16/18 05:15 RBC 2.73 M/mm3 (4.00-5.60) L 09/16/18 05:15 Hgb 7.6 GM/dL (11.7-16.9) L 09/16/18 05:15 Hct 23.0 % (35.4-49) L 09/16/18 05:15 MCV 84.1 fl (80-96) 09/16/18 05:15 MCH 27.7 pg (25.7-33.7) 09/16/18 05:15 MCHC 32.9 g/dl (32.0-35.9) 09/16/18 05:15 RDW 17.4 % (11.9-15.9) H 09/16/18 05:15 Plt Count 37 K/MM3 (134-434) L D 09/16/18 05:15 MPV 9.1 fl (7.5-11.1) 09/16/18 05:15 Absolute Neuts (auto) 0.4 K/mm3 (1.5-8.0) L 09/16/18 05:15 Neutrophils % 61.8 % (42.8-82.8) 09/16/18 05:15 Neutrophils % (Manual) 71.1 % (42.8-82.8) 09/16/18 05:15 Band Neutrophils % 1.0 % 09/16/18 05:15 Lymphocytes % 25.1 % (8-40) D 09/16/18 05:15 Lymphocytes % (Manual) 15.5 % (8-40) 09/16/18 05:15 Monocytes % 10.1 % (3.8-10.2) 09/16/18 05:15 Monocytes % (Manual) 6 % (3.8-10.2) 09/16/18 05:15 Eosinophils % 2.5 % (0-4.5) 09/16/18 05:15 Eosinophils % (Manual) 3.1 % (0-4.5) D 09/16/18 05:15 Basophils % 0.5 % (0-2.0) 09/16/18 05:15 Basophils % (Manual) 1.0 % (0-2.0) D 09/16/18 05:15 Myelocytes % (Man) 0 % (0-2) 09/16/18 05:15 Promyelocytes % (Man) 0 % (0-2) 09/16/18 05:15 Blast Cells % (Manual) 0 % (0-0) 09/16/18 05:15 Nucleated RBC % 0 % (0-0) 09/16/18 05:15 Metamyelocytes 0 % (0-2) D 09/16/18 05:15 Hypochromia 0 09/16/18 05:15 Toxic Granulation 1+ 09/16/18 05:15 Platelet Estimate Decreased 09/16/18 05:15 Polychromasia 0 09/16/18 05:15 Poikilocytosis 2+ 09/16/18 05:15 Anisocytosis 1+ 09/15/18 05:30 Microcytosis 1+ 09/16/18 05:15 Macrocytosis 1+ 09/16/18 05:15 Tear Drop Cells 1+ 09/16/18 05:15 Ovalocytes 1+ 09/16/18 05:15 Schistocytes 1+ 09/15/18 05:30 Sodium 141 mmol/L (136-145) 09/16/18 05:15 Potassium 2.8 mmol/L (3.5-5.1) L* 09/16/18 05:15 Chloride 114 mmol/L (98-107) H 09/16/18 05:15 Carbon Dioxide 18 mmol/L (21-32) L 09/16/18 05:15 Anion Gap 9 MMOL/L (8-16) 09/16/18 05:15 BUN 9 mg/dL (7-18) 09/16/18 05:15 Creatinine 1.0 mg/dL (0.55-1.3) 09/16/18 05:15 Est GFR (CKD-EPI)AfAm 86.76 09/16/18 05:15 Est GFR (CKD-EPI)NonAf 74.86 09/16/18 05:15 Random Glucose 176 mg/dL (74-106) H 09/16/18 05:15 Lactic Acid 1.0 mmol/L (0.4-2.0) 09/13/18 00:40 Calcium 7.0 mg/dL (8.5-10.1) L 09/16/18 05:15 Phosphorus 1.8 mg/dL (2.5-4.9) L 09/16/18 05:15 Magnesium 2.0 mg/dL (1.8-2.4) 09/16/18 05:15 Total Bilirubin 1.0 mg/dL (0.2-1) 09/16/18 05:15 AST 62 U/L (15-37) H 09/16/18 05:15 ALT 33 U/L (13-61) 09/16/18 05:15 Alkaline Phosphatase 103 U/L (45-117) 09/16/18 05:15 Troponin I 0.02 ng/ml (0.00-0.05) 09/12/18 08:15 Total Protein 4.9 g/dl (6.4-8.2) L 09/16/18 05:15 Albumin 2.0 g/dl (3.4-5.0) L 09/16/18 05:15 Vitamin B12 1533 pg/ml (193-986) H 09/14/18 06:30 TSH 0.82 uIU/ml (0.358-3.74) D 09/14/18 06:30 Current Medications Generic Name Dose Route Start Last Admin Trade Name Freq PRN Reason Stop Dose Admin Acetaminophen 1,000 mg 09/16/18 10:10 09/16/18 10:52 Ofirmev Injection - IVPB 1,000 mg Q6H PRN Administration FEVER Gabapentin 400 mg 09/16/18 22:00 Neurontin - PO BID JAMIE Daptomycin 700 mg/ Sodium 50 mls @ 100 mls/hr 09/15/18 16:30 09/16/18 10:51 Chloride IVPB 100 mls/hr DAILY JAMIE Administration Protocol Amino Acids 1,000 mls @ 84 mls/hr 09/16/18 14:45 Clinimix - IV 09/17/18 14:40 Q12H JAMIE Cefepime HCl 2 gm/ Dextrose 100 mls @ 100 mls/hr 09/16/18 18:00 IVPB Q8H-IV JAMIE Protocol Lidocaine/Aluminum/Magnesium/Simeth 5 ml 09/16/18 11:07 09/16/18 12:20 Magic Mouthwash *Sjr Formula* - MM 5 ml Q6HPO PRN Administration ORAL PAIN/MOUTH SORES Metoprolol Succinate 25 mg 09/16/18 22:00 Toprol Xl - PO BID JAMIE Multivitamins/Minerals 10 ml 09/16/18 15:00 Infuvite Adult - IV DAILY JAMIE Pantoprazole Sodium 40 mg 09/17/18 10:00 Protonix Iv IVPB DAILY JAMIE Tbo-Filgrastim 480 mcg 09/16/18 10:00 09/16/18 11:52 Granix - SQ 480 mcg DAILY JAMIE Administration Vancomycin HCl 125 mg 09/16/18 18:00 Vancomycin Oral Solution PO Q6HPO JAMIE Constitutional: Yes: Calm Eyes: Yes: Conjunctiva Clear HENT: Yes: Atraumatic Neck: Yes: Supple Cardiovascular: Yes: Regular Rate and Rhythm Respiratory: Yes: CTA Bilaterally Gastrointestinal Inspection: Yes: Scars (healed laparoscopic incisions and previous PEG fistula is closed) ...Auscultate: Yes: Normoactive Bowel Sounds ...Palpate: Yes: Soft, Other (nontender) ...Rectal Exam: Yes: Deferred (for neutropenia) Edema: Yes Edema: LLE: 1+, RLE: 1+ Neurological: Yes: Alert, Oriented Labs: CBC, BMP 09/16/18 05:15 09/16/18 05:15 INR, PTT INR 1.28 (0.83-1.09) H 09/14/18 10:55 Fibrinogen 442.0 mg/dL (238-498) 09/15/18 15:00 Problem List - Problems (1) Dysphagia, oropharyngeal phase Assessment/Plan: Michael describes his dysphagia as being at the oropharyngeal level. He intimates that it only responds to IVIG. Would consider giving another dosage if it is not contraindicated. Does not need an endoscopy at this time. Code(s): R13.12 - DYSPHAGIA, OROPHARYNGEAL PHASE (2) MRSA (methicillin resistant staph aureus) culture positive Code(s): Z22.322 - CARRIER OR SUSPECTED CARRIER OF METHICILLIN RESIS STAPH (3) Atrial fibrillation Code(s): I48.91 - UNSPECIFIED ATRIAL FIBRILLATION Qualifiers: Atrial fibrillation type: chronic Qualified Code(s): I48.2 - Chronic atrial fibrillation (4) Multiple myeloma Code(s): C90.00 - MULTIPLE MYELOMA NOT HAVING ACHIEVED REMISSION Qualifiers: Multiple myeloma remission status: unspecified Qualified Code(s): C90.00 - Multiple myeloma not having achieved remission (5) Neutropenic sepsis Code(s): A41.9 - SEPSIS, UNSPECIFIED ORGANISM; D70.9 - NEUTROPENIA, UNSPECIFIED (6) Sepsis Code(s): A41.9 - SEPSIS, UNSPECIFIED ORGANISM Qualifiers: Sepsis type: sepsis due to unspecified organism Qualified Code(s): A41.9 - Sepsis, unspecified organism (7) Anemia Code(s): D64.9 - ANEMIA, UNSPECIFIED Qualifiers: Anemia type: unspecified type Qualified Code(s): D64.9 - Anemia, unspecified (8) C. difficile diarrhea Code(s): A04.72 - ENTEROCOLITIS D/T CLOSTRIDIUM DIFFICILE, NOT SPCF RECUR (9) Diabetes mellitus Code(s): E11.9 - TYPE 2 DIABETES MELLITUS WITHOUT COMPLICATIONS Qualifiers: Diabetes mellitus type: type 2 Diabetes mellitus fci insulin use: without middle or intermediate school principal use Diabetes mellitus complication status: without complication Qualified Code(s): E11.9 - Type 2 diabetes mellitus without complications (10) Diarrhea Code(s): R19.7 - DIARRHEA, UNSPECIFIED (11) Family history of colon cancer Code(s): Z80.0 - FAMILY HISTORY OF MALIGNANT NEOPLASM OF DIGESTIVE ORGANS (12) HTN (hypertension) Code(s): I10 - ESSENTIAL (PRIMARY) HYPERTENSION Qualifiers: Hypertension type: essential hypertension Qualified Code(s): I10 - Essential (primary) hypertension (13) Hypercholesterolemia Code(s): E78.00 - PURE HYPERCHOLESTEROLEMIA, UNSPECIFIED (14) Schatzki's ring of distal esophagus Code(s): K22.2 - ESOPHAGEAL OBSTRUCTION (15) Status post insertion of percutaneous endoscopic gastrostomy (PEG) tube Code(s): Z93.1 - GASTROSTOMY STATUS (16) Colon cancer Code(s): C18.9 - MALIGNANT NEOPLASM OF COLON, UNSPECIFIED (17) CIDP (chronic inflammatory demyelinating polyneuropathy) Code(s): G61.81 - CHRONIC INFLAMMATORY DEMYELINATING POLYNEURITIS Assessment/Plan Impression: - Michael describes his dysphagia as being at the oropharyngeal level. He intimates that it only responds to IVIG. - Colon cancer metastatic to the liver on chemotherapy , s/p extended right hemicolectomy - HH, GERD and dilated Schatzki ring. Denies distal esophageal dysphagia - Has chronic D diff antigen but no toxin but already being empirically treated - Recovering alcoholic since 1982 with fatty liver - Diverticulosis - previous PEG Plan: Would consider giving another dosage if it is not contraindicated. Does not need an endoscopy at this time Continue PPI
[2018-09-16] MEDS: VANCOMYCIN 1 GRAM (PRE-DOCKED) 1,000 MG/250 ML BAG IVPB SCH (17:20)
[2018-09-16] MEDS: ALLOPURINOL 300 MG TABLET (FP) PO SCH (17:20)
--- NOTE | 2018-09-16 19:04 | PN ---
Progress Note (short form) - Note Progress Note: Patient seen and examined Seen by GI Dysphagia Continues with pancytopenia Continues with diarrhea Last Vital Signs Temp Pulse Resp BP Pulse Ox 100.4 F H 95 H 20 141/74 97 09/16/18 17:05 09/16/18 17:05 09/16/18 17:05 09/16/18 17:05 09/16/18 09:00 HEENT: SAY, EOM Intact Oropharynx: No thrush, No mucositis Cor: RSR, No murmurs, No gallops Lungs: Clear to P&A Abd: Soft, Normal bowel sounds, No organomegaly Ext:No significant edema Skin: No rashes, Integument intact CBC, BMP 09/16/18 05:15 09/16/18 05:15 Current Medications Generic Name Dose Route Start Last Admin Trade Name Freq PRN Reason Stop Dose Admin Acetaminophen 1,000 mg 09/16/18 10:10 09/16/18 18:37 Ofirmev Injection - IVPB 1,000 mg Q6H PRN Administration FEVER Gabapentin 400 mg 09/16/18 22:00 Neurontin - PO BID JAMIE Daptomycin 700 mg/ Sodium 50 mls @ 100 mls/hr 09/15/18 16:30 09/16/18 10:51 Chloride IVPB 100 mls/hr DAILY JAMIE Administration Protocol Amino Acids 1,000 mls @ 84 mls/hr 09/16/18 14:45 Clinimix - IV 09/17/18 14:40 Q12H JAMIE Cefepime HCl 2 gm/ Dextrose 100 mls @ 100 mls/hr 09/16/18 18:00 09/16/18 17: 50 IVPB 100 mls/hr Q8H-IV JAMIE Administration Protocol Lidocaine/Aluminum/Magnesium/Simeth 5 ml 09/16/18 11:07 09/16/18 12:20 Magic Mouthwash *Sjr Formula* - MM 5 ml Q6HPO PRN Administration ORAL PAIN/MOUTH SORES Metoprolol Succinate 25 mg 09/16/18 22:00 Toprol Xl - PO BID JAMIE Multivitamins/Minerals 10 ml 09/16/18 15:00 Infuvite Adult - IV DAILY JAMIE Pantoprazole Sodium 40 mg 09/17/18 10:00 Protonix Iv IVPB DAILY [facility] Tbo-Filgrastim 480 mcg 09/16/18 10:00 09/16/18 11:52 Granix - SQ 480 mcg DAILY JAMIE Administration Vancomycin HCl 125 mg 09/16/18 18:00 09/16/18 17:50 Vancomycin Oral Solution PO 125 mg Q6HPO JAMIE Administration Impression MRSA bacteremia Port source- removal C.diff Ag+ PANCYTOPENIA DYSPHAGIA POOR RESPONSE TO NEUPOGEN AND BLOOD TRANSFUSION cONTINUE WITH NEUPOGEN AND BLOOD PRN iF ok WITH ALL CONCERNED - CONSIDER GAMMA GLOBULIN INFUSION.
[2018-09-16] MEDS ORDERED: ATORVASTATIN CA 40 MG TABLET (FP) PO SCH (22:00)
[2018-09-17] MEDS: VANCOMYCIN 250 MG/5 ML ORAL SOLUTION PO SCH ×5 (00:24→23:52)
[2018-09-17] MEDS ORDERED: PT OWN MED DRAWER 7, Y5N ONE ×10 (01:53→23:47)
[2018-09-17] MEDS: AMINO ACIDS 4.25%/D5W 1,000 ML IV SCH ×2 (02:27→02:28)
[2018-09-17] MEDS: CEFEPIME 2 GM in DEXTROSE 5%-WATER 100 ML IVPB SCH ×2 (02:29→10:03)
[2018-09-17 07:24] LABS: BASO % 2.3 % (0-2.0); HEMATOCRIT 28.3 % (35.4-49); HEMOGLOBIN 9.5 GM/dL (11.7-16.9); LYMPH % 44.4 % (8-40); MCHC 33.4 g/dl (32.0-35.9); MEAN CELL VOLUME 83.7 fl (80-96); MONO % 15.6 % (3.8-10.2); NEUT % 32.7 % (42.8-82.8); RBC 3.38 M/mm3 (4.00-5.60); RDW 17.4 % (11.9-15.9)
[2018-09-17 08:14] LABS: PLATELET COUNT 28 K/MM3 (134-434)
[2018-09-17 09:11] LABS: CALCIUM 7.7 mg/dL (8.5-10.1); CREATININE 0.9 mg/dL (0.55-1.3)
[2018-09-17 09:22] LABS: POTASSIUM 2.9 mmol/L (3.5-5.1)
[2018-09-17] MEDS: metoPROLOL SUCCINATE 25 MG TAB.SR.24H (FP) PO SCH ×3 (10:03→22:14)
[2018-09-17] MEDS: GABAPENTIN 400 MG CAPSULE (FP) PO SCH ×3 (10:03→22:14)
[2018-09-17] MEDS: PANTOPRAZOLE SODIUM 40 MG VIAL IVPB SCH (10:04)
--- NOTE | 2018-09-17 10:42 | PN ---
Progress Note (short form) - Note Progress Note: feels weak at bedside abd pain /soreness decreased appetite nausea+ diarrhea + Vital Signs - 24 hr Vital Signs - 24 hr 09/16/18 09/16/18 09/16/18 12:00 14:00 17:05 Temperature 98 F 98.2 F 100.4 F H Pulse Rate 94 H 85 95 H Respiratory 24 H 22 H 20 Rate Blood Pressure 106/61 107/60 141/74 09/17/18 09/17/18 09/17/18 01:00 06:00 08:55 Temperature 99.8 F H 99.8 F H 100.4 F H Pulse Rate 80 84 82 Respiratory 20 20 20 Rate Blood Pressure 138/82 158/80 130/80 Current Medications Generic Name Dose Route Start Last Admin Trade Name Freq PRN Reason Stop Dose Admin Acetaminophen 1,000 mg 09/16/18 10:10 09/16/18 18:37 Ofirmev Injection - IVPB 1,000 mg Q6H PRN Administration FEVER Gabapentin 400 mg 09/16/18 22:00 09/17/18 10:03 Neurontin - PO 400 mg BID JAMIE Administration Daptomycin 700 mg/ Sodium 50 mls @ 100 mls/hr 09/15/18 16:30 09/17/18 10:49 Chloride IVPB 100 mls/hr DAILY JAMIE Administration Protocol Amino Acids 1,000 mls @ 84 mls/hr 09/16/18 14:45 09/17/18 02:28 Clinimix - IV 09/17/18 14:40 84 mls/hr Q12H JAMIE Administration Cefepime HCl 2 gm/ Dextrose 100 mls @ 100 mls/hr 09/16/18 18:00 09/17/18 10: 03 IVPB 100 mls/hr Q8H-IV JAMIE Administration Protocol Potassium Chloride 10 meq in 100 mls @ 100 mls/hr 09/17/18 10:45 Potassium Chloride 10 Meq Premix Ivpb - IVPB 09/17/18 13:44 Q60M JAMIE Potassium Phosphate 30 mm/ 510 mls @ 62.5 mls/hr 09/17/18 10:41 Sodium Chloride IVPB 09/17/18 18:50 ONCE ONE Lidocaine/Aluminum/Magnesium/Simeth 5 ml 09/16/18 11:07 09/16/18 12:20 Magic Mouthwash *Sjr Formula* - MM 5 ml Q6HPO PRN Administration ORAL PAIN/MOUTH SORES Metoprolol Succinate 25 mg 09/16/18 22:00 09/17/18 10:03 Toprol Xl - PO 25 mg BID JAMIE Administration Multivitamins/Minerals 10 ml 09/16/18 15:00 Infuvite Adult - IV DAILY JAMIE Pantoprazole Sodium 40 mg 09/17/18 10:00 09/17/18 10:04 Protonix Iv IVPB 40 mg DAILY JAMIE Administration Tbo-Filgrastim 480 mcg 09/16/18 10:00 09/16/18 11:52 Granix - SQ 480 mcg DAILY JAMIE Administration Vancomycin HCl 125 mg 09/16/18 18:00 09/17/18 05:51 Vancomycin Oral Solution PO 125 mg Q6HPO JMAIE Administration Laboratory Results - last 24 hr 09/14/18 09/16/18 09/17/18 09:50 05:15 06:50 WBC 1.0 L* RBC 3.38 L Hgb 9.5 L Hct 28.3 L D MCV 83.7 MCH 28.0 MCHC 33.4 RDW 17.4 H Plt Count 28 L* D MPV 9.0 Absolute Neuts (auto) 0.3 L Neutrophils % 32.7 L D Neutrophils % (Manual) 71.1 Band Neutrophils % 1.0 Lymphocytes % 44.4 H D Lymphocytes % (Manual) 15.5 Monocytes % 15.6 H Monocytes % (Manual) 6 Eosinophils % 5.0 H D Eosinophils % (Manual) 3.1 D Basophils % 2.3 H D Basophils % (Manual) 1.0 D Myelocytes % (Man) 0 Promyelocytes % (Man) 0 Blast Cells % (Manual) 0 Nucleated RBC % 0 Metamyelocytes 0 D Hypochromia 0 Toxic Granulation 1+ Platelet Estimate Decreased Polychromasia 0 Poikilocytosis 2+ Microcytosis 1+ Macrocytosis 1+ Tear Drop Cells 1+ Ovalocytes 1+ Sodium Potassium Chloride Carbon Dioxide Anion Gap BUN Creatinine Est GFR (CKD-EPI)AfAm Est GFR (CKD-EPI)NonAf Random Glucose Calcium Phosphorus Magnesium Blood Type O POSITIVE Antibody Screen Negative Crossmatch See Detail 09/17/18 06:50 WBC RBC Hgb Hct MCV MCH MCHC RDW Plt Count MPV Absolute Neuts (auto) Neutrophils % Neutrophils % (Manual) Band Neutrophils % Lymphocytes % Lymphocytes % (Manual) Monocytes % Monocytes % (Manual) Eosinophils % Eosinophils % (Manual) Basophils % Basophils % (Manual) Myelocytes % (Man) Promyelocytes % (Man) Blast Cells % (Manual) Nucleated RBC % Metamyelocytes Hypochromia Toxic Granulation Platelet Estimate Polychromasia Poikilocytosis Microcytosis Macrocytosis Tear Drop Cells Ovalocytes Sodium 141 Potassium 2.9 L* Chloride 111 H Carbon Dioxide 17 L Anion Gap 13 BUN 10 Creatinine 0.9 Est GFR (CKD-EPI)AfAm 98.55 Est GFR (CKD-EPI)NonAf 85.03 Random Glucose 148 H Calcium 7.7 L Phosphorus 1.0 L* Magnesium 2.0 Blood Type Antibody Screen Crossmatch S1 S2 RRR Pale Lungs decreased breath sounds Abd- soft,tender all areas trace edema IV antibiotics -- cultures all positive for MRSA repeat cultures positive-- Cardiology evaluation for RANDY called portacath removed continue with meds IV fluids-->clinimix -- replace lytes eliquis on hold prognosis guarded Problem List - Problems (1) Neutropenic sepsis Code(s): A41.9 - SEPSIS, UNSPECIFIED ORGANISM; D70.9 - NEUTROPENIA, UNSPECIFIED (2) Atrial fibrillation Code(s): I48.91 - UNSPECIFIED ATRIAL FIBRILLATION Qualifiers: Atrial fibrillation type: chronic Qualified Code(s): I48.2 - Chronic atrial fibrillation (3) History of colon cancer Code(s): Z85.038 - PERSONAL HISTORY OF MALIGNANT NEOPLASM OF LARGE INTESTINE (4) Multiple myeloma Code(s): C90.00 - MULTIPLE MYELOMA NOT HAVING ACHIEVED REMISSION Qualifiers: Multiple myeloma remission status: unspecified Qualified Code(s): C90.00 - Multiple myeloma not having achieved remission (5) Sepsis Code(s): A41.9 - SEPSIS, UNSPECIFIED ORGANISM Qualifiers: Sepsis type: sepsis due to unspecified organism Qualified Code(s): A41.9 - Sepsis, unspecified organism (6) Anemia Code(s): D64.9 - ANEMIA, UNSPECIFIED Qualifiers: Anemia type: unspecified type Qualified Code(s): D64.9 - Anemia, unspecified
[2018-09-17] MEDS: DAPTOMYCIN 700 MG in SODIUM CHLORIDE 50 ML IVPB SCH (10:49)
[2018-09-17] MEDS: KCL 10 MEQ IVPB 10 MEQ/100 ML INFUS.BAG IVPB SCH ×3 (11:29→14:05)
[2018-09-17 12:51] LABS: ANISOCYTOSIS 1+; MACROCYTOSIS 1+; OVALOCYTE 1+; PLATELET ESTIMATE DECREASED; TEAR DROP CELLS 1+
--- NOTE | 2018-09-17 12:51 | PN.GI ---
GI Progress Note Subjective: GI NOte: Swallowing a bit better but tells me that oncology has agreed to give him another dose of IVIG. KCL already ordered by Dr Brand. - Objective Vital Signs: Vital Signs Temperature 100.4 F H 09/17/18 08:55 Pulse Rate 82 09/17/18 08:55 Respiratory Rate 20 09/17/18 08:55 Blood Pressure 130/80 09/17/18 08:55 O2 Sat by Pulse Oximetry (%) 97 09/16/18 09:00 Laboratory Tests 09/17/18 09/17/18 06:50 06:50 WBC 1.0 L* Hgb 9.5 L Plt Count 28 L* D Potassium 2.9 L* BUN 10 Creatinine 0.9 Constitutional: Calm ...Auscultate: Yes: Normoactive Bowel Sounds ...Palpate: Yes: Soft, Other (nontender) Labs: CBC, BMP 09/17/18 06:50 09/17/18 06:50 INR, PTT INR 1.28 (0.83-1.09) H 09/14/18 10:55 Fibrinogen 442.0 mg/dL (238-498) 09/15/18 15:00 Assessment/Plan Impression: - Dysphagia as being at the oropharyngeal level. - Colon cancer metastatic to the liver on chemotherapy , s/p extended right hemicolectomy - HH, GERD and dilated Schatzki ring. Denies distal esophageal dysphagia - Has chronic D diff antigen but no toxin but already being empirically treated - Recovering alcoholic since 1982 with fatty liver - Diverticulosis - previous PEG Plan: Anticipate another dosing of IVIG. Does not want diet advanced as yet Continue PPI Problem List - Problems (1) Dysphagia, oropharyngeal phase Code(s): R13.12 - DYSPHAGIA, OROPHARYNGEAL PHASE (2) MRSA (methicillin resistant staph aureus) culture positive Code(s): Z22.322 - CARRIER OR SUSPECTED CARRIER OF METHICILLIN RESIS STAPH (3) Atrial fibrillation Code(s): I48.91 - UNSPECIFIED ATRIAL FIBRILLATION Qualifiers: Qualified Code(s): I48.2 - Chronic atrial fibrillation (4) Multiple myeloma Code(s): C90.00 - MULTIPLE MYELOMA NOT HAVING ACHIEVED REMISSION Qualifiers: Qualified Code(s): C90.00 - Multiple myeloma not having achieved remission (5) Neutropenic sepsis Code(s): A41.9 - SEPSIS, UNSPECIFIED ORGANISM; D70.9 - NEUTROPENIA, UNSPECIFIED (6) Sepsis Code(s): A41.9 - SEPSIS, UNSPECIFIED ORGANISM Qualifiers: Qualified Code(s): A41.9 - Sepsis, unspecified organism (7) Anemia Code(s): D64.9 - ANEMIA, UNSPECIFIED Qualifiers: Qualified Code(s): D64.9 - Anemia, unspecified (8) C. difficile diarrhea Code(s): A04.72 - ENTEROCOLITIS D/T CLOSTRIDIUM DIFFICILE, NOT SPCF RECUR (9) Diabetes mellitus Code(s): E11.9 - TYPE 2 DIABETES MELLITUS WITHOUT COMPLICATIONS Qualifiers: Qualified Code(s): E11.9 - Type 2 diabetes mellitus without complications (10) Diarrhea Code(s): R19.7 - DIARRHEA, UNSPECIFIED (11) Family history of colon cancer Code(s): Z80.0 - FAMILY HISTORY OF MALIGNANT NEOPLASM OF DIGESTIVE ORGANS (12) HTN (hypertension) Code(s): I10 - ESSENTIAL (PRIMARY) HYPERTENSION Qualifiers: Qualified Code(s): I10 - Essential (primary) hypertension (13) Hypercholesterolemia Code(s): E78.00 - PURE HYPERCHOLESTEROLEMIA, UNSPECIFIED (14) Schatzki's ring of distal esophagus Code(s): K22.2 - ESOPHAGEAL OBSTRUCTION (15) Status post insertion of percutaneous endoscopic gastrostomy (PEG) tube Code(s): Z93.1 - GASTROSTOMY STATUS (16) Colon cancer Code(s): C18.9 - MALIGNANT NEOPLASM OF COLON, UNSPECIFIED (17) CIDP (chronic inflammatory demyelinating polyneuropathy) Code(s): G61.81 - CHRONIC INFLAMMATORY DEMYELINATING POLYNEURITIS
--- NOTE | 2018-09-17 12:53 | PN ---
Progress Note (short form) - Note Progress Note: chart reviewed day #3 daptomycin remains on cefepime reports chronic cough due to chemo blood cultures 09/15 are positive fever curve slightly improved still neutropenic Vital Signs Period Temp Pulse Resp BP Sys/Max Pulse Ox Last 24 Hr 98.2 F-100.4 F 80-95 20-22 107-158/60-82 ?conjunctival hemorrhage left eye cor-rrr lungs clear abd soft,nt ext no edema no pain at port site CBC, BMP 09/17/18 06:50 09/17/18 06:50 Microbiology 09/14/18 16:20 Catheter Tip - Joshua Cath Foreign Body Culture - Final S Aureus 09/14/18 16:20 Catheter Site Gram Stain - Final 09/14/18 16:20 Catheter Site Wound Culture - Final Mr S Aureus 09/15/18 16:30 Blood - Peripheral Venous Blood Culture - Preliminary Pending Organism 09/15/18 15:00 Blood - Peripheral Venous Blood Culture - Preliminary NO GROWTH OBTAINED AFTER 24 HOURS, INCUBATION TO CONTINUE FOR 4 DAYS. 09/12/18 16:50 Blood - Joshua Cath Blood Culture - Final Mr S Aureus 09/12/18 16:50 Blood - Joshua Cath Blood Culture - Final Mr S Aureus 09/12/18 08:15 Blood - Peripheral Venous Blood Culture - Final Mr S Aureus 09/13/18 17:06 Stool Clostridioides difficile Antigen - Final 09/13/18 17:06 Stool Clostridioides difficile Toxin Assay - Final 09/12/18 08:10 Blood - Peripheral Venous Blood Culture - Final S Aureus 09/12/18 13:00 Urine - Urine Clean Catch Urine Culture - Final S Aureus a/p persitent MRSA bacteremia- ?endocarditis-limited transthoracic echo- cardiology eval for possible RANDY continue daptomycin day #3 repeat blood cultures add ceftaroline, d/c cefepime neutropenia/thromocytopenia- noted +cdiff antigen with diarrhea- on po vancomycin metastatic colon cancer overall prognosis is poor
[2018-09-17] MEDS: TBO-FILGRASTIM 480 MCG/0.8 ML DISP.SYRIN SQ SCH (13:15)
[2018-09-17] MEDS: POTASSIUM PHOSPHATE 30 MM in SODIUM CHLORIDE 500 ML IVPB ONE ×2 (13:23→15:06)
[2018-09-17] MEDS: CEFTAROLINE FOSAMIL ACETATE 600 MG in DEXTROSE 5%-WATER - 100 ML IVPB SCH ×2 (15:20→22:00)
[2018-09-17] MEDS: MULTIVIT INJ. ADULT COMBO WITH VIT K 1 COMBO 10 ML VIAL IV SCH ×2 (15:41→21:54)
--- NOTE | 2018-09-17 18:02 | CON.CARD ---
Consult Consult Specialty:: Cardiology Referred by:: Emma Brand MD Reason for Consultation:: Persistent MRSA Bacteremia - History of Present Illness Chief Complaint: Altered mental status, fever History of Present Illness: 72 yo h/o Multiple Myeloma, Thrombocytopenia, Metastatic Colon Ca to liver on chemotherapy s/p extended right hemicolectomy, admitted with fever, MRSA Bacteremia persisting despite removal of port, Neutropenic Sepsis, Anemia, Atrial Fibrillation, HTN, DM, CIDP receiving IVIG, still weak and dysphagic. On abx per C&S, we were asked for RANDY consideration. 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 recovering alcoholic since 1982 - Past Surgical History Past Surgical History: Yes: Arthrosocopy (left knee), Cataract Removal ( bilateral ), Colonoscopy, Hernia Repair (umbilical hernia repair 12/06/17 with colon resection), Tonsillectomy, Upper Endoscopy Additional Surgical History: laparoscopic extended right hemicolectomy for colon cancer, MARY ANNE and umbilical hernia repair Dr Ribeiro. 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 History of Recent Travel: No Home Medications - Allergies Allergies/Adverse Reactions: Allergies Allergy/AdvReac Type Severity Reaction Status Date / Time No Known Allergies Allergy Verified 09/12/18 08:59 - Home Medications Home Medications: Ambulatory Orders Gabapentin 400 mg PO BID 10/04/16 Allopurinol 300 mg PO DAILY 10/21/17 Atorvastatin Ca [Lipitor] 40 mg PO HS 10/21/17 Cyanocobalamin (Vitamin B-12) [Vitamin B12] 2,500 mcg PO DAILY 10/21/17 Oxycodone HCl [Oxycontin] 10 mg PO PRN PRN 10/21/17 Pantoprazole Sodium [Protonix] 40 mg PO DAILY 10/21/17 Apixaban [Eliquis -] 5 mg PO BID #0 tablet 06/22/18 Furosemide 40 mg PO DAILY 06/22/18 Metoprolol Succinate 25 mg PO BID 06/22/18 Family Disease History - Family Disease History Family Disease History: Other: Father (: 68: lung Ca), Mother (: 60's: myeloid leukemia ), Brother (1, : 65: colon cancer), Son (1, healthy), Daughter (1 with SLE) Review of Systems - Review of Systems Gastrointestinal: reports: Dysphagia Vital Signs: Vital Signs Temperature 100.3 F H 09/17/18 17:38 Pulse Rate 95 H 09/17/18 17:38 Respiratory Rate 20 09/17/18 17:38 Blood Pressure 128/73 09/17/18 17:38 O2 Sat by Pulse Oximetry (%) 97 09/16/18 09:00 Constitutional: Yes: No Distress, Calm Neck: Yes: Supple Respiratory: Yes: Regular, Diminished Gastrointestinal: Yes: Normal Bowel Sounds, Soft Cardiovascular: Yes: Regular Rate and Rhythm JVD: No Carotid Bruit: No Heart Sounds: Yes: S1, S2 Edema: No - Other Data Labs, Other Data: CBC, BMP 09/17/18 06:50 09/17/18 06:50 INR, PTT INR 1.28 (0.83-1.09) H 09/14/18 10:55 Fibrinogen 442.0 mg/dL (238-498) 09/15/18 15:00 ST @ 110 Ejection Fraction %: LVEF > or = 40 % Imaging - Results Chest X-ray: Report Reviewed (NAD post port-removal) Cat Scan: Report Reviewed (Hepatic mass suspicious of malignancy) Problem List - Problems (1) Atrial fibrillation Code(s): I48.91 - UNSPECIFIED ATRIAL FIBRILLATION Qualifiers: Atrial fibrillation type: paroxysmal Qualified Code(s): I48.0 - Paroxysmal atrial fibrillation (2) Dysphagia, oropharyngeal phase Code(s): R13.12 - DYSPHAGIA, OROPHARYNGEAL PHASE (3) MRSA (methicillin resistant staph aureus) culture positive Code(s): Z22.322 - CARRIER OR SUSPECTED CARRIER OF METHICILLIN RESIS STAPH (4) Multiple myeloma Code(s): C90.00 - MULTIPLE MYELOMA NOT HAVING ACHIEVED REMISSION Qualifiers: Multiple myeloma remission status: unspecified Qualified Code(s): C90.00 - Multiple myeloma not having achieved remission (5) CAD (coronary artery disease) Code(s): I25.10 - ATHSCL HEART DISEASE OF [place] CORONARY ARTERY W/O ANG PCTRS Qualifiers: Coronary Disease-Associated Artery/Lesion type: [place] artery [place] vs. transplanted heart: [place] heart Associated angina: without angina Qualified Code(s): I25.10 - Atherosclerotic heart disease of [place] coronary artery without angina pectoris (6) CIDP (chronic inflammatory demyelinating polyneuropathy) Code(s): G61.81 - CHRONIC INFLAMMATORY DEMYELINATING POLYNEURITIS (7) Diabetes mellitus Code(s): E11.9 - TYPE 2 DIABETES MELLITUS WITHOUT COMPLICATIONS Qualifiers: Diabetes mellitus type: type 2 Diabetes mellitus computer terminal operator insulin use: without computer terminal operator use Diabetes mellitus complication status: without complication Qualified Code(s): E11.9 - Type 2 diabetes mellitus without complications (8) Diastolic dysfunction Code(s): I51.9 - HEART DISEASE, UNSPECIFIED (9) HTN (hypertension) Code(s): I10 - ESSENTIAL (PRIMARY) HYPERTENSION Qualifiers: Hypertension type: essential hypertension Qualified Code(s): I10 - Essential (primary) hypertension (10) Hypercholesterolemia Code(s): E78.00 - PURE HYPERCHOLESTEROLEMIA, UNSPECIFIED Assessment/Plan 09/14/2018 Echo: Mild cLVH, LVEF 60%, mild MR, can't r/o endocarditis 1. Persistent MRSA bacteremia post port removal - line sepsis vs ?endocarditis- limited transthoracic echo 2. Continue abx and f/u C&S to document clearance 3. Pancytopenia with POOR RESPONSE TO NEUPOGEN AND BLOOD TRANSFUSION, history of multiple myeloma post stem cell transplant 4. cdiff antigen with diarrhea- on po vancomycin 5. metastatic colon cancer 6. 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 CAD, angina pectoris 8. Diastolic dysfunction 9. Paroxysmal atrial fibrillation currently in sinus rhythm [id number] score of 3, off A/C therapy with NOAC (Eliquis) 10. Hypertension 11. DM 12. Hypercholesterolemia P:1. Not ideal candidate for RANDY given thrombocytopenia placing him at risk for bleed, CIDP requiring IVIG with dysphagia placing him at risk for periprocedural aspiration, and additionally he is not candidate for valve surgery even if endocarditis/vegetations were confirmed given multiple co- morbidities, continue abx course with surveillance cultures to document clearance, will follow, case d/w family by bedside. 2. Thank you for consultative opportunity, overall prognosis is poor
--- NOTE | 2018-09-17 18:58 | PN ---
Progress Note, Physician History of Present Illness: No events today. Denies bleeding. Continues to have abdominal pain and diarrhea - Current Medication List Current Medications: Active Medications Acetaminophen (Ofirmev Injection -) 1,000 mg IVPB Q6H PRN PRN Reason: FEVER Last Admin: 09/16/18 18:37 Dose: 1,000 mg Gabapentin (Neurontin -) 400 mg PO BID [facility] Last Admin: 09/17/18 10:03 Dose: 400 mg Daptomycin 700 mg/ Sodium (Chloride) 50 mls @ 100 mls/hr IVPB DAILY [facility]; Protocol Last Admin: 09/17/18 10:49 Dose: 100 mls/hr Ceftaroline Fosamil 600 mg/ (Dextrose) 100 mls @ 200 mls/hr IVPB TID [facility]; Protocol Last Admin: 09/17/18 15:20 Dose: 200 mls/hr Lidocaine/Aluminum/Magnesium/Simeth (Magic Mouthwash *Sjr Formula* -) 5 ml MM Q6HPO PRN PRN Reason: ORAL PAIN/MOUTH SORES Last Admin: 09/16/18 12:20 Dose: 5 ml Metoprolol Succinate (Toprol Xl -) 25 mg PO BID [facility] Last Admin: 09/17/18 10:03 Dose: 25 mg Multivitamins/Minerals (Infuvite Adult -) 10 ml IV DAILY [facility] Last Admin: 09/17/18 15:41 Dose: Not Given Pantoprazole Sodium (Protonix Iv) 40 mg IVPB DAILY [facility] Last Admin: 09/17/18 10:04 Dose: 40 mg Tbo-Filgrastim (Granix -) 480 mcg SQ DAILY [facility] Last Admin: 09/17/18 13:15 Dose: 480 mcg Vancomycin HCl (Vancomycin Oral Solution) 125 mg PO Q6HPO [facility] Last Admin: 09/17/18 17:26 Dose: 125 mg - Objective Vital Signs: Vital Signs Temperature 100.3 F H 09/17/18 17:38 Pulse Rate 95 H 09/17/18 17:38 Respiratory Rate 20 09/17/18 17:38 Blood Pressure 128/73 09/17/18 17:38 O2 Sat by Pulse Oximetry (%) 97 09/16/18 09:00 Constitutional: Yes: No Distress Eyes: Yes: Conjunctiva Clear Cardiovascular: Yes: Regular Rate and Rhythm Respiratory: Yes: Regular, CTA Bilaterally Gastrointestinal: Yes: Soft, Tenderness (diffuse). No: Distention Edema: Yes Edema: LLE: Trace, RLE: Trace Labs: CBC, BMP 09/17/18 06:50 09/17/18 06:50 INR, PTT INR 1.28 (0.83-1.09) H 09/14/18 10:55 Fibrinogen 442.0 mg/dL (238-498) 09/15/18 15:00 Assessment/Plan 72M with AF on Eliquis, 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 lobe of liver metastasis (unresectable at this point due to fatty liver) started FOLFIRI 09/06/18, admitted on 09/12 with MRSA in blood/urine cultures thought to be 2/2 port (removed). On Daptomycin. Cefepime for broad coverage given neutropenia. Bcx so far clear from 09/15/18. Also with C. diff. On PO vanco. C/w neupogen fr neutropenia (re-ordered) Responded well to PRBC transfusion yesterday Thrombocytopenia likely 2/2 bacteremia and chemo. No bleeding. ? need for TTE Replete electrolytes Consider IVIG for dysphagia, given worsening sx on this admission
[2018-09-18] MEDS: CEFTAROLINE FOSAMIL ACETATE 600 MG in DEXTROSE 5%-WATER - 100 ML IVPB SCH ×3 (06:06→23:59)
[2018-09-18] MEDS: VANCOMYCIN 250 MG/5 ML ORAL SOLUTION PO SCH ×3 (06:06→18:07)
[2018-09-18 07:54] LABS: BASO % 0.7 % (0-2.0); EOS % 6.1 % (0-4.5); HEMATOCRIT 29.4 % (35.4-49); HEMOGLOBIN 9.7 GM/dL (11.7-16.9); LYMPH % 32.8 % (8-40); MCH 27.6 pg (25.7-33.7); MCHC 32.9 g/dl (32.0-35.9); MEAN CELL VOLUME 83.9 fl (80-96); MEAN PLT VOLUME 8.9 fl (7.5-11.1); MONO % 8.3 % (3.8-10.2); NEUT % 52.1 % (42.8-82.8); RDW 17.1 % (11.9-15.9)
[2018-09-18 08:17] LABS: WHITE BLOOD COUNT 1.6 K/mm3 (4.0-10.0)
[2018-09-18 08:18] LABS: PLATELET COUNT 25 K/MM3 (134-434)
[2018-09-18 08:31] LABS: CALCIUM 7.9 mg/dL (8.5-10.1); CREATININE 0.9 mg/dL (0.55-1.3); PHOSPHOROUS 1.8 mg/dL (2.5-4.9); POTASSIUM 3.1 mmol/L (3.5-5.1)
[2018-09-18] MEDS ORDERED: PT OWN MED DRAWER 7, Y5N ONE (10:03)
[2018-09-18] MEDS: GABAPENTIN 400 MG CAPSULE (FP) PO SCH ×2 (10:05→10:17)
[2018-09-18] MEDS: metoPROLOL SUCCINATE 25 MG TAB.SR.24H (FP) PO SCH ×2 (10:06→10:18)
[2018-09-18] MEDS: PANTOPRAZOLE SODIUM 40 MG VIAL IVPB SCH (10:06)
[2018-09-18] MEDS: MULTIVIT INJ. ADULT COMBO WITH VIT K 1 COMBO 10 ML VIAL IV SCH (10:08)
[2018-09-18] MEDS ORDERED: POTASSIUM CHLORIDE TABS 20 MEQ TABLET.ER (FP) PO ONE (10:30)
[2018-09-18] MEDS ORDERED: POTASSIUM PHOSPHATE 20 MM in SODIUM CHLORIDE 500 ML IVPB ONE (11:00)
[2018-09-18] MEDS ORDERED: POTASSIUM PHOSPHATE 20 MM in SODIUM CHLORIDE 250 ML IVPB ONE (11:00)
[2018-09-18] MEDS: TBO-FILGRASTIM 480 MCG/0.8 ML DISP.SYRIN SQ SCH (11:30)
[2018-09-18] MEDS: DAPTOMYCIN 700 MG in SODIUM CHLORIDE 50 ML IVPB SCH (11:30)
--- NOTE | 2018-09-18 11:30 | PN ---
GI Progress Note Subjective: GI NOte: Unable to swallow anything even with apple sauce. Diarrhea persists. - Objective Vital Signs: Vital Signs Temperature 99.2 F 09/18/18 07:01 Pulse Rate 100 H 09/18/18 07:01 Respiratory Rate 20 09/18/18 07:01 Blood Pressure 115/69 09/18/18 07:01 O2 Sat by Pulse Oximetry (%) 97 09/16/18 09:00 Constitutional: Anxious ...Auscultate: Yes: Normoactive Bowel Sounds ...Palpate: Yes: Other (nontender to palpation) Labs: CBC, BMP 09/18/18 06:00 09/18/18 06:00 INR, PTT INR 1.28 (0.83-1.09) H 09/14/18 10:55 Fibrinogen 442.0 mg/dL (238-498) 09/15/18 15:00 Assessment/Plan Impression; -Oropharyngeal dysphagia. discussed the case with Dr Barclay who has no hematological objections to giving IVIG. - Suspect that diarrhea is due to mucositis associated with neutropenia rather than C diff - Metastatic colon cancer Plan: -- I will place a call to Dr Monaco to consider administering another dose og IVIG as this has proven to be the remedy for this dysphagia in the past -- Stool for WBCs Problem List - Problems (1) Dysphagia, oropharyngeal phase Assessment/Plan: Michael describes his dysphagia as being at the oropharyngeal level. He intimates that it only responds to IVIG. Would consider giving another dosage if it is not contraindicated. Does not need an endoscopy at this time. Code(s): R13.12 - DYSPHAGIA, OROPHARYNGEAL PHASE (2) Diarrhea Assessment/Plan: Will check stool for WBC as I suspect the diarrhea reflects mucositis associated with neutropenia rather than C diff. Either is compounded by his hemicolectomy Code(s): R19.7 - DIARRHEA, UNSPECIFIED (3) MRSA (methicillin resistant staph aureus) culture positive Code(s): Z22.322 - CARRIER OR SUSPECTED CARRIER OF METHICILLIN RESIS STAPH (4) Atrial fibrillation Code(s): I48.91 - UNSPECIFIED ATRIAL FIBRILLATION Qualifiers: Atrial fibrillation type: paroxysmal Qualified Code(s): I48.0 - Paroxysmal atrial fibrillation (5) Multiple myeloma Code(s): C90.00 - MULTIPLE MYELOMA NOT HAVING ACHIEVED REMISSION Qualifiers: Multiple myeloma remission status: unspecified Qualified Code(s): C90.00 - Multiple myeloma not having achieved remission (6) Neutropenic sepsis Code(s): A41.9 - SEPSIS, UNSPECIFIED ORGANISM; D70.9 - NEUTROPENIA, UNSPECIFIED (7) Sepsis Code(s): A41.9 - SEPSIS, UNSPECIFIED ORGANISM Qualifiers: Sepsis type: sepsis due to unspecified organism Qualified Code(s): A41.9 - Sepsis, unspecified organism (8) Anemia Code(s): D64.9 - ANEMIA, UNSPECIFIED Qualifiers: Anemia type: unspecified type Qualified Code(s): D64.9 - Anemia, unspecified (9) C. difficile diarrhea Code(s): A04.72 - ENTEROCOLITIS D/T CLOSTRIDIUM DIFFICILE, NOT SPCF RECUR (10) Diabetes mellitus Code(s): E11.9 - TYPE 2 DIABETES MELLITUS WITHOUT COMPLICATIONS Qualifiers: Diabetes mellitus type: type 2 Diabetes mellitus fci insulin use: without wet sander use Diabetes mellitus complication status: without complication Qualified Code(s): E11.9 - Type 2 diabetes mellitus without complications (11) Family history of colon cancer Code(s): Z80.0 - FAMILY HISTORY OF MALIGNANT NEOPLASM OF DIGESTIVE ORGANS (12) HTN (hypertension) Code(s): I10 - ESSENTIAL (PRIMARY) HYPERTENSION Qualifiers: Hypertension type: essential hypertension Qualified Code(s): I10 - Essential (primary) hypertension (13) Hypercholesterolemia Code(s): E78.00 - PURE HYPERCHOLESTEROLEMIA, UNSPECIFIED (14) Schatzki's ring of distal esophagus Code(s): K22.2 - ESOPHAGEAL OBSTRUCTION (15) Status post insertion of percutaneous endoscopic gastrostomy (PEG) tube Code(s): Z93.1 - GASTROSTOMY STATUS (16) Colon cancer Code(s): C18.9 - MALIGNANT NEOPLASM OF COLON, UNSPECIFIED (17) CIDP (chronic inflammatory demyelinating polyneuropathy) Code(s): G61.81 - CHRONIC INFLAMMATORY DEMYELINATING POLYNEURITIS
--- NOTE | 2018-09-18 11:56 | PN ---
Progress Note (short form) - Note Progress Note: feels weak at bedside abd pain /soreness decreased appetite nausea+ diarrhea + Vital Signs - 24 hr 09/17/18 09/17/18 09/17/18 13:41 17:38 21:00 Temperature 99.2 F 100.3 F H 98.8 F Pulse Rate 96 H 95 H 95 H Respiratory 20 20 Rate Blood Pressure 142/80 128/73 130/72 09/18/18 07:01 Temperature 99.2 F Pulse Rate 100 H Respiratory 20 Rate Blood Pressure 115/69 Current Medications Generic Name Dose Route Start Last Admin Trade Name Freq PRN Reason Stop Dose Admin Acetaminophen 1,000 mg 09/16/18 10:10 09/16/18 18:37 Ofirmev Injection - IVPB 1,000 mg Q6H PRN Administration FEVER Gabapentin 400 mg 09/16/18 22:00 09/18/18 10:17 Neurontin - PO Not Given BID JAMIE Daptomycin 700 mg/ Sodium 50 mls @ 100 mls/hr 09/15/18 16:30 09/18/18 11:30 Chloride IVPB 100 mls/hr DAILY JAMIE Administration Protocol Ceftaroline Fosamil 600 mg/ 100 mls @ 200 mls/hr 09/17/18 14:00 09/18/18 06: 06 Dextrose IVPB 200 mls/hr TID JAMIE Administration Protocol Potassium Phosphate 20 mm/ 256.6667 mls @ 42.778 mls/hr 09/18/18 11:00 Sodium Chloride IVPB 09/18/18 16:59 ONCE ONE Lidocaine/Aluminum/Magnesium/Simeth 5 ml 09/16/18 11:07 09/16/18 12:20 Magic Mouthwash *Sjr Formula* - MM 5 ml Q6HPO PRN Administration ORAL PAIN/MOUTH SORES Metoprolol Succinate 25 mg 09/16/18 22:00 09/18/18 10:18 Toprol Xl - PO Not Given BID [facility] Multivitamins/Minerals 10 ml 09/16/18 15:00 09/18/18 10:08 Infuvite Adult - IV Not Given DAILY [facility] Pantoprazole Sodium 40 mg 09/17/18 10:00 09/18/18 10:06 Protonix Iv IVPB 40 mg DAILY JAMIE Administration Tbo-Filgrastim 480 mcg 09/16/18 10:00 09/18/18 11:30 Granix - SQ 480 mcg DAILY JAMIE Administration Vancomycin HCl 125 mg 09/16/18 18:00 09/18/18 06:06 Vancomycin Oral Solution PO 125 mg Q6HPO JAMIE Administration Laboratory Results - last 24 hr 09/14/18 09/17/18 09/18/18 09:50 06:50 06:00 WBC 1.6 L* RBC 3.50 L Hgb 9.7 L Hct 29.4 L MCV 83.9 MCH 27.6 MCHC 32.9 RDW 17.1 H Plt Count 25 L* MPV 8.9 Absolute Neuts (auto) 0.8 L Neutrophils % 52.1 D Neutrophils % (Manual) 30.9 L D Band Neutrophils % 2.1 Lymphocytes % 32.8 D Lymphocytes % (Manual) 40.2 H D Monocytes % 8.3 Monocytes % (Manual) 14 H D Eosinophils % 6.1 H Eosinophils % (Manual) 7.2 H D Basophils % 0.7 Basophils % (Manual) 2.1 H Myelocytes % (Man) 0 Promyelocytes % (Man) 0 Blast Cells % (Manual) 0 Nucleated RBC % 1 H Metamyelocytes 1 D Hypochromia 0 Platelet Estimate Decreased Polychromasia 0 Poikilocytosis 2+ Anisocytosis 1+ Microcytosis 1+ Macrocytosis 1+ Tear Drop Cells 1+ Ovalocytes 1+ Schistocytes 1+ Sodium Potassium Chloride Carbon Dioxide Anion Gap BUN Creatinine Est GFR (CKD-EPI)AfAm Est GFR (CKD-EPI)NonAf Random Glucose Calcium Phosphorus Magnesium Blood Type O POSITIVE Antibody Screen Negative Crossmatch See Detail 09/18/18 06:00 WBC RBC Hgb Hct MCV MCH MCHC RDW Plt Count MPV Absolute Neuts (auto) Neutrophils % Neutrophils % (Manual) Band Neutrophils % Lymphocytes % Lymphocytes % (Manual) Monocytes % Monocytes % (Manual) Eosinophils % Eosinophils % (Manual) Basophils % Basophils % (Manual) Myelocytes % (Man) Promyelocytes % (Man) Blast Cells % (Manual) Nucleated RBC % Metamyelocytes Hypochromia Platelet Estimate Polychromasia Poikilocytosis Anisocytosis Microcytosis Macrocytosis Tear Drop Cells Ovalocytes Schistocytes Sodium 140 Potassium 3.1 L Chloride 107 Carbon Dioxide 20 L Anion Gap 13 BUN 13 Creatinine 0.9 Est GFR (CKD-EPI)AfAm 98.55 Est GFR (CKD-EPI)NonAf 85.03 Random Glucose 117 H Calcium 7.9 L Phosphorus 1.8 L Magnesium 2.0 Blood Type Antibody Screen Crossmatch S1 S2 RRR Pale Lungs decreased breath sounds Abd- soft,tender all areas trace edema IV antibiotics -- cultures all positive for MRSA repeat cultures positive-- Cardiology evaluation for RANDY -- PT is high risk candidate portacath removed continue with meds IV fluids-->clinimix -- replace kulwant miguel on hold prognosis guarded -- spoke with Neurology ambulance operations supervisor - Dr Cisneros-- start Iv IG-- 0.4gm/kg/day x 5 days Problem List - Problems (1) Neutropenic sepsis Code(s): A41.9 - SEPSIS, UNSPECIFIED ORGANISM; D70.9 - NEUTROPENIA, UNSPECIFIED (2) Atrial fibrillation Code(s): I48.91 - UNSPECIFIED ATRIAL FIBRILLATION Qualifiers: Atrial fibrillation type: paroxysmal Qualified Code(s): I48.0 - Paroxysmal atrial fibrillation (3) History of colon cancer Code(s): Z85.038 - PERSONAL HISTORY OF MALIGNANT NEOPLASM OF LARGE INTESTINE (4) Multiple myeloma Code(s): C90.00 - MULTIPLE MYELOMA NOT HAVING ACHIEVED REMISSION Qualifiers: Multiple myeloma remission status: unspecified Qualified Code(s): C90.00 - Multiple myeloma not having achieved remission (5) Sepsis Code(s): A41.9 - SEPSIS, UNSPECIFIED ORGANISM Qualifiers: Sepsis type: sepsis due to unspecified organism Qualified Code(s): A41.9 - Sepsis, unspecified organism (6) Anemia Code(s): D64.9 - ANEMIA, UNSPECIFIED Qualifiers: Anemia type: unspecified type Qualified Code(s): D64.9 - Anemia, unspecified
[2018-09-18 12:10] LABS: ANISOCYTOSIS 1+; MACROCYTOSIS 1+; OVALOCYTE 1+; PLATELET ESTIMATE DECREASED; TEAR DROP CELLS 1+
--- NOTE | 2018-09-18 12:24 | PN ---
Progress Note (short form) - Note Progress Note: day #4 daptomycin ceftaroline added yesterday dirrhea about the same reports chronic cough due to chemo unable to swallow blood cultures 09/15 are positive WBC improving today Vital Signs Period Temp Pulse Resp BP Sys/Max Pulse Ox Last 24 Hr 98.8 F-100.3 F 95-100 20-20 115-142/69-80 cor-rrr lungs clear, decreased bs at bases abd soft,nt ext trace edema CBC, BMP 09/18/18 06:00 09/18/18 06:00 Microbiology 09/15/18 16:30 Blood - Peripheral Venous Blood Culture - Preliminary Staphylococcus Latex Coag Pos 09/15/18 15:00 Blood - Peripheral Venous Blood Culture - Preliminary NO GROWTH OBTAINED AFTER 48 HOURS, INCUBATION TO CONTINUE FOR 3 DAYS. 09/14/18 16:20 Catheter Tip - Joshua Cath Foreign Body Culture - Final S Aureus 09/14/18 16:20 Catheter Site Gram Stain - Final 09/14/18 16:20 Catheter Site Wound Culture - Final S Aureus 09/12/18 16:50 Blood - Joshua Cath Blood Culture - Final Mr S Aureus 09/12/18 16:50 Blood - Joshua Cath Blood Culture - Final S Aureus 09/12/18 08:15 Blood - Peripheral Venous Blood Culture - Final Mr S Aureus 09/13/18 17:06 Stool Clostridioides difficile Antigen - Final 09/13/18 17:06 Stool Clostridioides difficile Toxin Assay - Final 09/12/18 08:10 Blood - Peripheral Venous Blood Culture - Final S Aureus 09/12/18 13:00 Urine - Urine Clean Catch Urine Culture - Final S Aureus Current Medications Acetaminophen (Ofirmev Injection -) 1,000 mg IVPB Q6H PRN PRN Reason: FEVER Last Admin: 09/16/18 18:37 Dose: 1,000 mg Gabapentin (Neurontin -) 400 mg PO BID [facility] Last Admin: 09/18/18 10:17 Dose: Not Given Daptomycin 700 mg/ Sodium (Chloride) 50 mls @ 100 mls/hr IVPB DAILY [facility]; Protocol Last Admin: 09/18/18 11:30 Dose: 100 mls/hr Ceftaroline Fosamil 600 mg/ (Dextrose) 100 mls @ 200 mls/hr IVPB TID [facility]; Protocol Last Admin: 09/18/18 06:06 Dose: 200 mls/hr Potassium Phosphate 20 mm/ (Sodium Chloride) 256.6667 mls @ 42.778 mls/hr IVPB ONCE ONE Stop: 09/18/18 16:59 Last Admin: 09/18/18 12:20 Dose: 42.778 mls/hr Lidocaine/Aluminum/Magnesium/Simeth (Magic Mouthwash *Sjr Formula* -) 5 ml MM Q6HPO PRN PRN Reason: ORAL PAIN/MOUTH SORES Last Admin: 09/16/18 12:20 Dose: 5 ml Metoprolol Succinate (Toprol Xl -) 25 mg PO BID [facility] Last Admin: 09/18/18 10:18 Dose: Not Given Multivitamins/Minerals (Infuvite Adult -) 10 ml IV DAILY [facility] Last Admin: 09/18/18 10:08 Dose: Not Given Pantoprazole Sodium (Protonix Iv) 40 mg IVPB DAILY [facility] Last Admin: 09/18/18 10:06 Dose: 40 mg Tbo-Filgrastim (Granix -) 480 mcg SQ DAILY [facility] Last Admin: 09/18/18 11:30 Dose: 480 mcg Vancomycin HCl (Vancomycin Oral Solution) 125 mg PO Q6HPO [facility] Last Admin: 09/18/18 06:06 Dose: 125 mg a/p persitent MRSA bacteremia- ?endocarditis-limited transthoracic echo- cardiology eval noted- on maximal MRSA therapy continue daptomycin day #4 ceftaroline day #1 neutropenia/thromocytopenia- noted- neutropoenia improved +cdiff antigen with diarrhea- on po vancomycin metastatic colon cancer overall prognosis is poor d/w PMD
[2018-09-18] MEDS ORDERED: IMMUN GLOB G(IGG)/PRO/IGA 0-50 400 ML IVPB ONE ×2 (13:30→17:30)
[2018-09-18] MEDS ORDERED: DIPHENHYDRAMINE 25 MG in SODIUM CHLORIDE 50 ML IVPB ONE ×3 (13:30→17:00)
[2018-09-18] MEDS ORDERED: ACETAMINOPHEN 1000 MG/100 ML VIAL (NON FORMULARY) IVPB ONE ×2 (14:00→17:00)
[2018-09-18] MEDS: KCL 10 MEQ IVPB 10 MEQ/100 ML INFUS.BAG IVPB SCH ×2 (14:34→15:51)
--- NOTE | 2018-09-18 14:48 | PN ---
Progress Note, Physician History of Present Illness: Dysphagia worse, diarrhea persists. - Current Medication List Current Medications: Active Medications Acetaminophen (Ofirmev Injection -) 1,000 mg IVPB Q6H PRN PRN Reason: FEVER Last Admin: 09/16/18 18:37 Dose: 1,000 mg Acetaminophen (Ofirmev Injection -) 1,000 mg IVPB ONCE ONE Stop: 09/18/18 17:01 Daptomycin 700 mg/ Sodium (Chloride) 50 mls @ 100 mls/hr IVPB DAILY [facility]; Protocol Last Admin: 09/18/18 11:30 Dose: 100 mls/hr Ceftaroline Fosamil 600 mg/ (Dextrose) 100 mls @ 200 mls/hr IVPB TID [facility]; Protocol Last Admin: 09/18/18 06:06 Dose: 200 mls/hr Potassium Phosphate 20 mm/ (Sodium Chloride) 256.6667 mls @ 42.778 mls/hr IVPB ONCE ONE Stop: 09/18/18 16:59 Last Admin: 09/18/18 12:20 Dose: 42.778 mls/hr Fluconazole (Diflucan 100 Mg/Ns Premixed Ivpb -) 50 mls @ 50 mls/hr IVPB DAILY [facility] Diphenhydramine HCl 25 mg/ (Sodium Chloride) 50.5 mls @ 101 mls/hr IVPB ONCE ONE Stop: 09/18/18 17:29 Immune Globulin (Privigen 10% Vial) 400 mls @ 100 mls/hr IVPB ONCE ONE Stop: 09/18/18 21:29 Lidocaine/Aluminum/Magnesium/Simeth (Magic Mouthwash *Sjr Formula* -) 5 ml MM Q6HPO PRN PRN Reason: ORAL PAIN/MOUTH SORES Last Admin: 09/16/18 12:20 Dose: 5 ml Metoprolol Tartrate (Lopressor Injection -) 5 mg IVPB TID [facility] Multivitamins/Minerals (Infuvite Adult -) 10 ml IV DAILY [facility] Last Admin: 09/18/18 10:08 Dose: Not Given Pantoprazole Sodium (Protonix Iv) 40 mg IVPB DAILY [facility] Last Admin: 09/18/18 10:06 Dose: 40 mg Tbo-Filgrastim (Granix -) 480 mcg SQ DAILY [facility] Last Admin: 09/18/18 11:30 Dose: 480 mcg Vancomycin HCl (Vancomycin Oral Solution) 125 mg PO Q6HPO [facility] Last Admin: 09/18/18 12:35 Dose: 125 mg - Objective Vital Signs: Vital Signs Temperature 99.5 F 09/18/18 14:39 Pulse Rate 106 H 09/18/18 14:39 Respiratory Rate 20 09/18/18 14:39 Blood Pressure 119/70 09/18/18 14:39 O2 Sat by Pulse Oximetry (%) 99 09/18/18 09:00 Constitutional: Yes: No Distress, Calm Neck: Yes: Supple Cardiovascular: Yes: Regular Rate and Rhythm Respiratory: Yes: Regular, Diminished, On Nasal O2 Gastrointestinal: Yes: Soft, Hypoactive Bowel Sounds Edema: Yes Edema: LLE: Trace, RLE: Trace Labs: CBC, BMP 09/18/18 06:00 09/18/18 06:00 INR, PTT INR 1.28 (0.83-1.09) H 09/14/18 10:55 Fibrinogen 442.0 mg/dL (238-498) 09/15/18 15:00 Problem List - Problems (1) Atrial fibrillation Code(s): I48.91 - UNSPECIFIED ATRIAL FIBRILLATION Qualifiers: Atrial fibrillation type: paroxysmal Qualified Code(s): I48.0 - Paroxysmal atrial fibrillation (2) Dysphagia, oropharyngeal phase Code(s): R13.12 - DYSPHAGIA, OROPHARYNGEAL PHASE (3) MRSA (methicillin resistant staph aureus) culture positive Code(s): Z22.322 - CARRIER OR SUSPECTED CARRIER OF METHICILLIN RESIS STAPH (4) Multiple myeloma Code(s): C90.00 - MULTIPLE MYELOMA NOT HAVING ACHIEVED REMISSION Qualifiers: Multiple myeloma remission status: unspecified Qualified Code(s): C90.00 - Multiple myeloma not having achieved remission (5) CAD (coronary artery disease) Code(s): I25.10 - ATHSCL HEART DISEASE OF [place] CORONARY ARTERY W/O ANG PCTRS Qualifiers: Coronary Disease-Associated Artery/Lesion type: [place] artery [place] vs. transplanted heart: [place] heart Associated angina: without angina Qualified Code(s): I25.10 - Atherosclerotic heart disease of [place] coronary artery without angina pectoris (6) CIDP (chronic inflammatory demyelinating polyneuropathy) Code(s): G61.81 - CHRONIC INFLAMMATORY DEMYELINATING POLYNEURITIS (7) Diabetes mellitus Code(s): E11.9 - TYPE 2 DIABETES MELLITUS WITHOUT COMPLICATIONS Qualifiers: Diabetes mellitus type: type 2 Diabetes mellitus terminal operator insulin use: without snf use Diabetes mellitus complication status: without complication Qualified Code(s): E11.9 - Type 2 diabetes mellitus without complications (8) Diastolic dysfunction Code(s): I51.9 - HEART DISEASE, UNSPECIFIED (9) HTN (hypertension) Code(s): I10 - ESSENTIAL (PRIMARY) HYPERTENSION Qualifiers: Hypertension type: essential hypertension Qualified Code(s): I10 - Essential (primary) hypertension (10) Hypercholesterolemia Code(s): E78.00 - PURE HYPERCHOLESTEROLEMIA, UNSPECIFIED Assessment/Plan 09/14/2018 Echo: Mild cLVH, LVEF 60%, mild MR, can't r/o endocarditis 1. Persistent MRSA bacteremia post port removal - line sepsis vs ?endocarditis- limited transthoracic echo 2. Pancytopenia with POOR RESPONSE TO NEUPOGEN AND BLOOD TRANSFUSION, history of multiple myeloma post stem cell transplant 3. cdiff antigen with diarrhea- on po vancomycin 4. metastatic colon cancer 5. 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 CAD, angina pectoris 7. Diastolic dysfunction 8. Paroxysmal atrial fibrillation currently in sinus rhythm [id number] score of 3, off A/C therapy with NOAC (Eliquis) 9. Hypertension 10. DM 11. Hypercholesterolemia P:1. Not ideal candidate for RANDY given thrombocytopenia placing him at risk for bleed, CIDP requiring IVIG with dysphagia placing him at risk for periprocedural aspiration, and additionally he is not candidate for valve surgery even if endocarditis/vegetations were confirmed given multiple co- morbidities, continue abx course with surveillance cultures to document clearance, 09/17 bld cx NGTD thus far, will follow, case d/w family by bedside. 2. IV Lopressor for rate-control 3. Overall prognosis is poor
[2018-09-18] MEDS: FLUCONAZOLE 100 MG/NS 50 ML IVPB SCH (16:54)
[2018-09-18] MEDS: METOPROLOL TARTRATE 5 MG/5 ML VIAL IVPB SCH ×2 (17:35→23:35)
--- NOTE | 2018-09-18 22:04 | PN ---
Progress Note, Physician - Current Medication List Current Medications: Active Medications Acetaminophen (Ofirmev Injection -) 1,000 mg IVPB Q6H PRN PRN Reason: FEVER Last Admin: 09/16/18 18:37 Dose: 1,000 mg Daptomycin 700 mg/ Sodium (Chloride) 50 mls @ 100 mls/hr IVPB DAILY [facility]; Protocol Last Admin: 09/18/18 11:30 Dose: 100 mls/hr Ceftaroline Fosamil 600 mg/ (Dextrose) 100 mls @ 200 mls/hr IVPB TID [facility]; Protocol Last Admin: 09/18/18 18:12 Dose: 200 mls/hr Fluconazole (Diflucan 100 Mg/Ns Premixed Ivpb -) 50 mls @ 50 mls/hr IVPB DAILY [facility] Last Admin: 09/18/18 16:54 Dose: 50 mls/hr Lidocaine/Aluminum/Magnesium/Simeth (Magic Mouthwash *Sjr Formula* -) 5 ml MM Q6HPO PRN PRN Reason: ORAL PAIN/MOUTH SORES Last Admin: 09/16/18 12:20 Dose: 5 ml Metoprolol Tartrate (Lopressor Injection -) 5 mg IVPB TID [facility] Last Admin: 09/18/18 17:35 Dose: 5 mg Multivitamins/Minerals (Infuvite Adult -) 10 ml IV DAILY [facility] Last Admin: 09/18/18 10:08 Dose: Not Given Pantoprazole Sodium (Protonix Iv) 40 mg IVPB DAILY [facility] Last Admin: 09/18/18 10:06 Dose: 40 mg Tbo-Filgrastim (Granix -) 480 mcg SQ DAILY [facility] Last Admin: 09/18/18 11:30 Dose: 480 mcg Vancomycin HCl (Vancomycin Oral Solution) 125 mg PO Q6HPO [facility] Last Admin: 09/18/18 18:07 Dose: 125 mg - Objective Vital Signs: Vital Signs Temperature 98.4 F 09/18/18 20:14 Pulse Rate 92 H 09/18/18 20:14 Respiratory Rate 18 09/18/18 20:14 Blood Pressure 111/69 09/18/18 20:14 O2 Sat by Pulse Oximetry (%) 99 09/18/18 20:49 Labs: CBC, BMP 09/18/18 06:00 09/18/18 06:00 INR, PTT INR 1.28 (0.83-1.09) H 09/14/18 10:55 Fibrinogen 442.0 mg/dL (238-498) 09/15/18 15:00 Assessment/Plan 72M with AF on Eliquis, 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 lobe of liver metastasis (unresectable at this point due to fatty liver) started FOLFIRI 09/06/18, admitted on 09/12 with MRSA in blood/urine cultures thought to be 2/2 port (removed). Peristently + cultures (last from 09/15). Limited TTE. Not thought to be a good candidate for RANDY On Daptomycin. Ceftaroline for broad coverage given neutropenia. Bcx so far clear from 09/15/18. Also with C. diff. On PO vanco. ANC 800 today; c/w neupogen for another day Responded well to PRBC transfusion and Hgb stable Thrombocytopenia likely 2/2 bacteremia and chemo. No bleeding. s/p IVIG today for dysphagia
[2018-09-19] MEDS: VANCOMYCIN 250 MG/5 ML ORAL SOLUTION PO SCH ×4 (00:22→17:58)
[2018-09-19] MEDS: CEFTAROLINE FOSAMIL ACETATE 600 MG in DEXTROSE 5%-WATER - 100 ML IVPB SCH ×3 (05:05→22:19)
[2018-09-19] MEDS: METOPROLOL TARTRATE 5 MG/5 ML VIAL IVPB SCH ×3 (06:39→22:20)
[2018-09-19 08:00] LABS: ALBUMIN 2.2 g/dl (3.4-5.0); BILIRUBIN,TOTAL 0.7 mg/dL (0.2-1); CALCIUM 7.6 mg/dL (8.5-10.1); POTASSIUM 3.6 mmol/L (3.5-5.1); TOT PROT 6.4 g/dl (6.4-8.2)
[2018-09-19 10:32] LABS: HEMATOCRIT 31.1 % (35.4-49); MCH 27.9 pg (25.7-33.7); MCHC 32.2 g/dl (32.0-35.9); MEAN CELL VOLUME 86.8 fl (80-96); RBC 3.59 M/mm3 (4.00-5.60); RDW 17.9 % (11.9-15.9); WHITE BLOOD COUNT 2.2 K/mm3 (4.0-10.0)
[2018-09-19] MEDS ORDERED: PT OWN MED DRAWER 7, Y5N ONE ×3 (10:46→15:38)
[2018-09-19] MEDS: MULTIVIT INJ. ADULT COMBO WITH VIT K 1 COMBO 10 ML VIAL IV SCH ×2 (10:47→17:58)
--- NOTE | 2018-09-19 10:54 | PN ---
Progress Note, Physician History of Present Illness: Dysphagia improved with IVIG and Diflucan, diarrhea persists. - Current Medication List Current Medications: Active Medications Acetaminophen (Ofirmev Injection -) 1,000 mg IVPB Q6H PRN PRN Reason: FEVER Last Admin: 09/16/18 18:37 Dose: 1,000 mg Daptomycin 700 mg/ Sodium (Chloride) 50 mls @ 100 mls/hr IVPB DAILY [facility]; Protocol Last Admin: 09/18/18 11:30 Dose: 100 mls/hr Ceftaroline Fosamil 600 mg/ (Dextrose) 100 mls @ 200 mls/hr IVPB TID [facility]; Protocol Last Admin: 09/19/18 05:05 Dose: 200 mls/hr Fluconazole (Diflucan 100 Mg/Ns Premixed Ivpb -) 50 mls @ 50 mls/hr IVPB DAILY [facility] Last Admin: 09/18/18 16:54 Dose: 50 mls/hr Lidocaine/Aluminum/Magnesium/Simeth (Magic Mouthwash *Sjr Formula* -) 5 ml MM Q6HPO PRN PRN Reason: ORAL PAIN/MOUTH SORES Last Admin: 09/16/18 12:20 Dose: 5 ml Metoprolol Tartrate (Lopressor Injection -) 5 mg IVPB TID [facility] Last Admin: 09/19/18 06:39 Dose: 5 mg Multivitamins/Minerals (Infuvite Adult -) 10 ml IV DAILY [facility] Last Admin: 09/19/18 10:47 Dose: Not Given Pantoprazole Sodium (Protonix Iv) 40 mg IVPB DAILY [facility] Last Admin: 09/18/18 10:06 Dose: 40 mg Tbo-Filgrastim (Granix -) 480 mcg SQ DAILY [facility] Last Admin: 09/18/18 11:30 Dose: 480 mcg Vancomycin HCl (Vancomycin Oral Solution) 125 mg PO Q6HPO [facility] Last Admin: 09/19/18 05:11 Dose: 125 mg - Objective Vital Signs: Vital Signs Temperature 99.4 F 09/19/18 07:51 Pulse Rate 84 09/19/18 07:51 Respiratory Rate 20 09/19/18 07:51 Blood Pressure 138/76 09/19/18 07:51 O2 Sat by Pulse Oximetry (%) 99 09/18/18 20:49 Constitutional: Yes: No Distress, Calm Neck: Yes: Supple Cardiovascular: Yes: Regular Rate and Rhythm Respiratory: Yes: Regular, Diminished Gastrointestinal: Yes: Normal Bowel Sounds, Soft Edema: No Labs: CBC, BMP 09/19/18 06:18 INR, PTT INR 1.28 (0.83-1.09) H 09/14/18 10:55 Fibrinogen 442.0 mg/dL (238-498) 09/15/18 15:00 Problem List - Problems (1) Atrial fibrillation Code(s): I48.91 - UNSPECIFIED ATRIAL FIBRILLATION Qualifiers: Atrial fibrillation type: paroxysmal Qualified Code(s): I48.0 - Paroxysmal atrial fibrillation (2) Dysphagia, oropharyngeal phase Code(s): R13.12 - DYSPHAGIA, OROPHARYNGEAL PHASE (3) MRSA (methicillin resistant staph aureus) culture positive Code(s): Z22.322 - CARRIER OR SUSPECTED CARRIER OF METHICILLIN RESIS STAPH (4) Multiple myeloma Code(s): C90.00 - MULTIPLE MYELOMA NOT HAVING ACHIEVED REMISSION Qualifiers: Multiple myeloma remission status: unspecified Qualified Code(s): C90.00 - Multiple myeloma not having achieved remission (5) CAD (coronary artery disease) Code(s): I25.10 - ATHSCL HEART DISEASE OF [place] CORONARY ARTERY W/O ANG PCTRS Qualifiers: Coronary Disease-Associated Artery/Lesion type: [place] artery [place] vs. transplanted heart: [place] heart Associated angina: without angina Qualified Code(s): I25.10 - Atherosclerotic heart disease of [place] coronary artery without angina pectoris (6) CIDP (chronic inflammatory demyelinating polyneuropathy) Code(s): G61.81 - CHRONIC INFLAMMATORY DEMYELINATING POLYNEURITIS (7) Diabetes mellitus Code(s): E11.9 - TYPE 2 DIABETES MELLITUS WITHOUT COMPLICATIONS Qualifiers: Diabetes mellitus type: type 2 Diabetes mellitus retirement insulin use: without patient account specialist use Diabetes mellitus complication status: without complication Qualified Code(s): E11.9 - Type 2 diabetes mellitus without complications (8) Diastolic dysfunction Code(s): I51.9 - HEART DISEASE, UNSPECIFIED (9) HTN (hypertension) Code(s): I10 - ESSENTIAL (PRIMARY) HYPERTENSION Qualifiers: Hypertension type: essential hypertension Qualified Code(s): I10 - Essential (primary) hypertension (10) Hypercholesterolemia Code(s): E78.00 - PURE HYPERCHOLESTEROLEMIA, UNSPECIFIED Assessment/Plan 09/14/2018 Echo: Mild cLVH, LVEF 60%, mild MR, can't r/o endocarditis 1. Persistent MRSA bacteremia post port removal - line sepsis vs ?endocarditis- limited transthoracic echo 2. Pancytopenia with POOR RESPONSE TO NEUPOGEN AND BLOOD TRANSFUSION, history of multiple myeloma post stem cell transplant 3. cdiff antigen with diarrhea- on po vancomycin 4. metastatic colon cancer with rt. lobe of liver metastasis (unresectable at this point due to fatty liver) 5. 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 CAD, angina pectoris 7. Diastolic dysfunction 8. Paroxysmal atrial fibrillation currently in sinus rhythm [id number] score of 3, off A/C therapy with NOAC (Eliquis) 9. Hypertension 10. DM 11. Hypercholesterolemia P:1. Not ideal candidate for RANDY given thrombocytopenia placing him at risk for bleed, CIDP requiring IVIG with dysphagia placing him at risk for periprocedural aspiration, and additionally he is not candidate for valve surgery even if endocarditis/vegetations were confirmed given multiple co- morbidities, continue abx course with surveillance cultures to document clearance, 09/17 bld cx NGTD thus far, will follow, case d/w family by bedside. 2. IV Lopressor for rate-control 3. IVIG and Diflucan for dysphagia, possible oral thrush
--- NOTE | 2018-09-19 11:09 | PN ---
Progress Note (short form) - Note Progress Note: NEUROLOGY PROGRESS: Events reviewed and discussed with nursing staff. Permacath removed due to concern of + MRSA and now receiving IV antibiotics through peripheral line: Vancomycin, daptomycin, ceftaroline. Last IVIg 09/03, resumed yesterday. received 40 grams over 4 hours x 1. Pt maintained on 70 grams/day over 4 hours x 2 cons days. (140mg) Pt reporting improved swallowing today. Fluconazole recently added to regimen. For Jenifer esophagitis. Notes diarrhea has subsided. Reports "does not feel strong" enough to walk or get out of bed. WBC 0.7, H/H 7.6/23.0 - s/p transfusion and Neupogen; TSH 0.82; platelet= 37 UA WBC= 5 MIO: Cushingoid. Neck supple. Oropharynx with white plaques on tongue NEURO: 99.4. Awake, alert, responsive. OX [place]. September 19, 2018. TRUMP. "My birthday month." Mild OS ptosis. OD reactive to light, but OS fixed, eccentric, s/p glaucoma surgery. Blind OS. EOM's full. Preserved tongue AJE's. Gag ok Strong grasps. Strength in arms normal. Ankle dorsiflexion 4-/5 B/L. Areflexic Feels pinch and position in toes appropriately. Impression: Moderate, distal, sensorimotor peripheral neuropathy c/w CIDP Dysphagia- probably NOT on a neurological basis. Suggest: Continue IVIG 50 mg over 4 hours x 2 additional days (100 grams) totalling 140 grams Continue fluconazole for thrush. Please begin bedside PT and have Patient OOBed to chair TID for all meals to aide swallow. Thank you very much, Shahriar Monaco MD
[2018-09-19] MEDS: FLUCONAZOLE 100 MG/NS 50 ML IVPB SCH (11:14)
[2018-09-19] MEDS: PANTOPRAZOLE SODIUM 40 MG VIAL IVPB SCH (11:14)
[2018-09-19] MEDS: MAG HYDROX/ALH/SMC/DPHA/LIDO 240 ML MOUTHWASH MM PRN (11:14)
[2018-09-19] MEDS: DAPTOMYCIN 700 MG in SODIUM CHLORIDE 50 ML IVPB SCH (11:55)
--- NOTE | 2018-09-19 12:05 | PN ---
Progress Note, PRODUCT DEVELOPMENT CONSULTANT - Note Progress Note: Pt now on 8w. He has not had any food or liquid by mouth over the weekend. Magic mouth wash given but not trying food/liquid afterwards. IVIG tx [id number]. Today, tongue with thick white coating. Diflucan IV started 09/18. Clinimix given on Wednesday, 2 bags ordered. No longer receiving it. Reassessed after Magic mouth was with sip of thin water. Initially tolerated without difficulty. 2nd sip reported in dry cough followed by heaving, more cough, vocal wetness, without vomiting. IMP- Hypersensitivity of swallowing mechanism, suspected at esoph level. New evidence of Oral candidiasis, not visualized last week. Esophageal as well? IVIG and Diflucan both provided at this time REC: consider Clinimix if not contraindicated for nutritional support until pt can eat/drink by mouth d/c magic mouth wash if not beneficial?
--- NOTE | 2018-09-19 13:21 | PN ---
Progress Note, Physician History of Present Illness: AWAKE, ALERT IN BED C/O ANOREXIA SWALLOWING BETTER TEMPS DOWN AFEBRILE WBC SL IMPROVED 2.2 REPEAT BC (09/17) PRELIM NEGATIVE - Current Medication List Current Medications: Active Medications Acetaminophen (Ofirmev Injection -) 1,000 mg IVPB Q6H PRN PRN Reason: FEVER Last Admin: 09/16/18 18:37 Dose: 1,000 mg Daptomycin 700 mg/ Sodium (Chloride) 50 mls @ 100 mls/hr IVPB DAILY [facility]; Protocol Last Admin: 09/19/18 11:55 Dose: 100 mls/hr Ceftaroline Fosamil 600 mg/ (Dextrose) 100 mls @ 200 mls/hr IVPB TID [facility]; Protocol Last Admin: 09/19/18 05:05 Dose: 200 mls/hr Fluconazole (Diflucan 100 Mg/Ns Premixed Ivpb -) 50 mls @ 50 mls/hr IVPB DAILY [facility] Last Admin: 09/19/18 11:14 Dose: 50 mls/hr Lidocaine/Aluminum/Magnesium/Simeth (Magic Mouthwash *Sjr Formula* -) 5 ml MM Q6HPO PRN PRN Reason: ORAL PAIN/MOUTH SORES Last Admin: 09/19/18 11:14 Dose: 5 ml Metoprolol Tartrate (Lopressor Injection -) 5 mg IVPB TID [facility] Last Admin: 09/19/18 06:39 Dose: 5 mg Multivitamins/Minerals (Infuvite Adult -) 10 ml IV DAILY [facility] Last Admin: 09/19/18 10:47 Dose: Not Given Pantoprazole Sodium (Protonix Iv) 40 mg IVPB DAILY [facility] Last Admin: 09/19/18 11:14 Dose: 40 mg Tbo-Filgrastim (Granix -) 480 mcg SQ DAILY [facility] Last Admin: 09/18/18 11:30 Dose: 480 mcg Vancomycin HCl (Vancomycin Oral Solution) 125 mg PO Q6HPO [facility] Last Admin: 09/19/18 11:55 Dose: 125 mg - Objective Vital Signs: Vital Signs Temperature 99.4 F 09/19/18 07:51 Pulse Rate 84 09/19/18 07:51 Respiratory Rate 20 09/19/18 07:51 Blood Pressure 138/76 09/19/18 07:51 O2 Sat by Pulse Oximetry (%) 99 09/18/18 20:49 Constitutional: Yes: No Distress HENT: Yes: Thrush Cardiovascular: Yes: Regular Rate and Rhythm, S1, S2 Respiratory: Yes: CTA Bilaterally Gastrointestinal: Yes: Normal Bowel Sounds, Soft. No: Tenderness Edema: No Labs: CBC, BMP 09/19/18 06:16 09/19/18 06:18 INR, PTT INR 1.28 (0.83-1.09) H 09/14/18 10:55 Fibrinogen 442.0 mg/dL (238-498) 09/15/18 15:00 Assessment/Plan MRSA BACTEREMIA/ SEPSIS PROBABLE INFECTED PORT S/P REMOVAL NEUTROPENIA/PANCYTOPENIA THROMBOCYTOPENIA + C DIFF AZOTEMIA IMPROVED METASTATIC CA S/P CHEMO CHECK REPEAT BC CONTINUE DAPTOMYCIN/ CEFTAROLINE CONTINUE FLUCONAZOLE NEUTROPENIC PRECAUTIONS PROGNOSIS GUARDED
[2018-09-19] MEDS: TBO-FILGRASTIM 480 MCG/0.8 ML DISP.SYRIN SQ SCH (14:00)
[2018-09-19 14:07] LABS: MEAN PLT VOLUME 11.1 fl (7.5-11.1)
[2018-09-19 14:13] LABS: PLATELET COUNT 20 K/MM3 (134-434)
--- NOTE | 2018-09-19 14:51 | PN ---
Progress Note (short form) - Note Progress Note: feels weak at bedside abd pain /soreness decreased appetite nausea+ diarrhea + Vital Signs - 24 hr 09/18/18 09/18/18 09/18/18 17:16 17:35 20:14 Temperature 99.5 F 98.4 F Pulse Rate 108 H 108 H 92 H Respiratory 20 18 Rate Blood Pressure 112/74 112/74 111/69 O2 Sat by Pulse Oximetry (%) 09/18/18 09/18/18 09/19/18 20:49 23:35 06:39 Temperature Pulse Rate 96 H 84 Respiratory Rate Blood Pressure 117/71 138/76 O2 Sat by Pulse 99 Oximetry (%) 09/19/18 09/19/18 09/19/18 07:51 11:00 14:01 Temperature 99.4 F 98.9 F Pulse Rate 84 96 H 84 Respiratory 20 18 Rate Blood Pressure 138/76 125/78 125/75 O2 Sat by Pulse Oxie try (%) Current Medications Generic Name Dose Route Start Last Admin Trade Name Freq PRN Reason Stop Dose Admin Acetaminophen 1,000 mg 09/16/18 10:10 09/16/18 18:37 Ofirmev Injection - IVPB 1,000 mg Q6H PRN Administration FEVER Daptomycin 700 mg/ Sodium 50 mls @ 100 mls/hr 09/15/18 16:30 09/19/18 11:55 Chloride IVPB 100 mls/hr DAILY [facility] Administration Protocol Ceftaroline Fosamil 600 mg/ 100 mls @ 200 mls/hr 09/17/18 14:00 09/19/18 14: 00 Dextrose IVPB 200 mls/hr TID [facility]IE Administration Protocol Fluconazole 50 mls @ 50 mls/hr 09/18/18 12:30 09/19/18 11:14 Diflucan 100 Mg/Ns Premixed Ivpb - IVPB 50 mls/hr DAILY [facility] Administration Amino Acids 1,000 mls @ 84 mls/hr 09/19/18 14:00 Clinimix - IV Q12H [facility] Lidocaine/Aluminum/Magnesium/Simeth 5 ml 09/16/18 11:07 09/19/18 11:14 Magic Mouthwash *Sjr Formula* - MM 5 ml Q6HPO PRN Administration ORAL PAIN/MOUTH SORES Metoprolol Tartrate 5 mg 09/18/18 14:00 09/19/18 14:01 Lopressor Injection - IVPB 5 mg TID [facility]IE Administration Pantoprazole Sodium 40 mg 09/17/18 10:00 09/19/18 11:14 Protonix Iv IVPB 40 mg DAILY [facility] Administration Tbo-Filgrastim 480 mcg 09/16/18 10:00 09/19/18 14:00 Granix - SQ 480 mcg DAILY [facility] Administration Vancomycin HCl 125 mg 09/16/18 18:00 09/19/18 11:55 Vancomycin Oral Solution PO 125 mg Q6HPO [facility] Administration Laboratory Results - last 24 hr 09/14/18 09/19/18 09/19/18 09:50 06:16 06:18 WBC 2.2 L RBC 3.59 L Hgb 10.0 L Hct 31.1 L MCV 86.8 MCH 27.9 MCHC 32.2 RDW 17.9 H Plt Count 20 L* MPV 11.1 D Platelet Comment No clumping noted Sodium 138 Potassium 3.6 Chloride 106 Carbon Dioxide 22 Anion Gap 9 BUN 14 Creatinine 1.0 Est GFR (CKD-EPI)AfAm 86.76 Est GFR (CKD-EPI)NonAf 74.86 Random Glucose 121 H Calcium 7.6 L Total Bilirubin 0.7 AST 35 ALT 30 Alkaline Phosphatase 165 H Total Protein 6.4 Albumin 2.2 L Blood Type O POSITIVE Antibody Screen Negative Crossmatch See Detail S1 S2 RRR Pale Lungs decreased breath sounds Abd- soft,tender all areas trace edema IV antibiotics -- cultures repeat negative Cardiology evaluation for RANDY -- PT is high risk candidate continue with meds IV fluids-->clinimix -- replace lytes eliquis on hold prognosis guarded -- on iv IG palliative care Problem List - Problems (1) Neutropenic sepsis Code(s): A41.9 - SEPSIS, UNSPECIFIED ORGANISM; D70.9 - NEUTROPENIA, UNSPECIFIED (2) Atrial fibrillation Code(s): I48.91 - UNSPECIFIED ATRIAL FIBRILLATION Qualifiers: Atrial fibrillation type: paroxysmal Qualified Code(s): I48.0 - Paroxysmal atrial fibrillation (3) History of colon cancer Code(s): Z85.038 - PERSONAL HISTORY OF MALIGNANT NEOPLASM OF LARGE INTESTINE (4) Multiple myeloma Code(s): C90.00 - MULTIPLE MYELOMA NOT HAVING ACHIEVED REMISSION Qualifiers: Multiple myeloma remission status: unspecified Qualified Code(s): C90.00 - Multiple myeloma not having achieved remission (5) Sepsis Code(s): A41.9 - SEPSIS, UNSPECIFIED ORGANISM Qualifiers: Sepsis type: sepsis due to unspecified organism Qualified Code(s): A41.9 - Sepsis, unspecified organism (6) Anemia Code(s): D64.9 - ANEMIA, UNSPECIFIED Qualifiers: Anemia type: unspecified type Qualified Code(s): D64.9 - Anemia, unspecified
[2018-09-19] MEDS: AMINO ACIDS 4.25%/D5W 1,000 ML IV SCH (15:41)
--- NOTE | 2018-09-19 16:54 | PN ---
Progress Note (short form) - Note Progress Note: Patient seen and examined Remains critically ill Afebrile Some diarrhea Little p.o. intake Last Vital Signs Temp Pulse Resp BP Pulse Ox 97.8 F 95 H 18 112/66 99 09/19/18 14:50 09/19/18 14:50 09/19/18 14:50 09/19/18 14:50 09/19/18 09:00 HEENT: [place] Oropharynx: thrush, No mucositis Neck: Supple Nodes: Without adenopathy Cor: RSR, systolic murmur Lungs: diminished breath sounds Abd: Soft, Normal bowel sounds, No organomegaly Ext:No significant edema Skin: No rashes, Integument intact CBC, BMP 09/19/18 06:16 09/19/18 06:18 Current Medications Generic Name Dose Route Start Last Admin Trade Name Freq PRN Reason Stop Dose Admin Acetaminophen 1,000 mg 09/16/18 10:10 09/16/18 18:37 Ofirmev Injection - IVPB 1,000 mg Q6H PRN Administration FEVER Daptomycin 700 mg/ Sodium 50 mls @ 100 mls/hr 09/15/18 16:30 09/19/18 11:55 Chloride IVPB 100 mls/hr DAILY JAMIE Administration Protocol Ceftaroline Fosamil 600 mg/ 100 mls @ 200 mls/hr 09/17/18 14:00 09/19/18 14: 00 Dextrose IVPB 200 mls/hr TID JAMIE Administration Protocol Fluconazole 50 mls @ 50 mls/hr 09/18/18 12:30 09/19/18 11:14 Diflucan 100 Mg/Ns Premixed Ivpb - IVPB 50 mls/hr DAILY JAMIE Administration Amino Acids 1,000 mls @ 84 mls/hr 09/19/18 14:00 09/19/18 15:41 Clinimix - IV 84 mls/hr Q12H JAMIE Administration Lidocaine/Aluminum/Magnesium/Simeth 5 ml 09/16/18 11:07 09/19/18 11:14 Magic Mouthwash *Sjr Formula* - MM 5 ml Q6HPO PRN Administration ORAL PAIN/MOUTH SORES Metoprolol Tartrate 5 mg 09/18/18 14:00 09/19/18 14:01 Lopressor Injection - IVPB 5 mg TID JAMIE Administration Multivitamins/Minerals 10 ml 09/19/18 15:30 Infuvite Adult - IV DAILY@1530 JAMIE Pantoprazole Sodium 40 mg 09/17/18 10:00 09/19/18 11:14 Protonix Iv IVPB 40 mg DAILY JAMIE Administration Tbo-Filgrastim 480 mcg 09/16/18 10:00 09/19/18 14:00 Granix - SQ 480 mcg DAILY JAMIE Administration Vancomycin HCl 125 mg 09/16/18 18:00 09/19/18 11:55 Vancomycin Oral Solution PO 125 mg Q6HPO JAMIE Administration Impression: MRSA sepsis Port removal secondary to MRSA C.diff positive Thrush Pancytopenia myeloma -s/p transplant colon ca /liver mets s/p liver ablation S/p FOLFIRI chemotherapy dysphagia Plan: Antibiotics per ID Neupogen (granix) Platelets prn transfusion --likely depressed from chemotherapy/sepsis/ +/_ antibiotics Gamma globulin per neurology Transf;usion of platelts pending repeat values
[2018-09-19 17:13] LABS: HEMOGLOBIN 9.6 GM/dL (11.7-16.9)
[2018-09-19 17:18] LABS: HEMATOCRIT 29.2 % (35.4-49); MCHC 32.7 g/dl (32.0-35.9); MEAN CELL VOLUME 85.6 fl (80-96); MEAN PLT VOLUME 8.9 fl (7.5-11.1); RBC 3.41 M/mm3 (4.00-5.60); RDW 17.3 % (11.9-15.9); WHITE BLOOD COUNT 2.6 K/mm3 (4.0-10.0)
[2018-09-19 17:21] LABS: PLATELET COUNT 19 K/MM3 (134-434)
[2018-09-19] MEDS: IMMUNE GLOBULIN (IgG) 20 GM VIAL (PRIVIGEN) IVPB SCH (20:43)
--- NOTE | 2018-09-19 22:19 | PN ---
Progress Note (short form) - Note Progress Note: GI NOte: Swallowing is slightly better today. WBC rising. Receiving IVIG again. Problem List - Problems (1) Dysphagia, oropharyngeal phase Code(s): R13.12 - DYSPHAGIA, OROPHARYNGEAL PHASE (2) Diarrhea Code(s): R19.7 - DIARRHEA, UNSPECIFIED (3) MRSA (methicillin resistant staph aureus) culture positive Code(s): Z22.322 - CARRIER OR SUSPECTED CARRIER OF METHICILLIN RESIS STAPH (4) Atrial fibrillation Code(s): I48.91 - UNSPECIFIED ATRIAL FIBRILLATION Qualifiers: Atrial fibrillation type: paroxysmal Qualified Code(s): I48.0 - Paroxysmal atrial fibrillation (5) Multiple myeloma Code(s): C90.00 - MULTIPLE MYELOMA NOT HAVING ACHIEVED REMISSION Qualifiers: Multiple myeloma remission status: unspecified Qualified Code(s): C90.00 - Multiple myeloma not having achieved remission (6) Neutropenic sepsis Code(s): A41.9 - SEPSIS, UNSPECIFIED ORGANISM; D70.9 - NEUTROPENIA, UNSPECIFIED (7) Sepsis Code(s): A41.9 - SEPSIS, UNSPECIFIED ORGANISM Qualifiers: Sepsis type: sepsis due to unspecified organism Qualified Code(s): A41.9 - Sepsis, unspecified organism (8) Anemia Code(s): D64.9 - ANEMIA, UNSPECIFIED Qualifiers: Anemia type: unspecified type Qualified Code(s): D64.9 - Anemia, unspecified (9) C. difficile diarrhea Code(s): A04.72 - ENTEROCOLITIS D/T CLOSTRIDIUM DIFFICILE, NOT SPCF RECUR (10) Diabetes mellitus Code(s): E11.9 - TYPE 2 DIABETES MELLITUS WITHOUT COMPLICATIONS Qualifiers: Diabetes mellitus type: type 2 Diabetes mellitus moth exterminator insulin use: without penitentiary use Diabetes mellitus complication status: without complication Qualified Code(s): E11.9 - Type 2 diabetes mellitus without complications (11) Family history of colon cancer Code(s): Z80.0 - FAMILY HISTORY OF MALIGNANT NEOPLASM OF DIGESTIVE ORGANS (12) HTN (hypertension) Code(s): I10 - ESSENTIAL (PRIMARY) HYPERTENSION Qualifiers: Hypertension type: essential hypertension Qualified Code(s): I10 - Essential (primary) hypertension (13) Hypercholesterolemia Code(s): E78.00 - PURE HYPERCHOLESTEROLEMIA, UNSPECIFIED (14) Schatzki's ring of distal esophagus Code(s): K22.2 - ESOPHAGEAL OBSTRUCTION (15) Status post insertion of percutaneous endoscopic gastrostomy (PEG) tube Code(s): Z93.1 - GASTROSTOMY STATUS (16) Colon cancer Code(s): C18.9 - MALIGNANT NEOPLASM OF COLON, UNSPECIFIED (17) CIDP (chronic inflammatory demyelinating polyneuropathy) Code(s): G61.81 - CHRONIC INFLAMMATORY DEMYELINATING POLYNEURITIS
[2018-09-20] MEDS: VANCOMYCIN 250 MG/5 ML ORAL SOLUTION PO SCH ×4 (00:53→18:00)
[2018-09-20] MEDS: AMINO ACIDS 4.25%/D5W 1,000 ML IV SCH ×2 (04:40→14:48)
[2018-09-20] MEDS: CEFTAROLINE FOSAMIL ACETATE 600 MG in DEXTROSE 5%-WATER - 100 ML IVPB SCH ×3 (05:53→22:51)
[2018-09-20] MEDS: METOPROLOL TARTRATE 5 MG/5 ML VIAL IVPB SCH ×2 (06:34→14:48)
[2018-09-20 07:55] LABS: BASO % 0.6 % (0-2.0); EOS % 2.1 % (0-4.5); HEMATOCRIT 28.4 % (35.4-49); HEMOGLOBIN 9.4 GM/dL (11.7-16.9); LYMPH % 21.2 % (8-40); MCH 28.1 pg (25.7-33.7); MEAN CELL VOLUME 85.2 fl (80-96); MEAN PLT VOLUME 8.1 fl (7.5-11.1); MONO % 5.8 % (3.8-10.2); NEUT % 70.3 % (42.8-82.8); RBC 3.34 M/mm3 (4.00-5.60); RDW 17.8 % (11.9-15.9); WHITE BLOOD COUNT 3.1 K/mm3 (4.0-10.0)
[2018-09-20 08:26] LABS: PLATELET COUNT 14 K/MM3 (134-434)
[2018-09-20 08:27] LABS: ALBUMIN 2.1 g/dl (3.4-5.0); BILIRUBIN,TOTAL 0.6 mg/dL (0.2-1); CALCIUM 7.5 mg/dL (8.5-10.1); CREATININE 0.9 mg/dL (0.55-1.3); TOT PROT 6.9 g/dl (6.4-8.2)
[2018-09-20 08:46] LABS: POTASSIUM 2.7 mmol/L (3.5-5.1)
--- NOTE | 2018-09-20 09:28 | PN ---
Progress Note (short form) - Note Progress Note: feels weak abd pain /soreness decreased appetite nausea+ diarrhea + Vital Signs - 24 hr 09/19/18 09/19/18 09/19/18 21:00 22:04 22:20 Temperature 98 F Pulse Rate 80 94 H Respiratory 18 Rate Blood Pressure 130/90 126/75 O2 Sat by Pulse 99 Oximetry (%) 09/20/18 09/20/18 09/20/18 06:34 07:35 11:00 Temperature 99 F 98.3 F Pulse Rate 90 92 H 96 H Respiratory 20 18 Rate Blood Pressure 131/72 140/80 125/78 O2 Sat by Pulse Oximetry (%) 09/20/18 14:48 Temperature Pulse Rate 93 H Respiratory Rate Blood Pressure 135/78 O2 Sat by Pulse Oximetry (%) Current Medications Generic Name Dose Route Start Last Admin Trade Name Freq PRN Reason Stop Dose Admin Acetaminophen 1,000 mg 09/16/18 10:10 09/16/18 18:37 Ofirmev Injection - IVPB 1,000 mg Q6H PRN Administration FEVER Daptomycin 700 mg/ Sodium 50 mls @ 100 mls/hr 09/15/18 16:30 09/20/18 11:13 Chloride IVPB 100 mls/hr DAILY JAMIE Administration Protocol Ceftaroline Fosamil 600 mg/ 100 mls @ 200 mls/hr 09/17/18 14:00 09/20/18 13: 59 Dextrose IVPB 200 mls/hr TID JAMIE Administration Protocol Fluconazole 50 mls @ 50 mls/hr 09/18/18 12:30 09/20/18 10:38 Diflucan 100 Mg/Ns Premixed Ivpb - IVPB 50 mls/hr DAILY JAMIE Administration Amino Acids 1,000 mls @ 84 mls/hr 09/19/18 14:00 09/20/18 14:48 Clinimix - IV 84 mls/hr Q12H JAMIE Administration Immune Globulin 50 gm 09/19/18 19:00 09/19/18 20:43 Privigen 10% Vial IVPB 09/20/18 19:01 50 gm Q24H JAMIE Administration Lidocaine/Aluminum/Magnesium/Simeth 5 ml 09/16/18 11:07 09/20/18 10:39 Magic Mouthwash *Sjr Formula* - MM 5 ml Q6HPO PRN Administration ORAL PAIN/MOUTH SORES Metoprolol Tartrate 5 mg 09/18/18 14:00 09/20/18 14:48 Lopressor Injection - IVPB 5 mg TID JAMIE Administration Multivitamins/Minerals 10 ml 09/19/18 15:30 09/20/18 14:48 Infuvite Adult - IV 10 ml DAILY@1530 JAMIE Administration Pantoprazole Sodium 40 mg 09/17/18 10:00 09/20/18 09:42 Protonix Iv IVPB 40 mg DAILY JAMIE Administration Tbo-Filgrastim 480 mcg 09/16/18 10:00 09/20/18 13:59 Granix - SQ 480 mcg DAILY JAMIE Administration Vancomycin HCl 125 mg 09/16/18 18:00 09/20/18 11:19 Vancomycin Oral Solution PO 125 mg Q6HPO JAMIE Administration Laboratory Results - last 24 hr 09/14/18 09/19/18 09/20/18 09:50 16:35 06:21 WBC 2.6 L 3.1 L RBC 3.41 L 3.34 L Hgb 9.6 L 9.4 L Hct 29.2 L 28.4 L MCV 85.6 85.2 MCH 28.0 28.1 MCHC 32.7 33.0 RDW 17.3 H 17.8 H Plt Count 19 L* 14 L* D MPV 8.9 D 8.1 Absolute Neuts (auto) 2.2 Neutrophils % 70.3 D Neutrophils % (Manual) 61.5 D Band Neutrophils % 2.1 Lymphocytes % 21.2 D Lymphocytes % (Manual) 13.5 D Monocytes % 5.8 Monocytes % (Manual) 16 H Eosinophils % 2.1 Eosinophils % (Manual) 3.1 Basophils % 0.6 Basophils % (Manual) 0.0 Myelocytes % (Man) 0 Promyelocytes % (Man) 0 Blast Cells % (Manual) 0 Nucleated RBC % 0 Metamyelocytes 0 D Hypochromia 0 Platelet Estimate Decreased Polychromasia 1+ Poikilocytosis 1+ Anisocytosis 1+ Microcytosis 1+ Macrocytosis 0 Fragmented RBCs 1+ Sodium Potassium Chloride Carbon Dioxide Anion Gap BUN Creatinine Est GFR (CKD-EPI)AfAm Est GFR (CKD-EPI)NonAf Random Glucose Calcium Total Bilirubin AST ALT Alkaline Phosphatase Total Protein Albumin Blood Type O POSITIVE Antibody Screen Negative Crossmatch See Detail 09/20/18 09/20/1809/20/19 06:21 09:27 11:05 WBC RBC Hgb Hct MCV MCH MCHC RDW Plt Count MPV Absolute Neuts (auto) Neutrophils % Neutrophils % (Manual) Band Neutrophils % Lymphocytes % Lymphocytes % (Manual) Monocytes % Monocytes % (Manual) Eosinophils % Eosinophils % (Manual) Basophils % Basophils % (Manual) Myelocytes % (Man) Promyelocytes % (Man) Blast Cells % (Manual) Nucleated RBC % Metamyelocytes Hypochromia Platelet Estimate Polychromasia Poikilocytosis Anisocytosis Microcytosis Macrocytosis Fragmented RBCs Sodium 134 L Potassium 2.7 L* Chloride 105 Carbon Dioxide 19 L Anion Gap 9 BUN 15 Creatinine 0.9 Est GFR (CKD-EPI)AfAm 98.55 Est GFR (CKD-EPI)NonAf 85.03 Random Glucose 155 H Calcium 7.5 L Total Bilirubin 0.6 AST 25 ALT 24 Alkaline Phosphatase 150 H Total Protein 6.9 Albumin 2.1 L Blood Type Cancelled O POSITIVE Antibody Screen Cancelled Negative Crossmatch S1 S2 RRR Pale Lungs decreased breath sounds Abd- soft,tender all areas trace edema IV antibiotics -- cultures repeat negative Cardiology evaluation for RANDY -- PT is high risk candidate continue with meds IV fluids-->clinimix -- replace lytes give 1 unit of platelets Dysphagia not improving with IVIG eliquis on hold prognosis guarded -- on iv IG palliative care Problem List - Problems (1) Neutropenic sepsis Code(s): A41.9 - SEPSIS, UNSPECIFIED ORGANISM; D70.9 - NEUTROPENIA, UNSPECIFIED (2) Atrial fibrillation Code(s): I48.91 - UNSPECIFIED ATRIAL FIBRILLATION Qualifiers: Atrial fibrillation type: paroxysmal Qualified Code(s): I48.0 - Paroxysmal atrial fibrillation (3) History of colon cancer Code(s): Z85.038 - PERSONAL HISTORY OF MALIGNANT NEOPLASM OF LARGE INTESTINE (4) Multiple myeloma Code(s): C90.00 - MULTIPLE MYELOMA NOT HAVING ACHIEVED REMISSION Qualifiers: Multiple myeloma remission status: unspecified Qualified Code(s): C90.00 - Multiple myeloma not having achieved remission (5) Sepsis Code(s): A41.9 - SEPSIS, UNSPECIFIED ORGANISM Qualifiers: Sepsis type: sepsis due to unspecified organism Qualified Code(s): A41.9 - Sepsis, unspecified organism (6) Anemia Code(s): D64.9 - ANEMIA, UNSPECIFIED Qualifiers: Anemia type: unspecified type Qualified Code(s): D64.9 - Anemia, unspecified
[2018-09-20] MEDS ORDERED: PT OWN MED DRAWER 7, Y5N ONE ×5 (09:37→22:42)
[2018-09-20] MEDS: KCL 10 MEQ IVPB 10 MEQ/100 ML INFUS.BAG IVPB SCH ×3 (09:42→14:48)
[2018-09-20] MEDS: PANTOPRAZOLE SODIUM 40 MG VIAL IVPB SCH (09:42)
[2018-09-20] MEDS: FLUCONAZOLE 100 MG/NS 50 ML IVPB SCH (10:38)
[2018-09-20] MEDS: MAG HYDROX/ALH/SMC/DPHA/LIDO 240 ML MOUTHWASH MM PRN (10:39)
[2018-09-20] MEDS: DAPTOMYCIN 700 MG in SODIUM CHLORIDE 50 ML IVPB SCH (11:13)
--- NOTE | 2018-09-20 11:28 | PN ---
Progress Note, Physician History of Present Illness: AWAKE, ALERT IN BED C/O DYSPHAGIA, INABILITY TO SWALLOW EVEN LIQUIDS TEMPS REMAIN DOWN AFEBRILE WBC IMPROVED 3.1k ANC 2.2 PLT REMAIN LOW REPEAT BC (09/17) NEGATIVE - Current Medication List Current Medications: Active Medications Acetaminophen (Ofirmev Injection -) 1,000 mg IVPB Q6H PRN PRN Reason: FEVER Last Admin: 09/16/18 18:37 Dose: 1,000 mg Daptomycin 700 mg/ Sodium (Chloride) 50 mls @ 100 mls/hr IVPB DAILY [facility]; Protocol Last Admin: 09/20/18 11:13 Dose: 100 mls/hr Ceftaroline Fosamil 600 mg/ (Dextrose) 100 mls @ 200 mls/hr IVPB TID [facility]; Protocol Last Admin: 09/20/18 05:53 Dose: 200 mls/hr Fluconazole (Diflucan 100 Mg/Ns Premixed Ivpb -) 50 mls @ 50 mls/hr IVPB DAILY [facility] Last Admin: 09/20/18 10:38 Dose: 50 mls/hr Amino Acids (Clinimix -) 1,000 mls @ 84 mls/hr IV Q12H [facility] Last Admin: 09/20/18 04:40 Dose: 84 mls/hr Potassium Chloride (Potassium Chloride 10 Meq Premix Ivpb -) 10 meq in 100 mls @ 100 mls/hr IVPB Q60M [facility] Stop: 09/20/18 12:44 Last Admin: 09/20/18 11:19 Dose: 100 mls/hr Immune Globulin (Privigen 10% Vial) 50 gm IVPB Q24H [facility] Stop: 09/20/18 19:01 Last Admin: 09/19/18 20:43 Dose: 50 gm Lidocaine/Aluminum/Magnesium/Simeth (Magic Mouthwash *Sjr Formula* -) 5 ml MM Q6HPO PRN PRN Reason: ORAL PAIN/MOUTH SORES Last Admin: 09/20/18 10:39 Dose: 5 ml Metoprolol Tartrate (Lopressor Injection -) 5 mg IVPB TID [facility] Last Admin: 09/20/18 06:34 Dose: 5 mg Multivitamins/Minerals (Infuvite Adult -) 10 ml IV DAILY@1530 [facility] Last Admin: 09/19/18 17:58 Dose: 10 ml Pantoprazole Sodium (Protonix Iv) 40 mg IVPB DAILY [facility] Last Admin: 09/20/18 09:42 Dose: 40 mg Tbo-Filgrastim (Granix -) 480 mcg SQ DAILY [facility] Last Admin: 09/19/18 14:00 Dose: 480 mcg Vancomycin HCl (Vancomycin Oral Solution) 125 mg PO Q6HPO [facility] Last Admin: 09/20/18 11:19 Dose: 125 mg - Objective Vital Signs: Vital Signs Temperature 99 F 09/20/18 07:35 Pulse Rate 92 H 09/20/18 07:35 Respiratory Rate 20 09/20/18 07:35 Blood Pressure 140/80 09/20/18 07:35 O2 Sat by Pulse Oximetry (%) 99 09/19/18 21:00 Constitutional: Yes: No Distress Eyes: Yes: Conjunctiva Clear HENT: Yes: Thrush Cardiovascular: Yes: Regular Rate and Rhythm, S1, S2 Respiratory: Yes: CTA Bilaterally Gastrointestinal: Yes: Normal Bowel Sounds, Soft. No: Tenderness Edema: Yes Labs: CBC, BMP 09/20/18 06:21 09/20/18 06:21 INR, PTT INR 1.28 (0.83-1.09) H 09/14/18 10:55 Fibrinogen 442.0 mg/dL (238-498) 09/15/18 15:00 Assessment/Plan MRSA BACTEREMIA/ SEPSIS PROBABLE INFECTED PORT S/P REMOVAL PANCYTOPENIA THROMBOCYTOPENIA + C DIFF AZOTEMIA IMPROVED METASTATIC CA S/P CHEMO CHECK REPEAT BC CONTINUE DAPTOMYCIN/ CEFTAROLINE CONTINUE FLUCONAZOLE PROGNOSIS GUARDED
[2018-09-20 11:37] LABS: ANISOCYTOSIS 1+; MACROCYTOSIS 0; PLATELET ESTIMATE DECREASED
--- NOTE | 2018-09-20 11:54 | PN ---
Progress Note, Physician Chief Complaint: Events noted Not in distress History of Present Illness: Patient was seen and examined. Awake and alert. Chart was reviewed Generalized weakness Denies chest pain, SOB or palpitation - Current Medication List Current Medications: Active Medications Acetaminophen (Ofirmev Injection -) 1,000 mg IVPB Q6H PRN PRN Reason: FEVER Last Admin: 09/16/18 18:37 Dose: 1,000 mg Daptomycin 700 mg/ Sodium (Chloride) 50 mls @ 100 mls/hr IVPB DAILY [facility]; Protocol Last Admin: 09/20/18 11:13 Dose: 100 mls/hr Ceftaroline Fosamil 600 mg/ (Dextrose) 100 mls @ 200 mls/hr IVPB TID [facility]; Protocol Last Admin: 09/20/18 05:53 Dose: 200 mls/hr Fluconazole (Diflucan 100 Mg/Ns Premixed Ivpb -) 50 mls @ 50 mls/hr IVPB DAILY [facility] Last Admin: 09/20/18 10:38 Dose: 50 mls/hr Amino Acids (Clinimix -) 1,000 mls @ 84 mls/hr IV Q12H [facility] Last Admin: 09/20/18 04:40 Dose: 84 mls/hr Potassium Chloride (Potassium Chloride 10 Meq Premix Ivpb -) 10 meq in 100 mls @ 100 mls/hr IVPB Q60M [facility] Stop: 09/20/18 12:44 Last Admin: 09/20/18 11:19 Dose: 100 mls/hr Immune Globulin (Privigen 10% Vial) 50 gm IVPB Q24H [facility] Stop: 09/20/18 19:01 Last Admin: 09/19/18 20:43 Dose: 50 gm Lidocaine/Aluminum/Magnesium/Simeth (Magic Mouthwash *Sjr Formula* -) 5 ml MM Q6HPO PRN PRN Reason: ORAL PAIN/MOUTH SORES Last Admin: 09/20/18 10:39 Dose: 5 ml Metoprolol Tartrate (Lopressor Injection -) 5 mg IVPB TID [facility] Last Admin: 09/20/18 06:34 Dose: 5 mg Multivitamins/Minerals (Infuvite Adult -) 10 ml IV DAILY@1530 [facility] Last Admin: 09/19/18 17:58 Dose: 10 ml Pantoprazole Sodium (Protonix Iv) 40 mg IVPB DAILY [facility] Last Admin: 09/20/18 09:42 Dose: 40 mg Tbo-Filgrastim (Granix -) 480 mcg SQ DAILY [facility] Last Admin: 09/19/18 14:00 Dose: 480 mcg Vancomycin HCl (Vancomycin Oral Solution) 125 mg PO Q6HPO [facility] Last Admin: 09/20/18 11:19 Dose: 125 mg - Objective Vital Signs: Vital Signs Temperature 99 F 09/20/18 07:35 Pulse Rate 92 H 09/20/18 07:35 Respiratory Rate 20 09/20/18 07:35 Blood Pressure 140/80 09/20/18 07:35 O2 Sat by Pulse Oximetry (%) 99 09/19/18 21:00 Eyes: Yes: PERRL HENT: Yes: Atraumatic Neck: Yes: Supple Cardiovascular: Yes: Regular Rate and Rhythm, S1, S2 Respiratory: Yes: CTA Bilaterally Gastrointestinal: Yes: Normal Bowel Sounds, Soft. No: Tenderness Edema: No Labs: CBC, BMP 09/20/18 06:21 09/20/18 06:21 Problem List - Problems (1) Atrial fibrillation Code(s): I48.91 - UNSPECIFIED ATRIAL FIBRILLATION Qualifiers: Atrial fibrillation type: paroxysmal Qualified Code(s): I48.0 - Paroxysmal atrial fibrillation (2) History of colon cancer Code(s): Z85.038 - PERSONAL HISTORY OF MALIGNANT NEOPLASM OF LARGE INTESTINE (3) Leukopenia Code(s): D72.819 - DECREASED WHITE BLOOD CELL COUNT, UNSPECIFIED Qualifiers: Leukopenia type: unspecified Qualified Code(s): D72.819 - Decreased white blood cell count, unspecified (4) MRSA (methicillin resistant staph aureus) culture positive Code(s): Z22.322 - CARRIER OR SUSPECTED CARRIER OF METHICILLIN RESIS STAPH (5) Multiple myeloma Code(s): C90.00 - MULTIPLE MYELOMA NOT HAVING ACHIEVED REMISSION Qualifiers: Multiple myeloma remission status: unspecified Qualified Code(s): C90.00 - Multiple myeloma not having achieved remission (6) Neutropenic sepsis Code(s): A41.9 - SEPSIS, UNSPECIFIED ORGANISM; D70.9 - NEUTROPENIA, UNSPECIFIED (7) Anemia Code(s): D64.9 - ANEMIA, UNSPECIFIED Qualifiers: Anemia type: unspecified type Qualified Code(s): D64.9 - Anemia, unspecified (8) C. difficile diarrhea Code(s): A04.72 - ENTEROCOLITIS D/T CLOSTRIDIUM DIFFICILE, NOT SPCF RECUR (9) CAD (coronary artery disease) Code(s): I25.10 - ATHSCL HEART DISEASE OF [place] CORONARY ARTERY W/O ANG PCTRS Qualifiers: Coronary Disease-Associated Artery/Lesion type: lummi artery [place] vs. 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 Diabetes mellitus complication status: without complication Qualified Code(s): E11.9 - Type 2 diabetes mellitus without complications (12) Diastolic dysfunction Code(s): I51.9 - HEART DISEASE, UNSPECIFIED (13) HTN (hypertension) Code(s): I10 - ESSENTIAL (PRIMARY) HYPERTENSION Qualifiers: Hypertension type: essential hypertension Qualified Code(s): I10 - Essential (primary) hypertension (14) Hypercholesterolemia Code(s): E78.00 - PURE HYPERCHOLESTEROLEMIA, UNSPECIFIED (15) Schatzki's ring of distal esophagus Code(s): K22.2 - ESOPHAGEAL OBSTRUCTION (16) Thrombocytopenia Code(s): D69.6 - THROMBOCYTOPENIA, UNSPECIFIED (17) Colon cancer Code(s): C18.9 - MALIGNANT NEOPLASM OF COLON, UNSPECIFIED Assessment/Plan 1. Persistent MRSA bacteremia post port removal - line sepsis vs ? endocarditis 2. Pancytopenia, history of multiple myeloma post stem cell transplant 3. C. Diff antigen with diarrhea 4. Metastatic colon cancer with right lobe of liver metastasis (unresectable at this point due to fatty liver) 5. 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 CAD, angina pectoris 7. Diastolic dysfunction 8. Paroxysmal atrial fibrillation currently in sinus rhythm [id number] score of 3 9. Hypertension 10. DM 11. Hypercholesterolemia PLAN: 1. Not ideal candidate for RANDY given thrombocytopenia placing him at risk for bleed, CIDP requiring IVIG with dysphagia placing him at risk for periprocedural aspiration, in addition, he is not a candidate for valve surgery even if endocarditis/vegetations were confirmed given multiple co-morbidities 2. Continue antibiotic coverage 3. IV Lopressor for rate-control 4. IVIG and Diflucan for dysphagia Further plans are to follow Dmitri Ngo MD
--- NOTE | 2018-09-20 12:28 | PN ---
Progress Note, [employer] - Note Progress Note: Selected Entries 09/20/18 09/20/18 07:35 11:00 Temperature 99 F 98.3 F Laboratory Tests 09/18/18 09/19/18 09/20/18 06:00 06:16 06:21 WBC 1.6 L* 2.2 L 3.1 L Awake, verbal. Pt still unable to tolerate any food or liquid by mouth, except for 5 ml liquid medication. Persistent hypersensitivity of swallowing mechanism, suspected at esoph level. Oral candidiasis. Possibly esophageal as well, being treated with IV diflucan. IVIG and Diflucan both provided at this time Clinimix re-started d/c magic mouth wash if not beneficial? Pending Palliative care consult.
--- NOTE | 2018-09-20 13:15 | PN ---
Physical Exam: SUBJECTIVE: Patient seen and examined, feeling good today. Denies pain, fever, chills, weakness. OBJECTIVE: Vital Signs Period Temp Pulse Resp BP Sys/Max Pulse Ox Last 24 Hr 97.8 F-99 F 80-96 18-20 112-140/66-90 99 GENERAL: The patient is awake, alert, and fully oriented, in no acute distress, pale, slightly lethargic. HEAD: Normal with no signs of trauma. EYES: left eye pupil dilated, sluggish, extraocular movements intact, left eyelid with mild erythema ENT: moist mucous membranes, oropharynx; thrush NECK: supple no adenopathy LUNGS: Rhonchi on right side, diminished bilaterally HEART: Regular rate and rhythm, S1, S2 ABDOMEN: Obese, soft, nontender, nondistended, normoactive bowel sounds, NEUROLOGICAL: Normal speech, gait not observed. PSYCH: Normal mood, normal affect. SKIN: Warm, dry Laboratory Results - last 24 hr 09/14/18 09/19/18 09/19/18 09:50 06:16 16:35 WBC 2.6 L RBC 3.41 L Hgb 9.6 L Hct 29.2 L MCV 85.6 MCH 28.0 MCHC 32.7 RDW 17.3 H Plt Count 20 L* 19 L* MPV 11.1 D 8.9 D Absolute Neuts (auto) Neutrophils % Neutrophils % (Manual) Band Neutrophils % Lymphocytes % Lymphocytes % (Manual) Monocytes % Monocytes % (Manual) Eosinophils % Eosinophils % (Manual) Basophils % Basophils % (Manual) Myelocytes % (Man) Promyelocytes % (Man) Blast Cells % (Manual) Nucleated RBC % Metamyelocytes Hypochromia Platelet Estimate Platelet Comment No clumping noted Polychromasia Poikilocytosis Anisocytosis Microcytosis Macrocytosis Fragmented RBCs Sodium Potassium Chloride Carbon Dioxide Anion Gap BUN Creatinine Est GFR (CKD-EPI)AfAm Est GFR (CKD-EPI)NonAf Random Glucose Calcium Total Bilirubin AST ALT Alkaline Phosphatase Total Protein Albumin Blood Type O POSITIVE Antibody Screen Negative Crossmatch See Detail 09/20/18 09/20/18 09/20/18 06:21 06:21 09:27 WBC 3.1 L RBC 3.34 L Hgb 9.4 L Hct 28.4 L MCV 85.2 MCH 28.1 MCHC 33.0 RDW 17.8 H Plt Count 14 L* D MPV 8.1 Absolute Neuts (auto) 2.2 Neutrophils % 70.3 D Neutrophils % (Manual) 61.5 D Band Neutrophils % 2.1 Lymphocytes % 21.2 D Lymphocytes % (Manual) 13.5 D Monocytes % 5.8 Monocytes % (Manual) 16 H Eosinophils % 2.1 Eosinophils % (Manual) 3.1 Basophils % 0.6 Basophils % (Manual) 0.0 Myelocytes % (Man) 0 Promyelocytes % (Man) 0 Blast Cells % (Manual) 0 Nucleated RBC % 0 Metamyelocytes 0 D Hypochromia 0 Platelet Estimate Decreased Platelet Comment Polychromasia 1+ Poikilocytosis 1+ Anisocytosis 1+ Microcytosis 1+ Macrocytosis 0 Fragmented RBCs 1+ Sodium 134 L Potassium 2.7 L* Chloride 105 Carbon Dioxide 19 L Anion Gap 9 BUN 15 Creatinine 0.9 Est GFR (CKD-EPI)AfAm 98.55 Est GFR (CKD-EPI)NonAf 85.03 Random Glucose 155 H Calcium 7.5 L Total Bilirubin 0.6 AST 25 ALT 24 Alkaline Phosphatase 150 H Total Protein 6.9 Albumin 2.1 L Blood Type Cancelled Antibody Screen Cancelled Crossmatch 09/20/18 11:05 WBC RBC Hgb Hct MCV MCH MCHC RDW Plt Count MPV Absolute Neuts (auto) Neutrophils % Neutrophils % (Manual) Band Neutrophils % Lymphocytes % Lymphocytes % (Manual) Monocytes % Monocytes % (Manual) Eosinophils % Eosinophils % (Manual) Basophils % Basophils % (Manual) Myelocytes % (Man) Promyelocytes % (Man) Blast Cells % (Manual) Nucleated RBC % Metamyelocytes Hypochromia Platelet Estimate Platelet Comment Polychromasia Poikilocytosis Anisocytosis Microcytosis Macrocytosis Fragmented RBCs Sodium Potassium Chloride Carbon Dioxide Anion Gap BUN Creatinine Est GFR (CKD-EPI)AfAm Est GFR (CKD-EPI)NonAf Random Glucose Calcium Total Bilirubin AST ALT Alkaline Phosphatase Total Protein Albumin Blood Type O POSITIVE Antibody Screen Negative Crossmatch Active Medications Generic Name Dose Route Start Last Admin Trade Name Freq PRN Reason Stop Dose Admin Acetaminophen 1,000 mg 09/16/18 10:10 09/16/18 18:37 Ofirmev Injection - IVPB 1,000 mg Q6H PRN Administration FEVER Daptomycin 700 mg/ Sodium 50 mls @ 100 mls/hr 09/15/18 16:30 09/20/18 11:13 Chloride IVPB 100 mls/hr DAILY JAMIE Administration Protocol Ceftaroline Fosamil 600 mg/ 100 mls @ 200 mls/hr 09/17/18 14:00 09/20/18 05: 53 Dextrose IVPB 200 mls/hr TID JMAIE Administration Protocol Fluconazole 50 mls @ 50 mls/hr 09/18/18 12:30 09/20/18 10:38 Diflucan 100 Mg/Ns Premixed Ivpb - IVPB 50 mls/hr DAILY JAMIE Administration Amino Acids 1,000 mls @ 84 mls/hr 09/19/18 14:00 09/20/18 04:40 Clinimix - IV 84 mls/hr Q12H JAMIE Administration Immune Globulin 50 gm 09/19/18 19:00 09/19/18 20:43 Privigen 10% Vial IVPB 09/20/18 19:01 50 gm Q24H JAMIE Administration Lidocaine/Aluminum/Magnesium/Simeth 5 ml 09/16/18 11:07 09/20/18 10:39 Magic Mouthwash *Sjr Formula* - MM 5 ml Q6HPO PRN Administration ORAL PAIN/MOUTH SORES Metoprolol Tartrate 5 mg 09/18/18 14:00 09/20/18 06:34 Lopressor Injection - IVPB 5 mg TID JAMIE Administration Multivitamins/Minerals 10 ml 09/19/18 15:30 09/19/18 17:58 Infuvite Adult - IV 10 ml DAILY@1530 JAMIE Administration Pantoprazole Sodium 40 mg 09/17/18 10:00 09/20/18 09:42 Protonix Iv IVPB 40 mg DAILY JAMIE Administration Tbo-Filgrastim 480 mcg 09/16/18 10:00 09/19/18 14:00 Granix - SQ 480 mcg DAILY JAMIE Administration Vancomycin HCl 125 mg 09/16/18 18:00 09/20/18 11:19 Vancomycin Oral Solution PO 125 mg Q6HPO JAMIE Administration ASSESSMENT/PLAN: This is a 72 yo M with PMH of MM, colon CA s/p resection w liver mets on FOLFIRI 09/06/18, HTN, AF on eliquis and DM, who presented due to cough, malaise , and fever, abdominal pain, and s/p fall, treated for bacteremia and UTI Ct a/p w cont: R hepatic dome mass Assessment: sepsis MRSA bacteremia C diff colitis thrush leukopenia due to sepsis and possibly folfiri thrombocytopenia due to sepsis anemia due to sepsis Plan: -neupogen ppx -platelet transfusions -further recs per ID-(Vancomycin, Daptomycin and Ceftaroline) and Neuro-gamma globulin for dysphagia -cont Fluconazole for thrush Problem List - Problems (1) Atrial fibrillation Code(s): I48.91 - UNSPECIFIED ATRIAL FIBRILLATION Qualifiers: Atrial fibrillation type: paroxysmal Qualified Code(s): I48.0 - Paroxysmal atrial fibrillation (2) Dysphagia, oropharyngeal phase Code(s): R13.12 - DYSPHAGIA, OROPHARYNGEAL PHASE (3) Leukopenia Code(s): D72.819 - DECREASED WHITE BLOOD CELL COUNT, UNSPECIFIED Qualifiers: Leukopenia type: unspecified Qualified Code(s): D72.819 - Decreased white blood cell count, unspecified (4) MRSA (methicillin resistant staph aureus) culture positive Code(s): Z22.322 - CARRIER OR SUSPECTED CARRIER OF METHICILLIN RESIS STAPH (5) Multiple myeloma Code(s): C90.00 - MULTIPLE MYELOMA NOT HAVING ACHIEVED REMISSION Qualifiers: Multiple myeloma remission status: unspecified Qualified Code(s): C90.00 - Multiple myeloma not having achieved remission (6) Neutropenic sepsis Code(s): A41.9 - SEPSIS, UNSPECIFIED ORGANISM; D70.9 - NEUTROPENIA, UNSPECIFIED (7) Anemia Code(s): D64.9 - ANEMIA, UNSPECIFIED Qualifiers: Anemia type: unspecified type Qualified Code(s): D64.9 - Anemia, unspecified (8) C. difficile diarrhea Code(s): A04.72 - ENTEROCOLITIS D/T CLOSTRIDIUM DIFFICILE, NOT SPCF RECUR (9) CAD (coronary artery disease) Code(s): I25.10 - ATHSCL HEART DISEASE OF [place] CORONARY ARTERY W/O ANG PCTRS Qualifiers: Coronary Disease-Associated Artery/Lesion type: [place] artery [place] vs. transplanted heart: [place] heart Associated angina: without angina Qualified Code(s): I25.10 - Atherosclerotic heart disease of [place] coronary artery without angina pectoris (10) CIDP (chronic inflammatory demyelinating polyneuropathy) Code(s): G61.81 - CHRONIC INFLAMMATORY DEMYELINATING POLYNEURITIS (11) Diabetes mellitus Code(s): E11.9 - TYPE 2 DIABETES MELLITUS WITHOUT COMPLICATIONS Qualifiers: Diabetes mellitus type: type 2 Diabetes mellitus retirement insulin use: without retirement use Diabetes mellitus complication status: without complication Qualified Code(s): E11.9 - Type 2 diabetes mellitus without complications (12) Dysphagia Code(s): R13.10 - DYSPHAGIA, UNSPECIFIED Qualifiers: Dysphagia type: oropharyngeal phase Qualified Code(s): R13.12 - Dysphagia, oropharyngeal phase (13) HTN (hypertension) Code(s): I10 - ESSENTIAL (PRIMARY) HYPERTENSION Qualifiers: Hypertension type: essential hypertension Qualified Code(s): I10 - Essential (primary) hypertension Visit type - Emergency Visit Emergency Visit: Yes ED Registration Date: 09/12/18 Care time: The patient presented to the Emergency Department on the above date and was hospitalized for further evaluation of their emergent condition. - New Patient This patient is new to me today: Yes Date on this admission: 09/20/18 - Critical Care Critical Care patient: No - Discharge Referral Referred to [facility] Med [facility].C[facility] No
[2018-09-20] MEDS: TBO-FILGRASTIM 480 MCG/0.8 ML DISP.SYRIN SQ SCH (13:59)
[2018-09-20] MEDS: MULTIVIT INJ. ADULT COMBO WITH VIT K 1 COMBO 10 ML VIAL IV SCH (14:48)
--- NOTE | 2018-09-20 16:10 | PN ---
Progress Note (short form) - Note Progress Note: Patient seen and examined Still with dysphagia and inability to swallow Diarrhea improved Temp down Last Vital Signs Temp Pulse Resp BP Pulse Ox 98.3 F 93 H 18 135/78 99 09/20/18 11:00 09/20/18 14:48 09/20/18 11:00 09/20/18 14:48 09/19/18 21:00 HEENT: anisocoria Oropharynx: thrush, No mucositis Neck: Supple Cor: RSR, No murmurs, No gallops Lungs:rales RLL Abd: Soft, Normal bowel sounds, No organomegaly Ext:No significant edema Skin: numerous ecchymoses CBC, BMP 09/20/18 06:21 09/20/18 06:21 Current Medications Generic Name Dose Route Start Last Admin Trade Name Freq PRN Reason Stop Dose Admin Acetaminophen 1,000 mg 09/16/18 10:10 09/16/18 18:37 Ofirmev Injection - IVPB 1,000 mg Q6H PRN Administration FEVER Daptomycin 700 mg/ Sodium 50 mls @ 100 mls/hr 09/15/18 16:30 09/20/18 11:13 Chloride IVPB 100 mls/hr DAILY JAMIE Administration Protocol Ceftaroline Fosamil 600 mg/ 100 mls @ 200 mls/hr 09/17/18 14:00 09/20/18 13: 59 Dextrose IVPB 200 mls/hr TID JAMIE Administration Protocol Fluconazole 50 mls @ 50 mls/hr 09/18/18 12:30 09/20/18 10:38 Diflucan 100 Mg/Ns Premixed Ivpb - IVPB 50 mls/hr DAILY JAMIE Administration Potassium Chloride 40 meq/ 1,020 mls @ 84 mls/hr 09/20/18 14:58 Amino Acids IV Q12H JAMIE Immune Globulin 50 gm 09/19/18 19:00 09/19/18 20:43 Privigen 10% Vial IVPB 09/20/18 19:01 50 gm Q24H JAMIE Administration Lidocaine/Aluminum/Magnesium/Simeth 5 ml 09/16/18 11:07 09/20/18 10:39 Magic Mouthwash *Sjr Formula* - MM 5 ml Q6HPO PRN Administration ORAL PAIN/MOUTH SORES Metoprolol Tartrate 5 mg 09/18/18 14:00 09/20/18 14:48 Lopressor Injection - IVPB 5 mg TID JAMIE Administration Multivitamins/Minerals 10 ml 09/19/18 15:30 09/20/18 14:48 Infuvite Adult - IV 10 ml DAILY@1530 JAMIE Administration Pantoprazole Sodium 40 mg 09/17/18 10:00 09/20/18 09:42 Protonix Iv IVPB 40 mg DAILY JAMIE Administration Tbo-Filgrastim 480 mcg 09/16/18 10:00 09/20/18 13:59 Granix - SQ 480 mcg DAILY JAMIE Administration Vancomycin HCl 125 mg 09/16/18 18:00 09/20/18 11:19 Vancomycin Oral Solution PO 125 mg Q6HPO JAMIE Administration Impression: MRSA sepsis C. difficile pancytopenia colon ca - s/p liver ablation Chemotherpy - FOLFIRI myeloma - s/p transplant Dysphagia Plan Granix Gamma globulin Antibiotics per ID nutritional supplementation .
[2018-09-20] MEDS: AMINO ACIDS IV SCH (18:00)
[2018-09-20] MEDS: POTASSIUM CHLORIDE IV SCH (18:00)
[2018-09-20] MEDS: METOCLOPRAMIDE HCL INJECTION 10 MG/2 ML VIAL IVPUSH PRN (18:52)
--- NOTE | 2018-09-20 19:22 | PN.GI ---
GI Progress Note Subjective: GI NOte: Receiving IVIG but dysphagia persists. Diarrhea is subsiding as the WBC is increasing - Objective Vital Signs: Vital Signs Temperature 98 F 09/20/18 16:35 Pulse Rate 68 09/20/18 16:35 Respiratory Rate 18 09/20/18 16:35 Blood Pressure 122/80 09/20/18 16:35 O2 Sat by Pulse Oximetry (%) 99 09/20/18 09:00 Constitutional: Anxious ...Auscultate: Yes: Normoactive Bowel Sounds ...Palpate: Yes: Soft, Other (nontender) Labs: CBC, BMP 09/20/18 06:21 09/20/18 06:21 INR, PTT INR 1.28 (0.83-1.09) H 09/14/18 10:55 Fibrinogen 442.0 mg/dL (238-498) 09/15/18 15:00 Assessment/Plan Impression; -Oropharyngeal dysphagia- receiving IVIG. - Diarrhea is due to mucositis associated with neutropenia rather than C diff - Metastatic colon cancer Plan: -- Continue IVIG -- Stool for WBCs pending Problem List - Problems (1) Dysphagia, oropharyngeal phase Code(s): R13.12 - DYSPHAGIA, OROPHARYNGEAL PHASE (2) Diarrhea Code(s): R19.7 - DIARRHEA, UNSPECIFIED (3) MRSA (methicillin resistant staph aureus) culture positive Code(s): Z22.322 - CARRIER OR SUSPECTED CARRIER OF METHICILLIN RESIS STAPH (4) Atrial fibrillation Code(s): I48.91 - UNSPECIFIED ATRIAL FIBRILLATION Qualifiers: Atrial fibrillation type: paroxysmal Qualified Code(s): I48.0 - Paroxysmal atrial fibrillation (5) Multiple myeloma Code(s): C90.00 - MULTIPLE MYELOMA NOT HAVING ACHIEVED REMISSION Qualifiers: Multiple myeloma remission status: unspecified Qualified Code(s): C90.00 - Multiple myeloma not having achieved remission (6) Neutropenic sepsis Code(s): A41.9 - SEPSIS, UNSPECIFIED ORGANISM; D70.9 - NEUTROPENIA, UNSPECIFIED (7) Sepsis Code(s): A41.9 - SEPSIS, UNSPECIFIED ORGANISM Qualifiers: Sepsis type: sepsis due to unspecified organism Qualified Code(s): A41.9 - Sepsis, unspecified organism (8) Anemia Code(s): D64.9 - ANEMIA, UNSPECIFIED Qualifiers: Anemia type: unspecified type Qualified Code(s): D64.9 - Anemia, unspecified (9) C. difficile diarrhea Code(s): A04.72 - ENTEROCOLITIS D/T CLOSTRIDIUM DIFFICILE, NOT SPCF RECUR (10) Diabetes mellitus Code(s): E11.9 - TYPE 2 DIABETES MELLITUS WITHOUT COMPLICATIONS Qualifiers: Diabetes mellitus type: type 2 Diabetes mellitus chcf insulin use: without buttermaker use Diabetes mellitus complication status: without complication Qualified Code(s): E11.9 - Type 2 diabetes mellitus without complications (11) Family history of colon cancer Code(s): Z80.0 - FAMILY HISTORY OF MALIGNANT NEOPLASM OF DIGESTIVE ORGANS (12) HTN (hypertension) Code(s): I10 - ESSENTIAL (PRIMARY) HYPERTENSION Qualifiers: Hypertension type: essential hypertension Qualified Code(s): I10 - Essential (primary) hypertension (13) Hypercholesterolemia Code(s): E78.00 - PURE HYPERCHOLESTEROLEMIA, UNSPECIFIED (14) Schatzki's ring of distal esophagus Code(s): K22.2 - ESOPHAGEAL OBSTRUCTION (15) Status post insertion of percutaneous endoscopic gastrostomy (PEG) tube Code(s): Z93.1 - GASTROSTOMY STATUS (16) Colon cancer Code(s): C18.9 - MALIGNANT NEOPLASM OF COLON, UNSPECIFIED (17) CIDP (chronic inflammatory demyelinating polyneuropathy) Code(s): G61.81 - CHRONIC INFLAMMATORY DEMYELINATING POLYNEURITIS
[2018-09-21] MEDS: METOPROLOL TARTRATE 5 MG/5 ML VIAL IVPB SCH ×4 (00:01→23:56)
[2018-09-21] MEDS ORDERED: IMMUNE GLOBULIN (IgG) 20 GM VIAL (PRIVIGEN) IVPB SCH (02:15)
[2018-09-21] MEDS: VANCOMYCIN 250 MG/5 ML ORAL SOLUTION PO SCH ×4 (06:58→19:02)
[2018-09-21] MEDS: POTASSIUM CHLORIDE IV SCH ×3 (07:03→23:57)
[2018-09-21] MEDS: AMINO ACIDS IV SCH ×3 (07:03→23:57)
[2018-09-21 07:25] LABS: BASO % 0.7 % (0-2.0); EOS % 0.8 % (0-4.5); HEMOGLOBIN 9.2 GM/dL (11.7-16.9); MCH 28.2 pg (25.7-33.7); MEAN CELL VOLUME 85.5 fl (80-96); MEAN PLT VOLUME 9.6 fl (7.5-11.1); MONO % 10.2 % (3.8-10.2); NEUT % 70.3 % (42.8-82.8); RBC 3.28 M/mm3 (4.00-5.60); RDW 17.5 % (11.9-15.9); WHITE BLOOD COUNT 4.7 K/mm3 (4.0-10.0)
[2018-09-21 07:50] LABS: ALBUMIN 2.2 g/dl (3.4-5.0); BILIRUBIN,TOTAL 0.5 mg/dL (0.2-1); CALCIUM 8.2 mg/dL (8.5-10.1); CREATININE 0.9 mg/dL (0.55-1.3); MAGNESIUM 2.1 mg/dL (1.8-2.4); POTASSIUM 3.2 mmol/L (3.5-5.1)
[2018-09-21 08:08] LABS: INR 1.08 (0.83-1.09); PROTHROMBIN TIME (PATIENT) 12.7 SEC (9.7-13.0)
[2018-09-21] MEDS: IMMUNE GLOBULIN (IgG) 20 GM VIAL (PRIVIGEN) IVPB SCH (08:32)
[2018-09-21] MEDS ORDERED: PT OWN MED DRAWER 7, Y5N ONE ×3 (08:51→22:23)
[2018-09-21] MEDS: CEFTAROLINE FOSAMIL ACETATE 600 MG in DEXTROSE 5%-WATER - 100 ML IVPB SCH ×3 (09:45→22:29)
[2018-09-21] MEDS: PANTOPRAZOLE SODIUM 40 MG VIAL IVPUSH SCH (10:52)
[2018-09-21] MEDS: PANTOPRAZOLE SODIUM 40 MG VIAL IVPB SCH (10:53)
[2018-09-21] MEDS: TBO-FILGRASTIM 480 MCG/0.8 ML DISP.SYRIN SQ SCH (11:48)
[2018-09-21] MEDS: KCL 10 MEQ IVPB 10 MEQ/100 ML INFUS.BAG IVPB SCH ×2 (11:48→15:13)
--- NOTE | 2018-09-21 12:06 | PN ---
Progress Note (short form) - Note Progress Note: feels weak abd pain /soreness decreased appetite nausea+ diarrhea + Vital Signs - 24 hr 09/20/18 09/21/18 09/21/18 22:49 00:01 06:56 Temperature 99 F Pulse Rate 70 90 84 Respiratory 18 Rate Blood Pressure 130/80 130/70 134/80 09/21/18 09/21/18 09/21/18 07:05 15:26 16:35 Temperature 97.4 F L 98.5 F Pulse Rate 84 98 H 98 H Respiratory 20 18 Rate Blood Pressure 134/80 120/79 120/79 Current Medications Generic Name Dose Route Start Last Admin Trade Name Freq PRN Reason Stop Dose Admin Acetaminophen 1,000 mg 09/16/18 10:10 09/16/18 18:37 Ofirmev Injection - IVPB 1,000 mg Q6H PRN Administration FEVER Emollient Ointment 1 applic 09/21/18 12:00 09/21/18 14:22 Aquaphor - TP 1 applic BID JAMIE Administration Daptomycin 700 mg/ Sodium 50 mls @ 100 mls/hr 09/15/18 16:30 09/21/18 13:03 Chloride IVPB 100 mls/hr DAILY JAMIE Administration Protocol Ceftaroline Fosamil 600 mg/ 100 mls @ 200 mls/hr 09/17/18 14:00 09/21/18 15: 13 Dextrose IVPB 200 mls/hr TID JAMIE Administration Protocol Fluconazole 50 mls @ 50 mls/hr 09/18/18 12:30 09/21/18 14:22 Diflucan 100 Mg/Ns Premixed Ivpb - IVPB 50 mls/hr DAILY JAMIE Administration Potassium Chloride 40 meq/ 1,020 mls @ 84 mls/hr 09/20/18 14:58 09/21/18 15: 13 Amino Acids IV Not Given Q12H JAMIE Lidocaine/Aluminum/Magnesium/Simeth 5 ml 09/16/18 11:07 09/20/18 10:39 Magic Mouthwash *Sjr Formula* - MM 5 ml Q6HPO PRN Administration ORAL PAIN/MOUTH SORES Metoclopramide HCl 10 mg 09/20/18 18:20 09/20/18 18:52 Reglan Injection - IVPUSH 10 mg Q8H PRN Administration NAUSEA AND/OR VOMITING Metoprolol Tartrate 5 mg 09/18/18 14:00 09/21/18 16:35 Lopressor Injection - IVPB 5 mg TID JAMIE Administration Multivitamins/Minerals 10 ml 09/19/18 15:30 09/20/18 14:48 Infuvite Adult - IV 10 ml DAILY@1530 JAMIE Administration Pantoprazole Sodium 40 mg 09/21/18 10:15 09/21/18 10:52 Protonix Iv IVPUSH 40 mg DAILY JAMIE Administration Tbo-Filgrastim 480 mcg 09/16/18 10:00 09/21/18 11:48 Granix - SQ 480 mcg DAILY JAMIE Administration Vancomycin HCl 125 mg 09/16/18 18:00 09/21/18 12:26 Vancomycin Oral Solution PO 125 mg Q6HPO JAMIE Administration S1 S2 RRR Pale Lungs decreased breath sounds Abd- soft,tender all areas trace edema IV antibiotics -- cultures repeat negative Cardiology evaluation for RANDY -- PT is high risk candidate continue with meds IV fluids-->clinimix -- replace lytes pt unable to drink fluids tried water and pt immediately started gagging Dysphagia not improving with IVIG eliquis on hold prognosis poor palliative care Problem List - Problems (1) Neutropenic sepsis Code(s): A41.9 - SEPSIS, UNSPECIFIED ORGANISM; D70.9 - NEUTROPENIA, UNSPECIFIED (2) Atrial fibrillation Code(s): I48.91 - UNSPECIFIED ATRIAL FIBRILLATION Qualifiers: Atrial fibrillation type: paroxysmal Qualified Code(s): I48.0 - Paroxysmal atrial fibrillation (3) History of colon cancer Code(s): Z85.038 - PERSONAL HISTORY OF MALIGNANT NEOPLASM OF LARGE INTESTINE (4) Multiple myeloma Code(s): C90.00 - MULTIPLE MYELOMA NOT HAVING ACHIEVED REMISSION Qualifiers: Multiple myeloma remission status: unspecified Qualified Code(s): C90.00 - Multiple myeloma not having achieved remission (5) Sepsis Code(s): A41.9 - SEPSIS, UNSPECIFIED ORGANISM Qualifiers: Sepsis type: sepsis due to unspecified organism Qualified Code(s): A41.9 - Sepsis, unspecified organism (6) Anemia Code(s): D64.9 - ANEMIA, UNSPECIFIED Qualifiers: Anemia type: unspecified type Qualified Code(s): D64.9 - Anemia, unspecified
[2018-09-21 12:15] LABS: ANISOCYTOSIS 0; MACROCYTOSIS 0; PLATELET ESTIMATE DECREASED; TEAR DROP CELLS 0
--- NOTE | 2018-09-21 12:59 | PN ---
Progress Note, LANDSCAPER - Note Progress Note: Selected Entries 09/20/18 09/20/18 07:35 11:00 Temperature 99 F 98.3 F Laboratory Tests 09/18/18 09/19/18 09/20/18 06:00 06:16 06:21 WBC 1.6 L* 2.2 L 3.1 L Selected Entries 09/20/18 09/20/18 09/20/18 07:35 11:00 16:35 Supper Temperature 99 F 98.3 F 98 F 09/20/18 09/20/18 09/21/18 18:30 22:49 07:05 Supper 0 Temperature 99 F 97.4 F L Laboratory Tests 09/21/18 06:38 WBC 4.7 Awake, verbal. Pt still unable to tolerate any food or liquid by mouth, except for 5 ml liquid medication. Persistent hypersensitivity of swallowing mechanism, suspected at esoph level. Oral candidiasis. Possibly esophageal as well, being treated with IV diflucan. IVIG and Diflucan both provided at this time Clinimix re-started Pt refusing all PO trials, just Vancomycin PO d/c magic mouth wash if not beneficial? Pending Palliative care consult.
[2018-09-21] MEDS: DAPTOMYCIN 700 MG in SODIUM CHLORIDE 50 ML IVPB SCH (13:03)
--- NOTE | 2018-09-21 14:11 | PN ---
Progress Note, Physician History of Present Illness: AWAKE, ALERT IN BED STILL WITH DYSPHAGIA, INABILITY TO SWALLOW EVEN LIQUIDS TEMPS REMAIN DOWN AFEBRILE WBC IMPROVED 4.7 PLT IMPROVED REPEAT BC (09/17) NEGATIVE - Current Medication List Current Medications: Active Medications Acetaminophen (Ofirmev Injection -) 1,000 mg IVPB Q6H PRN PRN Reason: FEVER Last Admin: 09/16/18 18:37 Dose: 1,000 mg Emollient Ointment (Aquaphor -) 1 applic TP BID [facility] Daptomycin 700 mg/ Sodium (Chloride) 50 mls @ 100 mls/hr IVPB DAILY [facility]; Protocol Last Admin: 09/21/18 13:03 Dose: 100 mls/hr Ceftaroline Fosamil 600 mg/ (Dextrose) 100 mls @ 200 mls/hr IVPB TID [facility]; Protocol Last Admin: 09/21/18 09:45 Dose: 200 mls/hr Fluconazole (Diflucan 100 Mg/Ns Premixed Ivpb -) 50 mls @ 50 mls/hr IVPB DAILY [facility] Last Admin: 09/20/18 10:38 Dose: 50 mls/hr Potassium Chloride 40 meq/ (Amino Acids) 1,020 mls @ 84 mls/hr IV Q12H [facility] Last Admin: 09/21/18 07:03 Dose: 84 mls/hr Lidocaine/Aluminum/Magnesium/Simeth (Magic Mouthwash *Sjr Formula* -) 5 ml MM Q6HPO PRN PRN Reason: ORAL PAIN/MOUTH SORES Last Admin: 09/20/18 10:39 Dose: 5 ml Metoclopramide HCl (Reglan Injection -) 10 mg IVPUSH Q8H PRN PRN Reason: NAUSEA AND/OR VOMITING Last Admin: 09/20/18 18:52 Dose: 10 mg Metoprolol Tartrate (Lopressor Injection -) 5 mg IVPB TID [facility] Last Admin: 09/21/18 06:56 Dose: 5 mg Multivitamins/Minerals (Infuvite Adult -) 10 ml IV DAILY@1530 [facility] Last Admin: 09/20/18 14:48 Dose: 10 ml Pantoprazole Sodium (Protonix Iv) 40 mg IVPUSH DAILY [facility] Last Admin: 09/21/18 10:52 Dose: 40 mg Tbo-Filgrastim (Granix -) 480 mcg SQ DAILY [facility] Last Admin: 09/21/18 11:48 Dose: 480 mcg Vancomycin HCl (Vancomycin Oral Solution) 125 mg PO Q6HPO [facility] Last Admin: 09/21/18 12:26 Dose: 125 mg - Objective Vital Signs: Vital Signs Temperature 97.4 F L 09/21/18 07:05 Pulse Rate 84 09/21/18 07:05 Respiratory Rate 20 09/21/18 07:05 Blood Pressure 134/80 09/21/18 07:05 O2 Sat by Pulse Oximetry (%) 99 09/20/18 09:00 Constitutional: Yes: No Distress Cardiovascular: Yes: Regular Rate and Rhythm, S1, S2 Respiratory: Yes: CTA Bilaterally Gastrointestinal: Yes: Normal Bowel Sounds, Soft Labs: CBC, BMP 09/21/18 06:38 09/21/18 06:38 INR, PTT INR 1.08 (0.83-1.09) 09/21/18 06:38 Fibrinogen 442.0 mg/dL (238-498) 09/15/18 15:00 Assessment/Plan MRSA BACTEREMIA/ SEPSIS PROBABLE INFECTED PORT S/P REMOVAL PANCYTOPENIA THROMBOCYTOPENIA + C DIFF AZOTEMIA IMPROVED METASTATIC CA S/P CHEMO CONTINUE DAPTOMYCIN/ CEFTAROLINE CONTINUE FLUCONAZOLE PROGNOSIS GUARDED
--- NOTE | 2018-09-21 14:17 | PN ---
Progress Note (short form) - Note Progress Note: NEUROLOGY PROGRESS: Events reviewed and discussed with nursing staff. Consults from speech, ID, hem- onc read and appreciated. Still on IV antibiotics through peripheral line: Vancomycin, daptomycin, ceftaroline and Fluconazole For Jenifer esophagitis. S/P 140 mg IVIG over course of 3 days. Pt reports continued difficulty swallowing because he feels "gagging" sensation and pain in the abdomen. Declines attempts to get OOB to chair or eat meals. WBC 0.7-> 4.7, platelet= 37-> MIO: Cushingoid. Neck supple. Oropharynx with white plaques on tongue NEURO: 97.4. Awake, alert, responsive. OX [facility]. September 19, 2018. [place]. "My birthday month." EOM's full. Preserved tongue JAE's. Gag ok Strong grasps. Strength in arms normal. Ankle dorsiflexion 4-/5 B/L R > L. Cannot discriminate pinch in feet and incorrect proprioception of toes. Impression: Moderate, distal, sensorimotor peripheral neuropathy c/w CIDP Dysphagia- probably NOT on a neurological basis. Suggest: Continue fluconazole for thrush. Please add oral care to regimen. Please begin bedside PT and have Patient OOBed to chair TID for all meals to aide swallow. Thank you very much, Shahriar Monaco MD
[2018-09-21] MEDS: MINERAL OIL/PET HY-PHL TOPICAL OINTMENT 454 GM JAR TP SCH ×2 (14:22→23:57)
[2018-09-21] MEDS: FLUCONAZOLE 100 MG/NS 50 ML IVPB SCH (14:22)
--- NOTE | 2018-09-21 19:41 | PN ---
Progress Note (short form) - Note Progress Note: Patient seen and examined Remains with dysphagia Remains with diarrhes Remains with thrush - somewhat improved Last Vital Signs Temp Pulse Resp BP Pulse Ox 98.5 F 98 H 18 120/79 99 09/21/18 15:26 09/21/18 16:35 09/21/18 15:26 09/21/18 16:35 09/20/18 09:00 HEENT: anisocoria Oropharynx: thrush, No mucositis Cor: RSR, No murmurs, No gallops Lungs: rales bilaterally Abd: Soft, Normal bowel sounds, No organomegaly Ext:No significant edema Skin: No rashes, Integument intact CBC, BMP 09/21/18 06:38 09/21/18 06:38 Current Medications Generic Name Dose Route Start Last Admin Trade Name Freq PRN Reason Stop Dose Admin Acetaminophen 1,000 mg 09/16/18 10:10 09/16/18 18:37 Ofirmev Injection - IVPB 1,000 mg Q6H PRN Administration FEVER Emollient Ointment 1 applic 09/21/18 12:00 09/21/18 14:22 Aquaphor - TP 1 applic BID JAMIE Administration Daptomycin 700 mg/ Sodium 50 mls @ 100 mls/hr 09/15/18 16:30 09/21/18 13:03 Chloride IVPB 100 mls/hr DAILY JAMIE Administration Protocol Ceftaroline Fosamil 600 mg/ 100 mls @ 200 mls/hr 09/17/18 14:00 09/21/18 15: 13 Dextrose IVPB 200 mls/hr TID JAMIE Administration Protocol Fluconazole 50 mls @ 50 mls/hr 09/18/18 12:30 09/21/18 14:22 Diflucan 100 Mg/Ns Premixed Ivpb - IVPB 50 mls/hr DAILY JAMIE Administration Potassium Chloride 40 meq/ 1,020 mls @ 84 mls/hr 09/20/18 14:58 09/21/18 15: 13 Amino Acids IV Not Given Q12H JAMIE Lidocaine/Aluminum/Magnesium/Simeth 5 ml 09/16/18 11:07 09/20/18 10:39 Magic Mouthwash *Sjr Formula* - MM 5 ml Q6HPO PRN Administration ORAL PAIN/MOUTH SORES Metoclopramide HCl 10 mg 09/20/18 18:20 09/20/18 18:52 Reglan Injection - IVPUSH 10 mg Q8H PRN Administration NAUSEA AND/OR VOMITING Metoprolol Tartrate 5 mg 09/18/18 14:00 09/21/18 16:35 Lopressor Injection - IVPB 5 mg TID JAMIE Administration Multivitamins/Minerals 10 ml 09/19/18 15:30 09/20/18 14:48 Infuvite Adult - IV 10 ml DAILY@1530 JAMIE Administration Pantoprazole Sodium 40 mg 09/21/18 10:15 09/21/18 10:52 Protonix Iv IVPUSH 40 mg DAILY JAMIE Administration Tbo-Filgrastim 480 mcg 09/16/18 10:00 09/21/18 11:48 Granix - SQ 480 mcg DAILY JAMIE Administration Vancomycin HCl 125 mg 09/16/18 18:00 09/21/18 19:02 Vancomycin Oral Solution PO 125 mg Q6HPO JAMIE Administration Impr: MRSA sepsis Port infection S/P removal Colon ca S/P chemotherapy Dysphagia Pancytopenia- s/p platelets Recovery of WBC with neupogen Plan: Current therapy with rehab Hold granix Monitor CBC post granix Blood /platelets prn. Ab per ID
[2018-09-21] MEDS: MULTIVIT INJ. ADULT COMBO WITH VIT K 1 COMBO 10 ML VIAL IV SCH (23:57)
[2018-09-22] MEDS: VANCOMYCIN 250 MG/5 ML ORAL SOLUTION PO SCH ×5 (00:45→23:59)
[2018-09-22] MEDS ORDERED: PT OWN MED DRAWER 7, Y5N ONE ×5 (05:56→14:31)
[2018-09-22] MEDS: AMINO ACIDS IV SCH ×3 (06:24→16:42)
[2018-09-22] MEDS: POTASSIUM CHLORIDE IV SCH ×3 (06:24→16:42)
[2018-09-22] MEDS: CEFTAROLINE FOSAMIL ACETATE 600 MG in DEXTROSE 5%-WATER - 100 ML IVPB SCH ×3 (06:30→22:16)
[2018-09-22] MEDS: METOPROLOL TARTRATE 5 MG/5 ML VIAL IVPB SCH ×3 (08:25→21:55)
[2018-09-22] MEDS: MINERAL OIL/PET HY-PHL TOPICAL OINTMENT 454 GM JAR TP SCH ×2 (10:08→22:16)
[2018-09-22] MEDS: PANTOPRAZOLE SODIUM 40 MG VIAL IVPUSH SCH (10:08)
--- NOTE | 2018-09-22 10:47 | PN ---
Progress Note, Physician History of Present Illness: Dysphagia persists despite IVIG and Diflucan, diarrhea recurring. Bld cx 09/17 has cleared c/w line sepsis. - Current Medication List Current Medications: Active Medications Acetaminophen (Ofirmev Injection -) 1,000 mg IVPB Q6H PRN PRN Reason: FEVER Last Admin: 09/16/18 18:37 Dose: 1,000 mg Emollient Ointment (Aquaphor -) 1 applic TP BID [facility] Last Admin: 09/22/18 10:08 Dose: 1 applic Daptomycin 700 mg/ Sodium (Chloride) 50 mls @ 100 mls/hr IVPB DAILY [facility]; Protocol Last Admin: 09/21/18 13:03 Dose: 100 mls/hr Ceftaroline Fosamil 600 mg/ (Dextrose) 100 mls @ 200 mls/hr IVPB TID [facility]; Protocol Last Admin: 09/22/18 06:30 Dose: 200 mls/hr Fluconazole (Diflucan 100 Mg/Ns Premixed Ivpb -) 50 mls @ 50 mls/hr IVPB DAILY [facility] Last Admin: 09/21/18 14:22 Dose: 50 mls/hr Potassium Chloride 40 meq/ (Amino Acids) 1,020 mls @ 84 mls/hr IV Q12H [facility] Last Admin: 09/22/18 06:24 Dose: Not Given Lidocaine/Aluminum/Magnesium/Simeth (Magic Mouthwash *Sjr Formula* -) 5 ml MM Q6HPO PRN PRN Reason: ORAL PAIN/MOUTH SORES Last Admin: 09/20/18 10:39 Dose: 5 ml Metoclopramide HCl (Reglan Injection -) 10 mg IVPUSH Q8H PRN PRN Reason: NAUSEA AND/OR VOMITING Last Admin: 09/20/18 18:52 Dose: 10 mg Metoprolol Tartrate (Lopressor Injection -) 5 mg IVPB TID [facility] Last Admin: 09/22/18 08:25 Dose: 5 mg Multivitamins/Minerals (Infuvite Adult -) 10 ml IV DAILY@1530 [facility] Last Admin: 09/21/18 23:57 Dose: 10 ml Pantoprazole Sodium (Protonix Iv) 40 mg IVPUSH DAILY [facility] Last Admin: 09/22/18 10:08 Dose: 40 mg Tbo-Filgrastim (Granix -) 480 mcg SQ DAILY [facility] Last Admin: 09/21/18 11:48 Dose: 480 mcg Vancomycin HCl (Vancomycin Oral Solution) 125 mg PO Q6HPO [facility] Last Admin: 09/22/18 06:24 Dose: Not Given - Objective Vital Signs: Vital Signs Temperature 98.4 F 09/22/18 06:36 Pulse Rate 80 09/22/18 08:25 Respiratory Rate 20 09/22/18 06:36 Blood Pressure 128/80 09/22/18 08:25 O2 Sat by Pulse Oximetry (%) 94 L 09/21/18 21:00 Constitutional: Yes: No Distress, Calm, Thin Neck: Yes: Supple Cardiovascular: Yes: Regular Rate and Rhythm Respiratory: Yes: Regular, Diminished Gastrointestinal: Yes: Soft, Hypoactive Bowel Sounds Edema: Yes Edema: LLE: Trace, RLE: Trace Labs: CBC, BMP 09/21/18 06:38 09/21/18 06:38 INR, PTT INR 1.08 (0.83-1.09) 09/21/18 06:38 Fibrinogen 442.0 mg/dL (238-498) 09/15/18 15:00 Problem List - Problems (1) Atrial fibrillation Code(s): I48.91 - UNSPECIFIED ATRIAL FIBRILLATION Qualifiers: Atrial fibrillation type: paroxysmal Qualified Code(s): I48.0 - Paroxysmal atrial fibrillation (2) Dysphagia, oropharyngeal phase Code(s): R13.12 - DYSPHAGIA, OROPHARYNGEAL PHASE (3) MRSA (methicillin resistant staph aureus) culture positive Code(s): Z22.322 - CARRIER OR SUSPECTED CARRIER OF METHICILLIN RESIS STAPH (4) Multiple myeloma Code(s): C90.00 - MULTIPLE MYELOMA NOT HAVING ACHIEVED REMISSION Qualifiers: Multiple myeloma remission status: unspecified Qualified Code(s): C90.00 - Multiple myeloma not having achieved remission (5) CAD (coronary artery disease) Code(s): I25.10 - ATHSCL HEART DISEASE OF [place] CORONARY ARTERY W/O ANG PCTRS Qualifiers: Coronary Disease-Associated Artery/Lesion type: [place] artery [place] vs. transplanted heart: [place] heart Associated angina: without angina Qualified Code(s): I25.10 - Atherosclerotic heart disease of [place] coronary artery without angina pectoris (6) CIDP (chronic inflammatory demyelinating polyneuropathy) Code(s): G61.81 - CHRONIC INFLAMMATORY DEMYELINATING POLYNEURITIS (7) Diabetes mellitus Code(s): E11.9 - TYPE 2 DIABETES MELLITUS WITHOUT COMPLICATIONS Qualifiers: Diabetes mellitus type: type 2 Diabetes mellitus snf insulin use: without termite inspector use Diabetes mellitus complication status: without complication Qualified Code(s): E11.9 - Type 2 diabetes mellitus without complications (8) Diastolic dysfunction Code(s): I51.9 - HEART DISEASE, UNSPECIFIED (9) HTN (hypertension) Code(s): I10 - ESSENTIAL (PRIMARY) HYPERTENSION Qualifiers: Hypertension type: essential hypertension Qualified Code(s): I10 - Essential (primary) hypertension (10) Hypercholesterolemia Code(s): E78.00 - PURE HYPERCHOLESTEROLEMIA, UNSPECIFIED Assessment/Plan 09/14/2018 Echo: Mild cLVH, LVEF 60%, mild MR, can't r/o endocarditis 1. MRSA bacteremia post port removal c/w line sepsis given bld cx clearance 2. Pancytopenia with POOR RESPONSE TO NEUPOGEN AND BLOOD TRANSFUSION, history of multiple myeloma post stem cell transplant 3. cdiff antigen with diarrhea- on po vancomycin 4. metastatic colon cancer with rt. lobe of liver metastasis (unresectable at this point due to fatty liver) 5. 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 CAD, angina pectoris 7. Diastolic dysfunction 8. Paroxysmal atrial fibrillation currently in sinus rhythm [id number] score of 3, off A/C therapy with NOAC (Eliquis) 9. Hypertension 10. DM 11. Hypercholesterolemia P:1. RANDY no longer indicated with clearance of 09/17 bld cx post port removal c/ w line sepsis, continue abx course per ID 2. IV Lopressor for rate-control 3. Post IVIG and Diflucan for dysphagia, possible oral thrush 4. Neupogen, may need PEG reinsertion
--- NOTE | 2018-09-22 10:48 | PN ---
Progress Note (short form) - Note Progress Note: feels weak abd pain /soreness decreased appetite nausea+ diarrhea + still unable to swallow water Vital Signs - 24 hr 09/21/18 09/21/18 09/21/18 15:26 16:35 21:00 Temperature 98.5 F Pulse Rate 98 H 98 H Respiratory 18 Rate Blood Pressure 120/79 120/79 O2 Sat by Pulse 94 L Oximetry (%) 09/21/18 09/21/18 09/22/18 22:28 23:56 02:00 Temperature 98.4 F 98.2 F Pulse Rate 96 H 96 H 89 Respiratory 18 18 Rate Blood Pressure 123/58 L 126/73 130/73 O2 Sat by Pulse Oximetry (%) 09/22/18 09/22/18 06:36 08:25 Temperature 98.4 F Pulse Rate 80 80 Respiratory 20 Rate Blood Pressure 128/80 128/80 O2 Sat by Pulse Oximetry (%) Current Medications Generic Name Dose Route Start Last Admin Trade Name Freq PRN Reason Stop Dose Admin Acetaminophen 1,000 mg 09/16/18 10:10 09/16/18 18:37 Ofirmev Injection - IVPB 1,000 mg Q6H PRN Administration FEVER Emollient Ointment 1 applic 09/21/18 12:00 09/22/18 10:08 Aquaphor - TP 1 applic BID JAMIE Administration Daptomycin 700 mg/ Sodium 50 mls @ 100 mls/hr 09/15/18 16:30 09/21/18 13:03 Chloride IVPB 100 mls/hr DAILY JAMIE Administration Protocol Ceftaroline Fosamil 600 mg/ 100 mls @ 200 mls/hr 09/17/18 14:00 09/22/18 06: 30 Dextrose IVPB 200 mls/hr TID JAMIE Administration Protocol Fluconazole 50 mls @ 50 mls/hr 09/18/18 12:30 09/21/18 14:22 Diflucan 100 Mg/Ns Premixed Ivpb - IVPB 50 mls/hr DAILY JAMIE Administration Potassium Chloride 40 meq/ 1,020 mls @ 84 mls/hr 09/20/18 14:58 09/22/18 06: 24 Amino Acids IV Not Given Q12H JAMIE Lidocaine/Aluminum/Magnesium/Simeth 5 ml 09/16/18 11:07 09/20/18 10:39 Magic Mouthwash *Sjr Formula* - MM 5 ml Q6HPO PRN Administration ORAL PAIN/MOUTH SORES Metoclopramide HCl 10 mg 09/20/18 18:20 09/20/18 18:52 Reglan Injection - IVPUSH 10 mg Q8H PRN Administration NAUSEA AND/OR VOMITING Metoprolol Tartrate 5 mg 09/18/18 14:00 09/22/18 08:25 Lopressor Injection - IVPB 5 mg TID JAMIE Administration Multivitamins/Minerals 10 ml 09/19/18 15:30 09/21/18 23:57 Infuvite Adult - IV 10 ml DAILY@1530 JAMIE Administration Pantoprazole Sodium 40 mg 09/21/18 10:15 09/22/18 10:08 Protonix Iv IVPUSH 40 mg DAILY JAMIE Administration Tbo-Filgrastim 480 mcg 09/16/18 10:00 09/21/18 11:48 Granix - SQ 480 mcg DAILY JAMIE Administration Vancomycin HCl 125 mg 09/16/18 18:00 09/22/18 06:24 Vancomycin Oral Solution PO Not Given Q6HPO [facility] Laboratory Results - last 24 hr 09/21/18 06:38 Neutrophils % (Manual) 59.0 Band Neutrophils % 10.0 Lymphocytes % (Manual) 16.0 Monocytes % (Manual) 9 Eosinophils % (Manual) 1.0 Basophils % (Manual) 0.0 Myelocytes % (Man) 1 D Promyelocytes % (Man) 0 Blast Cells % (Manual) 0 Nucleated RBC % 0 Metamyelocytes 3 H D Hypochromia 0 Platelet Estimate Decreased Polychromasia 0 Poikilocytosis 0 Anisocytosis 0 Microcytosis 0 Macrocytosis 0 Tear Drop Cells 0 S1 S2 RRR Pale Lungs decreased breath sounds Abd- soft,tender all areas trace edema IV antibiotics iv antifungals pt refused PO vanco -- couldn't swallow Cardiology evaluation for RANDY -- PT is high risk candidate continue with meds IV fluids-->clinimix --labs pending pt unable to drink fluids tried water and pt immediately started gagging Dysphagia not improving with IVIG eliquis on hold prognosis poor spoke with Oncology consider ?peg tube blood cultures pending -- repeated palliative care Problem List - Problems (1) Neutropenic sepsis Code(s): A41.9 - SEPSIS, UNSPECIFIED ORGANISM; D70.9 - NEUTROPENIA, UNSPECIFIED (2) Atrial fibrillation Code(s): I48.91 - UNSPECIFIED ATRIAL FIBRILLATION Qualifiers: Atrial fibrillation type: paroxysmal Qualified Code(s): I48.0 - Paroxysmal atrial fibrillation (3) History of colon cancer Code(s): Z85.038 - PERSONAL HISTORY OF MALIGNANT NEOPLASM OF LARGE INTESTINE (4) Multiple myeloma Code(s): C90.00 - MULTIPLE MYELOMA NOT HAVING ACHIEVED REMISSION Qualifiers: Multiple myeloma remission status: unspecified Qualified Code(s): C90.00 - Multiple myeloma not having achieved remission (5) Sepsis Code(s): A41.9 - SEPSIS, UNSPECIFIED ORGANISM Qualifiers: Sepsis type: sepsis due to unspecified organism Qualified Code(s): A41.9 - Sepsis, unspecified organism (6) Anemia Code(s): D64.9 - ANEMIA, UNSPECIFIED Qualifiers: Anemia type: unspecified type Qualified Code(s): D64.9 - Anemia, unspecified
[2018-09-22] MEDS: DAPTOMYCIN 700 MG in SODIUM CHLORIDE 50 ML IVPB SCH (11:09)
[2018-09-22] MEDS: TBO-FILGRASTIM 480 MCG/0.8 ML DISP.SYRIN SQ SCH (11:10)
[2018-09-22] MEDS: FLUCONAZOLE 100 MG/NS 50 ML IVPB SCH (12:28)
--- NOTE | 2018-09-22 12:39 | PN ---
Progress Note, [employer] - Note Progress Note: Pt is refusing to try any food or liquid. Pt with eyes closed.I'm not sure if he was sleeping but he did not participate in the conversation. The last couple of days he did not want to talk about PO trials. His says "He will know when he can swallow." I discussed that PEG insertion is being entertained again and that before we even consider it, we should try small amounts of thick liquid or pudding. Thin liquid/jello is of increased aspiration risk and has resulted in cough response. Pt is a full code.
--- NOTE | 2018-09-22 21:30 | PN ---
Progress Note (short form) - Note Progress Note: Patien seen and examined generalized weakness oriented in person, place AFVSS Cor: RSR, No murmurs, No gallops Lungs: Clear to P&A Abd: Soft, Normal bowel sounds, No organomegaly Ext:No significant edema Labs/meds reviewed A/P 72 y/o patient with MRSA sepsis Port infection S/P removal Colon ca S/P chemotherapy -- FOLFIRI Dysphagia Pancytopenia- s/p platelets Recovery of WBC with neupogen CIDP/dysphagia On ceftraroline/daptomycin/fluconazole/PO vancomycin monitor thrombocyopenia/anemia stop granix on clinimix continue current supporive care
[2018-09-23] MEDS: AMINO ACIDS IV SCH ×3 (01:35→19:26)
[2018-09-23] MEDS: POTASSIUM CHLORIDE IV SCH ×3 (01:35→19:26)
[2018-09-23] MEDS: MULTIVIT INJ. ADULT COMBO WITH VIT K 1 COMBO 10 ML VIAL IV SCH ×3 (01:36→19:27)
[2018-09-23] MEDS: METOPROLOL TARTRATE 5 MG/5 ML VIAL IVPB SCH ×3 (05:57→21:49)
[2018-09-23] MEDS: VANCOMYCIN 250 MG/5 ML ORAL SOLUTION PO SCH ×3 (06:00→18:09)
[2018-09-23] MEDS: CEFTAROLINE FOSAMIL ACETATE 600 MG in DEXTROSE 5%-WATER - 100 ML IVPB SCH ×3 (06:38→21:43)
[2018-09-23 07:23] LABS: BASO % 0.8 % (0-2.0); EOS % 0.4 % (0-4.5); HEMATOCRIT 32.7 % (35.4-49); HEMOGLOBIN 10.7 GM/dL (11.7-16.9); LYMPH % 14.1 % (8-40); MCH 28.3 pg (25.7-33.7); MCHC 32.6 g/dl (32.0-35.9); MEAN CELL VOLUME 86.8 fl (80-96); MEAN PLT VOLUME 9.9 fl (7.5-11.1); MONO % 12.8 % (3.8-10.2); NEUT % 71.9 % (42.8-82.8); PLATELET COUNT 37 K/MM3 (134-434); RBC 3.77 M/mm3 (4.00-5.60); RDW 17.9 % (11.9-15.9); WHITE BLOOD COUNT 8.3 K/mm3 (4.0-10.0)
[2018-09-23 08:18] LABS: ALBUMIN 2.5 g/dl (3.4-5.0); BILIRUBIN,TOTAL 0.6 mg/dL (0.2-1); CALCIUM 8.7 mg/dL (8.5-10.1); POTASSIUM 3.6 mmol/L (3.5-5.1); TOT PROT 7.9 g/dl (6.4-8.2)
[2018-09-23] MEDS ORDERED: PT OWN MED DRAWER 7, Y5N ONE ×5 (09:29→21:23)
[2018-09-23] MEDS: FLUCONAZOLE 100 MG/NS 50 ML IVPB SCH (09:38)
[2018-09-23] MEDS: PANTOPRAZOLE SODIUM 40 MG VIAL IVPUSH SCH (09:38)
[2018-09-23] MEDS: MINERAL OIL/PET HY-PHL TOPICAL OINTMENT 454 GM JAR TP SCH ×2 (09:39→21:48)
--- NOTE | 2018-09-23 10:37 | PN ---
Progress Note (short form) - Note Progress Note: pt seen/ examined chart reviewed awake/comfortable Vital Signs Temp 97.3 F L 09/23/18 06:45 Pulse 99 H 09/23/18 06:45 Resp 20 09/23/18 06:45 BP 124/78 09/23/18 06:45 Pulse Ox 97 09/22/18 21:00 Intake & Output 09/22/18 09/22/18 09/23/18 11:59 23:59 11:59 Intake Total 1308 1458 1000 Output Total 800 Balance 1457 486 6715 Weight 198 lb 7 oz 196 lb 3 oz Intake: IV 1008 1008 900 Clinimix 1000ml @ 84ml 1008 1008 900 hour IV Q12 JAMIE IVPB 300 450 100 Output: Urine 800 Void 800 Other: Voiding Method Incontinent Urinal Bowel Movement Yes Yes # Bowel Movements 1 2 Weight Measurement Method [facility] Active Medications Acetaminophen (Ofirmev Injection -) 1,000 mg IVPB Q6H PRN PRN Reason: FEVER Last Admin: 09/16/18 18:37 Dose: 1,000 mg Emollient Ointment (Aquaphor -) 1 applic TP BID JAMIE Last Admin: 09/23/18 09:39 Dose: 1 applic Daptomycin 700 mg/ Sodium (Chloride) 50 mls @ 100 mls/hr IVPB DAILY JAMIE; Protocol Last Admin: 09/22/18 11:09 Dose: 100 mls/hr Ceftaroline Fosamil 600 mg/ (Dextrose) 100 mls @ 200 mls/hr IVPB TID JAMIE; Protocol Last Admin: 09/23/18 06:38 Dose: 200 mls/hr Fluconazole (Diflucan 100 Mg/Ns Premixed Ivpb -) 50 mls @ 50 mls/hr IVPB DAILY JAMIE Last Admin: 09/23/18 09:38 Dose: 50 mls/hr Potassium Chloride 40 meq/ (Amino Acids) 1,020 mls @ 84 mls/hr IV Q12H JAMIE Last Admin: 09/23/18 03:04 Dose: Not Given Lidocaine/Aluminum/Magnesium/Simeth (Magic Mouthwash *Sjr Formula* -) 5 ml MM Q6HPO PRN PRN Reason: ORAL PAIN/MOUTH SORES Last Admin: 09/20/18 10:39 Dose: 5 ml Metoclopramide HCl (Reglan Injection -) 10 mg IVPUSH Q8H PRN PRN Reason: NAUSEA AND/OR VOMITING Last Admin: 09/20/18 18:52 Dose: 10 mg Metoprolol Tartrate (Lopressor Injection -) 5 mg IVPB TID [facility] Last Admin: 09/23/18 05:57 Dose: 5 mg Multivitamins/Minerals (Infuvite Adult -) 10 ml IV DAILY@1530 [facility] Last Admin: 09/23/18 03:04 Dose: Not Given Pantoprazole Sodium (Protonix Iv) 40 mg IVPUSH DAILY [facility] Last Admin: 09/23/18 09:38 Dose: 40 mg Tbo-Filgrastim (Granix -) 480 mcg SQ DAILY [facility] Last Admin: 09/22/18 11:10 Dose: 480 mcg Vancomycin HCl (Vancomycin Oral Solution) 125 mg PO Q6HPO [facility] Last Admin: 09/23/18 06:00 Dose: 125 mg CBC, BMP 09/23/18 06:17 09/23/18 06:17 Microbiology 09/22/18 06:45 Blood Culture - Preliminary Blood - Peripheral Venous NO GROWTH OBTAINED AFTER 24 HOURS, INCUBATION TO CONTINUE FOR 4 DAYS. 09/22/18 06:40 Blood Culture - Preliminary Blood - Peripheral Venous NO GROWTH OBTAINED AFTER 24 HOURS, INCUBATION TO CONTINUE FOR 4 DAYS. 09/17/18 14:00 Blood Culture - Final Blood - Peripheral Venous NO GROWTH AFTER 5 DAYS INCUBATION 09/17/18 13:55 Blood Culture - Final Blood - Peripheral Venous NO GROWTH AFTER 5 DAYS INCUBATION Physical exam S1 S2 RRR Pale Lungs decreased breath sounds Abd- soft, trace edema + thrush IV antibiotics iv antifungals pt refused PO vanco -- couldn't swallow Cardiology evaluation for RANDY -- PT is high risk candidate continue with meds IV fluids-->clinimix Dysphagia not improving with IVIG eliquis on hold prognosis poor spoke with Oncology consider ?peg tube blood cultures pending -- repeated palliative care Problem List - Problems (1) Neutropenic sepsis Code(s): A41.9 - SEPSIS, UNSPECIFIED ORGANISM; D70.9 - NEUTROPENIA, UNSPECIFIED (2) Atrial fibrillation Code(s): I48.91 - UNSPECIFIED ATRIAL FIBRILLATION Qualifiers: Atrial fibrillation type: paroxysmal Qualified Code(s): I48.0 - Paroxysmal atrial fibrillation (3) History of colon cancer Code(s): Z85.038 - PERSONAL HISTORY OF MALIGNANT NEOPLASM OF LARGE INTESTINE (4) Multiple myeloma Code(s): C90.00 - MULTIPLE MYELOMA NOT HAVING ACHIEVED REMISSION Qualifiers: Multiple myeloma remission status: unspecified Qualified Code(s): C90.00 - Multiple myeloma not having achieved remission (5) Sepsis Code(s): A41.9 - SEPSIS, UNSPECIFIED ORGANISM Qualifiers: Sepsis type: sepsis due to unspecified organism Qualified Code(s): A41.9 - Sepsis, unspecified organism (6) Anemia Code(s): D64.9 - ANEMIA, UNSPECIFIED Qualifiers: Anemia type: unspecified type Qualified Code(s): D64.9 - Anemia, unspecified
[2018-09-23] MEDS: DAPTOMYCIN 700 MG in SODIUM CHLORIDE 50 ML IVPB SCH (11:02)
[2018-09-23] MEDS: TBO-FILGRASTIM 480 MCG/0.8 ML DISP.SYRIN SQ SCH (11:03)
--- NOTE | 2018-09-23 11:22 | PN ---
Progress Note, Physician History of Present Illness: Dysphagia persists despite IVIG and Diflucan, diarrhea resolving. Bld cx 09/17 has cleared c/w line sepsis. - Current Medication List Current Medications: Active Medications Acetaminophen (Ofirmev Injection -) 1,000 mg IVPB Q6H PRN PRN Reason: FEVER Last Admin: 09/16/18 18:37 Dose: 1,000 mg Emollient Ointment (Aquaphor -) 1 applic TP BID [facility] Last Admin: 09/23/18 09:39 Dose: 1 applic Daptomycin 700 mg/ Sodium (Chloride) 50 mls @ 100 mls/hr IVPB DAILY [facility]; Protocol Last Admin: 09/23/18 11:02 Dose: 100 mls/hr Ceftaroline Fosamil 600 mg/ (Dextrose) 100 mls @ 200 mls/hr IVPB TID [facility]; Protocol Last Admin: 09/23/18 06:38 Dose: 200 mls/hr Fluconazole (Diflucan 100 Mg/Ns Premixed Ivpb -) 50 mls @ 50 mls/hr IVPB DAILY [facility] Last Admin: 09/23/18 09:38 Dose: 50 mls/hr Potassium Chloride 40 meq/ (Amino Acids) 1,020 mls @ 84 mls/hr IV Q12H [facility] Last Admin: 09/23/18 03:04 Dose: Not Given Lidocaine/Aluminum/Magnesium/Simeth (Magic Mouthwash *Sjr Formula* -) 5 ml MM Q6HPO PRN PRN Reason: ORAL PAIN/MOUTH SORES Last Admin: 09/20/18 10:39 Dose: 5 ml Metoclopramide HCl (Reglan Injection -) 10 mg IVPUSH Q8H PRN PRN Reason: NAUSEA AND/OR VOMITING Last Admin: 09/20/18 18:52 Dose: 10 mg Metoprolol Tartrate (Lopressor Injection -) 5 mg IVPB TID [facility] Last Admin: 09/23/18 05:57 Dose: 5 mg Multivitamins/Minerals (Infuvite Adult -) 10 ml IV DAILY@1530 [facility] Last Admin: 09/23/18 03:04 Dose: Not Given Pantoprazole Sodium (Protonix Iv) 40 mg IVPUSH DAILY [facility] Last Admin: 09/23/18 09:38 Dose: 40 mg Tbo-Filgrastim (Granix -) 480 mcg SQ DAILY [facility] Last Admin: 09/23/18 11:03 Dose: 480 mcg Vancomycin HCl (Vancomycin Oral Solution) 125 mg PO Q6HPO [facility] Last Admin: 09/23/18 06:00 Dose: 125 mg - Objective Vital Signs: Vital Signs Temperature 97.3 F L 09/23/18 06:45 Pulse Rate 99 H 09/23/18 06:45 Respiratory Rate 20 09/23/18 06:45 Blood Pressure 124/78 09/23/18 06:45 O2 Sat by Pulse Oximetry (%) 97 09/22/18 21:00 Constitutional: Yes: No Distress, Calm Neck: Yes: Supple Cardiovascular: Yes: Regular Rate and Rhythm Respiratory: Yes: Regular, Diminished Gastrointestinal: Yes: Soft, Hypoactive Bowel Sounds Edema: No Labs: CBC, BMP 09/23/18 06:17 09/23/18 06:17 INR, PTT INR 1.08 (0.83-1.09) 09/21/18 06:38 Fibrinogen 442.0 mg/dL (238-498) 09/15/18 15:00 Problem List - Problems (1) Atrial fibrillation Code(s): I48.91 - UNSPECIFIED ATRIAL FIBRILLATION Qualifiers: Atrial fibrillation type: paroxysmal Qualified Code(s): I48.0 - Paroxysmal atrial fibrillation (2) Dysphagia, oropharyngeal phase Code(s): R13.12 - DYSPHAGIA, OROPHARYNGEAL PHASE (3) MRSA (methicillin resistant staph aureus) culture positive Code(s): Z22.322 - CARRIER OR SUSPECTED CARRIER OF METHICILLIN RESIS STAPH (4) Multiple myeloma Code(s): C90.00 - MULTIPLE MYELOMA NOT HAVING ACHIEVED REMISSION Qualifiers: Multiple myeloma remission status: unspecified Qualified Code(s): C90.00 - Multiple myeloma not having achieved remission (5) CAD (coronary artery disease) Code(s): I25.10 - ATHSCL HEART DISEASE OF [place] CORONARY ARTERY W/O ANG PCTRS Qualifiers: Coronary Disease-Associated Artery/Lesion type: [place] artery [place] vs. 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 MRSA bacteremia post port removal c/w line sepsis given bld cx clearance 2. Pancytopenia with POOR RESPONSE TO NEUPOGEN AND BLOOD TRANSFUSION, history of multiple myeloma post stem cell transplant 3. cdiff antigen with diarrhea- on po vancomycin 4. metastatic colon cancer with rt. lobe of liver metastasis (unresectable at this point due to fatty liver) 5. 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 CAD, angina pectoris 7. Diastolic dysfunction 8. Paroxysmal atrial fibrillation currently in sinus rhythm [id number] score of 3, off A/C therapy with NOAC (Eliquis) 9. Hypertension 10. DM 11. Hypercholesterolemia P:1. RANDY no longer indicated with clearance of 09/17 bld cx post port removal c/ w line sepsis, continue abx course per ID f/u 09/22 surveillance cultures 2. IV Lopressor for rate-control 3. Post IVIG, magic mouthwash and Diflucan for dysphagia, possible oral thrush, may need PEG reinsertion if fails swallow trials 4. Neupogen, GI protection
--- NOTE | 2018-09-23 13:26 | PN.GI ---
GI Progress Note Subjective: GI NOte: Unable to swallow. Doesn't want to try anymore. I discussed reinsertion of a G tube. Michael is willing. Discussed endoscopic vs IR option which avoids MAC but requires an NG insertion. He has opted for the latter - Objective Vital Signs: Vital Signs Temperature 97.3 F L 09/23/18 06:45 Pulse Rate 99 H 09/23/18 06:45 Respiratory Rate 20 09/23/18 06:45 Blood Pressure 124/78 09/23/18 06:45 O2 Sat by Pulse Oximetry (%) 97 09/22/18 21:00 Laboratory Tests 09/18/18 09/19/18 09/21/18 06:00 16:35 06:38 WBC 1.6 L* 2.6 L Hgb 9.7 L Plt Count 25 L* 19 L* PT with INR 12.70 09/23/18 06:17 WBC 8.3 Hgb 10.7 L Plt Count 37 L PT with INR Constitutional: Anxious ...Auscultate: Yes: Normoactive Bowel Sounds ...Palpate: Yes: Soft, Other (nontender) Labs: CBC, BMP 09/23/18 06:17 09/23/18 06:17 INR, PTT INR 1.08 (0.83-1.09) 09/21/18 06:38 Fibrinogen 442.0 mg/dL (238-498) 09/15/18 15:00 Assessment/Plan Impression; -Oropharyngeal dysphagia- not responding to IVIG. - Diarrhea resolving - Metastatic colon cancer Plan: -- Consider IR insertion of G tube when hematologically stable for this. Will likely need platelet transfusion Problem List - Problems (1) Dysphagia, oropharyngeal phase Code(s): R13.12 - DYSPHAGIA, OROPHARYNGEAL PHASE (2) Diarrhea Code(s): R19.7 - DIARRHEA, UNSPECIFIED (3) MRSA (methicillin resistant staph aureus) culture positive Code(s): Z22.322 - CARRIER OR SUSPECTED CARRIER OF METHICILLIN RESIS STAPH (4) Atrial fibrillation Code(s): I48.91 - UNSPECIFIED ATRIAL FIBRILLATION Qualifiers: Atrial fibrillation type: paroxysmal Qualified Code(s): I48.0 - Paroxysmal atrial fibrillation (5) Multiple myeloma Code(s): C90.00 - MULTIPLE MYELOMA NOT HAVING ACHIEVED REMISSION Qualifiers: Multiple myeloma remission status: unspecified Qualified Code(s): C90.00 - Multiple myeloma not having achieved remission (6) Neutropenic sepsis Code(s): A41.9 - SEPSIS, UNSPECIFIED ORGANISM; D70.9 - NEUTROPENIA, UNSPECIFIED (7) Sepsis Code(s): A41.9 - SEPSIS, UNSPECIFIED ORGANISM Qualifiers: Sepsis type: sepsis due to unspecified organism Qualified Code(s): A41.9 - Sepsis, unspecified organism (8) Anemia Code(s): D64.9 - ANEMIA, UNSPECIFIED Qualifiers: Anemia type: unspecified type Qualified Code(s): D64.9 - Anemia, unspecified (9) C. difficile diarrhea Code(s): A04.72 - ENTEROCOLITIS D/T CLOSTRIDIUM DIFFICILE, NOT SPCF RECUR (10) Diabetes mellitus Code(s): E11.9 - TYPE 2 DIABETES MELLITUS WITHOUT COMPLICATIONS Qualifiers: Diabetes mellitus type: type 2 Diabetes mellitus adjunct faculty for medical terminology insulin use: without adjunct faculty for medical terminology use Diabetes mellitus complication status: without complication Qualified Code(s): E11.9 - Type 2 diabetes mellitus without complications (11) Family history of colon cancer Code(s): Z80.0 - FAMILY HISTORY OF MALIGNANT NEOPLASM OF DIGESTIVE ORGANS (12) HTN (hypertension) Code(s): I10 - ESSENTIAL (PRIMARY) HYPERTENSION Qualifiers: Hypertension type: essential hypertension Qualified Code(s): I10 - Essential (primary) hypertension (13) Hypercholesterolemia Code(s): E78.00 - PURE HYPERCHOLESTEROLEMIA, UNSPECIFIED (14) Schatzki's ring of distal esophagus Code(s): K22.2 - ESOPHAGEAL OBSTRUCTION (15) Status post insertion of percutaneous endoscopic gastrostomy (PEG) tube Code(s): Z93.1 - GASTROSTOMY STATUS (16) Colon cancer Code(s): C18.9 - MALIGNANT NEOPLASM OF COLON, UNSPECIFIED (17) CIDP (chronic inflammatory demyelinating polyneuropathy) Code(s): G61.81 - CHRONIC INFLAMMATORY DEMYELINATING POLYNEURITIS
--- NOTE | 2018-09-23 13:35 | PN ---
Progress Note, Physician History of Present Illness: AWAKE, ALERT IN BED STILL WITH DYSPHAGIA; UNABLE TO SWALLOW ICE CREAM TEMPS REMAIN DOWN AFEBRILE WBC IMPROVED 8.3 PLT IMPROVED REPEAT BC (09/22) PRELIM NEGATIVE - Current Medication List Current Medications: Active Medications Acetaminophen (Ofirmev Injection -) 1,000 mg IVPB Q6H PRN PRN Reason: FEVER Last Admin: 09/16/18 18:37 Dose: 1,000 mg Emollient Ointment (Aquaphor -) 1 applic TP BID [facility] Last Admin: 09/23/18 09:39 Dose: 1 applic Daptomycin 700 mg/ Sodium (Chloride) 50 mls @ 100 mls/hr IVPB DAILY [facility]; Protocol Last Admin: 09/23/18 11:02 Dose: 100 mls/hr Ceftaroline Fosamil 600 mg/ (Dextrose) 100 mls @ 200 mls/hr IVPB TID [facility]; Protocol Last Admin: 09/23/18 06:38 Dose: 200 mls/hr Fluconazole (Diflucan 100 Mg/Ns Premixed Ivpb -) 50 mls @ 50 mls/hr IVPB DAILY [facility] Last Admin: 09/23/18 09:38 Dose: 50 mls/hr Potassium Chloride 40 meq/ (Amino Acids) 1,020 mls @ 84 mls/hr IV Q12H [facility] Last Admin: 09/23/18 03:04 Dose: Not Given Lidocaine/Aluminum/Magnesium/Simeth (Magic Mouthwash *Sjr Formula* -) 5 ml MM Q6HPO PRN PRN Reason: ORAL PAIN/MOUTH SORES Last Admin: 09/20/18 10:39 Dose: 5 ml Metoclopramide HCl (Reglan Injection -) 10 mg IVPUSH Q8H PRN PRN Reason: NAUSEA AND/OR VOMITING Last Admin: 09/20/18 18:52 Dose: 10 mg Metoprolol Tartrate (Lopressor Injection -) 5 mg IVPB TID [facility] Last Admin: 09/23/18 13:21 Dose: 5 mg Multivitamins/Minerals (Infuvite Adult -) 10 ml IV DAILY@1530 [facility] Last Admin: 09/23/18 03:04 Dose: Not Given Pantoprazole Sodium (Protonix Iv) 40 mg IVPUSH DAILY [facility] Last Admin: 09/23/18 09:38 Dose: 40 mg Tbo-Filgrastim (Granix -) 480 mcg SQ DAILY [facility] Last Admin: 09/23/18 11:03 Dose: 480 mcg Vancomycin HCl (Vancomycin Oral Solution) 125 mg PO Q6HPO [facility] Last Admin: 09/23/18 06:00 Dose: 125 mg - Objective Vital Signs: Vital Signs Temperature 97.3 F L 09/23/18 06:45 Pulse Rate 100 H 09/23/18 13:21 Respiratory Rate 20 09/23/18 06:45 Blood Pressure 100/67 09/23/18 13:21 O2 Sat by Pulse Oximetry (%) 97 09/22/18 21:00 Constitutional: Yes: No Distress Eyes: Yes: Conjunctiva Clear Cardiovascular: Yes: Regular Rate and Rhythm, S1, S2 Respiratory: Yes: CTA Bilaterally Gastrointestinal: Yes: Normal Bowel Sounds, Soft. No: Tenderness Edema: No Labs: CBC, BMP 09/23/18 06:17 09/23/18 06:17 INR, PTT INR 1.08 (0.83-1.09) 09/21/18 06:38 Fibrinogen 442.0 mg/dL (238-498) 09/15/18 15:00 Assessment/Plan MRSA BACTEREMIA/ SEPSIS PROBABLE INFECTED PORT S/P REMOVAL THROMBOCYTOPENIA + C DIFF AZOTEMIA IMPROVED METASTATIC CA S/P CHEMO CONTINUE DAPTOMYCIN/ CEFTAROLINE CONTINUE FLUCONAZOLE PROGNOSIS GUARDED
[2018-09-23 14:31] LABS: ANISOCYTOSIS 0; MACROCYTOSIS 0; PLATELET ESTIMATE DECREASED; TEAR DROP CELLS 1+
--- NOTE | 2018-09-23 19:50 | PN ---
Progress Note (short form) - Note Progress Note: NEUROLOGY PROGRESS: Events reviewed. Pt. examined. Dr. Fuller's consultation read and appreciated. S/P IVIg 140 Grams Wed-Wednesday. Stronger- pt ambulated a few steps OO bed today to chair. But still difficult and painful to swallow. WBC up to 8.3!. H/H=10,7/32.7 but platelets still 37K TSH and B12 Normal. Exam: Lateral tongue strength is normal although tongue JAE's are sl reduced. Left eye/eyelid swollen, Normal facial strength. Proximal sstrength is normal. Ankle dorsiflexion is greatly improved (4+/5) although Pt remains areflexic. IMP: Strength is clearly improved s/p IVIg for CIDP. SUGGEST: Altho Pt has opted for IR placement of PEG, I would still consider a diagnositic endoscopy and/or laryngoscopy for etiology of dysphagia. Could place NGT x few days and observe for efect of IVIg and antifungal Rx. Thank you very much, Shahriar Monaco MD
[2018-09-24] MEDS: VANCOMYCIN 250 MG/5 ML ORAL SOLUTION PO SCH ×4 (00:10→18:38)
[2018-09-24] MEDS: AMINO ACIDS IV SCH ×3 (02:00→15:43)
[2018-09-24] MEDS: POTASSIUM CHLORIDE IV SCH ×3 (02:00→15:43)
[2018-09-24] MEDS ORDERED: morphine SULFATE 4 MG/ML VIAL IM PRN (05:07)
[2018-09-24] MEDS: CEFTAROLINE FOSAMIL ACETATE 600 MG in DEXTROSE 5%-WATER - 100 ML IVPB SCH (05:29)
[2018-09-24] MEDS: METOPROLOL TARTRATE 5 MG/5 ML VIAL IVPB SCH ×3 (06:28→21:43)
[2018-09-24 07:50] LABS: EOS % 0.5 % (0-4.5); HEMATOCRIT 33.8 % (35.4-49); MCH 29.1 pg (25.7-33.7); MCHC 32.7 g/dl (32.0-35.9); MEAN CELL VOLUME 88.9 fl (80-96); MEAN PLT VOLUME 10.3 fl (7.5-11.1); MONO % 10.9 % (3.8-10.2); NEUT % 74.6 % (42.8-82.8); RDW 18.1 % (11.9-15.9); WHITE BLOOD COUNT 8.6 K/mm3 (4.0-10.0)
[2018-09-24 08:20] LABS: ALBUMIN 2.6 g/dl (3.4-5.0); BILIRUBIN,TOTAL 0.4 mg/dL (0.2-1); CALCIUM 9.2 mg/dL (8.5-10.1); CREATININE 1.1 mg/dL (0.55-1.3); POTASSIUM 3.7 mmol/L (3.5-5.1); TOT PROT 7.8 g/dl (6.4-8.2)
[2018-09-24] MEDS: DAPTOMYCIN 700 MG in SODIUM CHLORIDE 50 ML IVPB SCH (10:20)
[2018-09-24] MEDS: FLUCONAZOLE 100 MG/NS 50 ML IVPB SCH (10:21)
--- NOTE | 2018-09-24 11:00 | PN ---
Progress Note (short form) - Note Progress Note: pt seen/ examined all f/u noted/ appreciated overall condition same no distress unable to eat Vital Signs Temp 97.4 F L 09/24/18 10:26 Pulse 90 09/24/18 10:26 Resp 18 09/24/18 10:26 BP 118/70 09/24/18 10:26 Pulse Ox 97 09/23/18 21:00 Intake & Output 09/23/18 09/23/18 09/24/18 11:59 23:59 11:59 Intake Total 1000 1550 150 Output Total 500 Balance 1000 1050 150 Weight 196 lb 3 oz 195 lb 6 oz Intake: IV 900 900 Clinimix 1000ml @ 84ml 900 900 hour IV Q12 JAMIE IVPB 100 250 150 Oral 50 Packed Cells 350 Output: Urine 500 Void 500 Other: Voiding Method Urinal Urinal Bowel Movement Yes Yes # Bowel Movements 2 2 Active Medications Acetaminophen (Ofirmev Injection -) 1,000 mg IVPB Q6H PRN PRN Reason: FEVER Last Admin: 09/16/18 18:37 Dose: 1,000 mg Emollient Ointment (Aquaphor -) 1 applic TP BID [facility] Last Admin: 09/23/18 21:48 Dose: 1 applic Daptomycin 700 mg/ Sodium (Chloride) 50 mls @ 100 mls/hr IVPB DAILY [facility]; Protocol Last Admin: 09/24/18 10:20 Dose: 100 mls/hr Ceftaroline Fosamil 600 mg/ (Dextrose) 100 mls @ 200 mls/hr IVPB TID [facility]; Protocol Last Admin: 09/24/18 05:29 Dose: 200 mls/hr Fluconazole (Diflucan 100 Mg/Ns Premixed Ivpb -) 50 mls @ 50 mls/hr IVPB DAILY [facility] Last Admin: 09/24/18 10:21 Dose: 50 mls/hr Potassium Chloride 40 meq/ (Amino Acids) 1,020 mls @ 84 mls/hr IV Q12H [facility] Last Admin: 09/24/18 02:00 Dose: 84 mls/hr Lidocaine/Aluminum/Magnesium/Simeth (Magic Mouthwash *Sjr Formula* -) 5 ml MM Q6HPO PRN PRN Reason: ORAL PAIN/MOUTH SORES Last Admin: 09/20/18 10:39 Dose: 5 ml Metoclopramide HCl (Reglan Injection -) 10 mg IVPUSH Q8H PRN PRN Reason: NAUSEA AND/OR VOMITING Last Admin: 09/20/18 18:52 Dose: 10 mg Metoprolol Tartrate (Lopressor Injection -) 5 mg IVPB TID [facility] Last Admin: 09/24/18 06:28 Dose: 5 mg Morphine Sulfate (Morphine Sulfate) 4 mg IM Q4H PRN PRN Reason: PAIN LEVEL 7-10 Multivitamins/Minerals (Infuvite Adult -) 10 ml IV DAILY@1530 [facility] Last Admin: 09/23/18 19:27 Dose: Not Given Pantoprazole Sodium (Protonix Iv) 40 mg IVPUSH DAILY [facility] Last Admin: 09/23/18 09:38 Dose: 40 mg Tbo-Filgrastim (Granix -) 480 mcg SQ DAILY [facility] Last Admin: 09/23/18 11:03 Dose: 480 mcg Vancomycin HCl (Vancomycin Oral Solution) 125 mg PO Q6HPO [facility] Last Admin: 09/24/18 05:29 Dose: 125 mg CBC, BMP 09/24/18 06:15 09/24/18 06:15 Microbiology 09/22/18 06:45 Blood Culture - Preliminary Blood - Peripheral Venous NO GROWTH OBTAINED AFTER 48 HOURS, INCUBATION TO CONTINUE FOR 3 DAYS. 09/22/18 06:40 Blood Culture - Preliminary Blood - Peripheral Venous NO GROWTH OBTAINED AFTER 48 HOURS, INCUBATION TO CONTINUE FOR 3 DAYS. Physical Exam S1 S2 RRR Pale Lungs decreased breath sounds Abd- soft,tender all areas trace edema IV antibiotics iv antifungals pt refused PO vanco -- couldn't swallow Cardiology evaluation for RANDY -- PT is high risk candidate continue with meds IV fluids-->clinimix pt unable to drink fluids tried water and pt immediately started gagging Dysphagia not improving with IVIG eliquis on hold prognosis poor spoke with Oncology consider ?peg tube blood cultures pending -- repeated palliative care Problem List - Problems (1) Neutropenic sepsis Code(s): A41.9 - SEPSIS, UNSPECIFIED ORGANISM; D70.9 - NEUTROPENIA, UNSPECIFIED (2) Atrial fibrillation Code(s): I48.91 - UNSPECIFIED ATRIAL FIBRILLATION Qualifiers: Atrial fibrillation type: paroxysmal Qualified Code(s): I48.0 - Paroxysmal atrial fibrillation (3) History of colon cancer Code(s): Z85.038 - PERSONAL HISTORY OF MALIGNANT NEOPLASM OF LARGE INTESTINE (4) Multiple myeloma Code(s): C90.00 - MULTIPLE MYELOMA NOT HAVING ACHIEVED REMISSION Qualifiers: Multiple myeloma remission status: unspecified Qualified Code(s): C90.00 - Multiple myeloma not having achieved remission (5) Sepsis Code(s): A41.9 - SEPSIS, UNSPECIFIED ORGANISM Qualifiers: Sepsis type: sepsis due to unspecified organism Qualified Code(s): A41.9 - Sepsis, unspecified organism (6) Anemia Code(s): D64.9 - ANEMIA, UNSPECIFIED Qualifiers: Anemia type: unspecified type Qualified Code(s): D64.9 - Anemia, unspecified
[2018-09-24 11:20] LABS: PLATELET COUNT 37 K/MM3 (134-434)
[2018-09-24] MEDS: PANTOPRAZOLE SODIUM 40 MG VIAL IVPUSH SCH (12:11)
[2018-09-24] MEDS: MINERAL OIL/PET HY-PHL TOPICAL OINTMENT 454 GM JAR TP SCH ×2 (12:11→21:44)
[2018-09-24] MEDS: TBO-FILGRASTIM 480 MCG/0.8 ML DISP.SYRIN SQ SCH (12:13)
[2018-09-24] MEDS: MULTIVIT INJ. ADULT COMBO WITH VIT K 1 COMBO 10 ML VIAL IV SCH (15:43)
[2018-09-24 16:35] LABS: PLATELET ESTIMATE DECREASED
[2018-09-25] MEDS: VANCOMYCIN 250 MG/5 ML ORAL SOLUTION PO SCH ×4 (00:30→19:18)
[2018-09-25] MEDS: METOPROLOL TARTRATE 5 MG/5 ML VIAL IVPB SCH ×3 (05:54→22:17)
[2018-09-25] MEDS: POTASSIUM CHLORIDE IV SCH ×2 (05:54→15:18)
[2018-09-25] MEDS: AMINO ACIDS IV SCH ×2 (05:54→15:18)
[2018-09-25] MEDS ORDERED: PT OWN MED DRAWER 7, Y5N ONE (09:17)
[2018-09-25] MEDS: PANTOPRAZOLE SODIUM 40 MG VIAL IVPUSH SCH (09:34)
[2018-09-25] MEDS: FLUCONAZOLE 100 MG/NS 50 ML IVPB SCH (09:34)
[2018-09-25] MEDS: MINERAL OIL/PET HY-PHL TOPICAL OINTMENT 454 GM JAR TP SCH ×2 (09:34→22:18)
[2018-09-25] MEDS: DAPTOMYCIN 700 MG in SODIUM CHLORIDE 50 ML IVPB SCH (10:14)
--- NOTE | 2018-09-25 12:20 | PN ---
Progress Note (short form) - Note Progress Note: pt seen/ examined chart reviewed awake/ comfortable feels better thrush better still unable to eat at bedside Vital Signs Temp 98 F 09/25/18 07:15 Pulse 86 09/25/18 07:15 Resp 20 09/25/18 07:15 BP 109/70 09/25/18 07:15 Pulse Ox 97 09/24/18 21:00 Intake & Output 09/24/18 09/25/18 09/25/18 23:59 11:59 23:59 Intake Total 1564 Output Total 500 Balance 1564 -500 Intake: IV 1344 Clinimix 1000ml @ 84ml 1344 hour IV Q12 JAMIE IVPB 100 Oral Supplement 120 Output: Urine 500 Void 500 Other: Voiding Method Urinal # Bowel Movements 2 Active Medications Acetaminophen (Ofirmev Injection -) 1,000 mg IVPB Q6H PRN PRN Reason: FEVER Last Admin: 09/16/18 18:37 Dose: 1,000 mg Emollient Ointment (Aquaphor -) 1 applic TP BID [facility] Last Admin: 09/25/18 09:34 Dose: 1 applic Daptomycin 700 mg/ Sodium (Chloride) 50 mls @ 100 mls/hr IVPB DAILY [facility]; Protocol Last Admin: 09/25/18 10:14 Dose: 100 mls/hr Fluconazole (Diflucan 100 Mg/Ns Premixed Ivpb -) 50 mls @ 50 mls/hr IVPB DAILY [facility] Last Admin: 09/25/18 09:34 Dose: 50 mls/hr Potassium Chloride 40 meq/ (Amino Acids) 1,020 mls @ 84 mls/hr IV Q12H [facility] Last Admin: 09/25/18 05:54 Dose: 84 mls/hr Lidocaine/Aluminum/Magnesium/Simeth (Magic Mouthwash *Sjr Formula* -) 5 ml MM Q6HPO PRN PRN Reason: ORAL PAIN/MOUTH SORES Last Admin: 09/20/18 10:39 Dose: 5 ml Metoclopramide HCl (Reglan Injection -) 10 mg IVPUSH Q8H PRN PRN Reason: NAUSEA AND/OR VOMITING Last Admin: 09/20/18 18:52 Dose: 10 mg Metoprolol Tartrate (Lopressor Injection -) 5 mg IVPB TID [facility] Last Admin: 09/25/18 05:54 Dose: 5 mg Morphine Sulfate (Morphine Sulfate) 4 mg IM Q4H PRN PRN Reason: PAIN LEVEL 7-10 Multivitamins/Minerals (Infuvite Adult -) 10 ml IV DAILY@1530 [facility] Last Admin: 09/24/18 15:43 Dose: 10 ml Pantoprazole Sodium (Protonix Iv) 40 mg IVPUSH DAILY [facility] Last Admin: 09/25/18 09:34 Dose: 40 mg Vancomycin HCl (Vancomycin Oral Solution) 125 mg PO Q6HPO [facility] Last Admin: 09/25/18 05:55 Dose: 125 mg CBC, BMP 09/24/18 06:15 09/24/18 06:15 Microbiology 09/22/18 06:45 Blood Culture - Preliminary Blood - Peripheral Venous NO GROWTH OBTAINED AFTER 72 HOURS, INCUBATION TO CONTINUE FOR 2 DAYS. 09/22/18 06:40 Blood Culture - Preliminary Blood - Peripheral Venous NO GROWTH OBTAINED AFTER 72 HOURS, INCUBATION TO CONTINUE FOR 2 DAYS. Physical Exam S1 S2 RRR Lungs decreased breath sounds Abd- soft,tender all areas trace edema A/P Better IV antibiotics iv antifungals continue with meds IV fluids-->clinimix pt unable to drink fluids Dysphagia not improving with IVIG eliquis on hold prognosis poor spoke with Oncology consider ?peg tube palliative care Problem List - Problems (1) Neutropenic sepsis Code(s): A41.9 - SEPSIS, UNSPECIFIED ORGANISM; D70.9 - NEUTROPENIA, UNSPECIFIED (2) Atrial fibrillation Code(s): I48.91 - UNSPECIFIED ATRIAL FIBRILLATION Qualifiers: Atrial fibrillation type: paroxysmal Qualified Code(s): I48.0 - Paroxysmal atrial fibrillation (3) History of colon cancer Code(s): Z85.038 - PERSONAL HISTORY OF MALIGNANT NEOPLASM OF LARGE INTESTINE (4) Multiple myeloma Code(s): C90.00 - MULTIPLE MYELOMA NOT HAVING ACHIEVED REMISSION Qualifiers: Multiple myeloma remission status: unspecified Qualified Code(s): C90.00 - Multiple myeloma not having achieved remission (5) Sepsis Code(s): A41.9 - SEPSIS, UNSPECIFIED ORGANISM Qualifiers: Sepsis type: sepsis due to unspecified organism Qualified Code(s): A41.9 - Sepsis, unspecified organism (6) Anemia Code(s): D64.9 - ANEMIA, UNSPECIFIED Qualifiers: Anemia type: unspecified type Qualified Code(s): D64.9 - Anemia, unspecified
--- NOTE | 2018-09-25 12:25 | PN ---
Progress Note (short form) - Note Progress Note: Patient seen in follow up. No acute events overnight. No new complaints. Ongoing dysphagia. Meds reviewed. Current Medications Generic Name Dose Route Start Last Admin Trade Name Freq PRN Reason Stop Dose Admin Acetaminophen 1,000 mg 09/16/18 10:10 09/16/18 18:37 Ofirmev Injection - IVPB 1,000 mg Q6H PRN Administration FEVER Emollient Ointment 1 applic 09/21/18 12:00 09/25/18 09:34 Aquaphor - TP 1 applic BID [facility] Administration Daptomycin 700 mg/ Sodium 50 mls @ 100 mls/hr 09/15/18 16:30 09/25/18 10:14 Chloride IVPB 100 mls/hr DAILY [facility] Administration Protocol Fluconazole 50 mls @ 50 mls/hr 09/18/18 12:30 09/25/18 09:34 Diflucan 100 Mg/Ns Premixed Ivpb - IVPB 50 mls/hr DAILY [facility] Administration Potassium Chloride 40 meq/ 1,020 mls @ 84 mls/hr 09/20/18 14:58 09/25/18 05: 54 Amino Acids IV 84 mls/hr Q12H [facility]IE Administration Lidocaine/Aluminum/Magnesium/Simeth 5 ml 09/16/18 11:07 09/20/18 10:39 Magic Mouthwash *Sjr Formula* - MM 5 ml Q6HPO PRN Administration ORAL PAIN/MOUTH SORES Metoclopramide HCl 10 mg 09/20/18 18:20 09/20/18 18:52 Reglan Injection - IVPUSH 10 mg Q8H PRN Administration NAUSEA AND/OR VOMITING Metoprolol Tartrate 5 mg 09/18/18 14:00 09/25/18 05:54 Lopressor Injection - IVPB 5 mg TID [facility]IE Administration Morphine Sulfate 4 mg 09/24/18 05:07 Morphine Sulfate IM Q4H PRN PAIN LEVEL 7-10 Multivitamins/Minerals 10 ml 09/19/18 15:30 09/24/18 15:43 Infuvite Adult - IV 10 ml DAILY@1530 [facility] Administration Pantoprazole Sodium 40 mg 09/21/18 10:15 09/25/18 09:34 Protonix Iv IVPUSH 40 mg DAILY [facility] Administration Vancomycin HCl 125 mg 09/16/18 18:00 09/25/18 05:55 Vancomycin Oral Solution PO 125 mg Q6HPO [facility] Administration On exam: Last Vital Signs Temp Pulse Resp BP Pulse Ox 98 F 86 20 109/70 97 09/25/18 07:15 09/25/18 07:15 09/25/18 07:15 09/25/18 07:15 09/24/18 21:00 General: Supine in bed, frail, ill appearing. Extremities: No pallor or icterus. No pedal edema. No palpable lymphadenopathy. CVS: S1, S2, regular, no gallop or murmur. Chest: good air entry bilaterally, clear Abdomen: Not distended, non-tender, no palpable organomegaly. Neuro: interactive, non-focal. Labs reviewed (yesterday) CBC, BMP 09/24/18 06:15 09/24/18 06:15 Impression Metastatic colon cancer - S/P chemotherapy -- FOLFIRI Currently admitted with MRSA sepsis Port infection s/p removal Dysphagia - ?CIDP - trial of IVIG administered recently - unclear benefit. CIDP/dysphagia On ceftraroline/daptomycin/fluconazole/PO vancomycin Prior neutropenia - responded to G-CSF. Thrombocytopenia - stable. Observe. Ongoing supportive care. Ongoing determination if any benefit in placement of PEG, for palliation, in light of overall situation with poor prognosis
[2018-09-25] MEDS: MULTIVIT INJ. ADULT COMBO WITH VIT K 1 COMBO 10 ML VIAL IV SCH (19:18)
[2018-09-26] MEDS: VANCOMYCIN 250 MG/5 ML ORAL SOLUTION PO SCH ×4 (00:17→18:49)
[2018-09-26] MEDS: AMINO ACIDS IV SCH ×4 (00:31→21:47)
[2018-09-26] MEDS: POTASSIUM CHLORIDE IV SCH ×4 (00:31→21:47)
[2018-09-26] MEDS: MULTIVIT INJ. ADULT COMBO WITH VIT K 1 COMBO 10 ML VIAL IV SCH ×3 (00:32→21:48)
[2018-09-26] MEDS: METOPROLOL TARTRATE 5 MG/5 ML VIAL IVPB SCH ×3 (05:27→21:44)
[2018-09-26 07:17] LABS: WHITE BLOOD COUNT 0.7 K/mm3 (4.0-10.0)
[2018-09-26] MEDS ORDERED: PT OWN MED DRAWER 7, Y5N ONE (10:27)
--- NOTE | 2018-09-26 10:27 | PN ---
Progress Note (short form) - Note Progress Note: pt seen/ examined comfortable oncology f/u noted condition same unable to eat. Vital Signs Temp 99.1 F 09/26/18 06:00 Pulse 100 H 09/26/18 06:00 Resp 20 09/26/18 06:00 BP 110/73 09/26/18 06:00 Pulse Ox 97 09/25/18 21:00 Intake & Output 09/25/18 09/25/18 09/26/18 11:59 23:59 11:59 Intake Total 1208 1108 Output Total 500 300 300 Balance -500 908 808 Intake: IV 1008 1008 Clinimix 1000ml @ 84ml 1008 1008 hour IV Q12 JAMIE IVPB 200 100 Output: Urine 500 300 300 Void 500 300 300 Other: Voiding Method Urinal Urinal Diaper # Unmeasured Voids Void 2 Bowel Movement Yes No # Bowel Movements 2 Active Medications Acetaminophen (Ofirmev Injection -) 1,000 mg IVPB Q6H PRN PRN Reason: FEVER Last Admin: 09/16/18 18:37 Dose: 1,000 mg Emollient Ointment (Aquaphor -) 1 applic TP BID [facility] Last Admin: 09/25/18 22:18 Dose: 1 applic Daptomycin 700 mg/ Sodium (Chloride) 50 mls @ 100 mls/hr IVPB DAILY [facility]; Protocol Last Admin: 09/25/18 10:14 Dose: 100 mls/hr Potassium Chloride 40 meq/ (Amino Acids) 1,020 mls @ 84 mls/hr IV Q12H [facility] Last Admin: 09/26/18 05:27 Dose: Not Given Lidocaine/Aluminum/Magnesium/Simeth (Magic Mouthwash *Sjr Formula* -) 5 ml MM Q6HPO PRN PRN Reason: ORAL PAIN/MOUTH SORES Last Admin: 09/20/18 10:39 Dose: 5 ml Metoclopramide HCl (Reglan Injection -) 10 mg IVPUSH Q8H PRN PRN Reason: NAUSEA AND/OR VOMITING Last Admin: 09/20/18 18:52 Dose: 10 mg Metoprolol Tartrate (Lopressor Injection -) 5 mg IVPB TID [facility] Last Admin: 09/26/18 05:27 Dose: 5 mg Morphine Sulfate (Morphine Sulfate) 4 mg IM Q4H PRN PRN Reason: PAIN LEVEL 7-10 Multivitamins/Minerals (Infuvite Adult -) 10 ml IV DAILY@1530 [facility] Last Admin: 09/26/18 00:32 Dose: 10 ml Pantoprazole Sodium (Protonix Iv) 40 mg IVPUSH DAILY [facility] Last Admin: 09/25/18 09:34 Dose: 40 mg Vancomycin HCl (Vancomycin Oral Solution) 125 mg PO Q6HPO [facility] Last Admin: 09/26/18 05:30 Dose: 125 mg CBC, BMP 09/24/18 06:15 09/24/18 06:15 Microbiology 09/22/18 06:45 Blood Culture - Preliminary Blood - Peripheral Venous NO GROWTH OBTAINED AFTER 96 HOURS, INCUBATION TO CONTINUE FOR 1 DAYS. 09/22/18 06:40 Blood Culture - Preliminary Blood - Peripheral Venous NO GROWTH OBTAINED AFTER 96 HOURS, INCUBATION TO CONTINUE FOR 1 DAYS. Physical Exam S1 S2 RRR Lungs decreased breath sounds Abd- soft,tender all areas trace edema A/P overall same IV antibiotics iv anti fungals continue with meds IV fluids-->clinimix pt unable to drink fluids Dysphagia not improving with IVIG eliquis on hold prognosis poor spoke with Oncology consider ?peg tube palliative care Discussed with Toya=-Pt expressed he would like to get everything done. will follow will discuss with Oncology also Problem List - Problems (1) Neutropenic sepsis Code(s): A41.9 - SEPSIS, UNSPECIFIED ORGANISM; D70.9 - NEUTROPENIA, UNSPECIFIED (2) Atrial fibrillation Code(s): I48.91 - UNSPECIFIED ATRIAL FIBRILLATION Qualifiers: Atrial fibrillation type: paroxysmal Qualified Code(s): I48.0 - Paroxysmal atrial fibrillation (3) History of colon cancer Code(s): Z85.038 - PERSONAL HISTORY OF MALIGNANT NEOPLASM OF LARGE INTESTINE (4) Multiple myeloma Code(s): C90.00 - MULTIPLE MYELOMA NOT HAVING ACHIEVED REMISSION Qualifiers: Multiple myeloma remission status: unspecified Qualified Code(s): C90.00 - Multiple myeloma not having achieved remission (5) Sepsis Code(s): A41.9 - SEPSIS, UNSPECIFIED ORGANISM Qualifiers: Sepsis type: sepsis due to unspecified organism Qualified Code(s): A41.9 - Sepsis, unspecified organism (6) Anemia Code(s): D64.9 - ANEMIA, UNSPECIFIED Qualifiers: Anemia type: unspecified type Qualified Code(s): D64.9 - Anemia, unspecified
--- NOTE | 2018-09-26 10:58 | PN ---
Progress Note, TELEPHONE ORDER CLERK ROOM SERVICE - Note Progress Note: Selected Entries 09/26/18 06:00 Temperature 99.1 F Unfortunately no improvement in swallowing function, although pt rarely attempting food/liquid. Cough/heaving results, c/w hypersensitivity. Trial of Magic Mouthwash did not improve tolerance. Similar history a year ago, requiring PEG which he was able to be weaned off of as PO tolerance improved. At that time, pt had oral loki, and probably esophageal as well, when seen as out pt MBS from [place]. Recent oral loki noted/treated. Metastatic colon cancer - S/P chemotherapy -- FOLFIRI Currently admitted with MRSA sepsis Port infection s/p removal Prognosis? PEG for palliation? Pt wants everything done/full code. PEG re-insertion being considered via IR. f/u by Palliative care.
--- NOTE | 2018-09-26 11:12 | PN ---
Progress Note, Physician History of Present Illness: Dysphagia persists despite IVIG and Diflucan, diarrhea resolving. Bld cx 09/17 has cleared c/w line sepsis, swallowing sips of water. - Current Medication List Current Medications: Active Medications Acetaminophen (Ofirmev Injection -) 1,000 mg IVPB Q6H PRN PRN Reason: FEVER Last Admin: 09/16/18 18:37 Dose: 1,000 mg Emollient Ointment (Aquaphor -) 1 applic TP BID [facility] Last Admin: 09/25/18 22:18 Dose: 1 applic Daptomycin 700 mg/ Sodium (Chloride) 50 mls @ 100 mls/hr IVPB DAILY [facility]; Protocol Last Admin: 09/25/18 10:14 Dose: 100 mls/hr Potassium Chloride 40 meq/ (Amino Acids) 1,020 mls @ 84 mls/hr IV Q12H [facility] Last Admin: 09/26/18 05:27 Dose: Not Given Lidocaine/Aluminum/Magnesium/Simeth (Magic Mouthwash *Sjr Formula* -) 5 ml MM Q6HPO PRN PRN Reason: ORAL PAIN/MOUTH SORES Last Admin: 09/20/18 10:39 Dose: 5 ml Metoclopramide HCl (Reglan Injection -) 10 mg IVPUSH Q8H PRN PRN Reason: NAUSEA AND/OR VOMITING Last Admin: 09/20/18 18:52 Dose: 10 mg Metoprolol Tartrate (Lopressor Injection -) 5 mg IVPB TID [facility] Last Admin: 09/26/18 05:27 Dose: 5 mg Morphine Sulfate (Morphine Sulfate) 4 mg IM Q4H PRN PRN Reason: PAIN LEVEL 7-10 Multivitamins/Minerals (Infuvite Adult -) 10 ml IV DAILY@1530 [facility] Last Admin: 09/26/18 00:32 Dose: 10 ml Pantoprazole Sodium (Protonix Iv) 40 mg IVPUSH DAILY [facility] Last Admin: 09/25/18 09:34 Dose: 40 mg Vancomycin HCl (Vancomycin Oral Solution) 125 mg PO Q6HPO [facility] Last Admin: 09/26/18 05:30 Dose: 125 mg - Objective Vital Signs: Vital Signs Temperature 99.1 F 09/26/18 06:00 Pulse Rate 100 H 09/26/18 06:00 Respiratory Rate 20 09/26/18 06:00 Blood Pressure 110/73 09/26/18 06:00 O2 Sat by Pulse Oximetry (%) 97 09/25/18 21:00 Constitutional: Yes: No Distress, Calm Neck: Yes: Supple Cardiovascular: Yes: Regular Rate and Rhythm Respiratory: Yes: Regular, Diminished Gastrointestinal: Yes: Soft, Hypoactive Bowel Sounds Edema: No Labs: CBC, BMP 09/24/18 06:15 09/24/18 06:15 INR, PTT INR 1.08 (0.83-1.09) 09/21/18 06:38 Fibrinogen 442.0 mg/dL (238-498) 09/15/18 15:00 Problem List - Problems (1) Atrial fibrillation Code(s): I48.91 - UNSPECIFIED ATRIAL FIBRILLATION Qualifiers: Atrial fibrillation type: paroxysmal Qualified Code(s): I48.0 - Paroxysmal atrial fibrillation (2) Dysphagia, oropharyngeal phase Code(s): R13.12 - DYSPHAGIA, OROPHARYNGEAL PHASE (3) MRSA (methicillin resistant staph aureus) culture positive Code(s): Z22.322 - CARRIER OR SUSPECTED CARRIER OF METHICILLIN RESIS STAPH (4) Multiple myeloma Code(s): C90.00 - MULTIPLE MYELOMA NOT HAVING ACHIEVED REMISSION Qualifiers: Multiple myeloma remission status: unspecified Qualified Code(s): C90.00 - Multiple myeloma not having achieved remission (5) CAD (coronary artery disease) Code(s): I25.10 - ATHSCL HEART DISEASE OF [place] CORONARY ARTERY W/O ANG PCTRS Qualifiers: Coronary Disease-Associated Artery/Lesion type: [place] artery [place] vs. transplanted heart: [place] heart Associated angina: without angina Qualified Code(s): I25.10 - Atherosclerotic heart disease of [place] coronary artery without angina pectoris (6) CIDP (chronic inflammatory demyelinating polyneuropathy) Code(s): G61.81 - CHRONIC INFLAMMATORY DEMYELINATING POLYNEURITIS (7) Diabetes mellitus Code(s): E11.9 - TYPE 2 DIABETES MELLITUS WITHOUT COMPLICATIONS Qualifiers: Diabetes mellitus type: type 2 Diabetes mellitus custodial insulin use: without custodial use Diabetes mellitus complication status: without complication Qualified Code(s): E11.9 - Type 2 diabetes mellitus without complications (8) Diastolic dysfunction Code(s): I51.9 - HEART DISEASE, UNSPECIFIED (9) HTN (hypertension) Code(s): I10 - ESSENTIAL (PRIMARY) HYPERTENSION Qualifiers: Hypertension type: essential hypertension Qualified Code(s): I10 - Essential (primary) hypertension (10) Hypercholesterolemia Code(s): E78.00 - PURE HYPERCHOLESTEROLEMIA, UNSPECIFIED Assessment/Plan 09/14/2018 Echo: Mild cLVH, LVEF 60%, mild MR, can't r/o endocarditis 1. MRSA bacteremia post port removal c/w line sepsis given bld cx clearance 2. Pancytopenia with POOR RESPONSE TO NEUPOGEN AND BLOOD TRANSFUSION, history of multiple myeloma post stem cell transplant 3. cdiff antigen with diarrhea- on po vancomycin 4. metastatic colon cancer with rt. lobe of liver metastasis S/P chemotherapy - - FOLFIRI 5. 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 CAD, angina pectoris 7. Diastolic dysfunction 8. Paroxysmal atrial fibrillation currently in sinus rhythm [id number] score of 3, off A/C therapy with NOAC (Eliquis) 9. Hypertension 10. DM 11. Hypercholesterolemia P:1. RANDY no longer indicated with clearance of 09/17 bld cx post port removal c/ w line sepsis, continue abx course per ID f/u 09/22 surveillance cultures 2. IV Lopressor for rate-control 3. Post IVIG, magic mouthwash and Diflucan for dysphagia, possible oral thrush, contemplating IR-placed gastrotomy tube reinsertion if dysphagia persists 4. Neupogen, GI protection
--- NOTE | 2018-09-26 11:15 | PN ---
Progress Note (short form) - Note Progress Note: Resting in NAD. No acute events overnight. Most recent blood cultures (-). Intake & Output 09/23/18 09/24/18 09/25/18 09/26/18 23:59 23:59 23:59 23:59 Intake Total 2550 1864 1208 1108 Output Total 500 800 300 Balance 2049 1864 408 808 Weight 196 lb 3 oz 195 lb 6 oz Last Vital Signs Temp Pulse Resp BP Pulse Ox 99.1 F 100 H 20 110/73 97 09/26/18 06:00 09/26/18 06:00 09/26/18 06:00 09/26/18 06:00 09/25/18 21:00 Active Medications Acetaminophen (Ofirmev Injection -) 1,000 mg IVPB Q6H PRN PRN Reason: FEVER Last Admin: 09/16/18 18:37 Dose: 1,000 mg Emollient Ointment (Aquaphor -) 1 applic TP BID [facility] Last Admin: 09/25/18 22:18 Dose: 1 applic Daptomycin 700 mg/ Sodium (Chloride) 50 mls @ 100 mls/hr IVPB DAILY [facility]; Protocol Last Admin: 09/25/18 10:14 Dose: 100 mls/hr Potassium Chloride 40 meq/ (Amino Acids) 1,020 mls @ 84 mls/hr IV Q12H [facility] Last Admin: 09/26/18 05:27 Dose: Not Given Lidocaine/Aluminum/Magnesium/Simeth (Magic Mouthwash *Sjr Formula* -) 5 ml MM Q6HPO PRN PRN Reason: ORAL PAIN/MOUTH SORES Last Admin: 09/20/18 10:39 Dose: 5 ml Metoclopramide HCl (Reglan Injection -) 10 mg IVPUSH Q8H PRN PRN Reason: NAUSEA AND/OR VOMITING Last Admin: 09/20/18 18:52 Dose: 10 mg Metoprolol Tartrate (Lopressor Injection -) 5 mg IVPB TID [facility] Last Admin: 09/26/18 05:27 Dose: 5 mg Morphine Sulfate (Morphine Sulfate) 4 mg IM Q4H PRN PRN Reason: PAIN LEVEL 7-10 Multivitamins/Minerals (Infuvite Adult -) 10 ml IV DAILY@1530 [facility] Last Admin: 09/26/18 00:32 Dose: 10 ml Pantoprazole Sodium (Protonix Iv) 40 mg IVPUSH DAILY [facility] Last Admin: 09/25/18 09:34 Dose: 40 mg Vancomycin HCl (Vancomycin Oral Solution) 125 mg PO Q6HPO [facility] Last Admin: 09/26/18 05:30 Dose: 125 mg Gen: Awake and alert, NAD at rest Neck: (-) JVD Heart: RRR Lung: few scattered rhonchi, decreased breath sounds at the bases Abd: soft, nontender Ext: no edema Laboratory Results - last 24 hr 09/16/18 05:15 WBC 0.7 L* ASSESSMENT AND PLAN: MRSA Bacteremia Suspected Port Infection +C diff Ag Neutropenic Sepsis Thrombocytopenia Anemia Metastatic Colon Ca on chemotherapy Multiple Myeloma Atrial Fibrillation HTN DM ABX per ID Normal transfusion thresholds O2 as needed VTE prophylaxis Dr Patterson
[2018-09-26] MEDS: MINERAL OIL/PET HY-PHL TOPICAL OINTMENT 454 GM JAR TP SCH ×2 (11:27→21:46)
[2018-09-26] MEDS: DAPTOMYCIN 700 MG in SODIUM CHLORIDE 50 ML IVPB SCH (11:27)
[2018-09-26] MEDS: PANTOPRAZOLE SODIUM 40 MG VIAL IVPUSH SCH (11:27)
[2018-09-26] MEDS: MAG HYDROX/ALH/SMC/DPHA/LIDO 240 ML MOUTHWASH MM PRN (12:01)
--- NOTE | 2018-09-26 19:57 | PN ---
Progress Note (short form) - Note Progress Note: Patien seen and examined generalized weakness oriented in person, place Last Vital Signs Temp Pulse Resp BP Pulse Ox 97.7 F 105 H 20 121/75 97 09/26/18 15:09 09/26/18 15:09 09/26/18 15:09 09/26/18 15:09 09/25/18 21:00 Cor: RSR, No murmurs, No gallops Lungs: Clear to P&A Abd: Soft, Normal bowel sounds, No organomegaly Ext:No significant edema Abnormal Lab Results 09/16/18 05:15 WBC 0.7 L* Active Medications Generic Name Dose Route Start Last Admin Trade Name Freq PRN Reason Stop Dose Admin Acetaminophen 1,000 mg 09/16/18 10:10 09/16/18 18:37 Ofirmev Injection - IVPB 1,000 mg Q6H PRN Administration FEVER Emollient Ointment 1 applic 09/21/18 12:00 09/26/18 11:27 Aquaphor - TP 1 applic BID [facility] Administration Daptomycin 700 mg/ Sodium 50 mls @ 100 mls/hr 09/15/18 16:30 09/26/18 11:27 Chloride IVPB 100 mls/hr DAILY [facility] Administration Protocol Potassium Chloride 40 meq/ 1,020 mls @ 84 mls/hr 09/20/18 14:58 09/26/18 18: 50 Amino Acids IV Not Given Q12H [facility] Lidocaine/Aluminum/Magnesium/Simeth 5 ml 09/16/18 11:07 09/26/18 12:01 Magic Mouthwash *Sjr Formula* - MM 5 ml Q6HPO PRN Administration ORAL PAIN/MOUTH SORES Metoclopramide HCl 10 mg 09/20/18 18:20 09/20/18 18:52 Reglan Injection - IVPUSH 10 mg Q8H PRN Administration NAUSEA AND/OR VOMITING Metoprolol Tartrate 5 mg 09/18/18 14:00 09/26/18 14:27 Lopressor Injection - IVPB 5 mg TID [facility] Administration Morphine Sulfate 4 mg 09/24/18 05:07 Morphine Sulfate IM Q4H PRN PAIN LEVEL 7-10 Multivitamins/Minerals 10 ml 09/19/18 15:30 09/26/18 19:45 Infuvite Adult - IV Not Given DAILY@1530 [facility] Pantoprazole Sodium 40 mg 09/21/18 10:15 09/26/18 11:27 Protonix Iv IVPUSH 40 mg DAILY [facility] Administration Vancomycin HCl 125 mg 09/16/18 18:00 09/26/18 18:49 Vancomycin Oral Solution PO 125 mg Q6HPO [facility] Administration A/P 72 y/o patient with MRSA sepsis Port infection S/P removal Colon ca S/P chemotherapy -- FOLFIRI Dysphagia Pancytopenia- s/p platelets Recovery of WBC with neupogen CIDP/dysphagia monitor thrombocyopenia/anemia on clinimix request ID f/u regarding thrush continue current supportive care
[2018-09-27] MEDS: VANCOMYCIN 250 MG/5 ML ORAL SOLUTION PO SCH ×3 (00:20→13:29)
[2018-09-27] MEDS: AMINO ACIDS IV SCH (06:35)
[2018-09-27] MEDS: POTASSIUM CHLORIDE IV SCH (06:35)
[2018-09-27] MEDS: METOPROLOL TARTRATE 5 MG/5 ML VIAL IVPB SCH ×3 (06:36→21:21)
[2018-09-27 08:50] LABS: ALBUMIN 2.9 g/dl (3.4-5.0); BILIRUBIN,TOTAL 0.7 mg/dL (0.2-1); BLOOD UREA NITROGEN 21.8 mg/dL (7-18); CREATININE 1.1 mg/dL (0.55-1.3); POTASSIUM 3.9 mmol/L (3.5-5.1); TOT PROT 8.5 g/dl (6.4-8.2)
[2018-09-27 08:58] LABS: BASO % 1.6 % (0-2.0); EOS % 0.9 % (0-4.5); HEMATOCRIT 37.4 % (35.4-49); HEMOGLOBIN 12.2 GM/dL (11.7-16.9); LYMPH % 27.7 % (8-40); MCHC 32.7 g/dl (32.0-35.9); MEAN CELL VOLUME 88.5 fl (80-96); MEAN PLT VOLUME 11.4 fl (7.5-11.1); NEUT % 49.8 % (42.8-82.8); PLATELET COUNT 71 K/MM3 (134-434); RBC 4.22 M/mm3 (4.00-5.60); RDW 18.7 % (11.9-15.9); WHITE BLOOD COUNT 5.7 K/mm3 (4.0-10.0)
--- NOTE | 2018-09-27 10:41 | PN ---
Progress Note, POLITICAL GEOGRAPHER - Note Progress Note: Nursing reports IV infiltrated with poor IV access. Pt now with thick white coating on tongue, c/w thrush. Pt no longer on IV Diflucan. Has Magic Mouthwash ordered. Clinimix Pt reported that he tolerated a couple of tsp of pudding and water yesterday. Pt says he will try jello and [place]ic Ices later. IMP: Dysphagia with Hypersensitivity Recurrent oral thrush/ likely Esophageal candidiasis as well. Some coming off with mouth care. Poor IV access. Poor nutitional intake. Pending PEG REC: Jenifer mgmt by medical team : Consider-Trial of magic mouthwash/[place] then swallow.Consider Swish and swallow , thickened. Seated fully upright. Small sips, swish, let sit on tongue/buccal cavity, chin tuck/swallow hard. Trial of PO as tolerated-jello and [place] Ices (These are thin liquids but this is only food pt is willing to try. 2calHN/Magiccup, if accepted and tolerated.
[2018-09-27] MEDS: MINERAL OIL/PET HY-PHL TOPICAL OINTMENT 454 GM JAR TP SCH ×2 (10:46→23:02)
[2018-09-27 12:14] LABS: ANISOCYTOSIS 1+; MACROCYTOSIS 0; PLATELET ESTIMATE DECREASED
[2018-09-27] MEDS ORDERED: PT OWN MED DRAWER 7, Y5N ONE ×3 (12:23→18:14)
--- NOTE | 2018-09-27 13:13 | PN ---
Problem List - Problems (1) Neutropenic sepsis Code(s): A41.9 - SEPSIS, UNSPECIFIED ORGANISM; D70.9 - NEUTROPENIA, UNSPECIFIED (2) Atrial fibrillation Code(s): I48.91 - UNSPECIFIED ATRIAL FIBRILLATION Qualifiers: Atrial fibrillation type: paroxysmal Qualified Code(s): I48.0 - Paroxysmal atrial fibrillation (3) History of colon cancer Code(s): Z85.038 - PERSONAL HISTORY OF MALIGNANT NEOPLASM OF LARGE INTESTINE (4) Multiple myeloma Code(s): C90.00 - MULTIPLE MYELOMA NOT HAVING ACHIEVED REMISSION Qualifiers: Multiple myeloma remission status: unspecified Qualified Code(s): C90.00 - Multiple myeloma not having achieved remission (5) Sepsis Code(s): A41.9 - SEPSIS, UNSPECIFIED ORGANISM Qualifiers: Sepsis type: sepsis due to unspecified organism Qualified Code(s): A41.9 - Sepsis, unspecified organism (6) Anemia Code(s): D64.9 - ANEMIA, UNSPECIFIED Qualifiers: Anemia type: unspecified type Qualified Code(s): D64.9 - Anemia, unspecified
--- NOTE | 2018-09-27 13:52 | PN ---
Progress Note (short form) - Note Progress Note: feels weak no diarrhea has mouth sores decreased appetite nausea+ ate only two spoons of pudding lost iv access Vital Signs - 24 hr 09/26/18 09/26/18 09/26/18 14:27 15:09 20:54 Temperature 97.7 F 97.9 F Pulse Rate 105 H 105 H 105 H Respiratory 20 20 Rate Blood Pressure 121/75 121/75 125/75 O2 Sat by Pulse Oximetry (%) 09/26/18 09/26/18 09/26/18 21:00 21:44 23:21 Temperature 97.8 F Pulse Rate 105 H Respiratory 20 Rate Blood Pressure 125/75 128/72 O2 Sat by Pulse 97 Oximetry (%) 09/27/18 09/27/18 09/27/18 06:00 06:36 09:20 Temperature 98.4 F 97 F L Pulse Rate 96 H 70 Respiratory 20 20 Rate Blood Pressure 120/88 126/80 110/90 O2 Sat by Pulse Oximetry (%) Current Medications Generic Name Dose Route Start Last Admin Trade Name Freq PRN Reason Stop Dose Admin Acetaminophen 1,000 mg 09/16/18 10:10 09/16/18 18:37 Ofirmev Injection - IVPB 1,000 mg Q6H PRN Administration FEVER Emollient Ointment 1 applic 09/21/18 12:00 09/27/18 10:46 Aquaphor - TP 1 applic BID [facility] Administration Daptomycin 700 mg/ Sodium 50 mls @ 100 mls/hr 09/15/18 16:30 09/26/18 11:27 Chloride IVPB 100 mls/hr DAILY [facility] Administration Protocol Potassium Chloride 40 meq/ 1,020 mls @ 84 mls/hr 09/20/18 14:58 09/27/18 06: 35 Amino Acids IV Not Given Q12H [facility] Lidocaine/Aluminum/Magnesium/Simeth 5 ml 09/16/18 11:07 09/26/18 12:01 Magic Mouthwash *Sjr Formula* - MM 5 ml Q6HPO PRN Administration ORAL PAIN/MOUTH SORES Metoclopramide HCl 10 mg 09/20/18 18:20 09/20/18 18:52 Reglan Injection - IVPUSH 10 mg Q8H PRN Administration NAUSEA AND/OR VOMITING Metoprolol Tartrate 5 mg 09/18/18 14:00 09/27/18 06:36 Lopressor Injection - IVPB 5 mg TID [facility] Administration Multivitamins/Minerals 10 ml 09/19/18 15:30 09/26/18 21:48 Infuvite Adult - IV 10 ml DAILY@1530 [facility] Administration Pantoprazole Sodium 40 mg 09/21/18 10:15 09/26/18 11:27 Protonix Iv IVPUSH 40 mg DAILY [facility] Administration Vancomycin HCl 125 mg 09/16/18 18:00 09/27/18 13:29 Vancomycin Oral Solution PO 125 mg Q6HPO [facility] Administration Laboratory Results - last 24 hr 09/27/18 09/27/18 06:30 06:30 WBC 5.7 RBC 4.22 Hgb 12.2 Hct 37.4 MCV 88.5 MCH 29.0 MCHC 32.7 RDW 18.7 H Plt Count 71 L D MPV 11.4 H D Absolute Neuts (auto) 2.8 Neutrophils % 49.8 D Neutrophils % (Manual) 41.0 L D Band Neutrophils % 0.0 Lymphocytes % 27.7 D Lymphocytes % (Manual) 27.0 D Monocytes % 20.0 H D Monocytes % (Manual) 23 H Eosinophils % 0.9 Eosinophils % (Manual) 0.0 D Basophils % 1.6 Basophils % (Manual) 3.0 H Myelocytes % (Man) 4 H D Promyelocytes % (Man) 0 D Blast Cells % (Manual) 0 Nucleated RBC % 1 H Metamyelocytes 2 D Hypochromia 0 Platelet Estimate Decreased Platelet Comment Present Polychromasia 0 Poikilocytosis 0 Anisocytosis 1+ Microcytosis 1+ Macrocytosis 0 Sodium 134 L Potassium 3.9 Chloride 106 Carbon Dioxide 17 L Anion Gap 11 BUN 21.8 H Creatinine 1.1 Est GFR (CKD-EPI)AfAm 77.32 Est GFR (CKD-EPI)NonAf 66.71 Random Glucose 171 H Calcium 10.0 Total Bilirubin 0.7 AST 43 H ALT 44 Alkaline Phosphatase 200 H Total Protein 8.5 H Albumin 2.9 L S1 S2 RRR Pale Lungs decreased breath sounds Abd- soft,tender all areas trace edema needs iv access-- will call IR wants to discuss with Neurology about feeding tube IV antibiotics iv antifungals pt refused PO vanco -- couldn't swallow Cardiology evaluation for RANDY -- PT is high risk candidate continue with meds IV fluids-->clinimix Dysphagia not improving with IVIG eliquis on hold prognosis poor consider ?peg tube Problem List - Problems (1) Neutropenic sepsis Code(s): A41.9 - SEPSIS, UNSPECIFIED ORGANISM; D70.9 - NEUTROPENIA, UNSPECIFIED (2) Atrial fibrillation Code(s): I48.91 - UNSPECIFIED ATRIAL FIBRILLATION Qualifiers: Atrial fibrillation type: paroxysmal Qualified Code(s): I48.0 - Paroxysmal atrial fibrillation (3) History of colon cancer Code(s): Z85.038 - PERSONAL HISTORY OF MALIGNANT NEOPLASM OF LARGE INTESTINE (4) Multiple myeloma Code(s): C90.00 - MULTIPLE MYELOMA NOT HAVING ACHIEVED REMISSION Qualifiers: Multiple myeloma remission status: unspecified Qualified Code(s): C90.00 - Multiple myeloma not having achieved remission (5) Sepsis Code(s): A41.9 - SEPSIS, UNSPECIFIED ORGANISM Qualifiers: Sepsis type: sepsis due to unspecified organism Qualified Code(s): A41.9 - Sepsis, unspecified organism (6) Anemia Code(s): D64.9 - ANEMIA, UNSPECIFIED Qualifiers: Anemia type: unspecified type Qualified Code(s): D64.9 - Anemia, unspecified
--- NOTE | 2018-09-27 15:39 | PN ---
Progress Note, Physician History of Present Illness: AWAKE, ALERT IN BED STILL WITH DYSPHAGIA TEMPS REMAIN DOWN AFEBRILE WBC IMPROVED PLT IMPROVED REPEAT BC (09/22) PRELIM NEGATIVE - Current Medication List Current Medications: Active Medications Acetaminophen (Ofirmev Injection -) 1,000 mg IVPB Q6H PRN PRN Reason: FEVER Last Admin: 09/16/18 18:37 Dose: 1,000 mg Emollient Ointment (Aquaphor -) 1 applic TP BID [facility] Last Admin: 09/27/18 10:46 Dose: 1 applic Daptomycin 700 mg/ Sodium (Chloride) 50 mls @ 100 mls/hr IVPB DAILY [facility]; Protocol Last Admin: 09/26/18 11:27 Dose: 100 mls/hr Lidocaine/Aluminum/Magnesium/Simeth (Magic Mouthwash *Sjr Formula* -) 5 ml MM Q6HPO PRN PRN Reason: ORAL PAIN/MOUTH SORES Last Admin: 09/26/18 12:01 Dose: 5 ml Metoclopramide HCl (Reglan Injection -) 10 mg IVPUSH Q8H PRN PRN Reason: NAUSEA AND/OR VOMITING Last Admin: 09/20/18 18:52 Dose: 10 mg Metoprolol Tartrate (Lopressor Injection -) 5 mg IVPB TID [facility] Last Admin: 09/27/18 06:36 Dose: 5 mg Multivitamins/Minerals (Infuvite Adult -) 10 ml IV DAILY@1530 [facility] Last Admin: 09/26/18 21:48 Dose: 10 ml Pantoprazole Sodium (Protonix Iv) 40 mg IVPUSH DAILY [facility] Last Admin: 09/26/18 11:27 Dose: 40 mg - Objective Vital Signs: Vital Signs Temperature 97.4 F L 09/27/18 14:37 Pulse Rate 112 H 09/27/18 14:37 Respiratory Rate 20 09/27/18 14:37 Blood Pressure 124/75 09/27/18 14:37 O2 Sat by Pulse Oximetry (%) 97 09/26/18 21:00 Constitutional: Yes: No Distress Eyes: Yes: Conjunctiva Clear HENT: Yes: Thrush, Other (TONGUE WITH WHITE COATING) Cardiovascular: Yes: Regular Rate and Rhythm, S1, S2 Respiratory: Yes: Diminished Gastrointestinal: Yes: Normal Bowel Sounds, Soft, Abdomen, Obese Edema: LUE: 1+, RUE: 1+, LLE: 1+, RLE: 1+ Labs: CBC, BMP 09/27/18 06:30 09/27/18 06:30 INR, PTT INR 1.08 (0.83-1.09) 09/21/18 06:38 Fibrinogen 442.0 mg/dL (238-498) 09/15/18 15:00 Assessment/Plan MRSA BACTEREMIA/ SEPSIS PROBABLE INFECTED PORT S/P REMOVAL THROMBOCYTOPENIA + C DIFF AZOTEMIA IMPROVED METASTATIC CA S/P CHEMO DYSPHAGIA/ THRUSH ? AZOL RESISTANT MER CONTINUE DAPTOMYCIN TRIAL OF CANCIDAS PROGNOSIS GUARDED
[2018-09-27] MEDS ORDERED: CASPOFUNGIN ACETATE 70 MG in SODIUM CHLORIDE 250 ML IVPB ONE (16:00)
--- NOTE | 2018-09-27 17:35 | PN ---
Progress Note (short form) - Note Progress Note: Patient seen and examined Still with dysphagia Still with thrush Diarrhea improved NO IV access Last Vital Signs Temp Pulse Resp BP Pulse Ox 97.4 F L 112 H 20 124/75 97 09/27/18 14:37 09/27/18 14:37 09/27/18 14:37 09/27/18 14:37 09/26/18 21:00 HEENT: anisocoria Oropharynx: thrush, No mucositis Cor: RSR, No murmurs, No gallops Lungs:poor inspiratory effort Abd: Soft, Normal bowel sounds, No organomegaly Ext:No significant edema Skin: No rashes, Integument intact CBC, BMP 09/27/18 06:30 09/27/18 06:30 Current Medications Generic Name Dose Route Start Last Admin Trade Name Freq PRN Reason Stop Dose Admin Acetaminophen 1,000 mg 09/16/18 10:10 09/16/18 18:37 Ofirmev Injection - IVPB 1,000 mg Q6H PRN Administration FEVER Emollient Ointment 1 applic 09/21/18 12:00 09/27/18 10:46 Aquaphor - TP 1 applic BID [facility] Administration Daptomycin 700 mg/ Sodium 50 mls @ 100 mls/hr 09/15/18 16:30 09/26/18 11:27 Chloride IVPB 100 mls/hr DAILY [facility] Administration Protocol Lidocaine/Aluminum/Magnesium/Simeth 5 ml 09/16/18 11:07 09/26/18 12:01 Magic Mouthwash *Sjr Formula* - MM 5 ml Q6HPO PRN Administration ORAL PAIN/MOUTH SORES Metoclopramide HCl 10 mg 09/20/18 18:20 09/20/18 18:52 Reglan Injection - IVPUSH 10 mg Q8H PRN Administration NAUSEA AND/OR VOMITING Metoprolol Tartrate 5 mg 09/18/18 14:00 09/27/18 06:36 Lopressor Injection - IVPB 5 mg TID [facility] Administration Multivitamins/Minerals 10 ml 09/19/18 15:30 09/26/18 21:48 Infuvite Adult - IV 10 ml DAILY@1530 [facility] Administration Pantoprazole Sodium 40 mg 09/21/18 10:15 09/26/18 11:27 Protonix Iv IVPUSH 40 mg DAILY [facility] Administration Impression: MRSA sepsis ?port source- removed Dysphagia Thrush C. diff Anemia Thrombocytpenia Currently IV access problematic ? reinsert port or central line with platelet coverage when cleared by ID Ab per ID PT- needs aggressive therapy
[2018-09-27] MEDS: DAPTOMYCIN 700 MG in SODIUM CHLORIDE 50 ML IVPB SCH (17:43)
[2018-09-27] MEDS: MULTIVIT INJ. ADULT COMBO WITH VIT K 1 COMBO 10 ML VIAL IV SCH (18:19)
[2018-09-27] MEDS: PANTOPRAZOLE SODIUM 40 MG VIAL IVPUSH SCH (18:42)
[2018-09-28] MEDS: METOPROLOL TARTRATE 5 MG/5 ML VIAL IVPB SCH ×3 (06:06→21:33)
[2018-09-28 07:44] LABS: ALBUMIN 2.8 g/dl (3.4-5.0); BILIRUBIN,TOTAL 0.6 mg/dL (0.2-1); BLOOD UREA NITROGEN 22.8 mg/dL (7-18); CALCIUM 9.6 mg/dL (8.5-10.1); CREATININE 1.1 mg/dL (0.55-1.3); POTASSIUM 3.9 mmol/L (3.5-5.1); TOT PROT 7.8 g/dl (6.4-8.2)
[2018-09-28 08:13] LABS: BASO % 1.7 % (0-2.0); EOS % 0.2 % (0-4.5); HEMOGLOBIN 11.7 GM/dL (11.7-16.9); LYMPH % 24.1 % (8-40); MCHC 32.6 g/dl (32.0-35.9); MEAN CELL VOLUME 89.1 fl (80-96); MEAN PLT VOLUME 10.7 fl (7.5-11.1); MONO % 22.1 % (3.8-10.2); NEUT % 51.9 % (42.8-82.8); PLATELET COUNT 75 K/MM3 (134-434); RBC 4.04 M/mm3 (4.00-5.60); RDW 19.6 % (11.9-15.9); WHITE BLOOD COUNT 4.2 K/mm3 (4.0-10.0)
[2018-09-28 09:46] LABS: ANISOCYTOSIS 1+; MACROCYTOSIS 0; OVALOCYTE 1+; PLATELET ESTIMATE DECREASED; TEAR DROP CELLS 1+
[2018-09-28] MEDS: PANTOPRAZOLE SODIUM 40 MG VIAL IVPUSH SCH (10:24)
[2018-09-28] MEDS: MINERAL OIL/PET HY-PHL TOPICAL OINTMENT 454 GM JAR TP SCH ×2 (10:24→21:35)
--- NOTE | 2018-09-28 11:50 | PN ---
Progress Note, SUPPORT REPRESENTATIVE - Note Progress Note: Tongue looks less coated with mouth care. Medication for thrush not ordered. Suggest mouth care/reassess by MD regarding indication for medical mgmt. Consider, if indicated-Trial of magic mouthwash/[place] then swallow.Consider Swish and swallow, thickened. Seated fully upright. Small sips, swish, let sit on tongue/buccal cavity, chin tuck/swallow hard. Pt reports tolerating 2 tsn of [place] pudding yesterday. He said he stopped because he started coughing. His reports that he now tolerates sips of water. Pt remained flat, eyes closed. Not motivated to try food/liquid at this time. Pt agreed to trial of yogurt. suggested trying 1/2 tsps repeatedly throughout the day for possible desensitiztion and to improve swallowing function.
[2018-09-28] MEDS: DAPTOMYCIN 700 MG in SODIUM CHLORIDE 50 ML IVPB SCH (12:14)
--- NOTE | 2018-09-28 13:28 | PN ---
Progress Note (short form) - Note Progress Note: feels weak no diarrhea has mouth sores decreased appetite nausea+ again ate only two spoons of pudding per , small amount of water today Vital Signs - 24 hr 09/27/18 09/27/18 09/27/18 14:37 21:00 21:21 Temperature 97.4 F L Pulse Rate 112 H 106 H Respiratory 20 Rate Blood Pressure 124/75 125/76 O2 Sat by Pulse 97 Oximetry (%) 09/27/18 09/28/18 09/28/18 22:00 06:00 06:06 Temperature 98.2 F Pulse Rate 106 H 88 88 Respiratory 20 Rate Blood Pressure 125/76 118/76 118/76 O2 Sat by Pulse Oximetry (%) Current Medications Generic Name Dose Route Start Last Admin Trade Name Freq PRN Reason Stop Dose Admin Acetaminophen 1,000 mg 09/16/18 10:10 09/16/18 18:37 Ofirmev Injection - IVPB 1,000 mg Q6H PRN Administration FEVER Emollient Ointment 1 applic 09/21/18 12:00 09/28/18 10:24 Aquaphor - TP 1 applic BID JAMIE Administration IV Flush 4 ml 09/28/18 13:05 Triple Lumen Flush IVPUSH PRN PRN Protocol Daptomycin 700 mg/ Sodium 50 mls @ 100 mls/hr 09/15/18 16:30 09/28/18 12:14 Chloride IVPB 100 mls/hr DAILY JAMIE Administration Protocol Lidocaine/Aluminum/Magnesium/Simeth 5 ml 09/16/18 11:07 09/26/18 12:01 Magic Mouthwash *Sjr Formula* - MM 5 ml Q6HPO PRN Administration ORAL PAIN/MOUTH SORES Metoclopramide HCl 10 mg 09/20/18 18:20 09/20/18 18:52 Reglan Injection - IVPUSH 10 mg Q8H PRN Administration NAUSEA AND/OR VOMITING Metoprolol Tartrate 5 mg 09/18/18 14:00 09/28/18 06:06 Lopressor Injection - IVPB 5 mg TID JAMIE Administration Multivitamins/Minerals 10 ml 09/19/18 15:30 09/27/18 18:19 Infuvite Adult - IV Not Given DAILY@1530 [facility] Nystatin 500,000 units 09/28/18 18:00 Nystatin Oral Suspension - PO Q6HPO [facility] Pantoprazole Sodium 40 mg 09/21/18 10:15 09/28/18 10:24 Protonix Iv IVPUSH 40 mg DAILY [facility] Administration Laboratory Results - last 24 hr 09/28/18 09/28/18 09/28/18 05:38 05:38 05:38 WBC 4.2 RBC 4.04 Hgb 11.7 Hct 36.0 MCV 89.1 MCH 29.0 MCHC 32.6 RDW 19.6 H Plt Count 75 L MPV 10.7 Absolute Neuts (auto) 2.2 Neutrophils % 51.9 Neutrophils % (Manual) 40.2 L Band Neutrophils % 0.0 Lymphocytes % 24.1 Lymphocytes % (Manual) 26.8 Monocytes % 22.1 H Monocytes % (Manual) 22 H Eosinophils % 0.2 Eosinophils % (Manual) 0.0 Basophils % 1.7 Basophils % (Manual) 1.0 Myelocytes % (Man) 8 H D Promyelocytes % (Man) 0 Blast Cells % (Manual) 0 Nucleated RBC % 1 H Metamyelocytes 0 D Hypochromia 0 Platelet Estimate Decreased Polychromasia 1+ Poikilocytosis 1+ Anisocytosis 1+ Microcytosis 1+ Macrocytosis 0 Tear Drop Cells 1+ Ovalocytes 1+ Sodium 137 Potassium 3.9 Chloride 107 Carbon Dioxide 21 Anion Gap 9 BUN 22.8 H Creatinine 1.1 Est GFR (CKD-EPI)AfAm 77.32 Est GFR (CKD-EPI)NonAf 66.71 Random Glucose 126 H Calcium 9.6 Total Bilirubin 0.6 AST 52 H ALT 48 Alkaline Phosphatase 199 H Creatine Kinase 79 Total Protein 7.8 Albumin 2.8 L S1 S2 RRR Pale Lungs decreased breath sounds Abd- soft,tender all areas trace edema needs iv access-- will call IR -- central line wants to discuss with Neurology about feeding tube IV antibiotics iv antifungals pt refused PO vanco -- couldn't swallow Cardiology evaluation for RANDY -- PT is high risk candidate continue with meds IV fluids-->clinimix Dysphagia not improving with IVIG eliquis on hold prognosis poor consider ?peg tube Problem List - Problems (1) Neutropenic sepsis Code(s): A41.9 - SEPSIS, UNSPECIFIED ORGANISM; D70.9 - NEUTROPENIA, UNSPECIFIED (2) Atrial fibrillation Code(s): I48.91 - UNSPECIFIED ATRIAL FIBRILLATION Qualifiers: Atrial fibrillation type: paroxysmal Qualified Code(s): I48.0 - Paroxysmal atrial fibrillation (3) History of colon cancer Code(s): Z85.038 - PERSONAL HISTORY OF MALIGNANT NEOPLASM OF LARGE INTESTINE (4) Multiple myeloma Code(s): C90.00 - MULTIPLE MYELOMA NOT HAVING ACHIEVED REMISSION Qualifiers: Multiple myeloma remission status: unspecified Qualified Code(s): C90.00 - Multiple myeloma not having achieved remission (5) Sepsis Code(s): A41.9 - SEPSIS, UNSPECIFIED ORGANISM Qualifiers: Sepsis type: sepsis due to unspecified organism Qualified Code(s): A41.9 - Sepsis, unspecified organism (6) Anemia Code(s): D64.9 - ANEMIA, UNSPECIFIED Qualifiers: Anemia type: unspecified type Qualified Code(s): D64.9 - Anemia, unspecified
[2018-09-28] MEDS: NYSTATIN 500,000 UNITS/5 ML SUSPENSION PO SCH (17:43)
[2018-09-28] MEDS: MULTIVIT INJ. ADULT COMBO WITH VIT K 1 COMBO 10 ML VIAL IV SCH (17:46)
--- NOTE | 2018-09-28 19:56 | PN ---
Progress Note (short form) - Note Progress Note: Patient seen and examined Ate some pudding Willing to try additional p.o. Last Vital Signs Temp Pulse Resp BP Pulse Ox 98.6 F 89 20 115/67 97 09/28/18 17:17 09/28/18 17:17 09/28/18 17:17 09/28/18 17:17 09/28/18 09:00 HEENT: SAY, EOM Intact Oropharynx: thrush, Cor: RSR, No murmurs, No gallops Lungs: scattered rales bases Abd: Soft, Normal bowel sounds, No organomegaly Ext:No significant edema Skin: No rashes, Integument intact CBC, BMP 09/28/18 05:38 09/28/18 05:38 Current Medications Generic Name Dose Route Start Last Admin Trade Name Freq PRN Reason Stop Dose Admin Acetaminophen 1,000 mg 09/16/18 10:10 09/16/18 18:37 Ofirmev Injection - IVPB 1,000 mg Q6H PRN Administration FEVER Emollient Ointment 1 applic 09/21/18 12:00 09/28/18 10:24 Aquaphor - TP 1 applic BID JAMIE Administration IV Flush 4 ml 09/28/18 13:05 Triple Lumen Flush IVPUSH PRN PRN Protocol Daptomycin 700 mg/ Sodium 50 mls @ 100 mls/hr 09/15/18 16:30 09/28/18 12:14 Chloride IVPB 100 mls/hr DAILY JAMIE Administration Protocol Lidocaine/Aluminum/Magnesium/Simeth 5 ml 09/16/18 11:07 09/26/18 12:01 Magic Mouthwash *Sjr Formula* - MM 5 ml Q6HPO PRN Administration ORAL PAIN/MOUTH SORES Metoclopramide HCl 10 mg 09/20/18 18:20 09/20/18 18:52 Reglan Injection - IVPUSH 10 mg Q8H PRN Administration NAUSEA AND/OR VOMITING Metoprolol Tartrate 5 mg 09/18/18 14:00 09/28/18 14:10 Lopressor Injection - IVPB 5 mg TID JAMIE Administration Multivitamins/Minerals 10 ml 09/19/18 15:30 09/28/18 17:46 Infuvite Adult - IV Not Given DAILY@1530 [facility] Nystatin 500,000 units 09/28/18 18:00 09/28/18 17:43 Nystatin Oral Suspension - PO 500,000 units Q6HPO JAMIE Administration Pantoprazole Sodium 40 mg 09/21/18 10:15 09/28/18 10:24 Protonix Iv IVPUSH 40 mg DAILY JAMIE Administration Impression: MRSA Port infection-s/p removal IV acces problem Thrush Dysphagia Awaiting IV access to resume antifungal and antibiotics.
--- NOTE | 2018-09-28 20:31 | PN ---
Progress Note (short form) - Note Progress Note: NEUROLOGY PROGRESS: Events reviewed and discussed with Dr. Regi Brand this afternoon. Pt continues on IV antifungal Rx as well as Nystatin swish and swallow for oropharyngeal thrush. However, patient ate an entire pudding today without pain, difficulty or aspiration. Was Out of bed with walker and assist of 1. EXAM: edematous, pale Left ptosis without fatigue. Full EOM's. gag-present. Normal arm strength. Ankle dorsiflexion 4-/5 Areflexic Feels touch at ankles not toes. IMP: Stable CIDP Dysphagia on mechanical basis due to thrush- not neurological SUGGEST: Continue IV and oral antifungal Rx. OO Bed to chair for all meals Try ice cream and other soft/cold foods Defer PEG at this time. Thank you very much, Shahriar Monaco MD
[2018-09-29] MEDS: NYSTATIN 500,000 UNITS/5 ML SUSPENSION PO SCH ×4 (00:52→18:19)
[2018-09-29] MEDS: METOPROLOL TARTRATE 5 MG/5 ML VIAL IVPB SCH ×3 (06:17→22:00)
[2018-09-29 09:14] LABS: ALBUMIN 2.7 g/dl (3.4-5.0); BILIRUBIN,TOTAL 0.6 mg/dL (0.2-1); BLOOD UREA NITROGEN 19.4 mg/dL (7-18); CALCIUM 9.4 mg/dL (8.5-10.1); CREATININE 1.1 mg/dL (0.55-1.3); POTASSIUM 3.8 mmol/L (3.5-5.1); TOT PROT 7.4 g/dl (6.4-8.2)
[2018-09-29 09:16] LABS: BASO % 1.4 % (0-2.0); EOS % 0.6 % (0-4.5); HEMATOCRIT 34.2 % (35.4-49); HEMOGLOBIN 11.2 GM/dL (11.7-16.9); LYMPH % 29.2 % (8-40); MCH 28.8 pg (25.7-33.7); MCHC 32.6 g/dl (32.0-35.9); MEAN CELL VOLUME 88.4 fl (80-96); MONO % 24.3 % (3.8-10.2); NEUT % 44.5 % (42.8-82.8); RBC 3.87 M/mm3 (4.00-5.60); RDW 20.1 % (11.9-15.9); WHITE BLOOD COUNT 3.3 K/mm3 (4.0-10.0)
[2018-09-29 09:41] LABS: PLATELET COUNT 78 K/MM3 (134-434)
[2018-09-29] MEDS: MINERAL OIL/PET HY-PHL TOPICAL OINTMENT 454 GM JAR TP SCH ×2 (11:18→22:04)
[2018-09-29] MEDS: PANTOPRAZOLE SODIUM 40 MG VIAL IVPUSH SCH (11:19)
[2018-09-29] MEDS: DAPTOMYCIN 700 MG in SODIUM CHLORIDE 50 ML IVPB SCH (11:19)
--- NOTE | 2018-09-29 11:45 | PN ---
Progress Note (short form) - Note Progress Note: feels weak no diarrhea has mouth sores decreased appetite ate some jello, able to drink water OOB with assist of 2 Vital Signs - 24 hr 09/28/18 09/28/18 09/28/18 20:25 21:00 21:33 Temperature 98.4 F Pulse Rate 96 H 96 H Respiratory 18 Rate Blood Pressure 118/62 118/72 O2 Sat by Pulse 97 Oximetry (%) 09/29/18 09/29/18 09/29/18 06:00 06:17 09:00 Temperature 98.9 F Pulse Rate 84 84 Respiratory 20 Rate Blood Pressure 116/70 116/70 O2 Sat by Pulse 98 Oximetry (%) 09/29/18 09/29/18 15:39 16:51 Temperature 97.9 F Pulse Rate 88 94 H Respiratory 20 Rate Blood Pressure 118/76 128/77 O2 Sat by Pulse Oximetry (%) Current Medications Generic Name Dose Route Start Last Admin Trade Name Freq PRN Reason Stop Dose Admin Acetaminophen 1,000 mg 09/16/18 10:10 09/16/18 18:37 Ofirmev Injection - IVPB 1,000 mg Q6H PRN Administration FEVER Emollient Ointment 1 applic 09/21/18 12:00 09/29/18 11:18 Aquaphor - TP 1 applic BID JAMIE Administration IV Flush 4 ml 09/28/18 13:05 Triple Lumen Flush IVPUSH PRN PRN Protocol Daptomycin 700 mg/ Sodium 50 mls @ 100 mls/hr 09/15/18 16:30 09/29/18 11:19 Chloride IVPB 100 mls/hr DAILY JAMIE Administration Protocol Caspofungin 50 mg/ Sodium 250 mls @ 250 mls/hr 09/29/18 13:00 09/29/18 15:39 Chloride IVPB 250 mls/hr Q24H JAMIE Administration Lidocaine/Aluminum/Magnesium/Simeth 5 ml 09/16/18 11:07 09/26/18 12:01 Magic Mouthwash *Sjr Formula* - MM 5 ml Q6HPO PRN Administration ORAL PAIN/MOUTH SORES Metoclopramide HCl 10 mg 09/20/18 18:20 09/20/18 18:52 Reglan Injection - IVPUSH 10 mg Q8H PRN Administration NAUSEA AND/OR VOMITING Metoprolol Tartrate 5 mg 09/18/18 14:00 09/29/18 15:39 Lopressor Injection - IVPB 5 mg TID JAMIE Administration Multivitamins/Minerals 10 ml 09/19/18 15:30 09/28/18 17:46 Infuvite Adult - IV Not Given DAILY@1530 JAMIE Nystatin 500,000 units 09/28/18 18:00 09/29/18 11:20 Nystatin Oral Suspension - PO 500,000 units Q6HPO JAMIE Administration Pantoprazole Sodium 40 mg 09/21/18 10:15 09/29/18 11:19 Protonix Iv IVPUSH 40 mg DAILY JAMIE Administration Laboratory Results - last 24 hr 09/29/18 09/29/18 06:55 06:55 WBC 3.3 L RBC 3.87 L Hgb 11.2 L Hct 34.2 L MCV 88.4 MCH 28.8 MCHC 32.6 RDW 20.1 H Plt Count 78 L MPV 10.0 Absolute Neuts (auto) 1.5 Neutrophils % 44.5 Neutrophils % (Manual) 52.0 D Band Neutrophils % 3.1 Lymphocytes % 29.2 D Lymphocytes % (Manual) 15.3 D Monocytes % 24.3 H Monocytes % (Manual) 13 H Eosinophils % 0.6 D Eosinophils % (Manual) 0.0 Basophils % 1.4 Basophils % (Manual) 3.0 H Myelocytes % (Man) 4 H D Promyelocytes % (Man) 0 Blast Cells % (Manual) 0 Nucleated RBC % 0 Metamyelocytes 0 Hypochromia 0 Platelet Estimate Decreased Platelet Comment Present Polychromasia 0 Poikilocytosis 1+ Anisocytosis 2+ Microcytosis 1+ Macrocytosis 1+ Spherocytes 1+ Tear Drop Cells 1+ Ovalocytes 1+ Stalin Cells 1+ Acanthocytes (Spur) 1+ Schistocytes 1+ Sodium 138 Potassium 3.8 Chloride 108 H Carbon Dioxide 22 Anion Gap 8 BUN 19.4 H Creatinine 1.1 Est GFR (CKD-EPI)AfAm 77.32 Est GFR (CKD-EPI)NonAf 66.71 Random Glucose 109 H Calcium 9.4 Total Bilirubin 0.6 AST 63 H ALT 55 Alkaline Phosphatase 202 H Total Protein 7.4 Albumin 2.7 L S1 S2 RRR Pale Lungs decreased breath sounds Abd- soft,tender all areas trace edema iv access-- will call IR -- central line Neurology follow up deferred GT IV antibiotics iv antifungals continue with meds IV fluids-->clinimix eliquis on hold prognosis poor Problem List - Problems (1) Neutropenic sepsis Code(s): A41.9 - SEPSIS, UNSPECIFIED ORGANISM; D70.9 - NEUTROPENIA, UNSPECIFIED (2) Atrial fibrillation Code(s): I48.91 - UNSPECIFIED ATRIAL FIBRILLATION Qualifiers: Atrial fibrillation type: paroxysmal Qualified Code(s): I48.0 - Paroxysmal atrial fibrillation (3) History of colon cancer Code(s): Z85.038 - PERSONAL HISTORY OF MALIGNANT NEOPLASM OF LARGE INTESTINE (4) Multiple myeloma Code(s): C90.00 - MULTIPLE MYELOMA NOT HAVING ACHIEVED REMISSION Qualifiers: Multiple myeloma remission status: unspecified Qualified Code(s): C90.00 - Multiple myeloma not having achieved remission (5) Sepsis Code(s): A41.9 - SEPSIS, UNSPECIFIED ORGANISM Qualifiers: Sepsis type: sepsis due to unspecified organism Qualified Code(s): A41.9 - Sepsis, unspecified organism (6) Anemia Code(s): D64.9 - ANEMIA, UNSPECIFIED Qualifiers: Anemia type: unspecified type Qualified Code(s): D64.9 - Anemia, unspecified
--- NOTE | 2018-09-29 11:55 | PN ---
Progress Note, Physician History of Present Illness: AWAKE, ALERT IN BED ABLE TO EAT JELLO THS AM TEMPS REMAIN DOWN AFEBRILE WBC LOWER 3.3 PLT IMPROVED - Current Medication List Current Medications: Active Medications Acetaminophen (Ofirmev Injection -) 1,000 mg IVPB Q6H PRN PRN Reason: FEVER Last Admin: 09/16/18 18:37 Dose: 1,000 mg Emollient Ointment (Aquaphor -) 1 applic TP BID [facility] Last Admin: 09/29/18 11:18 Dose: 1 applic IV Flush (Triple Lumen Flush) 4 ml IVPUSH PRN PRN PRN Reason: Protocol Daptomycin 700 mg/ Sodium (Chloride) 50 mls @ 100 mls/hr IVPB DAILY [facility]; Protocol Last Admin: 09/29/18 11:19 Dose: 100 mls/hr Lidocaine/Aluminum/Magnesium/Simeth (Magic Mouthwash *Sjr Formula* -) 5 ml MM Q6HPO PRN PRN Reason: ORAL PAIN/MOUTH SORES Last Admin: 09/26/18 12:01 Dose: 5 ml Metoclopramide HCl (Reglan Injection -) 10 mg IVPUSH Q8H PRN PRN Reason: NAUSEA AND/OR VOMITING Last Admin: 09/20/18 18:52 Dose: 10 mg Metoprolol Tartrate (Lopressor Injection -) 5 mg IVPB TID [facility] Last Admin: 09/29/18 06:17 Dose: 5 mg Multivitamins/Minerals (Infuvite Adult -) 10 ml IV DAILY@1530 [facility] Last Admin: 09/28/18 17:46 Dose: Not Given Nystatin (Nystatin Oral Suspension -) 500,000 units PO Q6HPO [facility] Last Admin: 09/29/18 11:20 Dose: 500,000 units Pantoprazole Sodium (Protonix Iv) 40 mg IVPUSH DAILY [facility] Last Admin: 09/29/18 11:19 Dose: 40 mg - Objective Vital Signs: Vital Signs Temperature 98.9 F 09/29/18 06:00 Pulse Rate 84 09/29/18 06:17 Respiratory Rate 20 09/29/18 06:00 Blood Pressure 116/70 09/29/18 06:17 O2 Sat by Pulse Oximetry (%) 97 09/28/18 21:00 Constitutional: Yes: No Distress Eyes: Yes: Conjunctiva Clear Cardiovascular: Yes: Regular Rate and Rhythm, S1, S2 Respiratory: Yes: CTA Bilaterally Gastrointestinal: Yes: Normal Bowel Sounds, Soft. No: Tenderness Labs: CBC, BMP 09/29/18 06:55 09/29/18 06:55 INR, PTT INR 1.08 (0.83-1.09) 09/21/18 06:38 Fibrinogen 442.0 mg/dL (238-498) 09/15/18 15:00 Assessment/Plan MRSA BACTEREMIA/ SEPSIS PROBABLE INFECTED PORT S/P REMOVAL THROMBOCYTOPENIA + C DIFF AZOTEMIA IMPROVED METASTATIC CA S/P CHEMO DYSPHAGIA/ THRUSH ? AZOL RESISTANT MER CONTINUE DAPTOMYCIN CONTINUE CANCIDAS PROGNOSIS GUARDED
--- NOTE | 2018-09-29 13:52 | PN ---
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 Pt reportedly not eating because he "dislikes the thickened liquids." Upgraded to thin liquids to allow ice cream. Reported to be tolerating jello better, taking very little still. It was rec to defer PEG at this time. Thrush treated with CANCIDAS now and swish and spit. Suggest- I would consider swish and swallow, as tolerated, as esophageal candidiasis is likely Consider calorie count x 2 days- Sufficient PO intake? Pt is a full code and wants "everything done" to survive- I suspect a PEG would benefit him as he has had suboptimal nutrition since admission and I doubt PO intake will be sufficient in the short term. Goal can be to wean from PEG, as previously done, if PO intake improves. Pt can be fed nocturnally with PEG, and PO as tolerated day time.
[2018-09-29] MEDS ORDERED: PT OWN MED DRAWER 7, Y5N ONE (14:15)
[2018-09-29 14:31] LABS: ANISOCYTOSIS 2+; MACROCYTOSIS 1+; OVALOCYTE 1+; PLATELET ESTIMATE DECREASED; TEAR DROP CELLS 1+
[2018-09-29] MEDS: CASPOFUNGIN ACETATE 50 MG in SODIUM CHLORIDE 250 ML IVPB SCH (15:39)
[2018-09-29] MEDS: MULTIVIT INJ. ADULT COMBO WITH VIT K 1 COMBO 10 ML VIAL IV SCH ×2 (18:19→19:08)
--- NOTE | 2018-09-29 18:29 | PN ---
Progress Note, Physician History of Present Illness: Dysphagia improving, tolerating some jello. Bld cx 09/22 has cleared c/w line sepsis. - Current Medication List Current Medications: Active Medications Acetaminophen (Ofirmev Injection -) 1,000 mg IVPB Q6H PRN PRN Reason: FEVER Last Admin: 09/16/18 18:37 Dose: 1,000 mg Emollient Ointment (Aquaphor -) 1 applic TP BID [facility] Last Admin: 09/29/18 11:18 Dose: 1 applic IV Flush (Triple Lumen Flush) 4 ml IVPUSH PRN PRN PRN Reason: Protocol Daptomycin 700 mg/ Sodium (Chloride) 50 mls @ 100 mls/hr IVPB DAILY [facility]; Protocol Last Admin: 09/29/18 11:19 Dose: 100 mls/hr Caspofungin 50 mg/ Sodium (Chloride) 250 mls @ 250 mls/hr IVPB Q24H [facility] Last Admin: 09/29/18 15:39 Dose: 250 mls/hr Amino Acids (Clinimix -) 1,000 mls @ 84 mls/hr IV Q12H [facility] Lidocaine/Aluminum/Magnesium/Simeth (Magic Mouthwash *Sjr Formula* -) 5 ml MM Q6HPO PRN PRN Reason: ORAL PAIN/MOUTH SORES Last Admin: 09/26/18 12:01 Dose: 5 ml Metoclopramide HCl (Reglan Injection -) 10 mg IVPUSH Q8H PRN PRN Reason: NAUSEA AND/OR VOMITING Last Admin: 09/20/18 18:52 Dose: 10 mg Metoprolol Tartrate (Lopressor Injection -) 5 mg IVPB TID [facility] Last Admin: 09/29/18 15:39 Dose: 5 mg Multivitamins/Minerals (Infuvite Adult -) 10 ml IV DAILY@1530 [facility] Last Admin: 09/29/18 18:19 Dose: Not Given Nystatin (Nystatin Oral Suspension -) 500,000 units PO Q6HPO [facility] Last Admin: 09/29/18 18:19 Dose: 500,000 units Pantoprazole Sodium (Protonix Iv) 40 mg IVPUSH DAILY [facility] Last Admin: 09/29/18 11:19 Dose: 40 mg - Objective Vital Signs: Vital Signs Temperature 97.9 F 09/29/18 16:51 Pulse Rate 94 H 09/29/18 16:51 Respiratory Rate 20 09/29/18 16:51 Blood Pressure 128/77 09/29/18 16:51 O2 Sat by Pulse Oximetry (%) 98 09/29/18 09:00 Constitutional: Yes: No Distress, Calm Neck: Yes: Supple Cardiovascular: Yes: Regular Rate and Rhythm Respiratory: Yes: Regular, Diminished Gastrointestinal: Yes: Soft, Hypoactive Bowel Sounds Edema: No Labs: CBC, BMP 09/29/18 06:55 09/29/18 06:55 INR, PTT INR 1.08 (0.83-1.09) 09/21/18 06:38 Fibrinogen 442.0 mg/dL (238-498) 09/15/18 15:00 Problem List - Problems (1) Atrial fibrillation Code(s): I48.91 - UNSPECIFIED ATRIAL FIBRILLATION Qualifiers: Atrial fibrillation type: paroxysmal Qualified Code(s): I48.0 - Paroxysmal atrial fibrillation (2) Dysphagia, oropharyngeal phase Code(s): R13.12 - DYSPHAGIA, OROPHARYNGEAL PHASE (3) MRSA (methicillin resistant staph aureus) culture positive Code(s): Z22.322 - CARRIER OR SUSPECTED CARRIER OF METHICILLIN RESIS STAPH (4) Multiple myeloma Code(s): C90.00 - MULTIPLE MYELOMA NOT HAVING ACHIEVED REMISSION Qualifiers: Multiple myeloma remission status: unspecified Qualified Code(s): C90.00 - Multiple myeloma not having achieved remission (5) CAD (coronary artery disease) Code(s): I25.10 - ATHSCL HEART DISEASE OF [place] CORONARY ARTERY W/O ANG PCTRS Qualifiers: Coronary Disease-Associated Artery/Lesion type: [place] artery [place] vs. transplanted heart: [place] heart Associated angina: without angina Qualified Code(s): I25.10 - Atherosclerotic heart disease of [place] coronary artery without angina pectoris (6) CIDP (chronic inflammatory demyelinating polyneuropathy) Code(s): G61.81 - CHRONIC INFLAMMATORY DEMYELINATING POLYNEURITIS (7) Diabetes mellitus Code(s): E11.9 - TYPE 2 DIABETES MELLITUS WITHOUT COMPLICATIONS Qualifiers: Diabetes mellitus type: type 2 Diabetes mellitus nursing home insulin use: without nursing home use Diabetes mellitus complication status: without complication Qualified Code(s): E11.9 - Type 2 diabetes mellitus without complications (8) Diastolic dysfunction Code(s): I51.9 - HEART DISEASE, UNSPECIFIED (9) HTN (hypertension) Code(s): I10 - ESSENTIAL (PRIMARY) HYPERTENSION Qualifiers: Hypertension type: essential hypertension Qualified Code(s): I10 - Essential (primary) hypertension (10) Hypercholesterolemia Code(s): E78.00 - PURE HYPERCHOLESTEROLEMIA, UNSPECIFIED Assessment/Plan 09/14/2018 Echo: Mild cLVH, LVEF 60%, mild MR, can't r/o endocarditis 1. MRSA bacteremia post port removal c/w line sepsis given bld cx clearance 2. Pancytopenia with POOR RESPONSE TO NEUPOGEN AND BLOOD TRANSFUSION, history of multiple myeloma post stem cell transplant 3. cdiff antigen with diarrhea- on po vancomycin 4. metastatic colon cancer with rt. lobe of liver metastasis S/P chemotherapy - - FOLFIRI 5. 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 CAD, angina pectoris 7. Diastolic dysfunction 8. Paroxysmal atrial fibrillation currently in sinus rhythm [id number] score of 3, off A/C therapy with NOAC (Eliquis) 9. Hypertension 10. DM 11. Hypercholesterolemia P:1. RANDY no longer indicated with clearance of 09/17 bld cx post port removal c/ w line sepsis, continue abx course per ID f/u 09/22 surveillance cultures 2. IV Lopressor for rate-control 3. Post IVIG, magic mouthwash and Cancidas for dysphagia, possible oral thrush, dysphagia diet 4. Neupogen, GI protection
[2018-09-29] MEDS: AMINO ACIDS 4.25%/D5W 1,000 ML IV SCH (19:09)
[2018-09-30] MEDS: NYSTATIN 500,000 UNITS/5 ML SUSPENSION PO SCH ×5 (00:51→23:08)
[2018-09-30] MEDS: METOPROLOL TARTRATE 5 MG/5 ML VIAL IVPB SCH ×3 (05:52→23:08)
[2018-09-30] MEDS: AMINO ACIDS 4.25%/D5W 1,000 ML IV SCH ×2 (05:53→23:07)
--- NOTE | 2018-09-30 10:14 | PN ---
Progress Note (short form) - Note Progress Note: pt seen/ examined today with Dr. Gomez Chart reviewed Discussed pt looks better eating a little thrush better Central line placed Vital Signs Temp 97.2 F L 09/30/18 06:00 Pulse 83 09/30/18 06:00 Resp 20 09/30/18 06:00 BP 108/58 L 09/30/18 06:00 Pulse Ox 98 09/29/18 21:00 Intake & Output 09/29/18 09/29/18 09/30/18 11:59 23:59 11:59 Intake Total 736 688 Output Total 300 500 300 Balance -300 236 388 Weight 192 lb 14.4 oz 188 lb 14.4 oz Intake: IV 336 588 Clinimix 1000ml 84cc/hr 336 588 IVPB 400 100 Output: Urine 300 500 300 Void 300 500 300 Other: Voiding Method Urinal Bowel Movement No Yes: 1 No Weight Measurement Method Built in Bedscale Built in Bedscale Active Medications Acetaminophen (Ofirmev Injection -) 1,000 mg IVPB Q6H PRN PRN Reason: FEVER Last Admin: 09/16/18 18:37 Dose: 1,000 mg Emollient Ointment (Aquaphor -) 1 applic TP BID [facility] Last Admin: 09/29/18 22:04 Dose: 1 applic IV Flush (Triple Lumen Flush) 4 ml IVPUSH PRN PRN PRN Reason: Protocol Daptomycin 700 mg/ Sodium (Chloride) 50 mls @ 100 mls/hr IVPB DAILY [facility]; Protocol Last Admin: 09/29/18 11:19 Dose: 100 mls/hr Caspofungin 50 mg/ Sodium (Chloride) 250 mls @ 250 mls/hr IVPB Q24H [facility] Last Admin: 09/29/18 15:39 Dose: 250 mls/hr Amino Acids (Clinimix -) 1,000 mls @ 84 mls/hr IV Q12H [facility] Last Admin: 09/30/18 05:53 Dose: Not Given Lidocaine/Aluminum/Magnesium/Simeth (Magic Mouthwash *Sjr Formula* -) 5 ml MM Q6HPO PRN PRN Reason: ORAL PAIN/MOUTH SORES Last Admin: 09/26/18 12:01 Dose: 5 ml Metoclopramide HCl (Reglan Injection -) 10 mg IVPUSH Q8H PRN PRN Reason: NAUSEA AND/OR VOMITING Last Admin: 09/20/18 18:52 Dose: 10 mg Metoprolol Tartrate (Lopressor Injection -) 5 mg IVPB TID [facility] Last Admin: 09/30/18 05:52 Dose: 5 mg Multivitamins/Minerals (Infuvite Adult -) 10 ml IV DAILY@1530 [facility] Last Admin: 09/29/18 19:08 Dose: 10 ml Nystatin (Nystatin Oral Suspension -) 500,000 units PO Q6HPO [facility] Last Admin: 09/30/18 06:01 Dose: 500,000 units Pantoprazole Sodium (Protonix Iv) 40 mg IVPUSH DAILY [facility] Last Admin: 09/29/18 11:19 Dose: 40 mg CBC, BMP 09/29/18 06:55 09/29/18 06:55 Physical Exam Thrush better S1 S2 RRR Pale Lungs decreased breath sounds Abd- soft,tender all areas trace edema continue present care abx central line placed cxr monitor lytes oob - chair pt will follow Problem List - Problems (1) Neutropenic sepsis Code(s): A41.9 - SEPSIS, UNSPECIFIED ORGANISM; D70.9 - NEUTROPENIA, UNSPECIFIED (2) Atrial fibrillation Code(s): I48.91 - UNSPECIFIED ATRIAL FIBRILLATION Qualifiers: Atrial fibrillation type: paroxysmal Qualified Code(s): I48.0 - Paroxysmal atrial fibrillation (3) History of colon cancer Code(s): Z85.038 - PERSONAL HISTORY OF MALIGNANT NEOPLASM OF LARGE INTESTINE (4) Multiple myeloma Code(s): C90.00 - MULTIPLE MYELOMA NOT HAVING ACHIEVED REMISSION Qualifiers: Multiple myeloma remission status: unspecified Qualified Code(s): C90.00 - Multiple myeloma not having achieved remission (5) Sepsis Code(s): A41.9 - SEPSIS, UNSPECIFIED ORGANISM Qualifiers: Sepsis type: sepsis due to unspecified organism Qualified Code(s): A41.9 - Sepsis, unspecified organism (6) Anemia Code(s): D64.9 - ANEMIA, UNSPECIFIED Qualifiers: Anemia type: unspecified type Qualified Code(s): D64.9 - Anemia, unspecified
--- NOTE | 2018-09-30 10:21 | PN ---
Progress Note (short form) - Note Progress Note: Patient seen and examined Was able to tolerate some cereal for breakfast On clinimix Last Vital Signs Temp Pulse Resp BP Pulse Ox 97.2 F L 83 20 108/58 L 98 09/30/18 06:00 09/30/18 06:00 09/30/18 06:00 09/30/18 06:00 09/29/18 21:00 HEENT: anisocoria Cor: RSR, No murmurs, No gallops Lungs scattered rales Abd: Soft, Normal bowel sounds, No organomegaly Ext:No significant edema Skin: No rashes, Integument intact triple lumen catheter CBC, BMP 09/29/18 06:55 09/29/18 06:55 Current Medications Generic Name Dose Route Start Last Admin Trade Name Freq PRN Reason Stop Dose Admin Acetaminophen 1,000 mg 09/16/18 10:10 09/16/18 18:37 Ofirmev Injection - IVPB 1,000 mg Q6H PRN Administration FEVER Emollient Ointment 1 applic 09/21/18 12:00 09/29/18 22:04 Aquaphor - TP 1 applic BID JAMIE Administration IV Flush 4 ml 09/28/18 13:05 Triple Lumen Flush IVPUSH PRN PRN Protocol Daptomycin 700 mg/ Sodium 50 mls @ 100 mls/hr 09/15/18 16:30 09/29/18 11:19 Chloride IVPB 100 mls/hr DAILY JAMIE Administration Protocol Caspofungin 50 mg/ Sodium 250 mls @ 250 mls/hr 09/29/18 13:00 09/29/18 15:39 Chloride IVPB 250 mls/hr Q24H JAMIE Administration Amino Acids 1,000 mls @ 84 mls/hr 09/29/18 17:45 09/30/18 05:53 Clinimix - IV Not Given Q12H JAMIE Lidocaine/Aluminum/Magnesium/Simeth 5 ml 09/16/18 11:07 09/26/18 12:01 Magic Mouthwash *Sjr Formula* - MM 5 ml Q6HPO PRN Administration ORAL PAIN/MOUTH SORES Metoclopramide HCl 10 mg 09/20/18 18:20 09/20/18 18:52 Reglan Injection - IVPUSH 10 mg Q8H PRN Administration NAUSEA AND/OR VOMITING Metoprolol Tartrate 5 mg 06/02/19 14:00 09/30/18 05:52 Lopressor Injection - IVPB 5 mg TID JAMIE Administration Multivitamins/Minerals 10 ml 09/19/18 15:30 09/29/18 19:08 Infuvite Adult - IV 10 ml DAILY@1530 JAMIE Administration Nystatin 500,000 units 09/28/18 18:00 09/30/18 06:01 Nystatin Oral Suspension - PO 500,000 units Q6HPO JAMIE Administration Pantoprazole Sodium 40 mg 09/21/18 10:15 09/29/18 11:19 Protonix Iv IVPUSH 40 mg DAILY JAMIE Administration Impression: MRSA sepsis Port infection -s/p removal C. difficile Dysphagia Pancytopenia Myeloma Colon ca - s/p ablation of liver Continue with clinimx Antibiotics and antifungals per ID Aggressive PT Monitor CBC/chems
--- NOTE | 2018-09-30 10:27 | PN ---
Progress Note (short form) - Note Progress Note: Spoke with Becca Chanel - only 2 spoonfuls of cereal for breakfast. She recommends PEG.
--- NOTE | 2018-09-30 10:34 | PN ---
Progress Note, VOIP TECHNICIAN - Note Progress Note: Selected Entries 09/29/18 09/30/18 09/30/18 18:43 05:52 06:00 Supper 0 Temperature 97.2 F L Blood Pressure 119/71 108/58 L Pt reports that he had 1 cotainer of chocolate pudding yesterday, small bites throughout the day. Today, he had 2 tsp of hot cereal, began to cough and then asked QUANTITATIVE ANALYST MARKETING to leave and he would try again later. We discussed TF again. At this point, he does not want TF, only as a "last resort." We discussed that TF could supplement PO trials. He would like to defer. Tongue with white patches.
[2018-09-30] MEDS ORDERED: PT OWN MED DRAWER 7, Y5N ONE ×2 (10:57→17:03)
[2018-09-30] MEDS: PANTOPRAZOLE SODIUM 40 MG VIAL IVPUSH SCH (11:00)
[2018-09-30] MEDS: DAPTOMYCIN 700 MG in SODIUM CHLORIDE 50 ML IVPB SCH (11:00)
[2018-09-30] MEDS: MINERAL OIL/PET HY-PHL TOPICAL OINTMENT 454 GM JAR TP SCH ×2 (11:01→23:08)
--- NOTE | 2018-09-30 13:08 | PN ---
Progress Note, Physician History of Present Illness: Dysphagia improving, tolerating some ice cream and cereal. Bld cx 09/22 has cleared c/w line sepsis. - Current Medication List Current Medications: Active Medications Acetaminophen (Ofirmev Injection -) 1,000 mg IVPB Q6H PRN PRN Reason: FEVER Last Admin: 09/16/18 18:37 Dose: 1,000 mg Emollient Ointment (Aquaphor -) 1 applic TP BID [facility] Last Admin: 09/30/18 11:01 Dose: 1 applic IV Flush (Triple Lumen Flush) 4 ml IVPUSH PRN PRN PRN Reason: Protocol Daptomycin 700 mg/ Sodium (Chloride) 50 mls @ 100 mls/hr IVPB DAILY [facility]; Protocol Last Admin: 09/30/18 11:00 Dose: 100 mls/hr Caspofungin 50 mg/ Sodium (Chloride) 250 mls @ 250 mls/hr IVPB Q24H [facility] Last Admin: 09/29/18 15:39 Dose: 250 mls/hr Amino Acids (Clinimix -) 1,000 mls @ 84 mls/hr IV Q12H [facility] Last Admin: 09/30/18 05:53 Dose: Not Given Lidocaine/Aluminum/Magnesium/Simeth (Magic Mouthwash *Sjr Formula* -) 5 ml MM Q6HPO PRN PRN Reason: ORAL PAIN/MOUTH SORES Last Admin: 09/26/18 12:01 Dose: 5 ml Metoclopramide HCl (Reglan Injection -) 10 mg IVPUSH Q8H PRN PRN Reason: NAUSEA AND/OR VOMITING Last Admin: 09/20/18 18:52 Dose: 10 mg Metoprolol Tartrate (Lopressor Injection -) 5 mg IVPB TID [facility] Last Admin: 09/30/18 05:52 Dose: 5 mg Multivitamins/Minerals (Infuvite Adult -) 10 ml IV DAILY@1530 [facility] Last Admin: 09/29/18 19:08 Dose: 10 ml Nystatin (Nystatin Oral Suspension -) 500,000 units PO Q6HPO [facility] Last Admin: 09/30/18 12:41 Dose: 500,000 units Pantoprazole Sodium (Protonix Iv) 40 mg IVPUSH DAILY [facility] Last Admin: 09/30/18 11:00 Dose: 40 mg - Objective Vital Signs: Vital Signs Temperature 97.2 F L 09/30/18 06:00 Pulse Rate 83 09/30/18 06:00 Respiratory Rate 20 09/30/18 06:00 Blood Pressure 108/58 L 09/30/18 06:00 O2 Sat by Pulse Oximetry (%) 98 09/29/18 21:00 Constitutional: Yes: No Distress, Calm Neck: Yes: Supple Cardiovascular: Yes: Regular Rate and Rhythm Respiratory: Yes: Regular, Diminished, On Nasal O2 Gastrointestinal: Yes: Normal Bowel Sounds, Soft Edema: No Labs: CBC, BMP 09/29/18 06:55 09/29/18 06:55 INR, PTT INR 1.08 (0.83-1.09) 09/21/18 06:38 Fibrinogen 442.0 mg/dL (238-498) 09/15/18 15:00 Problem List - Problems (1) Atrial fibrillation Code(s): I48.91 - UNSPECIFIED ATRIAL FIBRILLATION Qualifiers: Atrial fibrillation type: paroxysmal Qualified Code(s): I48.0 - Paroxysmal atrial fibrillation (2) Dysphagia, oropharyngeal phase Code(s): R13.12 - DYSPHAGIA, OROPHARYNGEAL PHASE (3) MRSA (methicillin resistant staph aureus) culture positive Code(s): Z22.322 - CARRIER OR SUSPECTED CARRIER OF METHICILLIN RESIS STAPH (4) Multiple myeloma Code(s): C90.00 - MULTIPLE MYELOMA NOT HAVING ACHIEVED REMISSION Qualifiers: Multiple myeloma remission status: unspecified Qualified Code(s): C90.00 - Multiple myeloma not having achieved remission (5) CAD (coronary artery disease) Code(s): I25.10 - ATHSCL HEART DISEASE OF [place] CORONARY ARTERY W/O ANG PCTRS Qualifiers: Coronary Disease-Associated Artery/Lesion type: [place] artery [place] vs. transplanted heart: [place] heart Associated angina: without angina Qualified Code(s): I25.10 - Atherosclerotic heart disease of [place] coronary artery without angina pectoris (6) CIDP (chronic inflammatory demyelinating polyneuropathy) Code(s): G61.81 - CHRONIC INFLAMMATORY DEMYELINATING POLYNEURITIS (7) Diabetes mellitus Code(s): E11.9 - TYPE 2 DIABETES MELLITUS WITHOUT COMPLICATIONS Qualifiers: Diabetes mellitus type: type 2 Diabetes mellitus group home insulin use: without watermelon inspector use Diabetes mellitus complication status: without complication Qualified Code(s): E11.9 - Type 2 diabetes mellitus without complications (8) Diastolic dysfunction Code(s): I51.9 - HEART DISEASE, UNSPECIFIED (9) HTN (hypertension) Code(s): I10 - ESSENTIAL (PRIMARY) HYPERTENSION Qualifiers: Hypertension type: essential hypertension Qualified Code(s): I10 - Essential (primary) hypertension (10) Hypercholesterolemia Code(s): E78.00 - PURE HYPERCHOLESTEROLEMIA, UNSPECIFIED Assessment/Plan 09/14/2018 Echo: Mild cLVH, LVEF 60%, mild MR, can't r/o endocarditis 1. MRSA bacteremia post port removal c/w line sepsis given bld cx clearance 2. Pancytopenia with POOR RESPONSE TO NEUPOGEN AND BLOOD TRANSFUSION, history of multiple myeloma post stem cell transplant 3. cdiff antigen with diarrhea- on po vancomycin 4. metastatic colon cancer with rt. lobe of liver metastasis S/P chemotherapy - - FOLFIRI 5. 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 CAD, angina pectoris 7. Diastolic dysfunction 8. Paroxysmal atrial fibrillation currently in sinus rhythm [id number] score of 3, off A/C therapy with NOAC (Eliquis) 9. Hypertension 10. DM 11. Hypercholesterolemia P:1. RANDY no longer indicated with clearance of 09/17 bld cx post port removal c/ w line sepsis, continue abx course per ID f/u 09/22 surveillance cultures 2. IV Lopressor for rate-control 3. Post IVIG, magic mouthwash and Cancidas for dysphagia, possible oral thrush, dysphagia diet, Clinimix, possible PEG 4. Neupogen, GI protection
--- NOTE | 2018-09-30 15:42 | PN ---
Progress Note, Physician History of Present Illness: AWAKE, ALERT IN BED CONTINUES TO HAVE SWALLOWING DIFFICULTIES TEMPS REMAIN DOWN AFEBRILE WBC LOWER 3.3 PLT IMPROVED - Current Medication List Current Medications: Active Medications Acetaminophen (Ofirmev Injection -) 1,000 mg IVPB Q6H PRN PRN Reason: FEVER Last Admin: 09/16/18 18:37 Dose: 1,000 mg Emollient Ointment (Aquaphor -) 1 applic TP BID [facility] Last Admin: 09/30/18 11:01 Dose: 1 applic IV Flush (Triple Lumen Flush) 4 ml IVPUSH PRN PRN PRN Reason: Protocol Daptomycin 700 mg/ Sodium (Chloride) 50 mls @ 100 mls/hr IVPB DAILY [facility]; Protocol Last Admin: 09/30/18 11:00 Dose: 100 mls/hr Caspofungin 50 mg/ Sodium (Chloride) 250 mls @ 250 mls/hr IVPB Q24H [facility] Last Admin: 09/29/18 15:39 Dose: 250 mls/hr Amino Acids (Clinimix -) 1,000 mls @ 84 mls/hr IV Q12H [facility] Last Admin: 09/30/18 05:53 Dose: Not Given Lidocaine/Aluminum/Magnesium/Simeth (Magic Mouthwash *Sjr Formula* -) 5 ml MM Q6HPO PRN PRN Reason: ORAL PAIN/MOUTH SORES Last Admin: 09/26/18 12:01 Dose: 5 ml Metoclopramide HCl (Reglan Injection -) 10 mg IVPUSH Q8H PRN PRN Reason: NAUSEA AND/OR VOMITING Last Admin: 09/20/18 18:52 Dose: 10 mg Metoprolol Tartrate (Lopressor Injection -) 5 mg IVPB TID [facility] Last Admin: 09/30/18 05:52 Dose: 5 mg Multivitamins/Minerals (Infuvite Adult -) 10 ml IV DAILY@1530 [facility] Last Admin: 09/29/18 19:08 Dose: 10 ml Nystatin (Nystatin Oral Suspension -) 500,000 units PO Q6HPO [facility] Last Admin: 09/30/18 12:41 Dose: 500,000 units Pantoprazole Sodium (Protonix Iv) 40 mg IVPUSH DAILY [facility] Last Admin: 09/30/18 11:00 Dose: 40 mg - Objective Vital Signs: Vital Signs Temperature 98.3 F 09/30/18 10:00 Pulse Rate 88 09/30/18 10:00 Respiratory Rate 20 09/30/18 10:00 Blood Pressure 103/64 09/30/18 10:00 O2 Sat by Pulse Oximetry (%) 98 09/30/18 09:00 HENT: Yes: Thrush Cardiovascular: Yes: Regular Rate and Rhythm, S1, S2 Respiratory: Yes: Diminished Gastrointestinal: Yes: Normal Bowel Sounds, Soft. No: Tenderness Labs: CBC, BMP 09/29/18 06:55 09/29/18 06:55 INR, PTT INR 1.08 (0.83-1.09) 09/21/18 06:38 Fibrinogen 442.0 mg/dL (238-498) 09/15/18 15:00 Assessment/Plan MRSA BACTEREMIA/ SEPSIS PROBABLE INFECTED PORT S/P REMOVAL THROMBOCYTOPENIA AZOTEMIA IMPROVED METASTATIC CA S/P CHEMO DYSPHAGIA/ THRUSH ? AZOL RESISTANT MER CONTINUE DAPTOMYCIN CONTINUE CANCIDAS PROGNOSIS GUARDED
[2018-09-30] MEDS: CASPOFUNGIN ACETATE 50 MG in SODIUM CHLORIDE 250 ML IVPB SCH (17:30)
[2018-09-30] MEDS: MULTIVIT INJ. ADULT COMBO WITH VIT K 1 COMBO 10 ML VIAL IV SCH (23:07)
[2018-10-01] MEDS: AMINO ACIDS 4.25%/D5W 1,000 ML IV SCH ×3 (06:43→17:07)
[2018-10-01] MEDS: NYSTATIN 500,000 UNITS/5 ML SUSPENSION PO SCH ×3 (06:43→17:06)
[2018-10-01] MEDS: METOPROLOL TARTRATE 5 MG/5 ML VIAL IVPB SCH ×3 (07:07→21:39)
[2018-10-01 08:43] LABS: ALBUMIN 2.5 g/dl (3.4-5.0); BILIRUBIN,TOTAL 0.4 mg/dL (0.2-1); BLOOD UREA NITROGEN 18.2 mg/dL (7-18); CALCIUM 8.7 mg/dL (8.5-10.1); MAGNESIUM 1.7 mg/dL (1.8-2.4); POTASSIUM 3.1 mmol/L (3.5-5.1); TOT PROT 6.7 g/dl (6.4-8.2)
[2018-10-01 08:48] LABS: BASO % 1.4 % (0-2.0); EOS % 0.4 % (0-4.5); HEMATOCRIT 31.8 % (35.4-49); HEMOGLOBIN 10.6 GM/dL (11.7-16.9); LYMPH % 34.8 % (8-40); MCH 29.4 pg (25.7-33.7); MCHC 33.3 g/dl (32.0-35.9); MEAN CELL VOLUME 88.2 fl (80-96); MEAN PLT VOLUME 9.7 fl (7.5-11.1); MONO % 16.5 % (3.8-10.2); NEUT % 46.9 % (42.8-82.8); PLATELET COUNT 90 K/MM3 (134-434); RDW 20.4 % (11.9-15.9); WHITE BLOOD COUNT 2.7 K/mm3 (4.0-10.0)
[2018-10-01] MEDS: PANTOPRAZOLE SODIUM 40 MG VIAL IVPUSH SCH (10:19)
[2018-10-01] MEDS: MINERAL OIL/PET HY-PHL TOPICAL OINTMENT 454 GM JAR TP SCH ×2 (10:24→21:40)
[2018-10-01] MEDS: DAPTOMYCIN 700 MG in SODIUM CHLORIDE 50 ML IVPB SCH (11:03)
--- NOTE | 2018-10-01 12:45 | PN ---
Progress Note (short form) - Note Progress Note: pt seen/ examined at bedside denies pain feels better eating cheese sandwich-- ate more than half and denies throat pain/ difficulty swallowing. afebrile Vital Signs Temp 98.4 F 10/01/18 10:00 Pulse 80 10/01/18 10:00 Resp 20 10/01/18 10:00 BP 111/73 10/01/18 10:00 Pulse Ox 98 09/30/18 09:00 Intake & Output 09/30/18 10/01/18 10/01/18 23:59 11:59 23:59 Intake Total 1324 828 Output Total 850 Balance 474 828 Weight 195 lb 3.2 oz Intake: IV 924 588 Clinimix 1000ml 84cc/hr 924 588 IVPB 400 Oral Supplement 240 Output: Urine 850 Void 850 Other: Voiding Method Urinal Urinal Bowel Movement No Weight Measurement Method [facility] Medications Acetaminophen (Ofirmev Injection -) 1,000 mg IVPB Q6H PRN PRN Reason: FEVER Last Admin: 09/16/18 18:37 Dose: 1,000 mg Emollient Ointment (Aquaphor -) 1 applic TP BID JAMIE Last Admin: 10/01/18 10:24 Dose: 1 applic IV Flush (Triple Lumen Flush) 4 ml IVPUSH PRN PRN PRN Reason: Protocol Daptomycin 700 mg/ Sodium (Chloride) 50 mls @ 100 mls/hr IVPB DAILY [facility]; Protocol Last Admin: 10/01/18 11:03 Dose: 100 mls/hr Caspofungin 50 mg/ Sodium (Chloride) 250 mls @ 250 mls/hr IVPB Q24H JAMIE Last Admin: 09/30/18 17:30 Dose: 250 mls/hr Amino Acids (Clinimix -) 1,000 mls @ 84 mls/hr IV Q12H JAMIE Last Admin: 10/01/18 11:07 Dose: 84 mls/hr Potassium Chloride (Potassium Chloride 10 Meq Premix Ivpb -) 10 meq in 100 mls @ 100 mls/hr IVPB Q60M [facility] Stop: 10/01/18 15:44 Lidocaine/Aluminum/Magnesium/Simeth (Magic Mouthwash *Sjr Formula* -) 5 ml MM Q6HPO PRN PRN Reason: ORAL PAIN/MOUTH SORES Last Admin: 09/26/18 12:01 Dose: 5 ml Metoclopramide HCl (Reglan Injection -) 10 mg IVPUSH Q8H PRN PRN Reason: NAUSEA AND/OR VOMITING Last Admin: 09/20/18 18:52 Dose: 10 mg Metoprolol Tartrate (Lopressor Injection -) 5 mg IVPB TID [facility] Last Admin: 10/01/18 07:07 Dose: Not Given Multivitamins/Minerals (Infuvite Adult -) 10 ml IV DAILY@1530 [facility] Last Admin: 09/30/18 23:07 Dose: 10 ml Nystatin (Nystatin Oral Suspension -) 500,000 units PO Q6HPO [facility] Last Admin: 10/01/18 06:43 Dose: 500,000 units Pantoprazole Sodium (Protonix Iv) 40 mg IVPUSH DAILY [facility] Last Admin: 10/01/18 10:19 Dose: 40 mg CBC, BMP 10/01/18 07:01 10/01/18 07:51 Abnormal Lab Results 10/01/18 10/01/18 07:01 07:51 WBC 2.7 L RBC 3.60 L Hgb 10.6 L Hct 31.8 L RDW 20.4 H Plt Count 90 L Absolute Neuts (auto) 1.3 L Monocytes % 16.5 H Potassium 3.1 L Chloride 108 H BUN 18.2 H Random Glucose 172 H Magnesium 1.7 L AST 41 H Alkaline Phosphatase 166 H Albumin 2.5 L Physical Exam S1 S2 RRR Pale Lungs decreased breath sounds Abd- soft,tender all areas trace edema awake/ comfortable better continue present care abx supplement k check Mg oob - chair pt will follow Discussed with nursing staff encourge eating Problem List - Problems (1) Dysphagia, oropharyngeal phase Code(s): R13.12 - DYSPHAGIA, OROPHARYNGEAL PHASE (2) Leukopenia Code(s): D72.819 - DECREASED WHITE BLOOD CELL COUNT, UNSPECIFIED Qualifiers: Leukopenia type: unspecified Qualified Code(s): D72.819 - Decreased white blood cell count, unspecified (3) MRSA (methicillin resistant staph aureus) culture positive Code(s): Z22.322 - CARRIER OR SUSPECTED CARRIER OF METHICILLIN RESIS STAPH (4) Multiple myeloma Code(s): C90.00 - MULTIPLE MYELOMA NOT HAVING ACHIEVED REMISSION Qualifiers: Multiple myeloma remission status: unspecified Qualified Code(s): C90.00 - Multiple myeloma not having achieved remission (5) Neutropenic sepsis Code(s): A41.9 - SEPSIS, UNSPECIFIED ORGANISM; D70.9 - NEUTROPENIA, UNSPECIFIED (6) CAD (coronary artery disease) Code(s): I25.10 - ATHSCL HEART DISEASE OF [place] CORONARY ARTERY W/O ANG PCTRS Qualifiers: Coronary Disease-Associated Artery/Lesion type: [place] artery [place] vs. transplanted heart: [place] heart Associated angina: without angina Qualified Code(s): I25.10 - Atherosclerotic heart disease of [place] coronary artery without angina pectoris (7) CIDP (chronic inflammatory demyelinating polyneuropathy) Code(s): G61.81 - CHRONIC INFLAMMATORY DEMYELINATING POLYNEURITIS
[2018-10-01] MEDS: MAG HYDROX/ALH/SMC/DPHA/LIDO 240 ML MOUTHWASH MM PRN (13:17)
[2018-10-01] MEDS: KCL 10 MEQ IVPB 10 MEQ/100 ML INFUS.BAG IVPB SCH ×3 (13:24→17:06)
--- NOTE | 2018-10-01 14:49 | PN ---
Progress Note, Physician History of Present Illness: No events today. Feels better. Feels taht swallowing is improving - Current Medication List Current Medications: Active Medications Acetaminophen (Ofirmev Injection -) 1,000 mg IVPB Q6H PRN PRN Reason: FEVER Last Admin: 09/16/18 18:37 Dose: 1,000 mg Emollient Ointment (Aquaphor -) 1 applic TP BID [facility] Last Admin: 10/01/18 10:24 Dose: 1 applic IV Flush (Triple Lumen Flush) 4 ml IVPUSH PRN PRN PRN Reason: Protocol Daptomycin 700 mg/ Sodium (Chloride) 50 mls @ 100 mls/hr IVPB DAILY [facility]; Protocol Last Admin: 10/01/18 11:03 Dose: 100 mls/hr Caspofungin 50 mg/ Sodium (Chloride) 250 mls @ 250 mls/hr IVPB Q24H [facility] Last Admin: 09/30/18 17:30 Dose: 250 mls/hr Amino Acids (Clinimix -) 1,000 mls @ 84 mls/hr IV Q12H [facility] Last Admin: 10/01/18 11:07 Dose: 84 mls/hr Potassium Chloride (Potassium Chloride 10 Meq Premix Ivpb -) 10 meq in 100 mls @ 100 mls/hr IVPB Q60M [facility] Stop: 10/01/18 15:44 Last Admin: 10/01/18 13:24 Dose: 100 mls/hr Lidocaine/Aluminum/Magnesium/Simeth (Magic Mouthwash *Sjr Formula* -) 5 ml MM Q6HPO PRN PRN Reason: ORAL PAIN/MOUTH SORES Last Admin: 10/01/18 13:17 Dose: 5 ml Metoclopramide HCl (Reglan Injection -) 10 mg IVPUSH Q8H PRN PRN Reason: NAUSEA AND/OR VOMITING Last Admin: 09/20/18 18:52 Dose: 10 mg Metoprolol Tartrate (Lopressor Injection -) 5 mg IVPB TID [facility] Last Admin: 10/01/18 07:07 Dose: Not Given Multivitamins/Minerals (Infuvite Adult -) 10 ml IV DAILY@1530 [facility] Last Admin: 09/30/18 23:07 Dose: 10 ml Nystatin (Nystatin Oral Suspension -) 500,000 units PO Q6HPO [facility] Last Admin: 10/01/18 13:24 Dose: 500,000 units Pantoprazole Sodium (Protonix Iv) 40 mg IVPUSH DAILY [facility] Last Admin: 10/01/18 10:19 Dose: 40 mg - Objective Vital Signs: Vital Signs Temperature 98.4 F 10/01/18 10:00 Pulse Rate 80 10/01/18 10:00 Respiratory Rate 20 10/01/18 10:00 Blood Pressure 111/73 10/01/18 10:00 O2 Sat by Pulse Oximetry (%) 98 10/01/18 09:00 Constitutional: Yes: No Distress, Calm Eyes: Yes: Conjunctiva Clear Cardiovascular: Yes: Regular Rate and Rhythm Respiratory: Yes: Regular, CTA Bilaterally Gastrointestinal: Yes: Soft Extremities: Yes: WNL Edema: No Labs: CBC, BMP 10/01/18 07:01 10/01/18 07:51 INR, PTT INR 1.08 (0.83-1.09) 09/21/18 06:38 Fibrinogen 442.0 mg/dL (238-498) 09/15/18 15:00 Assessment/Plan 72M with AF on Eliquis, 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 lobe of liver metastasis (unresectable at this point due to fatty liver) started FOLFIRI 09/06/18, admitted on 09/12 with MRSA in blood/urine cultures thought to be 2/2 port (removed), cleared cultures. On Daptomycin. Also with C. diff on this admission s/p PO vanco. Counts overall stable ANC 1300 today, plt count improving s/p IVIG for dysphagia, considering PEG but reports some improvement in swallowing
[2018-10-01] MEDS: CASPOFUNGIN ACETATE 50 MG in SODIUM CHLORIDE 250 ML IVPB SCH (14:55)
[2018-10-01] MEDS: MULTIVIT INJ. ADULT COMBO WITH VIT K 1 COMBO 10 ML VIAL IV SCH (15:59)
[2018-10-02] MEDS: NYSTATIN 500,000 UNITS/5 ML SUSPENSION PO SCH ×5 (02:24→23:26)
[2018-10-02] MEDS: AMINO ACIDS 4.25%/D5W 1,000 ML IV SCH (06:09)
[2018-10-02] MEDS: METOPROLOL TARTRATE 5 MG/5 ML VIAL IVPB SCH ×2 (06:09→14:55)
[2018-10-02 07:41] LABS: PLATELET COUNT 36 K/MM3 (134-434)
[2018-10-02 08:08] LABS: EOS % 0.4 % (0-4.5); HEMATOCRIT 30.8 % (35.4-49); HEMOGLOBIN 9.9 GM/dL (11.7-16.9); LYMPH % 26.4 % (8-40); MCH 28.9 pg (25.7-33.7); MCHC 32.3 g/dl (32.0-35.9); MEAN CELL VOLUME 89.6 fl (80-96); MEAN PLT VOLUME 9.2 fl (7.5-11.1); NEUT % 59.2 % (42.8-82.8); RBC 3.44 M/mm3 (4.00-5.60); WHITE BLOOD COUNT 3.5 K/mm3 (4.0-10.0)
[2018-10-02 08:34] LABS: ALBUMIN 2.4 g/dl (3.4-5.0); BILIRUBIN,TOTAL 0.5 mg/dL (0.2-1); BLOOD UREA NITROGEN 14.6 mg/dL (7-18); CALCIUM 8.5 mg/dL (8.5-10.1); CREATININE 0.9 mg/dL (0.55-1.3); MAGNESIUM 1.9 mg/dL (1.8-2.4); POTASSIUM 3.1 mmol/L (3.5-5.1); TOT PROT 6.4 g/dl (6.4-8.2)
[2018-10-02 08:58] LABS: PLATELET COUNT 95 K/MM3 (134-434)
[2018-10-02] MEDS: MULTIVIT INJ. ADULT COMBO WITH VIT K 1 COMBO 10 ML VIAL IV SCH ×2 (09:30→15:30)
[2018-10-02] MEDS: DAPTOMYCIN 700 MG in SODIUM CHLORIDE 50 ML IVPB SCH (09:31)
[2018-10-02] MEDS: PANTOPRAZOLE SODIUM 40 MG VIAL IVPUSH SCH (09:31)
[2018-10-02] MEDS: MINERAL OIL/PET HY-PHL TOPICAL OINTMENT 454 GM JAR TP SCH ×2 (09:32→21:22)
--- NOTE | 2018-10-02 11:13 | PN ---
Progress Note (short form) - Note Progress Note: pt seen/ examined comfortable no distress Vital Signs Temp 99.4 F 10/02/18 06:00 Pulse 86 10/02/18 06:09 Resp 20 10/02/18 06:00 BP 118/70 10/02/18 06:09 Pulse Ox 98 10/01/18 21:00 Intake & Output 10/01/18 10/01/18 10/02/18 11:59 23:59 11:59 Intake Total 828 3006 722 Output Total 890 480 Balance 828 2116 242 Weight 195 lb 3.2 oz 197 lb 14.4 oz Intake: IV 588 1596 672 Clinimix 1000ml 84cc/hr 588 1596 672 IVPB 850 50 Oral 200 Oral Supplement 240 360 Output: Urine 890 480 Void 890 480 Other: Voiding Method Urinal Urinal Toilet # Unmeasured Voids Void 1 3 Bowel Movement Yes Yes # Bowel Movements 1 1 Weight Measurement Method Built in Bedscale Built in Bedscale Active Medications Acetaminophen (Ofirmev Injection -) 1,000 mg IVPB Q6H PRN PRN Reason: FEVER Last Admin: 09/16/18 18:37 Dose: 1,000 mg Emollient Ointment (Aquaphor -) 1 applic TP BID [facility] Last Admin: 10/02/18 09:32 Dose: 1 applic IV Flush (Triple Lumen Flush) 4 ml IVPUSH PRN PRN PRN Reason: Protocol Daptomycin 700 mg/ Sodium (Chloride) 50 mls @ 100 mls/hr IVPB DAILY [facility]; Protocol Last Admin: 10/02/18 09:31 Dose: 100 mls/hr Caspofungin 50 mg/ Sodium (Chloride) 250 mls @ 250 mls/hr IVPB Q24H [facility] Last Admin: 10/01/18 14:55 Dose: 250 mls/hr Amino Acids (Clinimix -) 1,000 mls @ 84 mls/hr IV Q12H [facility] Last Admin: 10/02/18 06:09 Dose: 84 mls/hr Potassium Chloride (Potassium Chloride 10 Meq Premix Ivpb -) 10 meq in 100 mls @ 100 mls/hr IVPB Q60M [facility] Stop: 10/02/18 14:14 Lidocaine/Aluminum/Magnesium/Simeth (Magic Mouthwash *Sjr Formula* -) 5 ml MM Q6HPO PRN PRN Reason: ORAL PAIN/MOUTH SORES Last Admin: 10/01/18 13:17 Dose: 5 ml Metoclopramide HCl (Reglan Injection -) 10 mg IVPUSH Q8H PRN PRN Reason: NAUSEA AND/OR VOMITING Last Admin: 09/20/18 18:52 Dose: 10 mg Metoprolol Tartrate (Lopressor Injection -) 5 mg IVPB TID [facility] Last Admin: 10/02/18 06:09 Dose: 5 mg Multivitamins/Minerals (Infuvite Adult -) 10 ml IV DAILY@1530 [facility] Last Admin: 10/02/18 09:30 Dose: 10 ml Nystatin (Nystatin Oral Suspension -) 500,000 units PO Q6HPO [facility] Last Admin: 10/02/18 06:10 Dose: 500,000 units Pantoprazole Sodium (Protonix Iv) 40 mg IVPUSH DAILY [facility] Last Admin: 10/02/18 09:31 Dose: 40 mg CBC, BMP 10/02/18 07:40 10/02/18 07:40 Physical Exam S1 S2 RRR Pale Lungs decreased breath sounds Abd- soft,non tender. bs + trace edema awake/ comfortable better continue present care abx supplement k oob - chair pt will follow encourage eating Discussed with RN also Problem List - Problems (1) Dysphagia, oropharyngeal phase Code(s): R13.12 - DYSPHAGIA, OROPHARYNGEAL PHASE (2) Leukopenia Code(s): D72.819 - DECREASED WHITE BLOOD CELL COUNT, UNSPECIFIED Qualifiers: Leukopenia type: unspecified Qualified Code(s): D72.819 - Decreased white blood cell count, unspecified (3) MRSA (methicillin resistant staph aureus) culture positive Code(s): Z22.322 - CARRIER OR SUSPECTED CARRIER OF METHICILLIN RESIS STAPH (4) Multiple myeloma Code(s): C90.00 - MULTIPLE MYELOMA NOT HAVING ACHIEVED REMISSION Qualifiers: Multiple myeloma remission status: unspecified Qualified Code(s): C90.00 - Multiple myeloma not having achieved remission (5) Neutropenic sepsis Code(s): A41.9 - SEPSIS, UNSPECIFIED ORGANISM; D70.9 - NEUTROPENIA, UNSPECIFIED (6) CAD (coronary artery disease) Code(s): I25.10 - ATHSCL HEART DISEASE OF [place] CORONARY ARTERY W/O ANG PCTRS Qualifiers: Coronary Disease-Associated Artery/Lesion type: [place] artery [place] vs. transplanted heart: [place] heart Associated angina: without angina Qualified Code(s): I25.10 - Atherosclerotic heart disease of [place] coronary artery without angina pectoris (7) CIDP (chronic inflammatory demyelinating polyneuropathy) Code(s): G61.81 - CHRONIC INFLAMMATORY DEMYELINATING POLYNEURITIS
[2018-10-02 11:24] LABS: ANISOCYTOSIS 1+; MACROCYTOSIS 0; PLATELET ESTIMATE DECREASED
[2018-10-02] MEDS: KCL 10 MEQ IVPB 10 MEQ/100 ML INFUS.BAG IVPB SCH ×3 (12:16→16:31)
[2018-10-02] MEDS: CASPOFUNGIN ACETATE 50 MG in SODIUM CHLORIDE 250 ML IVPB SCH (15:50)
[2018-10-02] MEDS: POTASSIUM CHLORIDE 20 MEQ in AMINO ACIDS 4.25%/D5W 1,000 ML IVPB SCH ×2 (18:00→23:27)
--- NOTE | 2018-10-02 20:24 | PN ---
Progress Note, Physician History of Present Illness: Doing better. Ate a bologna sandwich today without difficulty. Reports 3 loose BMs today. - Current Medication List Current Medications: Active Medications Acetaminophen (Ofirmev Injection -) 1,000 mg IVPB Q6H PRN PRN Reason: FEVER Last Admin: 09/16/18 18:37 Dose: 1,000 mg Emollient Ointment (Aquaphor -) 1 applic TP BID [facility] Last Admin: 10/02/18 09:32 Dose: 1 applic IV Flush (Triple Lumen Flush) 4 ml IVPUSH PRN PRN PRN Reason: Protocol Daptomycin 700 mg/ Sodium (Chloride) 50 mls @ 100 mls/hr IVPB DAILY [facility]; Protocol Last Admin: 10/02/18 09:31 Dose: 100 mls/hr Caspofungin 50 mg/ Sodium (Chloride) 250 mls @ 250 mls/hr IVPB Q24H [facility] Last Admin: 10/02/18 15:50 Dose: 250 mls/hr Potassium Chloride 20 meq/ (Amino Acids) 1,010 mls @ 84 mls/hr IVPB Q12H [facility] Last Admin: 10/02/18 18:00 Dose: Not Given Lidocaine/Aluminum/Magnesium/Simeth (Magic Mouthwash *Sjr Formula* -) 5 ml MM Q6HPO PRN PRN Reason: ORAL PAIN/MOUTH SORES Last Admin: 10/01/18 13:17 Dose: 5 ml Metoclopramide HCl (Reglan Injection -) 10 mg IVPUSH Q8H PRN PRN Reason: NAUSEA AND/OR VOMITING Last Admin: 09/20/18 18:52 Dose: 10 mg Multivitamins/Minerals (Infuvite Adult -) 10 ml IV DAILY@1530 [facility] Last Admin: 10/02/18 15:30 Dose: Not Given Nystatin (Nystatin Oral Suspension -) 500,000 units PO Q6HPO [facility] Last Admin: 10/02/18 18:04 Dose: 500,000 units Pantoprazole Sodium (Protonix Iv) 40 mg IVPUSH DAILY [facility] Last Admin: 10/02/18 09:31 Dose: 40 mg - Objective Vital Signs: Vital Signs Temperature 99.1 F 10/02/18 17:43 Pulse Rate 88 10/02/18 17:43 Respiratory Rate 20 06/16/19 17:43 Blood Pressure 106/62 06/16/19 17:43 O2 Sat by Pulse Oximetry (%) 98 10/02/18 09:00 Constitutional: Yes: No Distress Eyes: Yes: Conjunctiva Clear Cardiovascular: Yes: Regular Rate and Rhythm Respiratory: Yes: Regular, CTA Bilaterally Gastrointestinal: Yes: Soft. 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 lobe of liver metastasis (unresectable at this point due to fatty liver) started FOLFIRI 09/06/18, admitted on 09/12 with MRSA in blood/urine cultures thought to be 2/2 port (removed), cleared cultures. On Daptomycin. Also with C. diff on this admission s/p PO vanco. ?etiology of persistent diarrhea Counts overall stable ANC 2100 today, plt count improving s/p IVIG for dysphagia, considering PEG but reports some improvement in swallowing
[2018-10-03] MEDS: POTASSIUM CHLORIDE 20 MEQ in AMINO ACIDS 4.25%/D5W 1,000 ML IVPB SCH ×3 (05:28→17:22)
[2018-10-03] MEDS: NYSTATIN 500,000 UNITS/5 ML SUSPENSION PO SCH ×3 (06:08→17:33)
--- NOTE | 2018-10-03 09:15 | PN ---
Progress Note (short form) - Note Progress Note: pt seen/ examined feels ok ate better yesterday Vital Signs Temp 98.1 F 10/03/18 06:56 Pulse 85 10/03/18 06:56 Resp 20 10/03/18 06:56 BP 106/68 10/03/18 06:56 Pulse Ox 98 10/02/18 21:00 Intake & Output 10/02/18 10/02/18 10/03/18 11:59 23:59 11:59 Intake Total 722 2094 1248 Output Total 480 1300 500 Balance 242 794 748 Weight 197 lb 14.4 oz 194 lb 6 oz Intake: IV 921 642 3282 Clinimix 1000ml 84cc/hr 732 583 4374 IVPB 50 750 Oral 420 240 Output: Urine 480 1300 500 Void 480 1300 500 Other: Voiding Method Toilet Diaper # Unmeasured Voids Void 3 Bowel Movement Yes Yes: 2 small loose # Bowel Movements 1 2 Weight [facility] Active Medications Acetaminophen (Ofirmev Injection -) 1,000 mg IVPB Q6H PRN PRN Reason: FEVER Last Admin: 09/16/18 18:37 Dose: 1,000 mg Emollient Ointment (Aquaphor -) 1 applic TP BID [facility] Last Admin: 10/02/18 21:22 Dose: 1 applic IV Flush (Triple Lumen Flush) 4 ml IVPUSH PRN PRN PRN Reason: Protocol Daptomycin 700 mg/ Sodium (Chloride) 50 mls @ 100 mls/hr IVPB DAILY [facility]; Protocol Last Admin: 10/02/18 09:31 Dose: 100 mls/hr Caspofungin 50 mg/ Sodium (Chloride) 250 mls @ 250 mls/hr IVPB Q24H [facility] Last Admin: 10/02/18 15:50 Dose: 250 mls/hr Potassium Chloride 20 meq/ (Amino Acids) 1,010 mls @ 84 mls/hr IVPB Q12H [facility] Last Admin: 10/03/18 05:28 Dose: Not Given Lidocaine/Aluminum/Magnesium/Simeth (Magic Mouthwash *Sjr Formula* -) 5 ml MM Q6HPO PRN PRN Reason: ORAL PAIN/MOUTH SORES Last Admin: 10/01/18 13:17 Dose: 5 ml Metoclopramide HCl (Reglan Injection -) 10 mg IVPUSH Q8H PRN PRN Reason: NAUSEA AND/OR VOMITING Last Admin: 09/20/18 18:52 Dose: 10 mg Multivitamins/Minerals (Infuvite Adult -) 10 ml IV DAILY@1530 [facility] Last Admin: 10/02/18 15:30 Dose: Not Given Nystatin (Nystatin Oral Suspension -) 500,000 units PO Q6HPO [facility] Last Admin: 10/03/18 06:08 Dose: 500,000 units Pantoprazole Sodium (Protonix Iv) 40 mg IVPUSH DAILY [facility] Last Admin: 10/02/18 09:31 Dose: 40 mg CBC, BMP 10/02/18 07:40 10/02/18 07:40 BMP- ordered. Physical Exam S1 S2 RRR Lungs decreased breath sounds Abd- soft,non tender. bs + trace edema awake/ comfortable better continue present care abx supplement k oob - chair pt will follow encourage eating Discussed with RN also. Advance Diet Discussed with nursing staff Problem List - Problems (1) Dysphagia, oropharyngeal phase Code(s): R13.12 - DYSPHAGIA, OROPHARYNGEAL PHASE (2) Leukopenia Code(s): D72.819 - DECREASED WHITE BLOOD CELL COUNT, UNSPECIFIED Qualifiers: Leukopenia type: unspecified Qualified Code(s): D72.819 - Decreased white blood cell count, unspecified (3) MRSA (methicillin resistant staph aureus) culture positive Code(s): Z22.322 - CARRIER OR SUSPECTED CARRIER OF METHICILLIN RESIS STAPH (4) Multiple myeloma Code(s): C90.00 - MULTIPLE MYELOMA NOT HAVING ACHIEVED REMISSION Qualifiers: Multiple myeloma remission status: unspecified Qualified Code(s): C90.00 - Multiple myeloma not having achieved remission (5) Neutropenic sepsis Code(s): A41.9 - SEPSIS, UNSPECIFIED ORGANISM; D70.9 - NEUTROPENIA, UNSPECIFIED (6) CAD (coronary artery disease) Code(s): I25.10 - ATHSCL HEART DISEASE OF [place] CORONARY ARTERY W/O ANG PCTRS Qualifiers: Coronary Disease-Associated Artery/Lesion type: [place] artery [place] vs. transplanted heart: [place] heart Associated angina: without angina Qualified Code(s): I25.10 - Atherosclerotic heart disease of [place] coronary artery without angina pectoris (7) CIDP (chronic inflammatory demyelinating polyneuropathy) Code(s): G61.81 - CHRONIC INFLAMMATORY DEMYELINATING POLYNEURITIS
--- NOTE | 2018-10-03 10:24 | PN ---
Progress Note, Physician Chief Complaint: Events noted Not in distress History of Present Illness: Patient was seen and examined. Awake and alert. Chart was reviewed Generalized weakness and mild cough Denies chest pain, SOB or palpitation - Current Medication List Current Medications: Active Medications Acetaminophen (Ofirmev Injection -) 1,000 mg IVPB Q6H PRN PRN Reason: FEVER Last Admin: 09/16/18 18:37 Dose: 1,000 mg Emollient Ointment (Aquaphor -) 1 applic TP BID [facility] Last Admin: 10/02/18 21:22 Dose: 1 applic IV Flush (Triple Lumen Flush) 4 ml IVPUSH PRN PRN PRN Reason: Protocol Daptomycin 700 mg/ Sodium (Chloride) 50 mls @ 100 mls/hr IVPB DAILY [facility]; Protocol Last Admin: 10/02/18 09:31 Dose: 100 mls/hr Caspofungin 50 mg/ Sodium (Chloride) 250 mls @ 250 mls/hr IVPB Q24H [facility] Last Admin: 10/02/18 15:50 Dose: 250 mls/hr Potassium Chloride 20 meq/ (Amino Acids) 1,010 mls @ 84 mls/hr IVPB Q12H [facility] Last Admin: 10/03/18 05:28 Dose: Not Given Lidocaine/Aluminum/Magnesium/Simeth (Magic Mouthwash *Sjr Formula* -) 5 ml MM Q6HPO PRN PRN Reason: ORAL PAIN/MOUTH SORES Last Admin: 10/01/18 13:17 Dose: 5 ml Metoclopramide HCl (Reglan Injection -) 10 mg IVPUSH Q8H PRN PRN Reason: NAUSEA AND/OR VOMITING Last Admin: 09/20/18 18:52 Dose: 10 mg Multivitamins/Minerals (Infuvite Adult -) 10 ml IV DAILY@1530 [facility] Last Admin: 10/02/18 15:30 Dose: Not Given Nystatin (Nystatin Oral Suspension -) 500,000 units PO Q6HPO [facility] Last Admin: 10/03/18 06:08 Dose: 500,000 units Pantoprazole Sodium (Protonix Iv) 40 mg IVPUSH DAILY [facility] Last Admin: 10/02/18 09:31 Dose: 40 mg - Objective Vital Signs: Vital Signs Temperature 98.1 F 10/03/18 06:56 Pulse Rate 85 10/03/18 06:56 Respiratory Rate 20 10/03/18 06:56 Blood Pressure 106/68 10/03/18 06:56 O2 Sat by Pulse Oximetry (%) 98 10/02/18 21:00 Eyes: Yes: PERRL HENT: Yes: Atraumatic Neck: Yes: Supple Cardiovascular: Yes: Regular Rate and Rhythm, S1, S2 Respiratory: Yes: Diminished Gastrointestinal: Yes: Normal Bowel Sounds, Soft. No: Tenderness Edema: No Labs: CBC, BMP 10/02/18 07:40 10/02/18 07:40 Problem List - Problems (1) Atrial fibrillation Code(s): I48.91 - UNSPECIFIED ATRIAL FIBRILLATION Qualifiers: Atrial fibrillation type: paroxysmal Qualified Code(s): I48.0 - Paroxysmal atrial fibrillation (2) History of colon cancer Code(s): Z85.038 - PERSONAL HISTORY OF MALIGNANT NEOPLASM OF LARGE INTESTINE (3) Leukopenia Code(s): D72.819 - DECREASED WHITE BLOOD CELL COUNT, UNSPECIFIED Qualifiers: Leukopenia type: unspecified Qualified Code(s): D72.819 - Decreased white blood cell count, unspecified (4) MRSA (methicillin resistant staph aureus) culture positive Code(s): Z22.322 - CARRIER OR SUSPECTED CARRIER OF METHICILLIN RESIS STAPH (5) Multiple myeloma Code(s): C90.00 - MULTIPLE MYELOMA NOT HAVING ACHIEVED REMISSION Qualifiers: Multiple myeloma remission status: unspecified Qualified Code(s): C90.00 - Multiple myeloma not having achieved remission (6) Neutropenic sepsis Code(s): A41.9 - SEPSIS, UNSPECIFIED ORGANISM; D70.9 - NEUTROPENIA, UNSPECIFIED (7) Anemia Code(s): D64.9 - ANEMIA, UNSPECIFIED Qualifiers: Anemia type: unspecified type Qualified Code(s): D64.9 - Anemia, unspecified (8) C. difficile diarrhea Code(s): A04.72 - ENTEROCOLITIS D/T CLOSTRIDIUM DIFFICILE, NOT SPCF RECUR (9) CAD (coronary artery disease) Code(s): I25.10 - ATHSCL HEART DISEASE OF [place] CORONARY ARTERY W/O ANG PCTRS Qualifiers: Coronary Disease-Associated Artery/Lesion type: [place] artery [place] vs. transplanted heart: [place] heart Associated angina: without angina Qualified Code(s): I25.10 - Atherosclerotic heart disease of [place] coronary artery without angina pectoris (10) CIDP (chronic inflammatory demyelinating polyneuropathy) Code(s): G61.81 - CHRONIC INFLAMMATORY DEMYELINATING POLYNEURITIS (11) Diabetes mellitus Code(s): E11.9 - TYPE 2 DIABETES MELLITUS WITHOUT COMPLICATIONS Qualifiers: Diabetes mellitus type: type 2 Diabetes mellitus termite treater helper insulin use: without prison use Diabetes mellitus complication status: without complication Qualified Code(s): E11.9 - Type 2 diabetes mellitus without complications (12) Diastolic dysfunction Code(s): I51.9 - HEART DISEASE, UNSPECIFIED (13) HTN (hypertension) Code(s): I10 - ESSENTIAL (PRIMARY) HYPERTENSION Qualifiers: Hypertension type: essential hypertension Qualified Code(s): I10 - Essential (primary) hypertension (14) Hypercholesterolemia Code(s): E78.00 - PURE HYPERCHOLESTEROLEMIA, UNSPECIFIED (15) Schatzki's ring of distal esophagus Code(s): K22.2 - ESOPHAGEAL OBSTRUCTION (16) Thrombocytopenia Code(s): D69.6 - THROMBOCYTOPENIA, UNSPECIFIED (17) Colon cancer Code(s): C18.9 - MALIGNANT NEOPLASM OF COLON, UNSPECIFIED Assessment/Plan 1. MRSA bacteremia post port removal c/w line sepsis 2. Pancytopenia and history of multiple myeloma post stem cell transplant 3. C. Diff antigen with diarrhea 4. Metastatic colon cancer with metastasis S/P chemotherapy 5. 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 CAD, angina pectoris 7. Diastolic dysfunction 8. Paroxysmal atrial fibrillation currently in sinus rhythm [id number] score of 3 9. Hypertension 10. DM 11. Hypercholesterolemia PLAN: 1. RANDY no longer indicated with clearance as outlined on previous note. Continue antibiotic coverage 2. IV Lopressor for rate-control if needed 3. Post IVIG, treatment for thrush with Nystatin oral solution and antifungal 4. Neupogen and GI protection Dmitri Ngo MD
[2018-10-03] MEDS ORDERED: PT OWN MED DRAWER 7, Y5N ONE (10:28)
[2018-10-03] MEDS: PANTOPRAZOLE SODIUM 40 MG VIAL IVPUSH SCH (10:34)
[2018-10-03] MEDS: DAPTOMYCIN 700 MG in SODIUM CHLORIDE 50 ML IVPB SCH (10:34)
[2018-10-03] MEDS: MINERAL OIL/PET HY-PHL TOPICAL OINTMENT 454 GM JAR TP SCH ×2 (10:35→21:20)
[2018-10-03 11:15] LABS: BASO % 0.9 % (0-2.0); EOS % 0.3 % (0-4.5); HEMATOCRIT 30.7 % (35.4-49); HEMOGLOBIN 10.2 GM/dL (11.7-16.9); LYMPH % 27.3 % (8-40); MCH 29.3 pg (25.7-33.7); MCHC 33.1 g/dl (32.0-35.9); MEAN CELL VOLUME 88.5 fl (80-96); MEAN PLT VOLUME 8.7 fl (7.5-11.1); MONO % 14.3 % (3.8-10.2); NEUT % 57.2 % (42.8-82.8); RBC 3.47 M/mm3 (4.00-5.60); RDW 20.3 % (11.9-15.9); WHITE BLOOD COUNT 3.8 K/mm3 (4.0-10.0)
[2018-10-03 11:21] LABS: PLATELET COUNT 113 K/MM3 (134-434)
[2018-10-03 11:41] LABS: BLOOD UREA NITROGEN 15.5 mg/dL (7-18); CALCIUM 8.7 mg/dL (8.5-10.1); CREATININE 0.9 mg/dL (0.55-1.3); POTASSIUM 3.3 mmol/L (3.5-5.1)
[2018-10-03] MEDS: TRIPLE LUMEN FLUSH 4 ML ML IVPUSH PRN (12:39)
[2018-10-03] MEDS: MULTIVIT INJ. ADULT COMBO WITH VIT K 1 COMBO 10 ML VIAL IV SCH ×2 (12:39→14:52)
--- NOTE | 2018-10-03 14:25 | PN ---
Progress Note, GENETIC COORDINATOR - Note Progress Note: Selected Entries 10/02/18 10/02/18 10/02/18 06:00 10:00 14:48 Breakfast Lunch Supper Temperature 99.4 F 98.8 F 98.2 F 10/02/18 10/02/18 10/02/18 17:43 21:25 23:19 Breakfast Lunch Supper 0 Temperature 99.1 F 98.1 F 10/03/18 10/03/18 10/03/18 06:56 11:20 14:04 Breakfast 25% Lunch Supper Temperature 98.1 F 99.2 F 10/03/18 14:05 Breakfast Lunch 25% Supper Temperature Laboratory Tests 10/03/18 10:35 WBC 3.8 L Pt's diet upgraded. Reportedly improving swallowing.Pt acceptance is intermittent. po as tolerated. Monitor for sufficient nutritional intake.
--- NOTE | 2018-10-03 16:18 | PN ---
Progress Note, Physician History of Present Illness: AWAKE, ALERT IN BED REPORTS SWALLOWING BETTER TEMPS REMAIN DOWN AFEBRILE - Current Medication List Current Medications: Active Medications Acetaminophen (Ofirmev Injection -) 1,000 mg IVPB Q6H PRN PRN Reason: FEVER Last Admin: 09/16/18 18:37 Dose: 1,000 mg Emollient Ointment (Aquaphor -) 1 applic TP BID [facility] Last Admin: 10/03/18 10:35 Dose: 1 applic IV Flush (Triple Lumen Flush) 4 ml IVPUSH PRN PRN PRN Reason: Protocol Last Admin: 10/03/18 12:39 Dose: 4 ml Caspofungin 50 mg/ Sodium (Chloride) 250 mls @ 250 mls/hr IVPB Q24H [facility] Last Admin: 10/02/18 15:50 Dose: 250 mls/hr Potassium Chloride 20 meq/ (Amino Acids) 1,010 mls @ 84 mls/hr IVPB Q12H [facility] Last Admin: 10/03/18 12:39 Dose: 84 mls/hr Potassium Chloride (Potassium Chloride 10 Meq Premix Ivpb -) 10 meq in 100 mls @ 100 mls/hr IVPB Q1H [facility] Stop: 10/03/18 17:14 Lidocaine/Aluminum/Magnesium/Simeth (Magic Mouthwash *Sjr Formula* -) 5 ml MM Q6HPO PRN PRN Reason: ORAL PAIN/MOUTH SORES Last Admin: 10/01/18 13:17 Dose: 5 ml Metoclopramide HCl (Reglan Injection -) 10 mg IVPUSH Q8H PRN PRN Reason: NAUSEA AND/OR VOMITING Last Admin: 09/20/18 18:52 Dose: 10 mg Multivitamins/Minerals (Infuvite Adult -) 10 ml IV DAILY@1530 [facility] Last Admin: 10/03/18 14:52 Dose: Not Given Nystatin (Nystatin Oral Suspension -) 500,000 units PO Q6HPO [facility] Last Admin: 10/03/18 12:39 Dose: 500,000 units Pantoprazole Sodium (Protonix Iv) 40 mg IVPUSH DAILY [facility] Last Admin: 10/03/18 10:34 Dose: 40 mg - Objective Vital Signs: Vital Signs Temperature 99.2 F 10/03/18 14:04 Pulse Rate 105 H 10/03/18 14:04 Respiratory Rate 20 10/03/18 14:04 Blood Pressure 127/77 10/03/18 14:04 O2 Sat by Pulse Oximetry (%) 98 10/02/18 21:00 Constitutional: Yes: No Distress Eyes: Yes: Conjunctiva Clear Cardiovascular: Yes: Regular Rate and Rhythm, S1, S2 Respiratory: Yes: CTA Bilaterally Gastrointestinal: Yes: Normal Bowel Sounds, Soft. No: Tenderness Edema: No Labs: CBC, BMP 10/03/18 10:35 10/03/18 10:35 INR, PTT INR 1.08 (0.83-1.09) 09/21/18 06:38 Fibrinogen 442.0 mg/dL (238-498) 09/15/18 15:00 Assessment/Plan MRSA BACTEREMIA/ SEPSIS PROBABLE INFECTED PORT S/P REMOVAL THROMBOCYTOPENIA AZOTEMIA IMPROVED METASTATIC CA S/P CHEMO DYSPHAGIA/ THRUSH ? AZOL RESISTANT MER CONTINUE DAPTOMYCIN CONTINUE CANCIDAS PROGNOSIS GUARDED
[2018-10-03] MEDS: CASPOFUNGIN ACETATE 50 MG in SODIUM CHLORIDE 250 ML IVPB SCH (16:25)
[2018-10-03] MEDS: KCL 10 MEQ IVPB 10 MEQ/100 ML INFUS.BAG IVPB SCH ×2 (17:33→18:55)
[2018-10-04] MEDS: NYSTATIN 500,000 UNITS/5 ML SUSPENSION PO SCH ×3 (00:23→11:25)
[2018-10-04] MEDS: POTASSIUM CHLORIDE 20 MEQ in AMINO ACIDS 4.25%/D5W 1,000 ML IVPB SCH ×3 (05:20→23:47)
[2018-10-04 07:52] LABS: HEMATOCRIT 31.9 % (35.4-49); HEMOGLOBIN 10.6 GM/dL (11.7-16.9); MCH 29.5 pg (25.7-33.7); MCHC 33.1 g/dl (32.0-35.9); MEAN CELL VOLUME 89.2 fl (80-96); MEAN PLT VOLUME 8.9 fl (7.5-11.1); PLATELET COUNT 129 K/MM3 (134-434); RBC 3.58 M/mm3 (4.00-5.60); RDW 21.4 % (11.9-15.9); WHITE BLOOD COUNT 4.2 K/mm3 (4.0-10.0)
[2018-10-04 08:04] LABS: ALBUMIN 2.6 g/dl (3.4-5.0); BILIRUBIN,TOTAL 0.5 mg/dL (0.2-1); BLOOD UREA NITROGEN 15.5 mg/dL (7-18); CALCIUM 8.9 mg/dL (8.5-10.1); CREATININE 0.9 mg/dL (0.55-1.3); POTASSIUM 3.4 mmol/L (3.5-5.1); TOT PROT 6.8 g/dl (6.4-8.2)
[2018-10-04] MEDS ORDERED: PT OWN MED DRAWER 7, Y5N ONE ×3 (10:30→21:02)
[2018-10-04] MEDS: PANTOPRAZOLE SODIUM 40 MG VIAL IVPUSH SCH (10:33)
[2018-10-04] MEDS: DAPTOMYCIN 700 MG in SODIUM CHLORIDE 50 ML IVPB SCH (10:34)
[2018-10-04] MEDS: TRIPLE LUMEN FLUSH 4 ML ML IVPUSH PRN (10:34)
[2018-10-04] MEDS: MINERAL OIL/PET HY-PHL TOPICAL OINTMENT 454 GM JAR TP SCH ×2 (10:41→21:33)
--- NOTE | 2018-10-04 12:09 | PN ---
Progress Note, Physician History of Present Illness: AWAKE, ALERT OOB IN CHAIR SWALLOWING STILL REMAINS POOR TEMPS REMAIN DOWN AFEBRILE WBC STABLE 4.2 PLT INCREASED 129 - Current Medication List Current Medications: Active Medications Acetaminophen (Ofirmev Injection -) 1,000 mg IVPB Q6H PRN PRN Reason: FEVER Last Admin: 09/16/18 18:37 Dose: 1,000 mg Emollient Ointment (Aquaphor -) 1 applic TP BID [facility] Last Admin: 10/04/18 10:41 Dose: 1 applic IV Flush (Triple Lumen Flush) 4 ml IVPUSH PRN PRN PRN Reason: Protocol Last Admin: 10/04/18 10:34 Dose: 4 ml Caspofungin 50 mg/ Sodium (Chloride) 250 mls @ 250 mls/hr IVPB Q24H [facility] Last Admin: 10/03/18 16:25 Dose: 250 mls/hr Potassium Chloride 20 meq/ (Amino Acids) 1,010 mls @ 84 mls/hr IVPB Q12H [facility] Last Admin: 10/04/18 10:34 Dose: 84 mls/hr Daptomycin 700 mg/ Sodium (Chloride) 50 mls @ 50 mls/hr IVPB DAILY [facility]; Protocol Last Admin: 10/04/18 10:34 Dose: 50 mls/hr Lidocaine/Aluminum/Magnesium/Simeth (Magic Mouthwash *Sjr Formula* -) 5 ml MM Q6HPO PRN PRN Reason: ORAL PAIN/MOUTH SORES Last Admin: 10/01/18 13:17 Dose: 5 ml Metoclopramide HCl (Reglan Injection -) 10 mg IVPUSH Q8H PRN PRN Reason: NAUSEA AND/OR VOMITING Last Admin: 09/20/18 18:52 Dose: 10 mg Multivitamins/Minerals (Infuvite Adult -) 10 ml IV DAILY@1530 [facility] Last Admin: 10/03/18 14:52 Dose: Not Given Nystatin (Nystatin Oral Suspension -) 500,000 units PO Q6HPO [facility] Last Admin: 10/04/18 11:25 Dose: 500,000 units Pantoprazole Sodium (Protonix Iv) 40 mg IVPUSH DAILY [facility] Last Admin: 10/04/18 10:33 Dose: 40 mg - Objective Vital Signs: Vital Signs Temperature 99.2 F 10/04/18 06:00 Pulse Rate 94 H 10/04/18 06:00 Respiratory Rate 20 10/04/18 06:00 Blood Pressure 120/82 10/04/18 06:00 O2 Sat by Pulse Oximetry (%) 98 10/02/18 21:00 Constitutional: Yes: No Distress Eyes: Yes: Conjunctiva Clear Cardiovascular: Yes: Regular Rate and Rhythm, S1, S2 Respiratory: Yes: CTA Bilaterally Gastrointestinal: Yes: Normal Bowel Sounds, Soft. No: Tenderness Edema: No Labs: CBC, BMP 10/04/18 06:00 10/04/18 06:00 INR, PTT INR 1.08 (0.83-1.09) 09/21/18 06:38 Fibrinogen 442.0 mg/dL (238-498) 09/15/18 15:00 Assessment/Plan MRSA BACTEREMIA/ SEPSIS PROBABLE INFECTED PORT S/P REMOVAL THROMBOCYTOPENIA IMPROVED AZOTEMIA IMPROVED METASTATIC CA S/P CHEMO DYSPHAGIA/ THRUSH ? AZOL RESISTANT MER CONTINUE DAPTOMYCIN DAY # AFTER LAST +BC CONTINUE CANCIDAS PROGNOSIS GUARDED
[2018-10-04] MEDS ORDERED: NYSTATIN 500,000 UNITS/5 ML SUSPENSION PO SCH (12:35)
--- NOTE | 2018-10-04 12:49 | PN ---
Progress Note, CHEMICAL PATHOLOGIST - Note Progress Note: Selected Entries 10/03/18 10/03/18 10/03/18 06:56 11:20 14:04 Breakfast 25% Lunch Supper Temperature 98.1 F 99.2 F 10/03/18 10/03/18 10/03/18 14:05 17:31 21:08 Breakfast Lunch 25% Supper 0 Temperature 97.9 F 10/03/18 10/04/18 22:00 06:00 Breakfast Lunch Supper Temperature 97.9 F 99.2 F Pt reports to eating a little better. He says he ate a whole [place] sandwich on Wednesday. He is drinking 1 Ensure daily. He tolerated 3/4 hot cereal this am but heaved following scr eggs this am and chicken last night. Tongue somewhat coated but less than before? Pt is not accepting enough nutrition by mouth at this time, with some improvement in tolerance reported. consider swish and swallow, as tolerated, as esophageal candidiasis is likely Consider calorie count x 2 days- Sufficient PO intake? Pt is a full code and wants "everything done" to survive- PEG would benefit him as he has had suboptimal nutrition since admission and I doubt PO intake will be sufficient in the short term. Goal can be to wean from PEG, as previously done, if PO intake improves. Pt can be fed nocturnally with PEG, and PO as tolerated day time. Case discussed with medical team.
[2018-10-04] MEDS: ACETAMINOPHEN 1000 MG/100 ML VIAL (NON FORMULARY) IVPB PRN (13:28)
[2018-10-04] MEDS: CLOTRIMAZOLE 10 MG TROCHE (FP) PO SCH ×3 (13:29→23:55)
[2018-10-04] MEDS: CASPOFUNGIN ACETATE 50 MG in SODIUM CHLORIDE 250 ML IVPB SCH (14:45)
--- NOTE | 2018-10-04 17:24 | PN ---
Progress Note (short form) - Note Progress Note: Patient seen and examined Nurses report inadequate p.o. intake OOB - sitting in chair with assistance Last Vital Signs Temp Pulse Resp BP Pulse Ox 97.7 F 97 H 18 101/69 98 10/04/18 16:30 10/04/18 16:30 10/04/18 16:30 10/04/18 16:30 10/02/18 21:00 HEENT:anisocoria Oropharynx: thrush improved Cor: RSR, No murmurs, No gallops Lungs: Clear to P&A Abd: Soft, Normal bowel sounds, No organomegaly Ext:No significant edema Skin: No rashes, Integument intact CBC, BMP 10/04/18 06:00 10/04/18 06:00 Current Medications Generic Name Dose Route Start Last Admin Trade Name Freq PRN Reason Stop Dose Admin Acetaminophen 1,000 mg 09/16/18 10:10 10/04/18 13:28 Ofirmev Injection - IVPB 1,000 mg Q6H PRN Administration FEVER Clotrimazole 10 mg 10/04/18 14:00 10/04/18 13:29 Mycelex Mary's - PO 10 mg 5XD [facility] Administration Emollient Ointment 1 applic 09/21/18 12:00 10/04/18 10:41 Aquaphor - TP 1 applic BID [facility] Administration IV Flush 4 ml 09/28/18 13:05 10/04/18 10:34 Triple Lumen Flush IVPUSH 4 ml PRN PRN Administration Protocol Caspofungin 50 mg/ Sodium 250 mls @ 250 mls/hr 09/29/18 13:00 10/04/18 14:45 Chloride IVPB 250 mls/hr Q24H [facility] Administration Potassium Chloride 20 meq/ 1,010 mls @ 84 mls/hr 10/02/18 17:15 10/04/18 10: 34 Amino Acids IVPB 84 mls/hr Q12H [facility] Administration Daptomycin 700 mg/ Sodium 50 mls @ 50 mls/hr 10/04/18 10:00 10/04/18 10:34 Chloride IVPB 50 mls/hr DAILY [facility] Administration Protocol Lidocaine/Aluminum/Magnesium/Simeth 5 ml 09/16/18 11:07 10/01/18 13:17 Magic Mouthwash *Sjr Formula* - MM 5 ml Q6HPO PRN Administration ORAL PAIN/MOUTH SORES Metoclopramide HCl 10 mg 09/20/18 18:20 09/20/18 18:52 Reglan Injection - IVPUSH 10 mg Q8H PRN Administration NAUSEA AND/OR VOMITING Multivitamins/Minerals 10 ml 09/19/18 15:30 10/03/18 14:52 Infuvite Adult - IV Not Given DAILY@1530 [facility] Pantoprazole Sodium 40 mg 09/21/18 10:15 10/04/18 10:33 Protonix Iv IVPUSH 40 mg DAILY [facility] Administration Impression: Myeloma Colon s/p resecion Liver mets MRSA bacteremia Port infection Pancytopenia-improving Dysphagia Nutrition Rehab Declines rehab center To date declining PEG
--- NOTE | 2018-10-04 18:06 | PN ---
Progress Note (short form) - Note Progress Note: feels weak seated in chair and wants to go back to bed ate small amount of food but not getting a full nutrition soft stools has mouth sores better Vital Signs - 24 hr 10/03/18 10/04/18 10/04/18 22:00 06:00 09:00 Temperature 97.9 F 99.2 F Pulse Rate 94 H 94 H Respiratory 20 20 18 Rate Blood Pressure 118/72 120/82 O2 Sat by Pulse 94 L Oximetry (%) 10/04/18 16:30 Temperature 97.7 F Pulse Rate 97 H Respiratory 18 Rate Blood Pressure 101/69 O2 Sat by Pulse Oximetry (%) Current Medications Generic Name Dose Route Start Last Admin Trade Name Freq PRN Reason Stop Dose Admin Acetaminophen 1,000 mg 10/04/18 18:07 Ofirmev Injection - IVPB Q6H PRN PAIN OR FEVER Clotrimazole 10 mg 10/04/18 14:00 10/04/18 18:42 Mycelex Mary's - PO 10 mg 5XD JAMIE Administration Emollient Ointment 1 applic 09/21/18 12:00 10/04/18 10:41 Aquaphor - TP 1 applic BID JAMIE Administration IV Flush 4 ml 09/28/18 13:05 10/04/18 10:34 Triple Lumen Flush IVPUSH 4 ml PRN PRN Administration Protocol Caspofungin 50 mg/ Sodium 250 mls @ 250 mls/hr 09/29/18 13:00 10/04/18 14:45 Chloride IVPB 250 mls/hr Q24H JAMIE Administration Potassium Chloride 20 meq/ 1,010 mls @ 84 mls/hr 10/02/18 17:15 10/04/18 10: 34 Amino Acids IVPB 84 mls/hr Q12H JAMIE Administration Daptomycin 700 mg/ Sodium 50 mls @ 50 mls/hr 10/04/18 10:00 10/04/18 10:34 Chloride IVPB 50 mls/hr DAILY JAMIE Administration Protocol Fat Emulsion Intravenous 250 mls @ 31.25 mls/hr 10/04/18 22:00 Intralipid - IV DAILY@2200 JAMIE Lidocaine/Aluminum/Magnesium/Simeth 5 ml 09/16/18 11:07 10/01/18 13:17 Magic Mouthwash *Sjr Formula* - MM 5 ml Q6HPO PRN Administration ORAL PAIN/MOUTH SORES Metoclopramide HCl 10 mg 09/20/18 18:20 09/20/18 18:52 Reglan Injection - IVPUSH 10 mg Q8H PRN Administration NAUSEA AND/OR VOMITING Multivitamins/Minerals 10 ml 09/19/18 15:30 10/03/18 14:52 Infuvite Adult - IV Not Given DAILY@1530 JAMIE Pantoprazole Sodium 40 mg 09/21/18 10:15 10/04/18 10:33 Protonix Iv IVPUSH 40 mg DAILY JAMIE Administration Laboratory Results - last 24 hr 10/04/18 10/04/18 06:00 06:00 WBC 4.2 RBC 3.58 L Hgb 10.6 L Hct 31.9 L MCV 89.2 MCH 29.5 MCHC 33.1 RDW 21.4 H Plt Count 129 L MPV 8.9 Sodium 138 Potassium 3.4 L Chloride 108 H Carbon Dioxide 22 Anion Gap 8 BUN 15.5 Creatinine 0.9 Est GFR (CKD-EPI)AfAm 98.55 Est GFR (CKD-EPI)NonAf 85.03 Random Glucose 144 H Calcium 8.9 Total Bilirubin 0.5 AST 41 H ALT 49 Alkaline Phosphatase 171 H Total Protein 6.8 Albumin 2.6 L S1 S2 RRR Pale Lungs decreased breath sounds Abd- soft,tender all areas trace edema add lipids to clinimix Neurology follow up regarding dysphagia GT can help with nutrition along with oral feeding IV antibiotics iv antifungals continue with meds IV fluids-->clinimix eliquis on hold Problem List - Problems (1) Neutropenic sepsis Code(s): A41.9 - SEPSIS, UNSPECIFIED ORGANISM; D70.9 - NEUTROPENIA, UNSPECIFIED (2) Atrial fibrillation Code(s): I48.91 - UNSPECIFIED ATRIAL FIBRILLATION Qualifiers: Atrial fibrillation type: paroxysmal Qualified Code(s): I48.0 - Paroxysmal atrial fibrillation (3) History of colon cancer Code(s): Z85.038 - PERSONAL HISTORY OF MALIGNANT NEOPLASM OF LARGE INTESTINE (4) Multiple myeloma Code(s): C90.00 - MULTIPLE MYELOMA NOT HAVING ACHIEVED REMISSION Qualifiers: Multiple myeloma remission status: unspecified Qualified Code(s): C90.00 - Multiple myeloma not having achieved remission (5) Sepsis Code(s): A41.9 - SEPSIS, UNSPECIFIED ORGANISM Qualifiers: Sepsis type: sepsis due to unspecified organism Qualified Code(s): A41.9 - Sepsis, unspecified organism (6) Anemia Code(s): D64.9 - ANEMIA, UNSPECIFIED Qualifiers: Anemia type: unspecified type Qualified Code(s): D64.9 - Anemia, unspecified
[2018-10-04] MEDS ORDERED: ACETAMINOPHEN 1000 MG/100 ML VIAL (NON FORMULARY) IVPB PRN (18:07)
[2018-10-04] MEDS: FAT EMULSIONS 250 ML IV SCH (21:32)
[2018-10-04] MEDS: MULTIVIT INJ. ADULT COMBO WITH VIT K 1 COMBO 10 ML VIAL IV SCH (23:47)
[2018-10-05] MEDS: POTASSIUM CHLORIDE 20 MEQ in AMINO ACIDS 4.25%/D5W 1,000 ML IVPB SCH ×3 (06:14→23:40)
[2018-10-05] MEDS: CLOTRIMAZOLE 10 MG TROCHE (FP) PO SCH ×5 (06:33→21:29)
[2018-10-05 07:24] LABS: EOS % 0.4 % (0-4.5); HEMATOCRIT 30.4 % (35.4-49); HEMOGLOBIN 10.2 GM/dL (11.7-16.9); LYMPH % 19.1 % (8-40); MCH 29.7 pg (25.7-33.7); MCHC 33.5 g/dl (32.0-35.9); MEAN CELL VOLUME 88.5 fl (80-96); MEAN PLT VOLUME 8.9 fl (7.5-11.1); MONO % 11.1 % (3.8-10.2); NEUT % 68.4 % (42.8-82.8); PLATELET COUNT 128 K/MM3 (134-434); RBC 3.43 M/mm3 (4.00-5.60)
[2018-10-05 07:49] LABS: ALBUMIN 2.5 g/dl (3.4-5.0); BILIRUBIN,TOTAL 0.5 mg/dL (0.2-1); BLOOD UREA NITROGEN 17.3 mg/dL (7-18); CREATININE 0.9 mg/dL (0.55-1.3); POTASSIUM 3.4 mmol/L (3.5-5.1); TOT PROT 6.6 g/dl (6.4-8.2)
[2018-10-05] MEDS: MINERAL OIL/PET HY-PHL TOPICAL OINTMENT 454 GM JAR TP SCH ×2 (09:42→21:29)
[2018-10-05] MEDS: PANTOPRAZOLE SODIUM 40 MG VIAL IVPUSH SCH (09:43)
[2018-10-05] MEDS: DAPTOMYCIN 700 MG in SODIUM CHLORIDE 50 ML IVPB SCH (12:30)
[2018-10-05] MEDS: CASPOFUNGIN ACETATE 50 MG in SODIUM CHLORIDE 250 ML IVPB SCH (13:04)
--- NOTE | 2018-10-05 13:28 | PN ---
Progress Note, EDI MANAGER - Note Progress Note: Selected Entries 10/04/18 10/04/18 10/04/18 06:00 15:00 16:30 Breakfast 25% Lunch 0 Supper 0 Temperature 99.2 F 97.7 F 10/04/18 10/04/18 10/04/18 18:30 20:05 22:00 Breakfast Lunch Supper 25% 25% Temperature 97.6 F 10/05/18 06:00 Breakfast Lunch Supper Temperature 99.8 F H Laboratory Tests 10/03/18 10/04/18 10/05/18 10:35 06:00 05:55 WBC 3.8 L 4.2 5.0 Pt refused breakfast this morning, per HUMAN RESOURCES PROJECT COORDINATOR. Accepted soup for lunch. Pending d/c for STR.
--- NOTE | 2018-10-05 13:41 | PN ---
Progress Note (short form) - Note Progress Note: feels weak states he ate some soup and ice cream-- skipped breakfast because he did not feel like eating soft stools has mouth sores better Vital Signs - 24 hr 10/04/18 10/04/18 10/04/18 16:30 20:05 21:00 Temperature 97.7 F 97.6 F Pulse Rate 97 H 91 H Respiratory 18 20 Rate Blood Pressure 101/69 115/74 O2 Sat by Pulse 96 Oximetry (%) 10/05/18 06:00 Temperature 99.8 F H Pulse Rate 107 H Respiratory 20 Rate Blood Pressure 109/64 O2 Sat by Pulse Oximetry (%) Current Medications Generic Name Dose Route Start Last Admin Trade Name Freq PRN Reason Stop Dose Admin Acetaminophen 1,000 mg 10/04/18 18:07 Ofirmev Injection - IVPB Q6H PRN PAIN OR FEVER Clotrimazole 10 mg 10/04/18 14:00 10/05/18 13:05 Mycelex Mary's - PO 10 mg 5XD JAMIE Administration Emollient Ointment 1 applic 09/21/18 12:00 10/05/18 09:42 Aquaphor - TP 1 applic BID JAMIE Administration IV Flush 4 ml 09/28/18 13:05 10/04/18 10:34 Triple Lumen Flush IVPUSH 4 ml PRN PRN Administration Protocol Caspofungin 50 mg/ Sodium 250 mls @ 250 mls/hr 09/29/18 13:00 10/05/18 13:04 Chloride IVPB 250 mls/hr Q24H JAMIE Administration Potassium Chloride 20 meq/ 1,010 mls @ 84 mls/hr 10/02/18 17:15 10/05/18 06: 14 Amino Acids IVPB Not Given Q12H JAMIE Daptomycin 700 mg/ Sodium 50 mls @ 50 mls/hr 10/04/18 10:00 10/05/18 12:30 Chloride IVPB 50 mls/hr DAILY JAMIE Administration Protocol Fat Emulsion Intravenous 250 mls @ 31.25 mls/hr 10/04/18 22:00 10/04/18 21:32 Intralipid - IV 31.25 mls/hr DAILY@2200 JAMIE Administration Lidocaine/Aluminum/Magnesium/Simeth 5 ml 09/16/18 11:07 10/01/18 13:17 Magic Mouthwash *Sjr Formula* - MM 5 ml Q6HPO PRN Administration ORAL PAIN/MOUTH SORES Metoclopramide HCl 10 mg 09/20/18 18:20 09/20/18 18:52 Reglan Injection - IVPUSH 10 mg Q8H PRN Administration NAUSEA AND/OR VOMITING Multivitamins/Minerals 10 ml 09/19/18 15:30 10/04/18 23:47 Infuvite Adult - IV 10 ml DAILY@1530 JAMIE Administration Pantoprazole Sodium 40 mg 09/21/18 10:15 10/05/18 09:43 Protonix Iv IVPUSH 40 mg DAILY JAMIE Administration Laboratory Results - last 24 hr 10/05/18 10/05/18 05:55 05:55 WBC 5.0 RBC 3.43 L Hgb 10.2 L Hct 30.4 L MCV 88.5 MCH 29.7 MCHC 33.5 RDW 22.0 H Plt Count 128 L MPV 8.9 Absolute Neuts (auto) 3.4 Neutrophils % 68.4 Lymphocytes % 19.1 D Monocytes % 11.1 H Eosinophils % 0.4 Basophils % 1.0 Nucleated RBC % 0 Sodium 136 Potassium 3.4 L Chloride 107 Carbon Dioxide 22 Anion Gap 8 BUN 17.3 Creatinine 0.9 Est GFR (CKD-EPI)AfAm 98.55 Est GFR (CKD-EPI)NonAf 85.03 Random Glucose 138 H Calcium 9.0 Total Bilirubin 0.5 AST 49 H ALT 50 Alkaline Phosphatase 177 H Total Protein 6.6 Albumin 2.5 L S1 S2 RRR Pale Lungs decreased breath sounds Abd- soft,NT edema+ PLAN add lipids to clinimix Neurology follow up regarding dysphagia GT can help with nutrition along with oral feeding IV antibiotics -- per ID-- will be changing to Vanco iv antifungals continue with meds spoke with and pt at length-- they refuse peg tube at this time-- I feel that peg tube can provide nutrition and he can still be able to take PO food till his eating gets better Will need usp antibiotics via picc line /tunneled cath -- duration per ID dc planning-- the and pt are now amenable to Short term rehab Problem List - Problems (1) Neutropenic sepsis Code(s): A41.9 - SEPSIS, UNSPECIFIED ORGANISM; D70.9 - NEUTROPENIA, UNSPECIFIED (2) Atrial fibrillation Code(s): I48.91 - UNSPECIFIED ATRIAL FIBRILLATION Qualifiers: Atrial fibrillation type: paroxysmal Qualified Code(s): I48.0 - Paroxysmal atrial fibrillation (3) History of colon cancer Code(s): Z85.038 - PERSONAL HISTORY OF MALIGNANT NEOPLASM OF LARGE INTESTINE (4) Multiple myeloma Code(s): C90.00 - MULTIPLE MYELOMA NOT HAVING ACHIEVED REMISSION Qualifiers: Multiple myeloma remission status: unspecified Qualified Code(s): C90.00 - Multiple myeloma not having achieved remission (5) Sepsis Code(s): A41.9 - SEPSIS, UNSPECIFIED ORGANISM Qualifiers: Sepsis type: sepsis due to unspecified organism Qualified Code(s): A41.9 - Sepsis, unspecified organism (6) Anemia Code(s): D64.9 - ANEMIA, UNSPECIFIED Qualifiers: Anemia type: unspecified type Qualified Code(s): D64.9 - Anemia, unspecified
[2018-10-05] MEDS ORDERED: POTASSIUM CHLORIDE ORAL LIQUID 20 MEQ/15 ML PO ONE (13:42)
[2018-10-05] MEDS: MULTIVIT INJ. ADULT COMBO WITH VIT K 1 COMBO 10 ML VIAL IV SCH ×2 (15:50→23:41)
[2018-10-05] MEDS: TRIPLE LUMEN FLUSH 4 ML ML IVPUSH PRN (15:51)
[2018-10-05] MEDS ORDERED: PT OWN MED DRAWER 7, Y5N ONE (17:21)
--- NOTE | 2018-10-05 17:47 | PN ---
Progress Note (short form) - Note Progress Note: Patient seen and examined Inadequate p.o intake Sat in chair for one hour Unable to get adequate PT as he gets severe back pain upon getting up Last Vital Signs Temp Pulse Resp BP Pulse Ox 98 F 94 H 18 106/72 96 10/05/18 16:30 10/05/18 16:30 10/05/18 16:30 10/05/18 16:30 10/05/18 09:00 Anisocoria Thrush with coated tongue Lungs-relatively clear Cor-RSR Abd soft Ext- neg CBC, BMP 10/05/18 05:55 10/05/18 05:55 Current Medications Generic Name Dose Route Start Last Admin Trade Name Freq PRN Reason Stop Dose Admin Acetaminophen 1,000 mg 10/04/18 18:07 Ofirmev Injection - IVPB Q6H PRN PAIN OR FEVER Clotrimazole 10 mg 10/04/18 14:00 10/05/18 17:08 Mycelex Mary's - PO 10 mg 5XD JAMIE Administration Emollient Ointment 1 applic 09/21/18 12:00 10/05/18 09:42 Aquaphor - TP 1 applic BID JAMIE Administration IV Flush 4 ml 09/28/18 13:05 10/05/18 15:51 Triple Lumen Flush IVPUSH 4 ml PRN PRN Administration Protocol Caspofungin 50 mg/ Sodium 250 mls @ 250 mls/hr 09/29/18 13:00 10/05/18 13:04 Chloride IVPB 250 mls/hr Q24H JAMIE Administration Potassium Chloride 20 meq/ 1,010 mls @ 84 mls/hr 10/02/18 17:15 10/05/18 17: 08 Amino Acids IVPB 84 mls/hr Q12H JAMIE Administration Daptomycin 700 mg/ Sodium 50 mls @ 50 mls/hr 10/04/18 10:00 10/05/18 12:30 Chloride IVPB 50 mls/hr DAILY JAMIE Administration Protocol Fat Emulsion Intravenous 250 mls @ 31.25 mls/hr 10/04/18 22:00 10/04/18 21:32 Intralipid - IV 31.25 mls/hr DAILY@2200 JAMIE Administration Lidocaine/Aluminum/Magnesium/Simeth 5 ml 09/16/18 11:07 10/01/18 13:17 Magic Mouthwash *Sjr Formula* - MM 5 ml Q6HPO PRN Administration ORAL PAIN/MOUTH SORES Metoclopramide HCl 10 mg 09/20/18 18:20 09/20/18 18:52 Reglan Injection - IVPUSH 10 mg Q8H PRN Administration NAUSEA AND/OR VOMITING Multivitamins/Minerals 10 ml 09/19/18 15:30 10/05/18 15:50 Infuvite Adult - IV Not Given DAILY@1530 JAMIE Pantoprazole Sodium 40 mg 09/21/18 10:15 10/05/18 09:43 Protonix Iv IVPUSH 40 mg DAILY JAMIE Administration Impression: MRSA sepsis Dysphagia colon ca liver mets Myeloma Thrush Malnutrition Deconditioning Consider oxycodone 30 minutes prior to PT to allow patient to function better Spoke to patient about PEG as well -DECLINED Continue antibiotics, antifungals per ID Continue with Clinimix - consider TPN.
--- NOTE | 2018-10-05 20:37 | CONSULT ---
Consult - text type - Consultation Consultation Note: NEUROLOGY PROGRESS: Events reviewed. Patient examined. Swallowing liquids, especially soups without dificulty but can't swallow "the dry stuff." Few days of intermittent coughing. Today developed Mid-back pain and Rib pains sitting in chair which Pt attributes to coughing. Last CXray (09/30/18): show old rib fracture. No infiltrate and makes no comment about the Thoracic spine. MIO: Cushingoid. s/p left iridectomy. Mid-thoracic palp tenderness NEURO: Awake, alert No tongue weakness. Gag OK Normal strength except 4+/5 ankle dorsiflexion (improved). Areflexic in legs Decreased sensation to the ankles. IMP: CIDP- continues to strengthen after recent IVIg Rx. R/O throracic vertebral collapse. R/O thoracic lesion secondary to Myeloma SUGGEST: X Rays of the ribs and thoracic spine Continue swallowing Rx and bedside PT Thank you very much, Carlos Enrique Oleary MD
[2018-10-05] MEDS: FAT EMULSIONS 250 ML IV SCH (21:29)
[2018-10-06] MEDS ORDERED: ACETAMINOPHEN 325 MG TABLET (FP) PO ONE (05:05)
[2018-10-06] MEDS ORDERED: PT OWN MED DRAWER 7, Y5N ONE ×5 (06:17→21:52)
[2018-10-06] MEDS: POTASSIUM CHLORIDE 20 MEQ in AMINO ACIDS 4.25%/D5W 1,000 ML IVPB SCH ×2 (06:20→17:11)
[2018-10-06] MEDS: CLOTRIMAZOLE 10 MG TROCHE (FP) PO SCH ×5 (06:20→21:52)
[2018-10-06 08:24] LABS: EOS % 0.5 % (0-4.5); HEMATOCRIT 29.8 % (35.4-49); HEMOGLOBIN 9.9 GM/dL (11.7-16.9); LYMPH % 21.1 % (8-40); MCH 29.7 pg (25.7-33.7); MCHC 33.3 g/dl (32.0-35.9); MEAN CELL VOLUME 89.3 fl (80-96); MONO % 16.1 % (3.8-10.2); NEUT % 61.3 % (42.8-82.8); PLATELET COUNT 124 K/MM3 (134-434); RBC 3.34 M/mm3 (4.00-5.60); RDW 21.6 % (11.9-15.9); WHITE BLOOD COUNT 3.9 K/mm3 (4.0-10.0)
[2018-10-06 08:30] LABS: ALBUMIN 2.4 g/dl (3.4-5.0); BILIRUBIN,TOTAL 0.4 mg/dL (0.2-1); BLOOD UREA NITROGEN 13.8 mg/dL (7-18); CALCIUM 9.1 mg/dL (8.5-10.1); CREATININE 0.8 mg/dL (0.55-1.3); POTASSIUM 3.3 mmol/L (3.5-5.1); TOT PROT 6.4 g/dl (6.4-8.2)
[2018-10-06] MEDS: PANTOPRAZOLE SODIUM 40 MG VIAL IVPUSH SCH (10:37)
[2018-10-06] MEDS: MINERAL OIL/PET HY-PHL TOPICAL OINTMENT 454 GM JAR TP SCH ×2 (10:37→21:45)
[2018-10-06 10:46] LABS: ANISOCYTOSIS 2+; MACROCYTOSIS 0; PLATELET ESTIMATE DECREASED
[2018-10-06] MEDS: DAPTOMYCIN 700 MG in SODIUM CHLORIDE 50 ML IVPB SCH (12:28)
--- NOTE | 2018-10-06 12:32 | PN ---
Progress Note, BUILDING INSULATION INSTALLER - Note Progress Note: Selected Entries 10/05/18 10/05/18 10:00 22:00 Breakfast 25% 25% Lunch 50% 50% Laboratory Tests 10/06/18 06:20 WBC 3.9 L PO intake limited. Reportedly tolerating liquids better than solids. However, taking very little liquids as well. Accepted 4 tsp soup only today.Refused breakfast. Very picky about what he will try to eat/drink. On Clinimix. Pt refusing TF. Grimacing during session with c/o pain across abdomen. Staff aware. Encourage Ensure/as tolerated, to increase nutritional intake. PEG indicated, but refusing. Pt is full code. Counseled pt with Dr. Brand regarding benefit of PEG to supplement PO intake for nutrition, hydration, meds. Pt has had PEG before, with sucessful use and weaning. Pt would like Dr. Monaco to advise him regarding PEG insertion.
--- NOTE | 2018-10-06 12:44 | PN ---
Progress Note, Physician History of Present Illness: Dysphagia improving, tolerating some ice cream and cereal. Bld cx 09/22 has cleared c/w line sepsis. On 28 days of Daptomycin post bld cx clearance 09/17. - Current Medication List Current Medications: Active Medications Clotrimazole (Mycelex Mary's -) 10 mg PO 5XD [facility] Last Admin: 10/06/18 10:36 Dose: 10 mg Emollient Ointment (Aquaphor -) 1 applic TP BID [facility] Last Admin: 10/06/18 10:37 Dose: 1 applic IV Flush (Triple Lumen Flush) 4 ml IVPUSH PRN PRN PRN Reason: Protocol Last Admin: 10/05/18 15:51 Dose: 4 ml Caspofungin 50 mg/ Sodium (Chloride) 250 mls @ 250 mls/hr IVPB Q24H [facility] Last Admin: 10/05/18 13:04 Dose: 250 mls/hr Potassium Chloride 20 meq/ (Amino Acids) 1,010 mls @ 84 mls/hr IVPB Q12H [facility] Last Admin: 10/06/18 06:20 Dose: Not Given Daptomycin 700 mg/ Sodium (Chloride) 50 mls @ 50 mls/hr IVPB DAILY [facility]; Protocol Last Admin: 10/06/18 12:28 Dose: 50 mls/hr Fat Emulsion Intravenous (Intralipid -) 250 mls @ 31.25 mls/hr IV DAILY@2200 [facility] Last Admin: 10/05/18 21:29 Dose: 31.25 mls/hr Lidocaine/Aluminum/Magnesium/Simeth (Magic Mouthwash *Sjr Formula* -) 5 ml MM Q6HPO PRN PRN Reason: ORAL PAIN/MOUTH SORES Last Admin: 10/01/18 13:17 Dose: 5 ml Metoclopramide HCl (Reglan Injection -) 10 mg IVPUSH Q8H PRN PRN Reason: NAUSEA AND/OR VOMITING Last Admin: 09/20/18 18:52 Dose: 10 mg Multivitamins/Minerals (Infuvite Adult -) 10 ml IV DAILY@1530 [facility] Last Admin: 10/05/18 23:41 Dose: 10 ml Pantoprazole Sodium (Protonix Iv) 40 mg IVPUSH DAILY [facility] Last Admin: 10/06/18 10:37 Dose: 40 mg - Objective Vital Signs: Vital Signs Temperature 98.6 F 10/06/18 09:30 Pulse Rate 89 10/06/18 09:30 Respiratory Rate 20 10/06/18 09:30 Blood Pressure 115/73 10/06/18 09:30 O2 Sat by Pulse Oximetry (%) 96 10/05/18 20:37 Labs: CBC, BMP 10/06/18 06:20 10/06/18 06:20 INR, PTT INR 1.08 (0.83-1.09) 09/21/18 06:38 Fibrinogen 442.0 mg/dL (238-498) 09/15/18 15:00 Problem List - Problems (1) Atrial fibrillation Code(s): I48.91 - UNSPECIFIED ATRIAL FIBRILLATION Qualifiers: Atrial fibrillation type: paroxysmal Qualified Code(s): I48.0 - Paroxysmal atrial fibrillation (2) Dysphagia, oropharyngeal phase Code(s): R13.12 - DYSPHAGIA, OROPHARYNGEAL PHASE (3) MRSA (methicillin resistant staph aureus) culture positive Code(s): Z22.322 - CARRIER OR SUSPECTED CARRIER OF METHICILLIN RESIS STAPH (4) Multiple myeloma Code(s): C90.00 - MULTIPLE MYELOMA NOT HAVING ACHIEVED REMISSION Qualifiers: Multiple myeloma remission status: unspecified Qualified Code(s): C90.00 - Multiple myeloma not having achieved remission (5) CAD (coronary artery disease) Code(s): I25.10 - ATHSCL HEART DISEASE OF [place] CORONARY ARTERY W/O ANG PCTRS Qualifiers: Coronary Disease-Associated Artery/Lesion type: [place] artery [place] vs. transplanted heart: [place] heart Associated angina: without angina Qualified Code(s): I25.10 - Atherosclerotic heart disease of [place] coronary artery without angina pectoris (6) CIDP (chronic inflammatory demyelinating polyneuropathy) Code(s): G61.81 - CHRONIC INFLAMMATORY DEMYELINATING POLYNEURITIS (7) Diabetes mellitus Code(s): E11.9 - TYPE 2 DIABETES MELLITUS WITHOUT COMPLICATIONS Qualifiers: Diabetes mellitus type: type 2 Diabetes mellitus jail insulin use: without jail use Diabetes mellitus complication status: without complication Qualified Code(s): E11.9 - Type 2 diabetes mellitus without complications (8) Diastolic dysfunction Code(s): I51.9 - HEART DISEASE, UNSPECIFIED (9) HTN (hypertension) Code(s): I10 - ESSENTIAL (PRIMARY) HYPERTENSION Qualifiers: Hypertension type: essential hypertension Qualified Code(s): I10 - Essential (primary) hypertension (10) Hypercholesterolemia Code(s): E78.00 - PURE HYPERCHOLESTEROLEMIA, UNSPECIFIED Assessment/Plan 09/14/2018 Echo: Mild cLVH, LVEF 60%, mild MR, can't r/o endocarditis 1. MRSA bacteremia post port removal c/w line sepsis 2. Pancytopenia and history of multiple myeloma post stem cell transplant 3. C. Diff antigen with diarrhea 4. Metastatic colon cancer with metastasis S/P chemotherapy 5. 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 CAD, angina pectoris 7. Diastolic dysfunction 8. Paroxysmal atrial fibrillation currently in sinus rhythm [id number] score of 3 9. Hypertension 10. DM 11. Hypercholesterolemia PLAN: 1. RANDY no longer indicated with clearance as outlined on previous note. Continue antibiotic coverage 2. IV Lopressor for rate-control if needed 3. Post IVIG, treatment for thrush with Nystatin oral solution and antifungal 4. Neupogen and GI protection
[2018-10-06] MEDS: CASPOFUNGIN ACETATE 50 MG in SODIUM CHLORIDE 250 ML IVPB SCH (13:12)
[2018-10-06] MEDS ORDERED: oxyCODONE HCL 5 MG TABLET PO PRN (13:19)
[2018-10-06] MEDS ORDERED: POTASSIUM CHLORIDE ORAL LIQUID 20 MEQ/15 ML PO ONE (13:28)
--- NOTE | 2018-10-06 13:28 | PN ---
Progress Note (short form) - Note Progress Note: feels weak has pain in both sides of lower rib cage Can not sit up in chair for even a half hour due to pain He ate one bite of a hamburger yesterday Today did not eat breakfast as he wa downstairs for xrays, but did not drink Ensure , he did not attempt to eat the breakfast that was kept at bedside when he came back from xrays He ate 2-3 spoons of soup for lunch when came to see him today and pt laid down in bed gets sharps spasms of pain in both sides of rib cage was coughing with the soup as per RN soft stools Vital Signs - 24 hr 10/05/18 10/05/18 10/05/18 14:45 16:30 19:36 Temperature 98.2 F 98 F 98.3 F Pulse Rate 98 H 94 H 96 H Respiratory 20 18 20 Rate Blood Pressure 129/68 106/72 116/68 O2 Sat by Pulse Oximetry (%) 10/05/18 10/06/18 10/06/18 20:37 06:18 09:30 Temperature 98.3 F 98.6 F Pulse Rate 91 H 89 Respiratory 20 20 Rate Blood Pressure 114/76 115/73 O2 Sat by Pulse 96 Oximetry (%) Current Medications Generic Name Dose Route Start Last Admin Trade Name Freq PRN Reason Stop Dose Admin Clotrimazole 10 mg 10/04/18 14:00 10/06/18 13:13 Mycelex Mary's - PO 10 mg 5XD JAMIE Administration Emollient Ointment 1 applic 09/21/18 12:00 10/06/18 10:37 Aquaphor - TP 1 applic BID JAMIE Administration IV Flush 4 ml 09/28/18 13:05 10/05/18 15:51 Triple Lumen Flush IVPUSH 4 ml PRN PRN Administration Protocol Caspofungin 50 mg/ Sodium 250 mls @ 250 mls/hr 09/29/18 13:00 10/06/18 13:12 Chloride IVPB 250 mls/hr Q24H JAMIE Administration Potassium Chloride 20 meq/ 1,010 mls @ 84 mls/hr 10/02/18 17:15 10/06/18 06: 20 Amino Acids IVPB Not Given Q12H JAMIE Daptomycin 700 mg/ Sodium 50 mls @ 50 mls/hr 10/04/18 10:00 10/06/18 12:28 Chloride IVPB 50 mls/hr DAILY JAMIE Administration Protocol Fat Emulsion Intravenous 250 mls @ 31.25 mls/hr 10/04/18 22:00 10/05/18 21:29 Intralipid - IV 31.25 mls/hr DAILY@2200 JAMIE Administration Lidocaine/Aluminum/Magnesium/Simeth 5 ml 09/16/18 11:07 10/01/18 13:17 Magic Mouthwash *Sjr Formula* - MM 5 ml Q6HPO PRN Administration ORAL PAIN/MOUTH SORES Metoclopramide HCl 10 mg 09/20/18 18:20 09/20/18 18:52 Reglan Injection - IVPUSH 10 mg Q8H PRN Administration NAUSEA AND/OR VOMITING Multivitamins/Minerals 10 ml 09/19/18 15:30 10/05/18 23:41 Infuvite Adult - IV 10 ml DAILY@1530 JAMIE Administration Pantoprazole Sodium 40 mg 09/21/18 10:15 10/06/18 10:37 Protonix Iv IVPUSH 40 mg DAILY JAMIE Administration Laboratory Results - last 24 hr 10/06/18 10/06/18 06:20 06:20 WBC 3.9 L RBC 3.34 L Hgb 9.9 L Hct 29.8 L MCV 89.3 MCH 29.7 MCHC 33.3 RDW 21.6 H Plt Count 124 L MPV 9.0 Absolute Neuts (auto) 2.4 Neutrophils % 61.3 Lymphocytes % 21.1 Monocytes % 16.1 H Eosinophils % 0.5 Basophils % 1.0 Nucleated RBC % 0 Hypochromia 0 Platelet Estimate Decreased Polychromasia 0 Poikilocytosis 0 Anisocytosis 2+ Microcytosis 1+ Macrocytosis 0 Sodium 137 Potassium 3.3 L Chloride 107 Carbon Dioxide 22 Anion Gap 8 BUN 13.8 Creatinine 0.8 Est GFR (CKD-EPI)AfAm 103.44 Est GFR (CKD-EPI)NonAf 89.25 Random Glucose 123 H Calcium 9.1 Total Bilirubin 0.4 AST 49 H ALT 55 Alkaline Phosphatase 177 H Total Protein 6.4 Albumin 2.4 L S1 S2 RRR Pale Lungs decreased breath sounds tender b/l chest wall Abd- soft,NT edema+ PLAN thoracic spine xrays noted-- does not appear to have lesions will order B/L ribs xrays klevin control -- Oxycodone on lipids / clinimix [facility] will not administer TPN or clinimix Neurology follow up noted IV antibiotics -- per ID-- will be changing to Vanco iv antifungals-- may dc as per ID continue with meds again I spoke with and pt at length, swallow therapist and RN at bedside too -- we discussed how the peg tube is a temporary option for pt to get nutrition while he gets better and rehabilitated - he can still eat foods by mouth during that time They both wish to discuss this with Dr Monaco - they will agree as long as he says so per pt and Will need usp antibiotics via picc line /tunneled cath -- duration per ID dc planning-- the and pt are now amenable to Short term rehab Problem List - Problems (1) Neutropenic sepsis Code(s): A41.9 - SEPSIS, UNSPECIFIED ORGANISM; D70.9 - NEUTROPENIA, UNSPECIFIED (2) Atrial fibrillation Code(s): I48.91 - UNSPECIFIED ATRIAL FIBRILLATION Qualifiers: Atrial fibrillation type: paroxysmal Qualified Code(s): I48.0 - Paroxysmal atrial fibrillation (3) History of colon cancer Code(s): Z85.038 - PERSONAL HISTORY OF MALIGNANT NEOPLASM OF LARGE INTESTINE (4) Multiple myeloma Code(s): C90.00 - MULTIPLE MYELOMA NOT HAVING ACHIEVED REMISSION Qualifiers: Multiple myeloma remission status: unspecified Qualified Code(s): C90.00 - Multiple myeloma not having achieved remission (5) Sepsis Code(s): A41.9 - SEPSIS, UNSPECIFIED ORGANISM Qualifiers: Sepsis type: sepsis due to unspecified organism Qualified Code(s): A41.9 - Sepsis, unspecified organism (6) Anemia Code(s): D64.9 - ANEMIA, UNSPECIFIED Qualifiers: Anemia type: unspecified type Qualified Code(s): D64.9 - Anemia, unspecified
[2018-10-06] MEDS: MULTIVIT INJ. ADULT COMBO WITH VIT K 1 COMBO 10 ML VIAL IV SCH (15:57)
[2018-10-06] MEDS: AMINO ACIDS/PROTEIN HYDROLYS 30 ML LIQUID.PKT PO SCH (17:11)
[2018-10-06] MEDS: FAT EMULSIONS 250 ML IV SCH (21:42)
[2018-10-07] MEDS: POTASSIUM CHLORIDE 20 MEQ in AMINO ACIDS 4.25%/D5W 1,000 ML IVPB SCH ×3 (04:07→17:21)
[2018-10-07] MEDS: MULTIVIT INJ. ADULT COMBO WITH VIT K 1 COMBO 10 ML VIAL IV SCH ×2 (04:08→17:23)
[2018-10-07] MEDS ORDERED: PT OWN MED DRAWER 7, Y5N ONE ×5 (05:21→20:43)
[2018-10-07] MEDS: CLOTRIMAZOLE 10 MG TROCHE (FP) PO SCH ×5 (06:05→21:20)
[2018-10-07 08:00] LABS: BLOOD UREA NITROGEN 15.2 mg/dL (7-18); CALCIUM 9.1 mg/dL (8.5-10.1); CREATININE 0.9 mg/dL (0.55-1.3); POTASSIUM 3.6 mmol/L (3.5-5.1)
[2018-10-07] MEDS: AMINO ACIDS/PROTEIN HYDROLYS 30 ML LIQUID.PKT PO SCH ×2 (10:03→18:36)
[2018-10-07] MEDS: DAPTOMYCIN 700 MG in SODIUM CHLORIDE 50 ML IVPB SCH (10:17)
[2018-10-07] MEDS: PANTOPRAZOLE SODIUM 40 MG VIAL IVPUSH SCH (10:18)
[2018-10-07] MEDS: MINERAL OIL/PET HY-PHL TOPICAL OINTMENT 454 GM JAR TP SCH ×2 (10:18→21:20)
[2018-10-07] MEDS: TRIPLE LUMEN FLUSH 4 ML ML IVPUSH PRN (10:19)
--- NOTE | 2018-10-07 11:59 | PN ---
Progress Note, Physician History of Present Illness: Dysphagia persists with inadequate oral intake, declines PEG. Bld cx 09/22 has cleared c/w line sepsis. On 28 days of Daptomycin post bld cx clearance 09/17. - Current Medication List Current Medications: Active Medications Amino Acids (Prosource No Carb Liquid Pkt) 30 ml PO BID@0800,1730 [facility] Last Admin: 10/07/18 10:03 Dose: 30 ml Clotrimazole (Mycelex Mary's -) 10 mg PO 5XD [facility] Last Admin: 10/07/18 10:03 Dose: 10 mg Emollient Ointment (Aquaphor -) 1 applic TP BID [facility] Last Admin: 10/07/18 10:18 Dose: 1 applic IV Flush (Triple Lumen Flush) 4 ml IVPUSH PRN PRN PRN Reason: Protocol Last Admin: 10/07/18 10:19 Dose: 4 ml Caspofungin 50 mg/ Sodium (Chloride) 250 mls @ 250 mls/hr IVPB Q24H [facility] Last Admin: 10/06/18 13:12 Dose: 250 mls/hr Potassium Chloride 20 meq/ (Amino Acids) 1,010 mls @ 84 mls/hr IVPB Q12H [facility] Last Admin: 10/07/18 05:16 Dose: Not Given Daptomycin 700 mg/ Sodium (Chloride) 50 mls @ 50 mls/hr IVPB DAILY [facility]; Protocol Last Admin: 10/07/18 10:17 Dose: 50 mls/hr Fat Emulsion Intravenous (Intralipid -) 250 mls @ 31.25 mls/hr IV DAILY@2200 [facility] Last Admin: 10/06/18 21:42 Dose: 31.25 mls/hr Lidocaine/Aluminum/Magnesium/Simeth (Magic Mouthwash *Sjr Formula* -) 5 ml MM Q6HPO PRN PRN Reason: ORAL PAIN/MOUTH SORES Last Admin: 10/01/18 13:17 Dose: 5 ml Metoclopramide HCl (Reglan Injection -) 10 mg IVPUSH Q8H PRN PRN Reason: NAUSEA AND/OR VOMITING Last Admin: 09/20/18 18:52 Dose: 10 mg Multivitamins/Minerals (Infuvite Adult -) 10 ml IV DAILY@1530 [facility] Last Admin: 10/07/18 04:08 Dose: 10 ml Oxycodone HCl (Roxicodone -) 5 mg PO Q6H PRN PRN Reason: PAIN LEVEL 6-10 Last Admin: 10/06/18 13:56 Dose: 5 mg Pantoprazole Sodium (Protonix Iv) 40 mg IVPUSH DAILY [facility] Last Admin: 10/07/18 10:18 Dose: 40 mg - Objective Vital Signs: Vital Signs Temperature 99.8 F H 10/07/18 06:00 Pulse Rate 108 H 10/07/18 06:00 Respiratory Rate 10/07/18 06:00 Blood Pressure 112/71 10/07/18 06:00 O2 Sat by Pulse Oximetry (%) 96 10/06/18 21:00 Constitutional: Yes: No Distress, Calm Neck: Yes: Supple Cardiovascular: Yes: Regular Rate and Rhythm Respiratory: Yes: Regular, Diminished Gastrointestinal: Yes: Soft, Hypoactive Bowel Sounds Edema: No Labs: CBC, BMP 10/06/18 06:20 10/07/18 06:00 INR, PTT INR 1.08 (0.83-1.09) 09/21/18 06:38 Fibrinogen 442.0 mg/dL (238-498) 09/15/18 15:00 - ....Imaging Chest X-ray: Report Reviewed (NAD) Problem List - Problems (1) Atrial fibrillation Code(s): I48.91 - UNSPECIFIED ATRIAL FIBRILLATION Qualifiers: Atrial fibrillation type: paroxysmal Qualified Code(s): I48.0 - Paroxysmal atrial fibrillation (2) Dysphagia, oropharyngeal phase Code(s): R13.12 - DYSPHAGIA, OROPHARYNGEAL PHASE (3) MRSA (methicillin resistant staph aureus) culture positive Code(s): Z22.322 - CARRIER OR SUSPECTED CARRIER OF METHICILLIN RESIS STAPH (4) Multiple myeloma Code(s): C90.00 - MULTIPLE MYELOMA NOT HAVING ACHIEVED REMISSION Qualifiers: Multiple myeloma remission status: unspecified Qualified Code(s): C90.00 - Multiple myeloma not having achieved remission (5) CAD (coronary artery disease) Code(s): I25.10 - ATHSCL HEART DISEASE OF [place] CORONARY ARTERY W/O ANG PCTRS Qualifiers: Coronary Disease-Associated Artery/Lesion type: [place] artery [place] vs. transplanted heart: [place] heart Associated angina: without angina Qualified Code(s): I25.10 - Atherosclerotic heart disease of [place] coronary artery without angina pectoris (6) CIDP (chronic inflammatory demyelinating polyneuropathy) Code(s): G61.81 - CHRONIC INFLAMMATORY DEMYELINATING POLYNEURITIS (7) Diabetes mellitus Code(s): E11.9 - TYPE 2 DIABETES MELLITUS WITHOUT COMPLICATIONS Qualifiers: Diabetes mellitus type: type 2 Diabetes mellitus long-term insulin use: without long-term use Diabetes mellitus complication status: without complication Qualified Code(s): E11.9 - Type 2 diabetes mellitus without complications (8) Diastolic dysfunction Code(s): I51.9 - HEART DISEASE, UNSPECIFIED (9) HTN (hypertension) Code(s): I10 - ESSENTIAL (PRIMARY) HYPERTENSION Qualifiers: Hypertension type: essential hypertension Qualified Code(s): I10 - Essential (primary) hypertension (10) Hypercholesterolemia Code(s): E78.00 - PURE HYPERCHOLESTEROLEMIA, UNSPECIFIED Assessment/Plan 09/14/2018 Echo: Mild cLVH, LVEF 60%, mild MR, can't r/o endocarditis 1. MRSA bacteremia post port removal c/w line sepsis 2. Pancytopenia and history of multiple myeloma post stem cell transplant 3. C. Diff antigen with diarrhea 4. Metastatic colon cancer with metastasis S/P chemotherapy 5. 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 CAD, angina pectoris 7. Diastolic dysfunction 8. Paroxysmal atrial fibrillation currently in sinus rhythm [id number] score of 3 9. Hypertension 10. DM 11. Hypercholesterolemia PLAN: 1. RANDY no longer indicated with clearance as outlined on previous note. Continue Daptomycin Day #22/28 after last +BC 2. IV Lopressor for rate-control if needed 3. Post IVIG, treatment for thrush with Clotrimazole oral lozenges and completed 1 week Caspofungin course 4. Maintained on TPN, await decision on PEG, continue GI protection
--- NOTE | 2018-10-07 12:04 | PN ---
Progress Note, SERVICE WRITER - Note Progress Note: Selected Entries 10/06/18 10/06/18 10/06/18 06:18 09:30 10:00 Supper 0 Temperature 98.3 F 98.6 F 98.6 F 10/06/18 10/06/18 10/06/18 15:30 16:30 22:00 Supper Temperature 98.8 F 98.3 F 98.3 F 10/07/18 06:00 Supper Temperature 99.8 F H Laboratory Tests 10/06/18 06:20 WBC 3.9 L CAROUSEL ATTENDANT observed cough response this am after sips of Ensure. Pt refusing trial of most PO. Continued poor nutritional support. Clinimix is a temporary, insufficient measure. Pt and are aware and have been counseled frequently. Pt is a full code and would like everything done to survive. Pending Neurology f/u regarding PEG decision. Pt and his would like his input.
--- NOTE | 2018-10-07 13:15 | PN ---
Progress Note (short form) - Note Progress Note: pt seen/examined at bedside extensive talk with Dr. Epstein yesterday and with pt/ / Katy nix/ KASSANDRA and Hand Expansion Envelope Maker. Adamantly refusing PEG -- Till Dr. Monaco says yes Requesting Dr. Monaco to come back and reassess. Vital Signs Temp 99.8 F H 10/07/18 06:00 Pulse 108 H 10/07/18 06:00 Resp 20 10/07/18 06:00 BP 112/71 10/07/18 06:00 Pulse Ox 96 10/06/18 21:00 Intake & Output 10/06/18 10/07/18 10/07/18 23:59 11:59 23:59 Intake Total 1850 1150 Output Total 800 350 Balance 1050 800 Weight 195 lb 4.8 oz Intake: IV 1000 1150 Clinimix 1000ml 84cc/hr 1000 900 Intralipids @ 31.2 mls/hr 250 IVPB 350 Oral 250 Oral Supplement 250 Output: Urine 800 350 Void 800 350 Other: Voiding Method Urinal # Unmeasured Voids Void 1 Bowel Movement Yes Weight Measurement Method [facility] Active Medications Amino Acids (Prosource No Carb Liquid Pkt) 30 ml PO BID@0800,1730 [facility] Last Admin: 10/07/18 10:03 Dose: 30 ml Clotrimazole (Mycelex Mary's -) 10 mg PO 5XD [facility] Last Admin: 10/07/18 10:03 Dose: 10 mg Emollient Ointment (Aquaphor -) 1 applic TP BID [facility] Last Admin: 10/07/18 10:18 Dose: 1 applic IV Flush (Triple Lumen Flush) 4 ml IVPUSH PRN PRN PRN Reason: Protocol Last Admin: 10/07/18 10:19 Dose: 4 ml Caspofungin 50 mg/ Sodium (Chloride) 250 mls @ 250 mls/hr IVPB Q24H [facility] Last Admin: 10/06/18 13:12 Dose: 250 mls/hr Potassium Chloride 20 meq/ (Amino Acids) 1,010 mls @ 84 mls/hr IVPB Q12H [facility] Last Admin: 10/07/18 05:16 Dose: Not Given Daptomycin 700 mg/ Sodium (Chloride) 50 mls @ 50 mls/hr IVPB DAILY [facility]; Protocol Last Admin: 10/07/18 10:17 Dose: 50 mls/hr Fat Emulsion Intravenous (Intralipid -) 250 mls @ 31.25 mls/hr IV DAILY@2200 [facility] Last Admin: 10/06/18 21:42 Dose: 31.25 mls/hr Lidocaine/Aluminum/Magnesium/Simeth (Magic Mouthwash *Sjr Formula* -) 5 ml MM Q6HPO PRN PRN Reason: ORAL PAIN/MOUTH SORES Last Admin: 10/01/18 13:17 Dose: 5 ml Metoclopramide HCl (Reglan Injection -) 10 mg IVPUSH Q8H PRN PRN Reason: NAUSEA AND/OR VOMITING Last Admin: 09/20/18 18:52 Dose: 10 mg Multivitamins/Minerals (Infuvite Adult -) 10 ml IV DAILY@1530 [facility] Last Admin: 10/07/18 04:08 Dose: 10 ml Oxycodone HCl (Roxicodone -) 5 mg PO Q6H PRN PRN Reason: PAIN LEVEL 6-10 Last Admin: 10/06/18 13:56 Dose: 5 mg Pantoprazole Sodium (Protonix Iv) 40 mg IVPUSH DAILY [facility] Last Admin: 10/07/18 10:18 Dose: 40 mg CBC, BMP 10/06/18 06:20 10/07/18 06:00 Physical Exam S1 S2 RRR Thrush + but Improved Lungs decreased breath sounds Abd- soft,NT edema+ Neuro- aox 3 PLAN thoracic spine xrays noted-- does not appear to have lesions continue present care on lipids / clinimix NH will not administer TPN or clinimix Neurology follow up IV antibiotics -- per ID-- will follow condition gaurded Problem List - Problems (1) Dysphagia, oropharyngeal phase Code(s): R13.12 - DYSPHAGIA, OROPHARYNGEAL PHASE (2) Leukopenia Code(s): D72.819 - DECREASED WHITE BLOOD CELL COUNT, UNSPECIFIED Qualifiers: Leukopenia type: unspecified Qualified Code(s): D72.819 - Decreased white blood cell count, unspecified (3) MRSA (methicillin resistant staph aureus) culture positive Code(s): Z22.322 - CARRIER OR SUSPECTED CARRIER OF METHICILLIN RESIS STAPH (4) Multiple myeloma Code(s): C90.00 - MULTIPLE MYELOMA NOT HAVING ACHIEVED REMISSION Qualifiers: Multiple myeloma remission status: unspecified Qualified Code(s): C90.00 - Multiple myeloma not having achieved remission (5) Neutropenic sepsis Code(s): A41.9 - SEPSIS, UNSPECIFIED ORGANISM; D70.9 - NEUTROPENIA, UNSPECIFIED (6) CAD (coronary artery disease) Code(s): I25.10 - ATHSCL HEART DISEASE OF [place] CORONARY ARTERY W/O ANG PCTRS Qualifiers: Coronary Disease-Associated Artery/Lesion type: [place] artery [place] vs. transplanted heart: [place] heart Associated angina: without angina Qualified Code(s): I25.10 - Atherosclerotic heart disease of [place] coronary artery without angina pectoris (7) CIDP (chronic inflammatory demyelinating polyneuropathy) Code(s): G61.81 - CHRONIC INFLAMMATORY DEMYELINATING POLYNEURITIS
--- NOTE | 2018-10-07 13:47 | PN ---
Progress Note, Physician History of Present Illness: AWAKE, ALERT SUPINE IN BED SWALLOWING STILL REMAINS POOR TOLERATED ONLY JUICE AND JELLO TODAY LOW GRADE TEMP TODAY - Current Medication List Current Medications: Active Medications Amino Acids (Prosource No Carb Liquid Pkt) 30 ml PO BID@0800,1730 [facility] Last Admin: 10/07/18 10:03 Dose: 30 ml Clotrimazole (Mycelex Mary's -) 10 mg PO 5XD [facility] Last Admin: 10/07/18 10:03 Dose: 10 mg Emollient Ointment (Aquaphor -) 1 applic TP BID [facility] Last Admin: 10/07/18 10:18 Dose: 1 applic IV Flush (Triple Lumen Flush) 4 ml IVPUSH PRN PRN PRN Reason: Protocol Last Admin: 10/07/18 10:19 Dose: 4 ml Caspofungin 50 mg/ Sodium (Chloride) 250 mls @ 250 mls/hr IVPB Q24H [facility] Last Admin: 10/06/18 13:12 Dose: 250 mls/hr Potassium Chloride 20 meq/ (Amino Acids) 1,010 mls @ 84 mls/hr IVPB Q12H [facility] Last Admin: 10/07/18 05:16 Dose: Not Given Daptomycin 700 mg/ Sodium (Chloride) 50 mls @ 50 mls/hr IVPB DAILY [facility]; Protocol Last Admin: 10/07/18 10:17 Dose: 50 mls/hr Fat Emulsion Intravenous (Intralipid -) 250 mls @ 31.25 mls/hr IV DAILY@2200 [facility] Last Admin: 10/06/18 21:42 Dose: 31.25 mls/hr Lidocaine/Aluminum/Magnesium/Simeth (Magic Mouthwash *Sjr Formula* -) 5 ml MM Q6HPO PRN PRN Reason: ORAL PAIN/MOUTH SORES Last Admin: 10/01/18 13:17 Dose: 5 ml Metoclopramide HCl (Reglan Injection -) 10 mg IVPUSH Q8H PRN PRN Reason: NAUSEA AND/OR VOMITING Last Admin: 09/20/18 18:52 Dose: 10 mg Multivitamins/Minerals (Infuvite Adult -) 10 ml IV DAILY@1530 [facility] Last Admin: 10/07/18 04:08 Dose: 10 ml Oxycodone HCl (Roxicodone -) 5 mg PO Q6H PRN PRN Reason: PAIN LEVEL 6-10 Last Admin: 10/06/18 13:56 Dose: 5 mg Pantoprazole Sodium (Protonix Iv) 40 mg IVPUSH DAILY [facility] Last Admin: 10/07/18 10:18 Dose: 40 mg - Objective Vital Signs: Vital Signs Temperature 99.8 F H 10/07/18 06:00 Pulse Rate 108 H 10/07/18 06:00 Respiratory Rate 20 10/07/18 06:00 Blood Pressure 112/71 10/07/18 06:00 O2 Sat by Pulse Oximetry (%) 96 10/06/18 21:00 Constitutional: Yes: No Distress Eyes: Yes: Conjunctiva Clear Cardiovascular: Yes: Regular Rate and Rhythm, S1, S2 Respiratory: Yes: CTA Bilaterally Gastrointestinal: Yes: Normal Bowel Sounds, Soft. No: Tenderness Labs: CBC, BMP 10/06/18 06:20 10/07/18 06:00 INR, PTT INR 1.08 (0.83-1.09) 09/21/18 06:38 Fibrinogen 442.0 mg/dL (238-498) 09/15/18 15:00 Assessment/Plan MRSA BACTEREMIA/ SEPSIS PROBABLE INFECTED PORT S/P REMOVAL THROMBOCYTOPENIA IMPROVED AZOTEMIA IMPROVED METASTATIC CA S/P CHEMO DYSPHAGIA/ THRUSH ? AZOL RESISTANT MER CONTINUE DAPTOMYCIN DAY #22/28 AFTER LAST +BC COMPLETED 1 WK COURSE CANCIDAS. WILL D/C PROGNOSIS GUARDED
[2018-10-07] MEDS: CASPOFUNGIN ACETATE 50 MG in SODIUM CHLORIDE 250 ML IVPB SCH (15:25)
[2018-10-07] MEDS: FAT EMULSIONS 250 ML IV SCH (21:19)
[2018-10-08] MEDS: CLOTRIMAZOLE 10 MG TROCHE (FP) PO SCH ×5 (05:55→21:43)
[2018-10-08] MEDS: POTASSIUM CHLORIDE 20 MEQ in AMINO ACIDS 4.25%/D5W 1,000 ML IVPB SCH ×2 (05:56→18:04)
[2018-10-08] MEDS: MULTIVIT INJ. ADULT COMBO WITH VIT K 1 COMBO 10 ML VIAL IV SCH ×2 (05:57→16:09)
--- NOTE | 2018-10-08 10:28 | PN ---
Progress Note (short form) - Note Progress Note: feels weak has pain in both sides of lower rib cage Can not sit up in chair for even a half hour due to pain unable to eat breakfast-- had pt eat a spoon ful of cereeal-- he coughed and gagged after He drank Ensure after-- started coughing after taking 3 sips from straw gets sharps spasms of pain in both sides of rib cage Vital Signs - 24 hr 10/07/18 10/07/18 10/07/18 16:30 21:00 21:54 Temperature 98.1 F 98.1 F Pulse Rate 84 84 Respiratory 18 18 Rate Blood Pressure 105/70 105/70 O2 Sat by Pulse 96 Oximetry (%) 10/08/18 07:11 Temperature 98 F Pulse Rate 99 H Respiratory 18 Rate Blood Pressure 128/64 O2 Sat by Pulse Oximetry (%) Current Medications Generic Name Dose Route Start Last Admin Trade Name Freq PRN Reason Stop Dose Admin Amino Acids 30 ml 10/06/18 17:30 10/07/18 18:36 Prosource No Carb Liquid Pkt PO 30 ml BID@0800,1730 [facility] Administration Clotrimazole 10 mg 10/04/18 14:00 10/08/18 05:55 Mycelex Mary's - PO 10 mg 5XD [facility] Administration Emollient Ointment 1 applic 09/21/18 12:00 10/07/18 21:20 Aquaphor - TP 1 applic BID [facility] Administration IV Flush 4 ml 09/28/18 13:05 10/07/18 10:19 Triple Lumen Flush IVPUSH 4 ml PRN PRN Administration Protocol Potassium Chloride 20 meq/ 1,010 mls @ 84 mls/hr 10/02/18 17:15 10/08/18 05: 56 Amino Acids IVPB 84 mls/hr Q12H [facility] Administration Daptomycin 700 mg/ Sodium 50 mls @ 50 mls/hr 10/04/18 10:00 10/07/18 10:17 Chloride IVPB 50 mls/hr DAILY [facility] Administration Protocol Fat Emulsion Intravenous 250 mls @ 31.25 mls/hr 10/04/18 22:00 10/07/18 21:19 Intralipid - IV 31.25 mls/hr DAILY@2200 [facility] Administration Lidocaine/Aluminum/Magnesium/Simeth 5 ml 09/16/18 11:07 10/01/18 13:17 Magic Mouthwash *Sjr Formula* - MM 5 ml Q6HPO PRN Administration ORAL PAIN/MOUTH SORES Metoclopramide HCl 10 mg 09/20/18 18:20 09/20/18 18:52 Reglan Injection - IVPUSH 10 mg Q8H PRN Administration NAUSEA AND/OR VOMITING Multivitamins/Minerals 10 ml 09/19/18 15:30 10/08/18 05:57 Infuvite Adult - IV 10 ml DAILY@1530 [facility] Administration Oxycodone HCl 5 mg 10/06/18 13:19 10/06/18 13:56 Roxicodone - PO 5 mg Q6H PRN Administration PAIN LEVEL 6-10 Pantoprazole Sodium 40 mg 09/21/18 10:15 10/07/18 10:18 Protonix Iv IVPUSH 40 mg DAILY [facility] Administration S1 S2 RRR Pale Lungs decreased breath sounds tender b/l chest wall Abd- soft,NT edema+ PLAN thoracic spine xrays noted-- does not appear to have lesions B/L ribs xrays-- no lesions pain control -- increase Oxycodone on lipids / clinimix NH will not administer TPN or clinimix IV antibiotics -- per ID-- will be changing to Vanco if planning on discharge iv antifungals-- dc as per ID continue with meds discussed with pt about peg tube is a temporary option for pt to get nutrition while he gets better and rehabilitated - he can still eat foods by mouth during that time waiting to d/w Neurology Will need intermodal dispatcher antibiotics via picc line /tunneled cath -- duration per ID- - 1 week dc planning-- the and pt are now amenable to Short term rehab Problem List - Problems (1) Neutropenic sepsis Code(s): A41.9 - SEPSIS, UNSPECIFIED ORGANISM; D70.9 - NEUTROPENIA, UNSPECIFIED (2) Atrial fibrillation Code(s): I48.91 - UNSPECIFIED ATRIAL FIBRILLATION Qualifiers: Atrial fibrillation type: paroxysmal Qualified Code(s): I48.0 - Paroxysmal atrial fibrillation (3) History of colon cancer Code(s): Z85.038 - PERSONAL HISTORY OF MALIGNANT NEOPLASM OF LARGE INTESTINE (4) Multiple myeloma Code(s): C90.00 - MULTIPLE MYELOMA NOT HAVING ACHIEVED REMISSION Qualifiers: Multiple myeloma remission status: unspecified Qualified Code(s): C90.00 - Multiple myeloma not having achieved remission (5) Sepsis Code(s): A41.9 - SEPSIS, UNSPECIFIED ORGANISM Qualifiers: Sepsis type: sepsis due to unspecified organism Qualified Code(s): A41.9 - Sepsis, unspecified organism (6) Anemia Code(s): D64.9 - ANEMIA, UNSPECIFIED Qualifiers: Anemia type: unspecified type Qualified Code(s): D64.9 - Anemia, unspecified
[2018-10-08] MEDS: MINERAL OIL/PET HY-PHL TOPICAL OINTMENT 454 GM JAR TP SCH ×2 (10:46→21:44)
[2018-10-08] MEDS: DAPTOMYCIN 700 MG in SODIUM CHLORIDE 50 ML IVPB SCH (10:46)
[2018-10-08] MEDS: PANTOPRAZOLE SODIUM 40 MG VIAL IVPUSH SCH (10:47)
[2018-10-08] MEDS: AMINO ACIDS/PROTEIN HYDROLYS 30 ML LIQUID.PKT PO SCH ×2 (10:47→18:04)
[2018-10-08] MEDS ORDERED: PT OWN MED DRAWER 7, Y5N ONE ×2 (10:49→21:32)
[2018-10-08] MEDS: oxyCODONE HCL 5 MG TABLET PO PRN ×2 (13:25→19:57)
--- NOTE | 2018-10-08 21:31 | PN ---
Progress Note (short form) - Note Progress Note: Patient seen in follow up. No acute events overnight. No new complaints. Ongoing difficulty swallowing. Ongoing diffuse pain - limiting mobilization. Meds reviewed. Current Medications Amino Acids (Prosource No Carb Liquid Pkt) 30 ml PO BID@0800,1730 [facility] Last Admin: 10/08/18 18:04 Dose: 30 ml Clotrimazole (Mycelex Mary's -) 10 mg PO 5XD [facility] Last Admin: 10/08/18 18:04 Dose: 10 mg Emollient Ointment (Aquaphor -) 1 applic TP BID [facility] Last Admin: 10/08/18 10:46 Dose: 1 applic IV Flush (Triple Lumen Flush) 4 ml IVPUSH PRN PRN PRN Reason: Protocol Last Admin: 10/07/18 10:19 Dose: 4 ml Potassium Chloride 20 meq/ (Amino Acids) 1,010 mls @ 84 mls/hr IVPB Q12H [facility] Last Admin: 10/08/18 18:04 Dose: 84 mls/hr Daptomycin 700 mg/ Sodium (Chloride) 50 mls @ 50 mls/hr IVPB DAILY [facility]; Protocol Last Admin: 10/08/18 10:46 Dose: 50 mls/hr Fat Emulsion Intravenous (Intralipid -) 250 mls @ 31.25 mls/hr IV DAILY@2200 [facility] Last Admin: 10/07/18 21:19 Dose: 31.25 mls/hr Lidocaine/Aluminum/Magnesium/Simeth (Magic Mouthwash *Sjr Formula* -) 5 ml MM Q6HPO PRN PRN Reason: ORAL PAIN/MOUTH SORES Last Admin: 10/01/18 13:17 Dose: 5 ml Metoclopramide HCl (Reglan Injection -) 10 mg IVPUSH Q8H PRN PRN Reason: NAUSEA AND/OR VOMITING Last Admin: 09/20/18 18:52 Dose: 10 mg Multivitamins/Minerals (Infuvite Adult -) 10 ml IV DAILY@1530 [facility] Last Admin: 10/08/18 16:09 Dose: Not Given Oxycodone HCl (Roxicodone -) 10 mg PO Q4H PRN PRN Reason: PAIN LEVEL 6-10 Last Admin: 10/08/18 19:57 Dose: 10 mg Pantoprazole Sodium (Protonix Iv) 40 mg IVPUSH DAILY [facility] Last Admin: 10/08/18 10:47 Dose: 40 mg On exam: Last Vital Signs Temp Pulse Resp BP Pulse Ox 98.4 F 100 H 18 118/76 98 10/08/18 10:00 10/08/18 10:00 10/08/18 10:00 10/08/18 10:00 10/08/18 09:00 General: Supine in bed, frail, ill appearing. Extremities: No pallor or icterus. No pedal edema. No palpable lymphadenopathy. CVS: S1, S2, regular, no gallop or murmur. Chest: good air entry bilaterally, clear Abdomen: Not distended, non-tender, no palpable organomegaly. Neuro: interactive, non-focal. Labs reviewed (10/07) CBC, BMP 10/06/18 06:20 10/07/18 06:00 Impression Metastatic colon cancer - most recent chemotherapy -- FOLFIRI - August 2018 Currently admitted following episode MRSA sepsis Port infection s/p removal Now with failure to thrive, ongoing uncontrolled pain. Dysphagia - ?CIDP - trial of IVIG administered recently - unclear benefit. Tube administered nutrition being considered. On daptomycin Prior neutropenia - resolved Ongoing supportive care. Ongoing determination if any benefit in placement of PEG, for palliation, in light of overall situation with poor prognosis Pain control - may benefit from higher dose opioid prior to PT
[2018-10-08] MEDS: FAT EMULSIONS 250 ML IV SCH (21:42)
[2018-10-09] MEDS ORDERED: PT OWN MED DRAWER 7, Y5N ONE ×4 (05:58→21:16)
[2018-10-09] MEDS: POTASSIUM CHLORIDE 20 MEQ in AMINO ACIDS 4.25%/D5W 1,000 ML IVPB SCH (06:03)
[2018-10-09] MEDS: MULTIVIT INJ. ADULT COMBO WITH VIT K 1 COMBO 10 ML VIAL IV SCH ×3 (06:04→21:23)
[2018-10-09] MEDS: CLOTRIMAZOLE 10 MG TROCHE (FP) PO SCH ×5 (06:07→21:24)
[2018-10-09] MEDS: TRIPLE LUMEN FLUSH 4 ML ML IVPUSH PRN (06:22)
[2018-10-09] MEDS: AMINO ACIDS/PROTEIN HYDROLYS 30 ML LIQUID.PKT PO SCH ×2 (10:29→18:39)
[2018-10-09] MEDS: PANTOPRAZOLE SODIUM 40 MG VIAL IVPUSH SCH (10:30)
[2018-10-09] MEDS: DAPTOMYCIN 700 MG in SODIUM CHLORIDE 50 ML IVPB SCH (10:31)
--- NOTE | 2018-10-09 10:39 | PN ---
Progress Note (short form) - Note Progress Note: feels weak has pain in both sides of lower rib cage-- oxycodone increased unable to eat breakfast-- had pt eat a spoon ful of cereal-- he coughed and gagged after very poor po intake does not want to attempt Vital Signs - 24 hr 10/08/18 10/08/18 10/09/18 21:00 22:00 06:00 Temperature 98 F 98 F Pulse Rate 106 H 108 H Respiratory 18 20 Rate Blood Pressure 130/62 116/70 O2 Sat by Pulse 93 L Oximetry (%) 10/09/18 10/09/18 15:44 17:49 Temperature 98.3 F 99.3 F Pulse Rate 109 H 107 H Respiratory 20 20 Rate Blood Pressure 121/70 125/69 O2 Sat by Pulse Oximetry (%) Current Medications Generic Name Dose Route Start Last Admin Trade Name Freq PRN Reason Stop Dose Admin Amino Acids 30 ml 10/06/18 17:30 10/09/18 18:39 Prosource No Carb Liquid Pkt PO 30 ml BID@0800,1730 JAMIE Administration Clotrimazole 10 mg 10/04/18 14:00 10/09/18 14:44 Mycelex Mary's - PO 10 mg 5XD JAMIE Administration Emollient Ointment 1 applic 09/21/18 12:00 10/09/18 11:08 Aquaphor - TP 1 applic BID JAMIE Administration IV Flush 4 ml 09/28/18 13:05 10/09/18 06:22 Triple Lumen Flush IVPUSH 4 ml PRN PRN Administration Protocol Daptomycin 700 mg/ Sodium 50 mls @ 50 mls/hr 10/04/18 10:00 10/09/18 10:31 Chloride IVPB 50 mls/hr DAILY JAMIE Administration Protocol Fat Emulsion Intravenous 250 mls @ 31.25 mls/hr 10/04/18 22:00 10/08/18 21:42 Intralipid - IV 31.25 mls/hr DAILY@2200 JAMIE Administration Amino Acids 1,000 mls @ 84 mls/hr 10/09/18 19:15 Clinimix - IV Q12H JAMIE Lidocaine/Aluminum/Magnesium/Simeth 5 ml 09/16/18 11:07 10/01/18 13:17 Magic Mouthwash *Sjr Formula* - MM 5 ml Q6HPO PRN Administration ORAL PAIN/MOUTH SORES Metoclopramide HCl 10 mg 09/20/18 18:20 09/20/18 18:52 Reglan Injection - IVPUSH 10 mg Q8H PRN Administration NAUSEA AND/OR VOMITING Multivitamins/Minerals 10 ml 09/19/18 15:30 10/09/18 06:04 Infuvite Adult - IV 10 ml DAILY@1530 JAMIE Administration Oxycodone HCl 10 mg 10/08/18 11:18 10/09/18 14:43 Roxicodone - PO 10 mg Q4H PRN Administration PAIN LEVEL 6-10 Pantoprazole Sodium 40 mg 09/21/18 10:15 10/09/18 10:30 Protonix Iv IVPUSH 40 mg DAILY JAMIE Administration S1 S2 RRR Pale Lungs decreased breath sounds tender b/l chest wall Abd- soft,NT edema+ PLAN dc protonix thoracic spine xrays noted-- does not appear to have lesions B/L ribs xrays-- no lesions pain control -- increase Oxycodone on lipids / clinimix NH will not administer TPN or clinimix IV antibiotics -- per ID-- will be changing to Vanco if planning on discharge iv antifungals-- dc as per ID , completed continue with meds discussed with pt about peg tube is a temporary option for pt to get nutrition while he gets better and rehabilitated - he can still eat foods by mouth during that time pt wishes to d/w Neurology Will need termite inspector antibiotics via picc line /tunneled cath -- duration per ID- - 1 week dc planning-- the and pt are now amenable to Short term rehab Problem List - Problems (1) Neutropenic sepsis Code(s): A41.9 - SEPSIS, UNSPECIFIED ORGANISM; D70.9 - NEUTROPENIA, UNSPECIFIED (2) Atrial fibrillation Code(s): I48.91 - UNSPECIFIED ATRIAL FIBRILLATION Qualifiers: Atrial fibrillation type: paroxysmal Qualified Code(s): I48.0 - Paroxysmal atrial fibrillation (3) History of colon cancer Code(s): Z85.038 - PERSONAL HISTORY OF MALIGNANT NEOPLASM OF LARGE INTESTINE (4) Multiple myeloma Code(s): C90.00 - MULTIPLE MYELOMA NOT HAVING ACHIEVED REMISSION Qualifiers: Multiple myeloma remission status: unspecified Qualified Code(s): C90.00 - Multiple myeloma not having achieved remission (5) Sepsis Code(s): A41.9 - SEPSIS, UNSPECIFIED ORGANISM Qualifiers: Sepsis type: sepsis due to unspecified organism Qualified Code(s): A41.9 - Sepsis, unspecified organism (6) Anemia Code(s): D64.9 - ANEMIA, UNSPECIFIED Qualifiers: Anemia type: unspecified type Qualified Code(s): D64.9 - Anemia, unspecified
[2018-10-09] MEDS: MINERAL OIL/PET HY-PHL TOPICAL OINTMENT 454 GM JAR TP SCH ×2 (11:08→21:26)
--- NOTE | 2018-10-09 13:00 | PN ---
Progress Note (short form) - Note Progress Note: Patient seen in follow up. No acute events overnight. No new complaints. Ongoing difficulty swallowing. Reports improvement in pain with Oxycodone. Meds reviewed. Current Medications Amino Acids (Prosource No Carb Liquid Pkt) 30 ml PO BID@0800,1730 [facility] Last Admin: 10/09/18 10:29 Dose: 30 ml Clotrimazole (Mycelex Mary's -) 10 mg PO 5XD [facility] Last Admin: 10/09/18 11:11 Dose: 10 mg Emollient Ointment (Aquaphor -) 1 applic TP BID [facility] Last Admin: 10/09/18 11:08 Dose: 1 applic IV Flush (Triple Lumen Flush) 4 ml IVPUSH PRN PRN PRN Reason: Protocol Last Admin: 10/09/18 06:22 Dose: 4 ml Potassium Chloride 20 meq/ (Amino Acids) 1,010 mls @ 84 mls/hr IVPB Q12H [facility] Last Admin: 10/09/18 06:03 Dose: 84 mls/hr Daptomycin 700 mg/ Sodium (Chloride) 50 mls @ 50 mls/hr IVPB DAILY [facility]; Protocol Last Admin: 10/09/18 10:31 Dose: 50 mls/hr Fat Emulsion Intravenous (Intralipid -) 250 mls @ 31.25 mls/hr IV DAILY@2200 [facility] Last Admin: 10/08/18 21:42 Dose: 31.25 mls/hr Lidocaine/Aluminum/Magnesium/Simeth (Magic Mouthwash *Sjr Formula* -) 5 ml MM Q6HPO PRN PRN Reason: ORAL PAIN/MOUTH SORES Last Admin: 10/01/18 13:17 Dose: 5 ml Metoclopramide HCl (Reglan Injection -) 10 mg IVPUSH Q8H PRN PRN Reason: NAUSEA AND/OR VOMITING Last Admin: 09/20/18 18:52 Dose: 10 mg Multivitamins/Minerals (Infuvite Adult -) 10 ml IV DAILY@1530 [facility] Last Admin: 10/09/18 06:04 Dose: 10 ml Oxycodone HCl (Roxicodone -) 10 mg PO Q4H PRN PRN Reason: PAIN LEVEL 6-10 Last Admin: 10/08/18 19:57 Dose: 10 mg Pantoprazole Sodium (Protonix Iv) 40 mg IVPUSH DAILY JAMIE Last Admin: 10/09/18 10:30 Dose: 40 mg On exam: Last Vital Signs Temp Pulse Resp BP Pulse Ox 98 F 108 H 20 116/70 93 L 10/09/18 06:00 10/09/18 06:00 10/09/18 06:00 10/09/18 06:00 10/08/18 21:00 General: Supine in bed. Extremities: No pallor or icterus. No pedal edema. Abdomen: Not distended Neuro: alert and oriented, non-focal. Labs reviewed (10/07) CBC, BMP 10/06/18 06:20 10/07/18 06:00 Impression Metastatic colon cancer - most recent chemotherapy -- FOLFIRI - August 2018 Currently admitted following episode MRSA sepsis Port infection s/p removal Now with failure to thrive, ongoing uncontrolled pain. Dysphagia - ?CIDP - trial of IVIG administered recently - unclear benefit. Tube administered nutrition being considered. On daptomycin Prior neutropenia - resolved Ongoing supportive care. Ongoing determination if any benefit in placement of PEG, for palliation, in light of overall situation with poor prognosis Pain control - may benefit from higher dose opioid prior to PT
[2018-10-09] MEDS: oxyCODONE HCL 5 MG TABLET PO PRN ×2 (14:43→22:32)
[2018-10-09] MEDS: AMINO ACIDS 4.25%/D5W 1,000 ML IV SCH (21:22)
[2018-10-09] MEDS: FAT EMULSIONS 250 ML IV SCH (21:25)
[2018-10-10] MEDS ORDERED: PT OWN MED DRAWER 7, Y5N ONE ×2 (06:18→09:54)
[2018-10-10] MEDS: CLOTRIMAZOLE 10 MG TROCHE (FP) PO SCH ×5 (06:27→22:45)
[2018-10-10] MEDS: AMINO ACIDS 4.25%/D5W 1,000 ML IV SCH ×4 (08:15→23:14)
[2018-10-10] MEDS: DAPTOMYCIN 700 MG in SODIUM CHLORIDE 50 ML IVPB SCH (10:28)
[2018-10-10] MEDS: oxyCODONE HCL 5 MG TABLET PO PRN ×2 (10:28→17:14)
[2018-10-10] MEDS: AMINO ACIDS/PROTEIN HYDROLYS 30 ML LIQUID.PKT PO SCH ×2 (10:29→17:14)
[2018-10-10] MEDS: MINERAL OIL/PET HY-PHL TOPICAL OINTMENT 454 GM JAR TP SCH ×2 (10:29→21:49)
--- NOTE | 2018-10-10 11:05 | PN ---
Progress Note (short form) - Note Progress Note: pt seen/ examined chart reviewed all f/u noted awake/ comfortable Eating a little-- Mainly Ensure Vital Signs Temp 99.6 F 10/10/18 07:12 Pulse 107 H 10/10/18 07:12 Resp 18 10/10/18 07:12 BP 114/67 10/10/18 07:12 Pulse Ox 93 L 10/08/18 21:00 Intake & Output 10/09/18 10/09/18 10/10/18 11:59 23:59 11:59 Intake Total 759 1163 805 Output Total 300 200 Balance 459 963 805 Weight 195 lb 4 oz Intake: IV 759 1063 805 Clinimix 1000ml 84cc/hr 588 1001 588 Intralipids @ 31.2 mls/hr 171 62 217 IVPB 100 0 Output: Urine 300 200 Void 300 200 Other: Voiding Method Urinal Urinal Urinal # Unmeasured Voids Void 1 Bowel Movement No No Active Medications Amino Acids (Prosource No Carb Liquid Pkt) 30 ml PO BID@0800,1730 [facility] Last Admin: 10/10/18 10:29 Dose: 30 ml Clotrimazole (Mycelex Mary's -) 10 mg PO 5XD [facility] Last Admin: 10/10/18 10:29 Dose: 10 mg Emollient Ointment (Aquaphor -) 1 applic TP BID [facility] Last Admin: 10/10/18 10:29 Dose: 1 applic IV Flush (Triple Lumen Flush) 4 ml IVPUSH PRN PRN PRN Reason: Protocol Last Admin: 10/09/18 06:22 Dose: 4 ml Daptomycin 700 mg/ Sodium (Chloride) 50 mls @ 50 mls/hr IVPB DAILY [facility]; Protocol Last Admin: 10/10/18 10:28 Dose: 50 mls/hr Fat Emulsion Intravenous (Intralipid -) 250 mls @ 31.25 mls/hr IV DAILY@2200 [facility] Last Admin: 10/09/18 21:25 Dose: 31.25 mls/hr Amino Acids (Clinimix -) 1,000 mls @ 84 mls/hr IV Q12H [facility] Last Admin: 10/10/18 08:15 Dose: Not Given Lidocaine/Aluminum/Magnesium/Simeth (Magic Mouthwash *Sjr Formula* -) 5 ml MM Q6HPO PRN PRN Reason: ORAL PAIN/MOUTH SORES Last Admin: 10/01/18 13:17 Dose: 5 ml Metoclopramide HCl (Reglan Injection -) 10 mg IVPUSH Q8H PRN PRN Reason: NAUSEA AND/OR VOMITING Last Admin: 09/20/18 18:52 Dose: 10 mg Multivitamins/Minerals (Infuvite Adult -) 10 ml IV DAILY@1530 JAMIE Last Admin: 10/09/18 21:23 Dose: 10 ml Oxycodone HCl (Roxicodone -) 10 mg PO Q4H PRN PRN Reason: PAIN LEVEL 6-10 Last Admin: 10/10/18 10:28 Dose: 10 mg CBC, BMP 10/06/18 06:20 10/07/18 06:00 Physical Exam Awake/ comfortable S1 S2 RRR Lungs decreased breath sounds tender b/l chest wall Abd- soft,NT edema+ PLAN Overall condition same on lipids / clinimix continue present care Neurology f/u still pending NH will not administer TPN or clinimix IV antibiotics -- per ID-- will be changing to Vanco if planning on discharge iv antifungals-- dc as per ID , completed . Will need senior care antibiotics via picc line /tunneled cath -- duration per ID- - 1 week dc planning-- the and pt are now amenable to Short term rehab Consider transfer to [place] with Clinimix-- Pt refuses PEg and eating very little Will discuss with / dr. Sim Discussed with Clam Grader also. Will follow Problem List - Problems (1) Dysphagia, oropharyngeal phase Code(s): R13.12 - DYSPHAGIA, OROPHARYNGEAL PHASE (2) Leukopenia Code(s): D72.819 - DECREASED WHITE BLOOD CELL COUNT, UNSPECIFIED Qualifiers: Leukopenia type: unspecified Qualified Code(s): D72.819 - Decreased white blood cell count, unspecified (3) MRSA (methicillin resistant staph aureus) culture positive Code(s): Z22.322 - CARRIER OR SUSPECTED CARRIER OF METHICILLIN RESIS STAPH (4) Multiple myeloma Code(s): C90.00 - MULTIPLE MYELOMA NOT HAVING ACHIEVED REMISSION Qualifiers: Multiple myeloma remission status: unspecified Qualified Code(s): C90.00 - Multiple myeloma not having achieved remission (5) Neutropenic sepsis Code(s): A41.9 - SEPSIS, UNSPECIFIED ORGANISM; D70.9 - NEUTROPENIA, UNSPECIFIED (6) CAD (coronary artery disease) Code(s): I25.10 - ATHSCL HEART DISEASE OF [place] CORONARY ARTERY W/O ANG PCTRS Qualifiers: Coronary Disease-Associated Artery/Lesion type: [place] artery [place] vs. transplanted heart: [place] heart Associated angina: without angina Qualified Code(s): I25.10 - Atherosclerotic heart disease of [place] coronary artery without angina pectoris (7) CIDP (chronic inflammatory demyelinating polyneuropathy) Code(s): G61.81 - CHRONIC INFLAMMATORY DEMYELINATING POLYNEURITIS
--- NOTE | 2018-10-10 11:07 | PN ---
Progress Note, Physician History of Present Illness: Dysphagia persists with inadequate oral intake, drinking Ensure, declines PEG. Bld cx 09/22 has cleared c/w line sepsis. On 28 days of Daptomycin post bld cx clearance 09/17. - Current Medication List Current Medications: Active Medications Amino Acids (Prosource No Carb Liquid Pkt) 30 ml PO BID@0800,1730 [facility] Last Admin: 10/10/18 10:29 Dose: 30 ml Clotrimazole (Mycelex Mary's -) 10 mg PO 5XD [facility] Last Admin: 10/10/18 10:29 Dose: 10 mg Emollient Ointment (Aquaphor -) 1 applic TP BID [facility] Last Admin: 10/10/18 10:29 Dose: 1 applic IV Flush (Triple Lumen Flush) 4 ml IVPUSH PRN PRN PRN Reason: Protocol Last Admin: 10/09/18 06:22 Dose: 4 ml Daptomycin 700 mg/ Sodium (Chloride) 50 mls @ 50 mls/hr IVPB DAILY [facility]; Protocol Last Admin: 10/10/18 10:28 Dose: 50 mls/hr Fat Emulsion Intravenous (Intralipid -) 250 mls @ 31.25 mls/hr IV DAILY@2200 [facility] Last Admin: 10/09/18 21:25 Dose: 31.25 mls/hr Amino Acids (Clinimix -) 1,000 mls @ 84 mls/hr IV Q12H [facility] Last Admin: 10/10/18 08:15 Dose: Not Given Lidocaine/Aluminum/Magnesium/Simeth (Magic Mouthwash *Sjr Formula* -) 5 ml MM Q6HPO PRN PRN Reason: ORAL PAIN/MOUTH SORES Last Admin: 10/01/18 13:17 Dose: 5 ml Metoclopramide HCl (Reglan Injection -) 10 mg IVPUSH Q8H PRN PRN Reason: NAUSEA AND/OR VOMITING Last Admin: 09/20/18 18:52 Dose: 10 mg Multivitamins/Minerals (Infuvite Adult -) 10 ml IV DAILY@1530 [facility] Last Admin: 10/09/18 21:23 Dose: 10 ml Oxycodone HCl (Roxicodone -) 10 mg PO Q4H PRN PRN Reason: PAIN LEVEL 6-10 Last Admin: 10/10/18 10:28 Dose: 10 mg - Objective Vital Signs: Vital Signs Temperature 99.6 F 10/10/18 07:12 Pulse Rate 107 H 10/10/18 07:12 Respiratory Rate 18 10/10/18 07:12 Blood Pressure 114/67 10/10/18 07:12 O2 Sat by Pulse Oximetry (%) 93 L 10/08/18 21:00 Constitutional: Yes: No Distress, Calm Neck: Yes: Supple Cardiovascular: Yes: Regular Rate and Rhythm Respiratory: Yes: Regular, Diminished Gastrointestinal: Yes: Soft, Hypoactive Bowel Sounds Edema: No Labs: CBC, BMP 10/06/18 06:20 10/07/18 06:00 INR, PTT INR 1.08 (0.83-1.09) 09/21/18 06:38 Fibrinogen 442.0 mg/dL (238-498) 09/15/18 15:00 Problem List - Problems (1) Atrial fibrillation Code(s): I48.91 - UNSPECIFIED ATRIAL FIBRILLATION Qualifiers: Atrial fibrillation type: paroxysmal Qualified Code(s): I48.0 - Paroxysmal atrial fibrillation (2) Dysphagia, oropharyngeal phase Code(s): R13.12 - DYSPHAGIA, OROPHARYNGEAL PHASE (3) MRSA (methicillin resistant staph aureus) culture positive Code(s): Z22.322 - CARRIER OR SUSPECTED CARRIER OF METHICILLIN RESIS STAPH (4) Multiple myeloma Code(s): C90.00 - MULTIPLE MYELOMA NOT HAVING ACHIEVED REMISSION Qualifiers: Multiple myeloma remission status: unspecified Qualified Code(s): C90.00 - Multiple myeloma not having achieved remission (5) CAD (coronary artery disease) Code(s): I25.10 - ATHSCL HEART DISEASE OF [place] CORONARY ARTERY W/O ANG PCTRS Qualifiers: Coronary Disease-Associated Artery/Lesion type: [place] artery [place] vs. transplanted heart: [place] heart Associated angina: without angina Qualified Code(s): I25.10 - Atherosclerotic heart disease of [place] coronary artery without angina pectoris (6) CIDP (chronic inflammatory demyelinating polyneuropathy) Code(s): G61.81 - CHRONIC INFLAMMATORY DEMYELINATING POLYNEURITIS (7) Diabetes mellitus Code(s): E11.9 - TYPE 2 DIABETES MELLITUS WITHOUT COMPLICATIONS Qualifiers: Diabetes mellitus type: type 2 Diabetes mellitus remote computer terminal operator insulin use: without remote computer terminal operator use Diabetes mellitus complication status: without complication Qualified Code(s): E11.9 - Type 2 diabetes mellitus without complications (8) Diastolic dysfunction Code(s): I51.9 - HEART DISEASE, UNSPECIFIED (9) HTN (hypertension) Code(s): I10 - ESSENTIAL (PRIMARY) HYPERTENSION Qualifiers: Hypertension type: essential hypertension Qualified Code(s): I10 - Essential (primary) hypertension (10) Hypercholesterolemia Code(s): E78.00 - PURE HYPERCHOLESTEROLEMIA, UNSPECIFIED Assessment/Plan 09/14/2018 Echo: Mild cLVH, LVEF 60%, mild MR, can't r/o endocarditis 1. MRSA bacteremia post port removal c/w line sepsis 2. Pancytopenia and history of multiple myeloma post stem cell transplant 3. C. Diff antigen with diarrhea 4. Metastatic colon cancer with metastasis S/P chemotherapy 5. 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 CAD, angina pectoris 7. Diastolic dysfunction 8. Paroxysmal atrial fibrillation currently in sinus rhythm [id number] score of 3 9. Hypertension 10. DM 11. Hypercholesterolemia PLAN: 1. RANDY no longer indicated with clearance as outlined on previous note. Continue Daptomycin Day #25/28 after last +BC 2. IV Lopressor for rate-control if needed 3. Post IVIG, treatment for thrush with Clotrimazole oral lozenges and completed 1 week Caspofungin course 4. Maintained on TPN, Ensure, await decision on PEG, continue GI protection
--- NOTE | 2018-10-10 12:53 | PN ---
Progress Note, HEEL SHAVER - Note Progress Note: Selected Entries 10/06/18 10/06/18 10/06/18 06:18 09:30 10:00 Supper 0 Temperature 98.3 F 98.6 F 98.6 F 10/06/18 10/06/18 10/06/18 15:30 16:30 22:00 Supper Temperature 98.8 F 98.3 F 98.3 F 10/07/18 06:00 Supper Temperature 99.8 F H Laboratory Tests 10/06/18 06:20 WBC 3.9 L Selected Entries 10/08/18 10/09/18 10/09/18 23:05 06:00 10:21 Breakfast 0 Diet Tolerated Poor Lunch Supper 25% Temperature 98 F 10/09/18 10/09/18 10/09/18 15:44 17:49 19:50 Breakfast Diet Tolerated Lunch 0 Supper 25% Temperature 98.3 F 99.3 F 10/09/18 10/10/18 10/10/18 22:00 07:12 12:15 Breakfast 25% Diet Tolerated Poor Lunch Supper Temperature 98.5 F 99.6 F Pt accepting only sips of Ensure. Pt refusing trial of most PO. Continued poor nutritional support. Pt is a full code and would like everything done to survive. Pending Neurology f/u regarding PEG decision. Pt and his would like his input.
--- NOTE | 2018-10-10 12:58 | PN ---
Progress Note (short form) - Note Progress Note: NEUROLOGY PROGRESS: Events reviewed and discussed with RN. Swallowing liquids and pills, especially soups without difficulty but can't swallow "the dry stuff." Xrays of ribs and thoracic spine showed no acute pathology. Consideration of PEG tube, however patient would like to defer if possible. Was on medication for indigestion (Protonix), but this was discontinued yesterday per RN. Previous workup for dysphagia by Dr. Quiroz with laryngoscope and MBS were unremarkable in 2017. Has been able to do some bedside PT. Reports back pain with intermittent radiation into left leg, somewhat improved with oxycodone. Last MRI LS spine 07/28/16 (reviewed): Multi-level disc desiccation. L2/L3, L3/ L4 circumferential disc bulges. L4/L5 central canal stenosis and facet hypertrophy. MIO: Cushingoid. Tongue with discolored plaques. Central line R neck. NEURO: Awake, alert No tongue weakness. Gag OK Normal strength Areflexic in legs Decreased sensation to the ankles. IMP: CIDP- continues to strengthen after recent IVIg Rx. Dysphagia vs. Xerostomia (+/- persistent thrush) SUGGEST: Continue Bedside PT Consult with ENT for reevaluation of swallowing with laryngoscope PUSH PO FLUIDS AND LIQUID DIET. Consider D/C opioid analgesics (can cause worsening xerostomia/ decrease appetite) Thank you very much, Carlos Enrique Oleary MD
[2018-10-10] MEDS: MULTIVIT INJ. ADULT COMBO WITH VIT K 1 COMBO 10 ML VIAL IV SCH ×2 (17:09→23:14)
--- NOTE | 2018-10-10 18:55 | CON.ENT ---
Consult Consult Specialty:: Neurology Referred by:: Dr Monaco Reason for Consultation:: Dysphagia - History of Present Illness Chief Complaint: Trouble swallowing History of Present Illness: Patient seen previously by my colleague with chronic dysphagia of fluctuating intensity. History notable for Multiple Myeloma along with colon cancer and liver metastases. He was admitted a few weeks ago in the midsts of chemotherapy and is having difficulty with his PO intake, taking minimal Ensure, but refusing PEG. MRSA bacteremia, C diff colitis. History is also notable for Schatzki rings with dilation and PEG. He has CIDP ( Chronic inflammatory Demyelinating Polyneuropathy) with apparent bulbar effects and has responded to IVIG in the past. He endorses acid reflux and reports taking medication for this at home, but cannot remember which, though it not currently taking any. MBS by Becca Chanel in 2018 was reportedly normal. He reports that swallowing is difficult "especially the dry stuff." Feels his mouth and throat are dry, though is able to swallow better when food is followed by liquid. Liquids, he reports, are not a problem. He then feels the food stick in the middle of his chest, and then starts to heave. He also complains of abdominal pains and for the past couple of weeks has been coughing , though denies history of aspiration pneumonia. - Past Medical History COMMUNICATIONS ASSISTANT: Yes: Peripheral Neuropathy (inflammatory neuropathy and bulbar palsy - Dr Monaco treats with IVIG) Cardio/Vascular: Yes: AFIB (paroxysmal), HTN, Hyperlipdemia Gastrointestinal: Yes: Diverticulosis, GERD (with HH and Schatzki ring dilated ), Hiatal Hernia, Other (transverse colon cancer resected 12/06/17) Hepatobiliary: Yes: Other (fatty liver) Psych: Yes: Depression Musculoskeletal: Yes: Chronic low back pain, Osteoarthritis Rheumatology: Yes: Gout Endocrine: Yes: Diabetes Mellitus Additional Medical History: glaucoma with decreased vision and need for surgery left eye. recovering alcoholic since 1982 - Past Surgical History Past Surgical History: Yes: Arthrosocopy (left knee), Cataract Removal ( bilateral ), Colonoscopy, Hernia Repair (umbilical hernia repair 12/06/17 with colon resection), Tonsillectomy, Upper Endoscopy Additional Surgical History: laparoscopic extended right hemicolectomy for colon cancer, MARY ANNE and umbilical hernia repair Dr Ribeiro. 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 History of Recent Travel: No Home Medications - Allergies Allergies/Adverse Reactions: Allergies Allergy/AdvReac Type Severity Reaction Status Date / Time No Known Allergies Allergy Verified 09/12/18 08:59 - Home Medications Home Medications: Ambulatory Orders Gabapentin 400 mg PO BID 10/04/16 Allopurinol 300 mg PO DAILY 10/21/17 Atorvastatin Ca [Lipitor] 40 mg PO HS 10/21/17 Cyanocobalamin (Vitamin B-12) [Vitamin B12] 2,500 mcg PO DAILY 10/21/17 Oxycodone HCl [Oxycontin] 10 mg PO PRN PRN 10/21/17 Pantoprazole Sodium [Protonix] 40 mg PO DAILY 10/21/17 Apixaban [Eliquis -] 5 mg PO BID #0 tablet 06/22/18 Furosemide 40 mg PO DAILY 06/22/18 Metoprolol Succinate 25 mg PO BID 06/22/18 Family Disease History - Family Disease History Family Disease History: Other: Father (: 68: lung Ca), Mother (: 60's: myeloid leukemia ), Brother (1, : 65: colon cancer), Son (1, healthy), Daughter (1 with SLE) Review of Systems - Review of Systems HENT: reports: Difficult Swallowing. denies: Throat Pain Respiratory: denies: SOB Physical Exam-ENT Vital Signs: Vital Signs Temperature 99.0 F 10/10/18 15:15 Pulse Rate 95 H 10/10/18 15:15 Respiratory Rate 20 10/10/18 15:15 Blood Pressure 125/8 L 10/10/18 15:15 O2 Sat by Pulse Oximetry (%) 97 10/10/18 09:00 Constitutional: Yes: Well Nourished, No Distress, Calm Head: Yes: WNL Face: Yes: WNL Eyes: Yes: WNL Nose: Yes: WNL Nasal Passage: Yes: WNL Oral/Pharynx: Yes: Other (Partials removed. Diffuse retained food fragments. Diffuse patchy gingivitis with carious roots. No riley masses/lesions. Tonsils recessed. O/p clear.) Outer Ear: Yes: WNL Ear Canal: Yes: WNL Tympanic Membrane: Yes: Other (grossly clear) Neck: Yes: Other (R central line.) Neurological: Yes: Other (CN3-7,11,12 intact symmetrical) Imaging - Results Other: Other (Flexibe Fiberoptic Laryngoscopy. Disc rbla with patient, consent given. Passed through R n/c to supraglottis, withdrawn. Findings: 1. Dry mucosal membranes diffusely 2. Thick inspissated white/frothy secretions diffusely as seen in oral cavity. 3. No riley candidal plaques 4. Normal TVC mobility 5. Moderate postcricoid edema. 6. No riley masses/lesions.) Problem List - Problems (1) Dysphagia Assessment/Plan: Chronic dysphagia of multifactorial nature. - Oral: Diffuse gingivitis/mucositis with carious roots. Needs dental attention. He may also have aspect of inadequate mastication especially if dentures poorly fitting or not using. - Hypopharyngeal: Evidence of laryngopharyngeal reflux. Should resume PPI assuming he was on this previously, unless otherwise contraindicated. Should sit upright for several hours after meals. - Esophageal: History of Schatzki rings, dilatation. Consider EGD. Defer to GI. - Gastric: GERD? - Neurological: CIDP, improved s/p IVIG. Likely also age-related incoordination of swallowing reflex. Neurology following. - Xerostomia: Hydration as able He is likely at risk for aspiration, though I defer to Becca Chanel for formal recommendations and diet. Repeat MBS, possibly esophagram, as indicated. Medical management including oncology care per primary team, consultants. Thank you for this consultation. Please call with questions. He may follow up in my office as an outpatient after discharge. Code(s): R13.10 - DYSPHAGIA, UNSPECIFIED
[2018-10-10] MEDS: FAT EMULSIONS 250 ML IV SCH (21:50)
[2018-10-11] MEDS: METOCLOPRAMIDE HCL INJECTION 10 MG/2 ML VIAL IVPUSH PRN (03:26)
[2018-10-11] MEDS: CLOTRIMAZOLE 10 MG TROCHE (FP) PO SCH ×5 (06:10→22:01)
[2018-10-11] MEDS: AMINO ACIDS/PROTEIN HYDROLYS 30 ML LIQUID.PKT PO SCH ×2 (09:33→17:25)
[2018-10-11] MEDS: oxyCODONE HCL 5 MG TABLET PO PRN ×3 (09:33→23:01)
[2018-10-11] MEDS: AMINO ACIDS 4.25%/D5W 1,000 ML IV SCH ×2 (09:35→12:22)
[2018-10-11] MEDS: MINERAL OIL/PET HY-PHL TOPICAL OINTMENT 454 GM JAR TP SCH ×2 (09:35→22:02)
[2018-10-11] MEDS: PANTOPRAZOLE 40 MG TABLET (FP) PO SCH (09:36)
[2018-10-11] MEDS: DAPTOMYCIN 700 MG in SODIUM CHLORIDE 50 ML IVPB SCH (11:25)
--- NOTE | 2018-10-11 12:48 | PN ---
Progress Note, CITY MAINTENANCE MANAGER - Note Progress Note: Selected Entries 10/10/18 10/10/18 10/10/18 07:12 10:00 12:15 Breakfast 25% Diet Tolerated Poor Supper Temperature 99.6 F 98.8 F 10/10/18 10/10/18 10/11/18 15:15 23:07 06:00 Breakfast Diet Tolerated Refused Supper 0 Temperature 99.0 F 99.9 F H 98.2 F 10/11/18 10:00 Breakfast 0 Diet Tolerated Refused Supper Temperature 98.4 F Appreciate ENT consult- Findings: 1. Dry mucosal membranes diffusely 2. Thick inspissated white/frothy secretions diffusely as seen in oral cavity. 3. No riley candidal plaques 4. Normal TVC mobility 5. Moderate postcricoid edema. 6. No riley masses/lesions.) Chronic dysphagia of multifactorial nature. - Oral: Diffuse gingivitis/mucositis with carious roots. Needs dental attention. He may also have aspect of inadequate mastication especially if dentures poorly fitting or not using. - Hypopharyngeal: Evidence of laryngopharyngeal reflux. Should resume PPI assuming he was on this previously, unless otherwise contraindicated. Should sit upright for several hours after meals. - Esophageal: History of Schatzki rings, dilatation. Consider EGD. Defer to GI. - Gastric: GERD? - Neurological: CIDP, improved s/p IVIG. Likely also age-related incoordination of swallowing reflex. Neurology following. - Xerostomia: Hydration as able Pt now drinking 2 Ensure Enlive daily. Counseled him and his on increasing to 4 daily, for improved nutritional intake. This can provide similar nutrition as TF, however, based on consistency of acceptance. PEG would still provide more consistency of nutritional intake and hydration, especially if chemo will resume. However, pt has not agreed to placement. Consider f/u by Neurology for consideration of PEG to supplement PO intake.
[2018-10-11 13:02] VITALS: BMI 28.9
--- NOTE | 2018-10-11 15:03 | PN ---
Progress Note (short form) - Note Progress Note: feels weak has pain in both sides of lower rib cage--pain is relieved with pain meds able to drink 2 bottles of Ensure today Vital Signs - 24 hr 10/10/18 10/10/18 10/10/18 15:15 21:00 23:07 Temperature 99.0 F 99.9 F H Pulse Rate 95 H 102 H Respiratory 20 20 Rate Blood Pressure 125/8 L 132/72 O2 Sat by Pulse 97 Oximetry (%) 10/11/18 10/11/18 10/11/18 06:00 09:00 10:00 Temperature 98.2 F 98.4 F Pulse Rate 104 H 100 H Respiratory 20 20 20 Rate Blood Pressure 116/76 126/70 O2 Sat by Pulse 97 Oximetry (%) 10/11/18 14:00 Temperature 98.4 F Pulse Rate 100 H Respiratory 20 Rate Blood Pressure 128/78 O2 Sat by Pulse Oximetry (%) Current Medications Generic Name Dose Route Start Last Admin Trade Name Freq PRN Reason Stop Dose Admin Amino Acids 30 ml 10/06/18 17:30 10/11/18 09:33 Prosource No Carb Liquid Pkt PO 30 ml BID@0800,1730 JAMIE Administration Clotrimazole 10 mg 10/04/18 14:00 10/11/18 13:48 Mycelex Mary's - PO 10 mg 5XD JAMIE Administration Emollient Ointment 1 applic 09/21/18 12:00 10/11/18 09:35 Aquaphor - TP 1 applic BID JAMIE Administration IV Flush 4 ml 09/28/18 13:05 10/09/18 06:22 Triple Lumen Flush IVPUSH 4 ml PRN PRN Administration Protocol Daptomycin 700 mg/ Sodium 50 mls @ 50 mls/hr 10/04/18 10:00 10/11/18 11:25 Chloride IVPB 50 mls/hr DAILY JAMIE Administration Protocol Fat Emulsion Intravenous 250 mls @ 31.25 mls/hr 10/04/18 22:00 10/10/18 21:50 Intralipid - IV 31.25 mls/hr DAILY@2200 JAMIE Administration Amino Acids 1,000 mls @ 84 mls/hr 10/09/18 19:15 10/11/18 12:22 Clinimix - IV 84 mls/hr Q12H JAMIE Administration Lidocaine/Aluminum/Magnesium/Simeth 5 ml 09/16/18 11:07 10/01/18 13:17 Magic Mouthwash *Sjr Formula* - MM 5 ml Q6HPO PRN Administration ORAL PAIN/MOUTH SORES Metoclopramide HCl 10 mg 09/20/18 18:20 10/11/18 03:26 Reglan Injection - IVPUSH 10 mg Q8H PRN Administration NAUSEA AND/OR VOMITING Multivitamins/Minerals 10 ml 09/19/18 15:30 10/10/18 23:14 Infuvite Adult - IV 10 ml DAILY@1530 JAMIE Administration Oxycodone HCl 10 mg 10/08/18 11:18 10/11/18 13:47 Roxicodone - PO 10 mg Q4H PRN Administration PAIN LEVEL 6-10 Pantoprazole Sodium 40 mg 10/11/18 10:00 10/11/18 09:36 Protonix - PO 40 mg DAILY JAMIE Administration S1 S2 RRR Pale Lungs decreased breath sounds tender b/l chest wall Abd- soft,NT edema+ PLAN thoracic spine xrays noted-- does not appear to have lesions B/L ribs xrays-- no lesions pain control -- increase Oxycodone on lipids / clinimix NH will not administer TPN or clinimix IV antibiotics -- per ID-- will be changing to Vanco if planning on discharge iv antifungals-- dc as per ID , completed continue with meds pt still refusing peg tube if pt is able to drink at least 4 bottles of Ensure daily-- would provide him some nutritional benefit along with some solids Daptomycin - 2 more doses of antibiotics dc planning-- the and pt are now amenable to Short term rehab Problem List - Problems (1) Neutropenic sepsis Code(s): A41.9 - SEPSIS, UNSPECIFIED ORGANISM; D70.9 - NEUTROPENIA, UNSPECIFIED (2) Atrial fibrillation Code(s): I48.91 - UNSPECIFIED ATRIAL FIBRILLATION Qualifiers: Atrial fibrillation type: paroxysmal Qualified Code(s): I48.0 - Paroxysmal atrial fibrillation (3) History of colon cancer Code(s): Z85.038 - PERSONAL HISTORY OF MALIGNANT NEOPLASM OF LARGE INTESTINE (4) Multiple myeloma Code(s): C90.00 - MULTIPLE MYELOMA NOT HAVING ACHIEVED REMISSION Qualifiers: Multiple myeloma remission status: unspecified Qualified Code(s): C90.00 - Multiple myeloma not having achieved remission (5) Sepsis Code(s): A41.9 - SEPSIS, UNSPECIFIED ORGANISM Qualifiers: Sepsis type: sepsis due to unspecified organism Qualified Code(s): A41.9 - Sepsis, unspecified organism (6) Anemia Code(s): D64.9 - ANEMIA, UNSPECIFIED Qualifiers: Anemia type: unspecified type Qualified Code(s): D64.9 - Anemia, unspecified
[2018-10-11] MEDS: MULTIVIT INJ. ADULT COMBO WITH VIT K 1 COMBO 10 ML VIAL IV SCH (15:30)
--- NOTE | 2018-10-11 19:49 | PN ---
Progress Note (short form) - Note Progress Note: Patient seen and examined Prior notes reviewed Takes several cans of Ensure daily Remains on parenteral supplementation. Last Vital Signs Temp Pulse Resp BP Pulse Ox 98.4 F 100 H 20 128/78 97 10/11/18 14:00 10/11/18 14:00 10/11/18 14:00 10/11/18 14:00 10/11/18 09:00 HEENT: , anisocoria Oropharynx: thrush, improved Cor: RSR, No murmurs, No gallops Lungs: poor inspiratory effort Abd: Soft, Normal bowel sounds, No organomegaly Ext:No significant edema Skin: No rashes, Integument intact CBC, BMP 10/06/18 06:20 10/07/18 06:00 Current Medications Generic Name Dose Route Start Last Admin Trade Name Freq PRN Reason Stop Dose Admin Amino Acids 30 ml 10/06/18 17:30 10/11/18 17:25 Prosource No Carb Liquid Pkt PO 30 ml BID@0800,1730 JAMIE Administration Clotrimazole 10 mg 10/04/18 14:00 10/11/18 17:24 Mycelex Mary's - PO 10 mg 5XD JAMIE Administration Emollient Ointment 1 applic 09/21/18 12:00 10/11/18 09:35 Aquaphor - TP 1 applic BID JAMIE Administration IV Flush 4 ml 09/28/18 13:05 10/09/18 06:22 Triple Lumen Flush IVPUSH 4 ml PRN PRN Administration Protocol Daptomycin 700 mg/ Sodium 50 mls @ 50 mls/hr 10/04/18 10:00 10/11/18 11:25 Chloride IVPB 50 mls/hr DAILY JAMIE Administration Protocol Fat Emulsion Intravenous 250 mls @ 31.25 mls/hr 10/04/18 22:00 10/10/18 21:50 Intralipid - IV 31.25 mls/hr DAILY@2200 JAMIE Administration Amino Acids 1,000 mls @ 84 mls/hr 10/09/18 19:15 10/11/18 12:22 Clinimix - IV 84 mls/hr Q12H JAMIE Administration Lidocaine/Aluminum/Magnesium/Simeth 5 ml 09/16/18 11:07 10/01/18 13:17 Magic Mouthwash *Sjr Formula* - MM 5 ml Q6HPO PRN Administration ORAL PAIN/MOUTH SORES Metoclopramide HCl 10 mg 09/20/18 18:20 10/11/18 03:26 Reglan Injection - IVPUSH 10 mg Q8H PRN Administration NAUSEA AND/OR VOMITING Multivitamins/Minerals 10 ml 09/19/18 15:30 10/11/18 15:30 Infuvite Adult - IV Not Given DAILY@1530 JAMIE Oxycodone HCl 10 mg 10/08/18 11:18 10/11/18 13:47 Roxicodone - PO 10 mg Q4H PRN Administration PAIN LEVEL 6-10 Pantoprazole Sodium 40 mg 10/11/18 10:00 10/11/18 09:36 Protonix - PO 40 mg DAILY JAMIE Administration Impression: MRSA bacteremia Port infection and removal Dysphagia Myeloma - sp transplant Colon ca - s/p ab;ation Continuing with PT Analgesics and nutrition Antibiotics
[2018-10-11] MEDS ORDERED: PT OWN MED DRAWER 7, Y5N ONE ×2 (21:54→23:23)
[2018-10-11] MEDS: FAT EMULSIONS 250 ML IV SCH (22:02)
[2018-10-12] MEDS: AMINO ACIDS 4.25%/D5W 1,000 ML IV SCH ×3 (02:36→22:46)
[2018-10-12] MEDS: MULTIVIT INJ. ADULT COMBO WITH VIT K 1 COMBO 10 ML VIAL IV SCH ×2 (02:37→15:11)
[2018-10-12] MEDS ORDERED: PT OWN MED DRAWER 7, Y5N ONE (05:11)
[2018-10-12] MEDS: CLOTRIMAZOLE 10 MG TROCHE (FP) PO SCH ×5 (05:44→22:47)
[2018-10-12 06:02] LABS: HEMATOCRIT 30.2 % (35.4-49); HEMOGLOBIN 9.8 GM/dL (11.7-16.9); MCH 29.3 pg (25.7-33.7); MCHC 32.5 g/dl (32.0-35.9); MEAN CELL VOLUME 90.2 fl (80-96); MEAN PLT VOLUME 9.1 fl (7.5-11.1); PLATELET COUNT 186 K/MM3 (134-434); RBC 3.35 M/mm3 (4.00-5.60); RDW 21.5 % (11.9-15.9); WHITE BLOOD COUNT 4.2 K/mm3 (4.0-10.0)
[2018-10-12 06:43] LABS: ALBUMIN 2.5 g/dl (3.4-5.0); BILIRUBIN,TOTAL 0.4 mg/dL (0.2-1); BLOOD UREA NITROGEN 19.2 mg/dL (7-18); CALCIUM 9.3 mg/dL (8.5-10.1); CREATININE 0.8 mg/dL (0.55-1.3); POTASSIUM 3.3 mmol/L (3.5-5.1); TOT PROT 6.3 g/dl (6.4-8.2)
[2018-10-12] MEDS: AMINO ACIDS/PROTEIN HYDROLYS 30 ML LIQUID.PKT PO SCH ×2 (10:44→17:04)
[2018-10-12] MEDS: MINERAL OIL/PET HY-PHL TOPICAL OINTMENT 454 GM JAR TP SCH ×2 (10:44→22:46)
[2018-10-12] MEDS: PANTOPRAZOLE 40 MG TABLET (FP) PO SCH (10:45)
[2018-10-12] MEDS: DAPTOMYCIN 700 MG in SODIUM CHLORIDE 50 ML IVPB SCH (11:11)
--- NOTE | 2018-10-12 11:48 | PN ---
Progress Note, CS ASSOCIATE - Note Progress Note: Pt had 3 Ensure Enlive yesterday. continued to baby counselor him and his on increasing to 4 daily, for improved nutritional intake. This can provide similar nutrition as TF, however, based on consistency of acceptance. PEG would still provide more consistency of nutritional intake and hydration, especially if chemo will resume. However, pt has not agreed to placement.
--- NOTE | 2018-10-12 11:56 | PN ---
Progress Note, Physician History of Present Illness: Dysphagia persists with inadequate oral intake, drinking Ensures, declines PEG. Bld cx 09/22 has cleared c/w line sepsis. On 28 days of Daptomycin post bld cx clearance 09/17. - Current Medication List Current Medications: Active Medications Amino Acids (Prosource No Carb Liquid Pkt) 30 ml PO BID@0800,1730 [facility] Last Admin: 10/12/18 10:44 Dose: 30 ml Clotrimazole (Mycelex Mary's -) 10 mg PO 5XD [facility] Last Admin: 10/12/18 10:45 Dose: 10 mg Emollient Ointment (Aquaphor -) 1 applic TP BID [facility] Last Admin: 10/12/18 10:44 Dose: 1 applic IV Flush (Triple Lumen Flush) 4 ml IVPUSH PRN PRN PRN Reason: Protocol Last Admin: 10/09/18 06:22 Dose: 4 ml Daptomycin 700 mg/ Sodium (Chloride) 50 mls @ 50 mls/hr IVPB DAILY [facility]; Protocol Last Admin: 10/12/18 11:11 Dose: 50 mls/hr Fat Emulsion Intravenous (Intralipid -) 250 mls @ 31.25 mls/hr IV DAILY@2200 [facility] Last Admin: 10/11/18 22:02 Dose: 31.25 mls/hr Amino Acids (Clinimix -) 1,000 mls @ 84 mls/hr IV Q12H [facility] Last Admin: 10/12/18 10:43 Dose: Not Given Lidocaine/Aluminum/Magnesium/Simeth (Magic Mouthwash *Sjr Formula* -) 5 ml MM Q6HPO PRN PRN Reason: ORAL PAIN/MOUTH SORES Last Admin: 10/01/18 13:17 Dose: 5 ml Metoclopramide HCl (Reglan Injection -) 10 mg IVPUSH Q8H PRN PRN Reason: NAUSEA AND/OR VOMITING Last Admin: 10/11/18 03:26 Dose: 10 mg Multivitamins/Minerals (Infuvite Adult -) 10 ml IV DAILY@1530 [facility] Last Admin: 10/12/18 02:37 Dose: 10 ml Oxycodone HCl (Roxicodone -) 10 mg PO Q4H PRN PRN Reason: PAIN LEVEL 6-10 Last Admin: 10/11/18 23:01 Dose: 10 mg Pantoprazole Sodium (Protonix -) 40 mg PO DAILY JAMIE Last Admin: 10/12/18 10:45 Dose: 40 mg - Objective Vital Signs: Vital Signs Temperature 98.4 F 10/12/18 10:00 Pulse Rate 104 H 10/12/18 10:00 Respiratory Rate 20 10/12/18 10:00 Blood Pressure 125/72 10/12/18 10:00 O2 Sat by Pulse Oximetry (%) 97 10/12/18 09:00 Constitutional: Yes: No Distress, Calm Neck: Yes: Supple Cardiovascular: Yes: Regular Rate and Rhythm Respiratory: Yes: Regular, Diminished Gastrointestinal: Yes: Soft, Hypoactive Bowel Sounds Edema: No Labs: CBC, BMP 10/12/18 05:45 10/12/18 05:45 INR, PTT INR 1.08 (0.83-1.09) 09/21/18 06:38 Fibrinogen 442.0 mg/dL (238-498) 09/15/18 15:00 Problem List - Problems (1) Atrial fibrillation Code(s): I48.91 - UNSPECIFIED ATRIAL FIBRILLATION Qualifiers: Atrial fibrillation type: paroxysmal Qualified Code(s): I48.0 - Paroxysmal atrial fibrillation (2) Dysphagia, oropharyngeal phase Code(s): R13.12 - DYSPHAGIA, OROPHARYNGEAL PHASE (3) MRSA (methicillin resistant staph aureus) culture positive Code(s): Z22.322 - CARRIER OR SUSPECTED CARRIER OF METHICILLIN RESIS STAPH (4) Multiple myeloma Code(s): C90.00 - MULTIPLE MYELOMA NOT HAVING ACHIEVED REMISSION Qualifiers: Multiple myeloma remission status: unspecified Qualified Code(s): C90.00 - Multiple myeloma not having achieved remission (5) CAD (coronary artery disease) Code(s): I25.10 - ATHSCL HEART DISEASE OF [place] CORONARY ARTERY W/O ANG PCTRS Qualifiers: Coronary Disease-Associated Artery/Lesion type: [place] artery [place] vs. transplanted heart: [place] heart Associated angina: without angina Qualified Code(s): I25.10 - Atherosclerotic heart disease of [place] coronary artery without angina pectoris (6) CIDP (chronic inflammatory demyelinating polyneuropathy) Code(s): G61.81 - CHRONIC INFLAMMATORY DEMYELINATING POLYNEURITIS (7) Diabetes mellitus Code(s): E11.9 - TYPE 2 DIABETES MELLITUS WITHOUT COMPLICATIONS Qualifiers: Diabetes mellitus type: type 2 Diabetes mellitus terminal make up operator insulin use: without mcfp use Diabetes mellitus complication status: without complication Qualified Code(s): E11.9 - Type 2 diabetes mellitus without complications (8) Diastolic dysfunction Code(s): I51.9 - HEART DISEASE, UNSPECIFIED (9) HTN (hypertension) Code(s): I10 - ESSENTIAL (PRIMARY) HYPERTENSION Qualifiers: Hypertension type: essential hypertension Qualified Code(s): I10 - Essential (primary) hypertension (10) Hypercholesterolemia Code(s): E78.00 - PURE HYPERCHOLESTEROLEMIA, UNSPECIFIED Assessment/Plan 09/14/2018 Echo: Mild cLVH, LVEF 60%, mild MR, can't r/o endocarditis 1. MRSA bacteremia post port removal c/w line sepsis 2. Pancytopenia and history of multiple myeloma post stem cell transplant 3. C. Diff antigen with diarrhea 4. Metastatic colon cancer with metastasis S/P chemotherapy 5. 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 CAD, angina pectoris 7. Diastolic dysfunction 8. Paroxysmal atrial fibrillation currently in sinus rhythm [id number] score of 3 9. Hypertension 10. DM 11. Hypercholesterolemia PLAN: 1. RANDY no longer indicated with clearance as outlined on previous note. Continue Daptomycin Day #27/28 after last +BC 2. IV Lopressor for rate-control if needed 3. Post IVIG, treatment for thrush with Clotrimazole oral lozenges and completed 1 week Caspofungin course 4. Maintained on TPN, Ensure, continue GI protection
--- NOTE | 2018-10-12 14:05 | PN ---
Progress Note (short form) - Note Progress Note: no distress was able to drink 3 bottles Ensure yesterday able to drink 2 bottles of Ensure today Vital Signs - 24 hr 10/11/18 10/11/18 10/11/18 16:30 21:00 21:56 Temperature 98.1 F 98.7 F Pulse Rate 100 H 112 H Respiratory 20 20 Rate Blood Pressure 112/68 122/68 O2 Sat by Pulse 97 Oximetry (%) 10/12/18 10/12/18 10/12/18 06:00 09:00 10:00 Temperature 98.4 F 98.4 F Pulse Rate 92 H 104 H Respiratory 20 20 20 Rate Blood Pressure 116/72 125/72 O2 Sat by Pulse 97 Oximetry (%) Current Medications Generic Name Dose Route Start Last Admin Trade Name Freq PRN Reason Stop Dose Admin Amino Acids 30 ml 10/06/18 17:30 10/12/18 10:44 Prosource No Carb Liquid Pkt PO 30 ml BID@0800,1730 JAMIE Administration Clotrimazole 10 mg 10/04/18 14:00 10/12/18 10:45 Mycelex Mary's - PO 10 mg 5XD JAMIE Administration Emollient Ointment 1 applic 09/21/18 12:00 10/12/18 10:44 Aquaphor - TP 1 applic BID JAMIE Administration IV Flush 4 ml 09/28/18 13:05 10/09/18 06:22 Triple Lumen Flush IVPUSH 4 ml PRN PRN Administration Protocol Daptomycin 700 mg/ Sodium 50 mls @ 50 mls/hr 10/04/18 10:00 10/12/18 11:11 Chloride IVPB 50 mls/hr DAILY JAMIE Administration Protocol Fat Emulsion Intravenous 250 mls @ 31.25 mls/hr 10/04/18 22:00 10/11/18 22:02 Intralipid - IV 31.25 mls/hr DAILY@2200 JAMIE Administration Amino Acids 1,000 mls @ 84 mls/hr 10/09/18 19:15 10/12/18 10:43 Clinimix - IV Not Given Q12H JAMIE Lidocaine/Aluminum/Magnesium/Simeth 5 ml 09/16/18 11:07 10/01/18 13:17 Magic Mouthwash *Sjr Formula* - MM 5 ml Q6HPO PRN Administration ORAL PAIN/MOUTH SORES Metoclopramide HCl 10 mg 09/20/18 18:20 10/11/18 03:26 Reglan Injection - IVPUSH 10 mg Q8H PRN Administration NAUSEA AND/OR VOMITING Multivitamins/Minerals 10 ml 09/19/18 15:30 10/12/18 02:37 Infuvite Adult - IV 10 ml DAILY@1530 JAMIE Administration Oxycodone HCl 10 mg 10/08/18 11:18 10/11/18 23:01 Roxicodone - PO 10 mg Q4H PRN Administration PAIN LEVEL 6-10 Pantoprazole Sodium 40 mg 10/11/18 10:00 10/12/18 10:45 Protonix - PO 40 mg DAILY JAMIE Administration Laboratory Results - last 24 hr 10/12/18 10/12/18 05:45 05:45 WBC 4.2 RBC 3.35 L Hgb 9.8 L Hct 30.2 L MCV 90.2 MCH 29.3 MCHC 32.5 RDW 21.5 H Plt Count 186 D MPV 9.1 Sodium 137 Potassium 3.3 L Chloride 102 Carbon Dioxide 27 Anion Gap 8 BUN 19.2 H Creatinine 0.8 Est GFR (CKD-EPI)AfAm 103.44 Est GFR (CKD-EPI)NonAf 89.25 Random Glucose 173 H Calcium 9.3 Total Bilirubin 0.4 AST 78 H ALT 95 H Alkaline Phosphatase 211 H Total Protein 6.3 L Albumin 2.5 L S1 S2 RRR Pale Lungs decreased breath sounds tender b/l chest wall Abd- soft,NT edema+ PLAN thoracic spine xrays noted-- does not appear to have lesions B/L ribs xrays-- no lesions pain control -- increase Oxycodone on lipids / clinimix NH will not administer TPN or clinimix IV antibiotics -- per ID-- will be changing to Vanco if planning on discharge iv antifungals-- dc as per ID , completed continue with meds pt still refusing peg tube if pt is able to drink at least 4 bottles of Ensure daily-- would provide him some nutritional benefit along with some solids Daptomycin - completed tomorrow -- spoke with DR Felix - infectious disease today will need to remove TLC tomorrow after antibiotics dc planning-- the and pt are now amenable to Short term rehab -->pt will go to [facility] Problem List - Problems (1) Neutropenic sepsis Code(s): A41.9 - SEPSIS, UNSPECIFIED ORGANISM; D70.9 - NEUTROPENIA, UNSPECIFIED (2) Atrial fibrillation Code(s): I48.91 - UNSPECIFIED ATRIAL FIBRILLATION Qualifiers: Atrial fibrillation type: paroxysmal Qualified Code(s): I48.0 - Paroxysmal atrial fibrillation (3) History of colon cancer Code(s): Z85.038 - PERSONAL HISTORY OF MALIGNANT NEOPLASM OF LARGE INTESTINE (4) Multiple myeloma Code(s): C90.00 - MULTIPLE MYELOMA NOT HAVING ACHIEVED REMISSION Qualifiers: Multiple myeloma remission status: unspecified Qualified Code(s): C90.00 - Multiple myeloma not having achieved remission (5) Sepsis Code(s): A41.9 - SEPSIS, UNSPECIFIED ORGANISM Qualifiers: Sepsis type: sepsis due to unspecified organism Qualified Code(s): A41.9 - Sepsis, unspecified organism (6) Anemia Code(s): D64.9 - ANEMIA, UNSPECIFIED Qualifiers: Anemia type: unspecified type Qualified Code(s): D64.9 - Anemia, unspecified
[2018-10-12] MEDS ORDERED: POTASSIUM CHLORIDE ORAL LIQUID 20 MEQ/15 ML PO ONE (14:06)
[2018-10-12] MEDS: oxyCODONE HCL 5 MG TABLET PO PRN (15:12)
--- NOTE | 2018-10-12 19:56 | PN ---
Progress Note (short form) - Note Progress Note: Patient seen and examined Making some progress with Ensure and in PT Completing course of antibiotics Last Vital Signs Temp Pulse Resp BP Pulse Ox 98.8 F 108 H 20 139/66 97 10/12/18 17:06 10/12/18 17:06 10/12/18 17:06 10/12/18 17:06 10/12/18 09:00 HEENT: left ptosis, anisocoria Oropharynx: dry mucous membranes , thrush , coated Cor: RSR, No murmurs, No gallops Lungs: decrease breath sounds Abd: Soft, Normal bowel sounds, No organomegaly Ext:No significant edema Skin: No rashes, Integument intact CBC, BMP 10/12/18 05:45 10/12/18 05:45 Current Medications Generic Name Dose Route Start Last Admin Trade Name Freq PRN Reason Stop Dose Admin Amino Acids 30 ml 10/06/18 17:30 10/12/18 17:04 Prosource No Carb Liquid Pkt PO 30 ml BID@0800,1730 JAMIE Administration Clotrimazole 10 mg 10/04/18 14:00 10/12/18 17:04 Mycelex Mary's - PO 10 mg 5XD JAMIE Administration Emollient Ointment 1 applic 09/21/18 12:00 10/12/18 10:44 Aquaphor - TP 1 applic BID JAMIE Administration IV Flush 4 ml 09/28/18 13:05 10/09/18 06:22 Triple Lumen Flush IVPUSH 4 ml PRN PRN Administration Protocol Daptomycin 700 mg/ Sodium 50 mls @ 50 mls/hr 10/04/18 10:00 10/12/18 11:11 Chloride IVPB 50 mls/hr DAILY JAMIE Administration Protocol Fat Emulsion Intravenous 250 mls @ 31.25 mls/hr 10/04/18 22:00 10/11/18 22:02 Intralipid - IV 31.25 mls/hr DAILY@2200 JAMIE Administration Amino Acids 1,000 mls @ 84 mls/hr 10/09/18 19:15 10/12/18 10:43 Clinimix - IV Not Given Q12H JAMIE Lidocaine/Aluminum/Magnesium/Simeth 5 ml 09/16/18 11:07 10/01/18 13:17 Magic Mouthwash *Sjr Formula* - MM 5 ml Q6HPO PRN Administration ORAL PAIN/MOUTH SORES Metoclopramide HCl 10 mg 09/20/18 18:20 10/11/18 03:26 Reglan Injection - IVPUSH 10 mg Q8H PRN Administration NAUSEA AND/OR VOMITING Multivitamins/Minerals 10 ml 09/19/18 15:30 10/12/18 15:11 Infuvite Adult - IV Not Given DAILY@1530 JAMIE Oxycodone HCl 10 mg 10/08/18 11:18 10/12/18 15:12 Roxicodone - PO 10 mg Q4H PRN Administration PAIN LEVEL 6-10 Pantoprazole Sodium 40 mg 10/11/18 10:00 10/12/18 10:45 Protonix - PO 40 mg DAILY JAMIE Administration Impression: Clinical performance status needs to improve before consideration of resuming any chemotherapy for metastatic colon ca. Completing antibiotics PT ongoing Some mini improvements in intake with Ensure. NH panning for future
[2018-10-12] MEDS: FAT EMULSIONS 250 ML IV SCH (22:45)
[2018-10-13] MEDS ORDERED: oxyCODONE HCL 5 MG TABLET PO PRN ×2 (04:19→04:20)
[2018-10-13] MEDS: CLOTRIMAZOLE 10 MG TROCHE (FP) PO SCH ×2 (05:38→10:11)
[2018-10-13] MEDS: AMINO ACIDS 4.25%/D5W 1,000 ML IV SCH (07:33)
[2018-10-13] MEDS: AMINO ACIDS/PROTEIN HYDROLYS 30 ML LIQUID.PKT PO SCH (10:10)
[2018-10-13] MEDS: DAPTOMYCIN 700 MG in SODIUM CHLORIDE 50 ML IVPB SCH (10:10)
[2018-10-13] MEDS: MINERAL OIL/PET HY-PHL TOPICAL OINTMENT 454 GM JAR TP SCH (10:10)
[2018-10-13] MEDS: PANTOPRAZOLE 40 MG TABLET (FP) PO SCH (10:11)
--- NOTE | 2018-10-13 11:57 | PN ---
Progress Note, Physician History of Present Illness: AWAKE, ALERT SUPINE IN BED SWALLOWING STILL REMAINS POOR AFEBRILE - Current Medication List Current Medications: Active Medications Amino Acids (Prosource No Carb Liquid Pkt) 30 ml PO BID@0800,1730 [facility] Last Admin: 10/13/18 10:10 Dose: 30 ml Clotrimazole (Mycelex Mary's -) 10 mg PO 5XD [facility] Last Admin: 10/13/18 10:11 Dose: 10 mg Emollient Ointment (Aquaphor -) 1 applic TP BID [facility] Last Admin: 10/13/18 10:10 Dose: 1 applic IV Flush (Triple Lumen Flush) 4 ml IVPUSH PRN PRN PRN Reason: Protocol Last Admin: 10/09/18 06:22 Dose: 4 ml Daptomycin 700 mg/ Sodium (Chloride) 50 mls @ 50 mls/hr IVPB DAILY [facility]; Protocol Last Admin: 10/13/18 10:10 Dose: 50 mls/hr Fat Emulsion Intravenous (Intralipid -) 250 mls @ 31.25 mls/hr IV DAILY@2200 [facility] Last Admin: 10/12/18 22:45 Dose: 31.25 mls/hr Amino Acids (Clinimix -) 1,000 mls @ 84 mls/hr IV Q12H [facility] Last Admin: 10/13/18 07:33 Dose: Not Given Lidocaine/Aluminum/Magnesium/Simeth (Magic Mouthwash *Sjr Formula* -) 5 ml MM Q6HPO PRN PRN Reason: ORAL PAIN/MOUTH SORES Last Admin: 10/01/18 13:17 Dose: 5 ml Metoclopramide HCl (Reglan Injection -) 10 mg IVPUSH Q8H PRN PRN Reason: NAUSEA AND/OR VOMITING Last Admin: 10/11/18 03:26 Dose: 10 mg Multivitamins/Minerals (Infuvite Adult -) 10 ml IV DAILY@1530 [facility] Last Admin: 10/12/18 15:11 Dose: Not Given Oxycodone HCl (Roxicodone -) 5 mg PO Q6H PRN PRN Reason: PAIN LEVEL 7 - 10 Last Admin: 10/13/18 05:38 Dose: 5 mg Pantoprazole Sodium (Protonix -) 40 mg PO DAILY [facility] Last Admin: 10/13/18 10:11 Dose: 40 mg - Objective Vital Signs: Vital Signs Temperature 99.3 F 10/13/18 05:39 Pulse Rate 110 H 10/13/18 05:39 Respiratory Rate 20 10/13/18 05:39 Blood Pressure 123/66 10/13/18 05:39 O2 Sat by Pulse Oximetry (%) 97 10/12/18 09:00 Constitutional: Yes: No Distress Eyes: Yes: Conjunctiva Clear Cardiovascular: Yes: Regular Rate and Rhythm, S1, S2 Respiratory: Yes: CTA Bilaterally Gastrointestinal: Yes: Normal Bowel Sounds, Soft. No: Tenderness Edema: No Labs: CBC, BMP 10/12/18 05:45 10/12/18 05:45 INR, PTT INR 1.08 (0.83-1.09) 09/21/18 06:38 Fibrinogen 442.0 mg/dL (238-498) 09/15/18 15:00 Assessment/Plan MRSA BACTEREMIA/ SEPSIS PROBABLE INFECTED PORT S/P REMOVAL THROMBOCYTOPENIA IMPROVED AZOTEMIA IMPROVED METASTATIC CA S/P CHEMO DYSPHAGIA/ THRUSH ? AZOL RESISTANT MER DAPTOMYCIN DAY # AFTER LAST +BC D/C DAPTOMYCIN AFTER TODAY'S DOSE PROGNOSIS GUARDED
--- NOTE | 2018-10-13 12:36 | DS ---
Physical Examination Vital Signs: Vital Signs Temperature 98.6 F 10/13/18 10:00 Pulse Rate 105 H 10/13/18 10:00 Respiratory Rate 20 10/13/18 10:00 Blood Pressure 120/66 10/13/18 10:00 O2 Sat by Pulse Oximetry (%) 97 10/12/18 09:00 Constitutional: Yes: No Distress, Calm Cardiovascular: Yes: Regular Rate and Rhythm Respiratory: Yes: Diminished Gastrointestinal: Yes: Normal Bowel Sounds, Soft. No: Tenderness Edema: No Labs: CBC, BMP 10/12/18 05:45 10/12/18 05:45 Discharge Summary Reason For Visit: ATRIAL FIBRILLATION, SEPSIS, MULTIPLE MYELOMA Current Active Problems Atrial fibrillation (Acute) Dysphagia (Acute) Dysphagia, oropharyngeal phase (Acute) Leukopenia (Acute) MRSA (methicillin resistant staph aureus) culture positive (Acute) Multiple myeloma (Acute) Neutropenic sepsis (Acute) Hospital Course: ER HISTORY - History of Present Illness Initial Comments: The pt is a 72M w/ a history of multiple myeloma, colon cancer s/p resection but suspected liver mets (last CTX 6 and 7 days ago), HTN, a-fib (eliquis), and 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 The patient thought he would feels better by today but continues to have generalized weakness/malaise. Additionally, since receiving his last treatments he reports burning epigastric abdominal pain that is non-radiating, intermittent, not exacerbated or alleviated by anything he can identify. He endorses associated vomiting for a couple of days after CTX but none today. He reports a cough since the time of his last treatment as well that is intermittently productive with whitish sputum. The pt states he also had a port placed on 09/07/18 but denies the surrounding area being tender or red that he has noticed. He reports usually having GI upset and malaise after treatments but he feels his symptoms more intensely today. Denies fevers at home, MCDOWELL, vision changes, chest pain, SOB, back pain, dysuria, hematuria, diarrhea, or blood in his stool. 09/12/18 08:11 INITIAL HISTORY-_ Portacath placed a week ago and was accessed the next day for chemotherapy Has been having diarrhea ever since chemo-- multiple times a day nausea+, vomiting, denies headaches Abd pain , burning sensation no dysuria met with at bedside pt was confused yesterday-- CT head-- negative CT abd/pelvis-- dome like mass on liver Ct neck-- arthritis HOSPITAL COURSE Pt was admitted for sepsis, panycytopenia- found to have infected portacath -- MRSA, cdiff antigen positive Portacath removed was on iv Vancomycin, po vanco Evaluated by ID< Oncology, Cardiology , Neurology and GI Course complicated by dysphagia -- neurological and also related to thrush-- 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 He was given IV IG x 4 days --slow improvement of dysphagia Echo-- could not r/o vegetations but pt is high risk candidate and as per Cardiology-- RANDY could not be done, recommended iv antibiotics Meds changed to IV Daptomycin-- his cultures cleared- he completed iv Daptomycin-- 28 doses in total stools are formed He was receiving Clinimix with lipids along with some po food-- he was evaluated by swallow therapist He was evaluated by ENT for dysphagia-- no recommendations Thrush was treated with iv Caspofungin He now can drink upto 4 Ensures a day-- which is equivalent to tube feeds He refuses PEG placement though this was addressed several times Pt is cleared for rehab-- he has completed iv Daptomycin and PO vancomycin-- TLC removed by me today FURTHER PLANS for REHAB-- encourage 4-5 bottles of Ensure daily, along with solids-- he should drink at least 4 Ensures a day Encourage water /fluid intake OOB , sit upright at all times to eat Incentive spirometry physical therapy and occupational therapy holding Eliquis for now as risk is more than benefits Time spent in preparing dc-- 45 minutes Condition: Improved - Instructions Disposition: RESIDENTIAL FACILITY - Home Medications Comprehensive Discharge Medication List: Ambulatory Orders Gabapentin 400 mg PO BID 10/04/16 Allopurinol 300 mg PO DAILY 10/21/17 Cyanocobalamin (Vitamin B-12) [Vitamin B12] 2,500 mcg PO DAILY 10/21/17 Oxycodone HCl [Oxycontin] 10 mg PO PRN PRN 10/21/17 Pantoprazole Sodium [Protonix] 40 mg PO DAILY 10/21/17 Furosemide 40 mg PO DAILY 06/22/18 Metoprolol Succinate 25 mg PO BID 06/22/18 Amino Acids/Protein Hydrolys [Prosource No Carb Liquid Pkt] 30 ml PO BID@0800, 1730 #60 packet 10/11/18 Pantoprazole Sodium [Protonix -] 40 mg PO DAILY #30 tablet.ec 10/11/18 oxyCODONE HCL [Roxicodone -] 10 mg PO Q4H PRN #30 tablet MDD 4 10/11/18
--- NOTE | 2018-10-13 13:49 | PN ---
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 He completed 4 bottles yesterday. Pt is encouraged to have minimum of 4 ensure daily. Pt agreed. Pt scheduled for transfer today.
[2018-10-13 15:27] VITALS: BP 123/71; PULSE 102; TEMP 98.1
== END 2018-10-13 15:40 | DRG 314 ==
LOC: JER 07:45 → JERBED 09:01 → J7W 16:07 → JICU 09-14 09:46 → J8W 09-16 14:57
PROVIDERS: ADMIT Internal Medicine; ATTEND Internal Medicine
PROC: 0JPT3WZ Removal of Totally Implantable Vascular Access Device from Trunk Subcutaneous Tissue and Fascia, Percutaneous Approach (ICD-10-PCS; principal; 2018-09-14)
PROC: 30233N1 Transfusion of Nonautologous Red Blood Cells into Peripheral Vein, Percutaneous Approach (ICD-10-PCS; 2018-09-14)
PROC: 30233L1 Transfusion of Nonautologous Fresh Plasma into Peripheral Vein, Percutaneous Approach (ICD-10-PCS; 2018-09-14)
PROC: 30233K1 Transfusion of Nonautologous Frozen Plasma into Peripheral Vein, Percutaneous Approach (ICD-10-PCS; 2018-09-14)
DX: T82.7XXA Infection and inflammatory reaction due to other cardiac and vascular devices, implants and grafts, initial encounter (principal); A41.02 Sepsis due to Methicillin resistant Staphylococcus aureus; D61.810 Antineoplastic chemotherapy induced pancytopenia; C78.5 Secondary malignant neoplasm of large intestine and rectum; C78.7 Secondary malignant neoplasm of liver and intrahepatic bile duct; A04.72 Enterocolitis due to Clostridium difficile, not specified as recurrent; B37.0 Candidal stomatitis; E46 Unspecified protein-calorie malnutrition; G61.81 Chronic inflammatory demyelinating polyneuritis; Z94.84 Stem cells transplant status; I48.2 Chronic atrial fibrillation; D69.6 Thrombocytopenia, unspecified; R13.12 Dysphagia, oropharyngeal phase; I48.0 Paroxysmal atrial fibrillation; E11.42 Type 2 diabetes mellitus with diabetic polyneuropathy; R62.7 Adult failure to thrive; Z68.28 Body mass index [BMI] 28.0-28.9, adult; H11.32 Conjunctival hemorrhage, left eye; Z85.79 Personal history of other malignant neoplasms of lymphoid, hematopoietic and related tissues; Z85.038 Personal history of other malignant neoplasm of large intestine; Z90.49 Acquired absence of other specified parts of digestive tract; D64.89 Other specified anemias; I25.10 Atherosclerotic heart disease of native coronary artery without angina pectoris; K21.9 Gastro-esophageal reflux disease without esophagitis; Z86.73 Personal history of transient ischemic attack (TIA), and cerebral infarction without residual deficits; Z87.891 Personal history of nicotine dependence; Y84.8 Other medical procedures as the cause of abnormal reaction of the patient, or of later complication, without mention of misadventure at the time of the procedure; Y92.122 Bedroom in nursing home as the place of occurrence of the external cause; Z79.01 Long term (current) use of anticoagulants; G89.29 Other chronic pain; M54.5 Low back pain; E66.9 Obesity, unspecified; K57.30 Diverticulosis of large intestine without perforation or abscess without bleeding; K76.0 Fatty (change of) liver, not elsewhere classified; M10.9 Gout, unspecified
CPT/HCPCS: 36415; 36430; 36511; 36556; 36590; 70450-TC; 71045-TC-FY; 71111-TC-FY; 72070-TC-FY; 72125-TC; 74177-TC; 77001-TC-FY; 80048; 80053; 81003; 82550; 82607; 82803; 83605; 83735; 84100; 84436; 84443; 84484; 85025; 85027; 85379; 85384; 85610; 85730; 86850; 86900; 86901; 86922; 87040; 87070; 87086; 87186; 87205; 87324; 87449; 93005; 93010; 93306-TC; 94010; 97116-GP; 97161-GP; 99285-25; C1751; J0131; J0637; J0878; J1447; J1459; J7030; P9034; P9038; P9058

== ENCOUNTER 2018-10-21 15:00 | Inpatient (IN) | payer OTHER ==
[2018-10-21] MEDS ORDERED: ACETAMINOPHEN 1000 MG/100 ML VIAL (NON FORMULARY) IVPB ONE (16:48)
[2018-10-21] MEDS ORDERED: ONDANSETRON 4 MG/2 ML VIAL IVPB ONE (16:48)
[2018-10-21] MEDS ORDERED: SODIUM CHLORIDE 1,000 ML IV STA (16:48)
--- NOTE | 2018-10-21 16:55 | PDOC ---
Documentation entered by Donny Gant SCRIBE, acting as scribe for Aakash Jones MD. Aakash Jones MD: This documentation has been prepared by the Stalin castillo Elijah, SCRIBE, under my direction and personally reviewed by me in its entirety. I confirm that the documentation accurately reflects all work, treatment, procedures, and medical decision making performed by me. 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 Pt states that for about 5-6 weeks, he has had poor PO intake, stating that every time he swallows anything, including water, he gets nauseous and vomits. He did not have any abdominal pain until about 3 days ago, when he began to have severe pain in his lower abdomen. He denies diarrhea/constipation .Denies abdominal distention. Denies CP /SOB. Allergies: NKA PCP: Dr. Melchor Past History - Past Medical History Allergies/Adverse Reactions: Allergies Allergy/AdvReac Type Severity Reaction Status Date / Time No Known Allergies Allergy Verified 10/21/18 15:16 Home Medications: Ambulatory Orders Gabapentin 400 mg PO BID 10/04/16 Allopurinol 300 mg PO DAILY 10/21/17 Cyanocobalamin (Vitamin B-12) [Vitamin B12] 2,500 mcg PO DAILY 10/21/17 Oxycodone HCl [Oxycontin] 10 mg PO PRN PRN 10/21/17 Furosemide 40 mg PO DAILY 06/22/18 oxyCODONE HCL [Roxicodone -] 10 mg PO Q4H PRN #30 tablet MDD 4 10/11/18 Metoprolol Tartrate 12.5 mg PO BID #60 tablet 10/13/18 Acetaminophen 325 mg PO QID PRN 10/21/18 Nystatin 1 each MC DAILY 10/21/18 Omeprazole 20 mg PO DAILY 10/21/18 Zinc Oxide 20% Topical Oint 454 gm NR DAILY 10/21/18 Anemia: No Asthma: No Cancer: Yes (liver,colon,multiple myeloma) Cardiac Disorders: Yes (chronic AFIB) CVA: Yes (TIA-left eye) COPD: No CHF: No Dementia: No Diabetes: Yes GI Disorders: Yes (GERD) Disorders: No HTN: Yes Hypercholesterolemia: No Liver Disease: Yes Seizures: No Thyroid Disease: No - Surgical History Abdominal Surgery: Yes (colectomy, liver surgery) Appendectomy: No Cardiac Surgery: No Cholecystectomy: No Lung Surgery: No Neurologic Surgery: No Orthopedic Surgery: Yes (LEFT KNEE ARTHROSCOPY) - Immunization History Immunization Up to Date: Yes - Suicide/Smoking/Psychosocial Hx Smoking History: Former smoker Have you smoked in the past 12 months: No If you are a former smoker, when did you quit?: 1975 Information on smoking cessation initiated: No Hx Alcohol Use: No Drug/Substance Use Hx: No Substance Use Type: None Hx Substance Use Treatment: (RECOVERING ALCOHOLIC 1982) Review of Systems - Review of Systems Comments:: 10/21/18 16:48 GENERAL/CONSTITUTIONAL: No fever or chills. No weakness. HEAD, EYES, EARS, NOSE AND THROAT: No change in vision. No ear pain or discharge. No sore throat. CARDIOVASCULAR: No chest pain, no shortness of breath, no loss of consciousness RESPIRATORY: No cough, wheezing, or hemoptysis. GASTROINTESTINAL: + abdominal pain +N+V GENITOURINARY: No dysuria, frequency, or change in urination. MUSCULOSKELETAL: No joint or muscle swelling or pain. No neck or back pain. SKIN: No rash NEUROLOGIC: No vertigo, no change in strength/sensation. ENDOCRINE: No increased thirst. No abnormal weight change. HEMATOLOGIC/LYMPHATIC: No anemia, easy bleeding, or history of blood clots. ALLERGIC/IMMUNOLOGIC: No hives or skin allergy. *Physical Exam - Vital Signs Last Vital Signs Temp Pulse Resp BP Pulse Ox 98.3 F 107 H 18 120/73 97 10/21/18 15:08 10/21/18 15:08 10/21/18 15:08 10/21/18 15:08 10/21/18 15:08 - Physical Exam Comments: 10/21/18 16:47 GENERAL: Awake, alert, and fully oriented, in no acute distress. HEAD: No signs of trauma EYES: PERRLA, EOMI, sclera anicteric, conjunctiva clear ENT: Auricles normal inspection, hearing grossly normal, nares patent, oropharynx clear without exudates. Moist mucosa NECK: Nontender, no stepoffs, Normal ROM, supple, no lymphadenopathy, JVD, or masses LUNGS: Breath sounds equal, clear to auscultation bilaterally. No wheezes, and no crackles HEART: Regular rate and rhythm, normal S1 and S2, no murmurs, rubs or gallops ABDOMEN: + LLQ and RLQ TTP + guarding, normoactive bowel sounds. no rebound. No masses EXTREMITIES: Normal range of motion, no edema. No clubbing or cyanosis. No cords, erythema, or tenderness NEUROLOGICAL: Cranial nerves II through XII intact. 5/5 strength and sensation in all extremities, Normal speech, normal gait, normal cerebellar function SKIN: Warm, Dry, normal turgor, no rashes or lesions noted. ED Treatment Course - LABORATORY CBC & Chemistry Diagram: 10/23/18 20:05 10/23/18 20:05 - RADIOLOGY Radiology Studies Ordered: Category Date Time Status ABDOMEN & PELVIS CT WITH CONTR [CT] Stat CT Scan 10/21/18 16:48 Ordered Medical Decision Making - Medical Decision Making 10/21/18 16:55 73 M with lower abdominal pain, N+V. Will need to evaluate for acute abdomen. - Labs, lipase, lactate - CTAP - IVF, pain control *DC/Admit/Observation/Transfer Diagnosis at time of Disposition: Failure to thrive Qualifiers: Failure to thrive age range: in adult Qualified Code(s): R62.7 - Adult failure to thrive Atrial fibrillation Qualifiers: Atrial fibrillation type: unspecified Qualified Code(s): I48.91 - Unspecified atrial fibrillation HTN (hypertension) Qualifiers: Hypertension type: unspecified Qualified Code(s): I10 - Essential (primary) hypertension - Discharge Dispostion Condition at time of disposition: Guarded - Referrals - Patient Instructions - Post Discharge Activity - Attestations Physician Attestion: 10/24/18 01:06 I, Dr. Aakash Jones MD, attest that this document has been prepared under my direction and personally reviewed by me in its entirety. I further attest, that it accurately reflects all work, treatment, procedures and medical decision -making performed by me.
[2018-10-21] MEDS ORDERED: ACETAMINOPHEN INJECTION 100 ML IVPB ONE (18:14)
[2018-10-21] MEDS ORDERED: ONDANSETRON 4 MG/2 ML VIAL ONE (18:14)
[2018-10-21 18:39] LABS: BASO % 0.4 % (0-2.0); EOS % 0.1 % (0-4.5); HEMATOCRIT 33.8 % (35.4-49); HEMOGLOBIN 11.1 GM/dL (11.7-16.9); LYMPH % 6.1 % (8-40); MCH 29.5 pg (25.7-33.7); MCHC 32.7 g/dl (32.0-35.9); MEAN CELL VOLUME 90.2 fl (80-96); MEAN PLT VOLUME 9.7 fl (7.5-11.1); MONO % 7.9 % (3.8-10.2); NEUT % 85.5 % (42.8-82.8); PLATELET COUNT 183 K/MM3 (134-434); RBC 3.75 M/mm3 (4.00-5.60); RDW 20.5 % (11.9-15.9); WHITE BLOOD COUNT 10.9 K/mm3 (4.0-10.0)
[2018-10-21 19:50] LABS: ALBUMIN 2.8 g/dl (3.4-5.0); ALK PHOS 208 U/L (45-117); ANION GAP 8 MMOL/L (8-16); BILIRUBIN,TOTAL 1.4 mg/dL (0.2-1); BLOOD UREA NITROGEN 15.8 mg/dL (7-18); CALCIUM 8.5 mg/dL (8.5-10.1); CHLORIDE 94 mmol/L (98-107); CO2 31 mmol/L (21-32); CREATININE 1.2 mg/dL (0.55-1.3); GLUCOSE,RANDOM 133 mg/dL (74-106); LIPASE 341 U/L (73-393); SGPT/ALT 84 U/L (13-61); SODIUM 133 mmol/L (136-145); TOT PROT 7.6 g/dl (6.4-8.2)
[2018-10-21 19:51] LABS: POTASSIUM 3.7 mmol/L (3.5-5.1); SGOT/AST 90 U/L (15-37)
[2018-10-21 20:08] LABS: EPI CELLS 1.1 /HPF (0-5/HPF); HYALINE CASTS 3 /lpf (0-8); URINE APPEARANCE CLEAR; URINE BACTERIA 6.3 /hpf (NEGATIVE); URINE BILIRUBIN 1+ (NEGATIVE); URINE COLOR DK YELLOW; URINE GLUCOSE (UA) NEGATIVE (NEGATIVE); URINE KETONE TRACE (NEGATIVE); URINE LEUK ESTERASE NEGATIVE (NEGATIVE); URINE NITRITE NEGATIVE (NEGATIVE); URINE PROTEIN 1+ (NEGATIVE); URINE RBC 6 /hpf (0-4); URINE WBC 2 /hpf (0-5)
[2018-10-21 22:00] LABS: MACROCYTOSIS 2+; PLATELET ESTIMATE ADEQUATE; TEAR DROP CELLS 1+
[2018-10-22] MEDS ORDERED: SODIUM CHLORIDE 1,000 ML IV SCH (02:30)
--- NOTE | 2018-10-22 03:05 | PDOC ---
*Physical Exam - Vital Signs Last Vital Signs Temp Pulse Resp BP Pulse Ox 98.2 F 105 H 20 117/70 96 10/22/18 00:22 10/22/18 00:22 10/22/18 00:22 10/22/18 00:22 10/22/18 00:22 ED Treatment Course - LABORATORY CBC & Chemistry Diagram: 10/21/18 17:41 10/21/18 17:41 - ADDITIONAL ORDERS Additional order review: Laboratory Results 10/21/18 10/21/18 10/21/18 19:12 17:45 17:41 Sodium 133 L Potassium 3.7 Chloride 94 L Carbon Dioxide 31 Anion Gap 8 BUN 15.8 Creatinine 1.2 Est GFR (CKD-EPI)AfAm 69.11 Est GFR (CKD-EPI)NonAf 59.63 Random Glucose 133 H Lactic Acid 1.1 Calcium 8.5 Total Bilirubin 1.4 H AST 90 H ALT 84 H Alkaline Phosphatase 208 H Creatine Kinase 107 Troponin I < 0.02 Total Protein 7.6 Albumin 2.8 L Lipase 341 Urine Color Dk yellow Urine Appearance Clear Urine pH 5.0 Ur Specific [place] 1.025 Urine Protein 1+ H Urine Glucose (UA) Negative Urine Ketones Trace H Urine Blood Negative Urine Nitrite Negative Urine Bilirubin 1+ H Urine Urobilinogen 1.0 Ur Leukocyte Esterase Negative Urine WBC (Auto) 2 Urine RBC (Auto) 6 Urine Casts (Auto) 3 U Epithel Cells (Auto) 1.1 Urine Bacteria (Auto) 6.3 10/21/18 17:41 RBC 3.75 L MCV 90.2 MCHC 32.7 RDW 20.5 H MPV 9.7 Neutrophils % 85.5 H D Lymphocytes % 6.1 L D Monocytes % 7.9 Eosinophils % 0.1 Basophils % 0.4 - Medications Given in the ED: ED Medications Discontinued Medications Generic Name Dose Route Start Last Admin Trade Name Freq PRN Reason Stop Dose Admin Acetaminophen 1,000 mg 10/21/18 16:48 10/21/18 18:45 Ofirmev Injection - IVPB 10/21/18 16:49 1,000 mg ONCE ONE Administration Sodium Chloride 1,000 mls @ 1,000 mls/hr 10/21/18 16:48 10/21/18 18:45 Normal Saline - IV 10/21/18 17:47 1,000 mls/hr ASDIR STA Administration Ondansetron HCl 4 mg 10/21/18 16:48 10/21/18 18:45 Zofran Injection IVPB 10/21/18 16:49 4 mg ONCE ONE Administration Medical Decision Making - Medical Decision Making CT w/o evidence of acute change Inability to tolerate PO/FTT Mild anemia, no indication for transfusion at this time No ANA Lytes unremarkable Trop I neg LFTs mildly elevated Lipase wnl Started on maintenance fluids [facility] admitting microblogged, awaiting call back Dispo: Admitted to Med/Surg for FTT, PO intolerance 10/22/18 05:51 *DC/Admit/Observation/Transfer Diagnosis at time of Disposition: Atrial fibrillation Qualifiers: Atrial fibrillation type: unspecified Qualified Code(s): I48.91 - Unspecified atrial fibrillation HTN (hypertension) Qualifiers: Hypertension type: unspecified Qualified Code(s): I10 - Essential (primary) hypertension Failure to thrive Qualifiers: Failure to thrive age range: in adult Qualified Code(s): R62.7 - Adult failure to thrive - Discharge Dispostion Condition at time of disposition: Guarded Decision to Admit order: Yes - Referrals - Patient Instructions - Post Discharge Activity
[2018-10-22] MEDS ORDERED: MORPHINE SULFATE 2 MG/ML VIAL IVPUSH PRN (06:00)
[2018-10-22] MEDS ORDERED: ONDANSETRON 4 MG/2 ML VIAL IVPUSH PRN (06:01)
[2018-10-22] MEDS: ACETAMINOPHEN 325 MG TABLET (FP) PO PRN (06:28)
--- NOTE | 2018-10-22 08:14 | HP ---
CHIEF COMPLAINT:nausea, vomiting and abdominal pain PCP: HISTORY OF PRESENT ILLNESS: Patient is a 73 year old male with past medical history of multiple myeloma, colon cancer s/p resection, HTN, atrial fibrillation, DM, presented to the ED due to worsening diffuse abdominal pain, now accompanied by nausea and NBNB vomiting for 3 days. Patient reported abdominal discomfort that started months ago that was intermittent. And because of this, patient reported decreased appetite in the last 5-6 weeks. Patient denies any fever,chills, headache, dizziness, chest pain, SOB, changes in bowel movement, melena, hematochezia, urinary symptoms. ER course was notable for: (1) (2) (3) Recent Travel:denies PAST MEDICAL HISTORY: multiple myeloma colon cancer s/p resection HTN atrial fibrillation DM PAST SURGICAL HISTORY: hemicolectomy Social History: Smoking:denies Alcohol:denies Drugs: denies Family History: Allergies No Known Allergies Allergy (Verified 10/21/18 15:16) HOME MEDICATIONS: Home Medications Medication Instructions Recorded Gabapentin 400 mg PO BID 10/04/16 Allopurinol 300 mg PO DAILY 10/21/17 Cyanocobalamin (Vitamin B-12) 2,500 mcg PO DAILY 10/21/17 [Vitamin B12] Oxycodone HCl [Oxycontin] 10 mg PO PRN PRN 10/21/17 Furosemide 40 mg PO DAILY 06/22/18 oxyCODONE HCL [Roxicodone -] 10 mg PO Q4H PRN #30 tablet MDD 4 10/11/18 Metoprolol Tartrate 12.5 mg PO BID #60 tablet 10/13/18 Acetaminophen 325 mg PO QID PRN 10/21/18 Nystatin 1 each MC DAILY 10/21/18 Omeprazole 20 mg PO DAILY 10/21/18 Zinc Oxide 20% Topical Oint 454 gm NR DAILY 10/21/18 REVIEW OF SYSTEMS CONSTITUTIONAL: Absent: fever, chills, diaphoresis, generalized weakness, malaise, loss of appetite, weight change HEENT: Absent: rhinorrhea, nasal congestion, throat pain, throat swelling, difficulty swallowing, mouth swelling, ear pain, eye pain, visual changes CARDIOVASCULAR: Absent: chest pain, syncope, palpitations, irregular heart rate, lightheadedness , peripheral edema RESPIRATORY: Absent: cough, shortness of breath, dyspnea with exertion, orthopnea, wheezing, stridor, hemoptysis GASTROINTESTINAL: Absent: abdominal pain, abdominal distension, nausea, vomiting, diarrhea, constipation, melena, hematochezia GENITOURINARY: Absent: dysuria, frequency, urgency, hesitancy, hematuria, flank pain, genital pain MUSCULOSKELETAL: Absent: myalgia, arthralgia, joint swelling, back pain, neck pain SKIN: Absent: rash, itching, pallor HEMATOLOGIC/IMMUNOLOGIC: Absent: easy bleeding, easy bruising, lymphadenopathy, frequent infections ENDOCRINE: Absent: unexplained weight gain, unexplained weight loss, heat intolerance, cold intolerance NEUROLOGIC: Absent: headache, focal weakness or paresthesias, dizziness, unsteady gait, seizure, mental status changes, bladder or bowel incontinence PSYCHIATRIC: Absent: anxiety, depression, suicidal or homicidal ideation, hallucinations. PHYSICAL EXAMINATION Vital Signs - 24 hr 10/21/18 10/21/18 10/22/18 15:08 20:56 00:22 Temperature 98.3 F 98.2 F Pulse Rate 107 H Pulse Rate [ 98 H 105 H Apical] Respiratory 18 20 20 Rate Blood Pressure 120/73 Blood Pressure 96/62 117/70 [Left Arm] O2 Sat by Pulse 97 95 96 Oximetry (%) 10/22/18 10/22/18 10/22/18 03:52 05:25 05:58 Temperature 98.3 F Pulse Rate 123 H Pulse Rate [ Apical] Respiratory 20 Rate Blood Pressure 107/73 Blood Pressure [Left Arm] O2 Sat by Pulse 96 92 L Oximetry (%) GENERAL: Awake, alert, and fully oriented, in no acute distress. HEAD: Normal with no signs of trauma. EYES: PERRLA, EOMI, sclera anicteric, conjunctiva clear. EARS, NOSE, THROAT:Moist mucous membranes. NECK: Normal range of motion, supple. LUNGS: Breath sounds equal, clear to auscultation bilaterally. HEART: Regular rate and rhythm, normal S1 and S2 without murmur, rub or gallop. ABDOMEN: Soft, +diffuse abdominal tenderness, not distended, normoactive bowel sounds. UPPER EXTREMITIES: 2+ pulses, warm, well-perfused. No peripheral edema. LOWER EXTREMITIES: 2+ pulses, warm, well-perfused. No peripheral edema. NEUROLOGICAL: Cranial nerves II-XII intact. Normal speech. Gait not observed. PSYCHIATRIC: Cooperative. Good eye contact. Appropriate mood and affect. SKIN: Warm, dry, normal turgor, no rashes or lesions noted. Laboratory Results - last 24 hr 10/21/18 10/21/18 10/21/18 17:41 17:41 17:45 WBC 10.9 H RBC 3.75 L Hgb 11.1 L Hct 33.8 L MCV 90.2 MCH 29.5 MCHC 32.7 RDW 20.5 H Plt Count 183 MPV 9.7 Absolute Neuts (auto) 9.4 H Neutrophils % 85.5 H D Lymphocytes % 6.1 L D Monocytes % 7.9 Eosinophils % 0.1 Basophils % 0.4 Nucleated RBC % 0 Hypochromia 1+ Platelet Estimate Adequate Polychromasia 1+ Macrocytosis 2+ Tear Drop Cells 1+ Sodium 133 L Potassium 3.7 Chloride 94 L Carbon Dioxide 31 Anion Gap 8 BUN 15.8 Creatinine 1.2 Est GFR (CKD-EPI)AfAm 69.11 Est GFR (CKD-EPI)NonAf 59.63 POC Glucometer Random Glucose 133 H Lactic Acid 1.1 Calcium 8.5 Total Bilirubin 1.4 H AST 90 H ALT 84 H Alkaline Phosphatase 208 H Creatine Kinase 107 Troponin I < 0.02 Total Protein 7.6 Albumin 2.8 L Lipase 341 Urine Color Urine Appearance Urine pH Ur Specific [place] Urine Protein Urine Glucose (UA) Urine Ketones Urine Blood Urine Nitrite Urine Bilirubin Urine Urobilinogen Ur Leukocyte Esterase Urine WBC (Auto) Urine RBC (Auto) Urine Casts (Auto) U Epithel Cells (Auto) Urine Bacteria (Auto) 10/21/18 10/22/18 19:12 06:30 WBC RBC Hgb Hct MCV MCH MCHC RDW Plt Count MPV Absolute Neuts (auto) Neutrophils % Lymphocytes % Monocytes % Eosinophils % Basophils % Nucleated RBC % Hypochromia Platelet Estimate Polychromasia Macrocytosis Tear Drop Cells Sodium Potassium Chloride Carbon Dioxide Anion Gap BUN Creatinine Est GFR (CKD-EPI)AfAm Est GFR (CKD-EPI)NonAf POC Glucometer 129 Random Glucose Lactic Acid Calcium Total Bilirubin AST ALT Alkaline Phosphatase Creatine Kinase Troponin I Total Protein Albumin Lipase Urine Color Dk yellow Urine Appearance Clear Urine pH 5.0 Ur Specific [place] 1.025 Urine Protein 1+ H Urine Glucose (UA) Negative Urine Ketones Trace H Urine Blood Negative Urine Nitrite Negative Urine Bilirubin 1+ H Urine Urobilinogen 1.0 Ur Leukocyte Esterase Negative Urine WBC (Auto) 2 Urine RBC (Auto) 6 Urine Casts (Auto) 3 U Epithel Cells (Auto) 1.1 Urine Bacteria (Auto) 6.3 ASSESSMENT/PLAN: Patient is a 73 year old male with past medical history of multiple myeloma, colon cancer s/p resection, HTN, atrial fibrillation, DM, presented to the ED due to worsening abdominal pain, now accompanied by nausea and NBNB vomiting for 3 days. #Abdominal pain, failure to thrive, likely 2/2 CA -CTAP: 2 liver lesions right lobe of liver. Loculated fat right lower quadrant of the abdomen, unchanged. s/p partial colectomy. colonic diverticulosis without findings suggestive of acute diverticultis. -Morphine 2q6 prn for pain -Clear liquids -may consider IR evaluation for possible drainage of liver lesions -Zofran PRN for nausea/vomiting -Palliative care consulted. #HTN -Metoprolol 12.5mg BID #DM -insulin sliding scale implemented -BGM ACHS #FEN -Iv NS @42cc/hr -Electrolytes wnl, routine bmp monitoring -clear diet, advance as tolerated #Prophylaxis -Heparin 5000units sq bid #Disposition -full code -admit to med surg Visit type - Emergency Visit Emergency Visit: Yes ED Registration Date: 10/21/18 Care time: The patient presented to the Emergency Department on the above date and was hospitalized for further evaluation of their emergent condition. - New Patient This patient is new to me today: Yes Date on this admission: 10/24/18 - Critical Care Critical Care patient: No
[2018-10-22 08:15] LABS: BASO % 0.2 % (0-2.0); EOS % 0.1 % (0-4.5); HEMATOCRIT 32.9 % (35.4-49); HEMOGLOBIN 10.6 GM/dL (11.7-16.9); LYMPH % 5.3 % (8-40); MCH 29.4 pg (25.7-33.7); MCHC 32.1 g/dl (32.0-35.9); MEAN CELL VOLUME 91.7 fl (80-96); MEAN PLT VOLUME 9.2 fl (7.5-11.1); MONO % 7.5 % (3.8-10.2); NEUT % 86.9 % (42.8-82.8); RBC 3.59 M/mm3 (4.00-5.60); RDW 20.2 % (11.9-15.9); WHITE BLOOD COUNT 9.8 K/mm3 (4.0-10.0)
--- NOTE | 2018-10-22 08:38 | PN ---
Teaching Attending Note Name of Resident: Payton Whiting ATTENDING PHYSICIAN STATEMENT I saw and evaluated the patient. I reviewed the resident's note and discussed the case with the resident. I agree with the resident's findings and plan as documented. SUBJECTIVE: 3 year old male with past medical history of multiple myeloma, colon cancer s/p hemicolectomy, HTN, atrial fibrillation, DM, presented to the ED due to worsening diffuse abdominal pain, now accompanied by nausea and NBNB vomiting for 3 days. OBJECTIVE: Last Vital Signs Temp Pulse Resp BP Pulse Ox 98.3 F 123 H 20 107/73 92 L 10/22/18 05:58 10/22/18 05:58 10/22/18 05:58 10/22/18 05:58 10/22/18 05:25 abdomen- soft, bs+, nt Abnormal Lab Results 10/21/18 10/21/18 10/21/18 17:41 17:41 19:12 WBC 10.9 H RBC 3.75 L Hgb 11.1 L Hct 33.8 L RDW 20.5 H Absolute Neuts (auto) 9.4 H Neutrophils % 85.5 H D Lymphocytes % 6.1 L D Sodium 133 L Chloride 94 L Random Glucose 133 H Total Bilirubin 1.4 H AST 90 H ALT 84 H Alkaline Phosphatase 208 H Albumin 2.8 L Urine Protein 1+ H Urine Ketones Trace H Urine Bilirubin 1+ H imaging reviewed ASSESSMENT AND PLAN: Abd pain- may be from mets from prior colon ca. Lesions seen in liver may be mets. R/o drainable abscess. Follows with Dr. Gomez for heme/onc. -med/surg -consult IR and heme/onc -morphine IV for pain control -dvt ppx -heparin sc
[2018-10-22 08:56] LABS: BLOOD UREA NITROGEN 13.2 mg/dL (7-18); CREATININE 1.1 mg/dL (0.55-1.3); POTASSIUM 3.5 mmol/L (3.5-5.1)
[2018-10-22 08:57] LABS: ALBUMIN 2.6 g/dl (3.4-5.0); BILIRUBIN,TOTAL 1.3 mg/dL (0.2-1); MAGNESIUM 2.3 mg/dL (1.8-2.4); PHOSPHOROUS 2.8 mg/dL (2.5-4.9); TOT PROT 6.7 g/dl (6.4-8.2)
[2018-10-22 09:23] LABS: PLATELET COUNT 161 K/MM3 (134-434)
--- NOTE | 2018-10-22 09:26 | PN ---
Progress Note (short form) - Note Progress Note: events noted admitted for vomiting. abd pain Vital Signs - 24 hr 10/21/18 10/21/18 10/22/18 15:08 20:56 00:22 Temperature 98.3 F 98.2 F Pulse Rate 107 H Pulse Rate [ 98 H 105 H Apical] Respiratory 18 20 20 Rate Blood Pressure 120/73 Blood Pressure 96/62 117/70 [Left Arm] O2 Sat by Pulse 97 95 96 Oximetry (%) 10/22/18 10/22/18 10/22/18 03:52 05:25 05:58 Temperature 98.3 F Pulse Rate 123 H Pulse Rate [ Apical] Respiratory 20 Rate Blood Pressure 107/73 Blood Pressure [Left Arm] O2 Sat by Pulse 96 92 L Oximetry (%) Current Medications Generic Name Dose Route Start Last Admin Trade Name Freq PRN Reason Stop Dose Admin Acetaminophen 325 mg 10/22/18 06:02 10/22/18 06:28 Tylenol - PO 325 mg QID PRN Administration PAIN Allopurinol 300 mg 10/22/18 10:00 Zyloprim - PO DAILY [facility] [place] Cyanocobalamin 2,500 mcg 10/22/18 10:00 Vitamin B12 - PO DAILY [facility] [place] Gabapentin 400 mg 10/22/18 10:00 Neurontin - PO BID [facility] [place] Heparin Sodium (Porcine) 5,000 unit 10/22/18 10:00 Heparin - SQ BID [facility] [place] Sodium Chloride 1,000 mls @ 42 mls/hr 10/22/18 02:30 10/22/18 02:30 Normal Saline - IV 42 mls/hr ASDIR JAMIE Administration Insulin Aspart 1 vial 10/22/18 11:00 Novolog Vial Sliding Scale - SQ ACHS [facility] [place] Protocol Metoprolol Tartrate 12.5 mg 10/22/18 10:00 Lopressor - PO BID [facility] [place] Morphine Sulfate 2 mg 10/22/18 06:00 Morphine Sulfate IVPUSH Q4H PRN PAIN LEVEL 6-10 Multi-Ingredient Ointment 1 applic 10/22/18 10:00 Zinc Oxide TP DAILY [facility] [place] Nystatin 1 applic 10/22/18 10:00 Mycostatin Cream - TP DAILY [facility] Ondansetron HCl 4 mg 10/22/18 06:01 Zofran Injection IVPUSH Q8H PRN NAUSEA AND/OR VOMITING Pantoprazole Sodium 20 mg 10/22/18 10:00 Protonix - PO DAILY [facility] [place] Laboratory Results - last 24 hr 10/21/18 10/21/18 10/21/18 17:41 17:41 17:45 WBC 10.9 H RBC 3.75 L Hgb 11.1 L Hct 33.8 L MCV 90.2 MCH 29.5 MCHC 32.7 RDW 20.5 H Plt Count 183 MPV 9.7 Absolute Neuts (auto) 9.4 H Neutrophils % 85.5 H D Lymphocytes % 6.1 L D Monocytes % 7.9 Eosinophils % 0.1 Basophils % 0.4 Nucleated RBC % 0 Hypochromia 1+ Platelet Estimate Adequate Polychromasia 1+ Macrocytosis 2+ Tear Drop Cells 1+ Sodium 133 L Potassium 3.7 Chloride 94 L Carbon Dioxide 31 Anion Gap 8 BUN 15.8 Creatinine 1.2 Est GFR (CKD-EPI)AfAm 69.11 Est GFR (CKD-EPI)NonAf 59.63 POC Glucometer Random Glucose 133 H Lactic Acid 1.1 Calcium 8.5 Phosphorus Magnesium Total Bilirubin 1.4 H AST 90 H ALT 84 H Alkaline Phosphatase 208 H Creatine Kinase 107 Troponin I < 0.02 Total Protein 7.6 Albumin 2.8 L Lipase 341 Urine Color Urine Appearance Urine pH Ur Specific [place] Urine Protein Urine Glucose (UA) Urine Ketones Urine Blood Urine Nitrite Urine Bilirubin Urine Urobilinogen Ur Leukocyte Esterase Urine WBC (Auto) Urine RBC (Auto) Urine Casts (Auto) U Epithel Cells (Auto) Urine Bacteria (Auto) 10/21/18 10/22/18 10/22/18 19:12 06:30 07:00 WBC 9.8 RBC 3.59 L Hgb 10.6 L Hct 32.9 L MCV 91.7 MCH 29.4 MCHC 32.1 RDW 20.2 H Plt Count 161 MPV 9.2 Absolute Neuts (auto) 8.5 H Neutrophils % 86.9 H Lymphocytes % 5.3 L Monocytes % 7.5 Eosinophils % 0.1 Basophils % 0.2 Nucleated RBC % 0 Hypochromia Platelet Estimate Polychromasia Macrocytosis Tear Drop Cells Sodium Potassium Chloride Carbon Dioxide Anion Gap BUN Creatinine Est GFR (CKD-EPI)AfAm Est GFR (CKD-EPI)NonAf POC Glucometer 129 Random Glucose Lactic Acid Calcium Phosphorus Magnesium Total Bilirubin AST ALT Alkaline Phosphatase Creatine Kinase Troponin I Total Protein Albumin Lipase Urine Color Dk yellow Urine Appearance Clear Urine pH 5.0 Ur Specific [place] 1.025 Urine Protein 1+ H Urine Glucose (UA) Negative Urine Ketones Trace H Urine Blood Negative Urine Nitrite Negative Urine Bilirubin 1+ H Urine Urobilinogen 1.0 Ur Leukocyte Esterase Negative Urine WBC (Auto) 2 Urine RBC (Auto) 6 Urine Casts (Auto) 3 U Epithel Cells (Auto) 1.1 Urine Bacteria (Auto) 6.3 10/22/18 07:30 WBC RBC Hgb Hct MCV MCH MCHC RDW Plt Count MPV Absolute Neuts (auto) Neutrophils % Lymphocytes % Monocytes % Eosinophils % Basophils % Nucleated RBC % Hypochromia Platelet Estimate Polychromasia Macrocytosis Tear Drop Cells Sodium 139 Potassium 3.5 Chloride 99 Carbon Dioxide 30 Anion Gap 11 BUN 13.2 Creatinine 1.1 Est GFR (CKD-EPI)AfAm 76.78 Est GFR (CKD-EPI)NonAf 66.24 POC Glucometer Random Glucose 118 H Lactic Acid Calcium 8.0 L Phosphorus 2.8 Magnesium 2.3 Total Bilirubin 1.3 H AST 66 H ALT 74 H Alkaline Phosphatase 197 H Creatine Kinase Troponin I Total Protein 6.7 Albumin 2.6 L Lipase Urine Color Urine Appearance Urine pH Ur Specific [place] Urine Protein Urine Glucose (UA) Urine Ketones Urine Blood Urine Nitrite Urine Bilirubin Urine Urobilinogen Ur Leukocyte Esterase Urine WBC (Auto) Urine RBC (Auto) Urine Casts (Auto) U Epithel Cells (Auto) Urine Bacteria (Auto) S1 S2 RRR Lungs decreased Abd- soft, tender all areas No edema weak and cachetic PLAN spoke with GI-- pt will need J tube because he may potentially vomit gastric contents with G tube iv fluids reglan Oncology eval Problem List - Problems (1) Colon cancer metastasized to liver Code(s): C18.9 - MALIGNANT NEOPLASM OF COLON, UNSPECIFIED; C78.7 - SECONDARY MALIG NEOPLASM OF LIVER AND INTRAHEPATIC BILE DUCT (2) Failure to thrive Code(s): RJT5138 - Qualifiers: Failure to thrive age range: in adult Qualified Code(s): R62.7 - Adult failure to thrive (3) HTN (hypertension) Code(s): I10 - ESSENTIAL (PRIMARY) HYPERTENSION Qualifiers: Hypertension type: unspecified Qualified Code(s): I10 - Essential (primary ) hypertension (4) Dysphagia Code(s): R13.10 - DYSPHAGIA, UNSPECIFIED
[2018-10-22] MEDS: HEPARIN NA (PORCINE) 5,000 UNITS/ML 1ML VIAL SQ SCH ×2 (09:51→21:45)
[2018-10-22] MEDS: PANTOPRAZOLE 20 MG TABLET (FP) PO SCH (09:57)
[2018-10-22] MEDS: CYANOCOBALAMIN 1,000 MCG TABLET (FP) PO SCH (09:57)
[2018-10-22] MEDS: GABAPENTIN 400 MG CAPSULE (FP) PO SCH ×2 (09:58→21:48)
[2018-10-22] MEDS: ALLOPURINOL 300 MG TABLET (FP) PO SCH (09:58)
[2018-10-22] MEDS: METOPROLOL TARTRATE 25 MG TABLET (FP) PO SCH ×2 (09:58→21:45)
[2018-10-22] MEDS: NYSTATIN 100,000 UNIT/GM TOPICAL CREAM 15 GM TUBE TP SCH (09:59)
[2018-10-22] MEDS: ZINC OXIDE 20% TOPICAL OINTMENT 30 GM TUBE TP SCH (09:59)
[2018-10-22] MEDS ORDERED: FUROSEMIDE 40 MG TABLET (FP) PO SCH (10:00)
[2018-10-22] MEDS: INSULIN SLIDING SCALE (NOVOLOG) 1 VIAL SQ SCH ×3 (12:23→21:48)
--- NOTE | 2018-10-22 15:06 | CON.GI ---
Consult Consult Specialty:: Gastroenterology Referred by:: Dr Emma Brand Reason for Consultation:: Postprandial vomiting - History of Present Illness Chief Complaint: Vomiting with any oral intake History of Present Illness: 73M is well known to me from previous consultations. Please refer to the consultation for details. Michael is unable to keep anything down, even water. He has only minimal oral intake recently despite multiple IVIG infusions ( has an inflammatory polyneuropathy witha bulbar palsy component) which have rectified this situation in the past. He did have a G tube inserted on 05/03/17 after which he regained 30lbs. Subsequent to that however he was found to have a midtransverse colon cancer which was resected but which unfortunately has spread to his liver. He was receiving chemotherapy with Dr Gomez. He has been refractory to having a G tube reinserted. He has also developed a cough. - Past Medical History [employer] OFFICER: Yes: Peripheral Neuropathy (inflammatory neuropathy and bulbar palsy - Dr Monaco treats with IVIG,h/o Velcade exposure), Other (V) Cardio/Vascular: Yes: AFIB (paroxysmal), HTN Gastrointestinal: Yes: Cancer (transverse colon adenocarcinoma resected now with liver mets), GERD, Other (Schatzki ring dilated 04/30/17) Hepatobiliary: Yes: Other (colon cancer metastases, fatty liver) Heme/Onc: Yes: Anemia, Cancer (Multiple myeloma) Infectious Disease: Yes: C-Diff, MRSA (CVP port) Psych: Yes: Addictions (recovering alcoholic since 1982), Depression Musculoskeletal: Yes: Chronic low back pain, Osteoarthritis, Other (h/o steroid induced myositis) Rheumatology: Yes: Gout Endocrine: Yes: Diabetes Mellitus Additional Medical History: glaucoma with decreased vision and need for surgeryleft eye - Past Surgical History Past Surgical History: Yes: Arthrosocopy (left knee), Cataract Removal ( bilateral), Colectomy (extended right hemicolectomy for transverse colon cancer with umbilical hernia repair& MARY ANNE 12/06/17- Dr Ribeiro ), Colonoscopy, Hernia Repair (umbilical hernia repair with right hemicolectomy), Tonsillectomy, Upper Endoscopy Additional Surgical History: 05/06 PEG insertion, removed 11/03 - Alcohol/Substance Use Hx Alcohol Use: Yes (recovering alcoholic since 1982) History of Substance Use: reports: None - Smoking History Smoking history: Former smoker Have you smoked in the past 12 months: No If you are a former smoker, when did you quit?: 1975 - Social History Usual Living Arrangement: Correction (Currently residing in 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 Place of : [facility] History of Recent Travel: No Home Medications - Allergies Allergies/Adverse Reactions: Allergies Allergy/AdvReac Type Severity Reaction Status Date / Time No Known Allergies Allergy Verified 10/21/18 15:16 - Home Medications Home Medications: Ambulatory Orders Gabapentin 400 mg PO BID 10/04/16 Allopurinol 300 mg PO DAILY 10/21/17 Cyanocobalamin (Vitamin B-12) [Vitamin B12] 2,500 mcg PO DAILY 10/21/17 Oxycodone HCl [Oxycontin] 10 mg PO PRN PRN 10/21/17 Furosemide 40 mg PO DAILY 06/22/18 oxyCODONE HCL [Roxicodone -] 10 mg PO Q4H PRN #30 tablet MDD 4 10/11/18 Metoprolol Tartrate 12.5 mg PO BID #60 tablet 10/13/18 Acetaminophen 325 mg PO QID PRN 10/21/18 Nystatin 1 each MC DAILY 10/21/18 Omeprazole 20 mg PO DAILY 10/21/18 Zinc Oxide 20% Topical Oint 454 gm NR DAILY 10/21/18 Family Disease History - Family Disease History Family Disease History: Other: Father (: 68: lung Ca), Mother (: 60's: myeloid leukemia ), Brother (1, : 65: colon cancer), Son (1, healthy), Daughter (1 with SLE) Review of Systems - Review of Systems Constitutional: reports: Lethargy, Loss of Appetite, Unintentional Wgt. Loss, Weakness Eyes: reports: No Symptoms HENT: reports: No Symptoms Neck: reports: No Symptoms Cardiovascular: reports: No Symptoms Respiratory: reports: Cough Gastrointestinal: reports: Abdominal Pain, Bloating, Vomiting Physical Exam-GI Vital Signs: Vital Signs Temperature 99.1 F 10/22/18 14:39 Pulse Rate 101 H 10/22/18 14:39 Respiratory Rate 18 10/22/18 14:39 Blood Pressure 107/65 10/22/18 14:39 O2 Sat by Pulse Oximetry (%) 92 L 10/22/18 05:25 CBC,CMP WBC 9.8 K/mm3 (4.0-10.0) 10/22/18 07:00 RBC 3.59 M/mm3 (4.00-5.60) L 10/22/18 07:00 Hgb 10.6 GM/dL (11.7-16.9) L 10/22/18 07:00 Hct 32.9 % (35.4-49) L 10/22/18 07:00 MCV 91.7 fl (80-96) 10/22/18 07:00 MCH 29.4 pg (25.7-33.7) 10/22/18 07:00 MCHC 32.1 g/dl (32.0-35.9) 10/22/18 07:00 RDW 20.2 % (11.9-15.9) H 10/22/18 07:00 Plt Count 161 K/MM3 (134-434) 10/22/18 07:00 MPV 9.2 fl (7.5-11.1) 10/22/18 07:00 Absolute Neuts (auto) 8.5 K/mm3 (1.5-8.0) H 10/22/18 07:00 Neutrophils % 86.9 % (42.8-82.8) H 10/22/18 07:00 Lymphocytes % 5.3 % (8-40) L 10/22/18 07:00 Monocytes % 7.5 % (3.8-10.2) 10/22/18 07:00 Eosinophils % 0.1 % (0-4.5) 10/22/18 07:00 Basophils % 0.2 % (0-2.0) 10/22/18 07:00 Nucleated RBC % 0 % (0-0) 10/22/18 07:00 Hypochromia 1+ 10/21/18 17:41 Platelet Estimate Adequate 10/21/18 17:41 Polychromasia 1+ 10/21/18 17:41 Macrocytosis 2+ 10/21/18 17:41 Tear Drop Cells 1+ 10/21/18 17:41 Sodium 139 mmol/L (136-145) 10/22/18 07:30 Potassium 3.5 mmol/L (3.5-5.1) 10/22/18 07:30 Chloride 99 mmol/L (98-107) 10/22/18 07:30 Carbon Dioxide 30 mmol/L (21-32) 10/22/18 07:30 Anion Gap 11 MMOL/L (8-16) 10/22/18 07:30 BUN 13.2 mg/dL (7-18) 10/22/18 07:30 Creatinine 1.1 mg/dL (0.55-1.3) 10/22/18 07:30 Est GFR (CKD-EPI)AfAm 76.78 10/22/18 07:30 Est GFR (CKD-EPI)NonAf 66.24 10/22/18 07:30 POC Glucometer 121 UNITS (80-120) 10/22/18 12:21 Random Glucose 118 mg/dL (74-106) H 10/22/18 07:30 Lactic Acid 1.1 mmol/L (0.4-2.0) 10/21/18 17:45 Calcium 8.0 mg/dL (8.5-10.1) L 10/22/18 07:30 Phosphorus 2.8 mg/dL (2.5-4.9) 10/22/18 07:30 Magnesium 2.3 mg/dL (1.8-2.4) 10/22/18 07:30 Total Bilirubin 1.3 mg/dL (0.2-1) H 10/22/18 07:30 AST 66 U/L (15-37) H 10/22/18 07:30 ALT 74 U/L (13-61) H 10/22/18 07:30 Alkaline Phosphatase 197 U/L (45-117) H 10/22/18 07:30 Creatine Kinase 107 U/L (26-308) 10/21/18 17:41 Troponin I < 0.02 ng/ml (0.00-0.05) 10/21/18 17:41 Total Protein 6.7 g/dl (6.4-8.2) 10/22/18 07:30 Albumin 2.6 g/dl (3.4-5.0) L 10/22/18 07:30 Lipase 341 U/L (73-393) 10/21/18 17:41 Current Medications Generic Name Dose Route Start Last Admin Trade Name Freq PRN Reason Stop Dose Admin Acetaminophen 325 mg 10/22/18 06:02 10/22/18 06:28 Tylenol - PO 325 mg QID PRN Administration PAIN Allopurinol 300 mg 10/22/18 10:00 10/22/18 09:58 Zyloprim - PO 300 mg DAILY JAMIE Administration Cyanocobalamin 2,500 mcg 10/22/18 10:00 10/22/18 09:57 Vitamin B12 - PO 2,500 mcg DAILY JAMIE Administration Gabapentin 400 mg 10/22/18 10:00 10/22/18 09:58 Neurontin - PO 400 mg BID JAMIE Administration Heparin Sodium (Porcine) 5,000 unit 10/22/18 10:00 10/22/18 09:51 Heparin - SQ 5,000 unit BID JAMIE Administration Dextrose/Sodium Chloride 20 meq in 1,000 mls @ 83 mls/hr 10/22/18 09:45 Dextrose 5%-Normal Saline+20 Meq Kcl - IV ASDIR JAMIE Insulin Aspart 1 vial 10/22/18 11:00 10/22/18 12:23 Novolog Vial Sliding Scale - SQ Not Given ACHS [facility] Protocol Metoprolol Tartrate 12.5 mg 10/22/18 10:00 10/22/18 09:58 Lopressor - PO 12.5 mg BID JAMIE Administration Morphine Sulfate 2 mg 10/22/18 06:00 Morphine Sulfate IVPUSH Q4H PRN PAIN LEVEL 6-10 Multi-Ingredient Ointment 1 applic 10/22/18 10:00 10/22/18 09:59 Zinc Oxide TP 1 applic DAILY JAMIE Administration Nystatin 1 applic 10/22/18 10:00 10/22/18 09:59 Mycostatin Cream - TP 1 applic DAILY JAMIE Administration Ondansetron HCl 4 mg 10/22/18 06:01 Zofran Injection IVPUSH Q8H PRN NAUSEA AND/OR VOMITING Pantoprazole Sodium 20 mg 10/22/18 10:00 10/22/18 09:57 Protonix - PO 20 mg DAILY JAMIE Administration Constitutional: Yes: Anxious Eyes: Yes: Conjunctiva Clear HENT: Yes: Atraumatic Neck: Yes: Supple Cardiovascular: Yes: Regular Rate and Rhythm Respiratory: Yes: CTA Bilaterally Gastrointestinal Inspection: Yes: Scars (healed PRG fistula and laparoscopic incisions) ...Auscultate: Yes: Hypoactive Bowel Sounds ...Palpate: Yes: Tenderness (periumbilically but no peritoneal signs) ...Rectal Exam: Yes: Deferred Labs: CBC, BMP 10/22/18 07:00 07/06/19 07:30 Imaging - Results Cat Scan: Image Reviewed (no obstruction seen, large necrotic liver metastasis in the right lobe) Problem List - Problems (1) Vomiting, persistent, in adult Assessment/Plan: Given the failure to respond to IVIG I suspect that Michael's current problem reflects an [place]'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 I suspect that his cough reflects microaspirations associated with this. I will empirically try Reglan IVPB. He may also have a component of diabetic autonomic neuropathy causing gastroparesis. Given these concerns I have told Michael that if he accepts a feeding tube that it would best be a surgically implanted feeding jejunostomy tube as a gastrostomy may lead to more voluminous vomiting and aspiration Code(s): R11.10 - VOMITING, UNSPECIFIED (2) Colon cancer metastasized to liver Code(s): C18.9 - MALIGNANT NEOPLASM OF COLON, UNSPECIFIED; C78.7 - SECONDARY MALIG NEOPLASM OF LIVER AND INTRAHEPATIC BILE DUCT (3) Schatzki's ring of distal esophagus Code(s): K22.2 - ESOPHAGEAL OBSTRUCTION (4) Fatty liver Code(s): K76.0 - FATTY (CHANGE OF) LIVER, NOT ELSEWHERE CLASSIFIED (5) Gout Code(s): M10.9 - GOUT, UNSPECIFIED (6) Paroxysmal atrial fibrillation Code(s): I48.0 - PAROXYSMAL ATRIAL FIBRILLATION (7) Family history of malignant neoplasm of colon in first degree relative diagnosed when younger than 60 years of age Code(s): Z80.0 - FAMILY HISTORY OF MALIGNANT NEOPLASM OF DIGESTIVE ORGANS (8) H/O gastrostomy Code(s): Z93.4 - OTHER ARTIFICIAL OPENINGS OF GASTROINTESTINAL TRACT STATUS (9) Hiatal hernia with gastroesophageal reflux disease and esophagitis Code(s): K44.9 - DIAPHRAGMATIC HERNIA WITHOUT OBSTRUCTION OR GANGRENE; K21.0 - GASTRO-ESOPHAGEAL REFLUX DISEASE WITH ESOPHAGITIS (10) Failure to thrive Code(s): IBP1519 - Qualifiers: Failure to thrive age range: in adult Qualified Code(s): R62.7 - Adult failure to thrive (11) CIDP (chronic inflammatory demyelinating polyneuropathy) Code(s): G61.81 - CHRONIC INFLAMMATORY DEMYELINATING POLYNEURITIS (12) Diabetes mellitus Code(s): E11.9 - TYPE 2 DIABETES MELLITUS WITHOUT COMPLICATIONS Qualifiers: Diabetes mellitus type: type 2 Diabetes mellitus alf insulin use: without alf use Diabetes mellitus complication status: without complication Qualified Code(s): E11.9 - Type 2 diabetes mellitus without complications (13) MRSA (methicillin resistant staph aureus) culture positive Code(s): Z22.322 - CARRIER OR SUSPECTED CARRIER OF METHICILLIN RESIS STAPH (14) Multiple myeloma Code(s): C90.00 - MULTIPLE MYELOMA NOT HAVING ACHIEVED REMISSION Qualifiers: Multiple myeloma remission status: unspecified Qualified Code(s): C90.00 - Multiple myeloma not having achieved remission (15) Neutropenic sepsis Code(s): A41.9 - SEPSIS, UNSPECIFIED ORGANISM; D70.9 - NEUTROPENIA, UNSPECIFIED Assessment/Plan Impression: - Given the failure to respond to IVIG I suspect that Michael's current problem reflects an [place]'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 I suspect that his cough reflects microaspirations associated with this. He may also have a component of diabetic autonomic neuropathy causing gastroparesis. - Suspect tumor recurrence related abdominal pain - Advanced colon cancer with large right liver lobe metastasis that appears to be necrotic. If fever ensues he will need this area sampled to exclude an abscess Plan: -- I will empirically try Reglan IVPB. -- Given these concerns I have told Michael that if he accepts a feeding tube that it would best be a surgically implanted feeding jejunostomy tube as a gastrostomy may lead to more voluminous vomiting and aspiration -- Liver mass aspiration if fever or any signs of sepsis ensue
[2018-10-22] MEDS: D5-NS + 20 MEQ KCL - 20 MEQ/1,000 ML INFUS.BAG IV SCH (17:54)
[2018-10-22] MEDS: METOCLOPRAMIDE HCL INJECTION 10 MG/2 ML VIAL IVPUSH SCH (17:54)
--- NOTE | 2018-10-22 21:43 | CONSULT ---
Consult Consult Specialty:: Onc Referred by:: Dr. Epstein Reason for Consultation:: Colon ca - History of Present Illness Chief Complaint: Abdominal pain History of Present Illness: 72M with AF on Eliquis, 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 lobe of liver metastasis (unresectable at this point due to fatty liver) started FOLFIRI 09/06/18,. Pt was admitted on 09/12- with MRSA in blood/urine cultures thought to be 2/2 port (removed), Completed course of Daptomycin. Also had C. diff s/p PO vanco. Received IVIG for dysphagia, which improved. Now admitted with diffuse abdominal pain, nausea and vomiting x for 3 days. Denies fever, melena, hematochezia. Has had very little PO intake. CTAP with large complex mass in right hepatic lobe, highly suspicious for malignancy, with multiple central air pockets that may be iatrogenic and less likely to be gas forming infection. 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), GERD, Other (Schatzki ring dilated 04/30/17) Hepatobiliary: Yes: Other (colon cancer metastases, fatty liver) Infectious Disease: Yes: C-Diff, MRSA (CVP port) Psych: Yes: Addictions (recovering alcoholic since 1982), Depression Musculoskeletal: Yes: Chronic low back pain, Osteoarthritis, Other (h/o steroid induced myositis) Rheumatology: Yes: Gout Endocrine: Yes: Diabetes Mellitus Additional Medical History: glaucoma with decreased vision and need for surgeryleft eye - Past Surgical History Past Surgical History: Yes: Arthrosocopy (left knee), Cataract Removal ( bilateral), Colectomy (extended right hemicolectomy for transverse colon cancer with umbilical hernia repair& MARY ANNE 12/06/17- Dr Ribeiro ), Colonoscopy, Hernia Repair (umbilical hernia repair with right hemicolectomy), Tonsillectomy, Upper Endoscopy Additional Surgical History: 05/06 PEG insertion, removed 7/18 - Alcohol/Substance Use Hx Alcohol Use: Yes (recovering alcoholic since 1982) History of Substance Use: reports: None - Smoking History Smoking history: Former smoker Have you smoked in the past 12 months: No If you are a former smoker, when did you quit?: 1975 - Social History Usual Living Arrangement: Intermediate (Currently residing in 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 History of Recent Travel: No Home Medications - Allergies Allergies/Adverse Reactions: Allergies Allergy/AdvReac Type Severity Reaction Status Date / Time No Known Allergies Allergy Verified 10/21/18 15:16 - Home Medications Home Medications: Ambulatory Orders Gabapentin 400 mg PO BID 10/04/16 Allopurinol 300 mg PO DAILY 10/21/17 Cyanocobalamin (Vitamin B-12) [Vitamin B12] 2,500 mcg PO DAILY 10/21/17 Oxycodone HCl [Oxycontin] 10 mg PO PRN PRN 10/21/17 Furosemide 40 mg PO DAILY 06/22/18 oxyCODONE HCL [Roxicodone -] 10 mg PO Q4H PRN #30 tablet MDD 4 10/11/18 Metoprolol Tartrate 12.5 mg PO BID #60 tablet 10/13/18 Acetaminophen 325 mg PO QID PRN 10/21/18 Nystatin 1 each MC DAILY 10/21/18 Omeprazole 20 mg PO DAILY 10/21/18 Zinc Oxide 20% Topical Oint 454 gm NR DAILY 10/21/18 Family Disease History - Family Disease History Family Disease History: Other: Father (: 68: lung Ca), Mother (: 60's: myeloid leukemia ), Brother (1, : 65: colon cancer), Son (1, healthy), Daughter (1 with SLE) Physical Exam Vital Signs: Vital Signs Temperature 98.5 F 10/22/18 16:50 Pulse Rate 103 H 10/22/18 16:50 Respiratory Rate 20 10/22/18 16:50 Blood Pressure 106/58 L 10/22/18 16:50 O2 Sat by Pulse Oximetry (%) 92 L 10/22/18 05:25 Constitutional: Yes: No Distress, Calm Eyes: Yes: Conjunctiva Clear Cardiovascular: Yes: Regular Rate and Rhythm Respiratory: Yes: Regular, CTA Bilaterally Gastrointestinal: Yes: Soft, Tenderness (throughout). No: Distention Edema: No Labs: CBC, BMP 10/22/18 07:00 10/22/18 07:30 Assessment/Plan 72M with colon cancer s/p right hemicolectomy with unresectable rt. lobe of liver metastasis s/p c1 FOLFIRI 09/06/18,c/b recent MRSA bacteremia and C. diff, now re-admitted with abdominal pain. Found to have increase in size of right hepatic mass that is now complex and contains multiple air pockets. Pt had liver biopsy in 06/2018. Afebrile. Appreciate GI evaluation -- trial of reglan. Pt offered jejunostomy. Has not been able to receive further chemotherapy so far due to complications. Will continue to follow.
[2018-10-22] MEDS ORDERED: PT OWN MED DRAWER 7, Y5N ONE (22:37)
[2018-10-23] MEDS: METOCLOPRAMIDE HCL INJECTION 10 MG/2 ML VIAL IVPUSH SCH ×3 (00:23→17:30)
[2018-10-23] MEDS: INSULIN SLIDING SCALE (NOVOLOG) 1 VIAL SQ SCH ×4 (06:10→21:47)
--- NOTE | 2018-10-23 09:43 | PN ---
Progress Note (short form) - Note Progress Note: attempted ice tea- nothing else Vital Signs - 24 hr 10/22/18 10/22/18 10/22/18 14:39 16:50 20:00 Temperature 99.1 F 98.5 F 98 F Pulse Rate 101 H 103 H 100 H Respiratory 18 20 18 Rate Blood Pressure 107/65 106/58 L 116/68 10/23/18 10/23/18 02:00 06:00 Temperature 97.6 F 99.6 F Pulse Rate 97 H 102 H Respiratory 18 20 Rate Blood Pressure 98/70 104/60 Current Medications Generic Name Dose Route Start Last Admin Trade Name Freq PRN Reason Stop Dose Admin Acetaminophen 325 mg 10/22/18 06:02 10/22/18 06:28 Tylenol - PO 325 mg QID PRN Administration PAIN Allopurinol 300 mg 10/22/18 10:00 10/22/18 09:58 Zyloprim - PO 300 mg DAILY JAMIE Administration Cyanocobalamin 2,500 mcg 10/22/18 10:00 10/22/18 09:57 Vitamin B12 - PO 2,500 mcg DAILY JAMIE Administration Gabapentin 400 mg 10/22/18 10:00 10/22/18 21:48 Neurontin - PO 400 mg BID JAMIE Administration Heparin Sodium (Porcine) 5,000 unit 10/22/18 10:00 10/22/18 21:45 Heparin - SQ 5,000 unit BID JAMIE Administration Dextrose/Sodium Chloride 20 meq in 1,000 mls @ 83 mls/hr 10/22/18 09:45 10/22 17:54 Dextrose 5%-Normal Saline+20 Meq Kcl - IV 83 mls/hr ASDIR JAMIE Administration Insulin Aspart 1 vial 10/22/18 11:00 10/23/18 06:10 Novolog Vial Sliding Scale - SQ Not Given ACHS [facility] Protocol Metoclopramide HCl 10 mg 10/22/18 16:30 10/23/18 00:23 Reglan Injection - IVPUSH 10 mg Q8H JAMIE Administration Metoprolol Tartrate 12.5 mg 10/22/18 10:00 10/22/18 21:45 Lopressor - PO 12.5 mg BID JAMIE Administration Morphine Sulfate 2 mg 10/22/18 06:00 Morphine Sulfate IVPUSH Q4H PRN PAIN LEVEL 6-10 Multi-Ingredient Ointment 1 applic 10/22/18 10:00 10/22/18 09:59 Zinc Oxide TP 1 applic DAILY JAMIE Administration Nystatin 1 applic 10/22/18 10:00 10/22/18 09:59 Mycostatin Cream - TP 1 applic DAILY JAMIE Administration Ondansetron HCl 4 mg 10/22/18 06:01 Zofran Injection IVPUSH Q8H PRN NAUSEA AND/OR VOMITING Pantoprazole Sodium 20 mg 10/22/18 10:00 10/22/18 09:57 Protonix - PO 20 mg DAILY JAMIE Administration Laboratory Results - last 24 hr 10/22/18 10/22/18 10/22/18 12:21 17:34 21:41 POC Glucometer 121 113 101 10/23/18 05:43 POC Glucometer 111 S1 S2 RRR Lungs decreased Abd- soft, tender all areas No edema PLAN will need J tube placement No iv line-- unable to get peripheral -- will need triple lumen spoke with GI Surgical eval palliative care Problem List - Problems (1) Severe malnutrition Code(s): E43 - UNSPECIFIED SEVERE PROTEIN-CALORIE MALNUTRITION (2) Colon cancer metastasized to liver Code(s): C18.9 - MALIGNANT NEOPLASM OF COLON, UNSPECIFIED; C78.7 - SECONDARY MALIG NEOPLASM OF LIVER AND INTRAHEPATIC BILE DUCT (3) Failure to thrive Code(s): [id number] - Qualifiers: Failure to thrive age range: in adult Qualified Code(s): R62.7 - Adult failure to thrive (4) HTN (hypertension) Code(s): I10 - ESSENTIAL (PRIMARY) HYPERTENSION Qualifiers: Hypertension type: unspecified Qualified Code(s): I10 - Essential (primary ) hypertension
[2018-10-23] MEDS: HEPARIN NA (PORCINE) 5,000 UNITS/ML 1ML VIAL SQ SCH (10:37)
[2018-10-23] MEDS: GABAPENTIN 400 MG CAPSULE (FP) PO SCH ×2 (10:37→21:38)
[2018-10-23] MEDS: ALLOPURINOL 300 MG TABLET (FP) PO SCH (10:38)
[2018-10-23] MEDS: CYANOCOBALAMIN 1,000 MCG TABLET (FP) PO SCH (10:39)
[2018-10-23] MEDS: D5-NS + 20 MEQ KCL - 20 MEQ/1,000 ML INFUS.BAG IV SCH (10:39)
[2018-10-23] MEDS: METOPROLOL TARTRATE 25 MG TABLET (FP) PO SCH ×2 (10:39→21:38)
[2018-10-23] MEDS: PANTOPRAZOLE 20 MG TABLET (FP) PO SCH (10:39)
--- NOTE | 2018-10-23 12:08 | PN ---
Progress Note, Physician History of Present Illness: Continues to have abdominal pain, one loose BM today. Tolerating liquids. - Current Medication List Current Medications: Active Medications Acetaminophen (Tylenol -) 325 mg PO QID PRN PRN Reason: PAIN Last Admin: 10/22/18 06:28 Dose: 325 mg Allopurinol (Zyloprim -) 300 mg PO DAILY [facility] Last Admin: 10/23/18 10:38 Dose: 300 mg Cyanocobalamin (Vitamin B12 -) 2,500 mcg PO DAILY [facility] Last Admin: 10/23/18 10:39 Dose: 2,500 mcg Gabapentin (Neurontin -) 400 mg PO BID [facility] Last Admin: 10/23/18 10:37 Dose: 400 mg Heparin Sodium (Porcine) (Heparin -) 5,000 unit SQ BID [facility] Last Admin: 10/23/18 10:37 Dose: 5,000 unit Dextrose/Sodium Chloride (Dextrose 5%-Normal Saline+20 Meq Kcl -) 20 meq in 1, 000 mls @ 83 mls/hr IV ASDIR [facility] Last Admin: 10/23/18 10:39 Dose: Not Given Insulin Aspart (Novolog Vial Sliding Scale -) 1 vial SQ [facility]; Protocol Last Admin: 10/23/18 06:10 Dose: Not Given Metoclopramide HCl (Reglan Injection -) 10 mg IVPUSH Q8H [facility] Last Admin: 10/23/18 10:37 Dose: 10 mg Metoprolol Tartrate (Lopressor -) 12.5 mg PO BID [facility] Last Admin: 10/23/18 10:39 Dose: 12.5 mg Morphine Sulfate (Morphine Sulfate) 2 mg IVPUSH Q4H PRN PRN Reason: PAIN LEVEL 6-10 Multi-Ingredient Ointment (Zinc Oxide) 1 applic TP DAILY [facility] Last Admin: 10/22/18 09:59 Dose: 1 applic Nystatin (Mycostatin Cream -) 1 applic TP DAILY [facility] Last Admin: 10/22/18 09:59 Dose: 1 applic Ondansetron HCl (Zofran Injection) 4 mg IVPUSH Q8H PRN PRN Reason: NAUSEA AND/OR VOMITING Pantoprazole Sodium (Protonix -) 20 mg PO DAILY [facility] Last Admin: 10/23/18 10:39 Dose: 20 mg - Objective Vital Signs: Vital Signs Temperature 99.6 F 10/23/18 06:00 Pulse Rate 102 H 10/23/18 06:00 Respiratory Rate 20 10/23/18 06:00 Blood Pressure 104/60 10/23/18 06:00 O2 Sat by Pulse Oximetry (%) 92 L 10/22/18 05:25 Constitutional: Yes: No Distress Eyes: Yes: Conjunctiva Clear Cardiovascular: Yes: Regular Rate and Rhythm Respiratory: Yes: Regular, CTA Bilaterally Gastrointestinal: Yes: Soft, Tenderness (diffuse, mild). No: Distention Edema: No Labs: CBC, BMP 10/22/18 07:00 10/22/18 07:30 Assessment/Plan 72M with colon cancer s/p right hemicolectomy with unresectable rt. lobe of liver metastasis s/p c1 FOLFIRI 09/06/18,c/b recent MRSA bacteremia and C. diff, now re-admitted with abdominal pain. Found to have increase in size of right hepatic mass that is now complex and contains multiple air pockets. Pt had liver biopsy in 06/2018. Afebrile. Appreciate GI evaluation -- trial of reglan. Pt offered jejunostomy. Has not been able to receive further chemotherapy so far due to complications. Will continue to follow.
[2018-10-23] MEDS: ZINC OXIDE 20% TOPICAL OINTMENT 30 GM TUBE TP SCH (12:28)
[2018-10-23] MEDS: NYSTATIN 100,000 UNIT/GM TOPICAL CREAM 15 GM TUBE TP SCH (12:28)
--- NOTE | 2018-10-23 13:38 | EKG ---
Test Reason : Blood Pressure : / mmHG Vent. Rate : 104 BPM Atrial Rate : 104 BPM P-R Int : 142 ms QRS Dur : 094 ms QT Int : 364 ms P-R-T Axes : 050 001 049 degrees QTc Int : 478 ms SINUS TACHYCARDIA OTHERWISE NORMAL ECG WHEN COMPARED WITH ECG OF 12-SEP-2018 08:31, NO SIGNIFICANT CHANGE WAS FOUND Confirmed by MD WONG MOYSES ([id number]) on 10/23/2018 1:38:09 PM Referred By: Confirmed By:URIEL WONG MD
--- NOTE | 2018-10-23 15:26 | PN.GI ---
GI Progress Note Subjective: GI NOte: Tolerated some jello and pepsi today. I again discussed the pros and cons of a G tube vs a J tube with Michael and his including aspiration risk with gastrostomy feedings. After answering all of their questions he has opted to have the IR place G tube. 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 I suspect that his cough reflects microaspirations associated with this. He may also have a component of diabetic autonomic neuropathy causing gastroparesis. Michael has opted for IR placed G tube - Suspect tumor recurrence related abdominal pain - Advanced colon cancer with large right liver lobe metastasis that appears to be necrotic. If fever ensues he will need this area sampled to exclude an abscess Plan: -- Continue Reglan IVPB. -- Michael has opted for IR placement of G tube despite my best efforts to convince him for a feeding jejunostomy tube. Will order IR placement and an INR -- Liver mass aspiration if fever or any signs of sepsis ensue Problem List - Problems (1) Vomiting, persistent, in adult Code(s): R11.10 - VOMITING, UNSPECIFIED (2) Colon cancer metastasized to liver Code(s): C18.9 - MALIGNANT NEOPLASM OF COLON, UNSPECIFIED; C78.7 - SECONDARY MALIG NEOPLASM OF LIVER AND INTRAHEPATIC BILE DUCT (3) Schatzki's ring of distal esophagus Code(s): K22.2 - ESOPHAGEAL OBSTRUCTION (4) Fatty liver Code(s): K76.0 - FATTY (CHANGE OF) LIVER, NOT ELSEWHERE CLASSIFIED (5) Gout Code(s): M10.9 - GOUT, UNSPECIFIED (6) Paroxysmal atrial fibrillation Code(s): I48.0 - PAROXYSMAL ATRIAL FIBRILLATION (7) Family history of malignant neoplasm of colon in first degree relative diagnosed when younger than 60 years of age Code(s): Z80.0 - FAMILY HISTORY OF MALIGNANT NEOPLASM OF DIGESTIVE ORGANS (8) H/O gastrostomy Code(s): Z93.4 - OTHER ARTIFICIAL OPENINGS OF GASTROINTESTINAL TRACT STATUS (9) Hiatal hernia with gastroesophageal reflux disease and esophagitis Code(s): K44.9 - DIAPHRAGMATIC HERNIA WITHOUT OBSTRUCTION OR GANGRENE; K21.0 - GASTRO-ESOPHAGEAL REFLUX DISEASE WITH ESOPHAGITIS (10) Failure to thrive Code(s): [id number] - Qualifiers: Failure to thrive age range: in adult Qualified Code(s): R62.7 - Adult failure to thrive (11) CIDP (chronic inflammatory demyelinating polyneuropathy) Code(s): G61.81 - CHRONIC INFLAMMATORY DEMYELINATING POLYNEURITIS (12) Diabetes mellitus Code(s): E11.9 - TYPE 2 DIABETES MELLITUS WITHOUT COMPLICATIONS Qualifiers: Diabetes mellitus type: type 2 Diabetes mellitus intermediate project manager insulin use: without intermediate project manager use Diabetes mellitus complication status: without complication Qualified Code(s): E11.9 - Type 2 diabetes mellitus without complications (13) MRSA (methicillin resistant staph aureus) culture positive Code(s): Z22.322 - CARRIER OR SUSPECTED CARRIER OF METHICILLIN RESIS STAPH (14) Multiple myeloma Code(s): C90.00 - MULTIPLE MYELOMA NOT HAVING ACHIEVED REMISSION Qualifiers: Multiple myeloma remission status: unspecified Qualified Code(s): C90.00 - Multiple myeloma not having achieved remission (15) Neutropenic sepsis Code(s): A41.9 - SEPSIS, UNSPECIFIED ORGANISM; D70.9 - NEUTROPENIA, UNSPECIFIED
[2018-10-23] MEDS ORDERED: VANCOMYCIN 1 GRAM (PRE-DOCKED) 1,000 MG/250 ML BAG IVPB ONE (20:00)
[2018-10-23] MEDS ORDERED: PIPERACILLIN/TAZOB 3.375 GM 3.375 GM in DEXTROSE 5%-WATER - 50 ML IVPB ONE (20:00)
[2018-10-23] MEDS ORDERED: PIPERACILLIN/TAZOBACTAM 3.375 GM VIAL IVPB ONE (21:24)
[2018-10-23] MEDS ORDERED: DEXTROSE 5%-WATER - 100 ML IVPB ONE (21:24)
[2018-10-23] MEDS ORDERED: PT OWN MED DRAWER 7, Y5N ONE (21:51)
[2018-10-23 21:52] LABS: BASO % 0.6 % (0-2.0); EOS % 0.6 % (0-4.5); HEMATOCRIT 31.5 % (35.4-49); HEMOGLOBIN 10.1 GM/dL (11.7-16.9); MCH 29.6 pg (25.7-33.7); MCHC 32.2 g/dl (32.0-35.9); MEAN PLT VOLUME 8.4 fl (7.5-11.1); MONO % 8.6 % (3.8-10.2); NEUT % 78.2 % (42.8-82.8); PLATELET COUNT 133 K/MM3 (134-434); RBC 3.42 M/mm3 (4.00-5.60); RDW 19.7 % (11.9-15.9); WHITE BLOOD COUNT 6.9 K/mm3 (4.0-10.0)
[2018-10-23 22:26] LABS: BLOOD UREA NITROGEN 10.2 mg/dL (7-18); CALCIUM 7.9 mg/dL (8.5-10.1); POTASSIUM 3.2 mmol/L (3.5-5.1)
[2018-10-24] MEDS: D5-NS + 20 MEQ KCL - 20 MEQ/1,000 ML INFUS.BAG IV SCH ×3 (00:51→13:04)
[2018-10-24] MEDS: METOCLOPRAMIDE HCL INJECTION 10 MG/2 ML VIAL IVPUSH SCH ×3 (00:52→17:10)
[2018-10-24] MEDS ORDERED: PT OWN MED DRAWER 7, Y5N ONE ×5 (01:19→20:40)
[2018-10-24 04:17] LABS: PH,URINE 7.5 (5.0-8.0); URINE APPEARANCE CLEAR; URINE BILIRUBIN NEGATIVE (NEGATIVE); URINE COLOR YELLOW; URINE GLUCOSE (UA) NEGATIVE (NEGATIVE); URINE KETONE NEGATIVE (NEGATIVE); URINE LEUK ESTERASE NEGATIVE (NEGATIVE); URINE NITRITE NEGATIVE (NEGATIVE); URINE PROTEIN TRACE (NEGATIVE)
[2018-10-24] MEDS: INSULIN SLIDING SCALE (NOVOLOG) 1 VIAL SQ SCH ×4 (06:22→21:34)
[2018-10-24 07:16] LABS: ALBUMIN 2.2 g/dl (3.4-5.0); BILIRUBIN,TOTAL 0.9 mg/dL (0.2-1); BLOOD UREA NITROGEN 8.7 mg/dL (7-18); CALCIUM 7.6 mg/dL (8.5-10.1); CREATININE 1.1 mg/dL (0.55-1.3); POTASSIUM 3.2 mmol/L (3.5-5.1); TOT PROT 5.8 g/dl (6.4-8.2)
[2018-10-24 07:18] LABS: BASO % 0.5 % (0-2.0); EOS % 0.8 % (0-4.5); HEMATOCRIT 32.8 % (35.4-49); HEMOGLOBIN 10.4 GM/dL (11.7-16.9); LYMPH % 7.9 % (8-40); MCH 29.5 pg (25.7-33.7); MCHC 31.6 g/dl (32.0-35.9); MEAN CELL VOLUME 93.5 fl (80-96); MEAN PLT VOLUME 8.3 fl (7.5-11.1); MONO % 9.2 % (3.8-10.2); NEUT % 81.6 % (42.8-82.8); PLATELET COUNT 123 K/MM3 (134-434); RBC 3.51 M/mm3 (4.00-5.60); RDW 20.1 % (11.9-15.9); WHITE BLOOD COUNT 6.3 K/mm3 (4.0-10.0)
[2018-10-24 07:53] LABS: INR 1.13 (0.83-1.09); PROTHROMBIN TIME (PATIENT) 13.4 SEC (9.7-13.0)
[2018-10-24] MEDS: CYANOCOBALAMIN 1,000 MCG TABLET (FP) PO SCH (10:29)
[2018-10-24] MEDS: ALLOPURINOL 300 MG TABLET (FP) PO SCH (10:29)
[2018-10-24] MEDS: METOPROLOL TARTRATE 25 MG TABLET (FP) PO SCH ×2 (10:29→21:27)
[2018-10-24] MEDS: PANTOPRAZOLE 20 MG TABLET (FP) PO SCH (10:29)
[2018-10-24] MEDS: GABAPENTIN 400 MG CAPSULE (FP) PO SCH ×2 (10:29→21:27)
[2018-10-24] MEDS: ZINC OXIDE 20% TOPICAL OINTMENT 30 GM TUBE TP SCH (10:31)
[2018-10-24] MEDS: NYSTATIN 100,000 UNIT/GM TOPICAL CREAM 15 GM TUBE TP SCH (10:31)
[2018-10-24] MEDS: DAPTOMYCIN 700 MG in SODIUM CHLORIDE 50 ML IVPB SCH (14:34)
--- NOTE | 2018-10-24 15:11 | PN ---
Progress Note (short form) - Note Progress Note: pt seen/ examined chart reviewed awake/ comfortable G tube postponed for tomorrow but now with +ve blood cultures Discussed with i/d -- will have to hold g tube for now. Vital Signs Temp 98.1 F 10/24/18 08:45 Pulse 99 H 10/24/18 08:45 Resp 20 10/24/18 08:45 BP 105/66 10/24/18 08:45 Pulse Ox 92 L 10/22/18 05:25 Intake & Output 10/23/18 10/24/18 10/24/18 23:59 11:59 23:59 Intake Total 1566 581 Output Total 100 500 100 Balance 1466 81 -100 Weight 187 lb Intake: IV 716 581 DEXTROSE 5%-NORMAL SALINE 716 581 +20 MEQ KCL - 20 meq In 1 ,000 ml @ 83 mls/hr IV ASDIR JAMIE Rx#:[id number] IVPB 400 Oral 450 Output: Urine 100 500 100 Void 100 500 100 Other: Voiding Method Incontinent Urinal Urinal # Unmeasured Voids Void 2 1 Bowel Movement Yes: 1 No No # Bowel Movements 2 Height 5 ft 9 in Body Mass Index (BMI) 27.6 Active Medications Acetaminophen (Tylenol -) 325 mg PO QID PRN PRN Reason: PAIN Last Admin: 10/22/18 06:28 Dose: 325 mg Allopurinol (Zyloprim -) 300 mg PO DAILY [facility] Last Admin: 10/24/18 10:29 Dose: Not Given Cyanocobalamin (Vitamin B12 -) 2,500 mcg PO DAILY JAMIE Last Admin: 10/24/18 10:29 Dose: Not Given Gabapentin (Neurontin -) 400 mg PO BID JAMIE Last Admin: 10/24/18 10:29 Dose: Not Given Heparin Sodium (Porcine) (Heparin -) 5,000 unit SQ BID JAMIE Last Admin: 10/23/18 10:37 Dose: 5,000 unit Dextrose/Sodium Chloride (Dextrose 5%-Normal Saline+20 Meq Kcl -) 20 meq in 1, 000 mls @ 83 mls/hr IV ASDIR JAMIE Last Admin: 10/24/18 13:04 Dose: Not Given Daptomycin 700 mg/ Sodium (Chloride) 50 mls @ 50 mls/hr IVPB DAILY [facility]; Protocol Last Admin: 10/24/18 14:34 Dose: 50 mls/hr Ceftaroline Fosamil 600 mg/ (Dextrose) 100 mls @ 100 mls/hr IVPB Q8H-IV JAMIE; Protocol Potassium Chloride (Potassium Chloride 10 Meq Premix Ivpb -) 10 meq in 100 mls @ 100 mls/hr IVPB Q60M [facility] Stop: 10/24/18 18:14 Ibuprofen (Motrin -) 400 mg PO Q6H PRN PRN Reason: FEVER Insulin Aspart (Novolog Vial Sliding Scale -) 1 vial SQ ACHS [facility]; Protocol Last Admin: 10/24/18 11:45 Dose: 2 units Metoclopramide HCl (Reglan Injection -) 10 mg IVPUSH Q8H [facility] Last Admin: 10/24/18 09:12 Dose: 10 mg Metoprolol Tartrate (Lopressor -) 12.5 mg PO BID [facility] Last Admin: 10/24/18 10:29 Dose: Not Given Morphine Sulfate (Morphine Sulfate) 2 mg IVPUSH Q4H PRN PRN Reason: PAIN LEVEL 6-10 Multi-Ingredient Ointment (Zinc Oxide) 1 applic TP DAILY [facility] Last Admin: 10/24/18 10:31 Dose: 1 applic Nystatin (Mycostatin Cream -) 1 applic TP DAILY [facility] Last Admin: 10/24/18 10:31 Dose: 1 applic Ondansetron HCl (Zofran Injection) 4 mg IVPUSH Q8H PRN PRN Reason: NAUSEA AND/OR VOMITING Pantoprazole Sodium (Protonix -) 20 mg PO DAILY [facility] Last Admin: 10/24/18 10:29 Dose: Not Given CBC, BMP 10/24/18 05:33 10/24/18 05:33 Microbiology 10/23/18 20:15 Blood Culture - Preliminary Blood - Peripheral Venous Pending Organism 10/23/18 20:05 Blood Culture - Preliminary Blood - Peripheral Venous Pending Organism Physical Exam S1 S2 RRR Lungs decreased Abd- soft, No edema Neuro- Alert/ Awake. PLAN Discussed with pt/ RN and Dr. Isidro Sears f/u cultures Hold of [id number] for now- till cultures back supplement k. Will follow Problem List - Problems (1) Sepsis Code(s): A41.9 - SEPSIS, UNSPECIFIED ORGANISM (2) Atrial fibrillation Code(s): I48.91 - UNSPECIFIED ATRIAL FIBRILLATION Qualifiers: Atrial fibrillation type: unspecified Qualified Code(s): I48.91 - Unspecified atrial fibrillation (3) Colon cancer metastasized to liver Code(s): C18.9 - MALIGNANT NEOPLASM OF COLON, UNSPECIFIED; C78.7 - SECONDARY MALIG NEOPLASM OF LIVER AND INTRAHEPATIC BILE DUCT (4) Failure to thrive Code(s): [id number] - Qualifiers: Failure to thrive age range: in adult Qualified Code(s): R62.7 - Adult failure to thrive
--- NOTE | 2018-10-24 15:30 | PN ---
Progress Note (short form) - Note Progress Note: ID CONSULT DICTATED ? RECURRENT MRSA BACTEREMIA METASTATIC CA ? INFECTED LIVER METASTASIS/ ABSCESS DYSPHAGIA PENDING C/S EMPIRIC DAPTOMYCIN/ CEFTAROLINE
[2018-10-24] MEDS: CEFTAROLINE FOSAMIL ACETATE 600 MG in DEXTROSE 5%-WATER - 100 ML IVPB SCH ×2 (15:37→20:41)
[2018-10-24] MEDS: KCL 10 MEQ IVPB 10 MEQ/100 ML INFUS.BAG IVPB SCH ×3 (16:44→18:58)
--- NOTE | 2018-10-24 17:30 | CONS ---
INFECTIOUS DISEASE CONSULTATION DATE OF CONSULTATION: DATE OF DICTATION: 10/24/2018 HISTORY: The patient is a 73-year-old male with a history of metastatic colon cancer evaluated for fever. The patient was recently hospitalized at [facility] from September 12 to October 13, 2018. At that time, he had an infected port, which required removal. His course was complicated by MRSA bacteremia and sepsis. Despite treatment, he remained bacteremic for several days. He ultimately cleared the bacteremia after the port was removed, and he was treated with a course of daptomycin and ceftaroline. The patient completed a 4-week course of antistaphylococcal therapy. Post hospitalization, he was residing in a detention facility for rehabilitation. Over the past 2-3 days, he has had worsening abdominal pain associated with nausea, vomiting. He has been unable to tolerate even fluids or water. His hospital course has now been complicated by fever to 101.6. Blood cultures are positive gram-positive cocci in clusters in 2 bottles. He is awake and alert. He has no complaints of abdominal pain at the present time. He continues to have anorexia and inability to keep anything down. Patient received chemotherapy approximately 6-7 days prior to admission. PAST MEDICAL HISTORY: Positive for colon cancer status post hemicolectomy with known liver metastases, multiple myeloma, hypertension, atrial fibrillation, diabetes mellitus. ALLERGIES: No known allergies. MEDICATIONS: Include Tylenol, allopurinol, Neurontin, ibuprofen, Reglan, morphine sulfate, Protonix. SOCIAL HISTORY: Lives at home with his significant other. Recently in a rehabilitation center. No active tobacco or alcohol use. SYSTEMS REVIEW: Neurologic: No loss of consciousness, seizure activity, focal weakness. Cardiac: Negative chest pain or palpitations. Respiratory: Positive cough. No dyspnea. Gastrointestinal: As per HPI. Genitourinary: Negative for urinary tract infection. LABORATORY DATA: White count 6.3, hematocrit 32.8, platelet count 123, creatinine 1.1. Urinalysis negative. PHYSICAL EXAMINATION: General: He is awake. He is chronically ill-appearing in no acute distress. Vital Signs: Temperature 98.1, maximum temperature 101.6, blood pressure 105/66, pulse 20 regular, respirations 19 per minute. HEENT: Sclerae anicteric. Heart: Sounds S1, S2. Skin: Port site (now removed) well healed without evidence of infection. Abdomen: Soft, nontender. Extremities: Negative for edema. IMPRESSION: 1. Positive blood cultures, rule out recurrent Staphylococcal bacteremia. 2. Status post removal of infected port. 3. Metastatic carcinoma. 4. Thrombocytopenia. PLAN: Await identification of blood isolet source. If patient has recurrent bacteremia, source not clear. Patient has a large, necrotic-appearing mass in the liver, which may now be secondarily infected and may be the source of his recurrent bacteremia. Pending cultures, empiric antibiotic coverage with daptomycin 8 mg/kg IV piggyback daily, ceftaroline 600 mg IV piggyback every 8 hours. Further recommendations pending cultures. We will follow. Thank you for the kind referral. VENKAT RENEE M.D. [id number]
[2018-10-24] MEDS ORDERED: INSULIN (NOVOLOG) ASPART 100 UNITS/ML 10ML VIAL ONE (19:51)
[2018-10-24] MEDS: IBUPROFEN 400 MG TABLET (FP) PO PRN (21:27)
[2018-10-24] MEDS: ACETAMINOPHEN 325 MG TABLET (FP) PO PRN (23:09)
[2018-10-25] MEDS ORDERED: PT OWN MED DRAWER 7, Y5N ONE ×3 (00:47→17:38)
[2018-10-25] MEDS: METOCLOPRAMIDE HCL INJECTION 10 MG/2 ML VIAL IVPUSH SCH ×3 (01:01→16:34)
[2018-10-25] MEDS: CEFTAROLINE FOSAMIL ACETATE 600 MG in DEXTROSE 5%-WATER - 100 ML IVPB SCH ×3 (01:04→17:42)
[2018-10-25] MEDS: INSULIN SLIDING SCALE (NOVOLOG) 1 VIAL SQ SCH ×4 (06:04→22:35)
[2018-10-25] MEDS: METOPROLOL TARTRATE 25 MG TABLET (FP) PO SCH ×2 (10:01→22:18)
[2018-10-25] MEDS: GABAPENTIN 400 MG CAPSULE (FP) PO SCH ×2 (10:02→22:20)
[2018-10-25] MEDS: PANTOPRAZOLE 20 MG TABLET (FP) PO SCH (10:02)
[2018-10-25] MEDS: CYANOCOBALAMIN 1,000 MCG TABLET (FP) PO SCH (10:03)
[2018-10-25] MEDS: NYSTATIN 100,000 UNIT/GM TOPICAL CREAM 15 GM TUBE TP SCH (10:04)
[2018-10-25] MEDS: ALLOPURINOL 300 MG TABLET (FP) PO SCH (10:04)
[2018-10-25] MEDS: DAPTOMYCIN 700 MG in SODIUM CHLORIDE 50 ML IVPB SCH (10:04)
[2018-10-25] MEDS: ZINC OXIDE 20% TOPICAL OINTMENT 30 GM TUBE TP SCH (10:05)
--- NOTE | 2018-10-25 11:34 | PN ---
Progress Note (short form) - Note Progress Note: tried drinking liquids no vomiting decreased abd pain Vital Signs - 24 hr 10/24/18 10/24/18 10/25/18 16:30 22:00 06:31 Temperature 98.8 F 99.2 F 98.2 F Pulse Rate 100 H 106 H 82 Respiratory 18 20 20 Rate Blood Pressure 128/60 134/68 102/60 10/25/18 08:15 Temperature 97.3 F L Pulse Rate 82 Respiratory 20 Rate Blood Pressure 109/70 Current Medications Generic Name Dose Route Start Last Admin Trade Name Freq PRN Reason Stop Dose Admin Acetaminophen 325 mg 10/22/18 06:02 10/24/18 23:09 Tylenol - PO 325 mg QID PRN Administration PAIN Allopurinol 300 mg 10/22/18 10:00 10/25/18 10:04 Zyloprim - PO 300 mg DAILY JAMIE Administration Cyanocobalamin 2,500 mcg 10/22/18 10:00 10/25/18 10:03 Vitamin B12 - PO 2,500 mcg DAILY JAMIE Administration Gabapentin 400 mg 10/22/18 10:00 10/25/18 10:02 Neurontin - PO 400 mg BID JAMIE Administration Heparin Sodium (Porcine) 5,000 unit 10/22/18 10:00 10/23/18 10:37 Heparin - SQ 5,000 unit BID JAMIE Administration Dextrose/Sodium Chloride 20 meq in 1,000 mls @ 83 mls/hr 10/22/18 09:45 10/24 13:04 Dextrose 5%-Normal Saline+20 Meq Kcl - IV Not Given ASDIR JAMIE Daptomycin 700 mg/ Sodium 50 mls @ 50 mls/hr 10/24/18 13:45 10/25/18 10:04 Chloride IVPB 50 mls/hr DAILY JAMIE Administration Protocol Ceftaroline Fosamil 600 mg/ 100 mls @ 100 mls/hr 10/24/18 14:00 10/25/18 11: 21 Dextrose IVPB 100 mls/hr Q8H-IV JAMIE Administration Protocol Ibuprofen 400 mg 10/23/18 19:19 10/24/18 21:27 Motrin - PO 400 mg Q6H PRN Administration FEVER Insulin Aspart 1 vial 10/22/18 11:00 10/25/18 11:26 Novolog Vial Sliding Scale - SQ Not Given ACHS JAMIE Protocol Metoclopramide HCl 10 mg 10/22/18 16:30 10/25/18 08:40 Reglan Injection - IVPUSH 10 mg Q8H JAMIE Administration Metoprolol Tartrate 12.5 mg 10/22/18 10:00 10/25/18 10:01 Lopressor - PO 12.5 mg BID JAMIE Administration Multi-Ingredient Ointment 1 applic 10/22/18 10:00 10/25/18 10:05 Zinc Oxide TP 1 applic DAILY JAMIE Administration Nystatin 1 applic 10/22/18 10:00 10/25/18 10:04 Mycostatin Cream - TP 1 applic DAILY JAMIE Administration Ondansetron HCl 4 mg 10/22/18 06:01 Zofran Injection IVPUSH Q8H PRN NAUSEA AND/OR VOMITING Pantoprazole Sodium 20 mg 10/22/18 10:00 10/25/18 10:02 Protonix - PO 20 mg DAILY JAMIE Administration Laboratory Results - last 24 hr 10/24/18 10/24/18 10/24/18 11:42 16:49 21:31 POC Glucometer 154 145 176 10/25/18 10/25/18 05:46 11:25 POC Glucometer 135 134 [id number] Lungs decreased Abd- soft, tender all areas No edema PLAN blood cultures now positive may be due to liver abscess? iv antibiotics ID eval noted check labs prognosis guarded Problem List - Problems (1) Severe malnutrition Code(s): E43 - UNSPECIFIED SEVERE PROTEIN-CALORIE MALNUTRITION (2) Colon cancer metastasized to liver Code(s): C18.9 - MALIGNANT NEOPLASM OF COLON, UNSPECIFIED; C78.7 - SECONDARY MALIG NEOPLASM OF LIVER AND INTRAHEPATIC BILE DUCT (3) Failure to thrive Code(s): [id number] - Qualifiers: Failure to thrive age range: in adult Qualified Code(s): R62.7 - Adult failure to thrive (4) HTN (hypertension) Code(s): I10 - ESSENTIAL (PRIMARY) HYPERTENSION Qualifiers: Hypertension type: unspecified Qualified Code(s): I10 - Essential (primary ) hypertension (5) Sepsis Code(s): A41.9 - SEPSIS, UNSPECIFIED ORGANISM
--- NOTE | 2018-10-25 12:21 | PN ---
Progress Note, Physician History of Present Illness: AWAKE, ALERT REPORTS IMPROVED SWALLOWING NO C/O F/C BLOOD C/S PRESUMED MRSA - Current Medication List Current Medications: Active Medications Acetaminophen (Tylenol -) 325 mg PO QID PRN PRN Reason: PAIN Last Admin: 10/24/18 23:09 Dose: 325 mg Allopurinol (Zyloprim -) 300 mg PO DAILY [facility] Last Admin: 10/25/18 10:04 Dose: 300 mg Cyanocobalamin (Vitamin B12 -) 2,500 mcg PO DAILY [facility] Last Admin: 10/25/18 10:03 Dose: 2,500 mcg Gabapentin (Neurontin -) 400 mg PO BID JAMIE Last Admin: 10/25/18 10:02 Dose: 400 mg Heparin Sodium (Porcine) (Heparin -) 5,000 unit SQ BID JAMIE Last Admin: 10/23/18 10:37 Dose: 5,000 unit Dextrose/Sodium Chloride (Dextrose 5%-Normal Saline+20 Meq Kcl -) 20 meq in 1, 000 mls @ 83 mls/hr IV ASDIR [facility] Last Admin: 10/24/18 13:04 Dose: Not Given Daptomycin 700 mg/ Sodium (Chloride) 50 mls @ 50 mls/hr IVPB DAILY [facility]AMIE; Protocol Last Admin: 10/25/18 10:04 Dose: 50 mls/hr Ceftaroline Fosamil 600 mg/ (Dextrose) 100 mls @ 100 mls/hr IVPB Q8H-IV JAMIE; Protocol Last Admin: 10/25/18 11:21 Dose: 100 mls/hr Ibuprofen (Motrin -) 400 mg PO Q6H PRN PRN Reason: FEVER Last Admin: 10/24/18 21:27 Dose: 400 mg Insulin Aspart (Novolog Vial Sliding Scale -) 1 vial SQ ACHS [facility]; Protocol Last Admin: 10/25/18 11:26 Dose: Not Given Metoclopramide HCl (Reglan Injection -) 10 mg IVPUSH Q8H [facility] Last Admin: 10/25/18 08:40 Dose: 10 mg Metoprolol Tartrate (Lopressor -) 12.5 mg PO BID [facility] Last Admin: 10/25/18 10:01 Dose: 12.5 mg Multi-Ingredient Ointment (Zinc Oxide) 1 applic TP DAILY [facility] Last Admin: 10/25/18 10:05 Dose: 1 applic Nystatin (Mycostatin Cream -) 1 applic TP DAILY [facility] Last Admin: 10/25/18 10:04 Dose: 1 applic Ondansetron HCl (Zofran Injection) 4 mg IVPUSH Q8H PRN PRN Reason: NAUSEA AND/OR VOMITING Pantoprazole Sodium (Protonix -) 20 mg PO DAILY [facility] Last Admin: 10/25/18 10:02 Dose: 20 mg - Objective Vital Signs: Vital Signs Temperature 97.3 F L 10/25/18 08:15 Pulse Rate 82 10/25/18 08:15 Respiratory Rate 20 10/25/18 08:15 Blood Pressure 109/70 10/25/18 08:15 O2 Sat by Pulse Oximetry (%) 92 L 10/22/18 05:25 Constitutional: Yes: No Distress Eyes: Yes: Conjunctiva Clear Cardiovascular: Yes: Regular Rate and Rhythm, S1, S2 Respiratory: Yes: CTA Bilaterally, Kussmaul Gastrointestinal: Yes: Normal Bowel Sounds. No: Tenderness Labs: CBC, BMP 10/24/18 05:33 10/24/18 05:33 INR, PTT INR 1.13 (0.83-1.09) H 10/24/18 05:33 Assessment/Plan RECURRENT MRSA BACTEREMIA ? INFECTED HEPATIC MASS METASTATIC COLON CA REPEAT BC AM CONTINUE DAPTOMYCIN/ CEFTAROLINE REPEAT ECHO R/O VEGETATIONS
[2018-10-25] MEDS: D5-NS + 20 MEQ KCL - 20 MEQ/1,000 ML INFUS.BAG IV SCH ×2 (17:51)
--- NOTE | 2018-10-25 19:46 | PN.GI ---
GI Progress Note Subjective: GI NOte: G tube insertion postponed as has recurrent MRSA bacteremia. Interestingly he has expressed some interest in specific foods that do not require chewing: Mac n cheese, mashed potato, meat loaf with gravy. Does not want puree but agreeable to chopped diet. 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 I suspect that his cough reflects microaspirations associated with this. He may also have a component of diabetic autonomic neuropathy causing gastroparesis. Michael has opted for IR placed G tube - Suspect tumor recurrence related abdominal pain - Advanced colon cancer with large right liver lobe metastasis that appears to be necrotic. If fever ensues he will need this area sampled to exclude an abscess Plan: -- Trial of chopped diet] - Resume Glucerna -- Continue Reglan IVPB. -- IR placement of G tube deferred -- Liver mass aspiration if fever persists Problem List - Problems (1) Vomiting, persistent, in adult Code(s): R11.10 - VOMITING, UNSPECIFIED (2) Colon cancer metastasized to liver Code(s): C18.9 - MALIGNANT NEOPLASM OF COLON, UNSPECIFIED; C78.7 - SECONDARY MALIG NEOPLASM OF LIVER AND INTRAHEPATIC BILE DUCT (3) Schatzki's ring of distal esophagus Code(s): K22.2 - ESOPHAGEAL OBSTRUCTION (4) Fatty liver Code(s): K76.0 - FATTY (CHANGE OF) LIVER, NOT ELSEWHERE CLASSIFIED (5) Gout Code(s): M10.9 - GOUT, UNSPECIFIED (6) Paroxysmal atrial fibrillation Code(s): I48.0 - PAROXYSMAL ATRIAL FIBRILLATION (7) Family history of malignant neoplasm of colon in first degree relative diagnosed when younger than 60 years of age Code(s): Z80.0 - FAMILY HISTORY OF MALIGNANT NEOPLASM OF DIGESTIVE ORGANS (8) H/O gastrostomy Code(s): Z93.4 - OTHER ARTIFICIAL OPENINGS OF GASTROINTESTINAL TRACT STATUS (9) Hiatal hernia with gastroesophageal reflux disease and esophagitis Code(s): K44.9 - DIAPHRAGMATIC HERNIA WITHOUT OBSTRUCTION OR GANGRENE; K21.0 - GASTRO-ESOPHAGEAL REFLUX DISEASE WITH ESOPHAGITIS (10) Failure to thrive Code(s): [id number] - Qualifiers: Failure to thrive age range: in adult Qualified Code(s): R62.7 - Adult failure to thrive (11) CIDP (chronic inflammatory demyelinating polyneuropathy) Code(s): G61.81 - CHRONIC INFLAMMATORY DEMYELINATING POLYNEURITIS (12) Diabetes mellitus Code(s): E11.9 - TYPE 2 DIABETES MELLITUS WITHOUT COMPLICATIONS Qualifiers: Diabetes mellitus type: type 2 Diabetes mellitus intermodal truck driver insulin use: without intermodal truck driver use Diabetes mellitus complication status: without complication Qualified Code(s): E11.9 - Type 2 diabetes mellitus without complications (13) MRSA (methicillin resistant staph aureus) culture positive Code(s): Z22.322 - CARRIER OR SUSPECTED CARRIER OF METHICILLIN RESIS STAPH (14) Multiple myeloma Code(s): C90.00 - MULTIPLE MYELOMA NOT HAVING ACHIEVED REMISSION Qualifiers: Multiple myeloma remission status: unspecified Qualified Code(s): C90.00 - Multiple myeloma not having achieved remission (15) Neutropenic sepsis Code(s): A41.9 - SEPSIS, UNSPECIFIED ORGANISM; D70.9 - NEUTROPENIA, UNSPECIFIED
--- NOTE | 2018-10-25 20:01 | PN ---
Progress Note (short form) - Note Progress Note: Patient seen and examined Upper teeth have been lost at [facility] Unable to swallow or eat substantially Some RUQ pains Last Vital Signs Temp Pulse Resp BP Pulse Ox 97.7 F 84 18 120/70 92 L 10/25/18 16:30 10/25/18 16:30 10/25/18 16:30 10/25/18 16:30 10/22/18 05:25 HEENT left ptosis,anisocoria Oropharynx coated tongue Cor: RSR, No murmurs, No gallops Lungs: diminished breath sounds Abd: RUQ tenderness Ext:No significant edema Skin: No rashes, Integument intact CBC, BMP 10/24/18 05:33 10/24/18 05:33 Current Medications Generic Name Dose Route Start Last Admin Trade Name Freq PRN Reason Stop Dose Admin Acetaminophen 325 mg 10/22/18 06:02 10/24/18 23:09 Tylenol - PO 325 mg QID PRN Administration PAIN Allopurinol 300 mg 10/22/18 10:00 10/25/18 10:04 Zyloprim - PO 300 mg DAILY JAMIE Administration Cyanocobalamin 2,500 mcg 10/22/18 10:00 10/25/18 10:03 Vitamin B12 - PO 2,500 mcg DAILY JAMIE Administration Gabapentin 400 mg 10/22/18 10:00 10/25/18 10:02 Neurontin - PO 400 mg BID JAMIE Administration Heparin Sodium (Porcine) 5,000 unit 10/22/18 10:00 10/23/18 10:37 Heparin - SQ 5,000 unit BID JAMIE Administration Dextrose/Sodium Chloride 20 meq in 1,000 mls @ 83 mls/hr 10/22/18 09:45 10/25 17:51 Dextrose 5%-Normal Saline+20 Meq Kcl - IV 83 mls/hr ASDIR JAMIE Administration Daptomycin 700 mg/ Sodium 50 mls @ 50 mls/hr 10/24/18 13:45 10/25/18 10:04 Chloride IVPB 50 mls/hr DAILY JAMIE Administration Protocol Ceftaroline Fosamil 600 mg/ 100 mls @ 100 mls/hr 10/24/18 14:00 10/25/18 17: 42 Dextrose IVPB 100 mls/hr Q8H-IV JAMIE Administration Protocol Ibuprofen 400 mg 10/23/18 19:19 10/24/18 21:27 Motrin - PO 400 mg Q6H PRN Administration FEVER Insulin Aspart 1 vial 10/22/18 11:00 10/25/18 16:34 Novolog Vial Sliding Scale - SQ Not Given ACHS JAMIE Protocol Metoclopramide HCl 10 mg 10/22/18 16:30 10/25/18 16:34 Reglan Injection - IVPUSH 10 mg Q8H JAMIE Administration Metoprolol Tartrate 12.5 mg 10/22/18 10:00 10/25/18 10:01 Lopressor - PO 12.5 mg BID JAMIE Administration Multi-Ingredient Ointment 1 applic 10/22/18 10:00 10/25/18 10:05 Zinc Oxide TP 1 applic DAILY JAMIE Administration Nystatin 1 applic 10/22/18 10:00 10/25/18 10:04 Mycostatin Cream - TP 1 applic DAILY JAMIE Administration Ondansetron HCl 4 mg 10/22/18 06:01 Zofran Injection IVPUSH Q8H PRN NAUSEA AND/OR VOMITING Pantoprazole Sodium 20 mg 10/22/18 10:00 10/25/18 10:02 Protonix - PO 20 mg DAILY JAMIE Administration Imp: Hx of myeloma- s/p transplant Hx of colon ca-s/p liver ablation for mets \ s/p one cycle of FOLFIRI Port catheter infection Dysphagia Thrush Staph bacteremia DM Patient is s/p liver ablation for mets to liver - unclear if abnormal liver CT is reflection of ablation or infection To discuss with IR. Continuing with antibiotics per ID.
[2018-10-25] MEDS: IBUPROFEN 400 MG TABLET (FP) PO PRN (22:19)
[2018-10-25] MEDS: HEPARIN NA (PORCINE) 5,000 UNITS/ML 1ML VIAL SQ SCH (22:20)
[2018-10-26] MEDS: METOCLOPRAMIDE HCL INJECTION 10 MG/2 ML VIAL IVPUSH SCH ×3 (00:01→16:39)
[2018-10-26] MEDS ORDERED: PT OWN MED DRAWER 7, Y5N ONE ×4 (01:43→17:22)
[2018-10-26] MEDS: CEFTAROLINE FOSAMIL ACETATE 600 MG in DEXTROSE 5%-WATER - 100 ML IVPB SCH ×3 (02:01→17:26)
[2018-10-26 06:17] LABS: HEMATOCRIT 28.3 % (35.4-49); HEMOGLOBIN 9.1 GM/dL (11.7-16.9); MCH 29.6 pg (25.7-33.7); MCHC 32.1 g/dl (32.0-35.9); MEAN CELL VOLUME 92.2 fl (80-96); MEAN PLT VOLUME 8.1 fl (7.5-11.1); PLATELET COUNT 104 K/MM3 (134-434); RBC 3.07 M/mm3 (4.00-5.60); RDW 19.6 % (11.9-15.9); WHITE BLOOD COUNT 5.1 K/mm3 (4.0-10.0)
[2018-10-26] MEDS: INSULIN SLIDING SCALE (NOVOLOG) 1 VIAL SQ SCH ×4 (06:21→21:35)
[2018-10-26 06:49] LABS: ALBUMIN 1.8 g/dl (3.4-5.0); BILIRUBIN,TOTAL 0.5 mg/dL (0.2-1); BLOOD UREA NITROGEN 7.5 mg/dL (7-18); CALCIUM 7.4 mg/dL (8.5-10.1); POTASSIUM 4.2 mmol/L (3.5-5.1); TOT PROT 4.9 g/dl (6.4-8.2)
[2018-10-26] MEDS: METOPROLOL TARTRATE 25 MG TABLET (FP) PO SCH ×2 (10:24→21:34)
[2018-10-26] MEDS: CYANOCOBALAMIN 1,000 MCG TABLET (FP) PO SCH (10:26)
[2018-10-26] MEDS: GABAPENTIN 400 MG CAPSULE (FP) PO SCH ×2 (10:26→21:32)
[2018-10-26] MEDS: PANTOPRAZOLE 20 MG TABLET (FP) PO SCH (10:26)
[2018-10-26] MEDS: ALLOPURINOL 300 MG TABLET (FP) PO SCH (10:27)
[2018-10-26] MEDS: HEPARIN NA (PORCINE) 5,000 UNITS/ML 1ML VIAL SQ SCH ×2 (10:28→21:34)
[2018-10-26] MEDS: ZINC OXIDE 20% TOPICAL OINTMENT 30 GM TUBE TP SCH (10:29)
[2018-10-26] MEDS: NYSTATIN 100,000 UNIT/GM TOPICAL CREAM 15 GM TUBE TP SCH (10:29)
--- NOTE | 2018-10-26 11:22 | PN.GI ---
GI Progress Note Subjective: GI note: Michael was able to eat farina this morning!! Denies chills, no abdominal pain, Hb is dwindling. No overt bleeding reported. - Objective Vital Signs: Vital Signs Temperature 98.7 F 10/26/18 06:00 Pulse Rate 77 10/26/18 06:00 Respiratory Rate 20 10/26/18 06:00 Blood Pressure 91/55 L 10/26/18 06:00 O2 Sat by Pulse Oximetry (%) 92 L 10/22/18 05:25 Laboratory Tests 10/24/18 10/26/18 10/26/18 05:33 05:55 05:55 Hct 32.8 L 28.3 L Albumin 1.8 L Constitutional: Calm ...Auscultate: Yes: Normoactive Bowel Sounds ...Palpate: Yes: Soft, Other (nontender) Labs: CBC, BMP 10/26/18 05:55 10/26/18 05:55 INR, PTT INR 1.13 (0.83-1.09) H 10/24/18 05:33 Assessment/Plan Impression: - Michael actually has eaten something - Recurrent MRSA bactermia with possible nidus within the liver - 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 I suspect that his cough reflects microaspirations associated with this. He may also have a component of diabetic autonomic neuropathy causing gastroparesis. Michael has opted for IR placed G tube - Suspect tumor recurrence related abdominal pain - Advanced colon cancer with large right liver lobe metastasis that appears to be necrotic. If fever ensues he will need this area sampled to exclude an abscess Plan: -- Continue trial of chopped diet] - Continue Glucerna -- Continue Reglan IVPB. -- IR placement of G tube deferred -- Liver mass aspiration if fever persists Problem List - Problems (1) Vomiting, persistent, in adult Code(s): R11.10 - VOMITING, UNSPECIFIED (2) Colon cancer metastasized to liver Code(s): C18.9 - MALIGNANT NEOPLASM OF COLON, UNSPECIFIED; C78.7 - SECONDARY MALIG NEOPLASM OF LIVER AND INTRAHEPATIC BILE DUCT (3) Schatzki's ring of distal esophagus Code(s): K22.2 - ESOPHAGEAL OBSTRUCTION (4) Fatty liver Code(s): K76.0 - FATTY (CHANGE OF) LIVER, NOT ELSEWHERE CLASSIFIED (5) Gout Code(s): M10.9 - GOUT, UNSPECIFIED (6) Paroxysmal atrial fibrillation Code(s): I48.0 - PAROXYSMAL ATRIAL FIBRILLATION (7) Family history of malignant neoplasm of colon in first degree relative diagnosed when younger than 60 years of age Code(s): Z80.0 - FAMILY HISTORY OF MALIGNANT NEOPLASM OF DIGESTIVE ORGANS (8) H/O gastrostomy Code(s): Z93.4 - OTHER ARTIFICIAL OPENINGS OF GASTROINTESTINAL TRACT STATUS (9) Hiatal hernia with gastroesophageal reflux disease and esophagitis Code(s): K44.9 - DIAPHRAGMATIC HERNIA WITHOUT OBSTRUCTION OR GANGRENE; K21.0 - GASTRO-ESOPHAGEAL REFLUX DISEASE WITH ESOPHAGITIS (10) Failure to thrive Code(s): KCT9899 - Qualifiers: Failure to thrive age range: in adult Qualified Code(s): R62.7 - Adult failure to thrive (11) CIDP (chronic inflammatory demyelinating polyneuropathy) Code(s): G61.81 - CHRONIC INFLAMMATORY DEMYELINATING POLYNEURITIS (12) Diabetes mellitus Code(s): E11.9 - TYPE 2 DIABETES MELLITUS WITHOUT COMPLICATIONS Qualifiers: Diabetes mellitus type: type 2 Diabetes mellitus senior care insulin use: without ocean transportation intermediary use Diabetes mellitus complication status: without complication Qualified Code(s): E11.9 - Type 2 diabetes mellitus without complications (13) MRSA (methicillin resistant staph aureus) culture positive Code(s): Z22.322 - CARRIER OR SUSPECTED CARRIER OF METHICILLIN RESIS STAPH (14) Multiple myeloma Code(s): C90.00 - MULTIPLE MYELOMA NOT HAVING ACHIEVED REMISSION Qualifiers: Multiple myeloma remission status: unspecified Qualified Code(s): C90.00 - Multiple myeloma not having achieved remission (15) Neutropenic sepsis Code(s): A41.9 - SEPSIS, UNSPECIFIED ORGANISM; D70.9 - NEUTROPENIA, UNSPECIFIED
[2018-10-26] MEDS: DAPTOMYCIN 700 MG in SODIUM CHLORIDE 50 ML IVPB SCH (11:30)
--- NOTE | 2018-10-26 13:48 | PN ---
Progress Note (short form) - Note Progress Note: he ate tuna fish salad and farina at bedside no abd pain no fever Vital Signs - 24 hr 10/25/18 10/25/18 10/26/18 16:30 22:00 06:00 Temperature 97.7 F 99.8 F H 98.7 F Pulse Rate 84 107 H 77 Respiratory 18 20 20 Rate Blood Pressure 120/70 114/72 91/55 L 10/26/18 10/26/18 08:30 13:59 Temperature 97.7 F 97.8 F Pulse Rate 81 81 Respiratory 20 Rate Blood Pressure 106/63 95/59 L Current Medications Generic Name Dose Route Start Last Admin Trade Name Freq PRN Reason Stop Dose Admin Acetaminophen 325 mg 10/22/18 06:02 10/24/18 23:09 Tylenol - PO 325 mg QID PRN Administration PAIN Allopurinol 300 mg 10/22/18 10:00 10/26/18 10:27 Zyloprim - PO 300 mg DAILY JAMIE Administration Cyanocobalamin 2,500 mcg 10/22/18 10:00 10/26/18 10:26 Vitamin B12 - PO 2,500 mcg DAILY JAMIE Administration Gabapentin 400 mg 10/22/18 10:00 10/26/18 10:26 Neurontin - PO 400 mg BID JAMIE Administration Heparin Sodium (Porcine) 5,000 unit 10/22/18 10:00 10/26/18 10:28 Heparin - SQ 5,000 unit BID JAMIE Administration Dextrose/Sodium Chloride 20 meq in 1,000 mls @ 83 mls/hr 10/22/18 09:45 10/25 17:51 Dextrose 5%-Normal Saline+20 Meq Kcl - IV 83 mls/hr ASDIR JAMIE Administration Daptomycin 700 mg/ Sodium 50 mls @ 50 mls/hr 10/24/18 13:45 10/26/18 11:30 Chloride IVPB 50 mls/hr DAILY JAMIE Administration Protocol Ceftaroline Fosamil 600 mg/ 100 mls @ 100 mls/hr 10/24/18 14:00 10/26/18 10: 27 Dextrose IVPB 100 mls/hr Q8H-IV JAMIE Administration Protocol Ibuprofen 400 mg 10/23/18 19:19 10/25/18 22:19 Motrin - PO 400 mg Q6H PRN Administration FEVER Insulin Aspart 1 vial 10/22/18 11:00 10/26/18 12:00 Novolog Vial Sliding Scale - SQ Not Given ACHS JAMIE Protocol Metoclopramide HCl 10 mg 10/22/18 16:30 10/26/18 08:55 Reglan Injection - IVPUSH 10 mg Q8H JAMIE Administration Metoprolol Tartrate 12.5 mg 10/22/18 10:00 10/26/18 10:24 Lopressor - PO 12.5 mg BID JAMIE Administration Multi-Ingredient Ointment 1 applic 10/22/18 10:00 10/26/18 10:29 Zinc Oxide TP 1 applic DAILY JAMIE Administration Nystatin 1 applic 10/22/18 10:00 10/26/18 10:29 Mycostatin Cream - TP 1 applic DAILY JAMIE Administration Ondansetron HCl 4 mg 10/22/18 06:01 Zofran Injection IVPUSH Q8H PRN NAUSEA AND/OR VOMITING Pantoprazole Sodium 20 mg 10/22/18 10:00 10/26/18 10:26 Protonix - PO 20 mg DAILY JAMIE Administration Laboratory Results - last 24 hr 10/25/18 10/25/18 10/26/18 16:32 22:25 05:55 WBC 5.1 RBC 3.07 L Hgb 9.1 L Hct 28.3 L MCV 92.2 MCH 29.6 MCHC 32.1 RDW 19.6 H Plt Count 104 L MPV 8.1 Sodium Potassium Chloride Carbon Dioxide Anion Gap BUN Creatinine Est GFR (CKD-EPI)AfAm Est GFR (CKD-EPI)NonAf POC Glucometer 138 124 Random Glucose Calcium Total Bilirubin AST ALT Alkaline Phosphatase Total Protein Albumin 10/26/18 10/26/18 10/26/18 05:55 06:20 11:59 WBC RBC Hgb Hct MCV MCH MCHC RDW Plt Count MPV Sodium 146 H Potassium 4.2 Chloride 120 H Carbon Dioxide 21 Anion Gap 5 L BUN 7.5 Creatinine 1.0 Est GFR (CKD-EPI)AfAm 86.15 Est GFR (CKD-EPI)NonAf 74.34 POC Glucometer 144 143 Random Glucose 267 H Calcium 7.4 L Total Bilirubin 0.5 AST 30 ALT 43 Alkaline Phosphatase 144 H Total Protein 4.9 L Albumin 1.8 L [id number] Lungs decreased Abd- soft, tender all areas No edema PLAN blood cultures now positive --MRSA repeated blood cultures again sepsis due to possible necrosis of liver mass if he develops fever , persistent positive blood cultures, may need to drain liver mass/abscess by IR iv antibiotics ID sonido noted check labs prognosis guarded spoke with GI yesterday holding off GT placement Problem List - Problems (1) Severe malnutrition Code(s): E43 - UNSPECIFIED SEVERE PROTEIN-CALORIE MALNUTRITION (2) Colon cancer metastasized to liver Code(s): C18.9 - MALIGNANT NEOPLASM OF COLON, UNSPECIFIED; C78.7 - SECONDARY MALIG NEOPLASM OF LIVER AND INTRAHEPATIC BILE DUCT (3) Failure to thrive Code(s): [id number] - Qualifiers: Failure to thrive age range: in adult Qualified Code(s): R62.7 - Adult failure to thrive (4) HTN (hypertension) Code(s): I10 - ESSENTIAL (PRIMARY) HYPERTENSION Qualifiers: Hypertension type: unspecified Qualified Code(s): I10 - Essential (primary ) hypertension (5) Sepsis Code(s): A41.9 - SEPSIS, UNSPECIFIED ORGANISM
[2018-10-26] MEDS: D5-NS + 20 MEQ KCL - 20 MEQ/1,000 ML INFUS.BAG IV SCH (18:26)
--- NOTE | 2018-10-26 20:31 | PN ---
Progress Note (short form) - Note Progress Note: PATIENT SEEN AND EXAMINED Patient is s/p liver ablation of tumor and ? of necrotic focus within ablated area on CT Dr. Saba to decided about possible aspiration.
[2018-10-27] MEDS: D5-NS + 20 MEQ KCL - 20 MEQ/1,000 ML INFUS.BAG IV SCH ×3 (00:08→16:08)
[2018-10-27] MEDS: METOCLOPRAMIDE HCL INJECTION 10 MG/2 ML VIAL IVPUSH SCH ×4 (00:08→23:45)
[2018-10-27] MEDS ORDERED: PT OWN MED DRAWER 7, Y5N ONE (00:26)
[2018-10-27] MEDS: CEFTAROLINE FOSAMIL ACETATE 600 MG in DEXTROSE 5%-WATER - 100 ML IVPB SCH ×3 (01:29→17:24)
[2018-10-27] MEDS ORDERED: oxyCODONE HCL 5 MG TABLET PO ONE (03:42)
[2018-10-27] MEDS: INSULIN SLIDING SCALE (NOVOLOG) 1 VIAL SQ SCH ×4 (06:39→21:24)
[2018-10-27 07:54] LABS: BASO % 0.6 % (0-2.0); EOS % 3.5 % (0-4.5); HEMATOCRIT 26.5 % (35.4-49); HEMOGLOBIN 8.6 GM/dL (11.7-16.9); LYMPH % 11.8 % (8-40); MCH 29.8 pg (25.7-33.7); MCHC 32.7 g/dl (32.0-35.9); MEAN CELL VOLUME 91.1 fl (80-96); MEAN PLT VOLUME 8.1 fl (7.5-11.1); MONO % 8.8 % (3.8-10.2); NEUT % 75.3 % (42.8-82.8); PLATELET COUNT 106 K/MM3 (134-434); RBC 2.91 M/mm3 (4.00-5.60); RDW 19.9 % (11.9-15.9); WHITE BLOOD COUNT 4.9 K/mm3 (4.0-10.0)
[2018-10-27 08:40] LABS: BILIRUBIN,TOTAL 0.4 mg/dL (0.2-1); BLOOD UREA NITROGEN 7.3 mg/dL (7-18); CALCIUM 7.9 mg/dL (8.5-10.1); POTASSIUM 3.6 mmol/L (3.5-5.1)
[2018-10-27] MEDS: DAPTOMYCIN 700 MG in SODIUM CHLORIDE 50 ML IVPB SCH (10:20)
[2018-10-27] MEDS: HEPARIN NA (PORCINE) 5,000 UNITS/ML 1ML VIAL SQ SCH ×2 (10:21→21:21)
[2018-10-27] MEDS: NYSTATIN 100,000 UNIT/GM TOPICAL CREAM 15 GM TUBE TP SCH (10:23)
[2018-10-27] MEDS: PANTOPRAZOLE 20 MG TABLET (FP) PO SCH (10:24)
[2018-10-27] MEDS: GABAPENTIN 400 MG CAPSULE (FP) PO SCH ×2 (10:24→21:21)
[2018-10-27] MEDS: ZINC OXIDE 20% TOPICAL OINTMENT 30 GM TUBE TP SCH (10:25)
[2018-10-27] MEDS: METOPROLOL TARTRATE 25 MG TABLET (FP) PO SCH ×2 (10:26→21:21)
[2018-10-27] MEDS: ALLOPURINOL 300 MG TABLET (FP) PO SCH (10:28)
[2018-10-27] MEDS: CYANOCOBALAMIN 1,000 MCG TABLET (FP) PO SCH (11:54)
--- NOTE | 2018-10-27 13:03 | PN ---
Progress Note (short form) - Note Progress Note: did not eat today c/o abd cramping and diarrhea Vital Signs - 24 hr 10/26/18 10/26/18 10/27/18 13:59 16:25 06:28 Temperature 97.8 F 97.4 F L 98.6 F Pulse Rate 81 72 108 H Respiratory 18 20 Rate Blood Pressure 95/59 L 110/70 120/70 Current Medications Generic Name Dose Route Start Last Admin Trade Name Freq PRN Reason Stop Dose Admin Acetaminophen 325 mg 10/22/18 06:02 10/24/18 23:09 Tylenol - PO 325 mg QID PRN Administration PAIN Allopurinol 300 mg 10/22/18 10:00 10/27/18 10:28 Zyloprim - PO 300 mg DAILY JAMIE Administration Cyanocobalamin 2,500 mcg 10/22/18 10:00 10/27/18 11:54 Vitamin B12 - PO 2,500 mcg DAILY JAMIE Administration Gabapentin 400 mg 10/22/18 10:00 10/27/18 10:24 Neurontin - PO 400 mg BID JAMIE Administration Heparin Sodium (Porcine) 5,000 unit 10/22/18 10:00 10/27/18 10:21 Heparin - SQ 5,000 unit BID JAMIE Administration Dextrose/Sodium Chloride 20 meq in 1,000 mls @ 83 mls/hr 10/22/18 09:45 10/27 10:26 Dextrose 5%-Normal Saline+20 Meq Kcl - IV Not Given ASDIR JAMIE Daptomycin 700 mg/ Sodium 50 mls @ 50 mls/hr 10/24/18 13:45 10/27/18 10:20 Chloride IVPB 50 mls/hr DAILY JAMIE Administration Protocol Ceftaroline Fosamil 600 mg/ 100 mls @ 100 mls/hr 10/24/18 14:00 10/27/18 12: 15 Dextrose IVPB 100 mls/hr Q8H-IV JAMIE Administration Protocol Insulin Aspart 1 vial 10/22/18 11:00 10/27/18 12:16 Novolog Vial Sliding Scale - SQ Not Given ACHS JAMIE Protocol Metoclopramide HCl 10 mg 10/22/18 16:30 10/27/18 10:21 Reglan Injection - IVPUSH 10 mg Q8H JAMIE Administration Metoprolol Tartrate 12.5 mg 10/22/18 10:00 10/27/18 10:26 Lopressor - PO 12.5 mg BID JAMIE Administration Multi-Ingredient Ointment 1 applic 10/22/18 10:00 10/27/18 10:25 Zinc Oxide TP 1 applic DAILY JAMIE Administration Nystatin 1 applic 10/22/18 10:00 10/27/18 10:23 Mycostatin Cream - TP 1 applic DAILY JAMIE Administration Ondansetron HCl 4 mg 10/22/18 06:01 Zofran Injection IVPUSH Q8H PRN NAUSEA AND/OR VOMITING Pantoprazole Sodium 20 mg 10/22/18 10:00 10/27/18 10:24 Protonix - PO 20 mg DAILY JAMIE Administration Laboratory Results - last 24 hr 10/26/18 10/26/18 10/27/18 16:38 21:34 06:38 WBC RBC Hgb Hct MCV MCH MCHC RDW Plt Count MPV Absolute Neuts (auto) Neutrophils % Lymphocytes % Monocytes % Eosinophils % Basophils % Nucleated RBC % Sodium Potassium Chloride Carbon Dioxide Anion Gap BUN Creatinine Est GFR (CKD-EPI)AfAm Est GFR (CKD-EPI)NonAf POC Glucometer 109 128 137 Random Glucose Calcium Total Bilirubin AST ALT Alkaline Phosphatase Total Protein Albumin 10/27/18 10/27/18 07:15 07:15 WBC 4.9 RBC 2.91 L Hgb 8.6 L Hct 26.5 L MCV 91.1 MCH 29.8 MCHC 32.7 RDW 19.9 H Plt Count 106 L MPV 8.1 Absolute Neuts (auto) 3.7 Neutrophils % 75.3 Lymphocytes % 11.8 D Monocytes % 8.8 Eosinophils % 3.5 D Basophils % 0.6 Nucleated RBC % 0 Sodium 144 Potassium 3.6 Chloride 116 H Carbon Dioxide 21 Anion Gap 7 L BUN 7.3 Creatinine 1.0 Est GFR (CKD-EPI)AfAm 86.15 Est GFR (CKD-EPI)NonAf 74.34 POC Glucometer Random Glucose 153 H Calcium 7.9 L Total Bilirubin 0.4 AST 32 ALT 41 Alkaline Phosphatase 161 H Total Protein 5.0 L Albumin 2.0 L [id number] Lungs decreased Abd- soft, tender all areas No edema PLAN blood cultures positive --MRSA repeat no growth sepsis due to possible necrosis of liver mass if he develops fever , persistent positive blood cultures, may need to drain liver mass/abscess by IR spoke with Dr Gomez-- he will speak with IR iv antibiotics ID eval noted check labs prognosis guarded holding off GT placement due to positive blood cultures Problem List - Problems (1) Severe malnutrition Code(s): E43 - UNSPECIFIED SEVERE PROTEIN-CALORIE MALNUTRITION (2) Colon cancer metastasized to liver Code(s): C18.9 - MALIGNANT NEOPLASM OF COLON, UNSPECIFIED; C78.7 - SECONDARY MALIG NEOPLASM OF LIVER AND INTRAHEPATIC BILE DUCT (3) Failure to thrive Code(s): [id number] - Qualifiers: Failure to thrive age range: in adult Qualified Code(s): R62.7 - Adult failure to thrive (4) HTN (hypertension) Code(s): I10 - ESSENTIAL (PRIMARY) HYPERTENSION Qualifiers: Hypertension type: unspecified Qualified Code(s): I10 - Essential (primary ) hypertension (5) Sepsis Code(s): A41.9 - SEPSIS, UNSPECIFIED ORGANISM
--- NOTE | 2018-10-27 15:30 | PN ---
Progress Note, Physician History of Present Illness: AWAKE, ALERT C/O BILATERAL UPPER QUADRANT ABDO PAIN NO N/V + LOOSE STOOL NO C/O F/C BLOOD C/S MRSA - Current Medication List Current Medications: Active Medications Acetaminophen (Tylenol -) 325 mg PO QID PRN PRN Reason: PAIN Last Admin: 10/24/18 23:09 Dose: 325 mg Allopurinol (Zyloprim -) 300 mg PO DAILY JAMIE Last Admin: 10/27/18 10:28 Dose: 300 mg Cyanocobalamin (Vitamin B12 -) 2,500 mcg PO DAILY JAMIE Last Admin: 10/27/18 11:54 Dose: 2,500 mcg Gabapentin (Neurontin -) 400 mg PO BID JAMIE Last Admin: 10/27/18 10:24 Dose: 400 mg Heparin Sodium (Porcine) (Heparin -) 5,000 unit SQ BID JAMIE Last Admin: 10/27/18 10:21 Dose: 5,000 unit Dextrose/Sodium Chloride (Dextrose 5%-Normal Saline+20 Meq Kcl -) 20 meq in 1, 000 mls @ 83 mls/hr IV ASDIR JAMIE Last Admin: 10/27/18 10:26 Dose: Not Given Daptomycin 700 mg/ Sodium (Chloride) 50 mls @ 50 mls/hr IVPB DAILY JAMIE; Protocol Last Admin: 10/27/18 10:20 Dose: 50 mls/hr Ceftaroline Fosamil 600 mg/ (Dextrose) 100 mls @ 100 mls/hr IVPB Q8H-IV JAMIE; Protocol Last Admin: 10/27/18 12:15 Dose: 100 mls/hr Insulin Aspart (Novolog Vial Sliding Scale -) 1 vial SQ ACHS JAMIE; Protocol Last Admin: 10/27/18 12:16 Dose: Not Given Metoclopramide HCl (Reglan Injection -) 10 mg IVPUSH Q8H JAMIE Last Admin: 10/27/18 10:21 Dose: 10 mg Metoprolol Tartrate (Lopressor -) 12.5 mg PO BID JAMIE Last Admin: 10/27/18 10:26 Dose: 12.5 mg Multi-Ingredient Ointment (Zinc Oxide) 1 applic TP DAILY JAMIE Last Admin: 10/27/18 10:25 Dose: 1 applic Nystatin (Mycostatin Cream -) 1 applic TP DAILY JAMIE Last Admin: 10/27/18 10:23 Dose: 1 applic Ondansetron HCl (Zofran Injection) 4 mg IVPUSH Q8H PRN PRN Reason: NAUSEA AND/OR VOMITING Pantoprazole Sodium (Protonix -) 20 mg PO DAILY JAMIE Last Admin: 10/27/18 10:24 Dose: 20 mg - Objective Vital Signs: Vital Signs Temperature 98.6 F 10/27/18 10:00 Pulse Rate 94 H 10/27/18 10:00 Respiratory Rate 20 10/27/18 10:00 Blood Pressure 100/59 L 10/27/18 10:00 O2 Sat by Pulse Oximetry (%) 98 10/27/18 09:00 Constitutional: Yes: No Distress Cardiovascular: Yes: Regular Rate and Rhythm, S1, S2 Respiratory: Yes: CTA Bilaterally Gastrointestinal: Yes: Normal Bowel Sounds, Soft. 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
[2018-10-28] MEDS ORDERED: PT OWN MED DRAWER 7, Y5N ONE ×2 (00:52→22:54)
[2018-10-28] MEDS: CEFTAROLINE FOSAMIL ACETATE 600 MG in DEXTROSE 5%-WATER - 100 ML IVPB SCH ×3 (01:23→17:18)
[2018-10-28] MEDS: INSULIN SLIDING SCALE (NOVOLOG) 1 VIAL SQ SCH ×4 (06:01→22:58)
[2018-10-28] MEDS: D5-NS + 20 MEQ KCL - 20 MEQ/1,000 ML INFUS.BAG IV SCH ×3 (06:03→22:27)
--- NOTE | 2018-10-28 10:28 | ECHO ---
Name: CHANTELL CULP Exam:Adult Echocardiogram Study Date: 10/28/2018 07:27 AM Age: 73 yrs Reason For Study: +BC MRSA Height: 69 in Weight: 187 lb BSA: 2.0 m2 MMode/2D Measurements & Calculations IVSd: 1.1 cm Ao root diam: 3.6 cm LVIDd: 4.0 cm LA dimension: 3.2 cm LVIDs: 2.6 cm LVPWd: 1.1 cm EDV(Teich): 68.6 ml LVOT diam: 2.0 cm ESV(Teich): 24.3 ml Doppler Measurements & Calculations MV E max alberto: 35.4 cm/sec Ao V2 max: 112.7 cm/sec MV A max alberto: 51.4 cm/sec Ao max P.1 mmHg MV E/A: 0.69 MV dec time: 0.14 sec ALFREDO(V,D): 2.2 cm2 LV V1 max P.3 mmHg PA V2 max: 104.5 cm/sec LV V1 max: 76.6 cm/sec PA max P.4 mmHg Med Peak E' Alberto: 4.8 cm/sec Med E/e': 7.4 Lat Peak E' Alberto: 9.9 cm/sec Lat E/e': 3.6 Procedure The study was technically limited with all images being suboptimal in quality. Left Ventricle Left ventricular systolic function is low normal. The transmitral spectral Doppler flow pattern is butler ggestive of impaired LV relaxation. Septal motion is consistent with conduction abnormality. Regional wall mot ion abnormalities cannot be excluded due to limited visualization. Right Ventricle The right ventricle is not well visualized. Atria Normal left and right atrial size and function. Mitral Valve The mitral valve is grossly normal. There is no mitral valve stenosis. Tricuspid Valve The tricuspid valve is not well visualized. Aortic Valve There is mild to moderate aortic sclerosis.;. No hemodynamically significant valvular aortic stenosis . No aortic regurgitation is present. Pulmonic Valve The pulmonic valve is not well visualized. Great Vessels The aortic root is normal size. Pericardium/Pleura There is no pericardial effusion. Interpretation Summary The study was technically limited with all images being suboptimal in quality. Septal motion is consistent with conduction abnormality. Regional wall motion abnormalities cannot be excluded due to limited visualization. Left ventricular systolic function is low normal. There is mild to moderate aortic sclerosis.; There is no pericardial effusion. MD Morillo *Berenice 10/28/2018 10:28 AM
[2018-10-28] MEDS: HEPARIN NA (PORCINE) 5,000 UNITS/ML 1ML VIAL SQ SCH ×2 (10:29→22:58)
[2018-10-28] MEDS: GABAPENTIN 400 MG CAPSULE (FP) PO SCH ×2 (10:29→22:56)
[2018-10-28] MEDS: ALLOPURINOL 300 MG TABLET (FP) PO SCH (10:29)
[2018-10-28] MEDS: PANTOPRAZOLE 20 MG TABLET (FP) PO SCH (10:30)
[2018-10-28] MEDS: METOPROLOL TARTRATE 25 MG TABLET (FP) PO SCH ×2 (10:30→22:58)
[2018-10-28] MEDS: CYANOCOBALAMIN 1,000 MCG TABLET (FP) PO SCH (10:30)
[2018-10-28] MEDS: METOCLOPRAMIDE HCL INJECTION 10 MG/2 ML VIAL IVPUSH SCH ×2 (10:32→16:53)
[2018-10-28] MEDS: NYSTATIN 100,000 UNIT/GM TOPICAL CREAM 15 GM TUBE TP SCH (10:33)
[2018-10-28] MEDS: ZINC OXIDE 20% TOPICAL OINTMENT 30 GM TUBE TP SCH (10:33)
[2018-10-28] MEDS: DAPTOMYCIN 700 MG in SODIUM CHLORIDE 50 ML IVPB SCH (11:27)
--- NOTE | 2018-10-28 11:32 | PN ---
Progress Note (short form) - Note Progress Note: pt seen/ examined chart reviewed awake weak no distress abd discomfort + requesting oxycodone afebrile all f/u noted Vital Signs Temp 98.8 F 10/28/18 07:00 Pulse 84 10/28/18 07:00 Resp 18 10/28/18 07:00 BP 110/68 10/28/18 07:00 Pulse Ox 98 10/27/18 21:00 Intake & Output 10/27/18 10/27/18 10/28/18 11:59 23:59 11:59 Intake Total 900 2500 900 Output Total 1350 300 Balance 900 1150 600 Intake: IV 800 1700 800 DEXTROSE 5%-NORMAL SALINE 800 1700 800 +20 MEQ KCL - 20 meq In 1 ,000 ml @ 83 mls/hr IV ASDIR JAMIE Rx#:[id number] IVPB 100 300 100 Oral 500 Output: Urine 1350 300 Void 1350 300 Other: Voiding Method Urinal Urinal # Unmeasured Voids Void 2 Bowel Movement Yes No # Bowel Movements 1 1 Active Medications Acetaminophen (Tylenol -) 325 mg PO QID PRN PRN Reason: PAIN Last Admin: 10/24/18 23:09 Dose: 325 mg Allopurinol (Zyloprim -) 300 mg PO DAILY JAMIE Last Admin: 10/28/18 10:29 Dose: 300 mg Cyanocobalamin (Vitamin B12 -) 2,500 mcg PO DAILY JAMIE Last Admin: 10/28/18 10:30 Dose: 2,500 mcg Gabapentin (Neurontin -) 400 mg PO BID JAMIE Last Admin: 10/28/18 10:29 Dose: 400 mg Heparin Sodium (Porcine) (Heparin -) 5,000 unit SQ BID JAMIE Last Admin: 10/28/18 10:29 Dose: 5,000 unit Dextrose/Sodium Chloride (Dextrose 5%-Normal Saline+20 Meq Kcl -) 20 meq in 1, 000 mls @ 83 mls/hr IV ASDIR JAMIE Last Admin: 10/28/18 10:32 Dose: Not Given Daptomycin 700 mg/ Sodium (Chloride) 50 mls @ 50 mls/hr IVPB DAILY JAMIE; Protocol Last Admin: 10/28/18 11:27 Dose: 50 mls/hr Ceftaroline Fosamil 600 mg/ (Dextrose) 100 mls @ 100 mls/hr IVPB Q8H-IV JAMIE; Protocol Last Admin: 10/28/18 10:32 Dose: 100 mls/hr Insulin Aspart (Novolog Vial Sliding Scale -) 1 vial SQ ACHS JAMIE; Protocol Last Admin: 10/28/18 11:29 Dose: Not Given Metoclopramide HCl (Reglan Injection -) 10 mg IVPUSH Q8H JAMIE Last Admin: 10/28/18 10:32 Dose: 10 mg Metoprolol Tartrate (Lopressor -) 12.5 mg PO BID [facility] Last Admin: 10/28/18 10:30 Dose: 12.5 mg Multi-Ingredient Ointment (Zinc Oxide) 1 applic TP DAILY JAMIE Last Admin: 10/28/18 10:33 Dose: 1 applic Nystatin (Mycostatin Cream -) 1 applic TP DAILY [facility] Last Admin: 10/28/18 10:33 Dose: 1 applic Ondansetron HCl (Zofran Injection) 4 mg IVPUSH Q8H PRN PRN Reason: NAUSEA AND/OR VOMITING Pantoprazole Sodium (Protonix -) 20 mg PO DAILY [facility] Last Admin: 10/28/18 10:30 Dose: 20 mg CBC, BMP 10/27/18 07:15 10/27/18 07:15 Microbiology 10/26/18 05:55 Blood Culture - Preliminary Blood - Peripheral Venous NO GROWTH OBTAINED AFTER 48 HOURS, INCUBATION TO CONTINUE FOR 3 DAYS. 10/26/18 05:55 Blood Culture - Preliminary Blood - Peripheral Venous NO GROWTH OBTAINED AFTER 48 HOURS, INCUBATION TO CONTINUE FOR 3 DAYS. add oxycodone Physical Exam Weak [id number] Lungs decreased Abd- soft, tender all areas No edema Awake PLAN Recurrent MRSA Bactremia colon ca Myeloma Poor appetite Infected liver ? Continue present care condition poor peg -- when infection resolves echo- no vegetation will follow Problem List - Problems (1) Sepsis Code(s): A41.9 - SEPSIS, UNSPECIFIED ORGANISM (2) Atrial fibrillation Code(s): I48.91 - UNSPECIFIED ATRIAL FIBRILLATION Qualifiers: Atrial fibrillation type: unspecified Qualified Code(s): I48.91 - Unspecified atrial fibrillation (3) Colon cancer metastasized to liver Code(s): C18.9 - MALIGNANT NEOPLASM OF COLON, UNSPECIFIED; C78.7 - SECONDARY MALIG NEOPLASM OF LIVER AND INTRAHEPATIC BILE DUCT (4) Failure to thrive Code(s): [id number] - Qualifiers: Failure to thrive age range: in adult Qualified Code(s): R62.7 - Adult failure to thrive
--- NOTE | 2018-10-28 12:13 | PN ---
Progress Note, Physician History of Present Illness: AWAKE, ALERT IN BED MINIMAL TO NO ORAL INTAKE NO LOOSE STOOL TODAY NO C/O F/C BLOOD C/S 10/26 NO GROWTH - Current Medication List Current Medications: Active Medications Acetaminophen (Tylenol -) 325 mg PO QID PRN PRN Reason: PAIN Last Admin: 10/24/18 23:09 Dose: 325 mg Allopurinol (Zyloprim -) 300 mg PO DAILY JAMIE Last Admin: 10/28/18 10:29 Dose: 300 mg Cyanocobalamin (Vitamin B12 -) 2,500 mcg PO DAILY JAMIE Last Admin: 10/28/18 10:30 Dose: 2,500 mcg Gabapentin (Neurontin -) 400 mg PO BID JAMIE Last Admin: 10/28/18 10:29 Dose: 400 mg Heparin Sodium (Porcine) (Heparin -) 5,000 unit SQ BID JAMIE Last Admin: 10/28/18 10:29 Dose: 5,000 unit Dextrose/Sodium Chloride (Dextrose 5%-Normal Saline+20 Meq Kcl -) 20 meq in 1, 000 mls @ 83 mls/hr IV ASDIR JAMIE Last Admin: 10/28/18 10:32 Dose: Not Given Daptomycin 700 mg/ Sodium (Chloride) 50 mls @ 50 mls/hr IVPB DAILY JAMIE; Protocol Last Admin: 10/28/18 11:27 Dose: 50 mls/hr Ceftaroline Fosamil 600 mg/ (Dextrose) 100 mls @ 100 mls/hr IVPB Q8H-IV JAMIE; Protocol Last Admin: 10/28/18 10:32 Dose: 100 mls/hr Insulin Aspart (Novolog Vial Sliding Scale -) 1 vial SQ ACHS JAMIE; Protocol Last Admin: 10/28/18 11:29 Dose: Not Given Metoclopramide HCl (Reglan Injection -) 10 mg IVPUSH Q8H JAMIE Last Admin: 10/28/18 10:32 Dose: 10 mg Metoprolol Tartrate (Lopressor -) 12.5 mg PO BID JAMIE Last Admin: 10/28/18 10:30 Dose: 12.5 mg Multi-Ingredient Ointment (Zinc Oxide) 1 applic TP DAILY JAMIE Last Admin: 10/28/18 10:33 Dose: 1 applic Nystatin (Mycostatin Cream -) 1 applic TP DAILY JAMIE Last Admin: 10/28/18 10:33 Dose: 1 applic Ondansetron HCl (Zofran Injection) 4 mg IVPUSH Q8H PRN PRN Reason: NAUSEA AND/OR VOMITING Oxycodone HCl (Oxycontin -) 10 mg PO BID [facility] Pantoprazole Sodium (Protonix -) 20 mg PO DAILY [facility] Last Admin: 10/28/18 10:30 Dose: 20 mg - Objective Vital Signs: Vital Signs Temperature 98.8 F 10/28/18 07:00 Pulse Rate 84 10/28/18 07:00 Respiratory Rate 18 10/28/18 07:00 Blood Pressure 110/68 10/28/18 07:00 O2 Sat by Pulse Oximetry (%) 98 10/27/18 21:00 Constitutional: Yes: No Distress Cardiovascular: Yes: Regular Rate and Rhythm, S1, S2 Respiratory: Yes: CTA Bilaterally Gastrointestinal: Yes: Normal Bowel Sounds, Soft, Abdomen, Obese. No: Tenderness Edema: No Labs: CBC, BMP 10/27/18 07:15 10/27/18 07:15 INR, PTT INR 1.13 (0.83-1.09) H 10/24/18 05:33 Assessment/Plan RECURRENT MRSA BACTEREMIA ? INFECTED HEPATIC MASS METASTATIC COLON CA REPEAT BC PENDING CONTINUE DAPTOMYCIN/ CEFTAROLINE REPEAT ECHO R/O VEGETATIONS
--- NOTE | 2018-10-28 14:25 | PN.GI ---
GI Progress Note Subjective: GI NOte: Not eating, not even Glucerna.Now has abdominal pain and nausea. Receiving narcotic analgesia. Has no appetite. 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 I suspect that his cough reflects microaspirations associated with this. He may also have a component of diabetic autonomic neuropathy causing gastroparesis. Michael has opted for IR placed G tube - Suspect tumor recurrence related abdominal pain - Advanced colon cancer with large right liver lobe metastasis that appears to be necrotic. If fever ensues he will need this area sampled to exclude an abscess Plan: -- Discussed trial of Marinol with Michael and his . He is willing to try it. ] -- Continue Reglan IVPB. -- Liver mass aspiration if fever persists Problem List - Problems (1) Vomiting, persistent, in adult Code(s): R11.10 - VOMITING, UNSPECIFIED (2) Colon cancer metastasized to liver Code(s): C18.9 - MALIGNANT NEOPLASM OF COLON, UNSPECIFIED; C78.7 - SECONDARY MALIG NEOPLASM OF LIVER AND INTRAHEPATIC BILE DUCT (3) Schatzki's ring of distal esophagus Code(s): K22.2 - ESOPHAGEAL OBSTRUCTION (4) Fatty liver Code(s): K76.0 - FATTY (CHANGE OF) LIVER, NOT ELSEWHERE CLASSIFIED (5) Gout Code(s): M10.9 - GOUT, UNSPECIFIED (6) Paroxysmal atrial fibrillation Code(s): I48.0 - PAROXYSMAL ATRIAL FIBRILLATION (7) Family history of malignant neoplasm of colon in first degree relative diagnosed when younger than 60 years of age Code(s): Z80.0 - FAMILY HISTORY OF MALIGNANT NEOPLASM OF DIGESTIVE ORGANS (8) H/O gastrostomy Code(s): Z93.4 - OTHER ARTIFICIAL OPENINGS OF GASTROINTESTINAL TRACT STATUS (9) Hiatal hernia with gastroesophageal reflux disease and esophagitis Code(s): K44.9 - DIAPHRAGMATIC HERNIA WITHOUT OBSTRUCTION OR GANGRENE; K21.0 - GASTRO-ESOPHAGEAL REFLUX DISEASE WITH ESOPHAGITIS (10) Failure to thrive Code(s): PSS4232 - Qualifiers: Failure to thrive age range: in adult Qualified Code(s): R62.7 - Adult failure to thrive (11) CIDP (chronic inflammatory demyelinating polyneuropathy) Code(s): G61.81 - CHRONIC INFLAMMATORY DEMYELINATING POLYNEURITIS (12) Diabetes mellitus Code(s): E11.9 - TYPE 2 DIABETES MELLITUS WITHOUT COMPLICATIONS Qualifiers: Diabetes mellitus type: type 2 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: without shelter use Diabetes mellitus complication status: without complication Qualified Code(s): E11.9 - Type 2 diabetes mellitus without complications (13) MRSA (methicillin resistant staph aureus) culture positive Code(s): Z22.322 - CARRIER OR SUSPECTED CARRIER OF METHICILLIN RESIS STAPH (14) Multiple myeloma Code(s): C90.00 - MULTIPLE MYELOMA NOT HAVING ACHIEVED REMISSION Qualifiers: Multiple myeloma remission status: unspecified Qualified Code(s): C90.00 - Multiple myeloma not having achieved remission (15) Neutropenic sepsis Code(s): A41.9 - SEPSIS, UNSPECIFIED ORGANISM; D70.9 - NEUTROPENIA, UNSPECIFIED
[2018-10-28] MEDS: oxyCODONE HCL 10 MG SUSTAINED ACTING TABLET PO SCH ×2 (14:49→22:56)
--- NOTE | 2018-10-28 17:37 | PN ---
Progress Note (short form) - Note Progress Note: Patient seen and examined Little intake including virtually no liquid intake. Requires walker and 2 patients holding patients to walk from bed to door in room . When patient dies take p.o. he gets abdominal pain Last Vital Signs Temp Pulse Resp BP Pulse Ox 98.3 F 76 18 113/67 96 10/28/18 13:16 10/28/18 13:16 10/28/18 13:16 10/28/18 13:16 10/28/18 09:00 HEENT: anisocoria, left ptosis Oropharynx:coated tongue Cor: RSR, No murmurs, No gallops Lungs: poor inspiratory effort Abd:RUQ mild tenderness Ext:No significant edema Skin: No rashes, Integument intact CBC, BMP 10/27/18 07:15 10/27/18 07:15 Current Medications Generic Name Dose Route Start Last Admin Trade Name Freq PRN Reason Stop Dose Admin Acetaminophen 325 mg 10/22/18 06:02 10/24/18 23:09 Tylenol - PO 325 mg QID PRN Administration PAIN Allopurinol 300 mg 10/22/18 10:00 10/28/18 10:29 Zyloprim - PO 300 mg DAILY JAMIE Administration Cyanocobalamin 2,500 mcg 10/22/18 10:00 10/28/18 10:30 Vitamin B12 - PO 2,500 mcg DAILY JAMIE Administration Dronabinol 2.5 mg 10/29/18 10:00 Marinol - PO DAILY JAMIE Gabapentin 400 mg 10/22/18 10:00 10/28/18 10:29 Neurontin - PO 400 mg BID JAMIE Administration Heparin Sodium (Porcine) 5,000 unit 10/22/18 10:00 10/28/18 10:29 Heparin - SQ 5,000 unit BID JAMIE Administration Dextrose/Sodium Chloride 20 meq in 1,000 mls @ 83 mls/hr 10/22/18 09:45 10/28 10:32 Dextrose 5%-Normal Saline+20 Meq Kcl - IV Not Given ASDIR JAMIE Daptomycin 700 mg/ Sodium 50 mls @ 50 mls/hr 10/24/18 13:45 10/28/18 11:27 Chloride IVPB 50 mls/hr DAILY JAMIE Administration Protocol Ceftaroline Fosamil 600 mg/ 100 mls @ 100 mls/hr 10/24/18 14:00 10/28/18 17: 18 Dextrose IVPB 100 mls/hr Q8H-IV JAMIE Administration Protocol Insulin Aspart 1 vial 10/22/18 11:00 10/28/18 16:58 Novolog Vial Sliding Scale - SQ Not Given ACHS [facility] Protocol Metoclopramide HCl 10 mg 10/22/18 16:30 10/28/18 16:53 Reglan Injection - IVPUSH 10 mg Q8H JAMIE Administration Metoprolol Tartrate 12.5 mg 10/22/18 10:00 10/28/18 10:30 Lopressor - PO 12.5 mg BID JAMIE Administration Multi-Ingredient Ointment 1 applic 10/22/18 10:00 10/28/18 10:33 Zinc Oxide TP 1 applic DAILY JAMIE Administration Nystatin 1 applic 10/22/18 10:00 10/28/18 10:33 Mycostatin Cream - TP 1 applic DAILY JAMIE Administration Ondansetron HCl 4 mg 10/22/18 06:01 Zofran Injection IVPUSH Q8H PRN NAUSEA AND/OR VOMITING Oxycodone HCl 10 mg 10/28/18 11:45 10/28/18 14:49 Oxycontin - PO 10 mg BID JAMIE Administration Pantoprazole Sodium 20 mg 10/22/18 10:00 10/28/18 10:30 Protonix - PO 20 mg DAILY JAMIE Administration Microbiology 10/26/18 05:55 Blood - Peripheral Venous Blood Culture - Preliminary NO GROWTH OBTAINED AFTER 48 HOURS, INCUBATION TO CONTINUE FOR 3 DAYS. 10/26/18 05:55 Blood - Peripheral Venous Blood Culture - Preliminary NO GROWTH OBTAINED AFTER 48 HOURS, INCUBATION TO CONTINUE FOR 3 DAYS. 10/23/18 20:15 Blood - Peripheral Venous Blood Culture - Final S Aureus 10/23/18 20:05 Blood - Peripheral Venous Blood Culture - Final S Aureus 10/24/18 03:00 Urine - Urine Clean Catch Urine Culture - Final NO GROWTH OBTAINED Impression: Recurrent MRSA bacteremia Colon ca Liver mets-s/p ablation ?infected area of liver Dysphagia Malnutrition Hx of myeloma Prior notes reviewed Seems to agree to IR directed PEG ?? revisit ?? of liver aspiration with IR.
[2018-10-29] MEDS ORDERED: PT OWN MED DRAWER 7, Y5N ONE ×5 (01:21→20:45)
[2018-10-29] MEDS: CEFTAROLINE FOSAMIL ACETATE 600 MG in DEXTROSE 5%-WATER - 100 ML IVPB SCH ×3 (01:37→17:27)
[2018-10-29] MEDS: METOCLOPRAMIDE HCL INJECTION 10 MG/2 ML VIAL IVPUSH SCH ×3 (01:37→17:27)
[2018-10-29] MEDS: INSULIN SLIDING SCALE (NOVOLOG) 1 VIAL SQ SCH ×4 (07:36→21:38)
[2018-10-29] MEDS: CYANOCOBALAMIN 1,000 MCG TABLET (FP) PO SCH (09:23)
[2018-10-29] MEDS: METOPROLOL TARTRATE 25 MG TABLET (FP) PO SCH ×2 (09:24→21:32)
[2018-10-29] MEDS: oxyCODONE HCL 10 MG SUSTAINED ACTING TABLET PO SCH ×2 (09:25→21:32)
[2018-10-29] MEDS: PANTOPRAZOLE 20 MG TABLET (FP) PO SCH (09:25)
[2018-10-29] MEDS: ALLOPURINOL 300 MG TABLET (FP) PO SCH (09:25)
[2018-10-29] MEDS: GABAPENTIN 400 MG CAPSULE (FP) PO SCH ×2 (09:25→21:32)
[2018-10-29] MEDS: HEPARIN NA (PORCINE) 5,000 UNITS/ML 1ML VIAL SQ SCH ×2 (09:26→21:31)
[2018-10-29] MEDS: DRONABINOL 2.5 MG CAPSULE PO SCH (09:27)
[2018-10-29] MEDS: NYSTATIN 100,000 UNIT/GM TOPICAL CREAM 15 GM TUBE TP SCH (09:28)
[2018-10-29] MEDS: ZINC OXIDE 20% TOPICAL OINTMENT 30 GM TUBE TP SCH (09:28)
--- NOTE | 2018-10-29 10:13 | PN ---
Progress Note (short form) - Note Progress Note: ate some cereal this am no stomach pain no throat pain Vital Signs Period Temp Pulse Resp BP Sys/Max Pulse Ox Last 24 Hr 97.3 F-98.8 F 76-91 18-20 105-124/67-80 93 cor-rrr lungs clear abd soft,minimal tenderness to palpation ext no edema CBC, BMP 10/27/18 07:15 10/27/18 07:15 [id number] Microbiology 10/28/18 06:30 Blood - Peripheral Venous Blood Culture - Preliminary NO GROWTH OBTAINED AFTER 24 HOURS, INCUBATION TO CONTINUE FOR 4 DAYS. 10/28/18 06:30 Blood - Peripheral Venous Blood Culture - Preliminary NO GROWTH OBTAINED AFTER 24 HOURS, INCUBATION TO CONTINUE FOR 4 DAYS. 10/26/18 05:55 Blood - Peripheral Venous Blood Culture - Preliminary NO GROWTH OBTAINED AFTER 72 HOURS, INCUBATION TO CONTINUE FOR 2 DAYS. 10/26/18 05:55 Blood - Peripheral Venous Blood Culture - Preliminary NO GROWTH OBTAINED AFTER 72 HOURS, INCUBATION TO CONTINUE FOR 2 DAYS. 10/23/18 20:15 Blood - Peripheral Venous Blood Culture - Final S Aureus 10/23/18 20:05 Blood - Peripheral Venous Blood Culture - Final S Aureus 10/24/18 03:00 Urine - Urine Clean Catch Urine Culture - Final NO GROWTH OBTAINED echo- suboptimal- negative Current Medications Acetaminophen (Tylenol -) 325 mg PO QID PRN PRN Reason: PAIN Last Admin: 10/24/18 23:09 Dose: 325 mg Allopurinol (Zyloprim -) 300 mg PO DAILY [facility] Last Admin: 10/29/18 09:25 Dose: 300 mg Cyanocobalamin (Vitamin B12 -) 2,500 mcg PO DAILY [facility] Last Admin: 10/29/18 09:23 Dose: 2,500 mcg Dronabinol (Marinol -) 2.5 mg PO DAILY [facility] Last Admin: 10/29/18 09:27 Dose: 2.5 mg Gabapentin (Neurontin -) 400 mg PO BID [facility] Last Admin: 10/29/18 09:25 Dose: 400 mg Heparin Sodium (Porcine) (Heparin -) 5,000 unit SQ BID [facility] Last Admin: 10/29/18 09:26 Dose: 5,000 unit Dextrose/Sodium Chloride (Dextrose 5%-Normal Saline+20 Meq Kcl -) 20 meq in 1, 000 mls @ 83 mls/hr IV ASDIR [facility] Last Admin: 10/28/18 22:27 Dose: 83 mls/hr Daptomycin 700 mg/ Sodium (Chloride) 50 mls @ 50 mls/hr IVPB DAILY [facility]; Protocol Last Admin: 10/28/18 11:27 Dose: 50 mls/hr Ceftaroline Fosamil 600 mg/ (Dextrose) 100 mls @ 100 mls/hr IVPB Q8H-IV JAMIE; Protocol Last Admin: 10/29/18 09:26 Dose: 100 mls/hr Insulin Aspart (Novolog Vial Sliding Scale -) 1 vial SQ ACHS [facility]; Protocol Last Admin: 10/29/18 07:36 Dose: Not Given Metoclopramide HCl (Reglan Injection -) 10 mg IVPUSH Q8H [facility] Last Admin: 10/29/18 09:29 Dose: 10 mg Metoprolol Tartrate (Lopressor -) 12.5 mg PO BID [facility] Last Admin: 10/29/18 09:24 Dose: 12.5 mg Multi-Ingredient Ointment (Zinc Oxide) 1 applic TP DAILY [facility] Last Admin: 10/29/18 09:28 Dose: 1 applic Nystatin (Mycostatin Cream -) 1 applic TP DAILY [facility] Last Admin: 10/29/18 09:28 Dose: 1 applic Ondansetron HCl (Zofran Injection) 4 mg IVPUSH Q8H PRN PRN Reason: NAUSEA AND/OR VOMITING Oxycodone HCl (Oxycontin -) 10 mg PO BID [facility] Last Admin: 10/29/18 09:25 Dose: 10 mg Pantoprazole Sodium (Protonix -) 20 mg PO DAILY [facility] Last Admin: 10/29/18 09:25 Dose: 20 mg a/p recurrent MRSA bacteremia metastatic colon ca s/p liver mass ablation- ?infected continue daptomycin/ceftaroline ?aspiration liver mass ?RANDY
[2018-10-29] MEDS: D5-NS + 20 MEQ KCL - 20 MEQ/1,000 ML INFUS.BAG IV SCH (11:28)
[2018-10-29] MEDS: DAPTOMYCIN 700 MG in SODIUM CHLORIDE 50 ML IVPB SCH (11:28)
--- NOTE | 2018-10-29 13:08 | PN ---
Progress Note (short form) - Note Progress Note: no abd pain at bedside pt was able to eat few bites of lunch- mashed potatoes Vital Signs - 24 hr 10/28/18 10/28/18 10/28/18 13:16 18:00 21:00 Temperature 98.3 F 97.3 F L Pulse Rate 76 91 H Respiratory 18 20 Rate Blood Pressure 113/67 112/74 O2 Sat by Pulse 93 L Oximetry (%) 10/28/18 10/29/18 10/29/18 22:00 01:43 06:00 Temperature 97.7 F 98.8 F 98.2 F Pulse Rate 86 88 80 Respiratory 20 20 20 Rate Blood Pressure 105/68 124/80 120/70 O2 Sat by Pulse Oximetry (%) Current Medications Generic Name Dose Route Start Last Admin Trade Name Freq PRN Reason Stop Dose Admin Acetaminophen 325 mg 10/22/18 06:02 10/24/18 23:09 Tylenol - PO 325 mg QID PRN Administration PAIN Allopurinol 300 mg 10/22/18 10:00 10/29/18 09:25 Zyloprim - PO 300 mg DAILY JAMIE Administration Cyanocobalamin 2,500 mcg 10/22/18 10:00 10/29/18 09:23 Vitamin B12 - PO 2,500 mcg DAILY JAMIE Administration Dronabinol 2.5 mg 10/29/18 10:00 10/29/18 09:27 Marinol - PO 2.5 mg DAILY JAMIE Administration Gabapentin 400 mg 10/22/18 10:00 10/29/18 09:25 Neurontin - PO 400 mg BID JAMIE Administration Heparin Sodium (Porcine) 5,000 unit 10/22/18 10:00 10/29/18 09:26 Heparin - SQ 5,000 unit BID JAMIE Administration Dextrose/Sodium Chloride 20 meq in 1,000 mls @ 83 mls/hr 10/22/18 09:45 10/29 11:28 Dextrose 5%-Normal Saline+20 Meq Kcl - IV 83 mls/hr ASDIR JAMIE Administration Daptomycin 700 mg/ Sodium 50 mls @ 50 mls/hr 10/24/18 13:45 10/29/18 11:28 Chloride IVPB 50 mls/hr DAILY JAMIE Administration Protocol Ceftaroline Fosamil 600 mg/ 100 mls @ 100 mls/hr 10/24/18 14:00 10/29/18 09: 26 Dextrose IVPB 100 mls/hr Q8H-IV JAMIE Administration Protocol Insulin Aspart 1 vial 10/22/18 11:00 10/29/18 12:09 Novolog Vial Sliding Scale - SQ Not Given ACHS [facility]IE Protocol Metoclopramide HCl 10 mg 10/22/18 16:30 10/29/18 09:29 Reglan Injection - IVPUSH 10 mg Q8H JAMIE Administration Metoprolol Tartrate 12.5 mg 10/22/18 10:00 10/29/18 09:24 Lopressor - PO 12.5 mg BID JAMIE Administration Multi-Ingredient Ointment 1 applic 10/22/18 10:00 10/29/18 09:28 Zinc Oxide TP 1 applic DAILY JAMIE Administration Nystatin 1 applic 10/22/18 10:00 10/29/18 09:28 Mycostatin Cream - TP 1 applic DAILY JAMIE Administration Ondansetron HCl 4 mg 10/22/18 06:01 Zofran Injection IVPUSH Q8H PRN NAUSEA AND/OR VOMITING Oxycodone HCl 10 mg 10/28/18 11:45 10/29/18 09:25 Oxycontin - PO 10 mg BID JAMIE Administration Pantoprazole Sodium 20 mg 10/22/18 10:00 10/29/18 09:25 Protonix - PO 20 mg DAILY JAMIE Administration Laboratory Results - last 24 hr 10/29/18 06:30 Creatine Kinase 26 [id number] Lungs decreased Abd- soft, not tender No edema PLAN blood cultures positive --MRSA repeat no growth sepsis due to possible necrosis of liver mass if he develops fever , persistent positive blood cultures, may need to drain liver mass/abscess by IR spoke with Dr Gomez-- ?liver ablation changes vs abscess iv antibiotics ID ezraal noted will dc diabetic diet for now-- will take care of elevated sugars using Novolog- - at this time he needs more nourishment holding off GT placement due to positive blood cultures Problem List - Problems (1) Severe malnutrition Code(s): E43 - UNSPECIFIED SEVERE PROTEIN-CALORIE MALNUTRITION (2) Colon cancer metastasized to liver Code(s): C18.9 - MALIGNANT NEOPLASM OF COLON, UNSPECIFIED; C78.7 - SECONDARY MALIG NEOPLASM OF LIVER AND INTRAHEPATIC BILE DUCT (3) Failure to thrive Code(s): VXM0652 - Qualifiers: Failure to thrive age range: in adult Qualified Code(s): R62.7 - Adult failure to thrive (4) HTN (hypertension) Code(s): I10 - ESSENTIAL (PRIMARY) HYPERTENSION Qualifiers: Hypertension type: unspecified Qualified Code(s): I10 - Essential (primary ) hypertension (5) Sepsis Code(s): A41.9 - SEPSIS, UNSPECIFIED ORGANISM
--- NOTE | 2018-10-29 18:45 | PN ---
Progress Note, Physician History of Present Illness: No new events. Was able to eat lunch today. - Current Medication List Current Medications: Active Medications Acetaminophen (Tylenol -) 325 mg PO QID PRN PRN Reason: PAIN Last Admin: 10/24/18 23:09 Dose: 325 mg Allopurinol (Zyloprim -) 300 mg PO DAILY [facility] Last Admin: 10/29/18 09:25 Dose: 300 mg Cyanocobalamin (Vitamin B12 -) 2,500 mcg PO DAILY [facility] Last Admin: 10/29/18 09:23 Dose: 2,500 mcg Dronabinol (Marinol -) 2.5 mg PO DAILY [facility] Last Admin: 10/29/18 09:27 Dose: 2.5 mg Gabapentin (Neurontin -) 400 mg PO BID [facility] Last Admin: 10/29/18 09:25 Dose: 400 mg Heparin Sodium (Porcine) (Heparin -) 5,000 unit SQ BID [facility] Last Admin: 10/29/18 09:26 Dose: 5,000 unit Dextrose/Sodium Chloride (Dextrose 5%-Normal Saline+20 Meq Kcl -) 20 meq in 1, 000 mls @ 83 mls/hr IV ASDIR JAMIE Last Admin: 10/29/18 11:28 Dose: 83 mls/hr Daptomycin 700 mg/ Sodium (Chloride) 50 mls @ 50 mls/hr IVPB DAILY [facility]; Protocol Last Admin: 10/29/18 11:28 Dose: 50 mls/hr Ceftaroline Fosamil 600 mg/ (Dextrose) 100 mls @ 100 mls/hr IVPB Q8H-IV JAMIE; Protocol Last Admin: 10/29/18 17:27 Dose: 100 mls/hr Insulin Aspart (Novolog Vial Sliding Scale -) 1 vial SQ ACHS [facility]; Protocol Last Admin: 10/29/18 17:16 Dose: Not Given Metoclopramide HCl (Reglan Injection -) 10 mg IVPUSH Q8H [facility] Last Admin: 10/29/18 17:27 Dose: 10 mg Metoprolol Tartrate (Lopressor -) 12.5 mg PO BID [facility] Last Admin: 10/29/18 09:24 Dose: 12.5 mg Multi-Ingredient Ointment (Zinc Oxide) 1 applic TP DAILY [facility] Last Admin: 10/29/18 09:28 Dose: 1 applic Nystatin (Mycostatin Cream -) 1 applic TP DAILY [facility] Last Admin: 10/29/18 09:28 Dose: 1 applic Ondansetron HCl (Zofran Injection) 4 mg IVPUSH Q8H PRN PRN Reason: NAUSEA AND/OR VOMITING Oxycodone HCl (Oxycontin -) 10 mg PO BID [facility] Last Admin: 10/29/18 09:25 Dose: 10 mg Pantoprazole Sodium (Protonix -) 20 mg PO DAILY [facility] Last Admin: 10/29/18 09:25 Dose: 20 mg - Objective Vital Signs: Vital Signs Temperature 98.1 F 10/29/18 17:14 Pulse Rate 79 10/29/18 17:14 Respiratory Rate 18 10/29/18 17:14 Blood Pressure 96/63 10/29/18 17:14 O2 Sat by Pulse Oximetry (%) 93 L 10/29/18 09:00 Constitutional: Yes: Well Nourished, No Distress, Calm Eyes: Yes: Conjunctiva Clear Respiratory: Yes: Regular, CTA Bilaterally Gastrointestinal: Yes: Soft. No: Tenderness Edema: No Labs: CBC, BMP 10/27/18 07:15 10/27/18 07:15 INR, PTT INR 1.13 (0.83-1.09) H 10/24/18 05:33 Assessment/Plan 72M with colon cancer s/p right hemicolectomy with unresectable rt. lobe of liver metastasis s/p ablation and c1 FOLFIRI 09/06/18,c/b recent MRSA bacteremia and C. diff, now re-admitted with abdominal pain. Found to have increase in size of right hepatic mass that is now complex, with multiple air pockets and recurrent MRSA bacteremia (most recent cultures clear). Plan for possible jejunostomy, ?drainage of liver ?abscesses
[2018-10-30] MEDS: METOCLOPRAMIDE HCL INJECTION 10 MG/2 ML VIAL IVPUSH SCH ×3 (00:18→17:58)
[2018-10-30] MEDS: D5-NS + 20 MEQ KCL - 20 MEQ/1,000 ML INFUS.BAG IV SCH ×2 (00:19→22:17)
[2018-10-30] MEDS: CEFTAROLINE FOSAMIL ACETATE 600 MG in DEXTROSE 5%-WATER - 100 ML IVPB SCH ×3 (01:31→17:58)
[2018-10-30] MEDS: INSULIN SLIDING SCALE (NOVOLOG) 1 VIAL SQ SCH ×4 (06:23→21:40)
[2018-10-30] MEDS ORDERED: PT OWN MED DRAWER 7, Y5N ONE ×3 (08:59→20:18)
[2018-10-30] MEDS: PANTOPRAZOLE 20 MG TABLET (FP) PO SCH (09:05)
[2018-10-30] MEDS: oxyCODONE HCL 10 MG SUSTAINED ACTING TABLET PO SCH ×2 (09:05→22:17)
[2018-10-30] MEDS: METOPROLOL TARTRATE 25 MG TABLET (FP) PO SCH ×2 (09:06→21:36)
[2018-10-30] MEDS: GABAPENTIN 400 MG CAPSULE (FP) PO SCH ×2 (09:07→21:36)
[2018-10-30] MEDS: ALLOPURINOL 300 MG TABLET (FP) PO SCH (09:07)
[2018-10-30] MEDS: CYANOCOBALAMIN 1,000 MCG TABLET (FP) PO SCH (09:07)
[2018-10-30] MEDS: HEPARIN NA (PORCINE) 5,000 UNITS/ML 1ML VIAL SQ SCH ×2 (09:08→21:36)
[2018-10-30] MEDS: NYSTATIN 100,000 UNIT/GM TOPICAL CREAM 15 GM TUBE TP SCH (09:11)
[2018-10-30] MEDS: ZINC OXIDE 20% TOPICAL OINTMENT 30 GM TUBE TP SCH (09:11)
[2018-10-30] MEDS: DRONABINOL 2.5 MG CAPSULE PO SCH (09:38)
[2018-10-30] MEDS: DAPTOMYCIN 700 MG in SODIUM CHLORIDE 50 ML IVPB SCH (11:51)
--- NOTE | 2018-10-30 15:14 | PN ---
Progress Note (short form) - Note Progress Note: no abd pain unable to eat all portions Vital Signs - 24 hr 10/29/18 10/29/18 10/29/18 17:14 20:33 21:52 Temperature 98.1 F 98.2 F Pulse Rate 79 74 Respiratory 18 18 Rate Blood Pressure 96/63 100/61 O2 Sat by Pulse 94 L Oximetry (%) 10/30/18 10/30/18 09:00 10:00 Temperature 98.1 F Pulse Rate 80 Respiratory 18 20 Rate Blood Pressure 106/63 O2 Sat by Pulse 94 L Oximetry (%) Current Medications Generic Name Dose Route Start Last Admin Trade Name Freq PRN Reason Stop Dose Admin Acetaminophen 325 mg 10/22/18 06:02 10/24/18 23:09 Tylenol - PO 325 mg QID PRN Administration PAIN Allopurinol 300 mg 10/22/18 10:00 10/30/18 09:07 Zyloprim - PO 300 mg DAILY JAMIE Administration Cyanocobalamin 2,500 mcg 10/22/18 10:00 10/30/18 09:07 Vitamin B12 - PO 2,500 mcg DAILY [facility]IE Administration Dronabinol 2.5 mg 10/29/18 10:00 10/30/18 09:38 Marinol - PO 2.5 mg DAILY [facility]IE Administration Gabapentin 400 mg 10/22/18 10:00 10/30/18 09:07 Neurontin - PO 400 mg BID JAMIE Administration Heparin Sodium (Porcine) 5,000 unit 10/22/18 10:00 10/30/18 09:08 Heparin - SQ 5,000 unit BID JAMIE Administration Dextrose/Sodium Chloride 20 meq in 1,000 mls @ 83 mls/hr 10/22/18 09:45 10/30 00:19 Dextrose 5%-Normal Saline+20 Meq Kcl - IV 83 mls/hr ASDIR JAMIE Administration Daptomycin 700 mg/ Sodium 50 mls @ 50 mls/hr 10/24/18 13:45 10/30/18 11:51 Chloride IVPB 50 mls/hr DAILY [facility]IE Administration Protocol Ceftaroline Fosamil 600 mg/ 100 mls @ 100 mls/hr 10/24/18 14:00 10/30/18 09: 08 Dextrose IVPB 100 mls/hr Q8H-IV JAMIE Administration Protocol Insulin Aspart 1 vial 10/22/18 11:00 10/30/18 11:56 Novolog Vial Sliding Scale - SQ Not Given ACHS [facility]IE Protocol Metoclopramide HCl 10 mg 10/22/18 16:30 10/30/18 09:08 Reglan Injection - IVPUSH 10 mg Q8H [facility]IE Administration Metoprolol Tartrate 12.5 mg 10/22/18 10:00 10/30/18 09:06 Lopressor - PO 12.5 mg BID JAMIE Administration Multi-Ingredient Ointment 1 applic 10/22/18 10:00 10/30/18 09:11 Zinc Oxide TP 1 applic DAILY [facility] Administration Nystatin 1 applic 10/22/18 10:00 10/30/18 09:11 Mycostatin Cream - TP 1 applic DAILY [facility] Administration Ondansetron HCl 4 mg 10/22/18 06:01 Zofran Injection IVPUSH Q8H PRN NAUSEA AND/OR VOMITING Oxycodone HCl 10 mg 10/28/18 11:45 10/30/18 09:05 Oxycontin - PO 10 mg BID [facility] Administration Pantoprazole Sodium 20 mg 10/22/18 10:00 10/30/18 09:05 Protonix - PO 20 mg DAILY [facility]IE Administration [id number] Lungs decreased Abd- soft, not tender No edema PLAN blood cultures positive --MRSA repeat no growth sepsis due to possible necrosis of liver mass if he develops fever , persistent positive blood cultures, may need to drain liver mass/abscess by IR spoke with Dr Gomez-- ?liver ablation changes vs abscess iv antibiotics ID eval noted will dc diabetic diet for now-- will take care of elevated sugars using Novolog- - at this time he needs more nourishment holding off GT placement due to positive blood cultures dietary eval for calorie count if still poor nutritional intake-- consider GT-- pt agreed Problem List - Problems (1) Severe malnutrition Code(s): E43 - UNSPECIFIED SEVERE PROTEIN-CALORIE MALNUTRITION (2) Colon cancer metastasized to liver Code(s): C18.9 - MALIGNANT NEOPLASM OF COLON, UNSPECIFIED; C78.7 - SECONDARY MALIG NEOPLASM OF LIVER AND INTRAHEPATIC BILE DUCT (3) Failure to thrive Code(s): [id number] - Qualifiers: Failure to thrive age range: in adult Qualified Code(s): R62.7 - Adult failure to thrive (4) HTN (hypertension) Code(s): I10 - ESSENTIAL (PRIMARY) HYPERTENSION Qualifiers: Hypertension type: unspecified Qualified Code(s): I10 - Essential (primary ) hypertension (5) Sepsis Code(s): A41.9 - SEPSIS, UNSPECIFIED ORGANISM
--- NOTE | 2018-10-30 18:59 | PN ---
Progress Note, Physician History of Present Illness: Feels well today. Reports eating ok. - Current Medication List Current Medications: Active Medications Acetaminophen (Tylenol -) 325 mg PO QID PRN PRN Reason: PAIN Last Admin: 10/24/18 23:09 Dose: 325 mg Allopurinol (Zyloprim -) 300 mg PO DAILY [facility] Last Admin: 10/30/18 09:07 Dose: 300 mg Cyanocobalamin (Vitamin B12 -) 2,500 mcg PO DAILY AJMIE Last Admin: 10/30/18 09:07 Dose: 2,500 mcg Dronabinol (Marinol -) 2.5 mg PO DAILY JAMIE Last Admin: 10/30/18 09:38 Dose: 2.5 mg Gabapentin (Neurontin -) 400 mg PO BID [facility] Last Admin: 10/30/18 09:07 Dose: 400 mg Heparin Sodium (Porcine) (Heparin -) 5,000 unit SQ BID JAMIE Last Admin: 10/30/18 09:08 Dose: 5,000 unit Dextrose/Sodium Chloride (Dextrose 5%-Normal Saline+20 Meq Kcl -) 20 meq in 1, 000 mls @ 83 mls/hr IV ASDIR JAMIE Last Admin: 10/30/18 00:19 Dose: 83 mls/hr Daptomycin 700 mg/ Sodium (Chloride) 50 mls @ 50 mls/hr IVPB DAILY [facility]; Protocol Last Admin: 10/30/18 11:51 Dose: 50 mls/hr Ceftaroline Fosamil 600 mg/ (Dextrose) 100 mls @ 100 mls/hr IVPB Q8H-IV JAMIE; Protocol Last Admin: 10/30/18 17:58 Dose: 100 mls/hr Insulin Aspart (Novolog Vial Sliding Scale -) 1 vial SQ ACHS [facility]; Protocol Last Admin: 10/30/18 18:04 Dose: Not Given Metoclopramide HCl (Reglan Injection -) 10 mg IVPUSH Q8H JAMIE Last Admin: 10/30/18 17:58 Dose: 10 mg Metoprolol Tartrate (Lopressor -) 12.5 mg PO BID [facility] Last Admin: 10/30/18 09:06 Dose: 12.5 mg Multi-Ingredient Ointment (Zinc Oxide) 1 applic TP DAILY [facility] Last Admin: 10/30/18 09:11 Dose: 1 applic Nystatin (Mycostatin Cream -) 1 applic TP DAILY [facility] Last Admin: 10/30/18 09:11 Dose: 1 applic Ondansetron HCl (Zofran Injection) 4 mg IVPUSH Q8H PRN PRN Reason: NAUSEA AND/OR VOMITING Oxycodone HCl (Oxycontin -) 10 mg PO BID [facility] Last Admin: 10/30/18 09:05 Dose: 10 mg Pantoprazole Sodium (Protonix -) 20 mg PO DAILY [facility] Last Admin: 10/30/18 09:05 Dose: 20 mg - Objective Vital Signs: Vital Signs Temperature 98.8 F 10/30/18 16:20 Pulse Rate 79 10/30/18 16:20 Respiratory Rate 18 10/30/18 16:20 Blood Pressure 103/66 10/30/18 16:20 O2 Sat by Pulse Oximetry (%) 94 L 10/30/18 09:00 Constitutional: Yes: No Distress, Calm Eyes: Yes: Conjunctiva Clear Cardiovascular: Yes: Regular Rate and Rhythm Respiratory: Yes: Regular, CTA Bilaterally Gastrointestinal: Yes: Soft. No: Distention, Tenderness Edema: No Labs: CBC, BMP 10/27/18 07:15 10/27/18 07:15 INR, PTT INR 1.13 (0.83-1.09) H 10/24/18 05:33 Assessment/Plan 72M with colon cancer s/p right hemicolectomy with unresectable rt. lobe of liver metastasis s/p ablation and c1 FOLFIRI 09/06/18,c/b recent MRSA bacteremia and C. diff, now re-admitted with abdominal pain. Found to have increase in size of right hepatic mass that is now complex, with multiple air pockets and recurrent MRSA bacteremia (most recent cultures clear). Plan for possible jejunostomy (if cultures remain clear), ?drainage of liver ? abscesses
[2018-10-31] MEDS: METOCLOPRAMIDE HCL INJECTION 10 MG/2 ML VIAL IVPUSH SCH ×3 (00:40→16:50)
[2018-10-31] MEDS: CEFTAROLINE FOSAMIL ACETATE 600 MG in DEXTROSE 5%-WATER - 100 ML IVPB SCH ×3 (01:37→17:13)
[2018-10-31] MEDS: D5-NS + 20 MEQ KCL - 20 MEQ/1,000 ML INFUS.BAG IV SCH ×3 (02:44→17:14)
[2018-10-31] MEDS: INSULIN SLIDING SCALE (NOVOLOG) 1 VIAL SQ SCH ×4 (06:02→21:40)
[2018-10-31 08:59] LABS: BASO % 0.8 % (0-2.0); EOS % 0.4 % (0-4.5); HEMATOCRIT 29.4 % (35.4-49); HEMOGLOBIN 9.5 GM/dL (11.7-16.9); LYMPH % 15.6 % (8-40); MCH 29.6 pg (25.7-33.7); MCHC 32.3 g/dl (32.0-35.9); MEAN CELL VOLUME 91.6 fl (80-96); MEAN PLT VOLUME 8.8 fl (7.5-11.1); MONO % 1.4 % (3.8-10.2); NEUT % 81.8 % (42.8-82.8); PLATELET COUNT 97 K/MM3 (134-434); WHITE BLOOD COUNT 4.2 K/mm3 (4.0-10.0)
[2018-10-31] MEDS ORDERED: PT OWN MED DRAWER 7, Y5N ONE ×4 (09:34→16:47)
[2018-10-31 10:16] LABS: ALBUMIN 2.2 g/dl (3.4-5.0); BILIRUBIN,TOTAL 0.7 mg/dL (0.2-1); BLOOD UREA NITROGEN 5.6 mg/dL (7-18); CREATININE 1.1 mg/dL (0.55-1.3); POTASSIUM 4.6 mmol/L (3.5-5.1); TOT PROT 5.7 g/dl (6.4-8.2)
[2018-10-31] MEDS: CYANOCOBALAMIN 1,000 MCG TABLET (FP) PO SCH (10:43)
[2018-10-31] MEDS: DAPTOMYCIN 700 MG in SODIUM CHLORIDE 50 ML IVPB SCH (10:44)
[2018-10-31] MEDS: HEPARIN NA (PORCINE) 5,000 UNITS/ML 1ML VIAL SQ SCH ×2 (10:44→21:39)
[2018-10-31] MEDS: GABAPENTIN 400 MG CAPSULE (FP) PO SCH ×2 (10:45→21:40)
[2018-10-31] MEDS: DRONABINOL 2.5 MG CAPSULE PO SCH (10:45)
[2018-10-31] MEDS: oxyCODONE HCL 10 MG SUSTAINED ACTING TABLET PO SCH ×2 (10:46→21:40)
[2018-10-31] MEDS: ALLOPURINOL 300 MG TABLET (FP) PO SCH (10:46)
[2018-10-31] MEDS: PANTOPRAZOLE 20 MG TABLET (FP) PO SCH (10:46)
[2018-10-31] MEDS: METOPROLOL TARTRATE 25 MG TABLET (FP) PO SCH ×2 (10:47→21:40)
[2018-10-31] MEDS: NYSTATIN 100,000 UNIT/GM TOPICAL CREAM 15 GM TUBE TP SCH (10:49)
[2018-10-31] MEDS: ZINC OXIDE 20% TOPICAL OINTMENT 30 GM TUBE TP SCH (10:49)
--- NOTE | 2018-10-31 12:02 | PN ---
Progress Note (short form) - Note Progress Note: pt seen/ examined chart reviewed comfortable Vital Signs Temp 98.3 F 10/31/18 06:40 Pulse 74 10/31/18 06:40 Resp 18 10/31/18 06:40 BP 112/71 10/31/18 06:40 Pulse Ox 94 L 10/30/18 21:00 Intake & Output 10/30/18 10/31/18 10/31/18 23:59 11:59 23:59 Intake Total 900 Output Total 700 Balance -700 900 Intake: IV 800 DEXTROSE 5%-NORMAL SALINE 800 +20 MEQ KCL - 20 meq In 1 ,000 ml @ 83 mls/hr IV ASDIR JAMIE Rx#:[id number] IVPB 100 Output: Urine 700 Void 700 Other: Voiding Method Urinal Bowel Movement No No Active Medications Acetaminophen (Tylenol -) 325 mg PO QID PRN PRN Reason: PAIN Last Admin: 10/24/18 23:09 Dose: 325 mg Allopurinol (Zyloprim -) 300 mg PO DAILY [facility] Last Admin: 10/31/18 10:46 Dose: 300 mg Cyanocobalamin (Vitamin B12 -) 2,500 mcg PO DAILY [facility] Last Admin: 10/31/18 10:43 Dose: 2,500 mcg Dronabinol (Marinol -) 2.5 mg PO DAILY [facility] Last Admin: 10/31/18 10:45 Dose: 2.5 mg Gabapentin (Neurontin -) 400 mg PO BID [facility] Last Admin: 10/31/18 10:45 Dose: 400 mg Heparin Sodium (Porcine) (Heparin -) 5,000 unit SQ BID JAMIE Last Admin: 10/31/18 10:44 Dose: 5,000 unit Dextrose/Sodium Chloride (Dextrose 5%-Normal Saline+20 Meq Kcl -) 20 meq in 1, 000 mls @ 83 mls/hr IV ASDIR JAMIE Last Admin: 10/31/18 10:45 Dose: Not Given Daptomycin 700 mg/ Sodium (Chloride) 50 mls @ 50 mls/hr IVPB DAILY [facility]IE; Protocol Last Admin: 10/31/18 10:44 Dose: 50 mls/hr Ceftaroline Fosamil 600 mg/ (Dextrose) 100 mls @ 100 mls/hr IVPB Q8H-IV JAMIE; Protocol Last Admin: 10/31/18 11:47 Dose: 100 mls/hr Insulin Aspart (Novolog Vial Sliding Scale -) 1 vial SQ ACHS [facility]; Protocol Last Admin: 10/31/18 11:47 Dose: 4 units Metoclopramide HCl (Reglan Injection -) 10 mg IVPUSH Q8H [facility] Last Admin: 10/31/18 10:44 Dose: 10 mg Metoprolol Tartrate (Lopressor -) 12.5 mg PO BID [facility] Last Admin: 10/31/18 10:47 Dose: 12.5 mg Multi-Ingredient Ointment (Zinc Oxide) 1 applic TP DAILY [facility] Last Admin: 10/31/18 10:49 Dose: 1 applic Nystatin (Mycostatin Cream -) 1 applic TP DAILY [facility] Last Admin: 10/31/18 10:49 Dose: 1 applic Ondansetron HCl (Zofran Injection) 4 mg IVPUSH Q8H PRN PRN Reason: NAUSEA AND/OR VOMITING Oxycodone HCl (Oxycontin -) 10 mg PO BID [facility] Last Admin: 10/31/18 10:46 Dose: 10 mg Pantoprazole Sodium (Protonix -) 20 mg PO DAILY [facility] Last Admin: 10/31/18 10:46 Dose: 20 mg CBC, BMP 10/31/18 08:00 10/31/18 08:00 Microbiology 10/28/18 06:30 Blood Culture - Preliminary Blood - Peripheral Venous NO GROWTH OBTAINED AFTER 72 HOURS, INCUBATION TO CONTINUE FOR 2 DAYS. 10/28/18 06:30 Blood Culture - Preliminary Blood - Peripheral Venous NO GROWTH OBTAINED AFTER 72 HOURS, INCUBATION TO CONTINUE FOR 2 DAYS. 10/26/18 05:55 Blood Culture - Final Blood - Peripheral Venous NO GROWTH AFTER 5 DAYS INCUBATION 10/26/18 05:55 Blood Culture - Final Blood - Peripheral Venous NO GROWTH AFTER 5 DAYS INCUBATION Physical awake/ comfortable [id number] Lungs decreased Abd- soft, not tender No edema PLAN blood cultures positive --MRSA repeat no growth sepsis due to possible necrosis of liver mass holding off GT placement due to positive blood cultures ate better today will follow Problem List - Problems (1) Severe malnutrition Code(s): E43 - UNSPECIFIED SEVERE PROTEIN-CALORIE MALNUTRITION (2) Colon cancer metastasized to liver Code(s): C18.9 - MALIGNANT NEOPLASM OF COLON, UNSPECIFIED; C78.7 - SECONDARY MALIG NEOPLASM OF LIVER AND INTRAHEPATIC BILE DUCT (3) Failure to thrive Code(s): UAY9349 - Qualifiers: Failure to thrive age range: in adult Qualified Code(s): R62.7 - Adult failure to thrive (4) HTN (hypertension) Code(s): I10 - ESSENTIAL (PRIMARY) HYPERTENSION Problem List - Problems (1) Sepsis Code(s): A41.9 - SEPSIS, UNSPECIFIED ORGANISM (2) Atrial fibrillation Code(s): I48.91 - UNSPECIFIED ATRIAL FIBRILLATION Qualifiers: Atrial fibrillation type: unspecified Qualified Code(s): I48.91 - Unspecified atrial fibrillation (3) Colon cancer metastasized to liver Code(s): C18.9 - MALIGNANT NEOPLASM OF COLON, UNSPECIFIED; C78.7 - SECONDARY MALIG NEOPLASM OF LIVER AND INTRAHEPATIC BILE DUCT (4) Failure to thrive Code(s): [id number] - Qualifiers: Failure to thrive age range: in adult Qualified Code(s): R62.7 - Adult failure to thrive
--- NOTE | 2018-10-31 13:07 | PN ---
Progress Note, Physician History of Present Illness: AWAKE, ALERT IN BED NO C/O ABDOMINAL PAIN ORA INTAKE BETTER NO C/O LOOSE STOOL NO C/O F/C BLOOD C/S 10/26, 10/28 NO GROWTH - Current Medication List Current Medications: Active Medications Acetaminophen (Tylenol -) 325 mg PO QID PRN PRN Reason: PAIN Last Admin: 10/24/18 23:09 Dose: 325 mg Allopurinol (Zyloprim -) 300 mg PO DAILY [facility] Last Admin: 10/31/18 10:46 Dose: 300 mg Cyanocobalamin (Vitamin B12 -) 2,500 mcg PO DAILY JAMIE Last Admin: 10/31/18 10:43 Dose: 2,500 mcg Dronabinol (Marinol -) 2.5 mg PO DAILY [facility] Last Admin: 10/31/18 10:45 Dose: 2.5 mg Gabapentin (Neurontin -) 400 mg PO BID [facility] Last Admin: 10/31/18 10:45 Dose: 400 mg Heparin Sodium (Porcine) (Heparin -) 5,000 unit SQ BID JAMIE Last Admin: 10/31/18 10:44 Dose: 5,000 unit Dextrose/Sodium Chloride (Dextrose 5%-Normal Saline+20 Meq Kcl -) 20 meq in 1, 000 mls @ 83 mls/hr IV ASDIR JAMIE Last Admin: 10/31/18 10:45 Dose: Not Given Daptomycin 700 mg/ Sodium (Chloride) 50 mls @ 50 mls/hr IVPB DAILY [facility]IE; Protocol Last Admin: 10/31/18 10:44 Dose: 50 mls/hr Ceftaroline Fosamil 600 mg/ (Dextrose) 100 mls @ 100 mls/hr IVPB Q8H-IV JAMIE; Protocol Last Admin: 10/31/18 11:47 Dose: 100 mls/hr Insulin Aspart (Novolog Vial Sliding Scale -) 1 vial SQ ACHS [facility]IE; Protocol Last Admin: 10/31/18 11:47 Dose: 4 units Metoclopramide HCl (Reglan Injection -) 10 mg IVPUSH Q8H [facility] Last Admin: 10/31/18 10:44 Dose: 10 mg Metoprolol Tartrate (Lopressor -) 12.5 mg PO BID [facility] Last Admin: 10/31/18 10:47 Dose: 12.5 mg Multi-Ingredient Ointment (Zinc Oxide) 1 applic TP DAILY [facility] Last Admin: 10/31/18 10:49 Dose: 1 applic Nystatin (Mycostatin Cream -) 1 applic TP DAILY [facility] Last Admin: 10/31/18 10:49 Dose: 1 applic Ondansetron HCl (Zofran Injection) 4 mg IVPUSH Q8H PRN PRN Reason: NAUSEA AND/OR VOMITING Oxycodone HCl (Oxycontin -) 10 mg PO BID [facility] Last Admin: 10/31/18 10:46 Dose: 10 mg Pantoprazole Sodium (Protonix -) 20 mg PO DAILY [facility] Last Admin: 10/31/18 10:46 Dose: 20 mg - Objective Vital Signs: Vital Signs Temperature 98.3 F 10/31/18 06:40 Pulse Rate 74 10/31/18 06:40 Respiratory Rate 18 10/31/18 06:40 Blood Pressure 112/71 10/31/18 06:40 O2 Sat by Pulse Oximetry (%) 94 L 10/30/18 21:00 Constitutional: Yes: No Distress Eyes: Yes: Conjunctiva Clear Cardiovascular: Yes: Regular Rate and Rhythm, S1, S2 Respiratory: Yes: CTA Bilaterally Gastrointestinal: Yes: Normal Bowel Sounds, Soft, Abdomen, Obese. No: Tenderness Edema: No Labs: CBC, BMP 10/31/18 08:00 10/31/18 08:00 INR, PTT INR 1.13 (0.83-1.09) H 10/24/18 05:33 Assessment/Plan RECURRENT MRSA BACTEREMIA ? INFECTED HEPATIC MASS METASTATIC COLON CA REPEAT BC NO GROWTH CONTINUE DAPTOMYCIN/ CEFTAROLINE DAY#8 REPEAT ECHO NO VEGETATIONS
--- NOTE | 2018-10-31 19:48 | PN ---
Progress Note (short form) - Note Progress Note: Patient seen and examined States eating has improved No dentures adds to problems Last Vital Signs Temp Pulse Resp BP Pulse Ox 97.8 F 82 20 114/72 94 L 10/31/18 16:03 10/31/18 16:03 10/31/18 16:03 10/31/18 16:03 10/30/18 21:00 HEENT: anisocoria; left ptosis Cor: RSR, No murmurs, No gallops Lungs:poor inspiratory effort Abd: Soft, Normal bowel sounds, No organomegaly Ext:No significant edema Skin: No rashes, Integument intact CBC, BMP 10/31/18 08:00 10/31/18 08:00 Current Medications Generic Name Dose Route Start Last Admin Trade Name Freq PRN Reason Stop Dose Admin Acetaminophen 325 mg 10/22/18 06:02 10/24/18 23:09 Tylenol - PO 325 mg QID PRN Administration PAIN Allopurinol 300 mg 10/22/18 10:00 10/31/18 10:46 Zyloprim - PO 300 mg DAILY JAMIE Administration Cyanocobalamin 2,500 mcg 10/22/18 10:00 10/31/18 10:43 Vitamin B12 - PO 2,500 mcg DAILY JAMIE Administration Dronabinol 2.5 mg 10/29/18 10:00 10/31/18 10:45 Marinol - PO 2.5 mg DAILY JAMIE Administration Gabapentin 400 mg 10/22/18 10:00 10/31/18 10:45 Neurontin - PO 400 mg BID JAMIE Administration Heparin Sodium (Porcine) 5,000 unit 10/22/18 10:00 10/31/18 10:44 Heparin - SQ 5,000 unit BID JAMIE Administration Dextrose/Sodium Chloride 20 meq in 1,000 mls @ 83 mls/hr 10/22/18 09:45 10/31 17:14 Dextrose 5%-Normal Saline+20 Meq Kcl - IV 83 mls/hr ASDIR JAMIE Administration Daptomycin 700 mg/ Sodium 50 mls @ 50 mls/hr 10/24/18 13:45 10/31/18 10:44 Chloride IVPB 50 mls/hr DAILY JAMIE Administration Protocol Ceftaroline Fosamil 600 mg/ 100 mls @ 100 mls/hr 10/24/18 14:00 10/31/18 17: 13 Dextrose IVPB 100 mls/hr Q8H-IV JAMIE Administration Protocol Insulin Aspart 1 vial 10/22/18 11:00 10/31/18 17:18 Novolog Vial Sliding Scale - SQ Not Given ACHS JAMIE Protocol Metoclopramide HCl 10 mg 10/22/18 16:30 10/31/18 16:50 Reglan Injection - IVPUSH 10 mg Q8H JAMIE Administration Metoprolol Tartrate 12.5 mg 10/22/18 10:00 10/31/18 10:47 Lopressor - PO 12.5 mg BID JAMIE Administration Multi-Ingredient Ointment 1 applic 10/22/18 10:00 10/31/18 10:49 Zinc Oxide TP 1 applic DAILY JAMIE Administration Nystatin 1 applic 10/22/18 10:00 10/31/18 10:49 Mycostatin Cream - TP 1 applic DAILY JAMIE Administration Ondansetron HCl 4 mg 10/22/18 06:01 Zofran Injection IVPUSH Q8H PRN NAUSEA AND/OR VOMITING Oxycodone HCl 10 mg 10/28/18 11:45 10/31/18 10:46 Oxycontin - PO 10 mg BID JAMIE Administration Pantoprazole Sodium 20 mg 10/22/18 10:00 10/31/18 10:46 Protonix - PO 20 mg DAILY JAMIE Administration Impression: Colon ca Liver mets s/p ablation Recurrent MRSA bacteremia Dysphagia Myeloma-s/p transplant Anemia Continuing on antibiotics To review CT scan
[2018-11-01] MEDS: METOCLOPRAMIDE HCL INJECTION 10 MG/2 ML VIAL IVPUSH SCH ×3 (01:55→17:50)
[2018-11-01] MEDS: CEFTAROLINE FOSAMIL ACETATE 600 MG in DEXTROSE 5%-WATER - 100 ML IVPB SCH ×3 (01:55→17:49)
[2018-11-01] MEDS: D5-NS + 20 MEQ KCL - 20 MEQ/1,000 ML INFUS.BAG IV SCH (09:45)
[2018-11-01] MEDS: DAPTOMYCIN 700 MG in SODIUM CHLORIDE 50 ML IVPB SCH (10:00)
[2018-11-01] MEDS: GABAPENTIN 400 MG CAPSULE (FP) PO SCH ×2 (10:40→21:37)
[2018-11-01] MEDS: ZINC OXIDE 20% TOPICAL OINTMENT 30 GM TUBE TP SCH (10:40)
[2018-11-01] MEDS: CYANOCOBALAMIN 1,000 MCG TABLET (FP) PO SCH (11:14)
[2018-11-01] MEDS: PANTOPRAZOLE 20 MG TABLET (FP) PO SCH (11:15)
[2018-11-01] MEDS: DRONABINOL 2.5 MG CAPSULE PO SCH (11:15)
[2018-11-01] MEDS: oxyCODONE HCL 10 MG SUSTAINED ACTING TABLET PO SCH ×2 (11:15→21:37)
[2018-11-01] MEDS: ALLOPURINOL 300 MG TABLET (FP) PO SCH (11:15)
[2018-11-01] MEDS: METOPROLOL TARTRATE 25 MG TABLET (FP) PO SCH ×2 (11:16→21:37)
[2018-11-01] MEDS: HEPARIN NA (PORCINE) 5,000 UNITS/ML 1ML VIAL SQ SCH (11:17)
[2018-11-01] MEDS: NYSTATIN 100,000 UNIT/GM TOPICAL CREAM 15 GM TUBE TP SCH (11:21)
[2018-11-01] MEDS: INSULIN SLIDING SCALE (NOVOLOG) 1 VIAL SQ SCH ×4 (11:30→21:39)
--- NOTE | 2018-11-01 11:34 | PN ---
Progress Note (short form) - Note Progress Note: no abd pain ate 75% breakfast today at bedside pt has no complaints no diarrhea no abd pain Vital Signs - 24 hr 10/31/18 10/31/18 10/31/18 16:03 20:14 22:41 Temperature 97.8 F 98.2 F 98.6 F Pulse Rate 82 84 96 H Respiratory 20 20 18 Rate Blood Pressure 114/72 110/58 L 110/82 11/01/18 06:00 Temperature 98.6 F Pulse Rate 78 Respiratory 20 Rate Blood Pressure 110/70 Current Medications Generic Name Dose Route Start Last Admin Trade Name Freq PRN Reason Stop Dose Admin Acetaminophen 325 mg 10/22/18 06:02 10/24/18 23:09 Tylenol - PO 325 mg QID PRN Administration PAIN Allopurinol 300 mg 10/22/18 10:00 11/01/18 11:15 Zyloprim - PO 300 mg DAILY JAMIE Administration Cyanocobalamin 2,500 mcg 10/22/18 10:00 11/01/18 11:14 Vitamin B12 - PO 2,500 mcg DAILY JAMIE Administration Dronabinol 2.5 mg 10/29/18 10:00 11/01/18 11:15 Marinol - PO 2.5 mg DAILY JAMIE Administration Gabapentin 400 mg 10/22/18 10:00 10/31/18 21:40 Neurontin - PO 400 mg BID JAMIE Administration Heparin Sodium (Porcine) 5,000 unit 10/22/18 10:00 11/01/18 11:17 Heparin - SQ 5,000 unit BID JAMIE Administration Dextrose/Sodium Chloride 20 meq in 1,000 mls @ 83 mls/hr 10/22/18 09:45 11/01 09:45 Dextrose 5%-Normal Saline+20 Meq Kcl - IV Not Given ASDIR JAMIE Daptomycin 700 mg/ Sodium 50 mls @ 50 mls/hr 10/24/18 13:45 11/01/18 10:00 Chloride IVPB 50 mls/hr DAILY JAMIE Administration Protocol Ceftaroline Fosamil 600 mg/ 100 mls @ 100 mls/hr 10/24/18 14:00 11/01/18 11: 42 Dextrose IVPB 100 mls/hr Q8H-IV JAMIE Administration Protocol Insulin Aspart 1 vial 10/22/18 11:00 10/31/18 21:40 Novolog Vial Sliding Scale - SQ Not Given ACHS JAMIE Protocol Metoclopramide HCl 10 mg 10/22/18 16:30 11/01/18 01:55 Reglan Injection - IVPUSH 10 mg Q8H JAMIE Administration Metoprolol Tartrate 12.5 mg 10/22/18 10:00 11/01/18 11:16 Lopressor - PO 12.5 mg BID JAMIE Administration Multi-Ingredient Ointment 1 applic 10/22/18 10:00 10/31/18 10:49 Zinc Oxide TP 1 applic DAILY JAMIE Administration Nystatin 1 applic 10/22/18 10:00 11/01/18 11:21 Mycostatin Cream - TP 1 applic DAILY JAMIE Administration Ondansetron HCl 4 mg 10/22/18 06:01 Zofran Injection IVPUSH Q8H PRN NAUSEA AND/OR VOMITING Oxycodone HCl 10 mg 10/28/18 11:45 11/01/18 11:15 Oxycontin - PO 10 mg BID JAMIE Administration Pantoprazole Sodium 20 mg 10/22/18 10:00 11/01/18 11:15 Protonix - PO 20 mg DAILY JAMIE Administration Laboratory Results - last 24 hr 10/31/18 11/01/18 17:15 06:19 POC Glucometer 145 124 [id number] Lungs decreased Abd- soft, not tender No edema PLAN blood cultures positive --MRSA repeat no growth sepsis due to possible necrosis of liver mass if he develops fever , persistent positive blood cultures, may need to drain liver mass/abscess by IR spoke with Dr Gomez-- ?liver ablation changes vs abscess iv antibiotics ID eval noted will dc diabetic diet for now-- will take care of elevated sugars using Novolog- - at this time he needs more nourishment pt is eating better-- may not need GT at this time ID follow up with regards to antibiotics if still poor nutritional intake-- consider GT-- pt agreed Problem List - Problems (1) Severe malnutrition Code(s): E43 - UNSPECIFIED SEVERE PROTEIN-CALORIE MALNUTRITION (2) Colon cancer metastasized to liver Code(s): C18.9 - MALIGNANT NEOPLASM OF COLON, UNSPECIFIED; C78.7 - SECONDARY MALIG NEOPLASM OF LIVER AND INTRAHEPATIC BILE DUCT (3) Failure to thrive Code(s): [id number] - Qualifiers: Failure to thrive age range: in adult Qualified Code(s): R62.7 - Adult failure to thrive (4) HTN (hypertension) Code(s): I10 - ESSENTIAL (PRIMARY) HYPERTENSION Qualifiers: Hypertension type: unspecified Qualified Code(s): I10 - Essential (primary ) hypertension (5) Sepsis Code(s): A41.9 - SEPSIS, UNSPECIFIED ORGANISM
[2018-11-01] MEDS ORDERED: PT OWN MED DRAWER 7, Y5N ONE ×2 (11:38→17:45)
[2018-11-02] MEDS: METOCLOPRAMIDE HCL INJECTION 10 MG/2 ML VIAL IVPUSH SCH ×2 (00:22→10:50)
[2018-11-02] MEDS ORDERED: PT OWN MED DRAWER 7, Y5N ONE ×3 (01:08→10:46)
[2018-11-02] MEDS: CEFTAROLINE FOSAMIL ACETATE 600 MG in DEXTROSE 5%-WATER - 100 ML IVPB SCH ×3 (01:22→17:57)
[2018-11-02] MEDS: INSULIN SLIDING SCALE (NOVOLOG) 1 VIAL SQ SCH ×4 (06:54→21:35)
[2018-11-02] MEDS: DRONABINOL 2.5 MG CAPSULE PO SCH (10:49)
[2018-11-02] MEDS: ALLOPURINOL 300 MG TABLET (FP) PO SCH (10:49)
[2018-11-02] MEDS: CYANOCOBALAMIN 1,000 MCG TABLET (FP) PO SCH (10:49)
[2018-11-02] MEDS: PANTOPRAZOLE 20 MG TABLET (FP) PO SCH (10:49)
[2018-11-02] MEDS: D5-NS + 20 MEQ KCL - 20 MEQ/1,000 ML INFUS.BAG IV SCH ×3 (10:49→21:44)
[2018-11-02] MEDS: oxyCODONE HCL 10 MG SUSTAINED ACTING TABLET PO SCH ×2 (10:49→21:38)
[2018-11-02] MEDS: GABAPENTIN 400 MG CAPSULE (FP) PO SCH ×2 (10:49→21:40)
[2018-11-02] MEDS: METOPROLOL TARTRATE 25 MG TABLET (FP) PO SCH ×2 (10:49→21:39)
[2018-11-02] MEDS: DAPTOMYCIN 700 MG in SODIUM CHLORIDE 50 ML IVPB SCH (10:49)
[2018-11-02] MEDS: ZINC OXIDE 20% TOPICAL OINTMENT 30 GM TUBE TP SCH (10:55)
[2018-11-02] MEDS: NYSTATIN 100,000 UNIT/GM TOPICAL CREAM 15 GM TUBE TP SCH (10:55)
--- NOTE | 2018-11-02 12:22 | PN ---
Progress Note (short form) - Note Progress Note: no abd pain ate most food pt has no complaints no diarrhea no abd pain Vital Signs - 24 hr 11/01/18 11/01/18 11/02/18 17:20 20:32 04:51 Temperature 97.8 F 99 F 98.9 F Pulse Rate 75 100 H 92 H Respiratory 20 20 20 Rate Blood Pressure 107/65 108/60 102/60 Current Medications Generic Name Dose Route Start Last Admin Trade Name Freq PRN Reason Stop Dose Admin Acetaminophen 325 mg 10/22/18 06:02 10/24/18 23:09 Tylenol - PO 325 mg QID PRN Administration PAIN Allopurinol 300 mg 10/22/18 10:00 11/02/18 10:49 Zyloprim - PO 300 mg DAILY JAMIE Administration Cyanocobalamin 2,500 mcg 10/22/18 10:00 11/02/18 10:49 Vitamin B12 - PO 2,500 mcg DAILY JAMIE Administration Dronabinol 2.5 mg 10/29/18 10:00 11/02/18 10:49 Marinol - PO 2.5 mg DAILY JAMIE Administration Gabapentin 400 mg 10/22/18 10:00 11/02/18 10:49 Neurontin - PO 400 mg BID JAMIE Administration Daptomycin 700 mg/ Sodium 50 mls @ 50 mls/hr 10/24/18 13:45 11/02/18 10:49 Chloride IVPB 50 mls/hr DAILY JAMIE Administration Protocol Ceftaroline Fosamil 600 mg/ 100 mls @ 100 mls/hr 10/24/18 14:00 11/02/18 11: 59 Dextrose IVPB 100 mls/hr Q8H-IV JAMIE Administration Protocol Dextrose/Sodium Chloride 20 meq in 1,000 mls @ 70 mls/hr 11/02/18 11:16 11/02 12:00 Dextrose 5%-Normal Saline+20 Meq Kcl - IV 70 mls/hr ASDIR JAMIE Administration Insulin Aspart 1 vial 10/22/18 11:00 11/02/18 12:01 Novolog Vial Sliding Scale - SQ Not Given ACHS JAMIE Protocol Metoclopramide HCl 10 mg 11/02/18 16:30 Reglan - PO TIDAC JAMIE Metoprolol Tartrate 12.5 mg 10/22/18 10:00 11/02/18 10:49 Lopressor - PO 12.5 mg BID JAMIE Administration Multi-Ingredient Ointment 1 applic 10/22/18 10:00 11/02/18 10:55 Zinc Oxide TP 1 applic DAILY JAMIE Administration Nystatin 1 applic 10/22/18 10:00 11/02/18 10:55 Mycostatin Cream - TP 1 applic DAILY JAMIE Administration Ondansetron HCl 4 mg 10/22/18 06:01 Zofran Injection IVPUSH Q8H PRN NAUSEA AND/OR VOMITING Oxycodone HCl 10 mg 10/28/18 11:45 11/02/18 10:49 Oxycontin - PO 10 mg BID JAMIE Administration Pantoprazole Sodium 20 mg 10/22/18 10:00 11/02/18 10:49 Protonix - PO 20 mg DAILY JAMIE Administration Laboratory Results - last 24 hr 11/02/18 06:04 POC Glucometer 111 [id number] Lungs decreased Abd- soft, not tender No edema PLAN blood cultures positive --MRSA repeat no growth sepsis due to possible necrosis of liver mass if he develops fever , persistent positive blood cultures, may need to drain liver mass/abscess by IR spoke with Dr Gomez-- ?liver ablation changes vs abscess iv antibiotics ID eval noted will dc diabetic diet for now-- will take care of elevated sugars using Novolog- - at this time he needs more nourishment pt is eating better-- may not need GT at this time ID follow up with regards to antibiotics if still poor nutritional intake-- consider GT-- pt agreed Problem List - Problems (1) Severe malnutrition Code(s): E43 - UNSPECIFIED SEVERE PROTEIN-CALORIE MALNUTRITION (2) Colon cancer metastasized to liver Code(s): C18.9 - MALIGNANT NEOPLASM OF COLON, UNSPECIFIED; C78.7 - SECONDARY MALIG NEOPLASM OF LIVER AND INTRAHEPATIC BILE DUCT (3) Failure to thrive Code(s): [id number] - Qualifiers: Failure to thrive age range: in adult Qualified Code(s): R62.7 - Adult failure to thrive (4) HTN (hypertension) Code(s): I10 - ESSENTIAL (PRIMARY) HYPERTENSION Qualifiers: Hypertension type: unspecified Qualified Code(s): I10 - Essential (primary ) hypertension (5) Sepsis Code(s): A41.9 - SEPSIS, UNSPECIFIED ORGANISM
[2018-11-02] MEDS: METOCLOPRAMIDE HCL 10 MG TABLET (FP) PO SCH (16:10)
--- NOTE | 2018-11-02 19:03 | PN ---
Progress Note (short form) - Note Progress Note: Patient seen and examined improved Eating better Temp down No abdominal pains Last Vital Signs Temp Pulse Resp BP Pulse Ox 98.0 F 75 20 100/60 94 L 11/02/18 14:35 11/02/18 14:35 11/02/18 14:35 11/02/18 14:35 10/30/18 21:00 HEENT:anisocoria Oropharynx: thrush, improved , minimal coating of tongue Cor: RSR, No murmurs, No gallops Lungs: Clear to P&A Abd: Soft, Normal bowel sounds, No organomegaly Ext:No significant edema Skin: No rashes, Integument intact CBC, BMP 10/31/18 08:00 10/31/18 08:00 Current Medications Generic Name Dose Route Start Last Admin Trade Name Freq PRN Reason Stop Dose Admin Acetaminophen 325 mg 10/22/18 06:02 10/24/18 23:09 Tylenol - PO 325 mg QID PRN Administration PAIN Allopurinol 300 mg 10/22/18 10:00 11/02/18 10:49 Zyloprim - PO 300 mg DAILY JAMIE Administration Cyanocobalamin 2,500 mcg 10/22/18 10:00 11/02/18 10:49 Vitamin B12 - PO 2,500 mcg DAILY JAMIE Administration Dronabinol 2.5 mg 10/29/18 10:00 11/02/18 10:49 Marinol - PO 2.5 mg DAILY JAMIE Administration Gabapentin 400 mg 10/22/18 10:00 11/02/18 10:49 Neurontin - PO 400 mg BID JAMIE Administration Daptomycin 700 mg/ Sodium 50 mls @ 50 mls/hr 10/24/18 13:45 11/02/18 10:49 Chloride IVPB 50 mls/hr DAILY JAMIE Administration Protocol Ceftaroline Fosamil 600 mg/ 100 mls @ 100 mls/hr 10/24/18 14:00 11/02/18 17: 57 Dextrose IVPB 100 mls/hr Q8H-IV JAMIE Administration Protocol Dextrose/Sodium Chloride 20 meq in 1,000 mls @ 70 mls/hr 11/02/18 11:16 11/02 12:00 Dextrose 5%-Normal Saline+20 Meq Kcl - IV 70 mls/hr ASDIR JAMIE Administration Insulin Aspart 1 vial 10/22/18 11:00 11/02/18 16:24 Novolog Vial Sliding Scale - SQ Not Given ACHS JAMIE Protocol Metoclopramide HCl 10 mg 11/02/18 16:30 11/02/18 16:10 Reglan - PO 10 mg TIDAC JAMIE Administration Metoprolol Tartrate 12.5 mg 10/22/18 10:00 11/02/18 10:49 Lopressor - PO 12.5 mg BID JAMIE Administration Multi-Ingredient Ointment 1 applic 10/22/18 10:00 11/02/18 10:55 Zinc Oxide TP 1 applic DAILY JAMIE Administration Nystatin 1 applic 10/22/18 10:00 11/02/18 10:55 Mycostatin Cream - TP 1 applic DAILY JAMIE Administration Ondansetron HCl 4 mg 10/22/18 06:01 Zofran Injection IVPUSH Q8H PRN NAUSEA AND/OR VOMITING Oxycodone HCl 10 mg 10/28/18 11:45 11/02/18 10:49 Oxycontin - PO 10 mg BID JAMIE Administration Pantoprazole Sodium 20 mg 10/22/18 10:00 11/02/18 10:49 Protonix - PO 20 mg DAILY JAMIE Administration MRSA sepsis -recurrent Liver mets from colon ca - s/p ablation --? necrotic area s/p ablation Dysphagia Myeloma - s/p transplant Continue current treatment
[2018-11-03] MEDS ORDERED: PT OWN MED DRAWER 7, Y5N ONE ×2 (01:17→02:24)
[2018-11-03] MEDS: CEFTAROLINE FOSAMIL ACETATE 600 MG in DEXTROSE 5%-WATER - 100 ML IVPB SCH ×2 (01:34→10:48)
[2018-11-03] MEDS: INSULIN SLIDING SCALE (NOVOLOG) 1 VIAL SQ SCH ×4 (06:21→21:09)
[2018-11-03] MEDS: METOCLOPRAMIDE HCL 10 MG TABLET (FP) PO SCH ×3 (06:39→17:39)
[2018-11-03 08:10] LABS: ALBUMIN 2.4 g/dl (3.4-5.0); BASO % 0.9 % (0-2.0); BILIRUBIN,TOTAL 0.4 mg/dL (0.2-1); BLOOD UREA NITROGEN 9.1 mg/dL (7-18); CALCIUM 8.7 mg/dL (8.5-10.1); EOS % 2.6 % (0-4.5); HEMATOCRIT 31.2 % (35.4-49); HEMOGLOBIN 10.1 GM/dL (11.7-16.9); LYMPH % 17.4 % (8-40); MCHC 32.3 g/dl (32.0-35.9); MEAN CELL VOLUME 92.7 fl (80-96); MEAN PLT VOLUME 8.4 fl (7.5-11.1); MONO % 9.2 % (3.8-10.2); NEUT % 69.9 % (42.8-82.8); POTASSIUM 4.2 mmol/L (3.5-5.1); RBC 3.36 M/mm3 (4.00-5.60); TOT PROT 5.8 g/dl (6.4-8.2); WHITE BLOOD COUNT 5.5 K/mm3 (4.0-10.0)
[2018-11-03 08:37] LABS: PLATELET COUNT 84 K/MM3 (134-434)
[2018-11-03 09:38] LABS: ANISOCYTOSIS 1+; MACROCYTOSIS 0; PLATELET ESTIMATE DECREASED
[2018-11-03] MEDS: DAPTOMYCIN 700 MG in SODIUM CHLORIDE 50 ML IVPB SCH (10:38)
[2018-11-03] MEDS: METOPROLOL TARTRATE 25 MG TABLET (FP) PO SCH ×2 (10:38→21:08)
[2018-11-03] MEDS: GABAPENTIN 400 MG CAPSULE (FP) PO SCH ×2 (10:47→21:08)
[2018-11-03] MEDS: oxyCODONE HCL 10 MG SUSTAINED ACTING TABLET PO SCH ×2 (10:47→21:07)
[2018-11-03] MEDS: DRONABINOL 2.5 MG CAPSULE PO SCH (10:47)
[2018-11-03] MEDS: PANTOPRAZOLE 20 MG TABLET (FP) PO SCH (10:48)
[2018-11-03] MEDS: ALLOPURINOL 300 MG TABLET (FP) PO SCH (10:48)
[2018-11-03] MEDS: CYANOCOBALAMIN 1,000 MCG TABLET (FP) PO SCH (10:49)
[2018-11-03] MEDS: NYSTATIN 100,000 UNIT/GM TOPICAL CREAM 15 GM TUBE TP SCH (10:53)
[2018-11-03] MEDS: ZINC OXIDE 20% TOPICAL OINTMENT 30 GM TUBE TP SCH (10:54)
--- NOTE | 2018-11-03 11:12 | PN ---
Progress Note, Physician History of Present Illness: AWAKE, ALERT IN BED AMBULATED WITH PT NO C/O ABDOMINAL PAIN ORAL INTAKE BETTER NO C/O LOOSE STOOL NO C/O F/C BLOOD C/S 10/26, 10/28 NO GROWTH - Current Medication List Current Medications: Active Medications Acetaminophen (Tylenol -) 325 mg PO QID PRN PRN Reason: PAIN Last Admin: 10/24/18 23:09 Dose: 325 mg Allopurinol (Zyloprim -) 300 mg PO DAILY [facility] Last Admin: 11/03/18 10:48 Dose: 300 mg Cyanocobalamin (Vitamin B12 -) 2,500 mcg PO DAILY [facility] Last Admin: 11/03/18 10:49 Dose: 2,500 mcg Dronabinol (Marinol -) 2.5 mg PO DAILY [facility] Last Admin: 11/03/18 10:47 Dose: 2.5 mg Gabapentin (Neurontin -) 400 mg PO BID [facility] Last Admin: 11/03/18 10:47 Dose: 400 mg Daptomycin 700 mg/ Sodium (Chloride) 50 mls @ 50 mls/hr IVPB DAILY [facility]; Protocol Last Admin: 11/03/18 10:38 Dose: 50 mls/hr Ceftaroline Fosamil 600 mg/ (Dextrose) 100 mls @ 100 mls/hr IVPB Q8H-IV JAMIE; Protocol Last Admin: 11/03/18 10:48 Dose: 100 mls/hr Dextrose/Sodium Chloride (Dextrose 5%-Normal Saline+20 Meq Kcl -) 20 meq in 1, 000 mls @ 70 mls/hr IV ASDIR [facility] Last Admin: 11/02/18 21:44 Dose: 70 mls/hr Insulin Aspart (Novolog Vial Sliding Scale -) 1 vial SQ ACHS [facility]; Protocol Last Admin: 11/03/18 06:21 Dose: Not Given Metoclopramide HCl (Reglan -) 10 mg PO TIDAC [facility] Last Admin: 11/03/18 06:39 Dose: 10 mg Metoprolol Tartrate (Lopressor -) 12.5 mg PO BID [facility] Last Admin: 11/03/18 10:38 Dose: Not Given Multi-Ingredient Ointment (Zinc Oxide) 1 applic TP DAILY [facility] Last Admin: 11/03/18 10:54 Dose: 1 applic Nystatin (Mycostatin Cream -) 1 applic TP DAILY [facility] Last Admin: 11/03/18 10:53 Dose: 1 applic Ondansetron HCl (Zofran Injection) 4 mg IVPUSH Q8H PRN PRN Reason: NAUSEA AND/OR VOMITING Oxycodone HCl (Oxycontin -) 10 mg PO BID [facility] Last Admin: 11/03/18 10:47 Dose: 10 mg Pantoprazole Sodium (Protonix -) 20 mg PO DAILY [facility] Last Admin: 11/03/18 10:48 Dose: 20 mg - Objective Vital Signs: Vital Signs Temperature 97.6 F 11/03/18 06:00 Pulse Rate 82 11/03/18 06:00 Respiratory Rate 20 11/03/18 06:00 Blood Pressure 102/60 11/03/18 06:00 O2 Sat by Pulse Oximetry (%) 94 L 10/30/18 21:00 Constitutional: Yes: No Distress Eyes: Yes: Conjunctiva Clear Cardiovascular: Yes: Regular Rate and Rhythm, S1, S2 Respiratory: Yes: Diminished Gastrointestinal: Yes: Normal Bowel Sounds, Soft. 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
--- NOTE | 2018-11-03 11:37 | PN ---
Progress Note (short form) - Note Progress Note: no abd pain ate most food pt has no complaints no diarrhea no abd pain walking better Vital Signs - 24 hr 11/02/18 11/02/18 11/03/18 14:35 20:48 06:00 Temperature 98.0 F 98 F 97.6 F Pulse Rate 75 82 Respiratory 20 16 20 Rate Blood Pressure 100/60 101/59 L 102/60 Current Medications Generic Name Dose Route Start Last Admin Trade Name Freq PRN Reason Stop Dose Admin Acetaminophen 325 mg 10/22/18 06:02 10/24/18 23:09 Tylenol - PO 325 mg QID PRN Administration PAIN Allopurinol 300 mg 10/22/18 10:00 11/03/18 10:48 Zyloprim - PO 300 mg DAILY [facility] Administration Cyanocobalamin 2,500 mcg 10/22/18 10:00 11/03/18 10:49 Vitamin B12 - PO 2,500 mcg DAILY [facility] Administration Dronabinol 2.5 mg 10/29/18 10:00 11/03/18 10:47 Marinol - PO 2.5 mg DAILY [facility] Administration Gabapentin 400 mg 10/22/18 10:00 11/03/18 10:47 Neurontin - PO 400 mg BID JAMIE Administration Daptomycin 700 mg/ Sodium 50 mls @ 50 mls/hr 10/24/18 13:45 11/03/18 10:38 Chloride IVPB 50 mls/hr DAILY [facility] Administration Protocol Dextrose/Sodium Chloride 20 meq in 1,000 mls @ 70 mls/hr 11/02/18 11:16 11/02 21:44 Dextrose 5%-Normal Saline+20 Meq Kcl - IV 70 mls/hr ASDIR JAMIE Administration Insulin Aspart 1 vial 10/22/18 11:00 11/03/18 06:21 Novolog Vial Sliding Scale - SQ Not Given ACHS JAMIE Protocol Metoclopramide HCl 10 mg 11/02/18 16:30 11/03/18 06:39 Reglan - PO 10 mg TIDAC J[facility] Administration Metoprolol Tartrate 12.5 mg 10/22/18 10:00 11/03/18 10:38 Lopressor - PO Not Given BID JAMIE Multi-Ingredient Ointment 1 applic 10/22/18 10:00 11/03/18 10:54 Zinc Oxide TP 1 applic DAILY [facility] Administration Nystatin 1 applic 10/22/18 10:00 11/03/18 10:53 Mycostatin Cream - TP 1 applic DAILY [facility] Administration Ondansetron HCl 4 mg 10/22/18 06:01 Zofran Injection IVPUSH Q8H PRN NAUSEA AND/OR VOMITING Oxycodone HCl 10 mg 10/28/18 11:45 11/03/18 10:47 Oxycontin - PO 10 mg BID [facility]IE Administration Pantoprazole Sodium 20 mg 10/22/18 10:00 11/03/18 10:48 Protonix - PO 20 mg DAILY [facility] Administration Laboratory Results - last 24 hr 11/02/18 11/02/18 11/03/18 16:22 21:33 05:44 WBC RBC Hgb Hct MCV MCH MCHC RDW Plt Count MPV Absolute Neuts (auto) Neutrophils % Neutrophils % (Manual) Band Neutrophils % Lymphocytes % Lymphocytes % (Manual) Monocytes % Monocytes % (Manual) Eosinophils % Eosinophils % (Manual) Basophils % Basophils % (Manual) Myelocytes % (Man) Promyelocytes % (Man) Blast Cells % (Manual) Nucleated RBC % Metamyelocytes Hypochromia Platelet Estimate Polychromasia Poikilocytosis Basophilic Stippling Anisocytosis Microcytosis Macrocytosis Sodium Potassium Chloride Carbon Dioxide Anion Gap BUN Creatinine Est GFR (CKD-EPI)AfAm Est GFR (CKD-EPI)NonAf POC Glucometer 133 139 115 Random Glucose Calcium Total Bilirubin AST ALT Alkaline Phosphatase Total Protein Albumin 11/03/18 11/03/18 07:15 07:15 WBC 5.5 RBC 3.36 L Hgb 10.1 L Hct 31.2 L MCV 92.7 MCH 30.0 MCHC 32.3 RDW 21.0 H Plt Count 84 L MPV 8.4 Absolute Neuts (auto) 3.9 Neutrophils % 69.9 Neutrophils % (Manual) 62.4 Band Neutrophils % 2.0 Lymphocytes % 17.4 Lymphocytes % (Manual) 15.8 Monocytes % 9.2 D Monocytes % (Manual) 10 Eosinophils % 2.6 D Eosinophils % (Manual) 4.9 H D Basophils % 0.9 Basophils % (Manual) 2.0 Myelocytes % (Man) 1 D Promyelocytes % (Man) 0 Blast Cells % (Manual) 0 Nucleated RBC % 0 Metamyelocytes 1 D Hypochromia 0 Platelet Estimate Decreased Polychromasia 1+ Poikilocytosis 1+ Basophilic Stippling 1+ Anisocytosis 1+ Microcytosis 0 Macrocytosis 0 Sodium 142 Potassium 4.2 Chloride 108 H Carbon Dioxide 28 Anion Gap 7 L BUN 9.1 Creatinine 1.0 Est GFR (CKD-EPI)AfAm 86.15 Est GFR (CKD-EPI)NonAf 74.34 POC Glucometer Random Glucose 127 H Calcium 8.7 Total Bilirubin 0.4 AST 27 ALT 28 Alkaline Phosphatase 174 H Total Protein 5.8 L Albumin 2.4 L [id number] Lungs decreased Abd- soft, not tender No edema PLAN blood cultures positive --MRSA repeat no growth sepsis due to possible necrosis of liver mass if he develops fever , persistent positive blood cultures, may need to drain liver mass/abscess by IR spoke with Dr Gomez-- he will speak with IR about the liver -?may need to repeat CT scan - will wait to hear from Dr Gomez today iv antibiotics pt is eating better-- may not need GT at this time ID follow up with regards to antibiotics -->spoke with Dr Felix today- we need to find focus of infection . He had completed 4 weeks of iv daptomycin and again had recurrence of MRSA. So will see if he needs aspiration of liver mass? necrosis. No vegetations seen on Echo . if still poor nutritional intake-- consider GT-- pt agreed Problem List - Problems (1) Severe malnutrition Code(s): E43 - UNSPECIFIED SEVERE PROTEIN-CALORIE MALNUTRITION (2) Colon cancer metastasized to liver Code(s): C18.9 - MALIGNANT NEOPLASM OF COLON, UNSPECIFIED; C78.7 - SECONDARY MALIG NEOPLASM OF LIVER AND INTRAHEPATIC BILE DUCT (3) Failure to thrive Code(s): [id number] - Qualifiers: Failure to thrive age range: in adult Qualified Code(s): R62.7 - Adult failure to thrive (4) HTN (hypertension) Code(s): I10 - ESSENTIAL (PRIMARY) HYPERTENSION Qualifiers: Hypertension type: unspecified Qualified Code(s): I10 - Essential (primary ) hypertension (5) Sepsis Code(s): A41.9 - SEPSIS, UNSPECIFIED ORGANISM
[2018-11-03] MEDS: D5-NS + 20 MEQ KCL - 20 MEQ/1,000 ML INFUS.BAG IV SCH ×2 (13:03→17:36)
[2018-11-04] MEDS: INSULIN SLIDING SCALE (NOVOLOG) 1 VIAL SQ SCH ×4 (06:54→21:57)
[2018-11-04] MEDS: METOCLOPRAMIDE HCL 10 MG TABLET (FP) PO SCH ×3 (06:58→17:42)
--- NOTE | 2018-11-04 10:22 | PN ---
Progress Note (short form) - Note Progress Note: Pt seen/examined chart reviewed Walking with PT Eating better now discussed with nursing staff/ PT Abdominal discomfort persists No distress chronic issues Vital Signs Temp 98.1 F 11/04/18 07:00 Pulse 81 11/04/18 07:00 Resp 18 11/04/18 07:00 BP 93/63 11/04/18 07:00 Pulse Ox 95 11/03/18 21:00 Intake & Output 11/03/18 11/03/18 11/04/18 11:59 23:59 11:59 Intake Total 830 1080 Balance 830 1080 Weight 190 lb 11.2 oz 185 lb 9.6 oz Intake: IV 490 980 DEXTROSE 5%-NORMAL SALINE 490 980 +20 MEQ KCL - 20 meq In 1 ,000 ml @ 70 mls/hr IV ASDIR [facility]IE Rx#:[id number] IVPB 100 Oral Supplement 340 Other: Voiding Method Urinal Urinal # Unmeasured Voids Void 2 3 Bowel Movement No Weight Measurement Method Built in [facility] Active Medications Acetaminophen (Tylenol -) 325 mg PO QID PRN PRN Reason: PAIN Last Admin: 10/24/18 23:09 Dose: 325 mg Allopurinol (Zyloprim -) 300 mg PO DAILY [facility] Last Admin: 11/03/18 10:48 Dose: 300 mg Cyanocobalamin (Vitamin B12 -) 2,500 mcg PO DAILY [facility] Last Admin: 11/03/18 10:49 Dose: 2,500 mcg Dronabinol (Marinol -) 2.5 mg PO DAILY [facility] Last Admin: 11/03/18 10:47 Dose: 2.5 mg Gabapentin (Neurontin -) 400 mg PO BID [facility] Last Admin: 11/03/18 21:08 Dose: 400 mg Daptomycin 700 mg/ Sodium (Chloride) 50 mls @ 50 mls/hr IVPB DAILY [facility]; Protocol Last Admin: 11/03/18 10:38 Dose: 50 mls/hr Dextrose/Sodium Chloride (Dextrose 5%-Normal Saline+20 Meq Kcl -) 20 meq in 1, 000 mls @ 70 mls/hr IV ASDIR [facility] Last Admin: 11/03/18 17:36 Dose: 70 mls/hr Insulin Aspart (Novolog Vial Sliding Scale -) 1 vial SQ ACHS [facility]; Protocol Last Admin: 11/04/18 06:54 Dose: Not Given Metoclopramide HCl (Reglan -) 10 mg PO TIDAC [facility] Last Admin: 11/04/18 06:58 Dose: 10 mg Metoprolol Tartrate (Lopressor -) 12.5 mg PO BID [facility] Last Admin: 11/03/18 21:08 Dose: 12.5 mg Multi-Ingredient Ointment (Zinc Oxide) 1 applic TP DAILY [facility] Last Admin: 11/03/18 10:54 Dose: 1 applic Nystatin (Mycostatin Cream -) 1 applic TP DAILY [facility] Last Admin: 11/03/18 10:53 Dose: 1 applic Ondansetron HCl (Zofran Injection) 4 mg IVPUSH Q8H PRN PRN Reason: NAUSEA AND/OR VOMITING Oxycodone HCl (Oxycontin -) 10 mg PO BID [facility] Last Admin: 11/03/18 21:07 Dose: 10 mg Pantoprazole Sodium (Protonix -) 20 mg PO DAILY [facility] Last Admin: 11/03/18 10:48 Dose: 20 mg CBC, BMP 11/03/18 07:15 11/03/18 07:15 Physical Exam [id number] Lungs decreased Abd- soft, mild tenderness --right upper quadrant -- on deep palpation NO R/R No edema PLAN blood cultures positive --MRSA repeat no growth sepsis due to possible necrosis of liver mass if he develops fever , persistent positive blood cultures, may need to drain liver mass/abscess by IR iv antibiotics pt is eating better-- Monitor. will follow Discussed with Nursing staff also Problem List - Problems (1) Sepsis Code(s): A41.9 - SEPSIS, UNSPECIFIED ORGANISM (2) Atrial fibrillation Code(s): I48.91 - UNSPECIFIED ATRIAL FIBRILLATION Qualifiers: Atrial fibrillation type: unspecified Qualified Code(s): I48.91 - Unspecified atrial fibrillation (3) Colon cancer metastasized to liver Code(s): C18.9 - MALIGNANT NEOPLASM OF COLON, UNSPECIFIED; C78.7 - SECONDARY MALIG NEOPLASM OF LIVER AND INTRAHEPATIC BILE DUCT (4) Failure to thrive Code(s): [id number] - Qualifiers: Failure to thrive age range: in adult Qualified Code(s): R62.7 - Adult failure to thrive
[2018-11-04] MEDS ORDERED: PT OWN MED DRAWER 7, Y5N ONE (10:32)
[2018-11-04] MEDS: CYANOCOBALAMIN 1,000 MCG TABLET (FP) PO SCH (10:38)
[2018-11-04] MEDS: DRONABINOL 2.5 MG CAPSULE PO SCH (10:38)
[2018-11-04] MEDS: DAPTOMYCIN 700 MG in SODIUM CHLORIDE 50 ML IVPB SCH (10:38)
[2018-11-04] MEDS: ALLOPURINOL 300 MG TABLET (FP) PO SCH (10:39)
[2018-11-04] MEDS: PANTOPRAZOLE 20 MG TABLET (FP) PO SCH (10:39)
[2018-11-04] MEDS: oxyCODONE HCL 10 MG SUSTAINED ACTING TABLET PO SCH (10:39)
[2018-11-04] MEDS: GABAPENTIN 400 MG CAPSULE (FP) PO SCH ×2 (10:39→21:57)
[2018-11-04] MEDS: METOPROLOL TARTRATE 25 MG TABLET (FP) PO SCH ×2 (10:40→21:57)
[2018-11-04] MEDS: NYSTATIN 100,000 UNIT/GM TOPICAL CREAM 15 GM TUBE TP SCH (10:43)
[2018-11-04] MEDS: ZINC OXIDE 20% TOPICAL OINTMENT 30 GM TUBE TP SCH (10:43)
[2018-11-04] MEDS: D5-NS + 20 MEQ KCL - 20 MEQ/1,000 ML INFUS.BAG IV SCH (17:45)
[2018-11-04] MEDS ORDERED: INSULIN (NOVOLOG) ASPART 100 UNITS/ML 10ML VIAL ONE (18:38)
--- NOTE | 2018-11-04 18:58 | PN ---
Progress Note (short form) - Note Progress Note: Patient seen and examined Continued slow improvement in p.o. intake and physiotherapy. Complains of some right sided pain level of right hip- to monitor for now Last Vital Signs Temp Pulse Resp BP Pulse Ox 98.3 F 84 18 90/69 97 11/04/18 13:55 11/04/18 13:55 11/04/18 13:55 11/04/18 13:55 11/04/18 09:00 Tongue -minimally coated Lungs- rales at bases Cor-RSR Abd-soft Ext- negative CBC, BMP 11/03/18 07:15 11/03/18 07:15 Current Medications Generic Name Dose Route Start Last Admin Trade Name Freq PRN Reason Stop Dose Admin Acetaminophen 325 mg 10/22/18 06:02 10/24/18 23:09 Tylenol - PO 325 mg QID PRN Administration PAIN Allopurinol 300 mg 10/22/18 10:00 11/04/18 10:39 Zyloprim - PO 300 mg DAILY [facility] Administration Cyanocobalamin 2,500 mcg 10/22/18 10:00 11/04/18 10:38 Vitamin B12 - PO 2,500 mcg DAILY [facility] Administration Dronabinol 2.5 mg 10/29/18 10:00 11/04/18 10:38 Marinol - PO 2.5 mg DAILY [facility] Administration Gabapentin 400 mg 10/22/18 10:00 11/04/18 10:39 Neurontin - PO 400 mg BID J[facility]IE Administration Daptomycin 700 mg/ Sodium 50 mls @ 50 mls/hr 10/24/18 13:45 11/04/18 10:38 Chloride IVPB 50 mls/hr DAILY [facility] Administration Protocol Dextrose/Sodium Chloride 20 meq in 1,000 mls @ 70 mls/hr 11/02/18 11:16 11/04 17:45 Dextrose 5%-Normal Saline+20 Meq Kcl - IV 70 mls/hr ASDIR [facility]AMIE Administration Insulin Aspart 1 vial 10/22/18 11:00 11/04/18 17:42 Novolog Vial Sliding Scale - SQ Not Given ACHS J[facility]IE Protocol Metoclopramide HCl 10 mg 11/02/18 16:30 11/04/18 17:42 Reglan - PO 10 mg TIDAC [facility] Administration Metoprolol Tartrate 12.5 mg 10/22/18 10:00 11/04/18 10:40 Lopressor - PO Not Given BID JAMIE Multi-Ingredient Ointment 1 applic 10/22/18 10:00 11/04/18 10:43 Zinc Oxide TP 1 applic DAILY [facility] Administration Nystatin 1 applic 10/22/18 10:00 11/04/18 10:43 Mycostatin Cream - TP 1 applic DAILY [facility] Administration Ondansetron HCl 4 mg 10/22/18 06:01 Zofran Injection IVPUSH Q8H PRN NAUSEA AND/OR VOMITING Pantoprazole Sodium 20 mg 10/22/18 10:00 11/04/18 10:39 Protonix - PO 20 mg DAILY [facility] Administration Impression: Colon ca Liver mets- s/p ablation MRSA bacteremia with recurrence Dysphagia H/O multiple myeloma Plan Current therapy
[2018-11-05] MEDS: INSULIN SLIDING SCALE (NOVOLOG) 1 VIAL SQ SCH ×4 (06:12→22:53)
[2018-11-05] MEDS: METOCLOPRAMIDE HCL 10 MG TABLET (FP) PO SCH ×3 (06:15→16:35)
[2018-11-05] MEDS ORDERED: PT OWN MED DRAWER 7, Y5N ONE (10:34)
[2018-11-05] MEDS: ZINC OXIDE 20% TOPICAL OINTMENT 30 GM TUBE TP SCH (10:46)
[2018-11-05] MEDS: NYSTATIN 100,000 UNIT/GM TOPICAL CREAM 15 GM TUBE TP SCH (10:46)
[2018-11-05] MEDS: ALLOPURINOL 300 MG TABLET (FP) PO SCH (10:47)
[2018-11-05] MEDS: DRONABINOL 2.5 MG CAPSULE PO SCH (10:47)
[2018-11-05] MEDS: PANTOPRAZOLE 20 MG TABLET (FP) PO SCH (10:47)
[2018-11-05] MEDS: CYANOCOBALAMIN 1,000 MCG TABLET (FP) PO SCH (10:47)
[2018-11-05] MEDS: DAPTOMYCIN 700 MG in SODIUM CHLORIDE 50 ML IVPB SCH (10:47)
[2018-11-05] MEDS: METOPROLOL TARTRATE 25 MG TABLET (FP) PO SCH ×2 (10:47→22:47)
[2018-11-05] MEDS: GABAPENTIN 400 MG CAPSULE (FP) PO SCH ×2 (10:48→22:53)
[2018-11-05] MEDS: D5-NS + 20 MEQ KCL - 20 MEQ/1,000 ML INFUS.BAG IV SCH ×2 (10:48→23:57)
--- NOTE | 2018-11-05 11:20 | PN ---
Progress Note (short form) - Note Progress Note: no abd pain ate most food pt has no complaints no diarrhea no abd pain walking better Vital Signs - 24 hr 11/04/18 11/04/18 11/04/18 13:55 21:00 22:00 Temperature 98.3 F 98.6 F Pulse Rate 84 99 H Respiratory 18 20 Rate Blood Pressure 90/69 108/59 L O2 Sat by Pulse 94 L Oximetry (%) 11/05/18 06:23 Temperature 98.1 F Pulse Rate 85 Respiratory 20 Rate Blood Pressure 93/67 O2 Sat by Pulse Oximetry (%) Current Medications Generic Name Dose Route Start Last Admin Trade Name Freq PRN Reason Stop Dose Admin Acetaminophen 325 mg 10/22/18 06:02 10/24/18 23:09 Tylenol - PO 325 mg QID PRN Administration PAIN Allopurinol 300 mg 10/22/18 10:00 11/05/18 10:47 Zyloprim - PO 300 mg DAILY [facility] Administration Cyanocobalamin 2,500 mcg 10/22/18 10:00 11/05/18 10:47 Vitamin B12 - PO 2,500 mcg DAILY [facility] Administration Dronabinol 2.5 mg 10/29/18 10:00 11/05/18 10:47 Marinol - PO 2.5 mg DAILY [facility] Administration Gabapentin 400 mg 10/22/18 10:00 11/05/18 10:48 Neurontin - PO 400 mg BID JAMIE Administration Daptomycin 700 mg/ Sodium 50 mls @ 50 mls/hr 10/24/18 13:45 11/05/18 10:47 Chloride IVPB 50 mls/hr DAILY [facility] Administration Protocol Dextrose/Sodium Chloride 20 meq in 1,000 mls @ 70 mls/hr 11/02/18 11:16 11/05 10:48 Dextrose 5%-Normal Saline+20 Meq Kcl - IV Not Given ASDIR JAMIE Insulin Aspart 1 vial 10/22/18 11:00 11/05/18 06:12 Novolog Vial Sliding Scale - SQ Not Given ACHS JAMIE Protocol Metoclopramide HCl 10 mg 11/02/18 16:30 11/05/18 10:47 Reglan - PO 10 mg TIDAC JAMIE Administration Metoprolol Tartrate 12.5 mg 10/22/18 10:00 11/05/18 10:47 Lopressor - PO 12.5 mg BID JAMIE Administration Multi-Ingredient Ointment 1 applic 10/22/18 10:00 11/05/18 10:46 Zinc Oxide TP 1 applic DAILY [facility] Administration Nystatin 1 applic 10/22/18 10:00 11/05/18 10:46 Mycostatin Cream - TP 1 applic DAILY [facility] Administration Ondansetron HCl 4 mg 10/22/18 06:01 Zofran Injection IVPUSH Q8H PRN NAUSEA AND/OR VOMITING Pantoprazole Sodium 20 mg 10/22/18 10:00 11/05/18 10:47 Protonix - PO 20 mg DAILY [facility] Administration Laboratory Results - last 24 hr 11/04/18 11/04/18 11/04/18 11:53 17:25 21:53 POC Glucometer 174 115 137 [id number] Lungs decreased Abd- soft, not tender No edema PLAN blood cultures positive --MRSA repeat no growth sepsis due to possible necrosis of liver mass if he develops fever , persistent positive blood cultures, may need to drain liver mass/abscess by IR iv antibiotics-->ceftaroline dc pt is eating better-- may not need GT at this time if still poor nutritional intake-- consider GT-- pt agreed Problem List - Problems (1) Severe malnutrition Code(s): E43 - UNSPECIFIED SEVERE PROTEIN-CALORIE MALNUTRITION (2) Colon cancer metastasized to liver Code(s): C18.9 - MALIGNANT NEOPLASM OF COLON, UNSPECIFIED; C78.7 - SECONDARY MALIG NEOPLASM OF LIVER AND INTRAHEPATIC BILE DUCT (3) Failure to thrive Code(s): [id number] - Qualifiers: Failure to thrive age range: in adult Qualified Code(s): R62.7 - Adult failure to thrive (4) HTN (hypertension) Code(s): I10 - ESSENTIAL (PRIMARY) HYPERTENSION Qualifiers: Hypertension type: unspecified Qualified Code(s): I10 - Essential (primary ) hypertension (5) Sepsis Code(s): A41.9 - SEPSIS, UNSPECIFIED ORGANISM
[2018-11-06] MEDS: METOCLOPRAMIDE HCL 10 MG TABLET (FP) PO SCH ×3 (06:03→16:27)
[2018-11-06] MEDS: INSULIN SLIDING SCALE (NOVOLOG) 1 VIAL SQ SCH ×4 (06:09→21:26)
[2018-11-06] MEDS ORDERED: PT OWN MED DRAWER 7, Y5N ONE (10:42)
[2018-11-06] MEDS: DRONABINOL 2.5 MG CAPSULE PO SCH (10:50)
[2018-11-06] MEDS: METOPROLOL TARTRATE 25 MG TABLET (FP) PO SCH ×2 (10:50→21:24)
[2018-11-06] MEDS: ALLOPURINOL 300 MG TABLET (FP) PO SCH (10:51)
[2018-11-06] MEDS: GABAPENTIN 400 MG CAPSULE (FP) PO SCH ×2 (10:51→21:24)
[2018-11-06] MEDS: PANTOPRAZOLE 20 MG TABLET (FP) PO SCH (10:51)
[2018-11-06] MEDS: CYANOCOBALAMIN 1,000 MCG TABLET (FP) PO SCH (10:51)
[2018-11-06] MEDS: ZINC OXIDE 20% TOPICAL OINTMENT 30 GM TUBE TP SCH (10:52)
[2018-11-06] MEDS: NYSTATIN 100,000 UNIT/GM TOPICAL CREAM 15 GM TUBE TP SCH (10:52)
--- NOTE | 2018-11-06 10:58 | PN ---
Progress Note (short form) - Note Progress Note: no abd pain ate most food pt has no complaints no diarrhea no abd pain Vital Signs - 24 hr 11/05/18 11/05/18 11/06/18 21:00 22:00 02:36 Temperature 98.4 F 99.1 F Pulse Rate 99 H 95 H Respiratory 18 18 Rate Blood Pressure 93/48 L 93/61 O2 Sat by Pulse 93 L Oximetry (%) 11/06/18 11/06/18 11/06/18 06:00 09:00 10:00 Temperature 97.4 F L 97.5 F L Pulse Rate 98 H 90 Respiratory 18 20 20 Rate Blood Pressure 126/67 106/60 O2 Sat by Pulse Oximetry (%) 11/06/18 11/06/18 14:21 17:20 Temperature 98.4 F 97.3 F L Pulse Rate 92 H 94 H Respiratory 20 20 Rate Blood Pressure 98/57 L 93/57 L O2 Sat by Pulse Oximetry (%) Current Medications Generic Name Dose Route Start Last Admin Trade Name Freq PRN Reason Stop Dose Admin Acetaminophen 325 mg 10/22/18 06:02 10/24/18 23:09 Tylenol - PO 325 mg QID PRN Administration PAIN Allopurinol 300 mg 10/22/18 10:00 11/06/18 10:51 Zyloprim - PO 300 mg DAILY [facility] Administration Cyanocobalamin 2,500 mcg 10/22/18 10:00 11/06/18 10:51 Vitamin B12 - PO 2,500 mcg DAILY [facility] Administration Dronabinol 2.5 mg 10/29/18 10:00 11/06/18 10:50 Marinol - PO 2.5 mg DAILY [facility] Administration Gabapentin 400 mg 10/22/18 10:00 11/06/18 10:51 Neurontin - PO 400 mg BID JAMIE Administration Dextrose/Sodium Chloride 20 meq in 1,000 mls @ 70 mls/hr 11/02/18 11:16 11/06 15:06 Dextrose 5%-Normal Saline+20 Meq Kcl - IV 70 mls/hr ASDIR JAMIE Administration Daptomycin 700 mg/ Sodium 50 mls @ 50 mls/hr 11/06/18 11:30 11/06/18 12:22 Chloride IVPB 50 mls/hr DAILY [facility] Administration Protocol Insulin Aspart 1 vial 10/22/18 11:00 11/06/18 16:29 Novolog Vial Sliding Scale - SQ Not Given ACHS JAMIE Protocol Metoclopramide HCl 10 mg 11/02/18 16:30 11/06/18 16:27 Reglan - PO 10 mg TIDAC JAMIE Administration Metoprolol Tartrate 12.5 mg 10/22/18 10:00 11/06/18 10:50 Lopressor - PO 12.5 mg BID JAMIE Administration Multi-Ingredient Ointment 1 applic 10/22/18 10:00 11/06/18 10:52 Zinc Oxide TP 1 applic DAILY [facility] Administration Nystatin 1 applic 10/22/18 10:00 11/06/18 10:52 Mycostatin Cream - TP 1 applic DAILY [facility] Administration Ondansetron HCl 4 mg 10/22/18 06:01 Zofran Injection IVPUSH Q8H PRN NAUSEA AND/OR VOMITING Oxycodone HCl 10 mg 11/06/18 11:15 11/06/18 12:22 Oxycontin - PO 10 mg BID JAMIE Administration Pantoprazole Sodium 20 mg 10/22/18 10:00 11/06/18 10:51 Protonix - PO 20 mg DAILY [facility] Administration Laboratory Results - last 24 hr 11/05/18 11/06/18 11/06/18 22:49 06:00 10:53 POC Glucometer 158 130 204 11/06/18 16:28 POC Glucometer 131 [id number] Lungs decreased Abd- soft, not tender No edema PLAN blood cultures positive --MRSA repeat no growth sepsis due to possible necrosis of liver mass if he develops fever , persistent positive blood cultures, may need to drain liver mass/abscess by IR iv antibiotics-->ceftaroline dc pt is eating better-- may not need GT at this time if still poor nutritional intake-- consider GT-- pt agreed Problem List - Problems (1) Severe malnutrition Code(s): E43 - UNSPECIFIED SEVERE PROTEIN-CALORIE MALNUTRITION (2) Colon cancer metastasized to liver Code(s): C18.9 - MALIGNANT NEOPLASM OF COLON, UNSPECIFIED; C78.7 - SECONDARY MALIG NEOPLASM OF LIVER AND INTRAHEPATIC BILE DUCT (3) Failure to thrive Code(s): [id number] - Qualifiers: Failure to thrive age range: in adult Qualified Code(s): R62.7 - Adult failure to thrive (4) HTN (hypertension) Code(s): I10 - ESSENTIAL (PRIMARY) HYPERTENSION Qualifiers: Hypertension type: unspecified Qualified Code(s): I10 - Essential (primary ) hypertension (5) Sepsis Code(s): A41.9 - SEPSIS, UNSPECIFIED ORGANISM
[2018-11-06] MEDS: DAPTOMYCIN 700 MG in SODIUM CHLORIDE 50 ML IVPB SCH (12:22)
[2018-11-06] MEDS: oxyCODONE HCL 10 MG SUSTAINED ACTING TABLET PO SCH ×2 (12:22→21:22)
[2018-11-06] MEDS: D5-NS + 20 MEQ KCL - 20 MEQ/1,000 ML INFUS.BAG IV SCH ×2 (12:23→15:06)
[2018-11-07] MEDS: INSULIN SLIDING SCALE (NOVOLOG) 1 VIAL SQ SCH ×4 (06:24→21:26)
[2018-11-07] MEDS: D5-NS + 20 MEQ KCL - 20 MEQ/1,000 ML INFUS.BAG IV SCH ×2 (06:24→18:02)
[2018-11-07] MEDS: METOCLOPRAMIDE HCL 10 MG TABLET (FP) PO SCH ×3 (06:24→18:02)
[2018-11-07] MEDS ORDERED: PT OWN MED DRAWER 7, Y5N ONE (09:47)
--- NOTE | 2018-11-07 10:57 | PN ---
Progress Note (short form) - Note Progress Note: pt seen/ examined chart reviewed all/fu noted complains of abdominal discomfort- right hip -- still persists Vital Signs Temp 98.1 F 11/07/18 07:40 Pulse 89 11/07/18 07:40 Resp 18 11/07/18 07:40 BP 93/59 L 11/07/18 07:40 Pulse Ox 92 L 11/06/18 21:00 Intake & Output 11/06/18 11/06/18 11/07/18 11:59 23:59 11:59 Intake Total 670 1410 490 Balance 670 1410 490 Weight 190 lb 1.6 oz 187 lb 2 oz Intake: IV 490 1120 490 DEXTROSE 5%-NORMAL SALINE 490 1120 490 +20 MEQ KCL - 20 meq In 1 ,000 ml @ 70 mls/hr IV ASDIR JAMIE Rx#:[id number] IVPB 50 0 Oral 180 240 Other: Voiding Method Urinal Urinal Urinal # Unmeasured Voids Void 1 Bowel Movement Yes: exlarge Yes # Bowel Movements 1 Weight Measurement Method Built in [facility] Active Medications Acetaminophen (Tylenol -) 325 mg PO QID PRN PRN Reason: PAIN Last Admin: 10/24/18 23:09 Dose: 325 mg Allopurinol (Zyloprim -) 300 mg PO DAILY [facility] Last Admin: 11/06/18 10:51 Dose: 300 mg Cyanocobalamin (Vitamin B12 -) 2,500 mcg PO DAILY JAMIE Last Admin: 11/06/18 10:51 Dose: 2,500 mcg Dronabinol (Marinol -) 2.5 mg PO DAILY JAMIE Last Admin: 11/06/18 10:50 Dose: 2.5 mg Gabapentin (Neurontin -) 400 mg PO BID JAMIE Last Admin: 11/06/18 21:24 Dose: 400 mg Dextrose/Sodium Chloride (Dextrose 5%-Normal Saline+20 Meq Kcl -) 20 meq in 1, 000 mls @ 70 mls/hr IV ASDIR JAMIE Last Admin: 11/07/18 06:24 Dose: 70 mls/hr Daptomycin 700 mg/ Sodium (Chloride) 50 mls @ 50 mls/hr IVPB DAILY [facility]; Protocol Last Admin: 11/06/18 12:22 Dose: 50 mls/hr Insulin Aspart (Novolog Vial Sliding Scale -) 1 vial SQ ACHS [facility]; Protocol Last Admin: 11/07/18 06:24 Dose: Not Given Metoclopramide HCl (Reglan -) 10 mg PO TIDAC [facility] Last Admin: 11/07/18 06:24 Dose: 10 mg Metoprolol Tartrate (Lopressor -) 12.5 mg PO BID [facility] Last Admin: 11/06/18 21:24 Dose: 12.5 mg Multi-Ingredient Ointment (Zinc Oxide) 1 applic TP DAILY [facility] Last Admin: 11/06/18 10:52 Dose: 1 applic Nystatin (Mycostatin Cream -) 1 applic TP DAILY [facility] Last Admin: 11/06/18 10:52 Dose: 1 applic Ondansetron HCl (Zofran Injection) 4 mg IVPUSH Q8H PRN PRN Reason: NAUSEA AND/OR VOMITING Oxycodone HCl (Oxycontin -) 10 mg PO BID [facility] Last Admin: 11/06/18 21:22 Dose: 10 mg Pantoprazole Sodium (Protonix -) 20 mg PO DAILY [facility] Last Admin: 11/06/18 10:51 Dose: 20 mg CBC, BMP 11/03/18 07:15 11/03/18 07:15 Physical Exam . Awake/ comfortable. [id number] Lungs decreased Abd- soft, mild tenderness right side No r/r bs + No edema PLAN Clinically6 looks better continue present care overall condition remains gaurded abx per i/d daily oob - chair PT Will follow Problem List - Problems (1) Sepsis Code(s): A41.9 - SEPSIS, UNSPECIFIED ORGANISM (2) Atrial fibrillation Code(s): I48.91 - UNSPECIFIED ATRIAL FIBRILLATION Qualifiers: Atrial fibrillation type: unspecified Qualified Code(s): I48.91 - Unspecified atrial fibrillation (3) Colon cancer metastasized to liver Code(s): C18.9 - MALIGNANT NEOPLASM OF COLON, UNSPECIFIED; C78.7 - SECONDARY MALIG NEOPLASM OF LIVER AND INTRAHEPATIC BILE DUCT (4) Failure to thrive Code(s): LSL1903 - Qualifiers: Failure to thrive age range: in adult Qualified Code(s): R62.7 - Adult failure to thrive
[2018-11-07] MEDS: GABAPENTIN 400 MG CAPSULE (FP) PO SCH ×2 (10:59→21:23)
[2018-11-07] MEDS: DRONABINOL 2.5 MG CAPSULE PO SCH (10:59)
[2018-11-07] MEDS: DAPTOMYCIN 700 MG in SODIUM CHLORIDE 50 ML IVPB SCH (10:59)
[2018-11-07] MEDS: CYANOCOBALAMIN 1,000 MCG TABLET (FP) PO SCH (10:59)
[2018-11-07] MEDS: METOPROLOL TARTRATE 25 MG TABLET (FP) PO SCH ×2 (11:00→21:23)
[2018-11-07] MEDS: PANTOPRAZOLE 20 MG TABLET (FP) PO SCH (11:00)
[2018-11-07] MEDS: ALLOPURINOL 300 MG TABLET (FP) PO SCH (11:01)
[2018-11-07] MEDS: oxyCODONE HCL 10 MG SUSTAINED ACTING TABLET PO SCH ×2 (11:01→21:29)
[2018-11-07] MEDS: NYSTATIN 100,000 UNIT/GM TOPICAL CREAM 15 GM TUBE TP SCH (11:07)
[2018-11-07] MEDS: ZINC OXIDE 20% TOPICAL OINTMENT 30 GM TUBE TP SCH (11:07)
--- NOTE | 2018-11-07 16:57 | PN ---
Physical Exam: SUBJECTIVE: Patient seen and examined. Offers no complaints today. No recent fevers. Says he is eating and tolerating the food. OBJECTIVE: Vital Signs Period Temp Pulse Resp BP Sys/Max Pulse Ox Last 24 Hr 97.3 F-99.0 F 89-96 18-20 93-110/57-60 92-96 GENERAL: The patient is awake, alert, and fully oriented, in no acute distress. EYES: anisicoria. ENT: oropharynx clear without exudates, moist mucous membranes. No thrush seen today. NECK: supple. LUNGS: R at the bases HEART: Regular rate and rhythm, S1, S2 without murmur, rub or gallop. Incisional scar R upper chest ABDOMEN: Soft, mild tenderness to R side of abdomen, nondistended, normoactive bowel sounds, no guarding EXTREMITIES: 2+ pulses, warm, well-perfused, no edema. NEUROLOGICAL: Cranial nerves II through XII grossly intact. Normal speech Laboratory Results - last 24 hr 11/06/18 11/07/18 11/07/18 21:20 06:22 11:50 POC Glucometer 156 135 192 Active Medications Generic Name Dose Route Start Last Admin Trade Name Freq PRN Reason Stop Dose Admin Acetaminophen 325 mg 10/22/18 06:02 10/24/18 23:09 Tylenol - PO 325 mg QID PRN Administration PAIN Allopurinol 300 mg 10/22/18 10:00 11/07/18 11:01 Zyloprim - PO 300 mg DAILY JAMIE Administration Cyanocobalamin 2,500 mcg 10/22/18 10:00 11/07/18 10:59 Vitamin B12 - PO 2,500 mcg DAILY JAMIE Administration Dronabinol 2.5 mg 10/29/18 10:00 11/07/18 10:59 Marinol - PO 2.5 mg DAILY JAMIE Administration Gabapentin 400 mg 10/22/18 10:00 11/07/18 10:59 Neurontin - PO 400 mg BID JAMIE Administration Dextrose/Sodium Chloride 20 meq in 1,000 mls @ 70 mls/hr 11/02/18 11:16 11/07 06:24 Dextrose 5%-Normal Saline+20 Meq Kcl - IV 70 mls/hr ASDIR JAMIE Administration Daptomycin 700 mg/ Sodium 50 mls @ 50 mls/hr 11/06/18 11:30 11/07/18 10:59 Chloride IVPB 50 mls/hr DAILY JAMIE Administration Protocol Insulin Aspart 1 vial 10/22/18 11:00 11/07/18 11:53 Novolog Vial Sliding Scale - SQ 2 units ACHS JAMIE Administration Protocol Metoclopramide HCl 10 mg 11/02/18 16:30 11/07/18 11:04 Reglan - PO 10 mg TIDAC JAMIE Administration Metoprolol Tartrate 12.5 mg 10/22/18 10:00 11/07/18 11:00 Lopressor - PO 12.5 mg BID JAMIE Administration Multi-Ingredient Ointment 1 applic 10/22/18 10:00 11/07/18 11:07 Zinc Oxide TP 1 applic DAILY JAMIE Administration Nystatin 1 applic 10/22/18 10:00 11/07/18 11:07 Mycostatin Cream - TP 1 applic DAILY JAMIE Administration Ondansetron HCl 4 mg 10/22/18 06:01 Zofran Injection IVPUSH Q8H PRN NAUSEA AND/OR VOMITING Oxycodone HCl 10 mg 11/06/18 11:15 11/07/18 11:01 Oxycontin - PO 10 mg BID JAMIE Administration Pantoprazole Sodium 20 mg 10/22/18 10:00 11/07/18 11:00 Protonix - PO 20 mg DAILY JAMIE Administration ASSESSMENT/PLAN: #Colon Ca #Liver Mets s/p ablation #MRSA bacteremia #Hx of MM -IV abx -if he develops fever , persistent positive blood cultures, may need to drain liver mass/abscess by IR Visit type - Emergency Visit Emergency Visit: Yes ED Registration Date: 10/21/18 Care time: The patient presented to the Emergency Department on the above date and was hospitalized for further evaluation of their emergent condition. - New Patient This patient is new to me today: No - Critical Care Critical Care patient: No ATTENDING PHYSICIAN STATEMENT I saw and evaluated the patient. I reviewed the resident's note and discussed the case with the resident. I agree with the resident's findings and plan as documented. SUBJECTIVE: OBJECTIVE: ASSESSMENT AND PLAN:
--- NOTE | 2018-11-07 19:20 | PN ---
Teaching Attending Note Name of Resident: Hailey Van ATTENDING PHYSICIAN STATEMENT I saw and evaluated the patient. I reviewed the resident's note and discussed the case with the resident. I agree with the resident's findings and plan as documented. SUBJECTIVE: Patient seen and examined Complains of right flank pain Last Vital Signs Temp Pulse Resp BP Pulse Ox 98.6 F 96 H 18 104/60 96 11/07/18 10:00 11/07/18 10:00 11/07/18 10:00 11/07/18 10:00 11/07/18 09:00 HEENT: anisocoroa Oropharynx: thrush, No mucositis Cor: RSR, No murmurs, No gallops Lungs: Clear to P&A right flank pain /tenderness t deep palpation Abd: Soft, Normal bowel sounds, No organomegaly Ext:No significant edema Skin: No rashes, Integument intact CBC, BMP 11/03/18 07:15 11/03/18 07:15 Current Medications Generic Name Dose Route Start Last Admin Trade Name Freq PRN Reason Stop Dose Admin Acetaminophen 325 mg 10/22/18 06:02 10/24/18 23:09 Tylenol - PO 325 mg QID PRN Administration PAIN Allopurinol 300 mg 10/22/18 10:00 11/07/18 11:01 Zyloprim - PO 300 mg DAILY JMAIE Administration Cyanocobalamin 2,500 mcg 10/22/18 10:00 11/07/18 10:59 Vitamin B12 - PO 2,500 mcg DAILY JAMIE Administration Dronabinol 2.5 mg 10/29/18 10:00 11/07/18 10:59 Marinol - PO 2.5 mg DAILY JAMIE Administration Gabapentin 400 mg 10/22/18 10:00 11/07/18 10:59 Neurontin - PO 400 mg BID JAMIE Administration Dextrose/Sodium Chloride 20 meq in 1,000 mls @ 70 mls/hr 11/02/18 11:16 11/07 18:02 Dextrose 5%-Normal Saline+20 Meq Kcl - IV Not Given ASDIR JAMIE Daptomycin 700 mg/ Sodium 50 mls @ 50 mls/hr 11/06/18 11:30 11/07/18 10:59 Chloride IVPB 50 mls/hr DAILY JAMIE Administration Protocol Insulin Aspart 1 vial 10/22/18 11:00 11/07/18 18:02 Novolog Vial Sliding Scale - SQ Not Given ACHS [facility] Protocol Metoclopramide HCl 10 mg 11/02/18 16:30 11/07/18 18:02 Reglan - PO 10 mg TIDAC JAMIE Administration Metoprolol Tartrate 12.5 mg 10/22/18 10:00 11/07/18 11:00 Lopressor - PO 12.5 mg BID JAMIE Administration Multi-Ingredient Ointment 1 applic 10/22/18 10:00 11/07/18 11:07 Zinc Oxide TP 1 applic DAILY JAMIE Administration Nystatin 1 applic 10/22/18 10:00 11/07/18 11:07 Mycostatin Cream - TP 1 applic DAILY JAMIE Administration Ondansetron HCl 4 mg 10/22/18 06:01 Zofran Injection IVPUSH Q8H PRN NAUSEA AND/OR VOMITING Oxycodone HCl 10 mg 11/06/18 11:15 11/07/18 11:01 Oxycontin - PO 10 mg BID JAMIE Administration Pantoprazole Sodium 20 mg 10/22/18 10:00 11/07/18 11:00 Protonix - PO 20 mg DAILY JAMIE Administration Impression: MYeloma -s/p transplant Colon ca Liver Met S/P liver ablation MRSA bacteremia and recurrence Dysphagia improved flank pain Plan: repeat abdominal CT scan continue current therapy OBJECTIVE: ASSESSMENT AND PLAN:
[2018-11-08] MEDS: D5-NS + 20 MEQ KCL - 20 MEQ/1,000 ML INFUS.BAG IV SCH ×3 (04:10→21:25)
[2018-11-08] MEDS: INSULIN SLIDING SCALE (NOVOLOG) 1 VIAL SQ SCH ×4 (06:11→21:56)
[2018-11-08] MEDS: METOCLOPRAMIDE HCL 10 MG TABLET (FP) PO SCH ×3 (06:43→18:04)
[2018-11-08 07:35] LABS: BASO % 0.9 % (0-2.0); EOS % 1.9 % (0-4.5); HEMATOCRIT 30.2 % (35.4-49); HEMOGLOBIN 9.9 GM/dL (11.7-16.9); LYMPH % 17.4 % (8-40); MCH 30.6 pg (25.7-33.7); MCHC 32.7 g/dl (32.0-35.9); MEAN CELL VOLUME 93.5 fl (80-96); MEAN PLT VOLUME 8.8 fl (7.5-11.1); MONO % 8.8 % (3.8-10.2); PLATELET COUNT 71 K/MM3 (134-434); RBC 3.24 M/mm3 (4.00-5.60); RDW 21.6 % (11.9-15.9); WHITE BLOOD COUNT 6.4 K/mm3 (4.0-10.0)
[2018-11-08 09:03] LABS: ALBUMIN 2.4 g/dl (3.4-5.0); BILIRUBIN,TOTAL 0.6 mg/dL (0.2-1); BLOOD UREA NITROGEN 12.1 mg/dL (7-18); CALCIUM 8.6 mg/dL (8.5-10.1); TOT PROT 5.7 g/dl (6.4-8.2)
[2018-11-08] MEDS: CYANOCOBALAMIN 1,000 MCG TABLET (FP) PO SCH (09:05)
[2018-11-08] MEDS: oxyCODONE HCL 10 MG SUSTAINED ACTING TABLET PO SCH ×2 (09:07→21:53)
[2018-11-08] MEDS: DRONABINOL 2.5 MG CAPSULE PO SCH (09:07)
[2018-11-08] MEDS: METOPROLOL TARTRATE 25 MG TABLET (FP) PO SCH ×2 (09:08→21:53)
[2018-11-08] MEDS: PANTOPRAZOLE 20 MG TABLET (FP) PO SCH (09:08)
[2018-11-08] MEDS: GABAPENTIN 400 MG CAPSULE (FP) PO SCH ×2 (09:09→21:53)
[2018-11-08] MEDS: ALLOPURINOL 300 MG TABLET (FP) PO SCH (09:09)
[2018-11-08] MEDS ORDERED: PT OWN MED DRAWER 7, Y5N ONE ×2 (10:00→10:24)
[2018-11-08] MEDS: ZINC OXIDE 20% TOPICAL OINTMENT 30 GM TUBE TP SCH (10:03)
[2018-11-08] MEDS: NYSTATIN 100,000 UNIT/GM TOPICAL CREAM 15 GM TUBE TP SCH (10:03)
--- NOTE | 2018-11-08 10:48 | PN ---
Progress Note (short form) - Note Progress Note: ate some of the breakfast today-- had entire Ensure no diarrhea has flank pain Vital Signs - 24 hr 11/07/18 11/07/18 11/07/18 16:20 21:00 22:00 Temperature 98.1 F 99.2 F Pulse Rate 108 H 99 H Respiratory 18 18 Rate Blood Pressure 92/62 102/55 L O2 Sat by Pulse 92 L Oximetry (%) 11/08/18 06:23 Temperature 98.8 F Pulse Rate 72 Respiratory 18 Rate Blood Pressure 106/66 O2 Sat by Pulse Oximetry (%) Current Medications Generic Name Dose Route Start Last Admin Trade Name Freq PRN Reason Stop Dose Admin Acetaminophen 325 mg 10/22/18 06:02 10/24/18 23:09 Tylenol - PO 325 mg QID PRN Administration PAIN Allopurinol 300 mg 10/22/18 10:00 11/08/18 09:09 Zyloprim - PO 300 mg DAILY JAMIE Administration Cyanocobalamin 2,500 mcg 10/22/18 10:00 11/08/18 09:05 Vitamin B12 - PO 2,500 mcg DAILY JAMIE Administration Dronabinol 2.5 mg 10/29/18 10:00 11/08/18 09:07 Marinol - PO 2.5 mg DAILY JAMIE Administration Gabapentin 400 mg 10/22/18 10:00 11/08/18 09:09 Neurontin - PO 400 mg BID JAMIE Administration Dextrose/Sodium Chloride 20 meq in 1,000 mls @ 70 mls/hr 11/02/18 11:16 11/08 04:10 Dextrose 5%-Normal Saline+20 Meq Kcl - IV 70 mls/hr ASDIR JAMIE Administration Daptomycin 700 mg/ Sodium 50 mls @ 50 mls/hr 11/06/18 11:30 11/08/18 11:00 Chloride IVPB 50 mls/hr DAILY JAMIE Administration Protocol Insulin Aspart 1 vial 10/22/18 11:00 11/08/18 06:11 Novolog Vial Sliding Scale - SQ Not Given ACHS JAMIE Protocol Metoclopramide HCl 10 mg 11/02/18 16:30 11/08/18 06:43 Reglan - PO 10 mg TIDAC JAMIE Administration Metoprolol Tartrate 12.5 mg 10/22/18 10:00 11/08/18 09:08 Lopressor - PO 12.5 mg BID JAMIE Administration Multi-Ingredient Ointment 1 applic 10/22/18 10:00 11/08/18 10:03 Zinc Oxide TP 1 applic DAILY JAMIE Administration Nystatin 1 applic 10/22/18 10:00 11/08/18 10:03 Mycostatin Cream - TP 1 applic DAILY JAMIE Administration Ondansetron HCl 4 mg 10/22/18 06:01 Zofran Injection IVPUSH Q8H PRN NAUSEA AND/OR VOMITING Oxycodone HCl 10 mg 11/06/18 11:15 11/08/18 09:07 Oxycontin - PO 10 mg BID JAMIE Administration Pantoprazole Sodium 20 mg 10/22/18 10:00 11/08/18 09:08 Protonix - PO 20 mg DAILY JAMIE Administration Laboratory Results - last 24 hr 11/07/18 11/07/18 11/07/18 11:50 17:42 21:25 WBC RBC Hgb Hct MCV MCH MCHC RDW Plt Count MPV Absolute Neuts (auto) Neutrophils % Lymphocytes % Monocytes % Eosinophils % Basophils % Nucleated RBC % Sodium Potassium Chloride Carbon Dioxide Anion Gap BUN Creatinine Est GFR (CKD-EPI)AfAm Est GFR (CKD-EPI)NonAf POC Glucometer 192 137 166 Random Glucose Calcium Total Bilirubin AST ALT Alkaline Phosphatase Creatine Kinase Total Protein Albumin 11/08/18 11/08/18 11/08/18 05:51 06:00 06:40 WBC 6.4 RBC 3.24 L Hgb 9.9 L Hct 30.2 L MCV 93.5 MCH 30.6 MCHC 32.7 RDW 21.6 H Plt Count 71 L MPV 8.8 Absolute Neuts (auto) 4.5 Neutrophils % 71.0 Lymphocytes % 17.4 Monocytes % 8.8 Eosinophils % 1.9 Basophils % 0.9 Nucleated RBC % 0 Sodium 140 Potassium 4.0 Chloride 107 Carbon Dioxide 26 Anion Gap 7 L BUN 12.1 Creatinine 1.0 Est GFR (CKD-EPI)AfAm 86.15 Est GFR (CKD-EPI)NonAf 74.34 POC Glucometer 134 Random Glucose 131 H Calcium 8.6 Total Bilirubin 0.6 AST 82 H ALT 80 H Alkaline Phosphatase 249 H Creatine Kinase 30 Total Protein 5.7 L Albumin 2.4 L [id number] Lungs decreased Abd- soft, flank tender- right no edema PLAN blood cultures positive --MRSA repeat no growth sepsis due to possible necrosis of liver mass if he develops fever , persistent positive blood cultures, may need to drain liver mass/abscess by IR iv antibiotics-->ceftaroline dc pt is eating better-- may not need GT at this time for repeat CT abd-- pt c/o flank pain -->reassess liver lesion Problem List - Problems (1) Severe malnutrition Code(s): E43 - UNSPECIFIED SEVERE PROTEIN-CALORIE MALNUTRITION (2) Colon cancer metastasized to liver Code(s): C18.9 - MALIGNANT NEOPLASM OF COLON, UNSPECIFIED; C78.7 - SECONDARY MALIG NEOPLASM OF LIVER AND INTRAHEPATIC BILE DUCT (3) Failure to thrive Code(s): [id number] - Qualifiers: Failure to thrive age range: in adult Qualified Code(s): R62.7 - Adult failure to thrive (4) HTN (hypertension) Code(s): I10 - ESSENTIAL (PRIMARY) HYPERTENSION Qualifiers: Hypertension type: unspecified Qualified Code(s): I10 - Essential (primary ) hypertension (5) Sepsis Code(s): A41.9 - SEPSIS, UNSPECIFIED ORGANISM
[2018-11-08] MEDS: DAPTOMYCIN 700 MG in SODIUM CHLORIDE 50 ML IVPB SCH (11:00)
[2018-11-08] MEDS ORDERED: INSULIN (NOVOLOG) ASPART 100 UNITS/ML 10ML VIAL ONE (11:19)
[2018-11-08 11:53] LABS: ANISOCYTOSIS 1+; MACROCYTOSIS 1+; OVALOCYTE 1+; PLATELET ESTIMATE DECREASED
--- NOTE | 2018-11-08 17:52 | PN ---
Progress Note (short form) - Note Progress Note: Patient seen and examined Complains of right flank pain Better p.o. Last Vital Signs Temp Pulse Resp BP Pulse Ox 98.1 F 82 20 108/68 95 11/08/18 10:00 11/08/18 10:00 11/08/18 10:00 11/08/18 10:00 11/08/18 09:00 HEENT:anisocoria Oropharynx: thrush, Cor: RSR, No murmurs, No gallops Lungs: Clear to P&A Abd: Soft, Normal bowel sounds, No organomegaly, RUQ tenderness Ext:No significant edema Skin: No rashes, Integument intact CBC, BMP 11/08/18 06:40 11/08/18 06:00 Current Medications Generic Name Dose Route Start Last Admin Trade Name Freq PRN Reason Stop Dose Admin Acetaminophen 325 mg 10/22/18 06:02 10/24/18 23:09 Tylenol - PO 325 mg QID PRN Administration PAIN Allopurinol 300 mg 10/22/18 10:00 11/08/18 09:09 Zyloprim - PO 300 mg DAILY JAMIE Administration Cyanocobalamin 2,500 mcg 10/22/18 10:00 11/08/18 09:05 Vitamin B12 - PO 2,500 mcg DAILY JAMIE Administration Dronabinol 2.5 mg 10/29/18 10:00 11/08/18 09:07 Marinol - PO 2.5 mg DAILY JAMIE Administration Gabapentin 400 mg 10/22/18 10:00 11/08/18 09:09 Neurontin - PO 400 mg BID JAMIE Administration Dextrose/Sodium Chloride 20 meq in 1,000 mls @ 70 mls/hr 11/02/18 11:16 11/08 11:23 Dextrose 5%-Normal Saline+20 Meq Kcl - IV Not Given ASDIR JAMIE Daptomycin 700 mg/ Sodium 50 mls @ 50 mls/hr 11/06/18 11:30 11/08/18 11:00 Chloride IVPB 50 mls/hr DAILY JAMIE Administration Protocol Insulin Aspart 1 vial 10/22/18 11:00 11/08/18 16:30 Novolog Vial Sliding Scale - SQ Not Given ACHS JAMIE Protocol Metoclopramide HCl 10 mg 11/02/18 16:30 11/08/18 11:23 Reglan - PO 10 mg TIDAC JAMIE Administration Metoprolol Tartrate 12.5 mg 10/22/18 10:00 11/08/18 09:08 Lopressor - PO 12.5 mg BID JAMIE Administration Multi-Ingredient Ointment 1 applic 10/22/18 10:00 11/08/18 10:03 Zinc Oxide TP 1 applic DAILY JAMIE Administration Nystatin 1 applic 10/22/18 10:00 11/08/18 10:03 Mycostatin Cream - TP 1 applic DAILY JAMIE Administration Ondansetron HCl 4 mg 10/22/18 06:01 Zofran Injection IVPUSH Q8H PRN NAUSEA AND/OR VOMITING Oxycodone HCl 10 mg 11/06/18 11:15 11/08/18 09:07 Oxycontin - PO 10 mg BID JAMIE Administration Pantoprazole Sodium 20 mg 10/22/18 10:00 11/08/18 09:08 Protonix - PO 20 mg DAILY JAMIE Administration Impression: Myeloma- s/p transplant Colon ca Liver mets S/P ablation MRSA sepsis x [address] scan - no change from previous Falling platelets to monitor Continuing current therapy P.T. Nutrition.
[2018-11-09] MEDS: INSULIN SLIDING SCALE (NOVOLOG) 1 VIAL SQ SCH ×4 (06:22→22:02)
[2018-11-09] MEDS: METOCLOPRAMIDE HCL 10 MG TABLET (FP) PO SCH ×3 (06:25→17:25)
[2018-11-09 08:45] LABS: ALBUMIN 2.4 g/dl (3.4-5.0); BILIRUBIN,TOTAL 0.8 mg/dL (0.2-1); BLOOD UREA NITROGEN 8.1 mg/dL (7-18); CALCIUM 8.7 mg/dL (8.5-10.1); CREATININE 0.9 mg/dL (0.55-1.3); POTASSIUM 3.9 mmol/L (3.5-5.1); TOT PROT 5.7 g/dl (6.4-8.2)
[2018-11-09 08:59] LABS: BASO % 0.7 % (0-2.0); EOS % 2.5 % (0-4.5); HEMATOCRIT 29.2 % (35.4-49); HEMOGLOBIN 9.7 GM/dL (11.7-16.9); MCH 30.8 pg (25.7-33.7); MCHC 33.2 g/dl (32.0-35.9); MEAN CELL VOLUME 92.7 fl (80-96); MEAN PLT VOLUME 9.1 fl (7.5-11.1); MONO % 8.7 % (3.8-10.2); NEUT % 76.1 % (42.8-82.8); PLATELET COUNT 73 K/MM3 (134-434); RBC 3.15 M/mm3 (4.00-5.60); RDW 21.2 % (11.9-15.9)
[2018-11-09 09:19] LABS: INR 1.1 (0.83-1.09)
[2018-11-09] MEDS: DRONABINOL 2.5 MG CAPSULE PO SCH (09:43)
[2018-11-09] MEDS: METOPROLOL TARTRATE 25 MG TABLET (FP) PO SCH ×2 (09:43→22:01)
[2018-11-09] MEDS: GABAPENTIN 400 MG CAPSULE (FP) PO SCH ×2 (09:46→22:00)
[2018-11-09] MEDS: oxyCODONE HCL 10 MG SUSTAINED ACTING TABLET PO SCH ×2 (09:46→22:00)
[2018-11-09] MEDS: CYANOCOBALAMIN 1,000 MCG TABLET (FP) PO SCH (09:46)
[2018-11-09] MEDS: ALLOPURINOL 300 MG TABLET (FP) PO SCH (09:47)
[2018-11-09] MEDS: PANTOPRAZOLE 20 MG TABLET (FP) PO SCH (09:47)
[2018-11-09] MEDS: NYSTATIN 100,000 UNIT/GM TOPICAL CREAM 15 GM TUBE TP SCH (09:48)
[2018-11-09] MEDS: ZINC OXIDE 20% TOPICAL OINTMENT 30 GM TUBE TP SCH (09:48)
--- NOTE | 2018-11-09 10:34 | PN ---
Progress Note (short form) - Note Progress Note: ate entire breakfast mild pain in rt flank loose stools after taking contrast Vital Signs - 24 hr 11/08/18 11/08/18 11/09/18 16:30 21:00 06:40 Temperature 98.2 F 98.2 F Pulse Rate 82 80 Respiratory 18 20 Rate Blood Pressure 110/60 118/70 O2 Sat by Pulse 95 Oximetry (%) Current Medications Generic Name Dose Route Start Last Admin Trade Name Freq PRN Reason Stop Dose Admin Acetaminophen 325 mg 10/22/18 06:02 10/24/18 23:09 Tylenol - PO 325 mg QID PRN Administration PAIN Allopurinol 300 mg 10/22/18 10:00 11/09/18 09:47 Zyloprim - PO 300 mg DAILY JAMIE Administration Cyanocobalamin 2,500 mcg 10/22/18 10:00 11/09/18 09:46 Vitamin B12 - PO 2,500 mcg DAILY JAMIE Administration Dronabinol 2.5 mg 10/29/18 10:00 11/09/18 09:43 Marinol - PO 2.5 mg DAILY JAMIE Administration Gabapentin 400 mg 10/22/18 10:00 11/09/18 09:46 Neurontin - PO 400 mg BID JAMIE Administration Dextrose/Sodium Chloride 20 meq in 1,000 mls @ 70 mls/hr 11/02/18 11:16 11/08 21:25 Dextrose 5%-Normal Saline+20 Meq Kcl - IV 70 mls/hr ASDIR JAMIE Administration Daptomycin 700 mg/ Sodium 50 mls @ 50 mls/hr 11/06/18 11:30 11/08/18 11:00 Chloride IVPB 50 mls/hr DAILY JAMIE Administration Protocol Insulin Aspart 1 vial 10/22/18 11:00 11/09/18 06:22 Novolog Vial Sliding Scale - SQ Not Given ACHS JAMIE Protocol Metoclopramide HCl 10 mg 11/02/18 16:30 11/09/18 06:25 Reglan - PO 10 mg TIDAC JAMIE Administration Metoprolol Tartrate 12.5 mg 10/22/18 10:00 11/09/18 09:43 Lopressor - PO 12.5 mg BID JAMIE Administration Multi-Ingredient Ointment 1 applic 10/22/18 10:00 11/09/18 09:48 Zinc Oxide TP 1 applic DAILY JAMIE Administration Nystatin 1 applic 10/22/18 10:00 11/09/18 09:48 Mycostatin Cream - TP 1 applic DAILY JAMIE Administration Ondansetron HCl 4 mg 10/22/18 06:01 Zofran Injection IVPUSH Q8H PRN NAUSEA AND/OR VOMITING Oxycodone HCl 10 mg 11/06/18 11:15 11/09/18 09:46 Oxycontin - PO 10 mg BID JAMIE Administration Pantoprazole Sodium 20 mg 10/22/18 10:00 11/09/18 09:47 Protonix - PO 20 mg DAILY JAMIE Administration Laboratory Results - last 24 hr 11/08/18 11/08/18 11/08/18 06:40 11:16 16:27 WBC RBC Hgb Hct MCV MCH MCHC RDW Plt Count MPV Absolute Neuts (auto) Neutrophils % Lymphocytes % Monocytes % Eosinophils % Basophils % Nucleated RBC % Hypochromia 0 Platelet Estimate Decreased Polychromasia 1+ Poikilocytosis 0 Anisocytosis 1+ Microcytosis 0 Macrocytosis 1+ Ovalocytes 1+ PT with INR INR Sodium Potassium Chloride Carbon Dioxide Anion Gap BUN Creatinine Est GFR (CKD-EPI)AfAm Est GFR (CKD-EPI)NonAf POC Glucometer 178 139 Random Glucose Calcium Total Bilirubin AST ALT Alkaline Phosphatase Total Protein Albumin 11/08/18 11/09/18 11/09/18 21:54 06:22 07:30 WBC 6.0 RBC 3.15 L Hgb 9.7 L Hct 29.2 L MCV 92.7 MCH 30.8 MCHC 33.2 RDW 21.2 H Plt Count 73 L MPV 9.1 Absolute Neuts (auto) 4.6 Neutrophils % 76.1 Lymphocytes % 12.0 D Monocytes % 8.7 Eosinophils % 2.5 Basophils % 0.7 Nucleated RBC % 0 Hypochromia Platelet Estimate Polychromasia Poikilocytosis Anisocytosis Microcytosis Macrocytosis Ovalocytes PT with INR INR Sodium Potassium Chloride Carbon Dioxide Anion Gap BUN Creatinine Est GFR (CKD-EPI)AfAm Est GFR (CKD-EPI)NonAf POC Glucometer 137 143 Random Glucose Calcium Total Bilirubin AST ALT Alkaline Phosphatase Total Protein Albumin 11/09/18 11/09/18 07:30 07:30 WBC RBC Hgb Hct MCV MCH MCHC RDW Plt Count MPV Absolute Neuts (auto) Neutrophils % Lymphocytes % Monocytes % Eosinophils % Basophils % Nucleated RBC % Hypochromia Platelet Estimate Polychromasia Poikilocytosis Anisocytosis Microcytosis Macrocytosis Ovalocytes PT with INR 13.00 INR 1.10 H Sodium 140 Potassium 3.9 Chloride 106 Carbon Dioxide 28 Anion Gap 6 L BUN 8.1 Creatinine 0.9 Est GFR (CKD-EPI)AfAm 97.86 Est GFR (CKD-EPI)NonAf 84.43 POC Glucometer Random Glucose 156 H Calcium 8.7 Total Bilirubin 0.8 AST 89 H ALT 90 H Alkaline Phosphatase 252 H Total Protein 5.7 L Albumin 2.4 L [id number] Lungs decreased Abd- soft, flank tender- right no edema PLAN blood cultures positive --MRSA repeat no growth repeat CT abd/pelvis - same, no significant change in size of mass Platelets trending down-- monitor for now ID follow up with regards to antibiotics Problem List - Problems (1) Severe malnutrition Code(s): E43 - UNSPECIFIED SEVERE PROTEIN-CALORIE MALNUTRITION (2) Colon cancer 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
[2018-11-09] MEDS: D5-NS + 20 MEQ KCL - 20 MEQ/1,000 ML INFUS.BAG IV SCH (11:53)
[2018-11-09] MEDS: DAPTOMYCIN 700 MG in SODIUM CHLORIDE 50 ML IVPB SCH (11:53)
--- NOTE | 2018-11-09 17:39 | PN ---
<Hailey Van - Last Filed: 11/09/18 18:45> Physical Exam: SUBJECTIVE: HEME/ONC Patient seen and examined. Offers no new complaints. Tolerating PO. OBJECTIVE: Vital Signs Period Temp Pulse Resp BP Sys/Max Pulse Ox Last 24 Hr 98.2 F-98.4 F 80-100 20-20 100-118/60-70 95 GENERAL: The patient is awake, alert, and fully oriented, in no acute distress. EYES: anisicoria. ENT: tongue coated. no exudates NECK: supple. LUNGS: decreased breath sounds HEART: Regular rate and rhythm, S1, S2 without murmur, rub or gallop. Incisional scar R upper chest ABDOMEN: Soft, RUQ, R Flank tenderness, nondistended, normoactive bowel sounds, no guarding EXTREMITIES: 2+ pulses, warm, well-perfused, no edema. NEUROLOGICAL: Cranial nerves II through XII grossly intact. Normal speech Laboratory Results - last 24 hr 11/08/18 11/09/18 11/09/18 21:54 06:22 07:30 WBC 6.0 RBC 3.15 L Hgb 9.7 L Hct 29.2 L MCV 92.7 MCH 30.8 MCHC 33.2 RDW 21.2 H Plt Count 73 L MPV 9.1 Absolute Neuts (auto) 4.6 Neutrophils % 76.1 Lymphocytes % 12.0 D Monocytes % 8.7 Eosinophils % 2.5 Basophils % 0.7 Nucleated RBC % 0 PT with INR INR Sodium Potassium Chloride Carbon Dioxide Anion Gap BUN Creatinine Est GFR (CKD-EPI)AfAm Est GFR (CKD-EPI)NonAf POC Glucometer 137 143 Random Glucose Calcium Total Bilirubin AST ALT Alkaline Phosphatase Total Protein Albumin 11/09/18 11/09/18 11/09/18 07:30 07:30 12:11 WBC RBC Hgb Hct MCV MCH MCHC RDW Plt Count MPV Absolute Neuts (auto) Neutrophils % Lymphocytes % Monocytes % Eosinophils % Basophils % Nucleated RBC % PT with INR 13.00 INR 1.10 H Sodium 140 Potassium 3.9 Chloride 106 Carbon Dioxide 28 Anion Gap 6 L BUN 8.1 Creatinine 0.9 Est GFR (CKD-EPI)AfAm 97.86 Est GFR (CKD-EPI)NonAf 84.43 POC Glucometer 183 Random Glucose 156 H Calcium 8.7 Total Bilirubin 0.8 AST 89 H ALT 90 H Alkaline Phosphatase 252 H Total Protein 5.7 L Albumin 2.4 L ASSESSMENT/PLAN: #Colon Ca #Liver Mets s/p ablation #Thrombocytopenia #MRSA bacteremia #Hx of MM -Drop in platelets could be caused by Daptomycin. -Consider changing antibiotics. -Will monitor -if he develops fever , persistent positive blood cultures, may need to drain liver mass/abscess by IR Visit type - Emergency Visit Emergency Visit: Yes ED Registration Date: 10/21/18 Care time: The patient presented to the Emergency Department on the above date and was hospitalized for further evaluation of their emergent condition. - New Patient This patient is new to me today: No - Critical Care Critical Care patient: No ATTENDING PHYSICIAN STATEMENT I saw and evaluated the patient. I reviewed the resident's note and discussed the case with the resident. I agree with the resident's findings and plan as documented. SUBJECTIVE: OBJECTIVE: ASSESSMENT AND PLAN: <Alen Gomez - Last Filed: 11/11/18 08:44> Physical Exam: SUBJECTIVE: Patient seen and examined OBJECTIVE: Vital Signs Period Temp Pulse Resp BP Sys/Max Pulse Ox Last 24 Hr 97.6 F-100.8 F 82-100 18-20 90-114/57-80 96-96 GENERAL: The patient is awake, alert, and fully oriented, in no acute distress. HEAD: Normal with no signs of trauma. EYES: PERRL, extraocular movements intact, sclera anicteric, conjunctiva clear. No ptosis. ENT: Ears normal, nares patent, oropharynx clear without exudates, moist mucous membranes. NECK: Trachea midline, full range of motion, supple. LUNGS: Breath sounds equal, clear to auscultation bilaterally, no wheezes, no crackles, no accessory muscle use. HEART: Regular rate and rhythm, S1, S2 without murmur, rub or gallop. ABDOMEN: Soft, nontender, nondistended, normoactive bowel sounds, no guarding, no rebound, no hepatosplenomegaly, no masses. EXTREMITIES: 2+ pulses, warm, well-perfused, no edema. NEUROLOGICAL: Cranial nerves II through XII grossly intact. Normal speech, gait not observed. PSYCH: Normal mood, normal affect. SKIN: Warm, dry, normal turgor, no rashes or lesions noted Laboratory Results - last 24 hr 11/10/18 11/10/18 11/10/18 06:40 12:26 17:50 Platelet Estimate Decreased Platelet Comment No clumping noted POC Glucometer 139 124 11/10/18 11/11/18 20:49 05:48 Platelet Estimate Platelet Comment POC Glucometer 143 121 Active Medications Generic Name Dose Route Start Last Admin Trade Name Freq PRN Reason Stop Dose Admin Acetaminophen 325 mg 10/22/18 06:02 10/24/18 23:09 Tylenol - PO 325 mg QID PRN Administration PAIN Allopurinol 300 mg 10/22/18 10:00 11/10/18 10:40 Zyloprim - PO 300 mg DAILY JAMIE Administration Benzocaine/Menthol 1 each 11/10/18 11:36 11/11/18 06:16 Cepacol Lozenge - MM 1 each PRN PRN Administration SORE THROAT Cyanocobalamin 2,500 mcg 10/22/18 10:00 11/10/18 10:39 Vitamin B12 - PO 2,500 mcg DAILY JAMIE Administration Dronabinol 2.5 mg 10/29/18 10:00 11/10/18 10:38 Marinol - PO 2.5 mg DAILY JAMIE Administration Gabapentin 400 mg 10/22/18 10:00 11/10/18 21:38 Neurontin - PO 400 mg BID JAMIE Administration Guaifenesin 10 ml 11/10/18 11:36 Robitussin - PO Q4H PRN COUGH Vancomycin HCl 1,250 mg/ 250 mls @ 166.667 mls/hr 11/10/18 13:30 11/11/18 01: 16 Dextrose IVPB 166.667 mls/hr Q12H JAMIE Administration Protocol Insulin Aspart 1 vial 10/22/18 11:00 11/11/18 06:24 Novolog Vial Sliding Scale - SQ Not Given ACHS JAMIE Protocol Metoclopramide HCl 10 mg 11/02/18 16:30 11/11/18 06:16 Reglan - PO 10 mg TIDAC JAMIE Administration Metoprolol Tartrate 12.5 mg 10/22/18 10:00 11/10/18 21:39 Lopressor - PO 12.5 mg BID JAMIE Administration Multi-Ingredient Ointment 1 applic 10/22/18 10:00 11/10/18 10:41 Zinc Oxide TP 1 applic DAILY JAMIE Administration Nystatin 1 applic 10/22/18 10:00 11/10/18 10:41 Mycostatin Cream - TP 1 applic DAILY JAMIE Administration Ondansetron HCl 4 mg 10/22/18 06:01 Zofran Injection IVPUSH Q8H PRN NAUSEA AND/OR VOMITING Oxycodone HCl 10 mg 11/06/18 11:15 11/10/18 21:38 Oxycontin - PO 10 mg BID JAMIE Administration Pantoprazole Sodium 20 mg 10/22/18 10:00 11/10/18 10:40 Protonix - PO 20 mg DAILY JAMIE Administration ASSESSMENT/PLAN: Antibiotics per ID Monitor platelets only at this time . ATTENDING PHYSICIAN STATEMENT I saw and evaluated the patient. I reviewed the resident's note and discussed the case with the resident. I agree with the resident's findings and plan as documented. SUBJECTIVE: OBJECTIVE: ASSESSMENT AND PLAN:
--- NOTE | 2018-11-09 18:31 | PN ---
Teaching Attending Note Name of Resident: Hailey Van ATTENDING PHYSICIAN STATEMENT I saw and evaluated the patient. I reviewed the resident's note and discussed the case with the resident. I agree with the resident's findings and plan as documented. SUBJECTIVE: Patient seen and examined P.O. intake better , but does not like much of mush given to him Using walker and able to get to door of room Last Vital Signs Temp Pulse Resp BP Pulse Ox 98.4 F 100 H 20 100/60 95 11/09/18 15:40 11/09/18 15:40 11/09/18 15:40 11/09/18 15:40 11/08/18 21:00 HEENT:anisocoria Oropharynx: coated tongue Cor: RSR, No murmurs, No gallops Lungs: Clear to P&A Abd: Soft, Normal bowel sounds, No organomegaly Ext:No significant edema Skin: No rashes, Integument intact CBC, BMP 11/09/18 07:30 11/09/18 07:30 Current Medications Generic Name Dose Route Start Last Admin Trade Name Freq PRN Reason Stop Dose Admin Acetaminophen 325 mg 10/22/18 06:02 10/24/18 23:09 Tylenol - PO 325 mg QID PRN Administration PAIN Allopurinol 300 mg 10/22/18 10:00 11/09/18 09:47 Zyloprim - PO 300 mg DAILY JAMIE Administration Cyanocobalamin 2,500 mcg 10/22/18 10:00 11/09/18 09:46 Vitamin B12 - PO 2,500 mcg DAILY JAMIE Administration Dronabinol 2.5 mg 10/29/18 10:00 11/09/18 09:43 Marinol - PO 2.5 mg DAILY JAMIE Administration Gabapentin 400 mg 10/22/18 10:00 11/09/18 09:46 Neurontin - PO 400 mg BID JAMIE Administration Dextrose/Sodium Chloride 20 meq in 1,000 mls @ 70 mls/hr 11/02/18 11:16 11/09 11:53 Dextrose 5%-Normal Saline+20 Meq Kcl - IV 70 mls/hr ASDIR JAMIE Administration Daptomycin 700 mg/ Sodium 50 mls @ 50 mls/hr 11/06/18 11:30 11/09/18 11:53 Chloride IVPB 50 mls/hr DAILY JAMIE Administration Protocol Insulin Aspart 1 vial 10/22/18 11:00 11/09/18 17:17 Novolog Vial Sliding Scale - SQ Not Given ACHS [facility] Protocol Metoclopramide HCl 10 mg 11/02/18 16:30 11/09/18 17:25 Reglan - PO 10 mg TIDAC JAMIE Administration Metoprolol Tartrate 12.5 mg 10/22/18 10:00 11/09/18 09:43 Lopressor - PO 12.5 mg BID JAMIE Administration Multi-Ingredient Ointment 1 applic 10/22/18 10:00 11/09/18 09:48 Zinc Oxide TP 1 applic DAILY JAMIE Administration Nystatin 1 applic 10/22/18 10:00 11/09/18 09:48 Mycostatin Cream - TP 1 applic DAILY JAMIE Administration Ondansetron HCl 4 mg 10/22/18 06:01 Zofran Injection IVPUSH Q8H PRN NAUSEA AND/OR VOMITING Oxycodone HCl 10 mg 11/06/18 11:15 11/09/18 09:46 Oxycontin - PO 10 mg BID JAMIE Administration Pantoprazole Sodium 20 mg 10/22/18 10:00 11/09/18 09:47 Protonix - PO 20 mg DAILY JAMIE Administration Impression: Colon ca - s/p liver met ablation MRSA bacteremia x 2 Dysphagia Anemia Thrombocytopenia Hx of myeoma - s/p transplant Daptomycin can be associated with thrombocytopenia, likeliest offender Need to monitor platelets. OBJECTIVE: ASSESSMENT AND PLAN:
[2018-11-10] MEDS: D5-NS + 20 MEQ KCL - 20 MEQ/1,000 ML INFUS.BAG IV SCH (02:06)
[2018-11-10] MEDS: INSULIN SLIDING SCALE (NOVOLOG) 1 VIAL SQ SCH ×4 (06:22→21:41)
[2018-11-10] MEDS: METOCLOPRAMIDE HCL 10 MG TABLET (FP) PO SCH ×3 (06:26→17:51)
[2018-11-10 07:44] LABS: BASO % 0.7 % (0-2.0); EOS % 2.2 % (0-4.5); HEMATOCRIT 27.5 % (35.4-49); HEMOGLOBIN 9.1 GM/dL (11.7-16.9); LYMPH % 14.5 % (8-40); MCH 30.9 pg (25.7-33.7); MEAN CELL VOLUME 93.6 fl (80-96); MEAN PLT VOLUME 8.5 fl (7.5-11.1); MONO % 9.9 % (3.8-10.2); NEUT % 72.7 % (42.8-82.8); PLATELET COUNT 66 K/MM3 (134-434); RBC 2.94 M/mm3 (4.00-5.60); RDW 21.6 % (11.9-15.9); WHITE BLOOD COUNT 5.4 K/mm3 (4.0-10.0)
[2018-11-10 08:12] LABS: ALBUMIN 2.4 g/dl (3.4-5.0); BILIRUBIN,TOTAL 0.7 mg/dL (0.2-1); BLOOD UREA NITROGEN 9.3 mg/dL (7-18); CALCIUM 8.4 mg/dL (8.5-10.1); POTASSIUM 3.9 mmol/L (3.5-5.1); TOT PROT 5.5 g/dl (6.4-8.2)
[2018-11-10] MEDS ORDERED: guaiFENesin/D-METHORPHAN HB 10 ML UNIT-DOSE CUPS PO ONE (09:15)
[2018-11-10] MEDS ORDERED: PT OWN MED DRAWER 7, Y5N ONE (10:20)
[2018-11-10] MEDS: DAPTOMYCIN 700 MG in SODIUM CHLORIDE 50 ML IVPB SCH (10:34)
[2018-11-10] MEDS: METOPROLOL TARTRATE 25 MG TABLET (FP) PO SCH ×2 (10:35→21:39)
[2018-11-10] MEDS: DRONABINOL 2.5 MG CAPSULE PO SCH (10:38)
[2018-11-10] MEDS: CYANOCOBALAMIN 1,000 MCG TABLET (FP) PO SCH (10:39)
[2018-11-10] MEDS: PANTOPRAZOLE 20 MG TABLET (FP) PO SCH (10:40)
[2018-11-10] MEDS: ALLOPURINOL 300 MG TABLET (FP) PO SCH (10:40)
[2018-11-10] MEDS: oxyCODONE HCL 10 MG SUSTAINED ACTING TABLET PO SCH ×2 (10:40→21:38)
[2018-11-10] MEDS: GABAPENTIN 400 MG CAPSULE (FP) PO SCH ×2 (10:40→21:38)
[2018-11-10] MEDS: NYSTATIN 100,000 UNIT/GM TOPICAL CREAM 15 GM TUBE TP SCH (10:41)
[2018-11-10] MEDS: ZINC OXIDE 20% TOPICAL OINTMENT 30 GM TUBE TP SCH (10:41)
[2018-11-10 10:56] LABS: PLATELET ESTIMATE DECREASED
--- NOTE | 2018-11-10 10:56 | PN ---
Progress Note (short form) - Note Progress Note: ate entire breakfast has a dry cough now no SOB Vital Signs - 24 hr 11/09/18 11/09/18 11/09/18 15:40 16:20 21:00 Temperature 98.4 F 98.1 F Pulse Rate 100 H 89 Respiratory 20 18 Rate Blood Pressure 100/60 90/65 O2 Sat by Pulse 96 Oximetry (%) 11/09/18 11/10/18 22:00 06:35 Temperature 98 F 99.4 F Pulse Rate 88 72 Respiratory 16 20 Rate Blood Pressure 118/72 104/68 O2 Sat by Pulse Oximetry (%) Current Medications Generic Name Dose Route Start Last Admin Trade Name Freq PRN Reason Stop Dose Admin Acetaminophen 325 mg 10/22/18 06:02 10/24/18 23:09 Tylenol - PO 325 mg QID PRN Administration PAIN Allopurinol 300 mg 10/22/18 10:00 11/10/18 10:40 Zyloprim - PO 300 mg DAILY JAMIE Administration Cyanocobalamin 2,500 mcg 10/22/18 10:00 11/10/18 10:39 Vitamin B12 - PO 2,500 mcg DAILY JAMIE Administration Dronabinol 2.5 mg 10/29/18 10:00 11/10/18 10:38 Marinol - PO 2.5 mg DAILY JAMIE Administration Gabapentin 400 mg 10/22/18 10:00 11/10/18 10:40 Neurontin - PO 400 mg BID JAMIE Administration Daptomycin 700 mg/ Sodium 50 mls @ 50 mls/hr 11/06/18 11:30 11/10/18 10:34 Chloride IVPB 50 mls/hr DAILY JAMIE Administration Protocol Insulin Aspart 1 vial 10/22/18 11:00 11/10/18 06:22 Novolog Vial Sliding Scale - SQ Not Given ACHS JAMIE Protocol Metoclopramide HCl 10 mg 11/02/18 16:30 11/10/18 10:39 Reglan - PO 10 mg TIDAC JAMIE Administration Metoprolol Tartrate 12.5 mg 10/22/18 10:00 11/10/18 10:35 Lopressor - PO 12.5 mg BID JAMIE Administration Multi-Ingredient Ointment 1 applic 10/22/18 10:00 11/10/18 10:41 Zinc Oxide TP 1 applic DAILY JAMIE Administration Nystatin 1 applic 10/22/18 10:00 11/10/18 10:41 Mycostatin Cream - TP 1 applic DAILY JAMIE Administration Ondansetron HCl 4 mg 10/22/18 06:01 Zofran Injection IVPUSH Q8H PRN NAUSEA AND/OR VOMITING Oxycodone HCl 10 mg 11/06/18 11:15 11/10/18 10:40 Oxycontin - PO 10 mg BID JAMIE Administration Pantoprazole Sodium 20 mg 10/22/18 10:00 11/10/18 10:40 Protonix - PO 20 mg DAILY JAMIE Administration Laboratory Results - last 24 hr 11/09/18 11/09/18 11/09/18 12:11 17:16 22:00 WBC RBC Hgb Hct MCV MCH MCHC RDW Plt Count MPV Absolute Neuts (auto) Neutrophils % Lymphocytes % Monocytes % Eosinophils % Basophils % Nucleated RBC % Platelet Estimate Platelet Comment Sodium Potassium Chloride Carbon Dioxide Anion Gap BUN Creatinine Est GFR (CKD-EPI)AfAm Est GFR (CKD-EPI)NonAf POC Glucometer 183 145 136 Random Glucose Calcium Total Bilirubin AST ALT Alkaline Phosphatase Total Protein Albumin 11/10/18 11/10/18 11/10/18 05:45 06:40 06:40 WBC 5.4 RBC 2.94 L Hgb 9.1 L Hct 27.5 L MCV 93.6 MCH 30.9 MCHC 33.0 RDW 21.6 H Plt Count 66 L MPV 8.5 Absolute Neuts (auto) 3.9 Neutrophils % 72.7 Lymphocytes % 14.5 D Monocytes % 9.9 Eosinophils % 2.2 Basophils % 0.7 Nucleated RBC % 0 Platelet Estimate Decreased Platelet Comment No clumping noted Sodium 139 Potassium 3.9 Chloride 106 Carbon Dioxide 28 Anion Gap 5 L BUN 9.3 Creatinine 1.0 Est GFR (CKD-EPI)AfAm 86.15 Est GFR (CKD-EPI)NonAf 74.34 POC Glucometer 124 Random Glucose 134 H Calcium 8.4 L Total Bilirubin 0.7 AST 91 H ALT 96 H Alkaline Phosphatase 244 H Total Protein 5.5 L Albumin 2.4 L [id number] Lungs decreased Abd- soft,NT no edema PLAN blood cultures positive --MRSA repeat no growth repeat CT abd/pelvis - same, no significant change in size of mass Platelets trending down-- monitor for now-->likely due to Daptomycin per oncology ID follow up with regards to antibiotics-->spoke with Dr vidales --> may need 2 weeks more of antibiotics-- he will possibly change to vancomycin Dc iv fluids robitussin as needed incentive spirometry no fever Problem List - Problems (1) Severe malnutrition Code(s): E43 - UNSPECIFIED SEVERE PROTEIN-CALORIE MALNUTRITION (2) Colon cancer metastasized to liver Code(s): C18.9 - MALIGNANT NEOPLASM OF COLON, UNSPECIFIED; C78.7 - SECONDARY MALIG NEOPLASM OF LIVER AND INTRAHEPATIC BILE DUCT (3) Failure to thrive Code(s): CVB5884 - Qualifiers: Failure to thrive age range: in adult Qualified Code(s): R62.7 - Adult failure to thrive (4) HTN (hypertension) Code(s): I10 - ESSENTIAL (PRIMARY) HYPERTENSION Qualifiers: Hypertension type: unspecified Qualified Code(s): I10 - Essential (primary ) hypertension (5) Sepsis Code(s): A41.9 - SEPSIS, UNSPECIFIED ORGANISM
[2018-11-10] MEDS ORDERED: INSULIN (NOVOLOG) ASPART 100 UNITS/ML 10ML VIAL ONE (12:20)
[2018-11-10] MEDS: BENZOCAINE/MENTH/CETYLPYRD CL 1 EACH LOZENGE MM PRN (12:30)
--- NOTE | 2018-11-10 13:02 | PN ---
Physical Exam: SUBJECTIVE: Patient seen and examined. Says he developed a dry cough. No other complaints. After noticing b/l eye discharge, patient says his eyes were itching a few days ago. OBJECTIVE: Vital Signs Period Temp Pulse Resp BP Sys/Max Pulse Ox Last 24 Hr 98 F-99.4 F 72-100 16-20 90-118/60-72 96 GENERAL: The patient is awake, alert, and fully oriented, in no acute distress. EYES: anisicoria. B/l clear discharge w/ yellow mucous. no redness. NECK: supple. LUNGS: decreased breath sounds HEART: Regular rate and rhythm, S1, S2 without murmur, rub or gallop. Incisional scar R upper chest ABDOMEN: Soft, RUQ tenderness, nondistended, normoactive bowel sounds, no guarding EXTREMITIES: 2+ pulses, warm, well-perfused, no edema. Laboratory Results - last 24 hr 11/09/18 11/09/18 11/10/18 17:16 22:00 05:45 WBC RBC Hgb Hct MCV MCH MCHC RDW Plt Count MPV Absolute Neuts (auto) Neutrophils % Lymphocytes % Monocytes % Eosinophils % Basophils % Nucleated RBC % Platelet Estimate Platelet Comment Sodium Potassium Chloride Carbon Dioxide Anion Gap BUN Creatinine Est GFR (CKD-EPI)AfAm Est GFR (CKD-EPI)NonAf POC Glucometer 145 136 124 Random Glucose Calcium Total Bilirubin AST ALT Alkaline Phosphatase Total Protein Albumin ASSESSMENT/PLAN: #Colon Ca #Liver Mets s/p ablation #Thrombocytopenia #MRSA bacteremia #Hx of MM -Platelets down to 66 today from 73 -Drop in platelets could be caused by Daptomycin. -Consider changing antibiotics. -HIT abs pending -Will monitor -if he develops fever , persistent positive blood cultures, may need to drain liver mass/abscess by IR -viral conjunctivitis? Visit type - Emergency Visit Emergency Visit: Yes ED Registration Date: 10/21/18 Care time: The patient presented to the Emergency Department on the above date and was hospitalized for further evaluation of their emergent condition. - New Patient This patient is new to me today: No - Critical Care Critical Care patient: No ATTENDING PHYSICIAN STATEMENT I saw and evaluated the patient. I reviewed the resident's note and discussed the case with the resident. I agree with the resident's findings and plan as documented. SUBJECTIVE: OBJECTIVE: ASSESSMENT AND PLAN:
[2018-11-10] MEDS: VANCOMYCIN 1,250 MG in DEXTROSE 5%-WATER - 250 ML IVPB SCH (14:31)
[2018-11-11] MEDS: VANCOMYCIN 1,250 MG in DEXTROSE 5%-WATER - 250 ML IVPB SCH ×2 (01:16→16:50)
[2018-11-11] MEDS: METOCLOPRAMIDE HCL 10 MG TABLET (FP) PO SCH ×3 (06:16→16:51)
[2018-11-11] MEDS: BENZOCAINE/MENTH/CETYLPYRD CL 1 EACH LOZENGE MM PRN (06:16)
[2018-11-11] MEDS: INSULIN SLIDING SCALE (NOVOLOG) 1 VIAL SQ SCH ×4 (06:24→23:00)
[2018-11-11] MEDS: DRONABINOL 2.5 MG CAPSULE PO SCH (11:51)
[2018-11-11] MEDS: CYANOCOBALAMIN 1,000 MCG TABLET (FP) PO SCH (11:51)
[2018-11-11] MEDS: METOPROLOL TARTRATE 25 MG TABLET (FP) PO SCH ×2 (11:51→22:34)
[2018-11-11] MEDS: ALLOPURINOL 300 MG TABLET (FP) PO SCH (11:52)
[2018-11-11] MEDS: NYSTATIN 100,000 UNIT/GM TOPICAL CREAM 15 GM TUBE TP SCH (11:52)
[2018-11-11] MEDS: GABAPENTIN 400 MG CAPSULE (FP) PO SCH ×2 (11:52→22:52)
[2018-11-11] MEDS: oxyCODONE HCL 10 MG SUSTAINED ACTING TABLET PO SCH ×2 (11:53→22:52)
[2018-11-11] MEDS: PANTOPRAZOLE 20 MG TABLET (FP) PO SCH (11:53)
[2018-11-11] MEDS: ZINC OXIDE 20% TOPICAL OINTMENT 30 GM TUBE TP SCH (11:54)
--- NOTE | 2018-11-11 13:28 | PN ---
Progress Note (short form) - Note Progress Note: had a low-grade fever yesterday Coughing still Vital Signs - 24 hr 11/10/18 11/10/18 11/10/18 16:15 21:00 22:00 Temperature 100.8 F H 98.9 F Pulse Rate 86 90 Respiratory 20 18 Rate Blood Pressure 110/80 114/57 L O2 Sat by Pulse 96 Oximetry (%) 11/11/18 11/11/18 01:59 06:00 Temperature 97.8 F 97.6 F Pulse Rate 82 82 Respiratory 20 20 Rate Blood Pressure 92/60 98/60 O2 Sat by Pulse Oximetry (%) Current Medications Generic Name Dose Route Start Last Admin Trade Name Freq PRN Reason Stop Dose Admin Acetaminophen 325 mg 10/22/18 06:02 10/24/18 23:09 Tylenol - PO 325 mg QID PRN Administration PAIN Allopurinol 300 mg 10/22/18 10:00 11/11/18 11:52 Zyloprim - PO 300 mg DAILY JAMIE Administration Benzocaine/Menthol 1 each 11/10/18 11:36 11/11/18 06:16 Cepacol Lozenge - MM 1 each PRN PRN Administration SORE THROAT Cyanocobalamin 2,500 mcg 10/22/18 10:00 11/11/18 11:51 Vitamin B12 - PO 2,500 mcg DAILY JAMIE Administration Dronabinol 2.5 mg 10/29/18 10:00 11/11/18 11:51 Marinol - PO 2.5 mg DAILY JAMIE Administration Gabapentin 400 mg 10/22/18 10:00 11/11/18 11:52 Neurontin - PO 400 mg BID JAMIE Administration Guaifenesin 10 ml 11/10/18 11:36 Robitussin - PO Q4H PRN COUGH Vancomycin HCl 1,250 mg/ 250 mls @ 166.667 mls/hr 11/10/18 13:30 11/11/18 01: 16 Dextrose IVPB 166.667 mls/hr Q12H JAMIE Administration Protocol Insulin Aspart 1 vial 10/22/18 11:00 11/11/18 11:59 Novolog Vial Sliding Scale - SQ Not Given ACHS JAMIE Protocol Metoclopramide HCl 10 mg 11/02/18 16:30 11/11/18 11:54 Reglan - PO 10 mg TIDAC JAMIE Administration Metoprolol Tartrate 12.5 mg 10/22/18 10:00 11/11/18 11:51 Lopressor - PO Not Given BID JAMIE Multi-Ingredient Ointment 1 applic 10/22/18 10:00 11/11/18 11:54 Zinc Oxide TP 1 applic DAILY JAMIE Administration Nystatin 1 applic 10/22/18 10:00 11/11/18 11:52 Mycostatin Cream - TP 1 applic DAILY JAMIE Administration Ondansetron HCl 4 mg 10/22/18 06:01 Zofran Injection IVPUSH Q8H PRN NAUSEA AND/OR VOMITING Oxycodone HCl 10 mg 11/06/18 11:15 11/11/18 11:53 Oxycontin - PO 10 mg BID JAMIE Administration Pantoprazole Sodium 20 mg 10/22/18 10:00 11/11/18 11:53 Protonix - PO 20 mg DAILY JAMIE Administration Laboratory Results - last 24 hr 11/10/18 11/10/18 11/11/18 17:50 20:49 05:48 POC Glucometer 124 143 121 11/11/18 11:56 POC Glucometer 147 [id number] Lungs decreased Abd- soft,NT no edema PLAN blood cultures positive --MRSA repeat no growth repeat CT abd/pelvis - same, no significant change in size of mass Platelets trending down-- monitor for now-->likely due to Daptomycin per oncology ID follow up with regards to antibiotics-->spoke with Dr vidales --> may need 2 weeks more of antibiotics-- he will change to vancomycin Dc iv fluids robitussin as needed incentive spirometry no fever chest x-ray negative cultures redrawn On IV vancomycin Problem List - Problems (1) Severe malnutrition Code(s): E43 - UNSPECIFIED SEVERE PROTEIN-CALORIE MALNUTRITION (2) Colon cancer metastasized to liver Code(s): C18.9 - MALIGNANT NEOPLASM OF COLON, UNSPECIFIED; C78.7 - SECONDARY MALIG NEOPLASM OF LIVER AND INTRAHEPATIC BILE DUCT (3) Failure to thrive Code(s): MVL2651 - Qualifiers: Qualified Code(s): R62.7 - Adult failure to thrive (4) HTN (hypertension) Code(s): I10 - ESSENTIAL (PRIMARY) HYPERTENSION Qualifiers: Qualified Code(s): I10 - Essential (primary) hypertension (5) Sepsis Code(s): A41.9 - SEPSIS, UNSPECIFIED ORGANISM
--- NOTE | 2018-11-11 13:31 | PN ---
Progress Note, Physician History of Present Illness: AWAKE, ALERT IN BED NO C/O ABDOMINAL PAIN NO DIARRHEA ORAL INTAKE BETTER TEMP ELEVATION NOTED - Current Medication List Current Medications: Active Medications Acetaminophen (Tylenol -) 325 mg PO QID PRN PRN Reason: PAIN Last Admin: 10/24/18 23:09 Dose: 325 mg Allopurinol (Zyloprim -) 300 mg PO DAILY [facility] Last Admin: 11/11/18 11:52 Dose: 300 mg Benzocaine/Menthol (Cepacol Lozenge -) 1 each MM PRN PRN PRN Reason: SORE THROAT Last Admin: 11/11/18 06:16 Dose: 1 each Cyanocobalamin (Vitamin B12 -) 2,500 mcg PO DAILY [facility] Last Admin: 11/11/18 11:51 Dose: 2,500 mcg Dronabinol (Marinol -) 2.5 mg PO DAILY [facility] Last Admin: 11/11/18 11:51 Dose: 2.5 mg Gabapentin (Neurontin -) 400 mg PO BID [facility] Last Admin: 11/11/18 11:52 Dose: 400 mg Guaifenesin (Robitussin -) 10 ml PO Q4H PRN PRN Reason: COUGH Vancomycin HCl 1,250 mg/ (Dextrose) 250 mls @ 166.667 mls/hr IVPB Q12H [facility]; Protocol Last Admin: 11/11/18 01:16 Dose: 166.667 mls/hr Insulin Aspart (Novolog Vial Sliding Scale -) 1 vial SQ ACHS [facility]; Protocol Last Admin: 11/11/18 11:59 Dose: Not Given Metoclopramide HCl (Reglan -) 10 mg PO TIDAC [facility] Last Admin: 11/11/18 11:54 Dose: 10 mg Metoprolol Tartrate (Lopressor -) 12.5 mg PO BID [facility] Last Admin: 11/11/18 11:51 Dose: Not Given Multi-Ingredient Ointment (Zinc Oxide) 1 applic TP DAILY [facility] Last Admin: 11/11/18 11:54 Dose: 1 applic Nystatin (Mycostatin Cream -) 1 applic TP DAILY [facility] Last Admin: 11/11/18 11:52 Dose: 1 applic Ondansetron HCl (Zofran Injection) 4 mg IVPUSH Q8H PRN PRN Reason: NAUSEA AND/OR VOMITING Oxycodone HCl (Oxycontin -) 10 mg PO BID [facility] Last Admin: 11/11/18 11:53 Dose: 10 mg Pantoprazole Sodium (Protonix -) 20 mg PO DAILY [facility] Last Admin: 11/11/18 11:53 Dose: 20 mg - Objective Vital Signs: Vital Signs Temperature 97.6 F 11/11/18 06:00 Pulse Rate 82 11/11/18 06:00 Respiratory Rate 20 11/11/18 06:00 Blood Pressure 98/60 11/11/18 06:00 O2 Sat by Pulse Oximetry (%) 96 11/10/18 21:00 Constitutional: Yes: No Distress Eyes: Yes: Conjunctiva Clear Cardiovascular: Yes: Regular Rate and Rhythm, S1, S2 Respiratory: Yes: CTA Bilaterally Gastrointestinal: Yes: Normal Bowel Sounds, Soft. No: Tenderness Labs: CBC, BMP 11/10/18 06:40 11/10/18 06:40 INR, PTT INR 1.10 (0.83-1.09) H 11/09/18 07:30 Assessment/Plan RECURRENT MRSA BACTEREMIA ? INFECTED HEPATIC MASS METASTATIC COLON CA REPEAT BC NO GROWTH SWITCHED TO VANCOMYCIN AWAITING PICC NEEDS ADDITIONAL 9D TX MRSA BACTEREMIA, THEREAFTER RECOMMEND LONGTERM PROHYLACTIC BACTRIM DS DAILY
--- NOTE | 2018-11-11 14:12 | DS ---
Physical Examination Vital Signs: Vital Signs Temperature 97.6 F 11/11/18 06:00 Pulse Rate 82 11/11/18 06:00 Respiratory Rate 20 11/11/18 06:00 Blood Pressure 98/60 11/11/18 06:00 O2 Sat by Pulse Oximetry (%) 96 11/10/18 21:00 Labs: CBC, BMP 11/10/18 06:40 11/10/18 06:40 Discharge Summary Reason For Visit: ABDOMINAL PAIN Current Active Problems Atrial fibrillation (Acute) Colon cancer metastasized to liver (Acute) Failure to thrive (Acute) Family history of malignant neoplasm of colon in first degree relative diagnosed when younger than 60 years of age (Acute) Fatty liver (Acute) Gout (Acute) H/O gastrostomy (Acute) HTN (hypertension) (Acute) Hiatal hernia with gastroesophageal reflux disease and esophagitis (Acute) Paroxysmal atrial fibrillation (Acute) Schatzki's ring of distal esophagus (Acute) Sepsis (Acute) Sepsis (Acute) Severe malnutrition (Acute) Vomiting, persistent, in adult (Acute) Condition: Guarded - Instructions Diet, Activity, Other Instructions: 9 days more Vanco IV and after bactrim ds 1 tab daily for life - Home Medications Comprehensive Discharge Medication List: Ambulatory Orders Gabapentin 400 mg PO BID 10/04/16 Allopurinol 300 mg PO DAILY 10/21/17 Cyanocobalamin (Vitamin B-12) [Vitamin B12] 2,500 mcg PO DAILY 10/21/17 Oxycodone HCl [Oxycontin] 10 mg PO PRN PRN 10/21/17 oxyCODONE HCL [Roxicodone -] 10 mg PO Q4H PRN #30 tablet MDD 4 10/11/18 Metoprolol Tartrate 12.5 mg PO BID #60 tablet 10/13/18 Acetaminophen 325 mg PO QID PRN 10/21/18 Nystatin 1 each MC DAILY 10/21/18 Omeprazole 20 mg PO DAILY 10/21/18 Zinc Oxide 20% Topical Oint 454 gm NR DAILY 10/21/18 Dronabinol [Marinol -] 2.5 mg PO DAILY capsule MDD 1 11/11/18 Vancomycin 1,250 mg IVPB Q12H #18 vial 11/11/18
[2018-11-11] MEDS: guaiFENesin 200 MG/10 ML 10 ML UNIT-DOSE CUPS PO PRN (16:50)
--- NOTE | 2018-11-11 18:40 | PN ---
Progress Note (short form) - Note Progress Note: Patient seen and examined Plan is for transfer to [facility] to complete antibiotic therapy. Platelet decreased to 63K likely secondary to antibiotics . Need to be monitored.
[2018-11-11] MEDS ORDERED: ACETAMINOPHEN 500 MG TABLET (FP) PO ONE (22:41)
[2018-11-12] MEDS ORDERED: PT OWN MED DRAWER 7, Y5N ONE (01:52)
[2018-11-12] MEDS: VANCOMYCIN 1,250 MG in DEXTROSE 5%-WATER - 250 ML IVPB SCH ×2 (03:42→14:39)
[2018-11-12] MEDS: INSULIN SLIDING SCALE (NOVOLOG) 1 VIAL SQ SCH ×4 (06:33→21:36)
[2018-11-12] MEDS: METOCLOPRAMIDE HCL 10 MG TABLET (FP) PO SCH ×3 (06:33→17:55)
[2018-11-12] MEDS: guaiFENesin 200 MG/10 ML 10 ML UNIT-DOSE CUPS PO PRN ×2 (06:33→10:42)
[2018-11-12] MEDS: PANTOPRAZOLE 20 MG TABLET (FP) PO SCH (10:42)
[2018-11-12] MEDS: ALLOPURINOL 300 MG TABLET (FP) PO SCH (10:42)
[2018-11-12] MEDS: CYANOCOBALAMIN 1,000 MCG TABLET (FP) PO SCH (10:42)
[2018-11-12] MEDS: GABAPENTIN 400 MG CAPSULE (FP) PO SCH ×2 (10:42→21:19)
[2018-11-12] MEDS: oxyCODONE HCL 10 MG SUSTAINED ACTING TABLET PO SCH ×2 (10:42→21:19)
[2018-11-12] MEDS: METOPROLOL TARTRATE 25 MG TABLET (FP) PO SCH ×2 (10:43→21:19)
[2018-11-12] MEDS: NYSTATIN 100,000 UNIT/GM TOPICAL CREAM 15 GM TUBE TP SCH (10:49)
[2018-11-12] MEDS: ZINC OXIDE 20% TOPICAL OINTMENT 30 GM TUBE TP SCH (10:50)
[2018-11-12] MEDS: DRONABINOL 2.5 MG CAPSULE PO SCH ×2 (10:51→17:55)
--- NOTE | 2018-11-12 12:21 | PN ---
Progress Note, Physician Chief Complaint: Pt today spiking fever 103 now ordered Blood cultures repeat - Current Medication List Current Medications: Active Medications Acetaminophen (Tylenol -) 325 mg PO QID PRN PRN Reason: PAIN Last Admin: 10/24/18 23:09 Dose: 325 mg Allopurinol (Zyloprim -) 300 mg PO DAILY [facility] Last Admin: 11/12/18 10:42 Dose: 300 mg Benzocaine/Menthol (Cepacol Lozenge -) 1 each MM PRN PRN PRN Reason: SORE THROAT Last Admin: 11/11/18 06:16 Dose: 1 each Cyanocobalamin (Vitamin B12 -) 2,500 mcg PO DAILY [facility] Last Admin: 11/12/18 10:42 Dose: 2,500 mcg Dronabinol (Marinol -) 2.5 mg PO DAILY [facility] Last Admin: 11/12/18 10:51 Dose: Not Given Gabapentin (Neurontin -) 400 mg PO BID [facility] Last Admin: 11/12/18 10:42 Dose: 400 mg Guaifenesin (Robitussin -) 10 ml PO Q4H PRN PRN Reason: COUGH Last Admin: 11/12/18 10:42 Dose: 10 ml Vancomycin HCl 1,250 mg/ (Dextrose) 250 mls @ 166.667 mls/hr IVPB Q12H [facility]; Protocol Last Admin: 11/12/18 03:42 Dose: 166.667 mls/hr Insulin Aspart (Novolog Vial Sliding Scale -) 1 vial SQ ACHS [facility]; Protocol Last Admin: 11/12/18 11:45 Dose: 2 units Metoclopramide HCl (Reglan -) 10 mg PO TIDAC [facility] Last Admin: 11/12/18 10:42 Dose: 10 mg Metoprolol Tartrate (Lopressor -) 12.5 mg PO BID [facility] Last Admin: 11/12/18 10:43 Dose: Not Given Multi-Ingredient Ointment (Zinc Oxide) 1 applic TP DAILY [facility] Last Admin: 11/12/18 10:50 Dose: 1 applic Nystatin (Mycostatin Cream -) 1 applic TP DAILY [facility] Last Admin: 11/12/18 10:49 Dose: 1 applic Ondansetron HCl (Zofran Injection) 4 mg IVPUSH Q8H PRN PRN Reason: NAUSEA AND/OR VOMITING Oxycodone HCl (Oxycontin -) 10 mg PO BID [facility] Last Admin: 11/12/18 10:42 Dose: 10 mg Pantoprazole Sodium (Protonix -) 20 mg PO DAILY [facility] Last Admin: 11/12/18 10:42 Dose: 20 mg - Objective Vital Signs: Vital Signs Temperature 98.8 F 11/12/18 06:00 Pulse Rate 80 11/12/18 06:00 Respiratory Rate 20 11/12/18 06:00 Blood Pressure 100/70 11/12/18 06:00 O2 Sat by Pulse Oximetry (%) 91 L 11/11/18 21:00 Constitutional: Yes: No Distress, Calm Eyes: Yes: Conjunctiva Clear, EOM Intact HENT: Yes: Atraumatic, Normocephalic Neck: Yes: Supple, Trachea Midline Cardiovascular: Yes: Regular Rate and Rhythm, S1, S2 Respiratory: Yes: Regular, CTA Bilaterally Gastrointestinal: Yes: Normal Bowel Sounds, Soft Edema: No Peripheral Pulses WNL: Yes Neurological: Yes: Alert, Oriented, Cran Nerves II-XII Intact Labs: CBC, BMP 11/10/18 06:40 11/10/18 06:40 INR, PTT INR 1.10 (0.83-1.09) H 11/09/18 07:30 Problem List - Problems (1) Severe malnutrition Code(s): E43 - UNSPECIFIED SEVERE PROTEIN-CALORIE MALNUTRITION (2) Thrombocytopenia Code(s): D69.6 - THROMBOCYTOPENIA, UNSPECIFIED (3) Colon cancer metastasized to liver Code(s): C18.9 - MALIGNANT NEOPLASM OF COLON, UNSPECIFIED; C78.7 - SECONDARY MALIG NEOPLASM OF LIVER AND INTRAHEPATIC BILE DUCT (4) Failure to thrive Code(s): [id number] - Qualifiers: Failure to thrive age range: in adult Qualified Code(s): R62.7 - Adult failure to thrive (5) HTN (hypertension) Code(s): I10 - ESSENTIAL (PRIMARY) HYPERTENSION Qualifiers: Hypertension type: unspecified Qualified Code(s): I10 - Essential (primary ) hypertension (6) Sepsis Code(s): A41.9 - SEPSIS, UNSPECIFIED ORGANISM Assessment/Plan (1) Severe malnutrition Code(s): E43 - UNSPECIFIED SEVERE PROTEIN-CALORIE MALNUTRITION (2) Colon cancer metastasized to liver Code(s): C18.9 - MALIGNANT NEOPLASM OF COLON, UNSPECIFIED; C78.7 - SECONDARY MALIG NEOPLASM OF LIVER AND INTRAHEPATIC BILE DUCT (3) Failure to thrive Code(s): [id number] - Qualifiers: Failure to thrive age range: in adult Qualified Code(s): R62.7 - Adult failure to thrive (4) HTN (hypertension) Code(s): I10 - ESSENTIAL (PRIMARY) HYPERTENSION Qualifiers: Hypertension type: unspecified Qualified Code(s): I10 - Essential (primary ) hypertension (5) Sepsis Code(s): A41.9 - SEPSIS, UNSPECIFIED ORGANISM
[2018-11-12] MEDS ORDERED: MEROPENEM 1 GM in DEXTROSE 5%-WATER 100 ML IVPB ONE (22:00)
[2018-11-12] MEDS ORDERED: DEXTROSE 5%-WATER 100 ML IVPB ONE (22:58)
[2018-11-12] MEDS ORDERED: MEROPENEM 1 GM VIAL (RESTRICTED TO ID) IVPB ONE (22:58)
[2018-11-12] MEDS ORDERED: ACETAMINOPHEN 325 MG TABLET (FP) PO ONE (23:13)
[2018-11-13] MEDS: VANCOMYCIN 1,250 MG in DEXTROSE 5%-WATER - 250 ML IVPB SCH (01:37)
[2018-11-13] MEDS: INSULIN SLIDING SCALE (NOVOLOG) 1 VIAL SQ SCH ×4 (06:09→21:52)
[2018-11-13] MEDS: METOCLOPRAMIDE HCL 10 MG TABLET (FP) PO SCH ×3 (06:09→17:15)
[2018-11-13] MEDS ORDERED: PT OWN MED DRAWER 7, Y5N ONE (09:06)
[2018-11-13] MEDS: oxyCODONE HCL 10 MG SUSTAINED ACTING TABLET PO SCH (09:33)
[2018-11-13] MEDS: guaiFENesin 200 MG/10 ML 10 ML UNIT-DOSE CUPS PO PRN (09:33)
[2018-11-13] MEDS: DRONABINOL 2.5 MG CAPSULE PO SCH (09:33)
[2018-11-13] MEDS: GABAPENTIN 400 MG CAPSULE (FP) PO SCH ×2 (09:33→21:43)
[2018-11-13] MEDS: ALLOPURINOL 300 MG TABLET (FP) PO SCH (09:34)
[2018-11-13] MEDS: CYANOCOBALAMIN 1,000 MCG TABLET (FP) PO SCH (09:34)
[2018-11-13] MEDS: PANTOPRAZOLE 20 MG TABLET (FP) PO SCH (09:34)
[2018-11-13] MEDS: METOPROLOL TARTRATE 25 MG TABLET (FP) PO SCH ×2 (09:35→21:43)
[2018-11-13] MEDS: ZINC OXIDE 20% TOPICAL OINTMENT 30 GM TUBE TP SCH (09:36)
[2018-11-13] MEDS: NYSTATIN 100,000 UNIT/GM TOPICAL CREAM 15 GM TUBE TP SCH (09:36)
--- NOTE | 2018-11-13 12:06 | PN ---
Progress Note (short form) - Note Progress Note: notified by nurse of fever overnight to 103 has been having intermittent fevers since 11/10 he has no complaints denies chills denies diarrhea no trouble eating no dysuria Vital Signs Period Temp Pulse Resp BP Sys/Max Pulse Ox Last 24 Hr 99.4 F-103 F 68-113 18-20 93-106/59-66 96-96 alert no thrush cor-rrr lungs decreased bs at bses abd soft, mild ruq discomfort to palpation ext no edema no skin lesions CBC, BMP 11/10/18 06:40 11/10/18 06:40 Laboratory Tests 10/29/18 11/13/18 06:30 01:00 Creatine Kinase 26 Vancomycin Pre-Dose 42.4 H* echo- suboptimal- negative cxray clear lungs Microbiology 11/10/18 19:30 Blood - Peripheral Venous Blood Culture - Preliminary NO GROWTH OBTAINED AFTER 48 HOURS, INCUBATION TO CONTINUE FOR 3 DAYS. 11/10/18 19:20 Blood - Peripheral Venous Blood Culture - Preliminary NO GROWTH OBTAINED AFTER 48 HOURS, INCUBATION TO CONTINUE FOR 3 DAYS. 10/28/18 06:30 Blood - Peripheral Venous Blood Culture - Final NO GROWTH AFTER 5 DAYS INCUBATION 10/28/18 06:30 Blood - Peripheral Venous Blood Culture - Final NO GROWTH AFTER 5 DAYS INCUBATION 10/26/18 05:55 Blood - Peripheral Venous Blood Culture - Final NO GROWTH AFTER 5 DAYS INCUBATION 10/26/18 05:55 Blood - Peripheral Venous Blood Culture - Final NO GROWTH AFTER 5 DAYS INCUBATION 10/23/18 20:15 Blood - Peripheral Venous Blood Culture - Final S Aureus 10/23/18 20:05 Blood - Peripheral Venous Blood Culture - Final Mr S Aureus 10/24/18 03:00 Urine - Urine Clean Catch Urine Culture - Final NO GROWTH OBTAINED Current Medications Acetaminophen (Tylenol -) 325 mg PO QID PRN PRN Reason: PAIN Last Admin: 10/24/18 23:09 Dose: 325 mg Allopurinol (Zyloprim -) 300 mg PO DAILY [facility] Last Admin: 11/13/18 09:34 Dose: 300 mg Benzocaine/Menthol (Cepacol Lozenge -) 1 each MM PRN PRN PRN Reason: SORE THROAT Last Admin: 11/11/18 06:16 Dose: 1 each Cyanocobalamin (Vitamin B12 -) 2,500 mcg PO DAILY [facility] Last Admin: 11/13/18 09:34 Dose: 2,500 mcg Dronabinol (Marinol -) 2.5 mg PO DAILY [facility] Last Admin: 11/13/18 09:33 Dose: 2.5 mg Gabapentin (Neurontin -) 400 mg PO BID [facility] Last Admin: 11/13/18 09:33 Dose: 400 mg Guaifenesin (Robitussin -) 10 ml PO Q4H PRN PRN Reason: COUGH Last Admin: 11/13/18 09:33 Dose: 10 ml Vancomycin HCl 1,250 mg/ (Dextrose) 250 mls @ 166.667 mls/hr IVPB Q12H [facility]; Protocol Last Admin: 11/13/18 01:37 Dose: 166.667 mls/hr Insulin Aspart (Novolog Vial Sliding Scale -) 1 vial SQ ACHS [facility]; Protocol Last Admin: 11/13/18 11:43 Dose: 2 units Metoclopramide HCl (Reglan -) 10 mg PO TIDAC [facility] Last Admin: 11/13/18 11:44 Dose: 10 mg Metoprolol Tartrate (Lopressor -) 12.5 mg PO BID [facility] Last Admin: 11/13/18 09:35 Dose: Not Given Multi-Ingredient Ointment (Zinc Oxide) 1 applic TP DAILY [facility] Last Admin: 11/13/18 09:36 Dose: 1 applic Nystatin (Mycostatin Cream -) 1 applic TP DAILY [facility] Last Admin: 11/13/18 09:36 Dose: 1 applic Ondansetron HCl (Zofran Injection) 4 mg IVPUSH Q8H PRN PRN Reason: NAUSEA AND/OR VOMITING Pantoprazole Sodium (Protonix -) 20 mg PO DAILY [facility] Last Admin: 11/13/18 09:34 Dose: 20 mg a/p recurrent fever- ?source-cultures 11/10 negative, blood cultures 11/12 pending- empiric zosyn received meropenem last night, no recent labs- 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
[2018-11-13 13:13] LABS: BASO % 0.6 % (0-2.0); EOS % 2.8 % (0-4.5); HEMATOCRIT 29.7 % (35.4-49); HEMOGLOBIN 9.8 GM/dL (11.7-16.9); LYMPH % 12.9 % (8-40); MCH 31.2 pg (25.7-33.7); MCHC 33.2 g/dl (32.0-35.9); MEAN PLT VOLUME 8.6 fl (7.5-11.1); MONO % 9.4 % (3.8-10.2); NEUT % 74.3 % (42.8-82.8); PLATELET COUNT 65 K/MM3 (134-434); RBC 3.16 M/mm3 (4.00-5.60); RDW 21.9 % (11.9-15.9); WHITE BLOOD COUNT 5.6 K/mm3 (4.0-10.0)
[2018-11-13 13:36] LABS: ALBUMIN 2.4 g/dl (3.4-5.0); BILIRUBIN,TOTAL 0.7 mg/dL (0.2-1); BLOOD UREA NITROGEN 23.7 mg/dL (7-18); CALCIUM 9.1 mg/dL (8.5-10.1); CREATININE 2.3 mg/dL (0.55-1.3); POTASSIUM 4.1 mmol/L (3.5-5.1); TOT PROT 5.9 g/dl (6.4-8.2)
[2018-11-13] MEDS ORDERED: DEXTROSE 5%-WATER - 50 ML IVPB ONE ×2 (13:50→16:28)
[2018-11-13] MEDS ORDERED: PIPERACILLIN/TAZOBACTAM 3.375 GM VIAL IVPB ONE ×2 (13:50→16:28)
[2018-11-13] MEDS: PIPERACILLIN/TAZOB 3.375 GM 3.375 GM in DEXTROSE 5%-WATER - 50 ML IVPB SCH ×2 (14:29→17:15)
--- NOTE | 2018-11-13 18:19 | PN ---
Progress Note, Physician Chief Complaint: Pt today spiking fever 103 now ordered Blood cultures repeat NO SOB No Chest pain No Abd pain - Current Medication List Current Medications: Active Medications Acetaminophen (Tylenol -) 325 mg PO QID PRN PRN Reason: PAIN Last Admin: 10/24/18 23:09 Dose: 325 mg Allopurinol (Zyloprim -) 300 mg PO DAILY [facility] Last Admin: 11/13/18 09:34 Dose: 300 mg Benzocaine/Menthol (Cepacol Lozenge -) 1 each MM PRN PRN PRN Reason: SORE THROAT Last Admin: 11/11/18 06:16 Dose: 1 each Cyanocobalamin (Vitamin B12 -) 2,500 mcg PO DAILY [facility] Last Admin: 11/13/18 09:34 Dose: 2,500 mcg Dronabinol (Marinol -) 2.5 mg PO DAILY [facility] Last Admin: 11/13/18 09:33 Dose: 2.5 mg Gabapentin (Neurontin -) 400 mg PO BID [facility] Last Admin: 11/13/18 09:33 Dose: 400 mg Guaifenesin (Robitussin -) 10 ml PO Q4H PRN PRN Reason: COUGH Last Admin: 11/13/18 09:33 Dose: 10 ml Piperacillin Sod/Tazobactam (Sod 3.375 gm/ Dextrose) 50 mls @ 100 mls/hr IVPB Q8H-IV [facility]; Protocol Last Admin: 11/13/18 17:15 Dose: 100 mls/hr Insulin Aspart (Novolog Vial Sliding Scale -) 1 vial SQ ACHS [facility]; Protocol Last Admin: 11/13/18 17:15 Dose: 2 units Metoclopramide HCl (Reglan -) 10 mg PO TIDAC [facility] Last Admin: 11/13/18 17:15 Dose: 10 mg Metoprolol Tartrate (Lopressor -) 12.5 mg PO BID [facility] Last Admin: 11/13/18 09:35 Dose: Not Given Multi-Ingredient Ointment (Zinc Oxide) 1 applic TP DAILY [facility] Last Admin: 11/13/18 09:36 Dose: 1 applic Nystatin (Mycostatin Cream -) 1 applic TP DAILY [facility] Last Admin: 11/13/18 09:36 Dose: 1 applic Ondansetron HCl (Zofran Injection) 4 mg IVPUSH Q8H PRN PRN Reason: NAUSEA AND/OR VOMITING Pantoprazole Sodium (Protonix -) 20 mg PO DAILY [facility] Last Admin: 11/13/18 09:34 Dose: 20 mg - Objective Vital Signs: Vital Signs Temperature 99 F 11/13/18 16:20 Pulse Rate 108 H 11/13/18 16:20 Respiratory Rate 18 11/13/18 16:20 Blood Pressure 100/56 L 11/13/18 16:20 O2 Sat by Pulse Oximetry (%) 96 11/13/18 09:00 Constitutional: Yes: No Distress, Calm Eyes: Yes: Conjunctiva Clear, EOM Intact HENT: Yes: Atraumatic, Normocephalic Neck: Yes: Supple, Trachea Midline Cardiovascular: Yes: Regular Rate and Rhythm, S1, S2 Respiratory: Yes: Regular, CTA Bilaterally Gastrointestinal: Yes: Normal Bowel Sounds, Soft Edema: No Peripheral Pulses WNL: Yes Neurological: Yes: Alert, Oriented, Cran Nerves II-XII Intact Labs: CBC, BMP 11/13/18 13:05 11/13/18 13:05 INR, PTT INR 1.10 (0.83-1.09) H 11/09/18 07:30 Problem List - Problems (1) Colon cancer metastasized to liver Code(s): C18.9 - MALIGNANT NEOPLASM OF COLON, UNSPECIFIED; C78.7 - SECONDARY MALIG NEOPLASM OF LIVER AND INTRAHEPATIC BILE DUCT (2) Failure to thrive Code(s): [id number] - Qualifiers: Failure to thrive age range: in adult Qualified Code(s): R62.7 - Adult failure to thrive (3) HTN (hypertension) Code(s): I10 - ESSENTIAL (PRIMARY) HYPERTENSION Qualifiers: Hypertension type: unspecified Qualified Code(s): I10 - Essential (primary ) hypertension (4) Sepsis Code(s): A41.9 - SEPSIS, UNSPECIFIED ORGANISM (5) Severe malnutrition Code(s): E43 - UNSPECIFIED SEVERE PROTEIN-CALORIE MALNUTRITION (6) Thrombocytopenia Code(s): D69.6 - THROMBOCYTOPENIA, UNSPECIFIED Assessment/Plan (1) Severe malnutrition Code(s): E43 - UNSPECIFIED SEVERE PROTEIN-CALORIE MALNUTRITION (2) Colon cancer metastasized to liver Code(s): C18.9 - MALIGNANT NEOPLASM OF COLON, UNSPECIFIED; C78.7 - SECONDARY MALIG NEOPLASM OF LIVER AND INTRAHEPATIC BILE DUCT (3) Failure to thrive Code(s): [id number] - Qualifiers: Failure to thrive age range: in adult Qualified Code(s): R62.7 - Adult failure to thrive (4) HTN (hypertension) Code(s): I10 - ESSENTIAL (PRIMARY) HYPERTENSION Qualifiers: Hypertension type: unspecified Qualified Code(s): I10 - Essential (primary ) hypertension (5) Sepsis Code(s): A41.9 - SEPSIS, UNSPECIFIED ORGANISM Pt is hemodynamically stable
[2018-11-13] MEDS ORDERED: oxyCODONE HCL 5 MG TABLET PO ONE (21:37)
[2018-11-13] MEDS: ACETAMINOPHEN 325 MG TABLET (FP) PO PRN (22:00)
--- NOTE | 2018-11-13 22:38 | HOSP ---
Physical Examination Vital Signs: Vital Signs Temperature 102.3 F H 11/13/18 21:19 Pulse Rate 109 H 11/13/18 21:19 Respiratory Rate 18 11/13/18 21:19 Blood Pressure 100/64 11/13/18 21:19 O2 Sat by Pulse Oximetry (%) 96 11/13/18 09:00 Labs: CBC, BMP 11/13/18 13:05 11/13/18 13:05 Hospitalist Encounter Assessment: PT has new onset fever 102.3 -CXR ordered -blood cultures are currently pending -UA ordered -325 tylenol prn already ordered
[2018-11-13 23:12] LABS: EPI CELLS 0.6 /HPF (0-5/HPF); HYALINE CASTS 0 /lpf (0-8); PH,URINE 5.5 (5.0-8.0); URINE APPEARANCE CLEAR; URINE BACTERIA 4.2 /hpf (NEGATIVE); URINE BILIRUBIN NEGATIVE (NEGATIVE); URINE COLOR YELLOW; URINE GLUCOSE (UA) NEGATIVE (NEGATIVE); URINE KETONE NEGATIVE (NEGATIVE); URINE LEUK ESTERASE NEGATIVE (NEGATIVE); URINE NITRITE NEGATIVE (NEGATIVE); URINE PROTEIN 1+ (NEGATIVE); URINE RBC 7 /hpf (0-4); URINE UROBILINOGEN 0.2 mg/dL (0.2-1.0); URINE WBC 1 /hpf (0-5)
[2018-11-14] MEDS ORDERED: DEXTROSE 5%-WATER - 50 ML IVPB ONE ×2 (00:50→10:44)
[2018-11-14] MEDS ORDERED: PIPERACILLIN/TAZOBACTAM 3.375 GM VIAL IVPB ONE ×2 (00:50→10:44)
[2018-11-14] MEDS: PIPERACILLIN/TAZOB 3.375 GM 3.375 GM in DEXTROSE 5%-WATER - 50 ML IVPB SCH ×2 (01:35→10:54)
[2018-11-14] MEDS: METOCLOPRAMIDE HCL 10 MG TABLET (FP) PO SCH ×3 (06:04→17:11)
[2018-11-14] MEDS: INSULIN SLIDING SCALE (NOVOLOG) 1 VIAL SQ SCH ×4 (06:08→22:03)
[2018-11-14 09:05] LABS: BLOOD UREA NITROGEN 25.6 mg/dL (7-18); CALCIUM 9.3 mg/dL (8.5-10.1); CREATININE 2.6 mg/dL (0.55-1.3); POTASSIUM 3.8 mmol/L (3.5-5.1)
--- NOTE | 2018-11-14 10:16 | PN ---
Progress Note (short form) - Note Progress Note: pt seen/ examined events noted/ chart reviewed Again having fever-- Discussed with Dr. Rosales also Labs noted-- In ARF Pt passing urine vanco level- high -- Held denies cp mild chronic abd discomfort for u/s today Vital Signs Temp 97.6 F 11/14/18 07:04 Pulse 89 11/14/18 07:04 Resp 18 11/14/18 07:04 BP 100/58 L 11/14/18 07:04 Pulse Ox 96 11/13/18 21:00 Intake & Output 11/13/18 11/13/18 11/14/18 11:59 23:59 11:59 Intake Total 500 100 50 Output Total 300 Balance 200 100 50 Weight 186 lb 9 oz 188 lb Intake: IVPB 500 100 50 Output: Urine 300 Void 300 Other: Voiding Method Urinal Urinal # Unmeasured Voids Void 2 1 Bowel Movement No Weight Measurement Method Built in Bedscale Built in Bedscale Active Medications Acetaminophen (Tylenol -) 325 mg PO QID PRN PRN Reason: PAIN Last Admin: 11/13/18 22:00 Dose: 325 mg Allopurinol (Zyloprim -) 300 mg PO DAILY [facility] Last Admin: 11/13/18 09:34 Dose: 300 mg Benzocaine/Menthol (Cepacol Lozenge -) 1 each MM PRN PRN PRN Reason: SORE THROAT Last Admin: 11/11/18 06:16 Dose: 1 each Cyanocobalamin (Vitamin B12 -) 2,500 mcg PO DAILY [facility] Last Admin: 11/13/18 09:34 Dose: 2,500 mcg Dronabinol (Marinol -) 2.5 mg PO DAILY [facility] Last Admin: 11/13/18 09:33 Dose: 2.5 mg Gabapentin (Neurontin -) 400 mg PO BID [facility] Last Admin: 11/13/18 21:43 Dose: 400 mg Guaifenesin (Robitussin -) 10 ml PO Q4H PRN PRN Reason: COUGH Last Admin: 11/13/18 09:33 Dose: 10 ml Piperacillin Sod/Tazobactam (Sod 3.375 gm/ Dextrose) 50 mls @ 100 mls/hr IVPB Q8H-IV [facility]; Protocol Last Admin: 11/14/18 01:35 Dose: 100 mls/hr Dextrose/Sodium Chloride (D5-1/2ns -) 1,000 mls @ 100 mls/hr IV ASDIR [facility] Insulin Aspart (Novolog Vial Sliding Scale -) 1 vial SQ ACHS [facility]; Protocol Last Admin: 11/14/18 06:08 Dose: Not Given Metoclopramide HCl (Reglan -) 10 mg PO TIDAC [facility] Last Admin: 11/14/18 06:04 Dose: 10 mg Metoprolol Tartrate (Lopressor -) 12.5 mg PO BID [facility] Last Admin: 11/13/18 21:43 Dose: Not Given Multi-Ingredient Ointment (Zinc Oxide) 1 applic TP DAILY [facility] Last Admin: 11/13/18 09:36 Dose: 1 applic Nystatin (Mycostatin Cream -) 1 applic TP DAILY [facility] Last Admin: 11/13/18 09:36 Dose: 1 applic Ondansetron HCl (Zofran Injection) 4 mg IVPUSH Q8H PRN PRN Reason: NAUSEA AND/OR VOMITING Oxycodone HCl (Oxycontin -) 10 mg PO BID [facility] Pantoprazole Sodium (Protonix -) 20 mg PO DAILY [facility] Last Admin: 11/13/18 09:34 Dose: 20 mg CBC, BMP 11/13/18 13:05 11/14/18 08:00 Microbiology 11/12/18 22:50 Blood Culture - Preliminary Blood - Peripheral Venous NO GROWTH OBTAINED AFTER 24 HOURS, INCUBATION TO CONTINUE FOR 4 DAYS. 11/12/18 22:50 Blood Culture - Preliminary Blood - Peripheral Venous NO GROWTH OBTAINED AFTER 24 HOURS, INCUBATION TO CONTINUE FOR 4 DAYS. 11/10/18 19:30 Blood Culture - Preliminary Blood - Peripheral Venous NO GROWTH OBTAINED AFTER 72 HOURS, INCUBATION TO CONTINUE FOR 2 DAYS. 11/10/18 19:20 Blood Culture - Preliminary Blood - Peripheral Venous NO GROWTH OBTAINED AFTER 72 HOURS, INCUBATION TO CONTINUE FOR 2 DAYS. Physical Exam. Awake/ comfortable [id number] Lungs - diminished at bases Abd- soft, no edema PLAN Fever Vanco toxicity arf tumor fever ? Other problems as listed Continue present care avoid nsaids will give mild hydration f/u labs will follow Problem List - Problems (1) Sepsis Code(s): A41.9 - SEPSIS, UNSPECIFIED ORGANISM (2) Atrial fibrillation Code(s): I48.91 - UNSPECIFIED ATRIAL FIBRILLATION Qualifiers: Atrial fibrillation type: unspecified Qualified Code(s): I48.91 - Unspecified atrial fibrillation (3) Colon cancer metastasized to liver Code(s): C18.9 - MALIGNANT NEOPLASM OF COLON, UNSPECIFIED; C78.7 - SECONDARY MALIG NEOPLASM OF LIVER AND INTRAHEPATIC BILE DUCT (4) Failure to thrive Code(s): [id number] - Qualifiers: Failure to thrive age range: in adult Qualified Code(s): R62.7 - Adult failure to thrive
[2018-11-14] MEDS: GABAPENTIN 400 MG CAPSULE (FP) PO SCH ×2 (10:53→21:33)
[2018-11-14] MEDS: DRONABINOL 2.5 MG CAPSULE PO SCH (10:53)
[2018-11-14] MEDS: PANTOPRAZOLE 20 MG TABLET (FP) PO SCH (10:53)
[2018-11-14] MEDS: CYANOCOBALAMIN 1,000 MCG TABLET (FP) PO SCH (10:53)
[2018-11-14] MEDS: METOPROLOL TARTRATE 25 MG TABLET (FP) PO SCH ×2 (10:53→21:37)
[2018-11-14] MEDS: ALLOPURINOL 300 MG TABLET (FP) PO SCH (10:54)
[2018-11-14] MEDS: NYSTATIN 100,000 UNIT/GM TOPICAL CREAM 15 GM TUBE TP SCH (10:54)
[2018-11-14] MEDS: ZINC OXIDE 20% TOPICAL OINTMENT 30 GM TUBE TP SCH (10:55)
[2018-11-14] MEDS: DEXTROSE 5%-0.45% SALINE 1,000 ML IV SCH ×2 (11:32→22:23)
[2018-11-14] MEDS: guaiFENesin 200 MG/10 ML 10 ML UNIT-DOSE CUPS PO PRN (11:59)
[2018-11-14] MEDS: BENZOCAINE/MENTH/CETYLPYRD CL 1 EACH LOZENGE MM PRN (12:00)
--- NOTE | 2018-11-14 12:37 | PN ---
Progress Note, Physician History of Present Illness: AWAKE, ALERT IN BED FEVERS NOTED C/O URI SYMPTOMS NO C/O ABDOMINAL PAIN NO DIARRHEA ORAL INTAKE BETTER - Current Medication List Current Medications: Active Medications Acetaminophen (Tylenol -) 325 mg PO QID PRN PRN Reason: PAIN Last Admin: 11/13/18 22:00 Dose: 325 mg Allopurinol (Zyloprim -) 300 mg PO DAILY [facility] Last Admin: 11/14/18 10:54 Dose: 300 mg Benzocaine/Menthol (Cepacol Lozenge -) 1 each MM PRN PRN PRN Reason: SORE THROAT Last Admin: 11/14/18 12:00 Dose: 1 each Cyanocobalamin (Vitamin B12 -) 2,500 mcg PO DAILY [facility] Last Admin: 11/14/18 10:53 Dose: 2,500 mcg Dronabinol (Marinol -) 2.5 mg PO DAILY [facility] Last Admin: 11/14/18 10:53 Dose: 2.5 mg Gabapentin (Neurontin -) 400 mg PO BID [facility] Last Admin: 11/14/18 10:53 Dose: 400 mg Guaifenesin (Robitussin -) 10 ml PO Q4H PRN PRN Reason: COUGH Last Admin: 11/14/18 11:59 Dose: 10 ml Piperacillin Sod/Tazobactam (Sod 3.375 gm/ Dextrose) 50 mls @ 100 mls/hr IVPB Q8H-IV [facility]; Protocol Last Admin: 11/14/18 10:54 Dose: 100 mls/hr Dextrose/Sodium Chloride (D5-1/2ns -) 1,000 mls @ 100 mls/hr IV ASDIR [facility] Last Admin: 11/14/18 11:32 Dose: 100 mls/hr Insulin Aspart (Novolog Vial Sliding Scale -) 1 vial SQ ACHS [facility]; Protocol Last Admin: 11/14/18 12:32 Dose: 2 units Metoclopramide HCl (Reglan -) 10 mg PO TIDAC [facility] Last Admin: 11/14/18 10:54 Dose: 10 mg Metoprolol Tartrate (Lopressor -) 12.5 mg PO BID [facility] Last Admin: 11/14/18 10:53 Dose: Not Given Multi-Ingredient Ointment (Zinc Oxide) 1 applic TP DAILY [facility] Last Admin: 11/14/18 10:55 Dose: 1 applic Nystatin (Mycostatin Cream -) 1 applic TP DAILY [facility] Last Admin: 11/14/18 10:54 Dose: 1 applic Ondansetron HCl (Zofran Injection) 4 mg IVPUSH Q8H PRN PRN Reason: NAUSEA AND/OR VOMITING Oxycodone HCl (Oxycontin -) 10 mg PO BID [facility] Pantoprazole Sodium (Protonix -) 20 mg PO DAILY [facility] Last Admin: 11/14/18 10:53 Dose: 20 mg - Objective Vital Signs: Vital Signs Temperature 98.7 F 11/14/18 10:00 Pulse Rate 88 11/14/18 10:00 Respiratory Rate 16 11/14/18 10:00 Blood Pressure 100/67 11/14/18 10:00 O2 Sat by Pulse Oximetry (%) 96 11/13/18 21:00 Constitutional: Yes: No Distress Cardiovascular: Yes: Regular Rate and Rhythm, S1, S2 Respiratory: Yes: CTA Bilaterally Gastrointestinal: Yes: Normal Bowel Sounds, Soft. No: Tenderness Labs: CBC, BMP 11/13/18 13:05 11/14/18 08:00 INR, PTT INR 1.10 (0.83-1.09) H 11/09/18 07:30 Assessment/Plan RECURRENT MRSA BACTEREMIA ? INFECTED HEPATIC MASS ANA METASTATIC COLON CA REPEAT BC NO GROWTH DAY #22 ANTISTAPHYLOCOCCAL THERAPY HOLD VANCOMYCIN REPEAT LEVEL AM FLU SWAB HYDRATION
--- NOTE | 2018-11-14 18:28 | PN ---
Physical Exam: SUBJECTIVE: Patient seen and examined Tmax 102.3 Temp Cr elevated 1--> 2.3--> 2.6 random vanc 33.6 Patient c/o URI symptoms FLU negative OBJECTIVE: Vital Signs Period Temp Pulse Resp BP Sys/Max Pulse Ox Last 24 Hr 97.6 F-102.3 F 88-109 16-20 92-100/49-67 96-96 GENERAL: The patient is awake, alert, and fully oriented, in no acute distress. EYES: anisicoria. NECK: supple. LUNGS: decreased breath sounds HEART: Regular rate and rhythm, S1, S2 without murmur, rub or gallop. Incisional scar R upper chest ABDOMEN: Soft, nontender today. nondistended, normoactive bowel sounds, no guarding EXTREMITIES: 2+ pulses, warm, well-perfused, no edema. Laboratory Results - last 24 hr 11/13/18 11/13/18 11/14/18 21:50 22:50 06:06 Sodium Potassium Chloride Carbon Dioxide Anion Gap BUN Creatinine Est GFR (CKD-EPI)AfAm Est GFR (CKD-EPI)NonAf POC Glucometer 127 128 Random Glucose Calcium Urine Color Yellow Urine Appearance Clear Urine pH 5.5 D Ur Specific Polo 1.019 Urine Protein 1+ H Urine Glucose (UA) Negative Urine Ketones Negative Urine Blood Negative Urine Nitrite Negative Urine Bilirubin Negative Urine Urobilinogen 0.2 Ur Leukocyte Esterase Negative Urine WBC (Auto) 1 Urine RBC (Auto) 7 Urine Casts (Auto) 0 U Epithel Cells (Auto) 0.6 Urine Bacteria (Auto) 4.2 Random Vancomycin Influenza A (Rapid) Influenza B (Rapid) 11/14/18 11/14/18 11/14/18 08:00 08:00 12:29 Sodium 139 Potassium 3.8 Chloride 101 Carbon Dioxide 30 Anion Gap 7 L BUN 25.6 H Creatinine 2.6 H Est GFR (CKD-EPI)AfAm 27.14 Est GFR (CKD-EPI)NonAf 23.42 POC Glucometer 172 Random Glucose 141 H Calcium 9.3 Urine Color Urine Appearance Urine pH Ur Specific Polo Urine Protein Urine Glucose (UA) Urine Ketones Urine Blood Urine Nitrite Urine Bilirubin Urine Urobilinogen Ur Leukocyte Esterase Urine WBC (Auto) Urine RBC (Auto) Urine Casts (Auto) U Epithel Cells (Auto) Urine Bacteria (Auto) Random Vancomycin 33.6 H* Influenza A (Rapid) Influenza B (Rapid) 11/14/18 11/14/18 13:49 17:10 Sodium Potassium Chloride Carbon Dioxide Anion Gap BUN Creatinine Est GFR (CKD-EPI)AfAm Est GFR (CKD-EPI)NonAf POC Glucometer 149 Random Glucose Calcium Urine Color Urine Appearance Urine pH Ur Specific Polo Urine Protein Urine Glucose (UA) Urine Ketones Urine Blood Urine Nitrite Urine Bilirubin Urine Urobilinogen Ur Leukocyte Esterase Urine WBC (Auto) Urine RBC (Auto) Urine Casts (Auto) U Epithel Cells (Auto) Urine Bacteria (Auto) Random Vancomycin Influenza A (Rapid) Negative Influenza B (Rapid) Negative ASSESSMENT/PLAN: #Colon Ca #Liver Mets s/p ablation #Thrombocytopenia #Febrile 102.3 #MRSA bacteremia #Hx of MM #ANA -Patient febrile overnight. -awaiting ID reccs -Plt yesterday 65.previous 66. Daptomycin stopped. -Currently off Abx. monitor CBC -HIT abs negative -Will monitor Visit type - Emergency Visit Emergency Visit: Yes ED Registration Date: 10/21/18 Care time: The patient presented to the Emergency Department on the above date and was hospitalized for further evaluation of their emergent condition. - New Patient This patient is new to me today: No - Critical Care Critical Care patient: No ATTENDING PHYSICIAN STATEMENT I saw and evaluated the patient. I reviewed the resident's note and discussed the case with the resident. I agree with the resident's findings and plan as documented. SUBJECTIVE: OBJECTIVE: ASSESSMENT AND PLAN:
[2018-11-14] MEDS: oxyCODONE HCL 10 MG SUSTAINED ACTING TABLET PO SCH (21:33)
[2018-11-14] MEDS ORDERED: INSULIN (NOVOLOG) ASPART 100 UNITS/ML 10ML VIAL ONE (21:52)
[2018-11-14] MEDS: ACETAMINOPHEN 325 MG TABLET (FP) PO PRN (22:03)
[2018-11-15] MEDS: INSULIN SLIDING SCALE (NOVOLOG) 1 VIAL SQ SCH ×4 (06:05→21:46)
[2018-11-15] MEDS: METOCLOPRAMIDE HCL 10 MG TABLET (FP) PO SCH ×3 (06:05→17:23)
[2018-11-15 08:01] LABS: BASO % 0.8 % (0-2.0); EOS % 5.8 % (0-4.5); HEMATOCRIT 25.2 % (35.4-49); HEMOGLOBIN 8.3 GM/dL (11.7-16.9); LYMPH % 15.8 % (8-40); MEAN PLT VOLUME 8.5 fl (7.5-11.1); NEUT % 67.6 % (42.8-82.8); PLATELET COUNT 57 K/MM3 (134-434); RBC 2.68 M/mm3 (4.00-5.60); RDW 21.3 % (11.9-15.9)
[2018-11-15 08:33] LABS: ALBUMIN 2.1 g/dl (3.4-5.0); BILIRUBIN,TOTAL 0.6 mg/dL (0.2-1); BLOOD UREA NITROGEN 23.7 mg/dL (7-18); CALCIUM 8.9 mg/dL (8.5-10.1); CREATININE 2.5 mg/dL (0.55-1.3); POTASSIUM 3.5 mmol/L (3.5-5.1); TOT PROT 5.3 g/dl (6.4-8.2)
[2018-11-15] MEDS: DEXTROSE 5%-0.45% SALINE 1,000 ML IV SCH ×2 (08:41→12:04)
--- NOTE | 2018-11-15 09:28 | PN ---
Progress Note (short form) - Note Progress Note: pt seen / examined comfortable no distress all f/u noted low grade fever.- Normal wbc- no left shift passing urine Vital Signs Temp 98.6 F 11/15/18 06:00 Pulse 82 11/15/18 06:00 Resp 20 11/15/18 06:00 BP 110/53 L 11/14/18 22:00 Pulse Ox 96 11/14/18 21:00 Intake & Output 11/14/18 11/14/18 11/15/18 11:59 23:59 11:59 Intake Total 50 700 1200 Output Total 150 Balance 50 550 1200 Weight 188 lb 190 lb Intake: IV 700 1200 D5-1/2Ns - 1,000 ml @ 321 176 3727 mls/hr IV ASDIR JAMIE Rx#: [id number] IVPB 50 Oral 0 Output: Urine 150 Void 150 Other: Voiding Method Urinal Indwelling Catheter # Unmeasured Voids Void 1 3 Bowel Movement No No No Weight Measurement Method Built in Bedscale Built in [facility]scale Active Medications Acetaminophen (Tylenol -) 325 mg PO QID PRN PRN Reason: PAIN Last Admin: 11/14/18 22:03 Dose: 325 mg Allopurinol (Zyloprim -) 300 mg PO DAILY [facility] Last Admin: 11/14/18 10:54 Dose: 300 mg Benzocaine/Menthol (Cepacol Lozenge -) 1 each MM PRN PRN PRN Reason: SORE THROAT Last Admin: 11/14/18 12:00 Dose: 1 each Cyanocobalamin (Vitamin B12 -) 2,500 mcg PO DAILY [facility] Last Admin: 11/14/18 10:53 Dose: 2,500 mcg Dronabinol (Marinol -) 2.5 mg PO DAILY [facility] Last Admin: 11/14/18 10:53 Dose: 2.5 mg Gabapentin (Neurontin -) 400 mg PO BID [facility] Last Admin: 11/14/18 21:33 Dose: 400 mg Guaifenesin (Robitussin -) 10 ml PO Q4H PRN PRN Reason: COUGH Last Admin: 11/14/18 11:59 Dose: 10 ml Dextrose/Sodium Chloride (D5-1/2ns -) 1,000 mls @ 100 mls/hr IV ASDIR JAMIE Last Admin: 11/15/18 08:41 Dose: 100 mls/hr Insulin Aspart (Novolog Vial Sliding Scale -) 1 vial SQ ACHS [facility]; Protocol Last Admin: 11/15/18 06:05 Dose: Not Given Metoclopramide HCl (Reglan -) 10 mg PO TIDAC [facility] Last Admin: 11/15/18 06:05 Dose: 10 mg Metoprolol Tartrate (Lopressor -) 12.5 mg PO BID [facility] Last Admin: 11/14/18 21:37 Dose: 12.5 mg Multi-Ingredient Ointment (Zinc Oxide) 1 applic TP DAILY [facility] Last Admin: 11/14/18 10:55 Dose: 1 applic Nystatin (Mycostatin Cream -) 1 applic TP DAILY [facility] Last Admin: 11/14/18 10:54 Dose: 1 applic Ondansetron HCl (Zofran Injection) 4 mg IVPUSH Q8H PRN PRN Reason: NAUSEA AND/OR VOMITING Oxycodone HCl (Oxycontin -) 10 mg PO BID [facility] Last Admin: 11/14/18 21:33 Dose: 10 mg Pantoprazole Sodium (Protonix -) 20 mg PO DAILY [facility] Last Admin: 11/14/18 10:53 Dose: 20 mg CBC, BMP 11/15/18 06:57 11/15/18 06:57 u/s liver- no change in mass Physical Exam. Awake/ comfortable [id number] Lungs - diminished at bases. Abd- soft, Nontender no edema alert and awake PLAN Fever--Still having low-grade Vanco toxicity arf--monitor tumor fever ? Other problems as listed Continue present care avoid nsaids mild hydration f/u labs will follow discussed with nursing staff also Problem List - Problems (1) Sepsis Code(s): A41.9 - SEPSIS, UNSPECIFIED ORGANISM (2) Atrial fibrillation Code(s): I48.91 - UNSPECIFIED ATRIAL FIBRILLATION Qualifiers: Atrial fibrillation type: unspecified Qualified Code(s): I48.91 - Unspecified atrial fibrillation (3) Colon cancer metastasized to liver Code(s): C18.9 - MALIGNANT NEOPLASM OF COLON, UNSPECIFIED; C78.7 - SECONDARY MALIG NEOPLASM OF LIVER AND INTRAHEPATIC BILE DUCT (4) Failure to thrive Code(s): [id number] - Qualifiers: Failure to thrive age range: in adult Qualified Code(s): R62.7 - Adult failure to thrive
[2018-11-15] MEDS: ALLOPURINOL 300 MG TABLET (FP) PO SCH (10:01)
[2018-11-15] MEDS: DRONABINOL 2.5 MG CAPSULE PO SCH (10:01)
[2018-11-15] MEDS: PANTOPRAZOLE 20 MG TABLET (FP) PO SCH (10:01)
[2018-11-15] MEDS: BENZOCAINE/MENTH/CETYLPYRD CL 1 EACH LOZENGE MM PRN (10:01)
[2018-11-15] MEDS: oxyCODONE HCL 10 MG SUSTAINED ACTING TABLET PO SCH ×2 (10:01→21:40)
[2018-11-15] MEDS: guaiFENesin 200 MG/10 ML 10 ML UNIT-DOSE CUPS PO PRN ×2 (10:01→15:09)
[2018-11-15] MEDS: NYSTATIN 100,000 UNIT/GM TOPICAL CREAM 15 GM TUBE TP SCH (10:02)
[2018-11-15] MEDS: ZINC OXIDE 20% TOPICAL OINTMENT 30 GM TUBE TP SCH (10:02)
[2018-11-15] MEDS: CYANOCOBALAMIN 1,000 MCG TABLET (FP) PO SCH (10:02)
[2018-11-15] MEDS: METOPROLOL TARTRATE 25 MG TABLET (FP) PO SCH ×2 (10:03→21:40)
[2018-11-15] MEDS: GABAPENTIN 400 MG CAPSULE (FP) PO SCH ×2 (10:04→21:41)
[2018-11-15] MEDS ORDERED: INSULIN (NOVOLOG) ASPART 100 UNITS/ML 10ML VIAL ONE (17:07)
--- NOTE | 2018-11-15 18:10 | PN ---
Teaching Attending Note Name of Resident: Hailey Van ATTENDING PHYSICIAN STATEMENT I saw and evaluated the patient. I reviewed the resident's note and discussed the case with the resident. I agree with the resident's findings and plan as documented. SUBJECTIVE: Patient seen and examined Temp spike Source unclear --? infected liver , ? aspiration Last Vital Signs Temp Pulse Resp BP Pulse Ox 97.8 F 92 H 20 96/54 L 96 11/15/18 16:12 11/15/18 16:12 11/15/18 16:12 11/15/18 16:12 11/15/18 09:00 HEENT: anisocoria Oropharynx: thrush, improved CBC, BMP 11/15/18 06:57 11/15/18 06:57 Cor: RSR, No murmurs, No gallops Lungs: Clear to P&A Abd: Soft, Normal bowel sounds, No organomegaly Ext:No significant edema Skin: No rashes, Integument intact Current Medications Generic Name Dose Route Start Last Admin Trade Name Freq PRN Reason Stop Dose Admin Acetaminophen 325 mg 10/22/18 06:02 11/14/18 22:03 Tylenol - PO 325 mg QID PRN Administration PAIN Allopurinol 300 mg 10/22/18 10:00 11/15/18 10:01 Zyloprim - PO 300 mg DAILY JAMIE Administration Benzocaine/Menthol 1 each 11/10/18 11:36 11/15/18 10:01 Cepacol Lozenge - MM 1 each PRN PRN Administration SORE THROAT Cyanocobalamin 2,500 mcg 10/22/18 10:00 11/15/18 10:02 Vitamin B12 - PO 2,500 mcg DAILY JAMIE Administration Dronabinol 2.5 mg 10/29/18 10:00 11/15/18 10:01 Marinol - PO 2.5 mg DAILY JAMIE Administration Gabapentin 400 mg 10/22/18 10:00 11/15/18 10:04 Neurontin - PO 400 mg BID JAMIE Administration Guaifenesin 10 ml 11/10/18 11:36 11/15/18 15:09 Robitussin - PO 10 ml Q4H PRN Administration COUGH Dextrose/Sodium Chloride 1,000 mls @ 100 mls/hr 11/14/18 10:15 11/15/18 12:04 D5-1/2ns - IV Not Given ASDIR [facility] Insulin Aspart 1 vial 10/22/18 11:00 11/15/18 17:23 Novolog Vial Sliding Scale - SQ Not Given ACHS [facility] Protocol Metoclopramide HCl 10 mg 11/02/18 16:30 11/15/18 17:23 Reglan - PO 10 mg TIDAC JAMIE Administration Metoprolol Tartrate 12.5 mg 10/22/18 10:00 11/15/18 10:03 Lopressor - PO Not Given BID [facility] Multi-Ingredient Ointment 1 applic 10/22/18 10:00 11/15/18 10:02 Zinc Oxide TP 1 applic DAILY JAMIE Administration Nystatin 1 applic 10/22/18 10:00 11/15/18 10:02 Mycostatin Cream - TP 1 applic DAILY JAMIE Administration Ondansetron HCl 4 mg 10/22/18 06:01 Zofran Injection IVPUSH Q8H PRN NAUSEA AND/OR VOMITING Oxycodone HCl 10 mg 11/14/18 22:00 11/15/18 10:01 Oxycontin - PO 10 mg BID JAMIE Administration Pantoprazole Sodium 20 mg 10/22/18 10:00 11/15/18 10:01 Protonix - PO 20 mg DAILY JAMIE Administration Impression: Colon ca s/p ablation of liver MRSA bacteremia x 2 Thrombocytopenia Anemia ANA Fevers Monitor platelets, kidney function, temps etc. OBJECTIVE: ASSESSMENT AND PLAN:
[2018-11-16] MEDS: METOCLOPRAMIDE HCL 10 MG TABLET (FP) PO SCH ×3 (06:00→17:40)
[2018-11-16] MEDS: INSULIN SLIDING SCALE (NOVOLOG) 1 VIAL SQ SCH ×4 (06:00→23:06)
[2018-11-16 07:43] LABS: BASO % 0.8 % (0-2.0); EOS % 5.6 % (0-4.5); HEMATOCRIT 23.3 % (35.4-49); HEMOGLOBIN 7.8 GM/dL (11.7-16.9); LYMPH % 14.6 % (8-40); MCH 31.3 pg (25.7-33.7); MCHC 33.3 g/dl (32.0-35.9); MEAN CELL VOLUME 93.9 fl (80-96); MEAN PLT VOLUME 8.4 fl (7.5-11.1); MONO % 9.9 % (3.8-10.2); NEUT % 69.1 % (42.8-82.8); PLATELET COUNT 58 K/MM3 (134-434); RBC 2.48 M/mm3 (4.00-5.60); RDW 21.2 % (11.9-15.9)
[2018-11-16 08:43] LABS: ALBUMIN 2.1 g/dl (3.4-5.0); BILIRUBIN,TOTAL 0.5 mg/dL (0.2-1); BLOOD UREA NITROGEN 19.6 mg/dL (7-18); CALCIUM 8.9 mg/dL (8.5-10.1); CREATININE 2.2 mg/dL (0.55-1.3); POTASSIUM 3.4 mmol/L (3.5-5.1); TOT PROT 5.2 g/dl (6.4-8.2)
[2018-11-16] MEDS: GABAPENTIN 400 MG CAPSULE (FP) PO SCH ×2 (10:46→22:45)
[2018-11-16] MEDS: CYANOCOBALAMIN 1,000 MCG TABLET (FP) PO SCH (10:46)
[2018-11-16] MEDS: oxyCODONE HCL 10 MG SUSTAINED ACTING TABLET PO SCH ×2 (10:46→22:44)
[2018-11-16] MEDS: ALLOPURINOL 300 MG TABLET (FP) PO SCH (10:46)
[2018-11-16] MEDS: PANTOPRAZOLE 20 MG TABLET (FP) PO SCH (10:47)
[2018-11-16] MEDS: DRONABINOL 2.5 MG CAPSULE PO SCH (10:47)
[2018-11-16] MEDS: NYSTATIN 100,000 UNIT/GM TOPICAL CREAM 15 GM TUBE TP SCH (10:47)
[2018-11-16] MEDS: METOPROLOL TARTRATE 25 MG TABLET (FP) PO SCH ×2 (10:47→22:45)
[2018-11-16] MEDS: ZINC OXIDE 20% TOPICAL OINTMENT 30 GM TUBE TP SCH (10:47)
[2018-11-16] MEDS: BENZOCAINE/MENTH/CETYLPYRD CL 1 EACH LOZENGE MM PRN ×2 (11:25→17:40)
[2018-11-16] MEDS: guaiFENesin 200 MG/10 ML 10 ML UNIT-DOSE CUPS PO PRN ×2 (11:25→17:40)
--- NOTE | 2018-11-16 11:30 | PN ---
Progress Note (short form) - Note Progress Note: pt seen/ examined comfortable at bedside feels better passing urine cr improving low grade temp last night Vital Signs Temp 98.4 F 11/16/18 06:00 Pulse 88 11/16/18 06:00 Resp 20 11/16/18 06:00 BP 109/56 L 11/16/18 06:00 Pulse Ox 93 L 11/15/18 21:00 Intake & Output 11/15/18 11/15/18 11/16/18 11:59 23:59 11:59 Intake Total 1200 600 600 Balance 1200 600 600 Weight 190 lb 190 lb 8 oz Intake: IV 1200 600 600 D5-1/2Ns - 1,000 ml @ 100 1200 600 600 mls/hr IV ASDIR JAMIE Rx#: [id number] Other: Voiding Method Urinal Urinal # Unmeasured Voids Void 3 4 1 Bowel Movement No No No Weight Measurement Method Built in [facility] Active Medications Acetaminophen (Tylenol -) 325 mg PO QID PRN PRN Reason: PAIN Last Admin: 11/14/18 22:03 Dose: 325 mg Allopurinol (Zyloprim -) 300 mg PO DAILY [facility] Last Admin: 11/16/18 10:46 Dose: 300 mg Benzocaine/Menthol (Cepacol Lozenge -) 1 each MM PRN PRN PRN Reason: SORE THROAT Last Admin: 11/16/18 11:25 Dose: 1 each Cyanocobalamin (Vitamin B12 -) 2,500 mcg PO DAILY [facility] Last Admin: 11/16/18 10:46 Dose: 2,500 mcg Dronabinol (Marinol -) 2.5 mg PO DAILY [facility] Last Admin: 11/16/18 10:47 Dose: 2.5 mg Gabapentin (Neurontin -) 400 mg PO BID [facility] Last Admin: 11/16/18 10:46 Dose: 400 mg Guaifenesin (Robitussin -) 10 ml PO Q4H PRN PRN Reason: COUGH Last Admin: 11/16/18 11:25 Dose: 10 ml Potassium Chloride/Dextrose/Sod Cl (D5-1/2ns+20 Meq Kcl -) 20 meq in 1,000 mls @ 100 mls/hr IV ASDIR JAMIE Insulin Aspart (Novolog Vial Sliding Scale -) 1 vial SQ ACHS [facility]; Protocol Last Admin: 11/16/18 06:00 Dose: Not Given Metoclopramide HCl (Reglan -) 10 mg PO TIDAC [facility] Last Admin: 11/16/18 10:46 Dose: 10 mg Metoprolol Tartrate (Lopressor -) 12.5 mg PO BID [facility] Last Admin: 11/16/18 10:47 Dose: Not Given Multi-Ingredient Ointment (Zinc Oxide) 1 applic TP DAILY [facility] Last Admin: 11/16/18 10:47 Dose: 1 applic Nystatin (Mycostatin Cream -) 1 applic TP DAILY [facility] Last Admin: 11/16/18 10:47 Dose: 1 applic Ondansetron HCl (Zofran Injection) 4 mg IVPUSH Q8H PRN PRN Reason: NAUSEA AND/OR VOMITING Oxycodone HCl (Oxycontin -) 10 mg PO BID [facility] Last Admin: 11/16/18 10:46 Dose: 10 mg Pantoprazole Sodium (Protonix -) 20 mg PO DAILY [facility] Last Admin: 11/16/18 10:47 Dose: 20 mg CBC, BMP 11/16/18 07:14 11/16/18 07:14 Microbiology 11/12/18 22:50 Blood Culture - Preliminary Blood - Peripheral Venous NO GROWTH OBTAINED AFTER 72 HOURS, INCUBATION TO CONTINUE FOR 2 DAYS. 11/12/18 22:50 Blood Culture - Preliminary Blood - Peripheral Venous NO GROWTH OBTAINED AFTER 72 HOURS, INCUBATION TO CONTINUE FOR 2 DAYS. 11/10/18 19:30 Blood Culture - Final Blood - Peripheral Venous NO GROWTH AFTER 5 DAYS INCUBATION 11/10/18 19:20 Blood Culture - Final Blood - Peripheral Venous NO GROWTH AFTER 5 DAYS INCUBATION Physical Exam. Awake/ comfortable [id number] Lungs - diminished at bases. Abd- soft, Non tender no edema alert and awake PLAN Fever--Still having low-grade- better Vanco toxicity arf--monitor-- better tumor fever ? Other problems as listed Continue present care avoid nsaids mild hydration f/u labs will follow discussed with nursing staff also Continue present care change fluids with k supplement monitor labs vanco level will follow Problem List - Problems (1) Sepsis Code(s): A41.9 - SEPSIS, UNSPECIFIED ORGANISM (2) Atrial fibrillation Code(s): I48.91 - UNSPECIFIED ATRIAL FIBRILLATION Qualifiers: Atrial fibrillation type: unspecified Qualified Code(s): I48.91 - Unspecified atrial fibrillation (3) Colon cancer metastasized to liver Code(s): C18.9 - MALIGNANT NEOPLASM OF COLON, UNSPECIFIED; C78.7 - SECONDARY MALIG NEOPLASM OF LIVER AND INTRAHEPATIC BILE DUCT (4) Failure to thrive Code(s): [id number] - Qualifiers: Failure to thrive age range: in adult Qualified Code(s): R62.7 - Adult failure to thrive
[2018-11-16] MEDS: D5-1/2NS+20 MEQ KCL - 20 MEQ/1,000 ML INFUS.BAG IV SCH (14:00)
[2018-11-16] MEDS: ACETAMINOPHEN 325 MG TABLET (FP) PO PRN (14:00)
[2018-11-16] MEDS ORDERED: INSULIN (NOVOLOG) ASPART 100 UNITS/ML 10ML VIAL ONE (17:36)
[2018-11-17] MEDS: METOCLOPRAMIDE HCL 10 MG TABLET (FP) PO SCH ×3 (07:02→18:04)
[2018-11-17] MEDS: INSULIN SLIDING SCALE (NOVOLOG) 1 VIAL SQ SCH ×4 (07:03→22:51)
[2018-11-17 07:07] LABS: BASO % 0.9 % (0-2.0); EOS % 5.7 % (0-4.5); HEMATOCRIT 26.6 % (35.4-49); HEMOGLOBIN 8.8 GM/dL (11.7-16.9); LYMPH % 14.6 % (8-40); MCH 30.9 pg (25.7-33.7); MCHC 32.9 g/dl (32.0-35.9); MEAN CELL VOLUME 93.9 fl (80-96); MEAN PLT VOLUME 8.9 fl (7.5-11.1); MONO % 7.8 % (3.8-10.2); PLATELET COUNT 67 K/MM3 (134-434); RBC 2.84 M/mm3 (4.00-5.60); RDW 21.3 % (11.9-15.9); WHITE BLOOD COUNT 4.5 K/mm3 (4.0-10.0)
[2018-11-17 07:24] LABS: ALBUMIN 2.4 g/dl (3.4-5.0); BILIRUBIN,TOTAL 0.6 mg/dL (0.2-1); BLOOD UREA NITROGEN 17.2 mg/dL (7-18); CALCIUM 9.1 mg/dL (8.5-10.1); POTASSIUM 3.7 mmol/L (3.5-5.1); TOT PROT 5.7 g/dl (6.4-8.2)
[2018-11-17] MEDS: ALLOPURINOL 300 MG TABLET (FP) PO SCH (09:45)
[2018-11-17] MEDS: GABAPENTIN 400 MG CAPSULE (FP) PO SCH ×2 (09:45→22:50)
[2018-11-17] MEDS: oxyCODONE HCL 10 MG SUSTAINED ACTING TABLET PO SCH ×2 (09:45→22:50)
[2018-11-17] MEDS: PANTOPRAZOLE 20 MG TABLET (FP) PO SCH (09:45)
[2018-11-17] MEDS: CYANOCOBALAMIN 1,000 MCG TABLET (FP) PO SCH (09:45)
[2018-11-17] MEDS: METOPROLOL TARTRATE 25 MG TABLET (FP) PO SCH ×2 (09:46→22:50)
--- NOTE | 2018-11-17 09:52 | PN ---
Progress Note (short form) - Note Progress Note: comfortable no distress eating ok cr continue to improve low grade temp. Vital Signs Temp 98.1 F 11/17/18 06:00 Pulse 84 11/17/18 06:00 Resp 20 11/17/18 06:00 BP 112/66 11/17/18 06:00 Pulse Ox 93 L 11/16/18 09:00 Intake & Output 11/16/18 11/16/18 11/17/18 11:59 23:59 11:59 Intake Total 600 1680 0 Balance 600 1680 0 Weight 190 lb 8 oz 193 lb 12.8 oz Intake: IV 600 1200 0 D5-1/2NS+20 MEQ KCL - 20 800 0 meq In 1,000 ml @ 100 mls /hr IV ASDIR JAMIE Rx#: [id number] D5-1/2Ns - 1,000 ml @ 100 600 400 mls/hr IV ASDIR JAMIE Rx#: [id number] Oral 480 Other: Voiding Method Urinal Urinal # Unmeasured Voids Void 1 3 Bowel Movement No Yes: small # Bowel Movements 2 Body Mass Index (BMI) 28.0 Weight Measurement Method Built in [facility] Active Medications Acetaminophen (Tylenol -) 325 mg PO QID PRN PRN Reason: PAIN Last Admin: 11/16/18 14:00 Dose: 325 mg Allopurinol (Zyloprim -) 300 mg PO DAILY [facility] Last Admin: 11/17/18 09:45 Dose: 300 mg Benzocaine/Menthol (Cepacol Lozenge -) 1 each MM PRN PRN PRN Reason: SORE THROAT Last Admin: 11/16/18 17:40 Dose: 1 each Cyanocobalamin (Vitamin B12 -) 2,500 mcg PO DAILY [facility] Last Admin: 11/17/18 09:45 Dose: 2,500 mcg Dronabinol (Marinol -) 2.5 mg PO DAILY [facility] Last Admin: 11/16/18 10:47 Dose: 2.5 mg Gabapentin (Neurontin -) 400 mg PO BID [facility] Last Admin: 11/17/18 09:45 Dose: 400 mg Guaifenesin (Robitussin -) 10 ml PO Q4H PRN PRN Reason: COUGH Last Admin: 11/16/18 17:40 Dose: 10 ml Potassium Chloride/Dextrose/Sod Cl (D5-1/2ns+20 Meq Kcl -) 20 meq in 1,000 mls @ 100 mls/hr IV ASDIR [facility] Last Admin: 11/16/18 14:00 Dose: 100 mls/hr Insulin Aspart (Novolog Vial Sliding Scale -) 1 vial SQ ACHS [facility]; Protocol Last Admin: 11/17/18 07:03 Dose: Not Given Metoclopramide HCl (Reglan -) 10 mg PO TIDAC [facility] Last Admin: 11/17/18 07:02 Dose: 10 mg Metoprolol Tartrate (Lopressor -) 12.5 mg PO BID [facility] Last Admin: 11/17/18 09:46 Dose: 12.5 mg Multi-Ingredient Ointment (Zinc Oxide) 1 applic TP DAILY [facility] Last Admin: 11/16/18 10:47 Dose: 1 applic Nystatin (Mycostatin Cream -) 1 applic TP DAILY [facility] Last Admin: 11/16/18 10:47 Dose: 1 applic Ondansetron HCl (Zofran Injection) 4 mg IVPUSH Q8H PRN PRN Reason: NAUSEA AND/OR VOMITING Oxycodone HCl (Oxycontin -) 10 mg PO BID [facility] Last Admin: 11/17/18 09:45 Dose: 10 mg Pantoprazole Sodium (Protonix -) 20 mg PO DAILY [facility] Last Admin: 11/17/18 09:45 Dose: 20 mg CBC, BMP 11/17/18 06:20 11/17/18 06:20 Physical Exam. Awake/ comfortable [id number] Lungs - diminished at bases. Abd- soft, Non tender. bs + no edema alert and awake PLAN Fever--- better Vanco toxicity- monitor level arf--monitor-- better tumor fever ? Other problems as listed Continue present care avoid nsaids mild hydration f/u labs will follow discussed with nursing staff also Continue present care change fluids with k supplement monitor labs vanco level-- normalized will follow Problem List - Problems (1) Sepsis Code(s): A41.9 - SEPSIS, UNSPECIFIED ORGANISM (2) Atrial fibrillation Code(s): I48.91 - UNSPECIFIED ATRIAL FIBRILLATION Qualifiers: Atrial fibrillation type: unspecified Qualified Code(s): I48.91 - Unspecified atrial fibrillation (3) Colon cancer metastasized to liver Code(s): C18.9 - MALIGNANT NEOPLASM OF COLON, UNSPECIFIED; C78.7 - SECONDARY MALIG NEOPLASM OF LIVER AND INTRAHEPATIC BILE DUCT (4) Failure to thrive Code(s): [id number] - Qualifiers: Failure to thrive age range: in adult Qualified Code(s): R62.7 - Adult failure to thrive Problem List - Problems (1) Sepsis Code(s): A41.9 - SEPSIS, UNSPECIFIED ORGANISM (2) Atrial fibrillation Code(s): I48.91 - UNSPECIFIED ATRIAL FIBRILLATION Qualifiers: Atrial fibrillation type: unspecified Qualified Code(s): I48.91 - Unspecified atrial fibrillation (3) Colon cancer metastasized to liver Code(s): C18.9 - MALIGNANT NEOPLASM OF COLON, UNSPECIFIED; C78.7 - SECONDARY MALIG NEOPLASM OF LIVER AND INTRAHEPATIC BILE DUCT (4) Failure to thrive Code(s): [id number] - Qualifiers: Failure to thrive age range: in adult Qualified Code(s): R62.7 - Adult failure to thrive
[2018-11-17] MEDS ORDERED: PT OWN MED DRAWER 7, Y5N ONE (10:44)
[2018-11-17] MEDS: ZINC OXIDE 20% TOPICAL OINTMENT 30 GM TUBE TP SCH (10:56)
[2018-11-17] MEDS: NYSTATIN 100,000 UNIT/GM TOPICAL CREAM 15 GM TUBE TP SCH (10:56)
[2018-11-17 11:24] LABS: ANISOCYTOSIS 2+; MACROCYTOSIS 1+; OVALOCYTE 1+; PLATELET ESTIMATE DECREASED; TEAR DROP CELLS 1+
[2018-11-17] MEDS ORDERED: INSULIN (NOVOLOG) ASPART 100 UNITS/ML 10ML VIAL ONE ×2 (11:44→22:42)
[2018-11-17] MEDS: D5-1/2NS+20 MEQ KCL - 20 MEQ/1,000 ML INFUS.BAG IV SCH (11:56)
[2018-11-17] MEDS: DRONABINOL 2.5 MG CAPSULE PO SCH (14:02)
[2018-11-17] MEDS: guaiFENesin 200 MG/10 ML 10 ML UNIT-DOSE CUPS PO PRN (18:51)
[2018-11-18] MEDS: METOCLOPRAMIDE HCL 10 MG TABLET (FP) PO SCH ×3 (06:09→17:26)
[2018-11-18] MEDS: INSULIN SLIDING SCALE (NOVOLOG) 1 VIAL SQ SCH ×4 (06:12→21:55)
[2018-11-18 07:57] LABS: ALBUMIN 2.4 g/dl (3.4-5.0); BILIRUBIN,TOTAL 0.6 mg/dL (0.2-1); BLOOD UREA NITROGEN 18.4 mg/dL (7-18); POTASSIUM 3.7 mmol/L (3.5-5.1); TOT PROT 5.6 g/dl (6.4-8.2)
[2018-11-18 08:17] LABS: INR 1.03 (0.83-1.09); PROTHROMBIN TIME (PATIENT) 12.1 SEC (9.7-13.0)
[2018-11-18 08:20] LABS: ACTIVATED PTT 29.9 SECONDS (25.2-36.5)
[2018-11-18 08:21] LABS: EOS % 5.6 % (0-4.5); HEMATOCRIT 25.5 % (35.4-49); HEMOGLOBIN 8.4 GM/dL (11.7-16.9); LYMPH % 16.3 % (8-40); MCH 31.2 pg (25.7-33.7); MCHC 33.1 g/dl (32.0-35.9); MEAN CELL VOLUME 94.2 fl (80-96); MEAN PLT VOLUME 8.6 fl (7.5-11.1); MONO % 8.5 % (3.8-10.2); NEUT % 68.6 % (42.8-82.8); PLATELET COUNT 68 K/MM3 (134-434); RDW 21.3 % (11.9-15.9); WHITE BLOOD COUNT 4.4 K/mm3 (4.0-10.0)
[2018-11-18] MEDS ORDERED: PT OWN MED DRAWER 7, Y5N ONE (09:44)
[2018-11-18] MEDS: CYANOCOBALAMIN 1,000 MCG TABLET (FP) PO SCH (09:48)
[2018-11-18] MEDS: PANTOPRAZOLE 20 MG TABLET (FP) PO SCH (09:49)
[2018-11-18] MEDS: METOPROLOL TARTRATE 25 MG TABLET (FP) PO SCH ×2 (09:49→21:57)
[2018-11-18] MEDS: ALLOPURINOL 300 MG TABLET (FP) PO SCH (09:50)
[2018-11-18] MEDS: oxyCODONE HCL 10 MG SUSTAINED ACTING TABLET PO SCH ×2 (09:50→21:57)
[2018-11-18] MEDS: DRONABINOL 2.5 MG CAPSULE PO SCH (09:50)
[2018-11-18] MEDS: GABAPENTIN 400 MG CAPSULE (FP) PO SCH ×2 (09:50→21:58)
[2018-11-18] MEDS: NYSTATIN 100,000 UNIT/GM TOPICAL CREAM 15 GM TUBE TP SCH (09:51)
[2018-11-18] MEDS: ZINC OXIDE 20% TOPICAL OINTMENT 30 GM TUBE TP SCH (09:52)
--- NOTE | 2018-11-18 12:43 | PN ---
Progress Note (short form) - Note Progress Note: comfortable no distress eating better no i/v access- since yesterday-- encouraged to drink fluids. Vital Signs Temp 99.2 F 11/18/18 06:00 Pulse 96 H 11/18/18 06:00 Resp 20 11/18/18 06:00 BP 102/62 11/18/18 06:00 Pulse Ox 96 11/18/18 09:00 Intake & Output 11/17/18 11/18/18 11/18/18 23:59 11:59 23:59 Intake Total 400 1120 Balance 400 1120 Weight 190 lb 11.2 oz Intake: IV 1000 D5-1/2NS+20 MEQ KCL - 20 1000 meq In 1,000 ml @ 100 mls /hr IV ASDIR JAMIE Rx#: [id number] IVPB 0 Oral 400 120 Other: Voiding Method Urinal Urinal # Unmeasured Voids Void 3 2 Bowel Movement Yes No Weight Measurement Method Built in [facility] Active Medications Acetaminophen (Tylenol -) 325 mg PO QID PRN PRN Reason: PAIN Last Admin: 11/16/18 14:00 Dose: 325 mg Allopurinol (Zyloprim -) 300 mg PO DAILY [facility] Last Admin: 11/18/18 09:50 Dose: 300 mg Benzocaine/Menthol (Cepacol Lozenge -) 1 each MM PRN PRN PRN Reason: SORE THROAT Last Admin: 11/16/18 17:40 Dose: 1 each Cyanocobalamin (Vitamin B12 -) 2,500 mcg PO DAILY [facility] Last Admin: 11/18/18 09:48 Dose: 2,500 mcg Dronabinol (Marinol -) 2.5 mg PO DAILY [facility] Last Admin: 11/18/18 09:50 Dose: 2.5 mg Gabapentin (Neurontin -) 400 mg PO BID [facility] Last Admin: 11/18/18 09:50 Dose: 400 mg Guaifenesin (Robitussin -) 10 ml PO Q4H PRN PRN Reason: COUGH Last Admin: 11/17/18 18:51 Dose: 10 ml Potassium Chloride/Dextrose/Sod Cl (D5-1/2ns+20 Meq Kcl -) 20 meq in 1,000 mls @ 100 mls/hr IV ASDIR JAMIE Last Admin: 11/17/18 11:56 Dose: Not Given Insulin Aspart (Novolog Vial Sliding Scale -) 1 vial SQ ACHS [facility]; Protocol Last Admin: 11/18/18 11:17 Dose: Not Given Metoclopramide HCl (Reglan -) 10 mg PO TIDAC [facility] Last Admin: 11/18/18 11:18 Dose: 10 mg Metoprolol Tartrate (Lopressor -) 12.5 mg PO BID [facility] Last Admin: 11/18/18 09:49 Dose: 12.5 mg Multi-Ingredient Ointment (Zinc Oxide) 1 applic TP DAILY [facility] Last Admin: 11/18/18 09:52 Dose: 1 applic Nystatin (Mycostatin Cream -) 1 applic TP DAILY [facility] Last Admin: 11/18/18 09:51 Dose: 1 applic Ondansetron HCl (Zofran Injection) 4 mg IVPUSH Q8H PRN PRN Reason: NAUSEA AND/OR VOMITING Oxycodone HCl (Oxycontin -) 10 mg PO BID [facility] Last Admin: 11/18/18 09:50 Dose: 10 mg Pantoprazole Sodium (Protonix -) 20 mg PO DAILY [facility] Last Admin: 11/18/18 09:49 Dose: 20 mg CBC, BMP 11/18/18 07:00 11/18/18 07:00 Physical Exam. Awake/ comfortable [id number] Lungs - diminished at bases. Abd- soft, Non tender. bs + no edema alert and awake PLAN Fever--- better Vanco toxicity- monitor level arf--monitor-- better tumor fever ? Other problems as listed Continue present care avoid nsaids drink fluids will consult renal will follow Discussed with Dr. Sim yesterday also Problem List - Problems (1) Sepsis Code(s): A41.9 - SEPSIS, UNSPECIFIED ORGANISM (2) Atrial fibrillation Code(s): I48.91 - UNSPECIFIED ATRIAL FIBRILLATION Qualifiers: Atrial fibrillation type: unspecified Qualified Code(s): I48.91 - Unspecified atrial fibrillation (3) Colon cancer metastasized to liver Code(s): C18.9 - MALIGNANT NEOPLASM OF COLON, UNSPECIFIED; C78.7 - SECONDARY MALIG NEOPLASM OF LIVER AND INTRAHEPATIC BILE DUCT (4) Failure to thrive Code(s): [id number] - Qualifiers: Failure to thrive age range: in adult Qualified Code(s): R62.7 - Adult failure to thrive
--- NOTE | 2018-11-18 13:30 | PN ---
Progress Note, Physician History of Present Illness: AWAKE, ALERT IN BED FEVERS RESOLVED NO C/O ABDOMINAL PAIN NO DIARRHEA ORAL INTAKE BETTER RENAL FUNCTION IMPROVED - Current Medication List Current Medications: Active Medications Acetaminophen (Tylenol -) 325 mg PO QID PRN PRN Reason: PAIN Last Admin: 11/16/18 14:00 Dose: 325 mg Allopurinol (Zyloprim -) 300 mg PO DAILY [facility] Last Admin: 11/18/18 09:50 Dose: 300 mg Benzocaine/Menthol (Cepacol Lozenge -) 1 each MM PRN PRN PRN Reason: SORE THROAT Last Admin: 11/16/18 17:40 Dose: 1 each Cyanocobalamin (Vitamin B12 -) 2,500 mcg PO DAILY [facility] Last Admin: 11/18/18 09:48 Dose: 2,500 mcg Dronabinol (Marinol -) 2.5 mg PO DAILY [facility] Last Admin: 11/18/18 09:50 Dose: 2.5 mg Gabapentin (Neurontin -) 400 mg PO BID [facility] Last Admin: 11/18/18 09:50 Dose: 400 mg Guaifenesin (Robitussin -) 10 ml PO Q4H PRN PRN Reason: COUGH Last Admin: 11/17/18 18:51 Dose: 10 ml Potassium Chloride/Dextrose/Sod Cl (D5-1/2ns+20 Meq Kcl -) 20 meq in 1,000 mls @ 100 mls/hr IV ASDIR [facility] Last Admin: 11/17/18 11:56 Dose: Not Given Vancomycin HCl 1,000 mg/ (Dextrose) 250 mls @ 166.667 mls/hr IVPB ONCE ONE; Protocol Stop: 11/18/18 14:56 Insulin Aspart (Novolog Vial Sliding Scale -) 1 vial SQ ACHS [facility]; Protocol Last Admin: 11/18/18 11:17 Dose: Not Given Metoclopramide HCl (Reglan -) 10 mg PO TIDAC [facility] Last Admin: 11/18/18 11:18 Dose: 10 mg Metoprolol Tartrate (Lopressor -) 12.5 mg PO BID [facility] Last Admin: 11/18/18 09:49 Dose: 12.5 mg Multi-Ingredient Ointment (Zinc Oxide) 1 applic TP DAILY [facility] Last Admin: 11/18/18 09:52 Dose: 1 applic Nystatin (Mycostatin Cream -) 1 applic TP DAILY [facility] Last Admin: 11/18/18 09:51 Dose: 1 applic Ondansetron HCl (Zofran Injection) 4 mg IVPUSH Q8H PRN PRN Reason: NAUSEA AND/OR VOMITING Oxycodone HCl (Oxycontin -) 10 mg PO BID [facility] Last Admin: 11/18/18 09:50 Dose: 10 mg Pantoprazole Sodium (Protonix -) 20 mg PO DAILY [facility] Last Admin: 11/18/18 09:49 Dose: 20 mg - Objective Vital Signs: Vital Signs Temperature 99.2 F 11/18/18 06:00 Pulse Rate 96 H 11/18/18 06:00 Respiratory Rate 20 11/18/18 06:00 Blood Pressure 102/62 11/18/18 06:00 O2 Sat by Pulse Oximetry (%) 96 11/18/18 09:00 Constitutional: Yes: No Distress Eyes: Yes: Conjunctiva Clear Cardiovascular: Yes: Regular Rate and Rhythm, S1, S2 Respiratory: Yes: Diminished Gastrointestinal: Yes: Normal Bowel Sounds, Soft, Abdomen, Obese. No: Tenderness Labs: CBC, BMP 11/18/18 07:00 11/18/18 07:00 INR, PTT INR 1.03 (0.83-1.09) 11/18/18 07:00 Fibrinogen > 500.0 mg/dL (238-498) H 11/18/18 07:00 Assessment/Plan RECURRENT MRSA BACTEREMIA ? INFECTED HEPATIC MASS ANA IMPROVED METASTATIC COLON CA REPEAT BC NO GROWTH DAY #26 ANTISTAPHYLOCOCCAL THERAPY REDOSE VANCOMYCIN REPEAT LEVEL AM HYDRATION
[2018-11-18] MEDS ORDERED: VANCOMYCIN 1 GRAM (PRE-DOCKED) 1,000 MG/250 ML BAG IVPB ONE (14:00)
[2018-11-18] MEDS: D5-1/2NS+20 MEQ KCL - 20 MEQ/1,000 ML INFUS.BAG IV SCH (14:30)
[2018-11-18] MEDS: guaiFENesin 200 MG/10 ML 10 ML UNIT-DOSE CUPS PO PRN (14:56)
--- NOTE | 2018-11-18 15:41 | CONSULT ---
Consult Consult Specialty:: Nephrology Reason for Consultation:: ANA - History of Present Illness Chief Complaint: initially presented with abdominal pain History of Present Illness: Pt is a 73 year old male with pmhx of multiple myeloma, colon cancer s/p resection, a-fib, dm and htn who initially presented with abdominal pain. I was called to evaluate him today for ANA. His renal function began to worsen around 11/13. He denies history of CKD however he did have abnormal renal function in the past. He denies dysuria or hematuria. He did have elevated vanco levels and he did get iodinated contrast. He denies shortness of breath. He denies fevers or chills. He has also had decreased appetite. 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), GERD, Other (Schatzki ring dilated 04/30/17) Hepatobiliary: Yes: Other (colon cancer metastases, fatty liver) Infectious Disease: Yes: C-Diff, MRSA (CVP port) Psych: Yes: Addictions (recovering alcoholic since 1982), Depression Musculoskeletal: Yes: Chronic low back pain, Osteoarthritis, Other (h/o steroid induced myositis) Rheumatology: Yes: Gout Endocrine: Yes: Diabetes Mellitus Additional Medical History: glaucoma with decreased vision and need for surgeryleft eye - Past Surgical History Past Surgical History: Yes: Arthrosocopy (left knee), Cataract Removal ( bilateral), Colectomy (extended right hemicolectomy for transverse colon cancer with umbilical hernia repair& MARY ANNE 12/06/17- Dr Ribeiro ), Colonoscopy, Hernia Repair (umbilical hernia repair with right hemicolectomy), Tonsillectomy, Upper Endoscopy Additional Surgical History: 05/06 PEG insertion, removed 11/03 - Alcohol/Substance Use Hx Alcohol Use: No History of Substance Use: reports: None - Smoking History Smoking history: Former smoker Have you smoked in the past 12 months: No If you are a former smoker, when did you quit?: 1975 - Social History Usual Living Arrangement: [facility] (Currently residing in [facility]) ADL: Independent 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 History of Recent Travel: No Home Medications - Allergies Allergies/Adverse Reactions: Allergies Allergy/AdvReac Type Severity Reaction Status Date / Time No Known Allergies Allergy Verified 10/21/18 15:16 - Home Medications Home Medications: Ambulatory Orders Gabapentin 400 mg PO BID 10/04/16 Allopurinol 300 mg PO DAILY 10/21/17 Cyanocobalamin (Vitamin B-12) [Vitamin B12] 2,500 mcg PO DAILY 10/21/17 Oxycodone HCl [Oxycontin] 10 mg PO PRN PRN 10/21/17 oxyCODONE HCL [Roxicodone -] 10 mg PO Q4H PRN #30 tablet MDD 4 10/11/18 Metoprolol Tartrate 12.5 mg PO BID #60 tablet 10/13/18 Acetaminophen 325 mg PO QID PRN 10/21/18 Nystatin 1 each MC DAILY 10/21/18 Omeprazole 20 mg PO DAILY 10/21/18 Zinc Oxide 20% Topical Oint 454 gm NR DAILY 10/21/18 Dronabinol [Marinol -] 2.5 mg PO DAILY capsule MDD 1 11/11/18 Vancomycin 1,250 mg IVPB Q12H #18 vial 11/11/18 Family Disease History - Family Disease History Family Disease History: Other: Father (: 68: lung Ca), Mother (: 60's: myeloid leukemia ), Brother (1, : 65: colon cancer), Son (1, healthy), Daughter (1 with SLE) Review of Systems - Review of Systems Constitutional: reports: Malaise. denies: Chills Eyes: reports: No Symptoms HENT: reports: No Symptoms Neck: reports: No Symptoms Cardiovascular: reports: No Symptoms Respiratory: reports: No Symptoms Gastrointestinal: reports: No Symptoms Genitourinary: reports: No Symptoms Musculoskeletal: reports: Muscle Weakness Integumentary: reports: No Symptoms Neurological: reports: No Symptoms Endocrine: reports: No Symptoms Hematology/Lymphatic: reports: No Symptoms Physical Exam Vital Signs: Vital Signs Temperature 98.9 F 11/18/18 14:00 Pulse Rate 92 H 11/18/18 14:00 Respiratory Rate 20 11/18/18 14:00 Blood Pressure 110/57 L 11/18/18 14:00 O2 Sat by Pulse Oximetry (%) 96 11/18/18 09:00 Constitutional: Yes: Calm Eyes: Yes: Conjunctiva Clear HENT: Yes: Atraumatic Neck: Yes: Supple Cardiovascular: Yes: S1, S2 Respiratory: Yes: CTA Bilaterally Gastrointestinal: Yes: Soft Renal/: Yes: WNL Musculoskeletal: Yes: Muscle Weakness Edema: No Neurological: Yes: Oriented Psychiatric: Yes: Oriented Labs: CBC, BMP 11/18/18 07:00 11/18/18 07:00 Laboratory Tests 10/21/18 11/08/18 11/09/18 19:12 06:00 07:30 Creatinine 1.0 0.9 Urine Protein 1+ H Urine Blood Negative Random Vancomycin Vancomycin Pre-Dose 11/10/18 11/13/18 11/13/18 06:40 01:00 13:05 Creatinine 1.0 2.3 H Urine Protein Urine Blood Random Vancomycin Vancomycin Pre-Dose 42.4 H* 11/13/18 11/14/18 11/14/18 22:50 08:00 08:00 Creatinine 2.6 H Urine Protein 1+ H Urine Blood Negative Random Vancomycin 33.6 H* Vancomycin Pre-Dose 11/15/18 11/15/18 11/16/18 06:57 06:57 07:14 Creatinine 2.5 H 2.2 H Urine Protein Urine Blood Random Vancomycin 22.3 Vancomycin Pre-Dose 11/16/18 11/17/18 11/18/18 11:47 06:20 07:00 Creatinine 2.0 H 2.0 H Urine Protein Urine Blood Random Vancomycin 16.2 L Vancomycin Pre-Dose Imaging - Results Cat Scan: Report Reviewed Problem List - Problems (1) AAN (acute kidney injury) Code(s): N17.9 - ACUTE KIDNEY FAILURE, UNSPECIFIED (2) Atrial fibrillation Code(s): I48.91 - UNSPECIFIED ATRIAL FIBRILLATION Qualifiers: Atrial fibrillation type: unspecified Qualified Code(s): I48.91 - Unspecified atrial fibrillation (3) Colon cancer metastasized to liver Code(s): C18.9 - MALIGNANT NEOPLASM OF COLON, UNSPECIFIED; C78.7 - SECONDARY MALIG NEOPLASM OF LIVER AND INTRAHEPATIC BILE DUCT Assessment/Plan Current Medications Generic Name Dose Route Start Last Admin Trade Name Freq PRN Reason Stop Dose Admin Acetaminophen 325 mg 10/22/18 06:02 11/16/18 14:00 Tylenol - PO 325 mg QID PRN Administration PAIN Allopurinol 300 mg 10/22/18 10:00 11/18/18 09:50 Zyloprim - PO 300 mg DAILY JAMIE Administration Benzocaine/Menthol 1 each 11/10/18 11:36 11/16/18 17:40 Cepacol Lozenge - MM 1 each PRN PRN Administration SORE THROAT Cyanocobalamin 2,500 mcg 10/22/18 10:00 11/18/18 09:48 Vitamin B12 - PO 2,500 mcg DAILY JAMIE Administration Dronabinol 2.5 mg 10/29/18 10:00 11/18/18 09:50 Marinol - PO 2.5 mg DAILY JAMIE Administration Gabapentin 400 mg 10/22/18 10:00 11/18/18 09:50 Neurontin - PO 400 mg BID JAMIE Administration Guaifenesin 10 ml 11/10/18 11:36 11/18/18 14:56 Robitussin - PO 10 ml Q4H PRN Administration COUGH Potassium Chloride/Dextrose/Sod Cl 20 meq in 1,000 mls @ 100 mls/hr 11/16/18 11:30 11/17/18 11:56 D5-1/2ns+20 Meq Kcl - IV Not Given ASDIR [facility] Insulin Aspart 1 vial 10/22/18 11:00 11/18/18 11:17 Novolog Vial Sliding Scale - SQ Not Given ACHS [facility] Protocol Metoclopramide HCl 10 mg 11/02/18 16:30 11/18/18 11:18 Reglan - PO 10 mg TIDAC JAMIE Administration Metoprolol Tartrate 12.5 mg 10/22/18 10:00 11/18/18 09:49 Lopressor - PO 12.5 mg BID JAMIE Administration Multi-Ingredient Ointment 1 applic 10/22/18 10:00 11/18/18 09:52 Zinc Oxide TP 1 applic DAILY JAMIE Administration Nystatin 1 applic 10/22/18 10:00 11/18/18 09:51 Mycostatin Cream - TP 1 applic DAILY JAMIE Administration Ondansetron HCl 4 mg 10/22/18 06:01 Zofran Injection IVPUSH Q8H PRN NAUSEA AND/OR VOMITING Oxycodone HCl 10 mg 11/14/18 22:00 11/18/18 09:50 Oxycontin - PO 10 mg BID JAMIE Administration Pantoprazole Sodium 20 mg 10/22/18 10:00 11/18/18 09:49 Protonix - PO 20 mg DAILY JAIME Administration Impression 1. ANA 2. multiple myeloma 3. colon cancer 4. anemia 5. abd pain 6. a-fib 7. 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
[2018-11-18] MEDS ORDERED: INSULIN (NOVOLOG) ASPART 100 UNITS/ML 10ML VIAL ONE (17:08)
[2018-11-18 18:56] LABS: PH,URINE 6.5 (5.0-8.0); URINE APPEARANCE CLEAR; URINE BILIRUBIN NEGATIVE (NEGATIVE); URINE COLOR YELLOW; URINE GLUCOSE (UA) NEGATIVE (NEGATIVE); URINE KETONE NEGATIVE (NEGATIVE); URINE LEUK ESTERASE NEGATIVE (NEGATIVE); URINE NITRITE NEGATIVE (NEGATIVE); URINE PROTEIN NEGATIVE (NEGATIVE); URINE UROBILINOGEN 0.2 mg/dL (0.2-1.0)
[2018-11-19] MEDS: METOCLOPRAMIDE HCL 10 MG TABLET (FP) PO SCH ×3 (06:16→16:58)
[2018-11-19] MEDS: INSULIN SLIDING SCALE (NOVOLOG) 1 VIAL SQ SCH ×4 (06:17→22:09)
[2018-11-19] MEDS ORDERED: INSULIN (NOVOLOG) ASPART 100 UNITS/ML 10ML VIAL ONE ×2 (06:31→07:01)
[2018-11-19] MEDS ORDERED: INSULIN (LEVEMIR) 100 UNITS/ML UNITS SQ ONE (07:02)
[2018-11-19 08:18] LABS: BASO % 0.8 % (0-2.0); EOS % 4.9 % (0-4.5); HEMATOCRIT 24.5 % (35.4-49); HEMOGLOBIN 8.1 GM/dL (11.7-16.9); LYMPH % 17.8 % (8-40); MCH 31.5 pg (25.7-33.7); MCHC 33.1 g/dl (32.0-35.9); MEAN CELL VOLUME 95.3 fl (80-96); MEAN PLT VOLUME 8.8 fl (7.5-11.1); MONO % 9.3 % (3.8-10.2); NEUT % 67.2 % (42.8-82.8); PLATELET COUNT 68 K/MM3 (134-434); RBC 2.57 M/mm3 (4.00-5.60); RDW 20.9 % (11.9-15.9); WHITE BLOOD COUNT 3.8 K/mm3 (4.0-10.0)
[2018-11-19 08:48] LABS: ALBUMIN 2.4 g/dl (3.4-5.0); BILIRUBIN,TOTAL 0.6 mg/dL (0.2-1); BLOOD UREA NITROGEN 19.7 mg/dL (7-18); CALCIUM 9.1 mg/dL (8.5-10.1); POTASSIUM 3.8 mmol/L (3.5-5.1); TOT PROT 5.4 g/dl (6.4-8.2)
--- NOTE | 2018-11-19 09:07 | PN ---
Progress Note (short form) - Note Progress Note: RENAL Pt is awake and alert no problems urinating Last Vital Signs Temp Pulse Resp BP Pulse Ox 98.5 F 85 18 118/62 93 L 11/19/18 06:00 11/19/18 06:00 11/19/18 06:00 11/19/18 06:00 11/18/18 21:00 lungs clear cvs s1s2 rr abd soft, no suprapubic fullness ext no edema neuro a+ox3 CBC, BMP 11/19/18 07:15 11/19/18 07:15 Current Medications Generic Name Dose Route Start Last Admin Trade Name Freq PRN Reason Stop Dose Admin Acetaminophen 325 mg 10/22/18 06:02 11/16/18 14:00 Tylenol - PO 325 mg QID PRN Administration PAIN Allopurinol 300 mg 10/22/18 10:00 11/18/18 09:50 Zyloprim - PO 300 mg DAILY JAMIE Administration Benzocaine/Menthol 1 each 11/10/18 11:36 11/16/18 17:40 Cepacol Lozenge - MM 1 each PRN PRN Administration SORE THROAT Cyanocobalamin 2,500 mcg 10/22/18 10:00 11/18/18 09:48 Vitamin B12 - PO 2,500 mcg DAILY JAMIE Administration Dronabinol 2.5 mg 10/29/18 10:00 11/18/18 09:50 Marinol - PO 2.5 mg DAILY JAMIE Administration Gabapentin 400 mg 10/22/18 10:00 11/18/18 21:58 Neurontin - PO 400 mg BID JAMIE Administration Guaifenesin 10 ml 11/10/18 11:36 11/18/18 14:56 Robitussin - PO 10 ml Q4H PRN Administration COUGH Potassium Chloride/Dextrose/Sod Cl 20 meq in 1,000 mls @ 100 mls/hr 11/16/18 11:30 11/18/18 14:30 D5-1/2ns+20 Meq Kcl - IV 100 mls/hr ASDIR JAMIE Administration Insulin Aspart 1 vial 10/22/18 11:00 11/19/18 06:17 Novolog Vial Sliding Scale - SQ Not Given ACHS JAMIE Protocol Metoclopramide HCl 10 mg 11/02/18 16:30 11/19/18 06:16 Reglan - PO 10 mg TIDAC JAMIE Administration Metoprolol Tartrate 12.5 mg 10/22/18 10:00 11/18/18 21:57 Lopressor - PO 12.5 mg BID JAMIE Administration Multi-Ingredient Ointment 1 applic 10/22/18 10:00 11/18/18 09:52 Zinc Oxide TP 1 applic DAILY JAMIE Administration Nystatin 1 applic 10/22/18 10:00 11/18/18 09:51 Mycostatin Cream - TP 1 applic DAILY JAMIE Administration Ondansetron HCl 4 mg 10/22/18 06:01 Zofran Injection IVPUSH Q8H PRN NAUSEA AND/OR VOMITING Oxycodone HCl 10 mg 11/14/18 22:00 11/18/18 21:57 Oxycontin - PO 10 mg BID JAMIE Administration Pantoprazole Sodium 20 mg 10/22/18 10:00 11/18/18 09:49 Protonix - PO 20 mg DAILY JAMIE Administration Impression 1. ANA 2. multiple myeloma 3. colon cancer 4. anemia 5. abd pain 6. a-fib 7. sepsis 8. neuropathy s/p iv ig 9 liver mass Plan - cont to monitor renal function - ana likely multifactorial, can have MARIE and vanco toxicity - check renal ultrasound- was normal -avoid nephrotoxins -keep monitoring labs -cea , alpha fetoprotein MV
[2018-11-19] MEDS: CYANOCOBALAMIN 1,000 MCG TABLET (FP) PO SCH (10:28)
[2018-11-19] MEDS: GABAPENTIN 400 MG CAPSULE (FP) PO SCH ×2 (10:29→22:05)
[2018-11-19] MEDS: ALLOPURINOL 300 MG TABLET (FP) PO SCH (10:29)
[2018-11-19] MEDS: DRONABINOL 2.5 MG CAPSULE PO SCH (10:29)
[2018-11-19] MEDS: METOPROLOL TARTRATE 25 MG TABLET (FP) PO SCH ×2 (10:29→22:06)
[2018-11-19] MEDS: PANTOPRAZOLE 20 MG TABLET (FP) PO SCH (10:30)
[2018-11-19] MEDS: NYSTATIN 100,000 UNIT/GM TOPICAL CREAM 15 GM TUBE TP SCH (10:31)
[2018-11-19] MEDS: ZINC OXIDE 20% TOPICAL OINTMENT 30 GM TUBE TP SCH (10:31)
[2018-11-19] MEDS: oxyCODONE HCL 10 MG SUSTAINED ACTING TABLET PO SCH ×2 (10:35→22:06)
--- NOTE | 2018-11-19 11:49 | PN ---
Progress Note, Physician History of Present Illness: AWAKE, ALERT IN BED FEVERS RESOLVED NO C/O ABDOMINAL PAIN NO DIARRHEA ORAL INTAKE BETTER - Current Medication List Current Medications: Active Medications Acetaminophen (Tylenol -) 325 mg PO QID PRN PRN Reason: PAIN Last Admin: 11/16/18 14:00 Dose: 325 mg Allopurinol (Zyloprim -) 300 mg PO DAILY [facility] Last Admin: 11/19/18 10:29 Dose: 300 mg Benzocaine/Menthol (Cepacol Lozenge -) 1 each MM PRN PRN PRN Reason: SORE THROAT Last Admin: 11/16/18 17:40 Dose: 1 each Cyanocobalamin (Vitamin B12 -) 2,500 mcg PO DAILY [facility] Last Admin: 11/19/18 10:28 Dose: 2,500 mcg Dronabinol (Marinol -) 2.5 mg PO DAILY [facility] Last Admin: 11/19/18 10:29 Dose: 2.5 mg Gabapentin (Neurontin -) 400 mg PO BID [facility] Last Admin: 11/19/18 10:29 Dose: 400 mg Guaifenesin (Robitussin -) 10 ml PO Q4H PRN PRN Reason: COUGH Last Admin: 11/18/18 14:56 Dose: 10 ml Potassium Chloride/Dextrose/Sod Cl (D5-1/2ns+20 Meq Kcl -) 20 meq in 1,000 mls @ 100 mls/hr IV ASDIR [facility] Last Admin: 11/18/18 14:30 Dose: 100 mls/hr Insulin Aspart (Novolog Vial Sliding Scale -) 1 vial SQ ACHS [facility]; Protocol Last Admin: 11/19/18 11:12 Dose: Not Given Metoclopramide HCl (Reglan -) 10 mg PO TIDAC [facility] Last Admin: 11/19/18 06:16 Dose: 10 mg Metoprolol Tartrate (Lopressor -) 12.5 mg PO BID [facility] Last Admin: 11/19/18 10:29 Dose: 12.5 mg Multi-Ingredient Ointment (Zinc Oxide) 1 applic TP DAILY [facility] Last Admin: 11/19/18 10:31 Dose: 1 applic Nystatin (Mycostatin Cream -) 1 applic TP DAILY [facility] Last Admin: 11/19/18 10:31 Dose: 1 applic Ondansetron HCl (Zofran Injection) 4 mg IVPUSH Q8H PRN PRN Reason: NAUSEA AND/OR VOMITING Oxycodone HCl (Oxycontin -) 10 mg PO BID [facility] Last Admin: 11/19/18 10:35 Dose: 10 mg Pantoprazole Sodium (Protonix -) 20 mg PO DAILY [facility] Last Admin: 11/19/18 10:30 Dose: 20 mg - Objective Vital Signs: Vital Signs Temperature 98.8 F 11/19/18 10:00 Pulse Rate 83 11/19/18 10:00 Respiratory Rate 18 11/19/18 10:00 Blood Pressure 104/57 L 11/19/18 10:00 O2 Sat by Pulse Oximetry (%) 93 L 11/18/18 21:00 Constitutional: Yes: No Distress Eyes: Yes: Conjunctiva Clear Cardiovascular: Yes: Regular Rate and Rhythm, S1, S2 Respiratory: Yes: CTA Bilaterally Gastrointestinal: Yes: Normal Bowel Sounds, Soft. No: Tenderness Edema: No Labs: CBC, BMP 11/19/18 07:15 11/19/18 07:15 INR, PTT INR 1.03 (0.83-1.09) 11/18/18 07:00 Fibrinogen > 500.0 mg/dL (238-498) H 11/18/18 07:00 Assessment/Plan RECURRENT MRSA BACTEREMIA ? INFECTED HEPATIC MASS ANA IMPROVED METASTATIC COLON CA REPEAT BC NO GROWTH DAY #27 ANTISTAPHYLOCOCCAL THERAPY REDOSED VANCOMYCIN ONCE RENAL FUNCTION IMPROVES WILL START [facility] SUPPRESSIVE PO ANTIBIOTICS IN LIGHT OF RECURRENT MRSA BACTEREMIA HYDRATION
[2018-11-19] MEDS: D5-1/2NS+20 MEQ KCL - 20 MEQ/1,000 ML INFUS.BAG IV SCH (12:41)
--- NOTE | 2018-11-19 13:10 | PN ---
Progress Note (short form) - Note Progress Note: pt seen/ examined comfortable denies pain eating better i/d f/u noted - redosed vanco yesterday renal consult also noted u/s kidneys -ok Vital Signs Temp 98.8 F 11/19/18 10:00 Pulse 83 11/19/18 10:00 Resp 18 11/19/18 10:00 BP 104/57 L 11/19/18 10:00 Pulse Ox 93 L 11/18/18 21:00 Intake & Output 11/18/18 11/19/18 11/19/18 23:59 11:59 23:59 Intake Total 1890 Output Total 240 Balance 1650 Weight 186 lb 8 oz Intake: IV 1400 D5-1/2NS+20 MEQ KCL - 20 1400 meq In 1,000 ml @ 100 mls /hr IV ASDIR JAMIE Rx#: [id number] IVPB 250 Oral 240 Output: Urine 240 Void 240 Other: Voiding Method Urinal Urinal # Unmeasured Voids Void 1 Bowel Movement No # Bowel Movements 1 Active Medications Acetaminophen (Tylenol -) 325 mg PO QID PRN PRN Reason: PAIN Last Admin: 11/16/18 14:00 Dose: 325 mg Allopurinol (Zyloprim -) 300 mg PO DAILY [facility] Last Admin: 11/19/18 10:29 Dose: 300 mg Benzocaine/Menthol (Cepacol Lozenge -) 1 each MM PRN PRN PRN Reason: SORE THROAT Last Admin: 11/16/18 17:40 Dose: 1 each Cyanocobalamin (Vitamin B12 -) 2,500 mcg PO DAILY JAMIE Last Admin: 11/19/18 10:28 Dose: 2,500 mcg Dronabinol (Marinol -) 2.5 mg PO DAILY JAMIE Last Admin: 11/19/18 10:29 Dose: 2.5 mg Gabapentin (Neurontin -) 400 mg PO BID JAMIE Last Admin: 11/19/18 10:29 Dose: 400 mg Guaifenesin (Robitussin -) 10 ml PO Q4H PRN PRN Reason: COUGH Last Admin: 11/18/18 14:56 Dose: 10 ml Potassium Chloride/Dextrose/Sod Cl (D5-1/2ns+20 Meq Kcl -) 20 meq in 1,000 mls @ 100 mls/hr IV ASDIR JAMIE Last Admin: 11/19/18 12:41 Dose: 100 mls/hr Insulin Aspart (Novolog Vial Sliding Scale -) 1 vial SQ ACHS [facility]; Protocol Last Admin: 11/19/18 11:12 Dose: Not Given Metoclopramide HCl (Reglan -) 10 mg PO TIDAC [facility] Last Admin: 11/19/18 12:40 Dose: 10 mg Metoprolol Tartrate (Lopressor -) 12.5 mg PO BID [facility] Last Admin: 11/19/18 10:29 Dose: 12.5 mg Multi-Ingredient Ointment (Zinc Oxide) 1 applic TP DAILY [facility] Last Admin: 11/19/18 10:31 Dose: 1 applic Nystatin (Mycostatin Cream -) 1 applic TP DAILY [facility] Last Admin: 11/19/18 10:31 Dose: 1 applic Ondansetron HCl (Zofran Injection) 4 mg IVPUSH Q8H PRN PRN Reason: NAUSEA AND/OR VOMITING Oxycodone HCl (Oxycontin -) 10 mg PO BID [facility] Last Admin: 11/19/18 10:35 Dose: 10 mg Pantoprazole Sodium (Protonix -) 20 mg PO DAILY [facility] Last Admin: 11/19/18 10:30 Dose: 20 mg CBC, BMP 11/19/18 07:15 11/19/18 07:15 Physical Exam. Awake/ comfortable [id number] Lungs - diminished at bases. Abd- soft, Non tender. bs + no edema alert and awake PLAN Fever---resolved Vanco toxicity- redosed yesterday arf--monitor-- Continue present care avoid nsaids drink fluids will follow Problem List - Problems (1) Sepsis Code(s): A41.9 - SEPSIS, UNSPECIFIED ORGANISM (2) Atrial fibrillation Code(s): I48.91 - UNSPECIFIED ATRIAL FIBRILLATION Qualifiers: Atrial fibrillation type: unspecified Qualified Code(s): I48.91 - Unspecified atrial fibrillation (3) Colon cancer metastasized to liver Code(s): C18.9 - MALIGNANT NEOPLASM OF COLON, UNSPECIFIED; C78.7 - SECONDARY MALIG NEOPLASM OF LIVER AND INTRAHEPATIC BILE DUCT (4) Failure to thrive Code(s): EFD2513 - Qualifiers: Failure to thrive age range: in adult Qualified Code(s): R62.7 - Adult failure to thrive
[2018-11-19] MEDS: guaiFENesin 200 MG/10 ML 10 ML UNIT-DOSE CUPS PO PRN (15:10)
--- NOTE | 2018-11-19 23:07 | PN ---
Progress Note, Physician History of Present Illness: Feels well. Able to eat. Afebrile - Current Medication List Current Medications: Active Medications Acetaminophen (Tylenol -) 325 mg PO QID PRN PRN Reason: PAIN Last Admin: 11/16/18 14:00 Dose: 325 mg Allopurinol (Zyloprim -) 300 mg PO DAILY [facility] Last Admin: 11/19/18 10:29 Dose: 300 mg Benzocaine/Menthol (Cepacol Lozenge -) 1 each MM PRN PRN PRN Reason: SORE THROAT Last Admin: 11/16/18 17:40 Dose: 1 each Cyanocobalamin (Vitamin B12 -) 2,500 mcg PO DAILY [facility] Last Admin: 11/19/18 10:28 Dose: 2,500 mcg Dronabinol (Marinol -) 2.5 mg PO DAILY [facility] Last Admin: 11/19/18 10:29 Dose: 2.5 mg Gabapentin (Neurontin -) 400 mg PO BID [facility] Last Admin: 11/19/18 22:05 Dose: 400 mg Guaifenesin (Robitussin -) 10 ml PO Q4H PRN PRN Reason: COUGH Last Admin: 11/19/18 15:10 Dose: 10 ml Potassium Chloride/Dextrose/Sod Cl (D5-1/2ns+20 Meq Kcl -) 20 meq in 1,000 mls @ 100 mls/hr IV ASDIR [facility] Last Admin: 11/19/18 12:41 Dose: 100 mls/hr Insulin Aspart (Novolog Vial Sliding Scale -) 1 vial SQ ACHS [facility]; Protocol Last Admin: 11/19/18 22:09 Dose: Not Given Metoclopramide HCl (Reglan -) 10 mg PO TIDAC [facility] Last Admin: 11/19/18 16:58 Dose: 10 mg Metoprolol Tartrate (Lopressor -) 12.5 mg PO BID [facility] Last Admin: 11/19/18 22:06 Dose: 12.5 mg Multi-Ingredient Ointment (Zinc Oxide) 1 applic TP DAILY [facility] Last Admin: 11/19/18 10:31 Dose: 1 applic Nystatin (Mycostatin Cream -) 1 applic TP DAILY [facility] Last Admin: 11/19/18 10:31 Dose: 1 applic Ondansetron HCl (Zofran Injection) 4 mg IVPUSH Q8H PRN PRN Reason: NAUSEA AND/OR VOMITING Oxycodone HCl (Oxycontin -) 10 mg PO BID [facility] Last Admin: 11/19/18 22:06 Dose: 10 mg Pantoprazole Sodium (Protonix -) 20 mg PO DAILY [facility] Last Admin: 11/19/18 10:30 Dose: 20 mg - Objective Vital Signs: Vital Signs Temperature 98 F 11/19/18 20:32 Pulse Rate 85 11/19/18 17:25 Respiratory Rate 18 11/19/18 20:32 Blood Pressure 126/64 11/19/18 20:32 O2 Sat by Pulse Oximetry (%) 93 L 11/18/18 21:00 Constitutional: Yes: No Distress, Calm Eyes: Yes: Conjunctiva Clear Respiratory: Yes: CTA Bilaterally Gastrointestinal: Yes: Normal Bowel Sounds, Soft. No: Distention, Tenderness Edema: No Labs: CBC, BMP 11/19/18 07:15 11/19/18 07:15 INR, PTT INR 1.03 (0.83-1.09) 11/18/18 07:00 Fibrinogen > 500.0 mg/dL (238-498) H 11/18/18 07:00 Assessment/Plan 72M with colon cancer s/p right hemicolectomy with unresectable rt. lobe of liver metastasis s/p ablation and c1 FOLFIRI 09/06/18 with recurrent MRSA bacteremia with complicated hospital course with ANA (?MARIE). Nephrology following. Thrombocytopenia stable. Cont to monitor counts.
[2018-11-20] MEDS: INSULIN SLIDING SCALE (NOVOLOG) 1 VIAL SQ SCH ×4 (06:23→21:42)
[2018-11-20] MEDS: METOCLOPRAMIDE HCL 10 MG TABLET (FP) PO SCH ×3 (06:39→17:29)
[2018-11-20] MEDS: guaiFENesin 200 MG/10 ML 10 ML UNIT-DOSE CUPS PO PRN (06:39)
--- NOTE | 2018-11-20 08:49 | PN ---
Progress Note (short form) - Note Progress Note: RENAL Pt is awake and alert no problems urinating Last Vital Signs Temp Pulse Resp BP Pulse Ox 98.1 F 92 H 20 104/78 93 L 11/20/18 06:00 11/20/18 06:00 11/20/18 06:00 11/20/18 06:00 11/18/18 21:00 lungs clear cvs s1s2 rr abd soft, no suprapubic fullness ext no edema neuro a+ox3 CBC, BMP 11/19/18 07:15 11/19/18 07:15 Current Medications Generic Name Dose Route Start Last Admin Trade Name Freq PRN Reason Stop Dose Admin Acetaminophen 325 mg 10/22/18 06:02 11/16/18 14:00 Tylenol - PO 325 mg QID PRN Administration PAIN Allopurinol 300 mg 10/22/18 10:00 11/19/18 10:29 Zyloprim - PO 300 mg DAILY JAMIE Administration Benzocaine/Menthol 1 each 11/10/18 11:36 11/16/18 17:40 Cepacol Lozenge - MM 1 each PRN PRN Administration SORE THROAT Cyanocobalamin 2,500 mcg 10/22/18 10:00 11/19/18 10:28 Vitamin B12 - PO 2,500 mcg DAILY JAMEI Administration Dronabinol 2.5 mg 10/29/18 10:00 11/19/18 10:29 Marinol - PO 2.5 mg DAILY JAMIE Administration Gabapentin 400 mg 10/22/18 10:00 11/19/18 22:05 Neurontin - PO 400 mg BID JAMIE Administration Guaifenesin 10 ml 11/10/18 11:36 11/20/18 06:39 Robitussin - PO 10 ml Q4H PRN Administration COUGH Potassium Chloride/Dextrose/Sod Cl 20 meq in 1,000 mls @ 100 mls/hr 11/16/18 11:30 11/19/18 12:41 D5-1/2ns+20 Meq Kcl - IV 100 mls/hr ASDIR JAMIE Administration Insulin Aspart 1 vial 10/22/18 11:00 11/20/18 06:23 Novolog Vial Sliding Scale - SQ Not Given ACHS JAMIE Protocol Metoclopramide HCl 10 mg 11/02/18 16:30 11/20/18 06:39 Reglan - PO 10 mg TIDAC JAMIE Administration Metoprolol Tartrate 12.5 mg 10/22/18 10:00 11/19/18 22:06 Lopressor - PO 12.5 mg BID JAMIE Administration Multi-Ingredient Ointment 1 applic 10/22/18 10:00 11/19/18 10:31 Zinc Oxide TP 1 applic DAILY JAMIE Administration Nystatin 1 applic 10/22/18 10:00 11/19/18 10:31 Mycostatin Cream - TP 1 applic DAILY JAMIE Administration Ondansetron HCl 4 mg 10/22/18 06:01 Zofran Injection IVPUSH Q8H PRN NAUSEA AND/OR VOMITING Oxycodone HCl 10 mg 11/14/18 22:00 11/19/18 22:06 Oxycontin - PO 10 mg BID JAMIE Administration Pantoprazole Sodium 20 mg 10/22/18 10:00 11/19/18 10:30 Protonix - PO 20 mg DAILY JAMIE Administration Impression 1. ANA 2. multiple myeloma 3. colon cancer 4. anemia 5. abd pain 6. a-fib 7. sepsis 8. neuropathy s/p iv ig 9 liver mass Plan - cont to monitor renal function - ana likely multifactorial, can have MARIE and vanco toxicity - check renal ultrasound- was normal -avoid nephrotoxins -repeat BMP today, would not make any changes if stable -cea , alpha fetoprotein MV
[2018-11-20] MEDS: PANTOPRAZOLE 20 MG TABLET (FP) PO SCH (09:53)
[2018-11-20] MEDS: METOPROLOL TARTRATE 25 MG TABLET (FP) PO SCH ×2 (09:53→21:38)
[2018-11-20] MEDS: ALLOPURINOL 300 MG TABLET (FP) PO SCH (09:53)
[2018-11-20] MEDS: GABAPENTIN 400 MG CAPSULE (FP) PO SCH ×2 (09:53→21:36)
[2018-11-20] MEDS: CYANOCOBALAMIN 1,000 MCG TABLET (FP) PO SCH (09:53)
[2018-11-20] MEDS: oxyCODONE HCL 10 MG SUSTAINED ACTING TABLET PO SCH ×2 (09:54→21:36)
[2018-11-20] MEDS: DRONABINOL 2.5 MG CAPSULE PO SCH (09:54)
[2018-11-20] MEDS: ZINC OXIDE 20% TOPICAL OINTMENT 30 GM TUBE TP SCH (09:57)
[2018-11-20] MEDS: NYSTATIN 100,000 UNIT/GM TOPICAL CREAM 15 GM TUBE TP SCH (09:57)
[2018-11-20] MEDS: D5-1/2NS+20 MEQ KCL - 20 MEQ/1,000 ML INFUS.BAG IV SCH (11:47)
--- NOTE | 2018-11-20 14:21 | PN ---
Progress Note (short form) - Note Progress Note: pt seen/ examined comfortable no new issues Vital Signs Temp 98.8 F 11/20/18 10:00 Pulse 101 H 11/20/18 10:00 Resp 18 11/20/18 10:00 BP 138/77 11/20/18 10:00 Pulse Ox 93 L 11/18/18 21:00 Intake & Output 11/19/18 11/20/18 11/20/18 23:59 11:59 23:59 Intake Total 1820 800 300 Output Total 700 Balance 1120 800 300 Weight 186 lb 8 oz Intake: IV 1320 700 D5-1/2NS+20 MEQ KCL - 20 1320 700 meq In 1,000 ml @ 100 mls /hr IV ASDIR [facility] Rx#: [id number] Oral 500 100 300 Output: Urine 700 Void 700 Other: Voiding Method Urinal Urinal Urinal # Unmeasured Voids Void 1 Bowel Movement No No Yes Active Medications Acetaminophen (Tylenol -) 325 mg PO QID PRN PRN Reason: PAIN Last Admin: 11/16/18 14:00 Dose: 325 mg Allopurinol (Zyloprim -) 300 mg PO DAILY [facility] Last Admin: 11/20/18 09:53 Dose: 300 mg Benzocaine/Menthol (Cepacol Lozenge -) 1 each MM PRN PRN PRN Reason: SORE THROAT Last Admin: 11/16/18 17:40 Dose: 1 each Cyanocobalamin (Vitamin B12 -) 2,500 mcg PO DAILY [facility] Last Admin: 11/20/18 09:53 Dose: 2,500 mcg Dronabinol (Marinol -) 2.5 mg PO DAILY [facility] Last Admin: 11/20/18 09:54 Dose: 2.5 mg Gabapentin (Neurontin -) 400 mg PO BID [facility] Last Admin: 11/20/18 09:53 Dose: 400 mg Guaifenesin (Robitussin -) 10 ml PO Q4H PRN PRN Reason: COUGH Last Admin: 11/20/18 06:39 Dose: 10 ml Potassium Chloride/Dextrose/Sod Cl (D5-1/2ns+20 Meq Kcl -) 20 meq in 1,000 mls @ 100 mls/hr IV ASDIR [facility] Last Admin: 11/20/18 11:47 Dose: Not Given Insulin Aspart (Novolog Vial Sliding Scale -) 1 vial SQ ACHS [facility]; Protocol Last Admin: 11/20/18 11:43 Dose: Not Given Metoclopramide HCl (Reglan -) 10 mg PO TIDAC [facility] Last Admin: 11/20/18 11:46 Dose: 10 mg Metoprolol Tartrate (Lopressor -) 12.5 mg PO BID [facility] Last Admin: 11/20/18 09:53 Dose: 12.5 mg Multi-Ingredient Ointment (Zinc Oxide) 1 applic TP DAILY [facility] Last Admin: 11/20/18 09:57 Dose: 1 applic Nystatin (Mycostatin Cream -) 1 applic TP DAILY [facility] Last Admin: 11/20/18 09:57 Dose: 1 applic Ondansetron HCl (Zofran Injection) 4 mg IVPUSH Q8H PRN PRN Reason: NAUSEA AND/OR VOMITING Oxycodone HCl (Oxycontin -) 10 mg PO BID [facility] Last Admin: 11/20/18 09:54 Dose: 10 mg Pantoprazole Sodium (Protonix -) 20 mg PO DAILY [facility] Last Admin: 11/20/18 09:53 Dose: 20 mg CBC, BMP 11/19/18 07:15 11/19/18 07:15 Physical Exam. Awake/ comfortable [id number] Lungs - diminished at bases. Abd- soft, Non tender. bs + no edema alert and awake PLAN Fever---resolved Vanco toxicity-resolved redosed arf--monitor-- Continue present care avoid nsaids drink fluids will follow monitor labs Problem List - Problems (1) Sepsis Code(s): A41.9 - SEPSIS, UNSPECIFIED ORGANISM (2) Atrial fibrillation Code(s): I48.91 - UNSPECIFIED ATRIAL FIBRILLATION Qualifiers: Atrial fibrillation type: unspecified Qualified Code(s): I48.91 - Unspecified atrial fibrillation (3) Colon cancer metastasized to liver Code(s): C18.9 - MALIGNANT NEOPLASM OF COLON, UNSPECIFIED; C78.7 - SECONDARY MALIG NEOPLASM OF LIVER AND INTRAHEPATIC BILE DUCT (4) Failure to thrive Code(s): [id number] - Qualifiers: Failure to thrive age range: in adult Qualified Code(s): R62.7 - Adult failure to thrive
--- NOTE | 2018-11-20 19:11 | PN ---
Progress Note, Physician History of Present Illness: No new events. No complaints - Current Medication List Current Medications: Active Medications Acetaminophen (Tylenol -) 325 mg PO QID PRN PRN Reason: PAIN Last Admin: 11/16/18 14:00 Dose: 325 mg Allopurinol (Zyloprim -) 300 mg PO DAILY [facility] Last Admin: 11/20/18 09:53 Dose: 300 mg Benzocaine/Menthol (Cepacol Lozenge -) 1 each MM PRN PRN PRN Reason: SORE THROAT Last Admin: 11/16/18 17:40 Dose: 1 each Cyanocobalamin (Vitamin B12 -) 2,500 mcg PO DAILY [facility] Last Admin: 11/20/18 09:53 Dose: 2,500 mcg Dronabinol (Marinol -) 2.5 mg PO DAILY [facility] Last Admin: 11/20/18 09:54 Dose: 2.5 mg Gabapentin (Neurontin -) 400 mg PO BID [facility] Last Admin: 11/20/18 09:53 Dose: 400 mg Guaifenesin (Robitussin -) 10 ml PO Q4H PRN PRN Reason: COUGH Last Admin: 11/20/18 06:39 Dose: 10 ml Insulin Aspart (Novolog Vial Sliding Scale -) 1 vial SQ [facility]; Protocol Last Admin: 11/20/18 17:29 Dose: Not Given Metoclopramide HCl (Reglan -) 10 mg PO TIDAC [facility] Last Admin: 11/20/18 17:29 Dose: 10 mg Metoprolol Tartrate (Lopressor -) 12.5 mg PO BID [facility] Last Admin: 11/20/18 09:53 Dose: 12.5 mg Multi-Ingredient Ointment (Zinc Oxide) 1 applic TP DAILY [facility] Last Admin: 11/20/18 09:57 Dose: 1 applic Nystatin (Mycostatin Cream -) 1 applic TP DAILY [facility] Last Admin: 11/20/18 09:57 Dose: 1 applic Ondansetron HCl (Zofran Injection) 4 mg IVPUSH Q8H PRN PRN Reason: NAUSEA AND/OR VOMITING Oxycodone HCl (Oxycontin -) 10 mg PO BID [facility] Last Admin: 11/20/18 09:54 Dose: 10 mg Pantoprazole Sodium (Protonix -) 20 mg PO DAILY [facility] Last Admin: 08/04/19 09:53 Dose: 20 mg - Objective Vital Signs: Vital Signs Temperature 98.8 F 11/20/18 14:00 Pulse Rate 91 H 11/20/18 14:00 Respiratory Rate 18 11/20/18 14:00 Blood Pressure 105/63 11/20/18 14:00 O2 Sat by Pulse Oximetry (%) 93 L 11/18/18 21:00 Constitutional: Yes: No Distress, Calm Eyes: Yes: Conjunctiva Clear Respiratory: Yes: Regular, CTA Bilaterally Gastrointestinal: Yes: Normal Bowel Sounds, Soft Edema: No Labs: CBC, BMP 11/19/18 07:15 11/19/18 07:15 INR, PTT INR 1.03 (0.83-1.09) 11/18/18 07:00 Fibrinogen > 500.0 mg/dL (238-498) H 11/18/18 07:00 Assessment/Plan 72M with colon cancer s/p right hemicolectomy with unresectable rt. lobe of liver metastasis s/p ablation and c1 FOLFIRI 09/06/18 with recurrent MRSA bacteremia with complicated hospital course with ANA (?MARIE). Nephrology following. Thrombocytopenia stable. Cont to monitor counts.
[2018-11-21] MEDS: INSULIN SLIDING SCALE (NOVOLOG) 1 VIAL SQ SCH ×4 (06:17→21:42)
[2018-11-21] MEDS ORDERED: PT OWN MED DRAWER 7, Y5N ONE (06:21)
[2018-11-21] MEDS: METOCLOPRAMIDE HCL 10 MG TABLET (FP) PO SCH ×3 (06:24→17:48)
[2018-11-21 07:19] LABS: ALBUMIN 2.6 g/dl (3.4-5.0); BILIRUBIN,TOTAL 0.7 mg/dL (0.2-1); BLOOD UREA NITROGEN 17.6 mg/dL (7-18); CALCIUM 9.5 mg/dL (8.5-10.1); CREATININE 2.1 mg/dL (0.55-1.3); POTASSIUM 3.9 mmol/L (3.5-5.1); TOT PROT 5.9 g/dl (6.4-8.2)
[2018-11-21 08:14] LABS: BASO % 0.8 % (0-2.0); EOS % 3.8 % (0-4.5); HEMATOCRIT 27.1 % (35.4-49); HEMOGLOBIN 8.9 GM/dL (11.7-16.9); MCH 31.4 pg (25.7-33.7); MEAN CELL VOLUME 95.4 fl (80-96); MEAN PLT VOLUME 8.8 fl (7.5-11.1); NEUT % 67.4 % (42.8-82.8); PLATELET COUNT 75 K/MM3 (134-434); RBC 2.84 M/mm3 (4.00-5.60); RDW 21.2 % (11.9-15.9); WHITE BLOOD COUNT 4.4 K/mm3 (4.0-10.0)
--- NOTE | 2018-11-21 09:25 | PN ---
Progress Note (short form) - Note Progress Note: pt seen/examined awake/ comfortable all f/u noted Vital Signs Temp 99.4 F 11/21/18 06:48 Pulse 78 11/21/18 06:48 Resp 20 11/21/18 06:48 BP 104/66 11/21/18 06:48 Pulse Ox 93 L 11/18/18 21:00 Intake & Output 11/20/18 11/20/18 11/21/18 11:59 23:59 11:59 Intake Total 800 1000 200 Balance 800 1000 200 Weight 186 lb 8 oz 186 lb 3 oz Intake: IV 700 400 D5-1/2NS+20 MEQ KCL - 20 700 400 meq In 1,000 ml @ 100 mls /hr IV ASDIR [facility] Rx#: [id number] Oral 100 600 200 Other: Voiding Method Urinal Urinal # Unmeasured Voids Void 1 2 Bowel Movement No Yes No Weight Measurement Method Built in [facility] Active Medications Acetaminophen (Tylenol -) 325 mg PO QID PRN PRN Reason: PAIN Last Admin: 11/16/18 14:00 Dose: 325 mg Allopurinol (Zyloprim -) 300 mg PO DAILY [facility] Last Admin: 11/20/18 09:53 Dose: 300 mg Benzocaine/Menthol (Cepacol Lozenge -) 1 each MM PRN PRN PRN Reason: SORE THROAT Last Admin: 11/16/18 17:40 Dose: 1 each Cyanocobalamin (Vitamin B12 -) 2,500 mcg PO DAILY [facility] Last Admin: 11/20/18 09:53 Dose: 2,500 mcg Dronabinol (Marinol -) 2.5 mg PO DAILY [facility] Last Admin: 11/20/18 09:54 Dose: 2.5 mg Gabapentin (Neurontin -) 400 mg PO BID [facility] Last Admin: 11/20/18 21:36 Dose: 400 mg Guaifenesin (Robitussin -) 10 ml PO Q4H PRN PRN Reason: COUGH Last Admin: 11/20/18 06:39 Dose: 10 ml Insulin Aspart (Novolog Vial Sliding Scale -) 1 vial SQ [facility]; Protocol Last Admin: 11/21/18 06:17 Dose: Not Given Metoclopramide HCl (Reglan -) 10 mg PO TIDAC [facility] Last Admin: 11/21/18 06:24 Dose: 10 mg Metoprolol Tartrate (Lopressor -) 12.5 mg PO BID [facility] Last Admin: 11/20/18 21:38 Dose: 12.5 mg Multi-Ingredient Ointment (Zinc Oxide) 1 applic TP DAILY [facility] Last Admin: 11/20/18 09:57 Dose: 1 applic Nystatin (Mycostatin Cream -) 1 applic TP DAILY [facility] Last Admin: 11/20/18 09:57 Dose: 1 applic Ondansetron HCl (Zofran Injection) 4 mg IVPUSH Q8H PRN PRN Reason: NAUSEA AND/OR VOMITING Oxycodone HCl (Oxycontin -) 10 mg PO BID [facility] Last Admin: 11/20/18 21:36 Dose: 10 mg Pantoprazole Sodium (Protonix -) 20 mg PO DAILY [facility] Last Admin: 11/20/18 09:53 Dose: 20 mg CBC, BMP 11/21/18 05:34 11/21/18 05:34 Physical Exam. Awake/ comfortable [id number] Lungs - diminished at bases. Abd- soft, Non tender. bs + no edema alert and awake PLAN Fever---resolved Vanco toxicity-resolved arf--monitor--new baseline ? 2.1 Continue present care avoid nsaids drink fluids will follow monitor labs i/d to follow cancel picc line insertion for now Problem List - Problems (1) Sepsis Code(s): A41.9 - SEPSIS, UNSPECIFIED ORGANISM (2) Atrial fibrillation Code(s): I48.91 - UNSPECIFIED ATRIAL FIBRILLATION Qualifiers: Atrial fibrillation type: unspecified Qualified Code(s): I48.91 - Unspecified atrial fibrillation (3) Colon cancer metastasized to liver Code(s): C18.9 - MALIGNANT NEOPLASM OF COLON, UNSPECIFIED; C78.7 - SECONDARY MALIG NEOPLASM OF LIVER AND INTRAHEPATIC BILE DUCT (4) Failure to thrive Code(s): [id number] - Qualifiers: Failure to thrive age range: in adult Qualified Code(s): R62.7 - Adult failure to thrive
[2018-11-21] MEDS: CYANOCOBALAMIN 1,000 MCG TABLET (FP) PO SCH (09:30)
[2018-11-21] MEDS: GABAPENTIN 400 MG CAPSULE (FP) PO SCH ×2 (09:31→21:43)
[2018-11-21] MEDS: ALLOPURINOL 300 MG TABLET (FP) PO SCH (09:31)
[2018-11-21] MEDS: PANTOPRAZOLE 20 MG TABLET (FP) PO SCH (09:31)
[2018-11-21] MEDS: METOPROLOL TARTRATE 25 MG TABLET (FP) PO SCH ×3 (09:31→21:48)
[2018-11-21] MEDS: NYSTATIN 100,000 UNIT/GM TOPICAL CREAM 15 GM TUBE TP SCH (09:31)
[2018-11-21] MEDS: oxyCODONE HCL 10 MG SUSTAINED ACTING TABLET PO SCH (09:32)
[2018-11-21] MEDS: ZINC OXIDE 20% TOPICAL OINTMENT 30 GM TUBE TP SCH (09:32)
[2018-11-21] MEDS: DRONABINOL 2.5 MG CAPSULE PO SCH (09:35)
--- NOTE | 2018-11-21 10:25 | PN ---
Progress Note (short form) - Note Progress Note: RENAL Pt is awake and alert no problems urinating denies complaints Last Vital Signs Temp Pulse Resp BP Pulse Ox 99.4 F 78 20 104/66 93 L 11/21/18 06:48 11/21/18 06:48 11/21/18 06:48 11/21/18 06:48 11/18/18 21:00 lungs clear cvs s1s2 rr abd soft, no suprapubic fullness ext no edema neuro a+ox3 Current Medications Generic Name Dose Route Start Last Admin Trade Name Freq PRN Reason Stop Dose Admin Acetaminophen 325 mg 10/22/18 06:02 11/16/18 14:00 Tylenol - PO 325 mg QID PRN Administration PAIN Allopurinol 300 mg 10/22/18 10:00 11/21/18 09:31 Zyloprim - PO 300 mg DAILY JAMIE Administration Benzocaine/Menthol 1 each 11/10/18 11:36 11/16/18 17:40 Cepacol Lozenge - MM 1 each PRN PRN Administration SORE THROAT Cyanocobalamin 2,500 mcg 10/22/18 10:00 11/21/18 09:30 Vitamin B12 - PO 2,500 mcg DAILY JAMIE Administration Dronabinol 2.5 mg 10/29/18 10:00 11/21/18 09:35 Marinol - PO 2.5 mg DAILY JAMIE Administration Gabapentin 400 mg 10/22/18 10:00 11/21/18 09:31 Neurontin - PO 400 mg BID JAMIE Administration Guaifenesin 10 ml 11/10/18 11:36 11/20/18 06:39 Robitussin - PO 10 ml Q4H PRN Administration COUGH Insulin Aspart 1 vial 10/22/18 11:00 11/21/18 06:17 Novolog Vial Sliding Scale - SQ Not Given ACHS [facility] Protocol Metoclopramide HCl 10 mg 11/02/18 16:30 11/21/18 06:24 Reglan - PO 10 mg TIDAC JAMIE Administration Metoprolol Tartrate 12.5 mg 10/22/18 10:00 11/21/18 09:31 Lopressor - PO 12.5 mg BID JAMIE Administration Multi-Ingredient Ointment 1 applic 10/22/18 10:00 11/21/18 09:32 Zinc Oxide TP 1 applic DAILY [facility]IE Administration Nystatin 1 applic 10/22/18 10:00 11/21/18 09:31 Mycostatin Cream - TP 1 applic DAILY [facility] Administration Ondansetron HCl 4 mg 10/22/18 06:01 Zofran Injection IVPUSH Q8H PRN NAUSEA AND/OR VOMITING Oxycodone HCl 10 mg 11/14/18 22:00 11/21/18 09:32 Oxycontin - PO 10 mg BID JAMIE Administration Pantoprazole Sodium 20 mg 10/22/18 10:00 11/21/18 09:31 Protonix - PO 20 mg DAILY JAMIE Administration CBC, BMP 11/21/18 05:34 11/21/18 05:34 Impression 1. ANA 2. multiple myeloma 3. colon cancer 4. anemia 5. abd pain 6. a-fib 7. sepsis 8. neuropathy s/p iv ig 9 liver mass post treatment of colon ca met Plan would make no changes with vanco toxicity may take a long time to get better If no cancer, would consider giving JEANA MV
--- NOTE | 2018-11-21 15:51 | PN ---
Progress Note, Physician History of Present Illness: AWAKE, ALERT IN BED EPISODE OF N/V TODAY NO C/O ABDOMINAL PAIN NO DIARRHEA NO F/C - Current Medication List Current Medications: Active Medications Acetaminophen (Tylenol -) 325 mg PO QID PRN PRN Reason: PAIN Last Admin: 11/16/18 14:00 Dose: 325 mg Allopurinol (Zyloprim -) 300 mg PO DAILY [facility] Last Admin: 11/21/18 09:31 Dose: 300 mg Benzocaine/Menthol (Cepacol Lozenge -) 1 each MM PRN PRN PRN Reason: SORE THROAT Last Admin: 11/16/18 17:40 Dose: 1 each Cyanocobalamin (Vitamin B12 -) 2,500 mcg PO DAILY [facility] Last Admin: 11/21/18 09:30 Dose: 2,500 mcg Dronabinol (Marinol -) 2.5 mg PO DAILY [facility] Last Admin: 11/21/18 09:35 Dose: 2.5 mg Gabapentin (Neurontin -) 400 mg PO BID [facility] Last Admin: 11/21/18 09:31 Dose: 400 mg Guaifenesin (Robitussin -) 10 ml PO Q4H PRN PRN Reason: COUGH Last Admin: 11/20/18 06:39 Dose: 10 ml Insulin Aspart (Novolog Vial Sliding Scale -) 1 vial SQ [facility]; Protocol Last Admin: 11/21/18 12:24 Dose: 2 units Metoclopramide HCl (Reglan -) 10 mg PO TIDAC [facility] Last Admin: 11/21/18 12:24 Dose: 10 mg Metoprolol Tartrate (Lopressor -) 12.5 mg PO BID [facility] Last Admin: 11/21/18 09:31 Dose: 12.5 mg Multi-Ingredient Ointment (Zinc Oxide) 1 applic TP DAILY [facility] Last Admin: 11/21/18 09:32 Dose: 1 applic Nystatin (Mycostatin Cream -) 1 applic TP DAILY [facility] Last Admin: 11/21/18 09:31 Dose: 1 applic Ondansetron HCl (Zofran Injection) 4 mg IVPUSH Q8H PRN PRN Reason: NAUSEA AND/OR VOMITING Oxycodone HCl (Oxycontin -) 10 mg PO BID [facility] Last Admin: 11/21/18 09:32 Dose: 10 mg Pantoprazole Sodium (Protonix -) 20 mg PO DAILY [facility] Last Admin: 11/21/18 09:31 Dose: 20 mg - Objective Vital Signs: Vital Signs Temperature 98.4 F 11/21/18 10:00 Pulse Rate 98 H 11/21/18 10:00 Respiratory Rate 18 11/21/18 10:00 Blood Pressure 107/73 11/21/18 10:00 O2 Sat by Pulse Oximetry (%) 93 L 11/18/18 21:00 Constitutional: Yes: No Distress Cardiovascular: Yes: Regular Rate and Rhythm, S1, S2 Respiratory: Yes: Diminished Gastrointestinal: Yes: Normal Bowel Sounds, Soft. No: Tenderness Edema: No Labs: CBC, BMP 11/21/18 05:34 11/21/18 05:34 INR, PTT INR 1.03 (0.83-1.09) 11/18/18 07:00 Fibrinogen > 500.0 mg/dL (238-498) H 11/18/18 07:00 Assessment/Plan RECURRENT MRSA BACTEREMIA ? INFECTED HEPATIC MASS ANA IMPROVED METASTATIC COLON CA REPEAT BC NO GROWTH COMPLETED 28D ANTISTAPHYLOCOCCAL THERAPY WILL START SKILLED NURSING SUPPRESSIVE PO ANTIBIOTICS IN LIGHT OF RECURRENT MRSA BACTEREMIA
[2018-11-22] MEDS: INSULIN SLIDING SCALE (NOVOLOG) 1 VIAL SQ SCH ×4 (06:21→22:42)
[2018-11-22] MEDS: METOCLOPRAMIDE HCL 10 MG TABLET (FP) PO SCH ×3 (06:22→17:57)
[2018-11-22] MEDS: CYANOCOBALAMIN 1,000 MCG TABLET (FP) PO SCH (11:54)
[2018-11-22] MEDS: GABAPENTIN 400 MG CAPSULE (FP) PO SCH ×2 (11:55→22:42)
[2018-11-22] MEDS: PANTOPRAZOLE 20 MG TABLET (FP) PO SCH (11:55)
[2018-11-22] MEDS: DOXYCYCLINE HYCLATE 100 MG CAPSULE PO SCH ×2 (11:55→17:57)
[2018-11-22] MEDS: METOPROLOL TARTRATE 25 MG TABLET (FP) PO SCH ×2 (11:56→22:42)
[2018-11-22] MEDS: ALLOPURINOL 300 MG TABLET (FP) PO SCH (11:56)
[2018-11-22] MEDS: ZINC OXIDE 20% TOPICAL OINTMENT 30 GM TUBE TP SCH (11:57)
[2018-11-22] MEDS: NYSTATIN 100,000 UNIT/GM TOPICAL CREAM 15 GM TUBE TP SCH (11:57)
[2018-11-22] MEDS: DRONABINOL 2.5 MG CAPSULE PO SCH (15:28)
--- NOTE | 2018-11-22 16:29 | PN ---
Progress Note, Physician History of Present Illness: Pt seen and examined at bedside. He is awake and alert. He denies shortness of breath. - Current Medication List Current Medications: Active Medications Acetaminophen (Tylenol -) 325 mg PO QID PRN PRN Reason: PAIN Last Admin: 11/16/18 14:00 Dose: 325 mg Allopurinol (Zyloprim -) 300 mg PO DAILY [facility] Last Admin: 11/22/18 11:56 Dose: 300 mg Benzocaine/Menthol (Cepacol Lozenge -) 1 each MM PRN PRN PRN Reason: SORE THROAT Last Admin: 11/16/18 17:40 Dose: 1 each Cyanocobalamin (Vitamin B12 -) 2,500 mcg PO DAILY [facility] Last Admin: 11/22/18 11:54 Dose: 2,500 mcg Doxycycline Hyclate (Vibramycin -) 100 mg PO BID@1000,1800 [facility] Last Admin: 11/22/18 11:55 Dose: 100 mg Dronabinol (Marinol -) 2.5 mg PO DAILY [facility] Last Admin: 11/22/18 15:28 Dose: 2.5 mg Gabapentin (Neurontin -) 400 mg PO BID [facility] Last Admin: 11/22/18 11:55 Dose: 400 mg Guaifenesin (Robitussin -) 10 ml PO Q4H PRN PRN Reason: COUGH Last Admin: 11/20/18 06:39 Dose: 10 ml Insulin Aspart (Novolog Vial Sliding Scale -) 1 vial SQ [facility]; Protocol Last Admin: 11/22/18 13:05 Dose: 2 units Metoclopramide HCl (Reglan -) 10 mg PO TIDAC [facility] Last Admin: 11/22/18 11:56 Dose: 10 mg Metoprolol Tartrate (Lopressor -) 12.5 mg PO BID [facility] Last Admin: 11/22/18 11:56 Dose: 12.5 mg Multi-Ingredient Ointment (Zinc Oxide) 1 applic TP DAILY [facility] Last Admin: 11/22/18 11:57 Dose: 1 applic Nystatin (Mycostatin Cream -) 1 applic TP DAILY [facility] Last Admin: 11/22/18 11:57 Dose: 1 applic Ondansetron HCl (Zofran Injection) 4 mg IVPUSH Q8H PRN PRN Reason: NAUSEA AND/OR VOMITING Pantoprazole Sodium (Protonix -) 20 mg PO DAILY [facility] Last Admin: 11/22/18 11:55 Dose: 20 mg - Objective Vital Signs: Vital Signs Temperature 98.3 F 11/21/18 22:00 Pulse Rate 96 H 11/22/18 10:00 Respiratory Rate 120 H 11/22/18 10:00 Blood Pressure 120/80 11/22/18 10:00 O2 Sat by Pulse Oximetry (%) 93 L 11/18/18 21:00 Constitutional: Yes: Calm Eyes: Yes: Conjunctiva Clear HENT: Yes: Atraumatic Cardiovascular: Yes: S1, S2 Respiratory: Yes: CTA Bilaterally Gastrointestinal: Yes: Normal Bowel Sounds, Soft Genitourinary: Yes: WNL Musculoskeletal: Yes: WNL Edema: No Neurological: Yes: Oriented Psychiatric: Yes: Oriented Labs: CBC, BMP 11/21/18 05:34 11/21/18 05:34 INR, PTT INR 1.03 (0.83-1.09) 11/18/18 07:00 Fibrinogen > 500.0 mg/dL (238-498) H 11/18/18 07:00 Problem List - Problems (1) ANA (acute kidney injury) Code(s): N17.9 - ACUTE KIDNEY FAILURE, UNSPECIFIED (2) Atrial fibrillation Code(s): I48.91 - UNSPECIFIED ATRIAL FIBRILLATION Qualifiers: Atrial fibrillation type: unspecified Qualified Code(s): I48.91 - Unspecified atrial fibrillation (3) Colon cancer metastasized to liver Code(s): C18.9 - MALIGNANT NEOPLASM OF COLON, UNSPECIFIED; C78.7 - SECONDARY MALIG NEOPLASM OF LIVER AND INTRAHEPATIC BILE DUCT Assessment/Plan Current Medications Generic Name Dose Route Start Last Admin Trade Name Freq PRN Reason Stop Dose Admin Acetaminophen 325 mg 10/22/18 06:02 11/16/18 14:00 Tylenol - PO 325 mg QID PRN Administration PAIN Allopurinol 300 mg 10/22/18 10:00 11/22/18 11:56 Zyloprim - PO 300 mg DAILY JAMIE Administration Benzocaine/Menthol 1 each 11/10/18 11:36 11/16/18 17:40 Cepacol Lozenge - MM 1 each PRN PRN Administration SORE THROAT Cyanocobalamin 2,500 mcg 10/22/18 10:00 11/22/18 11:54 Vitamin B12 - PO 2,500 mcg DAILY J[facility]IE Administration Doxycycline Hyclate 100 mg 11/22/18 10:00 11/22/18 11:55 Vibramycin - PO 100 mg BID@1000,1800 JAMIE Administration Dronabinol 2.5 mg 10/29/18 10:00 11/22/18 15:28 Marinol - PO 2.5 mg DAILY J[facility]IE Administration Gabapentin 400 mg 10/22/18 10:00 11/22/18 11:55 Neurontin - PO 400 mg BID JAMIE Administration Guaifenesin 10 ml 11/10/18 11:36 11/20/18 06:39 Robitussin - PO 10 ml Q4H PRN Administration COUGH Insulin Aspart 1 vial 10/22/18 11:00 11/22/18 13:05 Novolog Vial Sliding Scale - SQ 2 units ACHS JAMIE Administration Protocol Metoclopramide HCl 10 mg 11/02/18 16:30 11/22/18 11:56 Reglan - PO 10 mg TIDAC JAMIE Administration Metoprolol Tartrate 12.5 mg 10/22/18 10:00 11/22/18 11:56 Lopressor - PO 12.5 mg BID J[facility]IE Administration Multi-Ingredient Ointment 1 applic 10/22/18 10:00 11/22/18 11:57 Zinc Oxide TP 1 applic DAILY [facility] Administration Nystatin 1 applic 10/22/18 10:00 11/22/18 11:57 Mycostatin Cream - TP 1 applic DAILY [facility] Administration Ondansetron HCl 4 mg 10/22/18 06:01 Zofran Injection IVPUSH Q8H PRN NAUSEA AND/OR VOMITING Pantoprazole Sodium 20 mg 10/22/18 10:00 11/22/18 11:55 Protonix - PO 20 mg DAILY JAMIE Administration Laboratory Tests 11/18/18 18:00 Urine Protein Negative Urine Blood Negative Impression 1. ANA 2. multiple myeloma 3. colon cancer 4. anemia 5. abd pain 6. a-fib 7. sepsis Plan - ua neg for blood or protein - cont to monitor renal function - repeat labs in am - would give fluids however he does not have an IV, encourage po hydrationn - ana likely multifactorial - renal ultrasound negative
--- NOTE | 2018-11-22 16:50 | PN ---
Progress Note (short form) - Note Progress Note: pt seen/ examined chart reviewed awake/ comfortable all f/u noted Vital Signs Temp 98.3 F 11/21/18 22:00 Pulse 96 H 11/22/18 10:00 Resp 120 H 11/22/18 10:00 BP 120/80 11/22/18 10:00 Pulse Ox 93 L 11/18/18 21:00 Intake & Output 11/21/18 11/22/18 11/22/18 23:59 11:59 23:59 Weight 182 lb 14.4 oz Other: Voiding Method Urinal Urinal # Unmeasured Voids Void 1 2 2 Bowel Movement No No Yes # Bowel Movements 1 Weight Measurement Method Built in [facility] Active Medications Acetaminophen (Tylenol -) 325 mg PO QID PRN PRN Reason: PAIN Last Admin: 11/16/18 14:00 Dose: 325 mg Allopurinol (Zyloprim -) 300 mg PO DAILY [facility] Last Admin: 11/22/18 11:56 Dose: 300 mg Benzocaine/Menthol (Cepacol Lozenge -) 1 each MM PRN PRN PRN Reason: SORE THROAT Last Admin: 11/16/18 17:40 Dose: 1 each Cyanocobalamin (Vitamin B12 -) 2,500 mcg PO DAILY [facility] Last Admin: 11/22/18 11:54 Dose: 2,500 mcg Doxycycline Hyclate (Vibramycin -) 100 mg PO BID@1000,1800 [facility] Last Admin: 11/22/18 11:55 Dose: 100 mg Dronabinol (Marinol -) 2.5 mg PO DAILY [facility] Last Admin: 11/22/18 15:28 Dose: 2.5 mg Gabapentin (Neurontin -) 400 mg PO BID [facility] Last Admin: 11/22/18 11:55 Dose: 400 mg Guaifenesin (Robitussin -) 10 ml PO Q4H PRN PRN Reason: COUGH Last Admin: 11/20/18 06:39 Dose: 10 ml Insulin Aspart (Novolog Vial Sliding Scale -) 1 vial SQ [facility]; Protocol Last Admin: 11/22/18 13:05 Dose: 2 units Metoclopramide HCl (Reglan -) 10 mg PO TIDAC [facility] Last Admin: 11/22/18 11:56 Dose: 10 mg Metoprolol Tartrate (Lopressor -) 12.5 mg PO BID [facility] Last Admin: 11/22/18 11:56 Dose: 12.5 mg Multi-Ingredient Ointment (Zinc Oxide) 1 applic TP DAILY [facility] Last Admin: 11/22/18 11:57 Dose: 1 applic Nystatin (Mycostatin Cream -) 1 applic TP DAILY [facility] Last Admin: 11/22/18 11:57 Dose: 1 applic Ondansetron HCl (Zofran Injection) 4 mg IVPUSH Q8H PRN PRN Reason: NAUSEA AND/OR VOMITING Pantoprazole Sodium (Protonix -) 20 mg PO DAILY [facility] Last Admin: 11/22/18 11:55 Dose: 20 mg CBC, BMP 11/21/18 05:34 11/21/18 05:34 Physical Exam. Awake/ comfortable [id number] Lungs - diminished at bases. Abd- soft, Non tender. bs + no edema alert and awake PLAN Fever---resolved Vanco toxicity-resolved arf--monitor--new baseline ? 2.1 Continue present care avoid nsaids drink fluids will follow monitor labs ID follow-up noted--- long-term by mouth antibiotic started discharge planning anticipate discharge tomorrow Problem List - Problems (1) Sepsis Code(s): A41.9 - SEPSIS, UNSPECIFIED ORGANISM (2) Atrial fibrillation Code(s): I48.91 - UNSPECIFIED ATRIAL FIBRILLATION Qualifiers: Atrial fibrillation type: unspecified Qualified Code(s): I48.91 - Unspecified atrial fibrillation (3) Colon cancer metastasized to liver Code(s): C18.9 - MALIGNANT NEOPLASM OF COLON, UNSPECIFIED; C78.7 - SECONDARY MALIG NEOPLASM OF LIVER AND INTRAHEPATIC BILE DUCT (4) Failure to thrive Code(s): [id number] - Qualifiers: Failure to thrive age range: in adult Qualified Code(s): R62.7 - Adult failure to thrive
[2018-11-22] MEDS ORDERED: INSULIN (NOVOLOG) ASPART 100 UNITS/ML 10ML VIAL ONE (20:47)
[2018-11-23] MEDS: METOCLOPRAMIDE HCL 10 MG TABLET (FP) PO SCH ×3 (06:35→17:53)
[2018-11-23] MEDS: INSULIN SLIDING SCALE (NOVOLOG) 1 VIAL SQ SCH ×4 (06:38→21:37)
[2018-11-23] MEDS ORDERED: INSULIN (NOVOLOG) ASPART 100 UNITS/ML 10ML VIAL ONE (07:08)
--- NOTE | 2018-11-23 09:18 | DS ---
Physical Examination Vital Signs: Vital Signs Temperature 99.2 F 11/23/18 06:00 Pulse Rate 76 11/23/18 06:00 Respiratory Rate 20 11/23/18 06:00 Blood Pressure 106/70 11/23/18 06:00 O2 Sat by Pulse Oximetry (%) 93 L 11/22/18 21:00 Findings/Remarks: Comfortable no new issues Constitutional: Yes: No Distress, Calm Eyes: Yes: Conjunctiva Clear Neck: Yes: Supple Cardiovascular: Yes: Regular Rate and Rhythm. No: Varicosities Respiratory: Yes: CTA Bilaterally Gastrointestinal: Yes: Soft Edema: No Neurological: Yes: Alert Psychiatric: Yes: Alert Labs: CBC, BMP 11/21/18 05:34 Discharge Summary Reason For Visit: ABDOMINAL PAIN Current Active Problems ANA (acute kidney injury) (Acute) Atrial fibrillation (Acute) Colon cancer metastasized to liver (Acute) Failure to thrive (Acute) Family history of malignant neoplasm of colon in first degree relative diagnosed when younger than 60 years of age (Acute) Fatty liver (Acute) Gout (Acute) H/O gastrostomy (Acute) HTN (hypertension) (Acute) Hiatal hernia with gastroesophageal reflux disease and esophagitis (Acute) Paroxysmal atrial fibrillation (Acute) Schatzki's ring of distal esophagus (Acute) Sepsis (Acute) Sepsis (Acute) Sepsis (Acute) Severe malnutrition (Acute) Thrombocytopenia (Acute) Vomiting, persistent, in adult (Acute) Hospital Course: patient with extensive past medical history---admitted for abdominal pain course complicated by fever Treated with antibiotics In summary recurrent MRSA bacteremia Infected hepatic mass? Renal insufficiency metastatic colon cancer Anemia Clinically stable--- For discharge to [facility] On long-term suppressive by mouth antibiotics----due to recurrent MRSA bacteremia Medications reconciled Discharge to [facility] Discussed with case management manager/nursing staff Patient also in agreement overall condition remains guarded Condition: Guarded - Instructions [facility] - Home Medications Comprehensive Discharge Medication List: Ambulatory Orders Gabapentin 400 mg PO BID 10/04/16 Allopurinol 300 mg PO DAILY 10/21/17 Cyanocobalamin (Vitamin B-12) [Vitamin B12] 2,500 mcg PO DAILY 10/21/17 oxyCODONE HCL [Roxicodone -] 10 mg PO Q4H PRN #30 tablet MDD 4 10/11/18 Metoprolol Tartrate 12.5 mg PO BID #60 tablet 10/13/18 Acetaminophen 325 mg PO QID PRN 10/21/18 Nystatin 1 each MC DAILY 10/21/18 Omeprazole 20 mg PO DAILY 10/21/18 Zinc Oxide 20% Topical Oint 454 gm NR DAILY 10/21/18 Dronabinol [Marinol -] 2.5 mg PO DAILY capsule MDD 1 11/11/18 Doxycycline Hyclate [Vibramycin -] 100 mg PO BID@1000,1800 capsule 11/23/18 Guaifenesin [Robitussin -] 10 ml PO Q4H PRN cup 11/23/18 Insulin Sliding Scale [Novolog Vial Sliding Scale -] 1 vial SQ ACHS units 11/23 Metoclopramide HCl [Reglan -] 10 mg PO TIDAC tablet 11/23/18 oxyCODONE SR [Oxycontin] 10 mg PO BID #30 tab.er.12h MDD 2 11/23/18
[2018-11-23 09:37] LABS: BLOOD UREA NITROGEN 20.5 mg/dL (7-18); CALCIUM 9.6 mg/dL (8.5-10.1); CREATININE 2.3 mg/dL (0.55-1.3); POTASSIUM 3.8 mmol/L (3.5-5.1)
[2018-11-23] MEDS: NYSTATIN 100,000 UNIT/GM TOPICAL CREAM 15 GM TUBE TP SCH (11:16)
[2018-11-23] MEDS: ZINC OXIDE 20% TOPICAL OINTMENT 30 GM TUBE TP SCH (11:16)
[2018-11-23] MEDS: PANTOPRAZOLE 20 MG TABLET (FP) PO SCH (11:18)
[2018-11-23] MEDS: GABAPENTIN 400 MG CAPSULE (FP) PO SCH ×2 (11:18→21:31)
[2018-11-23] MEDS: CYANOCOBALAMIN 1,000 MCG TABLET (FP) PO SCH (11:18)
[2018-11-23] MEDS: DOXYCYCLINE HYCLATE 100 MG CAPSULE PO SCH ×2 (11:19→17:53)
[2018-11-23] MEDS: METOPROLOL TARTRATE 25 MG TABLET (FP) PO SCH ×2 (11:20→21:31)
[2018-11-23] MEDS: ALLOPURINOL 300 MG TABLET (FP) PO SCH (11:20)
[2018-11-23] MEDS: DRONABINOL 2.5 MG CAPSULE PO SCH (11:21)
--- NOTE | 2018-11-23 12:33 | PN ---
Progress Note, Physician History of Present Illness: Pt seen and examined at bedside. He is awake and alert. He has poor po intake. - Current Medication List Current Medications: Active Medications Acetaminophen (Tylenol -) 325 mg PO QID PRN PRN Reason: PAIN Last Admin: 11/16/18 14:00 Dose: 325 mg Allopurinol (Zyloprim -) 300 mg PO DAILY [facility] Last Admin: 11/23/18 11:20 Dose: 300 mg Benzocaine/Menthol (Cepacol Lozenge -) 1 each MM PRN PRN PRN Reason: SORE THROAT Last Admin: 11/16/18 17:40 Dose: 1 each Cyanocobalamin (Vitamin B12 -) 2,500 mcg PO DAILY [facility] Last Admin: 11/23/18 11:18 Dose: 2,500 mcg Doxycycline Hyclate (Vibramycin -) 100 mg PO BID@1000,1800 [facility] Last Admin: 11/23/18 11:19 Dose: 100 mg Dronabinol (Marinol -) 2.5 mg PO DAILY [facility] Last Admin: 11/23/18 11:21 Dose: 2.5 mg Gabapentin (Neurontin -) 400 mg PO BID [facility] Last Admin: 11/23/18 11:18 Dose: 400 mg Guaifenesin (Robitussin -) 10 ml PO Q4H PRN PRN Reason: COUGH Last Admin: 11/20/18 06:39 Dose: 10 ml Insulin Aspart (Novolog Vial Sliding Scale -) 1 vial SQ [facility]; Protocol Last Admin: 11/23/18 06:38 Dose: Not Given Metoclopramide HCl (Reglan -) 10 mg PO TIDAC [facility] Last Admin: 11/23/18 11:18 Dose: 10 mg Metoprolol Tartrate (Lopressor -) 12.5 mg PO BID [facility] Last Admin: 11/23/18 11:20 Dose: 12.5 mg Multi-Ingredient Ointment (Zinc Oxide) 1 applic TP DAILY [facility] Last Admin: 11/23/18 11:16 Dose: 1 applic Nystatin (Mycostatin Cream -) 1 applic TP DAILY [facility] Last Admin: 11/23/18 11:16 Dose: 1 applic Ondansetron HCl (Zofran Injection) 4 mg IVPUSH Q8H PRN PRN Reason: NAUSEA AND/OR VOMITING Pantoprazole Sodium (Protonix -) 20 mg PO DAILY [facility] Last Admin: 11/23/18 11:18 Dose: 20 mg - Objective Vital Signs: Vital Signs Temperature 98.6 F 11/23/18 11:00 Pulse Rate 90 11/23/18 11:00 Respiratory Rate 18 11/23/18 11:00 Blood Pressure 104/63 11/23/18 11:00 O2 Sat by Pulse Oximetry (%) 93 L 11/22/18 21:00 Constitutional: Yes: Calm Eyes: Yes: Conjunctiva Clear HENT: Yes: Atraumatic Neck: Yes: Supple Cardiovascular: Yes: S1, S2 Gastrointestinal: Yes: Soft Genitourinary: Yes: WNL Musculoskeletal: Yes: WNL Edema: No Neurological: Yes: Oriented Psychiatric: Yes: Oriented Labs: CBC, BMP 11/21/18 05:34 11/23/18 07:34 INR, PTT INR 1.03 (0.83-1.09) 11/18/18 07:00 Fibrinogen > 500.0 mg/dL (238-498) H 11/18/18 07:00 Problem List - Problems (1) ANA (acute kidney injury) Code(s): N17.9 - ACUTE KIDNEY FAILURE, UNSPECIFIED (2) Atrial fibrillation Code(s): I48.91 - UNSPECIFIED ATRIAL FIBRILLATION Qualifiers: Atrial fibrillation type: unspecified Qualified Code(s): I48.91 - Unspecified atrial fibrillation (3) Colon cancer metastasized to liver Code(s): C18.9 - MALIGNANT NEOPLASM OF COLON, UNSPECIFIED; C78.7 - SECONDARY MALIG NEOPLASM OF LIVER AND INTRAHEPATIC BILE DUCT Assessment/Plan Current Medications Generic Name Dose Route Start Last Admin Trade Name Faustino PRN Reason Stop Dose Admin Acetaminophen 325 mg 10/22/18 06:02 11/16/18 14:00 Tylenol - PO 325 mg QID PRN Administration PAIN Allopurinol 300 mg 10/22/18 10:00 11/23/18 11:20 Zyloprim - PO 300 mg DAILY [facility] Administration Benzocaine/Menthol 1 each 11/10/18 11:36 11/16/18 17:40 Cepacol Lozenge - MM 1 each PRN PRN Administration SORE THROAT Cyanocobalamin 2,500 mcg 10/22/18 10:00 11/23/18 11:18 Vitamin B12 - PO 2,500 mcg DAILY [facility] Administration Doxycycline Hyclate 100 mg 11/22/18 10:00 11/23/18 11:19 Vibramycin - PO 100 mg BID@1000,1800 [facility] Administration Dronabinol 2.5 mg 10/29/18 10:00 11/23/18 11:21 Marinol - PO 2.5 mg DAILY [facility] Administration Gabapentin 400 mg 10/22/18 10:00 11/23/18 11:18 Neurontin - PO 400 mg BID [facility] Administration Guaifenesin 10 ml 11/10/18 11:36 11/20/18 06:39 Robitussin - PO 10 ml Q4H PRN Administration COUGH Insulin Aspart 1 vial 10/22/18 11:00 11/23/18 06:38 Novolog Vial Sliding Scale - SQ Not Given ACHS [facility] Protocol Metoclopramide HCl 10 mg 11/02/18 16:30 11/23/18 11:18 Reglan - PO 10 mg TIDAC [facility] Administration Metoprolol Tartrate 12.5 mg 10/22/18 10:00 11/23/18 11:20 Lopressor - PO 12.5 mg BID [facility] Administration Multi-Ingredient Ointment 1 applic 10/22/18 10:00 11/23/18 11:16 Zinc Oxide TP 1 applic DAILY [facility] Administration Nystatin 1 applic 10/22/18 10:00 11/23/18 11:16 Mycostatin Cream - TP 1 applic DAILY [facility] Administration Ondansetron HCl 4 mg 10/22/18 06:01 Zofran Injection IVPUSH Q8H PRN NAUSEA AND/OR VOMITING Pantoprazole Sodium 20 mg 10/22/18 10:00 11/23/18 11:18 Protonix - PO 20 mg DAILY [facility] Administration Impression 1. ANA 2. multiple myeloma 3. colon cancer 4. anemia 5. abd pain 6. a-fib 7. sepsis Plan - start fluids - pt appears dry, he is not drinking much - visual basic developer is higher - ua neg for blood or protein - cont to monitor renal function - pt agrees to IV
[2018-11-23] MEDS: SODIUM CHLORIDE 0.45% 1,000 ML IV SCH (12:49)
--- NOTE | 2018-11-23 16:20 | PN ---
Progress Note (short form) - Note Progress Note: Patient seen and examined Episodes of nausea and emesis today Poor p.o. intake Somewhat dry Receiving IV hydration To be on bacterial suppression Last Vital Signs Temp Pulse Resp BP Pulse Ox 98.6 F 90 18 104/63 93 L 11/23/18 11:00 11/23/18 11:00 11/23/18 11:00 11/23/18 11:00 11/22/18 21:00 HEENT:anisocoria ptosis Cor: RSR, No murmurs, No gallops Lungs: Clear to P&A Abd: Soft, Normal bowel sounds, No organomegaly Ext:No significant edema Skin: No rashes, Integument intact CBC, BMP 11/21/18 05:34 11/23/18 07:34 Current Medications Generic Name Dose Route Start Last Admin Trade Name Freq PRN Reason Stop Dose Admin Acetaminophen 325 mg 10/22/18 06:02 11/16/18 14:00 Tylenol - PO 325 mg QID PRN Administration PAIN Allopurinol 300 mg 10/22/18 10:00 11/23/18 11:20 Zyloprim - PO 300 mg DAILY [facility] Administration Benzocaine/Menthol 1 each 11/10/18 11:36 11/16/18 17:40 Cepacol Lozenge - MM 1 each PRN PRN Administration SORE THROAT Cyanocobalamin 2,500 mcg 10/22/18 10:00 11/23/18 11:18 Vitamin B12 - PO 2,500 mcg DAILY [facility] Administration Doxycycline Hyclate 100 mg 11/22/18 10:00 11/23/18 11:19 Vibramycin - PO 100 mg BID@1000,1800 [facility] Administration Dronabinol 2.5 mg 10/29/18 10:00 11/23/18 11:21 Marinol - PO 2.5 mg DAILY [facility] Administration Gabapentin 400 mg 10/22/18 10:00 11/23/18 11:18 Neurontin - PO 400 mg BID [facility] Administration Guaifenesin 10 ml 11/10/18 11:36 11/20/18 06:39 Robitussin - PO 10 ml Q4H PRN Administration COUGH Sodium Chloride 1,000 mls @ 83 mls/hr 11/23/18 12:45 11/23/18 12:49 1/2 Normal Saline IV 83 mls/hr ASDIR [facility] Administration Insulin Aspart 1 vial 10/22/18 11:00 11/23/18 12:50 Novolog Vial Sliding Scale - SQ Not Given ACHS [facility] Protocol Metoclopramide HCl 10 mg 11/02/18 16:30 11/23/18 11:18 Reglan - PO 10 mg TIDAC [facility] Administration Metoprolol Tartrate 12.5 mg 10/22/18 10:00 11/23/18 11:20 Lopressor - PO 12.5 mg BID [facility] Administration Multi-Ingredient Ointment 1 applic 10/22/18 10:00 11/23/18 11:16 Zinc Oxide TP 1 applic DAILY [facility] Administration Nystatin 1 applic 10/22/18 10:00 11/23/18 11:16 Mycostatin Cream - TP 1 applic DAILY [facility] Administration Ondansetron HCl 4 mg 10/22/18 06:01 11/23/18 12:49 Zofran Injection IVPUSH 4 mg Q8H PRN Administration NAUSEA AND/OR VOMITING Pantoprazole Sodium 20 mg 10/22/18 10:00 11/23/18 11:18 Protonix - PO 20 mg DAILY [facility] Administration Impression: MRSA bacteremia Colon ca Liver mets- s/p ablation Myeloma - s/p transplant Anemia CKD/ANA DM Plans: per ID for transfer Might be candidate for chemotherapy and/or gamma globulin in future.
[2018-11-23 22:25] VITALS: BMI 26.9
[2018-11-24] MEDS: INSULIN SLIDING SCALE (NOVOLOG) 1 VIAL SQ SCH ×4 (06:39→21:17)
[2018-11-24] MEDS: METOCLOPRAMIDE HCL 10 MG TABLET (FP) PO SCH ×3 (06:39→17:51)
[2018-11-24 08:14] LABS: BASO % 0.7 % (0-2.0); EOS % 2.9 % (0-4.5); HEMATOCRIT 26.2 % (35.4-49); HEMOGLOBIN 8.7 GM/dL (11.7-16.9); MCH 32.1 pg (25.7-33.7); MCHC 33.1 g/dl (32.0-35.9); MEAN CELL VOLUME 96.9 fl (80-96); MEAN PLT VOLUME 8.4 fl (7.5-11.1); MONO % 11.7 % (3.8-10.2); NEUT % 64.7 % (42.8-82.8); PLATELET COUNT 80 K/MM3 (134-434); RBC 2.71 M/mm3 (4.00-5.60); RDW 21.4 % (11.9-15.9); WHITE BLOOD COUNT 3.6 K/mm3 (4.0-10.0)
[2018-11-24 08:20] LABS: ALBUMIN 2.8 g/dl (3.4-5.0); BILIRUBIN,TOTAL 0.6 mg/dL (0.2-1); BLOOD UREA NITROGEN 18.6 mg/dL (7-18); CALCIUM 8.8 mg/dL (8.5-10.1); CREATININE 2.3 mg/dL (0.55-1.3); POTASSIUM 3.7 mmol/L (3.5-5.1); TOT PROT 6.1 g/dl (6.4-8.2)
--- NOTE | 2018-11-24 09:56 | PN ---
Progress Note (short form) - Note Progress Note: pt seen/ examined events noted comfortable today Had episodes of vomiting yesterday getting fluids denies n/v today cr same - 2.3. Discharge was held--- due to above. Vital Signs Temp 98.1 F 11/24/18 07:17 Pulse 75 11/24/18 07:17 Resp 20 11/24/18 07:17 BP 98/62 11/24/18 07:17 Pulse Ox 93 L 11/23/18 21:00 Intake & Output 11/23/18 11/23/18 11/24/18 11:59 23:59 11:59 Intake Total 0 615 798 Output Total 250 480 Balance 0 365 318 Weight 182 lb 9.6 oz 183 lb 6 oz Intake: IV 415 498 1/2 Normal Saline 1,000 415 498 ml @ 83 mls/hr IV ASDIR [facility] Rx#:[id number] IVPB 0 Oral 200 300 Output: Urine 250 480 Void 250 480 Other: Voiding Method Urinal Urinal # Unmeasured Voids Void 1 1 Bowel Movement No No Body Mass Index (BMI) 26.9 Weight Measurement Method Built in Bedscale Built in Bedscale Active Medications Acetaminophen (Tylenol -) 325 mg PO QID PRN PRN Reason: PAIN Last Admin: 11/16/18 14:00 Dose: 325 mg Allopurinol (Zyloprim -) 300 mg PO DAILY [facility] Last Admin: 11/23/18 11:20 Dose: 300 mg Benzocaine/Menthol (Cepacol Lozenge -) 1 each MM PRN PRN PRN Reason: SORE THROAT Last Admin: 11/16/18 17:40 Dose: 1 each Cyanocobalamin (Vitamin B12 -) 2,500 mcg PO DAILY [facility] Last Admin: 11/23/18 11:18 Dose: 2,500 mcg Doxycycline Hyclate (Vibramycin -) 100 mg PO BID@1000,1800 [facility] Last Admin: 11/23/18 17:53 Dose: 100 mg Dronabinol (Marinol -) 2.5 mg PO DAILY [facility] Last Admin: 11/23/18 11:21 Dose: 2.5 mg Gabapentin (Neurontin -) 400 mg PO BID [facility] Last Admin: 11/23/18 21:31 Dose: 400 mg Guaifenesin (Robitussin -) 10 ml PO Q4H PRN PRN Reason: COUGH Last Admin: 11/20/18 06:39 Dose: 10 ml Sodium Chloride (1/2 Normal Saline) 1,000 mls @ 83 mls/hr IV ASDIR [facility] Last Admin: 11/23/18 12:49 Dose: 83 mls/hr Insulin Aspart (Novolog Vial Sliding Scale -) 1 vial SQ ACHS [facility]; Protocol Last Admin: 11/24/18 06:39 Dose: Not Given Metoclopramide HCl (Reglan -) 10 mg PO TIDAC [facility] Last Admin: 11/24/18 06:39 Dose: 10 mg Metoprolol Tartrate (Lopressor -) 12.5 mg PO BID [facility] Last Admin: 11/23/18 21:31 Dose: 12.5 mg Multi-Ingredient Ointment (Zinc Oxide) 1 applic TP DAILY [facility] Last Admin: 11/23/18 11:16 Dose: 1 applic Nystatin (Mycostatin Cream -) 1 applic TP DAILY [facility] Last Admin: 11/23/18 11:16 Dose: 1 applic Ondansetron HCl (Zofran Injection) 4 mg IVPUSH Q8H PRN PRN Reason: NAUSEA AND/OR VOMITING Last Admin: 11/23/18 12:49 Dose: 4 mg Pantoprazole Sodium (Protonix -) 20 mg PO DAILY [facility] Last Admin: 11/23/18 11:18 Dose: 20 mg CBC, BMP 11/24/18 07:05 11/24/18 07:05 Physical Exam. Awake/ comfortable [id number] Lungs - diminished at bases. Abd- soft, Non tender. bs + no edema alert and awake PLAN Clinically better Denies any nausea or vomiting today Creatinine--- 2.3 Monitor IV fluids Renal to follow Will follow Problem List - Problems (1) Sepsis Code(s): A41.9 - SEPSIS, UNSPECIFIED ORGANISM (2) Atrial fibrillation Code(s): I48.91 - UNSPECIFIED ATRIAL FIBRILLATION Qualifiers: Atrial fibrillation type: unspecified Qualified Code(s): I48.91 - Unspecified atrial fibrillation (3) Colon cancer metastasized to liver Code(s): C18.9 - MALIGNANT NEOPLASM OF COLON, UNSPECIFIED; C78.7 - SECONDARY MALIG NEOPLASM OF LIVER AND INTRAHEPATIC BILE DUCT (4) Failure to thrive Code(s): [id number] - Qualifiers: Failure to thrive age range: in adult Qualified Code(s): R62.7 - Adult failure to thrive
[2018-11-24] MEDS ORDERED: PT OWN MED DRAWER 7, Y5N ONE (10:06)
[2018-11-24] MEDS: ALLOPURINOL 300 MG TABLET (FP) PO SCH (10:09)
[2018-11-24] MEDS: METOPROLOL TARTRATE 25 MG TABLET (FP) PO SCH ×2 (10:09→21:17)
[2018-11-24] MEDS: PANTOPRAZOLE 20 MG TABLET (FP) PO SCH (10:09)
[2018-11-24] MEDS: CYANOCOBALAMIN 1,000 MCG TABLET (FP) PO SCH (10:10)
[2018-11-24] MEDS: DOXYCYCLINE HYCLATE 100 MG CAPSULE PO SCH ×2 (10:10→17:51)
[2018-11-24] MEDS: GABAPENTIN 400 MG CAPSULE (FP) PO SCH ×2 (10:11→21:17)
[2018-11-24] MEDS: DRONABINOL 2.5 MG CAPSULE PO SCH (10:11)
[2018-11-24] MEDS: NYSTATIN 100,000 UNIT/GM TOPICAL CREAM 15 GM TUBE TP SCH (10:12)
[2018-11-24] MEDS: ZINC OXIDE 20% TOPICAL OINTMENT 30 GM TUBE TP SCH (10:12)
[2018-11-24 11:32] LABS: ANISOCYTOSIS 1+; MACROCYTOSIS 1+; PLATELET ESTIMATE DECREASED; TEAR DROP CELLS 1+
[2018-11-24] MEDS: SODIUM CHLORIDE 0.45% 1,000 ML IV SCH ×2 (14:52→15:35)
--- NOTE | 2018-11-24 14:58 | PN ---
Progress Note, Physician History of Present Illness: Pt seen and examined at bedside. He is awake and alert. He denies shortness of breath. - Current Medication List Current Medications: Active Medications Acetaminophen (Tylenol -) 325 mg PO QID PRN PRN Reason: PAIN Last Admin: 11/16/18 14:00 Dose: 325 mg Allopurinol (Zyloprim -) 300 mg PO DAILY [facility] Last Admin: 11/24/18 10:09 Dose: 300 mg Benzocaine/Menthol (Cepacol Lozenge -) 1 each MM PRN PRN PRN Reason: SORE THROAT Last Admin: 11/16/18 17:40 Dose: 1 each Cyanocobalamin (Vitamin B12 -) 2,500 mcg PO DAILY [facility] Last Admin: 11/24/18 10:10 Dose: 2,500 mcg Doxycycline Hyclate (Vibramycin -) 100 mg PO BID@1000,1800 [facility] Last Admin: 11/24/18 10:10 Dose: 100 mg Dronabinol (Marinol -) 2.5 mg PO DAILY [facility] Last Admin: 11/24/18 10:11 Dose: 2.5 mg Gabapentin (Neurontin -) 400 mg PO BID [facility] Last Admin: 11/24/18 10:11 Dose: 400 mg Guaifenesin (Robitussin -) 10 ml PO Q4H PRN PRN Reason: COUGH Last Admin: 11/20/18 06:39 Dose: 10 ml Sodium Chloride (1/2 Normal Saline) 1,000 mls @ 83 mls/hr IV ASDIR [facility] Last Admin: 11/24/18 14:52 Dose: 83 mls/hr Insulin Aspart (Novolog Vial Sliding Scale -) 1 vial SQ ACHS [facility]; Protocol Last Admin: 11/24/18 14:49 Dose: Not Given Metoclopramide HCl (Reglan -) 10 mg PO TIDAC [facility] Last Admin: 11/24/18 10:11 Dose: 10 mg Metoprolol Tartrate (Lopressor -) 12.5 mg PO BID [facility] Last Admin: 11/24/18 10:09 Dose: 12.5 mg Multi-Ingredient Ointment (Zinc Oxide) 1 applic TP DAILY [facility] Last Admin: 11/24/18 10:12 Dose: 1 applic Nystatin (Mycostatin Cream -) 1 applic TP DAILY [facility] Last Admin: 08/08/19 10:12 Dose: 1 applic Ondansetron HCl (Zofran Injection) 4 mg IVPUSH Q8H PRN PRN Reason: NAUSEA AND/OR VOMITING Last Admin: 11/23/18 12:49 Dose: 4 mg Pantoprazole Sodium (Protonix -) 20 mg PO DAILY [facility] Last Admin: 11/24/18 10:09 Dose: 20 mg - Objective Vital Signs: Vital Signs Temperature 98.1 F 11/24/18 07:17 Pulse Rate 75 11/24/18 07:17 Respiratory Rate 20 11/24/18 07:17 Blood Pressure 98/62 11/24/18 07:17 O2 Sat by Pulse Oximetry (%) 93 L 11/23/18 21:00 Constitutional: Yes: Calm Eyes: Yes: Conjunctiva Clear HENT: Yes: Atraumatic Neck: Yes: Supple Cardiovascular: Yes: S1, S2 Respiratory: Yes: CTA Bilaterally Gastrointestinal: Yes: Normal Bowel Sounds, Soft Genitourinary: Yes: WNL Musculoskeletal: Yes: WNL Edema: No Neurological: Yes: Oriented Psychiatric: Yes: Oriented Labs: CBC, BMP 11/24/18 07:05 11/24/18 07:05 INR, PTT INR 1.03 (0.83-1.09) 11/18/18 07:00 Fibrinogen > 500.0 mg/dL (238-498) H 11/18/18 07:00 Problem List - Problems (1) ANA (acute kidney injury) Code(s): N17.9 - ACUTE KIDNEY FAILURE, UNSPECIFIED (2) Atrial fibrillation Code(s): I48.91 - UNSPECIFIED ATRIAL FIBRILLATION Qualifiers: Atrial fibrillation type: unspecified Qualified Code(s): I48.91 - Unspecified atrial fibrillation (3) Colon cancer metastasized to liver Code(s): C18.9 - MALIGNANT NEOPLASM OF COLON, UNSPECIFIED; C78.7 - SECONDARY MALIG NEOPLASM OF LIVER AND INTRAHEPATIC BILE DUCT Assessment/Plan Current Medications Generic Name Dose Route Start Last Admin Trade Name Freq PRN Reason Stop Dose Admin Acetaminophen 325 mg 10/22/18 06:02 11/16/18 14:00 Tylenol - PO 325 mg QID PRN Administration PAIN Allopurinol 300 mg 10/22/18 10:00 11/24/18 10:09 Zyloprim - PO 300 mg DAILY [facility] Administration Benzocaine/Menthol 1 each 11/10/18 11:36 11/16/18 17:40 Cepacol Lozenge - MM 1 each PRN PRN Administration SORE THROAT Cyanocobalamin 2,500 mcg 10/22/18 10:00 11/24/18 10:10 Vitamin B12 - PO 2,500 mcg DAILY [facility] Administration Doxycycline Hyclate 100 mg 11/22/18 10:00 11/24/18 10:10 Vibramycin - PO 100 mg BID@1000,1800 [facility] Administration Dronabinol 2.5 mg 10/29/18 10:00 11/24/18 10:11 Marinol - PO 2.5 mg DAILY [facility] Administration Gabapentin 400 mg 10/22/18 10:00 11/24/18 10:11 Neurontin - PO 400 mg BID [facility] Administration Guaifenesin 10 ml 11/10/18 11:36 11/20/18 06:39 Robitussin - PO 10 ml Q4H PRN Administration COUGH Sodium Chloride 1,000 mls @ 83 mls/hr 11/23/18 12:45 11/24/18 14:52 1/2 Normal Saline IV 83 mls/hr ASDIR [facility] Administration Insulin Aspart 1 vial 10/22/18 11:00 11/24/18 14:49 Novolog Vial Sliding Scale - SQ Not Given ACHS [facility] Protocol Metoclopramide HCl 10 mg 11/02/18 16:30 11/24/18 10:11 Reglan - PO 10 mg TIDAC [facility] Administration Metoprolol Tartrate 12.5 mg 10/22/18 10:00 11/24/18 10:09 Lopressor - PO 12.5 mg BID [facility] Administration Multi-Ingredient Ointment 1 applic 10/22/18 10:00 11/24/18 10:12 Zinc Oxide TP 1 applic DAILY [facility] Administration Nystatin 1 applic 10/22/18 10:00 11/24/18 10:12 Mycostatin Cream - TP 1 applic DAILY [facility] Administration Ondansetron HCl 4 mg 10/22/18 06:01 11/23/18 12:49 Zofran Injection IVPUSH 4 mg Q8H PRN Administration NAUSEA AND/OR VOMITING Pantoprazole Sodium 20 mg 10/22/18 10:00 11/24/18 10:09 Protonix - PO 20 mg DAILY [facility] Administration Impression 1. ANA 2. multiple myeloma 3. colon cancer 4. anemia 5. abd pain 6. a-fib 7. 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
[2018-11-25] MEDS: METOCLOPRAMIDE HCL 10 MG TABLET (FP) PO SCH ×3 (06:13→17:27)
[2018-11-25] MEDS: INSULIN SLIDING SCALE (NOVOLOG) 1 VIAL SQ SCH ×3 (06:15→17:33)
[2018-11-25 08:47] LABS: ALBUMIN 2.7 g/dl (3.4-5.0); BILIRUBIN,TOTAL 0.6 mg/dL (0.2-1); CALCIUM 8.6 mg/dL (8.5-10.1); CREATININE 2.1 mg/dL (0.55-1.3); POTASSIUM 3.5 mmol/L (3.5-5.1)
[2018-11-25] MEDS: CYANOCOBALAMIN 1,000 MCG TABLET (FP) PO SCH (09:51)
[2018-11-25] MEDS: METOPROLOL TARTRATE 25 MG TABLET (FP) PO SCH (09:53)
[2018-11-25] MEDS: DOXYCYCLINE HYCLATE 100 MG CAPSULE PO SCH ×2 (09:53→17:27)
[2018-11-25] MEDS: GABAPENTIN 400 MG CAPSULE (FP) PO SCH (09:53)
[2018-11-25] MEDS: PANTOPRAZOLE 20 MG TABLET (FP) PO SCH (09:53)
[2018-11-25] MEDS: ALLOPURINOL 300 MG TABLET (FP) PO SCH (09:53)
[2018-11-25] MEDS: DRONABINOL 2.5 MG CAPSULE PO SCH (09:54)
[2018-11-25] MEDS: ZINC OXIDE 20% TOPICAL OINTMENT 30 GM TUBE TP SCH (09:54)
[2018-11-25] MEDS: NYSTATIN 100,000 UNIT/GM TOPICAL CREAM 15 GM TUBE TP SCH (09:55)
--- NOTE | 2018-11-25 09:57 | PN ---
Progress Note (short form) - Note Progress Note: comfortable feels ok denies pain afebrile denies cp eats ok Vital Signs Temp 98.4 F 11/25/18 06:00 Pulse 86 11/25/18 06:00 Resp 20 11/25/18 06:00 BP 122/75 11/25/18 06:00 Pulse Ox 95 11/24/18 21:00 Intake & Output 11/24/18 11/24/18 11/25/18 11:59 23:59 11:59 Intake Total 798 690 Output Total 480 600 Balance 318 90 Weight 183 lb 6 oz 182 lb 7 oz Intake: IV 498 415 1/2 Normal Saline 1,000 498 415 ml @ 83 mls/hr IV ASDIR [facility] Rx#:[id number] Oral 300 275 Output: Urine 480 600 Void 480 600 Other: Voiding Method Urinal Urinal # Unmeasured Voids Void 1 Bowel Movement Yes No # Bowel Movements 2 Weight Measurement Method Built in Bedscale Built in Bedscale Active Medications Acetaminophen (Tylenol -) 325 mg PO QID PRN PRN Reason: PAIN Last Admin: 11/16/18 14:00 Dose: 325 mg Allopurinol (Zyloprim -) 300 mg PO DAILY [facility] Last Admin: 11/25/18 09:53 Dose: 300 mg Apixaban (Eliquis -) 2.5 mg PO BID [facility] Benzocaine/Menthol (Cepacol Lozenge -) 1 each MM PRN PRN PRN Reason: SORE THROAT Last Admin: 11/16/18 17:40 Dose: 1 each Cyanocobalamin (Vitamin B12 -) 2,500 mcg PO DAILY [facility] Last Admin: 11/25/18 09:51 Dose: 2,500 mcg Doxycycline Hyclate (Vibramycin -) 100 mg PO BID@1000,1800 [facility] Last Admin: 11/25/18 09:53 Dose: 100 mg Dronabinol (Marinol -) 2.5 mg PO DAILY [facility] Last Admin: 11/25/18 09:54 Dose: 2.5 mg Gabapentin (Neurontin -) 400 mg PO BID [facility] Last Admin: 11/25/18 09:53 Dose: 400 mg Guaifenesin (Robitussin -) 10 ml PO Q4H PRN PRN Reason: COUGH Last Admin: 11/20/18 06:39 Dose: 10 ml Sodium Chloride (1/2 Normal Saline) 1,000 mls @ 100 mls/hr IV ASDIR [facility] Last Admin: 11/24/18 15:35 Dose: 100 mls/hr Insulin Aspart (Novolog Vial Sliding Scale -) 1 vial SQ ACHS [facility]; Protocol Last Admin: 11/25/18 06:15 Dose: Not Given Metoclopramide HCl (Reglan -) 10 mg PO TIDAC [facility] Last Admin: 11/25/18 06:13 Dose: 10 mg Metoprolol Tartrate (Lopressor -) 12.5 mg PO BID [facility] Last Admin: 11/25/18 09:53 Dose: 12.5 mg Multi-Ingredient Ointment (Zinc Oxide) 1 applic TP DAILY [facility] Last Admin: 11/25/18 09:54 Dose: 1 applic Nystatin (Mycostatin Cream -) 1 applic TP DAILY [facility] Last Admin: 11/25/18 09:55 Dose: 1 applic Ondansetron HCl (Zofran Injection) 4 mg IVPUSH Q8H PRN PRN Reason: NAUSEA AND/OR VOMITING Last Admin: 11/23/18 12:49 Dose: 4 mg Pantoprazole Sodium (Protonix -) 20 mg PO DAILY [facility] Last Admin: 11/25/18 09:53 Dose: 20 mg CBC, BMP 11/24/18 07:05 11/25/18 07:38 Physical Exam. Awake/ comfortable [id number] Lungs - diminished at bases. Abd- soft, Non tender. bs + no edema alert and awake PLAN Clinically better Denies any nausea or vomiting Creatinine--- 2.3--- 2.1 now Monitor IV fluids Renal to follow Meds reviewed restart on Eliquis -- Renal dose due to Afib d/c planning - when cleared by renal Will follow Problem List - Problems (1) Sepsis Code(s): A41.9 - SEPSIS, UNSPECIFIED ORGANISM (2) Atrial fibrillation Code(s): I48.91 - UNSPECIFIED ATRIAL FIBRILLATION Qualifiers: Atrial fibrillation type: unspecified Qualified Code(s): I48.91 - Unspecified atrial fibrillation (3) Colon cancer metastasized to liver Code(s): C18.9 - MALIGNANT NEOPLASM OF COLON, UNSPECIFIED; C78.7 - SECONDARY MALIG NEOPLASM OF LIVER AND INTRAHEPATIC BILE DUCT (4) Failure to thrive Code(s): [id number] - Qualifiers: Failure to thrive age range: in adult Qualified Code(s): R62.7 - Adult failure to thrive
[2018-11-25] MEDS ORDERED: APIXABAN 2.5 MG TABLET PO SCH (10:00)
--- NOTE | 2018-11-25 12:57 | PN ---
Progress Note, Physician History of Present Illness: Pt seen and examined at bedside. He is awake and alert. He says he feels well. He denies shortness of breath. - Current Medication List Current Medications: Active Medications Acetaminophen (Tylenol -) 325 mg PO QID PRN PRN Reason: PAIN Last Admin: 11/16/18 14:00 Dose: 325 mg Allopurinol (Zyloprim -) 300 mg PO DAILY [facility] Last Admin: 11/25/18 09:53 Dose: 300 mg Apixaban (Eliquis -) 2.5 mg PO BID [facility] Last Admin: 11/25/18 10:57 Dose: 2.5 mg Benzocaine/Menthol (Cepacol Lozenge -) 1 each MM PRN PRN PRN Reason: SORE THROAT Last Admin: 11/16/18 17:40 Dose: 1 each Cyanocobalamin (Vitamin B12 -) 2,500 mcg PO DAILY [facility] Last Admin: 11/25/18 09:51 Dose: 2,500 mcg Doxycycline Hyclate (Vibramycin -) 100 mg PO BID@1000,1800 [facility] Last Admin: 11/25/18 09:53 Dose: 100 mg Dronabinol (Marinol -) 2.5 mg PO DAILY [facility] Last Admin: 11/25/18 09:54 Dose: 2.5 mg Gabapentin (Neurontin -) 400 mg PO BID [facility] Last Admin: 11/25/18 09:53 Dose: 400 mg Guaifenesin (Robitussin -) 10 ml PO Q4H PRN PRN Reason: COUGH Last Admin: 11/20/18 06:39 Dose: 10 ml Sodium Chloride (1/2 Normal Saline) 1,000 mls @ 100 mls/hr IV ASDIR [facility] Last Admin: 11/24/18 15:35 Dose: 100 mls/hr Insulin Aspart (Novolog Vial Sliding Scale -) 1 vial SQ ACHS [facility]; Protocol Last Admin: 11/25/18 06:15 Dose: Not Given Metoclopramide HCl (Reglan -) 10 mg PO TIDAC [facility] Last Admin: 11/25/18 06:13 Dose: 10 mg Metoprolol Tartrate (Lopressor -) 12.5 mg PO BID [facility] Last Admin: 11/25/18 09:53 Dose: 12.5 mg Multi-Ingredient Ointment (Zinc Oxide) 1 applic TP DAILY [facility] Last Admin: 11/25/18 09:54 Dose: 1 applic Nystatin (Mycostatin Cream -) 1 applic TP DAILY [facility] Last Admin: 11/25/18 09:55 Dose: 1 applic Ondansetron HCl (Zofran Injection) 4 mg IVPUSH Q8H PRN PRN Reason: NAUSEA AND/OR VOMITING Last Admin: 11/23/18 12:49 Dose: 4 mg Pantoprazole Sodium (Protonix -) 20 mg PO DAILY [facility] Last Admin: 11/25/18 09:53 Dose: 20 mg - Objective Vital Signs: Vital Signs Temperature 98.4 F 11/25/18 06:00 Pulse Rate 86 11/25/18 06:00 Respiratory Rate 20 11/25/18 06:00 Blood Pressure 122/75 11/25/18 06:00 O2 Sat by Pulse Oximetry (%) 95 11/24/18 21:00 Constitutional: Yes: Calm Eyes: Yes: Conjunctiva Clear HENT: Yes: Atraumatic Cardiovascular: Yes: S1, S2 Respiratory: Yes: CTA Bilaterally Gastrointestinal: Yes: Soft Genitourinary: Yes: WNL Musculoskeletal: Yes: WNL Edema: No Integumentary: Yes: WNL Neurological: Yes: Oriented Psychiatric: Yes: Oriented Labs: CBC, BMP 11/24/18 07:05 11/25/18 07:38 INR, PTT INR 1.03 (0.83-1.09) 11/18/18 07:00 Fibrinogen > 500.0 mg/dL (238-498) H 11/18/18 07:00 Problem List - Problems (1) ANA (acute kidney injury) Code(s): N17.9 - ACUTE KIDNEY FAILURE, UNSPECIFIED (2) Atrial fibrillation Code(s): I48.91 - UNSPECIFIED ATRIAL FIBRILLATION Qualifiers: Atrial fibrillation type: unspecified Qualified Code(s): I48.91 - Unspecified atrial fibrillation (3) Colon cancer metastasized to liver Code(s): C18.9 - MALIGNANT NEOPLASM OF COLON, UNSPECIFIED; C78.7 - SECONDARY MALIG NEOPLASM OF LIVER AND INTRAHEPATIC BILE DUCT Assessment/Plan Current Medications Generic Name Dose Route Start Last Admin Trade Name Freq PRN Reason Stop Dose Admin Acetaminophen 325 mg 10/22/18 06:02 11/16/18 14:00 Tylenol - PO 325 mg QID PRN Administration PAIN Allopurinol 300 mg 10/22/18 10:00 11/25/18 09:53 Zyloprim - PO 300 mg DAILY [facility] Administration Apixaban 2.5 mg 11/25/18 10:00 11/25/18 10:57 Eliquis - PO 2.5 mg BID [facility] Administration Benzocaine/Menthol 1 each 11/10/18 11:36 11/16/18 17:40 Cepacol Lozenge - MM 1 each PRN PRN Administration SORE THROAT Cyanocobalamin 2,500 mcg 10/22/18 10:00 11/25/18 09:51 Vitamin B12 - PO 2,500 mcg DAILY [facility] Administration Doxycycline Hyclate 100 mg 11/22/18 10:00 11/25/18 09:53 Vibramycin - PO 100 mg BID@1000,1800 [facility] Administration Dronabinol 2.5 mg 10/29/18 10:00 11/25/18 09:54 Marinol - PO 2.5 mg DAILY [facility] Administration Gabapentin 400 mg 10/22/18 10:00 11/25/18 09:53 Neurontin - PO 400 mg BID [facility] Administration Guaifenesin 10 ml 11/10/18 11:36 11/20/18 06:39 Robitussin - PO 10 ml Q4H PRN Administration COUGH Sodium Chloride 1,000 mls @ 100 mls/hr 11/24/18 14:58 11/24/18 15:35 1/2 Normal Saline IV 100 mls/hr ASDIR [facility] Administration Insulin Aspart 1 vial 10/22/18 11:00 11/25/18 06:15 Novolog Vial Sliding Scale - SQ Not Given ACHS [facility] Protocol Metoclopramide HCl 10 mg 11/02/18 16:30 11/25/18 06:13 Reglan - PO 10 mg TIDAC [facility] Administration Metoprolol Tartrate 12.5 mg 10/22/18 10:00 11/25/18 09:53 Lopressor - PO 12.5 mg BID [facility] Administration Multi-Ingredient Ointment 1 applic 10/22/18 10:00 11/25/18 09:54 Zinc Oxide TP 1 applic DAILY [facility] Administration Nystatin 1 applic 10/22/18 10:00 11/25/18 09:55 Mycostatin Cream - TP 1 applic DAILY [facility] Administration Ondansetron HCl 4 mg 10/22/18 06:01 11/23/18 12:49 Zofran Injection IVPUSH 4 mg Q8H PRN Administration NAUSEA AND/OR VOMITING Pantoprazole Sodium 20 mg 10/22/18 10:00 11/25/18 09:53 Protonix - PO 20 mg DAILY [facility] Administration Impression 1. ANA 2. multiple myeloma 3. colon cancer 4. anemia 5. abd pain 6. a-fib 7. sepsis Plan - renal function is improving - will need outpt follow up - cont fluids while he is here - monitor renal function in rehab - discussed with medical team - ua neg for blood or protein
[2018-11-25 17:27] VITALS: BP 112/68; PULSE 90; TEMP 98.3
[2018-11-25] MEDS: SODIUM CHLORIDE 0.45% 1,000 ML IV SCH (17:34)
== END 2018-11-25 21:16 | DRG 435 ==
LOC: JER 15:00 → JERBED 21:10 → J8W 10-22 04:56
PROVIDERS: ADMIT Internal Medicine; ATTEND Internal Medicine
DX: C78.7 Secondary malignant neoplasm of liver and intrahepatic bile duct (principal); E43 Unspecified severe protein-calorie malnutrition; A41.02 Sepsis due to Methicillin resistant Staphylococcus aureus; C90.00 Multiple myeloma not having achieved remission; R64 Cachexia; G61.81 Chronic inflammatory demyelinating polyneuritis; K56.690 Other partial intestinal obstruction; B37.0 Candidal stomatitis; N17.9 Acute kidney failure, unspecified; E11.42 Type 2 diabetes mellitus with diabetic polyneuropathy; R62.7 Adult failure to thrive; Z68.26 Body mass index [BMI] 26.0-26.9, adult; R13.10 Dysphagia, unspecified; B37.9 Candidiasis, unspecified; D70.9 Neutropenia, unspecified; D69.6 Thrombocytopenia, unspecified; I48.0 Paroxysmal atrial fibrillation; Z85.038 Personal history of other malignant neoplasm of large intestine; K76.0 Fatty (change of) liver, not elsewhere classified; M10.9 Gout, unspecified; Z90.49 Acquired absence of other specified parts of digestive tract; I10 Essential (primary) hypertension; Z79.01 Long term (current) use of anticoagulants; H02.402 Unspecified ptosis of left eyelid; Z86.73 Personal history of transient ischemic attack (TIA), and cerebral infarction without residual deficits; K21.9 Gastro-esophageal reflux disease without esophagitis; Z87.891 Personal history of nicotine dependence; D64.9 Anemia, unspecified; F10.21 Alcohol dependence, in remission; H40.9 Unspecified glaucoma; K22.2 Esophageal obstruction; Z22.322 Carrier or suspected carrier of Methicillin resistant Staphylococcus aureus; R11.10 Vomiting, unspecified; M54.5 Low back pain; G89.29 Other chronic pain; E11.43 Type 2 diabetes mellitus with diabetic autonomic (poly)neuropathy; T36.8X5A Adverse effect of other systemic antibiotics, initial encounter; Y92.89 Other specified places as the place of occurrence of the external cause
CPT/HCPCS: 36415; 71045-TC-FY; 74170-TC; 74177-TC; 76705-TC; 76775-TC; 80048; 80053; 81003; 82436; 82550; 82565; 82962; 83605; 83690; 83735; 84100; 84133; 84300; 84484; 85025; 85027; 85384; 85610; 85730; 86022; 87040; 87086; 87186; 87804; 93005; 93010; 93306-TC; 93970-TC; 97116-GP; 97162-GP; 99283-25; G0480; J0131; J0878; J1644; J7030; Q9967

== ENCOUNTER 2018-11-30 14:02 | Inpatient (IN) | payer OTHER ==
[2018-11-30] MEDS ORDERED: SODIUM CHLORIDE 1,000 ML IV STA (15:03)
[2018-11-30] MEDS ORDERED: RANITIDINE HCL 150 MG/10 ML UNIT-DOSE PO ONE (15:03)
--- NOTE | 2018-11-30 15:05 | PDOC ---
Documentation entered by Elisa Luther SCRIBE, acting as scribe for Melody Degroot MD. Melody Degroot MD: This documentation has been prepared by the Homa castillo Brenda, SCRIBE, under my direction and personally reviewed by me in its entirety. I confirm that the documentation accurately reflects all work, treatment, procedures, and medical decision making performed by me. Attending Attestation - Resident Resident Name: Rodger Shanks - ED Attending Attestation I have performed the following: I have examined & evaluated the patient, The case was reviewed & discussed with the resident, I agree w/resident's findings & plan, Exceptions are as noted - HPI HPI: 11/30/18 14:57 The patient is a 73 year old male, with a significant PMH of Chronic Inflammatory Demyelinating Polyneuropathy (CIDP), colon CA with mets to liver/ gallbladder, multiple myeloma, and IDDM, with recent discharge after prolonged hospital stay for sepsis (35 days), who presents to the emergency department BIBA from rehabilitation facility, where he was discharged to, with 3 days of difficulty swallowing. As per patient he has been having more trouble swallowing solids than liquids. Patient is reported to have had dysphasia in the past, attributed to the CIDP. The patient denies chest pain, shortness of breath, headache and dizziness. Denies fever, chills, nausea, vomiting, diarrhea and constipation. Denies any urinary symptoms. . Allergies: NKA Past surgical history: colectomy, liver surgery, LEFT KNEE ARTHROSCOPY Social history: Former smoker, quit 1975 Neurologist - Dr. Bernal PCP - Dr. Car 73 yo male with demylinating. disorder, inability to tolerate PO. nuerologsit dr bernal. plan labs dr. bernal. r/o dhydration electrolyte abnormality, possible peg tube. will admit for inability to tolerate PO. 11/30/18 16:59 - Physicial Exam PE: 12/01/18 09:06 awake alert NAD lungs clear bilat heart rrrr no mrg abd soft nt nd ext wwp no edema. skin no rash. nuero alert oriented x 3. moves all ext facies symmetric speech clear. - Medical Decision Making 11/30/18 14:59 73 yo with h/o nueromuscular disorder here wtih inability to tolerate PO for 3 days. likley due to worsening demylenating disorder. will likley require admission d/w dr Bernal, recommend admission for IVIG. d/w hospitalst, pt to be admitted to DR Cannon, has been admitted to [facility] in the past, see dr Anderson, [facility] 11/30/18 18:33 Heart Score/ECG Review #1 General ECG Interpretation: Sinus Rhythm, Normal Rate, Normal Intervals, No acute ischemic changes Compared to previous ECG there are: Other (left axis.)
--- NOTE | 2018-11-30 15:43 | PDOC ---
History of Present Illness - General Chief Complaint: Loss of Appetite Stated Complaint: Loss of Appetite Time Seen by Provider: 11/30/18 14:19 - History of Present Illness Initial Comments: 11/30/18 15:11 Mr. Rachel is a 73 y/o M with hx Chronic Inflammatory Demyelinating Polyneuropathy (CIDP), colon CA with mets to liver/gallbladder, multiple myeloma , and IDDM, with recent discharge after prolonged hospital stay for sepsis (35 days), p/w three days of difficulty swallowing solids > liquids. He arrived via EMS from rehab facility where he was discharged to after the admission. He has had dysphagia in the past, attributed to the CIDP, which was responsive to IVIG. He reports that his last dose of IVIG was in August 2018. He describes the dysphagia as his mouth "spasming", in particular with dry food, and reports that if he is able to pass the food down his throat it can often pass, although he reports feeling unsure of where the difficulty to swallow is. He was discharged on 11/25/2018 after a 35 day hospital stay here for MRSA bactremia, and reports that he had a peg tube in place during that admission that was removed. He reports that he was able to tolerate po normally after the admission but began to worsen shortly after arriving at the rehab center. He denies any fevers nausea, abdominal pain, chest pain, or shortness of breath. Neurologist - Dr. Monaco PCP - Dr. Car Past History - Past Medical History Allergies/Adverse Reactions: Allergies Allergy/AdvReac Type Severity Reaction Status Date / Time No Known Allergies Allergy Verified 11/30/18 15:19 Home Medications: Ambulatory Orders Gabapentin 400 mg PO BID 10/04/16 Allopurinol 300 mg PO DAILY 10/21/17 Cyanocobalamin (Vitamin B-12) [Vitamin B12] 2,500 mcg PO DAILY 10/21/17 oxyCODONE HCL [Roxicodone -] 10 mg PO Q4H PRN #30 tablet MDD 4 10/11/18 Metoprolol Tartrate 12.5 mg PO BID #60 tablet 10/13/18 Acetaminophen 325 mg PO QID PRN 10/21/18 Nystatin 1 each MC DAILY 10/21/18 Omeprazole 20 mg PO DAILY 10/21/18 Zinc Oxide 20% Topical Oint 454 gm NR DAILY 10/21/18 Dronabinol [Marinol -] 2.5 mg PO DAILY capsule MDD 1 11/11/18 Doxycycline Hyclate [Vibramycin -] 100 mg PO BID@1000,1800 capsule 11/23/18 Guaifenesin [Robitussin -] 10 ml PO Q4H PRN cup 11/23/18 Insulin Sliding Scale [Novolog Vial Sliding Scale -] 1 vial SQ ACHS units 11/23 Metoclopramide HCl [Reglan -] 10 mg PO TIDAC tablet 11/23/18 oxyCODONE SR [Oxycontin] 10 mg PO BID #30 tab.er.12h MDD 2 11/23/18 Apixaban [Eliquis -] 2.5 mg PO BID tablet 11/25/18 Apixaban [Eliquis] 2.5 mg PO BID #30 tablet 11/25/18 Anemia: No Asthma: No Cancer: Yes (liver,colon,multiple myeloma) Cardiac Disorders: Yes (chronic AFIB) CVA: Yes (TIA-left eye) COPD: No CHF: No Dementia: No Diabetes: Yes GI Disorders: Yes (GERD) Disorders: No HTN: Yes Hypercholesterolemia: No Liver Disease: Yes Seizures: No Thyroid Disease: No - Surgical History Abdominal Surgery: Yes (colectomy, liver surgery) Appendectomy: No Cardiac Surgery: No Cholecystectomy: No Lung Surgery: No Neurologic Surgery: No Orthopedic Surgery: Yes (LEFT KNEE ARTHROSCOPY) - Immunization History Immunization Up to Date: Yes - Suicide/Smoking/Psychosocial Hx Smoking History: Former smoker Have you smoked in the past 12 months: No If you are a former smoker, when did you quit?: 1975 Hx Alcohol Use: No Drug/Substance Use Hx: No Substance Use Type: None Hx Substance Use Treatment: (RECOVERING ALCOHOLIC 1982) Review of Systems - Review of Systems Able to Perform ROS?: Yes Comments:: 11/30/18 16:44 ROS: GENERAL/CONSTITUTIONAL: No fever or chills. No weakness. HEAD, EYES, EARS, NOSE AND THROAT: Dysphagia, solids > liquids. No change in vision. No ear pain or discharge. No sore throat. CARDIOVASCULAR: No chest pain or shortness of breath RESPIRATORY: No cough, wheezing, or hemoptysis. GASTROINTESTINAL: No nausea, vomiting, diarrhea or constipation. GENITOURINARY: No dysuria, frequency, or change in urination. MUSCULOSKELETAL: No joint or muscle swelling or pain. No neck or back pain. SKIN: No rash NEUROLOGIC: No headache, vertigo, loss of consciousness, or change in strength/ sensation. ENDOCRINE: No increased thirst. No abnormal weight change HEMATOLOGIC/LYMPHATIC: No anemia, easy bleeding, or history of blood clots. ALLERGIC/IMMUNOLOGIC: No hives or skin allergy. *Physical Exam - Physical Exam Comments: 11/30/18 16:45 PE: GENERAL: Awake, alert, and fully oriented, in no acute distress HEAD: No signs of trauma, normocephalic, atraumatic EYES: PERRLA, EOMI, sclera anicteric, conjunctiva clear ENT: Auricles normal inspection, hearing grossly normal, nares patent, oropharynx clear without exudates. Moist mucosa NECK: Normal ROM, supple, no lymphadenopathy, JVD, or masses LUNGS: No distress, speaks full sentences, clear to auscultation bilaterally HEART: Regular rate and rhythm, normal S1 and S2, no murmurs, rubs or gallops, peripheral pulses normal and equal bilaterally. ABDOMEN: Soft, nontender, normoactive bowel sounds. No guarding, no rebound. No masses EXTREMITIES : Normal inspection, Normal range of motion, no edema. No clubbing or cyanosis. NEUROLOGICAL: Normal speech, normal gait, no focal sensorimotor deficits SKIN: Warm, Dry, normal turgor, no rashes or lesions noted ED Treatment Course - LABORATORY CBC & Chemistry Diagram: 11/30/18 15:42 11/30/18 15:42 Medical Decision Making - Medical Decision Making 73 y/o M with hx CIDP with prior episodes dysphagia, multiple myeloma, colon CA with mets to liver/gallbladder, p/w three days of dysphagia with solids > liquids, consistent with worsening CIDP. Plan for basic labs, type/screen. coags , fluid bolus given probably dehydration. Plan: - CBC - CMP - T/S - PT/INR - PTT - Neurology consult (Dr. Monaco) - Likely admission 11/30/18 16:[address] Monaco (Neurology). He is in agreement with plan for admission and will consult inpatient team. Dysphagia likely to CIDP, given time since last dose may require more frequent dosing. Plan for admission pending labs. *DC/Admit/Observation/Transfer Diagnosis at time of Disposition: CIDP (chronic inflammatory demyelinating polyneuropathy) Dysphagia Qualifiers: Dysphagia type: unspecified Qualified Code(s): R13.10 - Dysphagia, unspecified - Discharge Dispostion Decision to Admit order: Yes - Referrals Referrals: Richard Bowman MD [Primary Care Provider] - - Patient Instructions - Post Discharge Activity
[2018-11-30] MEDS ORDERED: FAMOTIDINE 20 MG/50 ML IVPB 20 MG/50 ML MG IVPB ONE ×2 (16:23→17:33)
[2018-11-30 16:25] LABS: HEMOGLOBIN 11.5 GM/dL (11.7-16.9); MCHC 32.7 g/dl (32.0-35.9); MONO % 11.4 % (3.8-10.2); WHITE BLOOD COUNT 4.1 K/mm3 (4.0-10.0)
[2018-11-30 16:50] LABS: ALBUMIN 3.5 g/dl (3.4-5.0); BILIRUBIN,TOTAL 0.8 mg/dL (0.2-1); BLOOD UREA NITROGEN 25.3 mg/dL (7-18); CALCIUM 9.3 mg/dL (8.5-10.1); CREATININE 1.8 mg/dL (0.55-1.3); POTASSIUM 3.7 mmol/L (3.5-5.1); TOT PROT 7.2 g/dl (6.4-8.2)
[2018-11-30 16:55] LABS: BASO % 0.5 % (0-2.0); HEMATOCRIT 35.3 % (35.4-49); LYMPH % 19.3 % (8-40); MCH 31.8 pg (25.7-33.7); MEAN CELL VOLUME 97.4 fl (80-96); MEAN PLT VOLUME 9.3 fl (7.5-11.1); NEUT % 67.8 % (42.8-82.8); PLATELET COUNT 114 K/MM3 (134-434); RBC 3.62 M/mm3 (4.00-5.60)
[2018-11-30 16:56] LABS: INR 1.18 (0.83-1.09); PROTHROMBIN TIME (PATIENT) 13.9 SEC (9.7-13.0)
[2018-11-30 16:58] LABS: ACTIVATED PTT 31.5 SECONDS (25.2-36.5)
[2018-11-30 18:58] LABS: ANISOCYTOSIS 2+; MACROCYTOSIS 2+; PLATELET ESTIMATE DECREASED
[2018-11-30] MEDS ORDERED: ACETAMINOPHEN 325 MG TABLET (FP) PO PRN (21:39)
[2018-11-30] MEDS ORDERED: oxyCODONE HCL 5 MG TABLET PO PRN (21:42)
[2018-11-30] MEDS ORDERED: SODIUM CHLORIDE 1,000 ML IV SCH (21:45)
--- NOTE | 2018-11-30 21:45 | HP ---
CHIEF COMPLAINT: difficulty swallowing, loss of appetite PCP: Dr. Cannon HISTORY OF PRESENT ILLNESS: 73 year old male with PMhx of Chronic Inflammatory Demyelinating Polyneuropathy (CIDP), colon CA with mets to liver/gallbladder, multiple myeloma, and IDDM, with recent discharge after prolonged hospital stay for sepsis (35 days). Patient complain of three days of difficulty swallowing more trouble swallowing solids than liquids. Pateint arrived via EMS from rehab facility. Patient has had dysphagia in the past, attributed to the CIDP, which was responsive to IVIG. patient reports that his last dose of IVIG was in August 2018. In the past patient had PEG placed and was successfully removed after patent swallowing improved. The dysphagia described as his mouth "spasming", in particular with dry food. Patient denies any fevers nausea, abdominal pain, chest pain, or shortness of breath. ER course was notable for: EKG: NSR (1) spoke to neurology ==> dr Monaco, recommend admission for IVIG. (2) c/o of GERD: given pepcid, zantac x1 (3) IVF in place Recent Travel:No PAST MEDICAL HISTORY:(liver,colon,multiple myeloma), chronic A-fib, TIA, DM, GERD, HTN PAST SURGICAL HISTORY: colectomy, liver surgery, LEFT KNEE ARTHROSCOPY Social History: Smoking: former smoker, quit 1975 Alcohol: recovering alcoholic since 1982 Drugs: No Family History: father & mother (lung ca), brother (colon ca) Allergies: No Known Allergies Allergy (Verified 11/30/18 15:19) HOME MEDICATIONS: Home Medications Medication Instructions Recorded Gabapentin 400 mg PO BID 10/04/16 Allopurinol 300 mg PO DAILY 10/21/17 Cyanocobalamin (Vitamin B-12) 2,500 mcg PO DAILY 10/21/17 [Vitamin B12] oxyCODONE HCL [Roxicodone -] 10 mg PO Q4H PRN #30 tablet MDD 4 10/11/18 Metoprolol Tartrate 12.5 mg PO BID #60 tablet 10/13/18 Acetaminophen 325 mg PO QID PRN 10/21/18 Nystatin 1 each MC DAILY 10/21/18 Omeprazole 20 mg PO DAILY 10/21/18 Zinc Oxide 20% Topical Oint 454 gm NR DAILY 10/21/18 Dronabinol [Marinol -] 2.5 mg PO DAILY capsule MDD 1 11/11/18 Doxycycline Hyclate [Vibramycin -] 100 mg PO BID@1000,1800 capsule 11/23/18 Guaifenesin [Robitussin -] 10 ml PO Q4H PRN cup 11/23/18 Insulin Sliding Scale [Novolog 1 vial SQ ACHS units 11/23/18 Vial Sliding Scale -] Metoclopramide HCl [Reglan -] 10 mg PO TIDAC tablet 11/23/18 oxyCODONE SR [Oxycontin] 10 mg PO BID #30 tab.er.12h MDD 2 11/23/18 Apixaban [Eliquis -] 2.5 mg PO BID tablet 11/25/18 Apixaban [Eliquis] 2.5 mg PO BID #30 tablet 11/25/18 REVIEW OF SYSTEMS GENERAL: No fever or chills, denies weakness. HEENT: Dysphagia, solids > liquids. No change in vision. No ear pain or discharge. CARDIOVASCULAR: No chest pain or shortness of breath RESPIRATORY: No cough, wheezing, or hemoptysis. GASTROINTESTINAL: + nausea, vomiting, denies: diarrhea or constipation. GENITOURINARY: No dysuria, frequency, or change in urination. MUSCULOSKELETAL: No joint or muscle swelling or pain. No neck or back pain. SKIN: No rash NEUROLOGIC: No headache, vertigo, loss of consciousness, or change in strength/ sensation. ENDOCRINE: No increased thirst. No abnormal weight change HEMATOLOGIC/LYMPHATIC: No anemia, easy bleeding, or history of blood clots. PHYSICAL EXAMINATION Vital Signs - 24 hr 11/30/18 14:02 Temperature 98.3 F Pulse Rate 89 Respiratory 18 Rate Blood Pressure 116/68 O2 Sat by Pulse 100 Oximetry (%) GENERAL: Awake, alert, and fully oriented, in no acute distress. HEENT: NC/AT, EOMI, PERRLA, No JVD LUNGS: Breath sounds equal, clear to auscultation bilaterally. No wheezes, and no crackles. HEART: Regular rate and rhythm, normal S1 and S2 without murmur, rub or gallop. ABDOMEN: Soft, nontender, not distended, normoactive bowel sounds, no guarding, no rebound, no masses. MUSCULOSKELETAL: Normal range of motion at all joints. No bony deformities or tenderness. No CVA tenderness. NEUROLOGICAL: Normal speech PSYCHIATRIC: Cooperative. Good eye contact. Appropriate mood and affect. SKIN: Warm, dry Laboratory Results - last 24 hr 11/30/18 11/30/18 11/30/18 15:42 15:42 15:42 WBC 4.1 RBC 3.62 L Hgb 11.5 L Hct 35.3 L D MCV 97.4 H MCH 31.8 MCHC 32.7 RDW 22.0 H Plt Count 114 L D MPV 9.3 D Absolute Neuts (auto) 2.8 Neutrophils % 67.8 Lymphocytes % 19.3 Monocytes % 11.4 H Eosinophils % 1.0 Basophils % 0.5 Nucleated RBC % 0 Platelet Estimate Decreased Anisocytosis 2+ Macrocytosis 2+ PT with INR 13.90 H INR 1.18 H PTT (Actin FS) 31.5 Sodium 143 Potassium 3.7 Chloride 108 H Carbon Dioxide 25 Anion Gap 10 BUN 25.3 H Creatinine 1.8 H Est GFR (CKD-EPI)AfAm 42.33 Est GFR (CKD-EPI)NonAf 36.52 Random Glucose 107 H Calcium 9.3 Total Bilirubin 0.8 AST 43 H ALT 27 Alkaline Phosphatase 172 H Total Protein 7.2 Albumin 3.5 Blood Type Antibody Screen 11/30/18 11/30/18 15:42 15:42 WBC RBC Hgb Hct MCV MCH MCHC RDW Plt Count MPV Absolute Neuts (auto) Neutrophils % Lymphocytes % Monocytes % Eosinophils % Basophils % Nucleated RBC % Platelet Estimate Anisocytosis Macrocytosis PT with INR Cancelled INR Cancelled PTT (Actin FS) Sodium Potassium Chloride Carbon Dioxide Anion Gap BUN Creatinine Est GFR (CKD-EPI)AfAm Est GFR (CKD-EPI)NonAf Random Glucose Calcium Total Bilirubin AST ALT Alkaline Phosphatase Total Protein Albumin Blood Type O POSITIVE Antibody Screen Negative ASSESSMENT/PLAN: 73 y/o M with hx CIDP with prior episodes dysphagia, multiple myeloma, colon CA with mets to liver/gallbladder arrived to ED with c/o three days of dysphagia with solids > liquids, consistent with worsening CIDP. #CIDP (chronic inflammatory demyelinating polyneuropathy) # difficulty swallowing due to CIPD #r/o dehydration electrolyte abnormality In ED given fluid bolus given probably dehydration. ED spoke with dr Monaco, recommend admission for IVIG, follow up in AM - NPO for now - Speech consult - ? possibility PEG tube, if needed follow up GI consult - Continue with IV fluids #chronic A-fib, HTN - Continue with Eliquis -Continue with Metoprolol #DM - monitor FSBS - coverage with Novolog sliding scale # GERD - continue with Reglan - Continue wiht omeprazole Problem List - Problem (1) CIDP (chronic inflammatory demyelinating polyneuropathy) Code(s): G61.81 - CHRONIC INFLAMMATORY DEMYELINATING POLYNEURITIS (2) Dysphagia, oropharyngeal phase Code(s): R13.12 - DYSPHAGIA, OROPHARYNGEAL PHASE (3) Prerenal azotemia Code(s): R79.89 - OTHER SPECIFIED ABNORMAL FINDINGS OF BLOOD CHEMISTRY (4) GERD (gastroesophageal reflux disease) Code(s): K21.9 - GASTRO-ESOPHAGEAL REFLUX DISEASE WITHOUT ESOPHAGITIS (5) Diabetes mellitus Code(s): E11.9 - TYPE 2 DIABETES MELLITUS WITHOUT COMPLICATIONS Qualifiers: Diabetes mellitus type: type 2 Diabetes mellitus fci insulin use: without fci use Diabetes mellitus complication status: without complication Qualified Code(s): E11.9 - Type 2 diabetes mellitus without complications (6) HTN (hypertension) Code(s): I10 - ESSENTIAL (PRIMARY) HYPERTENSION Qualifiers: Hypertension type: unspecified Qualified Code(s): I10 - Essential (primary ) hypertension (7) Multiple myeloma Code(s): C90.00 - MULTIPLE MYELOMA NOT HAVING ACHIEVED REMISSION Qualifiers: Multiple myeloma remission status: unspecified Qualified Code(s): C90.00 - Multiple myeloma not having achieved remission (8) Paroxysmal atrial fibrillation Code(s): I48.0 - PAROXYSMAL ATRIAL FIBRILLATION Visit type - Emergency Visit Emergency Visit: Yes ED Registration Date: 11/30/18 Care time: The patient presented to the Emergency Department on the above date and was hospitalized for further evaluation of their emergent condition. - New Patient This patient is new to me today: Yes Date on this admission: 11/30/18 - Critical Care Critical Care patient: No
[2018-11-30] MEDS ORDERED: GABAPENTIN 400 MG CAPSULE (FP) PO SCH (22:00)
[2018-11-30] MEDS ORDERED: oxyCODONE HCL 10 MG SUSTAINED ACTING TABLET PO SCH (22:00)
[2018-11-30] MEDS ORDERED: APIXABAN 2.5 MG TABLET PO SCH (22:00)
[2018-11-30] MEDS ORDERED: METOPROLOL TARTRATE 25 MG TABLET (FP) PO SCH (22:00)
[2018-11-30] MEDS ORDERED: oxyCODONE HCL 10 MG SUSTAINED ACTING TABLET ONE (22:38)
[2018-11-30] MEDS ORDERED: METOPROLOL TARTRATE 25 MG TABLET (FP) ONE (22:38)
[2018-11-30] MEDS ORDERED: GABAPENTIN 100 MG CAPSULE (FP) ONE (22:38)
[2018-11-30] MEDS ORDERED: APIXABAN 5 MG TABLET PO ONE (22:38)
[2018-12-01] MEDS ORDERED: SODIUM CHLORIDE 1,000 ML IV SCH (00:15)
[2018-12-01] MEDS ORDERED: METOCLOPRAMIDE HCL 10 MG TABLET (FP) PO SCH (07:00)
[2018-12-01] MEDS ORDERED: INSULIN SLIDING SCALE (NOVOLOG) 1 VIAL SQ SCH ×2 (07:00→16:30)
[2018-12-01] MEDS ORDERED: PANTOPRAZOLE 20 MG TABLET (FP) PO SCH (07:00)
[2018-12-01] MEDS: INSULIN SLIDING SCALE (NOVOLOG) 1 VIAL SQ SCH ×2 (08:51→16:47)
[2018-12-01] MEDS ORDERED: PATIENT'S OWN MEDICATION (NON-FORMULARY) (Omeprazole 20 MG) PO SCH (10:00)
[2018-12-01] MEDS ORDERED: HEPARIN NA (PORCINE) 5,000 UNITS/ML 1ML VIAL SQ SCH (10:00)
[2018-12-01] MEDS ORDERED: DRONABINOL 2.5 MG CAPSULE PO SCH (10:00)
[2018-12-01] MEDS ORDERED: ALLOPURINOL 300 MG TABLET (FP) PO SCH (10:00)
--- NOTE | 2018-12-01 10:51 | CONSULT ---
Admitting History and Physical - Admission History of Present Illness: Pt well known to me from previous admissions with symptoms of responsive gagging /heaving following PO intake. Pt was scoped in past by GI, during last EGD, Schatzki ring was found and disrupted with biopsies and dilation to 20mm with a balloon. PEG was inserted in June 2017 due to inability to accept sufficient food/ liquid without heaving. Cynthia/pharyngeal dysphagia was not identified. At that time, he able to eat fairly well at [facility],and PEG was removed. Unfortunately heaving resumed. He was sent back to me for an out pt MBS on 06/04/17.Oral/pharyngeal/esophageal swallow was WNL, although, study was limited with pt beginning to cough then heave, after second trial sip of Barium. Upon my evaluation of the oral cavity on that day, there was a thick white coating on pt's tongue and buccal cavity patches c/w candidiasis. Pt was treated for Loki at [facility]. Last seen by me November 12, 2018 after prolonged hospitalization,(admitted 09/14/18 ) unable to tolerate solids, resulting in heaving, vomiting. Improved to the point of tolerating sufficient liquid supplements (Ensure Enlive 3 x'x daily) by mouth to be able to be d/c'd to [facility]. Pt refused re-insertion of PEG at that time. Pt also admitted 10/22-11/25: PMD-impression: recurrent MRSA bacteremia Infected hepatic mass? Renal insufficiency metastatic colon cancer Anemia ONC-Impression: MRSA bacteremia Colon ca Liver mets- s/p ablation Myeloma - s/p transplant Anemia CKD/ANA DM Limited PO tolerance. PEG was not placed during that hospitalization, presumably pt refused? Pt now admitted for "failure to thrive" from [facility]. Diet orders at [facility] were Reg diet,thin liquids,Mighty shake TID,Ensure Plus 4 times daily. Pt admitted for possible PEJ. 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), GERD, Other (Schatzki ring dilated 04/30/17) Hepatobiliary: Yes: Other (colon cancer metastases, fatty liver) Heme/Onc: Yes: Anemia, Cancer (Multiple myeloma) Infectious Disease: Yes: C-Diff, MRSA (CVP port) Psych: Yes: Addictions (recovering alcoholic since 1982), Depression Musculoskeletal: Yes: Chronic low back pain, Osteoarthritis, Other (h/o steroid induced myositis) Rheumatology: Yes: Gout Endocrine: Yes: Diabetes Mellitus - Past Surgical History Past Surgical History: Yes: Arthrosocopy (left knee), Cataract Removal ( bilateral), Colectomy (extended right hemicolectomy for transverse colon cancer with umbilical hernia repair& MARY ANNE 12/06/17- Dr Ribeiro ), Colonoscopy, Hernia Repair (umbilical hernia repair with right hemicolectomy), Tonsillectomy, Upper Endoscopy - Smoking History Smoking history: Former smoker Have you smoked in the past 12 months: No If you are a former smoker, when did you quit?: 1975 - Alcohol/Substance Use Hx Alcohol Use: No History of Substance Use: reports: None - Social History ADL: Independent 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 History of Recent Travel: No History - Admission Reason For Visit: DYSPHAGIA,CHRONIC INFLAMITORY DEMYELATING POLYNEUR - Diagnostics X-ray: Report Reviewed - General Mental Status: Alert and Oriented, Awake and Alert, Able to Follow Commands Attention: Intact Ability to Follow Directions: Excellent Head/Neck Control: WFL - Hearing Hearing: Functional Speech Evaluation - Communication Primary Language: MAURITANIAN Communication: Yes: Within Normal Limits Oral Expression Ability: Yes: No Impairment - Speech Production Able to Make Needs Known: Yes: WNL Intelligibility: Yes: WNL - Speech Characteristics Voice Loudness: Normal Voice Pitch: Yes: Normal Voice Phonatory-based Quality: Yes: Normal Speech Pattern: Normal Speech Clarity: < 100% Nasal Resonance: Normal Articulation: Yes: Precise - Language/Auditory Comprehension Follows: Yes: 2 Stage Simple Commands Observation: Comprehends Conversational Speech: Yes - Language/Verbal Expression Able to Respond to Simple Queries: Yes: WNL Able to Communicate Wants and Needs: Yes: WNL Functional Communication Status: Yes: WNL - Swallow Evaluation/Bedside Assessment Current Nutritional Intake: NPO Oral Secretions: Yes: WFL (very slight white spots on tongue, none on palate/ buccal cavity) Dentition: Yes: Adequate Facial Symmetry at Rest: Symmetrical Facial Symmetry on Retraction: Symmetrical Facial Movement: Controlled Against Resistance Opening: Normal Against Resistance Closing: Normal Pucker Lips: Normal Smile: Normal Lingual Movement: Normal, Symmetric Lingual Speed of Movement: Normal Lingual Movement Strgth Against Opposition: Normal Lingual Movement Characteristics: Normal Velopharyngeal Movement: Normal Laryngeal Elevation: WFL Laryngeal Movement: Able to Palpate Rate of Intake: WFL Labial Seal: WFL A-P Transit: WFL Timing of Swallow: WFL Coughing/Throat Clear: Yes (After sip of water, starts coughing followed by extensive heaving) Recommendations - Speech Evaluation, Impression/Plan Impression: After sip of water, starts coughing followed by extensive heaving. Oral-Pharyngeal swallowing seems intact. Esophageal dysphagia. No clear thrush. Previous tx for loki did not result in return of functional swallow. Pt has agreed to [facility]. - Dysphagia Impressions/Plan Swallowing Skills: Impaired Dysphagia Impressions: Profound Impairment *Silent aspiration: cannot be R/O at bedside Recommendations: GI Consult (PEJ insertion), Other (No PO medication) - Recommendations Diet Consistency: NPO Liquids: NPO
--- NOTE | 2018-12-01 11:08 | EKG ---
Test Reason : Blood Pressure : / mmHG Vent. Rate : 095 BPM Atrial Rate : 095 BPM P-R Int : 158 ms QRS Dur : 096 ms QT Int : 368 ms P-R-T Axes : 049 002 068 degrees QTc Int : 462 ms SINUS RHYTHM WITH PREMATURE ATRIAL COMPLEXES WHEN COMPARED WITH ECG OF 21-OCT-2018 18:02, PREMATURE ATRIAL COMPLEXES ARE NOW PRESENT Confirmed by VENKAT ARANDA MD ([id number]) on 12/01/2018 11:07:21 AM Referred By: Confirmed By:VENKAT ARANDA MD
--- NOTE | 2018-12-01 12:12 | CONSULT ---
Consult - text type - Consultation Consultation Note: NEUROLOGY CONSULT GREATLY APPRECIATED: Events reviewed and discussed with RN. Speech and Swallow report read. This 72yo RH m man with h/o is well-known to me for Rx of migraines, RLS, and CIDP, previously complicated by reversible dysphagia W/U revealed MUGUS and bone marrow biopsy showed Multiple myeloma. Now has second primary colonic CA, s/p resection but known liver mets. S/P chemo. Received IVIG September 08 and feels it is only effective for approximately 8 weeks. Now returns with difficult and painful swallowing, described as "dry heaving." Previous episodes have lead to consideration of parenteral feeding but was never required except transient NG feeds. MIO: No evidence of external head trauma. Oropharynx with white plaques. NEURO: Awake, alert, recognizes me. [facility],12/01/18. Speech fluent CN II-XII: Normal including rapid tongue movements and strength. Motor: No drift. Arms and proximal legs have normal strength. Toe dorsiflexion 3/5 on R. Normal on L. Areflexic. Plantars silent. Coord: No FTN dystaxia. Mild rhythmic sustention tremor Left. Min cogwheeling on left Sensory: Decreased vib to ankles. Proprioception intact. IMP: Moderately severe, predominantly distal, sensorimotor peripheral neuropathy c/w CIDP. Recurrent dysphagia with patient overdue for IVIg Plan: Resume IVIG 70 grams over 4 hours for 2 consecutive days (total 140 grams ) R/O Thrush esophagitis or treat empirically Mobilize OO Bed to chair. PT. Feed patient only seated upright and observed. Thank you very much, Shahriar Monaco MD
[2018-12-01] MEDS ORDERED: ACETAMINOPHEN 325 MG TABLET (FP) PO PRN (15:33)
--- NOTE | 2018-12-01 15:41 | PN ---
Progress Note (short form) - Note Progress Note: pt seen/ examined well known to me from recent admissions admitted again for difficulty swallowing neuro/ swallow consults noted awake/ comfortable denies pain Vital Signs Temp 97.9 F 12/01/18 14:59 Pulse 76 12/01/18 14:59 Resp 20 12/01/18 14:59 BP 121/74 12/01/18 14:59 Pulse Ox 98 12/01/18 10:55 Intake & Output 11/30/18 12/01/18 12/01/18 23:59 11:59 23:59 Weight 180 lb 176 lb 3.2 oz Other: Voiding Method Toilet Urinal Bowel Movement Yes # Bowel Movements 1 Height 5 ft 9 in 5 ft 9 in Body Mass Index (BMI) 26.6 26.0 Weight Measurement Method Standing Scale Weight Measurement Method Est/Stated by Patient Active Medications Acetaminophen (Tylenol -) 325 mg PO QID PRN PRN Reason: PAIN Apixaban (Eliquis -) 2.5 mg PO BID JAMIE Doxycycline Hyclate (Vibramycin -) 100 mg PO BID@1000,1800 JAMIE Sodium Chloride (Normal Saline -) 1,000 mls @ 75 mls/hr IV ASDIR JAMIE Last Admin: 12/01/18 02:00 Dose: 75 mls/hr Insulin Aspart (Novolog Vial Sliding Scale -) 0 vial SQ BIDAC JAMIE; Protocol Last Admin: 12/01/18 08:51 Dose: Not Given Insulin Aspart (Novolog Vial Sliding Scale -) 1 vial SQ ACHS JAMIE; Protocol Non-Formulary Medication (Cyanocobalamin (Vitamin B-12) [Vitamin B12]) 2,500 mcg PO DAILY [facility] Non-Formulary Medication (Nystatin [Nystatin]) 1 each MC DAILY [facility] Non-Formulary Medication (Zinc Oxide 20% Topical Oint) 454 gm NR DAILY JAMIE CBC, BMP 11/30/18 15:42 11/30/18 15:42 Physical Exam awake/ comfortable lungs- clear cvs- s1, s2 rrr bd - soft ext- no edema neuro- aox3 a/p discussed continue present care npo for now -- except meds fluids ivig per neuro gi consults meds orders written will follow Problem List - Problems (1) CIDP (chronic inflammatory demyelinating polyneuropathy) Code(s): G61.81 - CHRONIC INFLAMMATORY DEMYELINATING POLYNEURITIS (2) Dysphagia Code(s): R13.10 - DYSPHAGIA, UNSPECIFIED Qualifiers: Dysphagia type: unspecified Qualified Code(s): R13.10 - Dysphagia, unspecified (3) GERD (gastroesophageal reflux disease) Code(s): K21.9 - GASTRO-ESOPHAGEAL REFLUX DISEASE WITHOUT ESOPHAGITIS (4) Anemia Code(s): D64.9 - ANEMIA, UNSPECIFIED Qualifiers: Anemia type: unspecified type Qualified Code(s): D64.9 - Anemia, unspecified (5) Atrial fibrillation Code(s): I48.91 - UNSPECIFIED ATRIAL FIBRILLATION Qualifiers: Atrial fibrillation type: unspecified Qualified Code(s): I48.91 - Unspecified atrial fibrillation (6) CAD (coronary artery disease) Code(s): I25.10 - ATHSCL HEART DISEASE OF [place] CORONARY ARTERY W/O ANG PCTRS Qualifiers: Coronary Disease-Associated Artery/Lesion type: [place] artery [place] vs. transplanted heart: [place] heart Associated angina: without angina Qualified Code(s): I25.10 - Atherosclerotic heart disease of [place] coronary artery without angina pectoris (7) Colon cancer metastasized to liver Code(s): C18.9 - MALIGNANT NEOPLASM OF COLON, UNSPECIFIED; C78.7 - SECONDARY MALIG NEOPLASM OF LIVER AND INTRAHEPATIC BILE DUCT (8) Diabetes mellitus Code(s): E11.9 - TYPE 2 DIABETES MELLITUS WITHOUT COMPLICATIONS Qualifiers: Diabetes mellitus type: type 2 Diabetes mellitus detention insulin use: without detention use Diabetes mellitus complication status: without complication Qualified Code(s): E11.9 - Type 2 diabetes mellitus without complications (9) Multiple myeloma Code(s): C90.00 - MULTIPLE MYELOMA NOT HAVING ACHIEVED REMISSION Qualifiers: Multiple myeloma remission status: unspecified Qualified Code(s): C90.00 - Multiple myeloma not having achieved remission
[2018-12-01] MEDS ORDERED: DEXTROSE 5%-0.45% SALINE 1,000 ML IV SCH (16:15)
[2018-12-01] MEDS: DOXYCYCLINE HYCLATE 100 MG CAPSULE PO SCH (17:10)
[2018-12-01] MEDS: IMMUNE GLOBULIN IVPB SCH (21:16)
[2018-12-01] MEDS: [UNRECOGNIZED DRUG - OTHER] IVPB SCH (21:16)
[2018-12-01] MEDS: APIXABAN 5 MG TABLET PO SCH (21:47)
[2018-12-01] MEDS ORDERED: APIXABAN 2.5 MG TABLET PO SCH (22:00)
--- NOTE | 2018-12-01 22:56 | CON.GI ---
Consult Consult Specialty:: Gastroenterology Referred by:: Dr. Kristal Cannon Reason for Consultation:: dysphagia - History of Present Illness Chief Complaint: dysphagia History of Present Illness: 73M well known to me from numerous previous admissions many due to the inability to swallow. 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 More recently I have suspected the he has a paraneoplastic autonomic neuropathy causing gastroparesis. He has advanced colon cancer with a large necrotic liver metastasis and was able to tolerate only one round of chemotherapy when he developed MRSA line sepsis. He refused G tube insertion during his last admission after he had opted for IR insertion of a G tube. I did order Marinol during that admission and he was able to tolerate enough supplements to be discharged to [facility]. He is now unable to swallow anything other than his saliva. Please refer to my previous consultations for more details. 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), GERD, Other (Schatzki ring dilated 04/30/17) Hepatobiliary: Yes: Other (colon cancer metastases, fatty liver) Heme/Onc: Yes: Anemia Infectious Disease: Yes: C-Diff, MRSA (CVP port) Psych: Yes: Addictions (recovering alcoholic since 1982), Depression Musculoskeletal: Yes: Chronic low back pain, Osteoarthritis, Other (h/o steroid induced myositis) Rheumatology: Yes: Gout Endocrine: Yes: Diabetes Mellitus Additional Medical History: glaucoma with decreased vision and need for surgeryleft eye - Past Surgical History Past Surgical History: Yes: Arthrosocopy (left knee), Cataract Removal ( bilateral), Colectomy (extended right hemicolectomy for transverse colon cancer with umbilical hernia repair& MARY ANNE 12/06/17- Dr Ribeiro ), Colonoscopy, Hernia Repair (umbilical hernia repair with right hemicolectomy), Tonsillectomy, Upper Endoscopy - Alcohol/Substance Use Hx Alcohol Use: No History of Substance Use: reports: None - Smoking History Smoking history: Former smoker Have you smoked in the past 12 months: No If you are a former smoker, when did you quit?: 1975 - Social History Usual Living Arrangement: Longterm (Currently residing in [facility]) ADL: Independent 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 Place of : [facility] History of Recent Travel: No Home Medications - Allergies Allergies/Adverse Reactions: Allergies Allergy/AdvReac Type Severity Reaction Status Date / Time No Known Allergies Allergy Verified 11/30/18 15:19 - Home Medications Home Medications: Ambulatory Orders Gabapentin 400 mg PO BID 10/04/16 Allopurinol 300 mg PO DAILY 10/21/17 Cyanocobalamin (Vitamin B-12) [Vitamin B12] 2,500 mcg PO DAILY 10/21/17 oxyCODONE HCL [Roxicodone -] 10 mg PO Q4H PRN #30 tablet MDD 4 10/11/18 Metoprolol Tartrate 12.5 mg PO BID #60 tablet 10/13/18 Acetaminophen 325 mg PO QID PRN 10/21/18 Nystatin 1 each MC DAILY 10/21/18 Omeprazole 20 mg PO DAILY 10/21/18 Zinc Oxide 20% Topical Oint 454 gm NR DAILY 10/21/18 Dronabinol [Marinol -] 2.5 mg PO DAILY capsule MDD 1 11/11/18 Doxycycline Hyclate [Vibramycin -] 100 mg PO BID@1000,1800 capsule 11/23/18 Guaifenesin [Robitussin -] 10 ml PO Q4H PRN cup 11/23/18 Insulin Sliding Scale [Novolog Vial Sliding Scale -] 1 vial SQ ACHS units 11/23 Metoclopramide HCl [Reglan -] 10 mg PO TIDAC tablet 11/23/18 oxyCODONE SR [Oxycontin] 10 mg PO BID #30 tab.er.12h MDD 2 11/23/18 Apixaban [Eliquis -] 2.5 mg PO BID tablet 11/25/18 Apixaban [Eliquis] 2.5 mg PO BID #30 tablet 11/25/18 Family Disease History - Family Disease History Family Disease History: Other: Father (: 68: lung Ca), Mother (: 60's: myeloid leukemia ), Brother (1, : 65: colon cancer), Son (1, healthy), Daughter (1 with SLE) Physical Exam-GI Vital Signs: Vital Signs Temperature 98.2 F 12/01/18 18:28 Pulse Rate 84 12/01/18 18:28 Respiratory Rate 20 12/01/18 18:28 Blood Pressure 128/65 12/01/18 18:28 O2 Sat by Pulse Oximetry (%) 98 12/01/18 10:55 CBC,CMP WBC 4.1 K/mm3 (4.0-10.0) 11/30/18 15:42 RBC 3.62 M/mm3 (4.00-5.60) L 11/30/18 15:42 Hgb 11.5 GM/dL (11.7-16.9) L 11/30/18 15:42 Hct 35.3 % (35.4-49) L D 11/30/18 15:42 MCV 97.4 fl (80-96) H 11/30/18 15:42 MCH 31.8 pg (25.7-33.7) 11/30/18 15:42 MCHC 32.7 g/dl (32.0-35.9) 11/30/18 15:42 RDW 22.0 % (11.9-15.9) H 11/30/18 15:42 Plt Count 114 K/MM3 (134-434) L D 11/30/18 15:42 MPV 9.3 fl (7.5-11.1) D 11/30/18 15:42 Absolute Neuts (auto) 2.8 K/mm3 (1.5-8.0) 11/30/18 15:42 Neutrophils % 67.8 % (42.8-82.8) 11/30/18 15:42 Lymphocytes % 19.3 % (8-40) 11/30/18 15:42 Monocytes % 11.4 % (3.8-10.2) H 11/30/18 15:42 Eosinophils % 1.0 % (0-4.5) 11/30/18 15:42 Basophils % 0.5 % (0-2.0) 11/30/18 15:42 Nucleated RBC % 0 % (0-0) 11/30/18 15:42 Platelet Estimate Decreased 11/30/18 15:42 Anisocytosis 2+ 11/30/18 15:42 Macrocytosis 2+ 11/30/18 15:42 Sodium 143 mmol/L (136-145) 11/30/18 15:42 Potassium 3.7 mmol/L (3.5-5.1) 11/30/18 15:42 Chloride 108 mmol/L (98-107) H 11/30/18 15:42 Carbon Dioxide 25 mmol/L (21-32) 11/30/18 15:42 Anion Gap 10 MMOL/L (8-16) 11/30/18 15:42 BUN 25.3 mg/dL (7-18) H 11/30/18 15:42 Creatinine 1.8 mg/dL (0.55-1.3) H 11/30/18 15:42 Est GFR (CKD-EPI)AfAm 42.33 11/30/18 15:42 Est GFR (CKD-EPI)NonAf 36.52 11/30/18 15:42 POC Glucometer 94 UNITS (80-120) 12/01/18 16:20 Random Glucose 107 mg/dL (74-106) H 11/30/18 15:42 Calcium 9.3 mg/dL (8.5-10.1) 11/30/18 15:42 Total Bilirubin 0.8 mg/dL (0.2-1) 11/30/18 15:42 AST 43 U/L (15-37) H 11/30/18 15:42 ALT 27 U/L (13-61) 11/30/18 15:42 Alkaline Phosphatase 172 U/L (45-117) H 11/30/18 15:42 Total Protein 7.2 g/dl (6.4-8.2) 11/30/18 15:42 Albumin 3.5 g/dl (3.4-5.0) 11/30/18 15:42 Current Medications Generic Name Dose Route Start Last Admin Trade Name Freq PRN Reason Stop Dose Admin Acetaminophen 325 mg 12/01/18 15:33 Tylenol - PO QID PRN PAIN Apixaban 5 mg 12/01/18 22:00 12/01/18 21:47 Eliquis - PO Not Given BID JAMIE Cyanocobalamin 2,500 mcg 12/02/18 10:00 Vitamin B12 - PO DAILY JAMIE Doxycycline Hyclate 100 mg 12/01/18 18:00 12/01/18 17:10 Vibramycin - PO Not Given BID@1000,1800 JAMIE Dextrose/Sodium Chloride 1,000 mls @ 83 mls/hr 12/01/18 16:15 12/01/18 17:08 D5-1/2ns - IV 83 mls/hr ASDIR JAMIE Administration Immune Globulin 70 gm in 700 mls @ 24 mls/hr 12/01/18 19:45 12/01/18 21:16 Privigen 10% Vial IVPB 12/03/18 19:44 24 mls/hr Q24H JAMIE Administration Insulin Aspart 0 vial 12/01/18 07:00 12/01/18 16:47 Novolog Vial Sliding Scale - SQ Not Given BIDAC JAMIE Protocol Multi-Ingredient Ointment 1 applic 12/02/18 10:00 Zinc Oxide TP DAILY JAMIE Nystatin 1 applic 12/02/18 10:00 Nystop Powder - TP DAILY JAMIE Constitutional: Yes: Calm Eyes: Yes: Conjunctiva Clear HENT: Yes: Atraumatic Neck: Yes: Trachea Midline Cardiovascular: Yes: Regular Rate and Rhythm Respiratory: Yes: CTA Bilaterally Gastrointestinal Inspection: Yes: Scars (healed laparoscopic and PEG site incisions) ...Auscultate: Yes: Hypoactive Bowel Sounds ...Palpate: Yes: Soft, Other (nontender) ...Rectal Exam: Yes: Deferred (not pertinent) Labs: CBC, BMP 11/30/18 15:42 11/30/18 15:42 INR, PTT INR 1.18 (0.83-1.09) H 11/30/18 15:42 Problem List - Problems (1) Dysphagia Assessment/Plan: Suspect his dysphagia and gastroparesis are due to a paraneoplastic neuropathy Code(s): R13.10 - DYSPHAGIA, UNSPECIFIED Qualifiers: Dysphagia type: esophageal phase Qualified Code(s): R13.10 - Dysphagia, unspecified (2) Colon cancer metastasized to liver Code(s): C18.9 - MALIGNANT NEOPLASM OF COLON, UNSPECIFIED; C78.7 - SECONDARY MALIG NEOPLASM OF LIVER AND INTRAHEPATIC BILE DUCT (3) CIDP (chronic inflammatory demyelinating polyneuropathy) Code(s): G61.81 - CHRONIC INFLAMMATORY DEMYELINATING POLYNEURITIS (4) GERD (gastroesophageal reflux disease) Code(s): K21.9 - GASTRO-ESOPHAGEAL REFLUX DISEASE WITHOUT ESOPHAGITIS (5) Atrial fibrillation Code(s): I48.91 - UNSPECIFIED ATRIAL FIBRILLATION Qualifiers: Atrial fibrillation type: unspecified Qualified Code(s): I48.91 - Unspecified atrial fibrillation (6) C. difficile diarrhea Code(s): A04.72 - ENTEROCOLITIS D/T CLOSTRIDIUM DIFFICILE, NOT SPCF RECUR (7) CAD (coronary artery disease) Code(s): I25.10 - ATHSCL HEART DISEASE OF [place] CORONARY ARTERY W/O ANG PCTRS Qualifiers: Coronary Disease-Associated Artery/Lesion type: [place] artery [place] vs. transplanted heart: [place] heart Associated angina: without angina Qualified Code(s): I25.10 - Atherosclerotic heart disease of [place] coronary artery without angina pectoris (8) Diabetes mellitus Code(s): E11.9 - TYPE 2 DIABETES MELLITUS WITHOUT COMPLICATIONS Qualifiers: Diabetes mellitus type: type 2 Diabetes mellitus terminal clerk insulin use: without senior living use Diabetes mellitus complication status: without complication Qualified Code(s): E11.9 - Type 2 diabetes mellitus without complications (9) Failure to thrive Code(s): VTM4883 - Qualifiers: Failure to thrive age range: in adult Qualified Code(s): R62.7 - Adult failure to thrive (10) Family history of malignant neoplasm of colon in first degree relative diagnosed when younger than 60 years of age Code(s): Z80.0 - FAMILY HISTORY OF MALIGNANT NEOPLASM OF DIGESTIVE ORGANS (11) Fatty liver Code(s): K76.0 - FATTY (CHANGE OF) LIVER, NOT ELSEWHERE CLASSIFIED (12) Gout Code(s): M10.9 - GOUT, UNSPECIFIED (13) H/O gastrostomy Code(s): Z93.4 - OTHER ARTIFICIAL OPENINGS OF GASTROINTESTINAL TRACT STATUS (14) MRSA (methicillin resistant staph aureus) culture positive Code(s): Z22.322 - CARRIER OR SUSPECTED CARRIER OF METHICILLIN RESIS STAPH (15) Multiple myeloma Code(s): C90.00 - MULTIPLE MYELOMA NOT HAVING ACHIEVED REMISSION Qualifiers: Multiple myeloma remission status: unspecified Qualified Code(s): C90.00 - Multiple myeloma not having achieved remission (16) Paroxysmal atrial fibrillation Code(s): I48.0 - PAROXYSMAL ATRIAL FIBRILLATION (17) Schatzki's ring of distal esophagus Code(s): K22.2 - ESOPHAGEAL OBSTRUCTION Assessment/Plan Assessment: - Suspect his dysphagia and gastroparesis are due to a paraneoplastic neuropathy. Michael wants another try of IVIG before considering a G tube insertion - Advanced metastatic colon cancer and too weak to have chemotherapy - GERD with Schatzki ring is not clinically significant since his dilation Plan: -- Await results if IVIG trial -- Restart marinol when he can swallow this -- G tube insertion when Michael consents. This can be done by IR to avert putting Michael under anesthesia. A soft feeding tube can be inserted in the interim. Michael also defers this until the IVIG is tried
[2018-12-02] MEDS: INSULIN SLIDING SCALE (NOVOLOG) 1 VIAL SQ SCH ×2 (06:24→19:59)
[2018-12-02 07:35] LABS: HEMATOCRIT 24.6 % (35.4-49); HEMOGLOBIN 8.2 GM/dL (11.7-16.9); MCH 32.2 pg (25.7-33.7); MCHC 33.5 g/dl (32.0-35.9); MEAN PLT VOLUME 8.4 fl (7.5-11.1); PLATELET COUNT 69 K/MM3 (134-434); RBC 2.56 M/mm3 (4.00-5.60); RDW 21.5 % (11.9-15.9)
[2018-12-02 08:09] LABS: ALBUMIN 2.5 g/dl (3.4-5.0); BILIRUBIN,TOTAL 0.9 mg/dL (0.2-1); BLOOD UREA NITROGEN 20.8 mg/dL (7-18); CALCIUM 7.9 mg/dL (8.5-10.1); CREATININE 1.4 mg/dL (0.55-1.3); TOT PROT 6.7 g/dl (6.4-8.2)
[2018-12-02] MEDS: APIXABAN 5 MG TABLET PO SCH ×2 (10:01→21:23)
[2018-12-02] MEDS: DOXYCYCLINE HYCLATE 100 MG CAPSULE PO SCH ×2 (10:01→18:59)
[2018-12-02] MEDS: DRONABINOL 5 MG CAPSULE PO SCH (10:01)
[2018-12-02] MEDS: CYANOCOBALAMIN 1,000 MCG TABLET (FP) PO SCH (10:02)
--- NOTE | 2018-12-02 11:52 | EKG ---
Test Reason : Blood Pressure : / mmHG Vent. Rate : 094 BPM Atrial Rate : 094 BPM P-R Int : 156 ms QRS Dur : 094 ms QT Int : 358 ms P-R-T Axes : 042 000 069 degrees QTc Int : 447 ms NORMAL SINUS RHYTHM NONSPECIFIC T WAVE ABNORMALITY ABNORMAL ECG WHEN COMPARED WITH ECG OF 30-NOV-2018 17:54, PREMATURE ATRIAL COMPLEXES ARE NO LONGER PRESENT Confirmed by VENKAT ARANDA MD ([id number]) on 12/02/2018 11:52:27 AM Referred By: Confirmed By:VENKAT ARANDA MD
--- NOTE | 2018-12-02 12:01 | PN ---
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
--- NOTE | 2018-12-02 12:04 | PN ---
Progress Note (short form) - Note Progress Note: NEUROLOGY PROGRESS: Events reviewed and discussed with RN. at bedside. Pt s/p initial infusion of IVIG (70 grams) and awaiting second dose. Currently NPO, coughing on small sips H20. Patient wants to defer tube until after full IVIG infusion (and observation while awaiting efficacy). Previously did well on soups and Ensure. NEURO: Awake, alert, oriented x 3. Tongue JAE's and strength are normal. Gag present but reduced. L cogwheeling with reinforcement. 4-/5 R toe extensor strength. Proprioception intact. Reduced vibration to ankles. 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 Dysphagia Suggest: Continue IVIG 70 grams today to equal 140 grams over 2 days Then suggest trial of foods patient has previously done well on. Continue IVIG at regular intervals every 8 weeks PT eval for gait safety. Mobilize pt OOB to chair for assisted meals. Thank you very much, Shahriar Monaco MD
--- NOTE | 2018-12-02 14:18 | PN ---
Progress Note (short form) - Note Progress Note: comfortable no new issues at bedside. neuro f/u noted getting ivig Vital Signs Temp 98.2 F 12/02/18 14:05 Pulse 66 12/02/18 14:05 Resp 20 12/02/18 14:05 BP 109/70 12/02/18 14:05 Pulse Ox 96 12/02/18 09:00 Intake & Output 12/01/18 12/02/18 12/02/18 23:59 11:59 23:59 Intake Total 1299 747 Balance 1299 747 Intake: IV 549 747 D5-1/2Ns - 1,000 ml @ 83 549 747 mls/hr IV ASDIR [facility] Rx#: [id number] IVPB 750 0 Other: Voiding Method Urinal Urinal # Unmeasured Voids Void 3 200 Bowel Movement Yes Yes No # Bowel Movements 1 1 Active Medications Acetaminophen (Tylenol -) 325 mg PO QID PRN PRN Reason: PAIN Apixaban (Eliquis -) 5 mg PO BID [facility] Last Admin: 12/02/18 10:01 Dose: Not Given Cyanocobalamin (Vitamin B12 -) 2,500 mcg PO DAILY [facility] Last Admin: 12/02/18 10:02 Dose: Not Given Doxycycline Hyclate (Vibramycin -) 100 mg PO BID@1000,1800 [facility] Last Admin: 12/02/18 10:01 Dose: Not Given Dronabinol (Marinol -) 5 mg PO DAILY [facility] Last Admin: 12/02/18 10:01 Dose: Not Given Fat Emulsion Intravenous (Intralipid -) 250 ml IV DAILY@2200 [facility] Immune Globulin (Privigen 10% Vial) 70 gm in 700 mls @ 24 mls/hr IVPB Q24H [facility] Stop: 12/03/18 19:44 Last Admin: 12/01/18 21:16 Dose: 24 mls/hr Potassium Chloride (Potassium Chloride 10 Meq Premix Ivpb -) 10 meq in 100 mls @ 100 mls/hr IVPB Q60M [facility] Stop: 12/02/18 17:14 Amino Acids (Clinimix -) 1,000 mls @ 84 mls/hr IV Q12H [facility] Insulin Aspart (Novolog Vial Sliding Scale -) 0 vial SQ BIDAC [facility]; Protocol Last Admin: 12/02/18 06:24 Dose: Not Given Multi-Ingredient Ointment (Zinc Oxide) 1 applic TP DAILY [facility] Nystatin (Nystop Powder -) 1 applic TP DAILY [facility] CBC, BMP 12/02/18 06:15 12/02/18 06:15 Physical Exam awake/ comfortable lungs- clear cvs- s1, s2 rrr bd - soft ext- no edema neuro- aox3 a/p discussed continue present care npo for now -- fluids-- change to clinimix ivig per neuro gi consult appreciated will follow Problem List - Problems (1) CIDP (chronic inflammatory demyelinating polyneuropathy) Code(s): G61.81 - CHRONIC INFLAMMATORY DEMYELINATING POLYNEURITIS (2) Dysphagia Code(s): R13.10 - DYSPHAGIA, UNSPECIFIED Qualifiers: Dysphagia type: esophageal phase Qualified Code(s): R13.10 - Dysphagia, unspecified (3) GERD (gastroesophageal reflux disease) Code(s): K21.9 - GASTRO-ESOPHAGEAL REFLUX DISEASE WITHOUT ESOPHAGITIS (4) Anemia Code(s): D64.9 - ANEMIA, UNSPECIFIED Qualifiers: Anemia type: unspecified type Qualified Code(s): D64.9 - Anemia, unspecified (5) Atrial fibrillation Code(s): I48.91 - UNSPECIFIED ATRIAL FIBRILLATION Qualifiers: Atrial fibrillation type: unspecified Qualified Code(s): I48.91 - Unspecified atrial fibrillation (6) CAD (coronary artery disease) Code(s): I25.10 - ATHSCL HEART DISEASE OF [place] CORONARY ARTERY W/O ANG PCTRS Qualifiers: Coronary Disease-Associated Artery/Lesion type: [place] artery [place] vs. transplanted heart: [place] heart Associated angina: without angina Qualified Code(s): I25.10 - Atherosclerotic heart disease of [place] coronary artery without angina pectoris (7) Colon cancer metastasized to liver Code(s): C18.9 - MALIGNANT NEOPLASM OF COLON, UNSPECIFIED; C78.7 - SECONDARY MALIG NEOPLASM OF LIVER AND INTRAHEPATIC BILE DUCT (8) Diabetes mellitus Code(s): E11.9 - TYPE 2 DIABETES MELLITUS WITHOUT COMPLICATIONS Qualifiers: Diabetes mellitus type: type 2 Diabetes mellitus prison insulin use: without prison use Diabetes mellitus complication status: without complication Qualified Code(s): E11.9 - Type 2 diabetes mellitus without complications (9) Multiple myeloma Code(s): C90.00 - MULTIPLE MYELOMA NOT HAVING ACHIEVED REMISSION Qualifiers: Multiple myeloma remission status: unspecified Qualified Code(s): C90.00 - Multiple myeloma not having achieved remission
[2018-12-02 14:37] VITALS: BMI 25.9
[2018-12-02] MEDS: IMMUNE GLOBULIN IVPB SCH (16:06)
[2018-12-02] MEDS: KCL 10 MEQ IVPB 10 MEQ/100 ML INFUS.BAG IVPB SCH ×3 (16:06→18:46)
[2018-12-02] MEDS: [UNRECOGNIZED DRUG - OTHER] IVPB SCH (16:06)
[2018-12-02] MEDS: ZINC OXIDE 20% TOPICAL OINTMENT 30 GM TUBE TP SCH (17:06)
[2018-12-02] MEDS: NYSTATIN POWDER 100,000 UNITS/GM - 15 GM TOPICAL POWDER TP SCH (17:06)
[2018-12-02] MEDS: AMINO ACIDS 4.25%/D5W 1,000 ML IV SCH (17:06)
[2018-12-02] MEDS ORDERED: FAT EMULSIONS 20% 250 ML PREMIX INFUS.BAG IV SCH (22:00)
[2018-12-02] MEDS: FAT EMULSIONS 250 ML IV SCH (22:33)
[2018-12-03] MEDS: INSULIN SLIDING SCALE (NOVOLOG) 1 VIAL SQ SCH ×2 (06:13→17:11)
[2018-12-03] MEDS: AMINO ACIDS 4.25%/D5W 1,000 ML IV SCH ×2 (06:16→17:18)
--- NOTE | 2018-12-03 09:21 | PN ---
Progress Note (short form) - Note Progress Note: Events noted unable to drink fluids/solids no pain Vital Signs - 24 hr 12/02/18 12/02/18 12/02/18 10:00 14:05 17:13 Temperature 98.1 F 98.2 F 98.0 F Pulse Rate 75 66 60 Respiratory 18 20 18 Rate Blood Pressure 109/72 109/70 111/65 O2 Sat by Pulse Oximetry (%) 12/02/18 12/02/18 12/03/18 21:00 22:00 06:18 Temperature 97.9 F 98.1 F Pulse Rate 59 L 57 L Respiratory 18 18 18 Rate Blood Pressure 118/75 104/60 O2 Sat by Pulse 96 Oximetry (%) Current Medications Generic Name Dose Route Start Last Admin Trade Name Freq PRN Reason Stop Dose Admin Acetaminophen 325 mg 12/01/18 15:33 Tylenol - PO QID PRN PAIN Cyanocobalamin 2,500 mcg 12/02/18 10:00 12/02/18 10:02 Vitamin B12 - PO Not Given DAILY [facility] Doxycycline Hyclate 100 mg 12/01/18 18:00 12/02/18 18:59 Vibramycin - PO Not Given BID@1000,1800 [facility] Dronabinol 5 mg 12/02/18 10:00 12/02/18 10:01 Marinol - PO Not Given DAILY [facility] Enoxaparin Sodium 60 mg 12/03/18 09:30 Lovenox - SQ Q12H [facility] Immune Globulin 70 gm in 700 mls @ 24 mls/hr 12/01/18 19:45 12/02/18 16:06 Privigen 10% Vial IVPB 12/03/18 19:44 24 mls/hr Q24H [facility] Administration Amino Acids 1,000 mls @ 84 mls/hr 12/02/18 14:15 12/03/18 06:16 Clinimix - IV 84 mls/hr Q12H [facility] Administration Fat Emulsion Intravenous 250 mls @ 20.833 mls/hr 12/02/18 22:00 12/02/18 22: 33 Intralipid - IV 20.833 mls/hr DAILY@2200 [facility] Administration Insulin Aspart 0 vial 12/01/18 07:00 12/03/18 06:13 Novolog Vial Sliding Scale - SQ Not Given BIDAC [facility] Protocol Multi-Ingredient Ointment 1 applic 12/02/18 10:00 12/02/18 17:06 Zinc Oxide TP 1 applic DAILY [facility] Administration Nystatin 1 applic 12/02/18 10:00 12/02/18 17:06 Nystop Powder - TP 1 applic DAILY [facility] Administration Laboratory Results - last 24 hr 12/02/18 12/03/18 19:37 06:12 POC Glucometer 90 108 Physical Exam awake/ comfortable lungs- clear cvs- s1, s2 rrr bd - soft ext- no edema neuro- aox3 a/p discussed continue present care change eliquis to Lovenox-- reduced dose-- but will also check CBC today for low platelets npo for now -- fluids-- on clinimix ivig per neuro-->completed 2 doses gi consult appreciated will follow Problem List - Problems (1) CIDP (chronic inflammatory demyelinating polyneuropathy) Code(s): G61.81 - CHRONIC INFLAMMATORY DEMYELINATING POLYNEURITIS (2) Dysphagia Code(s): R13.10 - DYSPHAGIA, UNSPECIFIED Qualifiers: Dysphagia type: esophageal phase Qualified Code(s): R13.10 - Dysphagia, unspecified (3) GERD (gastroesophageal reflux disease) Code(s): K21.9 - GASTRO-ESOPHAGEAL REFLUX DISEASE WITHOUT ESOPHAGITIS (4) Anemia Code(s): D64.9 - ANEMIA, UNSPECIFIED Qualifiers: Anemia type: unspecified type Qualified Code(s): D64.9 - Anemia, unspecified (5) Atrial fibrillation Code(s): I48.91 - UNSPECIFIED ATRIAL FIBRILLATION Qualifiers: Atrial fibrillation type: unspecified Qualified Code(s): I48.91 - Unspecified atrial fibrillation
[2018-12-03] MEDS ORDERED: ACETAMINOPHEN 1000 MG/100 ML VIAL (NON FORMULARY) IVPB PRN (10:00)
[2018-12-03 10:13] LABS: BASO % 0.9 % (0-2.0); EOS % 0.8 % (0-4.5); HEMATOCRIT 26.4 % (35.4-49); LYMPH % 25.5 % (8-40); MCH 32.5 pg (25.7-33.7); MEAN CELL VOLUME 95.7 fl (80-96); MONO % 12.2 % (3.8-10.2); NEUT % 60.6 % (42.8-82.8); PLATELET COUNT 68 K/MM3 (134-434); RBC 2.76 M/mm3 (4.00-5.60); RDW 21.5 % (11.9-15.9); WHITE BLOOD COUNT 2.2 K/mm3 (4.0-10.0)
[2018-12-03 10:32] LABS: ALBUMIN 2.5 g/dl (3.4-5.0); BILIRUBIN,TOTAL 0.4 mg/dL (0.2-1); BLOOD UREA NITROGEN 22.8 mg/dL (7-18); CALCIUM 8.2 mg/dL (8.5-10.1); CREATININE 1.3 mg/dL (0.55-1.3); POTASSIUM 3.1 mmol/L (3.5-5.1); TOT PROT 7.6 g/dl (6.4-8.2)
[2018-12-03] MEDS: DRONABINOL 5 MG CAPSULE PO SCH (11:37)
[2018-12-03] MEDS: DOXYCYCLINE HYCLATE 100 MG CAPSULE PO SCH ×2 (11:37→17:13)
[2018-12-03] MEDS: CYANOCOBALAMIN 1,000 MCG TABLET (FP) PO SCH (11:38)
[2018-12-03] MEDS: ENOXAPARIN NA (PORCINE) 60 MG/0.6 ML DISP.SYRIN SQ SCH ×2 (13:51→22:53)
[2018-12-03] MEDS: NYSTATIN POWDER 100,000 UNITS/GM - 15 GM TOPICAL POWDER TP SCH (13:51)
[2018-12-03] MEDS: ZINC OXIDE 20% TOPICAL OINTMENT 30 GM TUBE TP SCH (13:52)
[2018-12-03] MEDS ORDERED: PT OWN MED DRAWER 7, Y5N ONE (22:19)
[2018-12-03] MEDS: FAT EMULSIONS 250 ML IV SCH (22:52)
[2018-12-04] MEDS ORDERED: PT OWN MED DRAWER 7, Y5N ONE ×3 (01:29→22:40)
[2018-12-04] MEDS: AMINO ACIDS 4.25%/D5W 1,000 ML IV SCH (01:56)
[2018-12-04] MEDS: INSULIN SLIDING SCALE (NOVOLOG) 1 VIAL SQ SCH ×2 (07:10→17:38)
[2018-12-04 07:52] LABS: BASO % 0.6 % (0-2.0); EOS % 0.5 % (0-4.5); HEMOGLOBIN 9.5 GM/dL (11.7-16.9); LYMPH % 23.4 % (8-40); MCH 32.1 pg (25.7-33.7); MCHC 33.9 g/dl (32.0-35.9); MEAN CELL VOLUME 94.6 fl (80-96); MEAN PLT VOLUME 8.4 fl (7.5-11.1); MONO % 12.7 % (3.8-10.2); NEUT % 62.8 % (42.8-82.8); PLATELET COUNT 75 K/MM3 (134-434); RBC 2.96 M/mm3 (4.00-5.60); RDW 21.3 % (11.9-15.9); WHITE BLOOD COUNT 2.7 K/mm3 (4.0-10.0)
--- NOTE | 2018-12-04 08:01 | PN ---
Progress Note (short form) - Note Progress Note: Events noted unable to drink fluids/solids no pain Vital Signs - 24 hr Vital Signs - 24 hr 12/03/18 12/04/18 12/04/18 22:00 06:17 09:00 Temperature 97.8 F 98.3 F Pulse Rate 67 81 Respiratory 18 20 20 Rate Blood Pressure 129/58 L 118/69 O2 Sat by Pulse 96 Oximetry (%) 12/04/18 12/04/18 10:00 13:58 Temperature 98.1 F 97.9 F Pulse Rate 91 H 92 H Respiratory 20 20 Rate Blood Pressure 122/77 136/70 O2 Sat by Pulse Oximetry (%) Current Medications Generic Name Dose Route Start Last Admin Trade Name Freq PRN Reason Stop Dose Admin Acetaminophen 325 mg 12/01/18 15:33 Tylenol - PO QID PRN PAIN Acetaminophen 1,000 mg 12/03/18 10:00 Ofirmev Injection - IVPB Q6H PRN FEVER Cyanocobalamin 2,500 mcg 12/02/18 10:00 12/04/18 10:26 Vitamin B12 - PO Not Given DAILY [facility] Enoxaparin Sodium 60 mg 12/03/18 09:45 12/04/18 10:25 Lovenox - SQ 60 mg Q12H [facility] Administration Fat Emulsion Intravenous 250 mls @ 20.833 mls/hr 12/02/18 22:00 12/03/18 22: 52 Intralipid - IV 20.833 mls/hr DAILY@2200 [facility] Administration Potassium Chloride 20 meq/ 1,010 mls @ 84 mls/hr 12/04/18 09:30 12/04/18 11: 43 Amino Acids IVPB 84 mls/hr Q12H [facility] Administration Doxycycline Hyclate 100 mg/ 100 mls @ 100 mls/hr 12/04/18 10:00 12/04/18 10: 25 Dextrose IVPB 100 mls/hr BID [facility] Administration Insulin Aspart 0 vial 12/01/18 07:00 12/04/18 17:38 Novolog Vial Sliding Scale - SQ Not Given BIDAC [facility] Protocol Multi-Ingredient Ointment 1 applic 12/02/18 10:00 12/04/18 10:26 Zinc Oxide TP 1 applic DAILY [facility] Administration Nystatin 1 applic 12/02/18 10:00 12/04/18 10:31 Nystop Powder - TP 1 applic DAILY [facility] Administration Pantoprazole Sodium 40 mg 12/04/18 15:00 12/04/18 15:20 Protonix Iv IVPUSH 40 mg DAILY [facility] Administration Laboratory Results - last 24 hr 12/04/18 12/04/18 12/04/18 06:15 06:15 07:10 WBC 2.7 L RBC 2.96 L Hgb 9.5 L Hct 28.0 L MCV 94.6 MCH 32.1 MCHC 33.9 RDW 21.3 H Plt Count 75 L MPV 8.4 Absolute Neuts (auto) 1.7 Neutrophils % 62.8 Lymphocytes % 23.4 Monocytes % 12.7 H Eosinophils % 0.5 Basophils % 0.6 Nucleated RBC % 0 Hypochromia 0 Platelet Estimate Decreased Polychromasia 0 Poikilocytosis 0 Anisocytosis 2+ Microcytosis 1+ Macrocytosis 0 Sodium 141 Potassium 2.8 L* Chloride 112 H Carbon Dioxide 18 L Anion Gap 11 BUN 22.5 H Creatinine 1.2 Est GFR (CKD-EPI)AfAm 69.11 Est GFR (CKD-EPI)NonAf 59.63 POC Glucometer 121 Random Glucose 113 H Calcium 8.5 Total Bilirubin 0.4 AST 23 ALT 17 Alkaline Phosphatase 114 Total Protein 7.8 Albumin 2.7 L 12/04/18 12/04/18 15:25 17:30 WBC RBC Hgb Hct MCV MCH MCHC RDW Plt Count MPV Absolute Neuts (auto) Neutrophils % Lymphocytes % Monocytes % Eosinophils % Basophils % Nucleated RBC % Hypochromia Platelet Estimate Polychromasia Poikilocytosis Anisocytosis Microcytosis Macrocytosis Sodium 140 Potassium 3.4 L Chloride 112 H Carbon Dioxide 17 L Anion Gap 11 BUN 23.0 H Creatinine 1.2 Est GFR (CKD-EPI)AfAm 69.11 Est GFR (CKD-EPI)NonAf 59.63 POC Glucometer 116 Random Glucose 118 H Calcium 8.8 Total Bilirubin AST ALT Alkaline Phosphatase Total Protein Albumin Physical Exam awake/ comfortable lungs- clear cvs- s1, s2 rrr bd - soft ext- no edema neuro- aox3 a/p discussed continue present care replace potassium npo for now -- discussed about peg tube-- > he is considering it-- he would like to speak with first prior to making a decision fluids-- on clinimix ivig per neuro-->completed 2 doses gi consult appreciated will follow Problem List - Problems (1) CIDP (chronic inflammatory demyelinating polyneuropathy) Code(s): G61.81 - CHRONIC INFLAMMATORY DEMYELINATING POLYNEURITIS (2) Dysphagia Code(s): R13.10 - DYSPHAGIA, UNSPECIFIED Qualifiers: Dysphagia type: esophageal phase Qualified Code(s): R13.10 - Dysphagia, unspecified (3) GERD (gastroesophageal reflux disease) Code(s): K21.9 - GASTRO-ESOPHAGEAL REFLUX DISEASE WITHOUT ESOPHAGITIS (4) Anemia Code(s): D64.9 - ANEMIA, UNSPECIFIED Qualifiers: Anemia type: unspecified type Qualified Code(s): D64.9 - Anemia, unspecified (5) Atrial fibrillation Code(s): I48.91 - UNSPECIFIED ATRIAL FIBRILLATION Qualifiers: Atrial fibrillation type: unspecified Qualified Code(s): I48.91 - Unspecified atrial fibrillation
[2018-12-04 08:39] LABS: ALBUMIN 2.7 g/dl (3.4-5.0); BILIRUBIN,TOTAL 0.4 mg/dL (0.2-1); BLOOD UREA NITROGEN 22.5 mg/dL (7-18); CALCIUM 8.5 mg/dL (8.5-10.1); CREATININE 1.2 mg/dL (0.55-1.3); TOT PROT 7.8 g/dl (6.4-8.2)
[2018-12-04 08:46] LABS: POTASSIUM 2.8 mmol/L (3.5-5.1)
[2018-12-04] MEDS: ENOXAPARIN NA (PORCINE) 60 MG/0.6 ML DISP.SYRIN SQ SCH ×2 (10:25→22:38)
[2018-12-04] MEDS: DOXYCYCLINE INJECTION 100 MG in DEXTROSE 5%-WATER - 100 ML IVPB SCH ×2 (10:25→22:43)
[2018-12-04] MEDS: KCL 10 MEQ IVPB 10 MEQ/100 ML INFUS.BAG IVPB SCH ×3 (10:26→13:22)
[2018-12-04] MEDS: ZINC OXIDE 20% TOPICAL OINTMENT 30 GM TUBE TP SCH (10:26)
[2018-12-04] MEDS: CYANOCOBALAMIN 1,000 MCG TABLET (FP) PO SCH (10:26)
[2018-12-04] MEDS: NYSTATIN POWDER 100,000 UNITS/GM - 15 GM TOPICAL POWDER TP SCH (10:31)
[2018-12-04] MEDS: POTASSIUM CHLORIDE 20 MEQ in AMINO ACIDS 4.25%/D5W 1,000 ML IVPB SCH ×2 (11:43→22:37)
[2018-12-04 12:02] LABS: ANISOCYTOSIS 2+; MACROCYTOSIS 0; PLATELET ESTIMATE DECREASED
[2018-12-04] MEDS: PANTOPRAZOLE SODIUM 40 MG VIAL IVPUSH SCH (15:20)
[2018-12-04 16:50] LABS: CALCIUM 8.8 mg/dL (8.5-10.1); CREATININE 1.2 mg/dL (0.55-1.3); POTASSIUM 3.4 mmol/L (3.5-5.1)
[2018-12-04] MEDS: FAT EMULSIONS 250 ML IV SCH (22:37)
[2018-12-05] MEDS: INSULIN SLIDING SCALE (NOVOLOG) 1 VIAL SQ SCH ×2 (06:12→16:27)
[2018-12-05 07:37] LABS: BLOOD UREA NITROGEN 21.2 mg/dL (7-18); CALCIUM 9.1 mg/dL (8.5-10.1); CREATININE 1.3 mg/dL (0.55-1.3)
[2018-12-05] MEDS: CYANOCOBALAMIN 1,000 MCG TABLET (FP) PO SCH (09:45)
[2018-12-05] MEDS ORDERED: PT OWN MED DRAWER 7, Y5N ONE ×2 (09:46→21:24)
[2018-12-05] MEDS: DOXYCYCLINE INJECTION 100 MG in DEXTROSE 5%-WATER - 100 ML IVPB SCH ×2 (09:52→21:38)
[2018-12-05] MEDS: NYSTATIN POWDER 100,000 UNITS/GM - 15 GM TOPICAL POWDER TP SCH (09:52)
[2018-12-05] MEDS: PANTOPRAZOLE SODIUM 40 MG VIAL IVPUSH SCH (09:52)
[2018-12-05] MEDS: ENOXAPARIN NA (PORCINE) 60 MG/0.6 ML DISP.SYRIN SQ SCH (09:53)
[2018-12-05] MEDS: ZINC OXIDE 20% TOPICAL OINTMENT 30 GM TUBE TP SCH (09:53)
--- NOTE | 2018-12-05 10:16 | PN ---
Progress Note (short form) - Note Progress Note: pt seen/ examined awake/ comfortable Vital Signs Temp 98.9 F 12/05/18 06:01 Pulse 89 12/05/18 06:01 Resp 18 12/05/18 06:01 BP 121/78 12/05/18 06:01 Pulse Ox 97 12/04/18 20:08 Intake & Output 12/04/18 12/04/18 12/05/18 11:59 23:59 11:59 Intake Total 1324 1060 Output Total 750 800 800 Balance -750 524 260 Intake: IV 924 1060 SL#2 840 sl 924 220 IVPB 400 Output: Urine 750 800 800 Void 750 800 800 Other: Voiding Method Urinal Urinal Bowel Movement No No # Bowel Movements 3 Active Medications Acetaminophen (Tylenol -) 325 mg PO QID PRN PRN Reason: PAIN Acetaminophen (Ofirmev Injection -) 1,000 mg IVPB Q6H PRN PRN Reason: FEVER Cyanocobalamin (Vitamin B12 -) 2,500 mcg PO DAILY [facility] Last Admin: 12/05/18 09:45 Dose: Not Given Enoxaparin Sodium (Lovenox -) 60 mg SQ Q12H [facility] Last Admin: 12/05/18 09:53 Dose: 60 mg Fat Emulsion Intravenous (Intralipid -) 250 mls @ 20.833 mls/hr IV DAILY@2200 [facility] Last Admin: 12/04/18 22:37 Dose: 20.833 mls/hr Potassium Chloride 20 meq/ (Amino Acids) 1,010 mls @ 84 mls/hr IVPB Q12H [facility] Last Admin: 12/04/18 22:37 Dose: 84 mls/hr Doxycycline Hyclate 100 mg/ (Dextrose) 100 mls @ 100 mls/hr IVPB BID [facility] Last Admin: 12/05/18 09:52 Dose: 100 mls/hr Potassium Chloride (Potassium Chloride 10 Meq Premix Ivpb -) 10 meq in 100 mls @ 100 mls/hr IVPB Q60M [facility] Stop: 12/05/18 13:14 Insulin Aspart (Novolog Vial Sliding Scale -) 0 vial SQ BIDAC [facility]; Protocol Last Admin: 12/05/18 06:12 Dose: Not Given Multi-Ingredient Ointment (Zinc Oxide) 1 applic TP DAILY [facility] Last Admin: 12/05/18 09:53 Dose: 1 applic Nystatin (Nystop Powder -) 1 applic TP DAILY [facility] Last Admin: 12/05/18 09:52 Dose: 1 applic Pantoprazole Sodium (Protonix Iv) 40 mg IVPUSH DAILY [facility] Last Admin: 12/05/18 09:52 Dose: 40 mg CBC, BMP 12/04/18 06:15 12/05/18 06:10 Physical Exam awake/ comfortable lungs- clear cvs- s1, s2 rrr bd - soft ext- no edema neuro- aox3 a/p discussed continue present care replace potassium - on clinimix ivig per neuro-->completed 3 doses swallow eval supplement k if fails swallow- consider g tube by IR will follow discussed with RN also Problem List - Problems (1) CIDP (chronic inflammatory demyelinating polyneuropathy) Code(s): G61.81 - CHRONIC INFLAMMATORY DEMYELINATING POLYNEURITIS (2) Dysphagia Code(s): R13.10 - DYSPHAGIA, UNSPECIFIED Qualifiers: Dysphagia type: esophageal phase Qualified Code(s): R13.10 - Dysphagia, unspecified (3) GERD (gastroesophageal reflux disease) Code(s): K21.9 - GASTRO-ESOPHAGEAL REFLUX DISEASE WITHOUT ESOPHAGITIS (4) Anemia Code(s): D64.9 - ANEMIA, UNSPECIFIED Qualifiers: Anemia type: unspecified type Qualified Code(s): D64.9 - Anemia, unspecified (5) Atrial fibrillation Code(s): I48.91 - UNSPECIFIED ATRIAL FIBRILLATION Qualifiers: Atrial fibrillation type: unspecified Qualified Code(s): I48.91 - Unspecified atrial fibrillation (6) CAD (coronary artery disease) Code(s): I25.10 - ATHSCL HEART DISEASE OF [place] CORONARY ARTERY W/O ANG PCTRS Qualifiers: Coronary Disease-Associated Artery/Lesion type: [place] artery [place] vs. transplanted heart: [place] heart Associated angina: without angina Qualified Code(s): I25.10 - Atherosclerotic heart disease of [place] coronary artery without angina pectoris (7) Colon cancer metastasized to liver Code(s): C18.9 - MALIGNANT NEOPLASM OF COLON, UNSPECIFIED; C78.7 - SECONDARY MALIG NEOPLASM OF LIVER AND INTRAHEPATIC BILE DUCT (8) Diabetes mellitus Code(s): E11.9 - TYPE 2 DIABETES MELLITUS WITHOUT COMPLICATIONS Qualifiers: Diabetes mellitus type: type 2 Diabetes mellitus regional clinical research associate insulin use: without alf use Diabetes mellitus complication status: without complication Qualified Code(s): E11.9 - Type 2 diabetes mellitus without complications (9) Multiple myeloma Code(s): C90.00 - MULTIPLE MYELOMA NOT HAVING ACHIEVED REMISSION Qualifiers: Multiple myeloma remission status: unspecified Qualified Code(s): C90.00 - Multiple myeloma not having achieved remission
[2018-12-05] MEDS: POTASSIUM CHLORIDE 20 MEQ in AMINO ACIDS 4.25%/D5W 1,000 ML IVPB SCH ×2 (10:22→23:30)
[2018-12-05] MEDS: KCL 10 MEQ IVPB 10 MEQ/100 ML INFUS.BAG IVPB SCH ×3 (11:21→14:03)
--- NOTE | 2018-12-05 13:38 | PN ---
Progress Note, [employer] - Note Progress Note: Selected Entries 12/02/18 12/02/18 12/02/18 04:46 07:22 09:50 Breakfast NPO Temperature 98.2 F 97.7 F Laboratory Tests 12/02/18 06:15 WBC 2.0 L NPO including meds. IVIG completed per neurology Asked to reassess swallowing function. Responsive cough then heaving with 2 sips of water. Pt is in agreement with feeding tube insertion.
--- NOTE | 2018-12-05 19:40 | PN.GI ---
GI Progress Note Subjective: GI NOte: No significant response to IVIG so far. Michael is now accepting of a feeding gastrostomy tube. I discussed the 3 options that include surgical G tube insertion , an endoscopic PEG which requires MAC anesthesia or IR placement of a G tube which requires a temporary NG to insufflate the stomach. He opted for the IR method - Objective Vital Signs: Vital Signs Temperature 98.0 F 12/05/18 17:31 Pulse Rate 98 H 12/05/18 17:31 Respiratory Rate 18 12/05/18 17:31 Blood Pressure 110/67 12/05/18 17:31 O2 Sat by Pulse Oximetry (%) 96 12/05/18 09:00 Laboratory Tests 11/30/18 12/02/18 12/03/18 15:42 06:15 09:35 Plt Count 114 L D 69 L D 68 L 12/04/18 06:15 Plt Count 75 L Constitutional: Anxious ...Auscultate: Yes: Normoactive Bowel Sounds ...Palpate: Yes: Soft, Other (nontender) Labs: CBC, BMP 12/04/18 06:15 12/05/18 06:10 INR, PTT INR 1.18 (0.83-1.09) H 11/30/18 15:42 Assessment/Plan Assessment: - Dysphagia and possible gastroparesis - Advanced metastatic colon cancer and too weak to have chemotherapy - GERD with Schatzki ring is not clinically significant since his dilation Plan: -- I have ordered G tube insertion by IR and stopped the heparin. Romero repeat his platelet count which may prove to be the obstacle to G tube insertion Problem List - Problems (1) Dysphagia Code(s): R13.10 - DYSPHAGIA, UNSPECIFIED Qualifiers: Dysphagia type: esophageal phase Qualified Code(s): R13.10 - Dysphagia, unspecified (2) Colon cancer metastasized to liver Code(s): C18.9 - MALIGNANT NEOPLASM OF COLON, UNSPECIFIED; C78.7 - SECONDARY MALIG NEOPLASM OF LIVER AND INTRAHEPATIC BILE DUCT (3) CIDP (chronic inflammatory demyelinating polyneuropathy) Code(s): G61.81 - CHRONIC INFLAMMATORY DEMYELINATING POLYNEURITIS (4) GERD (gastroesophageal reflux disease) Code(s): K21.9 - GASTRO-ESOPHAGEAL REFLUX DISEASE WITHOUT ESOPHAGITIS (5) Atrial fibrillation Code(s): I48.91 - UNSPECIFIED ATRIAL FIBRILLATION Qualifiers: Atrial fibrillation type: unspecified Qualified Code(s): I48.91 - Unspecified atrial fibrillation (6) C. difficile diarrhea Code(s): A04.72 - ENTEROCOLITIS D/T CLOSTRIDIUM DIFFICILE, NOT SPCF RECUR (7) CAD (coronary artery disease) Code(s): I25.10 - ATHSCL HEART DISEASE OF [place] CORONARY ARTERY W/O ANG PCTRS Qualifiers: Coronary Disease-Associated Artery/Lesion type: [place] artery [place] vs. transplanted heart: [place] heart Associated angina: without angina Qualified Code(s): I25.10 - Atherosclerotic heart disease of [place] coronary artery without angina pectoris (8) Diabetes mellitus Code(s): E11.9 - TYPE 2 DIABETES MELLITUS WITHOUT COMPLICATIONS Qualifiers: Diabetes mellitus type: type 2 Diabetes mellitus alf insulin use: without termite helper use Diabetes mellitus complication status: without complication Qualified Code(s): E11.9 - Type 2 diabetes mellitus without complications (9) Failure to thrive Code(s): DEG0341 - Qualifiers: Failure to thrive age range: in adult Qualified Code(s): R62.7 - Adult failure to thrive (10) Family history of malignant neoplasm of colon in first degree relative diagnosed when younger than 60 years of age Code(s): Z80.0 - FAMILY HISTORY OF MALIGNANT NEOPLASM OF DIGESTIVE ORGANS (11) Fatty liver Code(s): K76.0 - FATTY (CHANGE OF) LIVER, NOT ELSEWHERE CLASSIFIED (12) Gout Code(s): M10.9 - GOUT, UNSPECIFIED (13) H/O gastrostomy Code(s): Z93.4 - OTHER ARTIFICIAL OPENINGS OF GASTROINTESTINAL TRACT STATUS (14) MRSA (methicillin resistant staph aureus) culture positive Code(s): Z22.322 - CARRIER OR SUSPECTED CARRIER OF METHICILLIN RESIS STAPH (15) Multiple myeloma Code(s): C90.00 - MULTIPLE MYELOMA NOT HAVING ACHIEVED REMISSION Qualifiers: Multiple myeloma remission status: unspecified Qualified Code(s): C90.00 - Multiple myeloma not having achieved remission (16) Paroxysmal atrial fibrillation Code(s): I48.0 - PAROXYSMAL ATRIAL FIBRILLATION (17) Schatzki's ring of distal esophagus Code(s): K22.2 - ESOPHAGEAL OBSTRUCTION
[2018-12-06] MEDS: FAT EMULSIONS 250 ML IV SCH ×2 (00:39→22:26)
[2018-12-06] MEDS: INSULIN SLIDING SCALE (NOVOLOG) 1 VIAL SQ SCH ×2 (07:00→16:47)
[2018-12-06 07:32] LABS: BASO % 1.2 % (0-2.0); EOS % 0.6 % (0-4.5); HEMATOCRIT 30.7 % (35.4-49); HEMOGLOBIN 10.3 GM/dL (11.7-16.9); LYMPH % 24.6 % (8-40); MCH 32.3 pg (25.7-33.7); MCHC 33.7 g/dl (32.0-35.9); MEAN CELL VOLUME 95.7 fl (80-96); MEAN PLT VOLUME 8.9 fl (7.5-11.1); MONO % 16.7 % (3.8-10.2); NEUT % 56.9 % (42.8-82.8); PLATELET COUNT 82 K/MM3 (134-434); RBC 3.21 M/mm3 (4.00-5.60); RDW 21.2 % (11.9-15.9); WHITE BLOOD COUNT 3.2 K/mm3 (4.0-10.0)
[2018-12-06 08:09] LABS: ALBUMIN 2.9 g/dl (3.4-5.0); BILIRUBIN,TOTAL 0.6 mg/dL (0.2-1); BLOOD UREA NITROGEN 25.3 mg/dL (7-18); CALCIUM 9.3 mg/dL (8.5-10.1); CREATININE 1.3 mg/dL (0.55-1.3); MAGNESIUM 1.4 mg/dL (1.8-2.4); POTASSIUM 3.1 mmol/L (3.5-5.1); TOT PROT 7.8 g/dl (6.4-8.2)
[2018-12-06] MEDS ORDERED: PT OWN MED DRAWER 7, Y5N ONE (08:48)
[2018-12-06] MEDS: PANTOPRAZOLE SODIUM 40 MG VIAL IVPUSH SCH (09:15)
[2018-12-06] MEDS: DOXYCYCLINE INJECTION 100 MG in DEXTROSE 5%-WATER - 100 ML IVPB SCH ×2 (09:15→21:00)
[2018-12-06] MEDS: NYSTATIN POWDER 100,000 UNITS/GM - 15 GM TOPICAL POWDER TP SCH (09:15)
[2018-12-06] MEDS: CYANOCOBALAMIN 1,000 MCG TABLET (FP) PO SCH (09:16)
[2018-12-06] MEDS: ZINC OXIDE 20% TOPICAL OINTMENT 30 GM TUBE TP SCH (09:16)
--- NOTE | 2018-12-06 10:57 | PN ---
Progress Note (short form) - Note Progress Note: Events noted no distress awaiting GT placement by IR Vital Signs - 24 hr 12/05/18 12/05/18 12/05/18 14:49 17:31 21:00 Temperature 98.1 F 98.0 F Pulse Rate 92 H 98 H Respiratory 18 18 16 Rate Blood Pressure 121/70 110/67 O2 Sat by Pulse 96 Oximetry (%) 12/05/18 12/06/18 12/06/18 21:41 06:00 09:00 Temperature 98.8 F 97.4 F L Pulse Rate 87 92 H Respiratory 16 16 Rate Blood Pressure 129/56 L 113/81 O2 Sat by Pulse 98 Oximetry (%) 12/06/18 10:00 Temperature 97.9 F Pulse Rate 92 H Respiratory 18 Rate Blood Pressure 131/69 O2 Sat by Pulse Oximetry (%) Current Medications Generic Name Dose Route Start Last Admin Trade Name Freq PRN Reason Stop Dose Admin Acetaminophen 325 mg 12/01/18 15:33 Tylenol - PO QID PRN PAIN Acetaminophen 1,000 mg 12/03/18 10:00 Ofirmev Injection - IVPB Q6H PRN FEVER Cyanocobalamin 2,500 mcg 12/02/18 10:00 12/06/18 09:16 Vitamin B12 - PO Not Given DAILY JAMIE Fat Emulsion Intravenous 250 mls @ 20.833 mls/hr 12/02/18 22:00 12/06/18 00: 39 Intralipid - IV 20.833 mls/hr DAILY@2200 JAMIE Administration Potassium Chloride 20 meq/ 1,010 mls @ 84 mls/hr 12/04/18 09:30 12/06/18 11: 02 Amino Acids IVPB 84 mls/hr Q12H JAMIE Administration Doxycycline Hyclate 100 mg/ 100 mls @ 100 mls/hr 12/04/18 10:00 12/06/18 09: 15 Dextrose IVPB 100 mls/hr BID JAMIE Administration Insulin Aspart 0 vial 12/01/18 07:00 12/06/18 07:00 Novolog Vial Sliding Scale - SQ Not Given BIDAC [facility] Protocol Multi-Ingredient Ointment 1 applic 12/02/18 10:00 12/06/18 09:16 Zinc Oxide TP 1 applic DAILY JAMIE Administration Nystatin 1 applic 12/02/18 10:00 12/06/18 09:15 Nystop Powder - TP 1 applic DAILY JAMIE Administration Pantoprazole Sodium 40 mg 12/04/18 15:00 12/06/18 09:15 Protonix Iv IVPUSH 40 mg DAILY JAMIE Administration Laboratory Results - last 24 hr 12/05/18 12/06/18 12/06/18 16:27 06:17 06:17 WBC 3.2 L RBC 3.21 L Hgb 10.3 L Hct 30.7 L MCV 95.7 MCH 32.3 MCHC 33.7 RDW 21.2 H Plt Count 82 L MPV 8.9 Absolute Neuts (auto) 1.8 Neutrophils % 56.9 Lymphocytes % 24.6 Monocytes % 16.7 H Eosinophils % 0.6 Basophils % 1.2 Nucleated RBC % 0 Sodium 139 Potassium 3.1 L Chloride 113 H Carbon Dioxide 15 L Anion Gap 10 BUN 25.3 H Creatinine 1.3 Est GFR (CKD-EPI)AfAm 62.74 Est GFR (CKD-EPI)NonAf 54.13 POC Glucometer 120 Random Glucose 125 H Calcium 9.3 Magnesium 1.4 L Total Bilirubin 0.6 AST 30 ALT 19 Alkaline Phosphatase 131 H Total Protein 7.8 Albumin 2.9 L 12/06/18 06:56 WBC RBC Hgb Hct MCV MCH MCHC RDW Plt Count MPV Absolute Neuts (auto) Neutrophils % Lymphocytes % Monocytes % Eosinophils % Basophils % Nucleated RBC % Sodium Potassium Chloride Carbon Dioxide Anion Gap BUN Creatinine Est GFR (CKD-EPI)AfAm Est GFR (CKD-EPI)NonAf POC Glucometer 131 Random Glucose Calcium Magnesium Total Bilirubin AST ALT Alkaline Phosphatase Total Protein Albumin Physical Exam awake/ comfortable lungs- clear cvs- s1, s2 rrr bd - soft ext- no edema neuro- aox3 a/p discussed continue present care replace potassium for GT fluids-- on clinimix ivig per neuro-->completed 2 doses gi consult appreciated Problem List - Problems (1) CIDP (chronic inflammatory demyelinating polyneuropathy) Code(s): G61.81 - CHRONIC INFLAMMATORY DEMYELINATING POLYNEURITIS (2) Dysphagia Code(s): R13.10 - DYSPHAGIA, UNSPECIFIED Qualifiers: Dysphagia type: esophageal phase Qualified Code(s): R13.10 - Dysphagia, unspecified (3) GERD (gastroesophageal reflux disease) Code(s): K21.9 - GASTRO-ESOPHAGEAL REFLUX DISEASE WITHOUT ESOPHAGITIS (4) Anemia Code(s): D64.9 - ANEMIA, UNSPECIFIED Qualifiers: Anemia type: unspecified type Qualified Code(s): D64.9 - Anemia, unspecified (5) Atrial fibrillation Code(s): I48.91 - UNSPECIFIED ATRIAL FIBRILLATION Qualifiers: Atrial fibrillation type: unspecified Qualified Code(s): I48.91 - Unspecified atrial fibrillation
[2018-12-06] MEDS: POTASSIUM CHLORIDE 20 MEQ in AMINO ACIDS 4.25%/D5W 1,000 ML IVPB SCH (11:02)
[2018-12-06] MEDS ORDERED: KCL 10 MEQ IVPB 10 MEQ/100 ML INFUS.BAG IVPB SCH (11:30)
[2018-12-06] MEDS ORDERED: MAGNESIUM SULF 50% (8.12 MEQ/2 ML-1 GM VIAL) IVPB ONE ×2 (11:30→12:30)
[2018-12-06] MEDS: AMINO ACIDS IVPB SCH ×3 (12:39→23:56)
[2018-12-06] MEDS: POTASSIUM CHLORIDE IVPB SCH ×3 (12:39→23:56)
[2018-12-06] MEDS: [UNRECOGNIZED DRUG - OTHER] IVPB SCH ×3 (12:39→23:56)
[2018-12-06] MEDS: MAGNESIUM SULFATE IVPB SCH ×3 (12:39→23:56)
--- NOTE | 2018-12-06 17:54 | PN.GI ---
GI Progress Note Subjective: GI NOte: No change in ability maeve swallow. G tube insertion by IR in AM. I was asked by the nursing staff to insert an NG tube to facilitate the IR procedure. I inserted a 8FR G tube. I have ordered an X ray to check the position before administering gastrograffin. - Objective Vital Signs: Vital Signs Temperature 97.9 F 12/06/18 14:52 Pulse Rate 88 12/06/18 14:52 Respiratory Rate 20 12/06/18 14:52 Blood Pressure 121/66 12/06/18 14:52 O2 Sat by Pulse Oximetry (%) 98 12/06/18 09:00 Laboratory Tests 12/06/18 12/06/18 06:17 06:17 WBC 3.2 L Hgb 10.3 L Magnesium 1.4 L Total Bilirubin 0.6 AST 30 ALT 19 Alkaline Phosphatase 131 H Laboratory Tests 12/06/18 06:17 Plt Count 82 L Constitutional: Anxious ...Auscultate: Yes: Normoactive Bowel Sounds ...Palpate: Yes: Soft, Other (nontender) Labs: CBC, BMP 12/06/18 06:17 12/06/18 06:17 INR, PTT INR 1.18 (0.83-1.09) H 11/30/18 15:42 Assessment/Plan Assessment: - Dysphagia and possible gastroparesis - Advanced metastatic colon cancer - GERD with Schatzki ring is not clinically significant since his dilation Plan: -- I have inserted an NG tube to facilitate G tube insertion by IR. Platelet count is up to 82K Problem List - Problems (1) Dysphagia Code(s): R13.10 - DYSPHAGIA, UNSPECIFIED Qualifiers: Dysphagia type: esophageal phase Qualified Code(s): R13.10 - Dysphagia, unspecified (2) Colon cancer metastasized to liver Code(s): C18.9 - MALIGNANT NEOPLASM OF COLON, UNSPECIFIED; C78.7 - SECONDARY MALIG NEOPLASM OF LIVER AND INTRAHEPATIC BILE DUCT (3) CIDP (chronic inflammatory demyelinating polyneuropathy) Code(s): G61.81 - CHRONIC INFLAMMATORY DEMYELINATING POLYNEURITIS (4) GERD (gastroesophageal reflux disease) Code(s): K21.9 - GASTRO-ESOPHAGEAL REFLUX DISEASE WITHOUT ESOPHAGITIS (5) Atrial fibrillation Code(s): I48.91 - UNSPECIFIED ATRIAL FIBRILLATION Qualifiers: Atrial fibrillation type: unspecified Qualified Code(s): I48.91 - Unspecified atrial fibrillation (6) C. difficile diarrhea Code(s): A04.72 - ENTEROCOLITIS D/T CLOSTRIDIUM DIFFICILE, NOT SPCF RECUR (7) CAD (coronary artery disease) Code(s): I25.10 - ATHSCL HEART DISEASE OF [place] CORONARY ARTERY W/O ANG PCTRS Qualifiers: Coronary Disease-Associated Artery/Lesion type: [place] artery [place] vs. transplanted heart: [place] heart Associated angina: without angina Qualified Code(s): I25.10 - Atherosclerotic heart disease of [place] coronary artery without angina pectoris (8) Diabetes mellitus Code(s): E11.9 - TYPE 2 DIABETES MELLITUS WITHOUT COMPLICATIONS Qualifiers: Diabetes mellitus type: type 2 Diabetes mellitus buttermaker continuous churn insulin use: without longterm use Diabetes mellitus complication status: without complication Qualified Code(s): E11.9 - Type 2 diabetes mellitus without complications (9) Failure to thrive Code(s): [id number] - Qualifiers: Failure to thrive age range: in adult Qualified Code(s): R62.7 - Adult failure to thrive (10) Family history of malignant neoplasm of colon in first degree relative diagnosed when younger than 60 years of age Code(s): Z80.0 - FAMILY HISTORY OF MALIGNANT NEOPLASM OF DIGESTIVE ORGANS (11) Fatty liver Code(s): K76.0 - FATTY (CHANGE OF) LIVER, NOT ELSEWHERE CLASSIFIED (12) Gout Code(s): M10.9 - GOUT, UNSPECIFIED (13) H/O gastrostomy Code(s): Z93.4 - OTHER ARTIFICIAL OPENINGS OF GASTROINTESTINAL TRACT STATUS (14) MRSA (methicillin resistant staph aureus) culture positive Code(s): Z22.322 - CARRIER OR SUSPECTED CARRIER OF METHICILLIN RESIS STAPH (15) Multiple myeloma Code(s): C90.00 - MULTIPLE MYELOMA NOT HAVING ACHIEVED REMISSION Qualifiers: Multiple myeloma remission status: unspecified Qualified Code(s): C90.00 - Multiple myeloma not having achieved remission (16) Paroxysmal atrial fibrillation Code(s): I48.0 - PAROXYSMAL ATRIAL FIBRILLATION (17) Schatzki's ring of distal esophagus Code(s): K22.2 - ESOPHAGEAL OBSTRUCTION
--- NOTE | 2018-12-06 18:30 | PN ---
Progress Note (short form) - Note Progress Note: GI NOte: G tube is in good position . Can proceed with gastrograffin administration. Problem List - Problems (1) Dysphagia Code(s): R13.10 - DYSPHAGIA, UNSPECIFIED Qualifiers: Dysphagia type: esophageal phase Qualified Code(s): R13.10 - Dysphagia, unspecified (2) Colon cancer metastasized to liver Code(s): C18.9 - MALIGNANT NEOPLASM OF COLON, UNSPECIFIED; C78.7 - SECONDARY MALIG NEOPLASM OF LIVER AND INTRAHEPATIC BILE DUCT (3) CIDP (chronic inflammatory demyelinating polyneuropathy) Code(s): G61.81 - CHRONIC INFLAMMATORY DEMYELINATING POLYNEURITIS (4) GERD (gastroesophageal reflux disease) Code(s): K21.9 - GASTRO-ESOPHAGEAL REFLUX DISEASE WITHOUT ESOPHAGITIS (5) Atrial fibrillation Code(s): I48.91 - UNSPECIFIED ATRIAL FIBRILLATION Qualifiers: Atrial fibrillation type: unspecified Qualified Code(s): I48.91 - Unspecified atrial fibrillation (6) C. difficile diarrhea Code(s): A04.72 - ENTEROCOLITIS D/T CLOSTRIDIUM DIFFICILE, NOT SPCF RECUR (7) CAD (coronary artery disease) Code(s): I25.10 - ATHSCL HEART DISEASE OF [place] CORONARY ARTERY W/O ANG PCTRS Qualifiers: Coronary Disease-Associated Artery/Lesion type: [place] artery [place] vs. transplanted heart: [place] heart Associated angina: without angina Qualified Code(s): I25.10 - Atherosclerotic heart disease of [place] coronary artery without angina pectoris (8) Diabetes mellitus Code(s): E11.9 - TYPE 2 DIABETES MELLITUS WITHOUT COMPLICATIONS Qualifiers: Diabetes mellitus type: type 2 Diabetes mellitus correction insulin use: without long term care phlebotomist use Diabetes mellitus complication status: without complication Qualified Code(s): E11.9 - Type 2 diabetes mellitus without complications (9) Failure to thrive Code(s): [id number] - Qualifiers: Failure to thrive age range: in adult Qualified Code(s): R62.7 - Adult failure to thrive (10) Family history of malignant neoplasm of colon in first degree relative diagnosed when younger than 60 years of age Code(s): Z80.0 - FAMILY HISTORY OF MALIGNANT NEOPLASM OF DIGESTIVE ORGANS (11) Fatty liver Code(s): K76.0 - FATTY (CHANGE OF) LIVER, NOT ELSEWHERE CLASSIFIED (12) Gout Code(s): M10.9 - GOUT, UNSPECIFIED (13) H/O gastrostomy Code(s): Z93.4 - OTHER ARTIFICIAL OPENINGS OF GASTROINTESTINAL TRACT STATUS (14) MRSA (methicillin resistant staph aureus) culture positive Code(s): Z22.322 - CARRIER OR SUSPECTED CARRIER OF METHICILLIN RESIS STAPH (15) Multiple myeloma Code(s): C90.00 - MULTIPLE MYELOMA NOT HAVING ACHIEVED REMISSION Qualifiers: Multiple myeloma remission status: unspecified Qualified Code(s): C90.00 - Multiple myeloma not having achieved remission (16) Paroxysmal atrial fibrillation Code(s): I48.0 - PAROXYSMAL ATRIAL FIBRILLATION (17) Schatzki's ring of distal esophagus Code(s): K22.2 - ESOPHAGEAL OBSTRUCTION
[2018-12-06] MEDS ORDERED: METOCLOPRAMIDE HCL INJECTION 10 MG/2 ML VIAL IVPUSH SCH (20:30)
[2018-12-06] MEDS: METOCLOPRAMIDE HCL INJECTION 10 MG/2 ML VIAL IVPUSH SCH (21:44)
[2018-12-07] MEDS: METOCLOPRAMIDE HCL INJECTION 10 MG/2 ML VIAL IVPUSH SCH ×3 (02:47→17:18)
[2018-12-07] MEDS: INSULIN SLIDING SCALE (NOVOLOG) 1 VIAL SQ SCH ×2 (06:00→17:13)
[2018-12-07 08:32] LABS: BLOOD UREA NITROGEN 28.9 mg/dL (7-18); CALCIUM 9.8 mg/dL (8.5-10.1); CREATININE 1.3 mg/dL (0.55-1.3); POTASSIUM 3.2 mmol/L (3.5-5.1)
[2018-12-07] MEDS: NYSTATIN POWDER 100,000 UNITS/GM - 15 GM TOPICAL POWDER TP SCH (09:44)
[2018-12-07] MEDS: PANTOPRAZOLE SODIUM 40 MG VIAL IVPUSH SCH (09:44)
[2018-12-07] MEDS: DOXYCYCLINE INJECTION 100 MG in DEXTROSE 5%-WATER - 100 ML IVPB SCH (09:45)
[2018-12-07] MEDS: CYANOCOBALAMIN 1,000 MCG TABLET (FP) PO SCH (09:52)
[2018-12-07] MEDS: ZINC OXIDE 20% TOPICAL OINTMENT 30 GM TUBE TP SCH (09:53)
[2018-12-07] MEDS ORDERED: MIDAZOLAM HCL 2 MG/2 ML SINGLE DOSE VIAL IVPUSH ONE ×2 (11:50→12:06)
[2018-12-07] MEDS ORDERED: GlUCAGON HUMAN RECOMBINANT 1 MG/VIAL IJ ONE (12:02)
[2018-12-07] MEDS: [UNRECOGNIZED DRUG - OTHER] IVPB SCH ×2 (12:28→18:51)
[2018-12-07] MEDS: MAGNESIUM SULFATE IVPB SCH ×2 (12:28→18:51)
[2018-12-07] MEDS: AMINO ACIDS IVPB SCH ×2 (12:28→18:51)
[2018-12-07] MEDS: POTASSIUM CHLORIDE IVPB SCH ×2 (12:28→18:51)
[2018-12-07] MEDS ORDERED: POTASSIUM CHLORIDE ORAL LIQUID 20 MEQ/15 ML PO ONE (13:13)
[2018-12-07] MEDS: METOCLOPRAMIDE HCL 5 MG/5 ML UNIT DOSE CUP NGT SCH (17:19)
--- NOTE | 2018-12-07 18:50 | PN ---
Progress Note (short form) - Note Progress Note: NEUROLOGY PROGRESS: Events reviewed and discussed with RN. at bedside. Pt now s/p 140 grams of IVIG on Wednesday and notes it takes approximately "3 days " to start working. S/P NG tube and IR insertion of PEG. Remains NPO at this time. NEURO: Awake, alert, oriented x 3. Tongue JAE's and strength are normal. Gag present but reduced. L cogwheeling with reinforcement. 4-/5 B/L ankle DF. 4-/5 R toe extensor strength. Reduced vibration to ankles. 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 Dysphagia Suggest: Continue IVIG at regular intervals every 8 weeks. (Next due is Jan 31- ) PT eval for gait safety. Mobilize pt OOB to chair for assisted meals. Begin to allow PO supplementation of enteric feeds in next few days while patient is seated upright and observed. Thank you very much, Shahriar Monaco MD
[2018-12-07] MEDS: DOXYCYCLINE MONOHYDRATE 25 MG/5 ML SUSPENSION NGT SCH (21:39)
[2018-12-08] MEDS: POTASSIUM CHLORIDE IVPB SCH ×3 (00:17→13:18)
[2018-12-08] MEDS: [UNRECOGNIZED DRUG - OTHER] IVPB SCH ×3 (00:17→13:18)
[2018-12-08] MEDS: AMINO ACIDS IVPB SCH ×3 (00:17→13:18)
[2018-12-08] MEDS: MAGNESIUM SULFATE IVPB SCH ×3 (00:17→13:18)
[2018-12-08] MEDS: METOCLOPRAMIDE HCL 5 MG/5 ML UNIT DOSE CUP NGT SCH ×3 (00:34→13:18)
[2018-12-08] MEDS: INSULIN SLIDING SCALE (NOVOLOG) 1 VIAL SQ SCH ×2 (06:08→16:47)
[2018-12-08] MEDS: NYSTATIN POWDER 100,000 UNITS/GM - 15 GM TOPICAL POWDER TP SCH (09:20)
[2018-12-08] MEDS: DOXYCYCLINE MONOHYDRATE 25 MG/5 ML SUSPENSION NGT SCH ×2 (09:20→22:37)
[2018-12-08] MEDS: CYANOCOBALAMIN 1,000 MCG TABLET (FP) PO SCH (09:21)
[2018-12-08] MEDS: ZINC OXIDE 20% TOPICAL OINTMENT 30 GM TUBE TP SCH (09:22)
[2018-12-08] MEDS ORDERED: PANTOPRAZOLE SOD 40 MG SUSPENSION PACKET NGT SCH (10:00)
--- NOTE | 2018-12-08 12:38 | PN ---
Progress Note (short form) - Note Progress Note: Events noted no distress s/p GT Vital Signs - 24 hr 12/07/18 12/07/18 12/07/18 14:37 21:00 22:00 Temperature 207.5 F H 98.5 F Pulse Rate 93 H 88 Respiratory 18 18 Rate Blood Pressure 124/84 123/81 O2 Sat by Pulse 99 Oximetry (%) 12/08/18 12/08/18 12/08/18 06:05 08:21 09:00 Temperature 98.2 F 97.9 F Pulse Rate 98 H 96 H Respiratory 18 18 18 Rate Blood Pressure 134/80 122/79 O2 Sat by Pulse 99 Oximetry (%) Current Medications Generic Name Dose Route Start Last Admin Trade Name Freq PRN Reason Stop Dose Admin Acetaminophen 325 mg 12/01/18 15:33 Tylenol - PO QID PRN PAIN Cyanocobalamin 2,500 mcg 12/08/18 12:35 Vitamin B12 - GT DAILY JAMIE Doxycycline Monohydrate 100 mg 12/07/18 22:00 12/08/18 09:20 Vibramycin Oral Suspension - NGT 100 mg BID JAMIE Administration Insulin Aspart 0 vial 12/01/18 07:00 12/08/18 06:08 Novolog Vial Sliding Scale - SQ Not Given BIDAC [facility] Protocol Metoclopramide HCl 10 mg 12/08/18 12:45 Reglan Oral Solution - GT Q6H JAMIE Multi-Ingredient Ointment 1 applic 12/02/18 10:00 12/08/18 09:22 Zinc Oxide TP 1 applic DAILY JAMIE Administration Nystatin 1 applic 12/02/18 10:00 12/08/18 09:20 Nystop Powder - TP 1 applic DAILY JAMIE Administration Pantoprazole Sodium 40 mg 12/08/18 10:00 12/08/18 09:21 Protonix Packets For Oral Suspension - NGT 40 mg DAILY JAMIE Administration Laboratory Results - last 24 hr 12/07/18 12/08/18 16:48 05:36 POC Glucometer 95 134 Physical Exam awake/ comfortable lungs- clear cvs- s1, s2 rrr bd - soft, GT+ ext- no edema neuro- aox3 a/p discussed with pt and at bedside Abd xray noted start GT feeds-- ok with GI continue present care clinimix dc ivig per neuro-->completed 2 doses gi consult appreciated Problem List - Problems (1) CIDP (chronic inflammatory demyelinating polyneuropathy) Code(s): G61.81 - CHRONIC INFLAMMATORY DEMYELINATING POLYNEURITIS (2) Dysphagia Code(s): R13.10 - DYSPHAGIA, UNSPECIFIED Qualifiers: Dysphagia type: esophageal phase Qualified Code(s): R13.10 - Dysphagia, unspecified (3) GERD (gastroesophageal reflux disease) Code(s): K21.9 - GASTRO-ESOPHAGEAL REFLUX DISEASE WITHOUT ESOPHAGITIS (4) Anemia Code(s): D64.9 - ANEMIA, UNSPECIFIED Qualifiers: Anemia type: unspecified type Qualified Code(s): D64.9 - Anemia, unspecified (5) Atrial fibrillation Code(s): I48.91 - UNSPECIFIED ATRIAL FIBRILLATION Qualifiers: Atrial fibrillation type: unspecified Qualified Code(s): I48.91 - Unspecified atrial fibrillation
[2018-12-08] MEDS: METOCLOPRAMIDE HCL 5 MG/5 ML UNIT DOSE CUP GT SCH ×2 (12:51→18:01)
[2018-12-08] MEDS: CYANOCOBALAMIN 1,000 MCG TABLET (FP) GT SCH (13:19)
[2018-12-08] MEDS: RANITIDINE HCL 150 MG/10 ML UNIT-DOSE PEG SCH ×2 (13:20→22:37)
[2018-12-08] MEDS ORDERED: PT OWN MED DRAWER 7, Y5N ONE (22:36)
[2018-12-09] MEDS: METOCLOPRAMIDE HCL 5 MG/5 ML UNIT DOSE CUP GT SCH ×4 (00:13→17:45)
[2018-12-09] MEDS: INSULIN SLIDING SCALE (NOVOLOG) 1 VIAL SQ SCH ×2 (06:11→16:25)
[2018-12-09 07:47] LABS: HEMATOCRIT 31.2 % (35.4-49); HEMOGLOBIN 10.6 GM/dL (11.7-16.9); MCH 32.3 pg (25.7-33.7); MCHC 33.9 g/dl (32.0-35.9); MEAN CELL VOLUME 95.3 fl (80-96); MEAN PLT VOLUME 9.5 fl (7.5-11.1); PLATELET COUNT 79 K/MM3 (134-434); RBC 3.27 M/mm3 (4.00-5.60); RDW 21.9 % (11.9-15.9)
[2018-12-09 08:07] LABS: ALBUMIN 2.9 g/dl (3.4-5.0); BILIRUBIN,TOTAL 0.6 mg/dL (0.2-1); CALCIUM 9.4 mg/dL (8.5-10.1); CREATININE 1.3 mg/dL (0.55-1.3); POTASSIUM 3.2 mmol/L (3.5-5.1); TOT PROT 7.3 g/dl (6.4-8.2)
[2018-12-09] MEDS ORDERED: KCL 10 MEQ IVPB 10 MEQ/100 ML INFUS.BAG IVPB SCH (10:00)
--- NOTE | 2018-12-09 10:04 | DS ---
Physical Examination Vital Signs: Vital Signs Temperature 98.2 F 12/09/18 06:27 Pulse Rate 95 H 12/09/18 06:27 Respiratory Rate 18 12/09/18 06:27 Blood Pressure 112/71 12/09/18 06:27 O2 Sat by Pulse Oximetry (%) 99 12/08/18 21:00 Findings/Remarks: awake/ comfortable tolerating feeding no complains Constitutional: Yes: No Distress, Calm Eyes: Yes: Conjunctiva Clear Neck: Yes: Supple Cardiovascular: Yes: Regular Rate and Rhythm Respiratory: Yes: CTA Bilaterally Gastrointestinal: Yes: Soft, Other (s/p g tube) Edema: No Neurological: Yes: Alert Labs: CBC, BMP 12/09/18 06:30 12/09/18 06:30 Discharge Summary Reason For Visit: DYSPHAGIA,CHRONIC INFLAMITORY DEMYELATING POLYNEUR Current Active Problems CIDP (chronic inflammatory demyelinating polyneuropathy) (Acute) Dysphagia (Acute) GERD (gastroesophageal reflux disease) (Acute) Prerenal azotemia (Acute) Hospital Course: admitted due to dysphagia s/p ivig- no imprpovement gi/ neurology followed g tube placed under IR GUIDANCE Tolerating feeding discussed with nursing staff stable for d/c back to [facility] Will supplement k before d/c and monitor in half-way Meds reconcilled Discussed with lead case manager and pt also Condition: Stable - Instructions [facility]position: [facility] - Home Medications Comprehensive Discharge Medication List: Ambulatory Orders Gabapentin 400 mg PO BID 10/04/16 Allopurinol 300 mg PO DAILY 10/21/17 oxyCODONE HCL [Roxicodone -] 10 mg PO Q4H PRN #30 tablet MDD 4 10/11/18 Metoprolol Tartrate 12.5 mg PO BID #60 tablet 10/13/18 Nystatin 1 each MC DAILY 10/21/18 Zinc Oxide 20% Topical Oint 454 gm NR DAILY 10/21/18 Doxycycline Hyclate [Vibramycin -] 100 mg PO BID@1000,1800 capsule 11/23/18 Guaifenesin [Robitussin -] 10 ml PO Q4H PRN cup 11/23/18 Insulin Sliding Scale [Novolog Vial Sliding Scale -] 1 vial SQ ACHS units 11/23 oxyCODONE SR [Oxycontin] 10 mg PO BID #30 tab.er.12h MDD 2 11/23/18 Cyanocobalamin [Vitamin B12 -] 2,500 mcg GT DAILY tablet 12/09/18 Metoclopramide Oral Soln [Reglan Oral Solution -] 10 mg GT Q6H udc 12/09/18 Ranitidine Oral Solution [Zantac Oral Solution -] 150 mg PEG BID cup 12/09/18 Eliquis 5 mg bid
[2018-12-09] MEDS ORDERED: POTASSIUM CHLORIDE ORAL LIQUID 20 MEQ/15 ML PO ONE (10:15)
[2018-12-09] MEDS ORDERED: PT OWN MED DRAWER 7, Y5N ONE (10:43)
[2018-12-09] MEDS: DOXYCYCLINE MONOHYDRATE 25 MG/5 ML SUSPENSION NGT SCH (10:53)
[2018-12-09] MEDS: RANITIDINE HCL 150 MG/10 ML UNIT-DOSE PEG SCH (10:53)
[2018-12-09] MEDS: CYANOCOBALAMIN 1,000 MCG TABLET (FP) GT SCH (10:53)
[2018-12-09] MEDS: ZINC OXIDE 20% TOPICAL OINTMENT 30 GM TUBE TP SCH (10:54)
[2018-12-09] MEDS: NYSTATIN POWDER 100,000 UNITS/GM - 15 GM TOPICAL POWDER TP SCH (10:54)
--- NOTE | 2018-12-09 13:01 | PN ---
Progress Note, [employer] - Note Progress Note: Pt doing very well with TF. Reclining to 40 degrees. Educated pt and on need to have HOB elevated with TF. He is aware. Nursing has educated him as well. Pt should periodically try a sip of water in future to assess for possible improved esophageal dysphagia.
[2018-12-09] MEDS ORDERED: POTASSIUM CHLORIDE ORAL LIQUID 20 MEQ/15 ML GT ONE ×2 (14:15→15:50)
[2018-12-09 14:58] VITALS: BP 111/75; PULSE 103; TEMP 98.1
[2018-12-09] MEDS ORDERED: KCL 10 MEQ IVPB 10 MEQ/100 ML INFUS.BAG IVPB ONE (15:50)
== END 2018-12-09 18:58 | DRG 74 ==
LOC: JER 14:02 → JERBED 18:32 → J7W 12-01 10:08
PROVIDERS: ADMIT Internal Medicine; ATTEND Internal Medicine
PROC: 0DH63UZ Insertion of Feeding Device into Stomach, Percutaneous Approach (ICD-10-PCS; principal; 2018-12-07)
DX: G61.81 Chronic inflammatory demyelinating polyneuritis (principal); C90.00 Multiple myeloma not having achieved remission; C78.7 Secondary malignant neoplasm of liver and intrahepatic bile duct; C78.89 Secondary malignant neoplasm of other digestive organs; C18.9 Malignant neoplasm of colon, unspecified; R13.10 Dysphagia, unspecified; K21.9 Gastro-esophageal reflux disease without esophagitis; E11.43 Type 2 diabetes mellitus with diabetic autonomic (poly)neuropathy; I48.2 Chronic atrial fibrillation; K22.2 Esophageal obstruction
CPT/HCPCS: 36415; 49440; 71045-TC-FY; 74018-TC-FY; 80048; 80053; 82962; 83735; 85025; 85027; 85610; 85730; 86850; 86900; 86901; 93005; 93010; 97116-GP; 97162-GP; 99283-25; J1459; J1644; J7030

== ENCOUNTER 2019-01-09 15:34 | Inpatient (IN) | payer OTHER ==
--- NOTE | 2019-01-09 17:08 | PDOC ---
History of Present Illness <Ana Vaca - Last Filed: 01/09/19 20:07> - General History Source: Patient, Spouse Exam Limitations: No Limitations - History of Present Illness Initial Comments: 01/09/19 17:03 Michael Rachel is a 73M with PMH chronic inflammatory demyelinating polyneuropathy w/ baseline dysphagia s/p PEG placement 11/2018 and LLE numbness, as well as stage IV CA s/p central line infection, presenting with difficulty using G-tube and 2 days of NPO. 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 However, patient was not instructed on how to give food/medications though PEG, and visiting nurse did not come to provide instructions. Has not had any medications or food for the last 2 days. Reports hunger and thirst. Denies fever, N/V, C/D, urinary sx, abd pain, headache. Medications include metoprolol for Afib and Eliquis. PEG reported to have been placed last month, has been patent and pt has been receiving food/meds through it throughout hospitalization and rehab. Not ambulatory at baseline. Patient unsure of feeding regimen and the type of feeding he has been receiving. <Main Dia - Last Filed: 01/10/19 01:53> - General Chief Complaint: G Tube Problem Stated Complaint: needs assistance with G-tube feedings Time Seen by Provider: 01/09/19 16:46 Past History <LioAnark Whitehead - Last Filed: 01/09/19 20:07> - Past Medical History Anemia: No Asthma: No Cancer: Yes (liver,colon,multiple myeloma) Cardiac Disorders: Yes (chronic AFIB) CVA: Yes (TIA-left eye) COPD: No CHF: No Dementia: No Diabetes: Yes GI Disorders: Yes (GERD) Disorders: No HTN: Yes Hypercholesterolemia: Yes Liver Disease: Yes Seizures: No Thyroid Disease: No - Surgical History Abdominal Surgery: Yes (colectomy, liver surgery) Appendectomy: No Cardiac Surgery: No Cholecystectomy: No Lung Surgery: No Neurologic Surgery: No Orthopedic Surgery: Yes (l shoulder) - Immunization History Immunization Up to Date: Yes - Suicide/Smoking/Psychosocial Hx Smoking History: Unknown if ever smoked Have you smoked in the past 12 months: No If you are a former smoker, when did you quit?: 1975 Information on smoking cessation initiated: No Hx Alcohol Use: No Drug/Substance Use Hx: No Substance Use Type: None Hx Substance Use Treatment: (RECOVERING ALCOHOLIC 1982) <IfeomaMain - Last Filed: 01/10/19 01:53> - Past Medical History Allergies/Adverse Reactions: Allergies Allergy/AdvReac Type Severity Reaction Status Date / Time No Known Allergies Allergy Verified 11/30/18 15:19 Home Medications: Ambulatory Orders Gabapentin 400 mg PO BID 10/04/16 Allopurinol 300 mg PO DAILY 10/21/17 oxyCODONE HCL [Roxicodone -] 10 mg PO Q4H PRN #30 tablet MDD 4 10/11/18 Metoprolol Tartrate 12.5 mg PO BID #60 tablet 10/13/18 Nystatin 1 each MC DAILY 10/21/18 Zinc Oxide 20% Topical Oint 454 gm NR DAILY 10/21/18 Doxycycline Hyclate [Vibramycin -] 100 mg PO BID@1000,1800 capsule 11/23/18 Guaifenesin [Robitussin -] 10 ml PO Q4H PRN cup 11/23/18 Insulin Sliding Scale [Novolog Vial Sliding Scale -] 1 vial SQ ACHS units 11/23 oxyCODONE SR [Oxycontin] 10 mg PO BID #30 tab.er.12h MDD 2 11/23/18 Apixaban [Eliquis] 5 mg PO BID #30 tablet 12/09/18 Cyanocobalamin [Vitamin B12 -] 2,500 mcg GT DAILY tablet 12/09/18 Metoclopramide Oral Soln [Reglan Oral Solution -] 10 mg GT Q6H udc 12/09/18 Ranitidine Oral Solution [Zantac Oral Solution -] 150 mg PEG BID cup 12/09/18 Review of Systems - Review of Systems Constitutional: No: Chills, Fever, Weakness HEENTM: No: Blurred Vision, Hearing Loss, Throat Pain, Mouth Pain Respiratory: No: Cough, Shortness of Breath, Wheezing Cardiac (ROS): No: Chest Pain, Edema, Palpitations ABD/GI: No: Constipated, Diarrhea, Nausea, Vomiting : No: Burning, Dysuria, Discharge, Frequency, Flank Pain, Hematuria Musculoskeletal: No: Back Pain Integumentary: No: Dryness, Erythema Neurological: Yes: Numbness (LLE). No: Headache Hematologic/Lymphatic: No: Symptoms Reported All Other Systems: Reviewed and Negative <Main Dia - Last Filed: 01/10/19 01:53> *Physical Exam - Vital Signs Last Vital Signs Temp Pulse Resp BP Pulse Ox 98.0 F 104 H 16 112/74 95 01/09/19 15:51 01/09/19 15:51 01/09/19 15:51 01/09/19 15:51 01/09/19 15:51 <Ana Vaca - Last Filed: 01/09/19 20:07> - Vital Signs Last Vital Signs Temp Pulse Resp BP Pulse Ox 98.0 F 104 H 16 112/74 95 01/09/19 15:51 01/09/19 15:51 01/09/19 15:51 01/09/19 15:51 01/09/19 15:51 - Physical Exam General Appearance: Yes: Nourished, Appropriately Dressed. No: Apparent Distress HEENT: positive: EOMI, Normal Voice, Symmetrical, Hearing Grossly Normal, Thrush , Other (L eye irregular shaped pupil, equally reactive). negative: Pharyngeal Erythema, Tonsillar Exudate Neck: positive: Supple. negative: Tender, Decreased range of motion, Lymphadenopathy (R), Lymphadenopathy (L) Respiratory/Chest: positive: Lungs Clear, Normal Breath Sounds. negative: Respiratory Distress, Accessory Muscle Use, Crackles, Rales, Rhonchi Cardiovascular: positive: Regular Rhythm, Regular Rate. negative: Murmur Gastrointestinal/Abdominal: positive: Normal Bowel Sounds, Tender, Flat, Soft, Other (PEG placed in LMQ, appears patent with some detrius at base, no signs on infection, abdomen non-tender). negative: Organomegaly, Guarding, Rebound Musculoskeletal: positive: Normal Inspection. negative: CVA Tenderness Extremity: positive: Normal Capillary Refill, Normal Inspection. negative: Tender Integumentary: positive: Normal Color, Dry, Warm Neurologic: positive: Fully Oriented, Alert, Normal Mood/Affect, Normal Response , Numbness (LLE numbness, RLE grossly normal) <IfeomaMain - Last Filed: 01/10/19 01:53> ED Treatment Course - LABORATORY CBC & Chemistry Diagram: 01/09/19 17:55 01/09/19 17:55 - ADDITIONAL ORDERS Additional order review: Laboratory Results 01/09/19 01/09/19 17:55 17:55 PT with INR 12.40 INR 1.05 Sodium 144 Potassium 3.8 Chloride 109 H Carbon Dioxide 23 Anion Gap 12 BUN 24.3 H Creatinine 1.3 Est GFR (CKD-EPI)AfAm 62.74 Est GFR (CKD-EPI)NonAf 54.13 Random Glucose 126 H Calcium 9.6 Total Bilirubin 1.0 AST 42 H ALT 53 Alkaline Phosphatase 166 H Total Protein 7.0 Albumin 3.7 01/09/19 17:55 RBC 3.61 L MCV 106.0 H D MCHC 32.5 RDW 20.5 H MPV 9.2 Neutrophils % 74.5 D Lymphocytes % 14.9 D Monocytes % 9.1 Eosinophils % 0.7 Basophils % 0.8 - Medications Given in the ED: ED Medications Discontinued Medications Generic Name Dose Route Start Last Admin Trade Name Freq PRN Reason Stop Dose Admin Sodium Chloride 1,000 ml 01/09/19 17:21 01/09/19 18:53 Normal Saline - IV 01/09/19 17:22 1,000 ml ONCE ONE Administration <Ana Vaca - Last Filed: 01/09/19 20:07> - LABORATORY CBC & Chemistry Diagram: 01/09/19 17:55 01/09/19 17:55 <Main Dia - Last Filed: 01/10/19 01:53> Medical Decision Making - Medical Decision Making 01/09/19 17:03 Michael Rachel is a 73M with PMH chronic inflammatory demyelinating polyneuropathy w/ baseline dysphagia s/p PEG placement 11/2018 and LLE numbness, as well as stage IV CA s/p central line infection, presenting with difficulty using G-tube and 2 days of no food or medications by PEG. Patient has no complaints at this time other than hunger/thirst. Will contact [facility] for further clarification of dietary regimen and discharge plan. In the meantime, will evaluate lytes and coagulation status via: ECG for afib w/o metoprolol 48 hours CBC CMP Coags 01/09/19 17:53 Contacted [facility], feeding is: Isosource 1.5 @ 70mL/hr starting at 6PM until complete, with 200mL water flush before and after. 200mL water flush q8hr. All medications given via G tube as well. Per dietary, a pump is needed and Isosource not available in hospital. Awaiting callback from dietary Gita Lui for further planning. 01/09/19 18:26 ECG sinus tachycardia with PACs, otherwise normal. 01/09/19 18:46 CMP shows BUN and Cr elevation but at baseline. Unable to get into contact with dietary. Patient getting IVF and labs WNL, but unable to send home without a plan for tube feedings, requires dietary consult, tube feeding overnight, medication administration, and discharge planning. 01/09/19 19:19 Spoke to Gita Lui, recommends Jevity 1.5 25mL/hr, but patient needs further evaluation by dietary but cannot evaluate in ED, needs to be on floor. 01/09/19 20:11 Discussed admission plan with patient, patient agrees. Discussed admission to Obs with Dr. Man. Per DOROTEO Cannon, needs admission under Dr. Kristal Cannon, changed order appropriately. Kangaroo pump and Jevity running with patient, tolerating well. <Main Dia - Last Filed: 01/10/19 01:53> *DC/Admit/Observation/Transfer <Ana Vaca - Last Filed: 01/09/19 20:07> <Main Dia - Last Filed: 01/10/19 01:53> Diagnosis at time of Disposition: PEG tube malfunction, CIDP (chronic inflammatory demyelinating polyneuropathy) , Dehydration, Colon cancer metastasized to liver, Noncompliance with medication regimen Dysphagia Qualifiers: Dysphagia type: unspecified Qualified Code(s): R13.10 - Dysphagia, unspecified Malnutrition Qualifiers: Malnutrition type: unspecified type Qualified Code(s): E46 - Unspecified protein-calorie malnutrition
--- NOTE | 2019-01-09 17:17 | PDOC ---
Attending Attestation - Resident Resident Name: Main Dia - ED Attending Attestation I have performed the following: I have examined & evaluated the patient, The case was reviewed & discussed with the resident, I agree w/resident's findings & plan, Exceptions are as noted - HPI HPI: 01/09/19 17:25 73-year-old male presents because the nursing agency who is supposed to be following him as an outpatient states that they cannot provide any feedings. He has not had any medications ,feedings or fluids since Wednesday when he was discharged from [facility]. HPI a history of dysphasia and is a swallowing risk and therefore his G-tube is used for his fluids, medications and feedings. He was at our hospital until December 09 and then sent to [facility] for rehabilitation. Past medical history chronic inflammatory demyelinating myositis,stage 4 colon cancer, (multiple myeloma in remission) - Physicial Exam PE: 01/09/19 18:45 73 yo male comes because he has had no fluids or feedings since his Wednesday discharge from the group home . The visiting nurse from the agency stated they cannot do his feedings head ncat dry mucus membranes lungs cta b/l abd g tube intact skin sry neuro alert - Medical Decision Making 01/09/19 18:04 Dietary extension 07/21/2007 and they referred me to Gita Lui. We paged but did not get a call back. Dietary states that we don't have Isosource were trying to find an equivalent. The regimen at the group home was Isosource 1.5 and 70 mL's an hour starting at 6 PM until completed. There is water flush of before meals 200 mL and after the feeding there is another 200 mL flush. He also gets 200 mL of water, every 8 hours thru the g tube 01/09/19 18:47 I have not been able to reach the marine engine machinist to find a substitute for ISOSOURCE 1.5 which dietary told me the hospital does not carry but have not had my calls returned 01/09/19 18:50 pt appears dehydrated and bun iselevated plan give IV fluids,medications and will continue to try to get him his tube feedings 01/09/19 19:39 Territory Supervisor Gita Lui recommended Jevity and pt needs hospital admission for IV fluids .,medications and to set up a responsible plan for this pt to receive tube feedings,fluids and med at home
[2019-01-09] MEDS ORDERED: SODIUM CHLORIDE 0.9% 500 ML INFUS.BAG IV ONE (17:21)
[2019-01-09 18:11] LABS: BASO % 0.8 % (0-2.0); EOS % 0.7 % (0-4.5); HEMATOCRIT 38.3 % (35.4-49); HEMOGLOBIN 12.4 GM/dL (11.7-16.9); LYMPH % 14.9 % (8-40); MCH 34.4 pg (25.7-33.7); MCHC 32.5 g/dl (32.0-35.9); MEAN PLT VOLUME 9.2 fl (7.5-11.1); MONO % 9.1 % (3.8-10.2); NEUT % 74.5 % (42.8-82.8); PLATELET COUNT 138 K/MM3 (134-434); RBC 3.61 M/mm3 (4.00-5.60); RDW 20.5 % (11.9-15.9); WHITE BLOOD COUNT 8.5 K/mm3 (4.0-10.0)
[2019-01-09 18:27] LABS: INR 1.05 (0.83-1.09); PROTHROMBIN TIME (PATIENT) 12.4 SEC (9.7-13.0)
[2019-01-09 18:40] LABS: ALBUMIN 3.7 g/dl (3.4-5.0); BLOOD UREA NITROGEN 24.3 mg/dL (7-18); CALCIUM 9.6 mg/dL (8.5-10.1); CREATININE 1.3 mg/dL (0.55-1.3); POTASSIUM 3.8 mmol/L (3.5-5.1)
--- NOTE | 2019-01-09 19:54 | HP ---
Admitting History and Physical - Primary Care Physician PCP: Dr. Cannon - Admission Chief Complaint: G-tube (needs assistance /education) History of Present Illness: 73M with PMhx of Chronic Inflammatory Demyelinating Polyneuropathy (CIDP) with baseline dysphasia , colon CA with mets to liver/gallbladder, multiple myeloma, and IDDM, s/p peg tube placement 11/2018 arrived to ED today due to difficulty with using G-tube at home after being discharges from [facility], has been NPO without feeds and medication for 2 days. Patient does not know what feeds he took at [facility]. [facility] from [facility] for central line infection. At the [facility] never received instruction no how to use the PEG tube nor were nurse visiting services set up. Patientm does complain of some nausea, however denies Vomting, fever, headache, dizziness, CP/ SOB. 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), GERD, Other (Schatzki ring dilated 04/30/17) Hepatobiliary: Yes: Other (colon cancer metastases, fatty liver) Heme/Onc: Yes: Anemia Infectious Disease: Yes: C-Diff, MRSA (CVP port) Psych: Yes: Addictions (recovering alcoholic since 1982), Depression Musculoskeletal: Yes: Chronic low back pain, Osteoarthritis, Other (h/o steroid induced myositis) Rheumatology: Yes: Gout Endocrine: Yes: Diabetes Mellitus - Past Surgical History Past Surgical History: Yes: Arthrosocopy (left knee), Cataract Removal ( bilateral), Colectomy (extended right hemicolectomy for transverse colon cancer with umbilical hernia repair& MARY ANNE 12/06/17- Dr Ribeiro ), Colonoscopy, Hernia Repair (umbilical hernia repair with right hemicolectomy), Tonsillectomy - Smoking History Smoking history: Unknown if ever smoked Have you smoked in the past 12 months: No If you are a former smoker, when did you quit?: 1975 - Alcohol/Substance Use Hx Alcohol Use: No History of Substance Use: reports: None - Social History Usual Living Arrangement: Yes: With Spouse ADL: Independent 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 History of Recent Travel: No Home Medications - Allergies Allergies/Adverse Reactions: Allergies Allergy/AdvReac Type Severity Reaction Status Date / Time No Known Allergies Allergy Verified 11/30/18 15:19 - Home Medications Home Medications: Ambulatory Orders Gabapentin 400 mg PO BID 10/04/16 Allopurinol 300 mg PO DAILY 10/21/17 oxyCODONE HCL [Roxicodone -] 10 mg PO Q4H PRN #30 tablet MDD 4 10/11/18 Metoprolol Tartrate 12.5 mg PO BID #60 tablet 10/13/18 Nystatin 1 each MC DAILY 10/21/18 Zinc Oxide 20% Topical Oint 454 gm NR DAILY 10/21/18 Doxycycline Hyclate [Vibramycin -] 100 mg PO BID@1000,1800 capsule 11/23/18 Guaifenesin [Robitussin -] 10 ml PO Q4H PRN cup 11/23/18 Insulin Sliding Scale [Novolog Vial Sliding Scale -] 1 vial SQ ACHS units 11/23 oxyCODONE SR [Oxycontin] 10 mg PO BID #30 tab.er.12h MDD 2 11/23/18 Apixaban [Eliquis] 5 mg PO BID #30 tablet 12/09/18 Cyanocobalamin [Vitamin B12 -] 2,500 mcg GT DAILY tablet 12/09/18 Metoclopramide Oral Soln [Reglan Oral Solution -] 10 mg GT Q6H udc 12/09/18 Ranitidine Oral Solution [Zantac Oral Solution -] 150 mg PEG BID cup 12/09/18 Family Medical History Family Hx Cancer: Mother, Father, Brother (mother ( leukemia),father (lung ca), brother (colon ca)) Review of Systems - Review of Systems Constitutional: reports: No Symptoms Eyes: reports: No Symptoms HENT: reports: Difficult Swallowing Neck: reports: No Symptoms Cardiovascular: reports: No Symptoms Respiratory: reports: No Symptoms Gastrointestinal: reports: Nausea Genitourinary: reports: No Symptoms Musculoskeletal: reports: No Symptoms Integumentary: reports: No Symptoms Neurological: reports: No Symptoms Endocrine: reports: No Symptoms Hematology/Lymphatic: reports: No Symptoms Physical Examination Vital Signs: Vital Signs Temperature 98.0 F 01/09/19 15:51 Pulse Rate 104 H 01/09/19 15:51 Respiratory Rate 16 01/09/19 15:51 Blood Pressure 112/74 01/09/19 15:51 O2 Sat by Pulse Oximetry (%) 95 01/09/19 15:51 Constitutional: Yes: No Distress, Calm Eyes: Yes: Conjunctiva Clear, EOM Intact HENT: Yes: Atraumatic, Normocephalic Neck: Yes: Supple, Trachea Midline Cardiovascular: Yes: Regular Rate and Rhythm Respiratory: Yes: Regular, CTA Bilaterally Gastrointestinal: Yes: Normal Bowel Sounds, Soft Neurological: Yes: Alert, Oriented Labs: CBC, BMP 01/09/19 17:55 01/09/19 17:55 Imaging - Results Other: Report Reviewed (CMP: shows BUN and Cr elevation ( 24.3/1.3 )but at baseline.) Problem List - Problems (1) Dehydration Code(s): E86.0 - DEHYDRATION (2) Noncompliance with medication regimen Code(s): Z91.14 - PATIENT'S OTHER NONCOMPLIANCE WITH MEDICATION REGIMEN (3) Dysphagia Code(s): R13.10 - DYSPHAGIA, UNSPECIFIED Qualifiers: Dysphagia type: unspecified Qualified Code(s): R13.10 - Dysphagia, unspecified (4) Atrial fibrillation Code(s): I48.91 - UNSPECIFIED ATRIAL FIBRILLATION Qualifiers: Atrial fibrillation type: unspecified Qualified Code(s): I48.91 - Unspecified atrial fibrillation (5) CIDP (chronic inflammatory demyelinating polyneuropathy) Code(s): G61.81 - CHRONIC INFLAMMATORY DEMYELINATING POLYNEURITIS (6) Colon cancer metastasized to liver Code(s): C18.9 - MALIGNANT NEOPLASM OF COLON, UNSPECIFIED; C78.7 - SECONDARY MALIG NEOPLASM OF LIVER AND INTRAHEPATIC BILE DUCT (7) Diabetes mellitus Code(s): E11.9 - TYPE 2 DIABETES MELLITUS WITHOUT COMPLICATIONS Qualifiers: Diabetes mellitus type: type 2 Diabetes mellitus retirement insulin use: without retirement use Diabetes mellitus complication status: without complication Qualified Code(s): E11.9 - Type 2 diabetes mellitus without complications (8) GERD (gastroesophageal reflux disease) Code(s): K21.9 - GASTRO-ESOPHAGEAL REFLUX DISEASE WITHOUT ESOPHAGITIS (9) Gout Code(s): M10.9 - GOUT, UNSPECIFIED (10) HTN (hypertension) Code(s): I10 - ESSENTIAL (PRIMARY) HYPERTENSION Qualifiers: Hypertension type: unspecified Qualified Code(s): I10 - Essential (primary ) hypertension Assessment/Plan 73M with PMhx of Chronic Inflammatory Demyelinating Polyneuropathy (CIDP) with baseline dysphasia , colon CA with mets to liver/gallbladder, multiple myeloma, and IDDM, s/p peg tube placement 11/2018 arrived to ED today due to difficulty with using G-tube at home. # Pre-renal Azotemia # Dysphagia # Noncompliance with medication - s/p 1 L NS in ED - NPO - as per dietary start Jevity 1.5 25mL/hr - dietary to follow in Am ( pt needs education on peg use) - Elevate HOB during feeds - Aspiration precaution # A-fib/HTN - continue with Eliquis 5mg BID - Continue with metoprolol 12.5 mg BID # GOUT - continue with Allopurinol 300mg po daily #DM - monitor FSBS BID - coverage with sliding scale #GERD -Continue with Zantax 150 mg BID # Chronic Inflammatory Demyelinating Polyneuropathy (CIDP) - continue with Gabapentin 400 mg PO BID - Pain management in place - safety/fall precaution Visit type - Emergency Visit Emergency Visit: Yes Care time: The patient presented to the Emergency Department on the above date and was hospitalized for further evaluation of their emergent condition. - New Patient This patient is new to me today: Yes Date on this admission: 01/09/19 - Critical Care Critical Care patient: No
[2019-01-09] MEDS ORDERED: oxyCODONE HCL 5 MG TABLET PEG PRN (20:22)
[2019-01-09 21:53] LABS: ANISOCYTOSIS 2+; MACROCYTOSIS 0; PLATELET ESTIMATE DECREASED; TEAR DROP CELLS 1+
[2019-01-10] MEDS: APIXABAN 5 MG TABLET PEG SCH ×3 (00:11→22:00)
[2019-01-10] MEDS: RANITIDINE HCL 150 MG/10 ML UNIT-DOSE PEG SCH ×3 (00:11→21:59)
[2019-01-10] MEDS: METOPROLOL TARTRATE 25 MG TABLET (FP) PEG SCH ×3 (00:12→21:59)
[2019-01-10] MEDS: GABAPENTIN 250 MG/5 ML ORAL SOLUTION, 470 ML BOTTLE PO SCH ×3 (00:12→22:09)
[2019-01-10] MEDS: INSULIN SLIDING SCALE (NOVOLOG) 1 VIAL SQ SCH ×2 (06:08→16:48)
[2019-01-10 07:56] LABS: BLOOD UREA NITROGEN 21.7 mg/dL (7-18); CALCIUM 8.9 mg/dL (8.5-10.1); CREATININE 1.1 mg/dL (0.55-1.3); POTASSIUM 3.5 mmol/L (3.5-5.1)
[2019-01-10] MEDS ORDERED: PT OWN MED DRAWER 7, Y5N ONE ×2 (10:57→21:25)
--- NOTE | 2019-01-10 10:59 | EKG ---
Test Reason : Blood Pressure : / mmHG Vent. Rate : 109 BPM Atrial Rate : 109 BPM P-R Int : 150 ms QRS Dur : 090 ms QT Int : 374 ms P-R-T Axes : 023 -12 032 degrees QTc Int : 503 ms SINUS TACHYCARDIA WITH PREMATURE ATRIAL COMPLEXES OTHERWISE NORMAL ECG WHEN COMPARED WITH ECG OF 30-NOV-2018 20:49, PREMATURE ATRIAL COMPLEXES ARE NOW PRESENT NONSPECIFIC T WAVE ABNORMALITY, IMPROVED IN INFERIOR LEADS NONSPECIFIC T WAVE ABNORMALITY NO LONGER EVIDENT IN LATERAL LEADS QT HAS LENGTHENED Confirmed by Nicho Anand ([id number]) on 01/10/2019 10:59:49 AM Referred By: Confirmed By:Nicho Anand
[2019-01-10] MEDS: ALLOPURINOL 300 MG TABLET (FP) PEG SCH (11:20)
--- NOTE | 2019-01-10 12:01 | PN ---
Progress Note (short form) - Note Progress Note: Events noted DC from rehab -- ambulates with walker per pt unable to give himself feeding via GT does not know either has diarrhea with Jevity Vital Signs - 24 hr 01/09/19 01/09/19 01/09/19 15:51 20:53 21:02 Temperature 98.0 F 98.5 F 98.1 F Pulse Rate 104 H Pulse Rate [ 89 59 L Left Radial] Respiratory 16 19 Rate Blood Pressure 112/74 Blood Pressure 126/78 92/45 L [Right Arm] O2 Sat by Pulse 95 98 96 Oximetry (%) 01/09/19 01/10/19 23:42 05:00 Temperature 98.9 F 98.2 F Pulse Rate 75 84 Pulse Rate [ Left Radial] Respiratory 18 18 Rate Blood Pressure 132/66 108/52 L Blood Pressure [Right Arm] O2 Sat by Pulse 96 Oximetry (%) Current Medications Generic Name Dose Route Start Last Admin Trade Name Freq PRN Reason Stop Dose Admin Allopurinol 300 mg 01/10/19 10:00 01/10/19 11:20 Zyloprim - PEG 300 mg DAILY JAMIE Administration Apixaban 5 mg 01/09/19 22:00 01/10/19 11:19 Eliquis - PEG 5 mg BID JAMIE Administration Gabapentin 400 mg 01/09/19 22:00 01/10/19 11:19 Neurontin Oral Liquid - PO 400 mg BID JAMIE Administration Insulin Aspart 1 vial 01/10/19 07:00 01/10/19 06:08 Novolog Vial Sliding Scale - SQ Not Given BIDAC [facility] Protocol Metoprolol Tartrate 12.5 mg 01/09/19 22:00 01/10/19 11:19 Lopressor - PEG 12.5 mg BID JAMIE Administration Oxycodone HCl 10 mg 01/09/19 20:22 Roxicodone - PEG Q4H PRN PAIN LEVEL 6-10 Ranitidine HCl 150 mg 01/09/19 22:00 01/10/19 11:19 Zantac Oral Solution - PEG 150 mg BID JAMIE Administration Laboratory Results - last 24 hr 01/09/19 01/09/19 01/09/19 17:55 17:55 17:55 WBC 8.5 RBC 3.61 L Hgb 12.4 Hct 38.3 D MCV 106.0 H D MCH 34.4 H MCHC 32.5 RDW 20.5 H Plt Count 138 D MPV 9.2 Absolute Neuts (auto) 6.3 Neutrophils % 74.5 D Lymphocytes % 14.9 D Monocytes % 9.1 Eosinophils % 0.7 Basophils % 0.8 Nucleated RBC % 0 Hypochromia 0 Platelet Estimate Decreased Platelet Comment Present Polychromasia 1+ Poikilocytosis 1+ Anisocytosis 2+ Microcytosis 1+ Macrocytosis 0 Spherocytes 1+ Tear Drop Cells 1+ PT with INR 12.40 INR 1.05 PTT (Actin FS) Sodium 144 Potassium 3.8 Chloride 109 H Carbon Dioxide 23 Anion Gap 12 BUN 24.3 H Creatinine 1.3 Est GFR (CKD-EPI)AfAm 62.74 Est GFR (CKD-EPI)NonAf 54.13 POC Glucometer Random Glucose 126 H Calcium 9.6 Total Bilirubin 1.0 AST 42 H ALT 53 Alkaline Phosphatase 166 H Total Protein 7.0 Albumin 3.7 01/09/19 01/10/19 01/10/19 20:30 06:06 06:30 WBC RBC Hgb Hct MCV MCH MCHC RDW Plt Count MPV Absolute Neuts (auto) Neutrophils % Lymphocytes % Monocytes % Eosinophils % Basophils % Nucleated RBC % Hypochromia Platelet Estimate Platelet Comment Polychromasia Poikilocytosis Anisocytosis Microcytosis Macrocytosis Spherocytes Tear Drop Cells PT with INR INR PTT (Actin FS) 32.9 Sodium 144 Potassium 3.5 Chloride 113 H Carbon Dioxide 22 Anion Gap 9 BUN 21.7 H Creatinine 1.1 Est GFR (CKD-EPI)AfAm 76.78 Est GFR (CKD-EPI)NonAf 66.24 POC Glucometer 131 Random Glucose 127 H Calcium 8.9 Total Bilirubin AST ALT Alkaline Phosphatase Total Protein Albumin S1 S2 RRR Lungs clear Abd- soft ,NT,GT No edema sick appearing PLAN change GT feeds Nutrition eval continue with meds via GT PT eval while here in hospital Problem List - Problems (1) CIDP (chronic inflammatory demyelinating polyneuropathy) Code(s): G61.81 - CHRONIC INFLAMMATORY DEMYELINATING POLYNEURITIS (2) Colon cancer metastasized to liver Code(s): C18.9 - MALIGNANT NEOPLASM OF COLON, UNSPECIFIED; C78.7 - SECONDARY MALIG NEOPLASM OF LIVER AND INTRAHEPATIC BILE DUCT (3) Dehydration Code(s): E86.0 - DEHYDRATION (4) Malnutrition Code(s): E46 - UNSPECIFIED PROTEIN-CALORIE MALNUTRITION Qualifiers: Malnutrition type: unspecified type Qualified Code(s): E46 - Unspecified protein-calorie malnutrition (5) Anemia Code(s): D64.9 - ANEMIA, UNSPECIFIED Qualifiers: Anemia type: unspecified type Qualified Code(s): D64.9 - Anemia, unspecified (6) Atrial fibrillation Code(s): I48.91 - UNSPECIFIED ATRIAL FIBRILLATION Qualifiers: Atrial fibrillation type: unspecified Qualified Code(s): I48.91 - Unspecified atrial fibrillation
[2019-01-10 13:01] VITALS: BMI 25.2
[2019-01-11] MEDS: INSULIN SLIDING SCALE (NOVOLOG) 1 VIAL SQ SCH (06:12)
[2019-01-11] MEDS: APIXABAN 5 MG TABLET PEG SCH (10:35)
[2019-01-11] MEDS: ALLOPURINOL 300 MG TABLET (FP) PEG SCH (10:35)
[2019-01-11] MEDS: METOPROLOL TARTRATE 25 MG TABLET (FP) PEG SCH (10:35)
[2019-01-11] MEDS: GABAPENTIN 250 MG/5 ML ORAL SOLUTION, 470 ML BOTTLE PO SCH (10:36)
[2019-01-11] MEDS: RANITIDINE HCL 150 MG/10 ML UNIT-DOSE PEG SCH (10:36)
[2019-01-11] MEDS ORDERED: ACETAMINOPHEN 650 MG/20.3 ML ORAL SOLUTION (CUPS) PO PRN (11:36)
--- NOTE | 2019-01-11 11:36 | DS ---
Physical Examination Vital Signs: Vital Signs Temperature 97.6 F 01/11/19 10:33 Pulse Rate 72 01/11/19 10:33 Respiratory Rate 20 01/11/19 10:33 Blood Pressure 110/58 L 01/11/19 10:33 O2 Sat by Pulse Oximetry (%) 100 01/10/19 21:00 Constitutional: Yes: No Distress, Calm Cardiovascular: Yes: Regular Rate and Rhythm Respiratory: Yes: CTA Bilaterally Gastrointestinal: Yes: Normal Bowel Sounds, Soft. No: Tenderness Edema: No Labs: CBC, BMP 01/09/19 17:55 01/10/19 06:30 Discharge Summary Problems reviewed: Yes Reason For Visit: DYSPHAGIA, MALNUTRITION ,DEHYDRATION Current Active Problems CIDP (chronic inflammatory demyelinating polyneuropathy) (Acute) Colon cancer metastasized to liver (Acute) Dehydration (Acute) Dysphagia (Acute) Malnutrition (Acute) Noncompliance with medication regimen (Acute) PEG tube malfunction (Acute) Hospital Course: Admitted as he and his were not able to manage the feeding tube and supplies He was dc from rehab and did not get proper instruction per pt Here he was started on GT feeding he is unable to get PO feeds tolerating osmolyte and pt taught by staff here on to use the feeding tube , how to give meds social worker health services and case management has contacted the company that provides the supplies-- they are all in the house-- they will come to the house to set it up after he is dc from hospital stable for dc home Condition: Good - Instructions Disposition: HOME - Home Medications Comprehensive Discharge Medication List: Ambulatory Orders Gabapentin 400 mg PO BID 10/04/16 Allopurinol 300 mg PO DAILY 10/21/17 oxyCODONE HCL [Roxicodone -] 10 mg PO Q4H PRN #30 tablet MDD 4 10/11/18 Metoprolol Tartrate 12.5 mg PO BID #60 tablet 10/13/18 Nystatin 1 each MC DAILY 10/21/18 Zinc Oxide 20% Topical Oint 454 gm NR DAILY 10/21/18 Doxycycline Hyclate [Vibramycin -] 100 mg PO BID@1000,1800 capsule 11/23/18 Guaifenesin [Robitussin -] 10 ml PO Q4H PRN cup 11/23/18 Insulin Sliding Scale [Novolog Vial Sliding Scale -] 1 vial SQ ACHS units 11/23 oxyCODONE SR [Oxycontin] 10 mg PO BID #30 tab.er.12h MDD 2 11/23/18 Apixaban [Eliquis] 5 mg PO BID #30 tablet 12/09/18 Cyanocobalamin [Vitamin B12 -] 2,500 mcg GT DAILY tablet 12/09/18 Metoclopramide Oral Soln [Reglan Oral Solution -] 10 mg GT Q6H udc 12/09/18 Ranitidine Oral Solution [Zantac Oral Solution -] 150 mg PEG BID cup 12/09/18
[2019-01-11 15:11] VITALS: BP 106/60; PULSE 75; TEMP 97.8
== END 2019-01-11 16:20 | disposition home health service (06) | DRG 641 ==
LOC: JER 15:34 → JERBED 19:02 → J7W 21:49 → OBSVTOIN 22:32
PROVIDERS: ADMIT Internal Medicine; ATTEND Internal Medicine
PROC: 3E0G76Z Introduction of Nutritional Substance into Upper GI, Via Natural or Artificial Opening (ICD-10-PCS; principal; 2019-01-09)
DX: E86.0 Dehydration (principal); G61.81 Chronic inflammatory demyelinating polyneuritis; E46 Unspecified protein-calorie malnutrition; C18.9 Malignant neoplasm of colon, unspecified; C78.7 Secondary malignant neoplasm of liver and intrahepatic bile duct; C78.89 Secondary malignant neoplasm of other digestive organs; C90.00 Multiple myeloma not having achieved remission; Z91.14 Patient's other noncompliance with medication regimen; E11.9 Type 2 diabetes mellitus without complications; K21.9 Gastro-esophageal reflux disease without esophagitis; M10.9 Gout, unspecified; I48.91 Unspecified atrial fibrillation; R19.7 Diarrhea, unspecified; D64.9 Anemia, unspecified; R13.10 Dysphagia, unspecified; R79.89 Other specified abnormal findings of blood chemistry; Z93.1 Gastrostomy status; Z79.4 Long term (current) use of insulin
CPT/HCPCS: 36415; 80048; 80053; 82962; 85025; 85610; 85730; 93005; 93010; 97116-GP; 97161-GP; 99283-25; G0378

== ENCOUNTER → 2019-01-20 | Day surgery (SDC) | payer OTHER | END | disposition home or self-care (01) | LOC: JRADIR 12:18 | PROVIDERS: ATTEND Radiology Diagnostic Radiology | PROC: 0D20XUZ Change Feeding Device in Upper Intestinal Tract, External Approach (ICD-10-PCS; principal; 2019-01-20) | DX: K94.23 Gastrostomy malfunction (principal); Y83.8 Other surgical procedures as the cause of abnormal reaction of the patient, or of later complication, without mention of misadventure at the time of the procedure; Y73.3 Surgical instruments, materials and gastroenterology and urology devices (including sutures) associated with adverse incidents | CPT/HCPCS: 49450; 76000-TC-FY ==

== ENCOUNTER 2019-01-31 07:13 | Day surgery (SDC) | payer OTHER ==
[2019-01-31] MEDS ORDERED: ACETAMINOPHEN 325 MG TABLET (FP) PO ONE ×2 (09:30→12:30)
[2019-01-31] MEDS ORDERED: DIPHENHYDRAMINE 50 MG in SODIUM CHLORIDE 50 ML IVPB ONE (09:30)
[2019-01-31] MEDS ORDERED: [UNRECOGNIZED DRUG - OTHER] IVPB ONE (10:00)
[2019-01-31] MEDS ORDERED: IMMUNE GLOBULIN IVPB ONE (10:00)
[2019-01-31 10:53] LABS: BASO % 0.6 % (0-2.0); EOS % 1.3 % (0-4.5); HEMATOCRIT 35.7 % (35.4-49); HEMOGLOBIN 11.7 GM/dL (11.7-16.9); LYMPH % 12.9 % (8-40); MCH 35.1 pg (25.7-33.7); MCHC 32.7 g/dl (32.0-35.9); MEAN CELL VOLUME 107.6 fl (80-96); MEAN PLT VOLUME 9.8 fl (7.5-11.1); MONO % 8.8 % (3.8-10.2); NEUT % 76.4 % (42.8-82.8); PLATELET COUNT 131 K/MM3 (134-434); RBC 3.32 M/mm3 (4.00-5.60); RDW 17.7 % (11.9-15.9); WHITE BLOOD COUNT 9.4 K/mm3 (4.0-10.0)
[2019-01-31 11:21] LABS: ALBUMIN 3.7 g/dl (3.4-5.0); BILIRUBIN,TOTAL 0.7 mg/dL (0.2-1); CREATININE 1.4 mg/dL (0.55-1.3); MAGNESIUM 1.8 mg/dL (1.8-2.4); TOT PROT 6.9 g/dl (6.4-8.2); URIC ACID 4.8 mg/dL (2.6-7.2)
[2019-01-31 11:42] LABS: ANISOCYTOSIS 1+; MACROCYTOSIS 1+; PLATELET ESTIMATE DECREASED
[2019-01-31 13:48] VITALS: BP 110/70; PULSE 107; TEMP 97.2
== END 2019-01-31 16:47 | disposition home or self-care (01) ==
LOC: JONCCHEMO 07:13 → J7W 11:54 → JONCCHEMO 16:47
PROVIDERS: ATTEND Internal Medicine Hematology & Oncology
PROC: 3E033GC Introduction of Other Therapeutic Substance into Peripheral Vein, Percutaneous Approach (ICD-10-PCS; principal; 2019-01-31)
DX: Z76.89 Persons encountering health services in other specified circumstances (principal); C18.9 Malignant neoplasm of colon, unspecified; C78.7 Secondary malignant neoplasm of liver and intrahepatic bile duct; C90.01 Multiple myeloma in remission; E66.09 Other obesity due to excess calories; I10 Essential (primary) hypertension; I48.91 Unspecified atrial fibrillation; E11.9 Type 2 diabetes mellitus without complications; H40.9 Unspecified glaucoma; E78.00 Pure hypercholesterolemia, unspecified; M51.36 Other intervertebral disc degeneration, lumbar region; G62.9 Polyneuropathy, unspecified; Z86.73 Personal history of transient ischemic attack (TIA), and cerebral infarction without residual deficits
CPT/HCPCS: 36415; 80053; 82232; 82784; 83615; 83735; 84155; 84165; 84550; 85025; 86334; 96365; 96366; 96375; 96415; 96417; J1459

== ENCOUNTER 2019-03-07 07:19 | Day surgery (SDC) | payer OTHER ==
[2019-03-07] MEDS ORDERED: ACETAMINOPHEN 325 MG TABLET (FP) PO ONE (10:00)
[2019-03-07] MEDS ORDERED: DIPHENHYDRAMINE 50 MG in SODIUM CHLORIDE 50 ML IVPB ONE (10:00)
[2019-03-07] MEDS ORDERED: [UNRECOGNIZED DRUG - OTHER] IVPB ONE (10:30)
[2019-03-07] MEDS ORDERED: IMMUNE GLOBULIN IVPB ONE (10:30)
--- NOTE | 2019-03-07 17:12 | HP ---
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), GERD, Other (Schatzki ring dilated 04/30/17) Hepatobiliary: Yes: Other (colon cancer metastases, fatty liver) Heme/Onc: Yes: Anemia Infectious Disease: Yes: C-Diff, MRSA (CVP port) Psych: Yes: Addictions (recovering alcoholic since 1982), Depression Musculoskeletal: Yes: Chronic low back pain, Osteoarthritis, Other (h/o steroid induced myositis) Rheumatology: Yes: Gout Endocrine: Yes: Diabetes Mellitus - Past Surgical History Past Surgical History: Yes: Arthrosocopy (left knee), Cataract Removal ( bilateral), Colectomy (extended right hemicolectomy for transverse colon cancer with umbilical hernia repair& MARY ANNE 12/06/17- Dr Ribeiro ), Colonoscopy, Hernia Repair (umbilical hernia repair with right hemicolectomy), Tonsillectomy - Smoking History Smoking history: Unknown if ever smoked Have you smoked in the past 12 months: No If you are a former smoker, when did you quit?: 1975 - Alcohol/Substance Use Hx Alcohol Use: No History of Substance Use: reports: None - Social History ADL: Independent 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 History of Recent Travel: No Home Medications - Allergies Allergies/Adverse Reactions: Allergies Allergy/AdvReac Type Severity Reaction Status Date / Time No Known Allergies Allergy Verified 11/30/18 15:19 - Home Medications Home Medications: Ambulatory Orders Gabapentin 400 mg PO BID 10/04/16 Allopurinol 300 mg PO DAILY 10/21/17 oxyCODONE HCL [Roxicodone -] 10 mg PO Q4H PRN #30 tablet MDD 4 10/11/18 Metoprolol Tartrate 12.5 mg PO BID #60 tablet 10/13/18 Nystatin 1 each MC DAILY 10/21/18 Zinc Oxide 20% Topical Oint 454 gm NR DAILY 10/21/18 Doxycycline Hyclate [Vibramycin -] 100 mg PO BID@1000,1800 capsule 11/23/18 Guaifenesin [Robitussin -] 10 ml PO Q4H PRN cup 11/23/18 Insulin Sliding Scale [Novolog Vial Sliding Scale -] 1 vial SQ ACHS units 11/23 oxyCODONE SR [Oxycontin] 10 mg PO BID #30 tab.er.12h MDD 2 11/23/18 Apixaban [Eliquis] 5 mg PO BID #30 tablet 12/09/18 Cyanocobalamin [Vitamin B12 -] 2,500 mcg GT DAILY tablet 12/09/18 Metoclopramide Oral Soln [Reglan Oral Solution -] 10 mg GT Q6H udc 12/09/18 Ranitidine Oral Solution [Zantac Oral Solution -] 150 mg PEG BID cup 12/09/18 Assessment/Plan Patient seen and examined Myeloma- in remission - s/p stem cell transplant , chemotherpy Colon ca- s/p liver mets with resection S/P liver ablation MRSA sepsis CIDP- gamma globulin therapy BP--90/57 P-72 RR-18 T-98.2 HEENT: SAY, EOM Intact Oropharynx: No thrush, No mucositis Cor: RSR, No murmurs, No gallops Lungs: Clear to P&A Abd: Soft, Normal bowel sounds, No organomegaly PEG Ext:No significant edema Skin: No rashes, Integument intact Current Medications Generic Name Dose Route Start Last Admin Trade Name Freq PRN Reason Stop Dose Admin Immune Globulin 70 gm in 700 mls @ 25 mls/hr 03/07/19 10:30 03/07/19 13:46 Privigen 10% Vial IVPB 03/08/19 14:29 25 mls/hr ONCE ONE Administration Impression: CIDP Hypogammaglobulinemia Multiple myeloma Colon ca Plan Gamma globulin
[2019-03-07 18:00] VITALS: BP 113/62; PULSE 68; TEMP 98.3
[2019-03-07 19:29] LABS: BASO % 0.6 % (0-2.0); EOS % 2.7 % (0-4.5); HEMATOCRIT 29.7 % (35.4-49); HEMOGLOBIN 9.5 GM/dL (11.7-16.9); LYMPH % 20.5 % (8-40); MCH 34.4 pg (25.7-33.7); MEAN CELL VOLUME 107.3 fl (80-96); MEAN PLT VOLUME 9.7 fl (7.5-11.1); MONO % 13.3 % (3.8-10.2); NEUT % 62.9 % (42.8-82.8); PLATELET COUNT 91 K/MM3 (134-434); RBC 2.77 M/mm3 (4.00-5.60); RDW 17.3 % (11.9-15.9)
[2019-03-07 19:50] LABS: BILIRUBIN,TOTAL 1.4 mg/dL (0.2-1); BLOOD UREA NITROGEN 10.8 mg/dL (7-18); CALCIUM 8.6 mg/dL (8.5-10.1); CREATININE 1.2 mg/dL (0.55-1.3); MAGNESIUM 2.1 mg/dL (1.8-2.4); POTASSIUM 3.9 mmol/L (3.5-5.1)
[2019-03-07 22:56] LABS: ANISOCYTOSIS 1+; MACROCYTOSIS 1+; PLATELET ESTIMATE DECREASED; TEAR DROP CELLS 1+
== END 2019-03-07 18:12 | disposition home or self-care (01) ==
LOC: JONCCHEMO 07:19 → J7W 14:11 → JONCCHEMO 18:12
PROVIDERS: ATTEND Internal Medicine Hematology & Oncology
PROC: 3E033GC Introduction of Other Therapeutic Substance into Peripheral Vein, Percutaneous Approach (ICD-10-PCS; principal; 2019-03-07)
DX: G61.81 Chronic inflammatory demyelinating polyneuritis (principal); D80.1 Nonfamilial hypogammaglobulinemia; C78.7 Secondary malignant neoplasm of liver and intrahepatic bile duct; C90.01 Multiple myeloma in remission; C18.9 Malignant neoplasm of colon, unspecified; E11.9 Type 2 diabetes mellitus without complications; I48.91 Unspecified atrial fibrillation; Z79.4 Long term (current) use of insulin
CPT/HCPCS: 36415; 80053; 83735; 85025; 96365; 96366; 96375; J1459

== ENCOUNTER 2019-03-08 07:14 | Day surgery (SDC) | payer OTHER ==
[2019-03-08] MEDS ORDERED: ACETAMINOPHEN 325 MG TABLET (FP) PO ONE (10:00)
[2019-03-08] MEDS ORDERED: DIPHENHYDRAMINE 50 MG in SODIUM CHLORIDE 50 ML IVPB ONE (10:00)
[2019-03-08] MEDS ORDERED: [UNRECOGNIZED DRUG - OTHER] IVPB ONE (10:30)
[2019-03-08] MEDS ORDERED: IMMUNE GLOBULIN IVPB ONE (10:30)
[2019-03-08 15:18] VITALS: TEMP 97.6
[2019-03-08 15:20] VITALS: BP 115/55; PULSE 69
== END 2019-03-08 13:00 | disposition home or self-care (01) ==
LOC: JONCCHEMO 07:14 → J7W 09:27 → JONCCHEMO 13:00
PROVIDERS: ATTEND Internal Medicine Hematology & Oncology
PROC: 3E033GC Introduction of Other Therapeutic Substance into Peripheral Vein, Percutaneous Approach (ICD-10-PCS; principal; 2019-03-08)
PROC: 3E033GC Introduction of Other Therapeutic Substance into Peripheral Vein, Percutaneous Approach (ICD-10-PCS; 2019-03-08)
PROC: 3E013GC Introduction of Other Therapeutic Substance into Subcutaneous Tissue, Percutaneous Approach (ICD-10-PCS; 2019-03-08)
DX: Z76.89 Persons encountering health services in other specified circumstances (principal); C18.9 Malignant neoplasm of colon, unspecified; C78.7 Secondary malignant neoplasm of liver and intrahepatic bile duct; C90.01 Multiple myeloma in remission; D75.89 Other specified diseases of blood and blood-forming organs; G62.9 Polyneuropathy, unspecified; G61.81 Chronic inflammatory demyelinating polyneuritis; I48.91 Unspecified atrial fibrillation; I10 Essential (primary) hypertension; K21.9 Gastro-esophageal reflux disease without esophagitis; K76.0 Fatty (change of) liver, not elsewhere classified; Z79.4 Long term (current) use of insulin; Z86.73 Personal history of transient ischemic attack (TIA), and cerebral infarction without residual deficits; Z86.14 Personal history of Methicillin resistant Staphylococcus aureus infection; Z86.19 Personal history of other infectious and parasitic diseases
CPT/HCPCS: 96365; 96366; 96375; J1459

== ENCOUNTER 2019-05-15 07:14 | Day surgery (SDC) | payer OTHER ==
[2019-05-15 09:26] LABS: BASO % 0.9 % (0-2.0); EOS % 1.3 % (0-4.5); HEMATOCRIT 32.4 % (35.4-49); HEMOGLOBIN 10.6 GM/dL (11.7-16.9); LYMPH % 18.5 % (8-40); MCHC 32.9 g/dl (32.0-35.9); MEAN CELL VOLUME 103.5 fl (80-96); MEAN PLT VOLUME 7.8 fl (7.5-11.1); NEUT % 72.3 % (42.8-82.8); PLATELET COUNT 75 K/MM3 (134-434); RBC 3.13 M/mm3 (4.00-5.60); RDW 16.2 % (11.9-15.9); WHITE BLOOD COUNT 5.8 K/mm3 (4.0-10.0)
[2019-05-15] MEDS ORDERED: ACETAMINOPHEN 325 MG TABLET (FP) PO PRN (09:30)
[2019-05-15] MEDS ORDERED: DIPHENHYDRAMINE 50 MG in SODIUM CHLORIDE 50 ML IVPB ONE (09:30)
[2019-05-15 09:54] LABS: ALBUMIN 3.5 g/dl (3.4-5.0); BILIRUBIN,TOTAL 0.7 mg/dL (0.2-1); BLOOD UREA NITROGEN 15.5 mg/dL (7-18); CALCIUM 9.3 mg/dL (8.5-10.1); CREATININE 1.1 mg/dL (0.55-1.3); POTASSIUM 4.1 mmol/L (3.5-5.1); TOT PROT 7.2 g/dl (6.4-8.2)
[2019-05-15] MEDS ORDERED: IMMUN GLOB IVPB ONE (10:00)
[2019-05-15] MEDS ORDERED: PRO IVPB ONE (10:00)
[2019-05-15] MEDS ORDERED: [UNRECOGNIZED DRUG - OTHER] IVPB ONE (10:00)
[2019-05-15] MEDS ORDERED: IGA IVPB ONE (10:00)
[2019-05-15 16:22] VITALS: TEMP 97.3
[2019-05-15 16:24] VITALS: BP 109/61; PULSE 69
[2019-05-16 18:07] LABS: FREE KAPPA,SERUM 24.8 mg/L (3.3-19.4)
[2019-05-18 04:07] LABS: FREE KAP CHN UR 398.54 mg/L (0.63-113.79); KAPPA LAMBDA RATIO URIN 22.38 (1.03-31.76)
== END 2019-05-15 14:30 | disposition home or self-care (01) ==
LOC: JONCCHEMO 07:14 → J7W 10:35 → JONCCHEMO 14:30
PROVIDERS: ATTEND Internal Medicine Hematology & Oncology
PROC: 3E033GC Introduction of Other Therapeutic Substance into Peripheral Vein, Percutaneous Approach (ICD-10-PCS; principal; 2019-05-15)
DX: G61.81 Chronic inflammatory demyelinating polyneuritis (principal); G62.9 Polyneuropathy, unspecified; D80.1 Nonfamilial hypogammaglobulinemia; C90.01 Multiple myeloma in remission; E11.9 Type 2 diabetes mellitus without complications; I48.0 Paroxysmal atrial fibrillation; Z79.01 Long term (current) use of anticoagulants; Z85.038 Personal history of other malignant neoplasm of large intestine; C78.7 Secondary malignant neoplasm of liver and intrahepatic bile duct
CPT/HCPCS: 36415; 80053; 82784; 83735; 83883; 84155; 84165; 85025; 86335; 96365; 96366; 96375; J1459

== ENCOUNTER 2019-05-16 07:09 | Day surgery (SDC) | payer OTHER ==
[2019-05-16] MEDS ORDERED: ACETAMINOPHEN 325 MG TABLET (FP) PO PRN (09:30)
[2019-05-16] MEDS ORDERED: DIPHENHYDRAMINE 50 MG in SODIUM CHLORIDE 50 ML IVPB ONE (09:30)
[2019-05-16] MEDS ORDERED: IMMUN GLOB IVPB ONE (10:00)
[2019-05-16] MEDS ORDERED: [UNRECOGNIZED DRUG - OTHER] IVPB ONE (10:00)
[2019-05-16] MEDS ORDERED: IGA IVPB ONE (10:00)
[2019-05-16] MEDS ORDERED: PRO IVPB ONE (10:00)
[2019-05-16 13:08] LABS: BASO % 0.8 % (0-2.0); HEMATOCRIT 28.7 % (35.4-49); HEMOGLOBIN 9.3 GM/dL (11.7-16.9); LYMPH % 29.1 % (8-40); MCHC 32.5 g/dl (32.0-35.9); MEAN CELL VOLUME 104.4 fl (80-96); MEAN PLT VOLUME 9.3 fl (7.5-11.1); MONO % 9.4 % (3.8-10.2); NEUT % 58.7 % (42.8-82.8); PLATELET COUNT 66 K/MM3 (134-434); RBC 2.75 M/mm3 (4.00-5.60); RDW 16.5 % (11.9-15.9); WHITE BLOOD COUNT 2.9 K/mm3 (4.0-10.0)
[2019-05-16 13:43] LABS: BILIRUBIN,TOTAL 0.6 mg/dL (0.2-1); BLOOD UREA NITROGEN 15.4 mg/dL (7-18); CALCIUM 8.6 mg/dL (8.5-10.1); CREATININE 1.1 mg/dL (0.55-1.3); POTASSIUM 3.9 mmol/L (3.5-5.1); TOT PROT 7.8 g/dl (6.4-8.2)
[2019-05-16 16:23] VITALS: TEMP 98.2
[2019-05-16 16:24] VITALS: BP 121/67; PULSE 72
== END 2019-05-16 14:15 | disposition home or self-care (01) ==
LOC: JONCCHEMO 07:09 → J7W 09:48 → JONCCHEMO 14:15
PROVIDERS: ATTEND Internal Medicine Hematology & Oncology
PROC: 3E033GC Introduction of Other Therapeutic Substance into Peripheral Vein, Percutaneous Approach (ICD-10-PCS; principal; 2019-05-16)
DX: G61.81 Chronic inflammatory demyelinating polyneuritis (principal); G62.9 Polyneuropathy, unspecified; D80.1 Nonfamilial hypogammaglobulinemia; C90.01 Multiple myeloma in remission; C78.7 Secondary malignant neoplasm of liver and intrahepatic bile duct; E11.9 Type 2 diabetes mellitus without complications
CPT/HCPCS: 36415; 80053; 83735; 85025; 96365; 96366; 96375; J1459

== ENCOUNTER 2019-10-25 06:39 | Day surgery (SDC) | payer OTHER ==
[2019-10-19 14:32] VITALS: BMI 23.9
[2019-10-25 08:42] VITALS: TEMP 97.2
[2019-10-25 09:27] VITALS: BP 113/59; PULSE 58
--- NOTE | 2019-10-26 12:31 | PATH ---
Surgical Pathology Report Patient Name: CHANTELL CULP [facility]. Rec. #: [id number] /Age/Gender: 1945 (Age: 74) / M Account: [id number] Location: [facility]-ENDOSCOPY Taken: 10/25/2019 Received: 10/25/2019 Reported: 10/26/2019 Physicians: Kisha Fuller M.D. Specimen(s) Received ILEOCOLONIC ANASTAMOSIS Clinical History Colon cancer surveillance Postoperative diagnosis: Ileocolonic anastomosis Final Diagnosis ILEOCOLONIC ANASTOMOSIS, BIOPSY: SMALL INTESTINE /COLONIC TRANSITIONAL MUCOSA WITH FOCAL MILD NONSPECIFIC CHRONIC INFLAMMATION. NEGATIVE FOR MALIGNANCY. Electronically Signed Ángel Dunlap M.D. Gross Description Received in formalin, labeled "biopsy ileocolonic anastomosis" are 6 contreras, irregular portions of soft tissue averaging 0.3 cm. in greatest dimension. The specimens are submitted in toto in one cassette. 10/25/2019 saudi10/25/2019
== END 2019-10-25 09:38 | disposition home or self-care (01) ==
LOC: JASU-ENDO 06:39
PROVIDERS: ATTEND Internal Medicine Gastroenterology
PROC: 0DBL8ZX Excision of Transverse Colon, Via Natural or Artificial Opening Endoscopic, Diagnostic (ICD-10-PCS; principal; 2019-10-25 08:00)
DX: Z12.11 Encounter for screening for malignant neoplasm of colon (principal); Z86.010 Personal history of colon polyps; K64.8 Other hemorrhoids; K57.30 Diverticulosis of large intestine without perforation or abscess without bleeding; Z98.0 Intestinal bypass and anastomosis status; I10 Essential (primary) hypertension; I48.91 Unspecified atrial fibrillation
CPT/HCPCS: 88305-TC

== ENCOUNTER 2020-09-02 05:02 | Day surgery (SDC) | payer OTHER ==
[2020-08-27 17:32] VITALS: BMI 20.9
[2020-09-02 15:12] VITALS: BP 110/62; PULSE 69; TEMP 98.2
[2020-09-02 18:17] LABS: BF WBC & OTHER NUCLEATED CELLS 74 /mm3
[2020-09-02 18:57] LABS: BODY FLUID MONOCYTE 1 %; BODYL FLD EOSINOPHIL 1 %
[2020-09-04 17:06] LABS: BODY FLUID ALBUMIN 2.6 g/dL (Not Estab.)
== END 2020-09-02 15:10 | disposition home or self-care (01) ==
LOC: JRADIR 05:02
PROVIDERS: ATTEND Internal Medicine Hematology & Oncology
PROC: 0W993ZZ Drainage of Right Pleural Cavity, Percutaneous Approach (ICD-10-PCS; principal; 2020-09-02)
DX: J90 Pleural effusion, not elsewhere classified (principal)
CPT/HCPCS: 32555; 36415; 71046-TC-FY; 76942; 82042; 82150; 82465; 82945; 83615; 84157; 84478; 87070; 87075; 87102; 87116; 87205; 87206; 87210; 88108; 88305-TC

== ENCOUNTER 2021-11-14 06:21 | Day surgery (SDC) | payer OTHER ==
[2021-11-14] MEDS ORDERED: oxyCODONE HCL 5 MG TABLET PO PRN (09:43)
[2021-11-14] MEDS ORDERED: FUROSEMIDE 40 MG/4 ML INJECTABLE VIAL IVPUSH ONE ×2 (14:00→16:30)
[2021-11-14 22:01] LABS: HEMATOCRIT 30.6 % (35.4-49); HEMOGLOBIN 10.2 GM/dL (11.7-16.9); MCH 30.8 pg (25.7-33.7); MCHC 33.4 g/dl (32.0-35.9); MEAN CELL VOLUME 92.4 fl (80-96); MEAN PLT VOLUME 7.4 fl (7.5-11.1); PLATELET COUNT 143 10^3/uL (134-434); RBC 3.32 M/mm3 (4.00-5.60); RDW 17.8 % (11.9-15.9); WHITE BLOOD COUNT 7.1 K/mm3 (4.0-10.0)
[2021-11-15 06:37] VITALS: RESP 18
[2021-11-15 09:17] VITALS: BP 93/58; PULSE 80; TEMP 97.8
== END 2021-11-15 10:31 | disposition home or self-care (01) ==
LOC: JONCBLOOD 06:21 → J7W 09:30 → JONCBLOOD 11-15 10:31
PROVIDERS: ATTEND Internal Medicine Hematology & Oncology
PROC: 30233H1 Transfusion of Nonautologous Whole Blood into Peripheral Vein, Percutaneous Approach (ICD-10-PCS; principal; 2021-11-14)
DX: D64.9 Anemia, unspecified (principal)
CPT/HCPCS: 36415; 36430; 85027; 86850; 86900; 86901; 86922; P9058

== ENCOUNTER 2022-02-06 09:52 | Day surgery (SDC) | payer OTHER ==
[~2022-02-06 09:52] MED LIST changes: +ATROPINE SO4 0.4 MG/1 ML VIAL IVPUSH ONE; -BORTEZOMIB (VELCADE) 2.5 MG/ML SUB-Q INJECTION SQ ONE; +DEXAMETHASONE SODIUM PHOSPHATE 10 MG, ONDANSETRON INJECTION 8 MG in SODIUM CHLORIDE 100 ML IVPB ONE; +SODIUM CHLORIDE 250 ML IV ONE
[2022-02-06] MEDS ORDERED: BEVACIZUMAB-AWWB 400 MG, BEVACIZUMAB-AWWB 30 MG in SODIUM CHLORIDE 100 ML IVPB ONE (11:30)
[2022-02-06] MEDS ORDERED: IRINOTECAN HCL IVPB ONE (13:00)
[2022-02-06] MEDS ORDERED: DEXTROSE 5% IVPB ONE (13:00)
[2022-02-06] MEDS ORDERED: WATER IVPB ONE (13:00)
[2022-02-06 17:35] VITALS: BP 88/48; PULSE 91; RESP 18; TEMP 98.4
== END 2022-02-06 17:44 | disposition home or self-care (01) ==
LOC: JONCCHEMO 09:52
PROVIDERS: ATTEND Internal Medicine Hematology & Oncology
DX: Z51.11 Encounter for antineoplastic chemotherapy (principal); C18.8 Malignant neoplasm of overlapping sites of colon; C78.7 Secondary malignant neoplasm of liver and intrahepatic bile duct
CPT/HCPCS: 96367; 96375; 96413; 96417; J2405; J9206; Q5107